=== PATIENT | female | born 1955 | race Caucasian/White ===

== ENCOUNTER 2019-06-27 06:42 | Outpatient (CLI) | payer MEDICARE, MEDICAID, SELFPAY ==
[2019-06-27 07:17] LABS: Basophils Percent Auto 0.6 % (0.2-1.2); Eosinophils Absolute Auto 0.1 K/mm3 (0-0.3); Eosinophils Percent Auto 1.1 % (0-4.4); Hematocrit 44.3 % (37.0-47.0); Immature Granulocyte Absolute 0.09 K/mm3 (0.00-0.031); Immature Granulocyte Percent A 1.4 % (0-0.5); Lymphocytes Absolute Auto 0.95 K/mm3 (0.9-3.2); Lymphocytes Percent Auto 14.9 % (18.3-44.2); Mean Corpuscular HGB Conc 31.6 g/dl (32-36); Mean Corpuscular Hemoglobin 30.3 pg (26-34); Mean Corpuscular Volume 95.9 fl (80-100); Mean Platelet Volume 8.7 fl (7.4-10.4); Monocytes Absolute Auto 0.4 K/mm3 (0.1-0.6); Monocytes Percent Auto 6.9 % (2.6-8.5); Neutrophils Absolute Auto 4.8 K/mm3 (1.3-6.7); Neutrophils Percent Auto 75.1 % (45.5-73.1); Platelet Count Result 182 k/mm3 (150-375); Red Blood Count 4.62 M/mm3 (4.2-5.4); Red Cell Distribution Width 16.3 % (11.5-14.5); White Blood Count 6.4 K/mm3 (4.5-10.0)
[2019-06-27 07:30] LABS: Blood Urea Nitrogen 16 mg/dL (7-17); Calcium 9.2 mg/dL (8.4-10.2); Carbon Dioxide 32 mmol/L (22-30); Chloride 101 mmol/L (98-107); Estimated Glomerular Filt Rate 56; Glucose 109 mg/dL (65-105); Potassium 4.6 mmol/L (3.4-5.0); Sodium 139 mmol/L (137-145)
== END 2019-06-27 06:43 | disposition home or self-care (01) ==
PROVIDERS: PCP Internal Medicine; Visit Provider Nurse Practitioner
DX: I10 Essential (primary) hypertension (principal)
CPT/HCPCS: 36415; 80048; 85025

== ENCOUNTER 2019-06-30 12:05 | Outpatient (CLI) | payer MEDICARE, MEDICAID, SELFPAY ==
--- NOTE | 2019-06-30 | ECG_ITS ---
Measurements Intervals [place] Rate: 104 P: 79 NC: 202 QRS: 10 QRSD: 91 T: 78 QT: 355 QTc: 468 Interpretive Statements SINUS TACHYCARDIA VENTRICULAR PREMATURE COMPLEXES DELAYED PRECORDIAL R/S TRANSITION CONSIDER INFERIOR INFARCT, AGE INDETERMINATE BORDERLINE T WAVE ABNORMALITY- LATERAL LEADS BASELINE ARTIFACT- V4-V5 ABNORMAL ECG Electronically Signed On 06-30-2019 13:02:56 GRADES [address] D.O.
== END 2019-06-30 12:06 | disposition home or self-care (01) ==
LOC: ANHCARD 12:11
PROVIDERS: PCP Internal Medicine; Visit Provider Nurse Practitioner
DX: R00.0 Tachycardia, unspecified (principal); R94.31 Abnormal electrocardiogram [ECG] [EKG]
CPT/HCPCS: 93005

== ENCOUNTER 2019-07-07 15:49 | Emergency (ER) | payer MEDICARE, MEDICAID, SELFPAY ==
--- NOTE | ~2019-07-07 | XR_ITS ---
EXAMINATION: XR chest 2V EXAM DATE: 07/07/2019 16:26 INDICATION: Shortness of breath and cough. COPD. TECHNIQUE: Frontal and lateral projections of the chest obtained and reviewed. Comparison is made to prior examination from 12/26/2015. FINDINGS: Severe chronic hyperinflation. Cardiomediastinal silhouette is normal. No confluent consol idation, pneumothorax or pleural effusion suspected. Mild thoracic spondylosis. IMPRESSION: 1. Hyperinflation Reviewed, dictated and finalized at location A. PEEL OPERATOR IMPRESSION: 1. Hyperinflation
[2019-07-07 15:57] VITALS: BP 128/72; PULSE 112; RESP 19; TEMP 36.6; O2SAT 96
--- NOTE | 2019-07-07 16:05 | ECG_ITS ---
Measurements Intervals [place] Rate: 111 P: 85 IA: 177 QRS: 36 QRSD: 91 T: 76 QT: 301 QTc: 411 Interpretive Statements SINUS TACHYCARDIA ATRIAL PREMATURE COMPLEX POSSIBLE RIGHT ATRIAL ENLARGEMENT INCOMPLETE RIGHT BUNDLE BRANCH BLOCK BASELINE ARTIFACT- I, AVR, AVL, V1, V4-V6 ABNORMAL ECG Electronically Signed On 07-07-2019 16:09:43 VEHICLE DELIVERY WORKER by Josh Lane D.O.
[2019-07-07 16:27] LABS: Basophils Absolute Auto 0.1 K/mm3 (0.0-0.1); Basophils Percent Auto 0.6 % (0.2-1.2); Hematocrit 43.6 % (37.0-47.0); Hemoglobin 14.1 g/dL (12.0-15.0); Immature Granulocyte Absolute 0.47 K/mm3 (0.00-0.031); Immature Granulocyte Percent A 5.4 % (0-0.5); Lymphocytes Absolute Auto 0.65 K/mm3 (0.9-3.2); Lymphocytes Percent Auto 7.5 % (18.3-44.2); Mean Corpuscular HGB Conc 32.3 g/dl (32-36); Mean Corpuscular Hemoglobin 30.4 pg (26-34); Monocytes Absolute Auto 0.4 K/mm3 (0.1-0.6); Monocytes Percent Auto 4.2 % (2.6-8.5); Neutrophils Absolute Auto 7.1 K/mm3 (1.3-6.7); Neutrophils Percent Auto 82.3 % (45.5-73.1); Platelet Count Result 293 k/mm3 (150-375); Red Blood Count 4.64 M/mm3 (4.2-5.4); Red Cell Distribution Width 15.7 % (11.5-14.5); White Blood Count 8.7 K/mm3 (4.5-10.0)
[2019-07-07 16:39] LABS: Blood Urea Nitrogen 17 mg/dL (7-17); Calcium 9.1 mg/dL (8.4-10.2); Carbon Dioxide 28 mmol/L (22-30); Chloride 104 mmol/L (98-107); Estimated Glomerular Filt Rate > 60; Glucose 155 mg/dL (65-105); Potassium 3.4 mmol/L (3.4-5.0); Sodium 140 mmol/L (137-145)
[2019-07-07 17:00] VITALS: BP 136/77; PULSE 103; RESP 16; O2SAT 98
--- NOTE | 2019-07-07 17:10 | ED.SOB ---
HPI - SOB/Dyspnea General Chief Complaint: Shortness of Breath/Dyspnea Stated Complaint: difficulty breathing Time Seen by Provider: 07/07/19 17:10 Source: patient and RN notes reviewed Mode of arrival: other Limitations: no limitations History of Present Illness HPI Narrative: Pt is a 63 y/o female who presents to the ED with c/o SOB that began 10 days ago (06/27/19). Pt has a hx of COPD. Pt states that she has been sick for two week. Pt went to her PCP last week and received abx and Prednisone. Pt notes that she went to her PCP twice and her long lines operator once. She states that she saw her long lines operator on (06/30/19). Pt also reports wheezing and cough, but denies CP. 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, no drink, smoke, hx of esophageal stretching, hld, htn, MD elicited complaint: shortness of breath Pertinent past history: COPD Onset (ago): day(s) Related Data Home Medications Medication Instructions Recorded Confirmed aspirin 81 mg tablet,delayed 81 mg PO DAILY 06/02/19 07/05/19 release budesonide-formoterol HFA 160 2 puff INHALATION Q12H 06/02/19 07/05/19 mcg-4.5 mcg/actuation aerosol inhaler cyclobenzaprine 5 mg tablet 5 mg PO BID PRN tablet 06/02/19 07/05/19 gabapentin 300 mg capsule 300 mg PO TID 06/02/19 07/05/19 loratadine 10 mg tablet 10 mg PO DAILY 06/02/19 07/05/19 tiotropium bromide 18 mcg capsule 1 cap INHALATION DAILY 06/02/19 07/05/19 with inhalation device guaifenesin 100 mg/5 mL oral liquid 200 mg PO Q4H PRN 06/30/19 07/05/19 Allergies Allergy/AdvReac Type Severity Reaction Status Date / Time meperidine Allergy Unknown Itching Verified 06/28/19 15:38 Penicillins Allergy Unknown Anaphylaxis Verified 06/28/19 15:38 MEPERIDINE HCL Allergy Unknown ITCHING Uncoded 11/02/18 12:21 [facility] Past Medical History Medical History (Updated 07/07/19 @ 18:09 by Jose Cortes MD) Anxiety Collagen vascular disease Complex sleep apnea syndrome COPD (chronic obstructive pulmonary disease) Demyelinating disease Encounter for screening for other metabolic disorders Gastroesophageal reflux disease without esophagitis History of tobacco abuse Hyperlipidemia due to dietary fat intake Hyperlipidemia, unspecified Infectious colitis Mass in neck Muscle cramps Oxygen dependent Thrush Tobacco abuse Social History Social History (Updated 07/05/19 @ 09:53 by Margarita Marin [facility]) Smoking status: Current every day smoker Tobacco type: cigarettes Alcohol intake: never Exam Narrative: Exam Narrative: General appearance: Well-developed, well-nourished Skin: Normal color Head: Normocephalic, nontraumatic Eyes: Clear conjunctiva ENT: Oropharynx normal, ears normal, nose normal Neck: Supple, nontender Chest and respiratory: Airway patent, no respiratory distress, no accessory muscle use few scattered rhonchi and wheezing bilaterally mainly during expiration Heart: Regular rate/rhythm Abdomen: Soft, nontender, no organomegaly, quiet bowel sounds Vascular: Normal peripheral pulses, normal capillary refill. Musculoskeletal: Normal range of motion, nontender back Neurologic: Alert and oriented ?3, MOBILE QA TESTER is normal as tested, no gross motor deficit Course Course Emergency Course: Improving Vital Signs Vital signs: Vital Signs Temperature 36.6 C 07/07/19 15:57 Pulse Rate 112 H 07/07/19 15:57 Respiratory Rate 19 07/07/19 15:57 Blood Pressure 128/72 07/07/19 15:57 Pulse Oximetry 96 07/07/19 15:57 Temperature 36.6 C 07/07/19 15:57 Pulse Rate 112 H 07/07/19 15:57 Respiratory Rate 19 07/07/19 15:57 Blood Pressure 128/72 07/07/19 15:57 Pulse Oximetry 96 07/07/19 15:57 MDM - SOB/Dysp
[2019-07-07 17:34] LABS: Alveolar/Arterial O2 Gradient 75.1 mmHg; Base Excess ABG 3.6 mEq/l (+/-2.0); Fractional Inspired Oxygen 36 %; HCO3 ABG 29.5 mEq/l (22.0-26.0); Oxygen Content ABG 19.6 %vol (16.0-22.0); Oxygen Saturation ABG 98.4 % (95.0-100.0); Oxyhemoglobin 96.6 % THb (90.0-100.0); PCO2 ABG 49.9 mmHg (35.0-45.0); PO2 ABG 123.7 mmHg (80.0-100.0); PO2 FiO2 Ratio Arterial Blood 3.44 %; Total Hemoglobin 14.3 g/dL (12.0-18.0)
[2019-07-07 17:35] LABS: Device NASAL CANNULA; Site Drawn RIGHT BRACHIAL
[2019-07-07 18:00] VITALS: BP 133/80; PULSE 103; RESP 20; O2SAT 97
[2019-07-07 19:00] VITALS: BP 129/72; PULSE 92; RESP 16; O2SAT 94
== END 2019-07-07 19:00 | disposition home or self-care (01) ==
PROVIDERS: Emergency Medicine; Emergency Provider Emergency Medicine; PCP Internal Medicine
DX: J10.1 Influenza due to other identified influenza virus with other respiratory manifestations (principal); J44.9 Chronic obstructive pulmonary disease, unspecified; M35.9 Systemic involvement of connective tissue, unspecified; G47.39 Other sleep apnea; G37.9 Demyelinating disease of central nervous system, unspecified; K21.9 Gastro-esophageal reflux disease without esophagitis; E78.5 Hyperlipidemia, unspecified; Z99.81 Dependence on supplemental oxygen; F17.210 Nicotine dependence, cigarettes, uncomplicated
CPT/HCPCS: 36415; 36600; 71046; 80048; 82805; 85025; 87804; 93005; 99284

== ENCOUNTER 2019-07-19 07:50 | Outpatient (CLI) | payer MEDICARE, MEDICAID, SELFPAY ==
--- NOTE | ~2019-07-19 | US_ITS ---
EXAMINATION: US art doppler w press DAVINA BEJARANO EXAM DATE: 07/19/2019 08:55 INDICATION: Hypertension, bilateral leg pain. Peripheral arterial disease. TECHNIQUE: Segmental pressures and plethysmographic and Doppler waveforms of the brachial and lower e xtremity arteries were obtained. There is no prior study for comparison. FINDINGS: Right and left brachial artery pressures of 162 mm Hg and 165 mm Hg, respectively, are concordant (no rmal difference <= 30 mmHg). The right and left thigh-brachial pressure indices are 1.12, 1.10, resp ectively (normal > 1.2). RIGHT LEG: The ankle-brachial index (ALVAREZ) is 1.13 (normal >= 0.9-1). The great toe-brachial index (TBI) is 0.98 (normal >= 0.65). The lower extremity ratios, segmental pressure gradients as follows; Proximal superficial femoral artery:- 1.12 (185 mmHg). Distal superficial femoral artery: ----- 1.12 (184 mmHg). Popliteal: 1.07 (176 mmHg). Dorsalis pedis: 1.05 (173 mmHg). Posterior tibial: 1.13 (186 mmHg). (Normal gradients <= 20-30 mmHg between adjacent levels on the same leg or the same levels on the two legs). Arterial waveforms are monophasic DP, otherwise biphasic. LEFT LEG: The ankle-brachial index (ALVAREZ) is 1.05 (normal >= 0.9-1). The great toe-brachial index (TBI) is 0.86 (normal >= 0.65). The lower extremity ratios, segmental pressure gradients as follows; Proximal superficial femoral artery:- 1.10 (181 mmHg). Distal superficial femoral artery: ----- 1.11 (183 mmHg). Popliteal: 1.12 (84 mmHg). Dorsalis pedis: 0.99 (164 mmHg). Posterior tibial: 1.05 (174 mmHg). (Normal gradients <= 20-30 mmHg between adjacent levels on the same leg or the same levels on the two legs). Arterial waveforms are biphasic. IMPRESSION: 1. Right ankle-brachial index 1.13, normal. 2. Left ankle-brachial index 1.05, normal. 3. Segmental pressures as above. Reviewed, dictated and finalized at location A.
== END 2019-07-19 07:51 | disposition home or self-care (01) ==
PROVIDERS: PCP Internal Medicine; Visit Provider Psychiatry & Neurology Neurology
DX: I73.9 Peripheral vascular disease, unspecified (principal)
CPT/HCPCS: 93923

== ENCOUNTER 2019-11-23 14:18 | Outpatient (CLI) | payer MEDICARE, MEDICAID, SELFPAY ==
[2019-11-23 16:20] LABS: Rheumatoid Factor 22.4 IU/ML (<12)
[2019-11-27 08:03] LABS: ANA Cascade Screen Negative (Negative)
[2019-11-27 21:08] LABS: Alpha-1-Antitrypsin, QN 160 mg/dL (83-199)
[2019-11-29 19:28] LABS: Immunoglobulin G, Serum 1196 mg/dL (600-1540); Immunoglobulin G1 810 mg/dL (382-929); Immunoglobulin G2 182 mg/dL (241-700); Immunoglobulin G3 38 mg/dL (22-178); Immunoglobulin G4 18.4 mg/dL (4.0-86.0)
== END 2019-11-23 14:19 | disposition home or self-care (01) ==
PROVIDERS: PCP Internal Medicine; Visit Provider Internal Medicine Critical Care Medicine
DX: M35.9 Systemic involvement of connective tissue, unspecified (principal); Z87.891 Personal history of nicotine dependence; J44.9 Chronic obstructive pulmonary disease, unspecified
CPT/HCPCS: 36415; 82103; 82104; 82784; 82787; 86038; 86430

== ENCOUNTER 2019-12-05 08:03 | Outpatient (CLI) | payer MEDICARE, MEDICAID, SELFPAY ==
--- NOTE | ~2019-12-05 | CT_ITS ---
EXAMINATION: CT lung screening DATE: 12/05/2019 08:50 INDICATION: Personal history of nicotine dependence, current smoker with 50 pack year history TECHNIQUE: Computed tomography (CT) of the chest was performed without intravenous contrast. The dose -length product (DLP) was 63.93 mGy-cm. 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 COMPARISON: None FINDINGS: There is moderate to severe emphysema. Scarring is present in the lung apices. There is a 3 mm right upper lobe nodule on image 76. There is a 5 mm nodule of the left upper lobe on image 44. T here is no pleural effusion or pneumothorax. Mucous plugging is noted in the right middle lobe. No fo taylor airspace opacities are identified. No pathologically enlarged thoracic lymph nodes are identified . The heart size is normal. Calcified pulmonary nodules and calcified mediastinal lymph nodes are con sistent with old granulomatous disease. IMPRESSION: 1. Lung-RADS category 2: Benign appearance or behavior. Continue annual screening with noncontrast lo w-dose chest CT in 12 months. Reviewed, dictated and finalized at location A. IMPRESSION: 1. Lung-RADS category 2: Benign appearance or behavior. Continue annual screeni ng with noncontrast low-dose chest CT in 12 months.
== END 2019-12-05 08:04 | disposition home or self-care (01) ==
PROVIDERS: PCP Internal Medicine; Visit Provider Internal Medicine Critical Care Medicine
DX: Z12.2 Encounter for screening for malignant neoplasm of respiratory organs (principal); Z87.891 Personal history of nicotine dependence
CPT/HCPCS: G0297

== ENCOUNTER 2019-12-14 12:43 | Outpatient (CLI) | payer MEDICARE, MEDICAID, SELFPAY ==
[2019-12-14 13:00] VITALS: PULSE 90; O2SAT 96
[2019-12-14 13:05] VITALS: PULSE 111; O2SAT 86
[2019-12-14 13:10] VITALS: PULSE 114; O2SAT 87
[2019-12-14 13:15] VITALS: PULSE 113; O2SAT 90
[2019-12-14 13:30] VITALS: PULSE 92; O2SAT 95
--- NOTE | 2019-12-14 15:14 | HOMEO2EVAL ---
Home Oxygen Evaluation RC: Home Oxygen (O2) Evaluation Start: 12/14/19 15:11 Freq: Status: Active Protocol: RPE Activity Type Activity Date Activity User E-Sign Co-Sign Detail Recorded Client Recorded Date Recorded By Document 12/14/19 13:00 [email or web address] [email or web address] 12/14/19 15:14 DJO Document 12/14/19 13:05 [email or web address] [email or web address] 12/14/19 15:14 DJO Document 12/14/19 13:10 DJO [email or web address] 12/14/19 15:14 DJO Document 12/14/19 13:15 [email or web address] [email or web address] 12/14/19 15:14 DJO Document 12/14/19 13:30 [email or web address] [email or web address] 12/14/19 15:14 DJO 12/14/19 12/14/19 12/14/19 13:00 13:05 13:10 Home O2 Evaluation Test Phase Resting Exercise Exercise Oxygen Delivery Room Air Room Air Nasal Cannula Oxygen Flow Rate (L/min) 1 Pulse Oximetry (90-100 %) 96 86 L 87 L Pulse Rate (60-100 beats/min) 90 111 H 114 H Ambulation Distance (feet) Treatment Charges O2 Evaluation 12/14/19 12/14/19 13:15 13:30 Home O2 Evaluation Test Phase Exercise Resting Oxygen Delivery Nasal Cannula Room Air Oxygen Flow Rate (L/min) 2 Pulse Oximetry (90-100 %) 90 95 Pulse Rate (60-100 beats/min) 113 H 92 Ambulation Distance (feet) 800 Treatment Charges
--- NOTE | 2019-12-19 15:25 | WPDPFTINT ---
PFT Interpretation PFT Interpretation: DOS: 12/14/2019 REQUESTING: Dr. Tracey REASON FOR TESTING: COPD PULMONARY FUNCTION TESTS Results are reliable and reproducible. Spirometry: FEV1 is 60%, moderately decreased, 1.49 L. FVC is 90% normal. Decreased FEV1% consistent with airflow obstruction. . There is a 14% increase in FEV1 with bronchodilator, 200 ml, which is significant. Lung volumes: Total lung capacity 107% normal. RV/TLC increased 48% and consistent with air trapping. Airway resistance increased 336%. Diffusion: DLCO moderately reduced 35%. Flow volume loop: Scooping of the expiratory limb. IMPRESSION: Moderate obstructive ventilatory impairment with good response to bronchodilator, air trapping, moderate diffusion impairment. This is consistent with COPD. Melissa Tracey MD
== END 2019-12-14 12:44 | disposition home or self-care (01) ==
PROVIDERS: PCP Internal Medicine; Visit Provider Internal Medicine Critical Care Medicine
DX: J44.9 Chronic obstructive pulmonary disease, unspecified (principal); R94.2 Abnormal results of pulmonary function studies
CPT/HCPCS: 94060; 94618; 94726; 94729

== ENCOUNTER 2019-12-30 07:05 | Outpatient (CLI) | payer MEDICARE, MEDICAID, SELFPAY ==
[2019-12-30 07:29] LABS: Basophils Percent Auto 0.8 % (0.2-1.2); Eosinophils Absolute Auto 0.1 K/mm3 (0-0.3); Eosinophils Percent Auto 1.8 % (0-4.4); Hematocrit 40.8 % (37.0-47.0); Hemoglobin 13.2 g/dL (12.0-15.0); Immature Granulocyte Absolute 0.02 K/mm3 (0.00-0.031); Immature Granulocyte Percent A 0.4 % (0-0.5); Lymphocytes Absolute Auto 1.31 K/mm3 (0.9-3.2); Lymphocytes Percent Auto 26.4 % (18.3-44.2); Mean Corpuscular HGB Conc 32.4 g/dl (32-36); Mean Corpuscular Hemoglobin 29.3 pg (26-34); Mean Corpuscular Volume 90.7 fl (80-100); Mean Platelet Volume 9.6 fl (7.4-10.4); Monocytes Absolute Auto 0.4 K/mm3 (0.1-0.6); Monocytes Percent Auto 7.5 % (2.6-8.5); Neutrophils Absolute Auto 3.1 K/mm3 (1.3-6.7); Neutrophils Percent Auto 63.1 % (45.5-73.1); Platelet Count Result 181 k/mm3 (150-375); Red Cell Distribution Width 14.6 % (11.5-14.5)
[2019-12-30 07:46] LABS: Alanine Aminotransferase 11 U/L (4-35); Albumin Level 3.8 g/dL (3.5-5.1); Alkaline Phosphatase 97 U/L (38-126); Anion Gap 3 mmol/L (8-16); Aspartate Amino Transferase 22 U/L (14-36); Bilirubin,Total 0.4 mg/dL (0.2-1.3); Blood Urea Nitrogen 17 mg/dL (7-17); Carbon Dioxide 30 mmol/L (22-30); Chloride 105 mmol/L (98-107); Cholesterol 182 mg/dL (0-200); Estimated Glomerular Filt Rate 55; Glucose 105 mg/dL (65-105); HDL Direct 53 mg/dL; Potassium 4.7 mmol/L (3.4-5.0); Sodium 138 mmol/L (137-145); Triglycerides 125 mg/dL (<150)
[2019-12-30 07:58] LABS: LDL Cholesterol Direct 97 mg/dL
== END 2019-12-30 07:06 | disposition home or self-care (01) ==
PROVIDERS: PCP Internal Medicine; Visit Provider Nurse Practitioner
DX: I10 Essential (primary) hypertension (principal); E78.5 Hyperlipidemia, unspecified
CPT/HCPCS: 36415; 80053; 80061; 85025

== ENCOUNTER 2020-01-09 01:35 | Outpatient (CLI) | payer MEDICARE, MEDICAID, SELFPAY ==
[2020-01-09 16:32] LABS: SARS-CoV-2 RNA PCR Negative
== END 2020-01-09 01:36 | disposition home or self-care (01) ==
LOC: ANHCOVIDDT 01:36
PROVIDERS: PCP Internal Medicine; Visit Provider Internal Medicine Critical Care Medicine
DX: R09.89 Other specified symptoms and signs involving the circulatory and respiratory systems (principal); Z20.828 Contact with and (suspected) exposure to other viral communicable diseases
CPT/HCPCS: 87635; C9803; U0003

== ENCOUNTER 2020-01-11 08:04 | Outpatient (CLI) | payer MEDICARE, MEDICAID, SELFPAY ==
--- NOTE | 2020-01-17 05:00 | SLEEP_ITS ---
Basic Nocturnal Polysomnogram DATE OF STUDY: 01/11/2020 ORDERING PHYSICIAN: Melissa Tracey MD. REASON FOR THIS STUDY: Central sleep apnea. HISTORY: This patient is a 64-year-old female, 68 inches tall, weighing 126 pounds with a body mass index of 19.2, with complex sleep apnea diagnosed in 2006, and was treated with ASV. She lost her machine in 2009, before moving to [place]. She has not had treatment in over 10 years. She complains of snoring, cannot sleep on her back due to gasping for breath. Therefore, only sleeps on her side. Bedtime is around 10 a.m. and she wakes every 2 or so hours to go to the bathroom. She wakes for the day at 6:30 a.m., rarely feeling refreshed. She has dreams. Her legs are active all night with cramping and kicking. She drinks 2 cups of coffee in the morning, denies taking naps, feels worse, not using her PAP therapy. She snores without it. 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 She has multiple sclerosis and has a neurologist. The patient does awaken from sleep feeling short of breath, awakens frequently with nightmares belching or coughing. She snores frequently if she is on her back. It is not loud enough that others complain. She frequently has trouble sleeping with a cold, occasionally wakes up gasping for breath during the night, frequently has breathing problems observed by others. She denies sweating excessively at night or noticing her heart pounding or beating irregularly at night. She occasionally falls asleep during the day, occasionally involuntarily, never while driving or during physical effort. She does not have loss of muscle tone with strong emotion. She does not have daytime difficulties due to excessive sleepiness nor does she feel paralyzed on waking or falling asleep. She occasionally has vivid dreamlike scenes on sleep onset or waking. She is never afraid to go to sleep. She frequently has nightmares. She frequently remembers her dreams. She does not have racing thoughts, feelings of sadness, depression or anxiety. She constantly has muscular tension and notices parts of her body jerking and constantly kicks at night. She constantly has crawly achy feelings in her legs and has leg pain at night. She rarely has morning jaw pain. She occasionally grinds her teeth during sleep. She constantly is bothered by pain during the day, constantly is awakened by pain during the night, constantly wakes up feeling stiff in the morning with sore achy muscles and pain in the neck and spine. She has fatigue, nightmares, and feels tension. She takes antacids regularly. Normal bedtime is 10 p.m., falling asleep quickly, typically waking 3-7 times at night for a trip to the bathroom. She will also walk if she has cramps in her legs, use the bathroom and sometimes eat a snack. She wakes in the morning at 6:30 a.m.. She sleeps with her dog in the bed. She is drowsy in the morning for 2 hours and feels better in the afternoon and evening than in the morning. MEDICAL COMORBIDITIES: Anxiety, COPD, multiple sclerosis, gastroesophageal reflux disease, hyperlipidemia. MEDICATIONS: 1. Gabapentin 300 mg 4 times a day. 2. Cyclobenzaprine 5 mg 3 times a day. 3. Lovastatin 40 mg a day. 4. Omeprazole 40 mg a day. 5. Vesicare 10 mg daily. 6. Sertraline 50 mg day. 7. Hydrochlorothiazide 12.5 mg a day for hypertension. 8. B12 500 mg a day. 9. Ecotrin 81 mg a day. HABITS: Tobacco 1 pack a day. Caffeine, 2 coffees and 2 cokes daily. No alcohol. ADDITIONAL MEDICATIONS: 1. Symbicort 160/4.5, two puffs twice a day. 2. Spiriva 1 puff a day. 3. Claritin 24 hour 1 tablet daily. 4. Ventolin HFA 2 puffs q.4 hours p.r.n. shortness of breath. DESCRIPTION OF THE STUDY: On the Ep[facility]
== END 2020-01-11 08:05 | disposition home or self-care (01) ==
LOC: ANHCSM 08:05
PROVIDERS: PCP Internal Medicine; Visit Provider Internal Medicine Critical Care Medicine
DX: G47.31 Primary central sleep apnea (principal)
CPT/HCPCS: 95810

== ENCOUNTER 2020-02-13 06:40 | Outpatient (CLI) | payer MEDICARE, MEDICAID, SELFPAY ==
--- NOTE | ~2020-02-13 | MR_ITS ---
. EXAMINATION: MR lumbar spine wo con DATE: 02/13/2020 07:36 INDICATION: Lumbago. Lumbar radiculopathy. TECHNIQUE: Magnetic resonance imaging (MRI) of the lumbar spine was performed without intravenous con trast. Sequences included sagittal T2-weighted FSE, sagittal T2-weighted FS FSE, sagittal T1-weighted FSE, and axial T2-weighted FSE. COMPARISON: Lumbar spine MRI 11/21/2017 FINDINGS: Bone alignment is normal. There are Schmorl's nodes at multiple levels. There is mildly dec reased disc height at L1-L2. The distal spinal cord signal intensity is normal. The conus medullaris is at L1. There is moderate atrophy of right kidney and mild atrophy of left kidney. There is a 1.0 c m hemorrhagic cyst in left kidney. There is a 9 mm cyst in right kidney. The following disc levels ar e specifically discussed: L1-L2: The disc is bulging. There is mild bilateral facet joint osteoarthritis. There is mild right n eural foraminal stenosis. There is mild central canal stenosis. L2-L3: The disc is bulging with superimposed right foraminal extrusion. There is mild bilateral facet joint osteoarthritis. There is mild bilateral neural foraminal stenosis. There is mild central canal stenosis. L3-L4: The disc is bulging. There is mild bilateral facet joint osteoarthritis. There is mild bilater al neural foraminal stenosis. There is mild central canal stenosis. L4-L5: The disc is mildly bulging. There is mild bilateral facet joint osteoarthritis. There is mild bilateral neural foraminal stenosis. There is no central canal stenosis. L5-S1: The disc does not extend beyond the endplate margin. There is mild bilateral facet joint osteo arthritis. There is no neural foraminal stenosis. There is no central canal stenosis. IMPRESSION: 1. Mild lumbar spondylosis, stable from 11/21/2017. Reviewed, dictated and finalized at location A.
== END 2020-02-13 06:41 | disposition home or self-care (01) ==
PROVIDERS: PCP Internal Medicine; Visit Provider Nurse Practitioner Family
DX: M54.5 Low back pain (principal); M47.26 Other spondylosis with radiculopathy, lumbar region
CPT/HCPCS: 72148

== ENCOUNTER → 2020-02-22 08:59 | Outpatient (CLI) | payer MEDICARE, MEDICAID, SELFPAY ==
--- NOTE | ~2020-02-22 | DEXA_ITS ---
Bone Density Report Name: Melyssa Mccall Age: 64 Sex: Female Ethnicity: White Date of : 1955 Indication: postmenopausal; screening for osteoporosis; height loss; hysterectomy; rheumatoid arthritis; Referring Provider: Rosalind Chavez Study: Bone densitometry was performed. Exam Date: February 22, 2020 Accession number: [id number] Bone Density: Region BMD T-score Z-score Classification AP Spine (L1-L4) 0.841 -1.9 0.0 Osteopenia Femoral Neck (Left) 0.655 -1.7 -0.1 Osteopenia Total Hip (Left) 0.706 -1.9 -0.6 Osteopenia Femoral Neck (Right) 0.594 -2.3 -0.7 Osteopenia Total Hip (Right) 0.681 -2.1 -0.8 Osteopenia Total Hip Mean 0.694 -2.0 -0.7 Osteopenia World Health Organization criteria for BMD impression classify patients as: Normal (T-score at or above -1.0), Osteopenia (T-score between -1.0 and -2.5), or Osteoporosis (T-score at or below -2.5). 10-year Fracture Risk(1): Major Osteoporotic Fracture 15% Hip Fracture 5.0% Reported Risk Factors: [place] (), Neck BMD=0.594, BMI=20.2, smoking, rheumatoid arthritis (1) FRAX(R) Version 3.08. Fracture probability calculated for an untreated patient. Fracture probability may be lower if the patient has received treatment. Clinical Information Provided by Patient: Smokes Has rheumatoid arthritis Has the following medical conditions: Hysterectomy, COPD Patient maximum height was 68 Menopause Age: 16 No regular weight bearing exercise Drinks caffeinated beverages Onset of menses at age 9 Number of children 1 Impression: The patient has low bone mass, based on the Right Femoral Neck T-score. The patient has an estimated ten-year risk of hip fracture of 5% and an estimated ten-year risk of major fracture of 15%, based on the WHO FRAX algorithm. The patient has risk factors, including: smoking. Discussion: BONE DENSITY IS LOW AT ONE OR MORE SKELETAL SITES. THE PATIENT'S BMD AND CLINICAL RISK FACTORS CONTRIBUTE TO THIS PATIENT'S INCREASED RISK OF FRACTURE. This patient's lowest T-score is low at one or more skeletal sites. It meets the World Health Organization's (WHO) criteria for ?low bone mass? (T-score between -1.0 and -2.5). The patient's 10-year risk of hip fracture as calculated by FRAX exceeds the threshold where pharmacological therapy is recommended by the National Osteoporosis Foundation (NOF). However, all treatment decisions require clinical judgment and consideration of individual patient factors, including patient preferences, comorbidities, previous drug use, risk factors not captured in the FRAX model (e.g., frailty, falls, vitamin D deficiency, increased bone turnover, interval significant decline in bone density) and possible under or overestimation of fracture risk by FRAX. The patient should follow a healthful lifestyle
== END ==
PROVIDERS: Visit Provider Nurse Practitioner
DX: Z78.0 Asymptomatic menopausal state (principal); M85.88 Other specified disorders of bone density and structure, other site; M85.852 Other specified disorders of bone density and structure, left thigh; M85.851 Other specified disorders of bone density and structure, right thigh
CPT/HCPCS: 77080

== ENCOUNTER 2020-02-28 08:08 | Outpatient (CLI) | payer MEDICARE, MEDICAID, SELFPAY ==
--- NOTE | ~2020-02-28 | MM_ITS ---
EXAMINATION: MM screening deuce BI w vicki HISTORY: Screening mammogram, family history of breast cancer in her sister. TECHNIQUE: Craniocaudal and mediolateral oblique 3-D tomosynthesis images were obtained and synthetic 2-D images were generated. CAD analysis was submitted and interpreted. COMPARISON: No prior mammogram is available for comparison at this institution. BREAST PARENCHYMAL COMPOSITION: There are scattered areas of fibroglandular density. FINDINGS: Scattered benign-appearing calcifications are present. There is no evidence of suspicious m ass, calcification, or architectural distortion to suggest malignancy in either breast. IMPRESSION: 1. No mammographic evidence of malignancy. 2. Recommend routine screening mammography in one year. BI-RADS Category 2: Benign finding(s). Reviewed, dictated and finalized at location A.
== END 2020-02-28 08:09 | disposition home or self-care (01) ==
PROVIDERS: PCP Internal Medicine; Visit Provider Nurse Practitioner
DX: Z12.31 Encounter for screening mammogram for malignant neoplasm of breast (principal)
CPT/HCPCS: 77063; 77067

== ENCOUNTER 2020-03-10 01:24 | Outpatient (CLI) | payer MEDICARE, MEDICAID, SELFPAY ==
[2020-03-10 22:26] LABS: SARS-CoV-2 RNA PCR Negative
== END 2020-03-10 01:25 | disposition home or self-care (01) ==
LOC: ANHCOVIDDT 01:24
PROVIDERS: Internal Medicine Critical Care Medicine; PCP Internal Medicine; Visit Provider Internal Medicine Gastroenterology
DX: Z01.818 Encounter for other preprocedural examination (principal); Z20.828 Contact with and (suspected) exposure to other viral communicable diseases
CPT/HCPCS: 87635; C9803; U0003

== ENCOUNTER 2020-03-13 02:27 | Day surgery (SDC) | payer MEDICARE, MEDICAID, SELFPAY ==
[2020-03-07 14:41] VITALS: BMI 20.4
--- NOTE | 2020-03-13 07:07 | WPDANESEPPF ---
Anes - Initial Pre Proc Eval Procedure: Operation Date: 03/13/20 11:30 Proposed Procedures p Esophagogastroduodenoscopy & Screening Colonoscopy - Channing Ryan MD Date/Time: 03/13/20 07:07 Surgeon: Channing Ryan MD Pre Op Diagnosis: Family History Of Colon Cancer, Dysphagia Patient Data Age: 64 Gender: F Height: 1.68 m Weight: 57.3 kg Allergies Allergy/AdvReac Type Severity Reaction Status Date / Time Penicillins Allergy Severe Anaphylaxis Verified 03/13/20 10:40 meperidine Allergy Unknown Itching Verified 03/13/20 10:40 MEPERIDINE HCL Allergy Unknown ITCHING Uncoded 03/13/20 10:40 Home Medications Medication Instructions Recorded Confirmed Type aspirin 81 mg tablet,delayed 81 mg PO DAILY 06/02/19 03/07/20 History release loratadine 10 mg tablet 10 mg PO DAILY 06/02/19 03/07/20 History albuterol sulfate 90 mcg/actuation 1 inhalation INHALATION Q4H PRN 06/28/19 03/07/20 Rx aerosol inhaler #8.5 gm omeprazole 40 mg capsule,delayed 40 mg PO DAILY #90 cap 10/10/19 03/07/20 Rx release lovastatin 40 mg tablet 40 mg PO DAILY #90 tablet 12/12/19 03/07/20 Rx ascorbate calcium (vitamin C) 500 500 mg PO DAILY 01/05/20 03/07/20 History mg tablet cyclobenzaprine 5 mg tablet 5 mg PO TID PRN tablet 01/05/20 03/07/20 History gabapentin 300 mg capsule 300 mg PO QID cap 01/05/20 03/07/20 History mecobalamin (vitamin B12) 1,000 1,000 mcg SUBLINGUAL DAILY 01/05/20 03/07/20 History mcg disintegrating tablet,sublingual varenicline 1 mg tablet 1 mg PO BID #56 tablet 01/05/20 03/07/20 Rx tiotropium bromide 18 mcg capsule 1 cap INHALATION DAILY #30 cap 01/06/20 03/07/20 Rx with inhalation device budesonide-formoterol HFA 160 2 puff INHALATION Q12H #10.2 g 02/10/20 03/07/20 Rx mcg-4.5 mcg/actuation aerosol inhaler sertraline 100 mg tablet 100 mg PO DAILY #90 tablet 02/10/20 03/07/20 Rx solifenacin 10 mg tablet 5 mg PO DAILY tablet 02/10/20 03/07/20 History varenicline 0.5 mg (11)-1 mg (42) See Rx Instructions PO PER PKG DIR 02/11/20 03/07/20 Rx tablets in a dose pack #53 each hydrochlorothiazide 12.5 mg tablet 12.5 mg PO DAILY #90 tablet 02/21/20 03/07/20 Rx nystatin 100,000 ml PO DAILY PRN 03/07/20 03/07/20 History peg 3350-electrolytes 236 240 ml PO Q10M #4000 ml 03/12/20 Rx gram-22.74 gram-6.74 gram-5.86 gram solution Patient hx anesthesia problems: none Family hx anesthesia problems: none PMFSH Past Medical History Medical History (Updated 03/13/20 @ 07:08 by Brandon Wallace MD) Adenomatous colon polyp Anxiety Collagen vascular disease Complex sleep apnea syndrome COPD (chronic obstructive pulmonary disease) Demyelinating disease Encounter for screening for other metabolic disorders Esophageal stricture Essential hypertension Family history of colon cancer Gastroesophageal reflux disease without esophagitis History of tobacco abuse Hyperlipidemia due to dietary fat intake Hyperlipidemia, unspecified ILD (interstitial lung disease) Infectious colitis Lumbar radiculopathy Mass in neck Muscle cramps Oxygen dependent Thrush Tobacco abuse Urge incontinence Family History Family History Mother Patient's mother is , Onset Age: 72 Sibling Carcinoma of colon Family history of malignant neoplasm of breast in first degree relative Father Brain aneurysm Social History Social History Smoking packs per day: 1 Smoking cigarettes per day: 20.0 Years smoked: 50 Smoking pack-years: 50.00 Smoking status: Current every day smoker Tobacco type: cigarettes Alcohol intake: never Substance use: never Substance use type: does not use Living arrangements: with family Spiritual care concerns: No Anes - Eval Final PreProcedure Day of Procedure 03/13/20 07:07 Patient weight: normal Heart: regular
[2020-03-13 10:41] VITALS: BP 132/71; PULSE 94; RESP 18; TEMP 36.6; O2SAT 96; BMI 19.7
[2020-03-13] MEDS: LACTATED RINGERS 1,000 ML 150 ML IV CONT (10:48)
--- NOTE | 2020-03-13 11:51 | PM.HPGS ---
History of Present Illness History of Present Illness Consent: Risks, benefits, and alternatives have been discussed and questions answered. Patient agrees to proceed with procedure. Chief complaint: Family History Of Colon Cancer, Dysphagia Narrative: Melyssa Mccall is a 64 year old female dysphagia with previous esophageal dilation, also colon polyps due to have another colonoscopy and sister with colon ca. Review of Systems Constitutional: Constitutional: Denies headache(s) and Denies weakness Eyes: Eyes: Denies blurry vision ENT: Reports Normal hearing present, Denies headache(s) and Denies neck pain Cardiovascular: Cardiovascular: Denies chest pain and Denies dyspnea Respiratory: Respiratory: Denies dyspnea Gastrointestinal: Gastrointestinal: Reports no additional gastrointestinal complaints Genitourinary: Genitourinary: Denies dysuria Musculoskeletal: Musculoskeletal: Denies neck pain Integumentary/Breasts: Skin/Breast: Denies dry skin Neurologic: Reports Normal hearing present, Denies headache(s) and Denies weakness Psychiatric: Psychiatric: Denies anxiety Endocrine: Endocrine: Denies change in body appearance Hematologic/Lymphatic: Hematologic/Lymphatic: Denies easy bleeding Allergic/Immunologic: Allergic/Immunologic: Denies urticaria PMFSH Past Medical History Medical History (Updated 03/13/20 @ 07:08 by Brandon Wallace MD) Adenomatous colon polyp Anxiety Collagen vascular disease Complex sleep apnea syndrome COPD (chronic obstructive pulmonary disease) Demyelinating disease Encounter for screening for other metabolic disorders Esophageal stricture Essential hypertension Family history of colon cancer Gastroesophageal reflux disease without esophagitis History of tobacco abuse Hyperlipidemia due to dietary fat intake Hyperlipidemia, unspecified ILD (interstitial lung disease) Infectious colitis Lumbar radiculopathy Mass in neck Muscle cramps Oxygen dependent Thrush Tobacco abuse Urge incontinence Family History Family History Mother Patient's mother is , Onset Age: 72 Sibling Carcinoma of colon Family history of malignant neoplasm of breast in first degree relative Father Brain aneurysm Social History Social History Smoking packs per day: 1 Smoking cigarettes per day: 20.0 Years smoked: 50 Smoking pack-years: 50.00 Smoking status: Current every day smoker Tobacco type: cigarettes Alcohol intake: never Substance use: never Substance use type: does not use Living arrangements: with family Spiritual care concerns: No Meds Home Medications and Allergies Home Medications Medication Instructions Recorded Confirmed Type aspirin 81 mg tablet,delayed 81 mg PO DAILY 06/02/19 03/07/20 History release loratadine 10 mg tablet 10 mg PO DAILY 06/02/19 03/07/20 History albuterol sulfate 90 mcg/actuation 1 inhalation INHALATION Q4H PRN 06/28/19 03/07/20 Rx aerosol inhaler #8.5 gm omeprazole 40 mg capsule,delayed 40 mg PO DAILY #90 cap 10/10/19 03/07/20 Rx release lovastatin 40 mg tablet 40 mg PO DAILY #90 tablet 12/12/19 03/07/20 Rx ascorbate calcium (vitamin C) 500 500 mg PO DAILY 01/05/20 03/07/20 History mg tablet cyclobenzaprine 5 mg tablet 5 mg PO TID PRN tablet 01/05/20 03/07/20 History gabapentin 300 mg capsule 300 mg PO QID cap 01/05/20 03/07/20 History mecobalamin (vitamin B12) 1,000 1,000 mcg SUBLINGUAL DAILY 01/05/20 03/07/20 History mcg disintegrating tablet,sublingual varenicline 1 mg tablet 1 mg PO BID #56 tablet 01/05/20 03/07/20 Rx tiotropium bromide 18 mcg capsule 1 cap INHALATION DAILY #30 cap 01/06/20 03/07/20 Rx with inhalation device budesonide-formoterol HFA 160 2 puff INHALATION Q12H #10.2 g 02/10/20 03/07/20 Rx mcg-4.5 mcg/actuation aerosol inhaler sertraline 100 mg table
[2020-03-13 12:25] VITALS: BP 109/75; PULSE 76; RESP 26; O2SAT 96
[2020-03-13 12:35] VITALS: BP 121/86; PULSE 79; RESP 22; O2SAT 96
[2020-03-13 12:50] VITALS: BP 119/72; PULSE 69; RESP 14; O2SAT 92
--- NOTE | 2020-03-13 12:52 | SUR.OPER ---
EGD START 1155, END 1202 COLONOSCOPY START 1208, END 1221
== END 2020-03-13 13:08 | disposition home or self-care (01) ==
PROVIDERS: PCP Internal Medicine; Visit Provider Internal Medicine Gastroenterology
PROC: 0DJ08ZZ Inspection of Upper Intestinal Tract, Via Natural or Artificial Opening Endoscopic (ICD-10-PCS; CPT 43235; principal; 2020-03-13 11:30)
DX: Z12.11 Encounter for screening for malignant neoplasm of colon (principal); D12.2 Benign neoplasm of ascending colon; K29.50 Unspecified chronic gastritis without bleeding; K22.2 Esophageal obstruction; K44.9 Diaphragmatic hernia without obstruction or gangrene; R13.10 Dysphagia, unspecified; K21.9 Gastro-esophageal reflux disease without esophagitis; I10 Essential (primary) hypertension; J44.9 Chronic obstructive pulmonary disease, unspecified; J84.9 Interstitial pulmonary disease, unspecified; M54.16 Radiculopathy, lumbar region; M35.9 Systemic involvement of connective tissue, unspecified; G47.39 Other sleep apnea; G37.9 Demyelinating disease of central nervous system, unspecified; F17.210 Nicotine dependence, cigarettes, uncomplicated; F41.9 Anxiety disorder, unspecified; Z99.81 Dependence on supplemental oxygen; Z80.0 Family history of malignant neoplasm of digestive organs
CPT/HCPCS: 45385; 43239; 43249; 88305; C1726; J2001; J2704; J7120

== ENCOUNTER 2020-03-22 13:23 | Outpatient (CLI) | payer MEDICARE, MEDICAID, SELFPAY ==
--- NOTE | 2020-03-22 13:32 | ECHO_ITS ---
Patient Info Name: Melyssa Mccall Age: 64 years : 1955 Gender: Female Ht: 66 in Wt: 127 lbs BSA: 1.63 m2 HR: 98 bpm BP: 155 / 69 mmHg Technical Quality: Good Exam Date: 03/22/2020 1:39 PM Exam Location: [facility] Patient Status: Outpatient Admit Date: 03/22/2020 Staff Ordering Physician: Josh Lane DO Retirement Administrator: Shemar Law RDCS, RT Attending Provider: Josh Lane DO Referring Physician: Domingo SANCHEZ; Exam Type: CA echo dop color flow w con Study Info Indications R00.0 - Tachycardia, unspecified Complete two-dimensional, color flow and Doppler transthoracic echocardiogram is performed with contrast to opacify the left ventricle and to improve the deliniation of the left ventricle endocardial borders. Strain analysis performed. Summary 1. Left ventricular chamber dimension is normal. 2. Ventricular septum is sigmoid shaped. 3. Definity contrast administered improved wall motion interpretation. 4. Left ventricular systolic function is normal, estimated at 60-65%. 5. The left ventricular diastolic function is grade I diastolic dysfunction. 6. E/e' 14 is mildly elevated. 7. Global longitudinal strain is normal at -24.3%. 8. There is mild aortic valve sclerosis. 9. There is mild mitral valve regurgitation. 10. Mild pulmonary hypertension, estimated pulmonary arterial systolic pressure is 42 mmHg. Left Ventricle Definity contrast administered improved wall motion interpretation. E/e' 14 is mildly elevated. Global longitudinal strain is normal at -24.3%. Ventricular septum is sigmoid shaped. Left ventricular chamber dimension is normal. Left ventricular systolic function is normal, estimated at 60-65%. The left ventricular diastolic function is grade I diastolic dysfunction. Right Ventricle Right ventricular chamber dimension is normal. Right ventricular systolic function is normal. Left Atria Left atrial chamber dimension is normal. Right Atria Right atrial chamber dimension is normal. Aortic Valve Cannot determine number of aortic valve leaflets. The aortic valve is not well visualized. There is mild aortic valve sclerosis. There is no aortic valve stenosis. There is no aortic valve regurgitation. Pulmonic Valve There is no pulmonic regurgitation. Mitral Valve There is no mitral valve stenosis. There is mild mitral valve regurgitation. Tricuspid Valve There is no tricuspid valve regurgitation. Mild pulmonary hypertension, estimated pulmonary arterial systolic pressure is 42 mmHg. Pericardium/Pleural There is no pericardial effusion. Inferior Vena Cava Normal inferior vena cava with >50% collapse upon inspiration consistent with normal right atrial pressure, 5 mmHg. Aorta The aortic root size at the sinus of Valsalva is normal. Left Ventricular Outflow Tract Name Value Normal LVOT 2D LVOT Diameter 2.03 cm LVOT Doppler LVOT Peak Gradient 5 mmHg LVOT Mean Gradient 2 mmHg LVOT VTI 18.90 cm LVOT VTI/AV VTI Ratio 0.65
== END 2020-03-22 13:24 | disposition home or self-care (01) ==
LOC: ANHCARD 13:26
PROVIDERS: PCP Internal Medicine; Visit Provider Internal Medicine Cardiovascular Disease
DX: R00.0 Tachycardia, unspecified (principal)
CPT/HCPCS: C8929

== ENCOUNTER → 2020-03-28 09:29 | Outpatient (CLI) | payer MEDICARE, MEDICAID, SELFPAY ==
--- NOTE | ~2020-03-28 | XR_ITS ---
XR ankle RT 2V 03/28/2020 09:55 INDICATION: Right ankle pain PROCEDURE: 2 views right ankle COMPARISON: No prior studies for comparison. FINDINGS: Fracture, dislocation or subluxation is not identified. The soft tissues appear within norm al limits. No foreign bodies are identified. IMPRESSION: 1: NO ACUTE BONE OR JOINT ABNORMALITY IDENTIFIED. Reviewed, dictated and finalized at location A. H RN
== END ==
PROVIDERS: PCP Internal Medicine; Visit Provider Nurse Practitioner Family
DX: M25.571 Pain in right ankle and joints of right foot (principal)
CPT/HCPCS: 73600

== ENCOUNTER 2020-04-11 12:54 | Outpatient (CLI) | payer MEDICARE, MEDICAID, SELFPAY ==
--- NOTE | ~2020-04-11 | CT_ITS ---
EXAMINATION: CT brain wo con DATE: 04/11/2020 13:34 INDICATION: Head injury. TECHNIQUE: Computed tomography (CT) of the head was performed without intravenous contrast. The mA wa s adjusted according to patient size. Iterative reconstruction technique was employed. The dose-lengt h product was 605.33 mGy-cm. COMPARISON: None FINDINGS: There are scattered areas of low attenuation in the cerebral white matter. There is an area of cystic encephalomalacia in the right parietal deep white matter. There is no intracranial hemorrh age, acute infarction, or abnormal intracranial mass lesion. The ventricles are normal in size. The o rbits are normal. The paranasal sinuses are clear. The mastoid air cells are normal. There is right f rontal scalp soft tissue swelling. IMPRESSION: 1. 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 2. Mild nonspecific cerebral white matter disease, which likely represents chronic small vessel ische kadi disease. Reviewed, dictated and finalized at location B. PROCESSING SYSTEMS PROJECT PLANNER IMPRESSION: 1. 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 2. Mild nonspecific cerebral white matter disease, which likely represents business excellence leader andrew small vessel ischemic disease.
== END 2020-04-11 12:55 | disposition home or self-care (01) ==
PROVIDERS: PCP Internal Medicine; Visit Provider Nurse Practitioner
DX: S09.90XA Unspecified injury of head, initial encounter (principal); X58.XXXA Exposure to other specified factors, initial encounter; R93.0 Abnormal findings on diagnostic imaging of skull and head, not elsewhere classified
CPT/HCPCS: 70450

== ENCOUNTER 2020-05-10 06:54 | Outpatient (NON) | payer MEDICARE, MEDICAID, SELFPAY ==
[2020-05-10 19:24] LABS: SARS-CoV-2 RNA PCR Negative
== END 2020-05-10 06:55 ==
PROVIDERS: PCP Internal Medicine; Visit Provider Nurse Practitioner
DX: R05 Cough (principal); Z20.822 Contact with and (suspected) exposure to COVID-19
CPT/HCPCS: C9803; U0003

== ENCOUNTER 2020-06-05 01:19 | Outpatient (CLI) | payer MEDICARE, MEDICAID, SELFPAY ==
[2020-06-05 19:17] LABS: SARS-CoV-2 RNA PCR Negative
== END 2020-06-05 01:20 | disposition home or self-care (01) ==
LOC: ANHCOVIDDT 01:20
PROVIDERS: PCP Internal Medicine; Visit Provider Internal Medicine Gastroenterology
DX: Z01.812 Encounter for preprocedural laboratory examination (principal); Z20.822 Contact with and (suspected) exposure to COVID-19
CPT/HCPCS: C9803; U0003; U0005

== ENCOUNTER 2020-06-08 00:58 | Day surgery (SDC) | payer MEDICARE, MEDICAID, SELFPAY ==
[2020-05-21 14:53] VITALS: BMI 20.2
[2020-06-08 09:48] VITALS: BP 108/80; PULSE 87; RESP 18; TEMP 35.9; O2SAT 97; BMI 19.5
[2020-06-08] MEDS: LACTATED RINGERS 1,000 ML 150 ML IV CONT (09:57)
--- NOTE | 2020-06-08 10:29 | WPDANESEPPF ---
Anes - Initial Pre Proc Eval Procedure: Operation Date: 06/08/20 11:00 Proposed Procedures p Esophagogastroduodenoscopy - Channing Ryan MD Date/Time: 06/08/20 10:29 Surgeon: Channing Ryan MD Pre Op Diagnosis: Dysphagia Patient Data Age: 64 Gender: F Height: 5 ft 6 in Weight: 55.1 kg Last Vital Signs Temp 96.6 F L 06/08/20 09:48 Pulse 87 06/08/20 09:48 Resp 18 06/08/20 09:48 BP 108/80 06/08/20 09:48 Pulse Ox 97 06/08/20 09:48 Allergies Allergy/AdvReac Type Severity Reaction Status Date / Time Penicillins Allergy Severe Anaphylaxis Verified 06/08/20 09:47 meperidine Allergy Unknown Itching Verified 06/08/20 09:47 Home Medications Medication Instructions Recorded Confirmed Type aspirin 81 mg tablet,delayed 81 mg PO DAILY 06/02/19 05/21/20 History release loratadine 10 mg tablet 10 mg PO DAILY 06/02/19 05/21/20 History lovastatin 40 mg tablet 40 mg PO DAILY #90 tablet 12/12/19 05/21/20 Rx ascorbate calcium (vitamin C) 500 500 mg PO DAILY 01/05/20 05/21/20 History mg tablet cyclobenzaprine 5 mg tablet 5 mg PO TID PRN tablet 01/05/20 05/21/20 History gabapentin 300 mg capsule 300 mg PO QID cap 01/05/20 05/21/20 History mecobalamin (vitamin B12) 1,000 1,000 mcg SUBLINGUAL DAILY 01/05/20 05/21/20 History mcg disintegrating tablet,sublingual tiotropium bromide 18 mcg capsule 1 cap INHALATION DAILY #30 cap 01/06/20 05/21/20 Rx with inhalation device budesonide-formoterol HFA 160 2 puff INHALATION Q12H #10.2 g 02/10/20 05/21/20 Rx mcg-4.5 mcg/actuation aerosol inhaler solifenacin 10 mg tablet 5 mg PO DAILY tablet 02/10/20 05/21/20 History hydrochlorothiazide 12.5 mg tablet 12.5 mg PO DAILY #90 tablet 02/21/20 05/21/20 Rx metoprolol succinate 25 mg 25 mg PO DAILY #30 tablet 04/11/20 05/21/20 Rx tablet,extended release 24 hr morphine 10 mg capsule,extended 15 mg PO Q12H cap 04/18/20 05/21/20 History release pellets omeprazole 40 mg capsule,delayed 40 mg PO DAILY #90 cap 05/03/20 05/21/20 Rx release sertraline 100 mg tablet 100 mg PO DAILY #90 tablet 05/11/20 05/21/20 Rx albuterol sulfate 90 mcg/actuation See Rx Instructions .ROUTE 06/01/20 Rx aerosol inhaler .COMPLEX #18 g Patient hx anesthesia problems: none Family hx anesthesia problems: none PMFSH Past Medical History Medical History Adenomatous colon polyp Anxiety Collagen vascular disease Complex sleep apnea syndrome COPD (chronic obstructive pulmonary disease) Demyelinating disease Encounter for screening for other metabolic disorders Esophageal stricture Essential hypertension Family history of colon cancer Gastroesophageal reflux disease without esophagitis History of tobacco abuse Hyperlipidemia due to dietary fat intake Hyperlipidemia, unspecified ILD (interstitial lung disease) Infectious colitis Lumbar radiculopathy Mass in neck Muscle cramps Oxygen dependent Thrush Tobacco abuse Urge incontinence Family History Family History Mother Patient's mother is , Onset Age: 72 Sibling Carcinoma of colon Family history of malignant neoplasm of breast in first degree relative Father Brain aneurysm Social History Social History (Updated 05/09/20 @ 10:35 by Janene Whitehead [facility]) Smoking packs per day: 0.5 Smoking cigarettes per day: 10.0 Years smoked: 50 Smoking pack-years: 25.00 Smoking status: Current every day smoker Tobacco type: cigarettes Alcohol intake: never Substance use: never Substance use type: does not use Living arrangements: alone Spiritual care concerns: No Anes - Eval Final PreProcedure Day of Procedure 06/08/20 10:29 Patient weight: normal Heart: regular rate and rhythm Lungs: clear to auscultation Airway: Mallampati scale class II Neurological: alert
--- NOTE | 2020-06-08 10:38 | PM.HPGS ---
History of Present Illness History of Present Illness Consent: Risks, benefits, and alternatives have been discussed and questions answered. Patient agrees to proceed with procedure. Chief complaint: Dysphagia Narrative: Melyssa Mccall is a 64 year old female with esophageal ring dilated by me 03/2020 but dysphagia again, also using omeprazole. Review of Systems Constitutional: Constitutional: Denies headache(s) and Denies weakness Eyes: Eyes: Denies blurry vision ENT: Reports Normal hearing present, Denies headache(s) and Denies neck pain Cardiovascular: Cardiovascular: Denies chest pain and Denies dyspnea Respiratory: Respiratory: Denies dyspnea Gastrointestinal: Gastrointestinal: Reports no additional gastrointestinal complaints Genitourinary: Genitourinary: Denies dysuria Musculoskeletal: Musculoskeletal: Denies neck pain Integumentary/Breasts: Skin/Breast: Denies dry skin Neurologic: Reports Normal hearing present, Denies headache(s) and Denies weakness Psychiatric: Psychiatric: Denies anxiety Endocrine: Endocrine: Denies change in body appearance Hematologic/Lymphatic: Hematologic/Lymphatic: Denies easy bleeding Allergic/Immunologic: Allergic/Immunologic: Denies urticaria PMF Past Medical History Medical History Adenomatous colon polyp Anxiety Collagen vascular disease Complex sleep apnea syndrome COPD (chronic obstructive pulmonary disease) Demyelinating disease Encounter for screening for other metabolic disorders Esophageal stricture Essential hypertension Family history of colon cancer Gastroesophageal reflux disease without esophagitis History of tobacco abuse Hyperlipidemia due to dietary fat intake Hyperlipidemia, unspecified ILD (interstitial lung disease) Infectious colitis Lumbar radiculopathy Mass in neck Muscle cramps Oxygen dependent Thrush Tobacco abuse Urge incontinence Family History Family History Mother Patient's mother is , Onset Age: 72 Sibling Carcinoma of colon Family history of malignant neoplasm of breast in first degree relative Father Brain aneurysm Social History Social History (Updated 05/09/20 @ 10:35 by Janene Whitehead [facility]) Smoking packs per day: 0.5 Smoking cigarettes per day: 10.0 Years smoked: 50 Smoking pack-years: 25.00 Smoking status: Current every day smoker Tobacco type: cigarettes Alcohol intake: never Substance use: never Substance use type: does not use Living arrangements: alone Spiritual care concerns: No Meds Home Medications and Allergies Home Medications Medication Instructions Recorded Confirmed Type aspirin 81 mg tablet,delayed 81 mg PO DAILY 06/02/19 05/21/20 History release loratadine 10 mg tablet 10 mg PO DAILY 06/02/19 05/21/20 History lovastatin 40 mg tablet 40 mg PO DAILY #90 tablet 12/12/19 05/21/20 Rx ascorbate calcium (vitamin C) 500 500 mg PO DAILY 01/05/20 05/21/20 History mg tablet cyclobenzaprine 5 mg tablet 5 mg PO TID PRN tablet 01/05/20 05/21/20 History gabapentin 300 mg capsule 300 mg PO QID cap 01/05/20 05/21/20 History mecobalamin (vitamin B12) 1,000 1,000 mcg SUBLINGUAL DAILY 01/05/20 05/21/20 History mcg disintegrating tablet,sublingual tiotropium bromide 18 mcg capsule 1 cap INHALATION DAILY #30 cap 01/06/20 05/21/20 Rx with inhalation device budesonide-formoterol HFA 160 2 puff INHALATION Q12H #10.2 g 02/10/20 05/21/20 Rx mcg-4.5 mcg/actuation aerosol inhaler solifenacin 10 mg tablet 5 mg PO DAILY tablet 02/10/20 05/21/20 History hydrochlorothiazide 12.5 mg tablet 12.5 mg PO DAILY #90 tablet 02/21/20 05/21/20 Rx metoprolol succinate 25 mg 25 mg PO DAILY #30 tablet 04/11/20 05/21/20 Rx tablet,extended release 24 hr morphine 10 mg capsule,extended 15 mg PO Q12H cap 04/18/20 05/21/20 History rel
[2020-06-08 10:55] VITALS: BP 108/54; PULSE 85; RESP 23; O2SAT 95
[2020-06-08 11:05] VITALS: BP 99/58; PULSE 80; RESP 24; O2SAT 94
[2020-06-08 11:15] VITALS: BP 106/61; PULSE 74; RESP 18; O2SAT 95
== END 2020-06-08 11:25 | disposition home or self-care (01) ==
PROVIDERS: PCP Internal Medicine; Visit Provider Internal Medicine Gastroenterology
PROC: 0DJ08ZZ Inspection of Upper Intestinal Tract, Via Natural or Artificial Opening Endoscopic (ICD-10-PCS; CPT 43235; principal; 2020-06-08 11:00)
DX: K44.9 Diaphragmatic hernia without obstruction or gangrene (principal); K22.2 Esophageal obstruction; K21.9 Gastro-esophageal reflux disease without esophagitis; Z79.82 Long term (current) use of aspirin; Z79.51 Long term (current) use of inhaled steroids; F41.9 Anxiety disorder, unspecified; J44.9 Chronic obstructive pulmonary disease, unspecified; I10 Essential (primary) hypertension; G47.30 Sleep apnea, unspecified; E78.5 Hyperlipidemia, unspecified; J84.9 Interstitial pulmonary disease, unspecified; F17.210 Nicotine dependence, cigarettes, uncomplicated; Z80.0 Family history of malignant neoplasm of digestive organs; G37.9 Demyelinating disease of central nervous system, unspecified
CPT/HCPCS: 43249; C1726; J2704; J7120

== ENCOUNTER 2020-07-02 15:30 | Outpatient (CLI) | payer MEDICARE, MEDICAID, SELFPAY ==
--- NOTE | ~2020-07-02 | MR_ITS ---
EXAMINATION: MR shoulder RT wo con DATE: 07/02/2020 16:26 INDICATION: Right shoulder pain TECHNIQUE: Magnetic resonance imaging (MRI) of the right shoulder was performed without intravenous c ontrast. Sequences included axial PD-weighted FS FSE, coronal oblique PD-weighted FS FSE, coronal obl ique T2-weighted FS FSE, sagittal PD-weighted FS FSE, and sagittal T1-weighted SE. COMPARISON: None. FINDINGS: Coracoacromial arch: The acromion undersurface is curved in morphology (type II). The coracoacromial ligament is normal. M ild acromioclavicular osteoarthritis. Rotator cuff: Mild supraspinatus, infraspinatus and subscapularis tendinopathy without discrete tear. The teres min or tendon is normal. There is increased signal within the distal teres minor muscle belly as well as in the overlying posterior deltoid muscle. The increased muscle signal follows atypical pattern exten ding in a relatively linear pattern from deep to superficial across the deltoid and into the immediat dar underlying teres minor suggesting this could be related to in extrinsic trauma or potentially an injection site. No discrete hematoma or abscess. Otherwise normal rotator cuff muscle bulk and signal . Biceps tendon, glenoid labrum and glenohumeral cartilage: Long head of the biceps tendon is normal. Evaluation of the glenoid labrum and cartilage is somewhat limited by some motion artifact on the oblique coronal sequences and minimally on the axial sequence. There appears be a small linear partial-thickness tear at the anteroinferior labrum. Normal anterosu perior sublingual foramen. More amorphous mild increased signal at the posterior superior labrum coul d represent either labral degeneration or artifact. There some partial thickness cartilage loss with smooth chondral surface along the cephalad half of the glenoid. No more focal cartilage defects or de generative subchondral changes. Fluid: Physiologic amount of fluid in the glenohumeral joint and biceps tendon sheath. No loose osteochondra l bodies. Small amount of fluid in the subacromial/subdeltoid bursa consistent with mild bursitis. Bones: Normal marrow signal with no edema, fracture or other etiology marrow replacing process. IMPRESSION: 1. Unusual pattern of muscular edema/nonspecific myositis extending in a relatively linear fashion fr om superficial to deep across the posterior deltoid and into the immediately underlying distal teres minor muscle. This suggests a posttraumatic etiology either contusion or secondary septic versus asep tic myositis along an injection tract. Correlate with clinical history. 2. Mild subacromial/subdeltoid bursitis. 3. Mild subscapularis, supraspinatus and infraspinatus tendinopathy without discrete tear. 4. Mild glenohumeral osteoarthritis with small mild tear at the anteroinferior glenoid and possible d egeneration at the posterosuperior glenoid. Assessment of the cartilage and labrum is somewhat limite d by some motion on the oblique coronal sequences. 5. Mild acromioclavicular osteoarthritis. Reviewed, dictated and finalized at location B. 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 Unusual pattern of muscular edema/nonspecific myositis extending in a relati vely linear fashion from superficial to deep across the posterior deltoid and i nto the immediately underlying distal teres minor muscle. This suggests a postt raumatic etiology either contusion or secondary septic versus aseptic myositis along an injection tract. Correlate with clinical history. 2. Mild subacromial/subdeltoid bursitis. 3. Mild subscapularis, supraspinatus and infraspinatus tendinopathy without dis crete tear. 4. Mild glenohumeral osteoarthritis with small mild tear at the anteroinferior glenoid and possible degeneration at the postero
== END 2020-07-02 15:31 | disposition home or self-care (01) ==
PROVIDERS: PCP Internal Medicine; Visit Provider Nurse Practitioner
DX: M19.011 Primary osteoarthritis, right shoulder (principal); M75.51 Bursitis of right shoulder
CPT/HCPCS: 73221

== ENCOUNTER 2020-10-08 14:10 | Outpatient (CLI) | payer MEDICARE, MEDICAID, SELFPAY ==
--- NOTE | ~2020-10-08 | XR_ITS ---
XR abdomen/kub 1V 10/08/2020 14:52 INDICATION: Change in bowel habits TECHNIQUE: KUB COMPARISON: None FINDINGS: Bowel gas pattern is normal. There is no evidence of free air, mass, organomegaly, ascites or obstruction. No abnormal calculi are seen. Calcifications in the pelvis are believed to be phleb oliths. The bones appear intact. IMPRESSION: 1: No acute abdominal abnormality identified. Reviewed, dictated and finalized at location B.
[2020-10-08 14:59] LABS: Hematocrit 40.5 % (37.0-47.0); Hemoglobin 13.3 g/dL (12.0-15.0); Mean Corpuscular HGB Conc 32.8 g/dl (32-36); Mean Corpuscular Hemoglobin 30.2 pg (26-34); Mean Platelet Volume 9.4 fl (7.4-10.4); Platelet Count Result 180 k/mm3 (150-375); Red Cell Distribution Width 14.2 % (11.5-14.5); White Blood Count 5.8 K/mm3 (4.5-10.0)
[2020-10-08 15:10] LABS: Lipase 154 U/L (23-300)
== END 2020-10-08 14:23 | disposition home or self-care (01) ==
PROVIDERS: PCP Internal Medicine; Visit Provider Nurse Practitioner Family
DX: R19.4 Change in bowel habit (principal); Z80.0 Family history of malignant neoplasm of digestive organs; K90.9 Intestinal malabsorption, unspecified; R10.9 Unspecified abdominal pain
CPT/HCPCS: 36415; 74018; 83690; 85027

== ENCOUNTER 2020-12-24 15:20 | Outpatient (CLI) | payer MEDICARE, MEDICAID, SELFPAY ==
--- NOTE | ~2020-12-24 | MR_ITS ---
EXAMINATION: MR thoracic spine wo con DATE: 12/24/2020 16:18 INDICATION: Pain in thoracic spine. TECHNIQUE: Magnetic resonance imaging (MRI) of the thoracic spine was performed without intravenous c ontrast. Sagittal localizer T1-weighted FSE of the cervical spine was obtained. Thoracic spine sequen janice included sagittal T2-weighted FSE, sagittal T1-weighted FSE, sagittal T2-weighted FS FSE, and axi al T2-weighted FSE. COMPARISON: Thoracic spine MRI 05/12/2018 FINDINGS: Bone alignment is normal. Vertebral body heights are normal. Intervertebral disc heights ar e normal. There is multilevel mild to moderate facet joint osteoarthritis. No neural foraminal stenos is. The discs do not extend beyond the endplate margins. No central canal stenosis. The spinal cord s ignal intensity is normal. IMPRESSION: 1. Multilevel mild to moderate facet joint osteoarthritis. Reviewed, dictated and finalized at location A.
== END 2020-12-24 15:21 | disposition home or self-care (01) ==
PROVIDERS: PCP Internal Medicine; Visit Provider Nurse Practitioner Family
DX: M51.34 Other intervertebral disc degeneration, thoracic region (principal)
CPT/HCPCS: 72146

== ENCOUNTER 2021-01-15 09:27 | Outpatient (CLI) | payer MEDICARE, MEDICAID, SELFPAY ==
--- NOTE | ~2021-01-15 | CT_ITS ---
EXAMINATION: CT lung screening DATE: 01/15/2021 09:43 INDICATION: History of nicotine dependence, current smoker with 50 pack year history TECHNIQUE: Computed tomography (CT) of the chest was performed without intravenous contrast. The dose -length product (DLP) was 68.14 mGy-cm. 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 COMPARISON: 12/05/2019 FINDINGS: There is moderate to severe emphysema. There is a stable 5 mm nodule of the left upper lobe on image 41. There is a stable 3 mm nodule of the right upper lobe on image 70. No new pulmonary nod ules are identified. There is scarring of the lung apices. There is no pleural effusion or pneumothor ax. Mucous plugging is again noted in the right middle lobe. No pathologically enlarged thoracic lymp h nodes are identified. The heart size is normal. Calcified coronary artery atherosclerosis is noted. Nonobstructing stones of the left kidney measure up to 6 mm. IMPRESSION: 1. Lung-RADS category 2: Benign appearance or behavior. Continue annual screening with noncontrast lo w-dose chest CT in 12 months. Reviewed, dictated and finalized at location A. IMPRESSION: 1. Lung-RADS category 2: Benign appearance or behavior. Continue annual screeni ng with noncontrast low-dose chest CT in 12 months.
== END 2021-01-15 09:28 | disposition home or self-care (01) ==
LOC: ANHIMG 09:28
PROVIDERS: PCP Internal Medicine; Visit Provider Nurse Practitioner Family
DX: Z12.2 Encounter for screening for malignant neoplasm of respiratory organs (principal); Z87.891 Personal history of nicotine dependence
CPT/HCPCS: 71271

== ENCOUNTER → 2021-01-18 01:38 | Outpatient (CLI) | payer MEDICARE, MEDICAID, SELFPAY ==
[2021-01-18 19:39] LABS: SARS-CoV-2 RNA PCR Negative
== END ==
PROVIDERS: PCP Internal Medicine; Visit Provider Pain Medicine Pain Medicine
DX: Z01.812 Encounter for preprocedural laboratory examination (principal); Z20.822 Contact with and (suspected) exposure to COVID-19
CPT/HCPCS: C9803; U0003; U0005

== ENCOUNTER 2021-05-13 10:05 | Outpatient (CLI) | payer MEDICARE, MEDICAID, SELFPAY ==
[2021-05-13 10:55] LABS: Alanine Aminotransferase 13 U/L (4-35); Alkaline Phosphatase 85 U/L (38-126); Anion Gap 8 mmol/L (8-16); Aspartate Amino Transferase 27 U/L (14-36); Bilirubin,Total 0.4 mg/dL (0.2-1.3); Blood Urea Nitrogen 14 mg/dL (7-17); Calcium 8.9 mg/dL (8.4-10.2); Carbon Dioxide 27 mmol/L (22-30); Chloride 99 mmol/L (98-107); Cholesterol 157 mg/dL (0-200); Estimated Glomerular Filt Rate > 60; Glucose 105 mg/dL (65-110); HDL Direct 54 mg/dL; Potassium 3.8 mmol/L (3.4-5.0); Sodium 134 mmol/L (137-145); Triglycerides 157 mg/dL (<150)
[2021-05-13 11:06] LABS: LDL Cholesterol Direct 77 mg/dL
[2021-05-13 11:42] LABS: Hemoglobin A1C 5.8 % (<5.7)
== END 2021-05-13 10:06 | disposition home or self-care (01) ==
PROVIDERS: PCP Internal Medicine; Referring Provider Family Medicine; Visit Provider Internal Medicine Cardiovascular Disease
DX: E78.5 Hyperlipidemia, unspecified (principal); E55.9 Vitamin D deficiency, unspecified; R73.9 Hyperglycemia, unspecified; E53.8 Deficiency of other specified B group vitamins
CPT/HCPCS: 36415; 80053; 80061; 82306; 82607; 83036

== ENCOUNTER → 2021-05-29 02:11 | Outpatient (CLI) | payer MEDICARE, MEDICAID, SELFPAY ==
[2021-05-29 13:52] LABS: Influenza A QL RT-PCR Negative (Negative); Influenza B QL RT-PCR Negative (Negative); SARS-CoV-2 RNA PCR Negative
== END ==
PROVIDERS: PCP Internal Medicine; Visit Provider Nurse Practitioner
DX: R09.89 Other specified symptoms and signs involving the circulatory and respiratory systems (principal); Z20.822 Contact with and (suspected) exposure to COVID-19
CPT/HCPCS: 87502; C9803; U0003; U0005

== ENCOUNTER 2021-07-11 09:53 | Emergency (ER) | payer MEDICARE, MEDICAID, SELFPAY ==
[2021-07-11] VITALS (13 sets, daily range): BP systolic 101–140; BP diastolic 53–96; PULSE 68–89; RESP 17–22; TEMP 36.4; O2SAT 92–100
--- NOTE | ~2021-07-11 | XR_ITS ---
EXAMINATION: XR chest 1V portable DATE: 07/11/2021 10:24 INDICATION: Right chest pain. TECHNIQUE: A single frontal view of the chest was obtained. COMPARISON: Chest 2 views 07/07/2019, chest CT 01/15/2021 FINDINGS: There is mild scarring at the lung apices. There are lucencies and interstitial opacities i n the lungs, consistent with emphysema. There are airspace opacities in the lower lung zones, right w orse than left. No pleural effusion or pneumothorax. The heart size is normal. IMPRESSION: 1. Airspace opacities in the lower lung zones, right worse than left, consistent with atelectasis nika emmy pneumonia. 2. Severe emphysema. Reviewed, dictated and finalized at location A. 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 Airspace opacities in the lower lung zones, right worse than left, consisten t with atelectasis versus pneumonia. 2. Severe emphysema.
--- NOTE | 2021-07-11 10:02 | ECG_ITS ---
Measurements Intervals [place] Rate: 87 P: 83 NH: 141 QRS: 24 QRSD: 89 T: 64 QT: 363 QTc: 437 Interpretive Statements SINUS RHYTHM NONSPECIFIC ST ABNORMALITY RSR' V1 V2 POSSIBLE RIGHT ATRIAL ENLARGEMENT COMPARED TO ECG 07/07/2019 16:06:[address] NOW PRESENT [address] (T WAVE) DEVIATION NOW PRESENT Electronically Signed On 07-11-2021 14:13:18 ELECTRONIC PLOTTING SYSTEM OPERATOR by Trent Cai M.D.
--- NOTE | 2021-07-11 10:09 | PC.NURSE ---
Pt to ED with complaints of pain in the right side of her chest and ribs. Pt reports onset of pain was 0500 this morning. Pt describes pain as sharp. Pain is constant and worse with inspiration and coughing. Pt has hx of COPD. Wears 2L/NC O2 at all times. Pt denies feeling more short of breath than normal. Pt does report productive cough with green sputum x2 days. Pt denies fevers or known covid exposure. SpO2 100% on 2L/NC O2 on arrival.
[2021-07-11] MEDS: ASPIRIN 81 MG CHEWABLE TABLET 324 MG PO (10:27)
[2021-07-11 10:29] LABS: Basophils Percent Auto 0.3 % (0.2-1.2); Eosinophils Percent Auto 0.3 % (0-4.4); Hematocrit 42.2 % (37.0-47.0); Hemoglobin 13.7 g/dL (12.0-15.0); Immature Granulocyte Absolute 0.03 K/mm3 (0.00-0.031); Immature Granulocyte Percent A 0.3 % (0-0.5); Lymphocytes Absolute Auto 0.97 K/mm3 (0.9-3.2); Lymphocytes Percent Auto 10.7 % (18.3-44.2); Mean Corpuscular HGB Conc 32.5 g/dl (32-36); Mean Corpuscular Hemoglobin 30.5 pg (26-34); Mean Platelet Volume 9.6 fl (7.4-10.4); Monocytes Absolute Auto 0.7 K/mm3 (0.1-0.6); Neutrophils Absolute Auto 7.3 K/mm3 (1.3-6.7); Neutrophils Percent Auto 80.4 % (45.5-73.1); Platelet Count Result 225 k/mm3 (150-375); Red Blood Count 4.49 M/mm3 (4.2-5.4); Red Cell Distribution Width 13.2 % (11.5-14.5); White Blood Count 9.1 K/mm3 (4.5-10.0)
[2021-07-11 10:32] LABS: Alanine Aminotransferase 15 U/L (4-35); Albumin Level 4.4 g/dL (3.5-5.1); Alkaline Phosphatase 114 U/L (38-126); Anion Gap 9 mmol/L (8-16); Aspartate Amino Transferase 33 U/L (14-36); Bilirubin,Total 1.1 mg/dL (0.2-1.3); Blood Urea Nitrogen 10 mg/dL (7-17); Calcium 9.2 mg/dL (8.4-10.2); Carbon Dioxide 28 mmol/L (22-30); Chloride 98 mmol/L (98-107); Estimated CRCL calculation 63 ml/min; Estimated Glomerular Filt Rate > 60; Glucose 113 mg/dL (65-110); Lipase 147 U/L (23-300); Potassium 3.3 mmol/L (3.4-5.0); Sodium 135 mmol/L (137-145)
[2021-07-11 10:33] LABS: INR 1.1; Prothrombin Time 14.1 Seconds (11.1-14.7)
[2021-07-11 10:34] LABS: Partial Thromboplastin Time 29.5 SECONDS (22.3-36.8)
[2021-07-11 10:41] LABS: Troponin I < 0.012 ng/mL (0.000-0.034)
[2021-07-11] MEDS: ACETAMINOPHEN 500 MG TABLET 1000 MG PO (11:01)
--- NOTE | 2021-07-11 12:04 | ED.SOB ---
HPI - SOB/Dyspnea General Chief Complaint: Shortness of Breath/Dyspnea Stated Complaint: shortness of breath Time Seen by Provider: 07/11/21 10:26 History of Present Illness HPI Narrative: Patient is a 65-year-old female who presents ER with right-sided chest pain. Lateral chest plain in mid axillary line. Worse with twisting occurred after waking up this morning. She reports her last couple days she has had a change in her sputum when she coughs. She has a chronic cough related to her COPD. Sputum is now green and white. No fevers or chills or sweats. No exertional dyspnea. She has oxygen at home that she uses as needed. Currently not requiring oxygen. Related Data Home Medications Medication Instructions Recorded Confirmed aspirin 81 mg tablet,delayed 81 mg PO DAILY 06/02/19 07/11/21 release loratadine 10 mg tablet 10 mg PO DAILY 06/02/19 07/11/21 ascorbate calcium (vitamin C) 500 500 mg PO DAILY 01/05/20 07/11/21 mg tablet cyclobenzaprine 5 mg tablet 5 mg PO TID PRN tablet 01/05/20 07/11/21 mecobalamin (vitamin B12) 1,000 1,000 mcg SUBLINGUAL DAILY 01/05/20 07/11/21 mcg disintegrating tablet,sublingual solifenacin 10 mg tablet 5 mg PO DAILY tablet 02/10/20 07/11/21 fluticasone propionate 50 1 spray INTRANASAL DAILY 07/06/20 07/11/21 mcg/actuation nasal spray,suspension oxycodone myristate 13.5 mg 13.5 mg PO Q12H 06/14/21 07/11/21 capsule sprinkle extend release 12hr(DON'T CRUSH) potassium citrate 10 mEq (1,080 2,160 mg PO BID 06/14/21 07/11/21 mg) tablet,extended release Allergies Allergy/AdvReac Type Severity Reaction Status Date / Time Penicillins Allergy Severe Anaphylaxis Verified 07/11/21 09:08 meperidine Allergy Unknown Itching Verified 07/11/21 09:08 sulfamethoxazole Allergy Mouth Verified 07/11/21 09:08 [From Bactrim] burning/redness trimethoprim [From Bactrim] Allergy Mouth Verified 07/11/21 09:08 burning/redness Review of Systems Review of Systems: All systems reviewed & are unremarkable except as noted in HPI and below Constitutional: Constitutional: Denies chills, Denies fever(s) and Denies weakness ENT: Denies nasal congestion and Denies sore throat Cardiovascular: Cardiovascular: Reports chest pain, Denies rapid heart rate and Denies radiating jaw, neck or arm pain Respiratory: Respiratory: Reports cough, Denies dyspnea and Denies wheezing Comments: Change in sputum color Gastrointestinal: Gastrointestinal: Denies abdominal pain, Denies nausea and Denies vomiting Genitourinary: Genitourinary: Denies nocturia, Denies dysuria and Denies flank pain [facility] Past Medical History Medical History Adenomatous colon polyp Anxiety Arthritis Change in bowel habits Chronic sinusitis Collagen vascular disease Congestion of nasal sinus Constipation COPD (chronic obstructive pulmonary disease) Demyelinating disease Dysphagia Encounter for screening for other metabolic disorders Esophageal stricture Essential hypertension Family history of colon cancer Fibromyalgia Gastroesophageal reflux disease without esophagitis GERD (gastroesophageal reflux disease) High cholesterol History of tobacco abuse Hyperlipidemia due to dietary fat intake Hyperlipidemia, unspecified IBS (irritable bowel syndrome) ILD (interstitial lung disease) Small amount of interstitial lung disease was seen on base of lungs on chest CT 03/25/2018 which was an abdomen and pelvis CT Infectious colitis Kidney infection Kidney stones Lumbar radiculopathy Mass in neck Muscle cramps Olecranon bursitis, left elbow Oxygen dependent Rheumatoid arthritis Shortness of Breath Stomach ulcer Thrush Tobacco abuse Urge incontinence Wears glasses Surgical History Surgical History History of lumbar surgery Spinal cord stimulator implanted 05/23/21 Family History Family History
== END 2021-07-11 12:40 | disposition home or self-care (01) ==
PROVIDERS: Emergency Provider Emergency Medicine; PCP Internal Medicine
DX: J18.9 Pneumonia, unspecified organism (principal); J43.9 Emphysema, unspecified; I99.9 Unspecified disorder of circulatory system; G37.9 Demyelinating disease of central nervous system, unspecified; I10 Essential (primary) hypertension; E78.5 Hyperlipidemia, unspecified; M79.7 Fibromyalgia; M06.9 Rheumatoid arthritis, unspecified; K21.9 Gastro-esophageal reflux disease without esophagitis; K58.9 Irritable bowel syndrome, unspecified; J32.9 Chronic sinusitis, unspecified; Z87.442 Personal history of urinary calculi; Z86.010 Personal history of colon polyps; Z79.82 Long term (current) use of aspirin; R94.31 Abnormal electrocardiogram [ECG] [EKG]; Z96.82 Presence of neurostimulator; F17.210 Nicotine dependence, cigarettes, uncomplicated
CPT/HCPCS: 36415; 71045; 80053; 83690; 84484; 85025; 85610; 85730; 93005; 99284; A9270

== ENCOUNTER 2021-07-26 02:03 | Day surgery (SDC) | payer MEDICARE, MEDICAID, SELFPAY ==
[2021-07-17 10:15] VITALS: BMI 18.1
[2021-07-26 10:55] VITALS: BP 136/82; PULSE 102; RESP 18; TEMP 36.8; O2SAT 96; BMI 16.9
[2021-07-26] MEDS: LACTATED RINGERS 1,000 ML 150 ML IV CONT (11:18)
--- NOTE | 2021-07-26 11:18 | WPDANESEPPF ---
Anes - Initial Pre Proc Eval Procedure: Operation Date: 07/26/21 13:15 Proposed Procedures p Esophagogastroduodenoscopy - Channing Ryan MD Date/Time: 07/26/21 11:18 Surgeon: Channing Ryan MD Pre Op Diagnosis: dysphagia Patient Data Age: 66 Gender: F Height: 1.68 m Weight: 47.7 kg Last Vital Signs Temp 36.8 C 07/26/21 10:55 Pulse 102 H 07/26/21 10:55 Resp 18 07/26/21 10:55 BP 136/82 07/26/21 10:55 Pulse Ox 96 07/26/21 10:55 Allergies Allergy/AdvReac Type Severity Reaction Status Date / Time Penicillins Allergy Severe Anaphylaxis Verified 07/26/21 10:56 meperidine Allergy Unknown Itching Verified 07/26/21 10:56 sulfamethoxazole Allergy Mouth Verified 07/26/21 10:56 [From Bactrim] burning/redness trimethoprim [From Bactrim] Allergy Mouth Verified 07/26/21 10:56 burning/redness Home Medications Medication Instructions Recorded Confirmed Type aspirin 81 mg tablet,delayed 81 mg PO DAILY 06/02/19 07/26/21 History release loratadine 10 mg tablet 10 mg PO DAILY 06/02/19 07/26/21 History cyclobenzaprine 5 mg tablet 5 mg PO TID PRN tablet 01/05/20 07/26/21 History mecobalamin (vitamin B12) 1,000 1,000 mcg SUBLINGUAL EVERY OTHER 01/05/20 07/26/21 History mcg disintegrating DAY tablet,sublingual solifenacin 10 mg tablet 10 mg PO DAILY tablet 02/10/20 07/26/21 History fluticasone propionate 50 1 spray INTRANASAL DAILY 07/06/20 07/26/21 History mcg/actuation nasal spray,suspension hydrochlorothiazide 12.5 mg tablet 12.5 mg PO DAILY #90 tablet 02/15/21 07/26/21 Rx glycopyrrolate 9 mcg-formoterol 2 puff INHALATION Q12H #10.7 g 02/19/21 07/26/21 Rx 4.8 mcg HFA aerosol inhaler lovastatin 40 mg tablet 40 mg PO DAILY #90 tablet 12/13/21 03/25/22 Rx omeprazole 40 mg capsule,delayed 40 mg PO DAILY #90 cap 04/15/21 07/26/21 Rx release sertraline 100 mg tablet 100 mg PO DAILY #90 tablet 05/16/21 07/26/21 Rx gabapentin 300 mg capsule 300 mg PO QID #120 cap 06/13/21 07/26/21 Rx oxycodone myristate 13.5 mg 13.5 mg PO Q12H 06/14/21 07/26/21 History capsule sprinkle extend release 12hr(DON'T CRUSH) albuterol sulfate 1 inh INHALATION Q4H PRN 07/17/21 07/26/21 History metoprolol succinate 25 mg PO DAILY 07/17/21 07/26/21 History Patient hx anesthesia problems: none Family hx anesthesia problems: none Results Review: All pre-operative results and documents have been reviewed as part of the pre-operative evaluation. [facility] Past Medical History Medical History (Updated 07/26/21 @ 11:20 by Kuldip Wood, ) Adenomatous colon polyp Anxiety Arthritis Change in bowel habits Chronic sinusitis Collagen vascular disease Congestion of nasal sinus Constipation COPD (chronic obstructive pulmonary disease) Demyelinating disease Dysphagia Encounter for screening for other metabolic disorders Esophageal stricture Essential hypertension Family history of colon cancer Fibromyalgia Gastroesophageal reflux disease without esophagitis GERD (gastroesophageal reflux disease) High cholesterol History of tobacco abuse Hyperlipidemia due to dietary fat intake Hyperlipidemia, unspecified IBS (irritable bowel syndrome) ILD (interstitial lung disease) Small amount of interstitial lung disease was seen on base of lungs on chest CT 03/25/2018 which was an abdomen and pelvis CT Infectious colitis Kidney infection Kidney stones Lumbar radiculopathy Mass in neck Muscle cramps Olecranon bursitis, left elbow On home O2 Oxygen dependent Rheumatoid arthritis Shortness of Breath Stomach ulcer Thrush Tobacco abuse Urge incontinence Wears glasses Surgical History Surgical History History of lumbar surgery Spinal cord stimulator implanted 05/23/21 Family History Family History Mother Patient's mother is , Onset
--- NOTE | 2021-07-26 11:35 | WPDHPUPDATE1 ---
History and Physical Update Update Date/Time: 07/26/21 11:35 History and Physical has been reviewed, including an updated exam of the patient. There are NO changes in the patient's condition. Risks, benefits, and alternatives have been discussed and questions answered. Patient agrees to proceed with procedure.
[2021-07-26 11:53] VITALS: BP 121/52; PULSE 77; RESP 20; O2SAT 100
[2021-07-26 12:03] VITALS: BP 117/47; PULSE 75; RESP 28; O2SAT 100
[2021-07-26 12:13] VITALS: BP 119/50; PULSE 75; RESP 28; O2SAT 100
== END 2021-07-26 12:21 | disposition home or self-care (01) ==
PROVIDERS: PCP Internal Medicine; Visit Provider Internal Medicine Gastroenterology
PROC: 0DJ08ZZ Inspection of Upper Intestinal Tract, Via Natural or Artificial Opening Endoscopic (ICD-10-PCS; CPT 43235; principal; 2021-07-26 13:15)
DX: R13.19 Other dysphagia (principal); K22.2 Esophageal obstruction; Z79.82 Long term (current) use of aspirin; Z86.010 Personal history of colon polyps; M19.90 Unspecified osteoarthritis, unspecified site; J44.9 Chronic obstructive pulmonary disease, unspecified; G37.9 Demyelinating disease of central nervous system, unspecified; M35.9 Systemic involvement of connective tissue, unspecified; I10 Essential (primary) hypertension; Z80.0 Family history of malignant neoplasm of digestive organs; M79.7 Fibromyalgia; K21.9 Gastro-esophageal reflux disease without esophagitis; E78.00 Pure hypercholesterolemia, unspecified; E78.5 Hyperlipidemia, unspecified; K58.9 Irritable bowel syndrome, unspecified; J84.9 Interstitial pulmonary disease, unspecified; M54.16 Radiculopathy, lumbar region; Z99.81 Dependence on supplemental oxygen; M06.9 Rheumatoid arthritis, unspecified; Z96.82 Presence of neurostimulator; F17.210 Nicotine dependence, cigarettes, uncomplicated
CPT/HCPCS: 43249; C1726; J2704; J7120

== ENCOUNTER 2021-09-13 13:29 | Outpatient (CLI) | payer MEDICARE, MEDICAID, SELFPAY | END 2021-09-13 13:30 | disposition home or self-care (01) | LOC: ANHLAB 13:34 | PROVIDERS: PCP Internal Medicine; Visit Provider Physician Assistant | DX: J44.9 Chronic obstructive pulmonary disease, unspecified (principal); R05.8 Other specified cough | CPT/HCPCS: 87070; 87205 ==

== ENCOUNTER 2021-09-16 08:26 | Outpatient (CLI) | payer MEDICARE, MEDICAID, SELFPAY | END 2021-09-16 08:27 | disposition home or self-care (01) | PROVIDERS: PCP Internal Medicine; Visit Provider Physician Assistant | DX: J44.9 Chronic obstructive pulmonary disease, unspecified (principal); R05.8 Other specified cough | CPT/HCPCS: 87070; 87077; 87186; 87205 ==

== ENCOUNTER 2021-10-07 09:54 | Outpatient (CLI) | payer MEDICARE, MEDICAID, SELFPAY | END 2021-10-07 09:55 | disposition home or self-care (01) | LOC: ANHLAB 09:59 | PROVIDERS: PCP Internal Medicine; Visit Provider Physician Assistant | DX: J44.9 Chronic obstructive pulmonary disease, unspecified (principal) | CPT/HCPCS: 87070; 87205 ==

== ENCOUNTER 2021-10-25 11:02 | Outpatient (CLI) | payer MEDICARE, MEDICAID, SELFPAY ==
--- NOTE | ~2021-10-25 | CT_ITS ---
EXAMINATION: CT chest high resolution [facility] DATE: 10/25/2021 11:25 INDICATION: Worsening productive cough TECHNIQUE: Computed tomography (CT) of the chest was performed without intravenous contrast. The dose -length product (DLP) was 144.39 mGy-cm. 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 COMPARISON: 01/15/2021 FINDINGS: There is moderate to severe emphysema. There is a stable 5 mm nodule of the left upper lobe . There is a stable 3 mm nodule in the right upper lobe. No new pulmonary nodules are identified. The lungs are free of acute opacities. No pleural effusion or pneumothorax. There is scarring in the magy g apices. No pathologically enlarged thoracic lymph nodes are identified. The heart size is normal. C alcified coronary artery atherosclerosis is noted. There is mild thoracic spondylosis. Punctate calci fications in an otherwise normal spleen likely represent healed granulomatous disease. Nonobstructing stones of the left kidney measure up to 7 mm. IMPRESSION: 1. No CT correlate for the patient's symptoms. 2. Severe emphysema. Reviewed, dictated and finalized at location F.
== END 2021-10-25 11:03 | disposition home or self-care (01) ==
PROVIDERS: PCP Internal Medicine; Visit Provider Physician Assistant
DX: J84.9 Interstitial pulmonary disease, unspecified (principal); J43.9 Emphysema, unspecified
CPT/HCPCS: 71250

== ENCOUNTER 2021-11-21 08:52 | Outpatient (CLI) | payer MEDICARE, MEDICAID, SELFPAY ==
--- NOTE | 2021-12-10 22:33 | WPDSLEEPSTUD ---
Sleep Study Date of Study: 11/21/21 Ordering Provider: SOPHIE Becerra Interpreting Physician: Grace Mondragon DO Sleep Study Type: Polysomnogram Height: 1.68 m Weight: 53.07 kg Body Mass Index: 18.8 Neck Circumference (inches): 11.5 Valentines: 10 Reason for Sleep Study Unrefreshing sleep Sleep History The patient is a 66-year-old female with hypertension, GERD, COPD, chronic back pain with spinal cord stimulator, esophageal stricture, oxygen use with exertion, tobacco use and previously diagnosed complex sleep apnea that had a sleep study ordered by the Pulmonary office to requalify for ASV/PAP Therapy the patient was diagnosed with complex sleep apnea in 2006 and was prescribed ASV. She lost her the machine when moving and his not had therapy since 2009. The patient rarely awakens from sleep short of breath. She occasionally awakens at night with heartburn, belching or cough. She denies snoring. She frequently has trouble sleeping when she has a cold. She rarely wakes up gasping for air throughout the night. She rarely has breathing problems at night observed by herself or others. She occasionally sweats excessively at night. He denies having heart palpitations or irregular heartbeats during the night. She occasionally falls asleep during the day but never while driving. She denies cataplexy, sleep paralysis and hypnagogic/ hypnopompic hallucinations. He denies having trouble at school or work due to sleepiness. She denies feeling afraid of going to sleep. She rarely has nightmares. She rarely remembers her dreams. She denies having thoughts racing through her mind. She denies feeling sad or depressed. She denies having anxiety. She occasionally has muscular tension. She occasionally notices parts of her body jerk. She occasionally kicks during the night. She occasionally has crawling and aching feelings in her legs and occasionally has leg pain during the night. She occasionally grinds her teeth during sleep but never awakens with morning jaw pain. She is frequently bothered by pain during the day and occasionally awakened by pain during the night. She frequently wakes up feeling stiff in the morning. She occasionally wakes up with sore or achy muscles. She occasionally wakes up with pain in the neck, spine and other joints. She goes to bed at 10:00 p.m. on both weekdays and weekends. He is able to fall asleep immediately. She wakes up 2-6 times throughout the night for unknown reasons. She is able to fall asleep within 30 minutes to an hour. She wakes up at 7:00 a.m. on weekdays and between 7-8 a.m. on the weekends. She typically gets 7-12 hours of sleep per night. She does not stay in bed after waking up in the morning. She does not consume any caffeinated beverages within 2 hours of bedtime. She does not engage in physical exercise before bedtime. She will watch television before falling asleep. She will occasionally take naps in the afternoon or the evening but they are not refreshing. She drinks 2 cups of coffee and 2 cokes every day. She currently smokes 1 pack of cigarettes per day. She denies alcohol and recreational drug use. [facility] Past Medical History Medical History Adenomatous colon polyp Anxiety Arthritis Change in bowel habits Chronic narcotic use Chronic sinusitis Collagen vascular disease Congestion of nasal sinus Constipation COPD (chronic obstructive pulmonary disease) Demyelinating disease Dysphagia Encounter for screening for other metabolic disorders Esophageal stricture Essential hypertension Family history of colon cancer Fibromyalgia Gastroesophageal reflux disease without esophagitis GERD (gastroesophageal reflux disease) High cholesterol History of tobacco abuse Hyperlipidemia due to dietary fat intake Hyperlipidemia, unspecified IBS (irritable bowel syndrome) ILD (interstitial lung disease) Small amount
[2021-12-11 05:23] VITALS: BMI 18.8
--- NOTE | 2022-01-01 11:23 | SLEEP ---
pt has already received results
== END 2021-11-22 06:49 | disposition home or self-care (01) ==
LOC: ANHCSM 08:53
PROVIDERS: PCP Internal Medicine; Visit Provider Physician Assistant
DX: G47.10 Hypersomnia, unspecified (principal); J43.9 Emphysema, unspecified; G47.36 Sleep related hypoventilation in conditions classified elsewhere; G47.9 Sleep disorder, unspecified
CPT/HCPCS: 95810

== ENCOUNTER 2021-12-04 01:21 | Day surgery (SDC) | payer MEDICARE, MEDICAID, SELFPAY ==
[2021-11-19 14:06] VITALS: BMI 19.0
--- NOTE | 2021-12-03 15:22 | WPDANESEPPF ---
Anes - Initial Pre Proc Eval Procedure: Operation Date: 12/04/21 11:15 Proposed Procedures p Esophagogastroduodenoscopy - Channing Ryan MD Date/Time: 12/03/21 15:22 Surgeon: Channing Ryan MD Pre Op Diagnosis: dysphagia Patient Data Age: 66 Gender: F Height: 1.68 m Weight: 53.5 kg Allergies Allergy/AdvReac Type Severity Reaction Status Date / Time Penicillins Allergy Severe Anaphylaxis Verified 11/19/21 13:58 meperidine Allergy Unknown Itching Verified 11/19/21 13:58 sulfamethoxazole Allergy Mouth Verified 11/19/21 13:58 [From Bactrim] burning/redness trimethoprim [From Bactrim] Allergy Mouth Verified 11/19/21 13:58 burning/redness Home Medications Medication Instructions Recorded Confirmed Type aspirin 81 mg tablet,delayed 81 mg PO DAILY 06/02/19 11/19/21 History release (Adult Aspirin Regimen) cyclobenzaprine 5 mg tablet 5 mg PO BID PRN Muscle Spasticity 01/05/20 11/19/21 History solifenacin 10 mg tablet (Vesicare) 10 mg PO DAILY 02/10/20 11/19/21 History albuterol sulfate 90 mcg/actuation 1 inh inhalation Q4H PRN Shortness 07/17/21 11/19/21 History aerosol inhaler Of Breath glycopyrrolate 9 mcg-formoterol See Rx Instructions .Route 08/26/21 11/19/21 Rx 4.8 mcg HFA aerosol inhaler .COMPLEX #10.7 grams (Bevespi Aerosphere) fluticasone propionate 50 1 spray intranasal BID #48 grams 09/06/21 11/19/21 Rx mcg/actuation nasal spray,suspension metoprolol succinate 25 mg See Rx Instructions .Route 09/27/21 11/19/21 Rx tablet,extended release 24 hr .COMPLEX #90 tabs gabapentin 300 mg capsule See Rx Instructions .Route 10/11/21 11/19/21 Rx .COMPLEX #120 caps lovastatin 40 mg tablet See Rx Instructions .Route 10/11/21 11/19/21 Rx .COMPLEX #90 tabs omeprazole 40 mg capsule,delayed See Rx Instructions .Route 10/11/21 11/19/21 Rx release .COMPLEX #90 caps oxycodone myristate 13.5 mg 13.5 mg PO BID 11/19/21 11/19/21 History capsule sprinkle extend release 12hr(DON'T CRUSH) (Xtampza ER) sertraline 100 mg tablet See Rx Instructions .Route 11/19/21 11/19/21 Rx .COMPLEX #90 tabs Patient hx anesthesia problems: none Family hx anesthesia problems: none Results Review: All pre-operative results and documents have been reviewed as part of the pre-operative evaluation. [facility] Past Medical History Medical History (Updated 12/03/21 @ 15:24 by Brandon Wallace MD) Adenomatous colon polyp Anxiety Arthritis Change in bowel habits Chronic narcotic use Chronic sinusitis Collagen vascular disease Congestion of nasal sinus Constipation COPD (chronic obstructive pulmonary disease) Demyelinating disease Dysphagia Encounter for screening for other metabolic disorders Esophageal stricture Essential hypertension Family history of colon cancer Fibromyalgia Gastroesophageal reflux disease without esophagitis GERD (gastroesophageal reflux disease) High cholesterol History of tobacco abuse Hyperlipidemia due to dietary fat intake Hyperlipidemia, unspecified IBS (irritable bowel syndrome) ILD (interstitial lung disease) Small amount of interstitial lung disease was seen on base of lungs on chest CT 03/25/2018 which was an abdomen and pelvis CT Infectious colitis Kidney infection Kidney stones Lumbar radiculopathy Mass in neck Muscle cramps Olecranon bursitis, left elbow Olecranon bursitis, left elbow On home O2 Osteopenia Oxygen dependent PSVT (paroxysmal supraventricular tachycardia) Rheumatoid arthritis Shortness of Breath Stomach ulcer Tachycardia Thrush Tobacco abuse Tobacco abuse Urge incontinence Ventricular ectopics Wears glasses Surgical History Surgical History History of lumbar surgery Spinal cord stimulator implanted 05/23/21 Family History Family History Mother Patient's mother is ,
[2021-12-04 09:38] VITALS: BP 105/50; PULSE 70; RESP 16; TEMP 36.6; O2SAT 95
[2021-12-04] MEDS: LACTATED RINGERS 1,000 ML 150 ML IV CONT (09:46)
--- NOTE | 2021-12-04 10:34 | PM.HPGS ---
History of Present Illness History of Present Illness Consent: Risks, benefits, and alternatives have been discussed and questions answered. Patient agrees to proceed with procedure. Chief complaint: dysphagia Narrative: Melyssa Mccall is a 66 year old female with dysphagia, dilated up to 18 mm when found to have esophageal ring few months ago and helped Review of Systems Constitutional: Constitutional: Denies headache(s) and Denies weakness Eyes: Eyes: Denies blurry vision ENT: Reports Normal hearing present, Denies headache(s) and Denies neck pain Cardiovascular: Cardiovascular: Denies chest pain and Denies dyspnea Respiratory: Respiratory: Denies dyspnea Gastrointestinal: Gastrointestinal: Reports no additional gastrointestinal complaints Genitourinary: Genitourinary: Denies dysuria Musculoskeletal: Musculoskeletal: Denies neck pain Integumentary/Breasts: Skin/Breast: Denies dry skin Neurologic: Reports Normal hearing present, Denies headache(s) and Denies weakness Psychiatric: Psychiatric: Denies anxiety Endocrine: Endocrine: Denies change in body appearance Hematologic/Lymphatic: Hematologic/Lymphatic: Denies easy bleeding Allergic/Immunologic: Allergic/Immunologic: Denies urticaria PMF Past Medical History Medical History (Updated 12/03/21 @ 15:24 by Brandon Wallace MD) Adenomatous colon polyp Anxiety Arthritis Change in bowel habits Chronic narcotic use Chronic sinusitis Collagen vascular disease Congestion of nasal sinus Constipation COPD (chronic obstructive pulmonary disease) Demyelinating disease Dysphagia Encounter for screening for other metabolic disorders Esophageal stricture Essential hypertension Family history of colon cancer Fibromyalgia Gastroesophageal reflux disease without esophagitis GERD (gastroesophageal reflux disease) High cholesterol History of tobacco abuse Hyperlipidemia due to dietary fat intake Hyperlipidemia, unspecified IBS (irritable bowel syndrome) ILD (interstitial lung disease) Small amount of interstitial lung disease was seen on base of lungs on chest CT 03/25/2018 which was an abdomen and pelvis CT Infectious colitis Kidney infection Kidney stones Lumbar radiculopathy Mass in neck Muscle cramps Olecranon bursitis, left elbow Olecranon bursitis, left elbow On home O2 Osteopenia Oxygen dependent PSVT (paroxysmal supraventricular tachycardia) Rheumatoid arthritis Shortness of Breath Stomach ulcer Tachycardia Thrush Tobacco abuse Tobacco abuse Urge incontinence Ventricular ectopics Wears glasses Surgical History Surgical History History of lumbar surgery Spinal cord stimulator implanted 05/23/21 Family History Family History Mother Patient's mother is , Onset Age: 72 Sibling Carcinoma of colon Ovarian cancer Lung cancer Rectal cancer Family history of malignant neoplasm of breast in first degree relative Father Brain aneurysm Other Arthritis COPD (chronic obstructive pulmonary disease) Cerebrovascular accident High cholesterol Hypertension Lung disease Neuropathy Social History Social History Social History: caffeine-coffee/soda Smoking packs per day: 1 Smoking cigarettes per day: 20.0 Years smoked: 52 Smoking pack-years: 52.00 Smoking status: Current every day smoker Tobacco type: cigarettes Second hand tobacco smoke exposure: Yes Alcohol intake: former Substance use: current Substance use type: marijuana Last use: 11-18-2021 Living arrangements: alone Gender identity (if verbalized by the patient): Female Spiritual care concerns: No Meds Home Medications and Allergies Home Medications Medication Instructions Recorded Confirmed Type aspirin 81 mg tablet,delayed 81
[2021-12-04 10:50] VITALS: BP 98/47; PULSE 67; RESP 22; O2SAT 100
[2021-12-04 11:00] VITALS: BP 106/42; PULSE 65; RESP 25; O2SAT 100
[2021-12-04 11:10] VITALS: BP 97/56; PULSE 65; RESP 18; O2SAT 99
== END 2021-12-04 11:20 | disposition home or self-care (01) ==
PROVIDERS: PCP Internal Medicine; Visit Provider Internal Medicine Gastroenterology
PROC: 0DJ08ZZ Inspection of Upper Intestinal Tract, Via Natural or Artificial Opening Endoscopic (ICD-10-PCS; CPT 43235; principal; 2021-12-04 11:15)
DX: K22.2 Esophageal obstruction (principal); K44.9 Diaphragmatic hernia without obstruction or gangrene; J44.9 Chronic obstructive pulmonary disease, unspecified; I10 Essential (primary) hypertension; K21.9 Gastro-esophageal reflux disease without esophagitis; E78.5 Hyperlipidemia, unspecified; J84.9 Interstitial pulmonary disease, unspecified; F41.9 Anxiety disorder, unspecified; G37.9 Demyelinating disease of central nervous system, unspecified; Z99.81 Dependence on supplemental oxygen; M06.9 Rheumatoid arthritis, unspecified; F17.210 Nicotine dependence, cigarettes, uncomplicated; F12.90 Cannabis use, unspecified, uncomplicated; R64 Cachexia; Z68.1 Body mass index [BMI] 19.9 or less, adult; Z79.82 Long term (current) use of aspirin; Z79.51 Long term (current) use of inhaled steroids
CPT/HCPCS: 43249; C1726; J2704; J7120

== ENCOUNTER 2021-12-09 10:27 | Outpatient (CLI) | payer MEDICARE, MEDICAID, SELFPAY ==
--- NOTE | ~2021-12-09 | MM_ITS ---
EXAMINATION: MM screening deuce BI w vicki HISTORY: Screening mammogram, family history of breast cancer in her sister. TECHNIQUE: Craniocaudal and mediolateral oblique 3-D tomosynthesis images were obtained and synthetic 2-D images were generated. CAD analysis was submitted and interpreted. COMPARISON: 02/28/2020 BREAST PARENCHYMAL COMPOSITION: There are scattered areas of fibroglandular density. FINDINGS: RIGHT BREAST: There is a possible developing asymmetry in the middle/posterior third of the upper sabrina ast. LEFT BREAST: There is no suspicious mass, calcification, or architectural distortion to suggest malig osmin. There has been no significant interval change. IMPRESSION: 1. Possible developing asymmetry of the right breast. 2. Additional mammographic views and possible breast ultrasound are recommended. BI-RADS Category 0: Incomplete: Needs additional imaging evaluation. Reviewed, dictated and finalized at location A. IMPRESSION: 1. Possible developing asymmetry of the right breast. 2. Additional mammographic views and possible breast ultrasound are recommended . BI-RADS Category 0: Incomplete: Needs additional imaging evaluation.
== END 2021-12-09 10:28 | disposition home or self-care (01) ==
PROVIDERS: PCP Family Medicine; Visit Provider Nurse Practitioner
DX: Z12.31 Encounter for screening mammogram for malignant neoplasm of breast (principal); R92.8 Other abnormal and inconclusive findings on diagnostic imaging of breast
CPT/HCPCS: 77063; 77067

== ENCOUNTER 2021-12-13 07:59 | Outpatient (CLI) | payer MEDICARE, MEDICAID, SELFPAY ==
[2021-12-13 08:42] LABS: Basophils Percent Auto 0.5 % (0.2-1.2); Eosinophils Absolute Auto 0.1 K/mm3 (0-0.3); Eosinophils Percent Auto 2.2 % (0-4.4); Hematocrit 43.6 % (37.0-47.0); Immature Granulocyte Absolute 0.02 K/mm3 (0.00-0.031); Immature Granulocyte Percent A 0.4 % (0-0.5); Lymphocytes Absolute Auto 1.74 K/mm3 (0.9-3.2); Lymphocytes Percent Auto 31.8 % (18.3-44.2); Mean Corpuscular HGB Conc 32.1 g/dl (32-36); Mean Corpuscular Hemoglobin 30.4 pg (26-34); Mean Corpuscular Volume 94.6 fl (80-100); Mean Platelet Volume 10.5 fl (7.4-10.4); Monocytes Absolute Auto 0.4 K/mm3 (0.1-0.6); Monocytes Percent Auto 7.5 % (2.6-8.5); Neutrophils Absolute Auto 3.2 K/mm3 (1.3-6.7); Neutrophils Percent Auto 57.6 % (45.5-73.1); Platelet Count Result 166 k/mm3 (150-375); Red Blood Count 4.61 M/mm3 (4.2-5.4); Red Cell Distribution Width 14.3 % (11.5-14.5); White Blood Count 5.5 K/mm3 (4.5-10.0)
[2021-12-13 08:53] LABS: Hemoglobin A1C 5.6 % (<5.7)
== END 2021-12-13 08:00 | disposition home or self-care (01) ==
PROVIDERS: Nurse Practitioner; PCP Internal Medicine; Referring Provider Physician Assistant; Visit Provider Family Medicine
DX: E53.8 Deficiency of other specified B group vitamins (principal); R73.9 Hyperglycemia, unspecified; R73.03 Prediabetes; J44.9 Chronic obstructive pulmonary disease, unspecified
CPT/HCPCS: 36415; 82607; 83036; 85025

== ENCOUNTER 2021-12-16 08:41 | Outpatient (CLI) | payer MEDICARE, MEDICAID, SELFPAY | END 2021-12-16 08:42 | disposition home or self-care (01) | PROVIDERS: PCP Internal Medicine; Visit Provider Physician Assistant | DX: D64.9 Anemia, unspecified (principal) | CPT/HCPCS: 36415; 82728 ==

== ENCOUNTER 2021-12-24 11:50 | Outpatient (CLI) | payer MEDICARE, MEDICAID, SELFPAY ==
--- NOTE | ~2021-12-24 | MMUS_ITS ---
EXAMINATION: MM diagnostic deuce RT w vicki, US breast RT limited HISTORY: Follow-up right breast asymmetry TECHNIQUE: Additional 3-D tomosynthesis images of the right breast were performed and synthetic 2-D i mages were generated. CAD analysis was submitted and interpreted. High resolution Limited right breas t ultrasound was performed. COMPARISON: Comparison to multiple prior studies sequentially, with oldest reviewed study dated 02/02. BREAST PARENCHYMAL COMPOSITION: BREAST PARENCHYMAL COMPOSITION: There are scattered areas of fibroglandular density. FINDINGS: MAMMOGRAPHIC FINDINGS: Focal asymmetry in the upper central aspect of the right breast on prior screening mammogram compress es with spot views. No suspicious masses, calcifications or architectural distortion in the right sabrina ast. ULTRASOUND: Limited right breast ultrasound: At 1:00 in the subareolar location there is an oval circumscribed hy poechoic mass measuring 10 x 4 x 7 mm with parallel orientation, no significant posterior features an d no internal vascularity, likely benign. IMPRESSION: 1. Probable benign right breast mass at 1:00 near in the subareolar location measuring 10 mm maximum dimension. Recommendation: Six-month interval Limited right breast ultrasound recommended. BI-RADS CATEGORY 3-PROBABLY BENIGN FINDING RECOMMENDATION: 6 month follow up recommended. Reviewed, dictated and finalized at location A. IMPRESSION: 1. Probable benign right breast mass at 1:00 near in the subareolar location me asuring 10 mm maximum dimension. Recommendation: Six-month interval Limited right breast ultrasound recommended. BI-RADS CATEGORY 3-PROBABLY BENIGN FINDING RECOMMENDATION: 6 month follow up recommended.
== END 2021-12-24 11:51 | disposition home or self-care (01) ==
PROVIDERS: PCP Internal Medicine; Visit Provider Nurse Practitioner
DX: N64.89 Other specified disorders of breast (principal); R92.8 Other abnormal and inconclusive findings on diagnostic imaging of breast
CPT/HCPCS: 76642; 77061; 77065; G0279

== ENCOUNTER 2022-01-08 07:21 | Outpatient (CLI) | payer MEDICARE, MEDICAID, SELFPAY ==
--- NOTE | ~2022-01-08 | DEXA_ITS ---
Bone Density Report Name: CHELI GUARDADO Age: 66 Sex: Female Ethnicity: White Date of : 1955 Indication: postmenopausal; screening for osteoporosis; asthma or emphysema; hysterectomy; Referring Provider: LIVAN HEARN Study: Bone densitometry was performed. Exam Date: January 08, 2022 Accession number: [id number] Bone Density: Region BMD T-score Z-score Classification AP Spine(L1-L4) 0.803 -2.2 -0.2 Osteopenia Femoral Neck (Left) 0.636 -1.9 -0.2 Osteopenia Total Hip (Left) 0.694 -2.0 -0.6 Osteopenia Femoral Neck (Right) 0.577 -2.5 -0.7 Osteoporosis Total Hip (Right) 0.642 -2.5 -1.0 Osteoporosis Total Hip Mean 0.668 -2.3 -0.8 Osteopenia World Health Organization criteria for BMD impression classify patients as: Normal (T-score at or above -1.0), Osteopenia (T-score between -1.0 and -2.5), or Osteoporosis (T-score at or below -2.5). Clinical Information Provided by Patient: Smokes Has the following medical conditions: Asthma or Emphysema, Hysterectomy Patient maximum height was 67 Menopause Age: 23 No regular weight bearing exercise Drinks caffeinated beverages Onset of menses at age 8 Number of children 1 Impression: The patient has osteoporosis, based on the Right Total Hip T-score. The patient has risk factors, including: smoking. Discussion: INCREASED RISK OF FRACTURE. BONE DENSITY IS UNDESIRABLY LOW AT ONE OR MORE SKELETAL SITES, CONSISTENT WITH POSTMENOPAUSAL OSTEOPOROSIS. This patient's lowest T-score meets the World Health Organization's (WHO) criteria for osteoporosis at one or more sites (T-score -2.5 or below). In untreated patients, the risk of osteoporotic fracture increases approximately two-fold for each 1.0 SD decrease in T-score. Low bone density is not the only risk factor for fracture; also consider factors such as patient's age, frailty or poor health, risk of falling, risk of injury, previous osteoporotic fracture, family history of osteoporosis, cigarette smoking, low body weight, etc. Not everyone with low bone mineral density has osteoporosis; osteomalacia and other metabolic bone disorders should also be considered. Patients who have osteoporosis should be evaluated for specific diseases and conditions (secondary causes) that may cause or contribute to bone loss. The [place] [employer] Endocrinologists (AACE) and National Osteoporosis Foundation (NOF) recommend pharmacologic intervention for all postmenopausal women whose T-score is in this range. The patient should follow a healthful lifestyle (good nutrition with adequate calcium and vitamin D, and appropriate weight-bearing exercise). Follow-Up: Consider a repeat BMD and Vertebral Fracture Assessment (VFA) exam in 2 years or sooner if medically necessary, to reassess this patient's status. Reported by: JANINE on 01/08/2022 2:20:00 PM. Reviewed, dictated and finalized at
== END 2022-01-08 07:22 | disposition home or self-care (01) ==
PROVIDERS: PCP Internal Medicine; Visit Provider Nurse Practitioner
DX: Z78.0 Asymptomatic menopausal state (principal); M85.88 Other specified disorders of bone density and structure, other site; M85.852 Other specified disorders of bone density and structure, left thigh; M85.851 Other specified disorders of bone density and structure, right thigh; M81.0 Age-related osteoporosis without current pathological fracture
CPT/HCPCS: 77080

== ENCOUNTER 2022-02-11 10:50 | Outpatient (CLI) | payer MEDICARE, MEDICAID, SELFPAY | END 2022-02-11 10:51 | disposition home or self-care (01) | LOC: ANHLAB 10:57 | PROVIDERS: PCP Family Medicine; Visit Provider Physician Assistant | DX: D64.9 Anemia, unspecified (principal) | CPT/HCPCS: 36415; 82728 ==

== ENCOUNTER 2022-04-15 15:05 | Outpatient (CLI) | payer MEDICARE, MEDICAID, SELFPAY | END 2022-04-15 15:06 | disposition home or self-care (01) | LOC: ANHLAB 15:07 | PROVIDERS: PCP Family Medicine; Visit Provider Physician Assistant | DX: D64.9 Anemia, unspecified (principal) | CPT/HCPCS: 36415; 82728 ==

== ENCOUNTER 2022-05-12 14:38 | Outpatient (CLI) | payer MEDICARE, MEDICAID, SELFPAY ==
[2022-05-12 16:21] LABS: Influenza A QL RT-PCR Negative (Negative); Influenza B QL RT-PCR Negative (Negative); RSV RNA, RT-PCR Negative (Negative); SARS-CoV-2 RNA PCR Negative
== END 2022-05-12 14:39 | disposition home or self-care (01) ==
LOC: ANHLAB 14:40
PROVIDERS: PCP Family Medicine; Visit Provider Physician Assistant
DX: J84.9 Interstitial pulmonary disease, unspecified (principal); Z20.822 Contact with and (suspected) exposure to COVID-19
CPT/HCPCS: 87637

== ENCOUNTER 2022-06-04 00:33 | Day surgery (SDC) | payer MEDICARE, MEDICAID, SELFPAY ==
[2022-05-09 12:38] VITALS: BMI 17.8
[2022-06-04 07:12] VITALS: BP 145/67; PULSE 78; RESP 20; TEMP 36.4; O2SAT 97; BMI 17.0
[2022-06-04] MEDS: LACTATED RINGERS 1,000 ML 150 ML IV CONT (07:19)
--- NOTE | 2022-06-04 08:16 | WPDANESEPPF ---
Anes - Initial Pre Proc Eval Procedure: Operation Date: 06/04/22 08:30 Proposed Procedures p Esophagogastroduodenoscopy - Channing Ryan MD Date/Time: 06/04/22 08:16 Surgeon: Channing Ryan MD Pre Op Diagnosis: Dysphagia Patient Data Age: 66 Gender: F Height: 1.68 m Weight: 48 kg Last Vital Signs Temp 97.5 F L 06/04/22 07:12 Pulse 78 06/04/22 07:12 Resp 20 06/04/22 07:12 BP 145/67 H 06/04/22 07:12 Pulse Ox 97 06/04/22 07:12 O2 Del Method Room Air 06/04/22 07:12 Allergies Allergy/AdvReac Type Severity Reaction Status Date / Time Penicillins Allergy Severe Anaphylaxis Verified 06/04/22 07:08 meperidine Allergy Intermediate Itching Verified 06/04/22 07:08 sulfamethoxazole Allergy Intermediate Mouth Verified 06/04/22 07:08 [From Bactrim] burning/redness trimethoprim [From Bactrim] Allergy Intermediate Mouth Verified 06/04/22 07:08 burning/redness Home Medications Medication Instructions Recorded Confirmed Type aspirin 81 mg tablet,delayed 81 mg PO DAILY 06/02/19 05/09/22 History release (Adult Aspirin Regimen) cyclobenzaprine 5 mg tablet 5 mg PO BID 01/05/20 05/09/22 History solifenacin 10 mg tablet (Vesicare) 10 mg PO DAILY 02/10/20 05/09/22 History oxycodone myristate 13.5 mg 13.5 mg PO BID 11/19/21 05/09/22 History capsule sprinkle extend release 12hr(DON'T CRUSH) (Xtampza ER) lovastatin 40 mg tablet 40 mg PO DAILY 12/04/21 05/09/22 History metoprolol succinate 25 mg 25 mg PO DAILY 12/04/21 05/09/22 History tablet,extended release 24 hr omeprazole 40 mg capsule,delayed 40 mg PO DAILY 12/04/21 05/09/22 History release albuterol sulfate 90 mcg/actuation See Rx Instructions .Route 01/20/22 05/09/22 Rx aerosol inhaler (Ventolin HFA) .COMPLEX #8.5 grams alendronate 70 mg tablet 70 mg PO WEEKLY #13 tabs 01/22/22 05/09/22 Rx ascorbate calcium (vitamin C) 500 500 mg PO DAILY 01/22/22 05/09/22 History mg tablet ergocalciferol (vitamin D2) 1,250 1,250 mcg PO WEEKLY #13 caps 01/22/22 05/09/22 Rx mcg (50,000 unit) capsule mecobalamin (vitamin B12) 1,000 1,000 mcg PO DAILY 01/22/22 05/09/22 History mcg chewable tablet nystatin 100,000 unit/mL oral 5 ml PO QID PRN thrush #473 mL 01/22/22 05/09/22 Rx suspension sertraline 100 mg tablet See Rx Instructions .Route 02/24/22 05/09/22 Rx .COMPLEX #90 tabs pramipexole 0.25 mg tablet 0.25 mg PO .COMPLEX #90 tabs 03/11/22 05/09/22 Rx tiotropium 2.5 mcg-olodaterol 2.5 2 puff inhalation DAILY #4 grams 04/02/22 05/09/22 Rx mcg/actuation mist for inhalation (Stiolto Respimat) ferrous sulfate 325 mg (65 mg 325 mg PO Q48H 05/09/22 05/09/22 History iron) tablet fluticasone propionate 50 1 spray intranasal BID PRN Allergy 05/09/22 05/09/22 History mcg/actuation nasal Symptoms spray,suspension (Flonase Allergy Relief) gabapentin 300 mg capsule 300 mg PO QID 05/09/22 05/09/22 History loratadine 10 mg tablet (Claritin) 10 mg PO HS 05/09/22 05/09/22 History Patient hx anesthesia problems: none Family hx anesthesia problems: none Results Review: All pre-operative results and documents have been reviewed as part of the pre-operative evaluation. [facility] Past Medical History Medical History (Updated 03/31/22 @ 15:21 by Soraida Persaud MA) Adenomatous colon polyp Anxiety Arthritis Change in bowel habits Chronic narcotic use Chronic sinusitis Collagen vascular disease Congestion of nasal sinus Constipation COPD (chronic obstructive pulmonary disease) Demyelinating disease Dysphagia Encounter for screening for other metabolic disorders Esophageal dilatation Esophageal stricture Essential hypertension Family history of colon cancer Fibromyalgia Gastroesophageal reflux disease without esophagitis GERD (gastroesophageal reflux disease) High cholesterol History of tobacco abuse Hyperlipidemia due to dietary fat intake Hyperlipidemia, unspecified IBS (irritable
--- NOTE | 2022-06-04 08:26 | PM.HPGS ---
History of Present Illness History of Present Illness Consent: Risks, benefits, and alternatives have been discussed and questions answered. Patient agrees to proceed with procedure. Chief complaint: Dysphagia Narrative: Melyssa Mccall is a 66 year old female with dysphagia, had esophageal ring dilated up to 20 mm in the past that helped Review of Systems Constitutional: Constitutional: Denies headache(s) and Denies weakness Eyes: Eyes: Denies blurry vision ENT: Reports Normal hearing present, Denies headache(s) and Denies neck pain Cardiovascular: Cardiovascular: Denies chest pain and Denies dyspnea Respiratory: Respiratory: Denies dyspnea Gastrointestinal: Gastrointestinal: Reports no additional gastrointestinal complaints Genitourinary: Genitourinary: Denies dysuria Musculoskeletal: Musculoskeletal: Denies neck pain Integumentary/Breasts: Skin/Breast: Denies dry skin Neurologic: Reports Normal hearing present, Denies headache(s) and Denies weakness Psychiatric: Psychiatric: Denies anxiety Endocrine: Endocrine: Denies change in body appearance Hematologic/Lymphatic: Hematologic/Lymphatic: Denies easy bleeding Allergic/Immunologic: Allergic/Immunologic: Denies urticaria PMFSH Past Medical History Medical History (Updated 03/31/22 @ 15:21 by Soraida Persaud MA) Adenomatous colon polyp Anxiety Arthritis Change in bowel habits Chronic narcotic use Chronic sinusitis Collagen vascular disease Congestion of nasal sinus Constipation COPD (chronic obstructive pulmonary disease) Demyelinating disease Dysphagia Encounter for screening for other metabolic disorders Esophageal dilatation Esophageal stricture Essential hypertension Family history of colon cancer Fibromyalgia Gastroesophageal reflux disease without esophagitis GERD (gastroesophageal reflux disease) High cholesterol History of tobacco abuse Hyperlipidemia due to dietary fat intake Hyperlipidemia, unspecified IBS (irritable bowel syndrome) ILD (interstitial lung disease) Small amount of interstitial lung disease was seen on base of lungs on chest CT 03/25/2018 which was an abdomen and pelvis CT Infectious colitis Kidney infection Kidney stones Lumbar radiculopathy Mass in neck Muscle cramps Olecranon bursitis, left elbow Olecranon bursitis, left elbow On home O2 Osteopenia Oxygen dependent PSVT (paroxysmal supraventricular tachycardia) Rheumatoid arthritis RLS (restless legs syndrome) Shortness of Breath Stomach ulcer Tachycardia Thrush Tobacco abuse Tobacco abuse Trigger finger, left middle finger Urge incontinence Ventricular ectopics Wears glasses Surgical History Surgical History History of lumbar surgery Spinal cord stimulator implanted 05/23/21 Family History Family History Mother Patient's mother is , Onset Age: 72 Sibling Carcinoma of colon Ovarian cancer Lung cancer Rectal cancer Family history of malignant neoplasm of breast in first degree relative Father Brain aneurysm Other Arthritis COPD (chronic obstructive pulmonary disease) Cerebrovascular accident High cholesterol Hypertension Lung disease Neuropathy Social History Social History Social History: caffeine-coffee/soda Smoking packs per day: 1 Smoking cigarettes per day: 20.0 Years smoked: 55 Smoking pack-years: 55.00 Smoking status: Current every day smoker Tobacco type: cigarettes Second hand tobacco smoke exposure: Yes Alcohol intake: former Substance use: never Substance use type: does not use Last use: 11-18-2021 Living arrangements: with family Gender identity (if verbalized by the patient): Female Spiritual care concerns: No Meds Home Medications and Allergies Home Medications Med
[2022-06-04 08:39] VITALS: BP 104/53; PULSE 72; RESP 20; O2SAT 100
[2022-06-04 08:49] VITALS: BP 106/48; PULSE 70; RESP 19; O2SAT 95
[2022-06-04 08:59] VITALS: BP 113/55; PULSE 72; RESP 27; O2SAT 96
== END 2022-06-04 09:02 | disposition home or self-care (01) ==
PROVIDERS: PCP Family Medicine; Visit Provider Internal Medicine Gastroenterology
PROC: 0DJ08ZZ Inspection of Upper Intestinal Tract, Via Natural or Artificial Opening Endoscopic (ICD-10-PCS; CPT 43235; principal; 2022-06-04 08:30)
DX: K22.2 Esophageal obstruction (principal); J44.9 Chronic obstructive pulmonary disease, unspecified; I10 Essential (primary) hypertension; M79.7 Fibromyalgia; F41.9 Anxiety disorder, unspecified; E78.5 Hyperlipidemia, unspecified; J84.9 Interstitial pulmonary disease, unspecified; Z99.81 Dependence on supplemental oxygen; G25.81 Restless legs syndrome; I47.1 Supraventricular tachycardia; F17.210 Nicotine dependence, cigarettes, uncomplicated; Z79.51 Long term (current) use of inhaled steroids; Z79.82 Long term (current) use of aspirin
CPT/HCPCS: 43249; C1726; J2704; J7120

== ENCOUNTER 2022-07-23 08:23 | Outpatient (CLI) | payer MEDICARE, MEDICAID, SELFPAY ==
[2022-07-23 09:42] LABS: Basophils Percent Auto 0.5 % (0.2-1.2); Eosinophils Absolute Auto 0.1 K/mm3 (0-0.3); Eosinophils Percent Auto 1.4 % (0-4.4); Hematocrit 46.1 % (37.0-47.0); Hemoglobin 15.1 g/dL (12.0-15.0); Immature Granulocyte Absolute 0.02 K/mm3 (0.00-0.031); Immature Granulocyte Percent A 0.3 % (0-0.5); Lymphocytes Absolute Auto 2.07 K/mm3 (0.9-3.2); Lymphocytes Percent Auto 26.5 % (18.3-44.2); Mean Corpuscular HGB Conc 32.8 g/dl (32-36); Mean Corpuscular Hemoglobin 31.3 pg (26-34); Mean Corpuscular Volume 95.6 fl (80-100); Mean Platelet Volume 9.5 fl (7.4-10.4); Monocytes Absolute Auto 0.4 K/mm3 (0.1-0.6); Monocytes Percent Auto 5.6 % (2.6-8.5); Neutrophils Absolute Auto 5.1 K/mm3 (1.3-6.7); Neutrophils Percent Auto 65.7 % (45.5-73.1); Platelet Count Result 204 k/mm3 (150-375); Red Blood Count 4.82 M/mm3 (4.2-5.4); Red Cell Distribution Width 12.5 % (11.5-14.5); White Blood Count 7.8 K/mm3 (4.5-10.0)
[2022-07-23 10:55] LABS: Free T4 Free Thyroxine 1.23 ng/mL (0.78-2.19); Vitamin D 25 Hydroxy 52.6 ng/mL
[2022-07-23 10:57] LABS: Alanine Aminotransferase 18 U/L (6-35); Albumin Level 4.4 g/dL (3.5-5.1); Alkaline Phosphatase 118 U/L (38-126); Anion Gap 8 mmol/L (8-16); Aspartate Amino Transferase 23 U/L (14-36); Bilirubin,Total 0.8 mg/dL (0.2-1.3); Blood Urea Nitrogen 13 mg/dL (7-17); Carbon Dioxide 30 mmol/L (22-30); Chloride 103 mmol/L (98-107); Cholesterol 237 mg/dL (0-200); Estimated Glomerular Filt Rate > 60; Glucose 116 mg/dL (65-110); HDL Direct 46 mg/dL; Potassium 4.8 mmol/L (3.4-5.0); Sodium 141 mmol/L (137-145); Triglycerides 153 mg/dL (<150)
[2022-07-23 11:09] LABS: LDL Cholesterol Direct 134 mg/dL
[2022-07-23 11:19] LABS: Hemoglobin A1C 5.4 % (<5.7)
[2022-07-23 12:35] LABS: Folic Acid > 20.0 ng/mL (2.76->20)
== END 2022-07-23 08:24 | disposition home or self-care (01) ==
PROVIDERS: PCP Family Medicine; Visit Provider Family Medicine
DX: R53.83 Other fatigue (principal); E53.8 Deficiency of other specified B group vitamins; R73.9 Hyperglycemia, unspecified; E78.5 Hyperlipidemia, unspecified; E55.9 Vitamin D deficiency, unspecified
CPT/HCPCS: 36415; 80053; 80061; 82306; 82607; 82746; 83036; 84439; 84443; 85025

== ENCOUNTER 2022-09-02 06:51 | Outpatient (CLI) | payer MEDICARE, MEDICAID, SELFPAY | END 2022-09-02 06:52 | disposition home or self-care (01) | PROVIDERS: PCP Family Medicine; Visit Provider Physician Assistant | DX: D64.9 Anemia, unspecified (principal) | CPT/HCPCS: 36415; 82728 ==

== ENCOUNTER 2022-09-05 12:33 | Outpatient (CLI) | payer MEDICARE, MEDICAID, SELFPAY ==
--- NOTE | ~2022-09-05 | US_ITS ---
EXAMINATION: US breast RT limited HISTORY: Six-month follow-up for probably benign right breast mass TECHNIQUE: Limited right breast ultrasound was performed. FINDINGS: A 7 mm x 3 mm oval, circumscribed, parallel, hypoechoic mass with no posterior features or internal vascularity in the subareolar aspect of the right breast previously measured 10 mm x 4 mm. I nterval decrease in size is consistent with a benign finding. IMPRESSION: Benign subareolar right breast mass. Routine screening mammography is recommended, due in December. BI-RADS Category 2: Benign finding(s). Reviewed, dictated and finalized at location A. IMPRESSION: Benign subareolar right breast mass. Routine screening mammography is recommend ed, due in December. BI-RADS Category 2: Benign finding(s).
== END 2022-09-05 12:34 | disposition home or self-care (01) ==
PROVIDERS: PCP Family Medicine; Visit Provider Clinical Nurse Specialist
DX: R92.8 Other abnormal and inconclusive findings on diagnostic imaging of breast (principal)
CPT/HCPCS: 76642

== ENCOUNTER 2022-09-24 07:39 | Outpatient (CLI) | payer MEDICARE, MEDICAID, SELFPAY ==
--- NOTE | ~2022-09-24 | XR_ITS ---
EXAM: XR abdomen/kub 1V DATE: 09/24/2022 08:03 HISTORY: CALCIUM KIDNEY STONE FU . COMPARISON: 10/08/2020; CT abdomen pelvis 03/25/2018. FINDINGS: Bibasilar scar. Left-sided stimulator pack, leads terminate out of the hrtup-mm-ault. Norm al bowel gas pattern. No organomegaly. Right renal scarring. Atherosclerotic arterial calcifications and pelvic phleboliths. Presumed vascular calcification adjacent to the left L2 transverse process al karon the medial margin of the kidney shadow. Amorphous/serpiginous calcification projecting over the l eft upper and medial renal shadow, also presumably vascular, or at least extrarenal. Mild lumbar dege nerative disc disease and bilateral hip osteoarthritis. IMPRESSION: No definite nephrolithiasis. Consider CT of the abdomen and pelvis if there is persistent clinical concern for nephrolithiasis. Reviewed, dictated and finalized at [facility], located within [facility].
== END 2022-09-24 07:40 | disposition home or self-care (01) ==
PROVIDERS: PCP Family Medicine; Visit Provider Urology
DX: N20.0 Calculus of kidney (principal)
CPT/HCPCS: 74018

== ENCOUNTER 2022-10-27 12:16 | Outpatient (CLI) | payer MEDICARE, MEDICAID, SELFPAY ==
--- NOTE | ~2022-10-27 | CT_ITS ---
EXAMINATION: CT lung screening DATE: 10/27/2022 13:01 INDICATION: Personal history of nicotine dependence, current smoker with 50 pack year history TECHNIQUE: Computed tomography (CT) of the chest was performed without intravenous contrast. The dose -length product (DLP) was 67.40 mGy-cm. Automated exposure control and iterative reconstruction techn Saa[employer]urance[employer] were employed. COMPARISON: 10/25/2021 FINDINGS: There is severe emphysema. There is a stable 5 mm nodule of the left upper lobe. There is s table 3 mm nodule of the right upper lobe. The lungs are free of acute opacities. No pleural effusion or pneumothorax. There is scarring and calcification of the lung apices. Calcified coronary artery a therosclerosis is noted. No pathologically enlarged thoracic lymph nodes are identified. The heart si ze is normal. There is mild thoracic spondylosis. IMPRESSION: 1. Lung-RADS category 2: Benign appearance or behavior. Continue annual screening with noncontrast lo w-dose chest CT in 12 months. Reviewed, dictated and finalized at location [] IMPRESSION: 1. Lung-RADS category 2: Benign appearance or behavior. Continue annual screeni ng with noncontrast low-dose chest CT in 12 months.
== END 2022-10-27 12:17 | disposition home or self-care (01) ==
PROVIDERS: PCP Family Medicine; Visit Provider Physician Assistant
DX: Z12.2 Encounter for screening for malignant neoplasm of respiratory organs (principal); Z87.891 Personal history of nicotine dependence
CPT/HCPCS: 71271

== ENCOUNTER 2022-12-11 09:34 | Outpatient (CLI) | payer MEDICARE, MEDICAID, SELFPAY | END 2022-12-11 09:35 | disposition home or self-care (01) | LOC: ANHLAB 09:37 | PROVIDERS: PCP Family Medicine; Visit Provider Physician Assistant | DX: D64.9 Anemia, unspecified (principal) | CPT/HCPCS: 36415; 82728 ==

== ENCOUNTER 2023-03-11 07:27 | Outpatient (CLI) | payer MEDICARE, MEDICAID, SELFPAY ==
[2023-03-11 08:07] LABS: Cholesterol 189 mg/dL (0-200); HDL Direct 58 mg/dL; Triglycerides 164 mg/dL (<150)
[2023-03-11 08:18] LABS: LDL Cholesterol Direct 92 mg/dL
[2023-03-11 08:26] LABS: Vitamin D 25 Hydroxy 20.9 ng/mL
== END 2023-03-11 07:28 | disposition home or self-care (01) ==
PROVIDERS: PCP Family Medicine; Visit Provider Family Medicine
DX: Z12.31 Encounter for screening mammogram for malignant neoplasm of breast (principal); E78.5 Hyperlipidemia, unspecified; E55.9 Vitamin D deficiency, unspecified; Z53.8 Procedure and treatment not carried out for other reasons
CPT/HCPCS: 36415; 80061; 82306

== ENCOUNTER 2023-05-07 13:59 | Outpatient (CLI) | payer MEDICARE, MEDICAID, SELFPAY ==
[2023-05-07 15:03] LABS: Influenza A QL RT-PCR Negative (Negative); Influenza B QL RT-PCR Negative (Negative); RSV RNA, RT-PCR Negative (Negative); SARS-CoV-2 RNA PCR Negative (Negative)
== END 2023-05-07 14:00 | disposition home or self-care (01) ==
LOC: ANHLAB 14:01
PROVIDERS: PCP Family Medicine; Visit Provider Physician Assistant
DX: J84.9 Interstitial pulmonary disease, unspecified (principal); Z20.822 Contact with and (suspected) exposure to COVID-19
CPT/HCPCS: 87637

== ENCOUNTER 2023-05-20 08:52 | Outpatient (CLI) | payer MEDICARE, MEDICAID, SELFPAY ==
--- NOTE | ~2023-05-20 | NM_ITS ---
EXAMINATION: NM denver stress w perfusion DATE: 05/20/2023 12:33 INDICATION: Other forms of dyspnea TECHNIQUE: Rest images were obtained following intravenous administration of 9.7 mCi Tc99m tetrofosmi n (Myoview). The patient was infused intravenously with Lexiscan (Regadenoson). Then, 31 mCi Tc99m te trofosmin (Myoview) was administered intravenously, and stress images were obtained. Data was reconst ructed into short axis and horizontal and vertical long axis SPECT images. Gated SPECT images were al so obtained. COMPARISON: None. FINDINGS: There is no definite reversible or fixed perfusion abnormality to suggest ischemia or infar ction. There is normal left ventricular chamber size, wall motion and ejection fraction. Left ventr icular ejection fraction measures >70%. IMPRESSION: 1. Normal myocardial perfusion at rest and during stress. 2. Left ventricular ejection fraction measuring >70%. Reviewed, dictated and finalized at location A. P TECHNICIAN
--- NOTE | 2023-05-20 09:45 | EST_ITS ---
Patient Info Name: Melyssa Mccall Age: 67 years : 1955 Gender: Female Ht: 65 in Wt: 103 lbs BSA: 1.45 m2 HR: 80 bpm BP: 145 / 81 mmHg Exam Date: 05/20/2023 10:25 AM Exam Location: [facility] Patient Status: Outpatient Admit Date: 05/20/2023 Staff Ordering Physician: Josh Lane DO Attending Provider: Josh Lane DO Exercise Technologist: Merary Narvaez RDCS Exercise Physician: Josh Lane DO Exam Type: CA stress [place] w NM Study Info Indications R06.09 - Other forms of dyspnea A regadenoson stress test was performed. Summary 1. 1. Negative lexiscan stress test for ischemic ST changes by ECG criteria. 2. 2. Baseline hypertension. 3. 3. Nuclear scan to follow and will be reported separately. Please correlate with it. 4. 4. Patient informed of the above results. Protocol: Lexiscan Stress ECG Details Stage: REST Duration (min): 1 min : 5 sec HR (bpm): 83 SBP (mmHg): 145 DBP (mmHg): 81 Stage: REST Duration (min): 10 min : 53 sec HR (bpm): 89 SBP (mmHg): 145 DBP (mmHg): 81 Stage: STAGE 1 Duration (min): 1 min : 0 sec HR (bpm): 91 SBP (mmHg): 128 DBP (mmHg): 61 Stage: RECOVERY Duration (min): 1 min : 0 sec HR (bpm): 96 SBP (mmHg): 128 DBP (mmHg): 61 Stage: RECOVERY Duration (min): 2 min : 0 sec HR (bpm): 98 SBP (mmHg): 128 DBP (mmHg): 61 Stage: RECOVERY Duration (min): 3 min : 0 sec HR (bpm): 96 SBP (mmHg): 169 DBP (mmHg): 67 Stage: RECOVERY Duration (min): 3 min : 32 sec HR (bpm): 92 SBP (mmHg): 169 DBP (mmHg): 67 Rest HR: 89 bpm Peak HR: 101 bpm Rest Sys BP: 145 mmHg Peak Sys BP: 169 mmHg Max Pred HR: 151 bpm % Max Pred HR: 67 % Target HR: 128 bpm Max RPP: 17,069 bpm*mmHg Termination Reason: Completed protocol Cardiac Symptoms: Shortness of breath Total Time: 1 min : 0 sec Rest Grider BP: 81 mmHg Peak Grider BP: 67 mmHg Total Dose: 0.4 mg Resting ECG Sinus rhythm, PVC's, IRBBB. Stress ECG No ST changes. Arrhythmias None. Report Signatures
== END 2023-05-20 08:53 | disposition home or self-care (01) ==
PROVIDERS: PCP Family Medicine; Visit Provider Internal Medicine Cardiovascular Disease
DX: R06.09 Other forms of dyspnea (principal); Z01.810 Encounter for preprocedural cardiovascular examination; I10 Essential (primary) hypertension
CPT/HCPCS: 78452; 93017; A9502; J2785

== ENCOUNTER 2023-05-21 04:03 | Day surgery (SDC) | payer MEDICARE, MEDICAID, SELFPAY ==
[2023-05-11 14:10] VITALS: BMI 17.3
--- NOTE | 2023-05-21 11:24 | WPDANESEPPF ---
Anes - Initial Pre Proc Eval Procedure: Operation Date: 05/21/23 13:00 Proposed Procedures p Esophagogastroduodenoscopy - Channing Ryan MD Date/Time: 05/21/23 11:24 Surgeon: Channing Ryan MD Pre Op Diagnosis: dyspahgia Patient Data Age: 67 Gender: F Height: 1.68 m Weight: 48.8 kg Allergies Allergy/AdvReac Type Severity Reaction Status Date / Time Penicillins Allergy Severe Anaphylaxis Verified 05/21/23 11:23 meperidine Allergy Intermediate Itching Verified 05/21/23 11:23 sulfamethoxazole Allergy Intermediate Mouth Verified 05/21/23 11:23 [From Bactrim] burning/redness trimethoprim [From Bactrim] Allergy Intermediate Mouth Verified 05/21/23 11:23 burning/redness Home Medications Medication Instructions Recorded Confirmed Type aspirin 81 mg tablet,delayed 81 mg PO DAILY 06/02/19 05/21/23 History release (Adult Aspirin Regimen) cyclobenzaprine 5 mg tablet 5 mg PO BID 01/05/20 05/21/23 History oxycodone myristate 13.5 mg 13.5 mg PO BID 11/19/21 05/21/23 History capsule sprinkle extend release 12hr(DON'T CRUSH) (Xtampza ER) fluticasone propionate 50 1 spray intranasal BID PRN Allergy 05/09/22 05/21/23 History mcg/actuation nasal Symptoms spray,suspension (Flonase Allergy Relief) tiotropium 2.5 mcg-olodaterol 2.5 2 puff inhalation DAILY #4 grams 09/26/22 05/21/23 Rx mcg/actuation mist for inhalation (Stiolto Respimat) albuterol sulfate 90 mcg/actuation See Rx Instructions .Route 11/10/22 05/21/23 Rx aerosol inhaler (Ventolin HFA) .COMPLEX #8.5 grams paroxetine HCl 20 mg tablet (Paxil) 20 mg PO DAILY #90 tabs 12/17/22 05/21/23 Rx guaifenesin 600 mg tablet, 600 mg PO BID PRN allergies 12/19/22 05/21/23 History extended release 12 hr (Mucinex) lovastatin 40 mg tablet 40 mg PO DAILY #90 tabs 01/12/23 05/21/23 Rx solifenacin 10 mg tablet (Vesicare) 5 mg PO DAILY 02/04/23 05/21/23 History ferrous sulfate 325 mg (65 mg 325 mg PO DAILY #30 tabs 02/26/23 05/21/23 Rx iron) tablet nystatin 100,000 unit/mL oral 5 ml PO QID PRN thrush #473 mL 03/09/23 05/21/23 Rx suspension omeprazole 40 mg capsule,delayed 40 mg PO DAILY #90 caps 03/24/23 05/21/23 Rx release metoprolol succinate 25 mg See Rx Instructions .Route 03/31/23 05/21/23 Rx tablet,extended release 24 hr .COMPLEX #90 tabs pramipexole 0.25 mg tablet 0.25 mg PO .COMPLEX #90 tabs 03/31/23 05/21/23 Rx gabapentin 300 mg capsule 300 mg PO BID 05/11/23 05/21/23 History Patient hx anesthesia problems: none Family hx anesthesia problems: none Results Review: All pre-operative results and documents have been reviewed as part of the pre-operative evaluation. [facility] Past Medical History Medical History Adenomatous colon polyp Anxiety Arthritis Change in bowel habits Chronic narcotic use Chronic sinusitis Collagen vascular disease Congestion of nasal sinus Constipation COPD (chronic obstructive pulmonary disease) Demyelinating disease Dysphagia Encounter for screening for other metabolic disorders Esophageal dilatation Esophageal stricture Essential hypertension Family history of colon cancer Fibromyalgia Gastroesophageal reflux disease without esophagitis GERD (gastroesophageal reflux disease) High cholesterol History of tobacco abuse Hyperlipidemia due to dietary fat intake Hyperlipidemia, unspecified IBS (irritable bowel syndrome) ILD (interstitial lung disease) Small amount of interstitial lung disease was seen on base of lungs on chest CT 03/25/2018 which was an abdomen and pelvis CT Infectious colitis Kidney infection Kidney stones Lumbar radiculopathy Mass in neck Muscle cramps Olecranon bursitis, left elbow Olecranon bursitis, left elbow On home O2 Osteopenia Oxygen dependent PSVT (paroxysmal supraventricular tachycardia) Rheumatoid arthritis RLS (restless legs syndrome) Shortness of Breath Stomach ulcer Ta
[2023-05-21 11:28] VITALS: BP 103/61; PULSE 77; RESP 16; TEMP 36.3; O2SAT 96
--- NOTE | 2023-05-21 11:33 | PM.HPGS ---
History of Present Illness History of Present Illness Consent: Risks, benefits, and alternatives have been discussed and questions answered. Patient agrees to proceed with procedure. Chief complaint: dysphagia Narrative: Melyssa Mccall is a 67 year old female with recurrent dysphagia, 1 year ago EGD with balloon dilation of Schatzki ring up to 18mm, that helped but recently again with dysphagia. Review of Systems Constitutional: Constitutional: Denies headache(s) and Denies weakness Eyes: Eyes: Denies blurry vision ENT: Reports Normal hearing present, Denies headache(s) and Denies neck pain Cardiovascular: Cardiovascular: Denies chest pain and Denies dyspnea Respiratory: Respiratory: Denies dyspnea Gastrointestinal: Gastrointestinal: Reports no additional gastrointestinal complaints Genitourinary: Genitourinary: Denies dysuria Musculoskeletal: Musculoskeletal: Denies neck pain Integumentary/Breasts: Skin/Breast: Denies dry skin Neurologic: Reports Normal hearing present, Denies headache(s) and Denies weakness Psychiatric: Psychiatric: Denies anxiety Endocrine: Endocrine: Denies change in body appearance Hematologic/Lymphatic: Hematologic/Lymphatic: Denies easy bleeding Allergic/Immunologic: Allergic/Immunologic: Denies urticaria PMFSH Past Medical History Medical History Adenomatous colon polyp Anxiety Arthritis Change in bowel habits Chronic narcotic use Chronic sinusitis Collagen vascular disease Congestion of nasal sinus Constipation COPD (chronic obstructive pulmonary disease) Demyelinating disease Dysphagia Encounter for screening for other metabolic disorders Esophageal dilatation Esophageal stricture Essential hypertension Family history of colon cancer Fibromyalgia Gastroesophageal reflux disease without esophagitis GERD (gastroesophageal reflux disease) High cholesterol History of tobacco abuse Hyperlipidemia due to dietary fat intake Hyperlipidemia, unspecified IBS (irritable bowel syndrome) ILD (interstitial lung disease) Small amount of interstitial lung disease was seen on base of lungs on chest CT 03/25/2018 which was an abdomen and pelvis CT Infectious colitis Kidney infection Kidney stones Lumbar radiculopathy Mass in neck Muscle cramps Olecranon bursitis, left elbow Olecranon bursitis, left elbow On home O2 Osteopenia Oxygen dependent PSVT (paroxysmal supraventricular tachycardia) Rheumatoid arthritis RLS (restless legs syndrome) Shortness of Breath Stomach ulcer Tachycardia Thrush Tobacco abuse Tobacco abuse Trigger finger, left middle finger Urge incontinence Ventricular ectopics Wears glasses Surgical History Surgical History History of lumbar surgery Spinal cord stimulator implanted 05/23/21 Family History Family History Mother Patient's mother is , Onset Age: 72 Sibling Carcinoma of colon Ovarian cancer Lung cancer Rectal cancer Family history of malignant neoplasm of breast in first degree relative Father Brain aneurysm Other Arthritis COPD (chronic obstructive pulmonary disease) Cerebrovascular accident High cholesterol Hypertension Lung disease Neuropathy Social History Social History (Updated 04/23/23 @ 14:12 by Soraida Persaud MA) Social History: caffeine-coffee/soda Smoking packs per day: 1 Smoking cigarettes per day: 20.0 Years smoked: 55 Smoking pack-years: 55.00 Smoking status: Current every day smoker Tobacco type: cigarettes Second hand tobacco smoke exposure: Yes Alcohol intake: former Substance use type: does not use Other substance usage details: Edibles Last use: 11-18-2021 Lack of Transportation: No Lack of Food: Never True Current Housing: I Have Housing Concerned About Future
[2023-05-21] MEDS: LACTATED RINGERS 1,000 ML 150 ML IV CONT (11:39)
[2023-05-21] MEDS: BENZOCAINE (*SP) 60 ML SPRAY CAN (HURRICAINE) 1 SPRAY MUCOUS MEM (11:44)
[2023-05-21 11:50] VITALS: BP 97/50; PULSE 66; RESP 20; O2SAT 100
[2023-05-21 12:00] VITALS: BP 105/56; PULSE 66; RESP 19; O2SAT 100
[2023-05-21 12:10] VITALS: BP 105/56; PULSE 70; RESP 21; O2SAT 98
== END 2023-05-21 12:27 | disposition home or self-care (01) ==
PROVIDERS: PCP Family Medicine; Visit Provider Internal Medicine Gastroenterology
PROC: 0DJ08ZZ Inspection of Upper Intestinal Tract, Via Natural or Artificial Opening Endoscopic (ICD-10-PCS; CPT 43235; principal; 2023-05-21 13:00)
DX: K22.2 Esophageal obstruction (principal); K21.9 Gastro-esophageal reflux disease without esophagitis; F41.9 Anxiety disorder, unspecified; J32.9 Chronic sinusitis, unspecified; J44.9 Chronic obstructive pulmonary disease, unspecified; G37.9 Demyelinating disease of central nervous system, unspecified; I10 Essential (primary) hypertension; E78.00 Pure hypercholesterolemia, unspecified; K58.9 Irritable bowel syndrome, unspecified; J84.9 Interstitial pulmonary disease, unspecified; M85.80 Other specified disorders of bone density and structure, unspecified site; G25.81 Restless legs syndrome; N39.41 Urge incontinence; F17.210 Nicotine dependence, cigarettes, uncomplicated; Z79.82 Long term (current) use of aspirin; Z79.51 Long term (current) use of inhaled steroids; Z79.891 Long term (current) use of opiate analgesic; Z99.81 Dependence on supplemental oxygen; Z98.1 Arthrodesis status; Z96.82 Presence of neurostimulator; Z87.39 Personal history of other diseases of the musculoskeletal system and connective tissue; Z86.79 Personal history of other diseases of the circulatory system; Z80.0 Family history of malignant neoplasm of digestive organs; Z80.41 Family history of malignant neoplasm of ovary; Z80.1 Family history of malignant neoplasm of trachea, bronchus and lung; Z80.3 Family history of malignant neoplasm of breast; Z82.49 Family history of ischemic heart disease and other diseases of the circulatory system
CPT/HCPCS: 43249; C1726; J2704; J7120

== ENCOUNTER 2023-05-22 11:39 | Outpatient (CLI) | payer MEDICARE, MEDICAID, SELFPAY ==
[2023-05-22 19:13] LABS: Basophils Absolute Auto 0.1 K/mm3 (0.0-0.1); Basophils Percent Auto 0.9 % (0.2-1.2); Eosinophils Absolute Auto 0.2 K/mm3 (0-0.3); Eosinophils Percent Auto 2.5 % (0-4.4); Hematocrit 44.2 % (37.0-47.0); Hemoglobin 13.8 g/dL (12.0-15.0); Immature Granulocyte Absolute 0.02 K/mm3 (0.00-0.031); Immature Granulocyte Percent A 0.3 % (0-0.5); Lymphocytes Absolute Auto 2.06 K/mm3 (0.9-3.2); Lymphocytes Percent Auto 27.5 % (18.3-44.2); Mean Corpuscular HGB Conc 31.2 g/dl (32-36); Mean Corpuscular Hemoglobin 31.2 pg (26-34); Mean Platelet Volume 10.1 fl (7.4-10.4); Monocytes Absolute Auto 0.6 K/mm3 (0.1-0.6); Monocytes Percent Auto 7.3 % (2.6-8.5); Neutrophils Absolute Auto 4.6 K/mm3 (1.3-6.7); Neutrophils Percent Auto 61.5 % (45.5-73.1); Platelet Count Result 208 k/mm3 (150-375); Red Blood Count 4.42 M/mm3 (4.2-5.4); Red Cell Distribution Width 12.3 % (11.5-14.5); White Blood Count 7.5 K/mm3 (4.5-10.0)
[2023-05-22 19:24] LABS: Alanine Aminotransferase 18 U/L (6-35); Albumin Level 3.7 g/dL (3.5-5.1); Alkaline Phosphatase 92 U/L (38-126); Anion Gap 4 mmol/L (8-16); Aspartate Amino Transferase 36 U/L (14-36); Bilirubin,Total 0.9 mg/dL (0.2-1.3); Blood Urea Nitrogen 15 mg/dL (7-17); Calcium 8.8 mg/dL (8.4-10.2); Carbon Dioxide 33 mmol/L (22-30); Chloride 101 mmol/L (98-107); Estimated Glomerular Filt Rate > 60; Glucose 94 mg/dL (65-110); Potassium 4.6 mmol/L (3.4-5.0); Sodium 138 mmol/L (137-145)
== END 2023-05-22 11:40 | disposition home or self-care (01) ==
LOC: ANHGOSHLAB 11:41
PROVIDERS: PCP Family Medicine; Visit Provider Nurse Practitioner
DX: A09 Infectious gastroenteritis and colitis, unspecified (principal); I47.10 Supraventricular tachycardia, unspecified
CPT/HCPCS: 36415; 80053; 85025

== ENCOUNTER 2023-06-01 11:45 | Outpatient (CLI) | payer MEDICARE, MEDICAID, SELFPAY ==
--- NOTE | 2023-06-01 12:05 | ECG_ITS ---
Measurements Intervals [place] Rate: 76 P: 83 WV: 153 QRS: 34 QRSD: 86 T: 72 QT: 366 QTc: 412 Interpretive Statements SINUS RHYTHM VENTRICULAR PREMATURE COMPLEXES POSSIBLE LEFT ATRIAL ENLARGEMENT RSR' IN V1 OR V2, PROBABLY NORMAL VARIANT DELAYED PRECORDIAL R/S TRANSITION BASELINE ARTIFACT- I, II, III, AVR, AVL, AVF, V1, V4-V6 BORDERLINE ECG COMPARED TO ECG 07/11/2021 10:07:45 NO SIGNIFICANT CHANGES Electronically Signed On 06-01-2023 13:06:43 CERTIFIED SURGICAL TECHNOLOGIST by Josh Lane D.O.
== END 2023-06-01 11:46 | disposition home or self-care (01) ==
LOC: ANHSURGERY 11:50
PROVIDERS: PCP Family Medicine; Visit Provider Orthopaedic Surgery
DX: I10 Essential (primary) hypertension (principal); R94.31 Abnormal electrocardiogram [ECG] [EKG]
CPT/HCPCS: 93005

== ENCOUNTER 2023-06-05 01:01 | Day surgery (SDC) | payer MEDICARE, MEDICAID, SELFPAY ==
--- NOTE | 2023-05-25 11:19 | PC.NURSE ---
Report to the Outpatient Waiting Room, entrance under the green pavilion located off [facility], at time __0600 on date _06/05/23 . Planned Procedure Time: __729 . Time changes happen often and if your time is changed the preop area will call you the afternoon before. - You and your visitor will be asked to self-screen and do not enter if you have any COVID symptoms. - A mask is optional within the hospital at this time. Patients may have clear liquids (water, carbonated beverages, clear teas, apple juice) until 3 hours prior to surgery ( 4:30 AM)with a maximum of 20 ounces. - No food from midnight until time of surgery - Infants may have breast milk until 4 hours before surgery, infant formula 6 hours prior to surgery. - Children will be allowed to drink immediately following surgery. If applicable, please bring a bottle or sippy cup to assist with drinking. Juice, water, soda, and popsicles are readily available. For infants on formula, please bring formula the day of surgery. Pacifiers are allowed. Take the following medications with a SIP of water the morning of surgery: _GABAPENTIN,METOPROLOL,XTAMPZA.PAROXETINE STIOLTO INHALER DO NOT STOP ANY OF YOUR OTHER PRESCRIPTION MEDICATIONS PRIOR TO SURGERY ?EXCEPT THE FOLLOWING Medications to discontinue per physician __PT STATES LAST DOSE ASPIRIN APR 2023 Please no make-up, nail occitan, hairspray, perfume, deodorant, or body powder the day of surgery. No jewelry (including any body piercings) or valuables the day of surgery, leave them at home. Please take a shower or bath the night before, or the morning of, surgery with an antibacterial soap. Wear comfortable, loose fitting clothing. Children are encouraged to wear pajamas. - Jewelry must be removed prior to entering the operating room. Rings and piercings that are not removed may be cut off. - The hospital will not accept responsibility for valuables. - Please leave all valuables, including medications, at home the day of surgery. If you are going home after surgery, a licensed jinriksha driver must drive you home. - NO public transportation without another adult if you receive anesthesia. - We recommend that an adult stay with you for 24 hours following discharge. - We also recommend that you do not drive, make important decision, drink alcoholic beverages, or take any drugs that were not prescribed by your health care provider for at least 24 hours after your discharge time. For Pediatric surgeries, we recommend two adults accompany the child home. Follow any additional instructions given to you from your surgeon. If you or anyone in your household have experienced Covid symptoms in the past week, please notify your surgeon or the nurse liaison at the phone number below for possible testing. Telephone instructions given to __PATIENT and asked if any additional questions and then verbalized understanding. Patient advised to call surgeon office or pre surgery nurse liaison [phone] if any additional questions.
[2023-05-25 11:31] VITALS: BMI 16.7
[2023-06-05] VITALS (9 sets, daily range): BP systolic 104–146; BP diastolic 43–72; PULSE 69–75; RESP 12–17; TEMP 36.3–37; O2SAT 87–100
[2023-06-05] MEDS: ACETAMINOPHEN 500 MG TABLET 1000 MG PO (06:30)
[2023-06-05] MEDS: LACTATED RINGERS 1,000 ML 30 ML IV CONT (06:30)
[2023-06-05] MEDS: CELECOXIB 200 MG CAPSULE PO (06:30)
--- NOTE | 2023-06-05 07:13 | WPDHPUPDATE1 ---
History and Physical Update Update Date/Time: 06/05/23 07:13 History and Physical has been reviewed, including an updated exam of the patient. There are NO changes in the patient's condition. Risks, benefits, and alternatives have been discussed and questions answered. Patient agrees to proceed with procedure.
--- NOTE | 2023-06-05 07:16 | WPDANESEPPF ---
Anes - Initial Pre Proc Eval Procedure: Operation Date: 06/05/23 07:30 Proposed Procedures p Left Hand Middle Digit A-1 Shana Release - Keyon Mckay MD Date/Time: 06/05/23 07:16 Surgeon: Keyon Mckay MD Pre Op Diagnosis: Lt Hand Middle Digit Trigger Finger Patient Data Age: 67 Gender: F Height: 1.68 m Weight: 47.2 kg Allergies Allergy/AdvReac Type Severity Reaction Status Date / Time Penicillins Allergy Severe Anaphylaxis Verified 05/29/23 10:19 meperidine Allergy Intermediate Itching Verified 05/29/23 10:19 sulfamethoxazole Allergy Intermediate Mouth Verified 05/29/23 10:19 [From Bactrim] burning/redness trimethoprim [From Bactrim] Allergy Intermediate Mouth Verified 05/29/23 10:19 burning/redness Home Medications Medication Instructions Recorded Confirmed Type aspirin 81 mg tablet,delayed 81 mg PO DAILY 06/02/19 05/25/23 History release (Adult Aspirin Regimen) cyclobenzaprine 5 mg tablet 5 mg PO BID 01/05/20 05/25/23 History oxycodone myristate 13.5 mg 13.5 mg PO BID 11/19/21 05/25/23 History capsule sprinkle extend release 12hr(DON'T CRUSH) (Xtampza ER) fluticasone propionate 50 1 spray intranasal PRN PRN Allergy 05/09/22 05/25/23 History mcg/actuation nasal Symptoms spray,suspension (Flonase Allergy Relief) tiotropium 2.5 mcg-olodaterol 2.5 2 puff inhalation DAILY #4 grams 09/26/22 05/25/23 Rx mcg/actuation mist for inhalation (Stiolto Respimat) albuterol sulfate 90 mcg/actuation See Rx Instructions .Route 11/10/22 05/25/23 Rx aerosol inhaler (Ventolin HFA) .COMPLEX #8.5 grams paroxetine HCl 20 mg tablet (Paxil) 20 mg PO DAILY #90 tabs 12/17/22 05/25/23 Rx lovastatin 40 mg tablet 40 mg PO DAILY #90 tabs 01/12/23 05/25/23 Rx solifenacin 10 mg tablet (Vesicare) 5 mg PO DAILY 02/04/23 05/25/23 History ferrous sulfate 325 mg (65 mg 325 mg PO DAILY #30 tabs 02/26/23 05/25/23 Rx iron) tablet omeprazole 40 mg capsule,delayed 40 mg PO DAILY #90 caps 03/24/23 05/25/23 Rx release metoprolol succinate 25 mg See Rx Instructions .Route 03/31/23 05/25/23 Rx tablet,extended release 24 hr .COMPLEX #90 tabs gabapentin 300 mg capsule 300 mg PO BID 05/11/23 05/25/23 History nystatin 100,000 unit/mL oral 5 ml PO PRN PRN thrush 05/25/23 05/25/23 History suspension pramipexole 0.25 mg tablet 0.25 mg PO HS 05/25/23 05/25/23 History chlorhexidine gluconate 4 % 1 applic topical DAILY #237 mL 05/29/23 Rx topical liquid (Hibiclens) Patient hx anesthesia problems: none Family hx anesthesia problems: none Results Review: All pre-operative results and documents have been reviewed as part of the pre-operative evaluation. [facility] Past Medical History Medical History Adenomatous colon polyp Anxiety Arthritis Change in bowel habits Chronic narcotic use Chronic sinusitis Collagen vascular disease Congestion of nasal sinus Constipation COPD (chronic obstructive pulmonary disease) Demyelinating disease Dysphagia Encounter for screening for other metabolic disorders Esophageal dilatation Esophageal stricture Essential hypertension Family history of colon cancer Fibromyalgia Gastroesophageal reflux disease without esophagitis GERD (gastroesophageal reflux disease) High cholesterol History of tobacco abuse Hyperlipidemia due to dietary fat intake Hyperlipidemia, unspecified IBS (irritable bowel syndrome) ILD (interstitial lung disease) Small amount of interstitial lung disease was seen on base of lungs on chest CT 03/25/2018 which was an abdomen and pelvis CT Infectious colitis Kidney infection Kidney stones Lumbar radiculopathy Mass in neck Muscle cramps Olecranon bursitis, left elbow Olecranon bursitis, left elbow On home O2 Osteopenia Oxygen dependent PSVT (paroxysmal supraventricular tachycardia) Rheumatoid arthritis RLS (restless legs syndrome) Shortness of Breath Stomach ulcer Tachycardia Thr
[2023-06-05] MEDS: ceFAZolin 2 GM/D5W 50 ML 2 GM/50 ML BAG IVPB (07:26)
[2023-06-05] MEDS: BUPivacaine HCL 0.5% 10 ML AMP 20 ML INFILTRATE (07:48)
--- NOTE | 2023-06-05 08:18 | W.PM.PROC2 ---
Procedure Note - Detailed Date of Procedure 06/05/23 Pre-op Diagnosis Lt Hand Middle Digit Trigger Finger Post-op Diagnosis Same Procedure Performed RELEASE OF A1 CONTRERAS LEFT MIDDLE FINGER Surgeon Keyon Mckay MD Anesthesia General Description of Procedure THE PATIENT WAS TAKEN TO THE OR IN STABLE CONDITION. THE LEFT UPPER EXTREMITY WAS PREPPED AND DRAPED IN THE USUAL STERILE FASHION. THE TOURNIQUET WAS INFLATED. AN INCISION WAS MADE OVER THE MIDDLE FINGER A1 CONTRERAS DOWN THROUGH THE SUBCUTANEOUS TISSUES UNTIL THE A1 CONTRERAS SHEATH WAS VISUALIZED. AN INCISION WAS MADE OVER THE CONTRERAS UNTIL THE FLEXOR TENDON WAS IDENTIFIED. THE INCISION CONTINUED PROXIMALLY AND DISTALLY UNTIL THE CONTRERAS WAS RELEASED AND THE TENDON EXCURSION WAS WITHOUT TRIGGERING. THE TOURNIQUET WAS DEFLATED AND THE WOUNDS WERE WASHED AND THE BLEEDERS WERE CAUTERIZED. THE SKIN WAS REPAIRED WITH 4-0 NYLON. A STERILE DRESSING WAS APPLIED. THE PATIENT WAS EXTUBATED AND SENT TO RECOVERY ROOM. Estimated Blood Loss 1 Complications No immediate complications Condition Stable Disposition PACU
== END 2023-06-05 09:57 | disposition home or self-care (01) ==
PROVIDERS: PCP Family Medicine; Visit Provider Orthopaedic Surgery
PROC: (CPT 26055; principal; 2023-06-05 07:30)
DX: M65.332 Trigger finger, left middle finger (principal); I10 Essential (primary) hypertension; F41.9 Anxiety disorder, unspecified; E78.5 Hyperlipidemia, unspecified; K58.9 Irritable bowel syndrome, unspecified; J44.9 Chronic obstructive pulmonary disease, unspecified; J32.9 Chronic sinusitis, unspecified; K21.9 Gastro-esophageal reflux disease without esophagitis; G25.81 Restless legs syndrome; M35.9 Systemic involvement of connective tissue, unspecified; G37.9 Demyelinating disease of central nervous system, unspecified; F17.210 Nicotine dependence, cigarettes, uncomplicated; Z79.82 Long term (current) use of aspirin; Z79.891 Long term (current) use of opiate analgesic; Z79.51 Long term (current) use of inhaled steroids; Z99.81 Dependence on supplemental oxygen; Z96.82 Presence of neurostimulator; Z86.010 Personal history of colon polyps; Z86.79 Personal history of other diseases of the circulatory system; Z80.0 Family history of malignant neoplasm of digestive organs; Z80.41 Family history of malignant neoplasm of ovary; Z80.1 Family history of malignant neoplasm of trachea, bronchus and lung; Z80.3 Family history of malignant neoplasm of breast; Z82.49 Family history of ischemic heart disease and other diseases of the circulatory system
CPT/HCPCS: 26055; A9270; J0690; J3010; J7120

== ENCOUNTER 2023-10-15 07:38 | Outpatient (CLI) | payer MEDICARE, MEDICAID, SELFPAY ==
--- NOTE | ~2023-10-15 | CT_ITS ---
CT of the Abdomen and Pelvis: Indication: Hematuria Technique: 2.5 mm axial scans were obtained through the abdomen and pelvis prior to and following in travenous administration of 130 cc of Omnipaque 350. Dose reduction technique was used on this scan b y utilizing automated exposure control and iterative reconstruction technique. The dose-length produc t (DLP) was 479.42 mGy-cm. Findings: Scans through the lung bases demonstrate moderate emphysema. The liver, spleen, pancreas, gallbladder, adrenal glands are within normal limits. 6 mm nonobstructin g left renal stone present. Punctate nonobstructing right renal stones are present. There are atheros clerotic calcifications of the aorta. No lymphadenopathy. No bowel obstruction or bowel wall thickening. There is no evidence to suggest acute appendicitis. Images through the pelvis were performed. Urinary bladder unremarkable. No pelvic mass seen. No ascit es. Impression: Bilateral nonobstructing renal stones, as detailed above. Reviewed, dictated and finalized at location . Impression: Bilateral nonobstructing renal stones, as detailed above.
[2023-10-15 08:06] LABS: Estimated Glomerular Filt Rate > 60
== END 2023-10-15 07:39 | disposition home or self-care (01) ==
PROVIDERS: PCP Family Medicine; Visit Provider Physician Assistant
DX: N20.0 Calculus of kidney (principal)
CPT/HCPCS: 74178; Q9967

== ENCOUNTER 2023-10-28 16:15 | Outpatient (CLI) | payer MEDICARE, MEDICAID, SELFPAY ==
[2023-10-28 17:05] LABS: Influenza A QL RT-PCR Negative (Negative); Influenza B QL RT-PCR Negative (Negative); RSV RNA, RT-PCR Negative (Negative); SARS-CoV-2 RNA PCR Negative (Negative)
== END 2023-10-28 16:16 | disposition home or self-care (01) ==
LOC: ANHLAB 16:17
PROVIDERS: PCP Family Medicine; Visit Provider Physician Assistant
DX: J84.9 Interstitial pulmonary disease, unspecified (principal); Z20.822 Contact with and (suspected) exposure to COVID-19
CPT/HCPCS: 87637

== ENCOUNTER 2023-10-29 13:20 | Outpatient (CLI) | payer MEDICARE, MEDICAID, SELFPAY ==
--- NOTE | ~2023-10-29 | CT_ITS ---
CT Scan of the Chest without Contrast: Clinical Indication: Lung cancer screening, nicotine dependence Technique: Contiguous sections were acquired throughout the chest without intravenous contrast. Dose reduction technique was used on this scan by utilizing automated exposure control and iterative recon struction technique. The dose-length product (DLP) was 66.55 mGy-cm. COMPARISON: 10/27/2022 Findings: There is no evidence of any significant mediastinal, hilar or axillary lymphadenopathy. There are ext ensive atherosclerotic calcifications of the aorta and coronary arteries. There is no evidence of pleural or pericardial effusion. There is severe emphysema. There is mild patchy consolidation the posterior to inferior right upper l obe, suggestive of pneumonia. There is additional consolidation at the inferior, peripheral right mid dle lobe. Stable small lingular nodule. Images through the upper abdomen reveal no abnormalities. Impression: Lung RADS 2-S: Benign appearance. [address] advised. Probable patchy focal pneumonia in the right upper upper and middle lobes. Short-term follow-up CT in 1-3 months recommended after interval therapy. Reviewed, dictated and finalized at location . Impression: Lung RADS 2-S: Benign appearance. [address] advised. Probable patchy focal pneumonia in the right upper upper and middle lobes. Shor t-term follow-up CT in 1-3 months recommended after interval therapy.
== END 2023-10-29 13:21 | disposition home or self-care (01) ==
PROVIDERS: PCP Family Medicine; Visit Provider Physician Assistant
DX: Z12.2 Encounter for screening for malignant neoplasm of respiratory organs (principal); Z87.891 Personal history of nicotine dependence; R91.8 Other nonspecific abnormal finding of lung field
CPT/HCPCS: 71271

== ENCOUNTER 2023-11-06 14:56 | Outpatient (CLI) | payer MEDICARE, MEDICAID, SELFPAY ==
--- NOTE | ~2023-11-06 | XR_ITS ---
XR abdomen/kub 1V Ordering provider: Clarisse Collins PA-C History: . LEFT FLANK PAIN AND BLOOD IN URINE X 1 MONTH . Comparison: September 24, 2022 FINDINGS: BOWEL: Nonobstructive bowel gas pattern. ORGANOMEGALY: None. SIGNIFICANT PATHOLOGIC CALCIFICATIONS: Calcifications in the left paraspinal area. Possibility of a s tone is removed with no change from previous examination. OTHER: No free air is seen under the diaphragm. Left spinal stimulator. IMPRESSION: NO ACUTE ABDOMINAL FINDINGS. Reviewed, dictated and finalized at location A.
== END 2023-11-06 14:57 | disposition home or self-care (01) ==
PROVIDERS: PCP Family Medicine; Visit Provider Physician Assistant
DX: N20.0 Calculus of kidney (principal)
CPT/HCPCS: 74018

== ENCOUNTER 2023-11-20 12:09 | Outpatient (CLI) | payer MEDICARE, MEDICAID, SELFPAY ==
[2023-11-20 12:31] LABS: Hematocrit 46.2 % (37.0-47.0); Hemoglobin 14.9 g/dL (12.0-15.0)
== END 2023-11-20 12:10 | disposition home or self-care (01) ==
LOC: ANHSURGERY 12:13
PROVIDERS: Anesthesiology; PCP Family Medicine; Visit Provider Urology
DX: Z78.9 Other specified health status (principal); Z01.818 Encounter for other preprocedural examination
CPT/HCPCS: 36415; 85014; 85018

== ENCOUNTER 2023-12-01 00:34 | Day surgery (SDC) | payer MEDICARE, MEDICAID, SELFPAY ==
--- NOTE | 2023-11-19 14:27 | PC.NURSE ---
Report to the Outpatient Waiting Room, entrance under the green pavilion located off [facility], at time _6:00 AM on date __11/24/23 . Planned Procedure Time: _7:30 AM . Time changes happen often and if your time is changed the preop area will call you the afternoon before. - You and your visitor will be asked to self-screen and do not enter if you have any COVID symptoms. - A mask is optional within the hospital at this time. Patients may have clear liquids (water, carbonated beverages, clear teas, apple juice) until 3 hours prior to surgery( 4:30 AM) with a maximum of 20 ounces. - No food from midnight until time of surgery - Infants may have breast milk until 4 hours before surgery, infant formula 6 hours prior to surgery. - Children will be allowed to drink immediately following surgery. If applicable, please bring a bottle or sippy cup to assist with drinking. Juice, water, soda, and popsicles are readily available. For infants on formula, please bring formula the day of surgery. Pacifiers are allowed. Take the following medications with a SIP of water the morning of surgery: __TIOTROPIUM INHALER,GABAPENTIN,METOPROLOL,PAROXETINE,XTAMPZA IF NEEDED FOR PAIN DO NOT STOP ANY OF YOUR OTHER PRESCRIPTION MEDICATIONS PRIOR TO SURGERY ?EXCEPT THE FOLLOWING Medications to discontinue per physician ____PT STATES LAST DOSE ASPIRIN 3-7-57__UNPL ALL VITAMINS AND SUPPLEMENTS 3 DAYS PRE OP.LAST DOSE 11/20/23 Please no make-up, nail macedonian, hairspray, perfume, deodorant, or body powder the day of surgery. No jewelry (including any body piercings) or valuables the day of surgery, leave them at home. Please take a shower or bath the night before, or the morning of, surgery with an antibacterial soap. Wear comfortable, loose fitting clothing. Children are encouraged to wear pajamas. - Jewelry must be removed prior to entering the operating room. Rings and piercings that are not removed may be cut off. - The hospital will not accept responsibility for valuables. - Please leave all valuables, including medications, at home the day of surgery. If you are going home after surgery, a licensed tank truck driver must drive you home. - NO public transportation without another adult if you receive anesthesia. - We recommend that an adult stay with you for 24 hours following discharge. - We also recommend that you do not drive, make important decision, drink alcoholic beverages, or take any drugs that were not prescribed by your health care provider for at least 24 hours after your discharge time. For Pediatric surgeries, we recommend two adults accompany the child home. Follow any additional instructions given to you from your surgeon. If you or anyone in your household have experienced Covid symptoms in the past week, please notify your surgeon or the nurse liaison at the phone number below for possible testing. Telephone instructions given to __PATIENT and asked if any additional questions and then verbalized understanding. Patient advised to call surgeon office or pre surgery nurse liaison [phone] if any additional questions.
[2023-11-19 14:49] VITALS: BMI 15.8
--- NOTE | 2023-11-26 12:56 | PC.NURSE ---
PATIENT RESCHEDULED DUE TO ILLNESS LAST WEEK. STATES FEELING WELL NOW, NO FEVER. PT ALSO STATES THAT SHE DOES NOT WANT A DNR ORDER ANY LONGER. SHE ONLY HAS AN ASSIGNED HEALTHCARE POWER OF TRAFFIC EXPERT- SON, JIMBO YU/NO DNR. Report to the Outpatient Waiting Room, entrance under the green pavilion located off [facility], at time __7:00AM on date ___12/01/23____. Planned Procedure Time: ___9:00AM . Time changes happen often and if your time is changed the preop area will call you the afternoon before. - You and your visitor will be asked to self-screen and do not enter if you have any COVID symptoms. - A mask is optional within the hospital at this time. Patients may have clear liquids (water, carbonated beverages, clear teas, apple juice) until 3 hours prior to surgery with a maximum of 20 ounces. - No food from midnight until time of surgery. Take the following medications with a SIP of water the morning of surgery: ___GABAPENTIN, METOPROLOL, PAROXETINE & STIOLTO INHALER. MAY ALSO TAKE/USE ALBUTEROL INHALER AADN XTAMPZA NEEDED. DO NOT STOP ANY OF YOUR OTHER PRESCRIPTION MEDICATIONS PRIOR TO SURGERY ?EXCEPT THE FOLLOWING Medications to discontinue per physician ___HOLD ASPIRIN 7 DAYS PRE-OP PER DR. BAIRD- LAST DOSE 11/22/23. HOLD ALL VITAMINS/SUPPLEMENTS 3 DAYS PRE-OP PER ANESTHESIA- LAST DOSE 11/27/23. Please no make-up, nail micronesian, hairspray, perfume, deodorant, or body powder the day of surgery. No jewelry (including any body piercings) or valuables the day of surgery, leave them at home. Please take a shower or bath the night before, or the morning of, surgery with an antibacterial soap. Wear comfortable, loose fitting clothing. - Jewelry must be removed prior to entering the operating room. Rings and piercings that are not removed may be cut off. - The hospital will not accept responsibility for valuables. - Please leave all valuables, including medications, at home the day of surgery. If you are going home after surgery, a licensed driver retraining instructor must drive you home. - NO public transportation without another adult if you receive anesthesia. - We recommend that an adult stay with you for 24 hours following discharge. - We also recommend that you do not drive, make important decision, drink alcoholic beverages, or take any drugs that were not prescribed by your health care provider for at least 24 hours after your discharge time. Follow any additional instructions given to you from your surgeon. If you or anyone in your household have experienced Covid symptoms in the past week, please notify your surgeon or the nurse liaison at the phone number below for possible testing. Telephone instructions given to PATIENT and asked if any additional questions and then verbalized understanding. Patient advised to call surgeon office or pre surgery nurse liaison [phone] if any additional questions.
[2023-12-01] VITALS (9 sets, daily range): BP systolic 97–145; BP diastolic 51–81; PULSE 61–80; RESP 14–20; TEMP 36.4–36.6; O2SAT 94–100
--- NOTE | ~2023-12-01 | XR_ITS ---
EXAMINATION: XR retrograde pyelo w/stent LT DATE: 12/01/2023 08:44 INDICATION: Left ureteral stone. TECHNIQUE: 10 intraoperative fluoroscopic views of the abdomen and pelvis were obtained. I was not pr esent. Fluoroscopy exposure time was 35 seconds. COMPARISON: CT abdomen and pelvis 10/15/2023 FINDINGS: The left-sided retrograde pyelogram demonstrates a small volume of extraluminal perinephric contrast. There is a left internal ureteral stent in expected position. An electronic device overlie s left abdomen. IMPRESSION: 1. Left internal ureteral stent in expected position. 2. Small volume of extraluminal left perinephric contrast. Reviewed, dictated and finalized at location A.
--- NOTE | 2023-12-01 06:51 | WPDANESEPPF ---
Anes - Initial Pre Proc Eval Procedure: Operation Date: 12/01/23 09:00 Proposed Procedures p Cystoscopy, Left Ureteroscopy, Left Retrograde Pyelogram with Holmium Laser Lithotripsy, Left Stone Extraction, Left Stent Placement - Clifton Naik MD Date/Time: 12/01/23 06:51 Surgeon: Clifton Naik MD Pre Op Diagnosis: Left Renal Stone, Gross Hematuria Patient Data Age: 68 Gender: F Height: 1.68 m Weight: 44.55 kg Allergies Allergy/AdvReac Type Severity Reaction Status Date / Time Penicillins Allergy Severe Anaphylaxis Verified 11/26/23 12:37 meperidine Allergy Intermediate Itching Verified 11/26/23 12:37 sulfamethoxazole Allergy Intermediate Mouth Verified 11/26/23 12:37 [From Bactrim] burning/redness trimethoprim [From Bactrim] Allergy Intermediate Mouth Verified 11/26/23 12:37 burning/redness Home Medications Medication Instructions Recorded Confirmed Type aspirin 81 mg tablet,delayed 81 mg PO DAILY 06/02/19 11/26/23 History release (Adult Aspirin Regimen) cyclobenzaprine 5 mg tablet 5 mg PO BID 01/05/20 11/26/23 History oxycodone myristate 13.5 mg 13.5 mg PO BID 11/19/21 11/26/23 History capsule sprinkle extend release 12hr(DON'T CRUSH) (Xtampza ER) fluticasone propionate 50 1 spray intranasal PRN PRN Allergy 05/09/22 11/26/23 History mcg/actuation nasal Symptoms spray,suspension (Flonase Allergy Relief) solifenacin 10 mg tablet (Vesicare) 5 mg PO DAILY 02/04/23 11/26/23 History omeprazole 40 mg capsule,delayed 40 mg PO DAILY #90 caps 03/24/23 11/26/23 Rx release nystatin 100,000 unit/mL oral 5 ml PO QID PRN thrush #473 mL 06/17/23 11/26/23 Rx suspension paroxetine HCl 20 mg tablet (Paxil) 20 mg PO DAILY #90 tabs 06/24/23 11/26/23 Rx lovastatin 40 mg tablet 40 mg PO DAILY #90 tabs 07/10/23 11/26/23 Rx pramipexole 0.25 mg tablet 0.25 mg PO HS #90 tabs 07/10/23 11/26/23 Rx tiotropium 2.5 mcg-olodaterol 2.5 2 puff inhalation DAILY #4 grams 07/16/23 11/26/23 Rx mcg/actuation mist for inhalation (Stiolto Respimat) cholecalciferol (vitamin D3) 125 125 mcg PO DAILY 07/24/23 11/26/23 History mcg (5,000 unit) tablet (Vitamin D3) guaifenesin 600 mg tablet, 600 mg PO Q12H 07/24/23 11/26/23 History extended release 12 hr (Mucinex) loratadine 10 mg tablet 10 mg PO DAILY 07/24/23 11/26/23 History alendronate 70 mg tablet 70 mg PO WEEKLY 08/12/23 11/26/23 History gabapentin 300 mg capsule 300 mg PO BID #180 caps 09/08/23 11/26/23 Rx albuterol sulfate 90 mcg/actuation See Rx Instructions .Route 09/16/23 11/26/23 Rx aerosol inhaler (Ventolin HFA) .COMPLEX #8.5 grams ferrous sulfate 325 mg (65 mg See Rx Instructions .Route 09/18/23 11/26/23 Rx iron) tablet (FeroSul) .COMPLEX #30 tabs metoprolol succinate 25 mg See Rx Instructions .Route 10/28/23 11/26/23 Rx tablet,extended release 24 hr .COMPLEX #90 tabs [id number] 8 mg-folic 400 1 tablet PO DAILY 11/19/23 11/26/23 History mcg-K 50 mcg-lutein 300 mcg tablet (Centrum Silver Women) Patient hx anesthesia problems: none Family hx anesthesia problems: none Results Review: All pre-operative results and documents have been reviewed as part of the pre-operative evaluation. [facility] Past Medical History Medical History Adenomatous colon polyp Anxiety Arthritis Change in bowel habits Chronic narcotic use Chronic sinusitis Collagen vascular disease Congestion of nasal sinus Constipation COPD (chronic obstructive pulmonary disease) Demyelinating disease Dysphagia Encounter for screening for other metabolic disorders Esophageal dilatation Esophageal stricture Essential hypertension Family history of colon cancer Fibromyalgia Gastroesophageal reflux disease without esophagitis GERD (gastroesophageal reflux disease) High cholesterol History of tobacco abuse Hyperlipidemia due to dietary fat intake Hyperlipidemia, unspecifie
[2023-12-01] MEDS: LACTATED RINGERS 1,000 ML 30 ML IV CONT (07:20)
--- NOTE | 2023-12-01 07:28 | WPDHPUPDATE1 ---
History and Physical Update Update Date/Time: 12/01/23 07:28 History and Physical has been reviewed, including an updated exam of the patient. There are NO changes in the patient's condition. Risks, benefits, and alternatives have been discussed and questions answered. Patient agrees to proceed with procedure.
[2023-12-01] MEDS: ceFAZolin SODIUM 1 GM VIAL 2 GM IV PUSH (07:48)
[2023-12-01] MEDS: LIDOCAINE HCL 2% GEL UROJET 10 ML PKG MUCOUS MEM (07:48)
--- NOTE | 2023-12-01 08:37 | W.PM.PROC2 ---
Procedure Note - Detailed Date of Procedure 12/01/23 Pre-op Diagnosis Left Renal Stone, Gross Hematuria Post-op Diagnosis Same Procedure Performed Cystoscopy, left retrograde pyelogram, left ureteroscopy with stone fragmentation/laser, left ureteral stent placement 4.8 Jamaican contour Surgeon Clifton Naik MD Anesthesia General Findings Extremely tortuous calyx medially located with difficulty manipulating the scope into that calyx. Description of Procedure Patient was taken to the operative suite correctly identified. Once anesthesia was obtained she was placed in dorsal lithotomy position and prepped draped usual sterile fashion. Twenty-two Jamaican scope was inserted the bladder. There is no tumors noted. Pyelogram was then performed. We were able to advance wire up to the kidney. Ureteral access sheath was placed. Any flexible ureteral scope was inserted. The patient has almost a 90 degree turn laterally to get into the renal pelvis. The stone is then located medially in an upper pole calyx. It was it very difficult to manipulate the scope into this calyx. I was initially able to do that but given the position of the stone I was only able to fragment the very tip of it. I could not manipulate the scope any further to alleviate the stone completely. At this point the procedure was terminated. 4.8 Jamaican contour stent was placed with the proximal end in the renal pelvis distal in the bladder. She is taken recovery stable condition. A full obtain a follow-up KUB in approximately 1 weeks time. Will see how she is doing clinically. For pain is resolved will simply remove the stent. If if persistent will discuss attempting a lithotripsy on this stone if it is visible. This completes dictation. Please send a copy of op note to my office. Drains Yes Packing No Pathology None sent Complications No immediate complications Condition Stable Disposition PACU
[2023-12-01] MEDS: oxyCODONE HCL (*CRX) 2.5 MG TAB IR PO (10:00)
== END 2023-12-01 10:41 | disposition home or self-care (01) ==
PROVIDERS: PCP Family Medicine; Visit Provider Urology
PROC: (CPT 52352; principal; 2023-12-01 09:00)
DX: N20.0 Calculus of kidney (principal); J44.9 Chronic obstructive pulmonary disease, unspecified; G37.9 Demyelinating disease of central nervous system, unspecified; M79.7 Fibromyalgia; I10 Essential (primary) hypertension; K21.9 Gastro-esophageal reflux disease without esophagitis; E78.00 Pure hypercholesterolemia, unspecified; J84.9 Interstitial pulmonary disease, unspecified; F41.9 Anxiety disorder, unspecified; M06.9 Rheumatoid arthritis, unspecified; G25.81 Restless legs syndrome; I47.10 Supraventricular tachycardia, unspecified; F17.210 Nicotine dependence, cigarettes, uncomplicated; F12.90 Cannabis use, unspecified, uncomplicated; R64 Cachexia; Z68.1 Body mass index [BMI] 19.9 or less, adult; Z79.82 Long term (current) use of aspirin; Z79.51 Long term (current) use of inhaled steroids; Z79.891 Long term (current) use of opiate analgesic; Z99.81 Dependence on supplemental oxygen
CPT/HCPCS: 52356; 36415; 74420; 85014; 85018; A9270; C1769; C1894; C2617; J0690; J2371; J2704; J3010; J7120; Q9966

== ENCOUNTER 2023-12-08 14:13 | Outpatient (CLI) | payer MEDICARE, MEDICAID, SELFPAY ==
--- NOTE | ~2023-12-08 | XR_ITS ---
XR abdomen/kub 1V Ordering provider: Clifton Naik MD History: . LEFT RENAL STONE, FOLLOW UP . Comparison: November 06, 2023 FINDINGS: BOWEL: Nonobstructive bowel gas pattern. ORGANOMEGALY: None. SIGNIFICANT PATHOLOGIC CALCIFICATIONS: None. OTHER: No free air is seen under the diaphragm. Spinal stimulator is noted. Left double-J stent. Vascular calcifications. IMPRESSION: NO ACUTE ABDOMINAL FINDINGS. Reviewed, dictated and finalized at location A.
--- NOTE | ~2023-12-08 | CT_ITS ---
CT Scan of the Chest without Contrast: Clinical Indication: Pneumonia Technique: Contiguous sections were acquired throughout the chest without intravenous contrast. Dose reduction technique was used on this scan by utilizing automated exposure control and iterative recon struction technique. The dose-length product (DLP) was 143.28 mGy-cm. COMPARISON: 10/29/2023 Findings: There is no evidence of any significant mediastinal, hilar or axillary lymphadenopathy. Stable small calcified mediastinal lymph nodes. Extensive atherosclerotic calcification of the aorta and coronary arteries is present. There is no evidence of pleural or pericardial effusion. Stable calcified biapical pleural plaques. There is severe emphysema. 4 mm peripheral right upper lobe pulmonary nodules probably similar to kasey or exam (axial image 57). Probable chronic scarring in the right middle lobe. Images through the upper abdomen reveal partially imaged left ureteral stent. Impression: Severe emphysema. No acute or overtly suspicious pulmonary finding evident. Patchy airspace disease s een in the right lung on prior exam is resolved. 4 mm right upper lobe pulmonary nodule, probably similar to prior exam. Reviewed, dictated and finalized at location . Impression: Severe emphysema. No acute or overtly suspicious pulmonary finding evident. Pat maritza airspace disease seen in the right lung on prior exam is resolved. 4 mm right upper lobe pulmonary nodule, probably similar to prior exam.
== END 2023-12-08 14:14 | disposition home or self-care (01) ==
PROVIDERS: PCP Family Medicine; Visit Provider Physician Assistant
DX: J18.9 Pneumonia, unspecified organism (principal); J43.9 Emphysema, unspecified; R91.1 Solitary pulmonary nodule
CPT/HCPCS: 71250; 74018

== ENCOUNTER 2023-12-09 07:47 | Outpatient (CLI) | payer MEDICARE, MEDICAID, SELFPAY ==
[2023-12-09 07:50] VITALS: PULSE 74; O2SAT 95
[2023-12-09 07:55] VITALS: PULSE 87; O2SAT 86
[2023-12-09 08:00] VITALS: PULSE 86; O2SAT 87
[2023-12-09 08:05] VITALS: PULSE 92; O2SAT 92
[2023-12-09 08:18] VITALS: PULSE 76; O2SAT 94
--- NOTE | 2023-12-09 08:20 | HOMEO2EVAL ---
Evaluation was performed at [facility] Home Oxygen Evaluation RC: Home Oxygen (O2) Evaluation Start: 12/09/23 08:16 Freq: Status: Active Protocol: RPE Activity Type Activity Date Activity User E-sign Co-sign Detail Recorded Client Recorded Date Recorded By Document 12/09/23 07:50 [email or web address] [email or web address] 12/09/23 08:19 PKH Document 12/09/23 07:55 [email or web address] [email or web address] 12/09/23 08:19 PKH Document 12/09/23 08:00 [email or web address] [email or web address] 12/09/23 08:19 PKH Document 12/09/23 08:05 [email or web address] [email or web address] 12/09/23 08:19 PKH Document 12/09/23 08:18 [email or web address] [email or web address] 12/09/23 08:19 PKH 12/09/23 12/09/23 12/09/23 07:50 07:55 08:00 Home O2 Evaluation [Oxygen] -Test Phase Resting Exercise Exercise -Oxygen Delivery Room Air Room Air Nasal Cannula -Oxygen Flow Rate (L/min) 1 [Pulse Oximetry] -Pulse Oximetry (90-100 %) 95 86 L 87 L [Pulse Rate] -Pulse Rate (60-100 beats/min) 74 87 86 [Charges] -Evaluation Charges O2 Evaluation by Pulmonary 12/09/23 12/09/23 08:05 08:18 Home O2 Evaluation [Oxygen] -Test Phase Exercise Resting -Oxygen Delivery Nasal Cannula Room Air -Oxygen Flow Rate (L/min) 2 [Pulse Oximetry] -Pulse Oximetry (90-100 %) 92 94 [Pulse Rate] -Pulse Rate (60-100 beats/min) 92 76 [Charges] -Evaluation Charges
== END 2023-12-09 07:48 | disposition home or self-care (01) ==
LOC: ANHPFT 07:48
PROVIDERS: PCP Family Medicine; Visit Provider Physician Assistant
DX: J44.9 Chronic obstructive pulmonary disease, unspecified (principal)
CPT/HCPCS: 94618

== ENCOUNTER 2023-12-18 01:47 | Day surgery (SDC) | payer MEDICARE, MEDICAID, SELFPAY ==
[2023-12-04 08:52] VITALS: BMI 32.3
[2023-12-18 12:06] VITALS: BP 126/60; PULSE 69; RESP 18; O2SAT 93
--- NOTE | 2023-12-18 12:10 | WPDANESEPPF ---
Anes - Initial Pre Proc Eval Procedure: Operation Date: 12/18/23 14:00 Proposed Procedures p Esophagogastroduodenoscopy EGD - Channing Ryan MD Date/Time: 12/18/23 12:10 Surgeon: Channing Ryan MD Pre Op Diagnosis: Dysphagia, Esophageal Obstruction Patient Data Age: 68 Gender: F Height: 1.68 m Weight: 43.3 kg Allergies Allergy/AdvReac Type Severity Reaction Status Date / Time Penicillins Allergy Severe Anaphylaxis Verified 12/18/23 12:06 meperidine Allergy Intermediate Itching Verified 12/18/23 12:06 sulfamethoxazole Allergy Intermediate Mouth Verified 12/18/23 12:06 [From Bactrim] burning/redness trimethoprim [From Bactrim] Allergy Intermediate Mouth Verified 12/18/23 12:06 burning/redness Home Medications Medication Instructions Recorded Confirmed Type aspirin 81 mg tablet,delayed 81 mg PO DAILY 06/02/19 12/04/23 History release (Adult Aspirin Regimen) cyclobenzaprine 5 mg tablet 5 mg PO BID 01/05/20 12/04/23 History oxycodone myristate 13.5 mg 13.5 mg PO BID 11/19/21 12/04/23 History capsule sprinkle extend release 12hr(DON'T CRUSH) (Xtampza ER) fluticasone propionate 50 1 spray intranasal PRN PRN Allergy 05/09/22 12/04/23 History mcg/actuation nasal Symptoms spray,suspension (Flonase Allergy Relief) solifenacin 10 mg tablet (Vesicare) 5 mg PO DAILY 02/04/23 12/04/23 History omeprazole 40 mg capsule,delayed 40 mg PO DAILY #90 caps 03/24/23 12/04/23 Rx release nystatin 100,000 unit/mL oral 5 ml PO QID PRN thrush #473 mL 06/17/23 12/04/23 Rx suspension paroxetine HCl 20 mg tablet (Paxil) 20 mg PO DAILY #90 tabs 06/24/23 12/18/23 Rx lovastatin 40 mg tablet 40 mg PO DAILY #90 tabs 07/10/23 12/04/23 Rx pramipexole 0.25 mg tablet 0.25 mg PO HS #90 tabs 07/10/23 12/04/23 Rx tiotropium 2.5 mcg-olodaterol 2.5 2 puff inhalation DAILY #4 grams 07/16/23 12/04/23 Rx mcg/actuation mist for inhalation (Stiolto Respimat) cholecalciferol (vitamin D3) 125 125 mcg PO DAILY 07/24/23 12/04/23 History mcg (5,000 unit) tablet (Vitamin D3) guaifenesin 600 mg tablet, 600 mg PO Q12H 07/24/23 12/04/23 History extended release 12 hr (Mucinex) loratadine 10 mg tablet 10 mg PO DAILY 07/24/23 12/04/23 History alendronate 70 mg tablet 70 mg PO WEEKLY 08/12/23 12/04/23 History gabapentin 300 mg capsule 300 mg PO BID #180 caps 09/08/23 12/04/23 Rx albuterol sulfate 90 mcg/actuation See Rx Instructions .Route 09/16/23 12/04/23 Rx aerosol inhaler (Ventolin HFA) .COMPLEX #8.5 grams ferrous sulfate 325 mg (65 mg See Rx Instructions .Route 09/18/23 12/04/23 Rx iron) tablet (FeroSul) .COMPLEX #30 tabs metoprolol succinate 25 mg See Rx Instructions .Route 10/28/23 12/18/23 Rx tablet,extended release 24 hr .COMPLEX #90 tabs [id number] 8 mg-folic 400 1 tablet PO DAILY 11/19/23 12/04/23 History mcg-K 50 mcg-lutein 300 mcg tablet (Centrum Silver Women) tramadol 50 mg tablet 50 mg PO Q6H PRN pain #20 tabs 12/01/23 12/04/23 Rx Patient hx anesthesia problems: none Family hx anesthesia problems: none Results Review: All pre-operative results and documents have been reviewed as part of the pre-operative evaluation. [facility] Past Medical History Medical History Adenomatous colon polyp Anxiety Arthritis Change in bowel habits Chronic narcotic use Chronic sinusitis Collagen vascular disease Congestion of nasal sinus Constipation COPD (chronic obstructive pulmonary disease) Demyelinating disease Dysphagia Encounter for screening for other metabolic disorders Esophageal dilatation Esophageal stricture Essential hypertension Family history of colon cancer Fibromyalgia Gastroesophageal reflux disease without esophagitis GERD (gastroesophageal reflux disease) High cholesterol History of tobacco abuse Hyperlipidemia due to dietary fat intake Hyperlipidemia, unspecified IBS (irritable b
--- NOTE | 2023-12-18 12:14 | WPDANESEPPF ---
Anes - Initial Pre Proc Eval Procedure: Operation Date: 12/18/23 14:00 Proposed Procedures p Esophagogastroduodenoscopy EGD - Channing Ryan MD Date/Time: 12/18/23 12:14 Surgeon: Channing Ryan MD Pre Op Diagnosis: Dysphagia, Esophageal Obstruction Patient Data Age: 68 Gender: F Height: 1.68 m Weight: 43.3 kg Allergies Allergy/AdvReac Type Severity Reaction Status Date / Time Penicillins Allergy Severe Anaphylaxis Verified 12/18/23 12:06 meperidine Allergy Intermediate Itching Verified 12/18/23 12:06 sulfamethoxazole Allergy Intermediate Mouth Verified 12/18/23 12:06 [From Bactrim] burning/redness trimethoprim [From Bactrim] Allergy Intermediate Mouth Verified 12/18/23 12:06 burning/redness Home Medications Medication Instructions Recorded Confirmed Type aspirin 81 mg tablet,delayed 81 mg PO DAILY 06/02/19 12/04/23 History release (Adult Aspirin Regimen) cyclobenzaprine 5 mg tablet 5 mg PO BID 01/05/20 12/04/23 History oxycodone myristate 13.5 mg 13.5 mg PO BID 11/19/21 12/04/23 History capsule sprinkle extend release 12hr(DON'T CRUSH) (Xtampza ER) fluticasone propionate 50 1 spray intranasal PRN PRN Allergy 05/09/22 12/04/23 History mcg/actuation nasal Symptoms spray,suspension (Flonase Allergy Relief) solifenacin 10 mg tablet (Vesicare) 5 mg PO DAILY 02/04/23 12/04/23 History omeprazole 40 mg capsule,delayed 40 mg PO DAILY #90 caps 03/24/23 12/04/23 Rx release nystatin 100,000 unit/mL oral 5 ml PO QID PRN thrush #473 mL 06/17/23 12/04/23 Rx suspension paroxetine HCl 20 mg tablet (Paxil) 20 mg PO DAILY #90 tabs 06/24/23 12/18/23 Rx lovastatin 40 mg tablet 40 mg PO DAILY #90 tabs 07/10/23 12/04/23 Rx pramipexole 0.25 mg tablet 0.25 mg PO HS #90 tabs 07/10/23 12/04/23 Rx tiotropium 2.5 mcg-olodaterol 2.5 2 puff inhalation DAILY #4 grams 07/16/23 12/04/23 Rx mcg/actuation mist for inhalation (Stiolto Respimat) cholecalciferol (vitamin D3) 125 125 mcg PO DAILY 07/24/23 12/04/23 History mcg (5,000 unit) tablet (Vitamin D3) guaifenesin 600 mg tablet, 600 mg PO Q12H 07/24/23 12/04/23 History extended release 12 hr (Mucinex) loratadine 10 mg tablet 10 mg PO DAILY 07/24/23 12/04/23 History alendronate 70 mg tablet 70 mg PO WEEKLY 08/12/23 12/04/23 History gabapentin 300 mg capsule 300 mg PO BID #180 caps 09/08/23 12/04/23 Rx albuterol sulfate 90 mcg/actuation See Rx Instructions .Route 09/16/23 12/04/23 Rx aerosol inhaler (Ventolin HFA) .COMPLEX #8.5 grams ferrous sulfate 325 mg (65 mg See Rx Instructions .Route 09/18/23 12/04/23 Rx iron) tablet (FeroSul) .COMPLEX #30 tabs metoprolol succinate 25 mg See Rx Instructions .Route 10/28/23 12/18/23 Rx tablet,extended release 24 hr .COMPLEX #90 tabs [id number] 8 mg-folic 400 1 tablet PO DAILY 11/19/23 12/04/23 History mcg-K 50 mcg-lutein 300 mcg tablet (Centrum Silver Women) tramadol 50 mg tablet 50 mg PO Q6H PRN pain #20 tabs 12/01/23 12/04/23 Rx Patient hx anesthesia problems: none Family hx anesthesia problems: none Results Review: All pre-operative results and documents have been reviewed as part of the pre-operative evaluation. [facility] Past Medical History Medical History Adenomatous colon polyp Anxiety Arthritis Change in bowel habits Chronic narcotic use Chronic sinusitis Collagen vascular disease Congestion of nasal sinus Constipation COPD (chronic obstructive pulmonary disease) Demyelinating disease Dysphagia Encounter for screening for other metabolic disorders Esophageal dilatation Esophageal stricture Essential hypertension Family history of colon cancer Fibromyalgia Gastroesophageal reflux disease without esophagitis GERD (gastroesophageal reflux disease) High cholesterol History of tobacco abuse Hyperlipidemia due to dietary fat intake Hyperlipidemia, unspecified IBS (irritable b
[2023-12-18] MEDS: LACTATED RINGERS 1,000 ML 150 ML IV CONT (12:16)
--- NOTE | 2023-12-18 12:37 | PM.HPGS ---
History of Present Illness History of Present Illness Consent: Risks, benefits, and alternatives have been discussed and questions answered. Patient agrees to proceed with procedure. Chief complaint: Dysphagia, Esophageal Obstruction Narrative: Melyssa Mccall is a 68 year old female with dysphagia, last egd few months ago with esophageal ring dilated up to 16.5mm Review of Systems Review of Systems: All systems reviewed & are unremarkable except as noted in HPI and below PMFSH Past Medical History Medical History Adenomatous colon polyp Anxiety Arthritis Change in bowel habits Chronic narcotic use Chronic sinusitis Collagen vascular disease Congestion of nasal sinus Constipation COPD (chronic obstructive pulmonary disease) Demyelinating disease Dysphagia Encounter for screening for other metabolic disorders Esophageal dilatation Esophageal stricture Essential hypertension Family history of colon cancer Fibromyalgia Gastroesophageal reflux disease without esophagitis GERD (gastroesophageal reflux disease) High cholesterol History of tobacco abuse Hyperlipidemia due to dietary fat intake Hyperlipidemia, unspecified IBS (irritable bowel syndrome) ILD (interstitial lung disease) Small amount of interstitial lung disease was seen on base of lungs on chest CT 03/25/2018 which was an abdomen and pelvis CT Infectious colitis Kidney infection Kidney stones Lumbar radiculopathy Mass in neck Muscle cramps Olecranon bursitis, left elbow Olecranon bursitis, left elbow On home O2 Osteopenia Oxygen dependent PSVT (paroxysmal supraventricular tachycardia) Rheumatoid arthritis RLS (restless legs syndrome) Shortness of Breath Stomach ulcer Tachycardia Thrush Tobacco abuse Tobacco abuse Trigger finger, left middle finger Urge incontinence Ventricular ectopics Wears glasses Surgical History Surgical History History of lumbar surgery Spinal cord stimulator implanted 05/23/21 Family History Family History Mother Patient's mother is , Onset Age: 72 Sibling Carcinoma of colon Ovarian cancer Lung cancer Rectal cancer Family history of malignant neoplasm of breast in first degree relative Father Brain aneurysm Other Arthritis COPD (chronic obstructive pulmonary disease) Cerebrovascular accident High cholesterol Hypertension Lung disease Neuropathy Social History Social History (Updated 11/17/23 @ 14:07 by Mare Aguirre MA) Social History: caffeine-coffee/soda Smoking packs per day: 0.75 Smoking cigarettes per day: 15.0 Years smoked: 50 Smoking pack-years: 37.50 Smoking status: Current every day smoker Tobacco type: cigarettes Second hand tobacco smoke exposure: Yes Smoking end date: 05/19/23 Additional smoking assessment comments: TRYING TO STOP, BEEN CUTTING BACK, HOPES TO QUIT BY AUGUST 2023 Alcohol intake: never Substance use: current Substance use type: does not use Other substance usage details: EDIBLES Last use: 11-18-2021 Lack of Transportation: No Lack of Food: Never True Current Housing: I Have Housing Concerned About Future Housing: No Difficulty Paying Gas/Electric Bills: No Difficulty Paying for Meds: No Currently Unemployed: No Education: High School Diploma/GED Difficulty w/ Childcare or Family Care: No Living arrangements: alone Occupation/Education: retired Gender identity (if verbalized by the patient): Female Spiritual care concerns: No Meds Home Medications and Allergies Home Medications Medication Instructions Recorded Confirmed Type aspirin 81 mg tablet,delayed 81 mg PO DAILY 06/02/19 12/04/23 History release (Adult Aspirin Regimen) cyclobenzaprine 5 mg tablet 5 mg PO BID 01/05/20 12/04/23
[2023-12-18 12:46] VITALS: BP 118/60; PULSE 67; RESP 20; O2SAT 100
[2023-12-18 12:56] VITALS: BP 108/55; PULSE 68; RESP 20; O2SAT 99
[2023-12-18 13:06] VITALS: BP 108/61; PULSE 68; RESP 16; O2SAT 96
== END 2023-12-18 13:14 | disposition home or self-care (01) ==
PROVIDERS: PCP Family Medicine; Visit Provider Internal Medicine Gastroenterology
PROC: 0DJ08ZZ Inspection of Upper Intestinal Tract, Via Natural or Artificial Opening Endoscopic (ICD-10-PCS; CPT 43235; principal; 2023-12-18 14:00)
DX: K22.2 Esophageal obstruction (principal); R13.10 Dysphagia, unspecified; K21.9 Gastro-esophageal reflux disease without esophagitis; E78.5 Hyperlipidemia, unspecified; F41.9 Anxiety disorder, unspecified; I10 Essential (primary) hypertension; Z99.81 Dependence on supplemental oxygen; J44.9 Chronic obstructive pulmonary disease, unspecified; M06.9 Rheumatoid arthritis, unspecified; F17.210 Nicotine dependence, cigarettes, uncomplicated
CPT/HCPCS: 43249; C1726; J2704; J7120

== ENCOUNTER 2024-01-08 14:21 | Outpatient (CLI) | payer MEDICARE, MEDICAID, SELFPAY ==
--- NOTE | ~2024-01-08 | XR_ITS ---
EXAMINATION: XR abdomen/kub 1V DATE: 01/08/2024 14:38 INDICATION: Left kidney stone. TECHNIQUE: A supine view of the abdomen on 2 radiographs was obtained. COMPARISON: Abdomen radiograph 12/08/2023, CT abdomen and pelvis 10/15/2023 FINDINGS: There are no dilated loops of bowel. There is a large volume of stool in the colon. There i s a 13 x 6 mm stone in left kidney. There are phleboliths in the pelvis. An electronic device overlie s left abdomen. IMPRESSION: 1. 13 x 6 mm stone in left kidney. Reviewed, dictated and finalized at location A.
== END 2024-01-08 14:22 | disposition home or self-care (01) ==
LOC: ANHIMG 14:25
PROVIDERS: PCP Family Medicine; Visit Provider Urology
DX: N20.0 Calculus of kidney (principal)
CPT/HCPCS: 74018

== ENCOUNTER 2024-01-09 07:05 | Outpatient (CLI) | payer MEDICARE, MEDICAID, SELFPAY ==
[2024-01-09 07:46] LABS: Basophils Percent Auto 0.4 % (0.2-1.2); Eosinophils Absolute Auto 0.1 K/mm3 (0-0.3); Eosinophils Percent Auto 2.2 % (0-4.4); Hematocrit 45.3 % (37.0-47.0); Hemoglobin 14.9 g/dL (12.0-15.0); Immature Granulocyte Absolute 0.01 K/mm3 (0.00-0.031); Immature Granulocyte Percent A 0.2 % (0-0.5); Immature Platelet Fraction Pct 3.8 % (0.9-11.2); Lymphocytes Absolute Auto 1.51 K/mm3 (0.9-3.2); Lymphocytes Percent Auto 33.9 % (18.3-44.2); Mean Corpuscular HGB Conc 32.9 g/dl (32-36); Mean Corpuscular Hemoglobin 31.2 pg (26-34); Mean Platelet Volume 10.4 fl (7.4-10.4); Monocytes Absolute Auto 0.7 K/mm3 (0.1-0.6); Neutrophils Absolute Auto 2.2 K/mm3 (1.3-6.7); Neutrophils Percent Auto 48.3 % (45.5-73.1); Platelet Count Result 132 k/mm3 (150-375); Red Blood Count 4.77 M/mm3 (4.2-5.4); Red Cell Distribution Width 12.6 % (11.5-14.5); White Blood Count 4.5 K/mm3 (4.5-10.0)
[2024-01-09 07:56] LABS: Alanine Aminotransferase 25 U/L (6-35); Albumin Level 4.2 g/dL (3.5-5.1); Alkaline Phosphatase 91 U/L (38-126); Anion Gap 10 mmol/L (4-12); Aspartate Amino Transferase 38 U/L (14-36); Bilirubin,Total 0.4 mg/dL (0.2-1.3); Blood Urea Nitrogen 21 mg/dL (7-17); Calcium 9.1 mg/dL (8.4-10.2); Carbon Dioxide 31 mmol/L (22-30); Chloride 97 mmol/L (98-107); Cholesterol 142 mg/dL (0-200); Estimated Glomerular Filt Rate > 60; Glucose 106 mg/dL (65-110); HDL Direct 45 mg/dL; Potassium 4.7 mmol/L (3.4-5.0); Sodium 138 mmol/L (137-145); Triglycerides 118 mg/dL (<150)
[2024-01-09 08:00] LABS: Hemoglobin A1C 5.9 % (<5.7)
[2024-01-09 08:10] LABS: LDL Cholesterol Direct 60 mg/dL
[2024-01-09 09:27] LABS: Free T4 Free Thyroxine 1.27 ng/mL (0.78-2.19); Vitamin D 25 Hydroxy 51.6 ng/mL
== END 2024-01-09 07:06 | disposition home or self-care (01) ==
LOC: ANHLAB 07:11
PROVIDERS: PCP Family Medicine; Visit Provider Family Medicine
DX: E55.9 Vitamin D deficiency, unspecified (principal); E78.5 Hyperlipidemia, unspecified; G47.34 Idiopathic sleep related nonobstructive alveolar hypoventilation; I10 Essential (primary) hypertension; M85.80 Other specified disorders of bone density and structure, unspecified site; R00.0 Tachycardia, unspecified; R06.09 Other forms of dyspnea; R53.83 Other fatigue; R73.9 Hyperglycemia, unspecified; A09 Infectious gastroenteritis and colitis, unspecified
CPT/HCPCS: 36415; 80053; 80061; 82306; 83036; 84439; 84443; 85025; 85055

== ENCOUNTER 2024-02-15 01:22 | Day surgery (SDC) | payer MEDICARE, MEDICAID, SELFPAY ==
[2024-02-12 14:21] VITALS: BMI 15.4
[2024-02-15 11:11] VITALS: BP 114/83; PULSE 84; RESP 19; TEMP 36.8; O2SAT 100
[2024-02-15] MEDS: LACTATED RINGERS 1,000 ML 150 ML IV CONT (11:22)
--- NOTE | 2024-02-15 11:24 | WPDANESEPPF ---
Anes - Initial Pre Proc Eval Procedure: Operation Date: 02/15/24 12:30 Proposed Procedures p Esophagogastroduodenoscopy - Channing Ryan MD Date/Time: 02/15/24 11:24 Surgeon: Channing Ryan MD Pre Op Diagnosis: Dysphagia Patient Data Age: 68 Gender: F Height: 1.68 m Weight: 42.4 kg Last Vital Signs Temp 36.8 C 02/15/24 11:11 Pulse 84 02/15/24 11:11 Resp 19 02/15/24 11:11 BP 114/83 02/15/24 11:11 Pulse Ox 100 02/15/24 11:11 O2 Del Method Nasal Cannula 02/15/24 11:11 O2 Flow Rate 1 02/15/24 11:11 Allergies Allergy/AdvReac Type Severity Reaction Status Date / Time Penicillins Allergy Severe Anaphylaxis Verified 02/15/24 11:08 meperidine Allergy Intermediate Itching Verified 02/15/24 11:08 sulfamethoxazole Allergy Intermediate Mouth Verified 02/15/24 11:08 [From Bactrim] burning/redness trimethoprim [From Bactrim] Allergy Intermediate Mouth Verified 02/15/24 11:08 burning/redness Home Medications Medication Instructions Recorded Confirmed Type aspirin 81 mg tablet,delayed 81 mg PO DAILY 06/02/19 02/15/24 History release (Adult Aspirin Regimen) cyclobenzaprine 5 mg tablet 5 mg PO BID 01/05/20 02/15/24 History oxycodone myristate 13.5 mg 13.5 mg PO BID 11/19/21 02/15/24 History capsule sprinkle extend release 12hr(DON'T CRUSH) (Xtampza ER) fluticasone propionate 50 1 spray intranasal PRN PRN Allergy 05/09/22 02/15/24 History mcg/actuation nasal Symptoms spray,suspension (Flonase Allergy Relief) solifenacin 10 mg tablet (Vesicare) 5 mg PO DAILY 02/04/23 02/15/24 History omeprazole 40 mg capsule,delayed 40 mg PO DAILY #90 caps 03/24/23 02/15/24 Rx release cholecalciferol (vitamin D3) 125 125 mcg PO DAILY 07/24/23 02/15/24 History mcg (5,000 unit) tablet (Vitamin D3) guaifenesin 600 mg tablet, 600 mg PO Q12H 07/24/23 02/15/24 History extended release 12 hr (Mucinex) loratadine 10 mg tablet 10 mg PO DAILY 07/24/23 02/15/24 History alendronate 70 mg tablet 70 mg PO WEEKLY 08/12/23 02/15/24 History gabapentin 300 mg capsule 300 mg PO BID #180 caps 09/08/23 02/15/24 Rx albuterol sulfate 90 mcg/actuation See Rx Instructions .Route 09/16/23 02/15/24 Rx aerosol inhaler (Ventolin HFA) .COMPLEX #8.5 grams ferrous sulfate 325 mg (65 mg See Rx Instructions .Route 09/18/23 02/15/24 Rx iron) tablet (FeroSul) .COMPLEX #30 tabs metoprolol succinate 25 mg See Rx Instructions .Route 10/28/23 02/15/24 Rx tablet,extended release 24 hr .COMPLEX #90 tabs [id number] 8 mg-folic 400 1 tablet PO DAILY 11/19/23 02/15/24 History mcg-K 50 mcg-lutein 300 mcg tablet (Centrum Silver Women) tramadol 50 mg tablet 50 mg PO Q6H PRN pain #20 tabs 12/01/23 02/15/24 Rx paroxetine HCl 20 mg tablet (Paxil) 20 mg PO DAILY #90 tabs 12/21/23 02/15/24 Rx tiotropium 2.5 mcg-olodaterol 2.5 See Rx Instructions .Route 12/28/23 02/15/24 Rx mcg/actuation mist for inhalation .COMPLEX #4 grams (Stiolto Respimat) ketoconazole 2 % topical cream 1 applic topical BID #60 grams 01/06/24 02/15/24 Rx lovastatin 40 mg tablet 40 mg PO DAILY #90 tabs 01/06/24 02/15/24 Rx nystatin 100,000 unit/mL oral 5 ml PO QID PRN thrush #473 mL 01/06/24 02/15/24 Rx suspension megestrol 625 mg/5 mL (125 mg/mL) 5 ml PO DAILY #150 mL 01/20/24 02/15/24 Rx oral suspension pramipexole 0.25 mg tablet 0.25 mg PO HS #90 tabs 01/26/24 02/15/24 Rx Patient hx anesthesia problems: none Family hx anesthesia problems: none Results Review: All pre-operative results and documents have been reviewed as part of the pre-operative evaluation. [facility] Past Medical History Medical History Adenomatous colon polyp Anxiety Arthritis Change in bowel habits Chronic narcotic use Chronic sinusitis Collagen vascular disease Congestion of nasal sinus Constipation COPD (chronic obstructive pulmonary disease) Demyelinating d
--- NOTE | 2024-02-15 11:35 | PM.HPGS ---
History of Present Illness History of Present Illness Consent: Risks, benefits, and alternatives have been discussed and questions answered. Patient agrees to proceed with procedure. Chief complaint: Dysphagia Narrative: Melyssa Mccall is a 68 year old female here for another egd, last one 12/2023- recurrent dysphagia, esophageal ring dilated up to 16.5mm Review of Systems Review of Systems: All systems reviewed & are unremarkable except as noted in HPI and below PMFSH Past Medical History Medical History Adenomatous colon polyp Anxiety Arthritis Change in bowel habits Chronic narcotic use Chronic sinusitis Collagen vascular disease Congestion of nasal sinus Constipation COPD (chronic obstructive pulmonary disease) Demyelinating disease Dysphagia Encounter for screening for other metabolic disorders Esophageal dilatation Esophageal stricture Essential hypertension Family history of colon cancer Fibromyalgia Gastroesophageal reflux disease without esophagitis GERD (gastroesophageal reflux disease) High cholesterol History of tobacco abuse Hyperlipidemia due to dietary fat intake Hyperlipidemia, unspecified IBS (irritable bowel syndrome) ILD (interstitial lung disease) Small amount of interstitial lung disease was seen on base of lungs on chest CT 03/25/2018 which was an abdomen and pelvis CT Infectious colitis Kidney infection Kidney stones Lumbar radiculopathy Mass in neck Muscle cramps Olecranon bursitis, left elbow Olecranon bursitis, left elbow On home O2 Osteopenia Oxygen dependent PSVT (paroxysmal supraventricular tachycardia) Rheumatoid arthritis RLS (restless legs syndrome) Shortness of Breath Stomach ulcer Tachycardia Thrush Tobacco abuse Tobacco abuse Trigger finger, left middle finger Urge incontinence Ventricular ectopics Wears glasses Surgical History Surgical History History of lumbar surgery Spinal cord stimulator implanted 05/23/21 Family History Family History Mother Patient's mother is , Onset Age: 72 Sibling Carcinoma of colon Ovarian cancer Lung cancer Rectal cancer Family history of malignant neoplasm of breast in first degree relative Father Brain aneurysm Other Arthritis COPD (chronic obstructive pulmonary disease) Cerebrovascular accident High cholesterol Hypertension Lung disease Neuropathy Social History Social History Social History: caffeine-coffee/soda Smoking packs per day: 0.75 Smoking cigarettes per day: 15.0 Years smoked: 50 Smoking pack-years: 37.50 Smoking status: Current every day smoker Tobacco type: cigarettes Second hand tobacco smoke exposure: Yes Smoking end date: 05/19/23 Additional smoking assessment comments: TRYING TO STOP, BEEN CUTTING BACK, HOPES TO QUIT BY AUGUST 2023 Alcohol intake: never Substance use: never Substance use type: does not use Other substance usage details: EDIBLES Last use: 11-18-2021 Do You Feel Safe in your Home?: Yes Lack of Transportation: No Lack of Food: Never True Current Housing: I Have Housing Concerned About Future Housing: No Difficulty Paying Gas/Electric Bills: No Difficulty Paying for Meds: No Currently Unemployed: No Education: High School Diploma/GED Difficulty w/ Childcare or Family Care: No Living arrangements: alone Occupation/Education: retired Gender identity (if verbalized by the patient): Female Spiritual care concerns: No Meds Home Medications and Allergies Home Medications Medication Instructions Recorded Confirmed Type aspirin 81 mg tablet,delayed 81 mg PO DAILY 06/02/19 02/15/24 History release (Adult Aspirin Regimen) cyclobenzaprine 5 mg tablet 5 mg PO BID 01/04/
[2024-02-15] MEDS: BENZOCAINE (*SP) 60 ML SPRAY CAN (HURRICAINE) 1 SPRAY MUCOUS MEM (11:39)
[2024-02-15 11:50] VITALS: BP 114/51; PULSE 78; RESP 17; O2SAT 100
[2024-02-15 12:00] VITALS: BP 126/61; PULSE 80; RESP 28; O2SAT 99
[2024-02-15 12:10] VITALS: BP 121/58; PULSE 77; RESP 24; O2SAT 99
== END 2024-02-15 12:16 | disposition home or self-care (01) ==
PROVIDERS: PCP Family Medicine; Visit Provider Internal Medicine Gastroenterology
PROC: 0DJ08ZZ Inspection of Upper Intestinal Tract, Via Natural or Artificial Opening Endoscopic (ICD-10-PCS; CPT 43235; principal; 2024-02-15 12:30)
DX: K22.2 Esophageal obstruction (principal); I10 Essential (primary) hypertension; K21.9 Gastro-esophageal reflux disease without esophagitis; E78.00 Pure hypercholesterolemia, unspecified; K58.9 Irritable bowel syndrome, unspecified; G25.81 Restless legs syndrome; F41.9 Anxiety disorder, unspecified; J32.9 Chronic sinusitis, unspecified; J44.9 Chronic obstructive pulmonary disease, unspecified; I47.10 Supraventricular tachycardia, unspecified; N39.41 Urge incontinence; M06.9 Rheumatoid arthritis, unspecified; I49.3 Ventricular premature depolarization; F12.90 Cannabis use, unspecified, uncomplicated; F17.210 Nicotine dependence, cigarettes, uncomplicated; Z79.82 Long term (current) use of aspirin; Z79.891 Long term (current) use of opiate analgesic; Z79.83 Long term (current) use of bisphosphonates; Z79.51 Long term (current) use of inhaled steroids; Z99.81 Dependence on supplemental oxygen; Z98.890 Other specified postprocedural states; Z98.1 Arthrodesis status; Z96.82 Presence of neurostimulator; Z86.0100 Personal history of colon polyps, unspecified; Z87.442 Personal history of urinary calculi; Z80.0 Family history of malignant neoplasm of digestive organs; Z80.41 Family history of malignant neoplasm of ovary; Z80.1 Family history of malignant neoplasm of trachea, bronchus and lung; Z80.3 Family history of malignant neoplasm of breast; Z82.49 Family history of ischemic heart disease and other diseases of the circulatory system
CPT/HCPCS: 43249; C1726; J2003; J2704; J7120

== ENCOUNTER 2024-03-17 10:20 | Outpatient (CLI) | payer MEDICARE, MEDICAID, SELFPAY ==
[2024-03-17 11:15] LABS: Hematocrit 49.6 % (37.0-47.0)
[2024-03-17 11:27] LABS: Prothrombin Time 13.4 Seconds (11.1-14.7)
[2024-03-17 11:28] LABS: Partial Thromboplastin Time 25.5 Seconds (22.3-36.8)
== END 2024-03-17 10:21 | disposition home or self-care (01) ==
LOC: ANHSURGERY 10:27
PROVIDERS: Anesthesiology; PCP Family Medicine; Visit Provider Urology
DX: Z01.818 Encounter for other preprocedural examination (principal); N20.0 Calculus of kidney; D64.9 Anemia, unspecified
CPT/HCPCS: 36415; 85014; 85018; 85610; 85730; 87086

== ENCOUNTER 2024-03-25 01:16 | Day surgery (SDC) | payer MEDICARE, MEDICAID, SELFPAY ==
[2024-03-15 09:33] VITALS: BMI 16.3
--- NOTE | 2024-03-15 10:15 | PC.NURSE ---
Report to the Outpatient Waiting Room, entrance under the green pavilion located off [facility], at time on date . Planned Procedure Time: .? Time changes happen often and if your time is changed the preop area will call you the afternoon before. - You and your visitor will be asked to self-screen and do not enter if you have any COVID symptoms. Please call surgeon if you need to reschedule. - A mask is optional within the hospital at this time. Patients may have clear liquids (water, carbonated beverages, clear teas, apple juice) until 3 hours prior to surgery with a maximum of 20 ounces. - No food from midnight until time of surgery and no smoking - Infants may have breast milk until 4 hours before surgery, infant formula 6 hours prior to surgery. - Children will be allowed to drink immediately following surgery.? If applicable, please bring a bottle or sippy cup to assist with drinking. Juice, water, soda, and popsicles are readily available.? For infants on formula, please bring formula the day of surgery.? Pacifiers are allowed. Take only the following medications with a SIP of water on the morning of surgery: DO NOT STOP ANY OF YOUR OTHER PRESCRIPTION MEDICATIONS PRIOR TO SURGERY EXCEPT THE FOLLOWING Medications to discontinue per physician Date to take last dose Please no make-up, nail malay, hairspray, perfume, deodorant, or body powder the day of surgery.? No jewelry (including any body piercings) or valuables the day of surgery, leave them at home.? Please take a shower or bath the night before, or the morning of, surgery with an antibacterial soap.? Wear comfortable, loose fitting clothing.? Children are encouraged to wear pajamas. - Jewelry must be removed prior to entering the operating room.? Rings and piercings that are not removed may be cut off. - The hospital will not accept responsibility for valuables.? - Please leave all valuables, including medications, at home the day of surgery. If you are going home after surgery, a licensed transfer driver must drive you home.? - NO public transportation without another adult if you receive anesthesia. - We recommend that an adult stay with you for 24 hours following discharge. - We also recommend that you do not drive, make important decision, drink alcoholic beverages, or take any drugs that were not prescribed by your health care provider for at least 24 hours after your discharge time. For Pediatric surgeries, we recommend two adults accompany the child home. Follow any additional instructions given to you from your surgeon. Telephone instructions given to and asked if any additional questions and then verbalized understanding. Patient advised to call surgeon office or pre surgery nurse liaison [phone] if any additional questions.
--- NOTE | 2024-03-15 10:27 | PC.NURSE ---
Report to the Outpatient Waiting Room, entrance under the green pavilion located off [facility], at time __6:00AM on date ___03/25/24____. Planned Procedure Time: __7:30AM .? Time changes happen often and if your time is changed the preop area will call you the afternoon before. - You and your visitor will be asked to self-screen and do not enter if you have any COVID symptoms. Please call surgeon if you need to reschedule. - A mask is optional within the hospital at this time. Patients may have clear liquids (water, carbonated beverages, clear teas, apple juice) until 3 hours prior to surgery with a maximum of 20 ounces. - No food from midnight until time of surgery and no smoking. Take only the following medications with a SIP of water on the morning of surgery: ___STIOLTO INHALER, GABAPENTIN, METOPROLOL, PAROXETINE, XTAMPZA. MAY USE ALBUTEROL INHALER OR NEBULIZER NEEDED. DO NOT STOP ANY OF YOUR OTHER PRESCRIPTION MEDICATIONS PRIOR TO SURGERY EXCEPT THE FOLLOWING Medications to discontinue per physician ____HOLD ASPIRIN & VITAMINS/SUPPLEMENTS 7 DAYS PRE-OP PER DR BAIRD Date to take last dose 03/17/24 Please no make-up, nail qatari, hairspray, perfume, deodorant, or body powder the day of surgery.? No jewelry (including any body piercings) or valuables the day of surgery, leave them at home.? Please take a shower or bath the night before, or the morning of, surgery with an antibacterial soap.? Wear comfortable, loose fitting clothing.? - Jewelry must be removed prior to entering the operating room.? Rings and piercings that are not removed may be cut off. - The hospital will not accept responsibility for valuables.? - Please leave all valuables, including medications, at home the day of surgery. If you are going home after surgery, a licensed medical driver must drive you home.? - NO public transportation without another adult if you receive anesthesia. - We recommend that an adult stay with you for 24 hours following discharge. - We also recommend that you do not drive, make important decision, drink alcoholic beverages, or take any drugs that were not prescribed by your health care provider for at least 24 hours after your discharge time. Follow any additional instructions given to you from your surgeon. Telephone instructions given to ____PATIENT and asked if any additional questions and then verbalized understanding. Patient advised to call surgeon office or pre surgery nurse liaison [phone] if any additional questions.
--- NOTE | ~2024-03-25 | XR_ITS ---
Supine and upright views of the abdomen Clinical history: Lithotripsy COMPARISON: 01/08/2024 Findings: Bowel gas pattern is nonspecific. No evidence for obstruction or free air. No abnormal mass lesion or calcification is seen. Osseous structures are intact. Neurostimulator device present. Impression: No definite renal stone seen radiographically. Reviewed, dictated and finalized at [facility]. [employer] Impression: No definite renal stone seen radiographically.
--- NOTE | ~2024-03-25 | CT_ITS ---
Non-contrast CT scan of the Abdomen and Pelvis Clinical indication: Left-sided renal stone Technique: 2.5 mm axial scans were obtained through the abdomen and pelvis without intravenous or or al contrast. Dose reduction technique was used on this scan by utilizing automated exposure control a nd iterative reconstruction technique. The dose-length product (DLP) was 155.25 mGy-cm. COMPARISON: 10/15/2023 Findings: Images through the lung bases reveal moderate to advanced emphysematous change. 6 mm nonobstructing left renal stone present. 2 mm nonobstructing right renal stone. No ureteral ston e or hydronephrosis on either side. The liver, spleen, pancreas, gallbladder, and adrenals appear normal. There is extensive atheroscler otic calcification of the aorta and iliac vessels. There is no evidence of bowel obstruction. Prominent stool suggests constipation. Images through the pelvis were performed. There is no evidence of ascites or lymphadenopathy. Urinary bladder unremarkable. No pelvic mass. Impression: Bilateral nonobstructing renal stones, as detailed above. Constipation. Advanced emphysema at the lung bases. Reviewed, dictated and finalized at [facility]. [employer] ASSOCIATE Impression: Bilateral nonobstructing renal stones, as detailed above. Constipation. Advanced emphysema at the lung bases.
[2024-03-25 06:10] VITALS: BP 109/63; PULSE 67; RESP 20; TEMP 36.3; O2SAT 96
[2024-03-25] MEDS: LACTATED RINGERS 1,000 ML 30 ML IV CONT (06:55)
--- NOTE | 2024-03-25 07:19 | P.PNAN_ITS ---
Anes - Initial Pre Proc Eval Procedure: Operation Date: 03/25/24 07:30 Proposed Procedures p Left Extracorporeal Shock Wave Lithotripsy - Clifton Naik MD Date/Time: 03/25/24 07:19 Surgeon: Clifton Naik MD Pre Op Diagnosis: left renal stone Patient Data Age: 68 Gender: F Height: 1.68 m Weight: 46 kg Allergies Allergy/AdvReac Type Severity Reaction Status Date / Time Penicillins Allergy Severe Anaphylaxis Verified 03/15/24 09:22 meperidine Allergy Intermediate Itching Verified 03/15/24 09:22 sulfamethoxazole Allergy Intermediate Mouth Verified 03/15/24 09:22 [From Bactrim] burning/redness trimethoprim [From Bactrim] Allergy Intermediate Mouth Verified 03/15/24 09:22 burning/redness Home Medications Medication Instructions Recorded Confirmed Type aspirin 81 mg tablet,delayed 81 mg PO DAILY 06/02/19 03/15/24 History release (Adult Aspirin Regimen) cyclobenzaprine 5 mg tablet 5 mg PO BID 01/05/20 03/15/24 History oxycodone myristate 13.5 mg 13.5 mg PO BID 11/19/21 03/15/24 History capsule sprinkle extend release 12hr(DON'T CRUSH) (Xtampza ER) fluticasone propionate 50 1 spray intranasal PRN PRN Allergy 05/09/22 03/15/24 History mcg/actuation nasal Symptoms spray,suspension (Flonase Allergy Relief) solifenacin 10 mg tablet (Vesicare) 5 mg PO DAILY 02/04/23 03/15/24 History omeprazole 40 mg capsule,delayed 40 mg PO DAILY #90 caps 03/24/23 03/15/24 Rx release cholecalciferol (vitamin D3) 125 125 mcg PO DAILY 07/24/23 03/15/24 History mcg (5,000 unit) tablet (Vitamin D3) guaifenesin 600 mg tablet, 600 mg PO Q12H 07/24/23 03/15/24 History extended release 12 hr (Mucinex) loratadine 10 mg tablet 10 mg PO DAILY 07/24/23 03/15/24 History alendronate 70 mg tablet 70 mg PO WEEKLY 08/12/23 03/15/24 History ferrous sulfate 325 mg (65 mg See Rx Instructions .Route 09/18/23 03/15/24 Rx iron) tablet (FeroSul) .COMPLEX #30 tabs metoprolol succinate 25 mg See Rx Instructions .Route 10/28/23 03/15/24 Rx tablet,extended release 24 hr .COMPLEX #90 tabs [id number] 8 mg-folic 400 1 tablet PO DAILY 11/19/23 03/15/24 History mcg-K 50 mcg-lutein 300 mcg tablet (Centrum Silver Women) tiotropium 2.5 mcg-olodaterol 2.5 See Rx Instructions .Route 12/28/23 03/15/24 Rx mcg/actuation mist for inhalation .COMPLEX #4 grams (Stiolto Respimat) lovastatin 40 mg tablet 40 mg PO DAILY #90 tabs 01/06/24 03/15/24 Rx nystatin 100,000 unit/mL oral 5 ml PO QID PRN thrush #473 mL 01/06/24 03/15/24 Rx suspension megestrol 625 mg/5 mL (125 mg/mL) 5 ml PO DAILY #150 mL 01/20/24 03/15/24 Rx oral suspension pramipexole 0.25 mg tablet 0.25 mg PO HS #90 tabs 01/26/24 03/15/24 Rx mirtazapine 15 mg tablet 15 mg PO QHS #60 tabs 03/02/24 03/15/24 Rx gabapentin 300 mg capsule 300 mg PO BID #180 caps 03/07/24 03/15/24 Rx albuterol sulfate 2.5 mg/0.5 mL 2.5 mg inhalation BID PRN 03/15/24 03/15/24 History solution for nebulization Shortness Of Breath Or Wheezing albuterol sulfate 90 mcg/actuation See Rx Instructions .Route 03/15/24 03/15/24 History aerosol inhaler .COMPLEX PRN Shortness Of Breath Or Wheezing ketoconazole 2 % topical cream 1 applic topical BID PRN Skin 03/15/24 03/15/24 History Irritation nicotine 21 mg/24 hr daily 1 patch transdermal DAILY 03/15/24 03/15/24 History transdermal patch paroxetine HCl 20 mg tablet (Paxil) 20 mg PO QAM 03/15/24 03/15/24 History Patient hx anesthesia problems: none Family hx anesthesia problems: none Results Review: All pre-operative results and documents have been reviewed as part of the pre- operative evaluation. [facility] Past Medical History Medical History Adenomatous colon polyp Anxiety Arthritis Change in bowel habits Chronic narcotic use Chronic sinusitis Collagen vascular disease Congestion of nasal sinus Constipation COPD (chronic obstructive pulmonary disease) Demyelinating disease Dysphagia Encounter for screening for other metabolic disorders Esophageal dilatation Esophageal stricture Essential hypertension Family history of colon cancer Fibromyalgia Gastroesophageal reflux disease without esophagitis GERD (gastroesophageal reflux disease) High cholesterol History of tobacco abuse Hyperlipidemia due to dietary fat intake Hyperlipidemia, unspecified IBS (irritable bowel syndrome) ILD (interstitial lung disease) Small amount of interstitial lung disease was seen on base of lungs on chest CT 03/25/2018 which was an abdomen and pelvis CT Infectious colitis Kidney infection Kidney stones Lumbar radiculopathy Mass in neck Muscle cramps Olecranon bursitis, left elbow Olecranon bursitis, left elbow On home O2 Osteopenia Oxygen dependent PSVT (paroxysmal supraventricular tachycardia) Rheumatoid arthritis RLS (restless legs syndrome) Shortness of Breath Stomach ulcer Tachycardia Thrush Tobacco abuse Tobacco abuse Trigger finger, left middle finger Urge incontinence Ventricular ectopics Wears glasses Surgical History Surgical History History of lumbar surgery Spinal cord stimulator implanted 05/23/21 Family History Family History Mother Patient's mother is , Onset Age: 72 Sibling Carcinoma of colon Ovarian cancer Lung cancer Rectal cancer Family history of malignant neoplasm of breast in first degree relative Father Brain aneurysm Other Arthritis COPD (chronic obstructive pulmonary disease) Cerebrovascular accident High cholesterol Hypertension Lung disease Neuropathy Social History Social History Social History: caffeine-coffee/soda Smoking packs per day: 1 Smoking cigarettes per day: 20.0 Years smoked: 60 Smoking pack-years: 60.00 Smoking status: Current every day smoker Tobacco type: cigarettes Second hand tobacco smoke exposure: Yes Smoking end date: 05/19/23 Additional smoking assessment comments: TRYING TO STOP SMOKING, smoking ~3/4 pack/day currently Alcohol intake: never Substance use: never Substance use type: does not use Other substance usage details: EDIBLES Last use: 11-18-2021 Do You Feel Safe in your Home?: Yes Lack of Transportation: No Lack of Food: Never True Current Housing: I Have Housing Concerned About Future Housing: No Difficulty Paying Gas/Electric Bills: No Difficulty Paying for Meds: No Currently Unemployed: No Education: High School Diploma/GED Difficulty w/ Childcare or Family Care: No Living arrangements: alone Occupation/Education: retired Gender identity (if verbalized by the patient): Female Spiritual care concerns: No Anes - Eval Final PreProcedure Day of Procedure 03/25/24 07:19 Patient weight: normal Heart: regular rate and rhythm Lungs: clear to auscultation Airway: Mallampati scale class II Neurological: alert and oriented Last oral intake: >/= 8 hours ASA classification: IV Emergent: no Anesthetic plan: proceed Anesthesia type and monitoring: general LMA and standard monitoring Results Review: All pre-operative results and documents have been reviewed as part of the pre- operative evaluation. Informed Consent: The patient's anesthetic plan and its attendant risks and benefits were discussed with the patient/family/POA. Questions were solicited and answers provided to the satisfaction of the patient/family/POA.
== END 2024-03-25 08:30 | disposition home or self-care (01) ==
PROVIDERS: PCP Family Medicine; Visit Provider Urology
PROC: (CPT 50590; principal; 2024-03-25 07:30)
DX: N20.0 Calculus of kidney (principal); Z53.8 Procedure and treatment not carried out for other reasons
CPT/HCPCS: 74018; 74176; 99213; G0463; J3010; J7120

== ENCOUNTER 2024-05-31 14:00 | Outpatient (CLI) | payer MEDICARE, MEDICAID, SELFPAY ==
--- NOTE | ~2024-05-31 | XR_ITS ---
XR chest 2V 05/31/2024 14:17 Indication: COPD Procedure: 2 view chest Comparison: Comparison to multiple prior studies sequentially, with oldest reviewed study dated 01/30. Findings: Heart size normal. No focal air space disease, pulmonary edema, pleural effusion or suspect ed pneumothorax. The lungs are hyperinflated which is consistent with, but not diagnostic of chronic obstructive pulmonary disease. Chronic bilateral apical scarring/pleural thickening. Impression: 1: No acute cardiopulmonary disease. Reviewed, dictated and finalized at location A. TY PHYSICIAN Impression: 1: No acute cardiopulmonary disease.
--- OUTSIDE RECORDS SUMMARY | 2024-05-31 14:38 | XMS_ITS | Data Portability ---
Author Organization [facility], Main Office Address [address] [place] [address] Assessment Encounter Date Assessment Date Assessment LastModified by Organization Details LastModified Time 11/20/2022 11/20/2022 This note is dictated and transcribed by [employer]. [employer] Seat [employer]pholste[employer] variances may occur. Despite proofreading, typographical errors may occur. nas Not available 11/20/2022 16:36:51 Plan of Treatment Reminders Order Date Submit Date Provider Last Modified By Organization Details Last Modified Time Details Appointments None record ed. Lab None record ed. Referral None record ed. Procedures None record ed. Surgeries None record ed. Imaging None record ed. Medication Orders None record ed. Patient TargetsNo targets recorded. Patient InstructionsNo instructions recorded. Reason for Referral None Reported. Problems Name Problem SNOMED Code Status Onset Date Resolution Date Notes Provider Name and Address Organization Details Recorded Time Metatarsalg ia of right foot 7576214882917 00 Active 2022 Shemar Fairchild DPM [address], [address], [place], [address], [facility] 3 16:36:55 Foot callus 110748394 Active 2022 Shemar Fairchild DPM [address], [address], [place], [address], [facility] 3 16:36:59 Hammer toe 177020063 Active 2022 Shemar Fairchild DPM [address], [address], [place], [address], [facility] 3 16:37:19 Problem Notes None recorded. Procedures Surgical History Date Name Laterality Status Provider Name and Address Organization Details Recorded Time Hysterectomy, Partial completed Joycelyn Bean [facility] 11/20/2022 16:57:02 Appendectomy completed Joycelyn Bean [facility] 11/20/2022 16:57:06 Total hysterectomy completed Joycelyn Bean [facility] 11/20/2022 16:57:18 release of trigger finger completed Joycelyn Bean [facility] 11/20/2022 16:57:28 Tonsillectomy completed Joycelyn Bean [facility] 11/20/2022 16:57:34 Imaging Results None recorded. Procedure Notes None recorded. Medical Equipment None Reported. Allergies Allergen ID Allergen Name Allergen Category Reaction Reaction Severity Criticality Documentation Date Start Date Code Code System Note Provider Name and Address Organization Details Recorded Time 83000 Product containin g penicilli n and antibioti c (product) medicatio n Not available Not available Not available 11/20/2022 36768 05 [facility]ED [facility] 16:[facility]43 99613 meperidin e medicatio n Not available Not available Not available 11/20/2022 6754 RxNorm [facility] 16:51:54 76167 sulfadime thoxine Not available Not available Not available Not available 11/20/2022 29672 Rx[facility] 16:52:05 53401 trimethop rim medicatio n Not available Not available Not available 11/20/2022 74903 RxNorm [facility] 16:52:18 Medications Name Sig Start Date Stop Date Status Note LastModified by Organization Details LastModified Time nystatin 100,000 unit/mL oral suspension SWISH AND SWALLOW 5 ML BY MOUTH FOUR TIMES DAILY NEEDED FOR THRUSH active Not Available Not Available No t Available paroxetine 10 mg tablet Take 1 tablet every day by oral route. active Not Available Not Available No t Available azithromycin 250 mg tablet active Not Available Not Availabl e Not Available prednisone 20 mg tablet TAKE 1 TABLET BY MOUTH TWICE DAILY FOR 5 DAYS active Not Available Not Available No t Available alendronate 70 mg tablet TAKE 1 TABLET BY MOUTH WEEKLY active Not Available Not Available No t Available lovastatin 40 mg tablet TAKE 1 TABLET BY MOUTH DAILY active Not Available Not Available No t Available sertraline 100 mg tablet TAKE 1 TABLET BY MOUTH DAILY active Not Available Not Available No t Available prednisone 5 mg tablet TAKE 1 TABLET BY MOUTH TWICE DAILY active Not Available Not Available No t Available omeprazole 40 mg capsule,delay ed release TAKE 1 CAPSULE BY MOUTH DAILY active Not Available Not Available No t Available potassium citrate-citri c acid 1,100 mg-334 mg/5 mL oral solution TAKE 10 ML BY MOUTH TWICE DAILY WITH MEALS active Not Available Not Available No t Available paroxetine 20 mg tablet TAKE 1 TABLET BY MOUTH DAILY active Not Available Not Available No t Available pramipexole 0.125 mg tablet active Not Available Not Available Not Available pramipexole 0.25 mg tablet TAKE 1 TABLET BY MOUTH EVERY NIGHT 2 HOURS BEFORE BEDTIME active Not Available Not Available No t Available gabapentin 300 mg capsule TAKE 1 CAPSULE BY MOUTH FOUR TIMES DAILY active Not Available Not Available No t Available metoprolol succinate ER 25 mg tablet,extend ed release 24 hr TAKE 1 TABLET BY MOUTH DAILY active Not Available Not Available No t Available ergocalcifero l (vitamin D2) 1,250 mcg (50,000 unit) capsule TAKE ONE CAPSULE BY MOUTH WEEKLY active Not Available Not Available No t Available albuterol sulfate HFA 90 mcg/actuation aerosol inhaler INHALE 1 PUFF BY MOUTH EVERY 4 HOURS NEEDED FOR SHORTNESS OF BREATH active Not Available Not Available No t Available fluticasone propionate 50 mcg/actuation nasal spray,suspens ion SHAKE LIQUID AND USE 1 SPRAY IN EACH NOSTRIL TWICE DAILY active Not Available Not Available No t Available cyclobenzapri ne 5 mg tablet TAKE 1 TABLET BY MOUTH EVERY DAY TO TWICE DAILY NEEDED active Not Available Not Available No t Available solifenacin 5 mg tablet TAKE 1 TABLET BY MOUTH DAILY active Not Available Not Available No t Available Vitamin C active Not Available Not Cindy ilable Not Available oxycodone active Not Available Not Cindy ilable Not Available aspirin active Not Available Not Avail able Not Available alendronate active Not Available Not A vailable Not Available nystatin active Not Available Not Avai lable Not Available pramipexole active Not Available Not A vailable Not Available omeprazole active Not Available Not Av ailable Not Available iron active Not Available Not Availa ble Not Available albuterol sulfate active Not Available Not Available Not Available cyclobenzapri ne active Not Available Not Available Not Available metoprolol succinate active Not Available Not Available No t Available lovastatin active Not Available Not Av ailable Not Available gabapentin active Not Available Not Av ailable Not Available Vitamin B12 active Not Available Not A vailable Not Available D2.5 %-0.45 % sodium chloride active Not Available Not Available Not Available Vesicare active Not Available Not Avai lable Not Available FeroSul 325 mg (65 mg iron) tablet TAKE 1 TABLET BY MOUTH DAILY IN THE MORNING ON AN EMPTY STOMACH active Not Available Not Available No t Available Stiolto Respimat 2.5 mcg-2.5 mcg/actuation solution for inhalation INHALE 2 PUFFS BY MOUTH DAILY active Not Available Not Available No t Available Xtampza ER 13.5 mg capsule sprinkle TAKE 1 CAPSULE BY MOUTH EVERY 12 HOURS active Not Available Not Available No t Available Bevespi Aerosphere 9 mcg-4.8 mcg HFA aerosol inhaler INHALE 2 PUFFS BY MOUTH EVERY 12 HOURS active Not Available Not Available No t Available Bevespi Aerosphere active Not Available Not Available N ot Available fluticasone 0.05 % lotion-emolli ent combo no.65 cream, topical kit active Not Available Not Available Not Available Vitals Date Recorded Heart rate Respiratory rate Oxygen saturation Oxygen saturation in Arterial blood by Pulse oximetry Body height Body mass index (BMI) Body weight Systolic blood pressure Diastolic blood pressure Provider Name and Address Organization Details Last Updated DateTime 3 81 /min 16 /min 97 % 97 % 167.64 cm 16.9 kg/m2 82943.2 g 142 mm[Hg] 78 mm[Hg] Joycelyn HAYNES [employer] [facility] 3 16:19:04 Date Recorded Body height Body mass index (BMI) Body weight Heart rate Respiratory rate Oxygen saturation Oxygen saturation in Arterial blood by Pulse oximetry Systolic blood pressure Diastolic blood pressure Provider Name and Address Organization Details Last Updated DateTime 3 167.64 cm 16.9 kg/m2 48213.2 g 72 /min 14 /min 97 % 97 % 134 mm[Hg] 69 mm[Hg] Joycelyn HAYNES [place] [employer] [facility] 3 14:02:12 Social History Question Answer Notes LastModified by Organizat ion Details LastModified Time Tobacco Smoking Status Current Every Day Smoker MAGEN [place] [facility] 11/20/2022 16:56:20 What Is Your Level Of Alcohol Consumption? None Information not available 11/20/2022 What Is Your Level Of Caffeine Consumption? Heavy Information not available 11/20/2022 What Was The Date Of Your Most Recent Tobacco Screening? 11/20/2022 Information not available 11/20/2022 Do You Use Any Illicit Or Recreational Drugs? No Information not available 11/20/2022 Has Tobacco Cessation Counseling Been Provided? No Information not available 11/20/2022 Do You Or Have You Ever Used Any Other Forms Of Tobacco Or Nicotine? No Information not available 11/20/2022 Sex: Unknown Functional Status None recorded. Mental Status None recorded. Family History Relationship Description Onset Age of this Age Resolved Age Notes LastModified by Organization Details LastModified Time Father Family history of stroke Not available 2022 16:55:31 Father Pulmonary embolism Not available 2022 16:55:59 Sister Family history of malignant neoplasm breast and rectal Not available 11/20/2022 16:55:49 Medical History Condition Response ALLERGIES/HAYFEVER Y LUNG DISEASE/DISORDER Y HIGH CHOLESTEROL / HYPERLIPIDEMIA Y BACK / NECK PROBLEMS Y FIBROMYALGIA Y URINARY/BLADDER/KIDNEY PROBLEMS Y ARTHRITIS Y HEARTBURN / REFLUX Y PULMONARY DISEASE Y Gynecological HistoryNo gynecological history recorded. Obstetrics History GPAL:G 0 P 0 0 0 0 Past Encounters Encounter ID Performer Location Encounter Start Date Encounter Closed Date Diagnosis/Indication Diagnosis SNOMED-CT Code Diagnosis ICD10 Code Diagnosis Note [id number] Shemar Fairchild DPM [facility] [place] [address] [place] [address] 11/20/2022 16:13:05 11/25/2022 16:43:24 Metatarsalgia of right foot 3964860129 55440 M77.41 sub 3rd metatarsal head, right footas above Foot callus 414927709 L8 4 sub 3rd metatarsal headMildOf floading with metatarsal pad had to functional orthoticse ducated on supportive shoe gearFollow -up in 1 month Hammer toe 541978285 M20 .41 right 2nd 3rd toes mildEducat ed on treatment optionCont inue with conservati ve therapy [id number] Shemar Fairchild DPM [facility] [place] [address], [address] [place] [address] 12/18/2022 13:48:12 12/18/2022 14:26:06 Hammer toe 438461400 M20.41 right 2nd 3rd toes mildpatien t would like to continue with conservati ve therapyrec ommend silicone sleeves and soft high toe box shoe to prevent wounds infectionF ollow-up as needed Foot callus 354337568 L8 4 sub 3rd metatarsal headresolv ed with offloading Metatarsal ella of right foot 4297298262 64013 M77.41 sub 3rd metatarsal head, right footResolv ed with felt dancer's padPatient educated on accommodat amadeo inserts which may also help to reduce pressure Health Concerns Section Related Observation LastModified by Organization Detai ls LastModified Time None Recorded Concern Status LastModified by Organization Details LastModified Time None Recorded Advance Directives Directive None Recorded Payers Encounter Date Sequence Insurance Name Policy Number Policy Granados Covered Member ID Granados Member ID Guarantor Name 11/20/2022 1 [place] Melyssa A [place] [id number] Melyssa A [place] 11/20/2022 2 [place] [facility] M[place]ssa A [place] [id number] Melyssa A [place] 12/18/2022 1 [place] M[place]a A [place] [id number] Melyssa A [place] 12/18/2022 2 [place] [facility] Melyssa A [place] [id number] Melyssa A [place] Notes Date Note Type Note Provider Name and Address Organization Details Recorded Time 11/20/2022 text/html . Patient is a 67-year-old female who presents the office with complaints right foot pain. Patient states that when she is walking she has pain under her 3rd metatarsal head. Patient states that she developed a mild callus to this area. 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 Patient was educated on different shoe gear and I recommend a new balance style shoe. Patient was given a new offloading pad to reduce pressure to the metatarsal heads of the right foot. Patient may benefit from accommodative orthotics instead of functional orthotics and I also discussed different offloading options including a silicone metatarsal dancer's pad. Patient denies any other pedal complaints. Shemar Fairchild DPM [address], [address], [place], [address], [facility] 11/25/2022 12:13:28 12/18/2022 text/html . Patient is a 67-year-old female who returns the office for follow-up on hammertoe and callus. Patient has obtain the offloading silicone sleeves and with use of the felt dancer's pad in her custom orthotics has not developed any recurrence in callusing. Patient states that this significantly helps in her pain controlling aspect. Patient denies any redness or wounds to the foot. Patient states she would like to continue with conservative therapy and if this continues to be problematic would require potential surgery but at this time she is doing much better. Shemar Fairchild DPM [address], [address], [place], [address], [facility] 12/18/2022 14:07:57 OBGyn Episode No OBEpisode recorded.
--- OUTSIDE RECORDS SUMMARY | 2024-05-31 14:39 | XMS_ITS | Patient Health Summary ---
Author Organization [facility] Address [address] [place] [address] Care Team Providers Care Mold Laminator Name Role Phone Tommy King DO Primary Care Provider [phone] Note from [facility],non-owned Affiliates and Associated Physician Practices is amultiple site organization consisting of ambulatory clinics and hospital sitesin [place], [place], [place] and [place]. This disclosure is being madepursuant to the Care Everywhere program and may not contain all information available regarding this patient. Last updated 18.[facility] Allergies * Meperidine(Rash) -Medium Criticality * Penicillins(Anaphylaxis) -High Criticality * Sulfamethoxazole W-Trimethoprim(Other) Medications * Be aware that medications may not be up to date on this document. Alwaysverify current medications with the patient. * metoprolol succinate XL 24hr (TOPROL XL) 25 MG tablet(Started 10/02/2020) Take 25 mg by mouth once daily * hydroCHLOROthiazide (HYDRODIURIL) 12.5 MG(Started 02/15/2021) Take 12.5 mg by mouth once daily * gabapentin (NEURONTIN) 300 MG capsule(Started 03/15/2021) Take 300 mg by mouth 4 times daily * cyclobenzaprine (FLEXERIL) 5 MG tablet(Started 09/17/2020) Take 5 mg by mouth 2 times daily * omeprazole (PRILOSEC) 40 MG capsule(Started 01/19/2021) Take 40 mg by mouth once daily * solifenacin (VESICARE) 5 MG tablet(Started 01/16/2021) TAKE 1 TABLET(5 MG) BY MOUTH DAILY * lovastatin (MEVACOR) 40 MG tablet(Started 01/19/2021) Take 40 mg by mouth once daily * sertraline (ZOLOFT) 100 MG tablet(Started 02/14/2021) Take 100 mg by mouth once daily * glycopyrrolate-formoterol (BEVESPI AEROSPHERE) 9-4.8 MCG/ACT inhaler(Started 02/21/2021) INHALE 2 PUFFS BY MOUTH EVERY 12 HOURS * vitamin B-12 (CYANOCOBALAMIN) 500 MCG tablet Take 500 mcg by mouth once daily * loratadine (CLARITIN) 10 MG tablet Take 10 mg by mouth once daily * fluticasone propionate (FLONASE) 50 MCG/ACT nasal spray [place] 2 sprays into the nose once daily * albuterol HFA (PROVENTIL; VENTOLIN; PROAIR) 108 (90 Base) MCG/ACT inhaler Inhale 2 puffs by mouth * XTAMPZA ER 13.5 MG capsule(Started 04/10/2021) Take 13.5 mg by mouth every 12 hours * RESTASIS 0.05 % ophthalmic suspension(Started 04/04/2021) 1 drop 2 times daily BOTH EYES * NARCAN 4 MG/0.1ML nasal spray(Started 03/15/2020) * potassium chloride ER (KLOR-CON) 10 MEQ tablet(Started 12/05/2020) 10 mEq once daily * aspirin EC (ECOTRIN) 81 MG tablet Take 81 mg by mouth once daily * Rhnirwbjlsfuwuz-AQ-ZC-APAP (ROBITUSSIN COLD/COUGH/FLU PO) Take 13.5 mg by mouth * clotrimazole-betamethasone (LOTRISONE) 1-0.05 % cream(Started 04/24/2021) APPLY TOPICALLY TO THE AFFECTED AREA TWICE DAILY * potassium citrate (UROCIT K 10) 10 MEQ (1080 MG) tablet(Started 06/10/2021) * doxycycline monohydrate 100 MG tablet(Started 05/06/2021) TAKE 1 TABLET BY MOUTH DAILY FOR 10 DAYS * zrtshxfc-gjcbzsttl-bhzhgewl (MAXITROL) ophthalmic suspension(Started 07/30/2021) Active Problems Problem Noted Date Diagnosed Date Chronic bilateral low back pain Immunizations * iNFLUENZA VACCINE, RECOM-SHEPARD, QUADR. (FLUBLOCK QUADRIVALENT; 18Y+) (RIV4)(Given 01/13/2018) Social History Tobacco Use Types Packs/Day Years Used Date Smoking Tobacco: Every Day Cigarettes Smokeless Tobacco: Never Tobacco Cessation:Ready to Q uit: Yes; Counseling Given: Yes Alcohol Use Standard Drinks/Week Comments Never 0 (1 standard drink = 0.6 oz pur e alcohol) Sex and Gender Information Value Date Recorded Sex Assigned at Not on file Gender Identity Not on file Sexual Orientation Not on file Last Filed Vital Signs Vital Sign Reading Time Taken Comments Blood Pressure 126/40 08/05/2021 9:59 AM CDT Pulse 82 08/05/2021 9:59 AM CDT Temperature 36.8 ??C (98.3 ??F) 06/12/2021 10:[address] Respiratory Rate 18 05/23/2021 12:51 PM LATHER APPRENTICE Oxygen Saturation 91% 08/05/2021 9:59 AM CDT Inhaled Oxygen Concentration - - Weight 56.7 kg (125 lb) 08/05/2021 9:59 AM CDT Height 167.6 cm (5' 6 ) 08/05/2021 9:59 AM CDT Body Mass Index 20.18 08/05/2021 9:59 AM CDT Medical Devices Implanted Type Area Ship Worker Device Identifier Shelf Expiration Date Model / Serial / Lot Lead Nrstm 60cm Penta 3mm Pdl 16 [facility] - [id number] Implanted:Qty: 1 on 05/23/2021 by Esau Rose MD at [facility] Back [employer] 10/19/2022 [id number] / [id number] / Slnt Dura Duraseal Pg Trilysine Amine 5 Implanted:Qty: 1 on 05/23/2021 by Esau Rose MD at [facility] Back [employer] Erendira [id number] / / [id number] Gntr Nrstm 1.95inx2.19in Proclaim Elt - [id number] Implanted:Qty: 1 on 05/23/2021 by Esau Rose MD at [facility] Left: Back [employer] 03/26/2023 [id number] / [id number] / Procedures * CARDIAC RHYTHM STRIP ORDER(Performed 05/27/2021) * FL BRITTANY SURGERY(Performed 05/23/2021) Performed for Pain * ENDOTRACHEAL TUBE NOTE(Performed 05/23/2021) * LAMINECTOMY THORACIC(Performed 05/23/2021) Performed for Diagnosis unknown * EKG 12-LEAD(Performed 04/23/2021) Performed for Pre-op testing * XR CHEST 2VW(Performed 04/23/2021) Performed for Pre-op testing * PTT(Performed 04/23/2021) Performed for Pre-op testing * PT-INR(Performed 04/23/2021) Performed for Pre-op testing * CBC W AUTO DIFFERENTIAL(Performed 04/23/2021) Performed for Pre-op testing * BASIC METABOLIC PANEL (CALCIUM TOTAL)(Performed 04/23/2021) Performed for Pre-op testing Results * CARDIAC RHYTHM STRIP ORDER (05/27/2021 8:42 PM LATHER APPRENTICE) Narrative 05/27/2021 8:42 PM LATHER APPRENTICE Ordered by an unspecified provider. Scanned Document CARDIAC SERVICES ORD ERABLES * FL BRITTANY SURGERY (05/23/2021 9:00 AM LATHER APPRENTICE) Narrative [facility] - 05/23/2021 3:44 PM LATHER APPRENTICE For details of this study, please see the providers note. Esau Rose MD FLUOROSCOPY MICHELLE ORO [facility] [address] [place] [address] * ETT LINE PERFORMABLE (05/23/2021 8:04 AM LATHER APPRENTICE) Narrative Chanel De LaF uente APRN-CRNA - 05/23/2021 8:04 AM LATHER APPRENTICE Chanel De La Fuente APRN-CRNA ? 05/23/2021 ??8:04 AM Endotracheal Tube Placement: ? Patient Location: OR. Intubation Event Date/Time: ??05/23/2021 7:42 AM Procedure: intubation ([id number]). Procedure Section: ?? Sedation: under general anesthesia. Indications for Airway Management: ??anesthesia Induction: standard IV Patient Position: ??sniffing Mask Ventilation: easy. Blade Type: Bruno Blade Size: 4 Laryngoscopy View: grade 1 (full cords) Intubation Adjuncts: stylet Tube: endotracheal tube Placement: oral Tube type: cuff - inflated Tube Size (MM): 7 Depth of Insertion (CM): 21 Measured From: gums Cuff volume (mL): ??7 Cuff Inflated With: air Number of Attempts: 1. Placement Verified By: direct visualization, bilateral breath sounds, chest auscultation and CO2 monitor Tube secured with: ??adhesive tape. Difficult Airway? ??No. Procedure Start Time: 05/23/2021 7:42 AM. Staff Section ? Anesthesia Provider: Chanel De La Fuente APRN-WENDY, Performed the procedure Additional Comments: oral mucosa unchanged from pre-op exam following DVOI.. Noble Monaco MD GENERAL ANESTHESIA ORDERABLES * EKG 12-LEAD (04/23/2021 1:53 PM LATHER APPRENTICE) Ventricular Rate 73 BPM [facility] Atrial Rate 73 BPM [facility] P-R Interval 152 ms [facility] QRS Duration ms 82 ms [facility] Q-T Interval ms 404 ms [facility] QTC Calculation (Bezet) 445 ms [facility] Calculated P [place] 79 degrees [facility] Calculated R [place] 49 degrees [facility] Calculated T [place] 72 degrees [facility] Interpretation EKG NORMAL SINUS RHYTHM NORMAL ECG NO PREVIOUS ECGS AVAILABLE Confirmed by MD Sindhu, Myron ([id number]) on 04/24/2021 8:11:04 AM [facility] MUSE 04/23/2021 1:53 PM LATHER APPRENTICE 04/24/2021 8:11 AM LATHER APPRENTICE Esau Rose MD ECG ORDERABLES [facility] * XR CHEST 2VW (04/23/2021 1:21 PM LATHER APPRENTICE) Anatomical Region Laterality Modality Chest Radiographic Ines ging 04/23/2021 3:02 PM LATHER APPRENTICE Impressions 04/23/2021 3:02 PM LATHER APPRENTICE No acute process. Suspected emphysema. *Reading Radiologist: Maximo Mondragon on 04/23/2021 at 3:02 PM Narrative 04/23/2021 3:02 PM LATHER APPRENTICE CHEST PA AND LATERAL. HISTORY: Encounter for other preprocedural examination COMPARISON: 9. FINDINGS: The lungs are hyperinflated and diaphragm is flattened suggestive of underlying emphysema. The heart size is normal. The mediastinal silhouette is normal. The pulmonary vasculature is within normal limits. The lungs are clear. There is no evidence of pneumothorax or pleural effusion. Procedure Note Maximo Mondragon MD - 04/23/2021 CHEST PA AND LATERAL. HISTORY: Encounter for other preprocedural examination COMPARISON: 9. FINDINGS: The lungs are hyperinflated and diaphragm is flattened suggestive of underlying emphysema. The heart size is normal. The mediastinal silhouette is normal. The pulmonary vasculature is within normal limits. The lungs are clear. There is no evidence of pneumothorax or pleural effusion. IMPRESSION No acute process. Suspected emphysema. *Reading Radiologist: Maximo Mondragon on 04/23/2021 at 3:02 PM Esau Rose MD DIAGNOSTIC IMAGI NG ORDERABLES * PTT (04/23/2021 12:50 PM LATHER APPRENTICE) PTT 27.4 23.0 - 38.4 sec 04/23/2021 1:33 PM LATHER APPRENTICE [facility] Blood BLOOD SPECIMEN / Unknown Venipuncture / Unknown 04/23/2021 12:50 PM LATHER APPRENTICE 04/23/2021 1:09 PM LATHER APPRENTICE Narrative [facility] - 04/23/2021 1:33 PM LATHER APPRENTICE Heparin Therapeutic Range for PTT: ??69.0 - 110.0 seconds. Esau Rose MD LAB - COAGULATIO N ORDERABLES [facility] [address] [place] [address] * PT-INR (04/23/2021 12:50 PM LATHER APPRENTICE) PT 12.9 12.1 - 14.8 sec 04/23/2021 1:33 PM [facility] INR 1.0 0.9 - 1.1 04/23/2021 1:33 PM [facility] Blood BLOOD SPECIMEN / Unknown Venipuncture / Unknown 04/23/2021 12:50 PM LATHER APPRENTICE 04/23/2021 1:09 PM LATHER APPRENTICE [facility] - 04/23/2021 1:33 PM LATHER APPRENTICE Conventional Warfarin Anticoagulant Therapy: INR Reference Range: ??2.0-3.0 Intensive Warfarin Anticoagulant Therapy: INR Reference Range: ? 2.5-3.5 Esau Rose MD LAB - COAGULATIO N ORDERABLES Performing Organization Address City/State/[facility] Co de Phone Number [facility] [address] [place] [address] * CBC WITH DIFFERENTIAL (04/23/2021 12:50 PM LATHER APPRENTICE) [facility] WBC 5.5 4.4 - 10.7 x10E9/L 04/23/2021 1:25 PM [facility] WBC Corrected 04/23/2021 1:25 PM [facility] RBC 4.51 3.80 - 5.20 x10E12/L 04/23/2021 1:25 PM [facility] Hemoglobin 13.3 12.0 - 15.6 gm/dL 04/23/2021 1:25 PM [facility] Hematocrit 41.0 35.9 - 45.5 % 04/23/2021 1:25 PM [facility] MCV 90.9 80.7 - 98.3 fl 04/23/2021 1:25 PM [facility] MCH 29.5 26.7 - 34.0 pg 04/23/2021 1:25 PM [facility] MCHC 32.4 30.8 - 35.9 gm/dL 04/23/2021 1:25 PM [facility] Platelet Count 178 153 - 416 x10E9/L 04/23/2021 1:25 PM [facility] RDW-CV 14.1 12.1 - 14.9 % 04/23/2021 1:25 PM LATHER APPRENTICE [facility] MPV 10.0 9.4 - 12.9 fl 04/23/2021 1:25 PM LATHER APPRENTICE [facility] Neutrophils % 67.7 44.0 - 73.0 % 04/23/2021 1:25 PM LATHER APPRENTICE [facility] Lymphocytes % 22.6 20.0 - 43.0 % 04/23/2021 1:25 PM LATHER APPRENTICE [facility] Monocytes % 7.6 5.0 - 13.0 % 04/23/2021 1:25 PM LATHER APPRENTICE [facility] Eosinophils % 1.1 0.0 - 6.0 % 04/23/2021 1:25 PM LATHER APPRENTICE [facility] Basophils % 0.5 0.0 - 2.0 % 04/23/2021 1:25 PM LATHER APPRENTICE [facility] Immature Granulocytes 0.5 0 - 1 % 04/23/2021 1:25 PM LATHER APPRENTICE [facility] Neutrophil Absolute 3.73 2.01 - 7.14 x10E9/L 04/23/2021 1:25 PM [facility] Lymphocytes Absolute 1.25 1.07 - 3.94 x10E9/L 04/23/2021 1:25 PM [facility] Monocytes Absolute 0.42 0.26 - 1.07 x10E9/L 04/23/2021 1:25 PM LATHER APPRENTICE [facility] Eosinophils Absolute 0.06 0 - 0.47 x10E9/L 04/23/2021 1:25 PM [facility] Basophils Absolute 0.03 0 - 0.08 x10E9/L 04/23/2021 1:25 PM [facility] Immature Granulocytes Absolute 0.03 0.00 - 0.06 x10E9/L 04/23/2021 1:25 PM [facility] nRBC Auto 0 /100 WBC 04/23/2021 1:25 PM [facility] Blood BLOOD SPECIMEN / Unknown Venipuncture / Unknown 04/23/2021 12:50 PM LATHER APPRENTICE 04/23/2021 1:09 PM LATHER APPRENTICE Esau Rose MD LAB - HEMATOLOGY ORDERABLES [facility] [address] [place] [address] * (ABNORMAL) BASIC METABOLIC PANEL (CALCIUM TOTAL) (04/23/2021 12:50 PM LATHER APPRENTICE) Glucose 98 70 - 105 mg/dL 04/23/2021 1:48 PM LATHER APPRENTICE [facility] Sodium 138 136 - 145 mmol/L 04/23/2021 1:48 PM LATHER APPRENTICE [facility] Potassium 3.6 3.5 - 5.1 mmol/L 04/23/2021 1:48 PM LATHER APPRENTICE [facility] Chloride 99 98 - 107 mmol/L 04/23/2021 1:48 PM LATHER APPRENTICE [facility] CO2 27 23 - 31 mmol/L 04/23/2021 1:48 PM [facility] Calcium 9.3 8.4 - 10.4 mg/dL 04/23/2021 1:48 PM [facility] Anion Gap 12 8 - 18 mmol/L 04/23/2021 1:48 PM [facility] BUN 9(L) 9.8 - 20.1 mg/dL 04/23/2021 1:48 PM [facility] Creatinine 0.82 0.57 - 1.11 mg/dL 04/23/2021 1:48 PM LATHER APPRENTICE [facility] eGFR by MDRD >60 >60 mL/min/1.7 3m2 04/23/2021 1:48 PM [facility] eGFR by MDRD >60 >60 mL/min/1.7 3m2 04/23/2021 1:48 PM [facility] Blood BLOOD SPECIMEN / Unknown Venipuncture / Unknown 04/23/2021 12:50 PM LATHER APPRENTICE 04/23/2021 1:09 PM LATHER APPRENTICE Esau Rose MD LAB - CHEMISTRY ORDERABLES [facility] [address] [place] [address] Care Teams Mold Laminator Relationship Specialty Start Date End Date Tommy King DO PCP - General Internal Medicine 04/23/21
--- OUTSIDE RECORDS SUMMARY | 2024-05-31 14:39 | XMS_ITS | Referral Summary ---
Author Organization [facility] Address [address] [place] [address] Care Team Providers Care Boilermaker Apprentice Name Role Phone Tommy King DO Primary Care Provider [phone] Source Comments [facility],non-owned Affiliates and Associated Physician Practices is amultiple site organization consisting of ambulatory clinics and hospital sitesin [place], [place], [place] and [place]. This disclosure is being madepursuant to the Care Everywhere program and may not contain all information available regarding this patient. Last updated 18.[facility] Allergies Active Allergy Reactions Criticality Noted Date Comments Meperidine Rash Medium 01/13/2018 Penicillins Anaphylaxis High 01/13/2018 Sulfamethoxazole W-Trimethoprim Other 05/05 Burned her mouth Medications * Be aware that medications may not be up to date on this document. Alwaysverify current medications with the patient. Medication Sig Dispensed Refills Start Date End Date Status metoprolol succinate XL 24hr (TOPROL XL) 25 MG tablet Take 25 mg by mouth once daily 10/02/2020 Active hydroCHLOROthiazide (HYDRODIURIL) 12.5 MG Take 12.5 mg by mouth once daily 02/15/2021 Active gabapentin (NEURONTIN) 300 MG capsule Take 300 mg by mouth 4 times daily 03/15/2021 Active cyclobenzaprine (FLEXERIL) 5 MG tablet Take 5 mg by mouth 2 times daily 09/17/2020 Active omeprazole (PRILOSEC) 40 MG capsule Take 40 mg by mouth once daily 01/19/2021 Active solifenacin (VESICARE) 5 MG tablet TAKE 1 TABLET(5 MG) BY MOUTH DAILY 01/16/2021 Active lovastatin (MEVACOR) 40 MG tablet Take 40 mg by mouth once daily 01/19/2021 Active sertraline (ZOLOFT) 100 MG tablet Take 100 mg by mouth once daily 02/14/2021 Active glycopyrrolate-formot martín (BEVESPI AEROSPHERE) 9-4.8 MCG/ACT inhaler INHALE 2 PUFFS BY MOUTH EVERY 12 HOURS 02/21/2021 Active vitamin B-12 (CYANOCOBALAMIN) 500 MCG tablet Take 500 mcg by mouth once daily Active loratadine (CLARITIN) 10 MG tablet Take 10 mg by mouth once daily Active fluticasone propionate (FLONASE) 50 MCG/ACT nasal spray [place] 2 sprays into the nose once daily Active albuterol HFA (PROVENTIL; VENTOLIN; PROAIR) 108 (90 Base) MCG/ACT inhaler Inhale 2 puffs by mouth Active XTAMPZA ER 13.5 MG capsule Take 13.5 mg by mouth every 12 hours 04/10/2021 Active RESTASIS 0.05 % ophthalmic suspension 1 drop 2 times daily BOTH EYES 04/04/2021 Active NARCAN 4 MG/0.1ML nasal spray 03/15/2020 Active potassium chloride ER (KLOR-CON) 10 MEQ tablet 10 mEq once daily 12/05/2020 Active aspirin EC (ECOTRIN) 81 MG tablet Take 81 mg by mouth once daily Active Zvvuwgpknekeegf-NS-FQ -APAP (ROBITUSSIN COLD/COUGH/FLU PO) Take 13.5 mg by mouth Active clotrimazole-betameth asone (LOTRISONE) 1-0.05 % cream APPLY TOPICALLY TO THE AFFECTED AREA TWICE DAILY 04/24/2021 Active potassium citrate (UROCIT K 10) 10 MEQ (1080 MG) tablet 06/10/2021 Active doxycycline monohydrate 100 MG tablet TAKE 1 TABLET BY MOUTH DAILY FOR 10 DAYS 05/06/2021 Active ksbfpbyf-rdefqmwxw-ow xameth (MAXITROL) ophthalmic suspension 07/30/2021 Act amadeo Active Problems Problem Noted Date Diagnosed Date Chronic bilateral low back pain Immunizations Name Administration Dates Next Due iNFLUENZA VACCINE, RECOM-SHEPARD, QUADR. 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 Oxygen Saturation 91% 08/05/2021 9:59 AM CDT Inhaled Oxygen Concentration - - Weight 56.7 kg (125 lb) 08/05/2021 9:59 AM CDT Height 167.6 cm (5' 6 ) 08/05/2021 9:59 AM CDT Body Mass Index 20.18 08/05/2021 9:59 AM CDT Plan of Treatment Not on file Medical Devices Implanted Type Area Scroll Saw Operator Device Identifier Shelf Expiration Date Model / Serial / Lot Lead Nrstm 60cm Penta 3mm Pdl 16 [facility] - [id number] Implanted:Qty: 1 on 05/23/2021 by Esau Rose MD at [facility] Back [employer] 10/19/2022 [id number] / [id number] / Slnt Dura Duraseal Pg Trilysine Amine 5 Implanted:Qty: 1 on 05/23/2021 by Esau Rose MD at [facility] Back [employer] Erendira [id number] / / [id number] Gntr Nrstm 1.95inx2.19in [employer] Elt - [id number] Implanted:Qty: 1 on 05/23/2021 by Esau Rose MD at [facility] Left: Back [employer] 03/26/2023 [id number] / [id number] / Care Teams Boilermaker Apprentice Relationship Specialty Start Date End Date Tommy King DO PCP - General Internal Medicine 04/23/21
--- OUTSIDE RECORDS SUMMARY | 2024-05-31 14:39 | XMS_ITS | Clinical Summary ---
Author Organization [facility] Address [address] [place] [id number] Care Team Providers Care Systems Software Engineer Name Role Phone Tommy King DO Primary Care Provider [phone] Allergies Active Allergy Reactions Criticality Noted Date Comments Meperidine Penicillins Anaphylaxis High Medications budesonide-form oterol (SYMBICORT) 160-4.5 mcg/actuation inhaler inhale 2 puff by inhalation route 2 times every day in the morning and evening 0 Inhaler 0 6 Active aspirin (ASPIR-81) 81 mg tablet take 1 Tablet by oral route every day 0 0 6 Active lovastatin (MEVACOR) 40 mg tablet take 1 Tablet by oral route every day with the evening meal 0 0 6 Active sertraline (ZOLOFT) 100 mg tablet take 1 tablet by oral route every day 0 0 6 Active morphine (MSIR) 15 mg tablet take 1 tablet by oral route every 2 hours as needed 0 0 6 Active omeprazole (PriLOSEC) 40 mg capsule take 1 capsule by oral route every day before a meal 0 0 6 Active solifenacin (VESICARE) 5 mg tablet take 1 tablet by oral route every day 0 0 6 Active cyclobenzaprine (FLEXERIL) 5 mg tablet Take 5 mg by mouth 2 (two) times a day as needed 1 Active gabapentin (NEURONTIN) 300 mg capsule TAKE 1 CAPSULE BY MOUTH FOUR TIMES DAILY 1 Active metoprolol XL (TOPROL-XL) 25 mg extended release tablet Take 25 mg by mouth daily 1 Active Spiriva with HandiHaler 18 mcg per inhalation capsule USE 2 INHALATIONS FROM 1 CAPSULE VIA INHALER ONCE DAILY. 1 Active albuterol HFA (PROVENTIL HFA,VENTOLIN HFA,PROAIR HFA) 90 mcg/actuation inhaler Inhale 2 puffs every 6 (six) hours as needed for wheezing Active hydroCHLOROthia zide (HYDRODIURIL) 12.5 mg tablet Take 12.5 mg by mouth daily Active loratadine (CLARITIN) 10 mg tablet Take 10 mg by mouth daily Active fluticasone propionate (FLONASE) 50 mcg/actuation nasal spray Administer 2 sprays into each nostril daily Active ketorolac (ACULAR) 0.5 % ophthalmic solution INSTILL 1 DROP IN THE RIGHT EYE THREE TIMES DAILY FOR 5 DAYS 1 Active nystatin 100,000 unit/mL suspension 1 Active Active Problems No known active problems Surgical History Surgery Date Site/Laterality Comments APPENDECTOMY HYSTERECTOMY Medical History Medical History Date Comments COPD (chronic obstructive pulmonary disease) (HC C) Esophageal abnormality Hyperlipidemia Urinary incontinence Allergic rhinitis Hypertension GERD (gastroesophageal reflux disease) HL (hearing loss) Tinnitus Family History Medical History Relation Name Comments Aneurysm Father Stroke Father Stroke; Cause o f : Stroke Other Mother natural causes; Cause of : natural causes Cancer Sister 2 Cancer, unknown ; Cause of : Cancer, unknown Breast cancer Sister 3 Cancer, breast ; Relation Name Status Comments Father (Age 58) Mother (Age 72) Sister 1 (Age 62) Sister 2 Sister 3 Social History Tobacco Use Types Packs/Day Years Used Date Smoking Tobacco: Heavy Smoker Smokeless Tobacco: Never Comments:Smoking History Pac ks/day: 1 Packs Alcohol Use Standard Drinks/Week Comments Yes 0 (1 standard drink = 0.6 oz pur e alcohol) AUDIT-C Answer Date Recorded Q1: How often do you have a drink containing alc ohol? 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 Gender Identity Not on file Sexual Orientation Not on file Occupation Industry Job Start Date Job End Date on SSD Not on file Not on file Not on file Obstetrics History Last Filed Vital Signs Vital Sign Reading Time Taken Comments Blood Pressure 126/66 09/11/2020 2:59 PM CDT Pulse 75 09/11/2020 2:59 PM CDT Temperature 35.9 ??C (96.6 ??F) 09/11/2020 2:59 PM CD T Respiratory Rate 17 10/05/2020 8:12 AM CDT Oxygen Saturation - - Inhaled Oxygen Concentration - - Weight 57.2 kg (126 lb) 10/05/2020 8:12 AM CDT Height 167.6 cm (5' 6 ) 10/05/2020 8:12 AM CDT Body Mass Index 20.34 10/05/2020 8:12 AM CDT Plan of Treatment Not on file Insurance MEDICARE IDLA MEDICARE IDLA MEDICARE Care Teams Systems Software Engineer Relationship Specialty Start Date End Date Tommy King DO PCP - General Internal Medicine 09/11/20
--- OUTSIDE RECORDS SUMMARY | 2024-05-31 14:39 | XMS_ITS | Clinical Summary ---
Author Organization [facility] Address [address] [place] [address] Care Team Providers Care Pci Security Consultant Name Role Phone Tommy King DO Primary Care Provider [phone] Source Comments [facility],non-owned Affiliates and Associated Physician Practices is amultiple site organization consisting of ambulatory clinics and hospital sitesin [place], [place], [place] and [place]. This disclosure is being madepursuant to the Care Everywhere program and may not contain all information available regarding this patient. Last updated 18.[facility] Allergies Active Allergy Reactions Criticality Noted [...] fluticasone propionate (FLONASE) 50 MCG/ACT nasal spray Avenel 2 sprays into the nose once daily [...] 81 mg by mouth once daily Active Oulcdhywislyabg-LO-LS -APAP (ROBITUSSIN COLD/COUGH/FLU PO) Take 13.5 mg by mouth Active clotrimazole-betameth asone (LOTRISONE) 1-0.05 % cream APPLY TOPICALLY TO THE AFFECTED AREA TWICE DAILY 04/24/2021 Active potassium citrate (UROCIT K 10) 10 MEQ (1080 MG) tablet 06/10/2021 Active doxycycline monohydrate 100 MG tablet TAKE 1 TABLET BY MOUTH DAILY FOR 10 DAYS 05/06/2021 Active uqkekjgu-sqqqfzmjz-qb xameth (MAXITROL) ophthalmic suspension 07/30/2021 Act amadeo [...] ST Respiratory Rate 18 05/23/2021 12:51 PM DIRECTOR OF SECURITY Oxygen Saturation 91% 08/05/2021 9:59 AM CDT Inhaled Oxygen Concentration - - Weight 56.7 kg (125 lb) 08/05/2021 9:59 AM CDT Height 167.6 cm (5' 6 ) 08/05/2021 9:59 AM CDT Body Mass Index 20.18 08/05/2021 9:59 AM CDT Plan of Treatment Health Maintenance Due Date Last Done Comments BONE DENSITY TESTING 1955 COLOGUARD (AGES 45-75) - COLON CA SCREENING 1953 COLON MONITORING 1953 COLONOSCOPY - COLON CA SCREENING 1953 CT COLONOGRAPHY - COLON CA SCREENING 1953 Colorectal Cancer Screening 1953 FIT - COLON CA SCREENING 1953 FLEX SIG - COLON CA SCREENING 1953 MAMMOGRAM 1955 MEDICARE AWV ? 12 MONTHS 1953 HEPATITIS C SCREENING 07/20/1971 DTAP/TDAP/TD VACCINES (1 - Tdap) 1972 PNEUMOCOCCAL VACCINE 50+ (1 of 2 - PCV) 1972 ZOSTER VACCINE (1 of 2) 07/25/2003 COVID-19 VACCINE (3 - season) 2024 02/28/2021, 07/09/2020 INFLUENZA VACCINE (#1) 2024 , 01/06/2020, 01/13/2018, Additional history exists DEPRESSION SCREENING 05/04/2024 Respiratory Syncytial Virus (RSV) Vaccine Pt: or over 60 yrs (1 - 1-dose 75+ series) 2028 HEPATITIS B VACCINE Aged Out No longe r eligible based on patient's age to complete this topic HIB VACCINE Aged Out No longer eligi ble based on patient's age to complete this topic HPV VACCINE Aged Out No longer eligi ble based on patient's age to complete this topic MENINGOCOCCAL (Group B) VACCINE Aged Out No longer eligible based on patient's age to complete this topic MENINGOCOCCAL VACCINE Aged Out No [place] vin eligible based on patient's age to complete this topic Medical Devices Implanted Type Area Breadman Device Identifier Shelf Expiration Date Model / Serial / Lot Lead Nrstm 60cm Penta 3mm Pdl 16 [employer] - [id number] Implanted:Qty: 1 on 05/23/2021 by Esau Rose MD at [facility] Back [employer] 10/19/2022 [id number] / [id number] / Slnt Dura Duraseal Pg Trilysine Amine 5 Implanted:Qty: 1 on 05/23/2021 by Esau Rose MD at [facility] Back [employer] [place] Erendira [id number] / / [id number] Gntr Nrstm 1.95inx2.19in [employer] Elt - [id number] Implanted:Qty: 1 on 05/23/2021 by Esau Rose MD at [facility] Left: Back [employer] 03/26/2023 [id number] / [id number] / Care Teams Pci Security Consultant Relationship Specialty Start Date End Date Tommy King DO PCP - General Internal Medicine 04/23/21
--- OUTSIDE RECORDS SUMMARY | 2024-05-31 14:39 | XMS_ITS | Referral Summary ---
Author Organization [facility] Address [address] [place] [address] Care Team Providers Care Leathersmith Name Role Phone Tommy King DO Primary Care Provider [phone]- [phone] Allergies Active Allergy Reactions Criticality Noted Date [...] Active Active Problems No known active problems Social History Tobacco Use Types Packs/Day Years [...] on file Legal Sex Female 4:04 AM RN TELE Gender Identity Not on file Sexual Orientation Not on file Occupation Industry Job Start Date Job End Date on [employer] Not on file Not on file Not on file Last Filed Vital Signs [...] of Treatment Not on file Insurance MEDICARE [place] MEDICARE [place] MEDICARE [facility] Address: [address] [address] [place] [address] Care Teams Leathersmith Relationship Specialty Start Date End Date Tommy King DO PCP - General Internal Medicine 09/11/20
--- OUTSIDE RECORDS SUMMARY | 2024-05-31 14:39 | XMS_ITS | Data Portability ---
Author Organization [facility] Val[facility] Address [address] [place] [address] Assessment No assessment recorded. Plan of Treatment Reminders Order Date Submit Date Provider Last Modified By Organization Details Last Modified Time Details Appointments None recorded. Lab unlisted lab - vitamin D, 25-hydroxy , total - esoterix 2015 016 JENNIFER [facility], Liz Lozano, [facility] [address], [place], [address], 6 13:11:27 CBC w/ manual diff 2015 016 [email or web address] [facility], Liz Lozano, [address], [place], [address], 6 12:15:19 CMP, serum or plasma 2015 016 [email or web address] [facility], Liz Lozano, [facility] [address], [place], [address], 6 12:15:19 lipid panel, serum 2015 016 [email or web address] [facility], Liz Lozano, [address], [place], [address], 6 12:15:19 unlisted lab - compliance drug analysis, ur 2015 016 JENNIFER [facility], Liz Lozano, [address], [place], [address], 6 15:09:40 HbA1c (hemoglobi n A1c), blood 2015 016 DBA_PATCH_ [id number] [facility], [address], [address], [place], [address], 6 04:31:39 glucose tolerance test, post-75G, 3 specimens 2015 016 DBA_PATCH_ [id number] [facility], [address] [facility] [address], [address], [place], [address], 6 04:31:39 rapid strep group A, throat 2016 017 [facility] In-Office Order, Internal Use Only DO Not Attach Compendium DO Not Attach Compendium, Do Not Delete/merge, [id number] 7 17:07:24 Referral laryngolog y referral - Please call patient to schedule 2015 016 [email or web address] Not available 7 07:56:45 audiologis t referral - Please call patient to schedule 2015 [email or web address] [place] [address], [address], 7 13:04:47 plastic surgeon referral - Rt thigh lump/ PATIENT TO SCHEDULE 2015 016 [email or web address] Not available 7 13:17:06 gastroente rologist referral - P:leae call patient to schedujle 2015 016 [email or web address] Jack Griffin MD, [address] [place], [address], 7 10:10:31 Procedures colonoscop y screening (PROC) 2015 016 DBA_PATCH_ [id number] Not available 6 04:32:07 Surgeries None recorded. Imaging bone density, dual photon absorptiom etry 2015 016 [facility] ([facility]), [address] [place], [address], 6 15:34:00 MAMMO, screening, digital, bilateral 2015 016 DBA_PATCH_ [id number] [facility] ([facility]), [address] [place], [address], 6 04:31:59 MAMMO, screening, bilateral 2015 016 [facility] ([facility]), [address] [place], [address], 7 10:29:25 Medication Orders calcium 600 mg (as carbonate) -vitamin D3 10 mcg (400 unit) capsule 2015 016 DBA_PATCH_ [id number] [facility] #77010, [address], [place], [id number], 6 04:31:45 calcium 600 mg (as carbonate) -vitamin D3 10 mcg (400 unit) capsule 2016 017 [facility] #33236, [address] [facility], [place], [place], [id number], 7 16:54:36 Ventolin HFA 90 mcg/actuat ion aerosol inhaler 2016 017 INTERFACE [facility] #51569, [address] [facility], [place], [place], [id number], 7 16:22:52 Symbicort 160 mcg-4.5 mcg/actuat ion HFA aerosol inhaler 2016 017 [facility], [address], [place], [place], [id number], 7 16:22:51 albuterol sulfate 2.5 mg/3 mL (0.083 %) solution for nebulizati on 2016 017 [facility], [address] , [place], [place], [id number], 7 16:22:52 sertraline 100 mg tablet 2016 017 [facility], [address] [facility], [place], [place], [id number], 7 17:07:30 nystatin 100,000 unit/mL oral suspension 2016 017 INTERFACE [facility] #69068, [address] , [place], [place], [id number], 7 17:07:31 Patient TargetsNo targets recorded. Patient Instructions Encounter Date Encounter Id Patient Instructions Last Modified By Organization Details Last Modified Time 01/21/2016 [id number] deciding about using medicines to quit smoking [facility] Not available 01/22/2016 15:28:08 Quitting Tobacco : Care Instructions [facility] Not available 01/22/2016 15:28:09 chronic obstructive pulmonary disease (COPD): care instructions [facility] Not available 01/22/2016 15:28:08 learning about copd and how to prevent lung infections [facility] Not available 01/22/2016 15:28:08 03/21/2016 [id number] mammogram: about this test [facility] Not available 03/21/2016 17:27:52 deciding about using medicines to quit smoking [facility] Not available 03/21/2016 17:27:52 Quitting Tobacco : Care Instructions [facility] Not available 03/21/2016 17:27:52 chronic obstructive pulmonary disease (COPD): care instructions [facility] Not available 03/21/2016 17:27:52 learning about copd and how to prevent lung infections [facility] Not available 03/21/2016 17:27:52 learning about high blood sugar [facility] Not available 03/21/2016 17:31:23 05/28/2016 [id number] osteoporosis: care instructions [facility] Not available 05/28/2016 16:22:51 deciding about using medicines to quit smoking [email or web address] Not available 05/28/2016 16:22:51 Quitting Tobacco : Care Instructions jhsieh Not available 05/28/2016 16:22:51 chronic obstructive pulmonary disease (COPD): care instructions jhsieh Not available 05/28/2016 16:22:51 learning about copd and how to prevent lung infections jhsieh Not available 05/28/2016 16:22:51 07/01/2016 [id number] deciding about using medicines to quit smoking [facility] Not available 07/02/2016 09:50:36 Quitting Tobacco : Care Instructions [facility] Not available 07/02/2016 09:50:36 chronic obstructive pulmonary disease (COPD): care instructions [facility] Not available 07/02/2016 09:50:36 learning about copd and how to prevent lung infections [facility] Not available 07/02/2016 09:50:36 11/24/2016 [id number] deciding about using medicines to quit smoking [email or web address] Not available 11/25/2016 11:07:05 Quitting Tobacco : Care Instructions [email or web address] Not available 11/25/2016 11:07:05 chronic obstructive pulmonary disease (COPD): care instructions [email or web address] Not available 11/25/2016 11:07:05 learning about copd and how to prevent lung infections [email or web address] Not available 11/25/2016 11:07:05 Reason for Referral Plastic Surgeon Referral for Mass of skin Right thigh lump. 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 Referral for Hea ring disorder Please call patient to schedule Referring Physician: Milena Dos Santos [facility], Encounter Date: 03/21/2016 Results Created Date Observation Date Name Description Value Unit Range Abnormal Flag Note LastModifiedBy Organization Detail LastModifiedTime 11/25/19 17 11/24/2016 rapid strep group A, throa t Strep negati ve Not Available In-Office Order Internal Use Only DO Not Attach Compendium DO Not Attach Compendium, Do Not Delete/merge, [id number] 11/24/2016 16:23:51 01/21/20 16 01/26/2016 drug scree n, urine summary FINAL ===== ===== ===== ===== ===== ===== ===== ===== ===== ===== ===== ===== ===== === TOXAS SURE COMP DRUG YADIRA SIS,U R ===== ===== ===== ===== ===== ===== ===== ===== ===== ===== ===== ===== ===== === TEST RESUL T FLAG UNITS DRUG PRESE NT CARBO XY-TH C 26 NG/MG CREAT CARBO XY-TH C IS A METAB OLITE OF TETRA HYDRO CANNA BINOL (THC) . SOURC E OF THC IS MOST COMMO NLY ILLIC IT, BUT THC IS ALSO PRESE NT IN A SCHED ULED PRESC RIPTI ON MEDIC ATION . MORPH INE [address]13 NG/MG CREAT POTEN TIAL SOURC ES OF LARGE AMOUN TS OF MORPH INE IN THE ABSEN CE OF CODEI NE INCLU DE ADMIN ISTRA TION OF MORPH INE OR USE OF HEROI N. HYDRO MORPH ONE 294 NG/MG CREAT HYDRO MORPH ONE MAY BE PRESE NT A METAB OLITE OF MORPH INE; MAURILIO NTRAT IONS OF HYDRO MORPH ONE RAREL Y EXCEE D 5% OF THE MORPH INE MAURILIO NTRAT ION WHEN THIS IS THE SOURC E OF HYDRO MORPH ONE. CARIS [place] OL PRESE NT MEPRO BAMAT E PRESE NT SOURC E OF CARIS [place] OL IS A SCHED ULED PRESC RIPTI ON MEDIC ATION . MEPRO BAMAT E IS AN EXPEC MINGO METAB OLITE OF CARIS [place] OL. SERTR LAYA PRESE NT DESME THYLS ERTRA LINE PRESE NT DESME THYLS ERTRA LINE IS AN EXPEC MINGO METAB OLITE OF SERTR LAYA . PROME THAZI NE PRESE NT DEXTR OMETH ORPHA N PRESE NT DEXTR ORPHA N/LEV ORPHA NOL PRESE NT DEXTR ORPHA N IS AN EXPEC MINGO METAB OLITE OF DEXTR OMETH ORPHA N, AN OVER- THE-C OUNTE R OR PRESC RIPTI ON COUGH SUPPR ESSAN T. DEXTR ORPHA N CANNO T BE DISTI NGUIS HED FROM THE SCHED ULED PRESC RIPTI ON MEDIC ATION LEVOR PHANO L BY THE METHO D USED FOR YADIRA SIS. GUAIF ENESI N PRESE NT GUAIF ENESI N MAY BE ADMIN ISTER ED AN OVER- THE-C OUNTE R OR PRESC RIPTI ON DRUG; IT MAY ALSO BE PRESE NT A BREAK DOWN PRODU CT OF METHO CARBA MOL. ===== ===== ===== ===== ===== ===== ===== ===== ===== ===== ===== ===== ===== === TEST RESUL T FLAG UNITS REF RANGE CREAT ININE 31 MG/DL >=20 ===== ===== ===== ===== ===== ===== ===== ===== ===== ===== ===== ===== ===== === DECLA RED MEDIC ATION S: MEDIC ATION LIST WAS NOT PROVI DED. ===== ===== ===== ===== ===== ===== ===== ===== ===== ===== ===== ===== ===== === FOR CLINI TAYLOR CONSU LTATI ON, PLEAS E CALL [phone]. ===== ===== ===== ===== ===== ===== ===== ===== ===== ===== ===== ===== ===== === Not Available [facility] [address], [place], [address], 01/26/2016 15:09:40 01/21/20 16 01/26/2016 drug scree n, urine pdf . Not Available [facility] [address], [place], [address], 01/26/2016 15:09:40 02/04/20 16 02/05/2016 CBC w/ manua l diff WBC 5.7 x10e3 /uL 3.4-10 .8 Not Available [facility] ([facility]) [address] [facility], [place], [address], 02/07/2016 13:11:25 02/04/20 16 02/05/2016 CBC w/ manua l diff RBC 4.19 x10e6 /uL 3.77-5 .28 Not Available [facility] ([facility]) [address] [facility], [place], [address], 02/07/2016 13:11:25 02/04/20 16 02/05/2016 CBC w/ manua l diff hemoglobin 12.7 g/dL 11.1-1 5.9 Not Available [facility] ([facility]) [address] [facility], [place], [address], 02/07/2016 13:11:25 02/04/20 16 02/05/2016 CBC w/ manua l diff hematocrit 38.8 % 34.0-4 6.6 Not Available [facility] ([facility]) [address] [place], [address], 02/07/2016 13:11:25 02/04/20 16 02/05/2016 CBC w/ manua l diff MCV 93 fL 79-97 Not Available [facility] ([facility]) [address] [place], [address], 02/07/2016 13:11:25 02/04/20 16 02/05/2016 CBC w/ manua l diff MCH 30.3 pg 26.6-3 3.0 Not Available [facility] ([facility]) [address] [place], [address], 02/07/2016 13:11:25 02/04/20 16 02/05/2016 CBC w/ manua l diff MCHC 32.7 g/dL 31.5-3 5.7 Not Available [facility] ([facility]) [address] [facility], [place], [address], 02/07/2016 13:11:25 02/04/20 16 02/05/2016 CBC w/ manua l diff RDW 14.2 % 12.3-1 5.4 Not Available [facility] ([facility]) [address] [place], [address], 02/07/2016 13:11:25 02/04/20 16 02/05/2016 CBC w/ manua l diff platelets 148 x10e3 /uL 150-37 9 below low normal Not Available [facility] ([facility]) [address] [place], [address], 02/07/2016 13:11:25 02/04/20 16 02/05/2016 CBC w/ manua l diff neutrophils 75 % Not Available [facility] ([facility]) [address] [place], [address], 02/07/2016 13:11:25 02/04/20 16 02/05/2016 CBC w/ manua l diff lymphs 16 % Not Available [facility] ([facility]) [address] [place], [address], 02/07/2016 13:11:25 02/04/20 16 02/05/2016 CBC w/ manua l diff monocytes 8 % Not Available [facility] ([facility]) [address] [place], [address], 02/07/2016 13:11:25 02/04/20 16 02/05/2016 CBC w/ manua l diff eos 1 % Not Available [facility] ([facility]) [address] [place], [address], 02/07/2016 13:11:25 02/04/20 16 02/05/2016 CBC w/ manua l diff basos 0 % Not Available [facility] ([facility]) [address] [place], [address], 02/07/2016 13:11:25 02/04/20 16 02/05/2016 CBC w/ manua l diff immature cells PRACTICE ADMINISTRATOR Not Available [facility] ([facility]) [address] [place], [address], 02/07/2016 13:11:25 02/04/20 16 02/05/2016 CBC w/ manua l diff neutrophils absolute 4.3 x10e3 /uL 1.4-7. 0 Not Available [facility] ([facility]) [address] [place], [address], 02/07/2016 13:11:25 02/04/20 16 02/05/2016 CBC w/ manua l diff lymphs (absolute) 0.9 x10e3 /uL 0.7-3. 1 Not Available [facility] ([facility]) [address] [place], [address], 02/07/2016 13:11:25 02/04/20 16 02/05/2016 CBC w/ manua l diff monocytes(ab solute) 0.5 x10e3 /uL 0.1-0. 9 Not Available [facility] ([facility]) [facility] [place], [address], 02/07/2016 13:11:25 02/04/20 16 02/05/2016 CBC w/ manua l diff eos (absolute value) 0.1 x10e3 /uL 0.0-0. 4 Not Available [facility] ([facility]) [address] [facility], [place], [address], 02/07/2016 13:11:25 02/04/20 16 02/05/2016 CBC w/ manua l diff baso(absolut e) 0.0 x10e3 /uL 0.0-0. 2 Not Available [facility] ([facility]) [address] [facility], [place], [address], 02/07/2016 13:11:25 02/04/20 16 02/05/2016 CBC w/ manua l diff NRBC PRACTICE ADMINISTRATOR Not Available [facility] ([facility]) [address] [facility], [place], [address], 02/07/2016 13:11:25 02/04/20 16 02/05/2016 CBC w/ manua l diff differential comment PRACTICE ADMINISTRATOR Not Available [facility] ([facility]) [address] [facility], [place], [address], 02/07/2016 13:11:25 02/04/20 16 02/05/2016 CBC w/ manua l diff RBC comment RBC'S APPEAR NORMAL . normal Not Available [facility] ([facility]) [address] [facility], [place], [address], 02/07/2016 13:11:25 02/04/20 16 02/05/2016 CBC w/ manua l diff platelet comment ADEQUA TE adequa te Not Available [facility] ([facility]) [address] [facility], [place], [address], 02/07/2016 13:11:25 02/04/20 16 02/05/2016 CMP, serum or plasm a glucose, serum 115 mg/dL 65-99 above high normal Not Available [facility] ([facility]) [address] [facility], [place], [address], 02/07/2016 13:11:26 02/04/20 16 02/05/2016 CMP, serum or plasm a hemoglobin A1C 5.9 % 4.8-5. 6 above high normal PRE-D IABET ES: 5.7 - 6.4 DIABE ROSE: >6.4 GLYCE ARON CONTR OL FOR ADULT S WITH DIABE ROSE: <7.0 Not Available [facility] ([facility]) [address] [facility], [place], [address], 02/07/2016 13:11:26 02/04/20 16 02/05/2016 CMP, serum or plasm a BUN 8 mg/dL 8-27 Not Available [facility] ([facility]) [address] [place], [address], 02/07/2016 13:11:26 02/04/20 16 02/05/2016 CMP, serum or plasm a creatinine, serum 0.85 mg/dL 0.57-1 .00 Not Available [facility] ([facility]) [address] [place], [address], 02/07/2016 13:11:26 02/04/20 16 02/05/2016 CMP, serum or plasm a eGFR if nonafricn AM 74 mL/mi n/1.7 3 >59 Not Available [facility] ([facility]) [address] [place], [address], 02/07/2016 13:11:26 02/04/20 16 02/05/2016 CMP, serum or plasm a eGFR if africn AM 85 mL/mi n/1.7 3 >59 Not Available [facility] ([facility]) [address] [place], [address], 02/07/2016 13:11:26 02/04/20 16 02/05/2016 CMP, serum or plasm a BUN/creatini ne ratio 9 11-26 below low normal Not Available [facility] ([facility]) [address] [place] [address], [address], 02/07/2016 13:11:26 02/04/20 16 02/05/2016 CMP, serum or plasm a sodium, serum 142 mmol/ L 134-14 4 EFF ECTIV E OCTOB ER 2015 THE REFER ENCE INTER NIRMALA FOR SARAH Rodriguez, SERUM WILL BE LYON ING TO: 136 - 144 Not Available [facility] ([facility]) [address] [place], [address], 02/07/2016 13:11:26 02/04/20 16 02/05/2016 CMP, serum or plasm a potassium, serum 4.2 mmol/ L 3.5-5. 2 EFF ECTIV E OCTOB ER 2015 THE REFER ENCE INTER NIRMALA FOR SIENNA SIUM, SERUM WILL BE LYON ING TO: 0 - 7 DAYS 3.7 - 5.2 8 - 30 DAYS 3.7 - 6.4 1 - 6 MONTH S 3.8 - 6.0 7 MONTH S - 1 YEAR 3.8 - 5.3 >1 YEAR 3.5 - 5.2 Not Available [facility] ([facility]) [address] [place], [address], 02/07/2016 13:11:26 02/04/20 16 02/05/2016 CMP, serum or plasm a chloride, serum 103 mmol/ L 97-108 EFF ECTIV E OCTOB ER 2015 THE REFER ENCE INTER NIRMALA FOR CHLOR SAHIL, SERUM WILL BE LYON ING TO: 97 - 106 Not Available [facility] ([facility]) [address] [place], [address], 02/07/2016 13:11:26 02/04/20 16 02/05/2016 CMP, serum or plasm a carbon dioxide, total 24 mmol/ L 18-29 Not Available [facility] ([facility]) [address] [place], [address], 02/07/2016 13:11:26 02/04/20 16 02/05/2016 CMP, serum or plasm a calcium, serum 8.3 mg/dL 8.7-10 .3 below low normal Not Available [facility] ([facility]) [address] [place], [address], 02/07/2016 13:11:26 02/04/20 16 02/05/2016 CMP, serum or plasm a protein, total, serum 6.2 g/dL 6.0-8. 5 Not Available [facility] ([facility]) [address] [facility], [place], [address], 02/07/2016 13:11:26 02/04/20 16 02/05/2016 CMP, serum or plasm a albumin, serum 3.8 g/dL 3.6-4. 8 Not Available [facility] ([facility]) [address] [place], [address], 02/07/2016 13:11:26 02/04/20 16 02/05/2016 CMP, serum or plasm a globulin, total 2.4 g/dL 1.5-4. 5 Not Available [facility] ([facility]) [address] [place], [address], 02/07/2016 13:11:26 02/04/20 16 02/05/2016 CMP, serum or plasm a A/G ratio 1.6 1.1-2. 5 Not Available [facility] ([facility]) [address] [place] [address], [place], [address], 02/07/2016 13:11:26 02/04/20 16 02/05/2016 CMP, serum or plasm a bilirubin, total <0.2 mg/dL 0.0-1. 2 Not Available [facility] ([facility]) [address] [place], [address], 02/07/2016 13:11:26 02/04/20 16 02/05/2016 CMP, serum or plasm a alkaline phosphatase, S 97 IU/L 39-117 Not Available [facility] ([facility]) [address] [place] [address], [address], 02/07/2016 13:11:26 02/04/20 16 02/05/2016 CMP, serum or plasm a AST (SGOT) 15 IU/L 0-40 Not Available [facility] ([facility]) [address] [place] [place], [address], 02/07/2016 13:11:26 02/04/20 16 02/05/2016 CMP, serum or plasm a ALT (SGPT) 15 IU/L 0-32 Not Available [facility] ([facility]) [address] [place], [address], 02/07/2016 13:11:26 02/04/20 16 02/05/2016 lipid panel , serum cholesterol, total 201 mg/dL 100-19 9 above high normal Not Available [facility] ([facility]) [address] [place], [address], 02/07/2016 13:11:26 02/04/20 16 02/05/2016 lipid panel , serum triglyceride s 91 mg/dL 0-149 Not Available [facility] ([facility]) [address] [place], [address], 02/07/2016 13:11:26 02/04/20 16 02/05/2016 lipid panel , serum HDL cholesterol 72 mg/dL >39 ACCOR DING TO ATP-I II GUIDE LINES , HDL-C >59 MG/DL IS CONSI DERED A NEGAT CAMPOS RISK FACTO R FOR CHD. Not Available [facility] ([facility]) [address] [place], [address], 02/07/2016 13:11:26 02/04/20 16 02/05/2016 lipid panel , serum VLDL cholesterol taylor 18 mg/dL 5-40 Not Available [facility] ([facility]) [address] [place], [address], 02/07/2016 13:11:26 02/04/20 16 02/05/2016 lipid panel , serum LDL cholesterol calc 111 mg/dL 0-99 above high normal Not Available [facility] ([facility]) [address] [place], [address], 02/07/2016 13:11:26 02/04/20 16 02/05/2016 lipid panel , serum comment: PRACTICE ADMINISTRATOR Not Available [facility] ([facility]) [address] [place], [address], 02/07/2016 13:11:26 02/04/20 16 02/05/2016 lipid panel , serum LDL/HDL ratio 1.5 ratio _unit s 0.0-3. 2 LDL/H DL RATIO MEN WOMEN 1/2 AVG.R ISK 1.0 1.5 AVG.R ISK 3.6 3.2 2X AVG.R ISK 6.2 5.0 3X AVG.R ISK 8.0 6.1 Not Available [facility] ([facility]) [address] [place], [address], 02/07/2016 13:11:26 02/04/20 16 02/07/2016 vitam in D, 25-hy droxy , total , serum vitamin D, 25-hydroxy, serum 37 NG/mL REFER ENCE RANGE : ALL AGES: TARGE T LEVEL S 30 - 100 Not Available [facility] [address] [place] [address], [address], 02/07/2016 13:11:27 04/02/20 16 04/03/2016 gluco se slava ance test, post- 75G, 3 speci mens glucose, fasting 92 mg/dL 65-99 Not Available [facility] ([facility]) [address] [place], [address], 04/03/2016 06:12:40 04/02/20 16 04/03/2016 gluco se slava ance test, post- 75G, 3 speci mens glucose, 1/2 hour TNP TEST NOT PERFO RMED Not Available [facility] ([facility]) [address] [place], [address], 04/03/2016 06:12:40 04/02/20 16 04/03/2016 gluco se slava ance test, post- 75G, 3 speci mens glucose, 1 hour 189 mg/dL 65-199 Not Available [facility] ([facility]) [address] [place], [address], 04/03/2016 06:12:40 04/02/20 16 04/03/2016 gluco se slava ance test, post- 75G, 3 speci mens glucose, 1 1/2 hour TNP TEST NOT PERFO RMED Not Available [facility] ([facility]) [address] [place], [address], 04/03/2016 06:12:40 04/02/20 16 04/03/2016 gluco se slava ance test, post- 75G, 3 speci mens glucose, 2 hour 97 mg/dL 65-139 Not Available [facility] ([facility]) [address] [place], [address], 04/03/2016 06:12:40 04/02/20 16 04/03/2016 gluco se slava ance test, post- 75G, 3 speci mens glucose, 3 hour TNP TEST NOT PERFO RMED Not Available [facility] ([facility]) [address] [place] [address], [address], 04/03/2016 06:12:40 04/02/20 16 04/03/2016 gluco se slava ance test, post- 75G, 3 speci mens glucose, 4 hour TNP TEST NOT PERFO RMED Not Available [facility] ([facility]) [address] [place], [address], 04/03/2016 06:12:40 04/02/20 16 04/03/2016 gluco se slava ance test, post- 75G, 3 speci mens glucose, 5 hour TNP TEST NOT PERFO RMED Not Available [facility] ([facility]) [address] [place], [address], 04/03/2016 06:12:40 04/02/20 16 04/03/2016 gluco se slava ance test, post- 75G, 3 speci mens glucose, 6 hour TNP TEST NOT PERFO RMED Not Available [facility] ([facility]) [address] [facility], [place], [address], 04/03/2016 06:12:40 04/02/20 16 04/03/2016 HbA1c (hemo globi n A1c), blood hemoglobin A1C 6.0 % 4.8-5. 6 above high normal PRE-D IABET ES: 5.7 - 6.4 DIABE ROSE: >6.4 GLYCE ARON CONTR OL FOR ADULT S WITH DIABE ROSE: <7.0 Not Available [facility] ([facility]) [address] [facility], [place], [address], 04/03/2016 06:12:41 01/29/20 16 01/28/2016 bone densi ty, dual photo n absor ptiom etry No observ ation record ed. [email or web address] [facility] [address] [place], [address], 08/20/2016 09:43:33 02/21/20 16 02/21/2016 US, kidne y No observ ation record ed. [email or web address] Not Available 2015 15:40:26 05/21/19 17 05/21/2016 MRI, brain + brain stem, w/wo contr ast No observ ation record ed. [email or web address] [facility] [address] [place], [address], 07/03/2016 11:40:04 05/21/19 17 05/21/2016 MRI, cervi taylor spine , w/o contr ast No observ ation record ed. [email or web address] [facility] (Imaging) [address] [place], [address], 05/29/2016 07:28:18 06/03/19 17 06/03/2016 MAMMO , scree uziel, bilat eral No observ ation record ed. [email or web address] Not Available 07/02 15:29:02 06/27/19 17 06/27/2016 XR, chest , 2 view No observ ation record ed. [facility] (Imaging) [address] [place], [address], 07/16/2016 13:29:36 07/04/19 17 6 minut e walk test* No observ ation record ed. [facility] ([facility]) [address] [place], [address], 07/04/2016 12:37:03 Result Notes None recorded. Problems Name Problem SNOMED Code Status Onset Date Resolution Date Notes Provider Name and Address Organization Details Recorded Time Chronic obstructive pulmonary disease 26109334 Active Milena Dos Santos MD Attn: Wilmer bullock,[address] [facility], [place], [place], [address] [place] [address] 2, [facility] 6 15:15:05 Tobacco dependence syndrome 31507815 Active Milena Dos Santos MD Attn: Wilmer bullock,[address] [facility], [place], [place], [address] [place] [address] 2, [facility] 6 15:15:05 Chronic low back pain 173964564 Active Milena Dos Santos MD Attn: Wilmer bullock,[address] [facility], [place], [place], [address] [place] [address] 2, [facility] 6 15:15:05 Esophageal dysphagia 02349558 Active Milena Dos Santos MD Attn: Wilmer bullock,[address] [facility], [place], [place], [address] [place] [address] 2, [facility] 6 15:15:05 Dystonia 47273812 Active Milena Dos Santos MD Attn: Wilmer bullock,[address] [place], [place], [address] [place] [address] 2, [facility] 6 15:15:05 Osteoporosis 27482725 Diandra Gonzalez RN null, [facility] 6 15:14:16 Problem Notes None recorded. Procedures Surgical History Date Name Laterality Status Provider Name and Address Organization Details Recorded Time 05/04/19 15 Mammogram screening completed Judd Valentine MA [facility] 01/21/2016 14:25:00 05/04/19 14 Diagnostic colonoscopy completed Judd Valentine MA [facility] 01/21/2016 14:25:00 05/04/19 09 Screening pap smear by phys completed Judd Valentine MA [facility] 01/21/2016 14:25:00 Dilation and Curettage completed Judd Valentine MA [facility] 01/21/2016 14:25:00 Tonsillectomy completed Judd Valentine MA [facility] 01/21/2016 14:25:00 Hysterectomy completed Judd Valentine MA [facility] 01/21/2016 14:25:00 Appendectomy completed Judd Valentine MA [facility] 01/21/2016 14:25:00 Imaging Results Imaging Date Name Status LastModified by Organization Details LastModified Time 01/28/2016 bone density, dual photon absorptiometry completed [email or web address] [facility] [address] [place], [address], 08/20/2016 09:43:33 02/21/2016 US, kidney completed [email or web address] Information no t available 03/12/2016 15:40:26 05/21/2016 MRI, brain + brain stem, w/wo contrast completed [facility] [address] [place], [address], 07/03/2016 11:40:04 05/21/2016 MRI, cervical spine, w/o contrast completed [email or web address] [facility] (Imaging) [address] [place], [address], 05/29/2016 07:28:18 06/03/2016 MAMMO, screening, bilateral completed [email or web address] Information not available 07/14/2016 15:29:02 06/27/2016 XR, chest, 2 view completed [facility] (Imaging) [address] [place], [address], 07/16/2016 13:29:36 07/03/2016 6 minute walk test* completed [facility] ([facility] Sched[facility]) [address], [place], [address], 07/04/2016 12:37:03 Procedure Notes None recorded. Medical Equipment None Reported. Allergies Allergen ID Allergen Name Allergen Category Reaction Reaction Severity Criticality Documentation Date Start Date Code Code System Note Provider Name and Address Organization Details Recorded Time [id number] 2824e Product containin g penicilli n and antibioti c (product) medicatio n Not available Not available Not available 01/21/2016 73566 05 SNOMED Not Available Not Available Not Available [id number] Demerol medicatio n itching Not available Not available 01/21/2016 90406 1 RxNorm Not Available Not Available Not Available Medications Name Sig Start Date Stop Date Status Note LastModified by Organization Details LastModified Time nystatin 100,000 unit/mL oral suspension SWISH AND SWALLOW 5ML BY MOUTH FOUR TIMES DAILY NEEDED active Not Available Not Available No t Available albuterol sulfate 2.5 mg/3 mL (0.083 %) solution for nebulization Inhale 3 mL twice a day by nebulizatio n route as directed for 30 days. 2016 active Not Available Not Available Not Avai lable Morphine Sulfate IR 15 mg tablet Take 1 tablet twice a day by oral route. active Not Available Not Available No t Available promethazine 12.5 mg tablet Take 2 tablets twice a day by oral route. active Not Available Not Available No t Available lovastatin 40 mg tablet Take 1 tablet every day by oral route. active Not Available Not Available No t Available sertraline 100 mg tablet TAKE 1 TABLET BY MOUTH EVERY DAY NEEDED active Not Available Not Available No t Available omeprazole 40 mg capsule,stephan yed release Take 1 capsule every day by oral route. active Not Available Not Available No t Available Morphine Sulfate CR 15 mg tablet,exten ded release Take 1 tablet twice a day by oral route. active Not Available Not Available No t Available aspirin 81 mg tablet Take by oral route. active Not Available Not Available Not Available gabapentin 100 mg capsule Take 2 capsules 3 times a day by oral route. active Not Available Not Available No t Available fluticasone propionate 50 mcg/actuatio n nasal spray,suspen [place] 1 spray every day by intranasal route. active Not Available Not Available No t Available Ventolin HFA 90 mcg/actuatio n aerosol inhaler Inhale 2 puffs every 4 hours by inhalation route as needed for 30 days. 2016 active Not Available Not Available Not Avai lable cyclobenzapr ine 5 mg tablet Take 1 tablet 3 times a day by oral route. active Not Available Not Available No t Available Restasis 0.05 % eye drops in a dropperette INSTILL 1 DROP INTO AFFECTED EYE(S) BY OPHTHALMIC ROUTE EVERY 12 HOURS active Not Available Not Available No t Available Spiriva with HandiHaler 18 mcg and inhalation capsules Inhale 1 capsule every day by inhalation route. active Not Available Not Available No t Available Vesicare 5 mg tablet Take 1 tablet every day by oral route. active Not Available Not Available No t Available Senokot-S active Not Available Not Cindy ilable Not Available ProAir HFA active Not Available Not Av ailable Not Available Symbicort 160 mcg-4.5 mcg/actuatio n HFA aerosol inhaler INHALE 2 PUFFS BY MOUTH TWICE DAILY DIRECTED active Not Available Not Available No t Available calcium 600 mg (as carbonate)-v itamin D3 10 mcg (400 unit) capsule Take 1 capsule twice a day by oral route for 90 days. 2016 active Not Available Not Available Not Avai lable Vitals Date Recorded Body height Heart rate Body weight Oxygen saturation Oxygen saturation in Arterial blood by Pulse oximetry Body mass index (BMI) Body temperature Systolic blood pressure Diastolic blood pressure Provider Name and Address Organization Details Last Updated DateTime 6 169.545 cm 71 /min 23863.3 18082 g 96 % 96 % 18.9 kg/m2 98.3 [degF] 144 mm[Hg] 70 mm[Hg] Judd Valentine [facility] 6 14:25:00 Date Recorded Body height Provider Name an d Address Organization Details Last Updated DateTime 03/21/2016 169.545 cm Judd Valentine [facility] 2015 16:28:09 Date Recorded Body weight Body mass index (BMI) Provider Name and Address Organization Details Last Updated DateTime 03/21/2016 08903.71 g 19.3 kg/m2 Judd Valentine [facility] 03/21/2016 16:28:18 Date Recorded Body temperature Provider Name a nd Address Organization Details Last Updated DateTime 03/21/2016 98.3 [degF] Judd Valentine MA [facility] 03/21/2016 16:29:17 Date Recorded Oxygen saturation Oxygen saturation in Arterial blood by Pulse oximetry Provider Name and Address Organization Details Last Updated DateTime 03/21/2016 95 % 95 % Judd Valentine MA [facility] 03/21/2016 16:29:55 Date Recorded Heart rate Provider Name an d Address Organization Details Last Updated DateTime 03/21/2016 88 /min Judd Valentine MA [facility] 2015 16:29:58 Date Recorded Body height Provider Name an d Address Organization Details Last Updated DateTime 05/28/2016 169.545 cm Judd Valentine MA [facility] 2016 15:48:04 Date Recorded Body weight Body mass index (BMI) Provider Name and Address Organization Details Last Updated DateTime 05/28/2016 47880.48 g 19.8 kg/m2 Judd Valentine MA [facility] 05/28/2016 16:01:09 Date Recorded Body temperature Provider Name a nd Address Organization Details Last Updated DateTime 05/28/2016 97.9 [degF] Judd Valentine MA [facility] 05/28/2016 16:02:07 Date Recorded Oxygen saturation Oxygen saturation in Arterial blood by Pulse oximetry Provider Name and Address Organization Details Last Updated DateTime 05/28/2016 96 % 96 % Judd Valentine MA [facility] 05/28/2016 16:02:33 Date Recorded Heart rate Provider Name an d Address Organization Details Last Updated DateTime 05/28/2016 85 /min Judd Valentine MA [facility] 2016 16:02:36 Date Recorded Body height Provider Name an d Address Organization Details Last Updated DateTime 07/01/2016 169.545 cm Judd Valentine MA [facility] 2016 15:54:26 Date Recorded Body weight Body mass index (BMI) Provider Name and Address Organization Details Last Updated DateTime 07/01/2016 68419.7 g 19.3 kg/m2 Judd Valentine MA [facility] 07/01/2016 17:09:28 Date Recorded Body temperature Provider Name a nd Address Organization Details Last Updated DateTime 07/01/2016 98.1 [degF] Judd Valentine MA [facility] 07/01/2016 17:10:30 Date Recorded Oxygen saturation Oxygen saturation in Arterial blood by Pulse oximetry Provider Name and Address Organization Details Last Updated DateTime 07/01/2016 92 % 92 % Judd Valentine MA [facility] 07/01/2016 17:12:51 Date Recorded Heart rate Provider Name an d Address Organization Details Last Updated DateTime 07/01/2016 80 /min Judd Valentine MA [facility] 2016 17:12:53 Date Recorded Body height Provider Name an d Address Organization Details Last Updated DateTime 11/24/2016 169.545 cm Judd Valentine MA [facility] 2016 14:49:01 Date Recorded Body mass index (BMI) Body weight Provider Name and Address Organization Details Last Updated DateTime 11/24/2016 20.5 kg/m2 29771.29 g Judd Valentine MA [facility] 11/24/2016 15:26:57 Date Recorded Body temperature Provider Name a nd Address Organization Details Last Updated DateTime 11/24/2016 97.7 [degF] Judd Valentine MA [facility] 11/24/2016 15:28:13 Date Recorded Oxygen saturation Oxygen saturation in Arterial blood by Pulse oximetry Provider Name and Address Organization Details Last Updated DateTime 11/24/2016 95 % 95 % Judd Valentine MA [facility] 11/24/2016 15:28:33 Date Recorded Heart rate Provider Name an d Address Organization Details Last Updated DateTime 11/24/2016 90 /min Judd Valentine MA [facility] 2016 15:28:37 Date Recorded Systolic blood pressure Diastolic blood pressure Provider Name and Address Organization Details Last Updated DateTime 03/21/2016 104 mm[Hg] 60 mm[Hg] Judd Valentine MA [facility] 03/21/2016 16:32:19 Date Recorded Systolic blood pressure Diastolic blood pressure Provider Name and Address Organization Details Last Updated DateTime 05/28/2016 126 mm[Hg] 66 mm[Hg] Judd Valentine [facility] 05/28/2016 16:04:46 Date Recorded Systolic blood pressure Diastolic blood pressure Provider Name and Address Organization Details Last Updated DateTime 07/01/2016 124 mm[Hg] 68 mm[Hg] Judd Valentine [facility] 07/01/2016 17:15:45 Date Recorded Systolic blood pressure Diastolic blood pressure Provider Name and Address Organization Details Last Updated DateTime 11/24/2016 130 mm[Hg] 70 mm[Hg] Judd Valentine [facility] 11/24/2016 15:30:39 Social History Question Answer Notes LastModified by Organizat ion Details LastModified Time What Is Your Level Of Alcohol Consumption? Moderate Rum & Coke -- Weekends [email or web address] Information not available 01/21/2016 Sex: Unknown Functional Status None recorded. Mental Status None recorded. Family History Relationship Description Onset Age of this Age Resolved Age Notes LastModified by Organization Details LastModified Time Father Alcohol abuse [email or web address] Not available 01/20 14:25:00 Father Cerebrovascu lar accident [email or web address] Not available 14:25:00 Sister Alcohol abuse [email or web address] Not available 01/20 14:25:00 Sister Suspected breast cancer [email or web address] Not available 01/20 14:25:00 Notes:Colon Cancer and Ovari an Cancer (sister) Medical History Condition Response Muscle, Joint, or Bone Problems Y High Cholesterol Y Acid Reflux (GERD) Y Kidney or Bladder Problems Y Osteoporosis Y COPD Y Allergies Y Gynecological HistoryNo gynecological history recorded. Obstetrics History GPAL:G 0 P 0 0 0 0 Immunizations Vaccine Type Date Status Note Provider Nam e and Address Organization Details Recorded Time COVID-19 vaccine, vector-nr, rS-Ad26, PF, 0.5 mL 07/09/2020 completed [facility] 11/07/2020 16:13:26 pneumococcal, unspecified formulation 05/04/2005 completed [facility] 01/21/2016 14:25:00 Past Encounters Encounter ID Performer Location Encounter Start Date Encounter Closed Date Diagnosis/Indication Diagnosis SNOMED-CT Code Diagnosis ICD10 Code Diagnosis Note [id number] [facility] (Adult Med) [address] [place] [id number] 01/21/2016 13:44:23 01/21/2016 18:02:47 Chronic obstructive pulmonary disease 62308292 J44.9 Tobacco de pendence syndrome 43107357 F17.290 Chronic low back pain 27 4652286 M54.5 Esophageal dysphagia 408 86199 R13.19 Adult heal th examination 483605971 Z00.00 Screening for osteoporosis 896184377 Z13.820 Dystonia 18251817 G24.9 [id number] MD [facility] Col[facility] (Adult Med) [address] [place] [address] [id number] 03/21/2016 15:52:50 03/21/2016 17:46:52 Chronic obstructive pulmonary disease 67352554 J44.9 Tobacco de pendence syndrome 07499528 F17.290 Osteopenia 218889551 M85 .9 Mass of skin 892062242 R 22.9 Screening for malignant neoplasm of colon 297999264 Z12.11 Hearing disorder 7155542 05 H91.93 Screening mammography 24 252326 Z12.31 Hyperglycemia 21332813 R 73.9 [id number] MD [facility] Col[facility] (Adult Med) [address] [place] [address] [id number] 0 05/28/2016 15:44:26 05/28/2016 16:35:56 Chronic obstructive pulmonary disease 91200640 J44.9 Tobacco de pendence syndrome 93465186 F17.290 Dystonia 28807003 G24.9 She has been seen by a neurologis t on the rgular basis. Chronic low back pain 27 2886892 M54.5 Esophageal dysphagia 408 13635 R13.19 She had upper EGD scopic ex. by a GI specialist and was dilated and recently had unremarkab le colonoscop y ex by GI specialist as well. Osteoporosis 30105161 M8 1.0 Osteopenia 564408434 M85 .9 [id number] MD [facility] Col[facility]res (Adult Med) [address] [place] [address] [id number] 07/01/2016 15:40:48 07/01/2016 18:04:54 Chronic obstructive pulmonary disease 74163590 J44.9 Will have nurse arrange the 6 minutes walking test to see if she is qualified for the home oxygen, Jennifer won't give such choice on the computer. Tobacco de pendence syndrome 16038727 F17.290 She is on the nicotine patch for quitting cigarettes . [id number] Milena Dos Santos MD [facility] (Adult Med) [address] [place] [address] 11/24/2016 14:30:40 11/24/2016 17:09:34 Pharyngitis 935089698 J02.9 Thrash. Chronic ob structive pulmonary disease 90358776 J44.9 Will have nurse arrange the 6 minutes walking test to see if she is qualified for the home oxygen, Jennifer won't give such choice on the computer. Tobacco de pendence syndrome 29099784 F17.290 She is on the nicotine patch for quitting cigarettes . Multiple joint pain 3567 8005 M25.50 Had been on sertraline . Chronic low back pain 27 8669647 M54.5 Same as sertraline . Lumbar radiculopathy 128 675914 M54.16 Health Concerns Section Related Observation LastModified by Organization Detai ls LastModified Time None Recorded Concern Status LastModified by Organization Details LastModified Time None Recorded Advance Directives Directive None Recorded Payers Encounter Date Sequence Insurance Name Policy Number Policy [place] Covered Member ID [place] Member ID Guarantor Name 01/21/2016 1 [place] M[place]ssa A [place] [id number] Melyssa [place] 01/21/2016 2 [place] Melyssa [place] [id number] Melyssa [place] 03/21/2016 1 [place] A [place] [id number] Melyssa [place] 03/21/2016 2 [place] Melyssa [place] [id number] Melyssa [place] 05/28/2016 1 [place] A [place] [id number] Melyssa [place] 05/28/2016 2 [place] Melyssa [place] [id number] Melyssa [place] 07/01/2016 1 [place] A [place] [id number] Melyssa [place] 07/01/2016 2 [place] Melyssa Mccall [id number] Melyssa Mccall 11/24/2016 1 [place] Melyssa Mccall [id number] Melyssa Mccall Notes Date Note Type Note Provider Name and Address Organization Details Recorded Time 01/21/2016 text/html 1. First encounter. 2. COPD, a cigarettes smoker.3. Chronic lower back pain. goes to pain management with Electric ablation for sciatica. 4. Recently has been treated for pneumonia as out patient, on Prednisone. 5. Had oral thrush for which was treated by ENT specialist with clotrimazole 10 mg 5 times per day and got better. Allergic to Demerol and Penicillin.6. History of dysphagia with repeating upper GI dilation procedures. Milena Dos Santos MD Attn: [address] [place], [address], [facility] 01/21/2016 15:15:32 03/21/2016 text/html She has gone to GI specialist for dilatation of esophageal stricture, her food regurgitaion has resolved and no more aspiration /or pneumonia and has gained weight after the improving appetite and oral intake but still smokes cigarettes. Milena Dos Santos MD Attn: [address] [place], [address], [facility] 03/21/2016 17:39:07 11/24/2016 text/html She is happy abo ut that her ears can hear well again. and she had benign lump removed on her right thigh, had seen GI doctor for her esophageal dysphagia, still smokes cigarettes , using inhalers, chronic throat sore . Allergic to penicillins and demerol. Milena Dos Santos MD Attn: [address] [place], [address], [facility] 11/24/2016 17:07:30 OBGyn Episode No OBEpisode recorded.
--- OUTSIDE RECORDS SUMMARY | 2024-05-31 14:39 | XMS_ITS | Continuity of Care Document ---
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 Name Role Phone Sherif Doyle MD Unavailable Unavailable Allergies, Adverse Reactions, Alerts Substance Reaction Status Criticality PENICILLIN G POTASSIUM Active No In formation MEPERIDINE HCL Active No Informatio n Medications Medication Instructions Dosage Effective Dates (start - stop) Status Comments METHADOSE 5 MGTABLET tk 2 ts qd - Acti ve Lidoderm 5 % (700 mg/patch) Adhesive Patch - Active Miacalcin 200 unit/Actuation Nasal Hendrix Aerosol 1 spray each nostril qd - [...] on Encounter [facility], [address], [id number], [place] tel:[phone] [facility] No Information 6 Vivek Gorman. [address] [place] [address], [id number] , [place]. tel:[phone] Offic/outpt E&m Estab Minor 10 [facility], [address] [address], [place], [place], [address], [place] tel:[phone] [facility] No Information 6 José Luis Sullivan. [address] [facility], [address], [id number] , [place]. tel:[phone] Referring Provider: Nate Ordonez V, [address], [address] . tel:[phone] [facility], [address], [place], [place], [address], [place] tel:[phone] [facility] No Information 6 José Luis Sullivan. [address], [place], [place], [id number] , [place]. tel: [phone] Referring Provider: Nate Ordonez V, [address], [place], [address] . tel:[phone] [facility], [address], [place], [place], [address], [place] tel:[phone] [facility] No Information 6 José Luis Sullivan. [address], [place], [place], [address] , [place]. tel: [phone] Referring Provider: Nate Ordonez V, [address], [place], [address] . tel:[phone] Offic/outpt E&m Estab Low-mod [facility], [address], [place], [address], [place] tel:[phone] [facility] No Information 6 José Luis Sullivan. [address], [address], [place], [place], [address] , [place]. tel:[phone] Referring Provider: Nate Ordonez V, [address], [place], [address] . tel:[phone] Offic/outpt E&m Estab Low-mod [facility], [address], [place], [place], [address], [place] tel:[phone] [facility] No Information 6 José Luis Sullivan. [address], [address], [place], [place], [address] , [place]. tel: [phone] Referring Provider: Nate Ordonez V, [address], [place], [address] . tel:[phone] Offic/outpt E&m Estab Minor 10 [facility], [address], [place], [address], [place] tel:[phone] [facility] No Information May-0 9-200 6 José Luis Sullivan. [address], [address], [place], [address] , [place]. tel:[phone] Referring Provider: Nate Ordonez V, [address], [place], [address] . tel:[phone] [facility], [address], [place], [place], [address], [place] tel:[phone] [facility] No Information May-0 5-200 6 José Luis Sullivan. [address], [place], [address] , [place]. tel:[phone] Referring Provider: Nate Ordonez V, [address], [place], [address] . tel:[phone] [facility], [address], [place], [place], [address], [place] tel:[phone] [facility] No Information May-0 2-200 6 José Luis Sullivan. [address], [address], [place], [place], [address] , [place]. tel:[phone] Referring Provider: Nate Ordonez V, [address], [place], [address] . tel:[phone] [facility], [address], [place], [address], [place] tel:[phone] [facility] No Information Apr-2 8-200 6 Ordonez Nate. [address], [address], [place], [address] , [place]. tel:[phone] Referring Provider: Nate Ordonez V, [address], [place], [address] . tel:[phone] [facility], [address], [place], [place], [address], [place] tel:[phone] [facility] No Information Aug- 5-200 6 José Luis Sullivan. [address], [address], [place], [address] , [place]. tel:[phone] Referring Provider: Nate Ordonez V, [address], [place], [address] . tel:[phone] [facility], [address], [place], [address], [place] tel:[phone] [facility] No Information 6 José Luis Sullivan. [address], [place], [address] , [place]. tel:[phone] Referring Provider: Nate Ordonez V, [address], [place], [address] . tel:[phone] [facility], [address], [place], [address], [place] tel:[phone] [facility] No Information 200 6 José Luis Sullivan. [address], [address], [place], [address] , [place]. tel:[phone] Referring Provider: Nate Ordonez V, [address], [place], [address] . tel:[phone] Offic Cons New/estab Mod-hi 60 [facility], [address], [place], [place], [address], [place] tel:[phone] [facility] No Information 8-200 6 José Luis Sullivan. [address], [facility] [address], [place], [address] , [place]. tel:[phone] Referring Provider: Nicho Goldstein MD B, [address] [place] [place], [address]. tel:[phone] Family History Family Member Type Diagnosis Age At Onset Gen Fam Hx Problem (finding) Cancer Gen Fam Hx Problem (finding) Stroke Payers Payer name Insurance type Covered republican ID Authorstepha jevon(s) BCBS Of [facility] [id number] Social History Type Description Quantity Date Captured [...]
== END 2024-05-31 14:01 | disposition home or self-care (01) ==
PROVIDERS: PCP Family Medicine; Visit Provider Physician Assistant
DX: J44.1 Chronic obstructive pulmonary disease with (acute) exacerbation (principal)
CPT/HCPCS: 71046

== ENCOUNTER 2024-06-13 01:24 | Day surgery (SDC) | payer MEDICARE, MEDICAID, SELFPAY ==
[2024-05-17 13:47] VITALS: BMI 15.5
--- NOTE | 2024-05-26 07:31 | SUR.PREOP ---
Pt called and said she is sick and will not be coming in for her procedure today. She said she will call when she is feeling better to reschedule.
--- OUTSIDE RECORDS SUMMARY | 2024-06-13 01:34 | XMS_ITS | Continuity of Care Document ---
Author Organization [facility] Address [address] [facility] [address] [place] [address] Phone Care Team Providers Care Internal Audit Consultant Name Role Phone Sherif Doyle MD Unavailable Unavailable Allergies, Adverse Reactions, Alerts Substance Reaction Status Criticality PENICILLIN G POTASSIUM Active No In formation MEPERIDINE HCL Active No Informatio n Medications Medication Instructions Dosage Effective Dates (start - stop) Status Comments METHADOSE 5 MGTABLET tk 2 ts qd - Acti ve Lidoderm 5 % (700 mg/patch) Adhesive Patch - Active Keppra 500 mg Tab 1 t po bid - Active Zanaflex 4 mg Tab tk 1 t po tid - Active Aciphex 20 mg Tab tk 1 t po qd - Active NASACORT (unknown strength) 4-8 sprays qd Not Available - Active AMITRIPTYLINE HCL 10MGTABLET tk 1 t qd - Active ONE A DAY VITAMIN TABLET 1 t po qd - Active Miacalcin 200 unit/Actuation Nasal [place] Aerosol 1 spray each nostril qd - Active Procedures Procedure Date Offic/outpt E&m [...] on Encounter [facility], [address], [id number], [place] tel:[phone] [facility] No Information 6 Vivek Gorman. [address] [place] [address], [id number] , [place]. tel:[phone] Offic/outpt E&m Estab Minor 10 [facility], [address] [address], [place], [place], [address], [place] tel:[phone] [facility] No Information 6 José Luis Sullivan. [address] [facility], [address], [id number] , [place]. tel:[phone] Referring Provider: Nate Ordonez V, [address], [address] . tel:[phone] [facility], [address], [place], [place], [address], [place] tel:[phone] [facility] No Information 6 José Luis Sullivan. [address], [place], [place], [address] , [place]. tel: [phone] Referring Provider: Nate Ordonez V, [address], [place], [address] . tel:[phone] [facility], [address], [place], [place], [address], [place] tel:[phone] [facility] No Information 6 José Luis Sullivan. [address], [place], [place], [address] , [place]. tel: [phone] Referring Provider: Nate Ordonez V, [address], [place], [address] . tel:[phone] Offic/outpt E&m Estab Low-mod [facility], [address], [place], [place], [address], [place] tel:[phone] [facility] No Information 6 José Luis Sullivan. [address], [place], [place], [address] , [place]. tel:[phone] Referring Provider: Nate Ordonez V, [address], [place], [address] . tel:[phone] Offic/outpt E&m Estab Low-mod [facility], [address], [place], [place], [address], [place] tel:[phone] [facility] No Information 6 José Luis Sullivan. [address], [place], [place], [address] , [place]. tel: [phone] Referring Provider: Nate Ordonez V, [address], [place], [address] . tel:[phone] Offic/outpt E&m Estab Minor 10 [facility], [address], [place], [place], [address], [place] tel:[phone] [facility] No Information May-0 9-200 6 José Luis Sullivan. [address], [place], [place], [address] , [place]. tel:[phone] Referring Provider: Nate Ordonez V, [address], [place], [address] . tel:[phone] [facility], [address], [place], [place], [address], [place] tel:[phone] [facility] No Information May-0 5-200 6 José Luis Sullivan. [address], [place], [place], [address] , [place]. tel:[phone] Referring Provider: Nate Ordonez V, [address], [place], [address] . tel:[phone] [facility], [address], [place], [place], [address], [place] tel:[phone] [facility] No Information May-0 2-200 6 José Luis Sullivan. [address], [place], [place], [address] , [place]. tel:[phone] Referring Provider: Nate Ordonez V, [address], [place], [address] . tel:[phone] [facility], [address], [place], [place], [address], [place] tel:[phone] [facility] No Information Apr-2 8-200 6 Ordonez Nate. [address], [place], [place], [address] , [place]. tel:[phone] Referring Provider: Nate Ordonez V, [address], [place], [address] . tel:[phone] [facility], [address], [place], [place], [address], [place] tel:[phone] [facility] No Information Aug- 5-200 6 José Luis Sullivan. [address], [place], [place], [address] , [place]. tel:[phone] Referring Provider: Nate Ordonez V, [address], [place], [address] . tel:[phone] [facility], [address], [place], [address], [place] tel:[phone] [facility] No Information 6 José Luis Sullivan. [address], [place], [place], [address] , [place]. tel:[phone] Referring Provider: Nate Ordonez V, [address], [place], [address] . tel:[phone] [facility], [address], [place], [place], [address], [place] tel:[phone] [facility] No Information 200 6 José Luis Sullivan. [address], [place], [place], [address] , [place]. tel:[phone] Referring Provider: Nate Ordonez V, [address], [place], [address] . tel:[phone] Offic Cons New/estab Mod-hi 60 [facility], [address], [place], [place], [address], [place] tel:[phone] [facility] No Information 8-200 6 José Luis Sullivan. [address], [facility] [address], [place], [place], [address] , [place]. tel:[phone] Referring Provider: Nicho Goldstein MD B, [address] [place], [address]. tel:[phone] Family History Family Member Type Diagnosis Age At Onset Gen Fam Hx Problem (finding) Cancer Gen Fam Hx Problem (finding) Stroke Payers Payer name Insurance type Covered alliance party ID Authorstepha jevon(s) BCBS Of [facility] [id number] Social History Type Description Quantity Date Captured [...]
--- OUTSIDE RECORDS SUMMARY | 2024-06-13 01:35 | XMS_ITS | Clinical Summary ---
Author Organization [facility] Address [address] [facility] [place] [address] Care Team Providers Care School Traffic Supervisor Name Role Phone Tommy King DO Primary Care Provider [phone] Source Comments [facility],non-owned Affiliates and Associated Physician Practices is amultiple site organization consisting of ambulatory clinics and hospital sitesin [place], [place], [place] and [place]. This disclosure is being madepursuant to the Care Everywhere program and may not contain all information available regarding this patient. Last updated 18.[facility] Allergies Active Allergy Reactions Criticality Noted Date [...] fluticasone propionate (FLONASE) 50 MCG/ACT nasal spray Bailey 2 sprays into the nose once daily [...] 81 mg by mouth once daily Active Cohtiyfkkitiotg-IS-YM -APAP (ROBITUSSIN COLD/COUGH/FLU PO) Take 13.5 mg by mouth Active clotrimazole-betameth asone (LOTRISONE) 1-0.05 % cream APPLY TOPICALLY TO THE AFFECTED AREA TWICE DAILY 04/24/2021 Active potassium citrate (UROCIT K 10) 10 MEQ (1080 MG) tablet 06/10/2021 Active doxycycline monohydrate 100 MG tablet TAKE 1 TABLET BY MOUTH DAILY FOR 10 DAYS 05/06/2021 Active vpwehdpw-ialaqlkwi-km xameth (MAXITROL) ophthalmic suspension 07/30/2021 Act amadeo [...] 82 08/05/2021 9:59 AM CDT Temperature 36.8 C (98.3 F) 06/12/2021 10:53 AM BLOCK BREAKER Respiratory Rate 18 05/23/2021 12:51 PM BLOCK BREAKER Oxygen Saturation 91% 08/05/2021 9:59 AM CDT [...] [place] SCREENING 1955 MAMMOGRAM 1955 MEDICARE AWV 12 MONTHS 1953 HEPATITIS C SCREENING 07/20/1971 [...] this topic Medical Devices Implanted Type Area Creasing Machine Operator Device Identifier Shelf Expiration Date Model / Serial / Lot Lead Nrstm 60cm Penta 3mm Pdl 16 [facility] - [id number] Implanted:Qty: 1 on 05/23/2021 by Esau Rose MD at [facility] Back [employer] 10/19/2022 [id number] / [id number] / Slnt Dura Duraseal Pg Trilysine Amine 5 Implanted:Qty: 1 on 05/23/2021 by Esau Rose MD at [facility] Back [employer] Erendira [id number] / / [id number] Gntr Nrstm 1.95inx2.19in [employer] Elt - [id number] Implanted:Qty: 1 on 05/23/2021 by Esau Rose MD at [facility] Left: Back [employer] 03/26/2023 [id number] / [id number] / Care Teams School Traffic Supervisor Relationship Specialty Start Date End Date Tommy King DO PCP - General Internal Medicine 04/23/21
--- OUTSIDE RECORDS SUMMARY | 2024-06-13 01:35 | XMS_ITS | Referral Summary ---
Author Organization [facility] Address [address] [place] [address] Care Team Providers Care Non Profit Job Titles Name Role Phone Tommy King DO Primary Care Provider [phone] Allergies Active Allergy Reactions Criticality Noted Date [...] on file Legal Sex Female 4:04 AM MANAGER DEMAND Gender Identity Not on file Sexual Orientation Not on file Occupation Industry Job Start Date Job End Date on [employer] Not on file Not on file Not on file Last Filed Vital Signs Vital Sign Reading Time Taken Comments Blood Pressure 126/66 09/11/2020 2:59 PM CDT Pulse 75 09/11/2020 2:59 PM CDT Temperature 35.9 C (96.6 F) 09/11/2020 2:59 PM CDT Respiratory Rate 17 10/05/2020 8:12 AM CDT Oxygen Saturation - - Inhaled Oxygen Concentration - - Weight 57.2 kg (126 lb) 10/05/2020 8:12 AM CDT Height 167.6 cm (5' 6 ) 10/05/2020 8:12 AM CDT Body Mass Index 20.34 10/05/2020 8:12 AM CDT Plan of Treatment Not on file Insurance MEDICARE IDPA MEDICARE IDPA MEDICARE [facility] Address: [address] [address] [place] [address] Care Teams Non Profit Job Titles Relationship Specialty Start Date End Date Tommy King DO PCP - General Internal Medicine 09/11/20
--- OUTSIDE RECORDS SUMMARY | 2024-06-13 01:35 | XMS_ITS | Patient Health Summary ---
Author Organization [facility] Address [address] [place] [address] Care Team Providers Care Fur Blowing Machine Operator Name Role Phone Tommy King DO Primary Care Provider [phone] Note from [facility],non-owned Affiliates and Associated Physician Practices is amultiple site organization consisting of ambulatory clinics and hospital sitesin [place], [place], [place] and [place]. This disclosure is being madepursuant to the Care Everywhere program and may not contain all information available regarding this patient. Last updated 18.[facility] Allergies * Meperidine(Rash) -Medium Criticality * Penicillins(Anaphylaxis) [...] fluticasone propionate (FLONASE) 50 MCG/ACT nasal spray [place] 2 sprays into the nose once daily [...] 81 mg by mouth once daily * Eiizsgpheidyjea-XO-AZ-APAP (ROBITUSSIN COLD/COUGH/FLU PO) Take 13.5 mg by mouth * clotrimazole-betamethasone (LOTRISONE) 1-0.05 % cream(Started 04/24/2021) APPLY TOPICALLY TO THE AFFECTED AREA TWICE DAILY * potassium citrate (UROCIT K 10) 10 MEQ (1080 MG) tablet(Started 06/10/2021) * doxycycline monohydrate 100 MG tablet(Started 05/06/2021) TAKE 1 TABLET BY MOUTH DAILY FOR 10 DAYS * kelywpyk-agoeughvl-xzazeqgp (MAXITROL) ophthalmic suspension(Started 07/30/2021) Active Problems Problem [...] 36.8 C (98.3 F) 06/12/2021 10:53 AM CERAMICS MACHINE OPERATOR Respiratory Rate 18 05/23/2021 12:51 PM CERAMICS MACHINE OPERATOR Oxygen Saturation 91% 08/05/2021 9:59 AM CDT Inhaled Oxygen Concentration - - Weight 56.7 kg (125 lb) 08/05/2021 9:59 AM CDT Height 167.6 cm (5' 6 ) 08/05/2021 9:59 AM CDT Body Mass Index 20.18 08/05/2021 9:59 AM CDT Medical Devices Implanted Type Area Polysomnographer Device Identifier Shelf Expiration Date Model / Serial / Lot Lead Nrstm 60cm Penta 3mm Pdl 16 [facility] - [id number] Implanted:Qty: 1 on 05/23/2021 by Esau Rose MD at [facility] Back [employer] 10/19/2022 [id number] / [id number] / Slnt Dura Duraseal Pg Trilysine Amine 5 Implanted:Qty: 1 on 05/23/2021 by Esau Rose MD at [facility] Back [employer] Erendira [id number] / / [id number] Gntr Nrstm 1.95inx2.19in [employer] Elt - [id number] Implanted:Qty: 1 on 05/23/2021 by Esau Rose MD at [facility] Left: Back [employer] 03/26/2023 [id number] / [id number] / Procedures * CARDIAC RHYTHM STRIP ORDER(Performed [...] CARDIAC RHYTHM STRIP ORDER (05/27/2021 8:42 PM CERAMICS MACHINE OPERATOR) Narrative 05/27/2021 8:42 PM CERAMICS MACHINE OPERATOR Ordered by an unspecified provider. Scanned Document CARDIAC SERVICES ORD ERABLES * FL BRITTANY SURGERY (05/23/2021 9:00 AM CERAMICS MACHINE OPERATOR) Narrative [facility] - 05/23/2021 3:44 PM CERAMICS MACHINE OPERATOR For details of this study, please see the providers note. Esau Rose MD FLUOROSCOPY MICHELLE ORO [facility] [address] [place] [address] * ETT LINE PERFORMABLE (05/23/2021 8:04 AM CERAMICS MACHINE OPERATOR) Narrative Chanel De La Fuente APRN-CRNA - 05/23/2021 8:04 AM CERAMICS MACHINE OPERATOR Chanel De La Fuente APRN-CRNA 05/23/2021 8:04 AM Endotracheal Tube Placement: Patient Location: OR. Intubation Event Date/Time: 05/23/2021 7:42 AM Procedure: intubation ([id number]). Procedure Section: Sedation: under general anesthesia. Indications for Airway Management: anesthesia Induction: standard IV Patient Position: sniffing Mask Ventilation: easy. Blade Type: Bruno Blade Size: 4 Laryngoscopy View: grade 1 (full cords) Intubation Adjuncts: stylet Tube: endotracheal tube Placement: oral Tube type: cuff - inflated Tube Size (MM): 7 Depth of Insertion (CM): 21 Measured From: gums Cuff volume (mL): 7 Cuff Inflated With: air Number of Attempts: 1. Placement Verified By: direct visualization, bilateral breath sounds, chest auscultation and CO2 monitor Tube secured with: adhesive tape. Difficult Airway? No. Procedure Start Time: 05/23/2021 7:42 AM. Staff Section Anesthesia Provider: Chanel De La Fuente APRN-WENDY, Performed the procedure Additional Comments: oral mucosa unchanged from pre-op exam following DVOI.. Noble Monaco MD GENERAL ANESTHESIA ORDERABLES * EKG 12-LEAD (04/23/2021 1:53 PM CERAMICS MACHINE OPERATOR) Ventricular Rate 73 BPM [facility] Atrial Rate 73 BPM [facility] P-R Interval 152 ms [facility] QRS Duration ms 82 ms [facility] Q-T Interval ms 404 ms [facility] QTC Calculation (Bezet) 445 ms [facility] Calculated P [place] 79 degrees [facility] Calculated R [place] 49 degrees [facility] Calculated T [place] 72 degrees [facility] Interpretation EKG NORMAL SINUS RHYTHM NORMAL ECG NO PREVIOUS ECGS AVAILABLE Confirmed by MD Sindhu, Myron ([id number]) on 04/24/2021 8:11:04 AM [facility] 04/23/2021 1:53 PM CERAMICS MACHINE OPERATOR 04/24/2021 8:11 AM CERAMICS MACHINE OPERATOR Esau Rose MD ECG ORDERABLES [facility] * XR CHEST 2VW (04/23/2021 1:21 PM CERAMICS MACHINE OPERATOR) Anatomical Region Laterality Modality Chest Radiographic Ines ging 04/23/2021 3:02 PM CERAMICS MACHINE OPERATOR Impressions 04/23/2021 3:02 PM CERAMICS MACHINE OPERATOR No acute process. Suspected emphysema. *Reading Radiologist: Maximo Mondragon on 04/23/2021 at 3:02 PM Narrative 04/23/2021 3:02 PM CERAMICS MACHINE OPERATOR CHEST PA AND LATERAL. HISTORY: Encounter for [...] NG ORDERABLES * PTT (04/23/2021 12:50 PM CERAMICS MACHINE OPERATOR) PTT 27.4 23.0 - 38.4 sec 04/23/2021 1:33 PM CERAMICS MACHINE OPERATOR [facility] Blood BLOOD SPECIMEN / Unknown Venipuncture / Unknown 04/23/2021 12:50 PM CERAMICS MACHINE OPERATOR 04/23/2021 1:09 PM CERAMICS MACHINE OPERATOR Narrative [facility] - 04/23/2021 1:33 PM CERAMICS MACHINE OPERATOR Heparin Therapeutic Range for PTT: 69.0 - 110.0 seconds. Esau Rose MD LAB - COAGULATIO N ORDERABLES [facility] [address] [place] [address] * PT-INR (04/23/2021 12:50 PM CERAMICS MACHINE OPERATOR) PT 12.9 12.1 - 14.8 sec 04/23/2021 1:33 PM CERAMICS MACHINE OPERATOR [facility] INR 1.0 0.9 - 1.1 04/23/2021 1:[address] [facility] Blood BLOOD SPECIMEN / Unknown Venipuncture / Unknown 04/23/2021 12:50 PM CERAMICS MACHINE OPERATOR 04/23/2021 1:09 PM CERAMICS MACHINE OPERATOR [facility] - 04/23/2021 1:33 PM CERAMICS MACHINE OPERATOR Conventional Warfarin Anticoagulant Therapy: INR Reference Range: 2.0-3.0 Intensive Warfarin Anticoagulant Therapy: INR Reference Range: 2.5-3.5 Esau Rose MD LAB - COAGULATIO N ORDERABLES [facility] [address] [place], [place] [id number] * CBC WITH DIFFERENTIAL (04/23/2021 12:50 PM CERAMICS MACHINE OPERATOR) WBC 5.5 4.4 - 10.7 x10E9/L 04/23/2021 1:[address] [facility] WBC Corrected 04/23/2021 1:[address] [facility] RBC 4.51 3.80 - 5.20 x10E12/L 04/23/2021 1:[address] [facility] Hemoglobin 13.3 12.0 - 15.6 gm/dL 04/23/2021 1:[address] [facility] Hematocrit 41.0 35.9 - 45.5 % 04/23/2021 1:[address] [facility] MCV 90.9 80.7 - 98.3 fl 04/23/2021 1:[address] [facility] MCH 29.5 26.7 - 34.0 pg 04/23/2021 1:[address] [facility] MCHC 32.4 30.8 - 35.9 gm/dL 04/23/2021 1:[address] [facility] Platelet Count 178 153 - 416 x10E9/L 04/23/2021 1:[address] [facility] RDW-CV 14.1 12.1 - 14.9 % 04/23/2021 1:[address] [facility] MPV 10.0 9.4 - 12.9 fl 04/23/2021 1:[address] [facility] Neutrophils % 67.7 44.0 - 73.0 % 04/23/2021 1:25 PM CERAMICS MACHINE OPERATOR [facility] Lymphocytes % 22.6 20.0 - 43.0 % 04/23/2021 1:25 PM CERAMICS MACHINE OPERATOR [facility] Monocytes % 7.6 5.0 - 13.0 % 04/23/2021 1:25 PM CERAMICS MACHINE OPERATOR [facility] Eosinophils % 1.1 0.0 - 6.0 % 04/23/2021 1:25 PM CERAMICS MACHINE OPERATOR [facility] Basophils % 0.5 0.0 - 2.0 % 04/23/2021 1:25 PM CERAMICS MACHINE OPERATOR [facility] Immature Granulocytes 0.5 0 - 1 % 04/23/2021 1:[address] [facility] Neutrophil Absolute 3.73 2.01 - 7.14 x10E9/L 04/23/2021 1:25 PM CERAMICS MACHINE OPERATOR [facility] Lymphocytes Absolute 1.25 1.07 - 3.94 x10E9/L 04/23/2021 1:25 PM CERAMICS MACHINE OPERATOR [facility] Monocytes Absolute 0.42 0.26 - 1.07 x10E9/L 04/23/2021 1:25 PM CERAMICS MACHINE OPERATOR [facility] Eosinophils Absolute 0.06 0 - 0.47 x10E9/L 04/23/2021 1:[address] [facility] Basophils Absolute 0.03 0 - 0.08 x10E9/L 04/23/2021 1:[address] [facility] Immature Granulocytes Absolute 0.03 0.00 - 0.06 x10E9/L 04/23/2021 1:[address] [facility] nRBC Auto 0 /100 WBC 04/23/2021 1:[address] [facility] Blood BLOOD SPECIMEN / Unknown Venipuncture / Unknown 04/23/2021 12:50 PM CERAMICS MACHINE OPERATOR 04/23/2021 1:09 PM CERAMICS MACHINE OPERATOR Esau Rose MD LAB - HEMATOLOGY ORDERABLES [facility] [address] [place] [address] * (ABNORMAL) BASIC METABOLIC PANEL (CALCIUM TOTAL) (04/23/2021 12:50 PM CERAMICS MACHINE OPERATOR) [facility] Glucose 98 70 - 105 mg/dL 04/23/2021 1:48 PM CERAMICS MACHINE OPERATOR [facility] Sodium 138 136 - 145 mmol/L 04/23/2021 1:48 PM CERAMICS MACHINE OPERATOR [facility] Potassium 3.6 3.5 - 5.1 mmol/L 04/23/2021 1:48 PM CERAMICS MACHINE OPERATOR [facility] Chloride 99 98 - 107 mmol/L 04/23/2021 1:48 PM CERAMICS MACHINE OPERATOR [facility] CO2 27 23 - 31 mmol/L 04/23/2021 1:48 PM CERAMICS MACHINE OPERATOR [facility] Calcium 9.3 8.4 - 10.4 mg/dL 04/23/2021 1:[address] [facility] Anion Gap 12 8 - 18 mmol/L 04/23/2021 1:[address] [facility] BUN 9(L) 9.8 - 20.1 mg/dL 04/23/2021 1:48 PM CERAMICS MACHINE OPERATOR [facility] Creatinine 0.82 0.57 - 1.11 mg/dL 04/23/2021 1:48 PM CERAMICS MACHINE OPERATOR [facility] eGFR by MDRD >60 >60 mL/min/1.7 3m2 04/23/2021 1:[address] [facility] eGFR by MDRD >60 >60 mL/min/1.7 3m2 04/23/2021 1:[address] [facility] Blood BLOOD SPECIMEN / Unknown Venipuncture / Unknown 04/23/2021 12:50 PM CERAMICS MACHINE OPERATOR 04/23/2021 1:09 PM CERAMICS MACHINE OPERATOR Esau Rose MD LAB - CHEMISTRY ORDERABLES [facility] [address] [place] [id number] Care Teams Fur Blowing Machine Operator Relationship Specialty Start Date End Date Tommy King DO PCP - General Internal Medicine 04/23/21
--- OUTSIDE RECORDS SUMMARY | 2024-06-13 01:35 | XMS_ITS | Data Portability ---
Author Organization [facility] SINTIAClaudia Valdes Address [address] [place] [address] Assessment No assessment recorded. Plan of Treatment Reminders Order Date Submit Date Provider Last Modified By Organization Details Last Modified Time Details Appointments None recorded. Lab unlisted lab - vitamin D, 25-hydroxy , total - [facility] 2015 016 JENNIFER [facility], Liz Lozano, [address], [place], [address], 6 13:11:27 CBC w/ manual diff 2015 016 [email or web address] [facility], Liz Lozano, [address], [place], [address], 6 12:15:19 CMP, serum or plasma 2015 016 [email or web address] [facility], Liz Loznao, [facility] [address], [place], [address], 6 12:15:19 lipid panel, serum 2015 016 [email or web address] [facility], Liz Lozano, [address], [place], [address], 6 12:15:19 unlisted lab - compliance drug analysis, ur 2015 016 JENNIFER [facility], Liz Lozano, [address], [place], [address], 6 15:09:40 HbA1c (hemoglobi n A1c), blood 2015 016 DBA_PATCH_ [id number] [facility], [address], [address], [place], [address], 6 04:31:39 glucose tolerance test, post-75G, 3 specimens 2015 016 DBA_PATCH_ [id number] [facility], [address] [facility] [address], [address], [place], [address], 6 04:31:39 rapid strep group A, throat 2016 017 [facility] In-Office Order, Internal Use Only DO Not Attach Compendium DO Not Attach Compendium, Do Not Delete/merge, [id number] 7 17:07:24 Referral laryngolog y referral - Please call patient to schedule 2015 016 [email or web address] Not available 7 07:56:45 audiologis t referral - Please call patient to schedule 2015 [email or web address] [place] [address], [address], 7 13:04:47 plastic surgeon referral - Rt thigh lump/ PATIENT TO SCHEDULE 2015 016 [email or web address] Not available 7 13:17:06 gastroente rologist referral - P:leae call patient to schedujle 2015 016 [email or web address] Jack Griffin MD, [address] [place], [address], 7 10:10:31 Procedures colonoscop y screening (PROC) 2015 016 DBA_PATCH_ [id number] Not available 6 04:32:07 Surgeries None recorded. Imaging bone density, dual photon absorptiom etry 2015 016 [facility] ([facility] Sched[facility]), [address] [place], [address], 6 15:34:00 MAMMO, screening, digital, bilateral 2015 016 DBA_PATCH_ [id number] [facility] (One Call Scheduling), [address] [place], [address], 6 04:31:59 MAMMO, screening, bilateral 2015 016 [facility] (One Call Scheduling), [address] [place], [address], 7 10:29:25 Medication Orders calcium 600 mg (as carbonate) -vitamin D3 10 mcg (400 unit) capsule 2015 016 DBA_PATCH_ [id number] [facility] #[id number], [address], [place], [id number], 6 04:31:45 calcium 600 mg (as carbonate) -vitamin D3 10 mcg (400 unit) capsule 2016 017 [facility] #67494, [address] [facility], [place], [place], [id number], 7 16:54:36 Ventolin HFA 90 mcg/actuat ion aerosol inhaler 2016 017 INTERFACE [facility] #92915, [address] [facility], [place], [place], [id number], 7 16:22:52 Symbicort 160 mcg-4.5 mcg/actuat ion HFA aerosol inhaler 2016 017 [facility]FACE [facility], [address] [facility], [place], [place], [id number], 7 16:22:51 albuterol sulfate 2.5 mg/3 mL (0.083 %) solution for nebulizati on 2016 017 INTERFACE [facility]969[facility], [address] , [place], [place], [id number], 7 16:22:52 sertraline 100 mg tablet 2016 017 [facility], [address] [facility], [place], [place], [id number], 7 17:07:30 nystatin 100,000 unit/mL oral suspension 2016 017 INTERFACE [facility] #02752, [address] , [place], [place], [id number], 7 17:07:31 Patient TargetsNo targets recorded. Patient Instructions Encounter Date Encounter Id Patient Instructions Last Modified By Organization Details Last Modified Time 01/21/2016 [id number] deciding about using medicines to quit [facility] Not available 01/22/2016 15:28:08 Quitting Tobacco : Care Instructions [facility] Not available 01/22/2016 15:28:09 chronic obstructive pulmonary disease (COPD): care instructions [facility] Not available 01/22/2016 15:28:08 learning about copd and how to prevent lung infections [facility] Not available 01/22/2016 15:28:08 03/21/2016 [id number] mammogram: about this test [facility] Not available 03/21/2016 17:27:52 deciding about using medicines to quit smoking [facility] Not available 03/21/2016 17:27:52 Quitting Tobacco : Care Instructions [facility] Not available 03/21/2016 17:27:52 chronic obstructive pulmonary disease (COPD): care instructions [facility] Not available 03/21/2016 17:27:52 learning about copd and how to prevent lung infections [facility] Not available 03/21/2016 17:27:52 learning about high blood sugar [facility] Not available 03/21/2016 17:31:23 05/28/2016 [id number] osteoporosis: care instructions [facility] Not available 05/28/2016 16:22:51 deciding about using medicines to quit smoking [email or web address] Not available 05/28/2016 16:22:51 Quitting Tobacco : Care Instructions [email or web address] Not available 05/28/2016 16:22:51 chronic obstructive pulmonary disease (COPD): care instructions jhsieh Not available 05/28/2016 16:22:51 learning about copd and how to prevent lung infections [email or web address] Not available 05/28/2016 16:22:51 07/01/2016 [id number] deciding about using medicines to quit smoking strice Not available 07/02/2016 09:50:36 Quitting Tobacco : Care Instructions strice Not available 07/02/2016 09:50:36 chronic obstructive pulmonary disease (COPD): care instructions [facility] Not available 07/02/2016 09:50:36 learning about copd and how to prevent lung infections [facility] Not available 07/02/2016 09:50:36 11/24/2016 [id number] deciding about using medicines to quit smoking [email or web address] Not available 11/25/2016 11:07:05 Quitting Tobacco : Care Instructions [email or web address] Not available 11/25/2016 11:07:05 chronic obstructive pulmonary disease (COPD): care instructions [email or web address] Not available 11/25/2016 11:07:05 learning about copd and how to prevent lung infections [email or web address] Not available 11/25/2016 11:07:05 Reason for Referral [...] [facility], Encounter Date: 03/21/2016 Junior 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 [place] [address] NG/MG CREAT POTEN TIAL SOURC ES OF [...] TAYLOR CONSU LTATI ON, PLEAS E CALL [phone]. ===== ===== ===== ===== ===== ===== ===== ===== ===== ===== ===== ===== ===== === Not Available [facility] [address], [place], [address], 01/26/2016 15:09:40 01/21/20 16 01/26/2016 drug scree n, urine pdf . Not Available [facility] [address], [place], [address], 01/26/2016 15:09:40 02/04/20 16 02/05/2016 CBC w/ manua l diff WBC 5.7 x10e3 /uL 3.4-10 .8 Not Available [facility] ([facility]) [address] [facility], [place], [address], 02/07/2016 13:11:25 02/04/20 16 02/05/2016 CBC w/ manua l diff RBC 4.19 x10e6 /uL 3.77-5 .28 Not Available [facility] ([facility]) [address] [facility], [place], [address], 02/07/2016 13:11:25 02/04/20 16 02/05/2016 CBC w/ manua l diff hemoglobin 12.7 g/dL 11.1-1 5.9 Not Available [facility] ([facility]) [address] [facility], [place], [address], 02/07/2016 13:11:25 02/04/20 16 02/05/2016 CBC w/ manua l diff hematocrit 38.8 % 34.0-4 6.6 Not Available [facility] ([facility]) [address] [place], [address], 02/07/2016 13:11:25 02/04/20 16 02/05/2016 CBC w/ manua l diff MCV 93 fL 79-97 Not Available [facility] ([facility]) [address] [place], [address], 02/07/2016 13:11:25 02/04/20 16 02/05/2016 CBC w/ manua l diff MCH 30.3 pg 26.6-3 3.0 Not Available [facility] ([facility]) [address] [place], [address], 02/07/2016 13:11:25 02/04/20 16 02/05/2016 CBC w/ manua l diff MCHC 32.7 g/dL 31.5-3 5.7 Not Available [facility] ([facility]) [address] [facility], [place], [address], 02/07/2016 13:11:25 02/04/20 16 02/05/2016 CBC w/ manua l diff RDW 14.2 % 12.3-1 5.4 Not Available [facility] ([facility]) [address] [place], [address], 02/07/2016 13:11:25 02/04/20 16 02/05/2016 CBC w/ manua l diff platelets 148 x10e3 /uL 150-37 9 below low normal Not Available [facility] ([facility]) [address] [place], [address], 02/07/2016 13:11:25 02/04/20 16 02/05/2016 CBC w/ manua l diff neutrophils 75 % Not Available [facility] ([facility]) [address] [place], [address], 02/07/2016 13:11:25 02/04/20 16 02/05/2016 CBC w/ manua l diff lymphs 16 % Not Available [facility] ([facility]) [address] [place], [address], 02/07/2016 13:11:25 02/04/20 16 02/05/2016 CBC w/ manua l diff monocytes 8 % Not Available [facility] ([facility]) [address] [place], [address], 02/07/2016 13:11:25 02/04/20 16 02/05/2016 CBC w/ manua l diff eos 1 % Not Available [facility] ([facility]) [address] [place], [address], 02/07/2016 13:11:25 02/04/20 16 02/05/2016 CBC w/ manua l diff basos 0 % Not Available [facility] ([facility]) [address] [place], [address], 02/07/2016 13:11:25 02/04/20 16 02/05/2016 CBC w/ manua l diff 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 0 Not Available [facility] ([facility]) [address] [place], [address], 02/07/2016 13:11:25 02/04/20 16 02/05/2016 CBC w/ manua l diff lymphs (absolute) 0.9 x10e3 /uL 0.7-3. 1 Not Available [facility] ([facility]) [address] [place], [address], 02/07/2016 13:11:25 02/04/20 16 02/05/2016 CBC w/ manua l diff monocytes(ab solute) 0.5 x10e3 /uL 0.1-0. 9 Not Available [facility] ([facility]) [facility] [place], [address], 02/07/2016 13:11:25 02/04/20 16 02/05/2016 CBC w/ manua l diff eos (absolute value) 0.1 x10e3 /uL 0.0-0. 4 Not Available [facility] ([facility]) [address] [facility], [place], [address], 02/07/2016 13:11:25 02/04/20 16 02/05/2016 CBC w/ manua l diff baso(absolut e) 0.0 x10e3 /uL 0.0-0. 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 normal Not Available [facility] ([facility]) [address] [facility], [place], [address], 02/07/2016 13:11:25 02/04/20 16 02/05/2016 CBC w/ manua l diff platelet comment ADEQUA TE adequa te Not Available [facility] ([facility]) [address] [facility], [place], [address], 02/07/2016 13:11:25 02/04/20 16 02/05/2016 CMP, serum or plasm a glucose, serum 115 mg/dL 65-99 above high normal Not Available [facility] ([facility]) [address] [facility], [place], [address], 02/07/2016 13:11:26 02/04/20 16 02/05/2016 CMP, serum or plasm a hemoglobin A1C 5.9 % 4.8-5. 6 above high normal PRE-D IABET ES: 5.7 - 6.4 DIABE ROSE: >6.4 GLYCE ARON CONTR OL FOR ADULT S WITH DIABE ROSE: <7.0 Not Available [facility] ([facility]) [address] [facility], [place], [address], 02/07/2016 13:11:26 02/04/20 16 02/05/2016 CMP, serum or plasm a BUN 8 mg/dL 8-27 Not Available [facility] ([facility]) [address] [place], [address], 02/07/2016 13:11:26 02/04/20 16 02/05/2016 CMP, serum or plasm a creatinine, serum 0.85 mg/dL 0.57-1 .00 Not Available [facility] ([facility]) [address] [place], [address], 02/07/2016 13:11:26 02/04/20 16 02/05/2016 CMP, serum or plasm a eGFR if nonafricn AM 74 mL/mi n/1.7 3 >59 Not Available [facility] ([facility]) [address] [place], [address], 02/07/2016 13:11:26 02/04/20 16 02/05/2016 CMP, serum or plasm a eGFR if africn AM 85 mL/mi n/1.7 3 >59 Not Available [facility] ([facility]) [address] [place], [address], 02/07/2016 13:11:26 02/04/20 16 02/05/2016 CMP, serum or plasm a BUN/creatini ne ratio 9 11-26 below low normal Not Available [facility] ([facility]) [address] [place] [address], [address], 02/07/2016 13:11:26 02/04/20 16 02/05/2016 CMP, serum or plasm a sodium, serum 142 mmol/ L 134-14 4 EFF ECTIV E OCTOB ER 2015 THE REFER ENCE INTER NIRMALA FOR SARAH Rodriguez, SERUM WILL BE LYON ING TO: 136 - 144 Not Available [facility] ([facility]) [address] [place], [address], 02/07/2016 13:11:26 02/04/20 16 02/05/2016 CMP, serum [...] YEAR 3.5 - 5.2 Not Available [facility] ([facility]) [address] [place], [address], 02/07/2016 13:11:26 02/04/20 16 02/05/2016 CMP, serum or plasm a chloride, serum 103 mmol/ L 97-108 EFF ECTIV E OCTOB ER 2015 THE REFER ENCE INTER NIRMALA FOR CHLOR SAHIL, SERUM WILL BE LYON ING TO: 97 - 106 Not Available [facility] ([facility]) [address] [place], [address], 02/07/2016 13:11:26 02/04/20 16 02/05/2016 CMP, serum or plasm a carbon dioxide, total 24 mmol/ L 18-29 Not Available [facility] ([facility]) [address] [place], [address], 02/07/2016 13:11:26 02/04/20 16 02/05/2016 CMP, serum or plasm a calcium, serum 8.3 mg/dL 8.7-10 .3 below low normal Not Available [facility] ([facility]) [address] [place], [address], 02/07/2016 13:11:26 02/04/20 16 02/05/2016 CMP, serum or plasm a protein, total, serum 6.2 g/dL 6.0-8. 5 Not Available [facility] ([facility]) [address] [facility], [place], [address], 02/07/2016 13:11:26 02/04/20 16 02/05/2016 CMP, serum or plasm a albumin, serum 3.8 g/dL 3.6-4. 8 Not Available [facility] ([facility]) [address] [place], [address], 02/07/2016 13:11:26 02/04/20 16 02/05/2016 CMP, serum or plasm a globulin, total 2.4 g/dL 1.5-4. 5 Not Available [facility] ([facility]) [address] [place], [address], 02/07/2016 13:11:26 02/04/20 16 02/05/2016 CMP, serum or plasm a A/G ratio 1.6 1.1-2. 5 Not Available [facility] ([facility]) [address] [place] [address], [place], [address], 02/07/2016 13:11:26 02/04/20 16 02/05/2016 CMP, serum or plasm a bilirubin, total <0.2 mg/dL 0.0-1. 2 Not Available [facility] ([facility]) [address] [place], [address], 02/07/2016 13:11:26 02/04/20 16 02/05/2016 CMP, serum or plasm a alkaline phosphatase, S 97 IU/L 39-117 Not Available [facility] ([facility]) [address] [place] [address], [address], 02/07/2016 13:11:26 02/04/20 16 02/05/2016 CMP, serum or plasm a AST (SGOT) 15 IU/L 0-40 Not Available [facility] ([facility]) [address] [facility] [place], [address], 02/07/2016 13:11:26 02/04/20 16 02/05/2016 CMP, serum or plasm a ALT (SGPT) 15 IU/L 0-32 Not Available [facility] ([facility]) [address] [facility] [place], [address], 02/07/2016 13:11:26 02/04/20 16 02/05/2016 lipid panel , serum cholesterol, total 201 mg/dL 100-19 9 above high normal Not Available [facility] ([facility]) [address] [facility] [place], [address], 02/07/2016 13:11:26 02/04/20 16 02/05/2016 lipid panel , serum triglyceride s 91 mg/dL 0-149 Not Available [facility] ([facility]) [address] [place], [address], 02/07/2016 13:11:26 02/04/20 16 02/05/2016 lipid panel , serum HDL cholesterol 72 mg/dL >39 ACCOR DING TO ATP-I II GUIDE LINES , HDL-C >59 MG/DL IS CONSI DERED A NEGAT CAMPOS RISK FACTO R FOR CHD. 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 2 LDL/H DL RATIO MEN WOMEN 1/2 AVG.R ISK 1.0 1.5 AVG.R ISK 3.6 3.2 2X AVG.R ISK 6.2 5.0 3X AVG.R ISK 8.0 6.1 Not Available [facility] ([facility]) [address] [place], [address], 02/07/2016 13:11:26 02/04/20 16 02/07/2016 vitam in D, 25-hy droxy , total , serum vitamin D, 25-hydroxy, serum 37 NG/mL REFER ENCE RANGE : ALL AGES: TARGE T LEVEL S 30 - 100 Not Available [facility] [address] [place] [address], [address], 02/07/2016 13:11:27 04/02/20 16 04/03/2016 gluco se slava ance test, post- 75G, 3 speci mens glucose, fasting 92 mg/dL 65-99 Not Available [facility] ([facility]) [address] [place], [address], 04/03/2016 06:12:40 04/02/20 16 04/03/2016 gluco se slava ance test, post- 75G, 3 speci mens glucose, 1/2 hour TNP TEST NOT PERFO RMED Not Available [facility] ([facility]) [address] [place], [address], 04/03/2016 06:12:40 04/02/20 16 04/03/2016 gluco se slava ance test, post- 75G, 3 speci mens glucose, 1 hour 189 mg/dL 65-199 Not Available [facility] ([facility]) [address] [place], [address], 04/03/2016 06:12:40 04/02/20 16 04/03/2016 gluco se slava ance test, post- 75G, 3 speci mens glucose, 1 1/2 hour TNP TEST NOT PERFO RMED Not Available [facility] ([facility]) [address] [place], [address], 04/03/2016 06:12:40 04/02/20 16 04/03/2016 gluco se slava ance test, post- 75G, 3 speci mens glucose, 2 hour 97 mg/dL 65-139 Not Available [facility] ([facility]) [address] [place], [address], 04/03/2016 06:12:40 04/02/20 16 04/03/2016 gluco se slava ance test, post- 75G, 3 speci mens glucose, 3 hour TNP TEST NOT PERFO RMED Not Available [facility] ([facility]) [address] [place] [address], [address], 04/03/2016 06:12:40 04/02/20 16 04/03/2016 gluco se slava ance test, post- 75G, 3 speci mens glucose, 4 hour TNP TEST NOT PERFO RMED Not Available [facility] ([facility]) [address] [place], [address], 04/03/2016 06:12:40 04/02/20 16 04/03/2016 gluco se slava ance test, post- 75G, 3 speci mens glucose, 5 hour TNP TEST NOT PERFO RMED Not Available [facility] ([facility]) [address] [place], [address], 04/03/2016 06:12:40 04/02/20 16 04/03/2016 gluco se slava ance test, post- 75G, 3 speci mens glucose, 6 hour TNP TEST NOT PERFO RMED Not Available [facility] ([facility]) [address] [facility], [place], [address], 04/03/2016 06:12:40 04/02/20 16 04/03/2016 HbA1c (hemo globi n A1c), blood hemoglobin A1C 6.0 % 4.8-5. 6 above high normal PRE-D IABET ES: 5.7 - 6.4 DIABE ROSE: >6.4 GLYCE ARON CONTR OL FOR ADULT S WITH DIABE ROSE: <7.0 Not Available [facility] ([facility]) [address] [facility], [place], [address], 04/03/2016 06:12:41 01/29/20 16 01/28/2016 bone densi ty, dual photo n absor ptiom etry No observ ation record ed. [email or web address] [facility] [address] [place], [address], 08/20/2016 09:43:33 02/21/20 16 02/21/2016 US, kidne y No observ ation record ed. [email or web address] Not Available 2015 15:40:26 05/21/19 17 05/21/2016 MRI, brain + brain stem, w/wo contr ast No observ ation record ed. [email or web address] [facility] [address] [place], [address], 07/03/2016 11:40:04 05/21/19 17 05/21/2016 MRI, cervi taylor spine , w/o contr ast No observ ation record ed. [email or web address] [facility] (Imaging) [address] [place], [address], 05/29/2016 07:28:18 06/03/19 17 06/03/2016 MAMMO , scree uziel, bilat eral No observ ation record ed. [email or web address] Not Available 07/02 15:29:02 06/27/19 17 06/27/2016 XR, chest , 2 view No observ ation record ed. [facility] (Imaging) [address] [place], [address], 07/16/2016 13:29:36 07/04/19 17 6 minut e walk test* No observ ation record ed. [facility] ([facility] Sched[facility]) [address] [place], [address], 07/04/2016 12:37:03 Result Notes None recorded. Problems Name Problem SNOMED Code Status Onset Date Resolution Date Notes Provider Name and Address Organization Details Recorded Time Chronic obstructive pulmonary disease 05841152 Active Milena Dos Santos MD Attn: Wilmer bullock,[address] [facility], [place], [place], [address] [place] [address] 2, [facility] 6 15:15:05 Tobacco dependence syndrome 49291178 Active Milena Dos Santos MD Attn: Wilmer bullock,[address] [facility], [place], [place], [address] [place] [address] 2, [facility] 6 15:15:05 Chronic low back pain 950581756 Active Milena Dos Santos MD Attn: Wilmer bullock,[address] [facility], [place], [place], [address] [place] [address] 2, [facility] 6 15:15:05 Esophageal dysphagia 58255333 Active Milena Dos Santos MD Attn: Wilmer bullock,[address] [facility], [place], [place], [address] [place] [address] 2, [facility] 6 15:15:05 Dystonia 65789255 Active Milena Dos Santos MD Attn: Wilmer bullock,[address] [place], [place], [address] [place] [address] 2, [facility] 6 15:15:05 Osteoporosis [id number] Diandra Gonzalez RN null, [facility] 6 15:14:16 Problem Notes None recorded. Procedures Surgical History Date Name Laterality Status Provider Name and Address Organization Details Recorded Time 05/04/19 15 Mammogram screening completed Judd Valentine MA [facility] 01/21/2016 14:25:00 05/04/19 14 Diagnostic colonoscopy completed Judd Valentine MA [facility] 01/21/2016 14:25:00 05/04/19 09 Screening pap smear by phys completed Judd Valentine MA [facility] 01/21/2016 14:25:00 Dilation and Curettage completed Judd Valentine MA [facility] 01/21/2016 14:25:00 Tonsillectomy completed Judd Valentine MA [facility] 01/21/2016 14:25:00 Hysterectomy completed Judd Valentine MA [facility] 01/21/2016 14:25:00 Appendectomy completed Judd Valentine MA [facility] 01/21/2016 14:25:00 Imaging Results Imaging Date Name Status LastModified by Organization Details LastModified Time 01/28/2016 bone density, dual photon absorptiometry completed [email or web address] [facility] [address] [place], [address], 08/20/2016 09:43:33 02/21/2016 US, kidney completed [email or web address] Information no t available 03/12/2016 15:40:26 05/21/2016 MRI, brain + brain stem, w/wo contrast completed [facility] [address] [place], [address], 07/03/2016 11:40:04 05/21/2016 MRI, cervical spine, w/o contrast completed [email or web address] [facility] (Imaging) [address] [place], [address], 05/29/2016 07:28:18 06/03/2016 MAMMO, screening, bilateral completed [email or web address] Information not available 07/14/2016 15:29:02 06/27/2016 XR, chest, 2 view completed [facility] (Imaging) [address] [place], [address], 07/16/2016 13:29:36 07/03/2016 6 minute walk test* completed [facility] (One Call Scheduling) [address], [place], [address], 07/04/2016 12:37:03 Procedure Notes None recorded. Medical Equipment None Reported. Allergies Allergen ID Allergen Name Allergen Category Reaction Reaction Severity Criticality Documentation Date Start Date Code Code System Note Provider Name and Address Organization Details Recorded Time 56048 Product containin g penicilli n and antibioti c (product) medicatio n Not available Not available Not available 01/21/2016 42826 05 SNOMED Not Available Not Available Not Available 57359 Demerol medicatio n itching Not available Not available 01/21/2016 54263 1 RxNorm Not Available Not Available Not [...] propionate 50 mcg/actuatio n nasal spray,suspen haleigh Roe 1 spray every day by intranasal route. [...] Updated DateTime 6 169.545 cm 71 /min 92073.3 37111 g 96 % 96 % 18.9 kg/m2 98.3 [degF] 144 mm[Hg] 70 mm[Hg] Judd Valentine MA [facility] 6 14:25:00 Date Recorded Body height Body weight Body mass index (BMI) Body temperature Oxygen saturation Oxygen saturation in Arterial blood by Pulse oximetry Heart rate Systolic blood pressure Diastolic blood pressure Provider Name and Address Organization Details Last Updated DateTime 6 169.545 cm 01547.7 1 g 19.3 kg/m2 98.3 [degF] 95 % 95 % 88 /min 104 mm[Hg] 60 mm[Hg] Judd Valentine MA [facility] 6 16:32:19 Date Recorded Body height Body weight Body mass index (BMI) Body temperature Oxygen saturation Oxygen saturation in Arterial blood by Pulse oximetry Heart rate Systolic blood pressure Diastolic blood pressure Provider Name and Address Organization Details Last Updated DateTime 7 169.545 cm 34755.4 8 g 19.8 kg/m2 97.9 [degF] 96 % 96 % 85 /min 126 mm[Hg] 66 mm[Hg] Judd Valentine [place] [facility] 7 16:04:46 Date Recorded Body height Body weight Body mass index (BMI) Body temperature Oxygen saturation Oxygen saturation in Arterial blood by Pulse oximetry Heart rate Systolic blood pressure Diastolic blood pressure Provider Name and Address Organization Details Last Updated DateTime 7 169.545 cm 30716.7 g 19.3 kg/m2 98.1 [degF] 92 % 92 % 80 /min 124 mm[Hg] 68 mm[Hg] Judd Valentine [place] [facility] 7 17:15:45 Date Recorded Body height Body mass index (BMI) Body weight Body temperature Oxygen saturation Oxygen saturation in Arterial blood by Pulse oximetry Heart rate Systolic blood pressure Diastolic blood pressure Provider Name and Address Organization Details Last Updated DateTime 7 169.545 cm 20.5 kg/m2 59565.2 9 g 97.7 [degF] 95 % 95 % 90 /min 130 mm[Hg] 70 mm[Hg] Judd Valentine [place] [facility] 7 15:30:39 Social History Question Answer Notes LastModified [...] an Cancer (sister) Medical History Condition Response Kidney or Bladder Problems Y COPD Y Muscle, Joint, or Bone Problems Y Acid Reflux (GERD) Y Allergies Y High Cholesterol Y Osteoporosis Y Gynecological HistoryNo gynecological history recorded. Obstetrics History GPAL:G 0 P 0 0 0 0 Immunizations Vaccine Type Date Status Note Provider Nam e and Address Organization Details Recorded Time COVID-19 vaccine, vector-nr, rS-Ad26, PF, 0.5 mL 07/09/2020 completed Nato [place], [place] [facility] 11/07/2020 16:13:26 pneumococcal, unspecified formulation 05/04/2005 completed ROSS [place], [place] [facility] 01/21/2016 14:25:00 Past Encounters Encounter ID Performer Location Encounter Start Date Encounter Closed Date Diagnosis/Indication Diagnosis SNOMED-CT Code Diagnosis ICD10 Code Diagnosis Note [id number] [facility] (Adult Med) [address] [place] [address] 01/21/2016 13:44:23 01/21/2016 18:02:47 Chronic obstructive pulmonary disease 93604777 J44.9 Tobacco de pendence syndrome 96337366 F17.290 Chronic low back pain 27 4938424 M54.5 Esophageal dysphagia 408 33284 R13.19 Adult [facility] th examination 199784984 Z00.00 Screening for osteoporosis 319604289 Z13.820 Dystonia 88624476 G24.9 [id number] MD [facility] (Adult Med) [address] [place] [address] 03/21/2016 15:52:50 03/21/2016 17:46:52 Chronic obstructive pulmonary disease 99185912 J44.9 Tobacco de pendence syndrome 09401343 F17.290 Osteopenia 337651424 M85 .9 Mass of skin 156565156 R 22.9 Screening for malignant neoplasm of colon 215644295 Z12.11 Hearing disorder 4564005 05 H91.93 Screening mammography 24 592989 Z12.31 Hyperglycemia 63096619 R 73.9 [id number] [facility] [address] [place] [address] 05/28/2016 15:44:26 05/28/2016 16:35:56 Chronic obstructive pulmonary disease 68008766 J44.9 Tobacco de pendence syndrome 55188624 F17.290 Dystonia 30684932 G24.9 She has been seen by a neurologis t on the rgular basis. Chronic low back pain 27 4508062 M54.5 Esophageal dysphagia 408 13746 R13.19 She had upper EGD scopic ex. by a GI specialist and was dilated and recently had unremarkab le colonoscop y ex by GI specialist as well. Osteoporosis 61150707 M8 1.0 Osteopenia 874583231 M85 .9 [id number] Milena Dos Santos MD [facility] (Adult Med) [address] [place] [address] 07/01/2016 15:40:48 07/01/2016 18:04:54 Chronic obstructive pulmonary disease 07963496 J44.9 Will have nurse arrange the 6 minutes walking test to see if she is qualified for the home oxygen, Jennifer won't give such choice on the computer. Tobacco de pendence syndrome 75772655 F17.290 She is on the nicotine patch for quitting cigarettes . [id number] Milena Dos Santos MD [facility] (Adult Med) [address] [place] [address] 11/24/2016 14:30:40 11/24/2016 17:09:34 Pharyngitis 860812034 J02.9 Thrash. Chronic ob structive pulmonary disease 31416265 J44.9 Will have nurse arrange the 6 minutes walking test to see if she is qualified for the home oxygen, Jennifer won't give such choice on the computer. Tobacco de pendence syndrome 71745752 F17.290 She is on the nicotine patch for quitting cigarettes . Multiple joint pain 3567 8005 M25.50 Had been on sertraline . Chronic low back pain 27 0621594 M54.5 Same as sertraline . Lumbar radiculopathy 128 834750 M54.16 Health Concerns Section Related Observation LastModified by Organization Detai ls LastModified Time None Recorded Concern Status LastModified by Organization Details LastModified Time None Recorded Advance Directives Directive None Recorded Payers Encounter Date Sequence Insurance Name Policy Number Policy Granados Covered Member ID Granados Member ID Guarantor Name 01/21/2016 1 [place] Melyssa A [place] [id number] Melyssa [place] 01/21/2016 2 [place] [facility] [place]a [place] [id number] M[place]ssa [place] 03/21/2016 1 [place] A [place] [id number] Melyssa Cal 03/21/2016 2 [place] [facility] [place] M[place]ssa [place] [id number] Melyssa [place] 05/28/2016 1 [place] A [place] [id number] Melyssa [place] 05/28/2016 2 [place] [facility] [place] M[place]a [place] [id number] Melyssa Cal 07/01/2016 1 [place] A [place] [id number] Melyssa Cal 07/01/2016 2 [place] [facility] [place] Melyssa [place] [id number] Melyssa Cal 11/24/2016 1 [place] A [place] [id number] Melyssa Cal Notes Date Note Type Note Provider [...] Milena Dos Santos MD Attn: Accounting[address] [place], [address], [facility] 01/21/2016 15:15:32 03/21/2016 text/html She has gone to GI specialist for dilatation of esophageal stricture, her food regurgitaion has resolved and no more aspiration /or pneumonia and has gained weight after the improving appetite and oral intake but still smokes cigarettes. Milena Dos Santos MD Attn: [address] [place], [address], [facility] 03/21/2016 17:39:07 11/24/2016 text/html She is happy abo ut that her ears can hear well again. and she had benign lump removed on her right thigh, had seen GI doctor for her esophageal dysphagia, still smokes cigarettes , using inhalers, chronic throat sore . Allergic to penicillins and demerol. Milena Dos Santos MD Attn: Accounting[address], [place], [address], [facility] 11/24/2016 17:07:30 OBGyn Episode No OBEpisode recorded.
--- OUTSIDE RECORDS SUMMARY | 2024-06-13 01:35 | XMS_ITS | Data Portability ---
Author Organization [facility], Main Office Address [address] [place] [address] Assessment Encounter Date Assessment Date Assessment LastModified by Organization Details LastModified Time 11/20/2022 11/20/2022 This note is dictated and transcribed by [employer]. Machine Sizer variances may occur. Despite proofreading, typographical errors [...] Recorded Time Metatarsalg ia of right foot 5820384691224 00 Active 2022 Shemar Fairchild DPM [address], [place], [address], [facility] 3 16:36:55 Foot callus 535854380 Active 2022 Shemar Fairchild DPM [address], [address], [place], [address], [facility] 3 16:36:59 Hammer toe 835134107 Active 2022 Shemar Fairchild DPM [address], [address], [place], [address], [facility] 3 16:37:19 Problem Notes None recorded. Procedures Surgical History Date Name Laterality Status Provider Name and Address Organization Details Recorded Time Hysterectomy, Partial completed Joycelyn Bean [facility] 11/20/2022 16:57:02 Appendectomy completed Joycelyn Bean [facility] 11/20/2022 16:57:06 Total hysterectomy completed Joycelyn Bean [facility] 11/20/2022 16:57:18 release of trigger finger completed Joycelyn Bean [facility] 11/20/2022 16:57:28 Tonsillectomy completed Joycelyn Bean [facility] 11/20/2022 16:57:34 Imaging Results None recorded. Procedure Notes None recorded. Medical Equipment None Reported. Allergies Allergen ID Allergen Name Allergen Category Reaction Reaction Severity Criticality Documentation Date Start Date Code Code System Note Provider Name and Address Organization Details Recorded Time 82770 Product containin g penicilli n and antibioti c (product) medicatio n Not available Not available Not available 11/20/2022 82348 05 [facility]ED [facility] 16:51:43 50702 meperidin e medicatio n Not available Not available Not available 11/20/2022 6754 RxNorm [facility] 16:51:54 21815 sulfadime thoxine Not available Not available Not available Not available 11/20/2022 79835 Rx[facility] 16:52:05 73717 trimethop rim medicatio n Not available Not available Not available 11/20/2022 16315 Rx[facility] 16:52:18 Medications Name Sig Start Date [...] % 97 % 167.64 cm 16.9 kg/m2 05969.2 g 142 mm[Hg] 78 mm[Hg] Joycelyn HAYNES e[employer]metry [facility] 3 16:19:04 Date Recorded Body height Body mass index (BMI) Body weight Heart rate Respiratory rate Oxygen saturation Oxygen saturation in Arterial blood by Pulse oximetry Systolic blood pressure Diastolic blood pressure Provider Name and Address Organization Details Last Updated DateTime 3 167.64 cm 16.9 kg/m2 92819.2 g 72 /min 14 /min 97 % 97 % 134 mm[Hg] 69 mm[Hg] Joycelyn HAYNES DE [employer] [facility] 3 14:02:12 Social History Question Answer Notes LastModified by Organizat ion Details LastModified Time Tobacco Smoking Status Current Every Day Smoker MAGEN [facility] 11/20/2022 16:56:20 What Is [...] available 11/20/2022 16:55:49 Medical History Condition Response ARTHRITIS Y FIBROMYALGIA Y ALLERGIES/HAYFEVER Y PULMONARY DISEASE Y URINARY/BLADDER/KIDNEY PROBLEMS Y BACK / NECK PROBLEMS Y LUNG DISEASE/DISORDER Y HEARTBURN / REFLUX Y HIGH CHOLESTEROL / HYPERLIPIDEMIA Y Gynecological HistoryNo gynecological history recorded. Obstetrics History GPAL:G 0 P 0 0 0 0 Past Encounters Encounter ID Performer Location Encounter Start Date Encounter Closed Date Diagnosis/Indication Diagnosis SNOMED-CT Code Diagnosis ICD10 Code Diagnosis Note [id number] Shemar Fairchild DPM [facility] [place] [address] [facility] [place] [address] 11/20/2022 16:13:05 11/25/2022 16:43:24 Metatarsalgia of right foot 7601930164 51889 M77.41 sub 3rd metatarsal head, right footas above Foot callus 403419654 L8 4 sub 3rd metatarsal headMildOf floading with metatarsal pad had to functional orthoticse ducated on supportive shoe gearFollow -up in 1 month Hammer toe 692766431 M20 .41 right 2nd 3rd toes mildEducat ed on treatment optionCont inue with conservati ve therapy [id number] Shemar Fairchild DPM [facility] [place] [address], [address] [place] [address] 12/18/2022 13:48:12 12/18/2022 14:26:06 Hammer toe 675544491 M20.41 right 2nd 3rd toes mildpatien t would like to continue with conservati ve therapyrec ommend silicone sleeves and soft high toe box shoe to prevent wounds infectionF ollow-up as needed Foot callus 021913322 L8 4 sub 3rd metatarsal headresolv ed with offloading Metatarsal ella of right foot 4779135289 99251 M77.41 sub 3rd metatarsal head, right footResolv [...] Granados Member ID Guarantor Name 11/20/2022 1 [place] A [place] [id number] Melyssa A [place] 11/20/2022 2 [place] [facility] Melyssa A [place] [id number] Melyssa A [place] 12/18/2022 1 [place] A [place] [id number] Melyssa A [place] 12/18/2022 2 [place] [facility] Melyssa A [place] [id number] Melyssa A [place] Notes Date Note Type [...] area. Patient has been seen by another operator automated process to which she has custom orthotics and [...] Fairchild DPM [address], [address], [place], [address], [facility] 11/25/2022 12:13:28 12/18/2022 text/html . Patient is [...] Fairchild DPM [address], [address], [place], [address], [facility] 12/18/2022 14:07:57 OBGyn Episode No OBEpisode recorded.
--- OUTSIDE RECORDS SUMMARY | 2024-06-13 01:35 | XMS_ITS | Clinical Summary ---
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
--- OUTSIDE RECORDS SUMMARY | 2024-06-13 01:35 | XMS_ITS | Encounter Summary ---
Author Organization [facility] Address [address] [place] [address] Care Team Providers Care Sheet Metal Assembler Name Role Phone Milena Dos Santos MD Primary Care Provider [phone] Tommy King DO Primary Care Provider [phone] [place] MD Unavailable [phone] Yvan Jaime MD Unavailable [phone] None, Provider Primary Care Provider Unavaila ble Encounter Details Date Type Department Care Team (Latest Contact Info) Description 03/09/2018 Abstract [facility] Michael Mclean MD Social History Tobacco Use Types Packs/Day Years Used Date Smoking Tobacco: Smoker, Current Status Unknown Comments Unknown Sex and Gender Information Value Date Recorded Sex Assigned at Not on file Legal Sex Female 11:35 PM CDT Gender Identity Female 05/09/2021 3:57 PM 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 Sexual Orientation Straight 05/09/2021 3: 57 PM MEDICAL 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 documented as of this encounter Plan of Treatment Not on file documented as of this encounter Visit Diagnoses Not on filedocumented in this encounter Care Teams Sheet Metal Assembler Relationship Specialty Start Date End Date Milena Dos Santos MD [address] [place] [address] PCP - General 06/03/16 04/03/19 Tommy King DO [address] [place] [address] PCP - General INTERNAL MEDICINE 04/04/19 03/27/22 None, Shena, PCP - General UNKNOWN PHYSICIAN SPECIALTY 03/28/22 West Pino MD [address] [facility] [address] [place] [address] UROLOGY 05/03/19 Yvan Jaime MD [address] [place] [address] Surgeon NEUROLOGICAL SURGERY 05/03/19 documented as of this encounter
--- OUTSIDE RECORDS SUMMARY | 2024-06-13 01:35 | XMS_ITS | Referral Summary ---
Author Organization [facility] Address [address] [facility] [place] [address] Care Team Providers Care Scheduling Coordinator Name Role Phone Tommy King DO Primary Care Provider [phone] Source Comments [facility],non-owned Affiliates and Associated Physician Practices is amultiple site organization consisting of ambulatory clinics and hospital sitesin [place], [place], [place] and [place]. This disclosure is being madepursuant to the Care Everywhere program and may not contain all information available regarding this patient. Last updated 18.[facility] Allergies Active Allergy Reactions Criticality Noted [...] fluticasone propionate (FLONASE) 50 MCG/ACT nasal spray [place] 2 sprays into the nose once daily [...] 81 mg by mouth once daily Active Kioskggdizgavqb-JR-XC -APAP (ROBITUSSIN COLD/COUGH/FLU PO) Take 13.5 mg by mouth Active clotrimazole-betameth asone (LOTRISONE) 1-0.05 % cream APPLY TOPICALLY TO THE AFFECTED AREA TWICE DAILY 04/24/2021 Active potassium citrate (UROCIT K 10) 10 MEQ (1080 MG) tablet 06/10/2021 Active doxycycline monohydrate 100 MG tablet TAKE 1 TABLET BY MOUTH DAILY FOR 10 DAYS 05/06/2021 Active ampdakdi-mexsuqwyv-dk xameth (MAXITROL) ophthalmic suspension 07/30/2021 Act amadeo [...] 36.8 C (98.3 F) 06/12/2021 10:53 AM SPORTS ATTORNEY Respiratory Rate 18 05/23/2021 12:51 PM SPORTS ATTORNEY Oxygen Saturation 91% 08/05/2021 9:59 AM CDT Inhaled Oxygen Concentration - - Weight 56.7 kg (125 lb) 08/05/2021 9:59 AM CDT Height 167.6 cm (5' 6 ) 08/05/2021 9:59 AM CDT Body Mass Index 20.18 08/05/2021 9:59 AM CDT Plan of Treatment Not on file Medical Devices Implanted Type Area Director Product Development Device Identifier Shelf Expiration Date Model / Serial / Lot Lead Nrstm 60cm Penta 3mm Pdl 16 [facility] - [id number] Implanted:Qty: 1 on 05/23/2021 by Esau Rose MD at [facility] Back [employer] 10/19/2022 [id number] / [id number] / Slnt Dura Duraseal Pg Trilysine Amine 5 Implanted:Qty: 1 on 05/23/2021 by Esau Rose MD at [facility] Back [employer] Erendira [id number] / / [id number] Gntr Nrstm 1.95inx2.19in [employer]t - [id number] Implanted:Qty: 1 on 05/23/2021 by Esau Rose MD at [facility] Left: Back [employer] 03/26/2023 [id number] / [id number] / Care Teams Scheduling Coordinator Relationship Specialty Start Date End Date Tommy King DO PCP - General Internal Medicine 04/23/21
--- OUTSIDE RECORDS SUMMARY | 2024-06-13 01:35 | XMS_ITS | Clinical Summary ---
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 09/28/2013 Active albuterol sulfate HFA 108 (90 Base) MCG/ACT inhaler Inhale 1-2 puffs into the lungs every 6 (six) hours as needed. 12/28/2015 Active gabapentin 300 MG capsule Take 300 mg by mouth 4 (four) times daily. 09/28/2013 Active loratadine (CLARITIN) 10 MG tablet Take 1 tablet by mouth daily. 09/28/2013 Active lovastatin 40 MG tablet Take 1 tablet by mouth daily. 09/28/2013 Active omeprazole 40 MG capsule Take 1 capsule by mouth daily. 12/25/2014 Active vitamin B-12 500 MCG tablet Take 500 mcg by mouth daily. Active cyclobenzaprine 5 MG tablet Take 5 mg by mouth 2 (two) times daily as needed for Muscle Spasms. 05/16/2019 Active sertraline 50 MG tablet Take 100 mg by mouth daily. 05/02/2019 Active fluticasone propionate 50 MCG/ACT nasal spray 1 spray by Nasal route daily as needed for Rhinitis or Allergies. flonase Active metoprolol succinate ER 25 MG 24 hr tablet Take 25 mg by mouth daily. 12/31/2020 Active BEVESPI AEROSPHERE 9-4.8 MCG/ACT Aerosol INHALE 2 PUFFS BY MOUTH EVERY 12 HOURS 02/21/2021 Active HYDROcodone-irma taminophen 5-325 MG tabletIndicatio ns:Acute Pain < 7 Day Supply Take 1 tablet by mouth every 4 (four) hours as needed. 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 Hyperuricemia 03/28/2022 Tobacco abuse 03/28/2022 Chronic bilateral low back pain 03/28/2022 Gross hematuria 04/13/2019 Urge incontinence 05/14/2018 OAB (overactive bladder) 05/14/2018 Chronic obstructive pulmonary disease (CMS/HCC H HS/HCC) 05/05/2013 Resolved Problems Problem Noted Date Diagnosed Date Resolved Date Other hydronephrosis 04/13/2019 022 Family History Medical History Relation Comments Stroke Father No Known Problems Mother Cancer Sister 1 breast Cancer Sister 2 rectal No Known Problems Son Relation Status Comments Father Mother Sister 1 Sister 2 Alive Son Alive Social History Tobacco Use Types Packs/Day Years Used Date Smoking Tobacco: Every Day Cigarettes 0.5 50 Smokeless Tobacco: Never Tobacco Cessation:Ready to Q uit: No; Counseling Given: No Alcohol Use Standard Drinks/Week Comments No 0 (1 standard drink = 0.6 oz pur e alcohol) AUDIT-C Answer Date Recorded Frequency of Alcohol Consumption Never 05/03/2019 Average Number of Drinks Not on file 019 Frequency of Binge Drinking Not on file 04/05 PHQ-2 Answer Date Recorded PHQ-2 Score - If the patient scores above 3, please move on to questions 3-9 0 12/11/2021 Comments No Sex and Gender Information Value Date Recorded Sex Assigned at Not on file Legal Sex Female 11:35 PM CDT Gender Identity Female 05/09/2021 3:57 PM ELECTRICIAN Sexual Orientation Straight 05/09/2021 3: 57 PM ELECTRICIAN Last Filed Vital Signs Vital Sign Reading Time Taken Comments Blood Pressure 106/60 03/28/2022 9:13 AM ELECTRICIAN Pulse 80 03/28/2022 9:13 AM ELECTRICIAN Temperature 36.1 C (97 F) 03/28/2022 9:13 AM ELECTRICIAN Respiratory Rate 20 03/28/2022 9:13 AM ELECTRICIAN Oxygen Saturation 94% 03/28/2022 9:13 AM ELECTRICIAN Inhaled Oxygen Concentration - - Weight 52.6 kg (116 lb) 03/28/2022 9:13 AM ELECTRICIAN Height 167.6 cm (5' 6 ) 03/28/2022 9:13 AM ELECTRICIAN Body Mass Index 18.72 03/28/2022 9:13 AM ELECTRICIAN Plan of Treatment Health Maintenance Due Date Last Done Comments Colorectal Cancer Screening Colonoscopy (10 Years) 1953 PHQ-2 (Physician FTBpro) 1965 Hepatitis C 07/25/1971 DTaP, Tdap and Td Vaccines (1 - Tdap) 1972 RSV Immunization or 60+ Years (1 - Risk 60-74 years 1-dose series) 2013 Mammogram Screening 04/16/2017 04/16/2015, 4 Annual Medicare Wellness Visit 2018 Dexa Scan (General) 2018 Pneumococcal Vaccine: 65+ Years (2 of 2 - PPSV23 or PCV20) 03/02/2020 01/06/2020 COVID-19 Vaccine (2 - season) 2024 07/09/2020 Influenza Adult (#1) 2024 02/12/2019, 01/13/2018, 02/13/2015, Additional history exists PHQ-2 (Physician FTBpro) 05/04/2024 Zoster Vaccines Completed 04/24/2018, 01/27/2018 Meningococcal B Vaccine Aged Out No l onger eligible based on patient's age to complete this topic Meningococcal Vaccine Aged Out No antonietta vin eligible based on patient's age to complete this topic RSV Immunizations Under 20 Months Aged Out No longer eligible based on patient's age to complete this topic Medical Devices Implanted Type Area Mulling Machine Operator Device Identifier Shelf Expiration Date Model / Serial / Lot Stent Bard [place] 6fr X 24cm - [id number] Implanted:Qty : 1 on 05/17/2019 by West Pino MD at [facility] Stent Left: Ureter [employer] 05/12/2023 [id number] / / [id number] Stent Bard [place] 6fr X 24cm - [id number] Implanted:Qty : 1 on 05/17/2019 by West Pino MD at [facility] Stent Right: Ureter [employer] 05/12/2023 [id number] / / [id number] Stent Ureteral Pigtail 6fr 24cm Crv Taper Tip - [id number] Implanted:Qty : 1 on 02/26/2021 by West Pino MD at [facility] Stent Left: Ureter [employer] [id number] 11/28/2023 [id number] Procedures Procedure Name Priority Date/Time Associated Diagnosis Comments MG SCREENING PAIGE DIGI Routine 04/16/2015 3:06 PM ELECTRICIAN from Last 3 Months or Most Recently Relevant to Health Maintenance Results * MG SCREENING PAIGE DIGI (04/16/2015 3:06 PM ELECTRICIAN) Anatomical Region Laterality Modality Breast Bilateral Mammography 04/16/2015 3:06 PM ELECTRICIAN 04/16/2015 3:06 PM ELECTRICIAN Narrative 04/16/2015 3:24 PM ELECTRICIAN MELYSSA MCCALL ADMIT/SERVICE DATE: 04/16/15 ACCT: [id number] DISCHARGE DATE: : 1955 SEX: F ORD SITE: [facility] PT TYPE: REG CLI ORDERING MD: MANE RAMIREZ MD STUDY DATE REPORT # ORDER # EXT ORDER ID 04/16/15 [id number] PROC CODE: [id number] PROCEDURE DESCRIPTION: MG SCREEN MAMMO DIGITAL BI IMPRESSION: STABLE MAMMOGRAPHIC APPEARANCE WITH NO NEW FINDINGS TO SUGGEST MALIGNANCY IN EITHER BREAST. ASSESSMENT: ACR BI-RADS CATEGORY 2 - BENIGN. RECOMMENDATION: ROUTINE SCREENING MAMMOGRAM BILATERAL IN 1 YEAR COMMENTS: EXAMINATION: DIGITAL BILATERAL SCREENING MAMMOGRAM CLINICAL HISTORY: NO PERSONAL HISTORY OF BREAST CANCER. BREAST CANCER IN A SISTER AT AGE 50. NO PRIOR BREAST PROCEDURES. NO CURRENT COMPLAINTS. COMPARISON: PRIOR MAMMOGRAMS FROM 01/30/2014 11/13/2011 10/29/2011 03/01/2010 TECHNIQUE: BILATERAL CC AND MLO MAMMOGRAMS ARE OBTAINED. THIS STUDY WAS READ WITH THE ASSISTANCE OF A COMPUTER-AIDED DETECTION SYSTEM. TISSUE DENSITY: THE BREAST TISSUE IS HETEROGENEOUSLY DENSE. FINDINGS: BENIGN COARSE CALCIFICATIONS BILATERALLY. OVERALL PARENCHYMAL PATTERN STABLE FROM PRIOR STUDIES. THERE IS NO NEW FOCAL ASYMMETRY, DOMINANT MASS LESION, AREA OF SKIN THICKENING, OR CLUSTER OF SUSPICIOUS APPEARING CALCIFICATIONS IN EITHER BREAST TO SUGGEST MALIGNANCY. ELECTRONICALLY SIGNED BY: BENY CRAFT04/16/2015 3:20 PM Procedure Note Michael Mclean MD - 02/26/2018 MELYSSA MCCALL ADMIT/SERVICE DATE:04/16/15 ACCT: [id number] DISCHARGE DATE: : 1955 SEX: F ORD SITE: [facility] PT TYPE: REG CLI ORDERING MD:MANE RAMIREZ MD STUDY DATE REPORT # ORDER # EXT ORDER ID 04/16/15 [id number] PROC CODE: SCMAMDGB PROCEDURE DESCRIPTION: MG SCREEN MAMMO DIGITAL BI IMPRESSION: STABLE MAMMOGRAPHIC APPEARANCE WITH NO NEW FINDINGS TO SUGGEST MALIGNANCY IN EITHER BREAST. ASSESSMENT: ACR BI-RADS CATEGORY 2 - BENIGN. RECOMMENDATION: ROUTINE SCREENING MAMMOGRAM BILATERAL IN 1 YEAR COMMENTS: EXAMINATION: DIGITAL BILATERAL SCREENING MAMMOGRAM CLINICAL HISTORY: NO PERSONAL HISTORY OF BREAST CANCER. BREAST CANCER IN A SISTER AT AGE 50. NO PRIOR BREAST PROCEDURES. NO CURRENT COMPLAINTS. COMPARISON: PRIOR MAMMOGRAMS FROM 01/30/2014 11/13/2011 10/29/2011 03/01/2010 TECHNIQUE: BILATERAL CC AND MLO MAMMOGRAMS ARE OBTAINED. THIS STUDY WAS READ WITH THE ASSISTANCE OF A COMPUTER-AIDED DETECTION SYSTEM. TISSUE DENSITY: THE BREAST TISSUE IS HETEROGENEOUSLY DENSE. FINDINGS: BENIGN COARSE CALCIFICATIONS BILATERALLY. OVERALL PARENCHYMAL PATTERN STABLE FROM PRIOR STUDIES. THERE IS NO NEW FOCAL ASYMMETRY, DOMINANT MASS LESION, AREA OF SKIN THICKENING, OR CLUSTER OF SUSPICIOUS APPEARING CALCIFICATIONS IN EITHER BREAST TO SUGGEST MALIGNANCY. ELECTRONICALLY SIGNED BY: BENY CRAFT04/16/2015 3:20 PM Mane Ramirez MD MAMMO Final Result from Last 3 Months or Most Recently Relevant to Health Maintenance Insurance MEDICARE MEDICAID Advance Directives * Full Code (Latest Code Status on File) Date Activated Date Inactivated Comments 02/26/2021 1:01 PM 02/26/2021 3:43 PM Care Teams Channel Process Plant Operator Relationship Specialty Start Date End Date None, Provider, PCP - General UNKNOWN PHYSICIAN SPECIALTY 03/28/22 West Pino MD UROLOGY 05/03/19 Yvan Jaime MD [address] [place] [address] Surgeon NEUROLOGICAL SURGERY 05/03/19
[2024-06-13 08:27] VITALS: BP 132/70; PULSE 78; RESP 20; TEMP 36.6; O2SAT 94
[2024-06-13] MEDS: LACTATED RINGERS 1,000 ML 150 ML IV CONT (08:29)
--- NOTE | 2024-06-13 08:53 | P.PNAN_ITS ---
Anes - Initial Pre Proc Eval Procedure: Operation Date: 06/13/24 10:00 Proposed Procedures p Esophagogastroduodenoscopy - Channing Ryan MD Date/Time: 06/13/24 08:53 Surgeon: Channing Ryan MD Pre Op Diagnosis: Esophageal,Dysphagia Patient Data Age: 68 Gender: F Height: 1.7 m Weight: 41.2 kg Last Vital Signs Temp 97.9 F 06/13/24 08:27 Pulse 78 06/13/24 08:27 Resp 20 06/13/24 08:27 BP 132/70 06/13/24 08:27 Pulse Ox 94 06/13/24 08:27 O2 Del Method Room Air 06/13/24 08:27 Allergies Allergy/AdvReac Type Severity Reaction Status Date / Time Penicillins Allergy Severe Anaphylaxis Verified 06/10/24 13:32 meperidine Allergy Intermediate Itching Verified 06/10/24 13:32 sulfamethoxazole (From Allergy Intermediate Mouth Verified 06/10/24 13:32 Bactrim) burning/redness trimethoprim (From Bactrim) Allergy Intermediate Mouth Verified 06/10/24 13:32 burning/redness mirtazapine AdvReac Mild Headache Verified 06/10/24 13:32 Home Medications ?Medication ?Instructions ?Recorded ?Confirmed ?Type aspirin 81 mg tablet,delayed 81 mg PO DAILY 06/02/19 06/13/24 History release (Adult Aspirin Regimen) cyclobenzaprine 5 mg tablet 5 mg PO BID 01/05/20 06/13/24 History oxycodone myristate 13.5 mg 13.5 mg PO BID 11/19/21 06/13/24 History capsule sprinkle extend release 12hr(DON'T CRUSH) (Xtampza ER) fluticasone propionate 50 1 spray intranasal PRN PRN Allergy 05/09/22 06/13/24 History mcg/actuation nasal Symptoms spray,suspension (Flonase Allergy Relief) solifenacin 10 mg tablet (Vesicare) 5 mg PO DAILY 02/04/23 06/13/24 History cholecalciferol (vitamin D3) 125 125 mcg PO DAILY 07/24/23 06/13/24 History mcg (5,000 unit) tablet (Vitamin D3) guaifenesin 600 mg tablet, 600 mg PO Q12H 07/24/23 06/13/24 History extended release 12 hr (Mucinex) loratadine 10 mg tablet 10 mg PO DAILY 07/24/23 06/13/24 History ferrous sulfate 325 mg (65 mg See Rx Instructions .Route 09/18/23 06/13/24 Rx iron) tablet (FeroSul) .COMPLEX #30 tabs metoprolol succinate 25 mg See Rx Instructions .Route 10/28/23 06/13/24 Rx tablet,extended release 24 hr .COMPLEX #90 tabs tucxavvj-wgct-nimo 8 mg-folic 400 1 tablet PO DAILY 11/19/23 06/13/24 History mcg-K 50 mcg-lutein 300 mcg tablet (Centrum Silver Women) tiotropium 2.5 mcg-olodaterol 2.5 See Rx Instructions .Route 12/28/23 06/13/24 Rx mcg/actuation mist for inhalation .COMPLEX #4 grams (Stiolto Respimat) lovastatin 40 mg tablet 40 mg PO DAILY #90 tabs 01/06/24 06/13/24 Rx albuterol sulfate 90 mcg/actuation See Rx Instructions .Route 03/15/24 06/09/24 History aerosol inhaler .COMPLEX PRN Shortness Of Breath Or Wheezing ketoconazole 2 % topical cream 1 applic topical BID PRN Skin 03/15/24 06/13/24 History Irritation nicotine 21 mg/24 hr daily 1 patch transdermal DAILY 03/15/24 06/13/24 History transdermal patch paroxetine HCl 20 mg tablet (Paxil) 20 mg PO QAM 03/15/24 06/13/24 History mupirocin 2 % topical ointment 1 applic topical BID PRN skin 04/13/24 06/09/24 Rx irritation #50 grams prednisone 10 mg tablet See Rx Instructions PO DAILY #34 05/30/24 06/13/24 Rx tabs omeprazole 40 mg capsule,delayed 40 mg PO DAILY #90 caps 06/02/24 06/13/24 Rx release albuterol sulfate 2.5 mg/3 mL 2.5 mg (3 mL) inhalation Q4-6H PRN 06/07/24 06/10/24 Rx (0.083 %) solution for nebulization shortness of breath or wheezing #180 mL gabapentin 300 mg capsule See Rx Instructions .Route 06/09/24 06/13/24 Rx .COMPLEX #270 caps nystatin 100,000 unit/mL oral 5 ml PO QID PRN thrush #473 mL 06/09/24 06/10/24 Rx suspension Patient hx anesthesia problems: none Family hx anesthesia problems: none Results Review: All pre-operative results and documents have been reviewed as part of the pre- operative evaluation. [facility] Past Medical History Medical History Trigger finger, left middle finger RLS (restless legs syndrome) Esophageal dilatation Chronic narcotic use Olecranon bursitis, left elbow On home O2 Chronic sinusitis Dysphagia Tobacco abuse Osteopenia Olecranon bursitis, left elbow PSVT (paroxysmal supraventricular tachycardia) Change in bowel habits Kidney infection Kidney stones Fibromyalgia Rheumatoid arthritis Arthritis Constipation IBS (irritable bowel syndrome) GERD (gastroesophageal reflux disease) Stomach ulcer High cholesterol Shortness of Breath Congestion of nasal sinus Wears glasses Ventricular ectopics Lumbar radiculopathy Family history of colon cancer Adenomatous colon polyp Esophageal stricture Urge incontinence ILD (interstitial lung disease) Small amount of interstitial lung disease was seen on base of lungs on chest CT 03/25/2018 which was an abdomen and pelvis CT Essential hypertension Oxygen dependent Collagen vascular disease History of tobacco abuse Encounter for screening for other metabolic disorders Gastroesophageal reflux disease without esophagitis Hyperlipidemia, unspecified Infectious colitis Mass in neck Muscle cramps Thrush Tachycardia Anxiety Demyelinating disease COPD (chronic obstructive pulmonary disease) Tobacco abuse Hyperlipidemia due to dietary fat intake Surgical History Surgical History History of lumbar surgery Spinal cord stimulator implanted 05/23/21 Family History Family History Mother Patient's mother is , Onset Age: 72 Sibling Carcinoma of colon Ovarian cancer Lung cancer Rectal cancer Family history of malignant neoplasm of breast in first degree relative Father Brain aneurysm Other Arthritis COPD (chronic obstructive pulmonary disease) Cerebrovascular accident High cholesterol Hypertension Lung disease Neuropathy Social History Social History Social History: caffeine-coffee/soda Smoking packs per day: 1 Smoking cigarettes per day: 20.0 Years smoked: 55 Smoking pack-years: 55.00 Smoking status: Current every day smoker Tobacco type: cigarettes Second hand tobacco smoke exposure: Yes Smoking end date: 05/19/23 Additional smoking assessment comments: TRYING TO STOP SMOKING, smoking ~3/4 pack/day currently Alcohol intake: never Substance use: never Substance use type: does not use Other substance usage details: EDIBLES Last use: 11-18-2021 Do You Feel Safe in your Home?: Yes Lack of Transportation: No Lack of Food: Never True Current Housing: I Have Housing Concerned About Future Housing: No Difficulty Paying Gas/Electric Bills: No Difficulty Paying for Meds: No Currently Unemployed: No Education: High School Diploma/GED Difficulty w/ Childcare or Family Care: No Living arrangements: alone Occupation/Education: retired Gender identity (if verbalized by the patient): Female Spiritual care concerns: No Anes - Eval Final PreProcedure Day of Procedure 06/13/24 08:53 Patient weight: cachectic Lungs: normal air movement Airway: Mallampati scale class II Neurological: alert and oriented Last oral intake: >/= 8 hours ASA classification: IV Emergent: no Anesthetic plan: proceed Anesthesia type and monitoring: general GIVS and standard monitoring Results Review: All pre-operative results and documents have been reviewed as part of the pre- operative evaluation. Active smoker at 7 am, 55 pack years. Stress test 05/27 neg for ischemia. Informed Consent: The patient's anesthetic plan and its attendant risks and benefits were discussed with the patient/family/POA. Questions were solicited and answers provided to the satisfaction of the patient/family/POA.
--- NOTE | 2024-06-13 09:08 | PM.HPGS ---
History of Present Illness History of Present Illness Consent: Risks, benefits, and alternatives have been discussed and questions answered. Patient agrees to proceed with procedure. Chief complaint: Esophageal,Dysphagia Narrative: Melyssa Mccall is a 68 year old female here for another egd, last one 02/2024- recurrent dysphagia, esophageal ring dilated up to 16.5mm Review of Systems Review of Systems: All systems reviewed & are unremarkable except as noted in HPI and below PMFSH Past Medical History Medical History Trigger finger, left middle finger RLS (restless legs syndrome) Esophageal dilatation Chronic narcotic use Olecranon bursitis, left elbow On home O2 Chronic sinusitis Dysphagia Tobacco abuse Osteopenia Olecranon bursitis, left elbow PSVT (paroxysmal supraventricular tachycardia) Change in bowel habits Kidney infection Kidney stones Fibromyalgia Rheumatoid arthritis Arthritis Constipation IBS (irritable bowel syndrome) GERD (gastroesophageal reflux disease) Stomach ulcer High cholesterol Shortness of Breath Congestion of nasal sinus Wears glasses Ventricular ectopics Lumbar radiculopathy Family history of colon cancer Adenomatous colon polyp Esophageal stricture Urge incontinence ILD (interstitial lung disease) Small amount of interstitial lung disease was seen on base of lungs on chest CT 03/25/2018 which was an abdomen and pelvis CT Essential hypertension Oxygen dependent Collagen vascular disease History of tobacco abuse Encounter for screening for other metabolic disorders Gastroesophageal reflux disease without esophagitis Hyperlipidemia, unspecified Infectious colitis Mass in neck Muscle cramps Thrush Tachycardia Anxiety Demyelinating disease COPD (chronic obstructive pulmonary disease) Tobacco abuse Hyperlipidemia due to dietary fat intake Surgical History Surgical History History of lumbar surgery Spinal cord stimulator implanted 05/23/21 Family History Family History Mother Patient's mother is , Onset Age: 72 Sibling Carcinoma of colon Ovarian cancer Lung cancer Rectal cancer Family history of malignant neoplasm of breast in first degree relative Father Brain aneurysm Other Arthritis COPD (chronic obstructive pulmonary disease) Cerebrovascular accident High cholesterol Hypertension Lung disease Neuropathy Social History Social History Social History: caffeine-coffee/soda Smoking packs per day: 1 Smoking cigarettes per day: 20.0 Years smoked: 55 Smoking pack-years: 55.00 Smoking status: Current every day smoker Tobacco type: cigarettes Second hand tobacco smoke exposure: Yes Smoking end date: 05/19/23 Additional smoking assessment comments: TRYING TO STOP SMOKING, smoking ~3/4 pack/day currently Alcohol intake: never Substance use: never Substance use type: does not use Other substance usage details: EDIBLES Last use: 11-18-2021 Do You Feel Safe in your Home?: Yes Lack of Transportation: No Lack of Food: Never True Current Housing: I Have Housing Concerned About Future Housing: No Difficulty Paying Gas/Electric Bills: No Difficulty Paying for Meds: No Currently Unemployed: No Education: High School Diploma/GED Difficulty w/ Childcare or Family Care: No Living arrangements: alone Occupation/Education: retired Gender identity (if verbalized by the patient): Female Spiritual care concerns: No Meds Home Medications and Allergies Home Medications ?Medication ?Instructions ?Recorded ?Confirmed ?Type aspirin 81 mg tablet,delayed 81 mg PO DAILY 06/02/19 06/13/24 History release (Adult Aspirin Regimen) cyclobenzaprine 5 mg tablet 5 mg PO BID 01/05/20 06/13/24 History oxycodone myristate 13.5 mg 13.5 mg PO BID 11/19/21 06/13/24 History capsule sprinkle extend release 12hr(DON'T CRUSH) (Xtampza ER) fluticasone propionate 50 1 spray intranasal PRN PRN Allergy 05/09/22 06/13/24 History mcg/actuation nasal Symptoms spray,suspension (Flonase Allergy Relief) solifenacin 10 mg tablet (Vesicare) 5 mg PO DAILY 02/04/23 06/13/24 History cholecalciferol (vitamin D3) 125 125 mcg PO DAILY 07/24/23 06/13/24 History mcg (5,000 unit) tablet (Vitamin D3) guaifenesin 600 mg tablet, 600 mg PO Q12H 07/24/23 06/13/24 History extended release 12 hr (Mucinex) loratadine 10 mg tablet 10 mg PO DAILY 07/24/23 06/13/24 History ferrous sulfate 325 mg (65 mg See Rx Instructions .Route 09/18/23 06/13/24 Rx iron) tablet (FeroSul) .COMPLEX #30 tabs metoprolol succinate 25 mg See Rx Instructions .Route 10/28/23 06/13/24 Rx tablet,extended release 24 hr .COMPLEX #90 tabs tzzulnid-selh-frgw 8 mg-folic 400 1 tablet PO DAILY 11/19/23 06/13/24 History mcg-K 50 mcg-lutein 300 mcg tablet (Centrum Silver Women) tiotropium 2.5 mcg-olodaterol 2.5 See Rx Instructions .Route 12/28/23 06/13/24 Rx mcg/actuation mist for inhalation .COMPLEX #4 grams (Stiolto Respimat) lovastatin 40 mg tablet 40 mg PO DAILY #90 tabs 01/06/24 06/13/24 Rx albuterol sulfate 90 mcg/actuation See Rx Instructions .Route 03/15/24 06/09/24 History aerosol inhaler .COMPLEX PRN Shortness Of Breath Or Wheezing ketoconazole 2 % topical cream 1 applic topical BID PRN Skin 03/15/24 06/13/24 History Irritation nicotine 21 mg/24 hr daily 1 patch transdermal DAILY 03/15/24 06/13/24 History transdermal patch paroxetine HCl 20 mg tablet (Paxil) 20 mg PO QAM 03/15/24 06/13/24 History mupirocin 2 % topical ointment 1 applic topical BID PRN skin 04/13/24 06/09/24 Rx irritation #50 grams prednisone 10 mg tablet See Rx Instructions PO DAILY #34 05/30/24 06/13/24 Rx tabs omeprazole 40 mg capsule,delayed 40 mg PO DAILY #90 caps 06/02/24 06/13/24 Rx release albuterol sulfate 2.5 mg/3 mL 2.5 mg (3 mL) inhalation Q4-6H PRN 06/07/24 06/10/24 Rx (0.083 %) solution for nebulization shortness of breath or wheezing #180 mL gabapentin 300 mg capsule See Rx Instructions .Route 06/09/24 06/13/24 Rx .COMPLEX #270 caps nystatin 100,000 unit/mL oral 5 ml PO QID PRN thrush #473 mL 06/09/24 06/10/24 Rx suspension Allergies Allergy/AdvReac Type Severity Reaction Status Date / Time Penicillins Allergy Severe Anaphylaxis Verified 06/10/24 13:32 meperidine Allergy Intermediate Itching Verified 06/10/24 13:32 sulfamethoxazole (From Allergy Intermediate Mouth Verified 06/10/24 13:32 Bactrim) burning/redness trimethoprim (From Bactrim) Allergy Intermediate Mouth Verified 06/10/24 13:32 burning/redness mirtazapine AdvReac Mild Headache Verified 06/10/24 13:32 Vital Signs Vital Signs - 24 hr 06/13/24 08:27 Temperature 97.9 F Pulse Rate 78 Respiratory Rate 20 Blood Pressure 132/70 Pulse Oximetry 94 Oxygen Delivery Room Air Exam Const: General: comfortable and no acute distress Other: uses a walker HENMT: Face/Nose/Sinus: Normal nares present Eyes: General: appearance normal, both eyes and all related structures Neck: Neck: no JVD Resp: Auscultation: clear to auscultation bilaterally Cardio: Rate: regular rate Rhythm: regular rhythm GI: Inspection: non-distended GI Palp: Yes Soft to palpation Skin: General skin exam: normal color Neuro: Speech: normal speech Extrem: General: normal to inspection Psych: Mental Status: mental status grossly normal Assessment and Plan Assessment and plan (1) Dysphagia: Code(s): R13.10 - Dysphagia, unspecified Status: Acute Assessment and Plan: egd (2) Gastroesophageal reflux disease without esophagitis: Code(s): K21.9 - Gastro-esophageal reflux disease without esophagitis Status: Acute
[2024-06-13 09:28] VITALS: BP 109/53; PULSE 69; RESP 11; O2SAT 100
[2024-06-13 09:38] VITALS: BP 106/54; PULSE 71; RESP 16; O2SAT 100
[2024-06-13 09:48] VITALS: BP 132/67; PULSE 71; RESP 15; O2SAT 100
== END 2024-06-13 09:55 | disposition home or self-care (01) ==
PROVIDERS: PCP Family Medicine; Referring Provider Nurse Practitioner; Visit Provider Internal Medicine Gastroenterology
PROC: 0DJ08ZZ Inspection of Upper Intestinal Tract, Via Natural or Artificial Opening Endoscopic (ICD-10-PCS; CPT 43249; principal; 2024-06-13 10:00)
DX: K22.2 Esophageal obstruction (principal); B37.81 Candidal esophagitis; K58.9 Irritable bowel syndrome, unspecified; E78.00 Pure hypercholesterolemia, unspecified; I10 Essential (primary) hypertension; F41.9 Anxiety disorder, unspecified; J44.9 Chronic obstructive pulmonary disease, unspecified; G25.81 Restless legs syndrome; J32.9 Chronic sinusitis, unspecified; M85.88 Other specified disorders of bone density and structure, other site; I47.10 Supraventricular tachycardia, unspecified; M06.9 Rheumatoid arthritis, unspecified; N39.41 Urge incontinence; J84.9 Interstitial pulmonary disease, unspecified; M35.9 Systemic involvement of connective tissue, unspecified; F17.210 Nicotine dependence, cigarettes, uncomplicated; Z79.82 Long term (current) use of aspirin; Z79.891 Long term (current) use of opiate analgesic; Z79.51 Long term (current) use of inhaled steroids; Z79.52 Long term (current) use of systemic steroids; Z79.899 Other long term (current) drug therapy; Z99.81 Dependence on supplemental oxygen; Z98.890 Other specified postprocedural states; Z98.1 Arthrodesis status; Z96.82 Presence of neurostimulator; Z86.0100 Personal history of colon polyps, unspecified; Z87.19 Personal history of other diseases of the digestive system; Z87.442 Personal history of urinary calculi; Z80.0 Family history of malignant neoplasm of digestive organs; Z80.1 Family history of malignant neoplasm of trachea, bronchus and lung; Z80.41 Family history of malignant neoplasm of ovary; Z80.3 Family history of malignant neoplasm of breast; Z82.49 Family history of ischemic heart disease and other diseases of the circulatory system
CPT/HCPCS: 43249; 88305; C1726; J2003; J2704; J7120

== ENCOUNTER 2024-07-18 14:35 | Outpatient (CLI) | payer MEDICARE, MEDICAID, SELFPAY ==
--- NOTE | ~2024-07-18 | XR_ITS ---
XR chest 2V 07/18/2024 15:01 Indication: Chronic obstructive pulmonary disease. Procedure: 2 view chest Comparison: Comparison to multiple prior studies sequentially, with oldest reviewed study dated 09/2019. Findings: New right apical asymmetry. There are emphysematous changes. There are coarse interstitial infiltrate s of the right upper and lower lung, suspicious for pneumonia. There are is no significant effusion. No pneumothorax. Heart size normal. Impression: 1: New right apical asymmetry. Correlation with CT chest recommended to exclude mass. 2: Coarse interstitial changes of the right upper and lower lung, suspicious for pneumonia superimpo sed on emphysema. Reviewed, dictated and finalized at location B. Impression: 1: New right apical asymmetry. Correlation with CT chest recommended to exclude mass. 2: Coarse interstitial changes of the right upper and lower lung, suspicious f or pneumonia superimposed on emphysema.
[2024-07-18 16:28] LABS: Influenza A QL RT-PCR Negative (Negative); Influenza B QL RT-PCR Negative (Negative); RSV RNA, RT-PCR Negative (Negative); SARS-CoV-2 RNA PCR Negative (Negative)
--- OUTSIDE RECORDS SUMMARY | 2024-07-18 17:15 | XMS_ITS | Clinical Summary ---
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 Sexual Orientation Straight 05/09/2021 3: 57 PM FOOTBALL PAD REPAIRER Last Filed Vital Signs Vital Sign Reading Time Taken Comments Blood Pressure 106/60 03/28/2022 9:13 AM FOOTBALL PAD REPAIRER Pulse 80 03/28/2022 9:13 AM FOOTBALL PAD REPAIRER Temperature 36.1 C (97 F) 03/28/2022 9:13 AM FOOTBALL PAD REPAIRER Respiratory Rate 20 03/28/2022 9:13 AM FOOTBALL PAD REPAIRER Oxygen Saturation 94% 03/28/2022 9:13 AM FOOTBALL PAD REPAIRER Inhaled Oxygen Concentration - - Weight 52.6 kg (116 lb) 03/28/2022 9:13 AM FOOTBALL PAD REPAIRER Height 167.6 cm (5' 6 ) 03/28/2022 9:13 AM FOOTBALL PAD REPAIRER Body Mass Index 18.72 03/28/2022 9:13 AM FOOTBALL PAD REPAIRER Plan of Treatment Health Maintenance Due Date Last Done Comments Colorectal Cancer Screening Colonoscopy (10 Years) 1955 Hepatitis C 07/25/1971 DTaP, Tdap and Td [...] 2024 02/12/2019, 01/13/2018, 02/13/2015, Additional history exists Zoster Vaccines Completed 04/24/2018, 01/27/2018 Meningococcal B Vaccine Aged Out No l onger eligible based on patient's age to complete this topic Meningococcal Vaccine Aged Out No antonietta vin eligible based on patient's age to complete this topic RSV Immunizations Under 20 Months Aged Out No longer eligible based on patient's age to complete this topic Medical Devices Implanted Type Area Low Pressure Kettle Operator Device Identifier Shelf Expiration Date Model / Serial / Lot Stent Bard Jeannette 6fr X 24cm - [id number] Implanted:Qty : 1 on 05/17/2019 by West Pino MD at [facility] Stent Left: Ureter [employer] 05/12/2023 [id number] / / [id number] Stent Bard Jeannette 6fr X 24cm - [id number] Implanted:Qty : 1 on 05/17/2019 by West Pino MD at [facility] Stent Right: Ureter [employer] 05/12/2023 [id number] / / [id number] Stent Ureteral Pigtail 6fr 24cm Crv Taper Tip - [id number] Implanted:Qty : 1 on 02/26/2021 by West Pino MD at [facility] Stent Left: Ureter [employer] [id number] 11/28/2023 [id number] / [id number] Procedures Procedure Name Priority Date/Time Associated Diagnosis Comments MG SCREENING PAIGE DIGI Routine 04/16/2015 3:06 PM FOOTBALL PAD REPAIRER from Last 3 Months or Most Recently Relevant to Health Maintenance Results * MG SCREENING PAIGE DIGI (04/16/2015 3:06 PM FOOTBALL PAD REPAIRER) Anatomical Region Laterality Modality Breast Bilateral Mammography 04/16/2015 3:06 PM FOOTBALL PAD REPAIRER 04/16/2015 3:06 PM FOOTBALL PAD REPAIRER Narrative 04/16/2015 3:24 PM FOOTBALL PAD REPAIRER MELYSSA MCCALL ADMIT/SERVICE DATE: 04/16/15 ACCT: [id number] DISCHARGE DATE: : 1955 SEX: F ORD SITE: [facility] PT TYPE: REG CLI ORDERING MD: MANE RAMIREZ MD STUDY DATE REPORT # ORDER # EXT ORDER ID 04/16/15 [id number] PROC CODE: SCMAMDGB PROCEDURE DESCRIPTION: MG SCREEN [...] - 02/26/2018 MELYSSA MCCALL ADMIT/SERVICE DATE:04/16/15 ACCT: [id number] DISCHARGE DATE: : 1955 SEX: F ORD SITE: [facility] PT TYPE: REG CLI ORDERING MD:MANE RAMIREZ MD STUDY DATE REPORT # ORDER # EXT ORDER ID 04/16/15 [id number] PROC CODE: SCMAMDGB PROCEDURE DESCRIPTION: MG SCREEN [...] 1:01 PM 02/26/2021 3:43 PM Care Teams Concaver Relationship Specialty Start Date End Date None, Shena, PCP - General UNKNOWN PHYSICIAN SPECIALTY 03/28/22 West Pino MD UROLOGY 05/03/19 Yvan Jaime MD [address] [place] [address] Surgeon NEUROLOGICAL SURGERY 05/03/19
--- OUTSIDE RECORDS SUMMARY | 2024-07-18 17:15 | XMS_ITS | Clinical Summary ---
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
--- OUTSIDE RECORDS SUMMARY | 2024-07-18 17:15 | XMS_ITS | Data Portability ---
Author Organization [facility], Main Office Address [address] [place] [address] Assessment Encounter Date Assessment Date Assessment LastModified by Organization Details LastModified Time 11/20/2022 11/20/2022 This note is dictated and transcribed by [employer]. Cell Biologist variances may occur. Despite proofreading, typographical errors [...] Recorded Time Metatarsalg ia of right foot 4486303466844 00 Active 2022 Shemar Fairchild DPM [address], [address], [place], [address], [facility] 3 16:36:55 Foot callus 903720161 Active 2022 Shemar Fairchild DPM [address], [address], [place], [address], [facility] 3 16:36:59 Hammer toe 279139986 Active 2022 Shemar Fairchild DPM [address], [address], [place], [address], [facility] 3 16:37:19 Problem Notes None recorded. Procedures Surgical History Date Name Laterality Status Provider Name and Address Organization Details Recorded Time Hysterectomy, Partial completed Joycelyn Bean [facility] 11/20/2022 16:57:02 Appendectomy completed Joycelyn Bean [facility] 11/20/2022 16:57:06 Total hysterectomy completed Joycelyn Bean [facility] 11/20/2022 16:57:18 release of trigger finger completed Joycelyn Bean [facility] 11/20/2022 16:57:28 Tonsillectomy completed Joycelyn Bean [facility] 11/20/2022 16:57:34 Imaging Results None recorded. Procedure Notes None recorded. Medical Equipment None Reported. Allergies Allergen ID Allergen Name Allergen Category Reaction Reaction Severity Criticality Documentation Date Start Date Code Code System Note Provider Name and Address Organization Details Recorded Time 44028 Product containin g penicilli n (product) medicatio n Not available Not available Not available 11/20/2022 85596 8001 SNOMED [facility] 3 16:51:43 93573 meperidin e medicatio n Not available Not available Not available 11/20/2022 6754 RxNorm [facility] 3 16:51:54 63828 sulfadime thoxine Not available Not available Not available Not available 11/20/2022 19565 RxNorm [facility] 3 16:52:05 82066 trimethop rim medicatio n Not available Not available Not available 11/20/2022 06413 RxNorm [facility] 3 16:52:18 Medications Name Sig Start Date [...] % 97 % 167.64 cm 16.9 kg/m2 86474.2 g 142 mm[Hg] 78 mm[Hg] Joycelyn US [facility] [employer] [facility] 3 16:19:04 Date Recorded Body height Body mass index (BMI) Body weight Heart rate Respiratory rate Oxygen saturation Oxygen saturation in Arterial blood by Pulse oximetry Systolic blood pressure Diastolic blood pressure Provider Name and Address Organization Details Last Updated DateTime 3 167.64 cm 16.9 kg/m2 23503.2 g 72 /min 14 /min 97 % 97 % 134 mm[Hg] 69 mm[Hg] Joycelyn Bean [facility] [employer] [facility] 3 14:02:12 Social History Question Answer Notes LastModified by Organizat ion Details LastModified Time Tobacco Smoking Status Current Every Day Smoker Joycelyn amin [facility] 11/20/2022 16:56:20 What Is Your Level Of [...] SNOMED-CT Code Diagnosis ICD10 Code Diagnosis Note [id number] Shemar Fairchild DPM [facility] [place] [address] [facility], [address] [place] [address] 11/20/2022 16:13:05 11/25/2022 16:43:24 Metatarsalgia of right foot 8305729488 90920 M77.41 sub 3rd metatarsal head, right footas above Foot callus 299053086 L8 4 sub 3rd metatarsal headMildOf floading with metatarsal pad had to functional orthoticse ducated on supportive shoe gearFollow -up in 1 month Hammer toe 774235483 M20 .41 right 2nd 3rd toes mildEducat ed on treatment optionCont inue with conservati ve therapy [id number] Shemar Fairchild DPM [facility] [place] [address] [facility], [address] [place] [address] 12/18/2022 13:48:12 12/18/2022 14:26:06 Hammer toe 602524568 M20.41 right 2nd 3rd toes mildpatien t would like to continue with conservati ve therapyrec ommend silicone sleeves and soft high toe box shoe to prevent wounds infectionF ollow-up as needed Foot callus 531617570 L8 4 sub 3rd metatarsal headresolv ed with offloading Metatarsal ella of right foot 3635211596 44452 M77.41 sub 3rd metatarsal head, right footResolv [...] Granados Member ID Guarantor Name 11/20/2022 1 [place] Melyssa A Cal [id number] Melyssa A Cal 11/20/2022 2 [place] [facility] PUBLIC AID Melyssa A Cal [id number] Melyssa A Cal 12/18/2022 1 [place] Melyssa A [place] [id number] Melyssa A Cal 12/18/2022 2 [place] [facility] Melyssa A Cal [id number] Melyssa A Cal Notes Date Note Type [...] area. Patient has been seen by another financial institution president to which she has custom orthotics and [...] Fairchild DPM [address], [address], [place], [address], [facility] 11/25/2022 12:13:28 12/18/2022 text/html . Patient is [...] Fairchild DPM [address], [place], [address], [facility] 12/18/2022 14:07:57 OBGyn Episode No OBEpisode recorded.
--- OUTSIDE RECORDS SUMMARY | 2024-07-18 17:15 | XMS_ITS | Continuity of Care Document ---
Author Organization [facility] Address [address] [facility] [address] [place] [address] Phone Care Team Providers Care Sharepoint Admin Name Role Phone Sherif Doyle MD Unavailable Unavailable Allergies, Adverse Reactions, Alerts Substance Reaction Status Criticality PENICILLIN G POTASSIUM Active No In formation MEPERIDINE HCL Active No Informatio n Medications Medication Instructions Dosage Effective Dates (start - stop) Status Comments METHADOSE 5 MGTABLET tk 2 ts qd - Acti ve Lidoderm 5 % (700 mg/patch) Adhesive Patch - Active Miacalcin 200 unit/Actuation Nasal [place] Aerosol 1 spray each nostril qd - [...] on Encounter [facility], [address], [id number], [place] tel:[phone] [facility] No Information 6 Vivek Gorman. [address] [place] [address], [id number] , [place]. tel:[phone] Offic/outpt E&m Estab Minor 10 [facility], [address] [address], [place], [id number], [place] tel:[phone] [facility] No Information 6 José Luis Sullivan. [address] [facility], [address], [id number] , [place]. tel:[phone] Referring Provider: Nate Ordonez V, [address], [address] . tel:[phone] [facility], [address], [place], [place], [id number], [place] tel:[phone] [facility] No Information 6 José Luis Sullivan. [address], [place], [place], [id number] , [place]. tel: [phone] Referring Provider: Nate Ordonez V, [address], [place], [address] . tel:[phone] [facility], [address], [place], [place], [id number], [place] tel:[phone] [facility] No Information 6 José Luis Sullivan. [address], [place], [place], [id number] , [place]. tel: [phone] Referring Provider: Nate Ordonez V, [address], [place], [address] . tel:[phone] Offic/outpt E&m Estab Low-mod [facility], [address], [place], [place], [id number], [place] tel:[phone] [facility] No Information 6 José Luis Sullivan. [address], [address], [place], [place], [id number] , [place]. tel:[phone] Referring Provider: Nate Ordonez V, [address], [place], [address] . tel:[phone] Offic/outpt E&m Estab Low-mod [facility], [address], [place], [place], [id number], [place] tel:[phone] [facility] No Information 6 José Luis Sullivan. [address], [address], [place], [place], [id number] , [place]. tel: [phone] Referring Provider: Nate Ordonez V, [address], [place], [address] . tel:[phone] Offic/outpt E&m Estab Minor 10 [facility], [address], [place], [place], [id number], [place] tel:[phone] [facility] No Information May-0 9-200 6 José Luis Sullivan. [address], [place], [place], [id number] , [place]. tel:[phone] Referring Provider: Nate Ordonez V, [address], [place], [address] . tel:[phone] [facility], [address], [place], [place], [id number], [place] tel:[phone] [facility] No Information May-0 5-200 6 José Luis Sullivan. [address], [place], [place], [id number] , [place]. tel:[phone] Referring Provider: Nate Ordonez V, [address], [place], [address] . tel:[phone] [facility], [address], [place], [place], [address], [place] tel:[phone] [facility] No Information May-0 2-200 6 José Luis Sullivan. [address], [place], [place], [id number] , [place]. tel:[phone] Referring Provider: Nate Ordonez V, [address], [place], [address] . tel:[phone] [facility], [address], [place], [place], [address], [place] tel:[phone] [facility] No Information Apr-2 8-200 6 Ordonez Nate. [address], [address], [place], [place], [id number] , [place]. tel:[phone] Referring Provider: Nate Ordonez V, [address], [place], [address] . tel:[phone] [facility], [address], [place], [place], [id number], [place] tel:[phone] [facility] No Information Aug- 5-200 6 José Luis Sullivan. [address], [place], [place], [id number] , [place]. tel:[phone] Referring Provider: Nate Ordonez V, [address], [place], [address] . tel:[phone] [facility], [address], [place], [place], [id number], [place] tel:[phone] [facility] NANCY No Information 6 José Luis Sullivan. [address], [place], [place], [id number] , [place]. tel:[phone] Referring Provider: Nate Ordonez V, [address], [place], [address] . tel:[phone] [facility], [address], [place], [place], [id number], [place] tel:[phone] [facility] NANCY No Information 200 6 José Luis Sullivan. [address], [place], [place], [id number] , [place]. tel:[phone] Referring Provider: Nate Ordonez V, [address], [place], [address] . tel:[phone] Offic Cons New/estab Mod-hi 60 [facility], [address], [place], [place], [id number], [place] tel:[phone] [facility] NANCY No Information 8-200 6 José Luis Sullivan. [address], [facility] [address], [place], [place], [id number] , [place]. tel:[phone] Referring Provider: Nicho Goldstein MD B, [address] [place] [place], [address]. tel:[phone] Family History Family Member Type Diagnosis Age At Onset Gen Fam Hx Problem (finding) Cancer Gen Fam Hx Problem (finding) Stroke Payers Payer name Insurance type Covered republican ID Authorstepha jevon(s) BCBS Of [facility] [id number] Social History Type Description Quantity Date Captured [...]
--- OUTSIDE RECORDS SUMMARY | 2024-07-18 17:15 | XMS_ITS | Encounter Summary ---
Author Organization [facility] Address [address] [place] [address] Care Team Providers Care Battery Container Tester Aluminum Name Role Phone Milena Dos Santos MD Primary Care Provider [phone] Tommy King DO Primary Care Provider [phone] West Pino MD Unavailable [phone] Yvan Jaime MD Unavailable [phone] None, Provider Primary Care Provider Unavaila ble Encounter Details Date Type Department Care Team (Latest Contact Info) Description 03/09/2018 Abstract [facility] Michael Mclean MD Social History Tobacco Use Types Packs/Day Years Used Date Smoking Tobacco: Smoker, Current Status Unknown Comments Unknown Sex and Gender Information Value Date Recorded Sex Assigned at Not on file Legal Sex Female 11:35 PM CDT Gender Identity Female 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 Sexual Orientation Straight 05/09/2021 3: 57 PM INSTRUCTOR MILITARY SCIENCE documented as of this encounter Plan of Treatment Not on file documented as of this encounter Visit Diagnoses Not on filedocumented in this encounter Care Teams Battery Container Tester Aluminum Relationship Specialty Start Date End Date Milena Dos Santos MD [address] [place] [address] PCP - General 06/03/16 04/03/19 Tommy King DO [address] [place] [address] PCP - General INTERNAL MEDICINE 04/04/19 03/27/22 None, Shena, PCP - General UNKNOWN PHYSICIAN SPECIALTY 03/28/22 West Pino MD [address] [place] [address] UROLOGY 05/03/19 Yvan Jaime MD [address] [place] [address] Surgeon NEUROLOGICAL SURGERY 05/03/19 documented as of this encounter
--- OUTSIDE RECORDS SUMMARY | 2024-07-18 17:15 | XMS_ITS | Referral Summary ---
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
--- OUTSIDE RECORDS SUMMARY | 2024-07-18 17:15 | XMS_ITS | Data Portability ---
Author Organization [facility]BAL[facility] Claudia POLLOCK Address [address] [place] [address] Assessment No assessment recorded. Plan of Treatment Reminders Order Date Submit Date Provider Last Modified By Organization Details Last Modified Time Details Appointments None recorded. Lab rapid strep group A, throat 2016 017 [facility] In-Office Order, Internal Use Only DO Not Attach Compendium DO Not Attach Compendium, Do Not Delete/merge, [id number] 7 17:07:24 HbA1c (hemoglobi n A1c), blood 2015 016 DBA_PATCH_ [id number] [facility], [address], [address], [place], [address], 6 04:31:39 glucose tolerance test, post-75G, 3 specimens 2015 016 DBA_PATCH_ [id number] [facility], [address], [address], [place], [address], 6 04:31:39 unlisted lab - vitamin D, 25-hydroxy , total - [facility] 2015 016 JENNIFER [facility], [address], [address], [place], [address], 6 13:11:27 CBC w/ manual diff 2015 016 [email or web address] [facility], [address], [address], [place], [address], 6 12:15:19 CMP, serum or plasma 2015 016 [email or web address] [facility], [address], [address], [place], [address], 6 12:15:19 lipid panel, serum 2015 016 [email or web address] [facility], [address] [facility] [address], [address], [place], [address], 6 12:15:19 unlisted lab - compliance drug analysis, ur 2015 016 JENNIFER [facility], [address] [facility], [address], [place], [address], 6 15:09:40 Referral laryngolog y referral - Please call patient to schedule 2015 016 [email or web address] Not available 7 07:56:45 audiologis t referral - Please call patient to schedule 2015 [email or web address], [place], [address], 7 13:04:47 plastic surgeon referral - Rt thigh lump/ PATIENT TO SCHEDULE 2015 016 [email or web address] Not available 7 13:17:06 gastroente rologist referral - P:leae call patient to schedujle 2015 016 [email or web address] Jack Griffin MD, [address] [place], [address], 7 10:10:31 Procedures colonoscop y screening (PROC) 2015 016 DBA_PATCH_ [id number] Not available 6 04:32:07 Surgeries None recorded. Imaging MAMMO, screening, digital, bilateral 2015 016 DBA_PATCH_ [id number] [facility] ([facility]), [address] [place], [address], 6 04:31:59 MAMMO, screening, bilateral 2015 016 [facility] ([facility]), [address] [place], [address], 7 10:29:25 bone density, dual photon absorptiom etry 2015 016 [facility] ([facility] Sched[facility]), [address] [place], [address], 6 15:34:00 Medication Orders sertraline 100 mg tablet 2016 017 [facility] #62597, [address], [place], [id number], 7 17:07:30 nystatin 100,000 unit/mL oral suspension 2016 017 [facility] #03060, [address] [facility], [place], [place], [id number], 7 17:07:31 calcium 600 mg (as carbonate) -vitamin D3 10 mcg (400 unit) capsule 2016 017 [facility], [address] [facility], [place], [place], [id number], 7 16:54:36 Ventolin HFA 90 mcg/actuat ion aerosol inhaler 2016 017 INTERFACE [facility] #47198, [address] [facility], [place], [place], [id number], 7 16:22:52 Symbicort 160 mcg-4.5 mcg/actuat ion HFA aerosol inhaler 2016 017 [facility], [address], [place], [place], [id number], 7 16:22:51 albuterol sulfate 2.5 mg/3 mL (0.083 %) solution for nebulizati on 2016 017 [facility]90[facility], [address], [place], [place], [id number], 7 16:22:52 calcium 600 mg (as carbonate) -vitamin D3 10 mcg (400 unit) capsule 2015 016 [facility]BA[facility]PATCH_ [id number] [facility], [address], [place], [place], [id number], 6 04:31:45 Patient TargetsNo targets recorded. Patient Instructions Encounter Date Encounter Id Patient Instructions Last Modified By Organization Details Last Modified Time 01/21/2016 [id number] deciding about using medicines to quit smoking [facility] Not available 01/22/2016 15:28:08 Quitting Tobacco : Care Instructions [facility] Not available 01/22/2016 15:28:09 chronic obstructive pulmonary disease (COPD): care instructions [facility] Not available 01/22/2016 15:28:08 learning about copd and how to prevent lung infections [facility] Not available 01/22/2016 15:28:08 03/21/2016 [id number] mammogram: about this test [facility] Not available 03/21/2016 17:27:52 deciding about using medicines to quit smoking [facility] Not available 03/21/2016 17:27:52 Quitting Tobacco : Care Instructions [facility] Not available 03/21/2016 17:27:52 chronic obstructive pulmonary disease (COPD): care instructions [facility] Not available 03/21/2016 17:27:52 learning about copd and how to prevent lung infections [facility] Not available 03/21/2016 17:27:52 learning about high blood sugar [facility] Not available 03/21/2016 17:31:23 05/28/2016 [id number] osteoporosis: care instructions [facility] Not available 05/28/2016 16:22:51 deciding about using medicines to quit smoking [email or web address] Not available 05/28/2016 16:22:51 Quitting Tobacco : Care Instructions [email or web address] Not available 05/28/2016 16:22:51 chronic obstructive pulmonary disease (COPD): care instructions jhsieh Not available 05/28/2016 16:22:51 learning about copd and how to prevent lung infections [email or web address] Not available 05/28/2016 16:22:51 07/01/2016 [id number] deciding about using medicines to quit smoking strice Not available 07/02/2016 09:50:36 Quitting Tobacco : Care Instructions strice Not available 07/02/2016 09:50:36 chronic obstructive pulmonary disease (COPD): care instructions strice Not available 07/02/2016 09:50:36 learning about copd and how to prevent lung infections strice Not available 07/02/2016 09:50:36 11/24/2016 [id number] deciding about using medicines to quit smoking [email or web address] Not available 11/25/2016 11:07:05 Quitting Tobacco : Care Instructions [email or web address] Not available 11/25/2016 11:07:05 chronic obstructive pulmonary disease (COPD): care instructions [email or web address] Not available 11/25/2016 11:07:05 learning about copd and how to prevent lung infections [email or web address] Not available 11/25/2016 11:07:05 Reason for Referral [...] [facility], Encounter Date: 03/21/2016 [employer] Referral for Hea ring disorder Please call [...] DO Not Attach Compendium, Do Not Delete/merge, [id number] 11/24/2016 16:23:51 01/21/20 16 01/26/2016 drug scree [...] [place] [address] NG/MG CREAT POTEN TIAL SOURC ES OF [...] TAYLOR CONSU LTATI ON, PLEAS E CALL [phone]. ===== ===== ===== ===== ===== ===== ===== ===== ===== ===== ===== ===== ===== === Not Available [facility] [address], [place], [address], 01/26/2016 15:09:40 01/21/20 16 01/26/2016 drug scree n, urine pdf . Not Available [facility] [address], [place], [address], 01/26/2016 15:09:40 02/04/20 16 02/05/2016 CBC w/ manua l diff WBC 5.7 x10e3 /uL 3.4-10 .8 Not Available [facility] ([facility]) [address] [facility], [place], [address], 02/07/2016 13:11:25 02/04/20 16 02/05/2016 CBC w/ manua l diff RBC 4.19 x10e6 /uL 3.77-5 .28 Not Available [facility] ([facility]) [address] [facility], [place], [address], 02/07/2016 13:11:25 02/04/20 16 02/05/2016 CBC w/ manua l diff hemoglobin 12.7 g/dL 11.1-1 5.9 Not Available [facility] ([facility]) [address] [facility], [place], [address], 02/07/2016 13:11:25 02/04/20 16 02/05/2016 CBC w/ manua l diff hematocrit 38.8 % 34.0-4 6.6 Not Available [facility] ([facility]) [address] [place], [address], 02/07/2016 13:11:25 02/04/20 16 02/05/2016 CBC w/ manua l diff MCV 93 fL 79-97 Not Available [facility] ([facility]) [address] [place], [address], 02/07/2016 13:11:25 02/04/20 16 02/05/2016 CBC w/ manua l diff MCH 30.3 pg 26.6-3 3.0 Not Available [facility] ([facility]) [address] [place], [address], 02/07/2016 13:11:25 02/04/20 16 02/05/2016 CBC w/ manua l diff MCHC 32.7 g/dL 31.5-3 5.7 Not Available [facility] ([facility]) [address] [facility], [place], [address], 02/07/2016 13:11:25 02/04/20 16 02/05/2016 CBC w/ manua l diff RDW 14.2 % 12.3-1 5.4 Not Available [facility] ([facility]) [address] [place], [address], 02/07/2016 13:11:25 02/04/20 16 02/05/2016 CBC w/ manua l diff platelets 148 x10e3 /uL 150-37 9 below low normal Not Available [facility] ([facility]) [address] [place], [address], 02/07/2016 13:11:25 02/04/20 16 02/05/2016 CBC w/ manua l diff neutrophils 75 % Not Available [facility] ([facility]) [address] [place], [address], 02/07/2016 13:11:25 02/04/20 16 02/05/2016 CBC w/ manua l diff lymphs 16 % Not Available [facility] ([facility]) [address] [place], [address], 02/07/2016 13:11:25 02/04/20 16 02/05/2016 CBC w/ manua l diff monocytes 8 % Not Available [facility] ([facility]) [address] [place], [address], 02/07/2016 13:11:25 02/04/20 16 02/05/2016 CBC w/ manua l diff eos 1 % Not Available [facility] ([facility]) [address] [place], [address], 02/07/2016 13:11:25 02/04/20 16 02/05/2016 CBC w/ manua l diff basos 0 % Not Available [facility] ([facility]) [address] [place], [address], 02/07/2016 13:11:25 02/04/20 16 02/05/2016 CBC w/ manua l diff immature cells HAND UMBRELLA TIPPER Not Available [facility] ([facility]) [address] [place], [address], 02/07/2016 13:11:25 02/04/20 16 02/05/2016 CBC w/ manua l diff neutrophils absolute 4.3 x10e3 /uL 1.4-7. 0 Not Available [facility] ([facility]) [address] [place], [address], 02/07/2016 13:11:25 02/04/20 16 02/05/2016 CBC w/ manua l diff lymphs (absolute) 0.9 x10e3 /uL 0.7-3. 1 Not Available [facility] ([facility]) [address] [place], [address], 02/07/2016 13:11:25 02/04/20 16 02/05/2016 CBC w/ manua l diff monocytes(ab solute) 0.5 x10e3 /uL 0.1-0. 9 Not Available [facility] ([facility]) [facility] [place], [address], 02/07/2016 13:11:25 02/04/20 16 02/05/2016 CBC w/ manua l diff eos (absolute value) 0.1 x10e3 /uL 0.0-0. 4 Not Available [facility] ([facility]) [address] [facility], [place], [address], 02/07/2016 13:11:25 02/04/20 16 02/05/2016 CBC w/ manua l diff baso(absolut e) 0.0 x10e3 /uL 0.0-0. 2 Not Available [facility] ([facility]) [address] [facility], [place], [address], 02/07/2016 13:11:25 02/04/20 16 02/05/2016 CBC w/ manua l diff NRBC HAND UMBRELLA TIPPER Not Available [facility] ([facility]) [address] [facility], [place], [address], 02/07/2016 13:11:25 02/04/20 16 02/05/2016 CBC w/ manua l diff differential comment HAND UMBRELLA TIPPER Not Available [facility] ([facility]) [address] [facility], [place], [address], 02/07/2016 13:11:25 02/04/20 16 02/05/2016 CBC w/ manua l diff RBC comment RBC'S APPEAR NORMAL . normal Not Available [facility] ([facility]) [address] [facility], [place], [address], 02/07/2016 13:11:25 02/04/20 16 02/05/2016 CBC w/ manua l diff platelet comment ADEQUA TE adequa te Not Available [facility] ([facility]) [address] [facility], [place], [address], 02/07/2016 13:11:25 02/04/20 16 02/05/2016 CMP, serum or plasm a glucose, serum 115 mg/dL 65-99 above high normal Not Available [facility] ([facility]) [address] [facility], [place], [address], 02/07/2016 13:11:26 02/04/20 16 02/05/2016 CMP, serum or plasm a hemoglobin A1C 5.9 % 4.8-5. 6 above high normal PRE-D IABET ES: 5.7 - 6.4 DIABE ROSE: >6.4 GLYCE ARON CONTR OL FOR ADULT S WITH DIABE ROSE: <7.0 Not Available [facility] ([facility]) [address] [facility], [place], [address], 02/07/2016 13:11:26 02/04/20 16 02/05/2016 CMP, serum or plasm a BUN 8 mg/dL 8-27 Not Available [facility] ([facility]) [address] [place], [address], 02/07/2016 13:11:26 02/04/20 16 02/05/2016 CMP, serum or plasm a creatinine, serum 0.85 mg/dL 0.57-1 .00 Not Available [facility] ([facility]) [address] [place], [address], 02/07/2016 13:11:26 02/04/20 16 02/05/2016 CMP, serum or plasm a eGFR if nonafricn AM 74 mL/mi n/1.7 3 >59 Not Available [facility] ([facility]) [address] [place], [address], 02/07/2016 13:11:26 02/04/20 16 02/05/2016 CMP, serum or plasm a eGFR if africn AM 85 mL/mi n/1.7 3 >59 Not Available [facility] ([facility]) [address] [place], [address], 02/07/2016 13:11:26 02/04/20 16 02/05/2016 CMP, serum or plasm a BUN/creatini ne ratio 9 11-26 below low normal Not Available [facility] ([facility]) [address] [place] [address], [address], 02/07/2016 13:11:26 02/04/20 16 02/05/2016 CMP, serum or plasm a sodium, serum 142 mmol/ L 134-14 4 EFF ECTIV E OCTOB ER 2015 THE REFER ENCE INTER NIRMALA FOR SARAH Rodriguez, SERUM WILL BE LYON ING TO: 136 - 144 Not Available [facility] ([facility]) [address] [place], [address], 02/07/2016 13:11:26 02/04/20 16 02/05/2016 CMP, serum [...] YEAR 3.5 - 5.2 Not Available [facility] ([facility]) [address] [place], [address], 02/07/2016 13:11:26 02/04/20 16 02/05/2016 CMP, serum or plasm a chloride, serum 103 mmol/ L 97-108 EFF ECTIV E OCTOB ER 2015 THE REFER ENCE INTER NIRMALA FOR CHLOR SAHIL, SERUM WILL BE LYON ING TO: 97 - 106 Not Available [facility] ([facility]) [address] [place], [address], 02/07/2016 13:11:26 02/04/20 16 02/05/2016 CMP, serum or plasm a carbon dioxide, total 24 mmol/ L 18-29 Not Available [facility] ([facility]) [address] [place], [address], 02/07/2016 13:11:26 02/04/20 16 02/05/2016 CMP, serum or plasm a calcium, serum 8.3 mg/dL 8.7-10 .3 below low normal Not Available [facility] ([facility]) [address] [place], [address], 02/07/2016 13:11:26 02/04/20 16 02/05/2016 CMP, serum or plasm a protein, total, serum 6.2 g/dL 6.0-8. 5 Not Available [facility] ([facility]) [address] [facility], [place], [address], 02/07/2016 13:11:26 02/04/20 16 02/05/2016 CMP, serum or plasm a albumin, serum 3.8 g/dL 3.6-4. 8 Not Available [facility] ([facility]) [address] [place], [address], 02/07/2016 13:11:26 02/04/20 16 02/05/2016 CMP, serum or plasm a globulin, total 2.4 g/dL 1.5-4. 5 Not Available [facility] ([facility]) [address] [place], [address], 02/07/2016 13:11:26 02/04/20 16 02/05/2016 CMP, serum or plasm a A/G ratio 1.6 1.1-2. 5 Not Available [facility] ([facility]) [address] [place] [address], [place], [address], 02/07/2016 13:11:26 02/04/20 16 02/05/2016 CMP, serum or plasm a bilirubin, total <0.2 mg/dL 0.0-1. 2 Not Available [facility] ([facility]) [address] [place], [address], 02/07/2016 13:11:26 02/04/20 16 02/05/2016 CMP, serum or plasm a alkaline phosphatase, S 97 IU/L 39-117 Not Available [facility] ([facility]) [address] [place] [address], [address], 02/07/2016 13:11:26 02/04/20 16 02/05/2016 CMP, serum or plasm a AST (SGOT) 15 IU/L 0-40 Not Available [facility] ([facility]) [address] [place], [address], 02/07/2016 13:11:26 02/04/20 16 02/05/2016 CMP, serum or plasm a ALT (SGPT) 15 IU/L 0-32 Not Available [facility] ([facility]) [address] [place], [address], 02/07/2016 13:11:26 02/04/20 16 02/05/2016 lipid panel , serum cholesterol, total 201 mg/dL 100-19 9 above high normal Not Available [facility] ([facility]) [address] [place], [address], 02/07/2016 13:11:26 02/04/20 16 02/05/2016 lipid panel , serum triglyceride s 91 mg/dL 0-149 Not Available [facility] ([facility]) [address] [place], [address], 02/07/2016 13:11:26 02/04/20 16 02/05/2016 lipid panel , serum HDL cholesterol 72 mg/dL >39 ACCOR DING TO ATP-I II GUIDE LINES , HDL-C >59 MG/DL IS CONSI DERED A NEGAT CAMPOS RISK FACTO R FOR CHD. Not Available [facility] ([facility]) [address] [place], [address], 02/07/2016 13:11:26 02/04/20 16 02/05/2016 lipid panel , serum VLDL cholesterol taylor 18 mg/dL 5-40 Not Available [facility] ([facility]) [address] [place], [address], 02/07/2016 13:11:26 02/04/20 16 02/05/2016 lipid panel , serum LDL cholesterol calc 111 mg/dL 0-99 above high normal Not Available [facility] ([facility]) [address] [place], [address], 02/07/2016 13:11:26 02/04/20 16 02/05/2016 lipid panel , serum comment: HAND UMBRELLA TIPPER Not Available [facility] ([facility]) [address] [place], [address], 02/07/2016 13:11:26 02/04/20 16 02/05/2016 lipid panel , serum LDL/HDL ratio 1.5 ratio _unit s 0.0-3. 2 LDL/H DL RATIO MEN WOMEN 1/2 AVG.R ISK 1.0 1.5 AVG.R ISK 3.6 3.2 2X AVG.R ISK 6.2 5.0 3X AVG.R ISK 8.0 6.1 Not Available [facility] ([facility]) [address] [place], [address], 02/07/2016 13:11:26 02/04/20 16 02/07/2016 vitam in D, 25-hy droxy , total , serum vitamin D, 25-hydroxy, serum 37 NG/mL REFER ENCE RANGE : ALL AGES: TARGE T LEVEL S 30 - 100 Not Available [facility] [address] [place] [address], [address], 02/07/2016 13:11:27 04/02/20 16 04/03/2016 gluco se slava ance test, post- 75G, 3 speci mens glucose, fasting 92 mg/dL 65-99 Not Available [facility] ([facility]) [address] [place], [address], 04/03/2016 06:12:40 04/02/20 16 04/03/2016 gluco se slava ance test, post- 75G, 3 speci mens glucose, 1/2 hour TNP TEST NOT PERFO RMED Not Available [facility] ([facility]) [address] [place], [address], 04/03/2016 06:12:40 04/02/20 16 04/03/2016 gluco se slava ance test, post- 75G, 3 speci mens glucose, 1 hour 189 mg/dL 65-199 Not Available [facility] ([facility]) [address] [place], [address], 04/03/2016 06:12:40 04/02/20 16 04/03/2016 gluco se slava ance test, post- 75G, 3 speci mens glucose, 1 1/2 hour TNP TEST NOT PERFO RMED Not Available [facility] ([facility]) [address] [place], [address], 04/03/2016 06:12:40 04/02/20 16 04/03/2016 gluco se slava ance test, post- 75G, 3 speci mens glucose, 2 hour 97 mg/dL 65-139 Not Available [facility] ([facility]) [address] [place], [address], 04/03/2016 06:12:40 04/02/20 16 04/03/2016 gluco se slava ance test, post- 75G, 3 speci mens glucose, 3 hour TNP TEST NOT PERFO RMED Not Available [facility] ([facility]) [address] [place] [address], [address], 04/03/2016 06:12:40 04/02/20 16 04/03/2016 gluco se slava ance test, post- 75G, 3 speci mens glucose, 4 hour TNP TEST NOT PERFO RMED Not Available [facility] ([facility]) [address] [place], [address], 04/03/2016 06:12:40 04/02/20 16 04/03/2016 gluco se slava ance test, post- 75G, 3 speci mens glucose, 5 hour TNP TEST NOT PERFO RMED Not Available [facility] ([facility]) [address] [place], [address], 04/03/2016 06:12:40 04/02/20 16 04/03/2016 gluco se slava ance test, post- 75G, 3 speci mens glucose, 6 hour TNP TEST NOT PERFO RMED Not Available [facility] ([facility]) [address] [facility], [place], [address], 04/03/2016 06:12:40 04/02/20 16 04/03/2016 HbA1c (hemo globi n A1c), blood hemoglobin A1C 6.0 % 4.8-5. 6 above high normal PRE-D IABET ES: 5.7 - 6.4 DIABE ROSE: >6.4 GLYCE ARON CONTR OL FOR ADULT S WITH DIABE ROSE: <7.0 Not Available [facility] ([facility]) [address] [facility], [place], [address], 04/03/2016 06:12:41 01/29/20 16 01/28/2016 bone densi ty, dual photo n absor ptiom etry No observ ation record ed. [email or web address] [facility] [address] [place], [address], 08/20/2016 09:43:33 02/21/20 16 02/21/2016 US, kidne y No observ ation record ed. [email or web address] Not Available 2015 15:40:26 05/21/19 17 05/21/2016 MRI, brain + brain stem, w/wo contr ast No observ ation record ed. strice [facility] [address] [place], [address], 07/03/2016 11:40:04 05/21/19 17 05/21/2016 MRI, cervi taylor spine , w/o contr ast No observ ation record ed. [email or web address] [facility] (Imaging) [address] [place], [address], 05/29/2016 07:28:18 06/03/19 17 06/03/2016 MAMMO , scree uziel, bilat eral No observ ation record ed. [email or web address] Not Available 07/02 15:29:02 06/27/19 17 06/27/2016 XR, chest , 2 view No observ ation record ed. [facility] (Imaging) [address] [place], [address], 07/16/2016 13:29:36 07/04/19 17 6 minut e walk test* No observ ation record ed. [facility] ([facility]) [address] [place], [address], 07/04/2016 12:37:03 Result Notes None recorded. Problems Name Problem SNOMED Code Status Onset Date Resolution Date Notes Provider Name and Address Organization Details Recorded Time Chronic obstructive pulmonary disease 48791101 Active Milena Dos Santos MD Attn: Wilmer ubllock,[address] [facility], [place], [place], [address] [place] [address] 2, [facility] 6 15:15:05 Tobacco dependence syndrome 76154343 Active Milena Dos Santos MD Attn: Wilmer bullock,[address] [facility], [place], [place], [address] [place] [address] 2, [facility] 6 15:15:05 Chronic low back pain 071158449 Active Milena Dos Santos MD Attn: Wilmer bullock,[address] [facility], [place], [address] [place] [address] 2, [facility] 6 15:15:05 Esophageal dysphagia 41229808 Active Milena Dos Santos MD Attn: Wilmer bullock,[address] [facility], [place], [place], [address] [place] [address] 2, [facility] 6 15:15:05 Dystonia 26806019 Active Milena Dos Santos MD Attn: Wilmer bullock,[address] [place], [place], [address] [place] [address] 2, [facility] 6 15:15:05 Osteoporosis [id number] Diandra Gonzalez RN null, [facility] 6 15:14:16 Problem Notes None recorded. Procedures Surgical History Date Name Laterality Status Provider Name and Address Organization Details Recorded Time 05/04/19 15 Mammogram screening completed Judd Valentine MA [facility] 01/21/2016 14:25:00 05/04/19 14 Diagnostic colonoscopy completed Judd Valentine MA [facility] 01/21/2016 14:25:00 05/04/19 09 Screening pap smear by phys completed Judd Valentine MA [facility] 01/21/2016 14:25:00 Dilation and Curettage completed Judd Valentine MA [facility] 01/21/2016 14:25:00 Tonsillectomy completed Judd Valentine MA [facility] 01/21/2016 14:25:00 Hysterectomy completed Judd Valentine MA [facility] 01/21/2016 14:25:00 Appendectomy completed Judd Valentine MA [facility] 01/21/2016 14:25:00 Imaging Results Imaging Date Name Status LastModified by Organization Details LastModified Time 01/28/2016 bone density, dual photon absorptiometry completed [email or web address] [facility] [address] [place], [address], 08/20/2016 09:43:33 02/21/2016 US, kidney completed [email or web address] Information no t available 03/12/2016 15:40:26 05/21/2016 MRI, brain + brain stem, w/wo contrast completed [facility] [address] [place], [address], 07/03/2016 11:40:04 05/21/2016 MRI, cervical spine, w/o contrast completed [email or web address] [facility] (Imaging) [address] [place], [address], 05/29/2016 07:28:18 06/03/2016 MAMMO, screening, bilateral completed [email or web address] Information not available 07/14/2016 15:29:02 06/27/2016 XR, chest, 2 view completed [facility] (Imaging) [address] [place], [address], 07/16/2016 13:29:36 07/03/2016 6 minute walk test* completed [facility] ([facility] Scheduling) [address], [place], [address], 07/04/2016 12:37:03 Procedure Notes None recorded. Medical Equipment None Reported. Allergies Allergen ID Allergen Name Allergen Category Reaction Reaction Severity Criticality Documentation Date Start Date Code Code System Note Provider Name and Address Organization Details Recorded Time 28401 Product containin g penicilli n (product) medicatio n Not available Not available Not available 01/21/2016 11170 8001 SNOMED Not Available Not Available Not Available 92976 Demerol medicatio n itching Not available Not available 01/21/2016 15070 1 RxNorm Not Available Not Available Not [...] propionate 50 mcg/actuatio n nasal spray,suspen haleigh Fletcher 1 spray every day by intranasal route. [...] Updated DateTime 6 169.545 cm 71 /min 11744.3 14910 g 96 % 96 % 18.9 kg/m2 98.3 [degF] 144 mm[Hg] 70 mm[Hg] Judd Valentine MA [place] [facility] 6 14:25:00 Date Recorded Body height Body weight Body mass index (BMI) Body temperature Oxygen saturation Oxygen saturation in Arterial blood by Pulse oximetry Heart rate Systolic blood pressure Diastolic blood pressure Provider Name and Address Organization Details Last Updated DateTime 6 169.545 cm 68212.7 1 g 19.3 kg/m2 98.3 [degF] 95 % 95 % 88 /min 104 mm[Hg] 60 mm[Hg] Judd Valentine [place] [facility] 6 16:32:19 Date Recorded Body height Body weight Body mass index (BMI) Body temperature Oxygen saturation Oxygen saturation in Arterial blood by Pulse oximetry Heart rate Systolic blood pressure Diastolic blood pressure Provider Name and Address Organization Details Last Updated DateTime 7 169.545 cm 71128.4 8 g 19.8 kg/m2 97.9 [degF] 96 [...] Details Last Updated DateTime 7 169.545 cm 09705.7 g 19.3 kg/m2 98.1 [degF] 92 % [...] Updated DateTime 7 169.545 cm 20.5 kg/m2 75505.2 9 g 97.7 [degF] 95 % 95 [...] (GERD) Y Kidney or Bladder Problems Y COPD Y Allergies Y Osteoporosis Y Gynecological HistoryNo gynecological history recorded. Obstetrics History GPAL:G 0 P 0 0 0 0 Immunizations Vaccine Type Date Status Note Provider Nam e and Address Organization Details Recorded Time COVID-19 vaccine, vector-nr, rS-Ad26, PF, 0.5 mL 07/09/2020 completed Nato Maria null, [place] [facility] 11/07/2020 16:13:26 pneumococcal, unspecified formulation 05/04/2005 completed Judd Valentine MA null, [place] [facility] 01/21/2016 14:25:00 Past Encounters Encounter ID Performer Location Encounter Start Date Encounter Closed Date Diagnosis/Indication Diagnosis SNOMED-CT Code Diagnosis ICD10 Code Diagnosis Note [id number] [facility] (Adult Med) [address] [place] [address] [id number] 0 01/21/2016 13:44:23 01/21/2016 18:02:47 Chronic obstructive pulmonary disease 02458104 J44.9 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 Chronic low back pain 27 5379540 M54.5 Esophageal dysphagia 408 69888 R13.19 Adult heal th examination 830897200 Z00.00 Screening for osteoporosis 883586949 Z13.820 Dystonia 71618152 G24.9 [id number] MD Asif Colindres (Adult Med) [address] [place] [address] [id number] 0 03/21/2016 15:52:50 03/21/2016 17:46:52 Chronic obstructive pulmonary disease 83176285 J44.9 Tobacco de pendence syndrome 06160773 F17.290 Osteopenia 620025270 M85 .9 Mass of skin 063450548 R 22.9 Screening for malignant neoplasm of colon 932306240 Z12.11 Hearing disorder 9268548 05 H91.93 Screening mammography 24 526915 Z12.31 Hyperglycemia 78706429 R 73.9 [id number] MD Asif Colindres (Adult Med) [address] [place] [address] [phone] 05/28/2016 15:44:26 05/28/2016 16:35:56 Chronic obstructive pulmonary disease 21660601 J44.9 Tobacco de pendence syndrome 79221059 F17.290 Dystonia 40800483 G24.9 She has been seen by a neurologis t on the rgular basis. Chronic low back pain 27 4381781 M54.5 Esophageal dysphagia 408 56122 R13.19 She had upper EGD scopic ex. by a GI specialist and was dilated and recently had unremarkab le colonoscop y ex by GI specialist as well. Osteoporosis 28434926 M8 1.0 Osteopenia 853835664 M85 .9 [id number] MD Asif Colindres (Adult Med) [address] [place] [phone] 07/01/2016 15:40:48 07/01/2016 18:04:54 Chronic obstructive pulmonary disease 33376758 J44.9 Will have nurse arrange the 6 minutes walking test to see if she is qualified for the home oxygen, Jennifer won't give such choice on the computer. Tobacco de pendence syndrome 87073013 F17.290 She is on the nicotine patch for quitting cigarettes . [id number] [facility] [address] [place] [phone] 11/24/2016 14:30:40 11/24/2016 17:09:34 Pharyngitis 341376836 J02.9 Thrash. Chronic ob structive pulmonary disease 92299162 J44.9 Will have nurse arrange the 6 minutes walking test to see if she is qualified for the home oxygen, Jennifer won't give such choice on the computer. Tobacco de pendence syndrome 72301494 F17.290 She is on the nicotine patch for quitting cigarettes . Multiple joint pain 3567 8005 M25.50 Had been on sertraline . Chronic low back pain 27 1958134 M54.5 Same as sertraline . Lumbar radiculopathy 128 385718 M54.16 Health Concerns Section Related Observation LastModified by Organization Detai ls LastModified Time None Recorded Concern Status LastModified by Organization Details LastModified Time None Recorded Advance Directives Directive None Recorded Payers Encounter Date Sequence Insurance Name Policy Number Policy Granados Covered Member ID Granados Member ID Guarantor Name 01/21/2016 1 [place] Melyssa A [place] [id number] A M[place]ssa [place] 01/21/2016 2 [place] [facility] M[place]ssa [place] [id number] Melyssa [place] 03/21/2016 1 [place] [id number] A M[place]ssa [place] 03/21/2016 2 [place] [facility] Melyssa [place] [id number] Melyssa [place] 05/28/2016 1 [place] A [place] [id number] A M[place]ssa [place] 05/28/2016 2 [place] [facility] M[place]ssa [place] [id number] Melyssa [place] 07/01/2016 1 [place] [id number] A M[place]ssa [place] 07/01/2016 2 [place] [facility] Melyssa [place] [id number] Melyssa [place] 11/24/2016 1 [place] A [place] [id number] A Melyssa [place] Notes Date Note Type Note [...] Milena Dos Santos MD Attn: Accounting,[address] [place], [address], [facility] 01/21/2016 15:15:32 03/21/2016 text/html She has gone to GI specialist for dilatation of esophageal stricture, her food regurgitaion has resolved and no more aspiration /or pneumonia and has gained weight after the improving appetite and oral intake but still smokes cigarettes. Milena Dos Santos MD Attn: Accounting[address] [facility], [place], [address], [facility] 03/21/2016 17:39:07 11/24/2016 text/html She is happy abo ut that her ears can hear well again. and she had benign lump removed on her right thigh, had seen GI doctor for her esophageal dysphagia, still smokes cigarettes , using inhalers, chronic throat sore . Allergic to penicillins and demerol. Milena Dos Santos MD Attn: Accounting[address] , [place], [address], [facility] 11/24/2016 17:07:30 OBGyn Episode No OBEpisode recorded.
--- OUTSIDE RECORDS SUMMARY | 2024-07-18 17:16 | XMS_ITS | Clinical Summary ---
Author Organization [facility] Address [address] [place] [address] Care Team Providers Care Fashion Editor Name Role Phone Tommy King DO Primary Care Provider [phone] Source Comments [facility],non-owned Affiliates and Associated Physician Practices is amultiple site organization consisting of ambulatory clinics and hospital sitesin [place], [place], [place] and [place]. This disclosure is being madepursuant to the Care Everywhere program and may not contain all information available regarding this patient. Last updated 18.[facility] Allergies Active Allergy Reactions Criticality [...] fluticasone propionate (FLONASE) 50 MCG/ACT nasal spray [place] 2 sprays into the nose once daily [...] 81 mg by mouth once daily Active Nfvnwlygydqboqm-ZD-LY -APAP (ROBITUSSIN COLD/COUGH/FLU PO) Take 13.5 mg by mouth Active clotrimazole-betameth asone (LOTRISONE) 1-0.05 % cream APPLY TOPICALLY TO THE AFFECTED AREA TWICE DAILY 04/24/2021 Active potassium citrate (UROCIT K 10) 10 MEQ (1080 MG) tablet 06/10/2021 Active doxycycline monohydrate 100 MG tablet TAKE 1 TABLET BY MOUTH DAILY FOR 10 DAYS 05/06/2021 Active xbasojzw-ekrggrotb-bh xameth (MAXITROL) ophthalmic suspension 07/30/2021 Act amadeo [...] 36.8 C (98.3 F) 06/12/2021 10:53 AM CLINICAL MENTAL HEALTH COUNSELOR Respiratory Rate 18 05/23/2021 12:51 PM CLINICAL MENTAL HEALTH COUNSELOR Oxygen Saturation 91% 08/05/2021 9:59 AM CDT [...] complete this topic MENINGOCOCCAL (Group B) VACCINE SHARED DECISION-MAKING Aged Out No longer eligible based on patient's age to complete this topic MENINGOCOCCAL GROUPS A/C/Y/W VACCINE Aged Out No longer eligible based on patient's age to complete this topic Medical Devices Implanted Type Area Hospice Educator Device Identifier Shelf Expiration Date Model / Serial / Lot Lead Nrstm 60cm Penta 3mm Pdl 16 [facility] - [id number] Implanted:Qty: 1 on 05/23/2021 by Esau Rose MD at [facility] Back [employer] 10/19/2022 [id number] / [id number] / Slnt Dura Duraseal Pg Trilysine Amine 5 Implanted:Qty: 1 on 05/23/2021 by Esau Rose MD at [facility] Back Integra 1stdibsciGenePeeks Erendira [id number] / / [id number] Gntr Nrstm 1.95inx2.19in Proclaim Elt - [id number] Implanted:Qty: 1 on 05/23/2021 by Esau Rose MD at [facility] Left: Back [employer] 03/26/2023 3660 / [id number] / Care Teams Fashion Editor Relationship Specialty Start Date End Date Tommy King DO PCP - General Internal Medicine 04/23/21
--- OUTSIDE RECORDS SUMMARY | 2024-07-18 17:16 | XMS_ITS | Patient Health Summary ---
Author Organization [facility] Address [address] [facility] [place] [address] Care Team Providers Care Grinder Chipper Name Role Phone Tommy King DO Primary Care Provider [phone] Note from [facility],non-owned Affiliates and Associated Physician Practices is amultiple site organization consisting of ambulatory clinics and hospital sitesin [place], [place], [place] and [place]. This disclosure is being madepursuant to the Care Everywhere program and may not contain all information available regarding this patient. Last updated 18.[facility] Allergies * Meperidine(Rash) -Medium Criticality * Penicillins(Anaphylaxis) -High Criticality * Sulfamethoxazole W-Trimethoprim(Other) Medications * Be aware that medications may not be up to date on this document. Always verify current medications with the patient. * metoprolol [...] fluticasone propionate (FLONASE) 50 MCG/ACT nasal spray [place] 2 sprays into the nose once daily [...] 81 mg by mouth once daily * Wmtgiijmlcvvsny-IS-MP-APAP (ROBITUSSIN COLD/COUGH/FLU PO) Take 13.5 mg by mouth * clotrimazole-betamethasone (LOTRISONE) 1-0.05 % cream(Started 04/24/2021) APPLY TOPICALLY TO THE AFFECTED AREA TWICE DAILY * potassium citrate (UROCIT K 10) 10 MEQ (1080 MG) tablet(Started 06/10/2021) * doxycycline monohydrate 100 MG tablet(Started 05/06/2021) TAKE 1 TABLET BY MOUTH DAILY FOR 10 DAYS * efwyfynw-hkgvcoook-yjndfikp (MAXITROL) ophthalmic suspension(Started 07/30/2021) Active Problems Problem [...] 36.8 C (98.3 F) 06/12/2021 10:53 AM PHOTOGRAPHIC PRINTER Respiratory Rate 18 05/23/2021 12:51 PM PHOTOGRAPHIC PRINTER Oxygen Saturation 91% 08/05/2021 9:59 AM CDT Inhaled Oxygen Concentration - - Weight 56.7 kg (125 lb) 08/05/2021 9:59 AM CDT Height 167.6 cm (5' 6 ) 08/05/2021 9:59 AM CDT Body Mass Index 20.18 08/05/2021 9:59 AM CDT Medical Devices Implanted Type Area Orchestra Leader Device Identifier Shelf Expiration Date Model / Serial / Lot Lead Nrstm 60cm Penta 3mm Pdl 16 [facility] - [id number] Implanted:Qty: 1 on 05/23/2021 by Esau Rose MD at [facility] Back [employer] 10/19/2022 [id number] / [id number] / Slnt Dura Duraseal Pg Trilysine Amine 5 Implanted:Qty: 1 on 05/23/2021 by Esau Rose MD at [facility] Back [employer] Erendira [id number] / / [id number] Gntr Nrstm 1.95inx2.19in Proclaim Elt - [id number] Implanted:Qty: 1 on 05/23/2021 by Esau Rose MD at [facility] Left: Back [employer] 03/26/2023 3660 / [id number] / Procedures * CARDIAC RHYTHM STRIP ORDER(Performed [...] CARDIAC RHYTHM STRIP ORDER (05/27/2021 8:42 PM PHOTOGRAPHIC PRINTER) Narrative 05/27/2021 8:42 PM PHOTOGRAPHIC PRINTER Ordered by an unspecified provider. Scanned Document CARDIAC SERVICES ORD ERABLES * FL BRITTANY SURGERY (05/23/2021 9:00 AM PHOTOGRAPHIC PRINTER) Narrative [facility] - 05/23/2021 3:44 PM PHOTOGRAPHIC PRINTER For details of this study, please see the providers note. Esau Rose MD FLUOROSCOPY MICHELLE ORO [facility] [address] [place] [address] * ETT LINE PERFORMABLE (05/23/2021 8:04 AM PHOTOGRAPHIC PRINTER) Narrative Chanel De La Fuente APRN-CRNA - 05/23/2021 8:04 AM PHOTOGRAPHIC PRINTER Chanel De La Fuente APRN-CRNA 05/23/2021 8:04 AM Endotracheal Tube Placement: Patient Location: OR. Intubation Event Date/Time: 05/23/2021 7:42 AM Procedure: intubation ([id number]). Procedure Section: Sedation: under general anesthesia. Indications [...] ORDERABLES * EKG 12-LEAD (04/23/2021 1:53 PM PHOTOGRAPHIC PRINTER) Ventricular Rate 73 BPM [facility] Atrial Rate 73 BPM [facility] P-R Interval 152 ms [facility] QRS Duration ms 82 ms [facility] Q-T Interval ms 404 ms [facility] QTC Calculation (Bezet) 445 ms [facility] Calculated P [place] 79 degrees [facility] Calculated R [place] 49 degrees [facility] Calculated T [place] 72 degrees [facility] Interpretation EKG NORMAL SINUS RHYTHM NORMAL ECG NO PREVIOUS ECGS AVAILABLE Confirmed by MD Sindhu, Myron ([id number]) on 04/24/2021 8:11:04 AM [facility] MUSE 04/23/2021 1:53 PM PHOTOGRAPHIC PRINTER 04/24/2021 8:11 AM PHOTOGRAPHIC PRINTER Esau Rose MD ECG ORDERABLES [facility] MUSE * XR CHEST 2VW (04/23/2021 1:21 PM PHOTOGRAPHIC PRINTER) Anatomical Region Laterality Modality Chest Radiographic Ines ging 04/23/2021 3:02 PM PHOTOGRAPHIC PRINTER Impressions 04/23/2021 3:02 PM PHOTOGRAPHIC PRINTER No acute process. Suspected emphysema. *Reading Radiologist: Maximo Mondragon on 04/23/2021 at 3:02 PM Narrative 04/23/2021 3:02 PM PHOTOGRAPHIC PRINTER CHEST PA AND LATERAL. HISTORY: Encounter for [...] NG ORDERABLES * PTT (04/23/2021 12:50 PM PHOTOGRAPHIC PRINTER) PTT 27.4 23.0 - 38.4 sec 04/23/2021 1:33 PM PHOTOGRAPHIC PRINTER [facility] Blood BLOOD SPECIMEN / Unknown Venipuncture / Unknown 04/23/2021 12:50 PM PHOTOGRAPHIC PRINTER 04/23/2021 1:09 PM PHOTOGRAPHIC PRINTER Narrative [facility] - 04/23/2021 1:33 PM PHOTOGRAPHIC PRINTER Heparin Therapeutic Range for PTT: 69.0 - 110.0 seconds. Esau Rose MD LAB - COAGULATIO N ORDERABLES [facility] [address] [place] [address] * PT-INR (04/23/2021 12:50 PM PHOTOGRAPHIC PRINTER) PT 12.9 12.1 - 14.8 sec 04/23/2021 1:33 PM PHOTOGRAPHIC PRINTER [facility] INR 1.0 0.9 - 1.1 04/23/2021 1:33 PM [facility] Blood BLOOD SPECIMEN / Unknown Venipuncture / Unknown 04/23/2021 12:50 PM PHOTOGRAPHIC PRINTER 04/23/2021 1:09 PM PHOTOGRAPHIC PRINTER [facility] LABORATORY - 04/23/2021 1:33 PM PHOTOGRAPHIC PRINTER Conventional Warfarin Anticoagulant Therapy: INR Reference Range: 2.0-3.0 Intensive Warfarin Anticoagulant Therapy: INR Reference Range: 2.5-3.5 Esau Rose MD LAB - COAGULATIO N ORDERABLES [facility] [address] [place] [address] * CBC WITH DIFFERENTIAL (04/23/2021 12:50 PM PHOTOGRAPHIC PRINTER) WBC 5.5 4.4 - 10.7 x10E9/L 04/23/2021 1:25 PM [facility] WBC Corrected 04/23/2021 1:25 PM [facility] RBC 4.51 3.80 - 5.20 x10E12/L 04/23/2021 1:25 PM [facility] Hemoglobin 13.3 12.0 - 15.6 gm/dL 04/23/2021 1:25 PM [facility] Hematocrit 41.0 35.9 - 45.5 % 04/23/2021 1:25 PM [facility] MCV 90.9 80.7 - 98.3 fl 04/23/2021 1:25 PM [facility] MCH 29.5 26.7 - 34.0 pg 04/23/2021 1:25 PM [facility] MCHC 32.4 30.8 - 35.9 gm/dL 04/23/2021 1:25 PM [facility] Platelet Count 178 153 - 416 x10E9/L 04/23/2021 1:25 PM [facility] RDW-CV 14.1 12.1 - 14.9 % 04/23/2021 1:25 PM [facility] MPV 10.0 9.4 - 12.9 fl 04/23/2021 1:25 PM [facility] Neutrophils % 67.7 44.0 - 73.0 % 04/23/2021 1:25 PM PHOTOGRAPHIC PRINTER [facility] Lymphocytes % 22.6 20.0 - 43.0 % 04/23/2021 1:25 PM PHOTOGRAPHIC PRINTER [facility] Monocytes % 7.6 5.0 - 13.0 % 04/23/2021 1:25 PM [facility] Eosinophils % 1.1 0.0 - 6.0 % 04/23/2021 1:25 PM PHOTOGRAPHIC PRINTER [facility] Basophils % 0.5 0.0 - 2.0 % 04/23/2021 1:25 PM PHOTOGRAPHIC PRINTER [facility] Immature Granulocytes 0.5 0 - 1 % 04/23/2021 1:25 PM PHOTOGRAPHIC PRINTER [facility] Neutrophil Absolute 3.73 2.01 - 7.14 x10E9/L 04/23/2021 1:25 PM PHOTOGRAPHIC PRINTER [facility] Lymphocytes Absolute 1.25 1.07 - 3.94 x10E9/L 04/23/2021 1:25 PM [facility] Monocytes Absolute 0.42 0.26 - 1.07 x10E9/L 04/23/2021 1:25 PM [facility] Eosinophils Absolute 0.06 0 - 0.47 x10E9/L 04/23/2021 1:25 PM [facility] Basophils Absolute 0.03 0 - 0.08 x10E9/L 04/23/2021 1:25 PM [facility] Immature Granulocytes Absolute 0.03 0.00 - 0.06 x10E9/L 04/23/2021 1:25 PM [facility] nRBC Auto 0 /100 WBC 04/23/2021 1:25 PM [facility] Blood BLOOD SPECIMEN / Unknown Venipuncture / Unknown 04/23/2021 12:50 PM PHOTOGRAPHIC PRINTER 04/23/2021 1:09 PM PHOTOGRAPHIC PRINTER Esau Rose MD LAB - HEMATOLOGY ORDERABLES [facility] [address] [place], [place] [id number] * (ABNORMAL) BASIC METABOLIC PANEL (CALCIUM TOTAL) (04/23/2021 12:50 PM PHOTOGRAPHIC PRINTER) Glucose 98 70 - 105 mg/dL 04/23/2021 1:48 PM PHOTOGRAPHIC PRINTER [facility] Sodium 138 136 - 145 mmol/L 04/23/2021 1:48 PM PHOTOGRAPHIC PRINTER [facility] Potassium 3.6 3.5 - 5.1 mmol/L 04/23/2021 1:48 PM [facility] Chloride 99 98 - 107 mmol/L 04/23/2021 1:48 PM PHOTOGRAPHIC PRINTER [facility] CO2 27 23 - 31 mmol/L 04/23/2021 1:48 PM [facility] Calcium 9.3 8.4 - 10.4 mg/dL 04/23/2021 1:48 PM [facility] Anion Gap 12 8 - 18 mmol/L 04/23/2021 1:48 PM [facility] BUN 9(L) 9.8 - 20.1 mg/dL 04/23/2021 1:48 PM [facility] Creatinine 0.82 0.57 - 1.11 mg/dL 04/23/2021 1:48 PM [facility] eGFR by MDRD >60 >60 mL/min/1.7 3m2 04/23/2021 1:48 PM [facility] eGFR by MDRD >60 >60 mL/min/1.7 3m2 04/23/2021 1:48 PM [facility] Blood BLOOD SPECIMEN / Unknown Venipuncture / Unknown 04/23/2021 12:50 PM PHOTOGRAPHIC PRINTER 04/23/2021 1:09 PM PHOTOGRAPHIC PRINTER Esau Rose MD LAB - CHEMISTRY ORDERABLES [facility] [address] [place] [address] Care Teams Grinder Chipper Relationship Specialty Start Date End Date Tommy King DO PCP - General Internal Medicine 04/23/21
--- OUTSIDE RECORDS SUMMARY | 2024-07-18 17:16 | XMS_ITS | Referral Summary ---
Author Organization [facility] Address [address] [place] [address] Care Team Providers Care Day Porter Name Role Phone Tommy King DO Primary Care Provider [phone] [phone] Source Comments [facility],non-owned Affiliates and Associated Physician Practices is amultiple site organization consisting of ambulatory clinics and hospital sitesin [place], [place], [place] and [place]. This disclosure is being madepursuant to the Care Everywhere program and may not contain all information available regarding this patient. Last updated 18.[facility] Allergies Active Allergy Reactions Criticality Noted Date [...] fluticasone propionate (FLONASE) 50 MCG/ACT nasal spray [place] 2 sprays into the nose once daily [...] 81 mg by mouth once daily Active Daslqbipyqhcbfb-EY-MH -APAP (ROBITUSSIN COLD/COUGH/FLU PO) Take 13.5 mg by mouth Active clotrimazole-betameth asone (LOTRISONE) 1-0.05 % cream APPLY TOPICALLY TO THE AFFECTED AREA TWICE DAILY 04/24/2021 Active potassium citrate (UROCIT K 10) 10 MEQ (1080 MG) tablet 06/10/2021 Active doxycycline monohydrate 100 MG tablet TAKE 1 TABLET BY MOUTH DAILY FOR 10 DAYS 05/06/2021 Active taayazdk-fmmqxssci-hq xameth (MAXITROL) ophthalmic suspension 07/30/2021 Act amadeo [...] 36.8 C (98.3 F) 06/12/2021 10:53 AM GRADUATE ADVISOR Respiratory Rate 18 05/23/2021 12:51 PM GRADUATE ADVISOR Oxygen Saturation 91% 08/05/2021 9:59 AM CDT Inhaled Oxygen Concentration - - Weight 56.7 kg (125 lb) 08/05/2021 9:59 AM CDT Height 167.6 cm (5' 6 ) 08/05/2021 9:59 AM CDT Body Mass Index 20.18 08/05/2021 9:59 AM CDT Plan of Treatment Not on file Medical Devices Implanted Type Area Auto Bench Mechanic Device Identifier Shelf Expiration Date Model / Serial / Lot Lead Nrstm 60cm Penta 3mm Pdl 16 [facility] - [id number] Implanted:Qty: 1 on 05/23/2021 by Esau Rose MD at [facility] Back [employer] 10/19/2022 [id number] / [id number] / Slnt Dura Duraseal Pg Trilysine Amine 5 Implanted:Qty: 1 on 05/23/2021 by Esau Rose MD at [facility] Back [employer] Erendira [id number] / / [id number] Gntr Nrstm 1.95inx2.19in [employer]claim Elt - [id number] Implanted:Qty: 1 on 05/23/2021 by Esau Rose MD at [facility] Left: Back [employer] 03/26/2023 3660 / [id number] / Care Teams Day Porter Relationship Specialty Start Date End Date Tommy King DO PCP - General Internal Medicine 04/23/21
== END 2024-07-18 14:36 | disposition home or self-care (01) ==
PROVIDERS: PCP Family Medicine; Visit Provider Physician Assistant
DX: J84.9 Interstitial pulmonary disease, unspecified (principal); J44.1 Chronic obstructive pulmonary disease with (acute) exacerbation
CPT/HCPCS: 71046; 87637

== ENCOUNTER 2024-08-02 17:41 | Inpatient (IN) | payer MEDICARE, MEDICAID, SELFPAY ==
[2024-08-02] VITALS (8 sets, daily range): BP systolic 105–138; BP diastolic 43–75; PULSE 71–85; RESP 17–26; TEMP 36.5–36.7; O2SAT 89–100; BMI 15.1
--- NOTE | ~2024-08-02 | XR_ITS ---
CHEST RADIOGRAPH CLINICAL HISTORY: sob . COMPARISON: 07/18/2024. Reference is made to prior CT examination of the chest dated 12/08/2023 TECHNIQUE: Single portable view of the chest. FINDINGS The cardiomediastinal silhouette is unremarkable. Redemonstration of coarse interstitial lung markings, chronic in appearance. Significant traction bronchiectasis is also noted. Redemonstration of calcified pleural plaques within the bilateral lung apices. IMPRESSION: Stable chronic interstitial change, without focal infiltrate or effusion. Reviewed, dictated and finalized at location A.
--- NOTE | ~2024-08-02 | CT_ITS ---
CLINICAL INDICATION: Abdominal and back pain COMPARISON: 03/25/2024. TECHNIQUE: Multiple contiguous axial images of the abdomen and pelvis were performed without the admi nistration of intravenous contrast The dose-length product (DLP) was 160.79 mGy-cm. Automated exposure control and iterative reconstruction technique were employed. FINDINGS/OBSERVATIONS: Visualized lower thorax: Panlobular emphysematous disease. The heart is of normal size, without pericardial effusion. Liver: The liver demonstrates homogeneous attenuation and is not enlarged. Gallbladder and biliary system: The gallbladder is only minimally distended, and otherwise unremarkable. Pancreas: Limited evaluation of the pancreas secondary to the lack of intravenous contrast. Spleen: Punctate calcifications identified within the hepatic parenchyma, suggesting prior granulomat ous disease. The remainder of the spleen otherwise demonstrates homogeneous attenuation and is not enlarged measur ing cm in longitudinal dimension. Kidneys: The bilateral kidneys are unremarkable, without hydronephrosis or renal calculi. Adrenal glands: Unremarkable. Gastrointestinal tract: Fecal stasis within the colon. Appendix: The appendix is not definitively visualized. However, no pericecal inflammatory change is identified suggest the presence of acute appendicitis. Vasculature: Densely calcified atherosclerotic disease. Lymph nodes: Limited evaluation without intravenous contrast Pelvic structures: The bladder is only minimally distended, and otherwise unremarkable. The uterus is either surgically absent or markedly atrophic Body wall and musculoskeletal: Small fat-containing umbilical hernia. No significant degenerative disease within the lower thoracic or lumbosacral spine. IMPRESSION: Panlobular emphysematous disease. No acute pathology detected within the abdomen or pelvis, as detailed above. Reviewed, dictated and finalized at location A.
--- NOTE | ~2024-08-02 | CT_ITS ---
EXAMINATION: CTA chest PE protocol DATE: 08/02/2024 19:47 CDT INDICATION: Shortness of breath, back pain, cough, increasing oxygen requirement, history of pneumoni a. TECHNIQUE: Computed tomographic angiography (CTA) of the chest was performed with 100 mL Omnipaque-35 0 intravenous contrast. The dose-length product was 148.09 mGy-cm. Maximum intensity projection 3D-re constructions of the aorta and other arteries were constructed by the technologist on a separate work station. COMPARISON: 12/08/2023 FINDINGS/OBSERVATIONS: PULMONARY ARTERIES: No filling defect is identified within the main or proximal pulmonary artery. The main pulmonary artery is not enlarged. THORACIC AORTA: No aneurysmal dilatation or dissection is present. The great vessels are intact LUNGS: Panlobular emphysematous. No pleural effusion or consolidation. Calcified pleural plaques structures are demonstrated MEDIASTINUM: No morphologically suspicious or pathologically enlarged lymph nodes are identified with in the mediastinum or bilateral axilla. BONES OF THE CHEST: No acute fracture. No significant degenerative disease. No lytic or blastic lesions. HEART: The heart is of normal size, without pericardial effusion. IMPRESSION: No pulmonary embolus. No thoracic aortic dissection. Panlobular emphysema without acute pulmonary disease. Reviewed, dictated and finalized at location A.
--- OUTSIDE RECORDS SUMMARY | 2024-08-02 17:46 | XMS_ITS | Clinical Summary ---
Author Organization [facility] Address [address] [place] [address] Care Team Providers Care Welding Equipment Repairer Name Role Phone West Pino MD Unavailable [phone] Yvan Jaime MD Unavailable [phone] None, Provider MD Primary Care Provider Unavaila [...] CDT Gender Identity Female 05/09/2021 3:57 PM WRITING CENTER DIRECTOR Sexual Orientation Straight 05/09/2021 3: 57 PM WRITING CENTER DIRECTOR Last Filed Vital Signs Vital Sign Reading Time Taken Comments Blood Pressure 106/60 03/28/2022 9:13 AM WRITING CENTER DIRECTOR Pulse 80 03/28/2022 9:13 AM WRITING CENTER DIRECTOR Temperature 36.1 C (97 F) 03/28/2022 9:13 AM WRITING CENTER DIRECTOR Respiratory Rate 20 03/28/2022 9:13 AM WRITING CENTER DIRECTOR Oxygen Saturation 94% 03/28/2022 9:13 AM WRITING CENTER DIRECTOR Inhaled Oxygen Concentration - - Weight 52.6 kg (116 lb) 03/28/2022 9:13 AM WRITING CENTER DIRECTOR Height 167.6 cm (5' 6 ) 03/28/2022 9:13 AM WRITING CENTER DIRECTOR Body Mass Index 18.72 03/28/2022 9:13 AM WRITING CENTER DIRECTOR Plan of Treatment Health Maintenance Due Date [...] this topic Medical Devices Implanted Type Area [employer] Professor Device Identifier Shelf Expiration Date Model / Serial / Lot Stent [place] 6fr X 24cm - [id number] Implanted:Qty : 1 on 05/17/2019 by West Pino MD at [facility] Stent Left: Ureter [employer] 05/12/2023 [id number] / / [id number] Stent [place] 6fr X 24cm - [id number] Implanted:Qty : 1 on 05/17/2019 by West Pino MD at [facility] Stent Right: Ureter [employer] 05/12/2023 [id number] / / [id number] Stent Ureteral Pigtail 6fr 24cm Crv Taper Tip - [id number] Implanted:Qty : 1 on 02/26/2021 by West Pino MD at [facility] Stent Left: Ureter [employer] [id number] 11/28/2023 [id number] 20 / [id number] Procedures Procedure Name Priority Date/Time Associated Diagnosis Comments MG SCREENING PAIGE DIGI Routine 04/16/2015 3:06 PM WRITING CENTER DIRECTOR from Last 3 Months or Most Recently Relevant to Health Maintenance Results * MG SCREENING PAIGE DIGI (04/16/2015 3:06 PM WRITING CENTER DIRECTOR) Anatomical Region Laterality Modality Breast Bilateral Mammography 04/16/2015 3:06 PM WRITING CENTER DIRECTOR 04/16/2015 3:06 PM WRITING CENTER DIRECTOR Narrative 04/16/2015 3:24 PM WRITING CENTER DIRECTOR MELYSSA MCCALL ADMIT/SERVICE DATE: 04/16/15 ACCT: [id number] DISCHARGE DATE: : 1955 SEX: F ORD SITE: [facility] PT TYPE: REG CLI ORDERING MD: MANE RAMIREZ MD STUDY DATE REPORT # ORDER # EXT ORDER ID 04/16/15 [id number] PROC CODE: SCMAMDGB PROCEDURE DESCRIPTION: MG SCREEN [...] - 02/26/2018 MELYSSA MCCALL ADMIT/SERVICE DATE:04/16/15 ACCT: [id number] DISCHARGE DATE: : 1955 SEX: F ORD SITE: [facility] PT TYPE: REG CLI ORDERING MD:MANE RAMIREZ MD STUDY DATE REPORT # ORDER # EXT ORDER ID 04/16/15 [id number] PROC CODE: SCMAMDGB PROCEDURE DESCRIPTION: MG SCREEN [...] 1:01 PM 02/26/2021 3:43 PM Care Teams Welding Equipment Repairer Relationship Specialty Start Date End Date None, [place], PCP - General UNKNOWN PHYSICIAN SPECIALTY 03/28/22 West Pino MD UROLOGY 05/03/19 Yvan Jaime MD [address] [place] [address] Surgeon NEUROLOGICAL SURGERY 05/03/19
--- OUTSIDE RECORDS SUMMARY | 2024-08-02 17:46 | XMS_ITS | Data Portability ---
Author Organization [facility]BAL[facility] Claudia POLLOCK Address [address] [place] [address] Assessment No assessment recorded. Plan of Treatment Reminders Order Date Submit Date Provider Last Modified By Organization Details Last Modified Time Details Appointments None recorded. Lab rapid strep group A, throat 2016 017 [facility] In-Office Order, Internal Use Only DO Not Attach Compendium DO Not Attach Compendium, Do Not Delete/merge, [id number] 7 17:07:24 HbA1c (hemoglobi n A1c), blood 2015 016 DBA_PATCH_ [id number] [facility], [address], [address], [place], [address], 6 04:31:39 glucose tolerance test, post-75G, 3 specimens 2015 016 DBA_PATCH_ [id number] [facility], [address], [address], [place], [address], 6 04:31:39 unlisted lab - vitamin D, 25-hydroxy , total - [facility] 2015 016 JENNIFER [facility], [address], [address], [place], [address], 6 13:11:27 CBC w/ manual diff 2015 016 [email or web address] [facility], [address], [address], [place], [address], 6 12:15:19 CMP, serum or plasma 2015 016 [email or web address] [facility], [address], [address], [place], [address], 6 12:15:19 lipid panel, serum 2015 016 [email or web address] [facility], [address], [place], [address], 6 12:15:19 unlisted lab - compliance drug analysis, ur 2015 016 JENNIFER [facility], [address] [facility], [address], [place], [address], 6 15:09:40 Referral laryngolog y referral - Please call patient to schedule 2015 016 [email or web address] Not available 7 07:56:45 audiologis t referral - Please call patient to schedule 2015 [email or web address], [address], 7 13:04:47 plastic surgeon referral - Rt thigh lump/ PATIENT TO SCHEDULE 2015 016 [email or web address] Not available 7 13:17:06 gastroente rologist referral - P:leae call patient to schedujle 2015 016 [email or web address] Jack Griffin MD, [address] [place], [address], 7 10:10:31 Procedures colonoscop y screening (PROC) 2015 016 DBA_PATCH_ [id number] Not available 6 04:32:07 Surgeries None recorded. Imaging MAMMO, screening, digital, bilateral 2015 016 DBA_PATCH_ [id number] [facility] ([facility]), [address] [place], [address], 6 04:31:59 MAMMO, screening, bilateral 2015 016 [facility] ([facility]), [address] [place], [address], 7 10:29:25 bone density, dual photon absorptiom etry [address] [facility] ([facility]), [address] [place], [address], 6 15:34:00 Medication Orders sertraline 100 mg tablet 2016 017 [id number], [address], [place], [id number], 7 17:07:30 nystatin 100,000 unit/mL oral suspension 2016 017 [facility]30745, [address] [facility], [place], [place], [id number], 7 17:07:31 calcium 600 mg (as carbonate) -vitamin D3 10 mcg (400 unit) capsule 2016 017 [facility], [address] [facility], [place], [place], [id number], 7 16:54:36 Ventolin HFA 90 mcg/actuat ion aerosol inhaler 2016 017 [facility]15304, [address] [facility], [place], [place], [id number], 7 16:22:52 Symbicort 160 mcg-4.5 mcg/actuat ion HFA aerosol inhaler 2016 017 [facility], [address], [place], [place], [id number], 7 16:22:51 albuterol sulfate 2.5 mg/3 mL (0.083 %) solution for nebulizati on 2016 017 [facility], [address], [place], [place], [id number], 7 16:22:52 calcium 600 mg (as carbonate) -vitamin D3 10 mcg (400 unit) capsule 2015 016 DBA[facility]PATCH_ [id number] [facility], [address], [place], [place], [id number], 6 04:31:45 Patient TargetsNo targets recorded. Patient Instructions Encounter Date Encounter Id Patient Instructions Last Modified By Organization Details Last Modified Time 01/21/2016 [id number] deciding about using medicines to quit [facility] Not available 01/22/2016 15:28:08 Quitting Tobacco : Care Instructions [facility] Not available 01/22/2016 15:28:09 chronic obstructive pulmonary disease (COPD): care instructions [facility] Not available 01/22/2016 15:28:08 learning about copd and how to prevent lung infections [facility] Not available 01/22/2016 15:28:08 03/21/2016 [id number] mammogram: about this test [facility] Not available 03/21/2016 17:27:52 deciding about using medicines to quit smoking [facility] Not available 03/21/2016 17:27:52 Quitting Tobacco : Care Instructions [facility] Not available 03/21/2016 17:27:52 chronic obstructive pulmonary disease (COPD): care instructions [facility] Not available 03/21/2016 17:27:52 learning about copd and how to prevent lung infections [facility] Not available 03/21/2016 17:27:52 learning about high blood sugar [facility] Not available 03/21/2016 17:31:23 05/28/2016 [id number] osteoporosis: care instructions [facility] Not available 05/28/2016 16:22:51 deciding about using medicines to quit smoking [email or web address] Not available 05/28/2016 16:22:51 Quitting Tobacco : Care Instructions [email or web address] Not available 05/28/2016 16:22:51 chronic obstructive pulmonary disease (COPD): care instructions jhsieh Not available 05/28/2016 16:22:51 learning about copd and how to prevent lung infections [email or web address] Not available 05/28/2016 16:22:51 07/01/2016 [id number] deciding about using medicines to quit smoking strice Not available 07/02/2016 09:50:36 Quitting Tobacco : Care Instructions strice Not available 07/02/2016 09:50:36 chronic obstructive pulmonary disease (COPD): care instructions [facility] Not available 07/02/2016 09:50:36 learning about copd and how to prevent lung infections [facility] Not available 07/02/2016 09:50:36 11/24/2016 [id number] deciding about using medicines to quit smoking [email or web address] Not available 11/25/2016 11:07:05 Quitting Tobacco : Care Instructions [email or web address] Not available 11/25/2016 11:07:05 chronic obstructive pulmonary disease (COPD): care instructions [email or web address] Not available 11/25/2016 11:07:05 learning about copd and how to prevent lung infections [email or web address] Not available 11/25/2016 11:07:05 Reason for Referral Plastic Surgeon Referral for Mass of skin Right thigh lump. 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 MORPH INE 19706 NG/MG CREAT POTEN TIAL SOURC ES OF [...] TAYLOR CONSU LTATI ON, PLEAS E CALL [phone]. ===== ===== ===== ===== ===== ===== ===== ===== ===== ===== ===== ===== ===== === Not Available [facility] [address], [place], [address], 01/26/2016 15:09:40 01/21/20 16 01/26/2016 drug scree n, urine pdf . Not Available [facility] [address], [place], [address], 01/26/2016 15:09:40 02/04/20 16 02/05/2016 CBC w/ manua l diff WBC 5.7 x10e3 /uL 3.4-10 .8 Not Available [facility] ([facility]) [address] [facility], [place], [address], 02/07/2016 13:11:25 02/04/20 16 02/05/2016 CBC w/ manua l diff RBC 4.19 x10e6 /uL 3.77-5 .28 Not Available [facility] ([facility]) [address] [facility], [place], [address], 02/07/2016 13:11:25 02/04/20 16 02/05/2016 CBC w/ manua l diff hemoglobin 12.7 g/dL 11.1-1 5.9 Not Available [facility] ([facility]) [address] [facility], [place], [address], 02/07/2016 13:11:25 02/04/20 16 02/05/2016 CBC w/ manua l diff hematocrit 38.8 % 34.0-4 6.6 Not Available [facility] ([facility]) [address] [place], [address], 02/07/2016 13:11:25 02/04/20 16 02/05/2016 CBC w/ manua l diff MCV 93 fL 79-97 Not Available [facility] ([facility]) [address] [place], [address], 02/07/2016 13:11:25 02/04/20 16 02/05/2016 CBC w/ manua l diff MCH 30.3 pg 26.6-3 3.0 Not Available [facility] ([facility]) [address] [place], [address], 02/07/2016 13:11:25 02/04/20 16 02/05/2016 CBC w/ manua l diff MCHC 32.7 g/dL 31.5-3 5.7 Not Available [facility] ([facility]) [address] [facility], [place], [address], 02/07/2016 13:11:25 02/04/20 16 02/05/2016 CBC w/ manua l diff RDW 14.2 % 12.3-1 5.4 Not Available [facility] ([facility]) [address] [place], [address], 02/07/2016 13:11:25 02/04/20 16 02/05/2016 CBC w/ manua l diff platelets 148 x10e3 /uL 150-37 9 below low normal Not Available [facility] ([facility]) [address] [place], [address], 02/07/2016 13:11:25 02/04/20 16 02/05/2016 CBC w/ manua l diff neutrophils 75 % Not Available [facility] ([facility]) [address] [place], [address], 02/07/2016 13:11:25 02/04/20 16 02/05/2016 CBC w/ manua l diff lymphs 16 % Not Available [facility] ([facility]) [address] [place], [address], 02/07/2016 13:11:25 02/04/20 16 02/05/2016 CBC w/ manua l diff monocytes 8 % Not Available [facility] ([facility]) [address] [place], [address], 02/07/2016 13:11:25 02/04/20 16 02/05/2016 CBC w/ manua l diff eos 1 % Not Available [facility] ([facility]) [address] [place], [address], 02/07/2016 13:11:25 02/04/20 16 02/05/2016 CBC w/ manua l diff basos 0 % Not Available [facility] ([facility]) [address] [place], [address], 02/07/2016 13:11:25 02/04/20 16 02/05/2016 CBC w/ manua l diff immature cells [employer] Not Available [facility] ([facility]) [address] [place], [address], 02/07/2016 13:11:25 02/04/20 16 02/05/2016 CBC w/ manua l diff neutrophils absolute 4.3 x10e3 /uL 1.4-7. 0 Not Available [facility] ([facility]) [address] [place], [address], 02/07/2016 13:11:25 02/04/20 16 02/05/2016 CBC w/ manua l diff lymphs (absolute) 0.9 x10e3 /uL 0.7-3. 1 Not Available [facility] ([facility]) [address] [place], [address], 02/07/2016 13:11:25 02/04/20 16 02/05/2016 CBC w/ manua l diff monocytes(ab solute) 0.5 x10e3 /uL 0.1-0. 9 Not Available [facility] ([facility]) [place], [address], 02/07/2016 13:11:25 02/04/20 16 02/05/2016 CBC w/ manua l diff eos (absolute value) 0.1 x10e3 /uL 0.0-0. 4 Not Available [facility] ([facility]) [address] [facility], [place], [address], 02/07/2016 13:11:25 02/04/20 16 02/05/2016 CBC w/ manua l diff baso(absolut e) 0.0 x10e3 /uL 0.0-0. 2 Not Available [facility] ([facility]) [address] [facility], [place], [address], 02/07/2016 13:11:25 02/04/20 16 02/05/2016 CBC w/ manua l diff NRBC [employer] Not Available [facility] ([facility]) [address] [facility], [place], [address], 02/07/2016 13:11:25 02/04/20 16 02/05/2016 CBC w/ manua l diff differential comment [employer]IST Not Available [facility] ([facility]) [address] [facility], [place], [address], 02/07/2016 13:11:25 02/04/20 16 02/05/2016 CBC w/ manua l diff RBC comment RBC'S APPEAR NORMAL . normal Not Available [facility] ([facility]) [address] [facility], [place], [address], 02/07/2016 13:11:25 02/04/20 16 02/05/2016 CBC w/ manua l diff platelet comment ADEQUA TE adequa te Not Available [facility] ([facility]) [address] [facility], [place], [address], 02/07/2016 13:11:25 02/04/20 16 02/05/2016 CMP, serum or plasm a glucose, serum 115 mg/dL 65-99 above high normal Not Available [facility] ([facility]) [address] [facility], [place], [address], 02/07/2016 13:11:26 02/04/20 16 02/05/2016 CMP, serum or plasm a hemoglobin A1C 5.9 % 4.8-5. 6 above high normal PRE-D IABET ES: 5.7 - 6.4 DIABE ROSE: >6.4 GLYCE ARON CONTR OL FOR ADULT S WITH DIABE ROSE: <7.0 Not Available [facility] ([facility]) [address] [facility], [place], [address], 02/07/2016 13:11:26 02/04/20 16 02/05/2016 CMP, serum or plasm a BUN 8 mg/dL 8-27 Not Available [facility] ([facility]) [address] [place], [address], 02/07/2016 13:11:26 02/04/20 16 02/05/2016 CMP, serum or plasm a creatinine, serum 0.85 mg/dL 0.57-1 .00 Not Available [facility] ([facility]) [address] [place], [address], 02/07/2016 13:11:26 02/04/20 16 02/05/2016 CMP, serum or plasm a eGFR if nonafricn AM 74 mL/mi n/1.7 3 >59 Not Available [facility] ([facility]) [address] [place], [address], 02/07/2016 13:11:26 02/04/20 16 02/05/2016 CMP, serum or plasm a eGFR if africn AM 85 mL/mi n/1.7 3 >59 Not Available [facility] ([facility]) [address] [place], [address], 02/07/2016 13:11:26 02/04/20 16 02/05/2016 CMP, serum or plasm a BUN/creatini ne ratio 9 11-26 below low normal Not Available [facility] ([facility]) [address] [place] [address], [address], 02/07/2016 13:11:26 02/04/20 16 02/05/2016 CMP, serum or plasm a sodium, serum 142 mmol/ L 134-14 4 EFF ECTIV E OCTOB ER 2015 THE REFER ENCE INTER NIRMALA FOR SARAH Rodriguez, SERUM WILL BE LYON ING TO: 136 - 144 Not Available [facility] ([facility]) [address] [place], [address], 02/07/2016 13:11:26 02/04/20 16 02/05/2016 CMP, serum [...] YEAR 3.5 - 5.2 Not Available [facility] ([facility]) [address] [place], [address], 02/07/2016 13:11:26 02/04/20 16 02/05/2016 CMP, serum or plasm a chloride, serum 103 mmol/ L 97-108 EFF ECTIV E OCTOB ER 2015 THE REFER ENCE INTER NIRMALA FOR CHLOR SAHIL, SERUM WILL BE LYON ING TO: 97 - 106 Not Available [facility] ([facility]) [address] [place], [address], 02/07/2016 13:11:26 02/04/20 16 02/05/2016 CMP, serum or plasm a carbon dioxide, total 24 mmol/ L 18-29 Not Available [facility] ([facility]) [address] [place], [address], 02/07/2016 13:11:26 02/04/20 16 02/05/2016 CMP, serum or plasm a calcium, serum 8.3 mg/dL 8.7-10 .3 below low normal Not Available [facility] ([facility]) [address] [place], [address], 02/07/2016 13:11:26 02/04/20 16 02/05/2016 CMP, serum or plasm a protein, total, serum 6.2 g/dL 6.0-8. 5 Not Available [facility] ([facility]) [address] [facility], [place], [address], 02/07/2016 13:11:26 02/04/20 16 02/05/2016 CMP, serum or plasm a albumin, serum 3.8 g/dL 3.6-4. 8 Not Available [facility] ([facility]) [address] [place], [address], 02/07/2016 13:11:26 02/04/20 16 02/05/2016 CMP, serum or plasm a globulin, total 2.4 g/dL 1.5-4. 5 Not Available [facility] ([facility]) [address] [place], [address], 02/07/2016 13:11:26 02/04/20 16 02/05/2016 CMP, serum or plasm a A/G ratio 1.6 1.1-2. 5 Not Available [facility] ([facility]) [address] [place] [address], [place], [address], 02/07/2016 13:11:26 02/04/20 16 02/05/2016 CMP, serum or plasm a bilirubin, total <0.2 mg/dL 0.0-1. 2 Not Available [facility] ([facility]) [address] [place], [address], 02/07/2016 13:11:26 02/04/20 16 02/05/2016 CMP, serum or plasm a alkaline phosphatase, S 97 IU/L 39-117 Not Available [facility] ([facility]) [address] [place] [address], [address], 02/07/2016 13:11:26 02/04/20 16 02/05/2016 CMP, serum or plasm a AST (SGOT) 15 IU/L 0-40 Not Available [facility] ([facility]) [address] [place], [address], 02/07/2016 13:11:26 02/04/20 16 02/05/2016 CMP, serum or plasm a ALT (SGPT) 15 IU/L 0-32 Not Available [facility] ([facility]) [address] [place], [address], 02/07/2016 13:11:26 02/04/20 16 02/05/2016 lipid panel , serum cholesterol, total 201 mg/dL 100-19 9 above high normal Not Available [facility] ([facility]) [address] [place], [address], 02/07/2016 13:11:26 02/04/20 16 02/05/2016 lipid panel , serum triglyceride s 91 mg/dL 0-149 Not Available [facility] ([facility]) [address] [place], [address], 02/07/2016 13:11:26 02/04/20 16 02/05/2016 lipid panel , serum HDL cholesterol 72 mg/dL >39 ACCOR DING TO ATP-I II GUIDE LINES , HDL-C >59 MG/DL IS CONSI DERED A NEGAT CAMPOS RISK FACTO R FOR CHD. Not Available [facility] ([facility]) [address] [place], [address], 02/07/2016 13:11:26 02/04/20 16 02/05/2016 lipid panel , serum VLDL cholesterol taylor 18 mg/dL 5-40 Not Available [facility] ([facility]) [address] [place], [address], 02/07/2016 13:11:26 02/04/20 16 02/05/2016 lipid panel , serum LDL cholesterol calc 111 mg/dL 0-99 above high normal Not Available [facility] ([facility]) [address] [place], [address], 02/07/2016 13:11:26 02/04/20 16 02/05/2016 lipid panel , serum comment: [employer] Not Available [facility] ([facility]) [address] [place], [address], 02/07/2016 13:11:26 02/04/20 16 02/05/2016 lipid panel , serum LDL/HDL ratio 1.5 ratio _unit s 0.0-3. 2 LDL/H DL RATIO MEN WOMEN 1/2 AVG.R ISK 1.0 1.5 AVG.R ISK 3.6 3.2 2X AVG.R ISK 6.2 5.0 3X AVG.R ISK 8.0 6.1 Not Available [facility] ([facility]) [address] [place], [address], 02/07/2016 13:11:26 02/04/20 16 02/07/2016 vitam in D, 25-hy droxy , total , serum vitamin D, 25-hydroxy, serum 37 NG/mL REFER ENCE RANGE : ALL AGES: TARGE T LEVEL S 30 - 100 Not Available [facility] [address] [place] [address], [address], 02/07/2016 13:11:27 04/02/20 16 04/03/2016 gluco se slava ance test, post- 75G, 3 speci mens glucose, fasting 92 mg/dL 65-99 Not Available [facility] ([facility]) [address] [place], [address], 04/03/2016 06:12:40 04/02/20 16 04/03/2016 gluco se slava ance test, post- 75G, 3 speci mens glucose, 1/2 hour TNP TEST NOT PERFO RMED Not Available [facility] ([facility]) [address] [place], [address], 04/03/2016 06:12:40 04/02/20 16 04/03/2016 gluco se slava ance test, post- 75G, 3 speci mens glucose, 1 hour 189 mg/dL 65-199 Not Available [facility] ([facility]) [address] [place], [address], 04/03/2016 06:12:40 04/02/20 16 04/03/2016 gluco se slava ance test, post- 75G, 3 speci mens glucose, 1 1/2 hour TNP TEST NOT PERFO RMED Not Available [facility] ([facility]) [address] [place], [address], 04/03/2016 06:12:40 04/02/20 16 04/03/2016 gluco se slava ance test, post- 75G, 3 speci mens glucose, 2 hour 97 mg/dL 65-139 Not Available [facility] ([facility]) [address] [place], [address], 04/03/2016 06:12:40 04/02/20 16 04/03/2016 gluco se slava ance test, post- 75G, 3 speci mens glucose, 3 hour TNP TEST NOT PERFO RMED Not Available [facility] ([facility]) [address] [place] [address], [address], 04/03/2016 06:12:40 04/02/20 16 04/03/2016 gluco se slava ance test, post- 75G, 3 speci mens glucose, 4 hour TNP TEST NOT PERFO RMED Not Available [facility] ([facility]) [address] [place], [address], 04/03/2016 06:12:40 04/02/20 16 04/03/2016 gluco se slava ance test, post- 75G, 3 speci mens glucose, 5 hour TNP TEST NOT PERFO RMED Not Available [facility] ([facility]) [address] [place], [address], 04/03/2016 06:12:40 04/02/20 16 04/03/2016 gluco se slava ance test, post- 75G, 3 speci mens glucose, 6 hour TNP TEST NOT PERFO RMED Not Available [facility] ([facility]) [address] [facility], [place], [address], 04/03/2016 06:12:40 04/02/20 16 04/03/2016 HbA1c (hemo globi n A1c), blood hemoglobin A1C 6.0 % 4.8-5. 6 above high normal PRE-D IABET ES: 5.7 - 6.4 DIABE ROSE: >6.4 GLYCE ARON CONTR OL FOR ADULT S WITH DIABE ROSE: <7.0 Not Available [facility] ([facility]) [address] [facility], [place], [address], 04/03/2016 06:12:41 01/29/20 16 01/28/2016 bone densi ty, dual photo n absor ptiom etry No observ ation record ed. [email or web address] [facility] [address] [place], [address], 08/20/2016 09:43:33 02/21/20 16 02/21/2016 US, kidne y No observ ation record ed. [email or web address] Not Available 2015 15:40:26 05/21/19 17 05/21/2016 MRI, brain + brain stem, w/wo contr ast No observ ation record ed. strice [facility] [address] [place], [address], 07/03/2016 11:40:04 05/21/19 17 05/21/2016 MRI, cervi taylor spine , w/o contr ast No observ ation record ed. [email or web address] [facility] ([facility]) [address] [place], [address], 05/29/2016 07:28:18 06/03/19 17 06/03/2016 MAMMO , scree uziel, bilat eral No observ ation record ed. [email or web address] Not Available 07/02 15:29:02 06/27/19 17 06/27/2016 XR, chest , 2 view No observ ation record ed. [facility] (Imaging) [address] [place], [address], 07/16/2016 13:29:36 07/04/19 17 6 minut e walk test* No observ ation record ed. [facility] ([facility]) [address] [place], [address], 07/04/2016 12:37:03 Result Notes None recorded. Problems Name Problem SNOMED Code Status Onset Date Resolution Date Notes Provider Name and Address Organization Details Recorded Time Chronic obstructive pulmonary disease 66849612 Active Milena Dos Santos MD Attn: Wilmer bullock,[address] [facility], [place], [place], [address] [place] [address] 2, [facility] 6 15:15:05 Tobacco dependence syndrome 52445683 Active Milena Dos Santos MD Attn: Wilmer bullock,[address] [facility], [place], [address] [place] [address] 2, [facility] 6 15:15:05 Chronic low back pain 145606783 Active Milena Dos Santos MD Attn: Wilmer bullock,[address] [facility], [place], [address] [place] [address] 2, [facility] 6 15:15:05 Esophageal dysphagia 60976741 Active Milena Dos Santos MD Attn: Wilmer bullock,[address] [facility], [place], [address] [place] [address] 2, [facility] 6 15:15:05 Dystonia 06993021 Active Milena Dos Santos MD Attn: Wilmer bullock,[address] [place], [place], [address] [place] [address] 2, [facility] 6 15:15:05 Osteoporosis [id number] Diandra Gonzalez RN null, [facility] 6 15:14:16 Problem Notes None recorded. Procedures Surgical History Date Name Laterality Status Provider Name and Address Organization Details Recorded Time 05/04/19 15 Mammogram screening completed Judd Valentine MA [facility] 01/21/2016 14:25:00 05/04/19 14 Diagnostic colonoscopy completed Judd Valentine MA [facility] 01/21/2016 14:25:00 05/04/19 09 Screening pap smear by phys completed Judd Valentine MA [facility] 01/21/2016 14:25:00 Dilation and Curettage completed Judd Valentine MA [facility] 01/21/2016 14:25:00 Tonsillectomy completed Judd Valentine MA [facility] 01/21/2016 14:25:00 Hysterectomy completed Judd Valentine MA [facility] 01/21/2016 14:25:00 Appendectomy completed Judd Valentine MA [facility] 01/21/2016 14:25:00 Imaging Results Imaging Date Name Status LastModified by Organization Details LastModified Time 01/28/2016 bone density, dual photon absorptiometry completed [email or web address] [facility] [address] [place], [address], 08/20/2016 09:43:33 02/21/2016 US, kidney completed [email or web address] Information no t available 03/12/2016 15:40:26 05/21/2016 MRI, brain + brain stem, w/wo contrast completed [facility] [address] [place], [address], 07/03/2016 11:40:04 05/21/2016 MRI, cervical spine, w/o contrast completed [email or web address] [facility] (Imaging) [address] [place], [address], 05/29/2016 07:28:18 06/03/2016 MAMMO, screening, bilateral completed [email or web address] Information not available 07/14/2016 15:29:02 06/27/2016 XR, chest, 2 view completed [facility] (Imaging) [address] [place], [address], 07/16/2016 13:29:36 07/03/2016 6 minute walk test* completed [facility] (One Call Scheduling) [address], [place], [address], 07/04/2016 12:37:03 Procedure Notes None recorded. Medical Equipment None Reported. Allergies Allergen ID Allergen Name Allergen Category Reaction Reaction Severity Criticality Documentation Date Start Date Code Code System Note Provider Name and Address Organization Details Recorded Time 37681 Product containin g penicilli n (product) medicatio n Not available Not available Not available 01/21/2016 14300 8001 SNOMED Not Available Not Available Not Available 84591 Demerol medicatio n itching Not available Not available 01/21/2016 39857 1 RxNorm Not Available Not Available Not [...] propionate 50 mcg/actuatio n nasal spray,suspen [place] 1 spray every day by intranasal route. [...] Updated DateTime 6 169.545 cm 71 /min 03079.3 00956 g 96 % 96 % 18.9 kg/m2 98.3 [degF] 144 mm[Hg] 70 mm[Hg] Judd Valentine MA [facility] 6 14:25:00 Date Recorded Body height Body weight Body mass index (BMI) Body temperature Oxygen saturation Oxygen saturation in Arterial blood by Pulse oximetry Heart rate Systolic blood pressure Diastolic blood pressure Provider Name and Address Organization Details Last Updated DateTime 6 169.545 cm 87289.7 1 g 19.3 kg/m2 98.3 [degF] 95 % 95 % 88 /min 104 mm[Hg] 60 mm[Hg] Judd Valentine MA [facility] - [facility] 6 16:32:19 Date Recorded Body height Body weight Body mass index (BMI) Body temperature Oxygen saturation Oxygen saturation in Arterial blood by Pulse oximetry Heart rate Systolic blood pressure Diastolic blood pressure Provider Name and Address Organization Details Last Updated DateTime 7 169.545 cm 45656.4 8 g 19.8 kg/m2 97.9 [degF] 96 [...] Details Last Updated DateTime 7 169.545 cm 94357.7 g 19.3 kg/m2 98.1 [degF] 92 % [...] Updated DateTime 7 169.545 cm 20.5 kg/m2 78891.2 9 g 97.7 [degF] 95 % 95 [...] 0.5 mL 07/09/2020 completed Nato Maria null, [place] [facility] 11/07/2020 16:13:26 pneumococcal, unspecified formulation 05/04/2005 completed Judd Valentine MA null, [place] - [facility] 01/21/2016 14:25:00 Past Encounters Encounter ID Performer Location Encounter Start Date Encounter Closed Date Diagnosis/Indication Diagnosis SNOMED-CT Code Diagnosis ICD10 Code Diagnosis Note [id number] [facility] (Adult Med) [address] [place] [address] 01/21/2016 13:44:23 01/21/2016 18:02:47 Chronic obstructive pulmonary disease 66162273 J44.9 Tobacco de pendence syndrome 22835668 F17.290 Chronic low back pain 27 6499751 M54.5 Esophageal dysphagia 408 55000 R13.19 Adult heal th examination 182132100 Z00.00 Screening for osteoporosis 146531329 Z13.820 Dystonia 08246690 G24.9 [id number] MD Asif Colindres (Adult Med) [address] [place] [address] 03/21/2016 15:52:50 03/21/2016 17:46:52 Chronic obstructive pulmonary disease 04212109 J44.9 Tobacco de pendence syndrome 90332791 F17.290 Osteopenia 790376141 M85 .9 Mass of skin 079387653 R 22.9 Screening for malignant neoplasm of colon 338885437 Z12.11 Hearing disorder 7833315 05 H91.93 Screening mammography 24 125339 Z12.31 Hyperglycemia 83285315 R 73.9 [id number] MD Asif Colindres (Adult Med) [address] [place] [address] 0 05/28/2016 15:44:26 05/28/2016 16:35:56 Chronic obstructive pulmonary disease 05902272 J44.9 Tobacco de pendence syndrome 40120058 F17.290 Dystonia 50573053 G24.9 She has been seen by a neurologis t on the rgular basis. Chronic low back pain 27 4352749 M54.5 Esophageal dysphagia 408 70280 R13.19 She had upper EGD scopic ex. by a GI specialist and was dilated and recently had unremarkab le colonoscop y ex by GI specialist as well. Osteoporosis 31843907 M8 1.0 Osteopenia 023839394 M85 .9 [id number] MD Asif Colindres (Adult Med) [address] [place] [address] 07/01/2016 15:40:48 07/01/2016 18:04:54 Chronic obstructive pulmonary disease 26717472 J44.9 Will have nurse arrange the 6 minutes walking test to see if she is qualified for the home oxygen, Jennifer won't give such choice on the computer. Tobacco de pendence syndrome 31533174 F17.290 She is on the nicotine patch for quitting cigarettes . [id number] [facility] [address] [place] [address] 11/24/2016 14:30:40 11/24/2016 17:09:34 Pharyngitis 403499343 J02.9 Thrash. Chronic ob structive pulmonary disease 09947063 J44.9 Will have nurse arrange the 6 minutes walking test to see if she is qualified for the home oxygen, Jennifer won't give such choice on the computer. Tobacco de pendence syndrome 97977189 F17.290 She is on the nicotine patch for quitting cigarettes . Multiple joint pain 3567 8005 M25.50 Had been on sertraline . Chronic low back pain 27 2017337 M54.5 Same as sertraline . Lumbar radiculopathy 128 815221 M54.16 Health Concerns Section Related Observation LastModified by Organization Detai ls LastModified Time None Recorded Concern Status LastModified by Organization Details LastModified Time None Recorded Advance Directives Directive None Recorded Payers Encounter Date Sequence Insurance Name Policy Number Policy Granados Covered Member ID Granados Member ID Guarantor Name 01/21/2016 1 [place] Melyssa A [place] [id number] A Melyssa [place] 01/21/2016 2 [place] [facility] Melyssa [place] [id number] Melyssa Cal 03/21/2016 1 [place]a A [place] [id number] A Melyssa Cal 03/21/2016 2 [place] [facility] [place] [facility] Melyssa Cal [id number] Melyssa Cal 05/28/2016 1 [place]a A [place] [id number] A Melyssa Cal 05/28/2016 2 [place] [facility] [place] [facility] Melyssa Cal [id number] Melyssa Cal 07/01/2016 1 [place]a A [place] [id number] A Melyssa Cal 07/01/2016 2 [place] [facility] [place] [facility] Melyssa Cal [id number] Melyssa Cal 11/24/2016 1 [place] Melyssa A [place] [id number] A Melyssa Cal Notes Date Note Type [...] Milena Dos Santos MD Attn: Accounting,[address] [place], [address], [facility] 01/21/2016 15:15:32 03/21/2016 text/html She has gone to GI specialist for dilatation of esophageal stricture, her food regurgitaion has resolved and no more aspiration /or pneumonia and has gained weight after the improving appetite and oral intake but still smokes cigarettes. Milena Dos Santos MD Attn: Accounting,[address] [facility], [place], [address], [facility] 03/21/2016 17:39:07 11/24/2016 text/html She is happy abo ut that her ears can hear well again. and she had benign lump removed on her right thigh, had seen GI doctor for her esophageal dysphagia, still smokes cigarettes , using inhalers, chronic throat sore . Allergic to penicillins and demerol. Milena Dos Santos MD Attn: Accounting,[address] , [place], [address], [facility] 11/24/2016 17:07:30 OBGyn Episode No OBEpisode recorded.
--- OUTSIDE RECORDS SUMMARY | 2024-08-02 17:46 | XMS_ITS | Continuity of Care Document ---
Author Organization [facility] Address [address] [facility] [address] [place] [address] Phone Care Team Providers Care Assistant Quality Manager Name Role Phone Sherif Doyle MD Unavailable Unavailable Allergies, Adverse Reactions, Alerts Substance Reaction Status Criticality PENICILLIN G POTASSIUM Active No In formation MEPERIDINE HCL Active No Informatio n Medications Medication Instructions Dosage Effective Dates (start - stop) Status Comments METHADOSE 5 MGTABLET tk 2 ts qd - Acti ve Lidoderm 5 % (700 mg/patch) Adhesive Patch - Active Miacalcin 200 unit/Actuation Nasal [place] Aerosol 1 spray each nostril qd - [...] on Encounter [facility], [address], [id number], [place] tel:[phone] [facility] No Information 6 Vivek Gorman. [address] [place] [address], [id number] , [place]. tel:[phone] Offic/outpt E&m Estab Minor [address] [facility], [address] [address], [place], [place], [id number], [place] tel:[phone] [facility] No Information 6 José Luis Sullivan. [address] [facility], [address], [id number] , [place]. tel:[phone] Referring Provider: Nate Ordonez V, [address], [address] . tel:[phone] [facility], [address], [place], [place], [address], [place] tel:[phone] [facility] No Information 6 José Luis Sullivan. [address], [address], [place], [place], [address] , [place]. tel: [phone] Referring Provider: Nate Ordonez V, [address], [place], [address] . tel:[phone] [facility], [address], [place], [place], [address], [place] tel:[phone] [facility] No Information 6 José Luis Sullivan. [address], [address], [place], [place], [address] , [place]. tel: [phone] Referring Provider: Nate Ordonez V, [address], [place], [address] . tel:[phone] Offic/outpt E&m Estab Low-mod [facility], [address], [place], [place], [address], [place] tel:[phone] [facility] No Information 6 José Luis Sullivan. [address], [address], [place], [place], [address] , [place]. tel:[phone] Referring Provider: Nate Ordonez V, [address], [place], [address] . tel:[phone] Offic/outpt E&m Estab Low-mod [facility], [address], [place], [place], [address], [place] tel:[phone] [facility] No Information 6 José Luis Sullivan. [address], [address], [place], [place], [address] , [place]. tel: [phone] Referring Provider: Nate Ordonez V, [address], [place], [address] . tel:[phone] Offic/outpt E&m Estab Minor 10 [facility], [address], [place], [place], [address], [place] tel:[phone] [facility] No Information May-0 9-200 6 José Luis Sullivan. [address], [address], [place], [place], [address] , [place]. tel:[phone] Referring Provider: Nate Ordonez V, [address], [place], [address] . tel:[phone] [facility], [address], [place], [place], [address], [place] tel:[phone] [facility] No Information May-0 5-200 6 José Luis Sullivan. [address], [address], [place], [place], [address] , [place]. tel:[phone] Referring Provider: Nate Ordonez V, [address], [place], [address] . tel:[phone] [facility], [address], [place], [place], [address], [place] tel:[phone] [facility] No Information May-0 2-200 6 José Luis Sullivan. [address], [address], [place], [place], [address] , [place]. tel:[phone] Referring Provider: Nate Ordonez V, [address], [place], [address] . tel:[phone] [facility], [address], [place], [place], [address], [place] tel:[phone] [facility] No Information Apr-2 8-200 6 Ordonez Nate. [address], [address], [place], [place], [address] , [place]. tel:[phone] Referring Provider: Nate Ordonez V, [address], [place], [address] . tel:[phone] [facility], [address], [place], [place], [address], [place] tel:[phone] [facility] No Information Aug- 5-200 6 José Luis Sullivan. [address], [address], [place], [place], [id number] , [place]. tel:[phone] Referring Provider: Nate Ordonez V, [address], [place], [address] . tel:[phone] [facility], [address], [place], [place], [address], [place] tel:[phone] [facility] NANCY No Information 6 José Luis Sullivan. [address], [address], [place], [place], [address] , [place]. tel:[phone] Referring Provider: Nate Ordonez V, [address], [place], [address] . tel:[phone] [facility], [address], [place], [place], [address], [place] tel:[phone] [facility] NANCY No Information 200 6 José Luis Sullivan. [address], [address], [place], [place], [address] , [place]. tel:[phone] Referring Provider: Nate Ordonez V, [address], [place], [address] . tel:[phone] Offic Cons New/estab Mod-hi 60 [facility], [address], [place], [place], [address], [place] tel:[phone] [facility] NANCY No Information 8-200 6 José Luis Sullivan. [address], [facility] [address], [place], [place], [address] , [place]. tel:[phone] Referring Provider: Nicho Goldstein MD B, [address] [place] [place], [address]. tel:[phone] Family History Family Member Type Diagnosis Age At Onset Gen Fam Hx Problem (finding) Cancer Gen Fam Hx Problem (finding) Stroke Payers Payer name Insurance type Covered libertarian ID Authorstepha jevon(s) BCBS Of [facility] [id number] Social History Type Description Quantity Date Captured [...]
--- OUTSIDE RECORDS SUMMARY | 2024-08-02 17:46 | XMS_ITS | Data Portability ---
Author Organization [employer], Main Office Address [address] [place] [address] Assessment Encounter Date Assessment Date Assessment LastModified by Organization Details LastModified Time 11/20/2022 11/20/2022 This note is dictated and transcribed by [employer]. Circle Saw Operator variances may occur. Despite proofreading, typographical errors [...] Recorded Time Metatarsalg ia of right foot 9598912627727 00 Active 2022 Shemar Fairchild DPM [address], [address], [place], [address], [employer] 3 16:36:55 Foot callus 377193479 Active 2022 Shemar Fairchild DPM [address], [address], [place], [address], [employer] 3 16:36:59 Hammer toe 679232642 Active 2022 Shemar Fairchild DPM [address], [address], [place], [address], [employer] 3 16:37:19 Problem Notes None recorded. Procedures Surgical History Date Name Laterality Status Provider Name and Address Organization Details Recorded Time Hysterectomy, Partial completed Joycelyn Bean [employer] 11/20/2022 16:57:02 Appendectomy completed Joycelyn Bean [facility] 11/20/2022 16:57:06 Total hysterectomy completed Joycelyn Bean [facility] 11/20/2022 16:57:18 release of trigger finger completed Joycelyn Bean [facility] 11/20/2022 16:57:28 Tonsillectomy completed Joycelyn Bean [facility] 11/20/2022 16:57:34 Imaging Results None recorded. Procedure Notes None recorded. Medical Equipment None Reported. Allergies Allergen ID Allergen Name Allergen Category Reaction Reaction Severity Criticality Documentation Date Start Date Code Code System Note Provider Name and Address Organization Details Recorded Time 49429 Product containin g penicilli n (product) medicatio n Not available Not available Not available 11/20/2022 97831 8001 [facility]ED [facility] 16:51:43 30466 meperidin e medicatio n Not available Not available Not available 11/20/2022 6754 RxNorm [facility] 3 16:51:54 51785 sulfadime thoxine Not available Not available Not available Not available 11/20/2022 89634 RxNorm [facility] 3 16:52:05 93274 trimethop rim medicatio n Not available Not available Not available 11/20/2022 44699 RxNorm [facility] 3 16:52:18 Medications Name Sig Start Date [...] % 97 % 167.64 cm 16.9 kg/m2 30954.2 g 142 mm[Hg] 78 mm[Hg] Joycelyn US [facility] [employer] [facility] 3 16:19:04 Date Recorded Body height Body mass index (BMI) Body weight Heart rate Respiratory rate Oxygen saturation Oxygen saturation in Arterial blood by Pulse oximetry Systolic blood pressure Diastolic blood pressure Provider Name and Address Organization Details Last Updated DateTime 3 167.64 cm 16.9 kg/m2 41374.2 g 72 /min 14 /min 97 % 97 % 134 mm[Hg] 69 mm[Hg] Joycelyn Bean [facility] [employer] [facility] 3 14:02:12 Social History Question Answer Notes LastModified by Organizat ion Details LastModified Time Tobacco Smoking Status Current Every Day Smoker Joycelyn amin [facility] 11/20/2022 16:56:20 What Is Your Level Of [...] 16:55:49 Medical History Condition Response ARTHRITIS Y ALLERGIES/HAYFEVER Y LUNG DISEASE/DISORDER Y HEARTBURN / REFLUX Y HIGH CHOLESTEROL / HYPERLIPIDEMIA Y PULMONARY DISEASE Y BACK / NECK PROBLEMS Y FIBROMYALGIA Y URINARY/BLADDER/KIDNEY PROBLEMS Y Gynecological HistoryNo gynecological history recorded. Obstetrics History GPAL:G 0 P 0 0 0 0 Past Encounters Encounter ID Performer Location Encounter Start Date Encounter Closed Date Diagnosis/Indication Diagnosis SNOMED-CT Code Diagnosis ICD10 Code Diagnosis Note [id number] Shemar Fairchild DPM [facility] [place] [address] [facility], [address] [place] [address] 11/20/2022 16:13:05 11/25/2022 16:43:24 Metatarsalgia of right foot 2140961439 07533 M77.41 sub 3rd metatarsal head, right footas above Foot callus 295904779 L8 4 sub 3rd metatarsal headMildOf floading with metatarsal pad had to functional orthoticse ducated on supportive shoe gearFollow -up in 1 month Hammer toe 429119912 M20 .41 right 2nd 3rd toes mildEducat ed on treatment optionCont inue with conservati ve therapy [id number] Shemar Fairchild DPM [facility] [place] [address] [facility], [address] [place] [address] 12/18/2022 13:48:12 12/18/2022 14:26:06 Hammer toe 312454181 M20.41 right 2nd 3rd toes mildpatien t would like to continue with conservati ve therapyrec ommend silicone sleeves and soft high toe box shoe to prevent wounds infectionF ollow-up as needed Foot callus 595733834 L8 4 sub 3rd metatarsal headresolv ed with offloading Metatarsal ella of right foot 6936856902 47124 M77.41 sub 3rd metatarsal head, right footResolv [...] 11/20/2022 1 [place] Melyssa A [place] [id number] Melyssa A [place] 11/20/2022 2 [place] [facility]ID Melyssa A [place] [id number] Melyssa A [place] 12/18/2022 1 [place]a A [place] [id number] Melyssa A [place] 12/18/2022 2 [place] [facility] Melyssa A Cal [id number] Melyssa A Cal Notes Date Note Type [...] area. 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 Patient is [...] Fairchild DPM [address], [address], [place], [address], [employer] 12/18/2022 14:07:57 OBGyn Episode No OBEpisode recorded.
--- OUTSIDE RECORDS SUMMARY | 2024-08-02 17:46 | XMS_ITS | Referral Summary ---
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
--- OUTSIDE RECORDS SUMMARY | 2024-08-02 17:46 | XMS_ITS | Encounter Summary ---
Author Organization [facility] Address [address] [place] [address] Care Team Providers Care Rag Room Supervisor Name Role Phone Milena Dos Santos MD Primary Care Provider [phone] Tommy King DO Primary Care Provider [phone] [place] P[place] MD Unavailable [phone] Yvan Jaime MD Unavailable [phone] None, Provider Primary Care Provider Unavaila ble Encounter Details Date Type Department Care Team (Latest Contact Info) Description 03/09/2018 Abstract [facility] Michael Mclean MD Social History Tobacco Use Types Packs/Day Years Used Date Smoking Tobacco: Smoker, Current Status Unknown Comments Unknown Sex and Gender Information Value Date Recorded Sex Assigned at Not on file Legal Sex Female 11:35 PM CDT Gender Identity Female 05/09/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 Sexual Orientation Straight 05/09/2021 3: 57 PM FIBERGLASS LAMINATOR documented as of this encounter Plan of Treatment Not on file documented as of this encounter Visit Diagnoses Not on filedocumented in this encounter Care Teams Rag Room Supervisor Relationship Specialty Start Date End Date Milena Dos Santos MD [address] [place] [address] PCP - General 06/03/16 04/03/19 Tommy King DO [address] [place] [address] PCP - General INTERNAL MEDICINE 04/04/19 03/27/22 None, Shena, PCP - General UNKNOWN PHYSICIAN SPECIALTY 03/28/22 West Pino MD [address] [facility] [address] [place] [address] UROLOGY 05/03/19 Yvan Jaime MD [address] [place] [address] Surgeon NEUROLOGICAL SURGERY 05/03/19 documented as of this encounter
--- OUTSIDE RECORDS SUMMARY | 2024-08-02 17:46 | XMS_ITS | Clinical Summary ---
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
--- OUTSIDE RECORDS SUMMARY | 2024-08-02 17:47 | XMS_ITS | Clinical Summary ---
Author Organization [facility] [address] Address [address] [place] [address] Care Team Providers Care Biomass Production Manager Name Role Phone Tommy King DO Primary Care Provider [phone] Source Comments [facility],non-owned Affiliates and Associated Physician Practices is amultiple site organization consisting of ambulatory clinics and hospital sitesin [place], [place], [place] and [place]. This disclosure is being madepursuant to the Care Everywhere program and may not contain all information available regarding this patient. Last updated 18.[facility] Allergies Active Allergy Reactions [...] fluticasone propionate (FLONASE) 50 MCG/ACT nasal spray Pillager 2 sprays into the nose once daily [...] 81 mg by mouth once daily Active Mkontowqduqrtwx-UO-NM -APAP (ROBITUSSIN COLD/COUGH/FLU PO) Take 13.5 mg by mouth Active clotrimazole-betameth asone (LOTRISONE) 1-0.05 % cream APPLY TOPICALLY TO THE AFFECTED AREA TWICE DAILY 04/24/2021 Active potassium citrate (UROCIT K 10) 10 MEQ (1080 MG) tablet 06/10/2021 Active doxycycline monohydrate 100 MG tablet TAKE 1 TABLET BY MOUTH DAILY FOR 10 DAYS 05/06/2021 Active cihavsqp-nhasciame-zy xameth (MAXITROL) ophthalmic suspension 07/30/2021 Act amadeo [...] 36.8 C (98.3 F) 06/12/2021 10:53 AM [employer]RAFTER [employer]IVIL Respiratory Rate 18 05/23/2021 12:51 PM DRAFTER CIVIL Oxygen Saturation 91% 08/05/2021 9:59 AM CDT [...] - COLON CA SCREENING 1953 MAMMOGRAM 1953 HEPATITIS C SCREENING 07/20/1971 DTAP/TDAP/TD VACCINES (1 - Tdap) 1972 PNEUMOCOCCAL VACCINE 50+ (1 of 2 - PCV) 1972 ZOSTER VACCINE (1 of 2) 07/25/2003 COVID-19 VACCINE (3 - 2023- season) 2024 02/28/2021, 07/09/2020 INFLUENZA VACCINE (#1) 2024 , 01/06/2020, 01/13/2018, Additional history exists DEPRESSION SCREENING 05/04/2024 MEDICARE AWV CALENDAR YEAR 2024 Respiratory Syncytial Virus (RSV) Vaccine Pt: or [...] this topic Medical Devices Implanted Type Area Frame Maker Device Identifier Shelf Expiration Date Model / Serial / Lot Lead Nrstm 60cm Penta 3mm Pdl 16 [facility] - [id number] Implanted:Qty: 1 on 05/23/2021 by Esau Rose MD at [facility] Back [employer] 10/19/2022 [id number] / [id number] / Slnt Dura Duraseal Pg Trilysine Amine 5 Implanted:Qty: 1 on 05/23/2021 by Esau Rose MD at [facility] Back [employer] Erendira [id number] / / [id number] Gntr Nrstm 1.95inx2.19in [employer] Elt - [id number] Implanted:Qty: 1 on 05/23/2021 by Esau Rose MD at [facility] Left: Back [employer] 03/26/2023 [id number] / [id number] / Care Teams Biomass Production Manager Relationship Specialty Start Date End Date Tommy King DO PCP - General Internal Medicine 04/23/21
--- NOTE | 2024-08-02 17:51 | ECG_ITS ---
Test Date: 2024-08-02 18:14:20 Measurements Intervals [place] Rate: 75 P: 84 MO: 143 QRS: 38 QRSD: 85 T: 66 QT: 361 QTc: 405 Interpretive Statements SINUS RHYTHM BASELINE ARTIFACT- I, II, III, AVR, AVL, AVF, V1-V6 NORMAL ECG No previous ECG available for comparison Electronically Signed On 08-02-2024 20:40:[address] D.O.
--- NOTE | 2024-08-02 17:59 | ED.SOB ---
HPI - SOB/Dyspnea General Chief Complaint: Shortness of Breath/Dyspnea <Janine Mayfield PA-C - Last Filed: 08/02/24 22:31> Stated Complaint: SOB, poss pna <Janine Mayfield PA-C - Last Filed: 08/02/24 22:31> Time Seen by Provider: 08/02/24 17:48 <Janine Mayfield PA-C - Last Filed: 08/02/24 22:31> Source: patient <Janine Mayfield PA-C - Last Filed: 08/02/24 22:31> Mode of arrival: ambulatory <Janine Mayfield PA-C - Last Filed: 08/02/24 22:31> Limitations: no limitations <Janine Mayfield PA-C - Last Filed: 08/02/24 22:31> History of Present Illness HPI Narrative: This is a 69-year-old female that presents to the emergency department for shortness of breath. Reports she recently finished levofloxacin for pneumonia. She continues to feel short of breath. She also has right posterior shoulder brain that is worse with deep breathing and coughing. Reports history of COPD, chronically wears 1-2 L NC. Had to increase her oxygen due to shortness of breath. <Janine Mayfield PA-C - Last Filed: 08/02/24 22:31> Related Data Home Medications: Home Medications ?Medication ?Instructions ?Recorded ?Confirmed ?Last Taken ?Type aspirin 81 mg tablet,delayed 81 mg PO DAILY 06/02/19 08/02/24 08/02/24 History release (Adult Aspirin Regimen) cyclobenzaprine 5 mg tablet 5 mg PO BID 01/05/20 08/02/24 08/02/24 History oxycodone myristate 13.5 mg 13.5 mg PO Q12H 11/19/21 08/02/24 08/02/24 History capsule sprinkle extend release 12hr(DON'T CRUSH) (Xtampza ER) solifenacin 10 mg tablet (Vesicare) 5 mg PO HS 02/04/23 08/02/24 08/01/24 History cholecalciferol (vitamin D3) 125 125 mcg PO DAILY 07/24/23 08/02/24 06/12/24 History mcg (5,000 unit) tablet (Vitamin D3) guaifenesin 600 mg tablet, 600 mg PO Q12H 07/24/23 08/02/24 08/02/24 History extended release 12 hr (Mucinex) loratadine 10 mg tablet 10 mg PO DAILY 07/24/23 08/02/24 08/02/24 History albuterol sulfate 90 mcg/actuation See Rx Instructions .Route 03/15/24 08/02/24 Unknown History aerosol inhaler .COMPLEX PRN Shortness Of Breath Or Wheezing nicotine 21 mg/24 hr daily 1 patch transdermal DAILY 03/15/24 08/02/24 06/12/24 History transdermal patch gabapentin 300 mg capsule 300 mg PO Q8H 08/02/24 08/02/24 08/02/24 History lovastatin 40 mg tablet 40 mg PO HS 08/02/24 08/02/24 08/01/24 History <Janine Mayfield PA-C - Last Filed: 08/02/24 22:31> Allergies/Adverse Reactions: Allergies Allergy/AdvReac Type Severity Reaction Status Date / Time Penicillins Allergy Severe Anaphylaxis Verified 08/02/24 18:10 meperidine Allergy Intermediate Itching Verified 08/02/24 18:10 sulfamethoxazole (From Allergy Intermediate Mouth Verified 08/02/24 18:10 Bactrim) burning/redness trimethoprim (From Bactrim) Allergy Intermediate Mouth Verified 08/02/24 18:10 burning/redness mirtazapine AdvReac Mild Headache Verified 08/02/24 18:10 <Janine Mayfield PA-C - Last Filed: 08/02/24 22:31> Review of Systems Review of Systems: CONSTITUTIONAL: Denies fever CARDIOVASCULAR: Denies chest pain, or edema. RESPIRATORY: Reports cough and dyspnea. <Janine Mayfield PA-C - Last Filed: 08/02/24 22:31> All systems reviewed & are unremarkable except as noted in HPI and below <Janine Mayfield PA-C - Last Filed: 08/02/24 22:31> [facility] Past Medical History Medical History: Medical History OSWALD (iron deficiency anemia) Osteopenia Liana esophagitis RLS (restless legs syndrome) Esophageal dilatation Chronic narcotic use On home O2 Chronic sinusitis Dysphagia Olecranon bursitis, left elbow PSVT (paroxysmal supraventricular tachycardia) Change in bowel habits Kidney stones Fibromyalgia Rheumatoid arthritis Arthritis Constipation IBS (irritable bowel syndrome) GERD (gastroesophageal reflux disease) Stomach ulcer Wears glasses Ventricular ectopics Lumbar radiculopathy Family history of colon cancer Adenomatous colon polyp Esophageal stricture Urge incontinence ILD (interstitial lung disease) Small amount of interstitial lung disease was seen on base of lungs on chest CT 03/25/2018 which was an abdomen and pelvis CT Essential hypertension Oxygen dependent 2L w/activity, 1 w/rest Collagen vascular disease Hyperlipidemia, unspecified Infectious colitis Mass in neck Thrush Anxiety 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, patient unsure of this diagnosis COPD (chronic obstructive pulmonary disease) Tobacco abuse <Janine Mayfield PA-C - Last Filed: 08/02/24 22:31> Surgical History Surgical History: Surgical History History of partial hysterectomy Status post insertion of spinal cord stimulator History of bladder suspension procedure History of appendectomy History of lumbar surgery Spinal cord stimulator implanted 05/23/21 <Janine Mayfield PA-C - Last Filed: 08/02/24 22:31> Family History Family History: Family History Mother Patient's mother is , Onset Age: 72 Sibling Carcinoma of colon Ovarian cancer Lung cancer Rectal cancer Family history of malignant neoplasm of breast in first degree relative Father Brain aneurysm Other Arthritis COPD (chronic obstructive pulmonary disease) Cerebrovascular accident High cholesterol Hypertension Lung disease Neuropathy <Janine Mayfield PA-C - Last Filed: 08/02/24 22:31> Social History Social History: Social History Social History: caffeine-coffee/soda Smoking packs per day: 1 Smoking cigarettes per day: 20.0 Years smoked: 60 Smoking pack-years: 60.00 Smoking status: Current every day smoker Tobacco type: cigarettes Second hand tobacco smoke exposure: Yes Smoking end date: 05/19/23 Additional smoking assessment comments: TRYING TO STOP SMOKING, smoking ~3/4 pack/day currently Alcohol intake: never Substance use: never Substance use type: does not use Other substance usage details: EDIBLES Last use: 11-18-2021 Do You Feel Safe in your Home?: Yes Lack of Transportation: No Lack of Food: Never True Current Housing: I Have Housing Concerned About Future Housing: No Difficulty Paying Gas/Electric Bills: No Difficulty Paying for Meds: No Currently Unemployed: No Education: High School Diploma/GED Difficulty w/ Childcare or Family Care: No Living arrangements: alone Occupation/Education: retired Gender identity (if verbalized by the patient): Female Spiritual care concerns: No <Janine Mayfield PA-C - Last Filed: 08/02/24 22:31> Exam Narrative: GENERAL: Elderly, thin, and in no acute distress. HEAD: Normocephalic, atraumatic. EYES: EOMI. ENT: Nares clear, no rhinorrhea or epistaxis. Mucous membranes dry. Oropharynx without tonsillar hypertrophy exudate or other lesions. NECK: Supple. No adenopathy or masses. CHEST: No respiratory distress. Lung sounds diminished and coarse. No wheezes HEART: Regular rate and rhythm. No murmur heard. Normal peripheral pulses. EXTREMITIES: Normal range of motion. No edema. SKIN: Warm, dry, no rash. NEURO: No focal deficits. Alert and oriented x3. PSYCH: Normal mood and affect <Janine Mayfield PA-C - Last Filed: 08/02/24 22:31> Course Course Emergency Course: patient updated on her workup and recommendation for admission <Janine Mayfield PA-C - Last Filed: 08/02/24 22:31> GROUP SALES REPRESENTATIVE/PA Physician Supervision This visit was performed by both a physician and an APC. I performed all aspects of the MDM as documented. <Colt Amato MD - Last Filed: 08/04/24 12:47> Consultations Consultation #1: spoke with hospitalist about patient and workup who accepts admission <Janine Mayfield PA-C - Last Filed: 08/02/24 22:31> Date: 08/02/24 <Janine Mayfield PA-C - Last Filed: 08/02/24 22:31> Vital Signs Vital signs: Vital Signs Temperature 98.0 F 08/02/24 17:43 Pulse Rate 81 08/02/24 17:43 Respiratory Rate 26 H 08/02/24 17:43 Blood Pressure 138/75 08/02/24 17:43 Pulse Oximetry 89 L 08/02/24 17:43 Oxygen Delivery Nasal Cannula 08/02/24 17:43 Oxygen Flow Rate 3 08/02/24 17:43 Temperature 97.4 F L 08/04/24 09:47 Pulse Rate 80 08/04/24 09:47 Respiratory Rate 18 08/04/24 09:47 Blood Pressure 93/72 L 08/04/24 09:47 Pulse Oximetry 98 08/04/24 09:47 Oxygen Delivery Nasal Cannula 08/04/24 09:44 Oxygen Flow Rate 2 08/04/24 09:44 <Janine Mayfield PA-C - Last Filed: 08/02/24 22:31> Vital Signs Temperature 98.0 F 08/02/24 17:43 Pulse Rate 81 08/02/24 17:43 Respiratory Rate 26 H 08/02/24 17:43 Blood Pressure 138/75 08/02/24 17:43 Pulse Oximetry 89 L 08/02/24 17:43 Oxygen Delivery Nasal Cannula 08/02/24 17:43 Oxygen Flow Rate 3 08/02/24 17:43 Temperature 97.4 F L 08/04/24 09:47 Pulse Rate 80 08/04/24 09:47 Respiratory Rate 18 08/04/24 09:47 Blood Pressure 93/72 L 08/04/24 09:47 Pulse Oximetry 98 08/04/24 09:47 Oxygen Delivery Nasal Cannula 08/04/24 09:44 Oxygen Flow Rate 2 08/04/24 09:44 <Colt Amato MD - Last Filed: 08/04/24 12:47> MDM - SOB/Dyspnea MDM Narrative Medical decision making narrative: Patient presents the emergency department for acute on chronic. Noted to be in the high 80s on her usual oxygen via nasal cannula. This was increased to 3 L. She is afebrile and nontoxic appearing. Lung sounds quite diminished upon arrival. Given nebulizer treatment and steroid. Reports recently finished antibiotics for pneumonia. Cbc without leukocytosis. Shows hemoconcentration. Metabolic panel without concerning findings. Influenza, RSV and COVID screens are negative. CTA obtained further evaluation. No PE. Shows panlobular emphysema without acute pulmonary disease. Abdomen and pelvis obtained due to findings of possible bowel distension on senior research scientist films of CTA. No acute findings in the abdomen and pelvis. patient updated on her workup and recommendation for admission. spoke with hospitalist about patient and workup who accepts admission <Janine Mayfield PA-C - Last Filed: 08/02/24 22:31> Differential Diagnosis Differential diagnosis: Likely acute exacerbation of chronic obstructive airways disease, congestive heart failure, community acquired pneumonia and pulmonary embolism <Janine Mayfield PA-C - Last Filed: 08/02/24 22:31> Lab Data Attestation: I reviewed the patient's lab results. <Janine Mayfield PA-C - Last Filed: 08/02/24 22:31> Result diagrams: 08/04/24 05:03 08/04/24 05:03 <LETA Barney Last Filed: 08/02/24 22:31> Labs: Lab Results 08/02/24 Range/Units 18:02 WBC 8.2 (4.5-10.0) K/mm3 RBC 5.11 (4.2-5.4) M/mm3 Hgb 15.8 H (12.0-15.0) g/dL Hct 49.1 H (37.0-47.0) % MCV 96.1 (80-100) fl MCH 30.9 (26-34) pg MCHC 32.2 (32-36) g/dl RDW 12.2 (11.5-14.5) % Plt Count 223 D (150-375) k/mm3 MPV 9.7 (7.4-10.4) fl Immature Gran % (Auto) 0.2 (0-0.5) % Neut % (Auto) 62.5 (45.5-73.1) % Lymph % (Auto) 25.4 (18.3-44.2) % [facility] % (Auto) 9.5 H (2.6-8.5) % Eos % (Auto) 1.9 (0-4.4) % Baso % (Auto) 0.5 (0.2-1.2) % Lymph # (Auto) 2.09 (0.9-3.2) K/mm3 [facility] # (Auto) 0.8 H (0.1-0.6) K/mm3 Eos # (Auto) 0.2 (0-0.3) K/mm3 Baso # (Auto) 0.0 (0.0-0.1) K/mm3 Abs Immat Gran (auto) 0.02 (0.00-0.031) K/mm3 Absolute Neuts (auto) 5.2 (1.3-6.7) K/mm3 Absolute Nucleated RBC 0.000 (0.0-0.012) K/mm3 Nucleated RBC % 0.0 (0.0-0.2) % PT 13.3 (11.1-14.7) Seconds INR 1.0 APTT 29.0 (22.3-36.8) Seconds Sodium 139 (137-145) mmol/L Potassium 4.3 (3.4-5.0) mmol/L Chloride 98 (98-107) mmol/L Carbon Dioxide 34 H (22-30) mmol/L Anion Gap 7 (4-12) mmol/L BUN 19 H (7-17) mg/dL Creatinine 0.71 (0.7-1.0) mg/dL Estim Creat Clear Calc 44 ml/min Estimated GFR > 60 (59 - ) Glucose 93 (65-110) mg/dL Lactic Acid 1.1 (0.7-2.0) mmol/L Calcium 9.4 (8.4-10.2) mg/dL Magnesium 2.3 (1.6-2.3) mg/dL Total Bilirubin 0.4 (0.2-1.3) mg/dL AST 31 (14-36) U/L ALT 18 (6-35) U/L Alkaline Phosphatase 97 (38-126) U/L NT-Pro-B Natriuret Pep 1750 H (19.9-100) pg/mL Total Protein 8.0 (6.3-8.2) g/dL Albumin 4.4 (3.5-5.1) g/dL Influenza A (RT-PCR) Negative (Negative) Influenza B (RT-PCR) Negative (Negative) RSV (RT-PCR) Negative (Negative) SARS-CoV-2 RNA (RT-PCR) Negative (Negative) <Janine Mayfield PA-C - Last Filed: 08/02/24 22:31> Lab Results 08/02/24 Range/Units 18:02 WBC 8.2 (4.5-10.0) K/mm3 RBC 5.11 (4.2-5.4) M/mm3 Hgb 15.8 H (12.0-15.0) g/dL Hct 49.1 H (37.0-47.0) % MCV 96.1 (80-100) fl MCH 30.9 (26-34) pg MCHC 32.2 (32-36) g/dl RDW 12.2 (11.5-14.5) % Plt Count 223 D (150-375) k/mm3 MPV 9.7 (7.4-10.4) fl Immature Gran % (Auto) 0.2 (0-0.5) % Neut % (Auto) 62.5 (45.5-73.1) % Lymph % (Auto) 25.4 (18.3-44.2) % [facility] % (Auto) 9.5 H (2.6-8.5) % Eos % (Auto) 1.9 (0-4.4) % Baso % (Auto) 0.5 (0.2-1.2) % Lymph # (Auto) 2.09 (0.9-3.2) K/mm3 [facility] # (Auto) 0.8 H (0.1-0.6) K/mm3 Eos # (Auto) 0.2 (0-0.3) K/mm3 Baso # (Auto) 0.0 (0.0-0.1) K/mm3 Abs Immat Gran (auto) 0.02 (0.00-0.031) K/mm3 Absolute Neuts (auto) 5.2 (1.3-6.7) K/mm3 Absolute Nucleated RBC 0.000 (0.0-0.012) K/mm3 Nucleated RBC % 0.0 (0.0-0.2) % PT 13.3 (11.1-14.7) Seconds INR 1.0 APTT 29.0 (22.3-36.8) Seconds Sodium 139 (137-145) mmol/L Potassium 4.3 (3.4-5.0) mmol/L Chloride 98 (98-107) mmol/L Carbon Dioxide 34 H (22-30) mmol/L Anion Gap 7 (4-12) mmol/L BUN 19 H (7-17) mg/dL Creatinine 0.71 (0.7-1.0) mg/dL Estim Creat Clear Calc 44 ml/min Estimated GFR > 60 (59 - ) Glucose 93 (65-110) mg/dL Lactic Acid 1.1 (0.7-2.0) mmol/L Calcium 9.4 (8.4-10.2) mg/dL Magnesium 2.3 (1.6-2.3) mg/dL Total Bilirubin 0.4 (0.2-1.3) mg/dL AST 31 (14-36) U/L ALT 18 (6-35) U/L Alkaline Phosphatase 97 (38-126) U/L NT-Pro-B Natriuret Pep 1750 H (19.9-100) pg/mL Total Protein 8.0 (6.3-8.2) g/dL Albumin 4.4 (3.5-5.1) g/dL Influenza A (RT-PCR) Negative (Negative) Influenza B (RT-PCR) Negative (Negative) RSV (RT-PCR) Negative (Negative) SARS-CoV-2 RNA (RT-PCR) Negative (Negative) <Colt Amato MD - Last Filed: 08/04/24 12:47> ABG Data ABG results: 08/02/24 17:56 Puncture Site Right brachial ABG pH 7.346 L ABG pCO2 59.6 H ABG pO2 128.3 H ABG PO2/FiO2 Ratio 4.58 ABG HCO3 31.9 H ABG O2 Saturation 98.3 ABG O2 Content 19.5 ABG Base Excess 4.2 A-a Gradient 1.0 Oxyhemoglobin 87.5 L* Total Hemoglobin 15.7 O2 Delivery Device Nasal cannula O2 Liters/Min 2.0 FiO2 28 <Janine Mayfield PA-C - Last Filed: 08/02/24 22:31> 08/02/24 17:56 Puncture Site Right brachial ABG pH 7.346 L ABG pCO2 59.6 H ABG pO2 128.3 H ABG PO2/FiO2 Ratio 4.58 ABG HCO3 31.9 H ABG O2 Saturation 98.3 ABG O2 Content 19.5 ABG Base Excess 4.2 A-a Gradient 1.0 Oxyhemoglobin 87.5 L* Total Hemoglobin 15.7 O2 Delivery Device Nasal cannula O2 Liters/Min 2.0 FiO2 28 <Colt Amato MD - Last Filed: 08/04/24 12:47> Imaging Data Radiologist's impression: ITS Impressions Chest X-Ray 08/02/24 18:50 IMPRESSION: Stable chronic interstitial change, without focal infiltrate or effusion. Chest CTA 08/02/24 19:47 IMPRESSION: No pulmonary embolus. No thoracic aortic dissection. Panlobular emphysema without acute pulmonary disease. Abdomen/Pelvis CT 08/02/24 19:52 IMPRESSION: Panlobular emphysematous disease. No acute pathology detected within the abdomen or pelvis, as detailed above. <Janine Mayfield PA-C - Last Filed: 08/02/24 22:31> ECG Data EKG #1: ECG completion date: 08/02/24 <Janine Mayfield PA-C - Last Filed: 08/02/24 22:31> EKG Interpretation: normal rate, sinus rhythm, no ST changes and normal QT <Janine Mayfield PA-C - Last Filed: 08/02/24 22:31> Critical Care Time Critical Care Time Critical Care Time: Yes <LETA Barney Last Filed: 08/02/24 22:31> Total Critical Care Time: 35 <Janine Mayfield PA-C - Last Filed: 08/02/24 22:31> Discharge Plan Discharge Clinical Impression: COPD exacerbation Acute on chronic respiratory failure Qualifiers: Respiratory failure complication: hypoxia and hypercapnia Qualified Code(s): J96.21 - Acute and chronic respiratory failure with hypoxia <Janine Mayfield PA-C - Last Filed: 08/02/24 22:31> Patient Disposition: Still a Patient <LETA Barney Last Filed: 08/02/24 22:31> Condition: Improved <Janine Mayfield PA-C - Last Filed: 08/02/24 22:31>
[2024-08-02] MEDS: IPRATROPIUM 0.5 MG/ALBUTEROL SULFATE 2.5 MG AMPUL.NEB 3 ML INHALATION (18:09)
[2024-08-02 18:12] LABS: Basophils Percent Auto 0.5 % (0.2-1.2); Eosinophils Absolute Auto 0.2 K/mm3 (0-0.3); Eosinophils Percent Auto 1.9 % (0-4.4); Hematocrit 49.1 % (37.0-47.0); Hemoglobin 15.8 g/dL (12.0-15.0); Immature Granulocyte Absolute 0.02 K/mm3 (0.00-0.031); Immature Granulocyte Percent A 0.2 % (0-0.5); Lymphocytes Absolute Auto 2.09 K/mm3 (0.9-3.2); Lymphocytes Percent Auto 25.4 % (18.3-44.2); Mean Corpuscular HGB Conc 32.2 g/dl (32-36); Mean Corpuscular Hemoglobin 30.9 pg (26-34); Mean Corpuscular Volume 96.1 fl (80-100); Mean Platelet Volume 9.7 fl (7.4-10.4); Monocytes Absolute Auto 0.8 K/mm3 (0.1-0.6); Monocytes Percent Auto 9.5 % (2.6-8.5); Neutrophils Absolute Auto 5.2 K/mm3 (1.3-6.7); Neutrophils Percent Auto 62.5 % (45.5-73.1); Platelet Count Result 223 k/mm3 (150-375); Red Blood Count 5.11 M/mm3 (4.2-5.4); Red Cell Distribution Width 12.2 % (11.5-14.5); White Blood Count 8.2 K/mm3 (4.5-10.0)
[2024-08-02] MEDS: MAGNESIUM SULF 2 GM/WATER 50ML 2 GM/50 ML BAG IVPB (18:13)
[2024-08-02] MEDS: methylPREDNISolone SOD SUCC 125 MG VIAL IV PUSH (18:14)
[2024-08-02 18:16] LABS: Base Excess ABG 4.2 mEq/l (+/-2.0); Fractional Inspired Oxygen 28 %; HCO3 ABG 31.9 mEq/l (22.0-26.0); Oxygen Content ABG 19.5 %vol (16.0-22.0); Oxygen Saturation ABG 98.3 % (95.0-100.0); PCO2 ABG 59.6 mmHg (35.0-45.0); PO2 ABG 128.3 mmHg (80.0-100.0); PO2 FiO2 Ratio Arterial Blood 4.58 %; Total Hemoglobin 15.7 g/dL (12.0-18.0); pH ABG 7.346 (7.350-7.450)
--- OUTSIDE RECORDS SUMMARY | 2024-08-02 18:19 | XMS_ITS | Encounter Summary ---
Author Organization [facility] Address [address] [place] [address] Care Team Providers Care Private Duty Lpn Name Role Phone Milena Dos Santos MD Primary Care Provider [phone] Tommy King DO Primary Care Provider [phone] [place] MD Unavailable [phone] Yvan Jaime MD Unavailable [phone] None, Provider Primary Care Provider Unavaila ble Encounter Details Date Type Department Care Team (Latest Contact Info) Description 03/09/2018 Abstract [facility] Michael Mclean MD Social History Tobacco Use Types Packs/Day Years Used Date Smoking Tobacco: Smoker, Current Status Unknown Comments Unknown Sex and Gender Information Value Date Recorded Sex Assigned at Not on file Legal Sex Female 11:35 PM CDT Gender Identity Female 05/09/2021 3:57 PM [employer] HELICOPTER Sexual Orientation Straight 05/09/2021 3: 57 PM [employer] HELICOPTER documented as of this encounter Plan of Treatment Not on file documented as of this encounter Visit Diagnoses Not on filedocumented in this encounter Care Teams Private Duty Lpn Relationship Specialty Start Date End Date Milena Dos Santos MD [address] [place] [address] PCP - General 06/03/16 04/03/19 Tommy King DO [address] [place] [address] PCP - General INTERNAL MEDICINE 04/04/19 03/27/22 None, [place], PCP - General UNKNOWN PHYSICIAN SPECIALTY 03/28/22 [place] Pino MD [address] [place] [address] UROLOGY 05/03/19 Yvan Jaime MD [address] [place] [address] Surgeon NEUROLOGICAL SURGERY 05/03/19 documented as of this encounter
--- OUTSIDE RECORDS SUMMARY | 2024-08-02 18:19 | XMS_ITS | Referral Summary ---
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
--- OUTSIDE RECORDS SUMMARY | 2024-08-02 18:19 | XMS_ITS | Clinical Summary ---
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 Sexual Orientation Straight 05/09/2021 3: 57 PM NEEDLE VALVE OPERATOR Last Filed Vital Signs Vital Sign Reading Time Taken Comments Blood Pressure 106/60 03/28/2022 9:13 AM NEEDLE VALVE OPERATOR Pulse 80 03/28/2022 9:13 AM NEEDLE VALVE OPERATOR Temperature 36.1 C (97 F) 03/28/2022 9:13 AM NEEDLE VALVE OPERATOR Respiratory Rate 20 03/28/2022 9:13 AM NEEDLE VALVE OPERATOR Oxygen Saturation 94% 03/28/2022 9:13 AM NEEDLE VALVE OPERATOR Inhaled Oxygen Concentration - - Weight 52.6 kg (116 lb) 03/28/2022 9:13 AM NEEDLE VALVE OPERATOR Height 167.6 cm (5' 6 ) 03/28/2022 9:13 AM NEEDLE VALVE OPERATOR Body Mass Index 18.72 03/28/2022 9:13 AM NEEDLE VALVE OPERATOR Plan of Treatment Health Maintenance Due Date [...] this topic Medical Devices Implanted Type Area Leather Heel Breaster Device Identifier Shelf Expiration Date Model / Serial / Lot Stent Bard [place] 6fr X 24cm - [id number] Implanted:Qty : 1 on 05/17/2019 by West Pino MD at [facility] Stent Left: Ureter [employer] 05/12/2023 [id number] / / [id number] Stent Bard [place] 6fr X 24cm - [id number] Implanted:Qty : 1 on 05/17/2019 by West Pino MD at [facility] Stent Right: Ureter [employer] 05/12/2023 [id number] / / [id number] Stent Ureteral Pigtail 6fr 24cm Crv Taper Tip - [id number] Implanted:Qty : 1 on 02/26/2021 by West Pino MD at [facility] Stent Left: Ureter D[employer] LANI [id number] 11/28/2023 [id number] / [id number] Procedures Procedure Name Priority Date/Time Associated Diagnosis Comments MG SCREENING PAIGE DIGI Routine 04/16/2015 3:06 PM NEEDLE VALVE OPERATOR from Last 3 Months or Most Recently Relevant to Health Maintenance Results * MG SCREENING PAIGE DIGI (04/16/2015 3:06 PM NEEDLE VALVE OPERATOR) Anatomical Region Laterality Modality Breast Bilateral Mammography 04/16/2015 3:06 PM NEEDLE VALVE OPERATOR 04/16/2015 3:06 PM NEEDLE VALVE OPERATOR Narrative 04/16/2015 3:24 PM NEEDLE VALVE OPERATOR MELYSSA MCCALL ADMIT/SERVICE DATE: 04/16/15 ACCT: [id number] DISCHARGE DATE: : 1955 SEX: F ORD SITE: [facility] PT TYPE: REG CLI ORDERING MD: MANE RAMIREZ MD STUDY DATE REPORT # ORDER # EXT ORDER ID 04/16/15 [id number] PROC CODE: SCMAMDGB PROCEDURE DESCRIPTION: MG SCREEN [...] - 02/26/2018 MELYSSA MCCALL ADMIT/SERVICE DATE:04/16/15 ACCT: [id number] DISCHARGE DATE: : 1955 SEX: F ORD SITE: [facility] PT TYPE: REG CLI ORDERING MD:MANE RAMIREZ MD STUDY DATE REPORT # ORDER # EXT ORDER ID 04/16/15 [id number] PROC CODE: SCMAMDGB PROCEDURE DESCRIPTION: MG SCREEN [...] 1:01 PM 02/26/2021 3:43 PM Care Teams Manager Financial Systems Relationship Specialty Start Date End Date None, Shena, PCP - General UNKNOWN PHYSICIAN SPECIALTY 03/28/22 West Pino MD UROLOGY 05/03/19 Yvan Jaime MD [address] [place] [address] Surgeon NEUROLOGICAL SURGERY 05/03/19
--- OUTSIDE RECORDS SUMMARY | 2024-08-02 18:19 | XMS_ITS | Clinical Summary ---
Author Organization [facility] Address [address] [address] Care Team Providers Care Academic Computing Director Name Role Phone Tommy King DO Primary Care Provider [phone] Source Comments [facility],non-owned Affiliates and Associated Physician Practices is amultiple site organization consisting of ambulatory clinics and [place] sitesin [place] and [place]. This disclosure is being madepursuant to the Care Everywhere program and may not contain all information available regarding this patient. Last updated 18.[facility] Allergies Active Allergy Reactions Criticality [...] fluticasone propionate (FLONASE) 50 MCG/ACT nasal spray Henry 2 sprays into the nose once daily [...] 81 mg by mouth once daily Active Ijrocccqucpuhtm-EU-VC -APAP (ROBITUSSIN COLD/COUGH/FLU PO) Take 13.5 mg by mouth Active clotrimazole-betameth asone (LOTRISONE) 1-0.05 % cream APPLY TOPICALLY TO THE AFFECTED AREA TWICE DAILY 04/24/2021 Active potassium citrate (UROCIT K 10) 10 MEQ (1080 MG) tablet 06/10/2021 Active doxycycline monohydrate 100 MG tablet TAKE 1 TABLET BY MOUTH DAILY FOR 10 DAYS 05/06/2021 Active bdavsqdd-pfbdqhfij-tz xameth (MAXITROL) ophthalmic suspension 07/30/2021 Act amadeo [...] 36.8 C (98.3 F) 06/12/2021 10:53 AM 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 Back Advanced Neuromodulation Systems 10/19/2022 [id number] / [id number] / Slnt Dura Duraseal Pg Trilysine Amine 5 Implanted:Qty: 1 on 05/23/2021 by Esau Rose MD at [facility] Back Integra [employer] Erendira [id number] / / [id number] Gntr Nrstm 1.95inx2.19in Proclaim Elt - [id number] Implanted:Qty: 1 on 05/23/2021 by Esau Rose MD at [facility] Left: Back [employer] 03/26/2023 [id number] / [id number] / Care Teams Academic Computing Director Relationship Specialty Start Date End Date Tommy King DO PCP - General Internal Medicine 04/23/21
--- OUTSIDE RECORDS SUMMARY | 2024-08-02 18:19 | XMS_ITS | Clinical Summary ---
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
--- OUTSIDE RECORDS SUMMARY | 2024-08-02 18:19 | XMS_ITS | Continuity of Care Document ---
Author Organization [facility] Address [address] [place] [address] Phone Care Team Providers Care House Wirer Helper Name Role Phone Sherif Doyle MD Unavailable Unavailable Allergies, Adverse Reactions, Alerts Substance Reaction Status Criticality PENICILLIN G POTASSIUM Active No In formation MEPERIDINE HCL Active No Informatio n Medications Medication Instructions Dosage Effective Dates (start - stop) Status Comments METHADOSE 5 MGTABLET tk 2 ts qd - Acti ve Lidoderm 5 % (700 mg/patch) Adhesive Patch - Active Miacalcin 200 unit/Actuation Nasal [place] [employer] Aerosol 1 spray each nostril qd - [...] on Encounter [facility], [address], [id number], [place] tel:[phone] [facility] No Information 6 Vivek Gorman. [address] [place] [address], [id number] , [place]. tel:[phone] Offic/outpt E&m Estab Minor 10 [facility], [address] [address], [place], [place], [id number], [place] tel:[phone] [facility] No Information 6 José Luis Sullivan. [address] [facility], [address], [id number] , [place]. tel:[phone] Referring Provider: Nate Ordonez V, [address], [address] . tel:[phone] [facility], [address], [place], [place], [id number], [place] tel:[phone] [facility] No Information 6 José Luis Sullivan. [address], [place], [place], [id number] , [place]. tel: [phone] Referring Provider: Nate Ordonez V, [address], [place], [address] . tel:[phone] [facility], [address], [place], [place], [id number], [place] tel:[phone] [facility] No Information 6 José Luis Sullivan. [address], [place], [place], [id number] , [place]. tel: [phone] Referring Provider: Nate Ordonez V, [address], [place], [address] . tel:[phone] Offic/outpt E&m Estab Low-mod [facility], [address], [place], [place], [address], [place] tel:[phone] [facility] No Information 6 José Luis Sullivan. [address], [place], [place], [id number] , [place]. tel:[phone] Referring Provider: Nate Ordonez V, [address], [place], [address] . tel:[phone] Offic/outpt E&m Estab Low-mod [facility], [address], [place], [place], [id number], [place] tel:[phone] [facility] No Information 6 José Luis Sullivan. [address], [place], [place], [address] , [place]. tel: [phone] Referring Provider: Nate Ordonez V, [address], [place], [address] . tel:[phone] Offic/outpt E&m Estab Minor 10 [facility], [address], [place], [place], [id number], [place] tel:[phone] [facility] No Information May-0 9-200 6 José Luis Sullivan. [address], [place], [place], [id number] , [place]. tel:[phone] Referring Provider: Nate Ordonez V, [address], [place], [address] . tel:[phone] [facility], [address], [place], [place], [address], [place] tel:[phone] [facility] No Information May-0 5-200 6 José Luis Sullivan. [address], [place], [place], [id number] , [place]. tel:[phone] Referring Provider: Nate Ordonez V, [address], [place], [address] . tel:[phone] [facility], [address], [place], [place], [address], [place] tel:[phone] [facility] No Information May-0 2-200 6 José Luis Sullivan. [address], [place], [place], [id number] , [place]. tel:[phone] Referring Provider: Nate Ordonez V, [address], [place], [address] . tel:[phone] [facility], [address], [place], [place], [address], [place] tel:[phone] [facility] No Information Apr-2 8-200 6 Ordonez Nate. [address], [place], [place], [id number] , [place]. tel:[phone] Referring Provider: Nate Ordonez V, [address], [place], [address] . tel:[phone] [facility], [address], [place], [place], [address], [place] tel:[phone] [facility] No Information Aug- 5-200 6 José Luis Sullivan. [address], [place], [place], [id number] , [place]. tel:[phone] Referring Provider: Nate Ordonez V, [address], [place], [address] . tel:[phone] [facility], [address], [place], [place], [id number], [place] tel:[phone] [facility] No Information 6 José Luis Sullivan. [address], [place], [place], [id number] , [place]. tel:[phone] Referring Provider: Nate Ordonez V, [address], [place], [address] . tel:[phone] [facility], [address], [place], [place], [address], [place] tel:[phone] [facility]Y No Information 200 6 José Luis Sullivan. [address], [place], [place], [address] , [place]. tel:[phone] Referring Provider: Nate Ordonez V, [address], [place], [address] . tel:[phone] Offic Cons New/estab Mod-hi 60 [facility], [address], [place], [place], [id number], [place] tel:[phone] [facility] No Information 8-200 6 José Luis Sullivan. [address], [facility] [address], [place], [place], [id number] , [place]. tel:[phone] Referring Provider: Nicho Goldstein MD B, [address] [place] [place], [address]. tel:[phone] Family History Family Member Type Diagnosis Age At Onset Gen Fam Hx Problem (finding) Cancer Gen Fam Hx Problem (finding) Stroke Payers Payer name Insurance type Covered republican ID Authorstepha jevon(s) BCBS Of [facility] [id number] Social History Type Description Quantity Date Captured [...]
[2024-08-02] MEDS: SODIUM CHLORIDE 0.9% IV 500 ML 999 ML IV CONT (18:22)
[2024-08-02 18:24] LABS: Device NASAL CANNULA; Modified Allen's Test Pass; Oxyhemoglobin 87.5 % THb (90.0-100.0); Site Drawn RIGHT BRACHIAL
[2024-08-02 18:26] LABS: Lactic Acid Reflex 1.1 mmol/L (0.7-2.0)
[2024-08-02 18:27] LABS: Prothrombin Time 13.3 Seconds (11.1-14.7)
[2024-08-02 18:28] LABS: Alanine Aminotransferase 18 U/L (6-35); Albumin Level 4.4 g/dL (3.5-5.1); Alkaline Phosphatase 97 U/L (38-126); Anion Gap 7 mmol/L (4-12); Aspartate Amino Transferase 31 U/L (14-36); Bilirubin,Total 0.4 mg/dL (0.2-1.3); Blood Urea Nitrogen 19 mg/dL (7-17); Calcium 9.4 mg/dL (8.4-10.2); Carbon Dioxide 34 mmol/L (22-30); Chloride 98 mmol/L (98-107); Estimated CRCL calculation 44 ml/min; Estimated Glomerular Filt Rate > 60; Glucose 93 mg/dL (65-110); Potassium 4.3 mmol/L (3.4-5.0); Sodium 139 mmol/L (137-145)
[2024-08-02 18:36] LABS: NT Pro B Type Natriuretic Pept 1750 pg/mL (19.9-100)
[2024-08-02 18:48] LABS: Influenza A QL RT-PCR Negative (Negative); Influenza B QL RT-PCR Negative (Negative); RSV RNA, RT-PCR Negative (Negative); SARS-CoV-2 RNA PCR Negative (Negative)
[2024-08-02 19:05] LABS: Magnesium 2.3 mg/dL (1.6-2.3)
--- NOTE | 2024-08-02 20:54 | PM.IMHP ---
H&P: HPI History of Present Illness Date/Time: 08/02/24 20:54 Chief Complaint: Shortness of Breath Narrative: 69 y/o F with PMH of COPD w/chronic respiratory failure on 1-2L, paroxysmal SVT, HLD, HTN, iron deficiency anemia, anxiety and depression. The patient presents here from home for further evaluation of shortness of breath. She reports onset yesterday or the day before, briefly had some relief this afternoon before it worsened. Patient utilized her home nebulizer and inhaler without relief. The shortness of breath is accompanied by a dry cough (chronic), fever, night sweats, and nausea (secondary to abx use). She denies chills, body aches, vomiting or diarrhea. Of note, she was recently placed on antibiotics for pneumonia and completed this course yesterday, 08/02. She also has a history of chronic respiratory failure on 1-2 L of home O2 at all times (1 with rest and 2 with activity). She did increase her home oxygen to 3L NC with no relief. She arrived to the emergency department 89% on 3L. Initial VS at presentation: 98? F, HR 81, R 26, 138/75, and 89% on 3 L NC. Now 100% on 2 L NC. ED workup showed: No leukocytosis, hemoglobin 15.8 (16.0 on 03/17/2024), normal coags, ABG showed pH 7.346/CO2 59.6/O2 128.3/HC03 31.9, no significant electrolyte derangements, creatinine 0.71 and GFR >60, lactic 1.1, BNP 1750. Viral PCR negative. CXR showed stable chronic interstitial change without focal infiltrate or effusion. Chest CTA showed no PE, no thoracic aortic dissection, panlobular emphysema without acute pulmonary disease. CT abdomen/pelvis showed panlobular emphysematous disease and no acute pathology detected within the abdomen and pelvis. Review of Systems Review of Systems: All systems reviewed & are unremarkable except as noted in HPI and below PMFSH Past Medical History Medical History OSWALD (iron deficiency anemia) Osteopenia Liana esophagitis RLS (restless legs syndrome) Esophageal dilatation Chronic narcotic use On home O2 Chronic sinusitis Dysphagia Olecranon bursitis, left elbow PSVT (paroxysmal supraventricular tachycardia) Change in bowel habits Kidney stones Fibromyalgia Rheumatoid arthritis Arthritis Constipation IBS (irritable bowel syndrome) GERD (gastroesophageal reflux disease) Stomach ulcer Wears glasses Ventricular ectopics Lumbar radiculopathy Family history of colon cancer Adenomatous colon polyp Esophageal stricture Urge incontinence ILD (interstitial lung disease) Small amount of interstitial lung disease was seen on base of lungs on chest CT 03/25/2018 which was an abdomen and pelvis CT Essential hypertension Oxygen dependent 2L w/activity, 1 w/rest Collagen vascular disease Hyperlipidemia, unspecified Infectious colitis Mass in neck Thrush Anxiety 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, patient unsure of this diagnosis COPD (chronic obstructive pulmonary disease) Tobacco abuse Surgical History Surgical History History of partial hysterectomy Status post insertion of spinal cord stimulator History of bladder suspension procedure History of appendectomy History of lumbar surgery Spinal cord stimulator implanted 05/23/21 Family History Family History Mother Patient's mother is , Onset Age: 72 Sibling Carcinoma of colon Ovarian cancer Lung cancer Rectal cancer Family history of malignant neoplasm of breast in first degree relative Father Brain aneurysm Other Arthritis COPD (chronic obstructive pulmonary disease) Cerebrovascular accident High cholesterol Hypertension Lung disease Neuropathy Social History Social History Social History: caffeine-coffee/soda Smoking packs per day: 1 Smoking cigarettes per day: 20.0 Years smoked: 55 Smoking pack-years: 55.00 Smoking status: Current every day smoker Tobacco type: cigarettes Second hand tobacco smoke exposure: Yes Smoking end date: 05/19/23 Additional smoking assessment comments: TRYING TO STOP SMOKING, smoking ~3/4 pack/day currently Alcohol intake: never Substance use: never Substance use type: does not use Other substance usage details: EDIBLES Last use: 11-18-2021 Do You Feel Safe in your Home?: Yes Lack of Transportation: No Lack of Food: Never True Current Housing: I Have Housing Concerned About Future Housing: No Difficulty Paying Gas/Electric Bills: No Difficulty Paying for Meds: No Currently Unemployed: No Education: High School Diploma/GED Difficulty w/ Childcare or Family Care: No Living arrangements: alone Occupation/Education: retired Gender identity (if verbalized by the patient): Female Spiritual care concerns: No Meds Home Medications and Allergies Home Medications ?Medication ?Instructions ?Recorded ?Confirmed ?Type aspirin 81 mg tablet,delayed 81 mg PO DAILY 06/02/19 06/13/24 History release (Adult Aspirin Regimen) cyclobenzaprine 5 mg tablet 5 mg PO BID 01/05/20 06/13/24 History oxycodone myristate 13.5 mg 13.5 mg PO BID 11/19/21 06/13/24 History capsule sprinkle extend release 12hr(DON'T CRUSH) (Xtampza ER) solifenacin 10 mg tablet (Vesicare) 5 mg PO DAILY 02/04/23 06/13/24 History cholecalciferol (vitamin D3) 125 125 mcg PO DAILY 07/24/23 06/13/24 History mcg (5,000 unit) tablet (Vitamin D3) guaifenesin 600 mg tablet, 600 mg PO Q12H 07/24/23 06/13/24 History extended release 12 hr (Mucinex) loratadine 10 mg tablet 10 mg PO DAILY 07/24/23 06/13/24 History ferrous sulfate 325 mg (65 mg See Rx Instructions .Route 09/18/23 06/13/24 Rx iron) tablet (FeroSul) .COMPLEX #30 tabs metoprolol succinate 25 mg See Rx Instructions .Route 10/28/23 06/13/24 Rx tablet,extended release 24 hr .COMPLEX #90 tabs iicemtwb-nbff-vnsc 8 mg-folic 400 1 tablet PO DAILY 11/19/23 06/13/24 History mcg-K 50 mcg-lutein 300 mcg tablet (Centrum Silver Women) albuterol sulfate 90 mcg/actuation See Rx Instructions .Route 03/15/24 06/09/24 History aerosol inhaler .COMPLEX PRN Shortness Of Breath Or Wheezing ketoconazole 2 % topical cream 1 applic topical BID PRN Skin 03/15/24 06/13/24 History Irritation nicotine 21 mg/24 hr daily 1 patch transdermal DAILY 03/15/24 06/13/24 History transdermal patch mupirocin 2 % topical ointment 1 applic topical BID PRN skin 04/13/24 06/09/24 Rx irritation #50 grams omeprazole 40 mg capsule,delayed 40 mg PO DAILY #90 caps 06/02/24 06/13/24 Rx release albuterol sulfate 2.5 mg/3 mL 2.5 mg (3 mL) inhalation Q4-6H PRN 06/07/24 06/10/24 Rx (0.083 %) solution for nebulization shortness of breath or wheezing #180 mL gabapentin 300 mg capsule See Rx Instructions .Route 06/09/24 06/13/24 Rx .COMPLEX #270 caps nystatin 100,000 unit/mL oral 5 ml PO QID PRN thrush #473 mL 06/09/24 06/10/24 Rx suspension paroxetine HCl 20 mg tablet See Rx Instructions .Route 06/17/24 Rx .COMPLEX #90 tabs tiotropium 2.5 mcg-olodaterol 2.5 See Rx Instructions .Route 06/20/24 Rx mcg/actuation mist for inhalation .COMPLEX #4 grams (Stiolto Respimat) prednisone 10 mg tablet See Rx Instructions PO DAILY #34 07/01/24 Rx tabs lovastatin 40 mg tablet See Rx Instructions .Route 07/06/24 Rx .COMPLEX #90 tabs fluticasone propionate 50 1 spray intranasal BID PRN nasal 07/11/24 Rx mcg/actuation nasal congestion #16 grams spray,suspension (Flonase Allergy Relief) doxycycline hyclate 100 mg tablet 100 mg PO DAILY #7 tabs 07/18/24 Rx levofloxacin 750 mg tablet 750 mg PO DAILY #7 tabs 07/25/24 Rx Allergies Allergy/AdvReac Type Severity Reaction Status Date / Time Penicillins Allergy Severe Anaphylaxis Verified 08/02/24 18:10 meperidine Allergy Intermediate Itching Verified 08/02/24 18:10 sulfamethoxazole (From Allergy Intermediate Mouth Verified 08/02/24 18:10 Bactrim) burning/redness trimethoprim (From Bactrim) Allergy Intermediate Mouth Verified 08/02/24 18:10 burning/redness mirtazapine AdvReac Mild Headache Verified 08/02/24 18:10 Vital Signs Vital Signs - 24 hr 08/02/24 17:43 08/02/24 18:07 08/02/24 18:11 Temperature 98.0 F Pulse Rate 81 85 Respiratory Rate 26 H 20 Blood Pressure 138/75 Pulse Oximetry 89 L 100 Oxygen Delivery Nasal Cannula Nasal Cannula Oxygen Flow Rate 3 2 08/02/24 18:23 Temperature Pulse Rate 82 Respiratory Rate 20 Blood Pressure Pulse Oximetry Oxygen Delivery Oxygen Flow Rate Exam Narrative: dry cough, minimaL AIRMOVEMREMNY, TACHYPN. frail. Const: General: comfortable and no acute distress Other: , female, nontoxic appearance, frail HENMT: Face/Nose/Sinus: Normal nares present Mouth: Yes moist mucous membranes Eyes: General: appearance normal, both eyes and all related structures Sclera: sclerae normal Pupils: Equal, round and reactive pupils present EOM: EOMs intact bilaterally Resp: Other: Modest tachypnea. No apparent distress. Minimal air movement in all lung hill. No wheezing, crackles, or coarse lung sounds. Cardio: Rate: regular rate Rhythm: regular rhythm Other: S1-S2 present without murmur, rub, ectopy Skin: General skin exam: normal color and no rashes or lesions noted Wounds: no wounds Neuro: Speech: normal speech Motor exam (neuro): 5/5 motor strength present throughout Sensory Exam: normal sensation Other: A&O x4 Extrem: General: normal to inspection Psych: Mental Status: mental status grossly normal Affect: normal affect Other: Good insight and judgment, pleasant H&P: Results Labs Labs: Short CBC 08/02/24 Range/Units 18:02 WBC 8.2 (4.5-10.0) K/mm3 Hgb 15.8 H (12.0-15.0) g/dL Hct 49.1 H (37.0-47.0) % Plt Count 223 D (150-375) k/mm3 BMP 08/02/24 18:02 Sodium 139 Potassium 4.3 Chloride 98 Carbon Dioxide 34 H BUN 19 H Creatinine 0.71 Glucose 93 Calcium 9.4 Liver Function 08/02/24 Range/Units 18:02 Total Bilirubin 0.4 (0.2-1.3) mg/dL AST 31 (14-36) U/L ALT 18 (6-35) U/L Alkaline Phosphatase 97 (38-126) U/L Albumin 4.4 (3.5-5.1) g/dL Assessment and Plan Assessment and plan (1) COPD exacerbation: Code(s): J44.1 - Chronic obstructive pulmonary disease with (acute) exacerbation Status: Acute Assessment and Plan: - CXR: Stable chronic interstitial change, without focal infiltrate or effusion. - ABG, initial: pH 7.346, pCO2 59.6, pO2 128.3, HCO3 31.9, O2 sat 98.3% on 2L NC - viral PCR negative - DuoNebs kiel - start steroids: Solu-Medrol 125 -> prednisone 60 daily - hx of chronic respiratory failure on 1L at rest and 2L with activity, back to baseline (2) Essential hypertension: Code(s): I10 - Essential (primary) hypertension Status: Chronic Assessment and Plan: - chronic, currently 116/56 - continue home medications - monitor Plan Diet: Heart healthy GI Prophylaxis: Not currently indicated DVT Prophylaxis: SCDs Lines: Peripheral Code Status: DNR Quality VTE Prophylaxis VTE prophylaxis: mechanical ordered Hospitalist MIPS Advance Care Plan I have confirmed that the patient's Advanced Care Plan is present, code status is documented, or surrogate decision maker is listed in patient medical record.: Yes Medication Reconciliation I have utilized all available resources to obtain, update and review the patients current medications (includes all prescriptions, OTC, herbals, cannabis, and nutritional supplements).: Yes
--- NOTE | 2024-08-02 22:42 | ADMGEN ---
This patient, Melyssa Mccall, was admitted to Medical Room 341-01. Patient/family oriented to hospital policies and general routines including ID bracelet, bed and alarms, visiting hours, pain management, procedures, bathroom and other care routines, personal items, smoking policy, room service/diet, and visiting hours. Information on how to activate the Rapid Response Team has been discussed. Patient/Family are encouraged to report perceived risks to care and to ask questions if they do not understand what they are told or what they should do.
[2024-08-03] VITALS (17 sets, daily range): BP systolic 94–125; BP diastolic 46–84; PULSE 72–99; RESP 12–18; TEMP 36.3–36.8; O2SAT 93–98; BMI 15.1
[2024-08-03] MEDS: GABAPENTIN 300 MG CAPSULE PO ×3 (06:00→21:01)
[2024-08-03] MEDS: PANTOPRAZOLE 40 MG TABLET PO ×2 (08:58→17:46)
[2024-08-03] MEDS: guaiFENesin 12 HR 600 MG TABCR PO ×2 (08:58→20:21)
[2024-08-03] MEDS: PARoxetine 20 MG TABLET PO (08:58)
[2024-08-03] MEDS: CYCLOBENZAPRINE HCL 5 MG TABLET PO ×2 (08:58→17:46)
[2024-08-03] MEDS: oxyCODONE HCL (*CRX) 10 MG TAB SR 12HR PO ×2 (08:58→20:20)
[2024-08-03] MEDS: predniSONE 20 MG TABLET 60 MG PO (08:58)
[2024-08-03] MEDS: ASPIRIN 81 MG ENTERIC TABLET PO (08:58)
[2024-08-03] MEDS: CHOLECALCIFEROL 1,000 UNITS TABLET 5000 UNITS PO (08:59)
[2024-08-03] MEDS: NICOTINE (*PBKC) 21 MG PATCH 1 PATCH TRANSDERM (08:59)
[2024-08-03] MEDS: LORATADINE 10 MG TABLET PO (08:59)
[2024-08-03] MEDS: METOPROLOL SUCCINATE EXT REL 25 MG TABCR PO (09:01)
[2024-08-03] MEDS: IPRATROPIUM 0.5 MG/ALBUTEROL SULFATE 2.5 MG AMPUL.NEB 3 ML INHALATION ×3 (09:40→19:37)
[2024-08-03] MEDS: UMECLIDINIUM/VILANTEROL 62.5-25 MCG ELLIPTA 1 PUFF INHALATION (09:40)
--- NOTE | 2024-08-03 13:13 | PM.IMPN ---
Progress Note: A&P Assessment and Plan (1) COPD exacerbation: Code(s): J44.1 - Chronic obstructive pulmonary disease with (acute) exacerbation Status: Acute Assessment and Plan: - CXR: Stable chronic interstitial change, without focal infiltrate or effusion. - ABG, initial: pH 7.346, pCO2 59.6, pO2 128.3, HCO3 31.9, O2 sat 98.3% on 2L NC - viral PCR negative - DuoNebs kiel - continue prednisone 60 daily - continue titrating oxygen (2) Essential hypertension: Code(s): I10 - Essential (primary) hypertension Status: Chronic Assessment and Plan: - chronic, currently 116/56 - continue home medications - monitor Plan Chronic respiratory failure from COPD Continue titrating oxygen [place] oxygen 1 liters DVT prophylaxis on Sq Lovenox Code Status: DNR Awaiting PT/OT eval Subjective Date/time seen: 08/03/24 13:13 Interval history: Comfortable at bedside now at baseline oxygen however awaiting PT/OT Review of Systems Review of Systems: All systems reviewed & are unremarkable except as noted in HPI and below Exam Narrative: dry cough, minimaL AIRMOVEMREMNY, TACHYPN. frail. Const: General: comfortable and no acute distress Other: , female, nontoxic appearance, frail HENMT: Face/Nose/Sinus: Normal nares present Mouth: Yes moist mucous membranes Eyes: General: appearance normal, both eyes and all related structures Sclera: sclerae normal Pupils: Equal, round and reactive pupils present EOM: EOMs intact bilaterally Resp: Other: Modest tachypnea. No apparent distress. Minimal air movement in all lung hill. No wheezing, crackles, or coarse lung sounds. Cardio: Rate: regular rate Rhythm: regular rhythm Other: S1-S2 present without murmur, rub, ectopy Skin: General skin exam: normal color and no rashes or lesions noted Wounds: no wounds Neuro: Cranial nerves: Yes Equal, round and reactive pupils present Speech: normal speech Motor exam (neuro): 5/5 motor strength present throughout Sensory Exam: normal sensation Other: A&O x4 Extrem: General: normal to inspection Psych: Mental Status: mental status grossly normal Affect: normal affect Other: Good insight and judgment, pleasant Objective Data Vital Signs Vital Signs: Vital Signs - 24 hr 08/02/24 17:43 08/02/24 18:07 08/02/24 18:11 Temperature 98.0 F Pulse Rate 81 85 Respiratory Rate 26 H 20 Blood Pressure 138/75 Pulse Oximetry 89 L 100 Oxygen Delivery Nasal Cannula Nasal Cannula Oxygen Flow Rate 3 2 08/02/24 18:23 08/02/24 20:57 08/02/24 22:27 Temperature Pulse Rate 82 71 73 Respiratory Rate 20 20 17 Blood Pressure 116/56 L 115/53 L Pulse Oximetry 97 95 Oxygen Delivery Oxygen Flow Rate 08/02/24 22:51 08/02/24 23:19 08/03/24 03:00 Temperature 97.7 F 97.3 F L Pulse Rate 73 75 Respiratory Rate 18 16 Blood Pressure 105/43 L 112/53 L Pulse Oximetry 94 99 95 Oxygen Delivery Nasal Cannula Oxygen Flow Rate 2 08/03/24 05:59 08/03/24 07:05 08/03/24 08:00 Temperature 97.8 F 97.5 F L 98.1 F Pulse Rate 73 99 72 Respiratory Rate 16 16 12 Blood Pressure 108/65 125/64 101/55 L Pulse Oximetry 98 95 96 Oxygen Delivery Oxygen Flow Rate 08/03/24 08:00 08/03/24 09:01 08/03/24 09:40 Temperature Pulse Rate 76 76 78 Respiratory Rate 14 Blood Pressure Pulse Oximetry 93 Oxygen Delivery Nasal Cannula Oxygen Flow Rate 2 08/03/24 09:47 08/03/24 10:00 08/03/24 12:00 Temperature 97.7 F Pulse Rate 78 83 77 Respiratory Rate 14 14 Blood Pressure 94/57 L Pulse Oximetry 98 94 Oxygen Delivery Nasal Cannula Oxygen Flow Rate 2 Intake/Output Intake/Output: Intake & Output 07/31/24 08/01/24 08/02/24 08/03/24 23:59 23:59 23:59 23:59 Intake Total 550 540 Output Total 1000 Balance 550 -460 Meds/Results Medications: Active Medications Generic Name Dose Route Start Last Admin Trade Name Freq PRN Reason Stop Dose Admin Albuterol/Ipratropium 3 ml 08/03/24 02:00 08/03/24 09:40 Ipratropium 0.5 Mg/Albuterol Sulfate 2.5 Mg Ampul.Neb 3 Ml INHALATION 3 ml Q6HRT KIEL Administration Aspirin 81 mg 08/03/24 09:00 08/03/24 08:58 Aspirin 81 Mg Enteric Tablet PO 81 mg DAILY KIEL Administration Cyclobenzaprine HCl 5 mg 08/03/24 09:00 08/03/24 08:58 Cyclobenzaprine Hcl 5 Mg Tablet PO 5 mg BID KIEL Administration Fluticasone Propionate 1 spray 08/03/24 03:15 Fluticasone Propionate 0.05% Na Spr 16 Gm Btl (*Bkc) NASAL BID PRN nasal congestion Gabapentin 300 mg 08/03/24 06:00 08/03/24 06:00 Gabapentin 300 Mg Capsule PO 300 mg Q8HR KIEL Administration Guaifenesin 600 mg 08/03/24 09:00 08/03/24 08:58 Guaifenesin 12 Hr 600 Mg Tabcr PO 600 mg Q12HR KIEL Administration Loratadine 10 mg 08/03/24 09:00 08/03/24 08:59 Loratadine 10 Mg Tablet PO 10 mg DAILY KIEL Administration Lovastatin 40 mg 08/03/24 21:00 Lovastatin 20 Mg Tablet PO HS [facility] Metoprolol Succinate 25 mg 08/03/24 09:00 08/03/24 09:01 Metoprolol Succinate Ext Rel 25 Mg Tabcr PO 25 mg DAILY KIEL Administration Nicotine 1 patch 08/03/24 09:00 08/03/24 08:59 Nicotine (*Pbkc) 21 Mg Patch TRANSDERM 1 patch DAILY KIEL Administration Oxycodone HCl 10 mg 08/03/24 09:00 08/03/24 08:58 Oxycodone Hcl (*Crx) 10 Mg Tab Sr 12hr PO 10 mg Q12HR KIEL Administration Pantoprazole Sodium 40 mg 08/03/24 09:00 08/03/24 08:58 Pantoprazole 40 Mg Tablet PO 40 mg BID KIEL Administration Paroxetine HCl 20 mg 08/03/24 09:00 08/03/24 08:58 Paroxetine 20 Mg Tablet PO 20 mg DAILY KIEL Administration Prednisone 60 mg 08/03/24 08:00 08/03/24 08:58 Prednisone 20 Mg Tablet PO 60 mg DAILY@08 KIEL Administration Solifenacin 5 mg 08/03/24 21:00 Solifenacin 5 Mg Tablet PO HS [facility] Umeclidinium/Vilanterol 1 puff 08/03/24 08:00 08/03/24 09:40 Umeclidinium/Vilanterol 62.5-25 Mcg Ellipta INHALATION 1 puff DAILYRT KIEL Administration Vitamin D 5,000 units 08/03/24 09:00 08/03/24 08:59 Cholecalciferol 1,000 Units Tablet PO 5,000 units DAILY KIEL Administration Radiology Results: ITS Impressions Chest X-Ray 08/02/24 18:50 IMPRESSION: Stable chronic interstitial change, without focal infiltrate or effusion. Chest CTA 08/02/24 19:47 IMPRESSION: No pulmonary embolus. No thoracic aortic dissection. Panlobular emphysema without acute pulmonary disease. Abdomen/Pelvis CT 08/02/24 19:52 IMPRESSION: Panlobular emphysematous disease. No acute pathology detected within the abdomen or pelvis, as detailed above. Labs Labs: Laboratory Results - last 24 hr 08/02/24 08/02/24 17:56 18:02 WBC 8.2 RBC 5.11 Hgb 15.8 H Hct 49.1 H MCV 96.1 MCH 30.9 MCHC 32.2 RDW 12.2 Plt Count 223 D MPV 9.7 Immature Gran % (Auto) 0.2 Neut % (Auto) 62.5 Lymph % (Auto) 25.4 [place] % (Auto) 9.5 H Eos % (Auto) 1.9 Baso % (Auto) 0.5 Lymph # (Auto) 2.09 [place] # (Auto) 0.8 H Eos # (Auto) 0.2 Baso # (Auto) 0.0 Abs Immat Gran (auto) 0.02 Absolute Neuts (auto) 5.2 Absolute Nucleated RBC 0.000 Nucleated RBC % 0.0 PT 13.3 INR 1.0 APTT 29.0 Puncture Site Right brachial ABG pH 7.346 L ABG pCO2 59.6 H ABG pO2 128.3 H ABG PO2/FiO2 Ratio 4.58 ABG HCO3 31.9 H ABG O2 Saturation 98.3 ABG O2 Content 19.5 ABG Base Excess 4.2 A-a Gradient 1.0 Oxyhemoglobin 87.5 L* Total Hemoglobin 15.7 O2 Delivery Device Nasal cannula O2 Liters/Min 2.0 FiO2 28 Sodium 139 Potassium 4.3 Chloride 98 Carbon Dioxide 34 H Anion Gap 7 BUN 19 H Creatinine 0.71 Estim Creat Clear Calc 44 Estimated GFR > 60 Glucose 93 Lactic Acid 1.1 Calcium 9.4 Magnesium 2.3 Total Bilirubin 0.4 AST 31 ALT 18 Alkaline Phosphatase 97 NT-Pro-B Natriuret Pep 1750 H Total Protein 8.0 Albumin 4.4 Influenza A (RT-PCR) Negative Influenza B (RT-PCR) Negative RSV (RT-PCR) Negative SARS-CoV-2 RNA (RT-PCR) Negative Quality VTE Prophylaxis VTE prophylaxis: mechanical ordered
--- NOTE | 2024-08-03 13:20 | P.CDI_ITS ---
CDI Query Clarification Request BMI: 15.1 Nutritional Diagnostic Statement: Please refer to the comprehensive nutrition assessment for further information. If you agree with diagnosis of Severe protein calorie malnutrition related to inadequate energy intake as evidenced by pt report of poor appetite for greater than 1 year, low BMI of 15.1, and NFPE findings of severe subcutaneous fat loss and muscle wasting. Please specify severity if known: * Mild * Moderate * Severe * Other/Unknown <Betsy Wisdom RN - Last Filed: 08/03/24 13:20> Clarified Diagnosis Clarified Diagnosis: * Severe <Raya Haddad MD - Last Filed: 08/03/24 13:37>
[2024-08-03] MEDS: LOVASTATIN 20 MG TABLET 40 MG PO (20:20)
[2024-08-03] MEDS: SOLIFENACIN 5 MG TABLET PO (20:21)
[2024-08-04] VITALS (9 sets, daily range): BP systolic 93–107; BP diastolic 46–72; PULSE 78–86; RESP 16–18; TEMP 36.3–36.6; O2SAT 92–98
[2024-08-04] MEDS: IPRATROPIUM 0.5 MG/ALBUTEROL SULFATE 2.5 MG AMPUL.NEB 3 ML INHALATION ×2 (02:03→07:58)
[2024-08-04 05:31] LABS: Basophils Percent Auto 0.3 % (0.2-1.2); Eosinophils Percent Auto 0.4 % (0-4.4); Hematocrit 36.9 % (37.0-47.0); Hemoglobin 11.9 g/dL (12.0-15.0); Immature Granulocyte Absolute 0.02 K/mm3 (0.00-0.031); Immature Granulocyte Percent A 0.3 % (0-0.5); Lymphocytes Absolute Auto 0.85 K/mm3 (0.9-3.2); Lymphocytes Percent Auto 11.1 % (18.3-44.2); Mean Corpuscular HGB Conc 32.2 g/dl (32-36); Mean Corpuscular Hemoglobin 30.9 pg (26-34); Mean Corpuscular Volume 95.8 fl (80-100); Mean Platelet Volume 9.9 fl (7.4-10.4); Monocytes Absolute Auto 0.6 K/mm3 (0.1-0.6); Monocytes Percent Auto 7.7 % (2.6-8.5); Neutrophils Absolute Auto 6.2 K/mm3 (1.3-6.7); Neutrophils Percent Auto 80.2 % (45.5-73.1); Platelet Count Result 167 k/mm3 (150-375); Red Blood Count 3.85 M/mm3 (4.2-5.4); Red Cell Distribution Width 12.4 % (11.5-14.5); White Blood Count 7.7 K/mm3 (4.5-10.0)
[2024-08-04 05:43] LABS: Alanine Aminotransferase 15 U/L (6-35); Albumin Level 3.2 g/dL (3.5-5.1); Alkaline Phosphatase 86 U/L (38-126); Anion Gap 3 mmol/L (4-12); Aspartate Amino Transferase 22 U/L (14-36); Bilirubin,Total 0.2 mg/dL (0.2-1.3); Blood Urea Nitrogen 29 mg/dL (7-17); Calcium 8.7 mg/dL (8.4-10.2); Carbon Dioxide 32 mmol/L (22-30); Chloride 99 mmol/L (98-107); Estimated CRCL calculation 51 ml/min; Estimated Glomerular Filt Rate > 60; Glucose 118 mg/dL (65-110); Magnesium 2.3 mg/dL (1.6-2.3); Potassium 4.1 mmol/L (3.4-5.0); Sodium 134 mmol/L (137-145)
[2024-08-04] MEDS: GABAPENTIN 300 MG CAPSULE PO ×2 (06:05→13:49)
[2024-08-04] MEDS: UMECLIDINIUM/VILANTEROL 62.5-25 MCG ELLIPTA 1 PUFF INHALATION (07:58)
[2024-08-04] MEDS: CHOLECALCIFEROL 1,000 UNITS TABLET 5000 UNITS PO (09:12)
[2024-08-04] MEDS: CYCLOBENZAPRINE HCL 5 MG TABLET PO (09:12)
[2024-08-04] MEDS: METOPROLOL SUCCINATE EXT REL 25 MG TABCR PO (09:13)
[2024-08-04] MEDS: LORATADINE 10 MG TABLET PO (09:13)
[2024-08-04] MEDS: PANTOPRAZOLE 40 MG TABLET PO (09:13)
[2024-08-04] MEDS: predniSONE 20 MG TABLET 60 MG PO (09:13)
[2024-08-04] MEDS: guaiFENesin 12 HR 600 MG TABCR PO (09:13)
[2024-08-04] MEDS: oxyCODONE HCL (*CRX) 10 MG TAB SR 12HR PO (09:13)
[2024-08-04] MEDS: PARoxetine 20 MG TABLET PO (09:13)
[2024-08-04] MEDS: ASPIRIN 81 MG ENTERIC TABLET PO (09:13)
[2024-08-04] MEDS: NICOTINE (*PBKC) 21 MG PATCH 1 PATCH TRANSDERM (09:14)
[2024-08-04] MEDS: ENOXAPARIN 40 MG/0.4 ML SYRINGE SUB-Q (09:15)
--- NOTE | 2024-08-04 14:13 | PM.DS ---
DS: Admitting Diagnosis Discharge Date 08/04/24 Admitting Diagnosis Shortness of Breath DS: Discharge Diagnosis Discharge Diagnosis (1) COPD exacerbation: Code(s): J44.1 - Chronic obstructive pulmonary disease with (acute) exacerbation Status: Acute DS: Summary Hospital Course Hospital Course: 69 y/o F with PMH of COPD w/chronic respiratory failure on 1-2L, paroxysmal SVT, HLD, HTN, iron deficiency anemia, anxiety and depression. The patient presents here from home for further evaluation of shortness of breath. She reports onset yesterday or the day before, briefly had some relief this afternoon before it worsened. Patient utilized her home nebulizer and inhaler without relief. The shortness of breath is accompanied by a dry cough (chronic), fever, night sweats, and nausea (secondary to abx use). She denies chills, body aches, vomiting or diarrhea. Of note, she was recently placed on antibiotics for pneumonia and completed this course yesterday, 08/02. She also has a history of chronic respiratory failure on 1-2 L of home O2 at all times (1 with rest and 2 with activity). She did increase her home oxygen to 3L NC with no relief. She arrived to the emergency department 89% on 3L. Initial VS at presentation: 98? F, HR 81, R 26, 138/75, and 89% on 3 L NC. Now 100% on 2 L NC. ED workup showed: No leukocytosis, hemoglobin 15.8 (16.0 on 03/17/2024), normal coags, ABG showed pH 7.346/CO2 59.6/O2 128.3/HC03 31.9, no significant electrolyte derangements, creatinine 0.71 and GFR >60, lactic 1.1, BNP 1750. Viral PCR negative. CXR showed stable chronic interstitial change without focal infiltrate or effusion. Chest CTA showed no PE, no thoracic aortic dissection, panlobular emphysema without acute pulmonary disease. CT abdomen/pelvis showed panlobular emphysematous disease and no acute pathology detected within the abdomen and pelvis. Patient was placed on IV steroid and bronchodilator, she was at her baseline oxygen requirement. Patient was evaluated by PT/OT and patient was deemed to be able to go home. Patient was discharged home today on tapering dose of Po prednisone. F/u with PCP in 3-5 days. Time Spent with Patient Time attestation: Total time spent providing and/or coordinating discharge services: DS: Data Data Completed and Pending Labs on day of discharge: Labs from last 24 hours 08/04/24 05:03 WBC 7.7 RBC 3.85 L Hgb 11.9 L D Hct 36.9 L MCV 95.8 MCH 30.9 MCHC 32.2 RDW 12.4 Plt Count 167 MPV 9.9 Immature Gran % (Auto) 0.3 Neut % (Auto) 80.2 H Lymph % (Auto) 11.1 L [place] % (Auto) 7.7 Eos % (Auto) 0.4 Baso % (Auto) 0.3 Lymph # (Auto) 0.85 L [place] # (Auto) 0.6 Eos # (Auto) 0.0 Baso # (Auto) 0.0 Abs Immat Gran (auto) 0.02 Absolute Neuts (auto) 6.2 Absolute Nucleated RBC 0.000 Nucleated RBC % 0.0 Sodium 134 L Potassium 4.1 Chloride 99 Carbon Dioxide 32 H Anion Gap 3 L BUN 29 H D Creatinine 0.60 L Estim Creat Clear Calc 51 Estimated GFR > 60 Glucose 118 H Calcium 8.7 Magnesium 2.3 Total Bilirubin 0.2 AST 22 ALT 15 Alkaline Phosphatase 86 Total Protein 6.0 L Albumin 3.2 L Preliminary micro results at discharge 08/02/24 18:48 Blood Culture - Preliminary Blood 08/02/24 18:48 Blood Culture - Preliminary Blood Discharge Plan Discharge Attending physician on discharge: Raya Haddad Discharging Clinician: Raya Haddad Anticipated Discharge Date/Time: 08/04/24 14:06 Patient Disposition: Home, Self-Care Activity: as tolerated Diet: as tolerated and regular Patient Instructions: Antibiotic Form Patient Language: Welsh Stand Alone Forms: General Discharge Information Follow-up/Referrals: Grace Mondragon DO [Primary Care Provider] - (F/u with PCP in 3-5 days ) Discharge Medications: New azithromycin 250 mg tablet 250 mg PO DAILY 3 Days Qty: 3 0RF Rx Instructions: start on day 2 of therapy prednisone 10 mg tablet 10 mg PO DIRECTED Qty: 32 0RF Rx Instructions: see taper instructions: 4 tabs daily x 3 days, then 3 tabs daily then 3 days, then 2 tabs daily x 3 days, then 1 tabs daily x 3 days, then 5mg daily x 3 days then stop. Continued aspirin [Adult Aspirin Regimen] 81 mg tablet,delayed release (DR/EC) 81 mg PO DAILY cyclobenzaprine 5 mg tablet 5 mg PO BID solifenacin [Vesicare] 10 mg tablet 5 mg PO HS albuterol sulfate 2.5 mg /3 mL (0.083 %) solution for nebulization 2.5 mg inhalation Q4-6H PRN (Reason: shortness of breath or wheezing) Qty: 180 3RF Xtampza ER 13.5 mg cap,sprinkl,ER12hr(DONT CRUSH) 13.5 mg PO Q12H albuterol sulfate 90 mcg/actuation HFA aerosol inhaler See Rx Instructions .ROUTE .COMPLEX PRN (Reason: Shortness Of Breath Or Wheezing) Rx Instructions: INHALE 1 PUFF BY MOUTH EVERY 4 HOURS NEEDED FOR SHORTNESS OF BREATH nicotine 21 mg/24 hr Patch 24 Hour 1 patch TRANSDERMAL DAILY lovastatin 40 mg tablet 40 mg PO HS gabapentin 300 mg capsule 300 mg PO Q8H loratadine 10 mg Tablet 10 mg PO DAILY cholecalciferol (vitamin D3) [Vitamin D3] 125 mcg (5,000 unit) Tablet 125 mcg PO DAILY guaifenesin [Mucinex] 600 mg Tablet Extended Release 12hr 600 mg PO Q12H ferrous sulfate [FeroSul] 325 mg (65 mg iron) tablet See Rx Instructions .ROUTE .COMPLEX Qty: 30 2RF Dose Instruction: TAKE 1 TABLET BY MOUTH EVERY MORNING Rx Instructions: TAKE 1 TABLET BY MOUTH EVERY MORNING metoprolol succinate 25 mg tablet extended release 24 hr See Rx Instructions .ROUTE .COMPLEX Qty: 90 2RF Dose Instruction: TAKE 1 TABLET BY MOUTH DAILY Rx Instructions: TAKE 1 TABLET BY MOUTH DAILY- AM omeprazole 40 mg capsule,delayed release(DR/EC) 40 mg PO DAILY Qty: 90 1RF Rx Instructions: TAKE 1 CAPSULE BY MOUTH DAILY paroxetine HCl 20 mg tablet See Rx Instructions .ROUTE .COMPLEX Qty: 90 1RF Dose Instruction: TAKE 1 TABLET BY MOUTH DAILY Rx Instructions: TAKE 1 TABLET BY MOUTH DAILY Stiolto Respimat 2.5-2.5 mcg/actuation mist See Rx Instructions .ROUTE .COMPLEX Qty: 4 11RF Dose Instruction: INHALE 2 PUFFS BY MOUTH DAILY Rx Instructions: INHALE 2 PUFFS BY MOUTH DAILY fluticasone propionate [Flonase Allergy Relief] 50 mcg/actuation spray,suspension 1 spray intranasal BID PRN (Reason: nasal congestion) Qty: 16 3RF Rx Instructions: administer into each nostril Date of admission: 08/03/24 07:59 Primary Care Provider: Grace Mondragon Admitting Provider: Ivelisse Man Attending physician on admission: Ivelisse Man Condition: Improved
== END 2024-08-04 15:15 | disposition home or self-care (01) | DRG 190 ==
LOC: ANHED 18:16 → ANH3MED 22:05
PROVIDERS: Admitting Provider Internal Medicine; Emergency Provider Physician Assistant; PCP Family Medicine; Visit Provider Internal Medicine
DX: J44.1 Chronic obstructive pulmonary disease with (acute) exacerbation (principal); E43 Unspecified severe protein-calorie malnutrition; J84.9 Interstitial pulmonary disease, unspecified; J96.10 Chronic respiratory failure, unspecified whether with hypoxia or hypercapnia; I47.10 Supraventricular tachycardia, unspecified; Z68.1 Body mass index [BMI] 19.9 or less, adult; I10 Essential (primary) hypertension; E78.5 Hyperlipidemia, unspecified; K58.9 Irritable bowel syndrome, unspecified; K21.9 Gastro-esophageal reflux disease without esophagitis; M79.7 Fibromyalgia; M06.9 Rheumatoid arthritis, unspecified; M35.9 Systemic involvement of connective tissue, unspecified; M85.80 Other specified disorders of bone density and structure, unspecified site; M54.16 Radiculopathy, lumbar region; R13.10 Dysphagia, unspecified; G25.81 Restless legs syndrome; F41.9 Anxiety disorder, unspecified; F17.210 Nicotine dependence, cigarettes, uncomplicated; Z20.822 Contact with and (suspected) exposure to COVID-19; Z79.82 Long term (current) use of aspirin; Z99.81 Dependence on supplemental oxygen; Z87.442 Personal history of urinary calculi; Z79.899 Other long term (current) drug therapy; Z96.82 Presence of neurostimulator; Z87.11 Personal history of peptic ulcer disease; Z80.0 Family history of malignant neoplasm of digestive organs; Z86.0101 Personal history of adenomatous and serrated colon polyps
CPT/HCPCS: 36415; 36600; 71045; 71275; 74176; 80053; 82805; 83605; 83735; 83880; 85018; 85025; 85610; 85730; 87040; 87637; 93005; 94640; 96365; 96366; 96367; 97161; 99285; A9270; G0378; J1650; J2919; J3475; J7040; J7512; Q9967

== ENCOUNTER 2024-08-11 01:31 | Day surgery (SDC) | payer MEDICARE, MEDICAID, SELFPAY ==
[2024-08-05 14:15] VITALS: BMI 14.5
--- OUTSIDE RECORDS SUMMARY | 2024-08-11 01:35 | XMS_ITS | Encounter Summary ---
Author Organization [facility] Address [address] [place] [address] Care Team Providers Care Riding Silks Custodian Name Role Phone Milena Dos Santos MD Primary Care Provider [phone] Tommy King DO Primary Care Provider [phone] [place] MD Unavailable [phone] Yvan Jaime MD Unavailable [phone] None, Provider Primary Care Provider Unavaila ble Encounter Details Date Type Department Care Team (Latest Contact Info) Description 03/09/2018 Abstract [facility] Medical [facility] Michael Mclean MD Social History Tobacco Use Types Packs/Day Years Used Date Smoking Tobacco: Smoker, Current Status Unknown Comments Unknown Sex and Gender Information Value Date Recorded Sex Assigned at Not on file Legal Sex Female 11:35 PM CDT Gender Identity Female 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 Sexual Orientation Straight 05/09/2021 3: 57 PM FIRE SUPPRESSION CAPTAIN documented as of this encounter Plan of Treatment Not on file documented as of this encounter Visit Diagnoses Not on filedocumented in this encounter Care Teams Riding Silks Custodian Relationship Specialty Start Date End Date Milena Dos Santos MD [address] [place] [address] PCP - General 06/03/16 04/03/19 Tommy King DO [address] [place] [address] PCP - General INTERNAL MEDICINE 04/04/19 03/27/22 None, [place], PCP - General UNKNOWN PHYSICIAN SPECIALTY 03/28/22 [place] P[place] MD [address] [facility] [address] [place] [address] UROLOGY 05/03/19 Yvan Jaime MD [address] [place] [address] Surgeon NEUROLOGICAL SURGERY 05/03/19 documented as of this encounter
--- OUTSIDE RECORDS SUMMARY | 2024-08-11 01:35 | XMS_ITS | Referral Summary ---
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
--- OUTSIDE RECORDS SUMMARY | 2024-08-11 01:35 | XMS_ITS | Data Portability ---
Author Organization UBALDO Claudia POLLOCK Address [address] [place] [address] Assessment No assessment recorded. Plan of Treatment Reminders Order Date Submit Date Provider Last Modified By Organization Details Last Modified Time Details Appointments None recorded. Lab rapid strep group A, throat 2016 017 [facility] In-Office Order, Internal Use Only DO Not Attach Compendium DO Not Attach Compendium, Do Not Delete/merge, [id number] 7 17:07:24 HbA1c (hemoglobi n A1c), blood 2015 016 DBA_PATCH_ [id number] [facility], [address], [address], [place], [address], 6 04:31:39 glucose tolerance test, post-75G, 3 specimens 2015 016 DBA_PATCH_ [id number] [facility], [address], [address], [place], [address], 6 04:31:39 unlisted lab - vitamin D, 25-hydroxy , total - [facility] 2015 016 JENNIFER [facility], [address], [address], [place], [address], 6 13:11:27 CBC w/ manual diff 2015 016 [email or web address] [facility], [address], [address], [place], [address], 6 12:15:19 CMP, serum or plasma 2015 016 [email or web address] [facility], [address], [address], [place], [address], 6 12:15:19 lipid panel, serum 2015 016 [email or web address] [facility], [address], [address], [place], [address], 6 12:15:19 unlisted lab - compliance drug analysis, ur 2015 016 JENNIFER [facility], [address] [facility], [address], [place], [address], 6 15:09:40 Referral laryngolog y referral - Please call patient to schedule 2015 016 [email or web address] Not available 7 07:56:45 audiologis t referral - Please call patient to schedule [email or web address], [place], [address], 7 13:04:47 plastic surgeon referral - Rt thigh lump/ PATIENT TO SCHEDULE 2015 016 [email or web address] Not available 7 13:17:06 gastroente rologist referral - P:leae call patient to schedujle 2015 016 [email or web address] Jack Griffin MD, [address] [place], [address], 7 10:10:31 Procedures colonoscop y screening (PROC) 2015 016 DBA_PATCH_ [id number] Not available 6 04:32:07 Surgeries None recorded. Imaging MAMMO, screening, digital, bilateral 2015 016 DBA_PATCH_ [id number] [facility] ([facility]), [address] [place], [address], 6 04:31:59 MAMMO, screening, bilateral 2015 016 [facility] ([facility]), [address] [place], [address], 7 10:29:25 bone density, dual photon absorptiom etry 2015 016 [facility] ([facility]), [address] [place], [address], 6 15:34:00 Medication Orders sertraline 100 mg tablet 2016 017 [facility]59739, [address] [place], [place], [id number], 7 17:07:30 nystatin 100,000 unit/mL oral suspension 2016 017 [facility] #94208, [address] [facility], [place], [place], [id number], 7 17:07:31 calcium 600 mg (as carbonate) -vitamin D3 10 mcg (400 unit) capsule 2016 017 [facility], [address] [facility], [place], [place], [id number], 7 16:54:36 Ventolin HFA 90 mcg/actuat ion aerosol inhaler 2016 017 [facility] #67154, [address] [facility], [place], [place], [id number], 7 16:22:52 Symbicort 160 mcg-4.5 mcg/actuat ion HFA aerosol inhaler 2016 017 [facility], [address], [place], [place], [id number], 7 16:22:51 albuterol sulfate 2.5 mg/3 mL (0.083 %) solution for nebulizati on 2016 017 [facility], [address], [place], [place], [id number], 7 16:22:52 calcium 600 mg (as carbonate) -vitamin D3 10 mcg (400 unit) capsule 2015 016 [facility]BA[facility]PATCH_ [id number] [facility], [address], [place], [place], [id number], 6 04:31:45 Patient TargetsNo targets recorded. Patient Instructions Encounter Date Encounter Id Patient Instructions Last Modified By Organization Details Last Modified Time 01/21/2016 [id number] deciding about using medicines to quit [facility] Not available 01/22/2016 15:28:08 Quitting Tobacco : Care Instructions [facility] Not available 01/22/2016 15:28:09 chronic obstructive pulmonary disease (COPD): care instructions [facility] Not available 01/22/2016 15:28:08 learning about copd and how to prevent lung infections [facility] Not available 01/22/2016 15:28:08 03/21/2016 [id number] mammogram: about this test [facility] Not available 03/21/2016 17:27:52 deciding about using medicines to quit smoking [facility] Not available 03/21/2016 17:27:52 Quitting Tobacco : Care Instructions [facility] Not available 03/21/2016 17:27:52 chronic obstructive pulmonary disease (COPD): care instructions [facility] Not available 03/21/2016 17:27:52 learning about copd and how to prevent lung infections [facility] Not available 03/21/2016 17:27:52 learning about high blood sugar [facility] Not available 03/21/2016 17:31:23 05/28/2016 [id number] osteoporosis: care instructions [facility] Not available 05/28/2016 16:22:51 deciding about using medicines to quit smoking [email or web address] Not available 05/28/2016 16:22:51 Quitting Tobacco : Care Instructions [email or web address] Not available 05/28/2016 16:22:51 chronic obstructive pulmonary disease (COPD): care instructions jhsieh Not available 05/28/2016 16:22:51 learning about copd and how to prevent lung infections [email or web address] Not available 05/28/2016 16:22:51 07/01/2016 [id number] deciding about using medicines to quit smoking strice Not available 07/02/2016 09:50:36 Quitting Tobacco : Care Instructions strice Not available 07/02/2016 09:50:36 chronic obstructive pulmonary disease (COPD): care instructions strice Not available 07/02/2016 09:50:36 learning about copd and how to prevent lung infections strice Not available 07/02/2016 09:50:36 11/24/2016 [id number] deciding about using medicines to quit smoking [email or web address] Not available 11/25/2016 11:07:05 Quitting Tobacco : Care Instructions [email or web address] Not available 11/25/2016 11:07:05 chronic obstructive pulmonary disease (COPD): care instructions [email or web address] Not available 11/25/2016 11:07:05 learning about copd and how to prevent lung infections [email or web address] Not available 11/25/2016 11:07:05 Reason for Referral [...] [facility], Encounter Date: 03/21/2016 Engineer/Conductor Referral for Hea ring disorder Please call [...] DO Not Attach Compendium, Do Not Delete/merge, [id number] 11/24/2016 16:23:51 01/21/20 16 01/26/2016 drug scree [...] RIPTI ON MEDIC [place] . [place] [address] NG/MG CREAT POTEN TIAL SOURC ES OF [...] TAYLOR CONSU LTATI ON, PLEAS E CALL . ===== ===== ===== ===== ===== ===== ===== ===== ===== ===== ===== ===== ===== === Not Available [facility] [address], [place], [address], 01/26/2016 15:09:40 01/21/20 16 01/26/2016 drug scree n, urine pdf . Not Available [facility] [address], [place], [address], 01/26/2016 15:09:40 02/04/20 16 02/05/2016 CBC w/ manua l diff WBC 5.7 x10e3 /uL 3.4-10 .8 Not Available [facility] ([facility]) [address] [facility], [place], [address], 02/07/2016 13:11:25 02/04/20 16 02/05/2016 CBC w/ manua l diff RBC 4.19 x10e6 /uL 3.77-5 .28 Not Available [facility] ([facility]) [address] [facility], [place], [address], 02/07/2016 13:11:25 02/04/20 16 02/05/2016 CBC w/ manua l diff hemoglobin 12.7 g/dL 11.1-1 5.9 Not Available [facility] ([facility]) [address] [facility], [place], [address], 02/07/2016 13:11:25 02/04/20 16 02/05/2016 CBC w/ manua l diff hematocrit 38.8 % 34.0-4 6.6 Not Available [facility] ([facility]) [address] [place], [address], 02/07/2016 13:11:25 02/04/20 16 02/05/2016 CBC w/ manua l diff MCV 93 fL 79-97 Not Available [facility] ([facility]) [address] [place], [address], 02/07/2016 13:11:25 02/04/20 16 02/05/2016 CBC w/ manua l diff MCH 30.3 pg 26.6-3 3.0 Not Available [facility] ([facility]) [address] [place], [address], 02/07/2016 13:11:25 02/04/20 16 02/05/2016 CBC w/ manua l diff MCHC 32.7 g/dL 31.5-3 5.7 Not Available [facility] ([facility]) [address] [facility], [place], [address], 02/07/2016 13:11:25 02/04/20 16 02/05/2016 CBC w/ manua l diff RDW 14.2 % 12.3-1 5.4 Not Available [facility] ([facility]) [address] [place], [address], 02/07/2016 13:11:25 02/04/20 16 02/05/2016 CBC w/ manua l diff platelets 148 x10e3 /uL 150-37 9 below low normal Not Available [facility] ([facility]) [address] [place], [address], 02/07/2016 13:11:25 02/04/20 16 02/05/2016 CBC w/ manua l diff neutrophils 75 % Not Available [facility] ([facility]) [address] [place], [address], 02/07/2016 13:11:25 02/04/20 16 02/05/2016 CBC w/ manua l diff lymphs 16 % Not Available [facility] ([facility]) [address] [place], [address], 02/07/2016 13:11:25 02/04/20 16 02/05/2016 CBC w/ manua l diff monocytes 8 % Not Available [facility] ([facility]) [address] [place], [address], 02/07/2016 13:11:25 02/04/20 16 02/05/2016 CBC w/ manua l diff eos 1 % Not Available [facility] ([facility]) [address] [place], [address], 02/07/2016 13:11:25 02/04/20 16 02/05/2016 CBC w/ manua l diff basos 0 % Not Available [facility] ([facility]) [address] [place], [address], 02/07/2016 13:11:25 02/04/20 16 02/05/2016 CBC w/ manua l diff immature cells 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 0 Not Available [facility] ([facility]) [address] [place], [address], 02/07/2016 13:11:25 02/04/20 16 02/05/2016 CBC w/ manua l diff lymphs (absolute) 0.9 x10e3 /uL 0.7-3. 1 Not Available [facility] ([facility]) [address] [place], [address], 02/07/2016 13:11:25 02/04/20 16 02/05/2016 CBC w/ manua l diff monocytes(ab solute) 0.5 x10e3 /uL 0.1-0. 9 Not Available [facility] ([facility]) [place], [address], 02/07/2016 13:11:25 02/04/20 16 02/05/2016 CBC w/ manua l diff eos (absolute value) 0.1 x10e3 /uL 0.0-0. 4 Not Available [facility] ([facility]) [address] [facility], [place], [address], 02/07/2016 13:11:25 02/04/20 16 02/05/2016 CBC w/ manua l diff baso(absolut e) 0.0 x10e3 /uL 0.0-0. 2 Not Available [facility] ([facility]) [address] [facility], [place], [address], 02/07/2016 13:11:25 02/04/20 16 02/05/2016 CBC w/ manua l diff NRBC FIELD OPERATIONS TECHNICIAN Not Available [facility] ([facility]) [address] [facility], [place], [address], 02/07/2016 13:11:25 02/04/20 16 02/05/2016 CBC w/ manua l diff differential comment FIELD OPERATIONS TECHNICIAN Not Available [facility] ([facility]) [address] [facility], [place], [address], 02/07/2016 13:11:25 02/04/20 16 02/05/2016 CBC w/ manua l diff RBC comment RBC'S APPEAR NORMAL . normal Not Available [facility] ([facility]) [address] [facility], [place], [address], 02/07/2016 13:11:25 02/04/20 16 02/05/2016 CBC w/ manua l diff platelet comment ADEQUA TE adequa te Not Available [facility] ([facility]) [address] [facility], [place], [address], 02/07/2016 13:11:25 02/04/20 16 02/05/2016 CMP, serum or plasm a glucose, serum 115 mg/dL 65-99 above high normal Not Available [facility] ([facility]) [address] [facility], [place], [address], 02/07/2016 13:11:26 02/04/20 16 02/05/2016 CMP, serum or plasm a hemoglobin A1C 5.9 % 4.8-5. 6 above high normal PRE-D IABET ES: 5.7 - 6.4 DIABE ROSE: >6.4 GLYCE ARON CONTR OL FOR ADULT S WITH DIABE ROSE: <7.0 Not Available [facility] ([facility]) [address] [facility], [place], [address], 02/07/2016 13:11:26 02/04/20 16 02/05/2016 CMP, serum or plasm a BUN 8 mg/dL 8-27 Not Available [facility] ([facility]) [address] [place], [address], 02/07/2016 13:11:26 02/04/20 16 02/05/2016 CMP, serum or plasm a creatinine, serum 0.85 mg/dL 0.57-1 .00 Not Available [facility] ([facility]) [address] [place], [address], 02/07/2016 13:11:26 02/04/20 16 02/05/2016 CMP, serum or plasm a eGFR if nonafricn AM 74 mL/mi n/1.7 3 >59 Not Available [facility] ([facility]) [address] [place], [address], 02/07/2016 13:11:26 02/04/20 16 02/05/2016 CMP, serum or plasm a eGFR if africn AM 85 mL/mi n/1.7 3 >59 Not Available [facility] ([facility]) [address] [place], [address], 02/07/2016 13:11:26 02/04/20 16 02/05/2016 CMP, serum or plasm a BUN/creatini ne ratio 9 11-26 below low normal Not Available [facility] ([facility]) [address] [place] [address], [address], 02/07/2016 13:11:26 02/04/20 16 02/05/2016 CMP, serum or plasm a sodium, serum 142 mmol/ L 134-14 4 EFF ECTIV E OCTOB ER 2015 THE REFER ENCE INTER NIRMALA FOR SARAH Rodriguez, SERUM WILL BE LYON ING TO: 136 - 144 Not Available [facility] ([facility]) [address] [place], [address], 02/07/2016 13:11:26 02/04/20 16 02/05/2016 CMP, serum [...] YEAR 3.5 - 5.2 Not Available [facility] ([facility]) [address] [place], [address], 02/07/2016 13:11:26 02/04/20 16 02/05/2016 CMP, serum or plasm a chloride, serum 103 mmol/ L 97-108 EFF ECTIV E OCTOB ER 2015 THE REFER ENCE INTER NIRMALA FOR CHLOR SAHIL, SERUM WILL BE LYON ING TO: 97 - 106 Not Available [facility] ([facility]) [address] [place], [address], 02/07/2016 13:11:26 02/04/20 16 02/05/2016 CMP, serum or plasm a carbon dioxide, total 24 mmol/ L 18-29 Not Available [facility] ([facility]) [address] [place], [address], 02/07/2016 13:11:26 02/04/20 16 02/05/2016 CMP, serum or plasm a calcium, serum 8.3 mg/dL 8.7-10 .3 below low normal Not Available [facility] ([facility]) [address] [place], [address], 02/07/2016 13:11:26 02/04/20 16 02/05/2016 CMP, serum or plasm a protein, total, serum 6.2 g/dL 6.0-8. 5 Not Available [facility] ([facility]) [address] [facility], [place], [address], 02/07/2016 13:11:26 02/04/20 16 02/05/2016 CMP, serum or plasm a albumin, serum 3.8 g/dL 3.6-4. 8 Not Available [facility] ([facility]) [address] [place], [address], 02/07/2016 13:11:26 02/04/20 16 02/05/2016 CMP, serum or plasm a globulin, total 2.4 g/dL 1.5-4. 5 Not Available [facility] ([facility]) [address] [place], [address], 02/07/2016 13:11:26 02/04/20 16 02/05/2016 CMP, serum or plasm a A/G ratio 1.6 1.1-2. 5 Not Available [facility] ([facility]) [address] [place] [address], [place], [address], 02/07/2016 13:11:26 02/04/20 16 02/05/2016 CMP, serum or plasm a bilirubin, total <0.2 mg/dL 0.0-1. 2 Not Available [facility] ([facility]) [address] [place], [address], 02/07/2016 13:11:26 02/04/20 16 02/05/2016 CMP, serum or plasm a alkaline phosphatase, S 97 IU/L 39-117 Not Available [facility] ([facility]) [address] [place] [address], [address], 02/07/2016 13:11:26 02/04/20 16 02/05/2016 CMP, serum or plasm a AST (SGOT) 15 IU/L 0-40 Not Available [facility] ([facility]) [address] [facility] [place], [address], 02/07/2016 13:11:26 02/04/20 16 02/05/2016 CMP, serum or plasm a ALT (SGPT) 15 IU/L 0-32 Not Available [facility] ([facility]) [address] [facility] [place], [address], 02/07/2016 13:11:26 02/04/20 16 02/05/2016 lipid panel , serum cholesterol, total 201 mg/dL 100-19 9 above high normal Not Available [facility] ([facility]) [address] [facility] [place], [address], 02/07/2016 13:11:26 02/04/20 16 02/05/2016 lipid panel , serum triglyceride s 91 mg/dL 0-149 Not Available [facility] ([facility]) [address] [place], [address], 02/07/2016 13:11:26 02/04/20 16 02/05/2016 lipid panel , serum HDL cholesterol 72 mg/dL >39 ACCOR DING TO ATP-I II GUIDE LINES , HDL-C >59 MG/DL IS CONSI DERED A NEGAT CAMPOS RISK FACTO R FOR CHD. 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 2 LDL/H DL RATIO MEN WOMEN 1/2 AVG.R ISK 1.0 1.5 AVG.R ISK 3.6 3.2 2X AVG.R ISK 6.2 5.0 3X AVG.R ISK 8.0 6.1 Not Available [facility] ([facility]) [address] [place], [address], 02/07/2016 13:11:26 02/04/20 16 02/07/2016 vitam in D, 25-hy droxy , total , serum vitamin D, 25-hydroxy, serum 37 NG/mL REFER ENCE RANGE : ALL AGES: TARGE T LEVEL S 30 - 100 Not Available [facility] [address] [place] [address], [address], 02/07/2016 13:11:27 04/02/20 16 04/03/2016 gluco se slava ance test, post- 75G, 3 speci mens glucose, fasting 92 mg/dL 65-99 Not Available [facility] ([facility]) [address] [place], [address], 04/03/2016 06:12:40 04/02/20 16 04/03/2016 gluco se slava ance test, post- 75G, 3 speci mens glucose, 1/2 hour TNP TEST NOT PERFO RMED Not Available [facility] ([facility]) [address] [place], [address], 04/03/2016 06:12:40 04/02/20 16 04/03/2016 gluco se slava ance test, post- 75G, 3 speci mens glucose, 1 hour 189 mg/dL 65-199 Not Available [facility] ([facility]) [address] [place], [address], 04/03/2016 06:12:40 04/02/20 16 04/03/2016 gluco se slava ance test, post- 75G, 3 speci mens glucose, 1 1/2 hour TNP TEST NOT PERFO RMED Not Available [facility] ([facility]) [address] [place], [address], 04/03/2016 06:12:40 04/02/20 16 04/03/2016 gluco se slava ance test, post- 75G, 3 speci mens glucose, 2 hour 97 mg/dL 65-139 Not Available [facility] ([facility]) [address] [place], [address], 04/03/2016 06:12:40 04/02/20 16 04/03/2016 gluco se slava ance test, post- 75G, 3 speci mens glucose, 3 hour TNP TEST NOT PERFO RMED Not Available [facility] ([facility]) [address] [place] [address], [address], 04/03/2016 06:12:40 04/02/20 16 04/03/2016 gluco se slava ance test, post- 75G, 3 speci mens glucose, 4 hour TNP TEST NOT PERFO RMED Not Available [facility] ([facility]) [address] [place], [address], 04/03/2016 06:12:40 04/02/20 16 04/03/2016 gluco se slava ance test, post- 75G, 3 speci mens glucose, 5 hour TNP TEST NOT PERFO RMED Not Available [facility] ([facility]) [address] [place], [address], 04/03/2016 06:12:40 04/02/20 16 04/03/2016 gluco se slava ance test, post- 75G, 3 speci mens glucose, 6 hour TNP TEST NOT PERFO RMED Not Available [facility] ([facility]) [address] [facility], [place], [address], 04/03/2016 06:12:40 04/02/20 16 04/03/2016 HbA1c (hemo globi n A1c), blood hemoglobin A1C 6.0 % 4.8-5. 6 above high normal PRE-D IABET ES: 5.7 - 6.4 DIABE ROSE: >6.4 GLYCE ARON CONTR OL FOR ADULT S WITH DIABE ROSE: <7.0 Not Available [facility] ([facility]) [address] [facility], [place], [address], 04/03/2016 06:12:41 01/29/20 16 01/28/2016 bone densi ty, dual photo n absor ptiom etry No observ ation record ed. [email or web address] [facility] [address] [place], [address], 08/20/2016 09:43:33 02/21/20 16 02/21/2016 US, kidne y No observ ation record ed. [email or web address] Not Available 2015 15:40:26 05/21/19 17 05/21/2016 MRI, brain + brain stem, w/wo contr ast No observ ation record ed. [email or web address] [facility] [address] [place], [address], 07/03/2016 11:40:04 05/21/19 17 05/21/2016 MRI, cervi taylor spine , w/o contr ast No observ ation record ed. [email or web address] [facility] (Imaging) [address] [place], [address], 05/29/2016 07:28:18 06/03/19 17 06/03/2016 MAMMO , scree uziel, bilat eral No observ ation record ed. [email or web address] Not Available 07/02 15:29:02 06/27/19 17 06/27/2016 XR, chest , 2 view No observ ation record ed. [facility] (Imaging) [address] [place], [address], 07/16/2016 13:29:36 07/04/19 17 6 minut e walk test* No observ ation record ed. [facility] ([facility]) [address] [place], [address], 07/04/2016 12:37:03 Result Notes None recorded. Problems Name Problem SNOMED Code Status Onset Date Resolution Date Notes Provider Name and Address Organization Details Recorded Time Chronic obstructive pulmonary disease 43218387 Active Milena Dos Santos MD Attn: Wilmer bullock,[address] [facility], [place], [place], [address] [place] [address] 2, [facility] 6 15:15:05 Tobacco dependence syndrome 58543164 Active Milena Dos Santos MD Attn: Wilmer bullock,[address] [facility], [place], [place], [address] [place] [address] 2, [facility] 6 15:15:05 Chronic low back pain 987681151 Active Milena Dos Santos MD Attn: Wilmer bullock,[address] [facility], [place], [place], [address] [place] [address] 2, [facility] 6 15:15:05 Esophageal dysphagia 10793601 Active Milena Dos Santos MD Attn: Wilmer bullock,[address] [facility], [place], [place], [address] [place] [address] 2, [facility] 6 15:15:05 Dystonia 69626758 Active Milena Dos Santos MD Attn: Wilmer bullock,[address] [place], [place], [address] [place] [address] 2, [facility] 6 15:15:05 Osteoporosis [id number] Diandra Gonzalez RN null, [facility] 6 15:14:16 Problem Notes None recorded. Procedures Surgical History Date Name Laterality Status Provider Name and Address Organization Details Recorded Time 05/04/19 15 Mammogram screening completed Judd Valentine MA [facility] 01/21/2016 14:25:00 05/04/19 14 Diagnostic colonoscopy completed Judd Valentine MA [facility] 01/21/2016 14:25:00 05/04/19 09 Screening pap smear by phys completed Judd Valentine MA [facility] 01/21/2016 14:25:00 Dilation and Curettage completed Judd Valentine MA [facility] 01/21/2016 14:25:00 Tonsillectomy completed Judd Valentine MA [facility] 01/21/2016 14:25:00 Hysterectomy completed Judd Valentine MA [facility] 01/21/2016 14:25:00 Appendectomy completed Judd Valentine MA [facility] 01/21/2016 14:25:00 Imaging Results Imaging Date Name Status LastModified by Organization Details LastModified Time 01/28/2016 bone density, dual photon absorptiometry completed [email or web address] [facility] [address] [place], [address], 08/20/2016 09:43:33 02/21/2016 US, kidney completed [email or web address] Information no t available 03/12/2016 15:40:26 05/21/2016 MRI, brain + brain stem, w/wo contrast completed [facility] [address] [place], [address], 07/03/2016 11:40:04 05/21/2016 MRI, cervical spine, w/o contrast completed [email or web address] [facility] (Imaging) [address] [place], [address], 05/29/2016 07:28:18 06/03/2016 MAMMO, screening, bilateral completed [email or web address] Information not available 07/14/2016 15:29:02 06/27/2016 XR, chest, 2 view completed [facility] (Imaging) [address] [place], [address], 07/16/2016 13:29:36 07/03/2016 6 minute walk test* completed [facility] ([facility] Scheduling) [address], [place], [address], 07/04/2016 12:37:03 Procedure Notes None recorded. Medical Equipment None Reported. Allergies Allergen ID Allergen Name Allergen Category Reaction Reaction Severity Criticality Documentation Date Start Date Code Code System Note Provider Name and Address Organization Details Recorded Time 57129 Product containin g penicilli n (product) medicatio n Not available Not available Not available 01/21/2016 00343 8001 SNOMED Not Available Not Available Not Available 74266 Demerol medicatio n itching Not available Not available 01/21/2016 23750 1 RxNorm Not Available Not Available Not [...] propionate 50 mcg/actuatio n nasal spray,suspen haleigh [place] 1 spray every day by intranasal route. [...] Updated DateTime 6 169.545 cm 71 /min 01947.3 62252 g 96 % 96 % 18.9 kg/m2 98.3 [degF] 144 mm[Hg] 70 mm[Hg] Judd Valentine [place] [facility] 6 14:25:00 Date Recorded Body height Body weight Body mass index (BMI) Body temperature Oxygen saturation Oxygen saturation in Arterial blood by Pulse oximetry Heart rate Systolic blood pressure Diastolic blood pressure Provider Name and Address Organization Details Last Updated DateTime 6 169.545 cm 41565.7 1 g 19.3 kg/m2 98.3 [degF] 95 % 95 % 88 /min 104 mm[Hg] 60 mm[Hg] Judd Valentine [place] [facility] 6 16:32:19 Date Recorded Body height Body weight Body mass index (BMI) Body temperature Oxygen saturation Oxygen saturation in Arterial blood by Pulse oximetry Heart rate Systolic blood pressure Diastolic blood pressure Provider Name and Address Organization Details Last Updated DateTime 7 169.545 cm 03961.4 8 g 19.8 kg/m2 97.9 [degF] 96 [...] Details Last Updated DateTime 7 169.545 cm 65306.7 g 19.3 kg/m2 98.1 [degF] 92 % [...] Updated DateTime 7 169.545 cm 20.5 kg/m2 78262.2 9 g 97.7 [degF] 95 % 95 [...] 0.5 mL 07/09/2020 completed Nato Maria null, [place] [facility] 11/07/2020 16:13:26 pneumococcal, unspecified formulation 05/04/2005 completed Judd Valentine [place], [place] [facility] 01/21/2016 14:25:00 Past Encounters Encounter ID Performer Location Encounter Start Date Encounter Closed Date Diagnosis/Indication Diagnosis SNOMED-CT Code Diagnosis ICD10 Code Diagnosis Note [id number] Asif (Adult Med) [address] [place] [address] 15492-151 0 01/21/2016 13:44:23 01/21/2016 18:02:47 Chronic obstructive pulmonary disease 60975030 J44.9 Tobacco de pendence syndrome 41548566 F17.290 Chronic low back pain 27 3937288 M54.5 Esophageal dysphagia 408 33237 R13.19 Adult heal th examination 910020038 Z00.00 Screening for osteoporosis 720193114 Z13.820 Dystonia 06224840 G24.9 [id number] MD Asif Colindres (Adult Med) [address] [place] [address] [phone] 0 03/21/2016 15:52:50 03/21/2016 17:46:52 Chronic obstructive pulmonary disease 91650875 J44.9 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 Chronic low back pain 27 9151293 M54.5 Esophageal dysphagia 408 82531 R13.19 She had upper EGD scopic ex. by a GI specialist and was dilated and recently had unremarkab le colonoscop y ex by GI specialist as well. Osteoporosis 28901994 M8 1.0 Osteopenia 432049528 M85 .9 [id number] MD Asif Colindres (Adult Med) [address] [place] [address]28-912 0 07/01/2016 15:40:48 07/01/2016 18:04:54 Chronic obstructive pulmonary disease 30992588 J44.9 Will have nurse arrange the 6 minutes walking test to see if she is qualified for the home oxygen, Jennifer won't give such choice on the computer. Tobacco de pendence syndrome 39485077 F17.290 She is on the nicotine patch for quitting cigarettes . [id number] [facility] [address] [place] [address] 11/24/2016 14:30:40 11/24/2016 17:09:34 Pharyngitis 129061105 J02.9 Thrash. Chronic ob structive pulmonary disease 34823355 J44.9 Will have nurse arrange the 6 minutes walking test to see if she is qualified for the home oxygen, Jennifer won't give such choice on the computer. Tobacco de pendence syndrome 22402980 F17.290 She is on the nicotine patch for quitting cigarettes . Multiple joint pain 3567 8005 M25.50 Had been on sertraline . Chronic low back pain 27 0668191 M54.5 Same as sertraline . Lumbar radiculopathy 128 228062 M54.16 Health Concerns Section Related Observation LastModified by Organization Detai ls LastModified Time None Recorded Concern Status LastModified by Organization Details LastModified Time None Recorded Advance Directives Directive None Recorded Payers Encounter Date Sequence Insurance Name Policy Number Policy Granados Covered Member ID Granados Member ID Guarantor Name 01/21/2016 1 [place] Melyssa A [place] [id number] A M[place]ssa [place] 01/21/2016 2 [place] [facility] Melyssa [place] [id number] Melyssa [place] 03/21/2016 1 [place] A [place] [id number] A M[place]ssa [place] 03/21/2016 2 [place] [facility] Melyssa [place] [id number] Melyssa [place] 05/28/2016 1 [place]a A [place] [id number] A Melyssa [place] 05/28/2016 2 [place] [facility] Melyssa [place] [id number] Melyssa [place] 07/01/2016 1 [place]a A [place] [id number] A Melyssa [place] 07/01/2016 2 [place] [facility] Melyssa [place] [id number] Melyssa Cal 11/24/2016 1 [place]a A [place] [id number] A Melyssa Cal Notes Date Note Type [...] Milena Dos Santos MD Attn: Accounting,[address] [place], [address], [facility] 01/21/2016 15:15:32 03/21/2016 text/html She has gone to GI specialist for dilatation of esophageal stricture, her food regurgitaion has resolved and no more aspiration /or pneumonia and has gained weight after the improving appetite and oral intake but still smokes cigarettes. Milena Dos Santos MD Attn: Accounting[address] [facility], [place], [address], [facility] 03/21/2016 17:39:07 11/24/2016 text/html She is happy abo ut that her ears can hear well again. and she had benign lump removed on her right thigh, had seen GI doctor for her esophageal dysphagia, still smokes cigarettes , using inhalers, chronic throat sore . Allergic to penicillins and demerol. Milena Dos Santos MD Attn: Accounting[address] , [place], [address], [facility] 11/24/2016 17:07:30 OBGyn Episode No OBEpisode recorded.
--- OUTSIDE RECORDS SUMMARY | 2024-08-11 01:35 | XMS_ITS | Clinical Summary ---
Author Organization [facility] Address [address] [place] [address] Care Team Providers Care Rn Family Name Role Phone West Pino MD Unavailable [phone] Yvan Jaime MD Unavailable [phone] None, Provider MD Primary Care Provider Unavaila [...] CDT Gender Identity Female 05/09/2021 3:57 PM BIOINFORMATICS SOFTWARE ENGINEER Sexual Orientation Straight 05/09/2021 3: 57 PM BIOINFORMATICS SOFTWARE ENGINEER Last Filed Vital Signs Vital Sign Reading Time Taken Comments Blood Pressure 106/60 03/28/2022 9:13 AM BIOINFORMATICS SOFTWARE ENGINEER Pulse 80 03/28/2022 9:13 AM BIOINFORMATICS SOFTWARE ENGINEER Temperature 36.1 C (97 F) 03/28/2022 9:13 AM BIOINFORMATICS SOFTWARE ENGINEER Respiratory Rate 20 03/28/2022 9:13 AM BIOINFORMATICS SOFTWARE ENGINEER Oxygen Saturation 94% 03/28/2022 9:13 AM BIOINFORMATICS SOFTWARE ENGINEER Inhaled Oxygen Concentration - - Weight 52.6 kg (116 lb) 03/28/2022 9:13 AM BIOINFORMATICS SOFTWARE ENGINEER Height 167.6 cm (5' 6 ) 03/28/2022 9:13 AM BIOINFORMATICS SOFTWARE ENGINEER Body Mass Index 18.72 03/28/2022 9:13 AM BIOINFORMATICS SOFTWARE ENGINEER Plan of Treatment Health Maintenance Due Date Last Done Comments Colorectal Cancer Screening Colonoscopy (10 Years) 1955 Hepatitis C 07/25/1971 DTaP, Tdap and Td Vaccines ( 1 - Tdap) 1972 RSV Immunization or 60+ Years (1 - Risk 60-74 years 1-dose series) 2013 Mammogram Screening 04/16/2017 04/16/2015, 01/30/2014 Annual Medicare Wellness Visit 2018 Dexa Scan (General) 2018 Pneumococcal Vaccine: 65+ Years (2 of 2 - PPSV23 or PCV20) 03/02/2020 01/06/2020 COVID-19 Vaccine (2 - 2023-2 5 season) 2024 07/09/2020 Zoster Vaccines Completed 04/24/2018, 01/27/2018 Meningococcal B Vaccine Aged Out No l onger eligible based on patient's age to complete this topic Meningococcal Vaccine Aged Out No antonietta vin eligible based on patient's age to complete this topic RSV Immunizations Under 20 Months Aged Out No longer eligible b ased on patient's age to complete this topic Medical Devices Implanted Type Area Customer Experience Manager Device Identifier Shelf Expiration Date Model / Serial / Lot Stent Bard Robert Lee 6fr X 24cm - [id number] Implanted:Qty : 1 on 05/17/2019 by West Pino MD at [facility] Stent Left: Ureter [employer] 05/12/2023 [id number] / / [id number] Stent Bard Robert Lee 6fr X 24cm - [id number] Implanted:Qty : 1 on 05/17/2019 by West Pino MD at [facility] Stent Right: Ureter [employer] 05/12/2023 [id number] / / [id number] Stent Ureteral Pigtail 6fr 24cm Crv Taper Tip - [id number] Implanted:Qty : 1 on 02/26/2021 by West Pino MD at [facility] Stent Left: Ureter [employer]I [id number] 11/28/2023 [id number] Procedures Procedure Name Priority Date/Time Associated Diagnosis Comments MG SCREENING PAIGE DIGI Routine 04/16/2015 3:06 PM BIOINFORMATICS SOFTWARE ENGINEER from Last 3 Months or Most Recently Relevant to Health Maintenance Results * MG SCREENING PAIGE DIGI (04/16/2015 3:06 PM BIOINFORMATICS SOFTWARE ENGINEER) Anatomical Region Laterality Modality Breast Bilateral Mammography 04/16/2015 3:06 PM BIOINFORMATICS SOFTWARE ENGINEER 04/16/2015 3:06 PM BIOINFORMATICS SOFTWARE ENGINEER Narrative 04/16/2015 3:24 PM BIOINFORMATICS SOFTWARE ENGINEER DEBBYMELYSSA ADMIT/SERVICE DATE: 04/16/15 ACCT: [id number] DISCHARGE DATE: : 1955 SEX: F ORD SITE: [facility] PT TYPE: REG CLI ORDERING MD: MANE RAMIREZ MD STUDY DATE REPORT # ORDER # EXT ORDER ID 04/16/15 [id number] PROC CODE: SCMAMDGB PROCEDURE DESCRIPTION: MG SCREEN [...] BENY CRAFT04/16/2015 3:20 PM Procedure Note Michael Mclean, - 02/26/2018 MELYSSA MCCALL ADMIT/SERVICE DATE:04/16/15 ACCT: [id number] DISCHARGE DATE: : 1955 SEX: F ORD SITE: [facility] PT TYPE: REG CLI ORDERING MD:MANE RAMIREZ MD STUDY DATE REPORT # ORDER # EXT ORDER ID 04/16/15 [id number] PROC CODE: SCMAMDGB PROCEDURE DESCRIPTION: MG SCREEN [...] 1:01 PM 02/26/2021 3:43 PM Care Teams Rn Family Relationship Specialty Start Date End Date None, Shena, PCP - General UNKNOWN PHYSICIAN SPECIALTY 03/28/22 West Pino MD UROLOGY 05/03/19 Yvan Jaime MD [address] [place] [address] Surgeon NEUROLOGICAL SURGERY 05/03/19
--- OUTSIDE RECORDS SUMMARY | 2024-08-11 01:35 | XMS_ITS | Continuity of Care Document ---
Author Organization [facility] Address [address] [place] [address] Phone Care Team Providers Care Tobacco Warehouse Agent Name Role Phone Sherif Doyle MD Unavailable Unavailable Allergies, Adverse Reactions, Alerts Substance Reaction Status Criticality PENICILLIN G POTASSIUM Active No In formation MEPERIDINE HCL Active No Informatio n Medications Medication Instructions Dosage Effective Dates (start - stop) Status Comments METHADOSE 5 MGTABLET tk 2 ts qd - Acti ve Lidoderm 5 % (700 mg/patch) Adhesive Patch - Active Miacalcin 200 unit/Actuation Nasal [place] Aerosol 1 spray each nostril qd - [...] on Encounter [facility], [address], [id number], [place] tel:[phone] [facility] No Information 6 Vivek Gorman. [address] [place] [address], [id number] , [place]. tel:[phone] Offic/outpt E&m Estab Minor 10 [facility], [address] [address], [place], [place], [id number], [place] tel:[phone] [facility] No Information 6 José Luis Sullivan. [address] [facility], [address], [id number] , [place]. tel:[phone] Referring Provider: Nate Ordonez V, [address], [address] . tel:[phone] [facility], [address], [place], [place], [id number], [place] tel:[phone] [facility] No Information 6 José Luis Sullivan. [address], [address], [place], [place], [id number] , [place]. tel: [phone] Referring Provider: Nate Ordonez V, [address], [place], [address] . tel:[phone] [facility], [address], [place], [place], [id number], [place] tel:[phone] [facility] No Information 6 José Luis Sullivan. [address], [address], [place], [place], [id number] , [place]. tel: [phone] Referring Provider: Nate Ordonez V, [address], [place], [address] . tel:[phone] Offic/outpt E&m Estab Low-mod [facility], [address], [place], [place], [id number], [place] tel:[phone] [facility] No Information 6 José Luis Sullivan. [address], [address], [place], [place], [id number] , [place]. tel:[phone] Referring Provider: Nate Ordonez V, [address], [place], [address] . tel:[phone] Offic/outpt E&m Estab Low-mod [facility], [address], [place], [place], [address], [place] tel:[phone] [facility] No Information 6 José Luis Sullivan. [address], [address], [place], [place], [id number] , [place]. tel: [phone] Referring Provider: Nate Ordonez V, [address], [place], [address] . tel:[phone] Offic/outpt E&m Estab Minor 10 [facility], [address], [place], [place], [address], [place] tel:[phone] [facility] No Information May-0 9-200 6 José Luis Sullivan. [address], [address], [place], [place], [id number] , [place]. tel:[phone] Referring Provider: Nate Ordonez V, [address], [place], [address] . tel:[phone] [facility], [address], [place], [place], [address], [place] tel:[phone] [facility] No Information May-0 5-200 6 José Luis Sullivan. [address], [address], [place], [place], [id number] , [place]. tel:[phone] Referring Provider: Nate Ordonez V, [address], [place], [address] . tel:[phone] [facility], [address], [place], [place], [id number], [place] tel:[phone] [facility] No Information May-0 2-200 6 José Luis Sullivan. [address], [address], [place], [place], [id number] , [place]. tel:[phone] Referring Provider: Nate Ordonez V, [address], [place], [address] . tel:[phone] [facility], [address], [place], [place], [id number], [place] tel:[phone] [facility] No Information Apr-2 8-200 6 Ordonez Nate. [address], [address], [place], [place], [id number] , [place]. tel:[phone] Referring Provider: Nate Ordonez V, [address], [place], [address] . tel:[phone] [facility], [address], [place], [place], [address], [place] tel:[phone] [facility] No Information Aug- 5-200 6 José Luis Sullivan. [address], [address], [place], [place], [id number] , [place]. tel:[phone] Referring Provider: Nate Ordonez V, [address], [place], [address] . tel:[phone] [facility], [address], [place], [place], [id number], [place] tel:[phone] [facility] NANCY No Information 6 José Luis Sullivan. [address], [address], [place], [place], [id number] , [place]. tel:[phone] Referring Provider: Nate Ordonez V, [address], [place], [address] . tel:[phone] [facility], [address], [place], [place], [id number], [place] tel:[phone] [facility] NANCY No Information 200 6 José Luis Sullivan. [address], [address], [place], [place], [address] , [place]. tel:[phone] Referring Provider: Nate Ordonez V, [address], [place], [address] . tel:[phone] Offic Cons New/estab Mod-hi 60 [facility], [address], [place], [place], [address], [place] tel:[phone] [facility]Y No Information 8-200 6 José Luis Sullivan. [address], [facility] [address], [place], [place], [id number] , [place]. tel:[phone] Referring Provider: Nicho Goldstein MD B, [address] [place] [place], [address]. tel:[phone] Family History Family Member Type Diagnosis Age At Onset Gen Fam Hx Problem (finding) Cancer Gen Fam Hx Problem (finding) Stroke Payers Payer name Insurance type Covered green party ID Authorstepha jevon(s) [employer] Of [facility] [id number] Social History Type Description Quantity Date Captured [...]
--- OUTSIDE RECORDS SUMMARY | 2024-08-11 01:35 | XMS_ITS | Clinical Summary ---
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
--- OUTSIDE RECORDS SUMMARY | 2024-08-11 01:35 | XMS_ITS | Data Portability ---
Author Organization [facility], Main Office Address [address] [place] [address] Assessment Encounter Date Assessment Date Assessment LastModified by Organization Details LastModified Time 11/20/2022 11/20/2022 This note is dictated and transcribed by [employer]. [employer] Consultant variances may occur. Despite proofreading, typographical errors [...] Recorded Time Metatarsalg ia of right foot [id number] 00 Active 2022 Shemar Fairchild DPM [address], [address], [place], [address], [facility] 3 16:36:55 Foot callus 221223761 Active 2022 Shemar Fairchild DPM [address], [address], [place], [address], [facility] 3 16:36:59 Hammer toe 474189615 Active 2022 Shemar Fairchild DPM [address], [address], [place], [address], [facility] 3 16:37:19 Problem Notes None recorded. Procedures Surgical History Date Name Laterality Status Provider Name and Address Organization Details Recorded Time Hysterectomy, Partial completed Joycelyn Bean [facility] 11/20/2022 16:57:02 Appendectomy completed Joycelyn Bean [facility] 11/20/2022 16:57:06 Total hysterectomy completed Joycelyn Bean [facility] 11/20/2022 16:57:18 release of trigger finger completed Joycelyn Bean [facility] 11/20/2022 16:57:28 Tonsillectomy completed Joycelyn Bean [facility] 11/20/2022 16:57:34 Imaging Results None recorded. Procedure Notes None recorded. Medical Equipment None Reported. Allergies Allergen ID Allergen Name Allergen Category Reaction Reaction Severity Criticality Documentation Date Start Date Code Code System Note Provider Name and Address Organization Details Recorded Time 17918 Product containin g penicilli n (product) medicatio n Not available Not available Not available 11/20/2022 15205 8001 [facility]ED [facility] 16:51:43 22816 meperidin e medicatio n Not available Not available Not available 11/20/2022 6754 RxNorm [facility] 16:51:54 43461 sulfadime thoxine Not available Not available Not available Not available 11/20/2022 72624 RxNorm [facility] 16:52:05 03472 trimethop rim medicatio n Not available Not available Not available 11/20/2022 85294 Rx[facility] 16:52:18 Medications Name Sig [...] % 97 % 167.64 cm 16.9 kg/m2 06969.2 g 142 mm[Hg] 78 mm[Hg] Joycelyn US [facility] [employer] [facility] 3 16:19:04 Date Recorded Body height Body mass index (BMI) Body weight Heart rate Respiratory rate Oxygen saturation Oxygen saturation in Arterial blood by Pulse oximetry Systolic blood pressure Diastolic blood pressure Provider Name and Address Organization Details Last Updated DateTime 3 167.64 cm 16.9 kg/m2 21278.2 g 72 /min 14 /min 97 % 97 % 134 mm[Hg] 69 mm[Hg] Joycelyn Bean [facility] 3 14:02:12 Social History Question Answer Notes LastModified by Organizat ion Details LastModified Time Tobacco Smoking Status Current Every Day Smoker Joycelyn amin [facility] 11/20/2022 16:56:20 What Is Your Level Of [...] Y PULMONARY DISEASE Y URINARY/BLADDER/KIDNEY PROBLEMS Y LUNG DISEASE/DISORDER Y BACK / NECK PROBLEMS Y HEARTBURN / REFLUX Y HIGH CHOLESTEROL / HYPERLIPIDEMIA Y Gynecological HistoryNo gynecological history recorded. Obstetrics History GPAL:G 0 P 0 0 0 0 Past Encounters Encounter ID Performer Location Encounter Start Date Encounter Closed Date Diagnosis/Indication Diagnosis SNOMED-CT Code Diagnosis ICD10 Code Diagnosis Note [id number] Shemar Fairchild DPM [facility] [place] [address] [facility], [address] [place] [address] 11/20/2022 16:13:05 11/25/2022 16:43:24 Metatarsalgia of right foot 3871900828 85990 M77.41 sub 3rd metatarsal head, right footas above Foot callus 261153952 L8 4 sub 3rd metatarsal headMildOf floading with metatarsal pad had to functional orthoticse ducated on supportive shoe gearFollow -up in 1 month Hammer toe 264412537 M20 .41 right 2nd 3rd toes mildEducat ed on treatment optionCont inue with conservati ve therapy [id number] Shemar Fairchild DPM [facility] [place] [address] [facility], [address] [place] [address] 12/18/2022 13:48:12 12/18/2022 14:26:06 Hammer toe 890508723 M20.41 right 2nd 3rd toes mildpatien t would like to continue with conservati ve therapyrec ommend silicone sleeves and soft high toe box shoe to prevent wounds infectionF ollow-up as needed Foot callus 178771678 L8 4 sub 3rd metatarsal headresolv ed with offloading Metatarsal ella of right foot 7326935975 12271 M77.41 sub 3rd metatarsal head, right footResolv [...] 11/20/2022 1 [place] Melyssa A [place] [id number] Melyssa A [place] 11/20/2022 2 [place] [facility] OF PUBLIC AID Melyssa A [place] [id number] Melyssa A [place] 12/18/2022 1 [place] M[place]ssa A [place] [id number] Melyssa A [place] 12/18/2022 2 [place] [facility] OF PUBLIC AID Melyssa A [place] [id number] Melyssa A Cal Notes Date Note Type [...] area. Patient has been seen by another middle stitcher to which she has custom orthotics and [...] Fairchild DPM [address], [address], [place], [address], [facility] 11/25/2022 12:13:28 12/18/2022 text/html . Patient is [...] Fairchild DPM [address], [place], [address], [facility] 12/18/2022 14:07:57 OBGyn Episode No OBEpisode recorded.
--- OUTSIDE RECORDS SUMMARY | 2024-08-11 01:36 | XMS_ITS | Clinical Summary ---
Author Organization [facility] [address] [facility] Address [address] [place] [address] Care Team Providers Care Ekg Manager Name Role Phone Tommy King DO Primary Care Provider [phone] Source Comments [facility],non-owned Affiliates and Associated Physician Practices is amultiple site organization consisting of ambulatory clinics and hospital sitesin [place], [place], [place] and [place]. This disclosure is being madepursuant to the Care Everywhere program and may not contain all information available regarding this patient. Last updated 18.[facility] Allergies Active Allergy Reactions Criticality Noted Date [...] fluticasone propionate (FLONASE) 50 MCG/ACT nasal spray [place] 2 sprays into the nose once daily [...] 81 mg by mouth once daily Active Wmaffqifpyevzoo-AP-II -APAP (ROBITUSSIN COLD/COUGH/FLU PO) Take 13.5 mg by mouth Active clotrimazole-betameth asone (LOTRISONE) 1-0.05 % cream APPLY TOPICALLY TO THE AFFECTED AREA TWICE DAILY 04/24/2021 Active potassium citrate (UROCIT K 10) 10 MEQ (1080 MG) tablet 06/10/2021 Active doxycycline monohydrate 100 MG tablet TAKE 1 TABLET BY MOUTH DAILY FOR 10 DAYS 05/06/2021 Active ucweitqc-ryknknszb-ob xameth (MAXITROL) ophthalmic suspension 07/30/2021 Act amadeo [...] 36.8 C (98.3 F) 06/12/2021 10:53 AM ONION TIER Respiratory Rate 18 05/23/2021 12:51 PM ONION TIER Oxygen Saturation 91% 08/05/2021 9:59 AM CDT [...] VACCINE (3 - season) 2024 02/28/2021, 07/09/2020 DEPRESSION SCREENING 05/04/2024 MEDICARE AWV CALENDAR YEAR 2024 INFLUENZA VACCINE (Season Ended) 2025 01/15/2021, 01/06/2020, 01/13/2018, Additional history exists Respiratory Syncytial Virus (RSV) Vaccine Pt: or [...] this topic Medical Devices Implanted Type Area Core Loader Device Identifier Shelf Expiration Date Model / Serial / Lot Lead Nrstm 60cm Penta 3mm Pdl 16 [facility] - [id number] Implanted:Qty: 1 on 05/23/2021 by Esau Rose MD at [facility] Back [employer] 10/19/2022 [id number] / [id number] / Slnt Dura Duraseal Pg Trilysine Amine 5 Implanted:Qty: 1 on 05/23/2021 by Esau Rose MD at [facility] Back [employer] Erendira [id number] / / [id number] Gntr Nrstm 1.95inx2.19in [employer] - [id number] Implanted:Qty: 1 on 05/23/2021 by Esau Rose MD at [facility] Left: Back [employer] 03/26/2023 [id number] / [id number] / Care Teams Ekg Manager Relationship Specialty Start Date End Date Tommy King DO PCP - General Internal Medicine 04/23/21
[2024-08-11 09:25] VITALS: BP 121/57; PULSE 78; RESP 20; TEMP 36.5; O2SAT 94
[2024-08-11] MEDS: LACTATED RINGERS 1,000 ML 150 ML IV CONT (09:34)
--- NOTE | 2024-08-11 09:51 | P.PNAN_ITS ---
Anes - Initial Pre Proc Eval Procedure: Operation Date: 08/11/24 10:30 Proposed Procedures p Esophagogastroduodenoscopy - Channing Ryan MD Date/Time: 08/11/24 09:51 Surgeon: Channing Ryan MD Pre Op Diagnosis: Dysphagia, unspecified,GERD,Esophageal obstruction Patient Data Age: 69 Gender: F Height: 1.7 m Weight: 42 kg Last Vital Signs Temp 97.7 F 08/11/24 09:25 Pulse 78 08/11/24 09:25 Resp 20 08/11/24 09:25 BP 121/57 L 08/11/24 09:25 Pulse Ox 94 08/11/24 09:25 O2 Del Method Room Air 08/11/24 09:25 Allergies Allergy/AdvReac Type Severity Reaction Status Date / Time Penicillins Allergy Severe Anaphylaxis Verified 08/11/24 09:20 meperidine Allergy Intermediate Itching Verified 08/11/24 09:20 sulfamethoxazole (From Allergy Intermediate Mouth Verified 08/11/24 09:20 Bactrim) burning/redness trimethoprim (From Bactrim) Allergy Intermediate Mouth Verified 08/11/24 09:20 burning/redness mirtazapine AdvReac Mild Headache Verified 08/11/24 09:20 Home Medications ?Medication ?Instructions ?Recorded ?Confirmed ?Type aspirin 81 mg tablet,delayed 81 mg PO DAILY 06/02/19 08/11/24 History release (Adult Aspirin Regimen) cyclobenzaprine 5 mg tablet 5 mg PO BID 01/05/20 08/11/24 History oxycodone myristate 13.5 mg 13.5 mg PO Q12H 11/19/21 08/11/24 History capsule sprinkle extend release 12hr(DON'T CRUSH) (Xtampza ER) solifenacin 10 mg tablet (Vesicare) 5 mg PO HS 02/04/23 08/11/24 History cholecalciferol (vitamin D3) 125 125 mcg PO DAILY 07/24/23 08/11/24 History mcg (5,000 unit) tablet (Vitamin D3) guaifenesin 600 mg tablet, 600 mg PO Q12H 07/24/23 08/11/24 History extended release 12 hr (Mucinex) loratadine 10 mg tablet 10 mg PO DAILY 07/24/23 08/11/24 History metoprolol succinate 25 mg See Rx Instructions .Route 10/28/23 08/11/24 Rx tablet,extended release 24 hr .COMPLEX #90 tabs albuterol sulfate 90 mcg/actuation See Rx Instructions .Route 03/15/24 08/05/24 History aerosol inhaler .COMPLEX PRN Shortness Of Breath Or Wheezing nicotine 21 mg/24 hr daily 1 patch transdermal DAILY 03/15/24 08/11/24 History transdermal patch omeprazole 40 mg capsule,delayed 40 mg PO DAILY #90 caps 06/02/24 08/11/24 Rx release albuterol sulfate 2.5 mg/3 mL 2.5 mg (3 mL) inhalation Q4-6H PRN 06/07/24 08/05/24 Rx (0.083 %) solution for nebulization shortness of breath or wheezing #180 mL paroxetine HCl 20 mg tablet See Rx Instructions .Route 06/17/24 08/11/24 Rx .COMPLEX #90 tabs tiotropium 2.5 mcg-olodaterol 2.5 See Rx Instructions .Route 06/20/24 08/11/24 Rx mcg/actuation mist for inhalation .COMPLEX #4 grams (Stiolto Respimat) fluticasone propionate 50 1 spray intranasal BID PRN nasal 07/11/24 08/05/24 Rx mcg/actuation nasal congestion #16 grams spray,suspension (Flonase Allergy Relief) gabapentin 300 mg capsule 300 mg PO Q8H 08/02/24 08/11/24 History lovastatin 40 mg tablet 40 mg PO HS 08/02/24 08/11/24 History prednisone 10 mg tablet 10 mg PO DIRECTED #32 tabs 08/04/24 08/11/24 Rx ferrous sulfate 325 mg (65 mg See Rx Instructions .Route 08/05/24 08/11/24 Rx iron) tablet (FeroSul) .COMPLEX #30 tabs Patient hx anesthesia problems: none Family hx anesthesia problems: none Results Review: All pre-operative results and documents have been reviewed as part of the pre- operative evaluation. [facility] Past Medical History Medical History OSWALD (iron deficiency anemia) Osteopenia Liana esophagitis RLS (restless legs syndrome) Esophageal dilatation Chronic narcotic use On home O2 Chronic sinusitis Dysphagia Olecranon bursitis, left elbow PSVT (paroxysmal supraventricular tachycardia) Change in bowel habits Kidney stones Fibromyalgia Rheumatoid arthritis Arthritis Constipation IBS (irritable bowel syndrome) GERD (gastroesophageal reflux disease) Stomach ulcer Wears glasses Ventricular ectopics Lumbar radiculopathy Family history of colon cancer Adenomatous colon polyp Esophageal stricture Urge incontinence ILD (interstitial lung disease) Small amount of interstitial lung disease was seen on base of lungs on chest CT 03/25/2018 which was an abdomen and pelvis CT Essential hypertension Oxygen dependent 2L w/activity, 1 w/rest Collagen vascular disease Hyperlipidemia, unspecified Infectious colitis Mass in neck Thrush Anxiety 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, patient unsure of this diagnosis COPD (chronic obstructive pulmonary disease) Tobacco abuse Surgical History Surgical History History of partial hysterectomy Status post insertion of spinal cord stimulator History of bladder suspension procedure History of appendectomy History of lumbar surgery Spinal cord stimulator implanted 05/23/21 Family History Family History Mother Patient's mother is , Onset Age: 72 Sibling Carcinoma of colon Ovarian cancer Lung cancer Rectal cancer Family history of malignant neoplasm of breast in first degree relative Father Brain aneurysm Other Arthritis COPD (chronic obstructive pulmonary disease) Cerebrovascular accident High cholesterol Hypertension Lung disease Neuropathy Social History Social History Social History: caffeine-coffee/soda Smoking packs per day: 1 Smoking cigarettes per day: 20.0 Years smoked: 60 Smoking pack-years: 60.00 Smoking status: Light tobacco smoker Tobacco type: cigarettes Second hand tobacco smoke exposure: Yes Smoking end date: 05/19/23 Additional smoking assessment comments: nicotine patch and weaning down to 5/day Alcohol intake: never Substance use: unknown Substance use type: marijuana Other substance usage details: EDIBLES Last use: 2 weeks Do You Feel Safe in your Home?: Yes Lack of Transportation: No Lack of Food: Never True Current Housing: I Have Housing Concerned About Future Housing: No Difficulty Paying Gas/Electric Bills: No Difficulty Paying for Meds: No Currently Unemployed: No Education: High School Diploma/GED Difficulty w/ Childcare or Family Care: No Living arrangements: alone Occupation/Education: retired Gender identity (if verbalized by the patient): Female Spiritual care concerns: No Anes - Eval Final PreProcedure Day of Procedure 08/11/24 09:51 Patient weight: normal Heart: regular rate and rhythm Lungs: clear to auscultation Airway: Mallampati scale class II Neurological: alert and oriented Last oral intake: >/= 8 hours ASA classification: IV Emergent: no Anesthetic plan: proceed Anesthesia type and monitoring: general GIVS and standard monitoring Results Review: All pre-operative results and documents have been reviewed as part of the pre- operative evaluation. Informed Consent: The patient's anesthetic plan and its attendant risks and benefits were discussed with the patient/family/POA. Questions were solicited and answers provided to the satisfaction of the patient/family/POA.
--- NOTE | 2024-08-11 10:08 | PM.HPGS ---
History of Present Illness History of Present Illness Consent: Risks, benefits, and alternatives have been discussed and questions answered. Patient agrees to proceed with procedure. Chief complaint: Dysphagia, unspecified,GERD,Esophageal obstruction Narrative: Melyssa Mccall is a 69 year old female with dysphagia, had EGD with dilation 06/2024, also treated for tai esophagitis (she was on prednisone) Review of Systems Review of Systems: All systems reviewed & are unremarkable except as noted in HPI and below PMFSH Past Medical History Medical History OSWALD (iron deficiency anemia) Osteopenia Tai esophagitis RLS (restless legs syndrome) Esophageal dilatation Chronic narcotic use On home O2 Chronic sinusitis Dysphagia Olecranon bursitis, left elbow PSVT (paroxysmal supraventricular tachycardia) Change in bowel habits Kidney stones Fibromyalgia Rheumatoid arthritis Arthritis Constipation IBS (irritable bowel syndrome) GERD (gastroesophageal reflux disease) Stomach ulcer Wears glasses Ventricular ectopics Lumbar radiculopathy Family history of colon cancer Adenomatous colon polyp Esophageal stricture Urge incontinence ILD (interstitial lung disease) Small amount of interstitial lung disease was seen on base of lungs on chest CT 03/25/2018 which was an abdomen and pelvis CT Essential hypertension Oxygen dependent 2L w/activity, 1 w/rest Collagen vascular disease Hyperlipidemia, unspecified Infectious colitis Mass in neck Thrush Anxiety 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, patient unsure of this diagnosis COPD (chronic obstructive pulmonary disease) Tobacco abuse Surgical History Surgical History History of partial hysterectomy Status post insertion of spinal cord stimulator History of bladder suspension procedure History of appendectomy History of lumbar surgery Spinal cord stimulator implanted 05/23/21 Family History Family History Mother Patient's mother is , Onset Age: 72 Sibling Carcinoma of colon Ovarian cancer Lung cancer Rectal cancer Family history of malignant neoplasm of breast in first degree relative Father Brain aneurysm Other Arthritis COPD (chronic obstructive pulmonary disease) Cerebrovascular accident High cholesterol Hypertension Lung disease Neuropathy Social History Social History Social History: caffeine-coffee/soda Smoking packs per day: 1 Smoking cigarettes per day: 20.0 Years smoked: 60 Smoking pack-years: 60.00 Smoking status: Light tobacco smoker Tobacco type: cigarettes Second hand tobacco smoke exposure: Yes Smoking end date: 05/19/23 Additional smoking assessment comments: nicotine patch and weaning down to 5/day Alcohol intake: never Substance use: unknown Substance use type: marijuana Other substance usage details: EDIBLES Last use: 2 weeks Do You Feel Safe in your Home?: Yes Lack of Transportation: No Lack of Food: Never True Current Housing: I Have Housing Concerned About Future Housing: No Difficulty Paying Gas/Electric Bills: No Difficulty Paying for Meds: No Currently Unemployed: No Education: High School Diploma/GED Difficulty w/ Childcare or Family Care: No Living arrangements: alone Occupation/Education: retired Gender identity (if verbalized by the patient): Female Spiritual care concerns: No Meds Home Medications and Allergies Home Medications ?Medication ?Instructions ?Recorded ?Confirmed ?Type aspirin 81 mg tablet,delayed 81 mg PO DAILY 06/02/19 08/11/24 History release (Adult Aspirin Regimen) cyclobenzaprine 5 mg tablet 5 mg PO BID 01/05/20 08/11/24 History oxycodone myristate 13.5 mg 13.5 mg PO Q12H 11/19/21 08/11/24 History capsule sprinkle extend release 12hr(DON'T CRUSH) (Xtampza ER) solifenacin 10 mg tablet (Vesicare) 5 mg PO HS 02/04/23 08/11/24 History cholecalciferol (vitamin D3) 125 125 mcg PO DAILY 07/24/23 08/11/24 History mcg (5,000 unit) tablet (Vitamin D3) guaifenesin 600 mg tablet, 600 mg PO Q12H 07/24/23 08/11/24 History extended release 12 hr (Mucinex) loratadine 10 mg tablet 10 mg PO DAILY 07/24/23 08/11/24 History metoprolol succinate 25 mg See Rx Instructions .Route 10/28/23 08/11/24 Rx tablet,extended release 24 hr .COMPLEX #90 tabs albuterol sulfate 90 mcg/actuation See Rx Instructions .Route 03/15/24 08/05/24 History aerosol inhaler .COMPLEX PRN Shortness Of Breath Or Wheezing nicotine 21 mg/24 hr daily 1 patch transdermal DAILY 03/15/24 08/11/24 History transdermal patch omeprazole 40 mg capsule,delayed 40 mg PO DAILY #90 caps 06/02/24 08/11/24 Rx release albuterol sulfate 2.5 mg/3 mL 2.5 mg (3 mL) inhalation Q4-6H PRN 06/07/24 08/05/24 Rx (0.083 %) solution for nebulization shortness of breath or wheezing #180 mL paroxetine HCl 20 mg tablet See Rx Instructions .Route 06/17/24 08/11/24 Rx .COMPLEX #90 tabs tiotropium 2.5 mcg-olodaterol 2.5 See Rx Instructions .Route 06/20/24 08/11/24 Rx mcg/actuation mist for inhalation .COMPLEX #4 grams (Stiolto Respimat) fluticasone propionate 50 1 spray intranasal BID PRN nasal 07/11/24 08/05/24 Rx mcg/actuation nasal congestion #16 grams spray,suspension (Flonase Allergy Relief) gabapentin 300 mg capsule 300 mg PO Q8H 08/02/24 08/11/24 History lovastatin 40 mg tablet 40 mg PO HS 08/02/24 08/11/24 History prednisone 10 mg tablet 10 mg PO DIRECTED #32 tabs 08/04/24 08/11/24 Rx ferrous sulfate 325 mg (65 mg See Rx Instructions .Route 08/05/24 08/11/24 Rx iron) tablet (FeroSul) .COMPLEX #30 tabs Allergies Allergy/AdvReac Type Severity Reaction Status Date / Time Penicillins Allergy Severe Anaphylaxis Verified 08/11/24 09:20 meperidine Allergy Intermediate Itching Verified 08/11/24 09:20 sulfamethoxazole (From Allergy Intermediate Mouth Verified 08/11/24 09:20 Bactrim) burning/redness trimethoprim (From Bactrim) Allergy Intermediate Mouth Verified 08/11/24 09:20 burning/redness mirtazapine AdvReac Mild Headache Verified 08/11/24 09:20 Vital Signs Vital Signs - 24 hr 08/11/24 09:25 Temperature 97.7 F Pulse Rate 78 Respiratory Rate 20 Blood Pressure 121/57 L Pulse Oximetry 94 Oxygen Delivery Room Air Exam Const: General: comfortable and no acute distress HENMT: Face/Nose/Sinus: Normal nares present Eyes: General: appearance normal, both eyes and all related structures Neck: Neck: no JVD Resp: Auscultation: clear to auscultation bilaterally Cardio: Rate: regular rate Rhythm: regular rhythm GI: Inspection: non-distended GI Palp: Yes Soft to palpation Skin: General skin exam: normal color Neuro: Speech: normal speech Extrem: General: normal to inspection Psych: Mental Status: mental status grossly normal Assessment and Plan Assessment and plan (1) Dysphagia: Code(s): R13.10 - Dysphagia, unspecified Status: Acute Assessment and Plan: egd
[2024-08-11 10:20] VITALS: BP 114/39; PULSE 71; RESP 19; O2SAT 100
[2024-08-11 10:30] VITALS: BP 97/44; PULSE 73; RESP 19; O2SAT 100
[2024-08-11 10:40] VITALS: BP 101/48; PULSE 75; RESP 20; O2SAT 96
== END 2024-08-11 10:47 | disposition home or self-care (01) ==
PROVIDERS: PCP Family Medicine; Referring Provider Internal Medicine Gastroenterology; Visit Provider Internal Medicine Gastroenterology
PROC: 0DJ08ZZ Inspection of Upper Intestinal Tract, Via Natural or Artificial Opening Endoscopic (ICD-10-PCS; CPT 43249; principal; 2024-08-11 10:30)
DX: K22.2 Esophageal obstruction (principal); K21.9 Gastro-esophageal reflux disease without esophagitis; D50.9 Iron deficiency anemia, unspecified; I10 Essential (primary) hypertension; E78.5 Hyperlipidemia, unspecified; F41.9 Anxiety disorder, unspecified; J44.9 Chronic obstructive pulmonary disease, unspecified; N39.41 Urge incontinence; J84.9 Interstitial pulmonary disease, unspecified; K58.9 Irritable bowel syndrome, unspecified; G25.81 Restless legs syndrome; J32.9 Chronic sinusitis, unspecified; I47.10 Supraventricular tachycardia, unspecified; M85.88 Other specified disorders of bone density and structure, other site; M79.7 Fibromyalgia; M06.9 Rheumatoid arthritis, unspecified; M19.90 Unspecified osteoarthritis, unspecified site; I49.3 Ventricular premature depolarization; M54.16 Radiculopathy, lumbar region; M35.9 Systemic involvement of connective tissue, unspecified; G37.9 Demyelinating disease of central nervous system, unspecified; F17.210 Nicotine dependence, cigarettes, uncomplicated; Z99.81 Dependence on supplemental oxygen; F12.90 Cannabis use, unspecified, uncomplicated; Z79.82 Long term (current) use of aspirin; Z79.891 Long term (current) use of opiate analgesic; Z79.51 Long term (current) use of inhaled steroids; Z79.52 Long term (current) use of systemic steroids; Z98.890 Other specified postprocedural states; Z98.1 Arthrodesis status; Z96.82 Presence of neurostimulator; Z86.0100 Personal history of colon polyps, unspecified; Z87.442 Personal history of urinary calculi; Z87.11 Personal history of peptic ulcer disease; Z87.19 Personal history of other diseases of the digestive system; Z80.0 Family history of malignant neoplasm of digestive organs; Z80.41 Family history of malignant neoplasm of ovary; Z80.1 Family history of malignant neoplasm of trachea, bronchus and lung; Z80.3 Family history of malignant neoplasm of breast; Z82.49 Family history of ischemic heart disease and other diseases of the circulatory system
CPT/HCPCS: 43249; J2003; J2704; J7120

== ENCOUNTER 2024-08-31 08:54 | Inpatient (IN) | payer MEDICARE, MEDICAID, SELFPAY ==
[2024-08-31] VITALS (21 sets, daily range): BP systolic 102–146; BP diastolic 50–72; PULSE 67–77; RESP 13–21; TEMP 36.1–36.7; O2SAT 77–100; BMI 13.9
--- NOTE | ~2024-08-31 | XR_ITS ---
XR chest 1V portable Ordering provider: Noble Newman MD History: 69 years Female with . pneumonia . Comparison: August 31, 2024 FINDINGS: MEDIASTINUM: The cardiac silhouette is not enlarged. LUNGS: Emphysematous changes of the lungs. Opacity in the right upper lobe is noted which may indicat e residual pneumonia versus nodule versus fibrotic changes.further evaluation advised. No effusions o r pneumothorax. OTHER: No free air under the diaphragm. Spinal stimulator is seen. IMPRESSION: No significant change from previous examination. Opacity in the right upper lobe. Further evaluation advised. Reviewed, dictated and finalized at location A. IMPRESSION: No significant change from previous examination. Opacity in the right upper lob e. Further evaluation advised.
--- NOTE | ~2024-08-31 | CT_ITS ---
EXAMINATION: CTA chest PE protocol DATE: 08/31/2024 11:02 INDICATION: Shortness of breath TECHNIQUE: Computed tomography (CT) pulmonary angiogram of the chest was performed with 100 mL Omnipa que-350 intravenous contrast. Additional 3D reconstructions utilizing coronal maximum intensity proje ction (MIP) were performed. Automated exposure control and iterative reconstruction technique were em ployed. The dose-length product was 151.66 mGy-cm. COMPARISON: 08/02/2024 and 12/08/2023 FINDINGS: No pulmonary embolism. Severe emphysema with chronic partially calcified by apical pleural-parenchyma l scarring. There is been some progression of low-attenuation fluid/mucus within several of the cysti c airspace in the right upper lobe which are new since 12/08/2023 consistent with pneumonia. Unchanged chronic reticulonodular opacities with a few small calcified nodules in the basilar right middle lobe and lingula consistent with sequela of chronic pneumonia. No pleural effusion. Heart size is normal. Atherosclerotic coronary artery calcific lesion. No pericardial effusion. Thoracic aorta is normal i n caliber. No pathologically enlarged thoracic lymphadenopathy. 1 cm cyst and 13 x 5 x 3 mm nonobstru cting stone at the upper pole the left kidney. There is scattered cortical scarring in the right kidn ey consistent with sequela of prior infection or infarction. Additional 2 mm nonobstructing stone at the lower pole of the right kidney. Mild thoracic spondylosis with chronic minimal anterior wedging o f a few mid and lower thoracic vertebral bodies. Spinal stimulator leads which terminate at the poste rior central canal at the level of T6-T7. IMPRESSION: 1. No pulmonary embolism. 2. Severe emphysema with right upper lobe pneumonia. 3. Bilateral nonobstructing nephrolithiasis. Reviewed, dictated and finalized at location B.
--- NOTE | ~2024-08-31 | XR_ITS ---
MODIFIED ESOPHAGRAM HISTORY: Dysphagia. TECHNIQUE: Modified barium esophagram was performed by speech pathologist under radiologist fluorosco pic guidance. This was recorded on tape. The exam was reviewed on 09/01/2024 16:34 CDT. The DAP for this procedure was 0.9 Gycm2. Fluoroscopy time is 1.9 minutes. FINDINGS: Lateral projection of the cervical spine demonstrates age-appropriate degenerative diseas e. Trace penetration with puree and solids, with spontaneous clearance. No aspiration.. IMPRESSION: 1: Trace penetration without aspiration. 2: Please refer to speech pathologist report for additional detail. Reviewed, dictated and finalized at location A.
--- NOTE | ~2024-08-31 | XR_ITS ---
EXAMINATION: XR chest 2V DATE: 08/31/2024 10:11 INDICATION: Shortness of breath. Hypoxia. TECHNIQUE: PA and lateral views of the chest were obtained. COMPARISON: Chest radiograph and CT dated 08/02/2024 and prior chest radiograph dated 05/31/[address] dated 12/08/2023. FINDINGS: Emphysema with calcified biapical pleural-parenchymal scarring. Persistent patchy airspace opacities in the right upper lung zone which are new since 3 months prior consistent with pneumonia. No signifi cant change in a chronic coarse reticulonodular pattern with small calcified pulmonary nodule Bilateral lower lung zones consistent with chronic pneumonia. No pleural effusion or pneumothorax. He art size is normal. Enlargement of the central pulmonary arteries consistent with pulmonary arterial hypertension. Thoracic spondylosis with spinal stimulator lead projecting over the posterior central canal at the level of T5-T6. IMPRESSION: 1. Persistent right upper lobe pneumonia. 2. Emphysema with biapical pleural-parenchymal scarring. 3. Unchanged reticulonodular pattern in the lower lungs with multiple small calcified pulmonary nodul es consistent with sequela of chronic infection. 4. Enlargement of the central pulmonary arteries consistent with pulmonary arterial hypertension. Reviewed, dictated and finalized at location B. IMPRESSION: 1. Persistent right upper lobe pneumonia. 2. Emphysema with biapical pleural-parenchymal scarring. 3. Unchanged reticulonodular pattern in the lower lungs with multiple small taylor cified pulmonary nodules consistent with sequela of chronic infection. 4. Enlargement of the central pulmonary arteries consistent with pulmonary stanislav rial hypertension.
--- NOTE | 2024-08-31 09:01 | ECG_ITS ---
Test Date: 2024-08-31 09:04:27 Measurements Intervals [place] Rate: 75 P: -17 UT: 121 QRS: 71 QRSD: 84 T: 76 QT: 359 QTc: 401 Interpretive Statements SINUS RHYTHM WITH OCCASIONAL SUPRAVENTRICULAR PREMATURE COMPLEXES CONSIDER RIGHT VENTRICULAR CONDUCTION DELAY BORDERLINE ECG Compared to ECG 08/02/2024 18:14:20 No significant changes Electronically Signed On 08-31-2024 09:16:[address] D.O.
--- NOTE | 2024-08-31 09:15 | ED_ITS ---
HPI - SOB/Dyspnea General Chief Complaint: Shortness of Breath/Dyspnea Stated Complaint: lack of oxygen Time Seen by Provider: 08/31/24 09:00 History of Present Illness HPI Narrative: Patient a 69 year old female who presents to the ER with increased shortness of breath and chest pain. She reports she was hospitalized in the beginning of August for a COPD exacerbation. Patient endorses improvement following discharge, but has had increased shortness of breath, lightheadedness, and intermittent chest pain over the past couple of days. She also reports her oxygen saturation goes down to the 70s when she exerts herself. Patient reports she has been using neb treatments at home with little relief. She wears 1-3 L nasal cannula at baseline. Patient reports she has a history of COPD, FMS, high blood pressure cholesterol, GERD, and CHF. She denies any recent fevers, abdominal pain, back pain, or loss of consciousness. Related Data Home Medications ?Medication ?Instructions ?Recorded ?Confirmed ?Last Taken ?Type aspirin 81 mg tablet,delayed 81 mg PO DAILY 06/02/19 08/31/24 08/10/24 History release (Adult Aspirin Regimen) cyclobenzaprine 5 mg tablet 5 mg PO BID 01/05/20 08/31/24 08/10/24 History oxycodone myristate 13.5 mg 13.5 mg PO Q12H 11/19/21 08/31/24 08/10/24 History capsule sprinkle extend release 12hr(DON'T CRUSH) (Xtampza ER) solifenacin 10 mg tablet (Vesicare) 5 mg PO HS 02/04/23 08/31/24 08/10/24 History cholecalciferol (vitamin D3) 125 125 mcg PO DAILY 07/24/23 08/31/24 08/10/24 History mcg (5,000 unit) tablet (Vitamin D3) guaifenesin 600 mg tablet, 600 mg PO Q12H 07/24/23 08/31/24 08/10/24 History extended release 12 hr (Mucinex) loratadine 10 mg tablet 10 mg PO DAILY 07/24/23 08/31/24 08/10/24 History albuterol sulfate 90 mcg/actuation See Rx Instructions .Route 03/15/24 08/31/24 Unknown History aerosol inhaler .COMPLEX PRN Shortness Of Breath Or Wheezing nicotine 21 mg/24 hr daily 1 patch transdermal DAILY 03/15/24 08/31/24 08/10/24 History transdermal patch lovastatin 40 mg tablet 40 mg PO HS 08/02/24 08/31/24 08/10/24 History Allergies Allergy/AdvReac Type Severity Reaction Status Date / Time Penicillins Allergy Severe Anaphylaxis Verified 08/31/24 07:58 meperidine Allergy Intermediate Itching Verified 08/31/24 07:58 sulfamethoxazole (From Allergy Intermediate Mouth Verified 08/31/24 07:58 Bactrim) burning/redness trimethoprim (From Bactrim) Allergy Intermediate Mouth Verified 08/31/24 07:58 burning/redness mirtazapine AdvReac Mild Headache Verified 08/31/24 07:58 Review of Systems 2 Review of Systems: All systems reviewed & are unremarkable except as noted in HPI and below PMFSH Past Medical History Medical History OSWALD (iron deficiency anemia) Osteopenia Liana esophagitis RLS (restless legs syndrome) Esophageal dilatation Chronic narcotic use On home O2 Chronic sinusitis Dysphagia Olecranon bursitis, left elbow PSVT (paroxysmal supraventricular tachycardia) Change in bowel habits Kidney stones Fibromyalgia Rheumatoid arthritis Arthritis Constipation IBS (irritable bowel syndrome) GERD (gastroesophageal reflux disease) Stomach ulcer Wears glasses Ventricular ectopics Lumbar radiculopathy Family history of colon cancer Adenomatous colon polyp Esophageal stricture Urge incontinence ILD (interstitial lung disease) Small amount of interstitial lung disease was seen on base of lungs on chest CT 03/25/2018 which was an abdomen and pelvis CT Essential hypertension Oxygen dependent 2L w/activity, 1 w/rest Collagen vascular disease Hyperlipidemia, unspecified Infectious colitis Mass in neck Thrush Anxiety 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, patient unsure of this diagnosis COPD (chronic obstructive pulmonary disease) Tobacco abuse Surgical History Surgical History History of partial hysterectomy Status post insertion of spinal cord stimulator History of bladder suspension procedure History of appendectomy History of lumbar surgery Spinal cord stimulator implanted 05/23/21 Family History Family History Mother Patient's mother is , Onset Age: 72 Sibling Carcinoma of colon Ovarian cancer Lung cancer Rectal cancer Family history of malignant neoplasm of breast in first degree relative Father Brain aneurysm Other Arthritis COPD (chronic obstructive pulmonary disease) Cerebrovascular accident High cholesterol Hypertension Lung disease Neuropathy Social History Social History Social History: caffeine-coffee/soda Smoking packs per day: 1 Smoking cigarettes per day: 20.0 Years smoked: 60 Smoking pack-years: 60.00 Smoking status: Current every day smoker Tobacco type: cigarettes Second hand tobacco smoke exposure: Yes Additional smoking assessment comments: Using Nicotine patches Alcohol intake: never Substance use: unknown Other substance usage details: EDIBLES Last use: 2 weeks Do You Feel Safe in your Home?: Yes Lack of Transportation: No Lack of Food: Never True Current Housing: I Have Housing Concerned About Future Housing: No Difficulty Paying Gas/Electric Bills: No Difficulty Paying for Meds: No Currently Unemployed: No Education: High School Diploma/GED Difficulty w/ Childcare or Family Care: No Living arrangements: alone Occupation/Education: retired Gender identity (if verbalized by the patient): Female Spiritual care concerns: No Exam 2 Narrative: GENERAL: Well appearing, well-nourished, non-toxic, in no acute distress. HEAD: Normocephalic, atraumatic. NECK: Supple. No adenopathy, no masses. RESPIRATORY: Airway patent, respirations nonlabored. + rales and wheezing CARDIOVASCULAR: Regular rate and rhythm without murmurs, rubs, or gallops. Peripheral pulses 2+ and equal bilaterally. ABDOMINAL: Soft, nontender, nondistended, no hepatosplenomegaly. Normoactive BS. MUSCULOSKELETAL: Moves all extremities. Strength/ROM intact without gross deformities. SKIN: Warm, dry, normal color. No rashes. NEURO: A&O X3. Speech clear. Cranial nerves II-XII intact. No ataxic movements. PSYCHIATRIC: Appropriate mood and affect. Normal interaction. Course Vital Signs Vital signs: Vital Signs Temperature 36.7 C 08/31/24 09:02 Pulse Rate 74 08/31/24 09:02 Respiratory Rate 16 08/31/24 09:02 Blood Pressure 146/70 H 08/31/24 09:02 Pulse Oximetry 77 L 08/31/24 09:02 Oxygen Delivery Room Air 08/31/24 09:02 Temperature 36.7 C 08/31/24 09:02 Pulse Rate 77 08/31/24 13:45 Respiratory Rate 16 08/31/24 13:45 Blood Pressure 138/72 08/31/24 13:45 Pulse Oximetry 95 08/31/24 13:45 Oxygen Delivery Nasal Cannula 08/31/24 10:22 Oxygen Flow Rate 2 08/31/24 10:22 MDM - SOB/Dyspnea MDM Narrative Medical decision making narrative: Patient a 69 year old female who presents to the ER with increased shortness of breath and chest pain. She reports she was hospitalized in the beginning of August for a COPD exacerbation. Patient endorses improvement following discharge, but has had increased shortness of breath, lightheadedness, and intermittent chest pain over the past couple of days. She also reports her oxygen saturation goes down to the 70s when she exerts herself. Patient reports she has been using neb treatments at home with little relief. She wears 1-3 L nasal cannula at baseline. Patient reports she has a history of COPD, FMS, high blood pressure cholesterol, GERD, and CHF. She denies any recent fevers, abdominal pain, back pain, or loss of consciousness. Labs Ordered: CBC, CMP, lactic acid, ESR, INR, PTT, CRP, ABG, COVID/flu/RSV, Magnesium, d.dimer, BNP Imaging Ordered: CTA chest, chest x-ray Medications Ordered: DuoNeb, levofloxacin IV, 1 L normal saline IV bolus Results: Patient's CT scan indicates No pulmonary embolism. Severe emphysema with chronic partially calcified by apical pleural-parenchymal scarring. There is been some progression of low-attenuation fluid/mucus within several of the cystic airspace in the right upper lobe which are new since 12/08/2023 consistent with pneumonia. Unchanged chronic reticulonodular opacities with a few small calcified nodules in the basilar right middle lobe and lingula consistent with sequela of chronic pneumonia. No pleural effusion. Heart size is normal. Atherosclerotic coronary artery calcific lesion. No pericardial effusion. Thoracic aorta is normal in caliber. No pathologically enlarged thoracic lymphadenopathy. 1 cm cyst and 13 x 5 x 3 mm nonobstructing stone at the upper pole the left kidney. There is scattered cortical scarring in the right kidney consistent with sequela of prior infection or infarction. Additional 2 mm nonobstructing stone at the lower pole of the right kidney. Mild thoracic spondylosis with chronic minimal anterior wedging of a few mid and lower thoracic vertebral bodies. Spinal stimulator leads which terminate at the posterior central canal at the level of T6-T7. Diagnosis: Right upper lobe pneumonia Patient Education/Shared MDM: Results shared with patient. She endorses mild improvement following duo neb administration. AGENCY LEGAL COUNSEL advised patient be admitted to the hospital, as she has pneumonia again and is requiring more oxygen to maintain her oxygen saturation. She will be given her 1st dose of IV antibiotics in the ER. 1400-spoke with hospitalist, Nargis, who was in agreement with admission. Patient verbalizes understanding and is in agreement with plan. Differential Diagnosis Differential diagnosis: Likely acute exacerbation of chronic obstructive airways disease, congestive heart failure, community acquired pneumonia and pulmonary embolism Lab Data Attestation: I reviewed the patient's lab results. 08/31/24 09:07 08/31/24 09:06 Labs: Lab Results 08/31/24 08/31/24 08/31/24 Range/Units 09:06 09:07 09:33 WBC 8.1 (4.5-10.0) K/mm3 RBC 4.30 (4.2-5.4) M/mm3 Hgb 13.2 (12.0-15.0) g/dL Hct 42.7 (37.0-47.0) % MCV 99.3 (80-100) fl MCH 30.7 (26-34) pg MCHC 30.9 L (32-36) g/dl RDW 12.3 (11.5-14.5) % Plt Count 221 (150-375) k/mm3 MPV 9.7 (7.4-10.4) fl Immature Gran % (Auto) 0.4 (0-0.5) % Neut % (Auto) 64.1 (45.5-73.1) % Lymph % (Auto) 22.2 (18.3-44.2) % [place] % (Auto) 9.8 H (2.6-8.5) % Eos % (Auto) 3.0 (0-4.4) % Baso % (Auto) 0.5 (0.2-1.2) % Lymph # (Auto) 1.79 (0.9-3.2) K/mm3 [place] # (Auto) 0.8 H (0.1-0.6) K/mm3 Eos # (Auto) 0.2 (0-0.3) K/mm3 Baso # (Auto) 0.0 (0.0-0.1) K/mm3 Abs Immat Gran (auto) 0.03 (0.00-0.031) K/mm3 Absolute Neuts (auto) 5.2 (1.3-6.7) K/mm3 Absolute Nucleated RBC 0.000 (0.0-0.012) K/mm3 Nucleated RBC % 0.0 (0.0-0.2) % ESR (0-20) mm/hr PT 12.8 (11.1-14.7) Seconds INR 0.9 APTT 25.4 (22.3-36.8) Seconds D-Dimer 0.86 H (<0.48) ug/mL Sodium 137 (137-145) mmol/L Potassium 5.3 H (3.4-5.0) mmol/L Chloride 95 L (98-107) mmol/L Carbon Dioxide 36 H (22-30) mmol/L Anion Gap 6 (4-12) mmol/L BUN 16 D (7-17) mg/dL Creatinine 0.62 L (0.7-1.0) mg/dL Estim Creat Clear Calc 44 ml/min Estimated GFR > 60 (59 - ) Glucose 99 (65-110) mg/dL Lactic Acid (0.7-2.0) mmol/L Calcium 9.2 (8.4-10.2) mg/dL Magnesium 2.0 (1.6-2.3) mg/dL Total Bilirubin 0.7 (0.2-1.3) mg/dL AST 30 (14-36) U/L ALT 19 (6-35) U/L Alkaline Phosphatase 104 (38-126) U/L Troponin I < 0.012 (0.000-0.034) ng/mL NT-Pro-B Natriuret Pep 236 H (19.9-100) pg/mL Total Protein 8.0 (6.3-8.2) g/dL Albumin 4.1 (3.5-5.1) g/dL Influenza A (RT-PCR) Negative (Negative) Influenza B (RT-PCR) Negative (Negative) RSV (RT-PCR) Negative (Negative) SARS-CoV-2 RNA (RT-PCR) Negative (Negative) 08/31/24 Range/Units 12:37 WBC (4.5-10.0) K/mm3 RBC (4.2-5.4) M/mm3 Hgb (12.0-15.0) g/dL Hct (37.0-47.0) % MCV (80-100) fl MCH (26-34) pg MCHC (32-36) g/dl RDW (11.5-14.5) % Plt Count (150-375) k/mm3 MPV (7.4-10.4) fl Immature Gran % (Auto) (0-0.5) % Neut % (Auto) (45.5-73.1) % Lymph % (Auto) (18.3-44.2) % [place] % (Auto) (2.6-8.5) % Eos % (Auto) (0-4.4) % Baso % (Auto) (0.2-1.2) % Lymph # (Auto) (0.9-3.2) K/mm3 [place] # (Auto) (0.1-0.6) K/mm3 Eos # (Auto) (0-0.3) K/mm3 Baso # (Auto) (0.0-0.1) K/mm3 Abs Immat Gran (auto) (0.00-0.031) K/mm3 Absolute Neuts (auto) (1.3-6.7) K/mm3 Absolute Nucleated RBC (0.0-0.012) K/mm3 Nucleated RBC % (0.0-0.2) % ESR 28 H (0-20) mm/hr PT (11.1-14.7) Seconds INR APTT (22.3-36.8) Seconds D-Dimer (<0.48) ug/mL Sodium (137-145) mmol/L Potassium (3.4-5.0) mmol/L Chloride (98-107) mmol/L Carbon Dioxide (22-30) mmol/L Anion Gap (4-12) mmol/L BUN (7-17) mg/dL Creatinine (0.7-1.0) mg/dL Estim Creat Clear Calc ml/min Estimated GFR (59 - ) Glucose (65-110) mg/dL Lactic Acid 0.9 (0.7-2.0) mmol/L Calcium (8.4-10.2) mg/dL Magnesium (1.6-2.3) mg/dL Total Bilirubin (0.2-1.3) mg/dL AST (14-36) U/L ALT (6-35) U/L Alkaline Phosphatase (38-126) U/L Troponin I (0.000-0.034) ng/mL NT-Pro-B Natriuret Pep (19.9-100) pg/mL Total Protein (6.3-8.2) g/dL Albumin (3.5-5.1) g/dL Influenza A (RT-PCR) (Negative) Influenza B (RT-PCR) (Negative) RSV (RT-PCR) (Negative) SARS-CoV-2 RNA (RT-PCR) (Negative) ABG Data ABG results: 08/31/24 09:28 Puncture Site Left brachial ABG pH 7.393 ABG pCO2 57.5 H ABG pO2 69.1 L ABG PO2/FiO2 Ratio 2.88 ABG HCO3 34.3 H ABG O2 Saturation 93.4 L ABG O2 Content 16.4 ABG Base Excess 7.6 A-a Gradient 33.6 Oxyhemoglobin 89.6 L Total Hemoglobin 13.0 O2 Delivery Device Nasal cannula O2 Liters/Min 1.0 FiO2 24 Imaging Data Attestation: I personally reviewed and interpreted this imaging study as follows: Radiologist's impression: Impressions Chest X-Ray 08/31/24 10:11 IMPRESSION: 1. Persistent right upper lobe pneumonia. 2. Emphysema with biapical pleural-parenchymal scarring. 3. Unchanged reticulonodular pattern in the lower lungs with multiple small calcified pulmonary nodules consistent with sequela of chronic infection. 4. Enlargement of the central pulmonary arteries consistent with pulmonary arterial hypertension. Chest CTA 08/31/24 11:15 IMPRESSION: 1. No pulmonary embolism. 2. Severe emphysema with right upper lobe pneumonia. 3. Bilateral nonobstructing nephrolithiasis. Discharge Plan Discharge Clinical Impression: Community acquired pneumonia, Acute exacerbation of chronic bronchitis COPD (chronic obstructive pulmonary disease) Qualifiers: COPD type: unspecified COPD Qualified Code(s): J44.9 - Chronic obstructive pulmonary disease, unspecified Patient Disposition: Still a Patient Condition: Stable Patient Language: Italian Prescriptions: No Action aspirin [Adult Aspirin Regimen] 81 mg tablet,delayed release (DR/EC) 81 mg PO DAILY cyclobenzaprine 5 mg tablet 5 mg PO BID solifenacin [Vesicare] 10 mg tablet 5 mg PO HS albuterol sulfate 2.5 mg /3 mL (0.083 %) solution for nebulization 2.5 mg inhalation Q4-6H PRN (Reason: shortness of breath or wheezing) Qty: 180 3RF Xtampza ER 13.5 mg cap,sprinkl,ER12hr(DONT CRUSH) 13.5 mg PO Q12H albuterol sulfate 90 mcg/actuation HFA aerosol inhaler See Rx Instructions .ROUTE .COMPLEX PRN (Reason: Shortness Of Breath Or Wheezing) Rx Instructions: INHALE 1 PUFF BY MOUTH EVERY 4 HOURS NEEDED FOR SHORTNESS OF BREATH nicotine 21 mg/24 hr Patch 24 Hour 1 patch TRANSDERMAL DAILY lovastatin 40 mg tablet 40 mg PO HS loratadine 10 mg Tablet 10 mg PO DAILY cholecalciferol (vitamin D3) [Vitamin D3] 125 mcg (5,000 unit) Tablet 125 mcg PO DAILY guaifenesin [Mucinex] 600 mg Tablet Extended Release 12hr 600 mg PO Q12H metoprolol succinate 25 mg tablet extended release 24 hr See Rx Instructions .ROUTE .COMPLEX Qty: 90 2RF Dose Instruction: TAKE 1 TABLET BY MOUTH DAILY Rx Instructions: TAKE 1 TABLET BY MOUTH DAILY- AM omeprazole 40 mg capsule,delayed release(DR/EC) 40 mg PO DAILY Qty: 90 1RF Rx Instructions: TAKE 1 CAPSULE BY MOUTH DAILY paroxetine HCl 20 mg tablet See Rx Instructions .ROUTE .COMPLEX Qty: 90 1RF Dose Instruction: TAKE 1 TABLET BY MOUTH DAILY Rx Instructions: TAKE 1 TABLET BY MOUTH DAILY Stiolto Respimat 2.5-2.5 mcg/actuation mist See Rx Instructions .ROUTE .COMPLEX Qty: 4 11RF Dose Instruction: INHALE 2 PUFFS BY MOUTH DAILY Rx Instructions: INHALE 2 PUFFS BY MOUTH DAILY fluticasone propionate [Flonase Allergy Relief] 50 mcg/actuation spray,suspension 1 spray intranasal BID PRN (Reason: nasal congestion) Qty: 16 3RF Rx Instructions: administer into each nostril ferrous sulfate [FeroSul] 325 mg (65 mg iron) tablet See Rx Instructions .ROUTE .COMPLEX Qty: 30 3RF Dose Instruction: TAKE 1 TABLET BY MOUTH EVERY MORNING Rx Instructions: TAKE 1 TABLET BY MOUTH EVERY MORNING gabapentin 300 mg capsule 300 mg PO Q12H Qty: 180 0RF Follow-up/Referrals: Grace Mondragon DO [Primary Care Provider] -
[2024-08-31 09:20] LABS: Basophils Percent Auto 0.5 % (0.2-1.2); Eosinophils Absolute Auto 0.2 K/mm3 (0-0.3); Hematocrit 42.7 % (37.0-47.0); Hemoglobin 13.2 g/dL (12.0-15.0); Immature Granulocyte Absolute 0.03 K/mm3 (0.00-0.031); Immature Granulocyte Percent A 0.4 % (0-0.5); Lymphocytes Absolute Auto 1.79 K/mm3 (0.9-3.2); Lymphocytes Percent Auto 22.2 % (18.3-44.2); Mean Corpuscular HGB Conc 30.9 g/dl (32-36); Mean Corpuscular Hemoglobin 30.7 pg (26-34); Mean Corpuscular Volume 99.3 fl (80-100); Mean Platelet Volume 9.7 fl (7.4-10.4); Monocytes Absolute Auto 0.8 K/mm3 (0.1-0.6); Monocytes Percent Auto 9.8 % (2.6-8.5); Neutrophils Absolute Auto 5.2 K/mm3 (1.3-6.7); Neutrophils Percent Auto 64.1 % (45.5-73.1); Platelet Count Result 221 k/mm3 (150-375); Red Cell Distribution Width 12.3 % (11.5-14.5); White Blood Count 8.1 K/mm3 (4.5-10.0)
[2024-08-31] MEDS: IPRATROPIUM 0.5 MG/ALBUTEROL SULFATE 2.5 MG AMPUL.NEB 3 ML INHALATION ×3 (09:20→21:52)
--- OUTSIDE RECORDS SUMMARY | 2024-08-31 09:20 | XMS_ITS | Clinical Summary ---
Author Organization [facility] Address [address] [place] [address] Care Team Providers Care Principal Process Engineer Name Role Phone West Pino MD Unavailable [phone] Yvan Jaime MD Unavailable [phone] None, Provider MD Primary Care Provider Unavaila [...] CDT Gender Identity Female 05/09/2021 3:57 PM [employer] Sexual Orientation Straight 05/09/2021 3: 57 PM [employer] Last Filed Vital Signs Vital Sign Reading Time Taken Comments Blood Pressure 106/60 03/28/2022 9:13 AM [employer] Pulse 80 03/28/2022 9:13 AM [employer] Temperature 36.1 C (97 F) 03/28/2022 9:13 AM [employer] Respiratory Rate 20 03/28/2022 9:13 AM [employer] Oxygen Saturation 94% 03/28/2022 9:13 AM [employer] Inhaled Oxygen Concentration - - Weight 52.6 kg (116 lb) 03/28/2022 9:13 AM [employer] Height 167.6 cm (5' 6 ) 03/28/2022 9:13 AM [employer] Body Mass Index 18.72 03/28/2022 9:13 AM [employer] Plan of Treatment Health Maintenance Due Date Last Done Comments Colorectal Cancer Screening Colonoscopy (10 Years) 1955 Hepatitis C 07/25/1971 DTaP, Tdap and Td Vaccines ( 1 - Tdap) 1972 RSV Immunization or 60+ Years (1 - Risk 60-74 years 1-dose series) 2013 Mammogram Screening 04/16/2017 04/16/2015, 01/30/2014 Annual Medicare Wellness Visit 2018 Dexa Scan (General) 2018 Pneumococcal Vaccine: 50+ Years (2 of 2 - PPSV23) 03/02/2020 01/06/2020 COVID-19 Vaccine (2 - 2023-2 [...] this topic Medical Devices Implanted Type Area Life Sciences Instructor Device Identifier Shelf Expiration Date Model / Serial / Lot Stent Bard Dierks 6fr X 24cm - [id number] Implanted:Qty : 1 on 05/17/2019 by West Pino MD at [facility] Stent Left: Ureter [employer] 05/12/2023 [id number] / / [id number] Stent Bard Dierks 6fr X 24cm - [id number] Implanted:Qty : 1 on 05/17/2019 by West Pino MD at [facility] Stent Right: Ureter [employer] 05/12/2023 [id number] / / [id number] Stent Ureteral Pigtail 6fr 24cm Crv Taper Tip - [id number] Implanted:Qty : 1 on 02/26/2021 by West Pino MD at [facility] Stent Left: Ureter Covarity LANI [id number] 11/28/2023 [id number] Procedures Procedure Name Priority Date/Time Associated Diagnosis Comments MG SCREENING PAIGE DIGI Routine 04/16/2015 3:06 PM [employer] from Last 3 Months or Most Recently Relevant to Health Maintenance Results * MG SCREENING PAIEG DIGI (04/16/2015 3:06 PM [employer]) Anatomical Region Laterality Modality Breast Bilateral Mammography 04/16/2015 3:06 PM [employer] 04/16/2015 3:06 PM [employer] Narrative 04/16/2015 3:24 PM [employer] MELYSSA MCCALL ADMIT/SERVICE DATE: 04/16/15 ACCT: [id number] DISCHARGE DATE: : 1955 SEX: F ORD SITE: [facility] PT TYPE: REG CLI ORDERING MD: MANE RAMIREZ MD STUDY DATE REPORT # ORDER # EXT ORDER ID 04/16/15 [id number] PROC CODE: SCMAMDGB PROCEDURE DESCRIPTION: MG SCREEN [...] - 02/26/2018 MELYSSA MCCALL ADMIT/SERVICE DATE:04/16/15 ACCT: [id number] DISCHARGE DATE: : 1955 SEX: F ORD SITE: [facility] PT TYPE: REG CLI ORDERING MD:MANE RAMIREZ MD STUDY DATE REPORT # ORDER # EXT ORDER ID 04/16/15 [id number] PROC CODE: SCMAMDGB PROCEDURE DESCRIPTION: MG SCREEN [...] 1:01 PM 02/26/2021 3:43 PM Care Teams Principal Process Engineer Relationship Specialty Start Date End Date None, ProviderMD PCP - General UNKNOWN PHYSICIAN SPECIALTY 03/28/22 West Pino MD UROLOGY 05/03/19 Yvan Jaime MD [address] [place] [id number] Surgeon NEUROLOGICAL SURGERY 05/03/19
--- OUTSIDE RECORDS SUMMARY | 2024-08-31 09:20 | XMS_ITS | Continuity of Care Document ---
Author Organization [facility] Address [address] [facility] [address] [place] [address] Phone Care Team Providers Care Pulling Unit Operator Name Role Phone Sherif Doyle MD Unavailable Unavailable Allergies, Adverse Reactions, Alerts Substance Reaction Status Criticality PENICILLIN G POTASSIUM Active No In formation MEPERIDINE HCL Active No Informatio n Medications Medication Instructions Dosage Effective Dates (start - stop) Status Comments METHADOSE 5 MGTABLET tk 2 ts qd - Acti ve Lidoderm 5 % (700 mg/patch) Adhesive Patch - Active Miacalcin 200 unit/Actuation Nasal [place] Aerosol 1 spray each nostril qd - [...] on Encounter [facility], [address], [id number], [place] tel:[phone] [facility] No Information 6 Vivek Gorman. [address] [place] [address], [id number] , [place]. tel:[phone] Offic/outpt E&m Estab Minor 10 [facility], [address] [address], [place], [place], [id number], [place] tel:[phone] [facility] No Information 6 José Luis Sullivan. [address] [facility], [address], [id number] , [place]. tel:[phone] Referring Provider: Nate Ordonez V, [address], [address] . tel:[phone] [facility], [address], [place], [place], [address], [place] tel:[phone] [facility] No Information 6 José Luis Sullivan. [address], [address], [place], [place], [address] , [place]. tel: [phone] Referring Provider: Nate Ordonez V, [address], [place], [address] . tel:[phone] [facility], [address], [place], [place], [address], [place] tel:[phone] [facility] No Information 6 José Luis Sullivan. [address], [address], [place], [place], [address] , [place]. tel: [phone] Referring Provider: Nate Ordonez V, [address], [place], [address] . tel:[phone] Offic/outpt E&m Estab Low-mod [facility], [address], [place], [place], [address], [place] tel:[phone] [facility] No Information 6 José Luis Sullivan. [address], [address], [place], [place], [address] , [place]. tel:[phone] Referring Provider: Nate Ordonez V, [address], [place], [address] . tel:[phone] Offic/outpt E&m Estab Low-mod [facility], [address], [place], [place], [address], [place] tel:[phone] [facility] No Information 6 José Luis Sullivan. [address], [address], [place], [place], [address] , [place]. tel: [phone] Referring Provider: Nate Ordonez V, [address], [place], [address] . tel:[phone] Offic/outpt E&m Estab Minor 10 [facility], [address], [place], [place], [address], [place] tel:[phone] [facility] No Information May-0 9-200 6 José Luis Sullivan. [address], [address], [place], [place], [address] , [place]. tel:[phone] Referring Provider: Nate Ordonez V, [address], [place], [address] . tel:[phone] [facility], [address], [place], [place], [address], [place] tel:[phone] [facility] No Information May-0 5-200 6 José Luis Sullivan. [address], [address], [place], [place], [address] , [place]. tel:[phone] Referring Provider: Nate Ordonez V, [address], [place], [address] . tel:[phone] [facility], [address], [place], [place], [address], [place] tel:[phone] [facility] No Information May-0 2-200 6 José Luis Sullivan. [address], [address], [place], [place], [address] , [place]. tel:[phone] Referring Provider: Nate Ordonez V, [address], [place], [address] . tel:[phone] [facility], [address], [place], [address], [place] tel:[phone] [facility] No Information Apr-2 8-200 6 Ordonez Nate. [address], [address], [place], [place], [id number] , [place]. tel:[phone] Referring Provider: Nate Ordonez V, [address], [place], [address] . tel:[phone] [facility], [address], [place], [address], [place] tel:[phone] [facility] No Information Aug- 5-200 6 José Luis Sullivan. [address], [address], [place], [place], [address] , [place]. tel:[phone] Referring Provider: Nate Ordonez V, [address], [place], [address] . tel:[phone] [facility], [address], [place], [place], [address], [place] tel:[phone] [facility] No Information 6 José Luis Sullivan. [address], [address], [place], [place], [address] , [place]. tel:[phone] Referring Provider: Nate Ordonez V, [address], [place], [address] . tel:[phone] [facility], [address], [place], [address], [place] tel:[phone] [facility] No Information 200 6 José Luis Sullivan. [address], [address], [place], [address] , [place]. tel:[phone] Referring Provider: Nate Ordonez V, [address], [place], [address] . tel:[phone] Offic Cons New/estab Mod-hi 60 [facility], [address], [place], [place], [address], [place] tel:[phone] [facility] No Information 8-200 6 José Luis Sullivan. [address], [facility] [address], [place], [place], [address] , [place]. tel:[phone] Referring Provider: Nicho Goldstein MD B, [address], [address]. tel:[phone] Family History Family Member Type Diagnosis Age At Onset Gen Fam Hx Problem (finding) Cancer Gen Fam Hx Problem (finding) Stroke Payers Payer name Insurance type Covered alliance party ID Authorstepha jevon(s) BCBS Of [facility] [id number] Social History Type Description Quantity Date Captured [...]
--- OUTSIDE RECORDS SUMMARY | 2024-08-31 09:20 | XMS_ITS | Referral Summary ---
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
--- OUTSIDE RECORDS SUMMARY | 2024-08-31 09:20 | XMS_ITS | Clinical Summary ---
Author Organization [facility] Address [address] [facility] [place] [address] Care Team Providers Care Prototype Sewer Name Role Phone Tommy King DO Primary Care Provider [phone] Source Comments [facility],non-owned Affiliates and Associated Physician Practices is amultiple site organization consisting of ambulatory clinics and hospital sitesin [place], [place], [place] and [place]. This disclosure is being madepursuant to the Care Everywhere program and may not contain all information available regarding this patient. Last updated 18.[facility] Allergies Active Allergy Reactions Criticality Noted Date Comments Meperidine Rash Medium 01/13/2018 Penicillins Anaphylaxis High 01/13/2018 Sulfamethoxazole W-Trimethoprim Other 05/05 Burned her mouth Medications * Be aware that medications may not be up to date on this document. Alwaysverify current medications with the patient. metoprolol succinate XL 24hr (TOPROL XL) 25 MG tablet Take 25 mg by mouth once daily 1 Active hydroCHLOROthiaz lyndsey (HYDRODIURIL) 12.5 MG Take 12.5 mg by mouth once daily 1 Active gabapentin (NEURONTIN) 300 MG capsule Take 300 mg by mouth 4 times daily 1 Active cyclobenzaprine (FLEXERIL) 5 MG tablet Take 5 mg by mouth 2 times daily 1 Active omeprazole (PRILOSEC) 40 MG capsule Take 40 mg by mouth once daily 1 Active solifenacin (VESICARE) 5 MG tablet TAKE 1 TABLET(5 MG) BY MOUTH DAILY 1 Active lovastatin (MEVACOR) 40 MG tablet Take 40 mg by mouth once daily 1 Active sertraline (ZOLOFT) 100 MG tablet Take 100 mg by mouth once daily 1 Active glycopyrrolate-f ormoterol (BEVESPI AEROSPHERE) 9-4.8 MCG/ACT inhaler INHALE 2 PUFFS BY MOUTH EVERY 12 HOURS 1 Active vitamin B-12 (CYANOCOBALAMIN) 500 MCG tablet Take 500 mcg by mouth once daily Active loratadine (CLARITIN) 10 MG tablet Take 10 mg by mouth once daily Active fluticasone propionate (FLONASE) 50 MCG/ACT nasal spray Craig 2 sprays into the nose once daily Active albuterol HFA (PROVENTIL; VENTOLIN; PROAIR) 108 (90 Base) MCG/ACT inhaler Inhale 2 puffs by mouth Active XTAMPZA ER 13.5 MG capsule Take 13.5 mg by mouth every 12 hours 1 Active RESTASIS 0.05 % ophthalmic suspension 1 drop 2 times daily BOTH EYES 1 Active NARCAN 4 MG/0.1ML nasal spray 0 Active potassium chloride ER (KLOR-CON) 10 MEQ tablet 10 mEq once daily 1 Active aspirin EC (ECOTRIN) 81 MG tablet Take 81 mg by mouth once daily Active Pseudoephedrine- DM-GG-APAP (ROBITUSSIN COLD/COUGH/FLU PO) Take 13.5 mg by mouth Active clotrimazole-bet amethasone (LOTRISONE) 1-0.05 % cream APPLY TOPICALLY TO THE AFFECTED AREA TWICE DAILY 1 Active potassium citrate (UROCIT K 10) 10 MEQ (1080 MG) tablet 2 Active doxycycline monohydrate 100 MG tablet TAKE 1 TABLET BY MOUTH DAILY FOR 10 DAYS 2 Active neomycin-polymyx in-dexameth (MAXITROL) ophthalmic suspension 2 Active Active Problems Problem Noted Date Diagnosed Date Chronic bilateral low back pain Immunizations Immunization Administration Dates Next Due iNFLUENZA VACCINE, RECOM-SHEPARD, QUADR. (FLUBLOCK QUADRIVALENT; 18Y+) (RIV4) 01/13/2018 Social History Tobacco Use Types Packs/Day Years Used Date Smoking Tobacco: Every Day Cigarettes Smokeless Tobacco: Never Tobacco Cessation:Ready to Q uit: Yes; Counseling Given: Yes Alcohol Use Standard Drinks/Week Comments Never 0 (1 standard drink = 0.6 oz pur e alcohol) Comments Unknown Sex and Gender Information Value Date Recorded Sex Assigned at Not on file Legal Sex Female 12:36 PM CDT Gender Identity Not on file Sexual Orientation Not on file Last Filed Vital Signs Vital Sign Reading Time Taken Comments Blood Pressure 126/40 08/05/2021 9:59 AM CDT Pulse 82 08/05/2021 9:59 AM CDT Temperature 36.8 C (98.3 F) 06/12/2021 10:53 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 Respiratory Rate 18 05/23/2021 12:51 PM ROLL WRAPPER Oxygen Saturation 91% 08/05/2021 9:59 AM CDT [...] this topic Medical Devices Implanted Type Area Rn Mental Health Device Identifier Shelf Expiration Date Model / Serial / Lot Lead Nrstm 60cm Penta 3mm Pdl 16 [facility] - [id number] Implanted:Qty: 1 on 05/23/2021 by Esau Rose MD at [facility] Back [employer] 10/19/2022 [id number] / [id number] / Slnt Dura Duraseal Pg Trilysine Amine 5 Implanted:Qty: 1 on 05/23/2021 by Esau Rose MD at [facility] Back [employer] Erendira [id number] / / [id number] Gntr Nrstm 1.95inx2.19in [employer] Elt - [id number] Implanted:Qty: 1 on 05/23/2021 by Esau Rose MD at [facility] Left: Back [employer] 03/26/2023 [id number] / [id number] / Insurance MEDICARE MEDICAID - [place] [employer] MANAGED MEDICARE ADV MEDICAID SPEND[place] - [place] SELF PAY NO INSURANCE Member Subscriber Plan / Payer (Ef fective for All Dates) Name:Melyssa Mccall Member ID:Not on file Relation to Subscriber:Not on file Name:MELYSSA MCCALL Subscriber ID:Not on file (Home) Address: [address] [place] [address] [place] [address] Payer ID:Not on file Group ID:Not on file Type:Self Pay Address: [facility] MANAGED MEDICARE [facility] MEDICARE MEDICAID - OUT OF STATE Care Teams Prototype Sewer Relationship Specialty Start Date End Date Tommy King DO PCP - General Internal Medicine 04/23/21
--- OUTSIDE RECORDS SUMMARY | 2024-08-31 09:20 | XMS_ITS | Encounter Summary ---
Author Organization [facility] Address [address] [place] [address] Care Team Providers Care Culinary Worker Name Role Phone Milena Dos Santos MD Primary Care Provider [phone] Tommy King DO Primary Care Provider [phone] [place] Pino MD Unavailable [phone] Yvan Jaime MD Unavailable [phone] None, Provider Primary Care Provider Unavaila ble Encounter Details Date Type Department Care Team (Latest Contact Info) Description 03/09/2018 Abstract [facility] Michael Mclean MD Social History Tobacco Use Types Packs/Day Years Used Date Smoking Tobacco: Smoker, Current Status Unknown Comments Unknown Sex and Gender Information Value Date Recorded Sex Assigned at Not on file Legal Sex Female 11:35 PM CDT Gender Identity Female 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 Sexual Orientation Straight 05/09/2021 3: 57 PM VEHICLE OPERATOR documented as of this encounter Plan of Treatment Not on file documented as of this encounter Visit Diagnoses Not on filedocumented in this encounter Care Teams Culinary Worker Relationship Specialty Start Date End Date Milena Dos Santos MD [address] [place] [address] PCP - General 06/03/16 04/03/19 Tommy King DO [address] [place] [address] PCP - General INTERNAL MEDICINE 04/04/19 03/27/22 None, [place], PCP - General UNKNOWN PHYSICIAN SPECIALTY 03/28/22 West Pino MD [address] [facility] [address] [place] [address] UROLOGY 05/03/19 Yvan Jaime MD [address] [place] [address] Surgeon NEUROLOGICAL SURGERY 05/03/19 documented as of this encounter
--- OUTSIDE RECORDS SUMMARY | 2024-08-31 09:20 | XMS_ITS | Clinical Summary ---
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
--- OUTSIDE RECORDS SUMMARY | 2024-08-31 09:31 | XMS_ITS | Continuity of Care Document ---
Author Organization [facility] Address [address] [facility] [address] [place] [address] Phone Care Team Providers Care Remote Mortgage Underwriter Name Role Phone Sherif Doyle MD Unavailable Unavailable Allergies, Adverse Reactions, Alerts Substance Reaction Status Criticality PENICILLIN G POTASSIUM Active No In formation MEPERIDINE HCL Active No Informatio n Medications Medication Instructions Dosage Effective Dates (start - stop) Status Comments METHADOSE 5 MGTABLET tk 2 ts qd - Acti ve Lidoderm 5 % (700 mg/patch) Adhesive Patch - Active Miacalcin 200 unit/Actuation Nasal [place] Aerosol 1 spray each nostril qd - [...] on Encounter [facility], [address], [id number], [place] tel:[phone] [facility] No Information 6 Vivek Gorman. [address] [place] [address], [id number] , [place]. tel:[phone] Offic/outpt E&m Estab Minor 10 [facility], [address] [address], [place], [place], [address], [place] tel:[phone] [facility] No Information 6 José Luis Sullivan. [address] [facility], [address], [id number] , [place]. tel:[phone] Referring Provider: Nate Ordonez V, [address], [address] . tel:[phone] [facility], [address], [place], [place], [address], [place] tel:[phone] [facility] No Information 6 José Luis Sullivan. [address], [address], [place], [place], [address] , [place]. tel: [phone] Referring Provider: Nate Ordonez V, [address], [place], [address] . tel:[phone] [facility], [address], [place], [place], [address], [place] tel:[phone] [facility] No Information 6 José Luis Sullivan. [address], [address], [place], [place], [address] , [place]. tel: [phone] Referring Provider: Naet Ordonez V, [address], [place], [address] . tel:[phone] Offic/outpt E&m Estab Low-mod [facility], [address], [place], [place], [address], [place] tel:[phone] [facility] No Information 6 José Luis Sullivan. [address], [address], [place], [place], [address] , [place]. tel:[phone] Referring Provider: Nate Ordonez V, [address], [place], [address] . tel:[phone] Offic/outpt E&m Estab Low-mod [facility], [address], [place], [place], [address], [place] tel:[phone] [facility] No Information 6 José Luis Sullivan. [address], [address], [place], [place], [address] , [place]. tel: [phone] Referring Provider: Nate Ordonez V, [address], [place], [address] . tel:[phone] Offic/outpt E&m Estab Minor 10 [facility], [address], [place], [place], [address], [place] tel:[phone] [facility] No Information May-0 9-200 6 José Luis Sullivan. [address], [address], [place], [place], [address] , [place]. tel:[phone] Referring Provider: Nate Ordonez V, [address], [place], [address] . tel:[phone] [facility], [address], [place], [place], [address], [place] tel:[phone] [facility] No Information May-0 5-200 6 José Luis Sullivan. [address], [address], [place], [place], [address] , [place]. tel:[phone] Referring Provider: Nate Ordonez V, [address], [place], [address] . tel:[phone] [facility], [address], [place], [place], [address], [place] tel:[phone] [facility] No Information May-0 2-200 6 José Luis Sullivan. [address], [address], [place], [place], [address] , [place]. tel:[phone] Referring Provider: Nate Ordonez V, [address], [place], [address] . tel:[phone] [facility], [address], [place], [place], [address], [place] tel:[phone] [facility] No Information Apr-2 8-200 6 Ordonez Ntae. [address], [address], [place], [place], [address] , [place]. tel:[phone] Referring Provider: Nate Ordonez V, [address], [place], [address] . tel:[phone] [facility], [address], [place], [place], [address], [place] tel:[phone] [facility] No Information Aug- 5-200 6 José Luis Sullivan. [address], [address], [place], [place], [address] , [place]. tel:[phone] Referring Provider: Nate Ordonez V, [address], [place], [address] . tel:[phone] [facility], [address], [place], [place], [address], [place] tel:[phone] [facility] No Information 6 José Luis Sullivan. [address], [address], [place], [place], [address] , [place]. tel:[phone] Referring Provider: Nate Ordonez V, [address], [place], [address] . tel:[phone] [facility], [address], [place], [address], [place] tel:[phone] [facility] No Information 200 6 José Luis Sullivan. [address], [address], [place], [place], [address] , [place]. tel:[phone] Referring Provider: Nate Ordonez V, [address], [place], [address] . tel:[phone] Offic Cons New/estab Mod-hi 60 [facility], [address], [place], [address], [place] tel:[phone] [facility] No Information 8-200 6 José Luis Sullivan. [address], [facility] [address], [place], [place], [address] , [place]. tel:[phone] Referring Provider: Nicho Goldstein MD B, [address] [place] [place], [address]. tel:[phone] Family History Family Member Type Diagnosis Age At Onset Gen Fam Hx Problem (finding) Cancer Gen Fam Hx Problem (finding) Stroke Payers Payer name Insurance type Covered constitution party ID Authorstepha jevon(s) BCBS Of [facility] [id number] Social History Type Description Quantity Date Captured [...]
[2024-08-31 09:34] LABS: Alveolar/Arterial O2 Gradient 33.6 mmHg; Base Excess ABG 7.6 mEq/l (+/-2.0); Fractional Inspired Oxygen 24 %; HCO3 ABG 34.3 mEq/l (22.0-26.0); Oxygen Content ABG 16.4 %vol (16.0-22.0); Oxygen Saturation ABG 93.4 % (95.0-100.0); Oxyhemoglobin 89.6 % THb (90.0-100.0); PCO2 ABG 57.5 mmHg (35.0-45.0); PO2 ABG 69.1 mmHg (80.0-100.0); PO2 FiO2 Ratio Arterial Blood 2.88 %; pH ABG 7.393 (7.350-7.450)
[2024-08-31 09:36] LABS: Device NASAL CANNULA; Site Drawn LEFT BRACHIAL
[2024-08-31 09:38] LABS: INR 0.9; Prothrombin Time 12.8 Seconds (11.1-14.7)
[2024-08-31 09:39] LABS: Partial Thromboplastin Time 25.4 Seconds (22.3-36.8)
[2024-08-31 10:14] LABS: D Dimer 0.86 ug/mL (<0.48)
[2024-08-31 10:14] LABS: Influenza A QL RT-PCR Negative (Negative); Influenza B QL RT-PCR Negative (Negative); RSV RNA, RT-PCR Negative (Negative); SARS-CoV-2 RNA PCR Negative (Negative)
[2024-08-31 10:27] LABS: Alanine Aminotransferase 19 U/L (6-35); Albumin Level 4.1 g/dL (3.5-5.1); Alkaline Phosphatase 104 U/L (38-126); Anion Gap 6 mmol/L (4-12); Aspartate Amino Transferase 30 U/L (14-36); Bilirubin,Total 0.7 mg/dL (0.2-1.3); Blood Urea Nitrogen 16 mg/dL (7-17); Calcium 9.2 mg/dL (8.4-10.2); Carbon Dioxide 36 mmol/L (22-30); Chloride 95 mmol/L (98-107); Estimated CRCL calculation 44 ml/min; Estimated Glomerular Filt Rate > 60; Glucose 99 mg/dL (65-110); Potassium 5.3 mmol/L (3.4-5.0); Sodium 137 mmol/L (137-145)
[2024-08-31 10:39] LABS: NT Pro B Type Natriuretic Pept 236 pg/mL (19.9-100); Troponin I < 0.012 ng/mL (0.000-0.034)
[2024-08-31] MEDS: SODIUM CHLORIDE 0.9% IV 1,000 ML 999 ML IV CONT (12:21)
[2024-08-31] MEDS: levoFLOXacin 500 MG/D5W 100 ML 500 MG/100 ML BAG 100 MG IVPB (12:21)
[2024-08-31 12:52] LABS: Lactic Acid Reflex 0.9 mmol/L (0.7-2.0)
--- NOTE | 2024-08-31 13:57 | PM.IMHP ---
H&P: HPI History of Present Illness Date/Time: 08/31/24 13:57 Chief Complaint: Hypoxia Narrative: 69 y/o F with PMH of COPD, iron deficiency anemia, RLS, chronic respiratory failure on supplemental O2 (1-2L NC), paroxysmal SVT, kidney stones, fibromyalgia, rheumatoid arthritis, IBS, GERD, interstitial lung disease, hypertension, hyperlipidemia and anxiety presents here with hypoxia. The patient presents here from her PCP's office (Giancarlo BANEGAS) For further evaluation hypoxia on 08/31/2024. She presented there for a well visit. At that time she was noted to be hypoxic - 83-91%. She arrived to the emergency department 77% on room air. Now 95% on 2L NC. She reports the hypoxia was precipitated by an ongoing cough and shortness of breath for the past month. She reports the cough has been nonproductive, occasionally with have some sputum. She endorses/denies fever, chills, body aches, chest pain, palpitations, dizziness, nausea, vomiting, or diarrhea. Of note, she was recently hospitalized from 08/02/2024 to 08/04/2024 for a COPD exacerbation. She was also treated for pneumonia at the end of July. Chest CTA on 08/02/2024 did not demonstrate pneumonia. Does have history of coughing/choking - had esophageal dilation in June and in early August. Reports initially things had improved and then the symptoms returned. Initial VS at presentation: 98? F, HR 74, R 16, 146/70, and 77% on RA. ED workup showed: No leukocytosis, no anemia, elevated D-dimer, potassium 5.3, creatinine 0.62 and GFR >60, BNP 236, initial troponin negative, viral PCR negative. CXR showed a persistent right upper lobe pneumonia, emphysema with biapical pleural parenchymal scarring, unchanged reticulonodular pattern in the lower lungs with multiple small calcified pulmonary nodules consistent with sequela of chronic infection, enlargement of the central pulmonary arteries consistent with pulmonary arterial hypertension. Chest CTA showed no PE, severe emphysema right upper lobe pneumonia, and bilateral nonobstructing nephrolithiasis. Review of Systems Review of Systems: All systems reviewed & are unremarkable except as noted in HPI and below PMFSH Past Medical History Medical History OSWALD (iron deficiency anemia) Osteopenia Liana esophagitis RLS (restless legs syndrome) Esophageal dilatation Chronic narcotic use On home O2 Chronic sinusitis Dysphagia Olecranon bursitis, left elbow PSVT (paroxysmal supraventricular tachycardia) Change in bowel habits Kidney stones Fibromyalgia Rheumatoid arthritis Arthritis Constipation IBS (irritable bowel syndrome) GERD (gastroesophageal reflux disease) Stomach ulcer Wears glasses Ventricular ectopics Lumbar radiculopathy Family history of colon cancer Adenomatous colon polyp Esophageal stricture Urge incontinence ILD (interstitial lung disease) Small amount of interstitial lung disease was seen on base of lungs on chest CT 03/25/2018 which was an abdomen and pelvis CT Essential hypertension Oxygen dependent 2L w/activity, 1 w/rest Collagen vascular disease Hyperlipidemia, unspecified Infectious colitis Mass in neck Thrush Anxiety 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, patient unsure of this diagnosis COPD (chronic obstructive pulmonary disease) Tobacco abuse Surgical History Surgical History History of partial hysterectomy Status post insertion of spinal cord stimulator History of bladder suspension procedure History of appendectomy History of lumbar surgery Spinal cord stimulator implanted 05/23/21 Family History Family History Mother Patient's mother is , Onset Age: 72 Sibling Carcinoma of colon Ovarian cancer Lung cancer Rectal cancer Family history of malignant neoplasm of breast in first degree relative Father Brain aneurysm Other Arthritis COPD (chronic obstructive pulmonary disease) Cerebrovascular accident High cholesterol Hypertension Lung disease Neuropathy Social History Social History Social History: caffeine-coffee/soda Smoking packs per day: 1 Smoking cigarettes per day: 20.0 Years smoked: 60 Smoking pack-years: 60.00 Smoking status: Current every day smoker Second hand tobacco smoke exposure: Yes Additional smoking assessment comments: Using Nicotine patches Alcohol intake: never Substance use: unknown Do You Feel Safe in your Home?: Yes Lack of Transportation: No Lack of Food: Never True Current Housing: I Have Housing Concerned About Future Housing: No Difficulty Paying Gas/Electric Bills: No Difficulty Paying for Meds: No Currently Unemployed: No Education: High School Diploma/GED Difficulty w/ Childcare or Family Care: No Living arrangements: alone Occupation/Education: retired Gender identity (if verbalized by the patient): Female Spiritual care concerns: No Meds Home Medications and Allergies Home Medications ?Medication ?Instructions ?Recorded ?Confirmed ?Type aspirin 81 mg tablet,delayed 81 mg PO DAILY 06/02/19 08/31/24 History release (Adult Aspirin Regimen) cyclobenzaprine 5 mg tablet 5 mg PO Q12H 01/05/20 08/31/24 History oxycodone myristate 13.5 mg 13.5 mg PO Q12H 11/19/21 08/31/24 History capsule sprinkle extend release 12hr(DON'T CRUSH) (Xtampza ER) solifenacin 10 mg tablet (Vesicare) 5 mg PO HS 02/04/23 08/31/24 History cholecalciferol (vitamin D3) 125 125 mcg PO DAILY 07/24/23 08/31/24 History mcg (5,000 unit) tablet (Vitamin D3) guaifenesin 600 mg tablet, 600 mg PO Q12H 07/24/23 08/31/24 History extended release 12 hr (Mucinex) loratadine 10 mg tablet 10 mg PO DAILY 07/24/23 08/31/24 History metoprolol succinate 25 mg See Rx Instructions .Route 10/28/23 08/31/24 Rx tablet,extended release 24 hr .COMPLEX #90 tabs albuterol sulfate 90 mcg/actuation See Rx Instructions .Route 03/15/24 08/31/24 History aerosol inhaler .COMPLEX PRN Shortness Of Breath Or Wheezing nicotine 21 mg/24 hr daily 1 patch transdermal DAILY 03/15/24 08/31/24 History transdermal patch omeprazole 40 mg capsule,delayed 40 mg PO DAILY #90 caps 06/02/24 08/31/24 Rx release albuterol sulfate 2.5 mg/3 mL 2.5 mg (3 mL) inhalation Q4-6H PRN 06/07/24 08/31/24 Rx (0.083 %) solution for nebulization shortness of breath or wheezing #180 mL paroxetine HCl 20 mg tablet See Rx Instructions .Route 06/17/24 08/31/24 Rx .COMPLEX #90 tabs tiotropium 2.5 mcg-olodaterol 2.5 See Rx Instructions .Route 06/20/24 08/31/24 Rx mcg/actuation mist for inhalation .COMPLEX #4 grams (Stiolto Respimat) fluticasone propionate 50 1 spray intranasal BID PRN nasal 07/11/24 08/31/24 Rx mcg/actuation nasal congestion #16 grams spray,suspension (Flonase Allergy Relief) lovastatin 40 mg tablet 40 mg PO HS 08/02/24 08/31/24 History ferrous sulfate 325 mg (65 mg See Rx Instructions .Route 08/05/24 08/31/24 Rx iron) tablet (FeroSul) .COMPLEX #30 tabs gabapentin 300 mg capsule 300 mg PO Q12H #180 caps 08/29/24 08/31/24 Rx Allergies Allergy/AdvReac Type Severity Reaction Status Date / Time Penicillins Allergy Severe Anaphylaxis Verified 08/31/24 16:19 meperidine Allergy Intermediate Itching Verified 08/31/24 16:19 sulfamethoxazole (From Allergy Intermediate Mouth Verified 08/31/24 16:19 Bactrim) burning/redness trimethoprim (From Bactrim) Allergy Intermediate Mouth Verified 08/31/24 16:19 burning/redness mirtazapine AdvReac Mild Headache Verified 08/31/24 16:19 Vital Signs Vital Signs - 24 hr 08/31/24 09:02 08/31/24 09:05 08/31/24 09:10 Temperature 98.0 F Pulse Rate 74 75 Respiratory Rate 16 Blood Pressure 146/70 H Pulse Oximetry 77 L 98 Oxygen Delivery Room Air Nasal Cannula Oxygen Flow Rate 2 08/31/24 09:10 08/31/24 09:12 08/31/24 09:29 Temperature Pulse Rate 73 Respiratory Rate 15 Blood Pressure Pulse Oximetry 97 97 Oxygen Delivery Nasal Cannula Nasal Cannula Oxygen Flow Rate 1 1 08/31/24 09:38 08/31/24 10:20 08/31/24 10:22 Temperature Pulse Rate 74 72 Respiratory Rate 21 H 13 Blood Pressure 105/50 L Pulse Oximetry 95 94 Oxygen Delivery Nasal Cannula Oxygen Flow Rate 2 08/31/24 11:52 08/31/24 12:39 08/31/24 13:45 Temperature Pulse Rate 71 71 77 Respiratory Rate 16 17 16 Blood Pressure 102/56 L 138/72 Pulse Oximetry 91 97 95 Oxygen Delivery Oxygen Flow Rate Exam Const: General: comfortable and no acute distress Other: , female, thin, elderly, nontoxic appearance HENMT: Face/Nose/Sinus: Normal nares present Mouth: Yes moist mucous membranes Eyes: General: appearance normal, both eyes and all related structures Sclera: sclerae normal Pupils: Equal, round and reactive pupils present EOM: EOMs intact bilaterally Resp: Other: decreased breath sounds throughout. no wheezing. faint crackles in the upper and lower lobe on the left. no increased WOB. Cardio: Rate: regular rate Rhythm: regular rhythm Other: S1-S2 present without murmur, rub, ectopy GI: Other: Abdomen soft, nondistended, nontender. Normoactive bowel sounds in all quadrants. Skin: General skin exam: normal color and no rashes or lesions noted Wounds: no wounds Neuro: Speech: normal speech Motor exam (neuro): 5/5 motor strength present throughout Sensory Exam: normal sensation Other: A&O x4 Extrem: General: normal to inspection Psych: Mental Status: mental status grossly normal Affect: normal affect Other: Good insight and judgment, pleasant H&P: Results Labs Labs: Short CBC 08/31/24 Range/Units 09:07 WBC 8.1 (4.5-10.0) K/mm3 Hgb 13.2 (12.0-15.0) g/dL Hct 42.7 (37.0-47.0) % Plt Count 221 (150-375) k/mm3 BMP 08/31/24 09:06 Sodium 137 Potassium 5.3 H Chloride 95 L Carbon Dioxide 36 H BUN 16 D Creatinine 0.62 L Glucose 99 Calcium 9.2 Cardiac Enzymes 08/31/24 Range/Units 09:06 Troponin I < 0.012 (0.000-0.034) ng/mL Liver Function 08/31/24 Range/Units 09:06 Total Bilirubin 0.7 (0.2-1.3) mg/dL AST 30 (14-36) U/L ALT 19 (6-35) U/L Alkaline Phosphatase 104 (38-126) U/L Albumin 4.1 (3.5-5.1) g/dL Assessment and Plan Assessment and plan (1) Right upper lobe pneumonia: Qualifiers: Pneumonia type: due to unspecified organism Qualified Code(s): J18.9 - Pneumonia, unspecified organism Code(s): J18.9 - Pneumonia, unspecified organism Status: Acute Assessment and Plan: - CXR: 1. Persistent right upper lobe pneumonia. 2. Emphysema with biapical pleural-parenchymal scarring. 3. Unchanged reticulonodular pattern in the lower lungs with multiple small calcified pulmonary nodules consistent with sequela of chronic infection. 4. Enlargement of the central pulmonary arteries consistent with pulmonary arterial hypertension. - chest CTA: 1. Persistent right upper lobe pneumonia. 2. Emphysema with biapical pleural-parenchymal scarring. 3. Unchanged reticulonodular pattern in the lower lungs with multiple small calcified pulmonary nodules consistent with sequela of chronic infection. 4. Enlargement of the central pulmonary arteries consistent with pulmonary arterial hypertension. - risk factors and complicating factors: COPD/ILD, recent antibiotic course at the end of July - started on CAP tx: Levaquin. Will add metronidazole due to high concern for aspiration, allergy to PCN. - check MRSA PCR and sputum culture - Viral PCR negative - history of coughing/choking requiring esophageal dilation x2 within the last 3 months. Speech evaluation ordered. - baseline O2 need: 1-2L, currently on 2L (2) Chronic respiratory failure with hypoxia: Code(s): J96.11 - Chronic respiratory failure with hypoxia Status: Acute Assessment and Plan: - continue supplemental O2 to maintain O2 saturation greater than 92%, wean to baseline 1-2 L - mild hypoxia with exertion, suspect this is secondary to pneumonia. Started on antibiotics. (3) COPD (chronic obstructive pulmonary disease): Qualifiers: COPD type: unspecified COPD Qualified Code(s): J44.9 - Chronic obstructive pulmonary disease, unspecified Code(s): J44.9 - Chronic obstructive pulmonary disease, unspecified Status: Acute Assessment and Plan: - DuoNebs kiel - no wheezing on exam, frequently gets thrush with steroid course. patient would like to avoid steroid course if possible, if necessary requesting IV as it as historically been more effective for her. will hold on steroid course at this time, if no clinical improvement with kiel nebs and abx patient is amendable to a course. - continue home meds (4) Essential hypertension: Code(s): I10 - Essential (primary) hypertension Status: Chronic Assessment and Plan: - chronic, currently 138/72 - continue home medications: Metoprolol - monitor Plan Diet: Heart healthy GI Prophylaxis: Not currently indicated DVT Prophylaxis: SCDs IV fluids: None Lines/Tubes: Peripheral IV Code Status: Full code Hospitalist MIPS Advance Care Plan I have confirmed that the patient's Advanced Care Plan is present, code status is documented, or surrogate decision maker is listed in patient medical record.: Yes Medication Reconciliation I have utilized all available resources to obtain, update and review the patients current medications (includes all prescriptions, OTC, herbals, cannabis, and nutritional supplements).: Yes
[2024-08-31 14:09] LABS: Erythrocyte Sedimentation Rate 28 mm/hr (0-20)
[2024-08-31] MEDS: levoFLOXacin 250 MG/D5W 50 ML 250 MG/50 ML BAG 50 MG IVPB (15:01)
[2024-08-31] MEDS: guaiFENesin 12 HR 600 MG TABCR PO ×2 (15:01→21:11)
[2024-08-31 15:42] LABS: MRSA (PCR) NOT DETECTED (NOT DETECTE)
--- NOTE | 2024-08-31 16:22 | ADMGEN ---
This patient, Melyssa Mccall, was admitted to [facility] Surg Room 302-01. Patient/family oriented to hospital policies and general routines including ID bracelet, bed and alarms, visiting hours, pain management, procedures, bathroom and other care routines, personal items, smoking policy, room service/diet, and visiting hours. Information on how to activate the Rapid Response Team has been discussed. Patient/Family are encouraged to report perceived risks to care and to ask questions if they do not understand what they are told or what they should do.
[2024-08-31] MEDS: SODIUM CHLORIDE 0.9% IV 1,000 ML 125 ML IV CONT (16:26)
[2024-08-31] MEDS: LOVASTATIN 20 MG TABLET 40 MG PO (21:09)
[2024-08-31] MEDS: CYCLOBENZAPRINE HCL 5 MG TABLET PO (21:10)
[2024-08-31] MEDS: PANTOPRAZOLE 40 MG TABLET PO (21:10)
[2024-08-31] MEDS: BENZONATATE 100 MG CAPSULE PO (21:10)
[2024-08-31] MEDS: GABAPENTIN 300 MG CAPSULE PO (21:11)
[2024-08-31] MEDS: SOLIFENACIN 5 MG TABLET PO (21:11)
[2024-08-31] MEDS: metroNIDAZOLE 500 MG/ISO 100ML 500 MG/100 ML BAG 100 MG IVPB (21:11)
[2024-08-31] MEDS: ACETAMINOPHEN 325 MG TABLET 650 MG PO (21:12)
[2024-08-31] MEDS: FLUTICASONE PROPIONATE 0.05% NA SPR 16 GM BTL (*BKC) 1 SPRAY NASAL (21:12)
[2024-08-31] MEDS: oxyCODONE HCL (*CRX) 10 MG TAB SR 12HR PO (21:35)
[2024-09-01] VITALS (17 sets, daily range): BP systolic 96–139; BP diastolic 45–72; PULSE 65–79; RESP 12–20; TEMP 36–36.9; O2SAT 97–99; BMI 13.9
[2024-09-01] MEDS: SODIUM CHLORIDE 0.9% IV 1,000 ML 125 ML IV CONT (01:39)
[2024-09-01] MEDS: IPRATROPIUM 0.5 MG/ALBUTEROL SULFATE 2.5 MG AMPUL.NEB 3 ML INHALATION ×4 (02:43→19:54)
[2024-09-01] MEDS: metroNIDAZOLE 500 MG/ISO 100ML 500 MG/100 ML BAG 100 MG IVPB ×3 (03:02→20:38)
[2024-09-01 06:25] LABS: Basophils Percent Auto 0.6 % (0.2-1.2); Eosinophils Absolute Auto 0.2 K/mm3 (0-0.3); Eosinophils Percent Auto 4.2 % (0-4.4); Hematocrit 35.6 % (37.0-47.0); Hemoglobin 10.5 g/dL (12.0-15.0); Immature Granulocyte Absolute 0.01 K/mm3 (0.00-0.031); Immature Granulocyte Percent A 0.3 % (0-0.5); Immature Platelet Fraction Pct 2.5 % (0.9-11.2); Lymphocytes Absolute Auto 0.95 K/mm3 (0.9-3.2); Lymphocytes Percent Auto 26.9 % (18.3-44.2); Mean Corpuscular HGB Conc 29.5 g/dl (32-36); Mean Corpuscular Hemoglobin 30.4 pg (26-34); Mean Corpuscular Volume 103.2 fl (80-100); Mean Platelet Volume 9.7 fl (7.4-10.4); Monocytes Absolute Auto 0.3 K/mm3 (0.1-0.6); Monocytes Percent Auto 9.3 % (2.6-8.5); Neutrophils Absolute Auto 2.1 K/mm3 (1.3-6.7); Neutrophils Percent Auto 58.7 % (45.5-73.1); Platelet Count Result 111 k/mm3 (150-375); Red Blood Count 3.45 M/mm3 (4.2-5.4); Red Cell Distribution Width 12.1 % (11.5-14.5); White Blood Count 3.5 K/mm3 (4.5-10.0)
[2024-09-01 06:35] LABS: Anion Gap 2 mmol/L (4-12); Blood Urea Nitrogen 10 mg/dL (7-17); Calcium 8.1 mg/dL (8.4-10.2); Carbon Dioxide 35 mmol/L (22-30); Chloride 103 mmol/L (98-107); Estimated CRCL calculation 45 ml/min; Estimated Glomerular Filt Rate > 60; Glucose 93 mg/dL (65-110); Potassium 4.8 mmol/L (3.4-5.0); Sodium 140 mmol/L (137-145)
--- NOTE | 2024-09-01 07:41 | P.PNIM_ITS ---
Progress Note: A&P Assessment and Plan (1) Chronic respiratory failure with hypoxia: Code(s): J96.11 - Chronic respiratory failure with hypoxia Status: Acute Assessment and Plan: - continue supplemental O2 to maintain O2 saturation greater than 90%, wean to baseline 1-2 L - mild hypoxia with exertion, suspect this is secondary to pneumonia. See plan below. (2) Right upper lobe pneumonia: Qualifiers: Pneumonia type: due to unspecified organism Qualified Code(s): J18.9 - Pneumonia, unspecified organism Code(s): J18.9 - Pneumonia, unspecified organism Status: Acute Assessment and Plan: - CXR: 1. Persistent right upper lobe pneumonia. 2. Emphysema with biapical pleural-parenchymal scarring. 3. Unchanged reticulonodular pattern in the lower lungs with multiple small calcified pulmonary nodules consistent with sequela of chronic infection. 4. Enlargement of the central pulmonary arteries consistent with pulmonary arterial hypertension. - chest CTA: No PE, severe emphysema with RUL pneumonia - risk factors and complicating factors: COPD/ILD, recent antibiotic course at the end of July - Baseline O2 1-2L, currently on 3L. Wean as tolerated. - started on CAP tx: Levaquin. Continue metronidazole due to high concern for aspiration, allergy to PCN. - MRSA PCR negative - sputum culture ordered - Viral PCR negative - History of coughing/choking requiring esophageal dilation since 2004 requiring q6mo, now q3mo. Most recent in August. Speech evaluation: level 6 soft/bite size adn level 1 liquids. Exercises given. MBS obtained, read pending (3) COPD (chronic obstructive pulmonary disease): Qualifiers: COPD type: unspecified COPD Qualified Code(s): J44.9 - Chronic obstructive pulmonary disease, unspecified Code(s): J44.9 - Chronic obstructive pulmonary disease, unspecified Status: Acute Assessment and Plan: - DuoNebs kiel - no wheezing on exam, frequently gets thrush with steroid course. patient would like to avoid steroid course if possible, if necessary requesting IV as it as historically been more effective for her. will hold on steroid course at this time, if no clinical improvement with kiel nebs and abx patient is amendable to a course. - continue home meds (4) Essential hypertension: Code(s): I10 - Essential (primary) hypertension Status: Chronic Assessment and Plan: Chronic, continue home medications - Metoprolol 25 mg daily - blood pressures remain stable, continue to monitor Time Spent With Patient Time with patient: 25 - 35 minutes Subjective Date/time seen: 09/01/24 07:41 Interval history: 69 year old female with past medical history of COPD, iron deficiency anemia, RLS, chronic respiratory failure on supplemental O2 (1-2L NC), paroxysmal SVT, kidney stones, fibromyalgia, rheumatoid arthritis, IBS, GERD, interstitial lung disease, hypertension, hyperlipidemia and anxiety presents to the hospital with hypoxia from her PCP office (Giancarlo BANEGAS). Patient is pleasant sitting up in her chair. She notes continued dyspnea with exertion her states that this is since admission. Continues to endorse a slight cough. She has no other complaints denying chest pain palpitations, nausea/vomiting, abdominal pain. Review of Systems Review of Systems: All systems reviewed & are unremarkable except as noted in HPI and below Exam Narrative: AF HR 68 RR 16 SpO2 99 3L (baseline 1-2L) BP 118/72 General: frail female in no acute respiratory distress who is nontoxic appearing, sitting up in chair HEENT: Normocephalic. Atraumatic. Extraocular movement intact. Sclera clear and anicteric. No facial asymmetry. Chest: Lungs are diminished to auscultation bilaterally with coarseness to right side. No wheezes or crackles. CV: Heart was regular rate and rhythm. Abd: Abdomen was soft. Nontender. Nondistended. Positive bowel sounds. No organomegaly or masses. Ext: No clubbing, cyanosis, or edema. DP pulses bilaterally. Neuro: Patient is alert. Speech is clear. Objective Data Vital Signs Vital Signs: Vital Signs - 24 hr 08/31/24 09:02 08/31/24 09:05 08/31/24 09:10 Temperature 98.0 F Pulse Rate 74 75 Respiratory Rate 16 Blood Pressure 146/70 H Pulse Oximetry 77 L 98 Oxygen Delivery Room Air Nasal Cannula Oxygen Flow Rate 2 08/31/24 09:10 08/31/24 09:12 08/31/24 09:29 Temperature Pulse Rate 73 Respiratory Rate 15 Blood Pressure Pulse Oximetry 97 97 Oxygen Delivery Nasal Cannula Nasal Cannula Oxygen Flow Rate 1 1 08/31/24 09:38 08/31/24 10:20 08/31/24 10:22 Temperature Pulse Rate 74 72 Respiratory Rate 21 H 13 Blood Pressure 105/50 L Pulse Oximetry 95 94 Oxygen Delivery Nasal Cannula Oxygen Flow Rate 2 08/31/24 11:52 08/31/24 12:39 08/31/24 13:45 Temperature Pulse Rate 71 71 77 Respiratory Rate 16 17 16 Blood Pressure 102/56 L 138/72 Pulse Oximetry 91 97 95 Oxygen Delivery Oxygen Flow Rate 08/31/24 14:59 08/31/24 15:04 08/31/24 15:08 Temperature Pulse Rate 72 72 70 Respiratory Rate 16 15 16 Blood Pressure 132/57 L Pulse Oximetry 100 Oxygen Delivery Oxygen Flow Rate 08/31/24 15:52 08/31/24 16:15 08/31/24 17:50 Temperature 97.0 F L Pulse Rate 68 70 Respiratory Rate 13 18 Blood Pressure 113/62 113/55 L Pulse Oximetry 97 98 98 Oxygen Delivery Nasal Cannula Oxygen Flow Rate 2 08/31/24 20:00 08/31/24 20:45 08/31/24 21:52 Temperature 97.8 F Pulse Rate 67 70 Respiratory Rate 20 16 Blood Pressure 120/54 L Pulse Oximetry 97 98 Oxygen Delivery Nasal Cannula Oxygen Flow Rate 2 08/31/24 21:55 09/01/24 02:46 09/01/24 02:55 Temperature Pulse Rate 70 67 73 Respiratory Rate 18 18 18 Blood Pressure Pulse Oximetry 98 Oxygen Delivery Nasal Cannula Oxygen Flow Rate 1 09/01/24 05:10 09/01/24 07:33 09/01/24 07:33 Temperature 96.8 F L Pulse Rate 65 73 Respiratory Rate 16 12 Blood Pressure 96/55 L Pulse Oximetry 99 99 Oxygen Delivery Nasal Cannula Oxygen Flow Rate 2 Intake/Output Intake/Output: Intake & Output 08/29/24 08/30/24 08/31/24 09/01/24 23:59 23:59 23:59 23:59 Intake Total 1840 1475 Balance 1840 1475 Meds/Results Medications: Active Medications Generic Name Dose Route Start Last Admin Trade Name Freq PRN Reason Stop Dose Admin Acetaminophen 650 mg 08/31/24 14:11 08/31/24 21:12 Acetaminophen 325 Mg Tablet PO 650 mg Q6H PRN Administration Mild Pain (1-3) or Fever Albuterol/Ipratropium 3 ml 08/31/24 14:00 09/01/24 07:32 Ipratropium 0.5 Mg/Albuterol Sulfate 2.5 Mg Ampul.Neb 3 Ml INHALATION 3 ml Q6HRT KIEL Administration Aspirin 81 mg 09/01/24 09:00 Aspirin 81 Mg Enteric Tablet PO DAILY [facility] Benzonatate 100 mg 08/31/24 14:11 08/31/24 21:10 Benzonatate 100 Mg Capsule PO 100 mg TID PRN Administration Cough Cyclobenzaprine HCl 5 mg 08/31/24 21:00 08/31/24 21:10 Cyclobenzaprine Hcl 5 Mg Tablet PO 5 mg Q12H KIEL Administration Ferrous Sulfate 325 mg 09/01/24 09:00 Ferrous Sulfate [address] PO DAILY [facility] Fluticasone Propionate 1 spray 08/31/24 19:07 08/31/24 21:12 Fluticasone Propionate 0.05% Na Spr 16 Gm Btl (*Bkc) NASAL 1 spray BID PRN Administration nasal congestion Gabapentin 300 mg 08/31/24 21:00 08/31/24 21:11 Gabapentin 300 Mg Capsule PO 300 mg Q12H KIEL Administration Guaifenesin 600 mg 08/31/24 21:00 08/31/24 21:11 Guaifenesin 12 Hr 600 Mg Tabcr PO 600 mg Q12HR KIEL Administration Levofloxacin/Dextrose 750 mg in 150 mls @ 100 mls/hr 09/02/24 12:00 Levaquin 750 Mg/D5w 150 Ml IVPB Q48H [facility] Sodium Chloride 1,000 mls @ 125 mls/hr 08/31/24 14:25 09/01/24 01:39 Normal Saline Iv IV CONT 125 mls/hr .Q8H KIEL Administration Metronidazole 500 mg in 100 mls @ 100 mls/hr 08/31/24 20:00 09/01/24 03:02 Flagyl 500 Mg/Iso Soln 100 Ml IVPB 100 mls/hr Q8H KIEL Administration Loratadine 10 mg 09/01/24 09:00 Loratadine 10 Mg Tablet PO DAILY [facility] Lovastatin 40 mg 08/31/24 21:00 08/31/24 21:09 Lovastatin 20 Mg Tablet PO 40 mg HS KIEL Administration Metoprolol Succinate 25 mg 09/01/24 09:00 Metoprolol Succinate Ext Rel 25 Mg Tabcr PO DAILY [facility] Nicotine 1 patch 08/31/24 19:20 08/31/24 21:24 Nicotine (*Pbkc) 21 Mg Patch TRANSDERM Not Given DAILY [facility] Oxycodone HCl 10 mg 08/31/24 21:00 08/31/24 21:35 Oxycodone Hcl (*Crx) 10 Mg Tab Sr 12hr PO 10 mg Q12HR KIEL Administration Pantoprazole Sodium 40 mg 08/31/24 19:20 08/31/24 21:10 Pantoprazole 40 Mg Tablet PO 40 mg BID KIEL Administration Paroxetine HCl 20 mg 09/01/24 09:00 Paroxetine 20 Mg Tablet PO DAILY [facility] Solifenacin 5 mg 08/31/24 21:00 08/31/24 21:11 Solifenacin 5 Mg Tablet PO 5 mg HS KIEL Administration Vitamin D 5,000 units 09/01/24 09:00 Cholecalciferol 5,000 Units Tablet PO DAILY [facility] Radiology Results: ITS Impressions Chest X-Ray 08/31/24 10:11 IMPRESSION: 1. Persistent right upper lobe pneumonia. 2. Emphysema with biapical pleural-parenchymal scarring. 3. Unchanged reticulonodular pattern in the lower lungs with multiple small calcified pulmonary nodules consistent with sequela of chronic infection. 4. Enlargement of the central pulmonary arteries consistent with pulmonary arterial hypertension. Chest CTA 08/31/24 11:15 IMPRESSION: 1. No pulmonary embolism. 2. Severe emphysema with right upper lobe pneumonia. 3. Bilateral nonobstructing nephrolithiasis. Labs Labs: Laboratory Results - last 24 hr 08/31/24 08/31/24 08/31/24 09:06 09:07 09:28 WBC 8.1 RBC 4.30 Hgb 13.2 Hct 42.7 MCV 99.3 MCH 30.7 MCHC 30.9 L RDW 12.3 Plt Count 221 MPV 9.7 Immature Gran % (Auto) 0.4 Neut % (Auto) 64.1 Lymph % (Auto) 22.2 [place] % (Auto) 9.8 H Eos % (Auto) 3.0 Baso % (Auto) 0.5 Lymph # (Auto) 1.79 [place] # (Auto) 0.8 H Eos # (Auto) 0.2 Baso # (Auto) 0.0 Abs Immat Gran (auto) 0.03 Absolute Neuts (auto) 5.2 Absolute Nucleated RBC 0.000 Nucleated RBC % 0.0 % Immature Plt Fraction ESR PT 12.8 INR 0.9 APTT 25.4 D-Dimer 0.86 H Puncture Site Left brachial ABG pH 7.393 ABG pCO2 57.5 H ABG pO2 69.1 L ABG PO2/FiO2 Ratio 2.88 ABG HCO3 34.3 H ABG O2 Saturation 93.4 L ABG O2 Content 16.4 ABG Base Excess 7.6 A-a Gradient 33.6 Oxyhemoglobin 89.6 L Total Hemoglobin 13.0 O2 Delivery Device Nasal cannula O2 Liters/Min 1.0 FiO2 24 Sodium 137 Potassium 5.3 H Chloride 95 L Carbon Dioxide 36 H Anion Gap 6 BUN 16 D Creatinine 0.62 L Estim Creat Clear Calc 44 Estimated GFR > 60 Glucose 99 Lactic Acid Calcium 9.2 Magnesium 2.0 Total Bilirubin 0.7 AST 30 ALT 19 Alkaline Phosphatase 104 Troponin I < 0.012 NT-Pro-B Natriuret Pep 236 H Total Protein 8.0 Albumin 4.1 Nasal MRSA (PCR) Influenza A (RT-PCR) Influenza B (RT-PCR) RSV (RT-PCR) SARS-CoV-2 RNA (RT-PCR) 08/31/24 08/31/24 08/31/24 09:33 12:37 14:28 WBC RBC Hgb Hct MCV MCH MCHC RDW Plt Count MPV Immature Gran % (Auto) Neut % (Auto) Lymph % (Auto) [place] % (Auto) Eos % (Auto) Baso % (Auto) Lymph # (Auto) [place] # (Auto) Eos # (Auto) Baso # (Auto) Abs Immat Gran (auto) Absolute Neuts (auto) Absolute Nucleated RBC Nucleated RBC % % Immature Plt Fraction ESR 28 H PT INR APTT D-Dimer Puncture Site ABG pH ABG pCO2 ABG pO2 ABG PO2/FiO2 Ratio ABG HCO3 ABG O2 Saturation ABG O2 Content ABG Base Excess A-a Gradient Oxyhemoglobin Total Hemoglobin O2 Delivery Device O2 Liters/Min FiO2 Sodium Potassium Chloride Carbon Dioxide Anion Gap BUN Creatinine Estim Creat Clear Calc Estimated GFR Glucose Lactic Acid 0.9 Calcium Magnesium Total Bilirubin AST ALT Alkaline Phosphatase Troponin I NT-Pro-B Natriuret Pep Total Protein Albumin Nasal MRSA (PCR) Not detected Influenza A (RT-PCR) Negative Influenza B (RT-PCR) Negative RSV (RT-PCR) Negative SARS-CoV-2 RNA (RT-PCR) Negative 09/01/24 05:46 WBC 3.5 L RBC 3.45 L Hgb 10.5 L Hct 35.6 L MCV 103.2 H MCH 30.4 MCHC 29.5 L RDW 12.1 Plt Count 111 L MPV 9.7 Immature Gran % (Auto) 0.3 Neut % (Auto) 58.7 Lymph % (Auto) 26.9 [place] % (Auto) 9.3 H Eos % (Auto) 4.2 Baso % (Auto) 0.6 Lymph # (Auto) 0.95 [place] # (Auto) 0.3 Eos # (Auto) 0.2 Baso # (Auto) 0.0 Abs Immat Gran (auto) 0.01 Absolute Neuts (auto) 2.1 Absolute Nucleated RBC 0.000 Nucleated RBC % 0.0 % Immature Plt Fraction 2.5 ESR PT INR APTT D-Dimer Puncture Site ABG pH ABG pCO2 ABG pO2 ABG PO2/FiO2 Ratio ABG HCO3 ABG O2 Saturation ABG O2 Content ABG Base Excess A-a Gradient Oxyhemoglobin Total Hemoglobin O2 Delivery Device O2 Liters/Min FiO2 Sodium 140 Potassium 4.8 Chloride 103 Carbon Dioxide 35 H Anion Gap 2 L BUN 10 D Creatinine 0.61 L Estim Creat Clear Calc 45 Estimated GFR > 60 Glucose 93 Lactic Acid Calcium 8.1 L Magnesium Total Bilirubin AST ALT Alkaline Phosphatase Troponin I NT-Pro-B Natriuret Pep Total Protein Albumin Nasal MRSA (PCR) Influenza A (RT-PCR) Influenza B (RT-PCR) RSV (RT-PCR) SARS-CoV-2 RNA (RT-PCR) Quality VTE Prophylaxis VTE prophylaxis: mechanical ordered
[2024-09-01] MEDS: ASPIRIN 81 MG ENTERIC TABLET PO (07:58)
[2024-09-01] MEDS: PARoxetine 20 MG TABLET PO (07:58)
[2024-09-01] MEDS: oxyCODONE HCL (*CRX) 10 MG TAB SR 12HR PO ×2 (07:58→20:37)
[2024-09-01] MEDS: LORATADINE 10 MG TABLET PO (07:58)
[2024-09-01] MEDS: CHOLECALCIFEROL 5,000 UNITS TABLET 5000 UNITS PO (07:58)
[2024-09-01] MEDS: FERROUS SULFATE 325 MG TABLET DR PO (07:58)
[2024-09-01] MEDS: METOPROLOL SUCCINATE EXT REL 25 MG TABCR PO (07:59)
[2024-09-01] MEDS: guaiFENesin 12 HR 600 MG TABCR PO ×2 (07:59→20:37)
[2024-09-01] MEDS: PANTOPRAZOLE 40 MG TABLET PO ×2 (07:59→16:54)
[2024-09-01] MEDS: GABAPENTIN 300 MG CAPSULE PO ×2 (07:59→20:38)
[2024-09-01] MEDS: BENZONATATE 100 MG CAPSULE PO ×3 (07:59→20:37)
[2024-09-01] MEDS: CYCLOBENZAPRINE HCL 5 MG TABLET PO ×2 (07:59→20:37)
--- NOTE | 2024-09-01 08:17 | PCSTNOTE ---
Please refer to the Bedside Swallow Evaluation in the EMR. Please note, silent aspiration cannot be ruled out at bedside. The above patient with a h/o dysphagia requiring multiple esophageal dilations as well as a current diagnosis of pneumonia, was seen for a bedside swallow evaluation. She I sat herself upright in the bed, was oriented x4, and able to describe her dysphagia in detail. She reports that the esophageal dilations sometimes only provide relief for a few days before she starts to have trouble again. She limits her food choices and has reportedly lost weight. Pt was seated upright in the bed. Cursory oral motor exam revealed labial and lingual structures to be WFL re strength and ROM. Vocal quality was clear. The patient did have a cough before any oral presentations were given. She was tested with pudding in controlled amounts via a spoon, a controlled-size bite of a cracker, then thin liquids in uncontrolled amounts via a cup and a straw. The oral stages appeared intact with no leakage, pocketing, or residue exhibited. During the pharyngeal stage, the timing of swallow appeared intact with adequate laryngeal elevation. However, the pt did complain of pudding and the cracker getting stuck in her throat. She stated that using a liquid wash doesn't always help, but she reached for the water to clear the sensation. A delayed cough was also noted, but was questionably related to any instances of aspiration. No further trials were given due to her complaints, history, and current coughing after trials. Impression: questionable degree of pharyngeal dysphagia; coughing questionably related to instances of aspiration. Recommendation: Given the pts history and current dx of dysphagia, an MBS is recommended to further assess her swallow ability, determine a safe diet, as well as an appropriate POC. Spoke RN re the results and recommendation for MBS then spoke with ANA Barreto re orders for MBS;
--- NOTE | 2024-09-01 13:45 | PCSTNOTE ---
Please refer to the Modified Barium Swallow Evaluation in the EMR. The patient was seated for a lateral view and presented with 5 ml of thin liquid barium via a spoon, a pudding consistency barium via a spoon, a cracker coated with barium pudding via a spoon, and an uncontrolled thin liquid barium bolus. This was presented via a straw & cup. Oral preparatory and oral phase symptoms: none. Pharyngeal phase symptoms: laryngeal penetration with pudding and the cracker, which required extra dry swallows as well as throat clearing to clear from the laryngeal vestibule. Esophageal stage symptoms: none. No aspiration occurred but pt could be at risk. Impressions: mild dysphagia due to the reduced laryngeal elevation, causing laryngeal penetration, which cleared without aspiration. Recommendation: pt chooses level 6, soft and bite size, due to having full upper and lower dentures; & level [address] will follow up with dysphagia therapy to teach laryngeal elevation and shaker exercise. Thank you for this referral
[2024-09-01] MEDS: FLUTICASONE PROPIONATE 0.05% NA SPR 16 GM BTL (*BKC) 1 SPRAY NASAL (16:54)
[2024-09-01] MEDS: SOLIFENACIN 5 MG TABLET PO (20:37)
[2024-09-01] MEDS: LOVASTATIN 20 MG TABLET 40 MG PO (20:38)
[2024-09-02] VITALS (14 sets, daily range): BP systolic 128–157; BP diastolic 55–74; PULSE 68–78; RESP 16–18; TEMP 36.1–36.6; O2SAT 92–99
[2024-09-02] MEDS: IPRATROPIUM 0.5 MG/ALBUTEROL SULFATE 2.5 MG AMPUL.NEB 3 ML INHALATION ×4 (01:51→19:58)
[2024-09-02] MEDS: metroNIDAZOLE 500 MG/ISO 100ML 500 MG/100 ML BAG 100 MG IVPB ×3 (04:24→21:27)
[2024-09-02] MEDS: ACETAMINOPHEN 325 MG TABLET 650 MG PO (05:03)
[2024-09-02] MEDS: BENZONATATE 100 MG CAPSULE PO ×2 (05:03→21:28)
--- NOTE | 2024-09-02 06:47 | P.CDI_ITS ---
CDI Query Clarification Request BMI: 13.9 Nutritional Diagnostic Statement: Please refer to the comprehensive nutrition assessment for further information. If you agree with diagnosis of Severe protein calorie malnutrition related to loss of appetite, swallowing difficulty as evidenced by intakes <75% needs >1 month; weight loss 11%/1 month; severe muscle wasting and fat loss. Please specify severity if known: * Mild * Moderate * Severe * Other/Unknown <Betsy Wisdom RN - Last Filed: 09/02/24 06:50> Clarified Diagnosis Clarified Diagnosis: severe protein calorie malnutrition <Lucy Watson PA-C - Last Filed: 09/02/24 15:24>
--- NOTE | 2024-09-02 08:12 | PM.IMPN ---
Progress Note: A&P Assessment and Plan (1) Chronic respiratory failure with hypoxia: Code(s): J96.11 - Chronic respiratory failure with hypoxia Status: Acute Assessment and Plan: - continue supplemental O2 to maintain O2 saturation greater than 90%, wean to baseline 1-2 L - mild hypoxia with exertion, suspect this is secondary to pneumonia. See plan below. Has returned to her baseline 1-2L NC. (2) Right upper lobe pneumonia: Qualifiers: Pneumonia type: due to unspecified organism Qualified Code(s): J18.9 - Pneumonia, unspecified organism Code(s): J18.9 - Pneumonia, unspecified organism Status: Acute Assessment and Plan: - CXR: 1. Persistent right upper lobe pneumonia. 2. Emphysema with biapical pleural-parenchymal scarring. 3. Unchanged reticulonodular pattern in the lower lungs with multiple small calcified pulmonary nodules consistent with sequela of chronic infection. 4. Enlargement of the central pulmonary arteries consistent with pulmonary arterial hypertension. - chest CTA: No PE, severe emphysema with RUL pneumonia - risk factors and complicating factors: COPD/ILD, recent antibiotic course at the end of July - Baseline O2 1-2L, currently on 2L. Wean as tolerated. - started on CAP tx: Levaquin. Continue metronidazole due to high concern for aspiration, allergy to PCN. - MRSA PCR negative - sputum culture ordered - Viral PCR negative - History of coughing/choking requiring esophageal dilation since 2004 requiring q6mo, now q3mo. Most recent in August. Speech evaluation: level 6 soft/bite size adn level 1 liquids. Exercises given. Speech to follow. MBS obtained and showed trace penetration without aspiration Shortness of breath improving. Weaned back to baseline 1-2L. (3) COPD (chronic obstructive pulmonary disease): Qualifiers: COPD type: unspecified COPD Qualified Code(s): J44.9 - Chronic obstructive pulmonary disease, unspecified Code(s): J44.9 - Chronic obstructive pulmonary disease, unspecified Status: Acute Assessment and Plan: - DuoNebs kiel - no wheezing on exam, frequently gets thrush with steroid course. patient would like to avoid steroid course if possible, if necessary requesting IV as it as historically been more effective for her. will hold on steroid course at this time, if no clinical improvement with kiel nebs and abx patient is amendable to a course. - continue home meds (4) Essential hypertension: Code(s): I10 - Essential (primary) hypertension Status: Chronic Assessment and Plan: Chronic, continue home medications - Metoprolol 25 mg daily - blood pressures remain stable, continue to monitor (5) Severe protein-calorie malnutrition: Code(s): E43 - Unspecified severe protein-calorie malnutrition Status: Acute Assessment and Plan: Supplement per nutrition recommendations Time Spent With Patient Time with patient: 25 - 35 minutes Subjective Date/time seen: 09/02/24 08:12 Interval history: 69 year old female with past medical history of COPD, iron deficiency anemia, RLS, chronic respiratory failure on supplemental O2 (1-2L NC), paroxysmal SVT, kidney stones, fibromyalgia, rheumatoid arthritis, IBS, GERD, interstitial lung disease, hypertension, hyperlipidemia and anxiety presents to the hospital with hypoxia from her PCP office (Giancarlo BANEGAS). Patient is pleasant sitting up comfortably in her bed. She states that the shortness of breath is improving and she was able to walk a longer duration (to the bathroom and back) before getting dyspneic. She states that she feels about 50% back to her baseline. She states that while eating she had a large coughing episode, feeling as though something got stuck. She states that she feels she needs another expansion to her esophagus. Will call NEVA Josue tomorrow to discuss as he is the specialist that has been performing this. She has no other complaints denies chest pain, palpitations, nausea/vomiting, abdominal pain, and dizziness/lightheadedness. Review of Systems Review of Systems: All systems reviewed & are unremarkable except as noted in HPI and below Exam Narrative: AF HR 78 RR 16 SpO2 95 BP 132/68 General: frail female in no acute respiratory distress who is nontoxic appearing, sitting up in bed. HEENT: Normocephalic. Atraumatic. Extraocular movement intact. Sclera clear and anicteric. No facial asymmetry. Chest: Lungs are diminished to auscultation bilaterally with coarseness to right side. No wheezes or crackles. CV: Heart was regular rate and rhythm. Abd: Abdomen was soft. Nontender. Nondistended. Positive bowel sounds. Ext: No clubbing, cyanosis, or edema. DP pulses bilaterally. Neuro: Patient is alert. Speech is clear. Objective Data Vital Signs Vital Signs: Vital Signs - 24 hr 09/01/24 12:33 09/01/24 13:37 09/01/24 13:43 Temperature 98.2 F Pulse Rate 73 69 65 Respiratory Rate 18 12 12 Blood Pressure 115/64 Pulse Oximetry 99 Oxygen Delivery Oxygen Flow Rate 09/01/24 14:00 09/01/24 19:54 09/01/24 19:58 Temperature 98.4 F Pulse Rate 68 79 79 Respiratory Rate 16 18 Blood Pressure 118/72 Pulse Oximetry 99 97 Oxygen Delivery Nasal Cannula Oxygen Flow Rate 2 09/01/24 20:00 09/01/24 20:04 09/01/24 20:35 Temperature 98.4 F Pulse Rate 73 78 Respiratory Rate 16 20 Blood Pressure 115/45 L Pulse Oximetry 97 97 Oxygen Delivery Nasal Cannula Oxygen Flow Rate 2 09/02/24 01:52 09/02/24 02:03 09/02/24 05:05 Temperature 97.2 F L Pulse Rate 75 71 75 Respiratory Rate 16 16 18 Blood Pressure 157/74 H Pulse Oximetry 92 Oxygen Delivery Oxygen Flow Rate Intake/Output Intake/Output: Intake & Output 08/30/24 08/31/24 09/01/24 09/02/24 23:59 23:59 23:59 23:59 Intake Total 1840 4075 450 Balance 1840 4075 450 Meds/Results Medications: Active Medications Generic Name Dose Route Start Last Admin Trade Name Freq PRN Reason Stop Dose Admin Acetaminophen 650 mg 08/31/24 14:11 09/02/24 05:03 Acetaminophen 325 Mg Tablet PO 650 mg Q6H PRN Administration Mild Pain (1-3) or Fever Albuterol/Ipratropium 3 ml 08/31/24 14:00 09/02/24 01:51 Ipratropium 0.5 Mg/Albuterol Sulfate 2.5 Mg Ampul.Neb 3 Ml INHALATION 3 ml Q6HRT KIEL Administration Aspirin 81 mg 09/01/24 09:00 09/01/24 07:58 Aspirin 81 Mg Enteric Tablet PO 81 mg DAILY KIEL Administration Benzonatate 100 mg 08/31/24 14:11 09/02/24 05:03 Benzonatate 100 Mg Capsule PO 100 mg TID PRN Administration Cough Cyclobenzaprine HCl 5 mg 08/31/24 21:00 09/01/24 20:37 Cyclobenzaprine Hcl 5 Mg Tablet PO 5 mg Q12H KIEL Administration Ferrous Sulfate 325 mg 09/01/24 09:00 09/01/24 07:58 Ferrous Sulfate [address] PO 325 mg DAILY KIEL Administration Fluticasone Propionate 1 spray 08/31/24 19:07 09/01/24 16:54 Fluticasone Propionate 0.05% Na Spr 16 Gm Btl (*Bkc) NASAL 1 spray BID PRN Administration nasal congestion Gabapentin 300 mg 08/31/24 21:00 09/01/24 20:38 Gabapentin 300 Mg Capsule PO 300 mg Q12H KIEL Administration Guaifenesin 600 mg 08/31/24 21:00 09/01/24 20:37 Guaifenesin 12 Hr 600 Mg Tabcr PO 600 mg Q12HR KIEL Administration Levofloxacin/Dextrose 750 mg in 150 mls @ 100 mls/hr 09/02/24 12:00 Levaquin 750 Mg/D5w 150 Ml IVPB Q48H KIEL Metronidazole 500 mg in 100 mls @ 100 mls/hr 08/31/24 20:00 09/02/24 05:24 Flagyl 500 Mg/Iso Soln 100 Ml IVPB Infused Q8H KIEL Infusion Loratadine 10 mg 09/01/24 09:00 09/01/24 07:58 Loratadine 10 Mg Tablet PO 10 mg DAILY KIEL Administration Lovastatin 40 mg 08/31/24 21:00 09/01/24 20:38 Lovastatin 20 Mg Tablet PO 40 mg HS KIEL Administration Metoprolol Succinate 25 mg 09/01/24 09:00 09/01/24 07:59 Metoprolol Succinate Ext Rel 25 Mg Tabcr PO 25 mg DAILY KIEL Administration Nicotine 1 patch 08/31/24 19:20 09/01/24 07:59 Nicotine (*Pbkc) 21 Mg Patch TRANSDERM Not Given DAILY KIEL Oxycodone HCl 10 mg 08/31/24 21:00 09/01/24 20:37 Oxycodone Hcl (*Crx) 10 Mg Tab Sr 12hr PO 10 mg Q12HR KIEL Administration Pantoprazole Sodium 40 mg 08/31/24 19:20 09/01/24 16:54 Pantoprazole 40 Mg Tablet PO 40 mg BID KIEL Administration Paroxetine HCl 20 mg 09/01/24 09:00 09/01/24 07:58 Paroxetine 20 Mg Tablet PO 20 mg DAILY KIEL Administration Solifenacin 5 mg 08/31/24 21:00 09/01/24 20:37 Solifenacin 5 Mg Tablet PO 5 mg HS KIEL Administration Vitamin D 5,000 units 09/01/24 09:00 09/01/24 07:58 Cholecalciferol 5,000 Units Tablet PO 5,000 units DAILY KIEL Administration Radiology Results: ITS Impressions Chest X-Ray 08/31/24 10:11 IMPRESSION: 1. Persistent right upper lobe pneumonia. 2. Emphysema with biapical pleural-parenchymal scarring. 3. Unchanged reticulonodular pattern in the lower lungs with multiple small calcified pulmonary nodules consistent with sequela of chronic infection. 4. Enlargement of the central pulmonary arteries consistent with pulmonary arterial hypertension. Chest CTA 08/31/24 11:15 IMPRESSION: 1. No pulmonary embolism. 2. Severe emphysema with right upper lobe pneumonia. 3. Bilateral nonobstructing nephrolithiasis. Modified Barium Swallow 09/01/24 16:33 IMPRESSION: 1: Trace penetration without aspiration. 2: Please refer to speech pathologist report for additional detail. Quality VTE Prophylaxis VTE prophylaxis: mechanical ordered
[2024-09-02 08:46] LABS: Alanine Aminotransferase 17 U/L (6-35); Albumin Level 3.2 g/dL (3.5-5.1); Alkaline Phosphatase 85 U/L (38-126); Anion Gap 4 mmol/L (4-12); Aspartate Amino Transferase 27 U/L (14-36); Bilirubin,Total 0.3 mg/dL (0.2-1.3); Blood Urea Nitrogen 13 mg/dL (7-17); Calcium 8.9 mg/dL (8.4-10.2); Carbon Dioxide 38 mmol/L (22-30); Chloride 98 mmol/L (98-107); Estimated CRCL calculation 48 ml/min; Estimated Glomerular Filt Rate > 60; Glucose 101 mg/dL (65-110); Potassium 3.8 mmol/L (3.4-5.0); Sodium 140 mmol/L (137-145)
[2024-09-02 08:47] LABS: Hematocrit 34.9 % (37.0-47.0); Hemoglobin 10.8 g/dL (12.0-15.0); Mean Corpuscular HGB Conc 30.9 g/dl (32-36); Mean Corpuscular Hemoglobin 30.5 pg (26-34); Mean Corpuscular Volume 98.6 fl (80-100); Mean Platelet Volume 9.7 fl (7.4-10.4); Platelet Count Result 123 k/mm3 (150-375); Red Blood Count 3.54 M/mm3 (4.2-5.4); White Blood Count 4.9 K/mm3 (4.5-10.0)
[2024-09-02] MEDS: PARoxetine 20 MG TABLET PO (09:18)
[2024-09-02] MEDS: CHOLECALCIFEROL 5,000 UNITS TABLET 5000 UNITS PO (09:18)
[2024-09-02] MEDS: guaiFENesin 12 HR 600 MG TABCR PO ×2 (09:18→21:28)
[2024-09-02] MEDS: GABAPENTIN 300 MG CAPSULE PO ×2 (09:18→21:27)
[2024-09-02] MEDS: METOPROLOL SUCCINATE EXT REL 25 MG TABCR PO (09:18)
[2024-09-02] MEDS: oxyCODONE HCL (*CRX) 10 MG TAB SR 12HR PO ×2 (09:18→21:28)
[2024-09-02] MEDS: ASPIRIN 81 MG ENTERIC TABLET PO (09:18)
[2024-09-02] MEDS: PANTOPRAZOLE 40 MG TABLET PO ×2 (09:18→17:05)
[2024-09-02] MEDS: LORATADINE 10 MG TABLET PO (09:18)
[2024-09-02] MEDS: CYCLOBENZAPRINE HCL 5 MG TABLET PO ×2 (09:18→21:27)
[2024-09-02] MEDS: FERROUS SULFATE 325 MG TABLET DR PO (09:18)
[2024-09-02] MEDS: levoFLOXacin 750 MG/D5W 150 ML 750 MG/150 ML BAG 100 MG IVPB (13:12)
[2024-09-02] MEDS: LOVASTATIN 20 MG TABLET 40 MG PO (21:28)
[2024-09-02] MEDS: SOLIFENACIN 5 MG TABLET PO (21:28)
[2024-09-03] VITALS (14 sets, daily range): BP systolic 107–111; BP diastolic 54–60; PULSE 67–75; RESP 16–20; TEMP 36.5–36.8; O2SAT 92–100
[2024-09-03] MEDS: IPRATROPIUM 0.5 MG/ALBUTEROL SULFATE 2.5 MG AMPUL.NEB 3 ML INHALATION ×4 (02:10→20:10)
[2024-09-03] MEDS: metroNIDAZOLE 500 MG/ISO 100ML 500 MG/100 ML BAG 100 MG IVPB ×3 (04:41→20:35)
[2024-09-03 05:58] LABS: Hematocrit 35.7 % (37.0-47.0); Mean Corpuscular HGB Conc 30.8 g/dl (32-36); Mean Corpuscular Volume 100.6 fl (80-100); Platelet Count Result 133 k/mm3 (150-375); Red Blood Count 3.55 M/mm3 (4.2-5.4); Red Cell Distribution Width 12.1 % (11.5-14.5); White Blood Count 4.6 K/mm3 (4.5-10.0)
[2024-09-03 06:18] LABS: Alanine Aminotransferase 15 U/L (6-35); Albumin Level 3.3 g/dL (3.5-5.1); Alkaline Phosphatase 72 U/L (38-126); Anion Gap 5 mmol/L (4-12); Aspartate Amino Transferase 33 U/L (14-36); Bilirubin,Total 0.4 mg/dL (0.2-1.3); Blood Urea Nitrogen 15 mg/dL (7-17); Calcium 8.7 mg/dL (8.4-10.2); Carbon Dioxide 38 mmol/L (22-30); Chloride 96 mmol/L (98-107); Estimated CRCL calculation 45 ml/min; Estimated Glomerular Filt Rate > 60; Glucose 88 mg/dL (65-110); Potassium 4.1 mmol/L (3.4-5.0); Sodium 139 mmol/L (137-145)
--- NOTE | 2024-09-03 08:14 | PM.IMPN ---
Progress Note: A&P Assessment and Plan (1) Chronic respiratory failure with hypoxia: Code(s): J96.11 - Chronic respiratory failure with hypoxia Status: Acute Assessment and Plan: - continue supplemental O2 to maintain O2 saturation greater than 90%, wean to baseline 1-2 L - mild hypoxia with exertion, suspect this is secondary to pneumonia. See plan below. Has returned to her baseline 1-2L NC. (2) Right upper lobe pneumonia: Qualifiers: Pneumonia type: due to unspecified organism Qualified Code(s): J18.9 - Pneumonia, unspecified organism Code(s): J18.9 - Pneumonia, unspecified organism Status: Acute Assessment and Plan: - CXR: 1. Persistent right upper lobe pneumonia. 2. Emphysema with biapical pleural-parenchymal scarring. 3. Unchanged reticulonodular pattern in the lower lungs with multiple small calcified pulmonary nodules consistent with sequela of chronic infection. 4. Enlargement of the central pulmonary arteries consistent with pulmonary arterial hypertension. - chest CTA: No PE, severe emphysema with RUL pneumonia - risk factors and complicating factors: COPD/ILD, recent antibiotic course at the end of July - Baseline O2 1-2L, currently on 2L. Wean as tolerated. - started on CAP tx: Levaquin. Continue metronidazole due to high concern for aspiration, allergy to PCN. - MRSA PCR negative - sputum culture ordered - Viral PCR negative - History of coughing/choking requiring esophageal dilation since 2004 requiring q6mo, now q3mo. Most recent in August. Speech evaluation: level 6 soft/bite size adn level 1 liquids. Exercises given. Speech to follow. MBS obtained and showed trace penetration without aspiration Discussed with Dr. Josue and plan for outpatient esophageal dilation Shortness of breath improving. Continues to endorse dyspnea on exertion. Weaned back to baseline 1-2L. (3) COPD (chronic obstructive pulmonary disease): Qualifiers: COPD type: unspecified COPD Qualified Code(s): J44.9 - Chronic obstructive pulmonary disease, unspecified Code(s): J44.9 - Chronic obstructive pulmonary disease, unspecified Status: Acute Assessment and Plan: - DuoNebs kiel - no wheezing on exam, frequently gets thrush with steroid course. patient would like to avoid steroid course if possible, if necessary requesting IV as it as historically been more effective for her. will hold on steroid course at this time, if no clinical improvement with kiel nebs and abx patient is amendable to a course. - continue home meds (4) Essential hypertension: Code(s): I10 - Essential (primary) hypertension Status: Chronic Assessment and Plan: Chronic, continue home medications - Metoprolol 25 mg daily - blood pressures reviewed and remain stable, continue to monitor (5) Severe protein-calorie malnutrition: Code(s): E43 - Unspecified severe protein-calorie malnutrition Status: Acute Assessment and Plan: Supplement per nutrition recommendations Time Spent With Patient Time with patient: 25 - 35 minutes Subjective Date/time seen: 09/03/24 08:14 Interval history: 69 year old female with past medical history of COPD, iron deficiency anemia, RLS, chronic respiratory failure on supplemental O2 (1-2L NC), paroxysmal SVT, kidney stones, fibromyalgia, rheumatoid arthritis, IBS, GERD, interstitial lung disease, hypertension, hyperlipidemia and anxiety presents to the hospital with hypoxia from her PCP office (Giancarlo BANEGAS). Patient is pleasant sitting up in her bed. She has been ambulating throughout the room without dizziness/lightheadedness. She continues to endorse shortness of breath with ambulation. She has no other complaints denying chest pain, palpitations, nausea/vomiting and abdominal pain. Discussed patient with GI Dr. Josue who plans to perform another esophageal dilation in the outpatient setting as per patient request. She continues to have a cough but notes that this has improved. Review of Systems Review of Systems: All systems reviewed & are unremarkable except as noted in HPI and below Exam Narrative: AF HR 74 RR 20 SpO2 93 2L NC (baseline) BP 107/60 General: frail female in no acute respiratory distress who is nontoxic appearing, sitting up in bed. HEENT: Normocephalic. Atraumatic. Extraocular movement intact. Sclera clear and anicteric. No facial asymmetry. Chest: Lungs are diminished to auscultation bilaterally. No wheezes or crackles. CV: Heart was regular rate and rhythm. Abd: Abdomen was soft. Nontender. Nondistended. Positive bowel sounds. Ext: No clubbing, cyanosis, or edema. DP pulses bilaterally. Neuro: Patient is alert. Speech is clear. Objective Data Vital Signs Vital Signs: Vital Signs - 24 hr 09/02/24 08:45 09/02/24 08:45 09/02/24 08:55 Temperature Pulse Rate 68 70 Respiratory Rate 16 16 Blood Pressure Pulse Oximetry 94 Oxygen Delivery Nasal Cannula Oxygen Flow Rate 2 Fraction of Inspired Oxygen 09/02/24 09:18 09/02/24 09:37 09/02/24 14:00 Temperature 96.9 F L Pulse Rate 75 78 Respiratory Rate 16 Blood Pressure 132/68 Pulse Oximetry 92 95 Oxygen Delivery Nasal Cannula Oxygen Flow Rate 2 Fraction of Inspired Oxygen 09/02/24 15:10 09/02/24 15:18 09/02/24 19:40 Temperature 97.8 F Pulse Rate 73 70 72 Respiratory Rate 16 16 16 Blood Pressure 128/55 L Pulse Oximetry 99 Oxygen Delivery Oxygen Flow Rate Fraction of Inspired Oxygen 09/02/24 19:58 09/02/24 20:00 09/02/24 20:00 Temperature Pulse Rate 78 78 74 Respiratory Rate 16 16 Blood Pressure Pulse Oximetry 94 94 Oxygen Delivery Nasal Cannula Nasal Cannula Oxygen Flow Rate 2 2 Fraction of Inspired Oxygen 09/02/24 20:07 09/03/24 02:10 09/03/24 02:20 Temperature Pulse Rate 74 67 69 Respiratory Rate 16 16 16 Blood Pressure Pulse Oximetry Oxygen Delivery Oxygen Flow Rate Fraction of Inspired Oxygen 09/03/24 05:00 09/03/24 07:54 09/03/24 07:54 Temperature 97.7 F Pulse Rate 67 70 Respiratory Rate 18 16 Blood Pressure 111/54 L Pulse Oximetry 94 92 Oxygen Delivery Nasal Cannula Oxygen Flow Rate 1 Fraction of Inspired Oxygen 09/03/24 08:04 Temperature Pulse Rate 72 Respiratory Rate 16 Blood Pressure Pulse Oximetry Oxygen Delivery Oxygen Flow Rate Fraction of Inspired Oxygen Intake/Output Intake/Output: Intake & Output 08/31/24 09/01/24 09/02/24 09/03/24 23:59 23:59 23:59 23:59 Intake Total 1840 4075 2013 400 Balance 1840 4075 2013 400 Meds/Results Medications: Active Medications Generic Name Dose Route Start Last Admin Trade Name Freq PRN Reason Stop Dose Admin Acetaminophen 650 mg 08/31/24 14:11 09/02/24 05:03 Acetaminophen 325 Mg Tablet PO 650 mg Q6H PRN Administration Mild Pain (1-3) or Fever Albuterol/Ipratropium 3 ml 08/31/24 14:00 09/03/24 07:54 Ipratropium 0.5 Mg/Albuterol Sulfate 2.5 Mg Ampul.Neb 3 Ml INHALATION 3 ml Q6HRT KIEL Administration Aspirin 81 mg 09/01/24 09:00 09/02/24 09:18 Aspirin 81 Mg Enteric Tablet PO 81 mg DAILY KIEL Administration Benzonatate 100 mg 08/31/24 14:11 09/02/24 21:28 Benzonatate 100 Mg Capsule PO 100 mg TID PRN Administration Cough Cyclobenzaprine HCl 5 mg 08/31/24 21:00 09/02/24 21:27 Cyclobenzaprine Hcl 5 Mg Tablet PO 5 mg Q12H KIEL Administration Ferrous Sulfate 325 mg 09/01/24 09:00 09/02/24 09:18 Ferrous Sulfate [address] PO 325 mg DAILY KIEL Administration Fluticasone Propionate 1 spray 08/31/24 19:07 09/01/24 16:54 Fluticasone Propionate 0.05% Na Spr 16 Gm Btl (*Bkc) NASAL 1 spray BID PRN Administration nasal congestion Gabapentin 300 mg 08/31/24 21:00 09/02/24 21:27 Gabapentin 300 Mg Capsule PO 300 mg Q12H KIEL Administration Guaifenesin 600 mg 08/31/24 21:00 09/02/24 21:28 Guaifenesin 12 Hr 600 Mg Tabcr PO 600 mg Q12HR KIEL Administration Levofloxacin/Dextrose 750 mg in 150 mls @ 100 mls/hr 09/02/24 12:00 09/02/24 14:47 Levaquin 750 Mg/D5w 150 Ml IVPB Infused Q48H KIEL Infusion Metronidazole 500 mg in 100 mls @ 100 mls/hr 08/31/24 20:00 09/03/24 05:41 Flagyl 500 Mg/Iso Soln 100 Ml IVPB Infused Q8H KIEL Infusion Loratadine 10 mg 09/01/24 09:00 09/02/24 09:18 Loratadine 10 Mg Tablet PO 10 mg DAILY KIEL Administration Lovastatin 40 mg 08/31/24 21:00 09/02/24 21:28 Lovastatin 20 Mg Tablet PO 40 mg HS KIEL Administration Metoprolol Succinate 25 mg 09/01/24 09:00 09/02/24 09:18 Metoprolol Succinate Ext Rel 25 Mg Tabcr PO 25 mg DAILY KIEL Administration Nicotine 1 patch 08/31/24 19:20 09/02/24 09:18 Nicotine (*Pbkc) 21 Mg Patch TRANSDERM Not Given DAILY KIEL Oxycodone HCl 10 mg 08/31/24 21:00 09/02/24 21:28 Oxycodone Hcl (*Crx) 10 Mg Tab Sr 12hr PO 10 mg Q12HR KIEL Administration Pantoprazole Sodium 40 mg 08/31/24 19:20 09/02/24 17:05 Pantoprazole 40 Mg Tablet PO 40 mg BID KIEL Administration Paroxetine HCl 20 mg 09/01/24 09:00 09/02/24 09:18 Paroxetine 20 Mg Tablet PO 20 mg DAILY KIEL Administration Solifenacin 5 mg 08/31/24 21:00 09/02/24 21:28 Solifenacin 5 Mg Tablet PO 5 mg HS KIEL Administration Vitamin D 5,000 units 09/01/24 09:00 09/02/24 09:18 Cholecalciferol 5,000 Units Tablet PO 5,000 units DAILY KIEL Administration Radiology Results: ITS Impressions Chest X-Ray 08/31/24 10:11 IMPRESSION: 1. Persistent right upper lobe pneumonia. 2. Emphysema with biapical pleural-parenchymal scarring. 3. Unchanged reticulonodular pattern in the lower lungs with multiple small calcified pulmonary nodules consistent with sequela of chronic infection. 4. Enlargement of the central pulmonary arteries consistent with pulmonary arterial hypertension. Chest CTA 08/31/24 11:15 IMPRESSION: 1. No pulmonary embolism. 2. Severe emphysema with right upper lobe pneumonia. 3. Bilateral nonobstructing nephrolithiasis. Modified Barium Swallow 09/01/24 16:33 IMPRESSION: 1: Trace penetration without aspiration. 2: Please refer to speech pathologist report for additional detail. Labs Labs: Laboratory Results - last 24 hr 09/02/24 09/03/24 08:25 05:22 WBC 4.9 4.6 RBC 3.54 L 3.55 L Hgb 10.8 L 11.0 L Hct 34.9 L 35.7 L MCV 98.6 100.6 H MCH 30.5 31.0 MCHC 30.9 L 30.8 L RDW 12.0 12.1 Plt Count 123 L 133 L MPV 9.7 10.0 % Immature Plt Fraction 3.0 Sodium 140 139 Potassium 3.8 4.1 Chloride 98 96 L Carbon Dioxide 38 H 38 H Anion Gap 4 5 BUN 13 15 Creatinine 0.56 L 0.60 L Estim Creat Clear Calc 48 45 Estimated GFR > 60 > 60 Glucose 101 88 Calcium 8.9 8.7 Total Bilirubin 0.3 0.4 AST 27 33 ALT 17 15 Alkaline Phosphatase 85 72 Total Protein 6.0 L 6.0 L Albumin 3.2 L 3.3 L Quality VTE Prophylaxis VTE prophylaxis: mechanical ordered
[2024-09-03] MEDS: LORATADINE 10 MG TABLET PO (09:01)
[2024-09-03] MEDS: CHOLECALCIFEROL 5,000 UNITS TABLET 5000 UNITS PO (09:01)
[2024-09-03] MEDS: PANTOPRAZOLE 40 MG TABLET PO ×2 (09:01→17:56)
[2024-09-03] MEDS: METOPROLOL SUCCINATE EXT REL 25 MG TABCR PO (09:01)
[2024-09-03] MEDS: GABAPENTIN 300 MG CAPSULE PO ×2 (09:01→20:36)
[2024-09-03] MEDS: guaiFENesin 12 HR 600 MG TABCR PO ×2 (09:02→20:36)
[2024-09-03] MEDS: PARoxetine 20 MG TABLET PO (09:02)
[2024-09-03] MEDS: FERROUS SULFATE 325 MG TABLET DR PO (09:02)
[2024-09-03] MEDS: ASPIRIN 81 MG ENTERIC TABLET PO (09:02)
[2024-09-03] MEDS: CYCLOBENZAPRINE HCL 5 MG TABLET PO ×2 (09:02→20:36)
[2024-09-03] MEDS: oxyCODONE HCL (*CRX) 10 MG TAB SR 12HR PO ×2 (09:02→20:36)
--- NOTE | 2024-09-03 10:59 | PCPTNOTE ---
Pt demonstrates independent ambulation in room 30 ft x 2 with supplemental O2. Demonstrates sit<>stand, in and out of bed, sudden start/stop and direction change without issue. Total time spent with patient less than 8 minutes. Appears to be functioning at prior level.
[2024-09-03] MEDS: BENZONATATE 100 MG CAPSULE PO (20:36)
[2024-09-03] MEDS: LOVASTATIN 20 MG TABLET 40 MG PO (20:36)
[2024-09-03] MEDS: SOLIFENACIN 5 MG TABLET PO (20:36)
[2024-09-04] VITALS (14 sets, daily range): BP systolic 102–119; BP diastolic 51–53; PULSE 62–77; RESP 18–20; TEMP 36.4–36.8; O2SAT 94–98
[2024-09-04] MEDS: IPRATROPIUM 0.5 MG/ALBUTEROL SULFATE 2.5 MG AMPUL.NEB 3 ML INHALATION ×4 (02:05→20:57)
[2024-09-04] MEDS: metroNIDAZOLE 500 MG/ISO 100ML 500 MG/100 ML BAG 100 MG IVPB ×2 (04:36→11:59)
[2024-09-04 06:20] LABS: Hematocrit 38.1 % (37.0-47.0); Hemoglobin 11.4 g/dL (12.0-15.0); Immature Platelet Fraction Pct 3.1 % (0.9-11.2); Mean Corpuscular HGB Conc 29.9 g/dl (32-36); Mean Corpuscular Hemoglobin 30.2 pg (26-34); Mean Corpuscular Volume 101.1 fl (80-100); Mean Platelet Volume 9.8 fl (7.4-10.4); Platelet Count Result 143 k/mm3 (150-375); Red Blood Count 3.77 M/mm3 (4.2-5.4); Red Cell Distribution Width 12.2 % (11.5-14.5); White Blood Count 5.6 K/mm3 (4.5-10.0)
[2024-09-04 06:29] LABS: Potassium 4.6 mmol/L (3.4-5.0)
[2024-09-04 06:30] LABS: Alanine Aminotransferase 18 U/L (6-35); Albumin Level 3.2 g/dL (3.5-5.1); Alkaline Phosphatase 92 U/L (38-126); Aspartate Amino Transferase 33 U/L (14-36); Bilirubin,Total 0.3 mg/dL (0.2-1.3); Blood Urea Nitrogen 19 mg/dL (7-17); Calcium 8.9 mg/dL (8.4-10.2); Carbon Dioxide > 40 mmol/L (22-30); Chloride 98 mmol/L (98-107); Estimated CRCL calculation 38 ml/min; Estimated Glomerular Filt Rate > 60; Glucose 81 mg/dL (65-110); Sodium 139 mmol/L (137-145)
[2024-09-04] MEDS: CHOLECALCIFEROL 5,000 UNITS TABLET 5000 UNITS PO (09:40)
[2024-09-04] MEDS: CYCLOBENZAPRINE HCL 5 MG TABLET PO ×2 (09:40→20:46)
[2024-09-04] MEDS: BENZONATATE 100 MG CAPSULE PO ×3 (09:40→20:46)
[2024-09-04] MEDS: LORATADINE 10 MG TABLET PO (09:40)
[2024-09-04] MEDS: ASPIRIN 81 MG ENTERIC TABLET PO (09:40)
[2024-09-04] MEDS: guaiFENesin 12 HR 600 MG TABCR PO ×2 (09:40→20:46)
[2024-09-04] MEDS: METOPROLOL SUCCINATE EXT REL 25 MG TABCR PO (09:40)
[2024-09-04] MEDS: PARoxetine 20 MG TABLET PO (09:41)
[2024-09-04] MEDS: GABAPENTIN 300 MG CAPSULE PO ×2 (09:41→20:47)
[2024-09-04] MEDS: PANTOPRAZOLE 40 MG TABLET PO ×2 (09:41→17:13)
[2024-09-04] MEDS: FERROUS SULFATE 325 MG TABLET DR PO (09:41)
[2024-09-04] MEDS: oxyCODONE HCL (*CRX) 10 MG TAB SR 12HR PO ×2 (09:41→20:46)
[2024-09-04] MEDS: SODIUM CHLORIDE 0.9% IV 250 ML 50 ML (11:58)
[2024-09-04] MEDS: levoFLOXacin 750 MG/D5W 150 ML 750 MG/150 ML BAG 100 MG IVPB (13:20)
--- NOTE | 2024-09-04 14:15 | PM.IMPN ---
Progress Note: A&P Assessment and Plan (1) Chronic respiratory failure with hypoxia: Code(s): J96.11 - Chronic respiratory failure with hypoxia Status: Acute Assessment and Plan: - continue supplemental O2 to maintain O2 saturation greater than 90%, wean to baseline 1-2 L - mild hypoxia with exertion, suspect this is secondary to pneumonia. See plan below. Has returned to her baseline 1-2L NC. CO2 >40 on labs, check apnealink and ABG in AM (2) Right upper lobe pneumonia: Qualifiers: Pneumonia type: due to unspecified organism Qualified Code(s): J18.9 - Pneumonia, unspecified organism Code(s): J18.9 - Pneumonia, unspecified organism Status: Acute Assessment and Plan: - CXR: 1. Persistent right upper lobe pneumonia. 2. Emphysema with biapical pleural-parenchymal scarring. 3. Unchanged reticulonodular pattern in the lower lungs with multiple small calcified pulmonary nodules consistent with sequela of chronic infection. 4. Enlargement of the central pulmonary arteries consistent with pulmonary arterial hypertension. - chest CTA: No PE, severe emphysema with RUL pneumonia - risk factors and complicating factors: COPD/ILD, recent antibiotic course at the end of July - Baseline O2 1-2L, currently on 2L. Wean as tolerated. - started on CAP tx: Levaquin 750mg q48. -Change IV metronidazole to PO TID, started for concern for aspiration, allergy to PCN. - MRSA PCR negative - sputum culture ordered - Viral PCR negative - History of coughing/choking requiring esophageal dilation since 2004 requiring q6mo, now q3mo. Most recent in August. Speech evaluation: level 6 soft/bite size adn level 1 liquids. Exercises given. Speech to follow. MBS obtained and showed trace penetration without aspiration Discussed with Dr. Josue and plan for outpatient esophageal dilation Shortness of breath improving. Continues to endorse dyspnea on exertion. Weaned back to baseline 1-2L. (3) COPD (chronic obstructive pulmonary disease): Qualifiers: COPD type: unspecified COPD Qualified Code(s): J44.9 - Chronic obstructive pulmonary disease, unspecified Code(s): J44.9 - Chronic obstructive pulmonary disease, unspecified Status: Acute Assessment and Plan: - DuoNebs kiel - no wheezing on exam, frequently gets thrush with steroid course. patient would like to avoid steroid course if possible, if necessary requesting IV as it as historically been more effective for her. will hold on steroid course at this time, if no clinical improvement with kiel nebs and abx patient is amendable to a course. - continue home meds -Overall seems improved, check apnealink overnight with AM ABG since CO2>40 (4) Essential hypertension: Code(s): I10 - Essential (primary) hypertension Status: Chronic Assessment and Plan: Chronic, continue home medications - Metoprolol 25 mg daily - blood pressures reviewed and remain stable, continue to monitor (5) Severe protein-calorie malnutrition: Code(s): E43 - Unspecified severe protein-calorie malnutrition Status: Acute Assessment and Plan: Supplement per nutrition recommendations Time Spent With Patient Time: 57 minutes Subjective Date/time seen: 09/04/24 14:15 Interval history: Feels breathing overall improved, able to walk across the room and back but not yet at baseline. CO2 >40 overnight but not reporting apnea symptoms. No recent diuretics 69 year old female with past medical history of COPD, iron deficiency anemia, RLS, chronic respiratory failure on supplemental O2 (1-2L NC), paroxysmal SVT, kidney stones, fibromyalgia, rheumatoid arthritis, IBS, GERD, interstitial lung disease, hypertension, hyperlipidemia and anxiety presents to the hospital with hypoxia from her PCP office (Giancarlo BANEGAS). Patient is pleasant sitting up in her bed. She has been ambulating throughout the room without dizziness/lightheadedness. She continues to endorse shortness of breath with ambulation. She has no other complaints denying chest pain, palpitations, nausea/vomiting and abdominal pain. Discussed patient with GI Dr. Josue who plans to perform another esophageal dilation in the outpatient setting as per patient request. She continues to have a cough but notes that this has improved. Review of Systems Review of Systems: All systems reviewed & are unremarkable except as noted in HPI and below Exam Narrative: General: frail female in no acute respiratory distress who is nontoxic appearing, sitting up in bed. HEENT: Normocephalic. Atraumatic. Extraocular movement intact. Sclera clear and anicteric. No facial asymmetry. Chest: Lungs are diminished to auscultation bilaterally. No wheezes or crackles. CV: Heart was regular rate and rhythm. Abd: Abdomen was soft. Nontender. Nondistended. Positive bowel sounds. Ext: No clubbing, cyanosis, or edema. DP pulses bilaterally. Neuro: Patient is alert. Speech is clear. Objective Data Vital Signs Vital Signs: Vital Signs - 24 hr 09/03/24 20:00 09/03/24 20:10 09/03/24 20:12 Temperature Pulse Rate 73 75 75 Respiratory Rate 18 20 20 Blood Pressure Pulse Oximetry 100 94 Oxygen Delivery Nasal Cannula Nasal Cannula Oxygen Flow Rate 2 2 Fraction of Inspired Oxygen 28 28 09/03/24 21:57 09/04/24 02:05 09/04/24 02:15 Temperature 98.2 F Pulse Rate 73 75 74 Respiratory Rate 18 20 Blood Pressure 111/59 L Pulse Oximetry 100 Oxygen Delivery Oxygen Flow Rate Fraction of Inspired Oxygen 09/04/24 06:00 09/04/24 07:47 09/04/24 07:47 Temperature 98 F Pulse Rate 68 77 Respiratory Rate 18 20 Blood Pressure 119/52 L Pulse Oximetry 96 94 Oxygen Delivery Nasal Cannula Oxygen Flow Rate 2 Fraction of Inspired Oxygen 09/04/24 07:57 09/04/24 09:40 09/04/24 13:12 Temperature Pulse Rate 75 75 Respiratory Rate 20 Blood Pressure Pulse Oximetry 94 Oxygen Delivery Nasal Cannula Oxygen Flow Rate 2 Fraction of Inspired Oxygen 09/04/24 13:12 Temperature Pulse Rate 74 Respiratory Rate 20 Blood Pressure Pulse Oximetry Oxygen Delivery Oxygen Flow Rate Fraction of Inspired Oxygen Intake/Output Intake/Output: Intake & Output 09/01/24 09/02/24 09/03/24 09/04/24 23:59 23:59 23:59 23:59 Intake Total 4075 2013 1790 338 Balance 4075 2013 1790 338 Meds/Results Medications: Active Medications Generic Name Dose Route Start Last Admin Trade Name Freq PRN Reason Stop Dose Admin Acetaminophen 650 mg 08/31/24 14:11 09/02/24 05:03 Acetaminophen 325 Mg Tablet PO 650 mg Q6H PRN Administration Mild Pain (1-3) or Fever Albuterol/Ipratropium 3 ml 08/31/24 14:00 09/04/24 13:12 Ipratropium 0.5 Mg/Albuterol Sulfate 2.5 Mg Ampul.Neb 3 Ml INHALATION 3 ml Q6HRT KIEL Administration Aspirin 81 mg 09/01/24 09:00 09/04/24 09:40 Aspirin 81 Mg Enteric Tablet PO 81 mg DAILY KIEL Administration Benzonatate 100 mg 08/31/24 14:11 09/04/24 09:40 Benzonatate 100 Mg Capsule PO 100 mg TID PRN Administration Cough Cyclobenzaprine HCl 5 mg 08/31/24 21:00 09/04/24 09:40 Cyclobenzaprine Hcl 5 Mg Tablet PO 5 mg Q12H KIEL Administration Ferrous Sulfate 325 mg 09/01/24 09:00 09/04/24 09:41 Ferrous Sulfate [address] PO 325 mg DAILY KIEL Administration Fluticasone Propionate 1 spray 08/31/24 19:07 09/01/24 16:54 Fluticasone Propionate 0.05% Na Spr 16 Gm Btl (*Bkc) NASAL 1 spray BID PRN Administration nasal congestion Gabapentin 300 mg 08/31/24 21:00 09/04/24 09:41 Gabapentin 300 Mg Capsule PO 300 mg Q12H KIEL Administration Guaifenesin 600 mg 08/31/24 21:00 09/04/24 09:40 Guaifenesin 12 Hr 600 Mg Tabcr PO 600 mg Q12HR KIEL Administration Levofloxacin/Dextrose 750 mg in 150 mls @ 100 mls/hr 09/02/24 12:00 09/04/24 13:20 Levaquin 750 Mg/D5w 150 Ml IVPB 100 mls/hr Q48H KIEL Administration Metronidazole 500 mg in 100 mls @ 100 mls/hr 08/31/24 20:00 09/04/24 11:59 Flagyl 500 Mg/Iso Soln 100 Ml IVPB 100 mls/hr Q8H KIEL Administration Loratadine 10 mg 09/01/24 09:00 09/04/24 09:40 Loratadine 10 Mg Tablet PO 10 mg DAILY KIEL Administration Lovastatin 40 mg 08/31/24 21:00 09/03/24 20:36 Lovastatin 20 Mg Tablet PO 40 mg HS KIEL Administration Metoprolol Succinate 25 mg 09/01/24 09:00 09/04/24 09:40 Metoprolol Succinate Ext Rel 25 Mg Tabcr PO 25 mg DAILY KIEL Administration Nicotine 1 patch 08/31/24 19:20 09/04/24 09:41 Nicotine (*Pbkc) 21 Mg Patch TRANSDERM Not Given DAILY KIEL Oxycodone HCl 10 mg 08/31/24 21:00 09/04/24 09:41 Oxycodone Hcl (*Crx) 10 Mg Tab Sr 12hr PO 10 mg Q12HR KIEL Administration Pantoprazole Sodium 40 mg 08/31/24 19:20 09/04/24 09:41 Pantoprazole 40 Mg Tablet PO 40 mg BID KIEL Administration Paroxetine HCl 20 mg 09/01/24 09:00 09/04/24 09:41 Paroxetine 20 Mg Tablet PO 20 mg DAILY KIEL Administration Solifenacin 5 mg 08/31/24 21:00 09/03/24 20:36 Solifenacin 5 Mg Tablet PO 5 mg HS KIEL Administration Vitamin D 5,000 units 09/01/24 09:00 09/04/24 09:40 Cholecalciferol 5,000 Units Tablet PO 5,000 units DAILY KIEL Administration Radiology Results: ITS Impressions Chest X-Ray 08/31/24 10:11 IMPRESSION: 1. Persistent right upper lobe pneumonia. 2. Emphysema with biapical pleural-parenchymal scarring. 3. Unchanged reticulonodular pattern in the lower lungs with multiple small calcified pulmonary nodules consistent with sequela of chronic infection. 4. Enlargement of the central pulmonary arteries consistent with pulmonary arterial hypertension. Chest CTA 08/31/24 11:15 IMPRESSION: 1. No pulmonary embolism. 2. Severe emphysema with right upper lobe pneumonia. 3. Bilateral nonobstructing nephrolithiasis. Modified Barium Swallow 09/01/24 16:33 IMPRESSION: 1: Trace penetration without aspiration. 2: Please refer to speech pathologist report for additional detail. Labs Labs: Laboratory Results - last 24 hr 09/04/24 05:32 WBC 5.6 RBC 3.77 L Hgb 11.4 L Hct 38.1 MCV 101.1 H MCH 30.2 MCHC 29.9 L RDW 12.2 Plt Count 143 L MPV 9.8 % Immature Plt Fraction 3.1 Sodium 139 Potassium 4.6 Chloride 98 Carbon Dioxide > 40 H Anion Gap BUN 19 H Creatinine 0.73 Estim Creat Clear Calc 38 Estimated GFR > 60 Glucose 81 Calcium 8.9 Total Bilirubin 0.3 AST 33 ALT 18 Alkaline Phosphatase 92 Total Protein 6.0 L Albumin 3.2 L Quality VTE Prophylaxis VTE prophylaxis: mechanical ordered Hospitalist MIPS Advance Care Plan I have confirmed that the patient's Advanced Care Plan is present, code status is documented, or surrogate decision maker is listed in patient medical record.: Yes Medication Reconciliation I have utilized all available resources to obtain, update and review the patients current medications (includes all prescriptions, OTC, herbals, cannabis, and nutritional supplements).: Yes
[2024-09-04] MEDS: metroNIDAZOLE 500 MG TABLET PO (17:13)
[2024-09-04] MEDS: LOVASTATIN 20 MG TABLET 40 MG PO (20:46)
[2024-09-04] MEDS: SOLIFENACIN 5 MG TABLET PO (20:46)
[2024-09-05] VITALS (15 sets, daily range): BP systolic 99–155; BP diastolic 46–65; PULSE 61–82; RESP 14–18; TEMP 36.3–36.6; O2SAT 92–96
[2024-09-05 05:20] LABS: Alveolar/Arterial O2 Gradient 53.7 mmHg; Base Excess ABG 9.1 mEq/l (+/-2.0); Fractional Inspired Oxygen 28 %; HCO3 ABG 37.4 mEq/l (22.0-26.0); Oxygen Content ABG 16.1 %vol (16.0-22.0); Oxygen Saturation ABG 89.7 % (95.0-100.0); Oxyhemoglobin 90.9 % THb (90.0-100.0); PO2 ABG 62.5 mmHg (80.0-100.0); PO2 FiO2 Ratio Arterial Blood 2.23 %; Total Hemoglobin 12.6 g/dL (12.0-18.0); pH ABG 7.341 (7.350-7.450)
[2024-09-05 05:27] LABS: Device NASAL CANNULA; Modified Allen's Test Pass; PCO2 ABG 70.7 mmHg (35.0-45.0); Site Drawn RIGHT RADIAL
--- NOTE | 2024-09-05 05:48 | PM.EVENT ---
Event Note Event Note Event Note: ABG this morning showed a pH of 7.341, pCO2 70.7, HC03 37.4. Nurse states that she is asleep but will wake up and is appropriate. Patient started on BiPAP 04/08 with a backup rate of 18. Repeat ABG ordered for 07:00; she may need to be transferred to IMU.
[2024-09-05 06:07] LABS: Basophils Percent Auto 0.4 % (0.2-1.2); Eosinophils Absolute Auto 0.3 K/mm3 (0-0.3); Hematocrit 42.6 % (37.0-47.0); Hemoglobin 12.6 g/dL (12.0-15.0); Immature Granulocyte Absolute 0.05 K/mm3 (0.00-0.031); Immature Granulocyte Percent A 0.7 % (0-0.5); Lymphocytes Percent Auto 19.3 % (18.3-44.2); Mean Corpuscular HGB Conc 29.6 g/dl (32-36); Mean Corpuscular Volume 101.4 fl (80-100); Mean Platelet Volume 9.9 fl (7.4-10.4); Monocytes Absolute Auto 0.6 K/mm3 (0.1-0.6); Monocytes Percent Auto 8.8 % (2.6-8.5); Neutrophils Absolute Auto 4.8 K/mm3 (1.3-6.7); Neutrophils Percent Auto 66.8 % (45.5-73.1); Platelet Count Result 176 k/mm3 (150-375); Red Cell Distribution Width 12.4 % (11.5-14.5); White Blood Count 7.3 K/mm3 (4.5-10.0)
[2024-09-05 06:29] LABS: Alanine Aminotransferase 24 U/L (6-35); Albumin Level 3.8 g/dL (3.5-5.1); Alkaline Phosphatase 92 U/L (38-126); Aspartate Amino Transferase 40 U/L (14-36); Bilirubin,Total 0.3 mg/dL (0.2-1.3); Blood Urea Nitrogen 18 mg/dL (7-17); Calcium 9.2 mg/dL (8.4-10.2); Carbon Dioxide > 40 mmol/L (22-30); Chloride 95 mmol/L (98-107); Estimated CRCL calculation 40 ml/min; Estimated Glomerular Filt Rate > 60; Glucose 96 mg/dL (65-110); Potassium 4.9 mmol/L (3.4-5.0); Sodium 139 mmol/L (137-145)
[2024-09-05 07:23] LABS: Alveolar/Arterial O2 Gradient 81.3 mmHg; Base Excess ABG 6.6 mEq/l (+/-2.0); Carboxyhemoglobin 0.6 % THb (0-2.0); Fractional Inspired Oxygen 28 %; HCO3 ABG 32.6 mEq/l (22.0-26.0); Methemoglobin ABG 0.1 %THb (0-1.5); Oxygen Content ABG 15.9 %vol (16.0-22.0); Oxygen Saturation ABG 89.1 % (95.0-100.0); Oxyhemoglobin 89.9 % THb (90.0-100.0); PCO2 ABG 52.6 mmHg (35.0-45.0); PO2 ABG 56.3 mmHg (80.0-100.0); PO2 FiO2 Ratio Arterial Blood 2.01 %; Reduced Hemoglobin 9.4 %THb (0-5.0); Total Hemoglobin 12.6 g/dL (12.0-18.0)
[2024-09-05 07:24] LABS: Device OTHER DEVICE; Modified Allen's Test Pass; Site Drawn RIGHT RADIAL
--- NOTE | 2024-09-05 08:31 | PM.IMPN ---
Progress Note: A&P Assessment and Plan (1) Chronic respiratory failure with hypoxia: Code(s): J96.11 - Chronic respiratory failure with hypoxia Status: Acute Assessment and Plan: - continue supplemental O2 to maintain O2 saturation greater than 90%, wean to baseline 1-2 L - mild hypoxia with exertion, suspect this is secondary to pneumonia. See plan below. Has returned to her baseline 1-2L NC. CO2 >40 on labs, apnea link showed 88% on baseline 2L ABG on morning of 09/05 showed a pH of 7.341, pCO2 70.7, HC03 37.4. Nurse stated that she is asleep but will wake up and is appropriate. Patient started on BiPAP 04/08 with a backup rate of 18. Repeat ABG showed pH 7.41, CO2 52.6, HCO3 32.6 Pulmonology consulted BiPAP with V60 with RR 14 and pressures 10/5 with FiO2 28% Overnight oximetry on these settings Obtain ABG in the morning prior to removal (2) Right upper lobe pneumonia: Qualifiers: Pneumonia type: due to unspecified organism Qualified Code(s): J18.9 - Pneumonia, unspecified organism Code(s): J18.9 - Pneumonia, unspecified organism Status: Acute Assessment and Plan: - CXR: 1. Persistent right upper lobe pneumonia. 2. Emphysema with biapical pleural-parenchymal scarring. 3. Unchanged reticulonodular pattern in the lower lungs with multiple small calcified pulmonary nodules consistent with sequela of chronic infection. 4. Enlargement of the central pulmonary arteries consistent with pulmonary arterial hypertension. - chest CTA: No PE, severe emphysema with RUL pneumonia - risk factors and complicating factors: COPD/ILD, recent antibiotic course at the end of July - Baseline O2 1-2L, currently on 2L. Wean as tolerated. - Antibiotic: Levaquin 750mg q48. Change IV metronidazole to PO TID, started for concern for aspiration, allergy to PCN. - MRSA PCR negative - sputum culture growing normal shell - Viral PCR negative - History of coughing/choking requiring esophageal dilation since 2004 requiring q6mo, now q3mo. Most recent in August. Speech evaluation: level 6 soft/bite size and level 1 liquids. Exercises given. Speech to follow. MBS obtained and showed trace penetration without aspiration Discussed with Dr. Josue and plan for outpatient esophageal dilation Shortness of breath has returned to baseline. (3) COPD (chronic obstructive pulmonary disease): Qualifiers: COPD type: unspecified COPD Qualified Code(s): J44.9 - Chronic obstructive pulmonary disease, unspecified Code(s): J44.9 - Chronic obstructive pulmonary disease, unspecified Status: Acute Assessment and Plan: - DuoNebs [place]ber[place] - no wheezing on exam, frequently gets thrush with steroid course. patient would like to avoid steroid course if possible, if necessary requesting IV as it as historically been more effective for her. will hold on steroid course at this time, if no clinical improvement with [place]ber[place] nebs and abx patient is amendable to a course. - continue home meds -Overall seems improved, check apnealink overnight with AM ABG since CO2>40 Apnea link showed 88% on baseline 2L ABG on morning of 09/05 showed a pH of 7.341, pCO2 70.7, HC03 37.4. Nurse stated that she is asleep but will wake up and is appropriate. Patient started on BiPAP / with a backup rate of 18. Repeat ABG showed pH 7.41, CO2 52.6, HCO3 32.6 Pulmonology consulted BiPAP with V60 with RR 14 and pressures 10/5 with FiO2 28% Overnight oximetry on these settings Obtain ABG in the morning prior to removal (4) Essential hypertension: Code(s): I10 - Essential (primary) hypertension Status: Chronic Assessment and Plan: Chronic, continue home medications - Metoprolol 25 mg daily - blood pressures reviewed and remain stable, continue to monitor (5) Severe protein-calorie malnutrition: Code(s): E43 - Unspecified severe protein-calorie malnutrition Status: Acute Assessment and Plan: Supplement per nutrition recommendations Time Spent With Patient Time with patient: 25 - 35 minutes Subjective Date/time seen: 09/05/24 08:31 Interval history: 69 year old female with past medical history of COPD, iron deficiency anemia, RLS, chronic respiratory failure on supplemental O2 (1-2L NC), paroxysmal SVT, kidney stones, fibromyalgia, rheumatoid arthritis, IBS, GERD, interstitial lung disease, hypertension, hyperlipidemia and anxiety presents to the hospital with hypoxia from her PCP office (Giancarlo BANEGAS). Patient is pleasant sitting on the side of her bed. She states that she feels as though her shortness of breath has returned to baseline. She is having less dyspnea on exertion and improvement in her cough. She was noted to have a low pH and hypercapnia this morning and was placed on bipap with improvement. Pulmonology consulted. Review of Systems Review of Systems: All systems reviewed & are unremarkable except as noted in HPI and below Exam Narrative: AF HR 75 RR 18 SpO2 93 BP 116/55 General: frail female in no acute respiratory distress who is nontoxic appearing, sitting up in bed. HEENT: Normocephalic. Atraumatic. Extraocular movement intact. Sclera clear and anicteric. No facial asymmetry. Chest: Lungs are diminished to auscultation bilaterally. No wheezes or crackles. CV: Heart was regular rate and rhythm. Abd: Abdomen was soft. Nontender. Nondistended. Positive bowel sounds. Ext: No clubbing, cyanosis, or edema. DP pulses bilaterally. Neuro: Patient is alert. Speech is clear. Objective Data Vital Signs Vital Signs: Vital Signs - 24 hr 09/04/24 09:40 09/04/24 13:12 09/04/24 13:12 Temperature Pulse Rate 75 74 Respiratory Rate 20 Blood Pressure Pulse Oximetry 94 Oxygen Delivery Nasal Cannula Oxygen Flow Rate 2 Fraction of Inspired Oxygen 09/04/24 13:30 09/04/24 14:00 09/04/24 20:00 Temperature 97.6 F Pulse Rate 70 74 62 Respiratory Rate 20 18 18 Blood Pressure 102/53 L Pulse Oximetry 98 96 Oxygen Delivery Nasal Cannula Oxygen Flow Rate 2 Fraction of Inspired Oxygen 09/04/24 20:57 09/04/24 21:07 09/04/24 21:07 Temperature Pulse Rate 74 77 Respiratory Rate 20 20 Blood Pressure Pulse Oximetry 94 Oxygen Delivery Nasal Cannula Oxygen Flow Rate 2 Fraction of Inspired Oxygen 09/04/24 22:00 09/05/24 06:00 09/05/24 06:20 Temperature 98.2 F 98 F Pulse Rate 62 61 79 Respiratory Rate 18 18 16 Blood Pressure 112/51 L 116/55 L Pulse Oximetry 96 92 94 Oxygen Delivery BiPAP Oxygen Flow Rate Fraction of Inspired Oxygen Intake/Output Intake/Output: Intake & Output 09/02/24 09/03/24 09/04/24 09/05/24 23:59 23:59 23:59 23:59 Intake Total 2013 1790 858 120 Balance 2013 1790 858 120 Meds/Results Medications: Active Medications Generic Name Dose Route Start Last Admin Trade Name Freq PRN Reason Stop Dose Admin Acetaminophen 650 mg 08/31/24 14:11 09/02/24 05:03 Acetaminophen 325 Mg Tablet PO 650 mg Q6H PRN Administration Mild Pain (1-3) or Fever Albuterol/Ipratropium 3 ml 08/31/24 14:00 09/05/24 02:00 Ipratropium 0.5 Mg/Albuterol Sulfate 2.5 Mg Ampul.Neb 3 Ml INHALATION Not Given Q6HRT ALBERTA Aspirin 81 mg 09/01/24 09:00 09/04/24 09:40 Aspirin 81 Mg Enteric Tablet PO 81 mg DAILY ALBERTA Administration Benzonatate 100 mg 08/31/24 14:11 09/04/24 20:46 Benzonatate 100 Mg Capsule PO 100 mg TID PRN Administration Cough Cyclobenzaprine HCl 5 mg 08/31/24 21:00 09/04/24 20:46 Cyclobenzaprine Hcl 5 Mg Tablet PO 5 mg Q12H ALBERTA Administration Ferrous Sulfate 325 mg 09/01/24 09:00 09/04/24 09:41 Ferrous Sulfate [address] PO 325 mg DAILY ALBERTA Administration Fluticasone Propionate 1 spray 08/31/24 19:07 09/01/24 16:54 Fluticasone Propionate 0.05% Na Spr 16 Gm Btl (*Bkc) NASAL 1 spray BID PRN Administration nasal congestion Gabapentin 300 mg 08/31/24 21:00 09/04/24 20:47 Gabapentin 300 Mg Capsule PO 300 mg Q12H ALBERTA Administration Guaifenesin 600 mg 08/31/24 21:00 09/04/24 20:46 Guaifenesin 12 Hr 600 Mg Tabcr PO 600 mg Q12HR ALBERTA Administration Levofloxacin/Dextrose 750 mg in 150 mls @ 100 mls/hr 09/02/24 12:00 09/04/24 14:50 Levaquin 750 Mg/D5w 150 Ml IVPB Infused Q48H ALBERTA Infusion Loratadine 10 mg 09/01/24 09:00 09/04/24 09:40 Loratadine 10 Mg Tablet PO 10 mg DAILY ALBERTA Administration Lovastatin 40 mg 08/31/24 21:00 09/04/24 20:46 Lovastatin 20 Mg Tablet PO 40 mg HS ALBERTA Administration Metoprolol Succinate 25 mg 09/01/24 09:00 09/04/24 09:40 Metoprolol Succinate Ext Rel 25 Mg Tabcr PO 25 mg DAILY ALBERTA Administration Metronidazole 500 mg 09/04/24 17:00 09/04/24 17:13 Metronidazole 500 Mg Tablet PO 500 mg TID ALBERTA Administration Nicotine 1 patch 08/31/24 19:20 09/04/24 09:41 Nicotine (*Pbkc) 21 Mg Patch TRANSDERM Not Given DAILY ALBERTA Oxycodone HCl 10 mg 08/31/24 21:00 09/04/24 20:46 Oxycodone Hcl (*Crx) 10 Mg Tab Sr 12hr PO 10 mg Q12HR ALBERTA Administration Pantoprazole Sodium 40 mg 08/31/24 19:20 09/04/24 17:13 Pantoprazole 40 Mg Tablet PO 40 mg BID ALBERTA Administration Paroxetine HCl 20 mg 09/01/24 09:00 09/04/24 09:41 Paroxetine 20 Mg Tablet PO 20 mg DAILY ALBERTA Administration Solifenacin 5 mg 08/31/24 21:00 09/04/24 20:46 Solifenacin 5 Mg Tablet PO 5 mg HS ALBERTA Administration Vitamin D 5,000 units 09/01/24 09:00 09/04/24 09:40 Cholecalciferol 5,000 Units Tablet PO 5,000 units DAILY ALBERTA Administration Radiology Results: ITS Impressions Chest X-Ray 08/31/24 10:11 IMPRESSION: 1. Persistent right upper lobe pneumonia. 2. Emphysema with biapical pleural-parenchymal scarring. 3. Unchanged reticulonodular pattern in the lower lungs with multiple small calcified pulmonary nodules consistent with sequela of chronic infection. 4. Enlargement of the central pulmonary arteries consistent with pulmonary arterial hypertension. Chest CTA 08/31/24 11:15 IMPRESSION: 1. No pulmonary embolism. 2. Severe emphysema with right upper lobe pneumonia. 3. Bilateral nonobstructing nephrolithiasis. Modified Barium Swallow 09/01/24 16:33 IMPRESSION: 1: Trace penetration without aspiration. 2: Please refer to speech pathologist report for additional detail. Labs Labs: Laboratory Results - last 24 hr 09/05/24 09/05/24 09/05/24 04:54 05:11 07:13 WBC 7.3 RBC 4.20 Hgb 12.6 Hct 42.6 MCV 101.4 H MCH 30.0 MCHC 29.6 L RDW 12.4 Plt Count 176 MPV 9.9 Immature Gran % (Auto) 0.7 H Neut % (Auto) 66.8 Lymph % (Auto) 19.3 [place] % (Auto) 8.8 H Eos % (Auto) 4.0 Baso % (Auto) 0.4 Lymph # (Auto) 1.40 [place] # (Auto) 0.6 Eos # (Auto) 0.3 Baso # (Auto) 0.0 Abs Immat Gran (auto) 0.05 H Absolute Neuts (auto) 4.8 Absolute Nucleated RBC 0.000 Nucleated RBC % 0.0 Puncture Site Right radial Right radial ABG pH 7.341 L 7.410 ABG pCO2 70.7 H* 52.6 H ABG pO2 62.5 L 56.3 L ABG PO2/FiO2 Ratio 2.23 2.01 ABG HCO3 37.4 H 32.6 H ABG O2 Saturation 89.7 L 89.1 L ABG O2 Content 16.1 15.9 L ABG Base Excess 9.1 6.6 A-a Gradient 53.7 81.3 Oxyhemoglobin 90.9 89.9 L Carboxyhemoglobin 0.6 Methemoglobin 0.1 Reduced Hemoglobin 9.4 H Total Hemoglobin 12.6 12.6 O2 Delivery Device Nasal cannula Other device O2 Liters/Min 2.0 2.0 FiO2 28 28 Sodium 139 Potassium 4.9 Chloride 95 L Carbon Dioxide > 40 H Anion Gap BUN 18 H Creatinine 0.69 L Estim Creat Clear Calc 40 Estimated GFR > 60 Glucose 96 Calcium 9.2 Total Bilirubin 0.3 AST 40 H ALT 24 Alkaline Phosphatase 92 Total Protein 7.0 Albumin 3.8 Quality VTE Prophylaxis VTE prophylaxis: mechanical ordered
[2024-09-05] MEDS: guaiFENesin 12 HR 600 MG TABCR PO (08:39)
[2024-09-05] MEDS: CHOLECALCIFEROL 5,000 UNITS TABLET 5000 UNITS PO (08:39)
[2024-09-05] MEDS: metroNIDAZOLE 500 MG TABLET PO ×3 (08:39→16:13)
[2024-09-05] MEDS: FERROUS SULFATE 325 MG TABLET DR PO (08:39)
[2024-09-05] MEDS: oxyCODONE HCL (*CRX) 10 MG TAB SR 12HR PO ×2 (08:39→20:36)
[2024-09-05] MEDS: LORATADINE 10 MG TABLET PO (08:39)
[2024-09-05] MEDS: PANTOPRAZOLE 40 MG TABLET PO ×2 (08:39→16:12)
[2024-09-05] MEDS: GABAPENTIN 300 MG CAPSULE PO ×2 (08:39→20:37)
[2024-09-05] MEDS: CYCLOBENZAPRINE HCL 5 MG TABLET PO ×2 (08:39→20:37)
[2024-09-05] MEDS: ASPIRIN 81 MG ENTERIC TABLET PO (08:39)
[2024-09-05] MEDS: PARoxetine 20 MG TABLET PO (08:39)
[2024-09-05] MEDS: METOPROLOL SUCCINATE EXT REL 25 MG TABCR PO (08:40)
[2024-09-05] MEDS: IPRATROPIUM 0.5 MG/ALBUTEROL SULFATE 2.5 MG AMPUL.NEB 3 ML INHALATION ×3 (08:56→20:23)
--- NOTE | 2024-09-05 13:46 | PM.CNPUL ---
Assessment and Plan Assessment and plan (1) COPD (chronic obstructive pulmonary disease): Qualifiers: COPD type: unspecified COPD Qualified Code(s): J44.9 - Chronic obstructive pulmonary disease, unspecified Code(s): J44.9 - Chronic obstructive pulmonary disease, unspecified Status: Acute Assessment and Plan: GOLD grade 2 group E COPD patient with 55 pack year tobacco use, PFTs 12/14/2019 with an FEV1 of 1.49 L, 60% predicted, ratio 49% predicted, positive bronchodilator response, air trapping and severely decreased DLCO that remain moderately decreased when adjusted for alveolar volume. Chronic hypoxemic respiratory failure requiring 1 L at rest, 2 L with activity and 1 L with sleep. Chronic hypercarbic respiratory failure. maintained on Stiolto Respimat. She did not have any help with a trial of breztri as an outpatient. 08/31/2024, white blood cell count 8.1, eosinophils 3% equals 243 per micro L. 09/05/2024: Patient today tells me she is breathing back to her baseline. White blood cell count 7.3, she is afebrile. Creatinine 0.73. Patient was on 2 L nasal cannula overnight and had an ApneaLink with recording duration of 7 hours and 17 minutes, average saturation 92%. Low saturation 82%, time with saturation less than or equal to 88% was 6 minutes, oxygen desaturation index 0.7. Patient had a blood gas at the end of the night with a pH of 7.34/71/63 and was placed on BiPAP 18 pressures 12/6 with a repeat blood gas of 7.41/53/56. Plan: patient has no wheezing today and says she is breathing back to her baseline. Continue DuoNebs q.6 hours, I will increase her guaifenesin from 600-1200 mg p.o. b.i.d. Continue Levaquin, started on 08/31/2024, day 6 and Flagyl, started on 09/04/2024, day 2 for possible right upper lobe pneumonia. Goal saturation 90-94%. Currently she is on 1 L with saturations 92%. (2) Chronic respiratory failure with hypercapnia: Code(s): J96.12 - Chronic respiratory failure with hypercapnia Status: Acute Assessment and Plan: Patient with gold grade 2 group B COPD and chronic hypercarbic respiratory failure with a blood gas on 08/02/2024 of 7.45/60/128 on 2 L nasal cannula and a blood gas on 09/06/2023 of 7.34/71/ 63 on 2 L nasal cannula. patient was empirically placed on BiPAP. Patient tells me she could not tolerate the BiPAP rate of 18, pressures 12/6 as pressures as who was blowing too hard and hurt her years and could not sleep with this on. The patient has COPD with chronic hypercarbic respiratory failure and would benefit from noninvasive ventilation to prevent subsequent deterioration and further hospitalizations. I will initiate noninvasive ventilation with the BiPAP mode. Plan: I will initiate BiPAP with V60 and adjust the respiratory rate to 14 and pressures 10/5 with an FiO2 of 28% and perform overnight oximetry and ABG in the morning prior to removal. History of Present Illness History of Present Illness Consult date: 09/05/24 Chief complaint: pneumonia Narrative: 09/05/2024: This is a new pulmonary consult for COPD with hypercarbic respiratory failure. 69-year-old with a history of hypertension, hyperlipidemia, SVT, the esophageal ring status post dilation, chronic sinusitis, COPD on home oxygen. patient presented to the hospital on 08/31/24 with shortness of breath, cough after finishing antibiotics as an outpatient. Room air saturations were 77%. Patient placed on 2 L nasal cannula saturations 95%. White blood cell count 8.1 with eosinophils 0.2%. Creatinine 0.62. D-dimer was 0.86, BNP 236, COVID influenza, RSV RT PCR assay negative. CT angiogram of the chest showed no change in her apical predominant centrilobular emphysema and no change in her right upper lobe consolidative infiltrate since 08/02/2024 but new since 12/08/2023. Patient was admitted to the hospital and treated for pneumonia with Levaquin and Flagyl. 09/05/2024: Patient today tells me she is breathing back to her baseline. White blood cell count 7.3, she is afebrile. Creatinine 0.73. Patient was on 2 L nasal cannula overnight and had an ApneaLink with recording duration of 7 hours and 17 minutes, average saturation 92%. Low saturation 82%, time with saturation less than or equal to 88% was 6 minutes, oxygen desaturation index 0.7. Patient had a blood gas at the end of the night with a pH of 7.34/71/63 and was placed on BiPAP 18 pressures 04/08 with a repeat blood gas of 7.41/53/56. Patient tells me she could not tolerate the by prep pressures as who was blowing too hard and hurt her years and could not sleep with this on. 08/31/24: EXAMINATION: CTA chest PE protocol DATE: 08/31/2024 11:02 INDICATION: Shortness of breath TECHNIQUE: Computed tomography (CT) pulmonary angiogram of the chest was performed with 100 mL Omnipaque-350 intravenous contrast. Additional 3D reconstructions utilizing coronal maximum intensity projection (MIP) were performed. Automated exposure control and iterative reconstruction technique were employed. The dose-length product was 151.66 mGy-cm. COMPARISON: 08/02/2024 and 12/08/2023 FINDINGS: No pulmonary embolism. Severe emphysema with chronic partially calcified by apical pleural-parenchymal scarring. There is been some progression of low-attenuation fluid/mucus within several of the cystic airspace in the right upper lobe which are new since 12/08/2023 consistent with pneumonia. Unchanged chronic reticulonodular opacities with a few small calcified nodules in the basilar right middle lobe and lingula consistent with sequela of chronic pneumonia. No pleural effusion. Heart size is normal. Atherosclerotic coronary artery calcific lesion. No pericardial effusion. Thoracic aorta is normal in caliber. No pathologically enlarged thoracic lymphadenopathy. 1 cm cyst and 13 x 5 x 3 mm nonobstructing stone at the upper pole the left kidney. There is scattered cortical scarring in the right kidney consistent with sequela of prior infection or infarction. Additional 2 mm nonobstructing stone at the lower pole of the right kidney. Mild thoracic spondylosis with chronic minimal anterior wedging of a few mid and lower thoracic vertebral bodies. Spinal stimulator leads which terminate at the posterior central canal at the level of T6-T7. IMPRESSION: 1. No pulmonary embolism. 2. Severe emphysema with right upper lobe pneumonia. 3. Bilateral nonobstructing nephrolithiasis. 12/19/2019 PULMONARY FUNCTION TESTS Results are reliable and reproducible. Spirometry: FEV1 is 60%, moderately decreased, 1.49 L. FVC is 90% normal. Decreased FEV1% consistent with airflow obstruction. . There is a 14% increase in FEV1 with bronchodilator, 200 ml, which is significant. Lung volumes: Total lung capacity 107% normal. RV/TLC increased 48% and consistent with air trapping. Airway resistance increased 336%. Diffusion: DLCO moderately reduced 35%. Flow volume loop: Scooping of the expiratory limb. IMPRESSION: Moderate obstructive ventilatory impairment with good response to bronchodilator, air trapping, moderate diffusion impairment. This is consistent with COPD. Review of Systems Constitutional: Constitutional: Reports no additional constitutional complaints Eyes: Eyes: Reports no additional eye complaints ENT: Reports system reviewed and no additional complaints, except as documented Cardiovascular: Cardiovascular: Reports no additional cardiovascular complaints Respiratory: Respiratory: Reports no additional respiratory complaints Gastrointestinal: Gastrointestinal: Reports no additional gastrointestinal complaints Musculoskeletal: Musculoskeletal: Reports no additional musculoskeletal complaints Neurologic: Reports system reviewed and no additional complaints, except as documented Psychiatric: Psychiatric: Reports no additional psychiatric complaints Endocrine: Endocrine: Reports no additional endocrine complaints Hematologic/Lymphatic: Hematologic/Lymphatic: Reports no additional hematologic/lymphatic complaints Allergic/Immunologic: Allergic/Immunologic: Reports no additional allergic/immunologic complaints [facility] Past Medical History Medical History OSWALD (iron deficiency anemia) Osteopenia Liana esophagitis RLS (restless legs syndrome) Esophageal dilatation Chronic narcotic use On home O2 Chronic sinusitis Dysphagia Olecranon bursitis, left elbow PSVT (paroxysmal supraventricular tachycardia) Change in bowel habits Kidney stones Fibromyalgia Rheumatoid arthritis Arthritis Constipation IBS (irritable bowel syndrome) GERD (gastroesophageal reflux disease) Stomach ulcer Wears glasses Ventricular ectopics Lumbar radiculopathy Family history of colon cancer Adenomatous colon polyp Esophageal stricture Urge incontinence ILD (interstitial lung disease) Small amount of interstitial lung disease was seen on base of lungs on chest CT 03/25/2018 which was an abdomen and pelvis CT Essential hypertension Oxygen dependent 2L w/activity, 1 w/rest Collagen vascular disease Hyperlipidemia, unspecified Infectious colitis Mass in neck Thrush Anxiety 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, patient unsure of this diagnosis COPD (chronic obstructive pulmonary disease) Tobacco abuse Surgical History Surgical History History of partial hysterectomy Status post insertion of spinal cord stimulator History of bladder suspension procedure History of appendectomy History of lumbar surgery Spinal cord stimulator implanted 05/23/21 Family History Family History Mother Patient's mother is , Onset Age: 72 Sibling Carcinoma of colon Ovarian cancer Lung cancer Rectal cancer Family history of malignant neoplasm of breast in first degree relative Father Brain aneurysm Other Arthritis COPD (chronic obstructive pulmonary disease) Cerebrovascular accident High cholesterol Hypertension Lung disease Neuropathy Social History Social History Social History: caffeine-coffee/soda Smoking packs per day: 1 Smoking cigarettes per day: 20.0 Years smoked: 60 Smoking pack-years: 60.00 Smoking status: Current every day smoker Second hand tobacco smoke exposure: Yes Additional smoking assessment comments: Using Nicotine patches Alcohol intake: never Substance use: unknown Do You Feel Safe in your Home?: Yes Lack of Transportation: No Lack of Food: Never True Current Housing: I Have Housing Concerned About Future Housing: No Difficulty Paying Gas/Electric Bills: No Difficulty Paying for Meds: No Currently Unemployed: No Education: High School Diploma/GED Difficulty w/ Childcare or Family Care: No Living arrangements: alone Occupation/Education: retired Gender identity (if verbalized by the patient): Female Spiritual care concerns: No Meds Home Medications and Allergies Home Medications ?Medication ?Instructions ?Recorded ?Confirmed ?Type aspirin 81 mg tablet,delayed 81 mg PO DAILY 06/02/19 08/31/24 History release (Adult Aspirin Regimen) cyclobenzaprine 5 mg tablet 5 mg PO Q12H 01/05/20 08/31/24 History oxycodone myristate 13.5 mg 13.5 mg PO Q12H 11/19/21 08/31/24 History capsule sprinkle extend release 12hr(DON'T CRUSH) (Xtampza ER) solifenacin 10 mg tablet (Vesicare) 5 mg PO HS 02/04/23 08/31/24 History cholecalciferol (vitamin D3) 125 125 mcg PO DAILY 07/24/23 08/31/24 History mcg (5,000 unit) tablet (Vitamin D3) guaifenesin 600 mg tablet, 600 mg PO Q12H 07/24/23 08/31/24 History extended release 12 hr (Mucinex) loratadine 10 mg tablet 10 mg PO DAILY 07/24/23 08/31/24 History metoprolol succinate 25 mg See Rx Instructions .Route 10/28/23 08/31/24 Rx tablet,extended release 24 hr .COMPLEX #90 tabs albuterol sulfate 90 mcg/actuation See Rx Instructions .Route 03/15/24 08/31/24 History aerosol inhaler .COMPLEX PRN Shortness Of Breath Or Wheezing nicotine 21 mg/24 hr daily 1 patch transdermal DAILY 03/15/24 08/31/24 History transdermal patch omeprazole 40 mg capsule,delayed 40 mg PO DAILY #90 caps 06/02/24 08/31/24 Rx release albuterol sulfate 2.5 mg/3 mL 2.5 mg (3 mL) inhalation Q4-6H PRN 06/07/24 08/31/24 Rx (0.083 %) solution for nebulization shortness of breath or wheezing #180 mL paroxetine HCl 20 mg tablet See Rx Instructions .Route 06/17/24 08/31/24 Rx .COMPLEX #90 tabs tiotropium 2.5 mcg-olodaterol 2.5 See Rx Instructions .Route 06/20/24 08/31/24 Rx mcg/actuation mist for inhalation .COMPLEX #4 grams (Stiolto Respimat) fluticasone propionate 50 1 spray intranasal BID PRN nasal 07/11/24 08/31/24 Rx mcg/actuation nasal congestion #16 grams spray,suspension (Flonase Allergy Relief) lovastatin 40 mg tablet 40 mg PO HS 08/02/24 08/31/24 History ferrous sulfate 325 mg (65 mg See Rx Instructions .Route 08/05/24 08/31/24 Rx iron) tablet (FeroSul) .COMPLEX #30 tabs gabapentin 300 mg capsule 300 mg PO Q12H #180 caps 08/29/24 08/31/24 Rx Allergies Allergy/AdvReac Type Severity Reaction Status Date / Time Penicillins Allergy Severe Anaphylaxis Verified 08/31/24 16:19 meperidine Allergy Intermediate Itching Verified 08/31/24 16:19 sulfamethoxazole (From Allergy Intermediate Mouth Verified 08/31/24 16:19 Bactrim) burning/redness trimethoprim (From Bactrim) Allergy Intermediate Mouth Verified 08/31/24 16:19 burning/redness mirtazapine AdvReac Mild Headache Verified 08/31/24 16:19 Vital Signs Vital Signs - 24 hr 09/04/24 14:00 09/04/24 20:00 09/04/24 20:57 Temperature 36.4 C Pulse Rate 74 62 74 Respiratory Rate 18 18 20 Blood Pressure 102/53 L Pulse Oximetry 98 96 Oxygen Delivery Nasal Cannula Oxygen Flow Rate 2 Fraction of Inspired Oxygen 28 09/04/24 21:07 09/04/24 21:07 09/04/24 22:00 Temperature 36.8 C Pulse Rate 77 62 Respiratory Rate 20 18 Blood Pressure 112/51 L Pulse Oximetry 94 96 Oxygen Delivery Nasal Cannula Oxygen Flow Rate 2 Fraction of Inspired Oxygen 09/05/24 06:00 09/05/24 06:20 09/05/24 08:00 Temperature 36.6 C Pulse Rate 61 79 Respiratory Rate 18 16 Blood Pressure 116/55 L Pulse Oximetry 92 94 96 Oxygen Delivery BiPAP Nasal Cannula Oxygen Flow Rate 1 Fraction of Inspired Oxygen 09/05/24 08:40 09/05/24 08:56 09/05/24 08:56 Temperature Pulse Rate 70 80 Respiratory Rate 18 Blood Pressure Pulse Oximetry 93 Oxygen Delivery Nasal Cannula Oxygen Flow Rate 1 Fraction of Inspired Oxygen 09/05/24 09:02 09/05/24 13:20 09/05/24 13:26 Temperature Pulse Rate 78 82 75 Respiratory Rate 18 18 18 Blood Pressure Pulse Oximetry Oxygen Delivery Oxygen Flow Rate Fraction of Inspired Oxygen Exam Const: General: cooperative and comfortable Orientation/consciousness: oriented to person, oriented to place and oriented to time Other: cachectic HENMT: Head: normal to inspection Ears: hearing grossly normal bilaterally Eyes: General: appearance normal, both eyes and all related structures Neck: Neck: normal visual inspection Chest: Chest palpation & inspection: normal inspection of the chest Resp: Effort & Inspection: normal respiratory effort and able to speak in complete sentences Auscultation: no crackles, no rales, no rhonchi, no wheezes and diminished lung sounds Other: no wheezes Cardio: Jugular venous distension: no JVD GI: Inspection: normal to inspection GI Palp: No abdominal tenderness Skin: General skin exam: normal color Neuro: General: oriented to person, oriented to place and oriented to time Extrem: General: normal to inspection Other: no edema Psych: Appearance: grossly normal Results Laboratory Findings 09/05/24 05:11 09/05/24 05:11 ABG, PT/INR, D-dimer: ABG ABG pH 7.410 (7.350-7.450) 09/05/24 07:13 ABG pCO2 52.6 mmHg (35.0-45.0) H 09/05/24 07:13 ABG pO2 56.3 mmHg (80.0-100.0) L 09/05/24 07:13 ABG O2 Saturation 89.1 % (95.0-100.0) L 09/05/24 07:13 PT/INR, D-dimer PT 12.8 Seconds (11.1-14.7) 08/31/24 09:06 INR 0.9 08/31/24 09:06 D-Dimer 0.86 ug/mL (<0.48) H 08/31/24 09:06 Abnormal lab findings: Abnormal Labs 08/31/24 08/31/24 08/31/24 09:06 09:07 09:28 WBC RBC Hgb Hct MCV MCHC 30.9 L Plt Count Immature Gran % (Auto) [place] % (Auto) 9.8 H [place] # (Auto) 0.8 H Abs Immat Gran (auto) ESR D-Dimer 0.86 H ABG pH ABG pCO2 57.5 H ABG pO2 69.1 L ABG HCO3 34.3 H ABG O2 Saturation 93.4 L ABG O2 Content Oxyhemoglobin 89.6 L Reduced Hemoglobin Potassium 5.3 H Chloride 95 L Carbon Dioxide 36 H Anion Gap BUN Creatinine 0.62 L Calcium AST NT-Pro-B Natriuret Pep 236 H Total Protein Albumin 08/31/24 09/01/24 09/02/24 12:37 05:46 08:25 WBC 3.5 L RBC 3.45 L 3.54 L Hgb 10.5 L 10.8 L Hct 35.6 L 34.9 L MCV 103.2 H MCHC 29.5 L 30.9 L Plt Count 111 L 123 L Immature Gran % (Auto) [place] % (Auto) 9.3 H [place] # (Auto) Abs Immat Gran (auto) ESR 28 H D-Dimer ABG pH ABG pCO2 ABG pO2 ABG HCO3 ABG O2 Saturation ABG O2 Content Oxyhemoglobin Reduced Hemoglobin Potassium Chloride Carbon Dioxide 35 H 38 H Anion Gap 2 L BUN Creatinine 0.61 L 0.56 L Calcium 8.1 L AST NT-Pro-B Natriuret Pep Total Protein 6.0 L Albumin 3.2 L 09/03/24 09/04/24 09/05/24 05:22 05:32 04:54 WBC RBC 3.55 L 3.77 L Hgb 11.0 L 11.4 L Hct 35.7 L MCV 100.6 H 101.1 H MCHC 30.8 L 29.9 L Plt Count 133 L 143 L Immature Gran % (Auto) [place] % (Auto) [place] # (Auto) Abs Immat Gran (auto) ESR D-Dimer ABG pH 7.341 L ABG pCO2 70.7 H* ABG pO2 62.5 L ABG HCO3 37.4 H ABG O2 Saturation 89.7 L ABG O2 Content Oxyhemoglobin Reduced Hemoglobin Potassium Chloride 96 L Carbon Dioxide 38 H > 40 H Anion Gap BUN 19 H Creatinine 0.60 L Calcium AST NT-Pro-B Natriuret Pep Total Protein 6.0 L 6.0 L Albumin 3.3 L 3.2 L 09/05/24 09/05/24 05:11 07:13 WBC RBC Hgb Hct MCV 101.4 H MCHC 29.6 L Plt Count Immature Gran % (Auto) 0.7 H [place] % (Auto) 8.8 H [place] # (Auto) Abs Immat Gran (auto) 0.05 H ESR D-Dimer ABG pH ABG pCO2 52.6 H ABG pO2 56.3 L ABG HCO3 32.6 H ABG O2 Saturation 89.1 L ABG O2 Content 15.9 L Oxyhemoglobin 89.9 L Reduced Hemoglobin 9.4 H Potassium Chloride 95 L Carbon Dioxide > 40 H Anion Gap BUN 18 H Creatinine 0.69 L Calcium AST 40 H NT-Pro-B Natriuret Pep Total Protein Albumin Diagnostic Findings Additional studies: ITS Impressions Chest X-Ray 08/31/24 10:11 IMPRESSION: 1. Persistent right upper lobe pneumonia. 2. Emphysema with biapical pleural-parenchymal scarring. 3. Unchanged reticulonodular pattern in the lower lungs with multiple small calcified pulmonary nodules consistent with sequela of chronic infection. 4. Enlargement of the central pulmonary arteries consistent with pulmonary arterial hypertension. Chest CTA 08/31/24 11:15 IMPRESSION: 1. No pulmonary embolism. 2. Severe emphysema with right upper lobe pneumonia. 3. Bilateral nonobstructing nephrolithiasis. Modified Barium Swallow 09/01/24 16:33 IMPRESSION: 1: Trace penetration without aspiration. 2: Please refer to speech pathologist report for additional detail.
[2024-09-05] MEDS: LOVASTATIN 20 MG TABLET 40 MG PO (20:36)
[2024-09-05] MEDS: SOLIFENACIN 5 MG TABLET PO (20:36)
[2024-09-05] MEDS: guaiFENesin 12 HR 600 MG TABCR 1200 MG PO (20:36)
[2024-09-05] MEDS: SENNA/DOCUSATE SODIUM TABLET 1 TAB PO (20:58)
[2024-09-06] VITALS (16 sets, daily range): BP systolic 94–124; BP diastolic 50–56; PULSE 70–85; RESP 16–20; TEMP 36.5–36.6; O2SAT 93–98
--- NOTE | 2024-09-06 01:25 | PCRCNOTE ---
Patient is on an overnight sleep study, therefore she was not woken for her 0200 breathing treatment. See next scheduled breathing treatment at 0800.
[2024-09-06 05:11] LABS: Base Excess ABG 8.1 mEq/l (+/-2.0); Fractional Inspired Oxygen 28 %; HCO3 ABG 33.9 mEq/l (22.0-26.0); Oxygen Content ABG 16.3 %vol (16.0-22.0); Oxygen Saturation ABG 93.2 % (95.0-100.0); PCO2 ABG 52.4 mmHg (35.0-45.0); PO2 ABG 65.8 mmHg (80.0-100.0); PO2 FiO2 Ratio Arterial Blood 2.35 %; Total Hemoglobin 12.6 g/dL (12.0-18.0); pH ABG 7.429 (7.350-7.450)
[2024-09-06 05:13] LABS: Expiratory Pressure 5 cmH2O; Modified Allen's Test Pass; Site Drawn RIGHT RADIAL
[2024-09-06 05:15] LABS: Device NON-INVASIVE VENT
[2024-09-06 06:22] LABS: Hematocrit 39.5 % (37.0-47.0); Mean Corpuscular HGB Conc 30.4 g/dl (32-36); Mean Corpuscular Hemoglobin 30.5 pg (26-34); Mean Corpuscular Volume 100.3 fl (80-100); Mean Platelet Volume 10.1 fl (7.4-10.4); Platelet Count Result 154 k/mm3 (150-375); Red Blood Count 3.94 M/mm3 (4.2-5.4); Red Cell Distribution Width 12.3 % (11.5-14.5); White Blood Count 6.4 K/mm3 (4.5-10.0)
[2024-09-06 06:33] LABS: Alanine Aminotransferase 22 U/L (6-35); Albumin Level 3.6 g/dL (3.5-5.1); Alkaline Phosphatase 90 U/L (38-126); Aspartate Amino Transferase 37 U/L (14-36); Bilirubin,Total 0.4 mg/dL (0.2-1.3); Blood Urea Nitrogen 22 mg/dL (7-17); Calcium 9.1 mg/dL (8.4-10.2); Carbon Dioxide > 40 mmol/L (22-30); Chloride 96 mmol/L (98-107); Estimated CRCL calculation 39 ml/min; Estimated Glomerular Filt Rate > 60; Glucose 153 mg/dL (65-110); Potassium 4.6 mmol/L (3.4-5.0); Sodium 138 mmol/L (137-145)
[2024-09-06] MEDS: IPRATROPIUM 0.5 MG/ALBUTEROL SULFATE 2.5 MG AMPUL.NEB 3 ML INHALATION ×3 (07:51→20:18)
[2024-09-06] MEDS: ASPIRIN 81 MG ENTERIC TABLET PO (08:47)
[2024-09-06] MEDS: CYCLOBENZAPRINE HCL 5 MG TABLET PO ×2 (08:47→21:59)
[2024-09-06] MEDS: CHOLECALCIFEROL 5,000 UNITS TABLET 5000 UNITS PO (08:47)
[2024-09-06] MEDS: guaiFENesin 12 HR 600 MG TABCR 1200 MG PO ×2 (08:48→22:01)
[2024-09-06] MEDS: LORATADINE 10 MG TABLET PO (08:48)
[2024-09-06] MEDS: oxyCODONE HCL (*CRX) 10 MG TAB SR 12HR PO ×2 (08:48→22:00)
[2024-09-06] MEDS: GABAPENTIN 300 MG CAPSULE PO ×2 (08:48→22:00)
[2024-09-06] MEDS: METOPROLOL SUCCINATE EXT REL 25 MG TABCR PO (08:48)
[2024-09-06] MEDS: metroNIDAZOLE 500 MG TABLET PO ×3 (08:48→17:35)
[2024-09-06] MEDS: PARoxetine 20 MG TABLET PO (08:49)
[2024-09-06] MEDS: PANTOPRAZOLE 40 MG TABLET PO ×2 (08:49→17:35)
[2024-09-06] MEDS: FERROUS SULFATE 325 MG TABLET DR PO (08:51)
--- NOTE | 2024-09-06 08:58 | P.PNPL_ITS ---
Progress Note: A&P Assessment and Plan (1) COPD (chronic obstructive pulmonary disease): Qualifiers: COPD type: unspecified COPD Qualified Code(s): J44.9 - Chronic obstructive pulmonary disease, unspecified Code(s): J44.9 - Chronic obstructive pulmonary disease, unspecified Status: Acute Assessment and Plan: GOLD grade 2 group E COPD patient with 55 pack year tobacco use, PFTs 12/14/2019 with an FEV1 of 1.49 L, 60% predicted, ratio 49% predicted, positive bronchodilator response, air trapping and severely decreased DLCO that remain moderately decreased when adjusted for alveolar volume. Chronic hypoxemic respiratory failure requiring 1 L at rest, 2 L with activity and 1 L with sleep. Chronic hypercarbic respiratory failure. maintained on Stiolto Respimat. She did not have any help with a trial of breztri as an outpatient. 08/31/2024, white blood cell count 8.1, eosinophils 3% equals 243 per micro L. 09/05/2024: Patient today tells me she is breathing back to her baseline. White blood cell count 7.3, she is afebrile. Creatinine 0.73. Patient was on 2 L nasal cannula overnight and had an ApneaLink with recording duration of 7 hours and 17 minutes, average saturation 92%. Low saturation 82%, time with saturation less than or equal to 88% was 6 minutes, oxygen desaturation index 0.7. Patient had a blood gas at the end of the night with a pH of 7.34/71/63 and was placed on BiPAP 18 pressures 12/6 with a repeat blood gas of 7.41/53/56. Plan: patient has no wheezing today and says she is breathing back to her baseline. Continue DuoNebs q.6 hours, I will increase her guaifenesin from 600 to 1200 mg p.o. b.i.d. Continue Levaquin, started on 08/31/2024, day 6 and Flagyl, started on 09/04/2024, day 2 for possible right upper lobe pneumonia. Goal saturation 90-94%. Currently she is on 1 L with saturations 92%. 09/06/2024: Patient tells me she is breathing at her baseline, cough is less than her baseline, normal phlegm with no hemoptysis. She is afebrile. White blood cell count 6.4, creatinine 0.7. Currently she is on 1 L with saturations 90%. Plan: continue DuoNebs q.6 hours, continue guaifenesin 1200 mg p.o. b.i.d.. Patient is on Levaquin day 7 and Flagyl day 3 for possible right upper lobe pneumonia. Discussed with Lucy Watson, will follow with you. (2) Chronic respiratory failure with hypercapnia: Code(s): J96.12 - Chronic respiratory failure with hypercapnia Status: Acute Assessment and Plan: Patient with gold grade 2 group B COPD and chronic hypercarbic respiratory failure with a blood gas on 08/02/2024 of 7.45/60/128 on 2 L nasal cannula and a blood gas on 09/06/2023 of 7.34/71/ 63 on 2 L nasal cannula. patient was empirically placed on BiPAP. Patient tells me she could not tolerate the BiPAP rate of 18, pressures 12/6 as pressures as who was blowing too hard and hurt her years and could not sleep with this on. The patient has COPD with chronic hypercarbic respiratory failure with ABG on her home ozygen setting of 2 L at 7.34/71/ 63 and Overnight oximetry on 2 L with time of saturation less than or equal to 88% at 6 minutes. CPAP has been considered and ruled out as patient has a BMI of 13.9 and no daytime hypersomnia. Patient would benefit from noninvasive ventilation to prevent subsequent deterioration and further hospitalizations. I will initiate noninvasive ventilation with the BiPAP mode. Plan: I will initiate BiPAP with V60 and adjust the respiratory rate to 14 and pressures 10/5 with an FiO2 of 28% and perform overnight oximetry and ABG in the morning prior to removal. 09/06/24: Last night the patient wore fullface mask with the hospital BiPAP rate of 14, pressures 10/5 and 28% FiO2. Patient said the mask was too tight but she did get some sleep. Patient had an overnight oximetry on these studies settings with recording duration of 3 hours and 33 minutes, average saturation 90%, low saturation 87%, time with saturation less than or equal to 88% was 2 minutes, oxygen desaturation index 1.3. ABG on these settings 7.43/52/66. Plan: Current settings provide adequate oxygenation and ventilation. I have decreased her pressures to 9/4 and decreased her rise from 3 to a value of 4 and she said that felt more comfortable. I have initiated the process for home BiPAP with no rate through [facility] with her insurance [facility] with cdl program coordinator. once we have an update from [facility] will make discharge plans. Subjective Date/time seen: 09/06/24 08:58 Interval history: 09/05/2024: This is a new pulmonary consult for COPD with hypercarbic res piratory failure. 69-year-old with a history of hypertension, hyperlipidemia, SVT, the esophageal ring status post dilation, chronic sinusitis, COPD on home oxygen. patient presented to the hospital on 08/31/24 with shortness of breath, cough after finishing antibiotics as an outpatient. Room air saturations were 77%. Patient placed on 2 L nasal cannula saturations 95%. White blood cell count 8.1 with eosinophils 0.2%. Creatinine 0.62. D-dimer was 0.86, BNP 236, COVID influenza, RSV RT PCR assay negative. CT angiogram of the chest showed no change in her apical predominant centrilobular emphysema and no change in her right upper lobe consolidative infiltrate since 08/02/2024 but new since 12/08/2023. Patient was admitted to the hospital and treated for pneumonia with Levaquin and Flagyl. 09/05/2024: Patient today tells me she is breathing back to her baseline. White blood cell count 7.3, she is afebrile. Creatinine 0.73. Patient was on 2 L nasal cannula overnight and had an ApneaLink with recording duration of 7 hours and 17 minutes, average saturation 92%. Low saturation 82%, time with saturation less than or equal to 88% was 6 minutes, oxygen desaturation index 0.7. Patient had a blood gas at the end of the night with a pH of 7.34/71/63 and was placed on BiPAP 18 pressures 12/6 with a repeat blood gas of 7.41/53/56. Patient tells me she could not tolerate the by prep pressures as who was blowing too hard and hurt her years and could not sleep with this on. 09/06/2024: Patient tells me she is breathing at her baseline, cough is less than her baseline, normal phlegm with no hemoptysis. She is afebrile. White blood cell count 6.4, creatinine 0.7. Currently she is on 1 L with saturations 90%. Last night the patient wore fullface mask with the hospital BiPAP rate of 14, pressures 10/5 and 28% FiO2. Patient had an overnight oximetry on these studies settings with recording duration of 3 hours and 33 minutes, average saturation 90%, low saturation 87%, time with saturation less than or equal to 88% was 2 minutes, oxygen desaturation index 1.3. ABG on these settings 7.43//66. 08/31/24: EXAMINATION: CTA chest PE protocol DATE: 08/31/2024 11:02 INDICATION: Shortness of breath TECHNIQUE: Computed tomography (CT) pulmonary angiogram of the chest was performed with 100 mL Omnipaque-350 intravenous contrast. Additional 3D reconstructions utilizing coronal maximum intensity projection (MIP) were performed. Automated exposure control and iterative reconstruction technique were employed. The dose-length product was 151.66 mGy-cm. COMPARISON: 08/02/2024 and 12/08/2023 FINDINGS: No pulmonary embolism. Severe emphysema with chronic partially calcified by apical pleural-parenchymal scarring. There is been some progression of low- attenuation fluid/mucus within several of the cystic airspace in the right upper lobe which are new since 12/08/2023 consistent with pneumonia. Unchanged chronic reticulonodular opacities with a few small calcified nodules in the basilar right middle lobe and lingula consistent with sequela of chronic pneumonia. No pleural effusion. Heart size is normal. Atherosclerotic coronary artery calcific lesion. No pericardial effusion. Thoracic aorta is normal in caliber. No pathologically enlarged thoracic lymphadenopathy. 1 cm cyst and 13 x 5 x 3 mm nonobstructing stone at the upper pole the left kidney. There is scattered cortical scarring in the right kidney consistent with sequela of prior infection or infarction. Additional 2 mm nonobstructing stone at the lower pole of the right kidney. Mild thoracic spondylosis with chronic minimal anterior wedging of a few mid and lower thoracic vertebral bodies. Spinal stimulator leads which terminate at the posterior central canal at the level of T6-T7. IMPRESSION: 1. No pulmonary embolism. 2. Severe emphysema with right upper lobe pneumonia. 3. Bilateral nonobstructing nephrolithiasis. 12/19/2019 PULMONARY FUNCTION TESTS Results are reliable and reproducible. Spirometry: FEV1 is 60%, moderately decreased, 1.49 L. FVC is 90% normal. Decreased FEV1% consistent with airflow obstruction. . There is a 14% increase in FEV1 with bronchodilator, 200 ml, which is significant. Lung volumes: Total lung capacity 107% normal. RV/TLC increased 48% and consistent with air trapping. Airway resistance increased 336%. Diffusion: DLCO moderately reduced 35%. Flow volume loop: Scooping of the expiratory limb. IMPRESSION: Moderate obstructive ventilatory impairment with good response to bronchodilator, air trapping, moderate diffusion impairment. This is consistent with COPD. Review of Systems Constitutional: Constitutional: Reports no additional constitutional complaints Eyes: Eyes: Reports no additional eye complaints ENT: Reports system reviewed and no additional complaints, except as documented Cardiovascular: Cardiovascular: Reports no additional cardiovascular complaints Respiratory: Respiratory: Reports no additional respiratory complaints Gastrointestinal: Gastrointestinal: Reports no additional gastrointestinal complaints Musculoskeletal: Musculoskeletal: Reports no additional musculoskeletal complaints Neurologic: Reports system reviewed and no additional complaints, except as documented Psychiatric: Psychiatric: Reports no additional psychiatric complaints Endocrine: Endocrine: Reports no additional endocrine complaints Hematologic/Lymphatic: Hematologic/Lymphatic: Reports no additional hematologic/lymphatic complaints Allergic/Immunologic: Allergic/Immunologic: Reports no additional allergic/immunologic complaints Exam Const: General: cooperative and comfortable Orientation/consciousness: oriented to person, oriented to place and oriented to time Other: cachectic HENMT: Head: normal to inspection Ears: hearing grossly normal bilaterally Eyes: General: appearance normal, both eyes and all related structures Neck: Neck: normal visual inspection Chest: Chest palpation & inspection: normal inspection of the chest Resp: Effort & Inspection: normal respiratory effort and able to speak in complete sentences Auscultation: no crackles, no rales, no rhonchi, no wheezes and diminished lung sounds Other: no wheezes Cardio: Jugular venous distension: no JVD GI: Inspection: normal to inspection Skin: General skin exam: normal color Neuro: General: oriented to person, oriented to place and oriented to time Extrem: General: normal to inspection Other: no edema Psych: Appearance: grossly normal Objective Data Vital Signs Vital Signs: Vital Signs - 24 hr 09/05/24 09:02 09/05/24 13:20 09/05/24 13:26 Temperature Pulse Rate 78 82 75 Respiratory Rate 18 18 18 Blood Pressure Pulse Oximetry Oxygen Delivery Oxygen Flow Rate 09/05/24 14:00 09/05/24 20:15 09/05/24 20:24 Temperature 36.3 C L 36.6 C Pulse Rate 78 75 73 Respiratory Rate 16 18 18 Blood Pressure 99/46 L 155/65 H Pulse Oximetry 96 94 Oxygen Delivery Oxygen Flow Rate 09/05/24 20:30 09/05/24 20:35 09/05/24 22:00 Temperature Pulse Rate 71 Respiratory Rate 18 14 Blood Pressure Pulse Oximetry 94 95 Oxygen Delivery Nasal Cannula BiPAP Oxygen Flow Rate 1 09/06/24 02:26 09/06/24 05:36 09/06/24 07:52 Temperature 36.5 C Pulse Rate 74 84 Respiratory Rate 18 18 18 Blood Pressure 111/51 L Pulse Oximetry 98 Oxygen Delivery BiPAP Oxygen Flow Rate 09/06/24 07:54 09/06/24 08:00 09/06/24 08:00 Temperature Pulse Rate 85 Respiratory Rate 18 Blood Pressure Pulse Oximetry 94 94 Oxygen Delivery Nasal Cannula Nasal Cannula Oxygen Flow Rate 1 1 09/06/24 08:48 Temperature Pulse Rate 78 Respiratory Rate Blood Pressure Pulse Oximetry Oxygen Delivery Oxygen Flow Rate Intake/Output Intake/Output: Intake & Output 09/03/24 09/04/24 09/05/24 09/06/24 23:59 23:59 23:59 23:59 Intake Total 6820 785 5110 600 Balance 8703 491 0637 600 Meds/Results Medications: Active Medications Generic Name Dose Route Start Last Admin Trade Name Freq PRN Reason Stop Dose Admin Acetaminophen 650 mg 08/31/24 14:11 09/02/24 05:03 Acetaminophen 325 Mg Tablet PO 650 mg Q6H PRN Administration Mild Pain (1-3) or Fever Albuterol/Ipratropium 3 ml 08/31/24 14:00 09/06/24 07:51 Ipratropium 0.5 Mg/Albuterol Sulfate 2.5 Mg Ampul.Neb 3 Ml INHALATION 3 ml Q6HRT ALBERTA Administration Aspirin 81 mg 09/01/24 09:00 09/06/24 08:47 Aspirin 81 Mg Enteric Tablet PO 81 mg DAILY ALBERTA Administration Benzonatate 100 mg 08/31/24 14:11 09/04/24 20:46 Benzonatate 100 Mg Capsule PO 100 mg TID PRN Administration Cough Cyclobenzaprine HCl 5 mg 08/31/24 21:00 09/06/24 08:47 Cyclobenzaprine Hcl 5 Mg Tablet PO 5 mg Q12H ALBERTA Administration Ferrous Sulfate 325 mg 09/01/24 09:00 09/06/24 08:51 Ferrous Sulfate [address] PO 325 mg DAILY ALBERTA Administration Fluticasone Propionate 1 spray 08/31/24 19:07 09/01/24 16:54 Fluticasone Propionate 0.05% Na Spr 16 Gm Btl (*Bkc) NASAL 1 spray BID PRN Administration nasal congestion Gabapentin 300 mg 08/31/24 21:00 09/06/24 08:48 Gabapentin 300 Mg Capsule PO 300 mg Q12H ALBERTA Administration Guaifenesin 1,200 mg 09/05/24 21:00 09/06/24 08:48 Guaifenesin 12 Hr 600 Mg Tabcr PO 1,200 mg Q12HR ALBERTA Administration Levofloxacin 750 mg 09/06/24 13:00 Levofloxacin 750 Mg Tablet PO 09/06/24 13:01 ONCE ONE Loratadine 10 mg 09/01/24 09:00 09/06/24 08:48 Loratadine 10 Mg Tablet PO 10 mg DAILY ALBERTA Administration Lovastatin 40 mg 08/31/24 21:00 09/05/24 20:36 Lovastatin 20 Mg Tablet PO 40 mg HS ALBERTA Administration Metoprolol Succinate 25 mg 09/01/24 09:00 09/06/24 08:48 Metoprolol Succinate Ext Rel 25 Mg Tabcr PO 25 mg DAILY ALBERTA Administration Metronidazole 500 mg 09/04/24 17:00 09/06/24 08:48 Metronidazole 500 Mg Tablet PO 09/06/24 23:59 500 mg TID ALBERTA Administration Nicotine 1 patch 08/31/24 19:20 09/06/24 08:47 Nicotine (*Pbkc) 21 Mg Patch TRANSDERM Not Given DAILY [facility] Oxycodone HCl 10 mg 08/31/24 21:00 09/06/24 08:48 Oxycodone Hcl (*Crx) 10 Mg Tab Sr 12hr PO 10 mg Q12HR ALBERTA Administration Pantoprazole Sodium 40 mg 08/31/24 19:20 09/06/24 08:49 Pantoprazole 40 Mg Tablet PO 40 mg BID ALBERTA Administration Paroxetine HCl 20 mg 09/01/24 09:00 09/06/24 08:49 Paroxetine 20 Mg Tablet PO 20 mg DAILY ALBERTA Administration Senna/Docusate Sodium 1 tab 09/05/24 21:00 09/05/24 20:58 Senna/Docusate Sodium Tablet PO 1 tab HS ALBERTA Administration Solifenacin 5 mg 08/31/24 21:00 09/05/24 20:36 Solifenacin 5 Mg Tablet PO 5 mg HS ALBERTA Administration Vitamin D 5,000 units 09/01/24 09:00 09/06/24 08:47 Cholecalciferol 5,000 Units Tablet PO 5,000 units DAILY ALBERTA Administration Radiology Results: ITS Impressions Chest X-Ray 08/31/24 10:11 IMPRESSION: 1. Persistent right upper lobe pneumonia. 2. Emphysema with biapical pleural-parenchymal scarring. 3. Unchanged reticulonodular pattern in the lower lungs with multiple small calcified pulmonary nodules consistent with sequela of chronic infection. 4. Enlargement of the central pulmonary arteries consistent with pulmonary arterial hypertension. Chest CTA 08/31/24 11:15 IMPRESSION: 1. No pulmonary embolism. 2. Severe emphysema with right upper lobe pneumonia. 3. Bilateral nonobstructing nephrolithiasis. Modified Barium Swallow 09/01/24 16:33 IMPRESSION: 1: Trace penetration without aspiration. 2: Please refer to speech pathologist report for additional detail. Labs Labs: Laboratory Results - last 24 hr 09/06/24 09/06/24 04:49 05:34 WBC 6.4 RBC 3.94 L Hgb 12.0 Hct 39.5 MCV 100.3 H MCH 30.5 MCHC 30.4 L RDW 12.3 Plt Count 154 MPV 10.1 Puncture Site Right radial ABG pH 7.429 ABG pCO2 52.4 H ABG pO2 65.8 L ABG PO2/FiO2 Ratio 2.35 ABG HCO3 33.9 H ABG O2 Saturation 93.2 L ABG O2 Content 16.3 ABG Base Excess 8.1 A-a Gradient 72.0 Oxyhemoglobin 92.0 Total Hemoglobin 12.6 O2 Delivery Device Non-invasive vent O2 Liters/Min Not Reportable FiO2 28 Expiratory Pressure 5 Inspiratory Pressure 10 Sodium 138 Potassium 4.6 Chloride 96 L Carbon Dioxide > 40 H Anion Gap BUN 22 H Creatinine 0.70 Estim Creat Clear Calc 39 Estimated GFR > 60 Glucose 153 H Calcium 9.1 Total Bilirubin 0.4 AST 37 H ALT 22 Alkaline Phosphatase 90 Total Protein 7.0 Albumin 3.6
--- NOTE | 2024-09-06 10:52 | PCNFU ---
Nutrition Follow-Up Complete: Severe protein calorie malnutrition related to loss of appetite, swallowing difficulty as evidenced by intakes <75% needs >1 month; weight loss 11%/1 month; severe muscle wasting and fat loss Goal:Textures appropriate for patient needs Adequate PO intake at least 75% meals and supplements Pt current nutrition is Heart healthy, Ensure Enlive TID, nutrition ice cream BID. Nutrition recommendation: continue with current plan of care Last recorded weight is 39.2 kg. Bowel Motility: +BM 5/6 Labs Reviewed: BUN:22. Glu:153 Meds Noted: protonix Skin: wNL Additional Notes: Pt continues on a heart healthy diet, intake 50% most meals, Ensure Enlive TID and nutrition ice cream cups added BID for additional supplementation. Encourage po intake, continue with current plan of care. Monitoring swallowing ability, intakes, weights, labs, supplement tolerance, plan of care Follow up in 5 days
[2024-09-06] MEDS: levoFLOXacin 750 MG TABLET PO (12:13)
[2024-09-06] MEDS: BENZONATATE 100 MG CAPSULE PO ×2 (12:15→22:01)
[2024-09-06 13:08] LABS: Inspiratory Pressure 10 cmH2O; Non-Invasive Vent Rate 14 /MIN
--- NOTE | 2024-09-06 15:39 | PM.IMPN ---
Progress Note: A&P Assessment and Plan (1) Chronic respiratory failure with hypoxia: Code(s): J96.11 - Chronic respiratory failure with hypoxia Status: Acute Assessment and Plan: - continue supplemental O2 to maintain O2 saturation greater than 90%, wean to baseline 1-2 L - mild hypoxia with exertion, suspect this is secondary to pneumonia. See plan below. Has returned to her baseline 1-2L NC. CO2 >40 on labs, apnea link showed 88% on baseline 2L ABG on morning of 09/05 showed a pH of 7.341, pCO2 70.7, HC03 37.4. Nurse stated that she is asleep but will wake up and is appropriate. Patient started on BiPAP 04/08 with a backup rate of 18. Repeat ABG showed pH 7.41, CO2 52.6, HCO3 32.6 Pulmonology consulted [facility] with 2L bleed Overnight oximetry on these settings Obtain ABG in the morning prior to removal (2) Right upper lobe pneumonia: Qualifiers: Pneumonia type: due to unspecified organism Qualified Code(s): J18.9 - Pneumonia, unspecified organism Code(s): J18.9 - Pneumonia, unspecified organism Status: Acute Assessment and Plan: - CXR: 1. Persistent right upper lobe pneumonia. 2. Emphysema with biapical pleural-parenchymal scarring. 3. Unchanged reticulonodular pattern in the lower lungs with multiple small calcified pulmonary nodules consistent with sequela of chronic infection. 4. Enlargement of the central pulmonary arteries consistent with pulmonary arterial hypertension. - chest CTA: No PE, severe emphysema with RUL pneumonia - risk factors and complicating factors: COPD/ILD, recent antibiotic course at the end of July - Baseline O2 1-2L, currently on 2L. Wean as tolerated. - Antibiotic: Levaquin 750mg q48. Change IV metronidazole to PO TID, started for concern for aspiration, allergy to PCN. - MRSA PCR negative - sputum culture growing normal shell - Viral PCR negative - History of coughing/choking requiring esophageal dilation since 2004 requiring q6mo, now q3mo. Most recent in August. Speech evaluation: level 6 soft/bite size and level 1 liquids. Exercises given. Speech to follow. MBS obtained and showed trace penetration without aspiration Discussed with Dr. Josue and plan for outpatient esophageal dilation Shortness of breath has returned to baseline. Repeat CXR seemingly unchanged from prior imaging with right upper lobe opacity Spoke with pulm and will continue extended course of antibiotics, likely to DC with Levaquin and Augmentin (3) COPD (chronic obstructive pulmonary disease): Qualifiers: COPD type: unspecified COPD Qualified Code(s): J44.9 - Chronic obstructive pulmonary disease, unspecified Code(s): J44.9 - Chronic obstructive pulmonary disease, unspecified Status: Acute Assessment and Plan: - DuoNebs alberta - no wheezing on exam, frequently gets thrush with steroid course. patient would like to avoid steroid course if possible, if necessary requesting IV as it as historically been more effective for her. will hold on steroid course at this time, if no clinical improvement with alberta nebs and abx patient is amendable to a course. - continue home meds -Overall seems improved, check apnealink overnight with AM ABG since CO2>40 Apnea link showed 88% on baseline 2L ABG on morning of 09/05 showed a pH of 7.341, pCO2 70.7, HC03 37.4. Nurse stated that she is asleep but will wake up and is appropriate. Patient started on BiPAP 04/08 with a backup rate of 18. Repeat ABG showed pH 7.41, CO2 52.6, HCO3 32.6 Pulmonology consulted Home BiPAP received from [facility] continue pressures 01/05 with 2L bleed Overnight oximetry on these settings Obtain ABG in the morning prior to removal (4) Essential hypertension: Code(s): I10 - Essential (primary) hypertension Status: Chronic Assessment and Plan: Chronic, continue home medications - Metoprolol 25 mg daily - blood pressures reviewed and remain stable, continue to monitor (5) Severe protein-calorie malnutrition: Code(s): E43 - Unspecified severe protein-calorie malnutrition Status: Acute Assessment and Plan: Supplement per nutrition recommendations Time Spent With Patient Time with patient: 25 - 35 minutes Subjective Date/time seen: 09/06/24 15:39 Interval history: 69 year old female with past medical history of COPD, iron deficiency anemia, RLS, chronic respiratory failure on supplemental O2 (1-2L NC), paroxysmal SVT, kidney stones, fibromyalgia, rheumatoid arthritis, IBS, GERD, interstitial lung disease, hypertension, hyperlipidemia and anxiety presents to the hospital with hypoxia from her PCP office (Giancarlo BANEGAS). Patient is pleasant sitting on the side of her bed. She continues to note that her shortness of breath has returned to her baseline. She has no complaints denying chest pain, palpitations, shortness of breath, nausea/vomiting, dizziness/lightheadedness with ambulation, and abdominal pain. Review of Systems Review of Systems: All systems reviewed & are unremarkable except as noted in HPI and below Exam Narrative: AF HR 79 RR 18 SpO2 96 1L NC BP 94/54 General: frail female in no acute respiratory distress who is nontoxic appearing, sitting up in bed. HEENT: Normocephalic. Atraumatic. Extraocular movement intact. Sclera clear and anicteric. No facial asymmetry. Chest: Lungs are diminished to auscultation bilaterally. No wheezes or crackles. CV: Heart was regular rate and rhythm. Abd: Abdomen was soft. Nontender. Nondistended. Positive bowel sounds. Ext: No clubbing, cyanosis, or edema. DP pulses bilaterally. Neuro: Patient is alert. Speech is clear. Objective Data Vital Signs Vital Signs: Vital Signs - 24 hr 09/05/24 20:15 09/05/24 20:24 09/05/24 20:30 Temperature 97.9 F Pulse Rate 75 73 Respiratory Rate 18 18 Blood Pressure 155/65 H Pulse Oximetry 94 94 Oxygen Delivery Nasal Cannula Oxygen Flow Rate 1 09/05/24 20:35 09/05/24 22:00 09/06/24 02:26 Temperature Pulse Rate 71 Respiratory Rate 18 14 18 Blood Pressure Pulse Oximetry 95 Oxygen Delivery BiPAP BiPAP Oxygen Flow Rate 09/06/24 05:36 09/06/24 07:52 09/06/24 07:54 Temperature 97.7 F Pulse Rate 74 84 Respiratory Rate 18 18 Blood Pressure 111/51 L Pulse Oximetry 98 94 Oxygen Delivery Nasal Cannula Oxygen Flow Rate 1 09/06/24 08:00 09/06/24 08:00 09/06/24 08:48 Temperature Pulse Rate 85 78 Respiratory Rate 18 Blood Pressure Pulse Oximetry 94 Oxygen Delivery Nasal Cannula Oxygen Flow Rate 1 09/06/24 14:00 09/06/24 14:43 09/06/24 14:52 Temperature 97.9 F Pulse Rate 79 70 72 Respiratory Rate 20 18 18 Blood Pressure 94/54 L Pulse Oximetry 96 Oxygen Delivery Oxygen Flow Rate Intake/Output Intake/Output: Intake & Output 09/03/24 09/04/24 09/05/24 09/06/24 23:59 23:59 23:59 23:59 Intake Total 3919 457 3439 1080 Balance 5954 570 1590 5177 Meds/Results Medications: Active Medications Generic Name Dose Route Start Last Admin Trade Name Freq PRN Reason Stop Dose Admin Acetaminophen 650 mg 08/31/24 14:11 09/02/24 05:03 Acetaminophen 325 Mg Tablet PO 650 mg Q6H PRN Administration Mild Pain (1-3) or Fever Albuterol/Ipratropium 3 ml 08/31/24 14:00 09/06/24 14:42 Ipratropium 0.5 Mg/Albuterol Sulfate 2.5 Mg Ampul.Neb 3 Ml INHALATION 3 ml Q6HRT ALBERTA Administration Aspirin 81 mg 09/01/24 09:00 09/06/24 08:47 Aspirin 81 Mg Enteric Tablet PO 81 mg DAILY ALBERTA Administration Benzonatate 100 mg 08/31/24 14:11 09/06/24 12:15 Benzonatate 100 Mg Capsule PO 100 mg TID PRN Administration Cough Cyclobenzaprine HCl 5 mg 08/31/24 21:00 09/06/24 08:47 Cyclobenzaprine Hcl 5 Mg Tablet PO 5 mg Q12H ALBERTA Administration Ferrous Sulfate 325 mg 09/01/24 09:00 09/06/24 08:51 Ferrous Sulfate [address] PO 325 mg DAILY ALBERTA Administration Fluticasone Propionate 1 spray 08/31/24 19:07 09/01/24 16:54 Fluticasone Propionate 0.05% Na Spr 16 Gm Btl (*Bkc) NASAL 1 spray BID PRN Administration nasal congestion Gabapentin 300 mg 08/31/24 21:00 09/06/24 08:48 Gabapentin 300 Mg Capsule PO 300 mg Q12H ALBERTA Administration Guaifenesin 1,200 mg 09/05/24 21:00 09/06/24 08:48 Guaifenesin 12 Hr 600 Mg Tabcr PO 1,200 mg Q12HR ALBERTA Administration Loratadine 10 mg 09/01/24 09:00 09/06/24 08:48 Loratadine 10 Mg Tablet PO 10 mg DAILY ALBERTA Administration Lovastatin 40 mg 08/31/24 21:00 09/05/24 20:36 Lovastatin 20 Mg Tablet PO 40 mg HS ALBERTA Administration Metoprolol Succinate 25 mg 09/01/24 09:00 09/06/24 08:48 Metoprolol Succinate Ext Rel 25 Mg Tabcr PO 25 mg DAILY ALBERTA Administration Metronidazole 500 mg 09/04/24 17:00 09/06/24 12:13 Metronidazole 500 Mg Tablet PO 09/06/24 23:59 500 mg TID ALBERTA Administration Nicotine 1 patch 08/31/24 19:20 09/06/24 08:47 Nicotine (*Pbkc) 21 Mg Patch TRANSDERM Not Given DAILY ALBERTA Oxycodone HCl 10 mg 08/31/24 21:00 09/06/24 08:48 Oxycodone Hcl (*Crx) 10 Mg Tab Sr 12hr PO 10 mg Q12HR ALBERTA Administration Pantoprazole Sodium 40 mg 08/31/24 19:20 09/06/24 08:49 Pantoprazole 40 Mg Tablet PO 40 mg BID ALBERTA Administration Paroxetine HCl 20 mg 09/01/24 09:00 09/06/24 08:49 Paroxetine 20 Mg Tablet PO 20 mg DAILY ALBERTA Administration Senna/Docusate Sodium 1 tab 09/05/24 21:00 09/05/24 20:58 Senna/Docusate Sodium Tablet PO 1 tab HS ALBERTA Administration Solifenacin 5 mg 08/31/24 21:00 09/05/24 20:36 Solifenacin 5 Mg Tablet PO 5 mg HS ALBERTA Administration Vitamin D 5,000 units 09/01/24 09:00 09/06/24 08:47 Cholecalciferol 5,000 Units Tablet PO 5,000 units DAILY ALBERTA Administration Radiology Results: ITS Impressions Chest CTA 08/31/24 11:15 IMPRESSION: 1. No pulmonary embolism. 2. Severe emphysema with right upper lobe pneumonia. 3. Bilateral nonobstructing nephrolithiasis. Modified Barium Swallow 09/01/24 16:33 IMPRESSION: 1: Trace penetration without aspiration. 2: Please refer to speech pathologist report for additional detail. Chest X-Ray 09/06/24 11:13 IMPRESSION: No significant change from previous examination. Opacity in the right upper lobe. Further evaluation advised. Labs Labs: Laboratory Results - last 24 hr 09/06/24 09/06/24 04:49 05:34 WBC 6.4 RBC 3.94 L Hgb 12.0 Hct 39.5 MCV 100.3 H MCH 30.5 MCHC 30.4 L RDW 12.3 Plt Count 154 MPV 10.1 Puncture Site Right radial ABG pH 7.429 ABG pCO2 52.4 H ABG pO2 65.8 L ABG PO2/FiO2 Ratio 2.35 ABG HCO3 33.9 H ABG O2 Saturation 93.2 L ABG O2 Content 16.3 ABG Base Excess 8.1 A-a Gradient 72.0 Oxyhemoglobin 92.0 Total Hemoglobin 12.6 O2 Delivery Device Non-invasive vent O2 Liters/Min Not Reportable Vent Rate 14 FiO2 28 Expiratory Pressure 5 Inspiratory Pressure 10 Sodium 138 Potassium 4.6 Chloride 96 L Carbon Dioxide > 40 H Anion Gap BUN 22 H Creatinine 0.70 Estim Creat Clear Calc 39 Estimated GFR > 60 Glucose 153 H Calcium 9.1 Total Bilirubin 0.4 AST 37 H ALT 22 Alkaline Phosphatase 90 Total Protein 7.0 Albumin 3.6 Quality VTE Prophylaxis VTE prophylaxis: mechanical ordered
[2024-09-06] MEDS: SOLIFENACIN 5 MG TABLET PO (21:59)
[2024-09-06] MEDS: LOVASTATIN 20 MG TABLET 40 MG PO (22:00)
[2024-09-06] MEDS: SENNA/DOCUSATE SODIUM TABLET 1 TAB PO (22:00)
[2024-09-06] MEDS: FLUTICASONE PROPIONATE 0.05% NA SPR 16 GM BTL (*BKC) 1 SPRAY NASAL (22:03)
[2024-09-07] VITALS (9 sets, daily range): BP systolic 117–138; BP diastolic 46–71; PULSE 74–92; RESP 16–20; TEMP 37; O2SAT 86–96
[2024-09-07 05:29] LABS: Alveolar/Arterial O2 Gradient 74.1 mmHg; Base Excess ABG 5.7 mEq/l (+/-2.0); Fractional Inspired Oxygen 28 %; HCO3 ABG 31.7 mEq/l (22.0-26.0); Oxygen Content ABG 17.1 %vol (16.0-22.0); Oxygen Saturation ABG 92.4 % (95.0-100.0); Oxyhemoglobin 91.5 % THb (90.0-100.0); PCO2 ABG 51.8 mmHg (35.0-45.0); PO2 ABG 64.4 mmHg (80.0-100.0); Total Hemoglobin 13.3 g/dL (12.0-18.0); pH ABG 7.404 (7.350-7.450)
[2024-09-07 05:33] LABS: Device BIPAP; Modified Allen's Test Pass; Site Drawn LEFT RADIAL
[2024-09-07 05:38] LABS: Expiratory Pressure 5 cmH2O; Inspiratory Pressure 10 cmH2O
[2024-09-07 06:28] LABS: Hematocrit 38.9 % (37.0-47.0); Hemoglobin 11.7 g/dL (12.0-15.0); Mean Corpuscular HGB Conc 30.1 g/dl (32-36); Mean Corpuscular Hemoglobin 30.2 pg (26-34); Mean Corpuscular Volume 100.5 fl (80-100); Mean Platelet Volume 9.6 fl (7.4-10.4); Platelet Count Result 139 k/mm3 (150-375); Red Blood Count 3.87 M/mm3 (4.2-5.4); Red Cell Distribution Width 12.7 % (11.5-14.5); White Blood Count 5.7 K/mm3 (4.5-10.0)
[2024-09-07 06:49] LABS: Alanine Aminotransferase 20 U/L (6-35); Albumin Level 3.5 g/dL (3.5-5.1); Alkaline Phosphatase 86 U/L (38-126); Aspartate Amino Transferase 31 U/L (14-36); Bilirubin,Total 0.4 mg/dL (0.2-1.3); Blood Urea Nitrogen 19 mg/dL (7-17); Calcium 8.8 mg/dL (8.4-10.2); Carbon Dioxide > 40 mmol/L (22-30); Chloride 97 mmol/L (98-107); Estimated CRCL calculation 43 ml/min; Estimated Glomerular Filt Rate > 60; Glucose 100 mg/dL (65-110); Potassium 4.5 mmol/L (3.4-5.0); Sodium 137 mmol/L (137-145)
[2024-09-07] MEDS: IPRATROPIUM 0.5 MG/ALBUTEROL SULFATE 2.5 MG AMPUL.NEB 3 ML INHALATION (08:26)
[2024-09-07] MEDS: GABAPENTIN 300 MG CAPSULE PO (08:26)
[2024-09-07] MEDS: LORATADINE 10 MG TABLET PO (08:27)
[2024-09-07] MEDS: PARoxetine 20 MG TABLET PO (08:27)
[2024-09-07] MEDS: guaiFENesin 12 HR 600 MG TABCR 1200 MG PO (08:27)
[2024-09-07] MEDS: PANTOPRAZOLE 40 MG TABLET PO (08:27)
[2024-09-07] MEDS: metroNIDAZOLE 500 MG TABLET PO ×2 (08:27→13:23)
[2024-09-07] MEDS: oxyCODONE HCL (*CRX) 10 MG TAB SR 12HR PO (08:27)
[2024-09-07] MEDS: CHOLECALCIFEROL 5,000 UNITS TABLET 5000 UNITS PO (08:27)
[2024-09-07] MEDS: CYCLOBENZAPRINE HCL 5 MG TABLET PO (08:28)
[2024-09-07] MEDS: FERROUS SULFATE 325 MG TABLET DR PO (08:28)
[2024-09-07] MEDS: METOPROLOL SUCCINATE EXT REL 25 MG TABCR PO (08:28)
--- NOTE | 2024-09-07 08:46 | P.PNPL_ITS ---
Progress Note: A&P Assessment and Plan (1) COPD (chronic obstructive pulmonary disease): Qualifiers: COPD type: unspecified COPD Qualified Code(s): J44.9 - Chronic obstructive pulmonary disease, unspecified Code(s): J44.9 - Chronic obstructive pulmonary disease, unspecified Status: Acute Assessment and Plan: GOLD grade 2 group E COPD patient with 55 pack year tobacco use, PFTs 12/14/2019 with an FEV1 of 1.49 L, 60% predicted, ratio 49% predicted, positive bronchodilator response, air trapping and severely decreased DLCO that remain moderately decreased when adjusted for alveolar volume. Chronic hypoxemic respiratory failure requiring 1 L at rest, 2 L with activity and 1 L with sleep. Chronic hypercarbic respiratory failure. maintained on Stiolto Respimat. She did not have any help with a trial of breztri as an outpatient. 08/31/2024, white blood cell count 8.1, eosinophils 3% equals 243 per micro L. 09/05/2024: Patient today tells me she is breathing back to her baseline. White blood cell count 7.3, she is afebrile. Creatinine 0.73. Patient was on 2 L nasal cannula overnight and had an ApneaLink with recording duration of 7 hours and 17 minutes, average saturation 92%. Low saturation 82%, time with saturation less than or equal to 88% was 6 minutes, oxygen desaturation index 0.7. Patient had a blood gas at the end of the night with a pH of 7.34/71/63 and was placed on BiPAP 18 pressures 12/6 with a repeat blood gas of 7.41/53/56. Plan: patient has no wheezing today and says she is breathing back to her baseline. Continue DuoNebs q.6 hours, I will increase her guaifenesin from 600 to 1200 mg p.o. b.i.d. Continue Levaquin, started on 08/31/2024, day 6 and Flagyl, started on 09/04/2024, day 2 for possible right upper lobe pneumonia. Goal saturation 90-94%. Currently she is on 1 L with saturations 92%. 09/06/2024: Patient tells me she is breathing at her baseline, cough is less than her baseline, normal phlegm with no hemoptysis. She is afebrile. White blood cell count 6.4, creatinine 0.7. Currently she is on 1 L with saturations 90%. Plan: continue DuoNebs q.6 hours, continue guaifenesin 1200 mg p.o. b.i.d.. Patient is on Levaquin day 7 and Flagyl day 3 for possible right upper lobe pneumonia. 09/07/2024: Patient tells me she is breathing normal, her cough persists but is better, her phlegm is at her baseline with some yellow to green phlegm with no hemoptysis. She is on 2 L nasal cannula saturations 95%. She is afebrile. White blood cell count 5.7, creatinine 0.71. Plan: patient is ready to be discharged from a pulmonary perspective on these pulmonary medications: Levaquin 750 mg p.o. q.day x7 days. Flagyl 500 mg p.o. t.i.d. x6 days Stiolto Respimat 2.5-2.5 at 2 puffs q.a.m.. Albuterol 2 puffs q.4 hours p.r.n. shortness of breath or wheezing Albuterol nebulizer 2.5 mg nebs Q 4 hours p.r.n. shortness of breath or wheezing Guaifenesin 600 mg p.o. b.i.d. Cornet flutter valve Q 2-4 hours while awake. Oxygen at rest and with activity per formal home O2 assessment which I have ordered. When she naps or sleeps BiPAP no rate, pressures 9/4 with 2 L bleed in through [facility], [place]. Follow-up in the Pulmonary Clinic in 4 weeks. I gave the patient our business card and informed the detail manager. Patient will need outpatient compliance check and follow-up CT scan to assess right upper lobe infiltrate in the future. Discussed with Shaina Brown, will follow with you. (2) Chronic respiratory failure with hypercapnia: Code(s): J96.12 - Chronic respiratory failure with hypercapnia Status: Acute Assessment and Plan: Patient with gold grade 2 group B COPD and chronic hypercarbic respiratory failure with a blood gas on 08/02/2024 of 7.45/60/128 on 2 L nasal cannula and a blood gas on 09/06/2023 of 7.34/71/ 63 on 2 L nasal cannula. patient was empirically placed on BiPAP. Patient tells me she could not tolerate the BiPAP rate of 18, pressures 12/6 as pressures as who was blowing too hard and hurt her years and could not sleep with this on. The patient has COPD with chronic hypercarbic respiratory failure with ABG on her home ozygen setting of 2 L at 7.34/71/ 63 and Overnight oximetry on 2 L with time of saturation less than or equal to 88% at 6 minutes. CPAP has been considered and ruled out as patient has a BMI of 13.9 and no daytime hypersomnia. Patient would benefit from noninvasive ventilation to prevent subsequent deterioration and further hospitalizations. I will initiate noninvasive ventilation with the BiPAP mode. Plan: I will initiate BiPAP with V60 and adjust the respiratory rate to 14 and pressures 10/5 with an FiO2 of 28% and perform overnight oximetry and ABG in the morning prior to removal. 09/06/24: Last night the patient wore fullface mask with the hospital BiPAP rate of 14, pressures 10/5 and 28% FiO2. Patient said the mask was too tight but she did get some sleep. Patient had an overnight oximetry on these studies settings with recording duration of 3 hours and 33 minutes, average saturation 90%, low saturation 87%, time with saturation less than or equal to 88% was 2 minutes, oxygen desaturation index 1.3. ABG on these settings 7.43/52/66. Plan: Current settings provide adequate oxygenation and ventilation. I have decreased her pressures to 9/4 and decreased her rise from 3 to a value of 4 and she said that felt more comfortable. I have initiated the process for home BiPAP with no rate through [facility], [place] with her insurance [facility] with cable television access coordinator. once we have an update from [facility] [place] will make discharge plans. Later in the day the patient was set up with her home noninvasive ventilator through [facility] [place] with BiPAP no rate, IPAP 9, EPAP 4 and 2 L bleed in. She was set up with an over the mouth under the nose mask. 09/07/24: Patient wore her home BiPAP with an over the mouth under the nose mask with no rate, pressures 9/4 and 2 L bleed in. She said she wore the mask for 6-1/2 hours and slept well and feels refreshed this morning. Overnight oximetry on these settings with recording duration of 6 hours and 52 minutes, average saturation 92%. Low saturation 87%. Time with saturation less than or equal to 88% was 3 minutes. Oxygen desaturation index 0.6. Patient had ABG at the end of the night on these settings with a pH of 7.40/52/64. Plan: current home ventilator through [facility] [place] with BiPAP no rate, IPAP 9, EPAP 4 and 2 L bleed in provides adequate ventilation and oxygenation and will continue this when she naps and sleeps at home. Subjective Date/time seen: 09/07/24 08:46 Interval history: 09/05/2024: This is a new pulmonary consult for COPD with hypercarbic respiratory failure. 69-year-old with a history of hypertension, hyperlipidemia, SVT, the esophageal ring status post dilation, chronic sinusitis, COPD on home oxygen. patient presented to the hospital on 08/31/24 with shortness of breath, cough after finishing antibiotics as an outpatient. Room air saturations were 77%. Patient placed on 2 L nasal cannula saturations 95%. White blood cell count 8.1 with eosinophils 0.2%. Creatinine 0.62. D-dimer was 0.86, BNP 236, COVID influ mor, RSV RT PCR assay negative. CT angiogram of the chest showed no change in her apical predominant centrilobular emphysema and no change in her right upper lobe consolidative infiltrate since 08/02/2024 but new since 12/08/2023. Patient was admitted to the hospital and treated for pneumonia with Levaquin and Flagyl. 09/05/2024: Patient today tells me she is breathing back to her baseline. White blood cell count 7.3, she is afebrile. Creatinine 0.73. Patient was on 2 L nasal cannula overnight and had an ApneaLink with recording duration of 7 hours and 17 minutes, average saturation 92%. Low saturation 82%, time with saturation less than or equal to 88% was 6 minutes, oxygen desaturation index 0.7. Patient had a blood gas at the end of the night with a pH of 7.34/71/63 and was placed on BiPAP 18 pressures 12/6 with a repeat blood gas of 7.41/53/56. Patient tells me she could not tolerate the by prep pressures as who was blowing too hard and hurt her years and could not sleep with this on. 09/06/2024: Patient tells me she is breathing at her baseline, cough is less than her baseline, normal phlegm with no hemoptysis. She is afebrile. White blood cell count 6.4, creatinine 0.7. Currently she is on 1 L with saturations 90%. Last night the patient wore fullface mask with the hospital BiPAP rate of 14, pressures 10/5 and 28% FiO2. Patient had an overnight oximetry on these studies settings with recording duration of 3 hours and 33 minutes, average saturation 90%, low saturation 87%, time with saturation less than or equal to 88% was 2 minutes, oxygen desaturation index 1.3. ABG on these settings 7.43/52/66. Later in the day the patient was set up with her home noninvasive ventilator through [facility] [place] with BiPAP no rate, IPAP 9, EPAP 4 and 2 L bleed in. She was set up with an over the mouth under the nose mask. 09/07/2024: Patient tells me she is breathing normal, her cough persists but is better, her phlegm is at her baseline with some yellow to green phlegm with no hemoptysis. She is on 2 L nasal cannula saturations 95%. She is afebrile. White blood cell count 5.7, creatinine 0.71. Patient wore her home BiPAP with an over the mouth under the nose mask with no rate, pressures 9/4 and 2 L bleed in. She said she wore the mask for 6-1/2 hours and slept well and feels refreshed this morning. Overnight oximetry on these settings with recording duration of 6 hours and 52 minutes, average saturation 92%. Low saturation 87%. Time with saturation less than or equal to 88% was 3 minutes. Oxygen desaturation index 0.6. Patient had ABG at the end of the night on these settings with a pH of 7.40/52/64. 08/31/24: EXAMINATION: CTA chest PE protocol DATE: 08/31/2024 11:02 INDICATION: Shortness of breath TECHNIQUE: Computed tomography (CT) pulmonary angiogram of the chest was performed with 100 mL Omnipaque-350 intravenous contrast. Additional 3D reconstructions utilizing coronal maximum intensity projection (MIP) were performed. Automated exposure control and iterative reconstruction technique were employed. The dose-length product was 151.66 mGy-cm. COMPARISON: 08/02/2024 and 12/08/2023 FINDINGS: No pulmonary embolism. Severe emphysema with chronic partially calcified by apical pleural-parenchymal scarring. There is been some progression of low- attenuation fluid/mucus within several of the cystic airspace in the right upper lobe which are new since 12/08/2023 consistent with pneumonia. Unchanged chronic reticulonodular opacities with a few small calcified nodules in the basilar right middle lobe and lingula consistent with sequela of chronic pneumonia. No pleural effusion. Heart size is normal. Atherosclerotic coronary artery calcific lesion. No pericardial effusion. Thoracic aorta is normal in caliber. No pathologically enlarged thoracic lymphadenopathy. 1 cm cyst and 13 x 5 x 3 mm nonobstructing stone at the upper pole the left kidney. There is scattered cortical scarring in the right kidney consistent with sequela of prior infection or infarction. Additional 2 mm nonobstructing stone at the lower pole of the right kidney. Mild thoracic spondylosis with chronic minimal anterior wedging of a few mid and lower thoracic vertebral bodies. Spinal stimulator leads which terminate at the posterior central canal at the level of T6-T7. IMPRESSION: 1. No pulmonary embolism. 2. Severe emphysema with right upper lobe pneumonia. 3. Bilateral nonobstructing nephrolithiasis. 12/19/2019 PULMONARY FUNCTION TESTS Results are reliable and reproducible. Spirometry: FEV1 is 60%, moderately decreased, 1.49 L. FVC is 90% normal. Decreased FEV1% consistent with airflow obstruction. . There is a 14% increase in FEV1 with bronchodilator, 200 ml, which is significant. Lung volumes: Total lung capacity 107% normal. RV/TLC increased 48% and consistent with air trapping. Airway resistance increased 336%. Diffusion: DLCO moderately reduced 35%. Flow volume loop: Scooping of the expiratory limb. IMPRESSION: Moderate obstructive ventilatory impairment with good response to bronchodilator, air trapping, moderate diffusion impairment. This is consistent with COPD. Review of Systems Constitutional: Constitutional: Reports no additional constitutional complaints Eyes: Eyes: Reports no additional eye complaints ENT: Reports system reviewed and no additional complaints, except as documented Cardiovascular: Cardiovascular: Reports no additional cardiovascular complaints Respiratory: Respiratory: Reports no additional respiratory complaints Gastrointestinal: Gastrointestinal: Reports no additional gastrointestinal complaints Musculoskeletal: Musculoskeletal: Reports no additional musculoskeletal complaints Neurologic: Reports system reviewed and no additional complaints, except as documented Psychiatric: Psychiatric: Reports no additional psychiatric complaints Endocrine: Endocrine: Reports no additional endocrine complaints Hematologic/Lymphatic: Hematologic/Lymphatic: Reports no additional hematologic/lymphatic complaints Allergic/Immunologic: Allergic/Immunologic: Reports no additional allergic/immunologic complaints Exam Const: General: cooperative and comfortable Orientation/consciousness: oriented to person, oriented to place and oriented to time Other: cachectic HENMT: Head: normal to inspection Ears: hearing grossly normal bilaterally Eyes: General: appearance normal, both eyes and all related structures Neck: Neck: normal visual inspection Chest: Chest palpation & inspection: normal inspection of the chest Resp: Effort & Inspection: normal respiratory effort and able to speak in co mplete sentences Auscultation: no crackles, no rales, no rhonchi, no wheezes and diminished lung sounds Other: no wheezes Cardio: Jugular venous distension: no JVD GI: Inspection: normal to inspection Skin: General skin exam: normal color Neuro: General: oriented to person, oriented to place and oriented to time Extrem: General: normal to inspection Other: no edema Psych: Appearance: grossly normal Objective Data Vital Signs Vital Signs: Vital Signs - 24 hr 09/06/24 08:48 09/06/24 14:00 09/06/24 14:43 Temperature 36.6 C Pulse Rate 78 79 70 Respiratory Rate 20 18 Blood Pressure 94/54 L Pulse Oximetry 96 Oxygen Delivery Oxygen Flow Rate Fraction of Inspired Oxygen 09/06/24 14:52 09/06/24 15:42 09/06/24 20:00 Temperature Pulse Rate 72 Respiratory Rate 18 Blood Pressure 112/56 L Pulse Oximetry 95 Oxygen Delivery Nasal Cannula Oxygen Flow Rate 2 Fraction of Inspired Oxygen 28 09/06/24 20:21 09/06/24 20:27 09/06/24 20:30 Temperature Pulse Rate 74 76 Respiratory Rate 18 18 Blood Pressure Pulse Oximetry 94 Oxygen Delivery Nasal Cannula Oxygen Flow Rate 1 Fraction of Inspired Oxygen 09/06/24 20:46 09/06/24 22:41 09/06/24 22:41 Temperature 36.5 C Pulse Rate 79 Respiratory Rate 16 Blood Pressure 124/50 L Pulse Oximetry 93 95 Oxygen Delivery BiPAP BiPAP Oxygen Flow Rate 2 Fraction of Inspired Oxygen 09/07/24 02:01 09/07/24 05:31 09/07/24 08:26 Temperature 37.0 C Pulse Rate 78 Respiratory Rate 20 Blood Pressure 138/71 Pulse Oximetry 96 93 Oxygen Delivery BiPAP Nasal Cannula Oxygen Flow Rate 2 Fraction of Inspired Oxygen 09/07/24 08:26 09/07/24 08:28 09/07/24 08:30 Temperature Pulse Rate 83 81 79 Respiratory Rate 16 16 Blood Pressure Pulse Oximetry Oxygen Delivery Oxygen Flow Rate Fraction of Inspired Oxygen Intake/Output Intake/Output: Intake & Output 09/04/24 09/05/24 09/06/24 09/07/24 23:59 23:59 23:59 23:59 Intake Total 858 1217 2820 600 Balance 858 1217 2820 600 Meds/Results Medications: Active Medications Generic Name Dose Route Start Last Admin Trade Name Freq PRN Reason Stop Dose Admin Acetaminophen 650 mg 08/31/24 14:11 09/02/24 05:03 Acetaminophen 325 Mg Tablet PO 650 mg Q6H PRN Administration Mild Pain (1-3) or Fever Albuterol/Ipratropium 3 ml 08/31/24 14:00 09/07/24 08:26 Ipratropium 0.5 Mg/Albuterol Sulfate 2.5 Mg Ampul.Neb 3 Ml INHALATION 3 ml Q6HRT ALBERTA Administration Aspirin 81 mg 09/01/24 09:00 09/06/24 08:47 Aspirin 81 Mg Enteric Tablet PO 81 mg DAILY ALBERTA Administration Benzonatate 100 mg 08/31/24 14:11 09/06/24 22:01 Benzonatate 100 Mg Capsule PO 100 mg TID PRN Administration Cough Cyclobenzaprine HCl 5 mg 08/31/24 21:00 09/07/24 08:28 Cyclobenzaprine Hcl 5 Mg Tablet PO 5 mg Q12H ALBERTA Administration Ferrous Sulfate 325 mg 09/01/24 09:00 09/07/24 08:28 Ferrous Sulfate [address] PO 325 mg DAILY ALBERTA Administration Fluticasone Propionate 1 spray 08/31/24 19:07 09/06/24 22:03 Fluticasone Propionate 0.05% Na Spr 16 Gm Btl (*Bkc) NASAL 1 spray BID PRN Administration nasal congestion Gabapentin 300 mg 08/31/24 21:00 09/07/24 08:26 Gabapentin 300 Mg Capsule PO 300 mg Q12H ALBERTA Administration Guaifenesin 1,200 mg 09/05/24 21:00 09/07/24 08:27 Guaifenesin 12 Hr 600 Mg Tabcr PO 1,200 mg Q12HR ALBERTA Administration Levofloxacin 750 mg 09/08/24 09:00 Levofloxacin 750 Mg Tablet PO Q48H ALBERTA Loratadine 10 mg 09/01/24 09:00 09/07/24 08:27 Loratadine 10 Mg Tablet PO 10 mg DAILY ALBERTA Administration Lovastatin 40 mg 08/31/24 21:00 09/06/24 22:00 Lovastatin 20 Mg Tablet PO 40 mg HS ALBERTA Administration Metoprolol Succinate 25 mg 09/01/24 09:00 09/07/24 08:28 Metoprolol Succinate Ext Rel 25 Mg Tabcr PO 25 mg DAILY ALBERTA Administration Metronidazole 500 mg 09/07/24 07:15 09/07/24 08:27 Metronidazole 500 Mg Tablet PO 500 mg Q8HR ALBERTA Administration Nicotine 1 patch 08/31/24 19:20 09/06/24 08:47 Nicotine (*Pbkc) 21 Mg Patch TRANSDERM Not Given DAILY ALBERTA Oxycodone HCl 10 mg 08/31/24 21:00 09/07/24 08:27 Oxycodone Hcl (*Crx) 10 Mg Tab Sr 12hr PO 10 mg Q12HR ALBERTA Administration Pantoprazole Sodium 40 mg 08/31/24 19:20 09/07/24 08:27 Pantoprazole 40 Mg Tablet PO 40 mg BID ALBERTA Administration Paroxetine HCl 20 mg 09/01/24 09:00 09/07/24 08:27 Paroxetine 20 Mg Tablet PO 20 mg DAILY ALBERTA Administration Senna/Docusate Sodium 1 tab 09/05/24 21:00 09/06/24 22:00 Senna/Docusate Sodium Tablet PO 1 tab HS ALBERTA Administration Solifenacin 5 mg 08/31/24 21:00 09/06/24 21:59 Solifenacin 5 Mg Tablet PO 5 mg HS ALBERTA Administration Vitamin D 5,000 units 09/01/24 09:00 09/07/24 08:27 Cholecalciferol 5,000 Units Tablet PO 5,000 units DAILY ALBERTA Administration Radiology Results: ITS Impressions Chest CTA 08/31/24 11:15 IMPRESSION: 1. No pulmonary embolism. 2. Severe emphysema with right upper lobe pneumonia. 3. Bilateral nonobstructing nephrolithiasis. Modified Barium Swallow 09/01/24 16:33 IMPRESSION: 1: Trace penetration without aspiration. 2: Please refer to speech pathologist report for additional detail. Chest X-Ray 09/06/24 11:13 IMPRESSION: No significant change from previous examination. Opacity in the right upper lobe. Further evaluation advised. Labs Labs: Laboratory Results - last 24 hr 09/06/24 09/07/24 09/07/24 04:49 05:15 06:12 WBC 5.7 RBC 3.87 L Hgb 11.7 L Hct 38.9 MCV 100.5 H MCH 30.2 MCHC 30.1 L RDW 12.7 Plt Count 139 L MPV 9.6 Puncture Site Left radial ABG pH 7.404 ABG pCO2 51.8 H ABG pO2 64.4 L ABG PO2/FiO2 Ratio 2.30 ABG HCO3 31.7 H ABG O2 Saturation 92.4 L ABG O2 Content 17.1 ABG Base Excess 5.7 A-a Gradient 74.1 Oxyhemoglobin 91.5 Total Hemoglobin 13.3 O2 Delivery Device Bipap O2 Liters/Min 2.0 Vent Rate 14 FiO2 28 Expiratory Pressure 5 Inspiratory Pressure 10 10 Sodium 137 Potassium 4.5 Chloride 97 L Carbon Dioxide > 40 H Anion Gap BUN 19 H Creatinine 0.71 Estim Creat Clear Calc 43 Estimated GFR > 60 Glucose 100 Calcium 8.8 Total Bilirubin 0.4 AST 31 ALT 20 Alkaline Phosphatase 86 Total Protein 6.0 L Albumin 3.5
[2024-09-07] MEDS: ASPIRIN 81 MG ENTERIC TABLET PO (09:06)
--- NOTE | 2024-09-07 12:09 | HOMEO2EVAL ---
Evaluation was performed at [facility] Home Oxygen Evaluation RC: Home Oxygen (O2) Evaluation Start: 09/07/24 08:25 Freq: ONCE Status: Active Protocol: RPE Activity Type Activity Date Activity User E-sign Co-sign Detail Recorded Client Recorded Date Recorded By Document 09/07/24 11:00 [email or web address] [email or web address] 09/07/24 12:09 DJO Document 09/07/24 11:05 [email or web address] [email or web address] 09/07/24 12:09 DJO Document 09/07/24 11:05 [email or web address] [email or web address] 09/07/24 12:09 DJO Document 09/07/24 11:10 [email or web address] [email or web address] 09/07/24 12:09 DJO Document 09/07/24 11:20 [email or web address] [email or web address] 09/07/24 12:09 DJO 09/07/24 09/07/24 09/07/24 11:00 11:05 11:05 Home O2 Evaluation [Oxygen] -Test Phase Resting Resting Exercise -Oxygen Delivery Room Air Nasal Cannula Nasal Cannula -Oxygen Flow Rate (L/min) 1 2 [Pulse Oximetry] -Pulse Oximetry (90-100 %) 86 L 88 L 90 [Pulse Rate] -Pulse Rate (60-100 beats/min) 77 74 92 [Evaluation] -Activity Tolerance Good [Charges] -Evaluation Charges O2 Evaluation by Pulmonary 09/07/24 09/07/24 11:10 11:20 Home O2 Evaluation [Oxygen] -Test Phase Resting Resting -Oxygen Delivery Nasal Cannula Nasal Cannula -Oxygen Flow Rate (L/min) 2 2 [Pulse Oximetry] -Pulse Oximetry (90-100 %) 91 91 [Pulse Rate] -Pulse Rate (60-100 beats/min) 79 80 [Evaluation] -Activity Tolerance [Charges] -Evaluation Charges
--- NOTE | 2024-09-07 12:09 | PCRCNOTE ---
HOME O2 EVAL COMPLETE, 2L REST AND ACTIVITY. NO CHANGE FROM PT'S HOME SETTING. SHE HAS HOME O2 WITH [facility]. HER FAMILY WILL BRING IN TANK FOR DISCHARGE.
--- NOTE | 2024-09-07 12:12 | P.DS_ITS ---
DS: Admitting Diagnosis Discharge Date 09/07/2024 <Nato Torres Student - Last Filed: 09/07/24 13:18> Admitting Diagnosis Pneumonia, chronic respiratory failure with hypoxia <Nato ReshmaLuis Felipe Torres - Last Filed: 09/07/24 13:18> DS: Discharge Diagnosis Discharge Diagnosis (1) COPD (chronic obstructive pulmonary disease): Qualifiers: COPD type: unspecified COPD Qualified Code(s): J44.9 - Chronic obstructive pulmonary disease, unspecified <Nato Torres Student - Last Filed: 09/07/24 13:18> Code(s): J44.9 - Chronic obstructive pulmonary disease, unspecified <Nato Torres Student - Last Filed: 09/07/24 13:18> Status: Acute <Nato Torres - Last Filed: 09/07/24 13:18> (2) Chronic respiratory failure with hypercapnia: Code(s): J96.12 - Chronic respiratory failure with hypercapnia <Nato Torres Student - Last Filed: 09/07/24 13:18> Status: Acute <Nato Torres Student - Last Filed: 09/07/24 13:18> Assessment and Plan: Patient with gold grade 2 group B COPD and chronic hypercarbic respiratory failure with a blood gas on 08/02/2024 of 7.45/60/128 on 2 L nasal cannula and a blood gas on 09/06/2023 of 7.34/71/ 63 on 2 L nasal cannula. patient was empirically placed on BiPAP. Patient tells me she could not tolerate the BiPAP rate of 18, pressures 12/6 as pressures as who was blowing too hard and hurt her years and could not sleep with this on. <Nato Torres Student - Last Filed: 09/07/24 13:18> <Huma Brown SHREDDED FILLER CIGAR MAKER MACHINE - Last Filed: 09/07/24 13:32> (3) Severe protein-calorie malnutrition: Code(s): E43 - Unspecified severe protein-calorie malnutrition <Nato Torres Student - Last Filed: 09/07/24 13:18> Status: Acute <Nato Torres Student - Last Filed: 09/07/24 13:18> (4) Oxygen dependent: Code(s): Z99.81 - Dependence on supplemental oxygen <Nato Torres Yoselin - Last Filed: 09/07/24 13:18> Status: Acute <Yoselin Sierra - Last Filed: 09/07/24 13:18> (5) Essential hypertension: Code(s): I10 - Essential (primary) hypertension <Nato Torres Yoselin - Last Filed: 09/07/24 13:18> Status: Chronic <Nato Torres Yoselin - Last Filed: 09/07/24 13:18> DS: Summary Hospital Course Reason for hospitalization: Pneumonia, chronic respiratory failure with hypoxia <Nato Torres Yoselin - Last Filed: 09/07/24 13:18> Hospital Course: - Patient presented to the ED with shortness of breath, chest pain, and lightheadedness. History of ILD, COPD, 55 pack years, chronic respiratory failure on 1-2L (08/31/24) - Patient was 77% saturation on room air at the ED - Previous hospitalization for COPD exacerbation 08/02-08/04 in addition being treated for pneumonia at the end of July. - On exam in ED +rales and wheezing, no acute distress - Cough and shortness of breath began 1 month prior, very little cough production - Chest x-ray and CT showed right upper lobe pneumonia, along with emphysema, multiple calcified pulmonary nodules consistent with sequela of chronic infection, and signs of pulmonary arterial hypertension - Hypoxemia thought to be due to pneumonia - Due to risk factors like COPD and recent antibiotic course, Levaquin every other day was started with the addition of metronidazole (due to risk of aspiration) - Oxygen therapy via nasal canula was utilized, maintaining an o2 saturation over 90% over the stay, progressively weaning her to her baseline of 1-2 L by nasal canula - MRSA negative, sputum culture grew normal shell - DuoNeb therapy for existing COPD was utilized and home medications (including Stiolto Respimat) were continued - History of choking and esophageal dilation was obtained, speech evaluation determined diet ability and exercises. Modified barium swallow study determined trace penetration without aspiration. Outpatient esophageal dilation planned - Metoprolol adequately controlled diagnosed hypertension over the stay - Mechanical DVT prophylaxis utilized over stay - A severe protein-calorie malnutrition was discovered, and patient was supplemented with Ensure Enlive three times daily - CO2 was over 40 on 09/04/24 labs, and arterial blood gasses started being done in the mornings 09/05/24 - IV metronidazole changed to PO three times daily for eventual discharge - Patient started on BiPAP on 09/05 - BiPAP titrated based on ABG and oximetry - Pulmonology was consulted who assisted with BiPAP and other therapies - Recommended continued home BiPAP, initiated process for home BiPAP - By 09/05/24 symptoms had improved greatly, ABG showed CO2 70.7 - By 09/06/24 patient was 90% saturation on 1 L oxygen - 09/07/24 O2 saturation 94% on 2 L oxygen, ABG CO2 progressively improved to 51.8 over course of testing - Pulmonology recommends the following: patient is ready to be discharged from a pulmonary perspective on these pulmonary medications: -Levaquin 750 mg p.o. q.day x7 days. -Flagyl 500 mg p.o. t.i.d. x6 days -Stiolto Respimat 2.5-2.5 at 2 puffs q.a.m.. -Albuterol 2 puffs q.4 hours p.r.n. shortness of breath or wheezing -Albuterol nebulizer 2.5 mg nebs Q 4 hours p.r.n. shortness of breath or wheezing -Guaifenesin 600 mg p.o. b.i.d. -Cornet flutter valve Q 2-4 hours while awake. -Oxygen at rest and with activity per formal home O2 assessment which I have ordered. -When she naps or sleeps BiPAP no rate, pressures 9/4 with 2 L bleed in through [facility]. -Follow up in pulmonology clinic in 4 weeks. Scheduling aware. <Nato Torres, Student - Last Filed: 09/07/24 13:18> - Patient presented to the ED with shortness of breath, chest pain, and lightheadedness. History of ILD, COPD, 55 pack years, chronic respiratory failure on 1-2L (08/31/24) - Patient was 77% saturation on room air at the ED - Previous hospitalization for COPD exacerbation 08/02-08/04 in addition being treated for pneumonia at the end of July. - On exam in ED +rales and wheezing, no acute distress - Cough and shortness of breath began 1 month prior, very little cough production - Chest x-ray and CT showed right upper lobe pneumonia, along with emphysema, multiple calcified pulmonary nodules consistent with sequela of chronic infection, and signs of pulmonary arterial hypertension - Hypoxemia thought to be due to pneumonia - Due to risk factors like COPD and recent antibiotic course, Levaquin every other day was started with the addition of metronidazole (due to risk of aspiration) - Oxygen therapy via nasal canula was utilized, maintaining an o2 saturation over 90% over the stay, progressively weaning her to her baseline of 1-2 L by nasal canula - MRSA negative, sputum culture grew normal shell - DuoNeb therapy for existing COPD was utilized and home medications (including Stiolto Respimat) were continued - History of choking and esophageal dilation was obtained, speech evaluation determined diet ability and exercises. Modified barium swallow study determined trace penetration without aspiration. Outpatient esophageal dilation planned - Metoprolol adequately controlled diagnosed hypertension over the stay - Mechanical DVT prophylaxis utilized over stay - A severe protein-calorie malnutrition was discovered, and patient was supplemented with Ensure Enlive three times daily - CO2 was over 40 on 09/04/24 labs, and arterial blood gasses started being done in the mornings 09/05/24 - IV metronidazole changed to PO three times daily for eventual discharge - Patient started on BiPAP on 09/05 - BiPAP titrated based on ABG and oximetry - Pulmonology was consulted who assisted with BiPAP and other therapies - Recommended continued home BiPAP, initiated process for home BiPAP - By 09/05/24 symptoms had improved greatly, ABG showed CO2 70.7 - By 09/06/24 patient was 90% saturation on 1 L oxygen - 09/07/24 O2 saturation 94% on 2 L oxygen, ABG CO2 progressively improved to 51.8 over course of testing - Pulmonology recommends the following: patient is ready to be discharged from a pulmonary perspective on these pulmonary medications: -Levaquin 750 mg p.o. q.day x7 days- has 1 more dose on 09/07 -Flagyl 500 mg p.o. t.i.d. x6 days- 1 dose tonight 09/07 at 8 pm and 3 more tomorrow 09/08 -Stiolto Respimat 2.5-2.5 at 2 puffs q.a.m.. -Albuterol 2 puffs q.4 hours p.r.n. shortness of breath or wheezing -Albuterol nebulizer 2.5 mg nebs Q 4 hours p.r.n. shortness of breath or wheezing -Guaifenesin 600 mg p.o. b.i.d. -Cornet flutter valve Q 2-4 hours while awake. -Oxygen at rest and with activity per formal home O2 assessment which I have ordered. -When she naps or sleeps BiPAP no rate, pressures 9/4 with 2 L bleed in through [facility]. -Follow up in pulmonology clinic in 4 weeks. Scheduling aware. <Huma Brown APRN - Last Filed: 09/07/24 13:32> Time Spent with Patient Time attestation: Total time spent providing and/or coordinating discharge services: <Yoselin Sierra - Last Filed: 09/07/24 13:18> Exam Narrative: General: frail female in no acute respiratory distress who is nontoxic appearing, sitting up in bed. HEENT: Normocephalic. Atraumatic. Extraocular movement intact. Sclera clear and anicteric. No facial asymmetry. Chest: Lungs are diminished to auscultation bilaterally. No wheezes or crackles. CV: Heart was regular rate and rhythm. Abd: Abdomen was soft. Nontender. Nondistended. Positive bowel sounds. Ext: No clubbing, cyanosis, or edema. DP pulses bilaterally. Neuro: Patient is alert. Speech is clear. <Yoselin Sierra - Last Filed: 09/07/24 13:18> DS: Data Data Completed and Pending Labs on day of discharge: Labs from last 24 hours 09/07/24 09/07/24 09/06/24 06:12 05:15 04:49 WBC 5.7 RBC 3.87 L Hgb 11.7 L Hct 38.9 MCV 100.5 H MCH 30.2 MCHC 30.1 L RDW 12.7 Plt Count 139 L MPV 9.6 Puncture Site Left radial ABG pH 7.404 ABG pCO2 51.8 H ABG pO2 64.4 L ABG PO2/FiO2 Ratio 2.30 ABG HCO3 31.7 H ABG O2 Saturation 92.4 L ABG O2 Content 17.1 ABG Base Excess 5.7 A-a Gradient 74.1 Oxyhemoglobin 91.5 Total Hemoglobin 13.3 O2 Delivery Device Bipap O2 Liters/Min 2.0 Vent Rate 14 FiO2 28 Expiratory Pressure 5 Inspiratory Pressure 10 10 Sodium 137 Potassium 4.5 Chloride 97 L Carbon Dioxide > 40 H Anion Gap BUN 19 H Creatinine 0.71 Estim Creat Clear Calc 43 Estimated GFR > 60 Glucose 100 Calcium 8.8 Total Bilirubin 0.4 AST 31 ALT 20 Alkaline Phosphatase 86 Total Protein 6.0 L Albumin 3.5 <Yoselin Sierra - Last Filed: 09/07/24 13:18> Discharge Plan Discharge Attending physician on discharge: Raya Haddad <Yoselin Sierra - Last Filed: 09/07/24 13:18> Raya Haddad <Huma Brown APRN - Last Filed: 09/07/24 13:32> Consulting providers: Noble Newman <Nato Torres Student - Last Filed: 09/07/24 13:18> Discharging Clinician: Lucy Watson <Nato Torres Student - Last Filed: 09/07/24 13:18> Lucy Watson <Huma Brown SHREDDED FILLER CIGAR MAKER MACHINE - Last Filed: 09/07/24 13:32> Anticipated Discharge Date/Time: 09/07/24 15:36 <Nato Torres Student - Last Filed: 09/07/24 13:18> Patient Disposition: Home <Yoselin Sierra - Last Filed: 09/07/24 13:18> Activity: as tolerated <Yoselin Sierra - Last Filed: 09/07/24 13:18> as tolerated <Huma Brown SHREDDED FILLER [employer]IG[employer] MAKER MACHINE - Last Filed: 09/07/24 13:32> Diet: as tolerated and heart healthy <Yoselin Sierra - Last Filed: 09/07/24 13:18> as tolerated and heart healthy <Huma Brown SHREDDED FILLER [employer]IG[employer] MAKER MACHINE - Last Filed: 09/07/24 13:32> Discharge Instructions: -Levaquin 750 mg has 1 more dose on 09/07 -Flagyl 500 mg- 1 dose tonight 09/07 at 8 pm and 3 more tomorrow 09/08 -Stiolto Respimat 2.5-2.5 at 2 puffs q.a.m.. -Albuterol 2 puffs q.4 hours p.r.n. shortness of breath or wheezing -Albuterol nebulizer 2.5 mg nebs Q 4 hours p.r.n. shortness of breath or wheezing -Guaifenesin 600 mg p.o. twice a day -Cornet flutter valve Q 2-4 hours while awake. -Oxygen at rest and with activity per formal home O2 assessment -Follow up in pulmonology clinic in 4 weeks. Scheduling aware. Discharge disposition: Patient admitted to the hospital for hypoxia and diagnosed with pneumonia During admission patient was weaned back to baseline 1-2L NC Continue oxygen supplementation as prescribed Continue medications even if feeling better to complete the course Claudia and cristobal Attached is information on these medications Discussed esophageal dilation with Dr. Josue Call for appointment in outpatient setting Monitor blood pressures Take caution while standing, rising, or moving Change positions slowly taking a break between each position change If you standing feel dizzy sit back down and take a break Encouraged to continue with yearly vaccinations Return to the emergency department if he developed sudden shortness of breath, chest pain, nausea, vomiting, upset stomach or intractable diarrhea Return to the emergency department if you develop fever greater than 101.5 Follow-up with the primary care physician within 1-2 weeks Follow-up with pulmonology within 4 weeks Thank you for choosing [facility] for your healthcare needs <Nato Torres, Student - Last Filed: 09/07/24 13:18> Patient Instructions: Antibiotic Form, Metronidazole (By mouth), Levofloxacin (By mouth), Using Oxygen at Home (DC), Pneumonia (DC) <Nato Torres Student - Last Filed: 09/07/24 13:18> Patient Language: Armenian <Nato Torres Student - Last Filed: 09/07/24 13:18> Stand Alone Forms: General Discharge Information <Yoselin Sierra - Last Filed: 09/07/24 13:18> Follow-up/Referrals: Grace Mondragon DO [Primary Care Provider] - 1 Week Channing Ryan MD [Physician] - Call for Appointment <Yoselin Sierra - Last Filed: 09/07/24 13:18> Discharge Medications: New metronidazole 500 mg Tablet 500 mg PO Q8HR Qty: 4 0RF Rx Instructions: take a dose tonight, and total three doses tomorrow-1 tab every 8 h levofloxacin 750 mg tablet 750 mg PO DAILY Qty: 1 0RF Rx Instructions: take one /8 to complete the course Continued aspirin [Adult Aspirin Regimen] 81 mg tablet,delayed release (DR/EC) 81 mg PO DAILY cyclobenzaprine 5 mg tablet 5 mg PO Q12H solifenacin [Vesicare] 10 mg tablet 5 mg PO HS albuterol sulfate 2.5 mg /3 mL (0.083 %) solution for nebulization 2.5 mg inhalation Q4-6H PRN (Reason: shortness of breath or wheezing) Qty: 180 3RF Xtampza ER 13.5 mg cap,sprinkl,ER12hr(DONT CRUSH) 13.5 mg PO Q12H albuterol sulfate 90 mcg/actuation HFA aerosol inhaler See Rx Instructions .ROUTE .COMPLEX PRN (Reason: Shortness Of Breath Or Wheezing) Rx Instructions: INHALE 1 PUFF BY MOUTH EVERY 4 HOURS NEEDED FOR SHORTNESS OF BREATH nicotine 21 mg/24 hr Patch 24 Hour 1 patch TRANSDERMAL DAILY lovastatin 40 mg tablet 40 mg PO HS loratadine 10 mg Tablet 10 mg PO DAILY cholecalciferol (vitamin D3) [Vitamin D3] 125 mcg (5,000 unit) Tablet 125 mcg PO DAILY guaifenesin [Mucinex] 600 mg Tablet Extended Release 12hr 600 mg PO Q12H metoprolol succinate 25 mg tablet extended release 24 hr See Rx Instructions .ROUTE .COMPLEX Qty: 90 2RF Dose Instruction: TAKE 1 TABLET BY MOUTH DAILY Rx Instructions: TAKE 1 TABLET BY MOUTH DAILY- AM omeprazole 40 mg capsule,delayed release(DR/EC) 40 mg PO DAILY Qty: 90 1RF Rx Instructions: TAKE 1 CAPSULE BY MOUTH DAILY paroxetine HCl 20 mg tablet See Rx Instructions .ROUTE .COMPLEX Qty: 90 1RF Dose Instruction: TAKE 1 TABLET BY MOUTH DAILY Rx Instructions: TAKE 1 TABLET BY MOUTH DAILY Stiolto Respimat 2.5-2.5 mcg/actuation mist See Rx Instructions .ROUTE .COMPLEX Qty: 4 11RF Dose Instruction: INHALE 2 PUFFS BY MOUTH DAILY Rx Instructions: INHALE 2 PUFFS BY MOUTH DAILY fluticasone propionate [Flonase Allergy Relief] 50 mcg/actuation spray,suspension 1 spray intranasal BID PRN (Reason: nasal congestion) Qty: 16 3RF Rx Instructions: administer into each nostril ferrous sulfate [FeroSul] 325 mg (65 mg iron) tablet See Rx Instructions .ROUTE .COMPLEX Qty: 30 3RF Dose Instruction: TAKE 1 TABLET BY MOUTH EVERY MORNING Rx Instructions: TAKE 1 TABLET BY MOUTH EVERY MORNING gabapentin 300 mg capsule 300 mg PO Q12H Qty: 180 0RF <Nato Torres, Student - Last Filed: 09/07/24 13:18> Date of admission: 09/01/24 13:57 <Nato Torres, Student - Last Filed: 09/07/24 13:18> Primary Care Provider: Grace Mondragon <Nato Torres, Student - Last Filed: 09/07/24 13:18> Admitting Provider: Brenda Rod <Nato Torres, Student - Last Filed: 09/07/24 13:18> Attending physician on admission: Lucy Watson <Nato Torres, Student - Last Filed: 09/07/24 13:18> Condition: Stable <Nato Torres, Student - Last Filed: 09/07/24 13:18> Quality VTE Prophylaxis VTE prophylaxis: mechanical ordered <Nato Torres Student - Last Filed: 09/07/24 13:18> Hospitalist MIPS Heart Failure (Exclusion) Patient has history of Heart Transplant or Left Ventricular Assistive Device?: No <Huma Brown APRN - Last Filed: 09/07/24 13:32> IF YES, STOP HERE: Heart Failure (Qualifier) Patient has current or prior documentation of LVEF less than or equal to 40%, or mod/servere depressed LVSF?: No <Huma Brown, SHREDDED FILLER CIG[employer] MAKER MACHINE - Last Filed: 09/07/24 13:32> IF NO, STOP HERE:
== END 2024-09-07 14:05 | disposition home or self-care (01) | DRG 193 ==
LOC: ANHED 14:18 → ANH3MEDSUR 15:06
PROVIDERS: Internal Medicine Pulmonary Disease; Nurse Practitioner Acute Care; Physician Assistant; Student in an Organized Health Care Education/Training Program; Admitting Provider Hospitalist; Emergency Provider Registered Nurse; PCP Family Medicine; Visit Provider Nurse Practitioner
DX: J18.9 Pneumonia, unspecified organism (principal); E43 Unspecified severe protein-calorie malnutrition; J44.0 Chronic obstructive pulmonary disease with (acute) lower respiratory infection; J96.12 Chronic respiratory failure with hypercapnia; J96.11 Chronic respiratory failure with hypoxia; Z68.1 Body mass index [BMI] 19.9 or less, adult; I11.0 Hypertensive heart disease with heart failure; I50.9 Heart failure, unspecified; D50.9 Iron deficiency anemia, unspecified; E78.5 Hyperlipidemia, unspecified; E78.00 Pure hypercholesterolemia, unspecified; K21.9 Gastro-esophageal reflux disease without esophagitis; K58.9 Irritable bowel syndrome, unspecified; R13.10 Dysphagia, unspecified; M79.7 Fibromyalgia; M85.80 Other specified disorders of bone density and structure, unspecified site; M19.90 Unspecified osteoarthritis, unspecified site; M54.16 Radiculopathy, lumbar region; M35.9 Systemic involvement of connective tissue, unspecified; G25.81 Restless legs syndrome; G35 Multiple sclerosis; F41.9 Anxiety disorder, unspecified; F17.210 Nicotine dependence, cigarettes, uncomplicated; Z20.822 Contact with and (suspected) exposure to COVID-19; Z79.82 Long term (current) use of aspirin; Z99.81 Dependence on supplemental oxygen; Z96.82 Presence of neurostimulator; Z87.442 Personal history of urinary calculi; Z80.0 Family history of malignant neoplasm of digestive organs; Z86.0101 Personal history of adenomatous and serrated colon polyps; Z79.899 Other long term (current) drug therapy
CPT/HCPCS: 36415; 36600; 71045; 71046; 71275; 80048; 80053; 82375; 82805; 83050; 83605; 83735; 83880; 84484; 85018; 85025; 85027; 85055; 85380; 85610; 85652; 85730; 87070; 87205; 87637; 87641; 92526; 92610; 92611; 93005; 94003; 94618; 94640; 94660; 94667; 94762; 96361; 96365; 96366; 99285; A9270; G0378; J1836; J1956; J7030; J7050; Q9967

== ENCOUNTER 2024-09-20 01:16 | Day surgery (SDC) | payer MEDICARE, MEDICAID, SELFPAY ==
[2024-09-14 14:24] VITALS: BMI 14.6
--- OUTSIDE RECORDS SUMMARY | 2024-09-20 01:20 | XMS_ITS | Referral Summary ---
Author Organization [facility] Address [address] [place] [address] Care Team Providers Care Bailiff Name Role Phone Tommy King DO Primary Care Provider [phone] Allergies Active Allergy Reactions Criticality Noted Date [...] on file Legal Sex Female 4:04 AM CASTINGS TRIMMER Gender Identity Not on file Sexual Orientation Not on file Occupation Industry Job Start Date Job End Date on [employer] Not on file Not on file Not [...] Treatment Not on file [place] [address] MEDICARE IDPA MEDICARE Care Teams Bailiff Relationship Specialty Start Date End Date Tommy King DO PCP - General Internal Medicine 09/11/20
--- OUTSIDE RECORDS SUMMARY | 2024-09-20 01:20 | XMS_ITS | Clinical Summary ---
Author Organization [facility] Address [address] [place] [address] Care Team Providers Care Frame Polisher Name Role Phone West Pino MD Unavailable [phone] Yvan Jaime MD Unavailable [phone] None, Provider MD Primary Care Provider Unavaila [...] Gender Identity Female 05/09/2021 3:57 PM FIRE PREVENTION RESEARCH ENGINEER Sexual Orientation Straight 05/09/2021 3: 57 PM FIRE PREVENTION RESEARCH ENGINEER Last Filed Vital Signs Vital Sign Reading Time Taken Comments Blood Pressure 106/60 03/28/2022 9:13 AM FIRE PREVENTION RESEARCH ENGINEER Pulse 80 03/28/2022 9:13 AM FIRE PREVENTION RESEARCH ENGINEER Temperature 36.1 C (97 F) 03/28/2022 9:13 AM FIRE PREVENTION RESEARCH ENGINEER Respiratory Rate 20 03/28/2022 9:13 AM FIRE PREVENTION RESEARCH ENGINEER Oxygen Saturation 94% 03/28/2022 9:13 AM FIRE PREVENTION RESEARCH ENGINEER Inhaled Oxygen Concentration - - Weight 52.6 kg (116 lb) 03/28/2022 9:13 AM FIRE PREVENTION RESEARCH ENGINEER Height 167.6 cm (5' 6 ) 03/28/2022 9:13 AM FIRE PREVENTION RESEARCH ENGINEER Body Mass Index 18.72 03/28/2022 9:13 AM FIRE PREVENTION RESEARCH ENGINEER Plan of Treatment Health Maintenance Due [...] this topic Medical Devices Implanted Type Area Lens Generator Device Identifier Shelf Expiration Date Model / Serial / Lot Stent [place] 6fr X 24cm - [id number] Implanted:Qty : 1 on 05/17/2019 by West Pino MD at [facility] Stent Left: Ureter [employer] 05/12/2023 [id number] / / [id number] Stent [place] 6fr X 24cm - [id number] Implanted:Qty : 1 on 05/17/2019 by West Pino MD at [facility] Stent Right: Ureter [employer] 05/12/2023 [id number] / / [id number] Stent Ureteral Pigtail 6fr 24cm Crv Taper Tip - [id number] Implanted:Qty : 1 on 02/26/2021 by West Pino MD at [facility] Stent Left: Ureter [employer] [id number] 11/28/2023 [id number] Procedures Procedure Name Priority Date/Time Associated Diagnosis Comments MG SCREENING PAIGE DIGI Routine 04/16/2015 3:06 PM FIRE PREVENTION RESEARCH ENGINEER from Last 3 Months or Most Recently Relevant to Health Maintenance Results * MG SCREENING PAIGE DIGI (04/16/2015 3:06 PM FIRE PREVENTION RESEARCH ENGINEER) Anatomical Region Laterality Modality Breast Bilateral Mammography 04/16/2015 3:06 PM FIRE PREVENTION RESEARCH ENGINEER 04/16/2015 3:06 PM FIRE PREVENTION RESEARCH ENGINEER Narrative 04/16/2015 3:24 PM FIRE PREVENTION RESEARCH ENGINEER MELYSSA MCCALL ADMIT/SERVICE DATE: 04/16/15 ACCT: [id number] DISCHARGE DATE: : 1955 SEX: F ORD SITE: [facility] PT TYPE: REG CLI ORDERING MD: MANE RAMIREZ MD STUDY DATE REPORT # ORDER # EXT ORDER ID 04/16/15 [id number] PROC CODE: SCMAMDGB PROCEDURE DESCRIPTION: MG SCREEN [...] - 02/26/2018 MELYSSA MCCALL ADMIT/SERVICE DATE:04/16/15 ACCT: [id number] DISCHARGE DATE: : 1955 SEX: F ORD SITE: [facility] PT TYPE: REG CLI ORDERING MD:MANE RAMIREZ MD STUDY DATE REPORT # ORDER # EXT ORDER ID 04/16/15 [id number] PROC CODE: SCMAMDGB PROCEDURE DESCRIPTION: MG SCREEN [...] 1:01 PM 02/26/2021 3:43 PM Care Teams Frame Polisher Relationship Specialty Start Date End Date None, ProviderMD PCP - General UNKNOWN PHYSICIAN SPECIALTY 03/28/22 West Pino MD UROLOGY 05/03/19 Yvan Jaime MD [address] [place] [id number] Surgeon NEUROLOGICAL SURGERY 05/03/19
--- OUTSIDE RECORDS SUMMARY | 2024-09-20 01:20 | XMS_ITS | Continuity of Care Document ---
Author Organization [facility] Address [address] [place] [address] Phone Care Team Providers Care Clinical Operations Consultant Name Role Phone Sherif Doyle MD [...] qd - Active Miacalcin 200 unit/Actuation Nasal [place] Aerosol 1 spray each nostril qd - [...] on Encounter [facility], [address], [id number], [place] tel:[phone] [facility] No Information 6 Vivek Gorman. [address] [place] [address], [id number] , [place]. tel:[phone] Offic/outpt E&m Estab Minor 10 [facility], [address] [address], [place], [place], [id number], [place] tel:[phone] [facility] No Information 6 José Luis Sullivan. [address] [facility], [address], [id number] , [place]. tel:[phone] Referring Provider: Nate Ordonez V, [address], [address] . tel:[phone] [facility], [address], [place], [place], [address], [place] tel:[phone] [facility] No Information 6 José Luis Sullivan. [address], [place], [place], [id number] , [place]. tel: [phone] Referring Provider: Nate Ordonez V, [address], [place], [address] . tel:[phone] [facility], [address], [place], [place], [address], [place] tel:[phone] [facility] No Information 6 José Luis Sullivan. [address], [address], [place], [id number] , [place]. tel: [phone] Referring Provider: Nate Ordonez V, [address], [place], [address] . tel:[phone] Offic/outpt E&m Estab Low-mod [facility], [address], [place], [place], [id number], [place] tel:[phone] [facility] No Information 6 José Luis Sullivan. [address], [address], [place], [place], [address] , [place]. tel:[phone] Referring Provider: Nate Ordonez V, [address], [place], [address] . tel:[phone] Offic/outpt E&m Estab Low-mod [facility], [address], [place], [place], [address], [place] tel:[phone] [facility] No Information 6 José Luis Sullivan. [address], [address], [place], [place], [address] , [place]. tel: [phone] Referring Provider: Nate Ordonez V, [address], [place], [address] . tel:[phone] Offic/outpt E&m Estab Minor 10 [facility], [address], [place], [place], [address], [place] tel:[phone] [facility] No Information May-0 9-200 6 José Luis Sullivan. [address], [address], [place], [place], [address] , [place]. tel:[phone] Referring Provider: Nate Ordonez V, [address], [place], [address] . tel:[phone] [facility], [address], [place], [id number], [place] tel:[phone] [facility] No Information May-0 5-200 6 José Luis Sullivan. [address], [address], [place], [place], [address] , [place]. tel:[phone] Referring Provider: Nate Ordonez V, [address], [place], [address] . tel:[phone] [facility], [address], [place], [place], [address], [place] tel:[phone] [facility] No Information May-0 2-200 6 José Luis Sullivan. [address], [address], [place], [place], [address] , [place]. tel:[phone] Referring Provider: Nate Ordonez V, [address], [place], [address] . tel:[phone] [facility], [address], [place], [place], [address], [place] tel:[phone] [facility] No Information Apr-2 8-200 6 Ordonez Nate. [address], [address], [place], [place], [id number] , [place]. tel:[phone] Referring Provider: Nate Ordonez V, [address], [place], [address] . tel:[phone] [facility], [address], [place], [place], [address], [place] tel:[phone] [facility] No Information Aug- 5-200 6 José Luis Sullivan. [address], [place], [id number] , [place]. tel:[phone] Referring Provider: Nate Ordonez V, [address], [place], [address] . tel:[phone] [facility], [address], [place], [address], [place] tel:[phone] [facility] No Information 6 José Luis Sullivan. [address], [address], [place], [place], [address] , [place]. tel:[phone] Referring Provider: Nate Ordonez V, [address], [place], [address] . tel:[phone] [facility], [address], [place], [place], [address], [place] tel:[phone] [facility] No Information 200 6 José Luis Sullivan. [address], [address], [place], [place], [address] , [place]. tel:[phone] Referring Provider: Nate Ordonez V, [address], [place], [address] . tel:[phone] Offic Cons New/estab Mod-hi 60 [facility], [address], [place], [address], [place] tel:[phone] [facility] No Information 8-200 6 José Luis Sullivan. [address], [facility] [address], [place], [id number] , [place]. tel:[phone] Referring Provider: Nicho Goldstein MD B, [address] [place] [place], [address]. tel:[phone] Family History Family Member Type Diagnosis Age At Onset Gen Fam Hx Problem (finding) Cancer Gen Fam Hx Problem (finding) Stroke Payers Payer name Insurance type Covered green party ID Authorstepha jevon(s) [employer] Of [facility] [id number] Social History Type Description Quantity Date Captured [...]
--- OUTSIDE RECORDS SUMMARY | 2024-09-20 01:20 | XMS_ITS | Data Portability ---
Author Organization [facility]BAL[facility] Claudia POLLOCK Address [address] [place] [address] Assessment No assessment recorded. Plan of Treatment Reminders Order Date Submit Date Provider Last Modified By Organization Details Last Modified Time Details Appointments None recorded. Lab rapid strep group A, throat 2016 017 [facility] In-Office Order, Internal Use Only DO Not Attach Compendium DO Not Attach Compendium, Do Not Delete/merge, [id number] 7 17:07:24 HbA1c (hemoglobi n A1c), blood 2015 016 DBA_PATCH_ [id number] [facility], [address] [facility] [address], [address], [place], [address], 6 04:31:39 glucose tolerance test, post-75G, 3 specimens 2015 016 DBA_PATCH_ [id number] [facility], [address] [facility] [address] [address], [address], [place], [address], 6 04:31:39 unlisted lab - vitamin D, 25-hydroxy , total - es[facility]ix 2015 016 PRATIMA [facility], [address], [address], [place], [address], 6 13:11:27 CBC w/ manual diff 2015 016 [email or web address] [facility], [address], [address], [place], [address], 6 12:15:19 CMP, serum or plasma 2015 016 [email or web address] [facility], [address] [facility] [address], [address], [place], [address], 6 12:15:19 lipid panel, serum 2015 016 [email or web address] [facility], [address] [facility] [address], [address], [place], [address], 6 12:15:19 unlisted lab - compliance drug analysis, ur 2015 016 PRATIMA [facility], [address] [facility], [address], [place], [address], 6 15:09:40 Referral laryngolog y referral - Please call patient to schedule 2015 016 [email or web address] Not available 7 07:56:45 audiologis t referral - Please call patient to schedule 2015 [email or web address], [place], [address], 7 13:04:47 plastic surgeon referral - Rt thigh lump/ PATIENT TO SCHEDULE 2015 016 [email or web address] Not available 7 13:17:06 gastroente rologist referral - P:leae call patient to schedujle 2015 016 [email or web address] Jack Griffin MD, [facility] [place], [address], 7 10:10:31 Procedures colonoscop y screening (PROC) 2015 016 DBA_PATCH_ [id number] Not available 6 04:32:07 Surgeries None recorded. Imaging MAMMO, screening, digital, bilateral 2015 016 DBA_PATCH_ [id number] [facility] ([facility]), [address] [place], [address], 6 04:31:59 MAMMO, screening, bilateral 2015 016 [facility] ([facility] Sched[facility]), [address] [place], [address], 7 10:29:25 bone density, dual photon absorptiom etry 2015 016 [facility] ([facility] Call Scheduling), [address] [place], [address], 6 15:34:00 Medication Orders sertraline 100 mg tablet 2016 017 [facility] [employer] [facility] #[id number], [address], [place], [id number], 7 17:07:30 nystatin 100,000 unit/mL oral suspension 2016 017 [facility] [employer] [facility] #97735, [address] [facility], [place], [place], [id number], 7 17:07:31 calcium 600 mg (as carbonate) -vitamin D3 10 mcg (400 unit) capsule 2016 017 [facility], [address] [facility], [place], [place], [id number], 7 16:54:36 Ventolin HFA 90 mcg/actuat ion aerosol inhaler 2016 017 INTERFACE [employer] [facility] #23561, [address] [facility], [place], [place], [id number], 7 16:22:52 Symbicort 160 mcg-4.5 mcg/actuat ion HFA aerosol inhaler 2016 017 [facility], [address] , [place], [place], [id number], 7 16:22:51 albuterol sulfate 2.5 mg/3 mL (0.083 %) solution for nebulizati on 2016 017 INTERFACE [facility] #42728, [address], [place], [place], [id number], 7 16:22:52 calcium 600 mg (as carbonate) -vitamin D3 10 mcg (400 unit) capsule 2015 016 DBA_PATCH_ [id number] [facility] #91960, [address], [place], [place], [id number], 6 04:31:45 Patient TargetsNo targets recorded. Patient Instructions Encounter Date Encounter Id Patient Instructions Last Modified By Organization Details Last Modified Time 01/21/2016 [id number] deciding about using medicines to quit smoking [facility] Not available 01/22/2016 15:28:08 Quitting Tobacco : Care Instructions [facility] Not available 01/22/2016 15:28:09 chronic obstructive pulmonary disease (COPD): care instructions [facility] Not available 01/22/2016 15:28:08 learning about copd and how to prevent lung infections [facility] Not available 01/22/2016 15:28:08 03/21/2016 [id number] mammogram: about this test [facility] Not available 03/21/2016 17:27:52 deciding about using medicines to quit smoking [facility] Not available 03/21/2016 17:27:52 Quitting Tobacco : Care Instructions [facility] Not available 03/21/2016 17:27:52 chronic obstructive pulmonary disease (COPD): care instructions [facility] Not available 03/21/2016 17:27:52 learning about copd and how to prevent lung infections [facility] Not available 03/21/2016 17:27:52 learning about high blood sugar [facility] Not available 03/21/2016 17:31:23 05/28/2016 [id number] osteoporosis: care instructions [facility] Not available 05/28/2016 16:22:51 deciding about using medicines to quit smoking [email or web address] Not available 05/28/2016 16:22:51 Quitting Tobacco : Care Instructions [facility] Not available 05/28/2016 16:22:51 chronic obstructive pulmonary disease (COPD): care instructions [facility] Not available 05/28/2016 16:22:51 learning about copd and how to prevent lung infections [facility] Not available 05/28/2016 16:22:51 07/01/2016 [id number] deciding about using medicines to quit smoking [facility] Not available 07/02/2016 09:50:36 Quitting Tobacco : Care Instructions [facility] Not available 07/02/2016 09:50:36 chronic obstructive pulmonary disease (COPD): care instructions [facility] Not available 07/02/2016 09:50:36 learning about copd and how to prevent lung infections [facility] Not available 07/02/2016 09:50:36 11/24/2016 [id number] deciding about using medicines to quit smoking [email or web address] Not available 11/25/2016 11:07:05 Quitting Tobacco : Care Instructions Not available 11/25/2016 11:07:05 chronic obstructive pulmonary disease (COPD): care instructions [email or web address] Not available 11/25/2016 11:07:05 learning about copd and how to prevent lung infections Not available 11/25/2016 11:07:05 Reason for Referral Plastic Surgeon Referral for Mass of skin Right thigh lump. Rt thigh lump/ PATIENT TO SCHEDULE Referring Physician: Milena Dos Santos Internal Medicine, Encounter Date: 03/21/2016 [facility] Referring Physician: Milena Dos Santos Internal Medicine, Encounter Date: 03/21/2016 Laryngology Referral for Hea ring disorder Please call patient to schedule Referring Physician: Milena Dos Santos Internal Medicine, Encounter Date: 03/21/2016 Dental Hygiene Teacher Referral for Hea ring disorder Please call [...] DO Not Attach Compendium, Do Not Delete/merge, [id number] 11/24/2016 16:23:51 01/21/20 16 01/26/2016 drug scree [...] RIPTI ON MEDIC [place]ION . [place] [address] NG/MG CREAT POTEN TIAL SOURC ES OF [...] TAYLOR CONSU LTATI ON, PLEAS E CALL [phone]. ===== ===== ===== ===== ===== ===== ===== ===== ===== ===== ===== ===== ===== === Not Available [facility] [address], , [address], 01/26/2016 15:09:40 01/21/20 16 01/26/2016 drug scree n, urine pdf . Not Available [facility] [address] [place], , [address], 01/26/2016 15:09:40 02/04/20 16 02/05/2016 CBC w/ manua l diff WBC 5.7 x10e3 /uL 3.4-10 .8 Not Available [facility] ([facility]) [address] [place] [address], [address], 02/07/2016 13:11:25 02/04/20 16 02/05/2016 CBC w/ manua l diff RBC 4.19 x10e6 /uL 3.77-5 .28 Not Available [facility] ([facility]) [address] [place], [address], 02/07/2016 13:11:25 02/04/20 16 02/05/2016 CBC w/ manua l diff hemoglobin 12.7 g/dL 11.1-1 5.9 Not Available [facility] ([facility]) [address] [place] [address], [address], 02/07/2016 13:11:25 02/04/20 16 02/05/2016 CBC w/ manua l diff hematocrit 38.8 % 34.0-4 6.6 Not Available [facility] ([facility]) [facility] [place], [address], 02/07/2016 13:11:25 02/04/20 16 02/05/2016 CBC w/ manua l diff MCV 93 fL 79-97 Not Available [facility] ([facility]) [facility] [place], [address], 02/07/2016 13:11:25 10/03/20 16 02/05/2016 CBC w/ manua l diff MCH 30.3 pg 26.6-3 3.0 Not Available [facility] ([facility]) [address] [place], [address], 02/07/2016 13:11:25 02/04/20 16 02/05/2016 CBC w/ manua l diff MCHC 32.7 g/dL 31.5-3 5.7 Not Available [facility] ([facility]) [address] [place], [address], 02/07/2016 13:11:25 02/04/20 16 02/05/2016 CBC w/ manua l diff RDW 14.2 % 12.3-1 5.4 Not Available [facility] ([facility]) [address] [place], [address], 02/07/2016 13:11:25 02/04/20 16 02/05/2016 CBC w/ manua l diff platelets 148 x10e3 /uL 150-37 9 below low normal Not Available [facility] ([facility]) [address] [place], [address], 02/07/2016 13:11:25 02/04/20 16 02/05/2016 CBC w/ manua l diff neutrophils 75 % Not Available [facility] ([facility]) [address] [place], [address], 02/07/2016 13:11:25 02/04/20 16 02/05/2016 CBC w/ manua l diff lymphs 16 % Not Available [facility] ([facility]) [address] [place], [address], 02/07/2016 13:11:25 02/04/20 16 02/05/2016 CBC w/ manua l diff monocytes 8 % Not Available [facility] ([facility]) [address] [place], [address], 02/07/2016 13:11:25 02/04/20 16 02/05/2016 CBC w/ manua l diff eos 1 % Not Available [facility] ([facility]) [address] [place], [address], 02/07/2016 13:11:25 02/04/20 16 02/05/2016 CBC w/ manua l diff basos 0 % Not Available [facility] ([facility]) [address] [place], [address], 02/07/2016 13:11:25 02/04/20 16 02/05/2016 CBC w/ manua l diff immature cells CUSTOM GRINDER Not Available [facility] ([facility]) [address] [place], [address], 02/07/2016 13:11:25 02/04/20 16 02/05/2016 CBC w/ manua l diff neutrophils absolute 4.3 x10e3 /uL 1.4-7. 0 Not Available [facility] ([facility]) [address] [place], [address], 02/07/2016 13:11:25 02/04/20 16 02/05/2016 CBC w/ manua l diff lymphs (absolute) 0.9 x10e3 /uL 0.7-3. 1 Not Available [facility] ([facility]) [address] [place], [address], 02/07/2016 13:11:25 02/04/20 16 02/05/2016 CBC w/ manua l diff monocytes(ab solute) 0.5 x10e3 /uL 0.1-0. 9 Not Available [facility] ([facility]) [facility] [place], [address], 02/07/2016 13:11:25 02/04/20 16 02/05/2016 CBC w/ manua l diff eos (absolute value) 0.1 x10e3 /uL 0.0-0. 4 Not Available [facility] ([facility]) [address] [facility], [place], [address], 02/07/2016 13:11:25 02/04/20 16 02/05/2016 CBC w/ manua l diff baso(absolut e) 0.0 x10e3 /uL 0.0-0. 2 Not Available [facility] ([facility]) [address] [facility], [place], [address], 02/07/2016 13:11:25 02/04/20 16 02/05/2016 CBC w/ manua l diff NRBC CUSTOM GRINDER Not Available [facility] ([facility]) [address] [facility], [place], [address], 02/07/2016 13:11:25 02/04/20 16 02/05/2016 CBC w/ manua l diff differential comment CUSTOM GRINDER Not Available [facility] ([facility]) [address] [facility] [place], [address], 02/07/2016 13:11:25 02/04/20 16 02/05/2016 CBC w/ manua l diff RBC comment RBC'S APPEAR NORMAL . normal Not Available [facility] ([facility]) [address] [facility], [place], [address], 02/07/2016 13:11:25 02/04/20 16 02/05/2016 CBC w/ manua l diff platelet comment ADEQUA TE adequa te Not Available [facility] ([facility]) [address] [facility], [place], [address], 02/07/2016 13:11:25 02/04/20 16 02/05/2016 CMP, serum or plasm a glucose, serum 115 mg/dL 65-99 above high normal Not Available [facility] ([facility]) [address] [facility], [place], [address], 02/07/2016 13:11:26 02/04/20 16 02/05/2016 CMP, serum or plasm a hemoglobin A1C 5.9 % 4.8-5. 6 above high normal PRE-D IABET ES: 5.7 - 6.4 DIABE ROSE: >6.4 GLYCE ARON CONTR OL FOR ADULT S WITH DIABE ROSE: <7.0 Not Available [facility] ([facility]) [address] [facility], [place], [address], 02/07/2016 13:11:26 02/04/20 16 02/05/2016 CMP, serum or plasm a BUN 8 mg/dL 8-27 Not Available [facility] ([facility]) [address] [place], [address], 02/07/2016 13:11:26 02/04/20 16 02/05/2016 CMP, serum or plasm a creatinine, serum 0.85 mg/dL 0.57-1 .00 Not Available [facility] ([facility]) [address] [place], [address], 02/07/2016 13:11:26 02/04/20 16 02/05/2016 CMP, serum or plasm a eGFR if nonafricn AM 74 mL/mi n/1.7 3 >59 Not Available [facility] ([facility]) [address] [place], [address], 02/07/2016 13:11:26 02/04/20 16 02/05/2016 CMP, serum or plasm a eGFR if africn AM 85 mL/mi n/1.7 3 >59 Not Available [facility] ([facility]) [address] [place], [address], 02/07/2016 13:11:26 02/04/20 16 02/05/2016 CMP, serum or plasm a BUN/creatini ne ratio 9 11-26 below low normal Not Available [facility] ([facility]) [address] [place] [address], [address], 02/07/2016 13:11:26 02/04/20 16 02/05/2016 CMP, serum or plasm a sodium, serum 142 mmol/ L 134-14 4 EFF ECTIV E OCTOB ER 2015 THE REFER ENCE INTER NIRMALA FOR SARAH Rodriguez, SERUM WILL BE LYON ING TO: 136 - 144 Not Available [facility] ([facility]) [address] [place], [address], 02/07/2016 13:11:26 02/04/20 16 02/05/2016 CMP, serum or plasm a potassium, serum 4.2 mmol/ L 3.5-5. 2 EFF ECTIV E OCTOB ER 2015 THE REFER ENCE INTER NIRMALA FOR SIENNA PATRICIOUM, SERUM WILL BE LYON ING TO: 0 - 7 DAYS 3.7 - 5.2 8 - 30 DAYS 3.7 - 6.4 1 - 6 MONTH S 3.8 - 6.0 7 MONTH S - 1 YEAR 3.8 - 5.3 >1 YEAR 3.5 - 5.2 Not Available [facility] ([facility]) [address] [place], [address], 02/07/2016 13:11:26 02/04/20 16 02/05/2016 CMP, serum or plasm a chloride, serum 103 mmol/ L 97-108 EFF ECTIV E OCTOB ER 2015 THE REFER ENCE INTER NIRMALA FOR CHLOR SAHIL, SERUM WILL BE LYON ING TO: 97 - 106 Not Available [facility] ([facility]) [address] [place], [address], 02/07/2016 13:11:26 02/04/20 16 02/05/2016 CMP, serum or plasm a carbon dioxide, total 24 mmol/ L 18-29 Not Available [facility] ([facility]) [address] [place], [address], 02/07/2016 13:11:26 02/04/20 16 02/05/2016 CMP, serum or plasm a calcium, serum 8.3 mg/dL 8.7-10 .3 below low normal Not Available [facility] ([facility]) [address] [place], [address], 02/07/2016 13:11:26 02/04/20 16 02/05/2016 CMP, serum or plasm a protein, total, serum 6.2 g/dL 6.0-8. 5 Not Available [facility] ([facility]) [address] [facility], [place], [address], 02/07/2016 13:11:26 02/04/20 16 02/05/2016 CMP, serum or plasm a albumin, serum 3.8 g/dL 3.6-4. 8 Not Available [facility] ([facility]) [address] [place], [address], 02/07/2016 13:11:26 02/04/20 16 02/05/2016 CMP, serum or plasm a globulin, total 2.4 g/dL 1.5-4. 5 Not Available [facility] ([facility]) [address] [place], [address], 02/07/2016 13:11:26 02/04/20 16 02/05/2016 CMP, serum or plasm a A/G ratio 1.6 1.1-2. 5 Not Available [facility] ([facility]) [address] [place] [address], [address], 02/07/2016 13:11:26 02/04/20 16 02/05/2016 CMP, serum or plasm a bilirubin, total <0.2 mg/dL 0.0-1. 2 Not Available [facility] ([facility]) [address] [place], [address], 02/07/2016 13:11:26 02/04/20 16 02/05/2016 CMP, serum or plasm a alkaline phosphatase, S 97 IU/L 39-117 Not Available [facility] ([facility]) [address] [place] [address], [address], 02/07/2016 13:11:26 02/04/20 16 02/05/2016 CMP, serum or plasm a AST (SGOT) 15 IU/L 0-40 Not Available [facility] ([facility]) [address] [facility] [place], [address], 02/07/2016 13:11:26 02/04/20 16 02/05/2016 CMP, serum or plasm a ALT (SGPT) 15 IU/L 0-32 Not Available [facility] ([facility]) [address] [facility] [place], [address], 02/07/2016 13:11:26 02/04/20 16 02/05/2016 lipid panel , serum cholesterol, total 201 mg/dL 100-19 9 above high normal Not Available [facility] ([facility]) [address] [facility] [place], [address], 02/07/2016 13:11:26 02/04/20 16 02/05/2016 lipid panel , serum triglyceride s 91 mg/dL 0-149 Not Available [facility] ([facility]) [address] [place], [address], 02/07/2016 13:11:26 02/04/20 16 02/05/2016 lipid panel , serum HDL cholesterol 72 mg/dL >39 ACCOR DING TO ATP-I II GUIDE LINES , HDL-C >59 MG/DL IS CONSI DERED A NEGAT CAMPOS RISK FACTO R FOR CHD. Not Available [facility] ([facility]) [address] [place], [address], 02/07/2016 13:11:26 02/04/20 16 02/05/2016 lipid panel , serum VLDL cholesterol taylor 18 mg/dL 5-40 Not Available [facility] ([facility]) [address] [place], [address], 02/07/2016 13:11:26 02/04/20 16 02/05/2016 lipid panel , serum LDL cholesterol calc 111 mg/dL 0-99 above high normal Not Available [facility] ([facility]) [address] [place], [address], 02/07/2016 13:11:26 02/04/20 16 02/05/2016 lipid panel , serum comment: CUSTOM GRINDER Not Available [facility] ([facility]) [address] [facility], [place], [address], 02/07/2016 13:11:26 02/04/20 16 02/05/2016 lipid panel , serum LDL/HDL ratio 1.5 ratio _unit s 0.0-3. 2 LDL/H DL RATIO MEN WOMEN 1/2 AVG.R ISK 1.0 1.5 AVG.R ISK 3.6 3.2 2X AVG.R ISK 6.2 5.0 3X AVG.R ISK 8.0 6.1 Not Available [facility] ([facility]) [address] [facility], [place], [address], 02/07/2016 13:11:26 02/04/20 16 02/07/2016 vitam in D, 25-hy droxy , total , serum vitamin D, 25-hydroxy, serum 37 NG/mL REFER ENCE RANGE : ALL AGES: TARGE T LEVEL S 30 - 100 Not Available [facility] [address] [place] [address], [address], 02/07/2016 13:11:27 04/02/20 16 04/03/2016 gluco se slava ance test, post- 75G, 3 speci mens glucose, fasting 92 mg/dL 65-99 Not Available [facility] ([facility]) [address] [place], [address], 04/03/2016 06:12:40 04/02/20 16 04/03/2016 gluco se slava ance test, post- 75G, 3 speci mens glucose, 1/2 hour TNP TEST NOT PERFO RMED Not Available [facility] ([facility]) [address] [place], [address], 04/03/2016 06:12:40 04/02/20 16 04/03/2016 gluco se slava ance test, post- 75G, 3 speci mens glucose, 1 hour 189 mg/dL 65-199 Not Available [facility] ([facility]) [address] [place], [address], 04/03/2016 06:12:40 04/02/20 16 04/03/2016 gluco se slava ance test, post- 75G, 3 speci mens glucose, 1 1/2 hour TNP TEST NOT PERFO RMED Not Available [facility] ([facility]) [address] [place], [address], 04/03/2016 06:12:40 04/02/20 16 04/03/2016 gluco se slava ance test, post- 75G, 3 speci mens glucose, 2 hour 97 mg/dL 65-139 Not Available [facility] ([facility]) [address] [place], [address], 04/03/2016 06:12:40 04/02/20 16 04/03/2016 gluco se slava ance test, post- 75G, 3 speci mens glucose, 3 hour TNP TEST NOT PERFO RMED Not Available [facility] ([facility]) [address] [place] [address], [address], 04/03/2016 06:12:40 04/02/20 16 04/03/2016 gluco se slava ance test, post- 75G, 3 speci mens glucose, 4 hour TNP TEST NOT PERFO RMED Not Available [facility] ([facility]) [address] [place], [address], 04/03/2016 06:12:40 04/02/20 16 04/03/2016 gluco se slava ance test, post- 75G, 3 speci mens glucose, 5 hour TNP TEST NOT PERFO RMED Not Available [facility] ([facility]) [address] [place], [address], 04/03/2016 06:12:40 04/02/20 16 04/03/2016 gluco se slava ance test, post- 75G, 3 speci mens glucose, 6 hour TNP TEST NOT PERFO RMED Not Available [facility] ([facility]) [address] [facility], [place], [address], 04/03/2016 06:12:40 04/02/20 16 04/03/2016 HbA1c (hemo globi n A1c), blood hemoglobin A1C 6.0 % 4.8-5. 6 above high normal PRE-D IABET ES: 5.7 - 6.4 DIABE ROSE: >6.4 GLYCE ARON CONTR OL FOR ADULT S WITH DIABE ROSE: <7.0 Not Available [facility] ([facility]) [address] [facility], [place], [address], 04/03/2016 06:12:41 01/29/20 16 01/28/2016 bone densi ty, dual photo n absor ptiom etry No observ ation record ed. [email or web address] [facility] [address] [place], [address], 08/20/2016 09:43:33 02/21/20 16 02/21/2016 US, kidne y No observ ation record ed. [email or web address] Not Available 2015 15:40:26 05/21/19 17 05/21/2016 MRI, brain + brain stem, w/wo contr ast No observ ation record ed. strice [facility] [address] [place], [address], 07/03/2016 11:40:04 05/21/19 17 05/21/2016 MRI, cervi taylor spine , w/o contr ast No observ ation record ed. [email or web address] [facility] (Imaging) [address] [place], [address], 05/29/2016 07:28:18 06/03/19 17 06/03/2016 MAMMO , scree uziel, bilat eral No observ ation record ed. [email or web address] Not Available 07/02 15:29:02 06/27/19 17 06/27/2016 XR, chest , 2 view No observ ation record ed. [facility] (Imaging) [address] [place], [address], 07/16/2016 13:29:36 07/04/19 17 6 minut e walk test* No observ ation record ed. [facility] ([facility]) [address] [place], [address], 07/04/2016 12:37:03 Result Notes None recorded. Problems Name Problem SNOMED Code Status Onset Date Resolution Date Notes Provider Name and Address Organization Details Recorded Time Chronic obstructive pulmonary disease 65106198 Active Milena Dos Santos MD Attn: Wilmer bullock,[address] [facility], [place], [place], [address] [place] [address] 2, [facility] 6 15:15:05 Tobacco dependence syndrome 87351525 Active Milena Dos Santos MD Attn: Wilmer bullock,[address] [facility], [place], [place], [address] [place] [address] 2, [facility] 6 15:15:05 Chronic low back pain 147475207 Active Milena Dos Santos MD Attn: Wilmer bullock,[address] [facility], [place], [place], [address] [place] [address] 2, [facility] 6 15:15:05 Esophageal dysphagia 47132371 Active Milena Dos Santos MD Attn: Wilmer bullock,[address] [facility], [place], [place], [address] [place] [address] 2, [facility] 6 15:15:05 Dystonia 72457994 Active Milena Dos Santos MD Attn: Wilmer bullock,[address] [place], [place], [address] [place] [address] 2, [facility] 6 15:15:05 Osteoporosis [id number] Diandra Gonzalez RN null, [facility] 6 15:14:16 Problem Notes None recorded. Procedures Surgical History Date Name Laterality Status Provider Name and Address Organization Details Recorded Time 05/04/19 15 Mammogram screening completed Judd Valentine MA [facility] 01/21/2016 14:25:00 05/04/19 14 Diagnostic colonoscopy completed Judd Valentine MA [facility] 01/21/2016 14:25:00 05/04/19 09 Screening pap smear by phys completed Judd Valentine MA [facility] 01/21/2016 14:25:00 Dilation and Curettage completed Judd Valentine MA [facility] 01/21/2016 14:25:00 Tonsillectomy completed Judd Valentine MA [facility] 01/21/2016 14:25:00 Hysterectomy completed Judd Valentine MA [facility] 01/21/2016 14:25:00 Appendectomy completed Judd Valentine MA [facility] 01/21/2016 14:25:00 Imaging Results Imaging Date Name Status LastModified by Organization Details LastModified Time 01/28/2016 bone density, dual photon absorptiometry completed [email or web address] [place] [address] [address] [place], [place], [id number]|2024-09-20 01:21:00|2024-09-20 01:20:00|XMS_ITS|BKG DAEMON|External Medical Summaries|[id number]|" Data Portability Created on: September 20, 2024 Melyssa Mccall .[id number] : 1955 Sex: Female Author Organization [place] [facility] [employer] [facility], Main Office Address [address] [place] [address] Assessment Encounter Date Assessment Date Assessment LastModified by Organization Details LastModified Time 11/20/2022 11/20/2022 This note is dictated and transcribed by [employer]. [employer] Fe[employer] variances may occur. Despite proofreading, typographical errors may occur. [email or web address] Not available 11/20/2022 16:36:51 Plan of Treatment [...] Recorded Time Metatarsalg ia of right foot 5461017955448 00 Active 2022 Shemar Fairchild DPM [address], [address], [place], [address], [address] [facility] 3 16:36:55 Foot callus 086502739 Active 2022 Shemar Fairchild DPM [address], [address], [place], [address], [address] [facility] 3 16:36:59 Hammer toe 561174592 Active 2022 Shemar Fairchild DPM [address], [address], [place], [address], [address] [facility] 3 16:37:19 Problem Notes None recorded. Procedures Surgical History Date Name Laterality Status Provider Name and Address Organization Details Recorded Time Hysterectomy, Partial completed Joycelyn Bean [employer] 11/20/2022 16:57:02 Appendectomy completed Joycelyn Bean [employer] 11/20/2022 16:57:06 Total hysterectomy completed Joycelyn Bean [employer] 11/20/2022 16:57:18 release of trigger finger completed Joycelyn Bean [employer] 11/20/2022 16:57:28 Tonsillectomy completed Joycelyn Bean [employer] 11/20/2022 16:57:34 Imaging Results None recorded. Procedure Notes None recorded. Medical Equipment None Reported. Allergies Allergen ID Allergen Name Allergen Category Reaction Reaction Severity Criticality Documentation Date Start Date Code Code System Note Provider Name and Address Organization Details Recorded Time 23337 Product containin g penicilli n (product) medicatio n Not available Not available Not available 11/20/2022 63428 8001 SNOMED Joycelyn amin [facility] 3 16:51:43 96201 meperidin e medicatio n Not available Not available Not available 11/20/2022 6754 RxNorm Joycelyn amin, [facility] 3 16:51:54 95901 sulfadime thoxine Not available Not available Not available Not available 11/20/2022 44757 RxNorm Joycelyn amin [facility] 3 16:52:05 54004 trimethop rim medicatio n Not available Not available Not available 11/20/2022 69820 RxNorm Joycelyn amin, [facility] 3 16:52:18 Medications Name Sig Start [...] % 97 % 167.64 cm 16.9 kg/m2 09607.2 g 142 mm[Hg] 78 mm[Hg] Joycelyn Bean [employer] 3 16:19:04 Date Recorded Body height Body mass index (BMI) Body weight Heart rate Respiratory rate Oxygen saturation Oxygen saturation in Arterial blood by Pulse oximetry Systolic blood pressure Diastolic blood pressure Provider Name and Address Organization Details Last Updated DateTime 3 167.64 cm 16.9 kg/m2 96388.2 g 72 /min 14 /min 97 % 97 % 134 mm[Hg] 69 mm[Hg] Joycelyn Bean [employer] 3 14:02:12 Social History Question Answer Notes LastModified by [employer] Details LastModified Time Tobacco Smoking Status Current Every Day Smoker Joycelyn amin [employer] 11/20/2022 16:56:20 What Is Your Level Of Caffeine Consumption? Heavy Information not available 11/20/2022 What Was The Date Of Your Most Recent Tobacco Screening? 11/20/2022 Information not available 11/20/2022 Has Tobacco Cessation Counseling Been Provided? No Information not available 11/20/2022 Sex: Unknown Functional Status Question Answer Note LastModified by [employer] Details LastModified Time Do you use any illicit or recreational drugs? No Information not available 11/20/2022 Do you or have you ever used any other forms of tobacco or nicotine? No Information not available 11/20/2022 What is your level of alcohol consumption? None Information not available 11/20/2022 Mental Status None recorded. Family History Relationship [...] SNOMED-CT Code Diagnosis ICD10 Code Diagnosis Note [id number] Shemar Fairchild DPM [facility] [address] [place] [address] 11/20/2022 16:13:05 11/25/2022 16:43:24 Metatarsalgia of right foot 7555939649 20719 M77.41 sub 3rd metatarsal head, right footas above Foot callus 655893051 L8 4 sub 3rd metatarsal headMildOf floading with metatarsal pad had to functional orthoticse ducated on supportive shoe gearFollow -up in 1 month Hammer toe 266383294 M20 .41 right 2nd 3rd toes mildEducat ed on treatment optionCont inue with conservati ve therapy [id number] Shemar Fairchild DPM [facility] [address] [place] [phone] 12/18/2022 13:48:12 12/18/2022 14:26:06 Hammer toe 959813570 M20.41 right 2nd 3rd toes mildpatien t would like to continue with conservati ve therapyrec ommend silicone sleeves and soft high toe box shoe to prevent wounds infectionF ollow-up as needed Foot callus 700919695 L8 4 sub 3rd metatarsal headresolv ed with offloading Metatarsal ella of right foot 0017283631 94671 M77.41 sub 3rd metatarsal head, right footResolv ed with felt dancer's padPatient educated on accommodat campos inserts which may also help to reduce pressure Health Concerns Section Related Observation LastModified by Organization Detai ls LastModified Time None Recorded Concern Status LastModified by Organization Details LastModified Time None Recorded Advance Directives Directive None Recorded Payers Encounter Date Sequence Insurance Name Policy Number Policy Granados Covered Member ID Granados Member ID Guarantor Name 11/20/2022 1 [place] Melyssa A [place] [id number] Melyssa A [place] 11/20/2022 2 [place] Melyssa A [place] [id number] Melyssa A [place] 12/18/2022 1 [place]ssa A [place] [id number] Melyssa A [place] 12/18/2022 2 [place] Melyssa A [place] [id number] Melyssa A [place] Notes Date Note Type [...] area. Patient has been seen by another procurement buyer to which she has custom orthotics and [...] any other pedal complaints. Shemar Fairchild DPM [address] [place] [address], [facility] [address], [place], [address], [facility] [employer] 11/25/2022 12:13:28 12/18/2022 text/html . Patient is [...] doing much better. Shemar Fairchild DPM [address] [facility] [address], [place], [address], [facility] [employer] [facility] 12/18/2022 14:07:57 OBGyn Episode No OBEpisode recorded. "
--- OUTSIDE RECORDS SUMMARY | 2024-09-20 01:20 | XMS_ITS | Clinical Summary ---
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
--- OUTSIDE RECORDS SUMMARY | 2024-09-20 01:21 | XMS_ITS | Clinical Summary ---
Author Organization [facility] [employer] Address [address] [facility] [place] [address] Care Team Providers Care Wafer Fabrication Technician Name Role Phone Tommy King DO Primary Care Provider [phone] Source Comments [facility],non-owned Affiliates and Associated Physician Practices is amultiple site organization consisting of ambulatory clinics and hospital sitesin [place], [place], [place] and [place]. This disclosure is being madepursuant to the Care Everywhere program and may not contain all information available regarding this patient. Last updated 18.[facility] Allergies Active Allergy Reactions Criticality Noted [...] fluticasone propionate (FLONASE) 50 MCG/ACT nasal spray Monument 2 sprays into the nose once daily [...] 36.8 C (98.3 F) 06/12/2021 10:53 AM CUSTOMER SERVICE CASHIER Respiratory Rate 18 05/23/2021 12:51 PM CUSTOMER SERVICE CASHIER Oxygen Saturation 91% 08/05/2021 9:59 AM CDT [...] this topic Medical Devices Implanted Type Area Machinist Job Setter Device Identifier Shelf Expiration Date Model / Serial / Lot Lead Nrstm 60cm Penta 3mm Pdl 16 [facility] - [id number] Implanted:Qty: 1 on 05/23/2021 by Esau Rose MD at [facility] [place] Back [employer] 10/19/2022 [id number] / [id number] / Slnt Dura Duraseal Pg Trilysine Amine 5 Implanted:Qty: 1 on 05/23/2021 by Esau Rose MD at [facility] [place] Back [employer] [id number] / / [id number] Gntr Nrstm 1.95inx2.19in Pro[employer] Elt - [id number] Implanted:Qty: 1 on 05/23/2021 by Esau Rose MD at [facility] [place] Left: Back [employer] 03/26/2023 3660 / [id number] / Insurance MEDICARE MEDICAID - [place] [employer] MANAGED MEDICARE ADV MEDICAID [place]END[place] SELF PAY NO INSURANCE Member Subscriber Plan / Payer (Ef fective for All Dates) Name:Melyssa Mccall Member ID:Not on file Relation to Subscriber:Not on file Name:MELYSSA MCCALL Subscriber ID:Not on file (Home) Address: [address] [place] [address] [place] [address] Payer ID:Not on file Group ID:Not on file Type:Self Pay Address: [facility] MANAGED MEDICARE [facility] MEDICARE MEDICAID - OUT OF STATE Care Teams Wafer Fabrication Technician Relationship Specialty Start Date End Date Tommy King DO PCP - General Internal Medicine 04/23/21
--- OUTSIDE RECORDS SUMMARY | 2024-09-20 01:21 | XMS_ITS | Encounter Summary ---
Author Organization [facility] Address [address] [place] [address] Care Team Providers Care Tea Leaf Reader Name Role Phone Milena Dos Santos MD Primary Care Provider [phone] Tommy King DO Primary Care Provider [phone] [place] Pino MD Unavailable [phone] Yvan Jaime MD Unavailable [phone] None, Provider Primary Care Provider Unavaila ble Encounter Details Date Type Department Care Team (Latest Contact Info) Description 03/09/2018 Abstract [facility] Michael Mclean MD Social History Tobacco Use Types Packs/Day Years Used Date Smoking Tobacco: Smoker, Current Status Unknown Comments Unknown Sex and Gender Information Value Date Recorded Sex Assigned at Not on file Legal Sex Female 11:35 PM CDT Gender Identity Female 05/09/2021 3:57 PM PASSENGER AGENT Sexual Orientation Straight 05/09/2021 3: 57 PM PASSENGER AGENT documented as of this encounter Plan of Treatment Not on file documented as of this encounter Visit Diagnoses Not on filedocumented in this encounter Care Teams Tea Leaf Reader Relationship Specialty Start Date End Date Milena Dos Santos MD [address] [place] [address] PCP - General 06/03/16 04/03/19 Tommy King DO [address] [place] [address] PCP - General INTERNAL MEDICINE 04/04/19 03/27/22 None, Shena, PCP - General UNKNOWN PHYSICIAN SPECIALTY 03/28/22 West Pino MD [address] [facility] [address] [place] [address] UROLOGY 05/03/19 Yvan Jaime MD [address] [place] [address] Surgeon NEUROLOGICAL SURGERY 05/03/19 documented as of this encounter
--- NOTE | 2024-09-20 07:32 | WPDANESEPPF ---
Anes - Initial Pre Proc Eval Procedure: Operation Date: 09/20/24 09:30 Proposed Procedures p Esophagogastroduodenoscopy - Channing Ryan MD Date/Time: 09/20/24 07:32 Surgeon: Channing Ryan MD Pre Op Diagnosis: Dysphagia, unspecified Patient Data Age: 69 Gender: F Height: 1.7 m Weight: 42.2 kg Allergies Allergy/AdvReac Type Severity Reaction Status Date / Time Penicillins Allergy Severe Anaphylaxis Verified 09/14/24 14:19 meperidine Allergy Intermediate Itching Verified 09/14/24 14:19 sulfamethoxazole (From Allergy Intermediate Mouth Verified 09/14/24 14:19 Bactrim) burning/redness trimethoprim (From Bactrim) Allergy Intermediate Mouth Verified 09/14/24 14:19 burning/redness mirtazapine AdvReac Mild Headache Verified 09/14/24 14:19 Home Medications Medication Instructions Recorded Confirmed Type aspirin 81 mg tablet,delayed 81 mg PO DAILY 06/02/19 09/14/24 History release (Adult Aspirin Regimen) cyclobenzaprine 5 mg tablet 5 mg PO Q12H 01/05/20 09/14/24 History oxycodone myristate 13.5 mg 13.5 mg PO Q12H 11/19/21 09/14/24 History capsule sprinkle extend release 12hr(DON'T CRUSH) (Xtampza ER) solifenacin 10 mg tablet (Vesicare) 5 mg PO HS 02/04/23 09/14/24 History cholecalciferol (vitamin D3) 125 125 mcg PO DAILY 07/24/23 09/14/24 History mcg (5,000 unit) tablet (Vitamin D3) guaifenesin 600 mg tablet, 600 mg PO Q12H 07/24/23 09/14/24 History extended release 12 hr (Mucinex) loratadine 10 mg tablet 10 mg PO DAILY 07/24/23 09/14/24 History metoprolol succinate 25 mg See Rx Instructions .Route 10/28/23 09/20/24 Rx tablet,extended release 24 hr .COMPLEX #90 tabs albuterol sulfate 90 mcg/actuation See Rx Instructions .Route 03/15/24 09/20/24 History aerosol inhaler .COMPLEX PRN Shortness Of Breath Or Wheezing nicotine 21 mg/24 hr daily 1 patch transdermal DAILY 03/15/24 09/14/24 History transdermal patch omeprazole 40 mg capsule,delayed 40 mg PO DAILY #90 caps 06/02/24 09/14/24 Rx release albuterol sulfate 2.5 mg/3 mL 2.5 mg (3 mL) inhalation Q4-6H PRN 06/07/24 09/20/24 Rx (0.083 %) solution for nebulization shortness of breath or wheezing #180 mL paroxetine HCl 20 mg tablet See Rx Instructions .Route 06/17/24 09/20/24 Rx .COMPLEX #90 tabs tiotropium 2.5 mcg-olodaterol 2.5 See Rx Instructions .Route 06/20/24 09/14/24 Rx mcg/actuation mist for inhalation .COMPLEX #4 grams (Stiolto Respimat) fluticasone propionate 50 1 spray intranasal BID PRN nasal 07/11/24 09/14/24 Rx mcg/actuation nasal congestion #16 grams spray,suspension (Flonase Allergy Relief) lovastatin 40 mg tablet 40 mg PO HS 08/02/24 09/14/24 History ferrous sulfate 325 mg (65 mg See Rx Instructions .Route 08/05/24 09/14/24 Rx iron) tablet (FeroSul) .COMPLEX #30 tabs gabapentin 300 mg capsule 300 mg PO Q12H #180 caps 08/29/24 09/14/24 Rx levofloxacin 750 mg tablet 750 mg PO .q48 #7 tabs 09/07/24 09/14/24 Rx Patient hx anesthesia problems: none Family hx anesthesia problems: none Results Review: All pre-operative results and documents have been reviewed as part of the pre-operative evaluation. [facility] Past Medical History Medical History (Updated 09/07/24 @ 13:16 by Nato Torres, Student) OSWALD (iron deficiency anemia) Osteopenia Liana esophagitis RLS (restless legs syndrome) Esophageal dilatation Chronic narcotic use On home O2 Chronic sinusitis Dysphagia Olecranon bursitis, left elbow PSVT (paroxysmal supraventricular tachycardia) Change in bowel habits Kidney stones Fibromyalgia Rheumatoid arthritis Arthritis Constipation IBS (irritable bowel syndrome) GERD (gastroesophageal reflux disease) Stomach ulcer Wears glasses Ventricular ectopics Lumbar radiculopathy Family history of colon cancer Adenomatous colon polyp Esophageal stricture Urge incontinence ILD (interstitial lung disease) Small amount of interstitial lung disease was seen on base of lungs on chest CT 03/25/2018 which was an abdomen and pelvis CT Essential hypertension Oxygen dependent 2L w/activity, 1 w/rest Collagen vascular disease Hyperlipidemia, unspecified Infectious colitis Mass in neck Thrush Anxiety 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, patient unsure of this diagnosis COPD (chronic obstructive pulmonary disease) Tobacco abuse Surgical History Surgical History History of partial hysterectomy Status post insertion of spinal cord stimulator History of bladder suspension procedure History of appendectomy History of lumbar surgery Spinal cord stimulator implanted 05/23/21 Family History Family History Mother Patient's mother is , Onset Age: 72 Sibling Carcinoma of colon Ovarian cancer Lung cancer Rectal cancer Family history of malignant neoplasm of breast in first degree relative Father Brain aneurysm Other Arthritis COPD (chronic obstructive pulmonary disease) Cerebrovascular accident High cholesterol Hypertension Lung disease Neuropathy Social History Social History Social History: caffeine-coffee/soda Smoking packs per day: 1 Smoking cigarettes per day: 20.0 Years smoked: 60 Smoking pack-years: 60.00 Smoking status: Current every day smoker Second hand tobacco smoke exposure: Yes Additional smoking assessment comments: Using Nicotine patches Alcohol intake: never Substance use: unknown Do You Feel Safe in your Home?: Yes Lack of Transportation: No Lack of Food: Never True Current Housing: I Have Housing Concerned About Future Housing: No Difficulty Paying Gas/Electric Bills: No Difficulty Paying for Meds: No Currently Unemployed: No Education: High School Diploma/GED Difficulty w/ Childcare or Family Care: No Living arrangements: alone Occupation/Education: retired Gender identity (if verbalized by the patient): Female Spiritual care concerns: No Anes - Eval Final PreProcedure Day of Procedure 09/20/24 07:32 Patient weight: normal Heart: regular rate and rhythm Lungs: clear to auscultation and normal air movement Airway: Mallampati scale class II Neurological: alert and oriented Last oral intake: >/= 8 hours ASA classification: IV Emergent: no Anesthetic plan: proceed Anesthesia type and monitoring: general GIVS and standard monitoring Results Review: All pre-operative results and documents have been reviewed as part of the pre-operative evaluation. Informed Consent: The patient's anesthetic plan and its attendant risks and benefits were discussed with the patient/family/POA. Questions were solicited and answers provided to the satisfaction of the patient/family/POA.
[2024-09-20 08:33] VITALS: BP 104/55; PULSE 82; RESP 18; TEMP 36.4; O2SAT 86
[2024-09-20 08:36] VITALS: O2SAT 90
[2024-09-20] MEDS: LACTATED RINGERS 1,000 ML 150 ML IV CONT (08:46)
--- NOTE | 2024-09-20 08:53 | PM.HPGS ---
History of Present Illness History of Present Illness Consent: Risks, benefits, and alternatives have been discussed and questions answered. Patient agrees to proceed with procedure. Chief complaint: Dysphagia, unspecified Narrative: Melyssa Mccall is a 69 year old female with dysphagia, had EGD with dilation 08/2024. Review of Systems Review of Systems: All systems reviewed & are unremarkable except as noted in HPI and below PMFSH Past Medical History Medical History (Updated 09/07/24 @ 13:16 by Nato Torres, Student) OSWALD (iron deficiency anemia) Osteopenia Liana esophagitis RLS (restless legs syndrome) Esophageal dilatation Chronic narcotic use On home O2 Chronic sinusitis Dysphagia Olecranon bursitis, left elbow PSVT (paroxysmal supraventricular tachycardia) Change in bowel habits Kidney stones Fibromyalgia Rheumatoid arthritis Arthritis Constipation IBS (irritable bowel syndrome) GERD (gastroesophageal reflux disease) Stomach ulcer Wears glasses Ventricular ectopics Lumbar radiculopathy Family history of colon cancer Adenomatous colon polyp Esophageal stricture Urge incontinence ILD (interstitial lung disease) Small amount of interstitial lung disease was seen on base of lungs on chest CT 03/25/2018 which was an abdomen and pelvis CT Essential hypertension Oxygen dependent 2L w/activity, 1 w/rest Collagen vascular disease Hyperlipidemia, unspecified Infectious colitis Mass in neck Thrush Anxiety 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, patient unsure of this diagnosis COPD (chronic obstructive pulmonary disease) Tobacco abuse Surgical History Surgical History History of partial hysterectomy Status post insertion of spinal cord stimulator History of bladder suspension procedure History of appendectomy History of lumbar surgery Spinal cord stimulator implanted 05/23/21 Family History Family History Mother Patient's mother is , Onset Age: 72 Sibling Carcinoma of colon Ovarian cancer Lung cancer Rectal cancer Family history of malignant neoplasm of breast in first degree relative Father Brain aneurysm Other Arthritis COPD (chronic obstructive pulmonary disease) Cerebrovascular accident High cholesterol Hypertension Lung disease Neuropathy Social History Social History Social History: caffeine-coffee/soda Smoking packs per day: 1 Smoking cigarettes per day: 20.0 Years smoked: 60 Smoking pack-years: 60.00 Smoking status: Current every day smoker Second hand tobacco smoke exposure: Yes Additional smoking assessment comments: Using Nicotine patches Alcohol intake: never Substance use: unknown Do You Feel Safe in your Home?: Yes Lack of Transportation: No Lack of Food: Never True Current Housing: I Have Housing Concerned About Future Housing: No Difficulty Paying Gas/Electric Bills: No Difficulty Paying for Meds: No Currently Unemployed: No Education: High School Diploma/GED Difficulty w/ Childcare or Family Care: No Living arrangements: alone Occupation/Education: retired Gender identity (if verbalized by the patient): Female Spiritual care concerns: No Meds Home Medications and Allergies Home Medications Medication Instructions Recorded Confirmed Type aspirin 81 mg tablet,delayed 81 mg PO DAILY 06/02/19 09/14/24 History release (Adult Aspirin Regimen) cyclobenzaprine 5 mg tablet 5 mg PO Q12H 01/05/20 09/14/24 History oxycodone myristate 13.5 mg 13.5 mg PO Q12H 11/19/21 09/14/24 History capsule sprinkle extend release 12hr(DON'T CRUSH) (Xtampza ER) solifenacin 10 mg tablet (Vesicare) 5 mg PO HS 02/04/23 09/14/24 History cholecalciferol (vitamin D3) 125 125 mcg PO DAILY 07/24/23 09/14/24 History mcg (5,000 unit) tablet (Vitamin D3) guaifenesin 600 mg tablet, 600 mg PO Q12H 07/24/23 09/14/24 History extended release 12 hr (Mucinex) loratadine 10 mg tablet 10 mg PO DAILY 07/24/23 09/14/24 History metoprolol succinate 25 mg See Rx Instructions .Route 10/28/23 09/20/24 Rx tablet,extended release 24 hr .COMPLEX #90 tabs albuterol sulfate 90 mcg/actuation See Rx Instructions .Route 03/15/24 09/20/24 History aerosol inhaler .COMPLEX PRN Shortness Of Breath Or Wheezing nicotine 21 mg/24 hr daily 1 patch transdermal DAILY 03/15/24 09/14/24 History transdermal patch omeprazole 40 mg capsule,delayed 40 mg PO DAILY #90 caps 06/02/24 09/14/24 Rx release albuterol sulfate 2.5 mg/3 mL 2.5 mg (3 mL) inhalation Q4-6H PRN 06/07/24 09/20/24 Rx (0.083 %) solution for nebulization shortness of breath or wheezing #180 mL paroxetine HCl 20 mg tablet See Rx Instructions .Route 06/17/24 09/20/24 Rx .COMPLEX #90 tabs tiotropium 2.5 mcg-olodaterol 2.5 See Rx Instructions .Route 06/20/24 09/14/24 Rx mcg/actuation mist for inhalation .COMPLEX #4 grams (Stiolto Respimat) fluticasone propionate 50 1 spray intranasal BID PRN nasal 07/11/24 09/14/24 Rx mcg/actuation nasal congestion #16 grams spray,suspension (Flonase Allergy Relief) lovastatin 40 mg tablet 40 mg PO HS 08/02/24 09/14/24 History ferrous sulfate 325 mg (65 mg See Rx Instructions .Route 08/05/24 09/14/24 Rx iron) tablet (FeroSul) .COMPLEX #30 tabs gabapentin 300 mg capsule 300 mg PO Q12H #180 caps 08/29/24 09/14/24 Rx levofloxacin 750 mg tablet 750 mg PO .q48 #7 tabs 09/07/24 09/14/24 Rx Allergies Allergy/AdvReac Type Severity Reaction Status Date / Time Penicillins Allergy Severe Anaphylaxis Verified 09/14/24 14:19 meperidine Allergy Intermediate Itching Verified 09/14/24 14:19 sulfamethoxazole (From Allergy Intermediate Mouth Verified 09/14/24 14:19 Bactrim) burning/redness trimethoprim (From Bactrim) Allergy Intermediate Mouth Verified 09/14/24 14:19 burning/redness mirtazapine AdvReac Mild Headache Verified 09/14/24 14:19 Vital Signs Vital Signs - 24 hr 09/20/24 08:33 09/20/24 08:36 Temperature 97.6 F Pulse Rate 82 Respiratory Rate 18 Blood Pressure 104/55 L Pulse Oximetry 86 L 90 Oxygen Delivery Room Air Nasal Cannula Oxygen Flow Rate 2 Exam Const: General: comfortable and no acute distress HENMT: Face/Nose/Sinus: Normal nares present Eyes: General: appearance normal, both eyes and all related structures Resp: Auscultation: clear to auscultation bilaterally Cardio: Rate: regular rate Rhythm: regular rhythm GI: Inspection: non-distended GI Palp: Yes Soft to palpation Skin: General skin exam: normal color Neuro: Speech: normal speech Extrem: General: normal to inspection Psych: Mental Status: mental status grossly normal Assessment and Plan Assessment and plan (1) Dysphagia: Code(s): R13.10 - Dysphagia, unspecified Status: Acute Assessment and Plan: egd with possible dilation (2) Esophageal stricture: Code(s): K22.2 - Esophageal obstruction Status: Acute
[2024-09-20 09:04] VITALS: BP 83/44; PULSE 70; RESP 17; O2SAT 90
[2024-09-20 09:14] VITALS: BP 84/46; PULSE 71; RESP 22; O2SAT 100
[2024-09-20 09:24] VITALS: BP 99/47; PULSE 72; RESP 20; O2SAT 100
== END 2024-09-20 09:35 | disposition home or self-care (01) ==
PROVIDERS: PCP Family Medicine; Visit Provider Internal Medicine Gastroenterology
PROC: 0DJ08ZZ Inspection of Upper Intestinal Tract, Via Natural or Artificial Opening Endoscopic (ICD-10-PCS; CPT 43249; principal; 2024-09-20 09:30)
DX: K22.2 Esophageal obstruction (principal); F17.210 Nicotine dependence, cigarettes, uncomplicated
CPT/HCPCS: 43249; C1726; J2704; J7120

== ENCOUNTER 2024-10-03 18:06 | Emergency (ER) | payer MEDICARE, MEDICAID, SELFPAY ==
--- NOTE | ~2024-10-03 | XR_ITS ---
EXAM: XR foot RT min 3V DATE: 10/03/2024 18:29 HISTORY: dropped object of foot . COMPARISON: None available. FINDINGS: Osteopenia. No fracture or dislocation. No lytic or blastic lesion. Mild scattered degener ative change. Mild Achilles and plantar enthesopathy. Mild pes planus. No erosion or periosteal roberts e. Soft tissues within normal limits. IMPRESSION: No acute osseous finding in the right foot. Reviewed, dictated and finalized at location K.
--- OUTSIDE RECORDS SUMMARY | 2024-10-03 18:09 | XMS_ITS | Referral Summary ---
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
--- OUTSIDE RECORDS SUMMARY | 2024-10-03 18:09 | XMS_ITS | Clinical Summary ---
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
--- OUTSIDE RECORDS SUMMARY | 2024-10-03 18:09 | XMS_ITS | Clinical Summary ---
Author Organization [facility] [employer] Address [address] [facility] [place] [address] Care Team Providers Care Outsole Caser Name Role Phone Tommy King DO Primary Care Provider [phone] Source Comments [facility],non-owned Affiliates and Associated Physician Practices is amultiple site organization consisting of ambulatory clinics and hospital sitesin [place], [place]. This disclosure is being madepursuant to the Care Everywhere program and may not contain all information available regarding this patient. Last updated 18.[facility] Allergies Active Allergy Reactions Criticality Noted [...] fluticasone propionate (FLONASE) 50 MCG/ACT nasal spray [place] 2 sprays into the nose once daily [...] 36.8 C (98.3 F) 06/12/2021 10:53 AM COMMUNITY AFFAIRS DIRECTOR Respiratory Rate 18 05/23/2021 12:51 PM COMMUNITY AFFAIRS DIRECTOR Oxygen Saturation 91% 08/05/2021 9:59 AM CDT Inhaled Oxygen Concentration - - Weight 56.7 kg (125 lb) 08/05/2021 9:59 AM CDT Height 167.6 cm (5' 6) 08/05/2021 9:59 AM CDT Body Mass Index [...] this topic Medical Devices Implanted Type Area Tab Card Press Operator Device Identifier Shelf Expiration Date Model / Serial / Lot Lead Nrstm 60cm Penta 3mm Pdl 16 [facility] - [id number] Implanted:Qty: 1 on 05/23/2021 by Esau Rose MD at [facility] Back [employer] 10/19/2022 [id number] / [id number] / Slnt Dura Duraseal Pg Trilysine Amine 5 Implanted:Qty: 1 on 05/23/2021 by Esau Rose MD at [facility] Back [employer] Erendira [id number] / / [id number] Gntr Nrstm 1.95inx2.19in [employer] - [id number] Implanted:Qty: 1 on 05/23/2021 by Esau Rose MD at [facility] Left: Back [employer] 03/26/2023 3660 / [id number] / Insurance MEDICARE MEDICAID - [place] [employer] MANAGED MEDICARE ADV MEDICAID SPEND[place] SELF PAY NO INSURANCE Member Subscriber Plan / Payer (Ef fective for All Dates) Name:Melyssa Mccall Member ID:Not on file Relation to Subscriber:Not on file Name:MELYSSA MCCALL Subscriber ID:Not on file (Home) Address: [address] [place] [address] [place] [address] Payer ID:Not on file Group ID:Not on file Type:Self Pay Address: [facility] MANAGED MEDICARE [facility] MEDICARE MEDICAID - OUT OF STATE Care Teams Outsole Caser Relationship Specialty Start Date End Date Tommy King DO PCP - General Internal Medicine 04/23/21
--- OUTSIDE RECORDS SUMMARY | 2024-10-03 18:09 | XMS_ITS | Data Portability ---
Author Organization [facility], Main Office Address [address] [place] [address] Assessment Encounter Date Assessment Date Assessment LastModified by Organization Details LastModified Time 11/20/2022 11/20/2022 This note is dictated and transcribed by [employer]. Rn Cvor variances may occur. Despite proofreading, typographical errors [...] Recorded Time Metatarsalg ia of right foot 9887289495529 00 Active 2022 Shemar Fairchild DPM [address], [address], [place], [address], [facility] 3 16:36:55 Foot callus 193421347 Active 2022 Shemar Fairchild DPM [address], [address], [place], [address], [facility] 3 16:36:59 Hammer toe 961371003 Active 2022 Shemar Fairchild DPM [address], [address], [place], [address], [facility] 3 16:37:19 Problem Notes None recorded. Procedures Surgical History Date Name Laterality Status Provider Name and Address Organization Details Recorded Time Hysterectomy, Partial completed Joycelyn Bean [facility] 11/20/2022 16:57:02 Appendectomy completed Joycelyn Bean [facility] 11/20/2022 16:57:06 Total hysterectomy completed Joycelyn Bean [facility] 11/20/2022 16:57:18 release of trigger finger completed Joycelyn Bean [facility] 11/20/2022 16:57:28 Tonsillectomy completed Joycelyn Bean [facility] 11/20/2022 16:57:34 Imaging Results None recorded. Procedure Notes None recorded. Medical Equipment None Reported. Allergies Allergen ID Allergen Name Allergen Category Reaction Reaction Severity Criticality Documentation Date Start Date Code Code System Note Provider Name and Address Organization Details Recorded Time 80140 Product containin g penicilli n (product) medicatio n Not available Not available Not available 11/20/2022 35824 8001 SNOMED [facility] 3 16:51:43 85733 meperidin e medicatio n Not available Not available Not available 11/20/2022 6754 RxNorm [facility] 16:51:54 15715 sulfadime thoxine Not available Not available Not available Not available 11/20/2022 31213 RxNorm [facility] 3 16:52:05 11889 trimethop rim medicatio n Not available Not available Not available 11/20/2022 80165 RxNorm [facility] 16:52:18 Medications Name Sig Start [...] % 97 % 167.64 cm 16.9 kg/m2 17839.2 g 142 mm[Hg] 78 mm[Hg] Joycelyn US [facility] [employer] [facility] 3 16:19:04 Date Recorded Body height Body mass index (BMI) Body weight Heart rate Respiratory rate Oxygen saturation Oxygen saturation in Arterial blood by Pulse oximetry Systolic blood pressure Diastolic blood pressure Provider Name and Address Organization Details Last Updated DateTime 3 167.64 cm 16.9 kg/m2 37972.2 g 72 /min 14 /min 97 % 97 % 134 mm[Hg] 69 mm[Hg] Joycelyn Bean [facility] [employer] [facility] 3 14:02:12 Social History Question Answer Notes LastModified by Organizat ion Details LastModified Time Tobacco Smoking Status Current Every Day Smoker Joycelyn amin [facility] 11/20/2022 16:56:20 What Is Your Level Of Caffeine Consumption? Heavy Information not available 11/20/2022 What Was The Date Of Your Most Recent Tobacco Screening? 11/20/2022 Information not available 11/20/2022 Has Tobacco Cessation Counseling Been Provided? No Information not available 11/20/2022 Sex: Unknown Functional Status Question Answer Note LastModified by Organizat ion Details LastModified Time Do you use any [...] SNOMED-CT Code Diagnosis ICD10 Code Diagnosis Note [id number] Shemar Fairchild DPM [facility] [place] [address] [facility] [address] [place] [address] 11/20/2022 16:13:05 11/25/2022 16:43:24 Metatarsalgia of right foot 3420723136 35968 M77.41 sub 3rd metatarsal head, right footas above Foot callus 963245663 L8 4 sub 3rd metatarsal headMildOf floading with metatarsal pad had to functional orthoticse ducated on supportive shoe gearFollow -up in 1 month Hammer toe 256680352 M20 .41 right 2nd 3rd toes mildEducat ed on treatment optionCont inue with conservati ve therapy [id number] Shemar Fairchild DPM [facility] [place] [address] [facility] [address] [place] [address] 12/18/2022 13:48:12 12/18/2022 14:26:06 Hammer toe 394191187 M20.41 right 2nd 3rd toes mildpatien t would like to continue with conservati ve therapyrec ommend silicone sleeves and soft high toe box shoe to prevent wounds infectionF ollow-up as needed Foot callus 085279093 L8 4 sub 3rd metatarsal headresolv ed with offloading Metatarsal ella of right foot 2889969512 93205 M77.41 sub 3rd metatarsal head, right footResolv [...] 11/20/2022 1 [place] Melyssa A [place] [id number] Melyssa A [place] 11/20/2022 2 [place] Melyssa A [place] [id number] Melyssa A [place] 12/18/2022 1 [place] Melyssa A [place] [id number] Melyssa A [place] 12/18/2022 2 [place] Melyssa A [place] [id number] Melyssa A Cal Notes Date Note Type [...] area. 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 Patient is [...] Fairchild DPM [address], [place], [address], [facility] 12/18/2022 14:07:57 OBGyn Episode No OBEpisode recorded.
--- OUTSIDE RECORDS SUMMARY | 2024-10-03 18:09 | XMS_ITS | Data Portability ---
Author Organization [facility] Claudia POLLOCK Address [address] [place] [address] Assessment No assessment recorded. Plan of Treatment Reminders Order Date Submit Date Provider Last Modified By Organization Details Last Modified Time Details Appointments None recorded. Lab rapid strep group A, throat 2016 017 [facility] In-Office Order, Internal Use Only DO Not Attach Compendium DO Not Attach Compendium, Do Not Delete/merge, [id number] 7 17:07:24 HbA1c (hemoglobi n A1c), blood 2015 016 DBA_PATCH_ [id number] [facility], [address], [address], [place], [address], 6 04:31:39 glucose tolerance test, post-75G, 3 specimens 2015 016 DBA_PATCH_ [id number] [facility], [address], [address], [place], [address], 6 04:31:39 unlisted lab - vitamin D, 25-hydroxy , total - [facility] 2015 016 JENNIFER [facility], [address], [address], [place], [address], 6 13:11:27 CBC w/ manual diff 2015 016 [email or web address] [facility], [address], [address], [place], [address], 6 12:15:19 CMP, serum or plasma 2015 016 [email or web address] [facility], [address], [address], [place], [address], 6 12:15:19 lipid panel, serum 2015 016 [email or web address] [facility], [address], [address], [place], [address], 6 12:15:19 unlisted lab - compliance drug analysis, ur 2015 016 JENNIFER [facility], [address] [facility], [address], [place], [address], 6 15:09:40 Referral laryngolog y referral - Please call patient to schedule 2015 016 [email or web address] Not available 7 07:56:45 audiologis t referral - Please call patient to schedule 2015 [email or web address], [address], 7 13:04:47 plastic surgeon referral - Rt thigh lump/ PATIENT TO SCHEDULE 2015 016 [email or web address] Not available 7 13:17:06 gastroente rologist referral - P:leae call patient to schedujle 2015 016 [email or web address] Jack Griffin MD, [address] [place], [address], 7 10:10:31 Procedures colonoscop y screening (PROC) 2015 016 DBA_PATCH_ [id number] Not available 6 04:32:07 Surgeries None recorded. Imaging MAMMO, screening, digital, bilateral 2015 016 DBA_PATCH_ [id number] [facility] ([facility]), [address] [place], [address], 6 04:31:59 MAMMO, screening, bilateral 2015 016 [facility] ([facility]), [address] [place], [address], 7 10:29:25 bone density, dual photon absorptiom etry 2015 016 [facility] ([facility]), [address] [place], [address], 6 15:34:00 Medication Orders sertraline 100 mg tablet 2016 017 [facility] #[id number], [address], [place], [id number], 7 17:07:30 nystatin 100,000 unit/mL oral suspension 2016 017 [facility] #30232, [address], [place], [place], [id number], 7 17:07:31 calcium 600 mg (as carbonate) -vitamin D3 10 mcg (400 unit) capsule 2016 017 [facility], [address], [place], [place], [id number], 7 16:54:36 Ventolin HFA 90 mcg/actuat ion aerosol inhaler 2016 017 [facility] #25705, [address], [place], [place], [id number], 7 16:22:52 Symbicort 160 mcg-4.5 mcg/actuat ion HFA aerosol inhaler 2016 017 [facility], [address], [place], [place], [id number], 7 16:22:51 albuterol sulfate 2.5 mg/3 mL (0.083 %) solution for nebulizati on 2016 017 [facility], [address], [place], [place], [id number], 7 16:22:52 calcium 600 mg (as carbonate) -vitamin D3 10 mcg (400 unit) capsule 2015 016 [facility]_ [id number] [facility], [address], [place], [place], [id number], 6 04:31:45 Patient TargetsNo targets recorded. Patient Instructions Encounter Date Encounter Id Patient Instructions Last Modified By Organization Details Last Modified Time 01/21/2016 [id number] deciding about using medicines to quit smoking [facility] Not available 01/22/2016 15:28:08 Quitting Tobacco : Care Instructions [facility] Not available 01/22/2016 15:28:09 chronic obstructive pulmonary disease (COPD): care instructions [facility] Not available 01/22/2016 15:28:08 learning about copd and how to prevent lung infections [facility] Not available 01/22/2016 15:28:08 03/21/2016 [id number] mammogram: about this test [facility] Not available 03/21/2016 17:27:52 deciding about using medicines to quit smoking [facility] Not available 03/21/2016 17:27:52 Quitting Tobacco : Care Instructions [facility] Not available 03/21/2016 17:27:52 chronic obstructive pulmonary disease (COPD): care instructions [facility] Not available 03/21/2016 17:27:52 learning about copd and how to prevent lung infections [facility] Not available 03/21/2016 17:27:52 learning about high blood sugar [facility] Not available 03/21/2016 17:31:23 05/28/2016 [id number] osteoporosis: care instructions [facility] Not available 05/28/2016 16:22:51 deciding about using medicines to quit smoking [email or web address] Not available 05/28/2016 16:22:51 Quitting Tobacco : Care Instructions [facility] Not available 05/28/2016 16:22:51 chronic obstructive pulmonary disease (COPD): care instructions [facility] Not available 05/28/2016 16:22:51 learning about copd and how to prevent lung infections [facility] Not available 05/28/2016 16:22:51 07/01/2016 [id number] deciding about using medicines to quit smoking [facility] Not available 07/02/2016 09:50:36 Quitting Tobacco : Care Instructions [facility] Not available 07/02/2016 09:50:36 chronic obstructive pulmonary disease (COPD): care instructions [facility] Not available 07/02/2016 09:50:36 learning about copd and how to prevent lung infections [facility] Not available 07/02/2016 09:50:36 11/24/2016 [id number] deciding about using medicines to quit smoking [email or web address] Not available 11/25/2016 11:07:05 Quitting Tobacco : Care Instructions Not available 11/25/2016 11:07:05 chronic obstructive pulmonary disease (COPD): care instructions [email or web address] Not available 11/25/2016 11:07:05 learning about copd and how to prevent lung infections [email or web address] Not available 11/25/2016 11:07:05 Reason for Referral [...] [facility], Encounter Date: 03/21/2016 Cost And Risk Analysis Manager Referral for Hea ring disorder Please [...] DO Not Attach Compendium, Do Not Delete/merge, [id number] 11/24/2016 16:23:51 01/21/20 16 01/26/2016 drug scree [...] [place] [address] NG/MG CREAT POTEN TIAL SOURC ES OF [...] TAYLOR CONSU LTATI ON, PLEAS E CALL [phone]. ===== ===== ===== ===== ===== ===== ===== ===== ===== ===== ===== ===== ===== === Not Available [facility] [address], [place], [address], 01/26/2016 15:09:40 01/21/20 16 01/26/2016 drug scree n, urine pdf . Not Available [facility] [address], [place], [address], 01/26/2016 15:09:40 02/04/20 16 02/05/2016 CBC w/ manua l diff WBC 5.7 x10e3 /uL 3.4-10 .8 Not Available [facility] ([facility]) [address] [facility] [address], [place], [address], 02/07/2016 13:11:25 02/04/20 16 02/05/2016 CBC w/ manua l diff RBC 4.19 x10e6 /uL 3.77-5 .28 Not Available [facility] ([facility]) [address] [facility], [place], [address], 02/07/2016 13:11:25 02/04/20 16 02/05/2016 CBC w/ manua l diff hemoglobin 12.7 g/dL 11.1-1 5.9 Not Available [facility] ([facility]) [address] [facility], [place], [address], 02/07/2016 13:11:25 02/04/20 16 02/05/2016 CBC w/ manua l diff hematocrit 38.8 % 34.0-4 6.6 Not Available [facility] ([facility]) [address] [place], [address], 02/07/2016 13:11:25 02/04/20 16 02/05/2016 CBC w/ manua l diff MCV 93 fL 79-97 Not Available [facility] ([facility]) [address] [place], [address], 02/07/2016 13:11:25 02/04/20 16 02/05/2016 CBC w/ manua l diff MCH 30.3 pg 26.6-3 3.0 Not Available [facility] ([facility]) [address] [place], [address], 02/07/2016 13:11:25 02/04/20 16 02/05/2016 CBC w/ manua l diff MCHC 32.7 g/dL 31.5-3 5.7 Not Available [facility] ([facility]) [address] [facility], [place], [address], 02/07/2016 13:11:25 02/04/20 16 02/05/2016 CBC w/ manua l diff RDW 14.2 % 12.3-1 5.4 Not Available [facility] ([facility]) [address] [place], [address], 02/07/2016 13:11:25 02/04/20 16 02/05/2016 CBC w/ manua l diff platelets 148 x10e3 /uL 150-37 9 below low normal Not Available [facility] ([facility]) [address] [place], [address], 02/07/2016 13:11:25 02/04/20 16 02/05/2016 CBC w/ manua l diff neutrophils 75 % Not Available [facility] ([facility]) [address] [place], [address], 02/07/2016 13:11:25 02/04/20 16 02/05/2016 CBC w/ manua l diff lymphs 16 % Not Available [facility] ([facility]) [address] [place], [address], 02/07/2016 13:11:25 02/04/20 16 02/05/2016 CBC w/ manua l diff monocytes 8 % Not Available [facility] ([facility]) [address] [place], [address], 02/07/2016 13:11:25 02/04/20 16 02/05/2016 CBC w/ manua l diff eos 1 % Not Available [facility] ([facility]) [address] [place], [address], 02/07/2016 13:11:25 02/04/20 16 02/05/2016 CBC w/ manua l diff basos 0 % Not Available [facility] ([facility]) [address] [place], [address], 02/07/2016 13:11:25 02/04/20 16 02/05/2016 CBC w/ manua l diff immature cells FISH BUTCHER Not Available [facility] ([facility]) [address] [place], [address], 02/07/2016 13:11:25 02/04/20 16 02/05/2016 CBC w/ manua l diff neutrophils absolute 4.3 x10e3 /uL 1.4-7. 0 Not Available [facility] ([facility]) [address] [place], [address], 02/07/2016 13:11:25 02/04/20 16 02/05/2016 CBC w/ manua l diff lymphs (absolute) 0.9 x10e3 /uL 0.7-3. 1 Not Available [facility] ([facility]) [address] [place], [address], 02/07/2016 13:11:25 02/04/20 16 02/05/2016 CBC w/ manua l diff monocytes(ab solute) 0.5 x10e3 /uL 0.1-0. 9 Not Available [facility] ([facility]) [place], [address], 02/07/2016 13:11:25 02/04/20 16 02/05/2016 CBC w/ manua l diff eos (absolute value) 0.1 x10e3 /uL 0.0-0. 4 Not Available [facility] ([facility]) [address] [facility], [place], [address], 02/07/2016 13:11:25 02/04/20 16 02/05/2016 CBC w/ manua l diff baso(absolut e) 0.0 x10e3 /uL 0.0-0. 2 Not Available [facility] ([facility]) [address] [facility], [place], [address], 02/07/2016 13:11:25 02/04/20 16 02/05/2016 CBC w/ manua l diff NRBC FISH BUTCHER Not Available [facility] ([facility]) [address] [facility], [place], [address], 02/07/2016 13:11:25 02/04/20 16 02/05/2016 CBC w/ manua l diff differential comment FISH BUTCHER Not Available [facility] ([facility]) [address] [facility], [place], [address], 02/07/2016 13:11:25 02/04/20 16 02/05/2016 CBC w/ manua l diff RBC comment RBC'S APPEAR NORMAL . normal Not Available [facility] ([facility]) [address] [facility], [place], [address], 02/07/2016 13:11:25 02/04/20 16 02/05/2016 CBC w/ manua l diff platelet comment ADEQUA TE adequa te Not Available [facility] ([facility]) [address] [facility], [place], [address], 02/07/2016 13:11:25 02/04/20 16 02/05/2016 CMP, serum or plasm a glucose, serum 115 mg/dL 65-99 above high normal Not Available [facility] ([facility]) [address] [facility], [place], [address], 02/07/2016 13:11:26 02/04/20 16 02/05/2016 CMP, serum or plasm a hemoglobin A1C 5.9 % 4.8-5. 6 above high normal PRE-D IABET ES: 5.7 - 6.4 DIABE ROSE: >6.4 GLYCE ARON CONTR OL FOR ADULT S WITH DIABE ROSE: <7.0 Not Available [facility] ([facility]) [address] [facility], [place], [address], 02/07/2016 13:11:26 02/04/20 16 02/05/2016 CMP, serum or plasm a BUN 8 mg/dL 8-27 Not Available [facility] ([facility]) [address] [place], [address], 02/07/2016 13:11:26 02/04/20 16 02/05/2016 CMP, serum or plasm a creatinine, serum 0.85 mg/dL 0.57-1 .00 Not Available [facility] ([facility]) [address] [place], [address], 02/07/2016 13:11:26 02/04/20 16 02/05/2016 CMP, serum or plasm a eGFR if nonafricn AM 74 mL/mi n/1.7 3 >59 Not Available [facility] ([facility]) [address] [place], [address], 02/07/2016 13:11:26 02/04/20 16 02/05/2016 CMP, serum or plasm a eGFR if africn AM 85 mL/mi n/1.7 3 >59 Not Available [facility] ([facility]) [address] [place], [address], 02/07/2016 13:11:26 02/04/20 16 02/05/2016 CMP, serum or plasm a BUN/creatini ne ratio 9 11-26 below low normal Not Available [facility] ([facility]) [address] [place] [address], [address], 02/07/2016 13:11:26 02/04/20 16 02/05/2016 CMP, serum or plasm a sodium, serum 142 mmol/ L 134-14 4 EFF ECTIV E OCTOB ER 2015 THE REFER ENCE INTER NIRMALA FOR SARAH Rodriguez, SERUM WILL BE LYON ING TO: 136 - 144 Not Available [facility] ([facility]) [address] [place], [address], 02/07/2016 13:11:26 02/04/20 16 02/05/2016 CMP, serum [...] YEAR 3.5 - 5.2 Not Available [facility] ([facility]) [address] [place], [address], 02/07/2016 13:11:26 02/04/20 16 02/05/2016 CMP, serum or plasm a chloride, serum 103 mmol/ L 97-108 EFF ECTIV E OCTOB ER 2015 THE REFER ENCE INTER NIRMALA FOR CHLOR SAHIL, SERUM WILL BE LYON ING TO: 97 - 106 Not Available [facility] ([facility]) [address] [place], [address], 02/07/2016 13:11:26 02/04/20 16 02/05/2016 CMP, serum or plasm a carbon dioxide, total 24 mmol/ L 18-29 Not Available [facility] ([facility]) [address] [place], [address], 02/07/2016 13:11:26 02/04/20 16 02/05/2016 CMP, serum or plasm a calcium, serum 8.3 mg/dL 8.7-10 .3 below low normal Not Available [facility] ([facility]) [address] [place], [address], 02/07/2016 13:11:26 02/04/20 16 02/05/2016 CMP, serum or plasm a protein, total, serum 6.2 g/dL 6.0-8. 5 Not Available [facility] ([facility]) [address] [facility], [place], [address], 02/07/2016 13:11:26 02/04/20 16 02/05/2016 CMP, serum or plasm a albumin, serum 3.8 g/dL 3.6-4. 8 Not Available [facility] ([facility]) [address] [place], [address], 02/07/2016 13:11:26 02/04/20 16 02/05/2016 CMP, serum or plasm a globulin, total 2.4 g/dL 1.5-4. 5 Not Available [facility] ([facility]) [address] [place], [address], 02/07/2016 13:11:26 02/04/20 16 02/05/2016 CMP, serum or plasm a A/G ratio 1.6 1.1-2. 5 Not Available [facility] ([facility]) [address] [place] [address], [place], [address], 02/07/2016 13:11:26 02/04/20 16 02/05/2016 CMP, serum or plasm a bilirubin, total <0.2 mg/dL 0.0-1. 2 Not Available [facility] ([facility]) [address] [place], [address], 02/07/2016 13:11:26 02/04/20 16 02/05/2016 CMP, serum or plasm a alkaline phosphatase, S 97 IU/L 39-117 Not Available [facility] ([facility]) [address] [place] [address], [address], 02/07/2016 13:11:26 02/04/20 16 02/05/2016 CMP, serum or plasm a AST (SGOT) 15 IU/L 0-40 Not Available [facility] ([facility]) [address] [facility] [place], [address], 02/07/2016 13:11:26 02/04/20 16 02/05/2016 CMP, serum or plasm a ALT (SGPT) 15 IU/L 0-32 Not Available [facility] ([facility]) [address] [facility] [place], [address], 02/07/2016 13:11:26 02/04/20 16 02/05/2016 lipid panel , serum cholesterol, total 201 mg/dL 100-19 9 above high normal Not Available [facility] ([facility]) [address] [facility] [place], [address], 02/07/2016 13:11:26 02/04/20 16 02/05/2016 lipid panel , serum triglyceride s 91 mg/dL 0-149 Not Available [facility] ([facility]) [address] [place], [address], 02/07/2016 13:11:26 02/04/20 16 02/05/2016 lipid panel , serum HDL cholesterol 72 mg/dL >39 ACCOR DING TO ATP-I II GUIDE LINES , HDL-C >59 MG/DL IS CONSI DERED A NEGAT CAMPOS RISK FACTO R FOR CHD. Not Available [facility] ([facility]) [address] [facility] [place], [address], 02/07/2016 13:11:26 02/04/20 16 02/05/2016 lipid panel , serum VLDL cholesterol taylor 18 mg/dL 5-40 Not Available [facility] ([facility]) [address] [place], [address], 02/07/2016 13:11:26 02/04/20 16 02/05/2016 lipid panel , serum LDL cholesterol calc 111 mg/dL 0-99 above high normal Not Available [facility] ([facility]) [address] [place], [address], 02/07/2016 13:11:26 02/04/20 16 02/05/2016 lipid panel , serum comment: FISH BUTCHER Not Available [facility] ([facility]) [address] [place], [address], 02/07/2016 13:11:26 02/04/20 16 02/05/2016 lipid panel , serum LDL/HDL ratio 1.5 ratio _unit s 0.0-3. 2 LDL/H DL RATIO MEN WOMEN 1/2 AVG.R ISK 1.0 1.5 AVG.R ISK 3.6 3.2 2X AVG.R ISK 6.2 5.0 3X AVG.R ISK 8.0 6.1 Not Available [facility] ([facility]) [address] [place], [address], 02/07/2016 13:11:26 02/04/20 16 02/07/2016 vitam in D, 25-hy droxy , total , serum vitamin D, 25-hydroxy, serum 37 NG/mL REFER ENCE RANGE : ALL AGES: TARGE T LEVEL S 30 - 100 Not Available [facility] [address] [place] [address], [address], 02/07/2016 13:11:27 04/02/20 16 04/03/2016 gluco se slava ance test, post- 75G, 3 speci mens glucose, fasting 92 mg/dL 65-99 Not Available [facility] ([facility]) [address] [place], [address], 04/03/2016 06:12:40 04/02/20 16 04/03/2016 gluco se slava ance test, post- 75G, 3 speci mens glucose, 1/2 hour TNP TEST NOT PERFO RMED Not Available [facility] ([facility]) [address] [place], [address], 04/03/2016 06:12:40 04/02/20 16 04/03/2016 gluco se slava ance test, post- 75G, 3 speci mens glucose, 1 hour 189 mg/dL 65-199 Not Available [facility] ([facility]) [address] [place], [address], 04/03/2016 06:12:40 04/02/20 16 04/03/2016 gluco se slava ance test, post- 75G, 3 speci mens glucose, 1 1/2 hour TNP TEST NOT PERFO RMED Not Available [facility] ([facility]) [address] [place], [address], 04/03/2016 06:12:40 04/02/20 16 04/03/2016 gluco se slava ance test, post- 75G, 3 speci mens glucose, 2 hour 97 mg/dL 65-139 Not Available [facility] ([facility]) [address] [place], [address], 04/03/2016 06:12:40 04/02/20 16 04/03/2016 gluco se slava ance test, post- 75G, 3 speci mens glucose, 3 hour TNP TEST NOT PERFO RMED Not Available [facility] ([facility]) [address] [place] [address], [address], 04/03/2016 06:12:40 04/02/20 16 04/03/2016 gluco se slava ance test, post- 75G, 3 speci mens glucose, 4 hour TNP TEST NOT PERFO RMED Not Available [facility] ([facility]) [address] [place], [address], 04/03/2016 06:12:40 04/02/20 16 04/03/2016 gluco se slava ance test, post- 75G, 3 speci mens glucose, 5 hour TNP TEST NOT PERFO RMED Not Available [facility] ([facility]) [address] [place], [address], 04/03/2016 06:12:40 04/02/20 16 04/03/2016 gluco se slava ance test, post- 75G, 3 speci mens glucose, 6 hour TNP TEST NOT PERFO RMED Not Available [facility] ([facility]) [address] [facility], [place], [address], 04/03/2016 06:12:40 04/02/20 16 04/03/2016 HbA1c (hemo globi n A1c), blood hemoglobin A1C 6.0 % 4.8-5. 6 above high normal PRE-D IABET ES: 5.7 - 6.4 DIABE ROSE: >6.4 GLYCE ARON CONTR OL FOR ADULT S WITH DIABE ROSE: <7.0 Not Available [facility] ([facility]) [address] [facility], [place], [address], 04/03/2016 06:12:41 01/29/20 16 01/28/2016 bone densi ty, dual photo n absor ptiom etry No observ ation record ed. [email or web address] [facility] [address] [place], [address], 08/20/2016 09:43:33 02/21/20 16 02/21/2016 US, kidne y No observ ation record ed. [email or web address] Not Available 2015 15:40:26 05/21/19 17 05/21/2016 MRI, brain + brain stem, w/wo contr ast No observ ation record ed. strice [facility] [address] [place], [address], 07/03/2016 11:40:04 05/21/19 17 05/21/2016 MRI, cervi taylor spine , w/o contr ast No observ ation record ed. [email or web address] [facility] (Imaging) [address] [place], [address], 05/29/2016 07:28:18 06/03/19 17 06/03/2016 MAMMO , scree uziel, bilat eral No observ ation record ed. [email or web address] Not Available 07/02 15:29:02 06/27/19 17 06/27/2016 XR, chest , 2 view No observ ation record ed. [facility] (Imaging) [address] [place], [address], 07/16/2016 13:29:36 07/04/19 17 6 minut e walk test* No observ ation record ed. [facility] ([facility]) [address] [place], [address], 07/04/2016 12:37:03 Result Notes None recorded. Problems Name Problem SNOMED Code Status Onset Date Resolution Date Notes Provider Name and Address Organization Details Recorded Time Chronic obstructive pulmonary disease 27085062 Active Milena Dos Santos MD Attn: Wilmer bullock,[address] [facility], [place], [place], [address] [place] [address] 2, [facility] 6 15:15:05 Tobacco dependence syndrome 61713835 Active Milena Dos Santos MD Attn: Wilmer bullock,[address] [facility], [place], [place], [address] [place] [address] 2, [facility] 6 15:15:05 Chronic low back pain 947900652 Active Milena Dos Santos MD Attn: Wilmer bullock,[address] [facility], [place], [place], [address] [place] [address] 2, [facility] 6 15:15:05 Esophageal dysphagia 24593580 Active Milena Dos Santos MD Attn: Wilmer bullock,[address] [facility], [place], [place], [address] [place] [address] 2, [facility] 6 15:15:05 Dystonia 18509424 Active Milena Dos Santos MD Attn: Wilmer bullock,[address] [place], [place], [address] [place] [address] 2, [facility] 6 15:15:05 Osteoporosis [id number] Diandra Gonzalez RN null, [facility] 6 15:14:16 Problem Notes None recorded. Procedures Surgical History Date Name Laterality Status Provider Name and Address Organization Details Recorded Time 05/04/19 15 Mammogram screening completed Judd Valentine MA [facility] 01/21/2016 14:25:00 05/04/19 14 Diagnostic colonoscopy completed Judd Valentine MA [facility] 01/21/2016 14:25:00 05/04/19 09 Screening pap smear by phys completed Judd Valentine MA [facility] 01/21/2016 14:25:00 Dilation and Curettage completed Judd Valentine ROSS [facility] 01/21/2016 14:25:00 Tonsillectomy completed Judd Valentine MA [facility] 01/21/2016 14:25:00 Hysterectomy completed Judd Valentine MA [facility] 01/21/2016 14:25:00 Appendectomy completed Judd Valentine [facility] 01/21/2016 14:25:00 Imaging Results None recorded. Procedure Notes None recorded. Medical Equipment None Reported. Allergies Allergen ID Allergen Name Allergen Category Reaction Reaction Severity Criticality Documentation Date Start Date Code Code System Note Provider Name and Address Organization Details Recorded Time 21505 Product containin g penicilli n (product) medicatio n Not available Not available Not available 01/21/2016 34129 8001 [facility]ED [facility] 6 14:24:59 92567 Demerol medicatio n itching Not available Not available 01/21/2016 91961 1 RxNorm [facility] 6 14:24:59 Medications Name Sig Start Date Stop Date [...] propionate 50 mcg/actuatio n nasal spray,suspen haleigh [place] 1 spray every day by intranasal route. [...] Avai lable Vitals Date Recorded Body height Body weight Body mass index (BMI) Body temperature Oxygen saturation Oxygen saturation in Arterial blood by Pulse oximetry Heart rate Systolic blood pressure Diastolic blood pressure Provider Name and Address Organization Details Last Updated DateTime 7 169.545 cm 72481.4 8 g 19.8 kg/m2 97.9 [degF] 96 % 96 % 85 /min 126 mm[Hg] 66 mm[Hg] Judd Valentine [place] [facility] 7 16:04:46 Date Recorded Body height Body weight Body mass index (BMI) Body temperature Oxygen saturation Oxygen saturation in Arterial blood by Pulse oximetry Heart rate Systolic blood pressure Diastolic blood pressure Provider Name and Address Organization Details Last Updated DateTime 7 169.545 cm 75300.7 g 19.3 kg/m2 98.1 [degF] 92 % 92 % 80 /min 124 mm[Hg] 68 mm[Hg] Judd Valentine [place] [facility] 7 17:15:45 Date Recorded Body height Body mass index (BMI) Body weight Body temperature Oxygen saturation Oxygen saturation in Arterial blood by Pulse oximetry Heart rate Systolic blood pressure Diastolic blood pressure Provider Name and Address Organization Details Last Updated DateTime 7 169.545 cm 20.5 kg/m2 79609.2 9 g 97.7 [degF] 95 % 95 % 90 /min 130 mm[Hg] 70 mm[Hg] Judd Valentine [place] [facility] 7 15:30:39 Date Recorded Body height Heart rate Body weight Oxygen saturation Oxygen saturation in Arterial blood by Pulse oximetry Body mass index (BMI) Body temperature Systolic blood pressure Diastolic blood pressure Provider Name and Address Organization Details Last Updated DateTime 6 169.545 cm 71 /min 36956.3 28993 g 96 % 96 % 18.9 kg/m2 98.3 [degF] 144 mm[Hg] 70 mm[Hg] Judd Valentine [place] [facility] 6 14:25:00 Date Recorded Body height Body weight Body mass index (BMI) Body temperature Oxygen saturation Oxygen saturation in Arterial blood by Pulse oximetry Heart rate Systolic blood pressure Diastolic blood pressure Provider Name and Address Organization Details Last Updated DateTime 6 169.545 cm 78450.7 1 g 19.3 kg/m2 98.3 [degF] 95 % 95 % 88 /min 104 mm[Hg] 60 mm[Hg] Judd Valentine [place] [facility] 6 16:32:19 Social History None recorded. Functional Status Question Answer Note LastModified by Organizat ion Details LastModified Time What is your level of alcohol consumption? Moderate Rum & Coke -- weekends [email or web address] Information not available 01/21/2016 Mental Status None recorded. Family History Relationship Description Onset Age of this Age Resolved Age Notes LastModified by Organization Details LastModified Time Father Harmful pattern of use of alcohol [email or web address] Not available 01/20 14:25:00 Father Cerebrovascu lar accident [email or web address] Not available 14:25:00 Sister Harmful pattern of use of alcohol [email or web address] Not available 01/20 14:25:00 Sister Suspected [...] vaccine, vector-nr, rS-Ad26, PF, 0.5 mL 07/09/2020 omari Maria null, [place] [facility] 11/07/2020 16:13:26 pneumococcal, unspecified formulation 05/04/2005 completed Judd Valentine MA null, [place] - [facility] 01/21/2016 14:25:00 Past Encounters Encounter ID Performer Location Encounter Start Date Encounter Closed Date Diagnosis/Indication Diagnosis SNOMED-CT Code Diagnosis ICD10 Code Diagnosis Note [id number] Milena Dos Santos MD [facility] (Adult Med) [address] [place] [address] 01/21/2016 13:44:23 01/21/2016 18:02:47 Chronic obstructive pulmonary disease 70335864 J44.9 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 Chronic low back pain 27 7054656 M54.5 Esophageal dysphagia 408 27471 R13.19 Adult heal th examination 162407656 Z00.00 Screening for osteoporosis 930714543 Z13.820 Dystonia 58550723 G24.9 [id number] Milena Dos Santos MD [facility] (Adult Med) [address] [place] [address] 03/21/2016 15:52:50 03/21/2016 17:46:52 Chronic obstructive pulmonary disease 40614193 J44.9 Tobacco de pendence syndrome 28732544 F17.290 Osteopenia 621433312 M85 .9 Mass of skin 192104940 R 22.9 Screening for malignant neoplasm of colon 890193300 Z12.11 Hearing disorder 4227152 05 H91.93 Screening mammography 24 361566 Z12.31 Hyperglycemia 14572302 R 73.9 [id number] MD [facility] Col[facility] (Adult Med) [address] [place] [address] 05/28/2016 15:44:26 05/28/2016 16:35:56 Chronic obstructive pulmonary disease 73212838 J44.9 Tobacco de pendence syndrome 61214760 F17.290 Dystonia 66799348 G24.9 She has been seen by a neurologis t on the rgular basis. Chronic low back pain 27 9820208 M54.5 Esophageal dysphagia 408 07021 R13.19 She had upper EGD scopic ex. by a GI specialist and was dilated and recently had unremarkab le colonoscop y ex by GI specialist as well. Osteoporosis 99220436 M8 1.0 Osteopenia 041849758 M85 .9 [id number] MD [facility] Colind[facility] (Adult Med) [address] [place] [address] 07/01/2016 15:40:48 07/01/2016 18:04:54 Chronic obstructive pulmonary disease 03141356 J44.9 Will have nurse arrange the 6 minutes walking test to see if she is qualified for the home oxygen, Jennifer won't give such choice on the computer. Tobacco de pendence syndrome 33318085 F17.290 She is on the nicotine patch for quitting cigarettes . [id number] MD [facility] Col[facility] (Adult Med) [address] [place] [address] 11/24/2016 14:30:40 11/24/2016 17:09:34 Pharyngitis 952079849 J02.9 Thrash. Chronic ob structive pulmonary disease 64378442 J44.9 Will have nurse arrange the 6 minutes walking test to see if she is qualified for the home oxygen, Jennifer won't give such choice on the computer. Tobacco de pendence syndrome 53625848 F17.290 She is on the nicotine patch for quitting cigarettes . Pain of mu ltiple joints 88380689 M25.50 Had been on sertraline . Chronic low back pain 27 7400887 M54.5 Same as sertraline . Lumbar radiculopathy 128 300170 M54.16 Health Concerns Section Related Observation LastModified by Organization Detai ls LastModified Time None Recorded Concern Status LastModified by Organization Details LastModified Time None Recorded Advance Directives Directive None Recorded Payers Encounter Date Sequence Insurance Name Policy Number Policy Granados Covered Member ID Granados Member ID Guarantor Name 01/21/2016 1 [place] Melyssa A [place] [id number] A Melyssa Cal 01/21/2016 2 [place] Melyssa [place] [id number] Melyssa Cal 03/21/2016 1 [place] A [place] [id number] A Melyssa Cal 03/21/2016 2 [place] Melyssa [place] [id number] Melyssa Cal 05/28/2016 1 [place] A [place] [id number] A Melyssa Cal 05/28/2016 2 [place] Melyssa Cal [id number] Melyssa Cal 07/01/2016 1 [place] A [place] [id number] A Melyssa Cal 07/01/2016 2 [place] Melyssa [place] [id number] Melyssa Cal 11/24/2016 1 [place]a A [place] [id number] A Melyssa Cal Notes Date Note Type [...] Milena Dos Santos MD Attn: Accounting,[address] [facility], [place], [address], [facility] 01/21/2016 15:15:32 03/21/2016 text/html She has gone to GI specialist for dilatation of esophageal stricture, her food regurgitaion has resolved and no more aspiration /or pneumonia and has gained weight after the improving appetite and oral intake but still smokes cigarettes. Milena Dos Santos MD Attn: Accounting,[address] [facility], [place], [address], [facility] 03/21/2016 17:39:07 11/24/2016 text/html She is happy abo ut that her ears can hear well again. and she had benign lump removed on her right thigh, had seen GI doctor for her esophageal dysphagia, still smokes cigarettes , using inhalers, chronic throat sore . Allergic to penicillins and demerol. Milena Dos Santos MD Attn: Accounting,[address] [facility], [place], [address], [facility] 11/24/2016 17:07:30 OBGyn Episode No OBEpisode recorded.
--- OUTSIDE RECORDS SUMMARY | 2024-10-03 18:09 | XMS_ITS | Continuity of Care Document ---
Author Organization [facility] Address [address] [facility] [address] [place] [address] Phone Care Team Providers Care Natural Resources Extension Educator Name Role Phone Sherif Doyle MD Unavailable Unavailable Allergies, Adverse Reactions, Alerts Substance Reaction Status Criticality PENICILLIN G POTASSIUM Active No In formation MEPERIDINE HCL Active No Informatio n Medications Medication Instructions Dosage Effective Dates (start - stop) Status Comments METHADOSE 5 MGTABLET tk 2 ts qd - Acti ve Lidoderm 5 % (700 mg/patch) Adhesive Patch - Active Miacalcin 200 unit/Actuation Nasal [place] Aerosol 1 spray each nostril qd - [...] on Encounter [facility], [address], [id number], [place] tel:[phone] [facility] No Information 6 Vivek Gorman. [address] [place] [address], [id number] , [place]. tel:[phone] Offic/outpt E&m Estab Minor 10 [facility], [address] [address], [place], [place], [address], [place] tel:[phone] [facility] No Information 6 José Luis Sullivan. [address] [facility], [address], [id number] , [place]. tel:[phone] Referring Provider: Nate Ordonez V, [address], [address] . tel:[phone] [facility], [address], [place], [place], [address], [place] tel:[phone] [facility] No Information 6 José Luis Sullivan. [address], [place], [place], [id number] , [place]. tel: [phone] Referring Provider: Nate Ordonez V, [address], [place], [address] . tel:[phone] [facility], [address], [place], [place], [address], [place] tel:[phone] [facility] No Information 6 José Luis Sullivan. [address], [place], [place], [address] , [place]. tel: [phone] Referring Provider: Nate Ordonez V, [address], [place], [address] . tel:[phone] Offic/outpt E&m Estab Low-mod [facility], [address], [place], [place], [address], [place] tel:[phone] [facility] No Information 6 José Luis Sullivan. [address], [place], [place], [address] , [place]. tel:[phone] Referring Provider: Nate Ordonez V, [address], [place], [address] . tel:[phone] Offic/outpt E&m Estab Low-mod [facility], [address], [place], [place], [address], [place] tel:[phone] [facility] No Information 6 José Luis Sullivan. [address], [address], [place], [place], [address] , [place]. tel: [phone] Referring Provider: Nate Ordonez V, [address], [place], [address] . tel:[phone] Offic/outpt E&m Estab Minor 10 [facility], [address], [place], [place], [address], [place] tel:[phone] [facility] No Information May-0 9-200 6 José Luis Sullivan. [address], [address], [place], [place], [address] , [place]. tel:[phone] Referring Provider: Nate Ordonez V, [address], [place], [address] . tel:[phone] [facility], [address], [place], [place], [address], [place] tel:[phone] [facility] No Information May-0 5-200 6 José Luis Sullivan. [address], [place], [place], [address] , [place]. tel:[phone] Referring Provider: Nate Ordonez V, [address], [place], [address] . tel:[phone] [facility], [address], [place], [place], [address], [place] tel:[phone] [facility] No Information May-0 2-200 6 José Luis Sullivan. [address], [place], [place], [id number] , [place]. tel:[phone] Referring Provider: Nate Ordonez V, [address], [place], [address] . tel:[phone] [facility], [address], [place], [place], [address], [place] tel:[phone] [facility] No Information Apr-2 8-200 6 Ordonez Nate. [address], [address], [place], [place], [address] , [place]. tel:[phone] Referring Provider: Nate Ordonez V, [address], [place], [address] . tel:[phone] [facility], [address], [place], [place], [address], [place] tel:[phone] [facility] No Information Aug- 5-200 6 José Luis Sullivan. [address], [place], [place], [address] , [place]. tel:[phone] Referring Provider: Nate Ordonez V, [address], [place], [address] . tel:[phone] [facility], [address], [place], [place], [address], [place] tel:[phone] [facility] No Information 6 José Luis Sullivan. [address], [place], [place], [address] , [place]. tel:[phone] Referring Provider: Nate Ordonez V, [address], [place], [address] . tel:[phone] [facility], [address], [place], [place], [address], [place] tel:[phone] [facility] No Information 200 6 José Luis Sullivan. [address], [place], [place], [address] , [place]. tel:[phone] Referring Provider: Nate Ordonez V, [address], [place], [address] . tel:[phone] Offic Cons New/estab Mod-hi 60 [facility], [address], [place], [place], [address], [place] tel:[phone] [facility] No Information 8-200 6 José Luis Sullivan. [address], [facility] [address], [place], [place], [id number] , [place]. tel:[phone] Referring Provider: Nicho Goldstein MD B, [address] [place], [address]. tel:[phone] Family History Family Member Type Diagnosis Age At Onset Gen Fam Hx Problem (finding) Stroke Gen Fam Hx Problem (finding) Cancer Payers Payer name Insurance type Covered constitution party ID Authorstepha jevon(s) BCBS Of [facility] [id number] Social History Type Description Quantity Date Captured [...]
[2024-10-03 18:19] VITALS: BP 134/67; PULSE 97; RESP 18; TEMP 36.6; O2SAT 96
--- NOTE | 2024-10-03 21:54 | PC.NURSE ---
Patient deciding to go home-advised to follow up in Lane portal, ice and elevation and follow up with PMD-return for worsening symptoms
--- OUTSIDE RECORDS SUMMARY | 2024-10-03 22:36 | XMS_ITS | Clinical Summary ---
Author Organization [facility] Address [address] [place] [address] Care Team Providers Care Stopping Builder Name Role Phone Tommy King DO Primary Care Provider [phone] Allergies Active Allergy Reactions Criticality Noted Date [...] on file Legal Sex Female 4:04 AM SKIDWAY MAN Gender Identity Not on file Sexual Orientation [...] of Treatment Not on file Insurance MEDICARE I[place] MEDICARE IDAZ MEDICARE Care Teams Stopping Builder Relationship Specialty Start Date End Date Tommy King DO PCP - General Internal Medicine 09/11/20
--- OUTSIDE RECORDS SUMMARY | 2024-10-03 22:36 | XMS_ITS | Continuity of Care Document ---
Author Organization [facility] Address [address] [facility] [address] [place] [address] Phone Care Team Providers Care City Planning Engineer Name Role Phone Sherif Doyle MD Unavailable Unavailable Allergies, Adverse Reactions, Alerts Substance Reaction Status Criticality PENICILLIN G POTASSIUM Active No In formation MEPERIDINE HCL Active No Informatio n Medications Medication Instructions Dosage Effective Dates (start - stop) Status Comments METHADOSE 5 MGTABLET tk 2 ts qd - Acti ve Lidoderm 5 % (700 mg/patch) Adhesive Patch - Active Miacalcin 200 unit/Actuation Nasal [place] Aerosol 1 spray each nostril qd - [...] on Encounter [facility], [address], [id number], [place] tel:[phone] [facility] No Information 6 Vivek Gorman. [address] [place] [address], [id number] , [place]. tel:[phone] Offic/outpt E&m Estab Minor 10 [facility], [address] [address], [place], [place], [address], [place] tel:[phone] [facility] No Information 6 José Luis Sullivan. [address] [facility], [address], [id number] , [place]. tel:[phone] Referring Provider: Nate Ordonez V, [address], [address] . tel:[phone] [facility], [address], [place], [place], [address], [place] tel:[phone] [facility] No Information 6 José Luis Sullivan. [address], [place], [place], [address] , [place]. tel: [phone] Referring Provider: Nate Ordonez V, [address], [place], [address] . tel:[phone] [facility], [address], [place], [place], [address], [place] tel:[phone] [facility] No Information 6 José Luis Sullivan. [address], [place], [place], [address] , [place]. tel: [phone] Referring Provider: Nate Ordonez V, [address], [place], [address] . tel:[phone] Offic/outpt E&m Estab Low-mod [facility], [address], [place], [place], [address], [place] tel:[phone] [facility] No Information 6 José Luis Sullivan. [address], [place], [place], [address] , [place]. [phone] Referring Provider: Nate Ordonez V, [address], [place], [address] . tel:[phone] Offic/outpt E&m Estab Low-mod [facility], [address], [place], [place], [address], [place] tel:[phone] [facility] No Information 6 José Luis Sullivan. [address], [place], [place], [address] , [place]. tel: [phone] Referring Provider: Nate Ordonez V, [address], [place], [address] . tel:[phone] Offic/outpt E&m Estab Minor 10 [facility], [address], [place], [place], [address], [place] tel:[phone] [facility] No Information May-0 9-200 6 José Luis Sullivan. [address], [place], [place], [address] , [place]. tel:[phone] Referring Provider: Nate Ordonez V, [address], [place], [address] . tel:[phone] [facility], [address], [place], [place], [address], [place] tel:[phone] [facility] No Information May-0 5-200 6 José Luis Sullivan. [address], [place], [place], [address] , [place]. tel:[phone] Referring Provider: Nate Ordonez V, [address], [place], [address] . tel:[phone] [facility], [address], [place], [place], [address], [place] tel:[phone] [facility] No Information May-0 2-200 6 José Luis Sullivan. [address], [place], [place], [address] , [place]. tel:[phone] Referring Provider: Nate Ordonez V, [address], [place], [address] . tel:[phone] [facility], [address], [place], [place], [address], [place] tel:[phone] [facility] No Information Apr-2 8-200 6 Ordonez Nate. [address], [place], [place], [address] , [place]. tel:[phone] Referring Provider: Nate Ordonez V, [address], [place], [address] . tel:[phone] [facility], [address], [place], [place], [address], [place] tel:[phone] [facility] No Information Aug- 5-200 6 José Luis Sullivan. [address], [place], [place], [address] , [place]. tel:[phone] Referring Provider: Nate Ordonez V, [address], [place], [address] . tel:[phone] [facility], [address], [place], [place], [address], [place] tel:[phone] [facility] No Information 6 José Luis Sullivan. [address], [place], [place], [address] , [place]. tel:[phone] Referring Provider: Nate Ordonez V, [address], [place], [address] . tel:[phone] [facility], [address], [place], [place], [address], [place] tel:[phone] [facility] No Information 200 6 José Luis Sullivan. [address], [place], [place], [address] , [place]. tel:[phone] Referring Provider: Nate Ordonez V, [address], [place], [address] . tel:[phone] Offic Cons New/estab Mod-hi 60 [facility], [address], [place], [place], [address], [place] tel:[phone] [facility] No Information 8-200 6 José Luis Sullivan. [address], [facility] [address], [place], [place], [address] , [place]. tel:[phone] Referring Provider: Nicho Goldstein MD B, [address] [place], [address]. tel:[phone] Family History Family Member Type Diagnosis Age At Onset Gen Fam Hx Problem (finding) Cancer Gen Fam Hx Problem (finding) Stroke Payers Payer name Insurance type Covered constitution party ID Authorstepha jevon(s) BCBS Of [facility] [id number] Social History Type Description Quantity Date Captured [...]
--- OUTSIDE RECORDS SUMMARY | 2024-10-03 22:36 | XMS_ITS | Referral Summary ---
Author Organization [facility] Address [address] [place] [address] Care Team Providers Care Supervisor Ditching Name Role Phone Tommy King DO Primary Care Provider [phone] Allergies Active Allergy Reactions Criticality Noted Date [...] on file Legal Sex Female 4:04 AM HEAD CHARGER Gender Identity Not on file Sexual Orientation [...] Treatment Not on file [place] [address] MEDICARE IDPA MEDICARE [facility] Address: [address] [address] [place] [address] Care Teams Supervisor Ditching Relationship Specialty Start Date End Date Tommy King DO PCP - General Internal Medicine 09/11/20
--- OUTSIDE RECORDS SUMMARY | 2024-10-03 22:36 | XMS_ITS | Clinical Summary ---
Author Organization [facility] [employer] Address [address] [place] [address] Care Team Providers Care Firefighter Marine Name Role Phone Tommy King DO Primary Care Provider [phone] Source Comments [facility],non-owned Affiliates and Associated Physician Practices is amultiple site organization consisting of ambulatory clinics and hospital sitesin [place], [place] and [place]. This disclosure is being madepursuant to the Care Everywhere program and may not contain all information available regarding this patient. Last updated 18.[facility] Allergies Active Allergy Reactions Criticality Noted [...] fluticasone propionate (FLONASE) 50 MCG/ACT nasal spray [place] 2 sprays into the nose once daily [...] 36.8 C (98.3 F) 06/12/2021 10:53 AM GASTROENTEROLOGIST Respiratory Rate 18 05/23/2021 12:51 PM GASTROENTEROLOGIST Oxygen Saturation 91% 08/05/2021 9:59 AM CDT [...] this topic Medical Devices Implanted Type Area Real Estate Intern Device Identifier Shelf Expiration Date Model / Serial / Lot Lead Nrstm 60cm Penta 3mm Pdl 16 [facility] - [id number] Implanted:Qty: 1 on 05/23/2021 by Esau Rose MD at [facility] Back [employer] 10/19/2022 [id number] / [id number] / Slnt Dura Duraseal Pg Trilysine Amine 5 Implanted:Qty: 1 on 05/23/2021 by Esau Rose MD at [facility] Back [employer] Erendira [id number] / / [id number] Gntr Nrstm 1.95inx2.19in [employer]claim Elt - [id number] Implanted:Qty: 1 on 05/23/2021 by Esau Rose MD at [facility] Left: Back [employer] 03/26/2023 [id number] / [id number] / Insurance MEDICARE MEDICAID - [place] [employer] MANAGED MEDICARE ADV MEDICAID SPENDDOWN - [place] SELF PAY NO INSURANCE Member Subscriber Plan / Payer (Ef fective for All Dates) Name:Melyssa Mccall Member ID:Not on file Relation to Subscriber:Not on file Name:MELYSSA MCCALL Subscriber ID:Not on file (Home) Address: [address] [place] [address] [place] [address] Payer ID:Not on file Group ID:Not on file Type:Self Pay Address: [facility] MANAGED MEDICARE [facility] MEDICARE MEDICAID - OUT OF STATE Care Teams Firefighter Marine Relationship Specialty Start Date End Date Tommy King DO PCP - General Internal Medicine 04/23/21
== END 2024-10-03 21:54 | disposition left against medical advice (07) ==
LOC: ANHED 22:34
PROVIDERS: Emergency Provider Emergency Medicine; PCP Family Medicine
DX: S99.921A Unspecified injury of right foot, initial encounter (principal)
CPT/HCPCS: 73630; 99199

== ENCOUNTER 2024-10-21 08:46 | Outpatient (CLI) | payer MEDICARE, MEDICAID, SELFPAY ==
--- NOTE | 2024-10-21 14:26 | WPDSIXMINUTE ---
Six Minute Walk Procedure Procedure Performed Pulmonary Stress Test (6 min walk) Six Minute Walk Six Minute Walk: This is a 6 minute walk test. The test was performed and interpreted in accordance with the 2014 ERS/ATS task force guidelines. Of note, patient use 2 liters/minute with activity and used a walker for stability Findings: The patient's resting room air oxygen saturation measured by pulse oximetry was 96%, the heart rate was 94 bpm, and the modified Naomi dyspnea score was 0. Patient ambulated using 2 L nasal cannula for 244 meters and oxygen saturation remained 92 to 93%. At the end of the study the heart rate was 100 bpm and the modified Naomi dyspnea score was 2. The patient did not have desaturations at rest on room air and did not have desaturations with ambulation on 2 L nasal cannula.. There are no prior studies for comparison.
--- NOTE | 2024-10-21 14:29 | WPDPFTINT ---
PFT Procedure Performed PFT Procedure Performed Spirometry with Pre/Post Bronchodilator Plethysmography (Lung Vol) Diffusing Cap (DLCO) Flow Vol Loop PFT Interpretation This is a pulmonary function test with pre and post-bronchodilator spirometry, plethysmography and diffusing capacity. The test was performed and results interpreted in accordance with the 2019 and 2005 ATS/ERS Task Force guidelines respectively using the Global Lung Function Initiative-2012 reference equations. Patient demonstrated good effort and cooperation. Reproducibility criteria were met. The quality of the pre bronchodilator spirometry maneuver was Grade A and post bronchodilator spirometry maneuver was Grade A. Of note, patient was very lethargic during the testing and had to wake herself up numerous times. Findings: Spirometry: There is decreased maximal expiratory airflow at all lung volumes with concave expiratory flow tracing. The contour the inspiratory flow tracing is normal. The pre bronchodilator FVC is 2.53 L, 81% predicted. The pre bronchodilator FEV1 is 0.85 L, 36% predicted. The pre bronchodilator FEV1: FVC ratio is 34%. The post bronchodilator FVC is 2.46 L, representing a 3% decrease. The post bronchodilator FEV1 is 0.88 L, representing a 4% increase. The post bronchodilator FEV1: FVC ratio is 36%. Plethysmography: The total lung capacity is 6.36 L, 116% predicted. The functional residual capacity is 5.05 L, 160% predicted. The residual volume is 3.75 L, 159% predicted. The residual volume: Total lung capacity ratio is 59%. Diffusing capacity: The diffusing capacity unadjusted for hemoglobin and carboxyhemoglobin is 4.2, 19% predicted. The diffusing capacity adjusted for alveolar volume is 1.23, 30% predicted. In comparison to previous pulmonary function testing on 12/14/2019 the post bronchodilator FVC has decreased from 3.45 L to 2.46 L. The post bronchodilator FEV1 is decreased from 1.69 L to 0.88 L. The total lung capacity is unchanged from 6.05 L to 6.36 L. The functional residual capacity is increased from 3.94 L to 5.05 L. The residual volume has increased from 2.92 L to 3.75 L. The diffusing capacity unadjusted for hemoglobin and carboxyhemoglobin is decreased from 6.7 to 4.2. The diffusing capacity adjusted for alveolar volume has decreased from 1.50 to 1.23. Impression: There is a severe obstructive abnormality. There is no significant improvement after inhaling a single dose of albuterol. The increase in residual volume to total lung volume ratio is consistent with hyperinflation from an obstructive abnormality. The diffusing capacity unadjusted for hemoglobin and carboxyhemoglobin is severely decreased and remains severely decreased when adjusted for alveolar volume. In comparison to previous pulmonary function testing on 12/14/2019 there has been a greater than anticipated time dependent decrease in the FVC, FEV1 and diffusing capacity. There has been a greater than anticipated time dependent increase in the functional residual capacity and residual volume with no significant change in the total lung capacity. Clinical correlation is recommended.
== END 2024-10-21 08:47 | disposition home or self-care (01) ==
LOC: ANHPFT 08:47
PROVIDERS: PCP Family Medicine; Visit Provider Internal Medicine Pulmonary Disease
DX: R94.2 Abnormal results of pulmonary function studies (principal); J44.9 Chronic obstructive pulmonary disease, unspecified; Z87.891 Personal history of nicotine dependence
CPT/HCPCS: 94060; 94618; 94726; 94729

== ENCOUNTER 2024-10-21 08:50 | Outpatient (CLI) | payer MEDICARE, MEDICAID, SELFPAY ==
--- NOTE | ~2024-10-21 | CT_ITS ---
CT Scan of the Chest without Contrast: Clinical Indication: COPD Technique: Contiguous sections were acquired throughout the chest without intravenous contrast. Dose reduction technique was used on this scan by utilizing automated exposure control and iterative recon struction technique. The dose-length product (DLP) was 140.62 mGy-cm. COMPARISON: 08/31/2024 Findings: There is no evidence of any significant mediastinal, hilar or axillary lymphadenopathy. There are ext ensive atherosclerotic calcifications of the aorta and coronary arteries. There is no evidence of pleural or pericardial effusion. Chronic biapical scarring and calcification noted. There is severe emphysema. Irregular consolidation with cystic or cavitary change in the right upper lobe is probably minimally increased in extent fro m prior exam. Images through the upper abdomen reveal no abnormalities. Impression: Irregular right upper lobe consolidation with cystic or cavitary changes, mildly increased in extent from prior exam. This is compatible with persistent and mildly worsening pneumonia. Underlying neopla stic disease not completely excluded. Severe emphysema stable biapical scarring and pleural calcification the lung apices. Reviewed, dictated and finalized at location M. Impression: Irregular right upper lobe consolidation with cystic or cavitary changes, mildl y increased in extent from prior exam. This is compatible with persistent and m ildly worsening pneumonia. Underlying neoplastic disease not completely exclude d. Severe emphysema stable biapical scarring and pleural calcification the lung ap ices.
== END 2024-10-21 08:51 | disposition home or self-care (01) ==
PROVIDERS: PCP Family Medicine; Visit Provider Physician Assistant
DX: J98.4 Other disorders of lung (principal); J43.9 Emphysema, unspecified; J94.8 Other specified pleural conditions; J96.11 Chronic respiratory failure with hypoxia; J18.9 Pneumonia, unspecified organism
CPT/HCPCS: 71250

== ENCOUNTER 2024-11-01 05:08 | Inpatient (IN) | payer MEDICARE, MEDICAID, SELFPAY ==
[2024-11-01] VITALS (27 sets, daily range): BP systolic 122–140; BP diastolic 53–67; PULSE 89–114; RESP 16–25; TEMP 36.3–36.7; O2SAT 97–100; BMI 13.6
--- NOTE | ~2024-11-01 | XR_ITS ---
Clinical Indication: Shortness of breath PA and lateral views of the chest: Comparison: 09/06/2024 Findings: COPD pattern of the lungs is present. There is patchy right upper lobe airspace disease nika emmy mildly worsened from prior exam, suspicious for pneumonia with superimposed underlying chronic sc arring. Cardiomediastinal silhouette is within normal limits. Bones and soft tissues are unremarkabl e. Impression: Suspected right upper lobe pneumonia with associated underlying chronic scarring. COPD. Reviewed, dictated and finalized at location M. Impression: Suspected right upper lobe pneumonia with associated underlying chronic scarrin g. COPD.
--- NOTE | ~2024-11-01 | CT_ITS ---
Clinical Indication: Chest pain, shortness of breath CT Scan of the Chest with Contrast: Technique: Contiguous sections were acquired throughout the chest after intravenous administration of 100 cc of Omnipaque 350. Dose reduction technique was used on this scan by utilizing automated expos ure control and iterative reconstruction technique. The dose-length product (DLP) was 164.89 mGy-cm. COMPARISON: 10/21/2024 Findings: There is no evidence of any significant mediastinal, hilar or axillary lymphadenopathy. There is no f illing defect in the pulmonary arterial tree to suggest pulmonary embolus. There is no evidence of ao rtic dissection or aneurysm. There is no evidence of pleural or pericardial effusion. There is worsening patchy consolidation and interstitial thickening extensively involving the right u pper lobe. Severe emphysema present. Images through the upper abdomen reveal partially imaged 2.7 cm enhancing mass in the inferior right hepatic lobe (axial image 212).. Impression: No evidence of pulmonary embolus, aortic dissection, or aortic aneurysm. Significant worsening of patchy airspace consolidation and interstitial thickening overload, compatib le significant worsening of pneumonia. Central right upper lobe airspace opacity with cavitary or cys tic change is again present, which could reflect underlying neoplastic disease or treated disease nika emmy pneumonia. Severe emphysema. Reviewed, dictated and finalized at location M. Impression: No evidence of pulmonary embolus, aortic dissection, or aortic aneurysm. Significant worsening of patchy airspace consolidation and interstitial thicken ing overload, compatible significant worsening of pneumonia. Central right uppe r lobe airspace opacity with cavitary or cystic change is again present, which could reflect underlying neoplastic disease or treated disease versus pneumonia . Severe emphysema.
--- NOTE | ~2024-11-01 | US_ITS ---
EXAM: ABDOMEN ULTRASOUND HISTORY: Liver lesion COMPARISON: Reference was made to multiple prior cross-sectional imaging studies performed [facility] on 11/01/2024 at 6:00 AM and dating back to 10/15/2023 FINDINGS: LIVER: Within segment 4/5 of the liver is a well-circumscribed focus of mixed echogenicity measuring 26 x 18 x 23 mm, corresponding to the abnormality seen on recent CT examination of the chest. This fo cus demonstrates internal vascularity for which a malignancy is suspected. This focus is amenable to percutaneous biopsy, should that he come necessary. The remainder of the liver is otherwise unremarkable in echogenicity and size. The portal vein is patent, demonstrating hepatopedal flow. GALLBLADDER: Contracted and otherwise unremarkable. BILE DUCTS: Common bile duct measures 3.4mm. PANCREAS: Limited evaluation of the pancreas secondary to overlying bowel gas IMPRESSION: Findings within segment 4/5 of the liver for which malignancy is suspected. This focus is amenable to percutaneous biopsy. Reviewed, dictated and finalized at location A.
--- NOTE | ~2024-11-01 | US_ITS ---
EXAMINATION: Limited ultrasound of the liver. US biopsy liver DATE: 11/02/2024 18:44 Fur Blower: Susannah Anderson M.D. TECHNIQUE: The procedure including the risks, benefits, and alternatives was discussed with the patie nt. Risks discussed included bleeding and infection. The patient understood the risks and benefits and agreed to proceed. Limited ultrasound examination was performed of liver to determine optimal site for biopsy. The skin overlying the right upper quadrant was prepped and draped in usual sterile fashion. Anesthe tic was administered with 1% lidocaine subcutaneously as well as within the capsule of the liver. A 17G introducer was placed utilizing continuous ultrasound guidance into the lesion, and the inner n eedle removed. An 18-gauge biopsy device was then used to obtain 4 biopsy specimens under continuous sonographic juanita dance. The biopsy device was then removed, and specimen was placed immediately into formalin without cold ischemia time. A Gelfoam slurry was then utilized for hemostasis. Postbiopsy imaging was without active extravasation from the liver. No perihepatic collection was appreciated. A sterile dressing was then applied (Steri-Strips, which should be allowed to fall off on their own). There were no immediate complications. The patient tolerated the procedure without difficulty, and was returned via stretcher to her room in good condition. IMPRESSION: 1. Technically successful ultrasound-guided core biopsy of a hyperechoic lesion within the liver. Reviewed, dictated and finalized at location A.
--- OUTSIDE RECORDS SUMMARY | 2024-11-01 05:11 | XMS_ITS | Data Portability ---
Author Organization [facility], Main Office Address [address] [place] [address] Assessment Encounter Date Assessment Date Assessment LastModified by Organization Details LastModified Time 11/20/2022 11/20/2022 This note is dictated and transcribed by [employer]. Color Buffer variances may occur. Despite proofreading, typographical errors may occur. [email or web address] Not available 11/20/2022 16:36:51 Plan of Treatment [...] Recorded Time Metatarsalg ia of right foot 9707961969016 00 Active 2022 Shemar Fairchild DPM [address], [address], [place], [address], [facility] 3 16:36:55 Foot callus 045868705 Active 2022 Shemar Fairchild DPM [address], [address], [place], [address], [facility] 3 16:36:59 Hammer toe 630586342 Active 2022 Shemar Fairchild DPM [address], [address], [place], [address], [facility] 3 16:37:19 Problem Notes None recorded. Procedures Surgical History Date Name Laterality Status Provider Name and Address Organization Details Recorded Time Hysterectomy, Partial completed Joycelyn Bean [facility] 11/20/2022 16:57:02 Appendectomy completed Joycelyn Bean [facility] 11/20/2022 16:57:06 Total hysterectomy completed Joycelyn Bean [facility] 11/20/2022 16:57:18 release of trigger finger completed Joycelyn Bean [facility] 11/20/2022 16:57:28 Tonsillectomy completed Joycelyn Bean [facility] 11/20/2022 16:57:34 Imaging Results None recorded. Procedure Notes None recorded. Medical Equipment None Reported. Allergies Allergen ID Allergen Name Allergen Category Reaction Reaction Severity Criticality Documentation Date Start Date Code Code System Note Provider Name and Address Organization Details Recorded Time 46632 Product containin g penicilli n (product) medicatio n Not available Not available Not available 11/20/2022 10804 8001 [facility]ED [facility] 16:51:43 91615 meperidin e medicatio n Not available Not available Not available 11/20/2022 6754 RxNorm [facility] 3 16:51:54 82195 sulfadime thoxine Not available Not available Not available Not available 11/20/2022 25951 RxNorm [facility] 3 16:52:05 79630 trimethop rim medicatio n Not available Not available Not available 11/20/2022 27905 RxNorm [facility] 3 16:52:18 Medications Name Sig [...] % 97 % 167.64 cm 16.9 kg/m2 54510.2 g 142 mm[Hg] 78 mm[Hg] Joycelyn Cabrales Omar [employer] 3 16:19:04 Date Recorded Body height Body mass index (BMI) Body weight Heart rate Respiratory rate Oxygen saturation Oxygen saturation in Arterial blood by Pulse oximetry Systolic blood pressure Diastolic blood pressure Provider Name and Address Organization Details Last Updated DateTime 3 167.64 cm 16.9 kg/m2 84162.2 g 72 /min 14 /min 97 % 97 % 134 mm[Hg] 69 mm[Hg] Joycelyn HAYNES [place] [email or web address] [facility] 3 14:02:12 Social History Question Answer Notes LastModified by Organizat ion Details LastModified Time Tobacco Smoking Status Current Every Day Smoker MAGEN Ventura Omar [facility] 11/20/2022 16:56:20 What Is [...] available 11/20/2022 16:55:49 Medical History Condition Response LUNG DISEASE/DISORDER Y URINARY/BLADDER/KIDNEY PROBLEMS Y ALLERGIES/HAYFEVER Y HIGH CHOLESTEROL / HYPERLIPIDEMIA Y BACK / NECK PROBLEMS Y FIBROMYALGIA Y ARTHRITIS Y HEARTBURN / REFLUX Y PULMONARY DISEASE Y Gynecological HistoryNo gynecological history recorded. Obstetrics History GPAL:G 0 P 0 0 0 0 Past Encounters Encounter ID Performer Location Encounter Start Date Encounter Closed Date Diagnosis/Indication Diagnosis SNOMED-CT Code Diagnosis ICD10 Code Diagnosis Note [id number] Shemar Fairchild DPM [facility] [place] [address] [facility] [address] [place] [address] 11/20/2022 16:13:05 11/25/2022 16:43:24 Metatarsalgia of right foot 7318637550 68674 M77.41 sub 3rd metatarsal head, right footas above Foot callus 392914398 L8 4 sub 3rd metatarsal headMildOf floading with metatarsal pad had to functional orthoticse ducated on supportive shoe gearFollow -up in 1 month Hammer toe 159411467 M20 .41 right 2nd 3rd toes mildEducat ed on treatment optionCont inue with conservati ve therapy [id number] Shemar Fairchild DPM [facility] [place] [address] [facility] [address] [place] [address] 12/18/2022 13:48:12 12/18/2022 14:26:06 Hammer toe 983372377 M20.41 right 2nd 3rd toes mildpatien t would like to continue with conservati ve therapyrec ommend silicone sleeves and soft high toe box shoe to prevent wounds infectionF ollow-up as needed Foot callus 201375443 L8 4 sub 3rd metatarsal headresolv ed with offloading Metatarsal ella of right foot 5320405164 44874 M77.41 sub 3rd metatarsal head, right footResolv ed with felt dancer's padPatient educated on accommodat amadeo inserts which may also help to reduce pressure Health Concerns Section Related Observation LastModified by Organization Detai ls LastModified Time None Recorded Concern Status LastModified by Organization Details LastModified Time None Recorded Advance Directives Directive None Recorded Payers Insurance Date Sequence Insurance Name Policy Number Policy Granados Covered Member ID Granados Member ID Guarantor Name 12/15/2022 1 [place] Melyssa A [place] [id number] Melyssa A [place] 12/15/2022 2 [place] [facility] OF PUBLIC AID Melyssa A [place] [id number] Melyssa A [place] 09/04/2022 1 [employer] - [employer] [employer] (MEDICARE REPLACEMENT/A DVANTAGE - HMO) [id number] Melyssa A [place] [id number] Melyssa A Cal Notes Date Note Type [...] area. Patient has been seen by another teaching specialists to which she has custom orthotics and [...] Fairchild DPM [address], [place], [address], [facility] 11/25/2022 12:13:28 12/18/2022 text/html . Patient is [...] Fairchild DPM [address], [place], [address], Evrent 12/18/2022 14:07:57 OBGyn Episode No OBEpisode recorded.
--- OUTSIDE RECORDS SUMMARY | 2024-11-01 05:11 | XMS_ITS | Encounter Summary ---
Author Organization [facility] Address [address] [place] [address] Care Team Providers Care High Lift Driver Name Role Phone Milena Dos Santos MD Primary Care Provider [phone] Tommy King DO Primary Care Provider [phone] [place] Pino MD Unavailable [phone] Yvan Jaime MD Unavailable [phone] None, Provider Primary Care Provider Unavaila ble Encounter Details Date Type Department Care Team (Latest Contact Info) Description 03/09/2018 Abstract [facility] Michael Mclean MD Social History Tobacco Use Types Packs/Day Years Used Date Smoking Tobacco: Smoker, Current Status Unknown Comments Unknown Sex and Gender Information Value Date Recorded Sex Assigned at Not on file Legal Sex Female 11:35 PM CDT Gender Identity Female 05/09/2021 3:57 PM AUDIT INTERN Sexual Orientation Straight 05/09/2021 3: 57 PM AUDIT INTERN documented as of this encounter Plan of Treatment Not on file documented as of this encounter Visit Diagnoses Not on filedocumented in this encounter Care Teams High Lift Driver Relationship Specialty Start Date End Date Milena Dos Santos MD [address] [place] [address] PCP - General 06/03/16 04/03/19 Tommy King DO [address] [place] [address] PCP - General INTERNAL MEDICINE 04/04/19 03/27/22 None, [place], PCP - General UNKNOWN PHYSICIAN SPECIALTY 03/28/22 West Pino MD [address] [facility] [address] [place] [address] UROLOGY 05/03/19 Yvan Jaime MD [address] [place] [address] Surgeon NEUROLOGICAL SURGERY 05/03/19 documented as of this encounter
--- OUTSIDE RECORDS SUMMARY | 2024-11-01 05:11 | XMS_ITS | Continuity of Care Document ---
Author Organization [facility] Address [address] [place] [address] Phone Care Team Providers Care Pile Trimmer Name Role Phone Sherif Doyle MD Unavailable Unavailable Allergies, Adverse Reactions, Alerts Substance Reaction Status Criticality PENICILLIN G POTASSIUM Active No In formation MEPERIDINE HCL Active No Informatio n Medications Medication Instructions Dosage Effective Dates (start - stop) Status Comments METHADOSE 5 MGTABLET tk 2 ts qd - Acti ve Lidoderm 5 % (700 mg/patch) Adhesive Patch - Active Miacalcin 200 unit/Actuation Nasal [place] Aerosol 1 spray each nostril qd - [...] on Encounter [facility], [address], [id number], [place] tel:[phone] [facility] No Information 6 Vivek Gorman. [address] [place] [address], [id number] , [place]. tel:[phone] Offic/outpt E&m Estab Minor 10 [facility], [address] [address], [place], [place], [id number], [place] tel:[phone] [facility] No Information 6 José Luis Sullivan. [address] [facility], [address], [id number] , [place]. tel:[phone] Referring Provider: Nate Ordonez V, [address], [address] . tel:[phone] [facility], [address], [place], [place], [address], [place] tel:[phone] [facility] No Information 6 José Luis Sullivan. [address], [place], [place], [id number] , [place]. tel: [phone] Referring Provider: Nate Ordonez V, [address], [place], [address] . tel:[phone] [facility], [address], [place], [place], [address], [place] tel:[phone] [facility] No Information 6 José Luis Sullivan. [address], [place], [place], [id number] , [place]. tel: [phone] Referring Provider: Nate Ordonez V, [address], [place], [address] . tel:[phone] Offic/outpt E&m Estab Low-mod [facility], [address], [place], [place], [address], [place] tel:[phone] [facility] No Information 6 José Luis Sullivan. [address], [place], [place], [id number] , [place]. tel:[phone] Referring Provider: Nate Ordonez V, [address], [place], [address] . tel:[phone] Offic/outpt E&m Estab Low-mod [facility], [address], [place], [place], [address], [place] tel:[phone] [facility] No Information 6 José Luis Sullivan. [address], [place], [place], [id number] , [place]. tel: [phone] Referring Provider: Nate Ordonez V, [address], [place], [address] . tel:[phone] Offic/outpt E&m Estab Minor 10 [facility], [address], [place], [place], [address], [place] tel:[phone] [facility] No Information May-0 9-200 6 José Luis Sullivan. [address], [place], [place], [id number] , [place]. tel:[phone] Referring Provider: Nate Ordonez V, [address], [place], [address] . tel:[phone] [facility], [address], [place], [place], [address], [place] tel:[phone] [facility] No Information May-0 5-200 6 José Luis Sullivan. [address], [place], [place], [id number] , [place]. tel:[phone] Referring Provider: Nate Ordonez V, [address], [place], [address] . tel:[phone] [facility], [address], [place], [place], [id number], [place] tel:[phone] [facility] No Information May-0 2-200 6 José Luis Sullivan. [address], [place], [place], [address] , [place]. tel:[phone] Referring Provider: Nate Ordonez V, [address], [place], [address] . tel:[phone] [facility], [address], [place], [place], [address], [place] tel:[phone] [facility] No Information Apr-2 8-200 6 Ordonez Nate. [address], [place], [place], [id number] , [place]. tel:[phone] Referring Provider: Nate Ordonez V, [address], [place], [address] . tel:[phone] [facility], [address], [place], [place], [address], [place] tel:[phone] [facility] No Information Aug- 5-200 6 José Luis Sullivan. [address], [place], [place], [id number] , [place]. tel:[phone] Referring Provider: Nate Ordonez V, [address], [place], [address] . tel:[phone] [facility], [address], [place], [place], [address], [place] tel:[phone] [facility] NANCY No Information 6 José Luis Sullivan. [address], [place], [place], [address] , [place]. tel:[phone] Referring Provider: Nate Ordonez V, [address], [place], [address] . tel:[phone] [facility], [address], [place], [place], [address], [place] tel:[phone] [facility] NANCY No Information 200 6 José Luis Sullivan. [address], [place], [place], [address] , [place]. tel:[phone] Referring Provider: Nate Ordonez V, [address], [place], [address] . tel:[phone] Offic Cons New/estab Mod-hi 60 [facility], [address], [place], [place], [address], [place] tel:[phone] [facility] NANCY No Information 8-200 6 José Luis Sullivan. [address], [facility] [address], [place], [place], [id number] , [place]. tel:[phone] Referring Provider: Nicho Goldstein MD B, [address] [place], [address]. tel:[phone] Family History Family Member Type Diagnosis Age At Onset Gen Fam Hx Problem (finding) Stroke Gen Fam Hx Problem (finding) Cancer Payers Payer name Insurance type Covered green party ID Authorstepha jevon(s) BCBS Of [facility] [id number] Social History Type Description Quantity Date Captured [...]
--- OUTSIDE RECORDS SUMMARY | 2024-11-01 05:11 | XMS_ITS | Clinical Summary ---
Author Organization [facility] Address [address] [place] [address] Care Team Providers Care Industrial Aerial Installer Name Role Phone West Pino MD Unavailable [phone] Yvan Jaime MD Unavailable [phone] None, Provider MD Primary Care Provider Unavaila [...] CDT Gender Identity Female 05/09/2021 3:57 PM SANDBLAST OR SHOTBLAST EQUIPMENT TENDER Sexual Orientation Straight 05/09/2021 3: 57 PM SANDBLAST OR SHOTBLAST EQUIPMENT TENDER Last Filed Vital Signs Vital Sign Reading Time Taken Comments Blood Pressure 106/60 03/28/2022 9:13 AM SANDBLAST OR SHOTBLAST EQUIPMENT TENDER Pulse 80 03/28/2022 9:13 AM SANDBLAST OR SHOTBLAST EQUIPMENT TENDER Temperature 36.1 C (97 F) 03/28/2022 9:13 AM SANDBLAST OR SHOTBLAST EQUIPMENT TENDER Respiratory Rate 20 03/28/2022 9:13 AM SANDBLAST OR SHOTBLAST EQUIPMENT TENDER Oxygen Saturation 94% 03/28/2022 9:13 AM SANDBLAST OR SHOTBLAST EQUIPMENT TENDER Inhaled Oxygen Concentration - - Weight 52.6 kg (116 lb) 03/28/2022 9:13 AM SANDBLAST OR SHOTBLAST EQUIPMENT TENDER Height 167.6 cm (5' 6) 03/28/2022 9:13 AM SANDBLAST OR SHOTBLAST EQUIPMENT TENDER Body Mass Index 18.72 03/28/2022 9:13 AM SANDBLAST OR SHOTBLAST EQUIPMENT TENDER Plan of Treatment Health Maintenance Due Date [...] this topic Medical Devices Implanted Type Area Adoption Coordinator Device Identifier Shelf Expiration Date Model / Serial / Lot Stent Bard Fish Hawk 6fr X 24cm - [id number] Implanted:Qty : 1 on 05/17/2019 by West Pino MD at [facility] Stent Left: Ureter [employer] 05/12/2023 [id number] / / [id number] Stent Bard Fish Hawk 6fr X 24cm - [id number] Implanted:Qty : 1 on 05/17/2019 by West Pino MD at [facility] Stent Right: Ureter [employer] 05/12/2023 [id number] / / [id number] Stent Ureteral Pigtail 6fr 24cm Crv Taper Tip - [id number] Implanted:Qty : 1 on 02/26/2021 by West Pino MD at [facility] Stent Left: Ureter [email or web address] [id number] 11/28/2023 [id number] Procedures Procedure Name Priority Date/Time Associated Diagnosis Comments MG SCREENING PAIGE DIGI Routine 04/16/2015 3:06 PM SANDBLAST OR SHOTBLAST EQUIPMENT TENDER from Last 3 Months or Most Recently Relevant to Health Maintenance Results * MG SCREENING PAIGE DIGI (04/16/2015 3:06 PM SANDBLAST OR SHOTBLAST EQUIPMENT TENDER) Anatomical Region Laterality Modality Breast Bilateral Mammography 04/16/2015 3:06 PM SANDBLAST OR SHOTBLAST EQUIPMENT TENDER 04/16/2015 3:06 PM SANDBLAST OR SHOTBLAST EQUIPMENT TENDER Narrative 04/16/2015 3:24 PM SANDBLAST OR SHOTBLAST EQUIPMENT TENDER MELYSSA MCCALL ADMIT/SERVICE DATE: 04/16/15 ACCT: [id number] DISCHARGE DATE: : 1955 SEX: F ORD SITE: [facility] PT TYPE: REG CLI ORDERING MD: MANE RAMIREZ MD STUDY DATE REPORT # ORDER # EXT ORDER ID 04/16/15 [id number] PROC CODE: SCMAMDGB PROCEDURE DESCRIPTION: MG SCREEN [...] - 02/26/2018 MELYSSA MCCALL ADMIT/SERVICE DATE:04/16/15 ACCT: [id number] DISCHARGE DATE: : 1955 SEX: F ORD SITE: [facility] PT TYPE: REG CLI ORDERING MD:MANE RAMIREZ MD STUDY DATE REPORT # ORDER # EXT ORDER ID 04/16/15 [id number] PROC CODE: SCMAMDGB PROCEDURE DESCRIPTION: MG SCREEN [...] 1:01 PM 02/26/2021 3:43 PM Care Teams Industrial Aerial Installer Relationship Specialty Start Date End Date None, ProviderMD PCP - General UNKNOWN PHYSICIAN SPECIALTY 03/28/22 West Pino MD UROLOGY 05/03/19 Yvan Jaime MD [address] [place] [id number] Surgeon NEUROLOGICAL SURGERY 05/03/19
--- OUTSIDE RECORDS SUMMARY | 2024-11-01 05:11 | XMS_ITS | Data Portability ---
Author Organization Claudia GODDARD Address [address] [place] [address] Assessment No assessment recorded. Plan of Treatment Reminders Order Date Submit Date Provider Last Modified By Organization Details Last Modified Time Details Appointments None recorded. Lab rapid strep group A, throat 2016 017 [facility] In-Office Order, Internal Use Only DO Not Attach Compendium DO Not Attach Compendium, Do Not Delete/merge, [id number] 7 17:07:24 HbA1c (hemoglobi n A1c), blood 2015 016 DBA_PATCH_ [id number] [facility], [address] [facility] [address], [address], [place], [address], 6 04:31:39 glucose tolerance test, post-75G, 3 specimens 2015 016 DBA_PATCH_ [id number] [facility], [address] [facility] [address], [address], [place], [address], 6 04:31:39 unlisted lab - vitamin D, 25-hydroxy , total - [facility] 2015 016 JENNIFER [facility], [address] [facility] [address], [address], [place], [address], 6 13:11:27 CBC w/ manual diff 2015 016 [email or web address] [facility], [address], [address], [place], [address], 6 12:15:19 CMP, serum or plasma 2015 016 [email or web address] [facility], [address] [facility] [address], [address], [place], [address], 6 12:15:19 lipid panel, serum 2015 016 [email or web address] [facility], [address] [facility], [address], [place], [address], 6 12:15:19 unlisted lab - compliance drug analysis, ur 2015 016 JENNIFER [facility], [address] [facility], [address], [place], [address], 6 15:09:40 Referral laryngolog y referral - Please call patient to schedule 2015 016 [email or web address] Not available 7 07:56:45 audiologis t referral - Please call patient to schedule 2015 [email or web address], [place], [address], 7 13:04:47 plastic surgeon referral - Rt thigh lump/ PATIENT TO SCHEDULE 2015 016 [email or web address] Not available 7 13:17:06 gastroente rologist referral - P:leae call patient to schedujle 2015 016 [email or web address] Jack Griffin MD, [address] [place], [address], 7 10:10:31 Procedures colonoscop y screening (PROC) 2015 016 DBA_PATCH_ [id number] Not available 6 04:32:07 Surgeries None recorded. Imaging MAMMO, screening, digital, bilateral 2015 016 DBA_PATCH_ [id number] [facility] ([facility]), [address] [place], [address], 6 04:31:59 MAMMO, screening, bilateral 2015 016 [facility] ([facility]), [address] [place], [address], 7 10:29:25 bone density, dual photon absorptiom etry 2015 016 [facility] ([facility]), [address] [place], [address], 6 15:34:00 Medication Orders sertraline 100 mg tablet 2016 017 [facility]05811, [address] [place], [place], [id number], 7 17:07:30 nystatin 100,000 unit/mL oral suspension 2016 017 [facility] #50085, [address] [facility], [place], [place], [id number], 7 17:07:31 calcium 600 mg (as carbonate) -vitamin D3 10 mcg (400 unit) capsule 2016 017 [facility] #10908, [address] [facility], [place], [place], [id number], 7 16:54:36 Ventolin HFA 90 mcg/actuat ion aerosol inhaler 2016 017 [facility] #48571, [address] [facility], [place], [place], [id number], 7 16:22:52 Symbicort 160 mcg-4.5 mcg/actuat ion HFA aerosol inhaler 2016 017 [facility] #33356, [address], [place], [place], [id number], 7 16:22:51 albuterol sulfate 2.5 mg/3 mL (0.083 %) solution for nebulizati on 2016 017 [facility] #51683, [address] , [place], [place], [id number], 7 16:22:52 calcium 600 mg (as carbonate) -vitamin D3 10 mcg (400 unit) capsule 2015 016 DBA_PATCH_ [id number] [facility] #02101, [address] , [place], [place], [id number], 6 04:31:45 Patient TargetsNo targets recorded. Patient Instructions Encounter Date Encounter Id Patient Instructions Last Modified By Organization Details Last Modified Time 01/21/2016 [id number] deciding about using medicines to quit smoking [facility] Not available 01/22/2016 15:28:08 Quitting Tobacco : Care Instructions [facility] Not available 01/22/2016 15:28:09 chronic obstructive pulmonary disease (COPD): care instructions [facility] Not available 01/22/2016 15:28:08 learning about copd and how to prevent lung infections [facility] Not available 01/22/2016 15:28:08 03/21/2016 [id number] mammogram: about this test [facility] Not available 03/21/2016 17:27:52 deciding about using medicines to quit smoking [facility] Not available 03/21/2016 17:27:52 Quitting Tobacco : Care Instructions [facility] Not available 03/21/2016 17:27:52 chronic obstructive pulmonary disease (COPD): care instructions [facility] Not available 03/21/2016 17:27:52 learning about copd and how to prevent lung infections [facility] Not available 03/21/2016 17:27:52 learning about high blood sugar [facility] Not available 03/21/2016 17:31:23 05/28/2016 [id number] osteoporosis: care instructions [facility] Not available 05/28/2016 16:22:51 deciding about using medicines to quit smoking [email or web address] Not available 05/28/2016 16:22:51 Quitting Tobacco : Care Instructions [email or web address] Not available 05/28/2016 16:22:51 chronic obstructive pulmonary disease (COPD): care instructions jhsieh Not available 05/28/2016 16:22:51 learning about copd and how to prevent lung infections [email or web address] Not available 05/28/2016 16:22:51 07/01/2016 [id number] deciding about using medicines to quit smoking strice Not available 07/02/2016 09:50:36 Quitting Tobacco : Care Instructions strice Not available 07/02/2016 09:50:36 chronic obstructive pulmonary disease (COPD): care instructions [facility] Not available 07/02/2016 09:50:36 learning about copd and how to prevent lung infections [facility] Not available 07/02/2016 09:50:36 11/24/2016 [id number] deciding about using medicines to quit smoking [email or web address] Not available 11/25/2016 11:07:05 Quitting Tobacco : Care Instructions [email or web address] Not available 11/25/2016 11:07:05 chronic obstructive pulmonary disease (COPD): care instructions Not available 11/25/2016 11:07:05 learning about copd and how to prevent lung infections [email or web address] Not available 11/25/2016 11:07:05 Reason for Referral Plastic Surgeon Referral for Mass of skin Right thigh lump. Rt thigh lump/ PATIENT TO SCHEDULE Referring Physician: Milena Dos Santos Internal Medicine, Encounter Date: 03/21/2016 P:leae call patient to sched ujle Referring Physician: Milena Dos Santos Internal Medicine, Encounter Date: 03/21/2016 Laryngology Referral for Hea ring disorder Please call patient to schedule Referring Physician: Kay Colindres Medicine, Encounter Date: 03/21/2016 Theatre Professor Referral for Hea ring disorder Please call [...] DO Not Attach Compendium, Do Not Delete/merge, [id number] 11/24/2016 16:23:51 01/21/20 16 01/26/2016 drug scree [...] RIPTI ON MEDIC ATION . [place]PH INE [address]772 NG/MG CREAT POTEN TIAL SOURC ES OF [...] ===== === Not Available [facility] [address], [place], [address], 01/26/2016 15:09:40 01/21/20 16 01/26/2016 drug scree n, urine pdf . Not Available [facility] [address], [place], [address], 01/26/2016 15:09:40 02/04/20 16 02/05/2016 CBC w/ manua l diff WBC 5.7 x10e3 /uL 3.4-10 .8 Not Available [facility] ([facility]) [address] [facility], [place], [address], 02/07/2016 13:11:25 02/04/20 16 02/05/2016 CBC w/ manua l diff RBC 4.19 x10e6 /uL 3.77-5 .28 Not Available [facility] ([facility]) [address] [place], [address], 02/07/2016 13:11:25 02/04/20 16 02/05/2016 CBC w/ manua l diff hemoglobin 12.7 g/dL 11.1-1 5.9 Not Available [facility] ([facility]) [address] [place], [address], 02/07/2016 13:11:25 02/04/20 16 02/05/2016 CBC w/ manua l diff hematocrit 38.8 % 34.0-4 6.6 Not Available [facility] ([facility]) [address] [place], [address], 02/07/2016 13:11:25 02/04/20 16 02/05/2016 CBC w/ manua l diff MCV 93 fL 79-97 Not Available [facility] ([facility]) [address] [place], [address], 02/07/2016 13:11:25 02/04/20 16 02/05/2016 CBC w/ manua l diff MCH 30.3 pg 26.6-3 3.0 Not Available [facility] ([facility]) [address] [facility], [place], [address], 02/07/2016 13:11:25 02/04/20 16 02/05/2016 CBC w/ manua l diff MCHC 32.7 g/dL 31.5-3 5.7 Not Available [facility] ([facility]) [address] [facility], [place], [address], 02/07/2016 13:11:25 02/04/20 16 02/05/2016 CBC w/ manua l diff RDW 14.2 % 12.3-1 5.4 Not Available [facility] ([facility]) [address] [facility], [place], [address], 02/07/2016 13:11:25 02/04/20 16 02/05/2016 CBC w/ manua l diff platelets 148 x10e3 /uL 150-37 9 below low normal Not Available [facility] ([facility]) [address] [place], [address], 02/07/2016 13:11:25 02/04/20 16 02/05/2016 CBC w/ manua l diff neutrophils 75 % Not Available [facility] ([facility]) [address] [facility], [place], [address], 02/07/2016 13:11:25 02/04/20 16 02/05/2016 CBC w/ manua l diff lymphs 16 % Not Available [facility] ([facility]) [address] [place], [address], 02/07/2016 13:11:25 02/04/20 16 02/05/2016 CBC w/ manua l diff monocytes 8 % Not Available [facility] ([facility]) [address] [place], [address], 02/07/2016 13:11:25 02/04/20 16 02/05/2016 CBC w/ manua l diff eos 1 % Not Available [facility] ([facility]) [address] [place], [address], 02/07/2016 13:11:25 02/04/20 16 02/05/2016 CBC w/ manua l diff basos 0 % Not Available [facility] ([facility]) [address] [place], [address], 02/07/2016 13:11:25 02/04/20 16 02/05/2016 CBC w/ manua l diff immature cells CASHIER HOST/HOSTESS Not Available [facility] ([facility]) [address] [place], [address], 02/07/2016 13:11:25 02/04/20 16 02/05/2016 CBC w/ manua l diff neutrophils absolute 4.3 x10e3 /uL 1.4-7. 0 Not Available [facility] ([facility]) [address] [place], [address], 02/07/2016 13:11:25 02/04/20 16 02/05/2016 CBC w/ manua l diff lymphs (absolute) 0.9 x10e3 /uL 0.7-3. 1 Not Available [facility] ([facility]) [address] [place], [address], 02/07/2016 13:11:25 02/04/20 16 02/05/2016 CBC w/ manua l diff monocytes(ab solute) 0.5 x10e3 /uL 0.1-0. 9 Not Available [facility] ([facility]) [address] [place] [address], [address], 02/07/2016 13:11:25 02/04/20 16 02/05/2016 CBC w/ manua l diff eos (absolute value) 0.1 x10e3 /uL 0.0-0. 4 Not Available [facility] ([facility]) [address] [facility], [place], [address], 02/07/2016 13:11:25 02/04/20 16 02/05/2016 CBC w/ manua l diff baso(absolut e) 0.0 x10e3 /uL 0.0-0. 2 Not Available [facility] ([facility]) [address] [facility], [place], [address], 02/07/2016 13:11:25 02/04/20 16 02/05/2016 CBC w/ manua l diff NRBC CASHIER HOST/HOSTESS Not Available [facility] ([facility]) [address] [facility], [place], [address], 02/07/2016 13:11:25 02/04/20 16 02/05/2016 CBC w/ manua l diff differential comment CASHIER HOST/HOSTESS Not Available [facility] ([facility]) [address] [facility], [place], [address], 02/07/2016 13:11:25 02/04/20 16 02/05/2016 CBC w/ manua l diff RBC comment RBC'S APPEAR NORMAL . normal Not Available [facility] ([facility]) [address] [facility], [place], [address], 02/07/2016 13:11:25 02/04/20 16 02/05/2016 CBC w/ manua l diff platelet comment ADEQUA TE adequa te Not Available [facility] ([facility]) [address] [facility], [place], [address], 02/07/2016 13:11:25 02/04/20 16 02/05/2016 CMP, serum or plasm a glucose, serum 115 mg/dL 65-99 above high normal Not Available [facility] ([facility]) [address] [facility] [place], [address], 02/07/2016 13:11:26 02/04/20 16 02/05/2016 CMP, serum or plasm a hemoglobin A1C 5.9 % 4.8-5. 6 above high normal PRE-D IABET ES: 5.7 - 6.4 DIABE ROSE: >6.4 GLYCE ARON CONTR OL FOR ADULT S WITH DIABE ROSE: <7.0 Not Available [facility] ([facility]) [address] [place], [address], 02/07/2016 13:11:26 02/04/20 16 02/05/2016 CMP, serum or plasm a BUN 8 mg/dL 8-27 Not Available [facility] ([facility]) [address] [place], [address], 02/07/2016 13:11:26 02/04/20 16 02/05/2016 CMP, serum or plasm a creatinine, serum 0.85 mg/dL 0.57-1 .00 Not Available [facility] ([facility]) [address] [place], [address], 02/07/2016 13:11:26 02/04/20 16 02/05/2016 CMP, serum or plasm a eGFR if nonafricn AM 74 mL/mi n/1.7 3 >59 Not Available [facility] ([facility]) [address] [place], [address], 02/07/2016 13:11:26 02/04/20 16 02/05/2016 CMP, serum or plasm a eGFR if africn AM 85 mL/mi n/1.7 3 >59 Not Available [facility] ([facility]) [address] [place], [address], 02/07/2016 13:11:26 02/04/20 16 02/05/2016 CMP, serum or plasm a BUN/creatini ne ratio 9 11-26 below low normal Not Available [facility] ([facility]) [address] [place] [address], [address], 02/07/2016 13:11:26 02/04/20 16 02/05/2016 CMP, serum or plasm a sodium, serum 142 mmol/ L 134-14 4 EFF ECTIV E OCTOB ER 2015 THE REFER ENCE INTER NIRMALA FOR SARAH Rodriguez, SERUM WILL BE LYON ING TO: 136 - 144 Not Available [facility] ([facility]) [address] [place], [address], 02/07/2016 13:11:26 02/04/20 16 02/05/2016 CMP, serum [...] YEAR 3.5 - 5.2 Not Available [facility] ([facility]) [address] [place], [address], 02/07/2016 13:11:26 02/04/20 16 02/05/2016 CMP, serum or plasm a chloride, serum 103 mmol/ L 97-108 EFF ECTIV E OCTOB ER 2015 THE REFER ENCE INTER NIRMALA FOR CHLOR SAHIL, SERUM WILL BE LYON ING TO: 97 - 106 Not Available [facility] ([facility]) [address] [place], [address], 02/07/2016 13:11:26 02/04/20 16 02/05/2016 CMP, serum or plasm a carbon dioxide, total 24 mmol/ L 18-29 Not Available [facility] ([facility]) [address] [place], [address], 02/07/2016 13:11:26 02/04/20 16 02/05/2016 CMP, serum or plasm a calcium, serum 8.3 mg/dL 8.7-10 .3 below low normal Not Available [facility] ([facility]) [address] [place], [address], 02/07/2016 13:11:26 02/04/20 16 02/05/2016 CMP, serum or plasm a protein, total, serum 6.2 g/dL 6.0-8. 5 Not Available [facility] ([facility]) [address] [facility] [place], [address], 02/07/2016 13:11:26 02/04/20 16 02/05/2016 CMP, serum or plasm a albumin, serum 3.8 g/dL 3.6-4. 8 Not Available [facility] ([facility]) [address] [facility], [place], [address], 02/07/2016 13:11:26 02/04/20 16 02/05/2016 CMP, serum or plasm a globulin, total 2.4 g/dL 1.5-4. 5 Not Available [facility] ([facility]) [address] [place], [address], 02/07/2016 13:11:26 02/04/20 16 02/05/2016 CMP, serum or plasm a A/G ratio 1.6 1.1-2. 5 Not Available [facility] ([facility]) [address] [facility], [place], [address], 02/07/2016 13:11:26 02/04/20 16 02/05/2016 CMP, serum or plasm a bilirubin, total <0.2 mg/dL 0.0-1. 2 Not Available [facility] ([facility]) [address] [place], [address], 02/07/2016 13:11:26 02/04/20 16 02/05/2016 CMP, serum or plasm a alkaline phosphatase, S 97 IU/L 39-117 Not Available [facility] ([facility]) [address] [place] [address], [place], [address], 02/07/2016 13:11:26 02/04/20 16 02/05/2016 CMP, serum or plasm a AST (SGOT) 15 IU/L 0-40 Not Available [facility] ([facility]) [address] [facility] [place], [address], 02/07/2016 13:11:26 02/04/20 16 02/05/2016 CMP, serum or plasm a ALT (SGPT) 15 IU/L 0-32 Not Available [facility] ([facility]) [address] [facility] [place], [address], 02/07/2016 13:11:26 02/04/20 16 02/05/2016 lipid panel , serum cholesterol, total 201 mg/dL 100-19 9 above high normal Not Available [facility] ([facility]) [address] [facility] [place], [address], 02/07/2016 13:11:26 02/04/20 16 02/05/2016 lipid panel , serum triglyceride s 91 mg/dL 0-149 Not Available [facility] ([facility]) [address] [place], [address], 02/07/2016 13:11:26 02/04/20 16 02/05/2016 lipid panel , serum HDL cholesterol 72 mg/dL >39 ACCOR DING TO ATP-I II GUIDE LINES , HDL-C >59 MG/DL IS CONSI DERED A NEGAT CAMPOS RISK FACTO R FOR CHD. Not Available [facility] ([facility]) [address] [place], [address], 02/07/2016 13:11:26 02/04/20 16 02/05/2016 lipid panel , serum VLDL cholesterol taylor 18 mg/dL 5-40 Not Available [facility] ([facility]) [address] [place], [address], 02/07/2016 13:11:26 02/04/20 16 02/05/2016 lipid panel , serum LDL cholesterol calc 111 mg/dL 0-99 above high normal Not Available [facility] ([facility]) [address] [place], [address], 02/07/2016 13:11:26 02/04/20 16 02/05/2016 lipid panel , serum comment: CASHIER HOST/HOSTESS Not Available [facility] ([facility]) [address] [facility], [place], [address], 02/07/2016 13:11:26 02/04/20 16 02/05/2016 lipid panel , serum LDL/HDL ratio 1.5 ratio _unit s 0.0-3. 2 LDL/H DL RATIO MEN WOMEN 1/2 AVG.R ISK 1.0 1.5 AVG.R ISK 3.6 3.2 2X AVG.R ISK 6.2 5.0 3X AVG.R ISK 8.0 6.1 Not Available [facility] ([facility]) [address] [facility], [place], [address], 02/07/2016 13:11:26 02/04/20 16 02/07/2016 vitam in D, 25-hy droxy , total , serum vitamin D, 25-hydroxy, serum 37 NG/mL REFER ENCE RANGE : ALL AGES: TARGE T LEVEL S 30 - 100 Not Available [facility] [address] [place] [address], [address], 02/07/2016 13:11:27 04/02/20 16 04/03/2016 gluco se slava ance test, post- 75G, 3 speci mens glucose, fasting 92 mg/dL 65-99 Not Available [facility] ([facility]) [address] [place], [address], 04/03/2016 06:12:40 04/02/20 16 04/03/2016 gluco se slava ance test, post- 75G, 3 speci mens glucose, 1/2 hour TNP TEST NOT PERFO RMED Not Available [facility] ([facility]) [address] [place], [address], 04/03/2016 06:12:40 04/02/20 16 04/03/2016 gluco se slava ance test, post- 75G, 3 speci mens glucose, 1 hour 189 mg/dL 65-199 Not Available [facility] ([facility]) [address] [place], [address], 04/03/2016 06:12:40 04/02/20 16 04/03/2016 gluco se slava ance test, post- 75G, 3 speci mens glucose, 1 1/2 hour TNP TEST NOT PERFO RMED Not Available [facility] ([facility]) [address] [place], [address], 04/03/2016 06:12:40 04/02/20 16 04/03/2016 gluco se slava ance test, post- 75G, 3 speci mens glucose, 2 hour 97 mg/dL 65-139 Not Available [facility] ([facility]) [address] [place], [address], 04/03/2016 06:12:40 04/02/20 16 04/03/2016 gluco se slava ance test, post- 75G, 3 speci mens glucose, 3 hour TNP TEST NOT PERFO RMED Not Available [facility] ([facility]) [address] [place] [address], [address], 04/03/2016 06:12:40 04/02/20 16 04/03/2016 gluco se slava ance test, post- 75G, 3 speci mens glucose, 4 hour TNP TEST NOT PERFO RMED Not Available [facility] ([facility]) [address] [place], [address], 04/03/2016 06:12:40 04/02/20 16 04/03/2016 gluco se lsava ance test, post- 75G, 3 speci mens glucose, 5 hour TNP TEST NOT PERFO RMED Not Available [facility] ([facility]) [address] [place], [address], 04/03/2016 06:12:40 04/02/20 16 04/03/2016 gluco se slava ance test, post- 75G, 3 speci mens glucose, 6 hour TNP TEST NOT PERFO RMED Not Available [facility] ([facility]) [address] [facility], [place], [address], 04/03/2016 06:12:40 04/02/20 16 04/03/2016 HbA1c (hemo globi n A1c), blood hemoglobin A1C 6.0 % 4.8-5. 6 above high normal PRE-D IABET ES: 5.7 - 6.4 DIABE ROSE: >6.4 GLYCE ARON CONTR OL FOR ADULT S WITH DIABE ROSE: <7.0 Not Available [facility] ([facility]) [address] [facility], [place], [address], 04/03/2016 06:12:41 01/29/20 16 01/28/2016 bone densi ty, dual photo n absor ptiom etry No observ ation record ed. [email or web address] [facility] [address] [place], [address], 08/20/2016 09:43:33 02/21/20 16 02/21/2016 US, kidne y No observ ation record ed. [email or web address] Not Available 2015 15:40:26 05/21/19 17 05/21/2016 MRI, brain + brain stem, w/wo contr ast No observ ation record ed. strice [facility] [address] [place], [address], 07/03/2016 11:40:04 05/21/19 17 05/21/2016 MRI, cervi taylor spine , w/o contr ast No observ ation record ed. [email or web address] [facility] (Imaging) [address] [place], [address], 05/29/2016 07:28:18 06/03/19 17 06/03/2016 MAMMO , scree uziel, bilat eral No observ ation record ed. [email or web address] Not Available 07/02 15:29:02 06/27/19 17 06/27/2016 XR, chest , 2 view No observ ation record ed. [facility] (Imaging) [address] [place], [address], 07/16/2016 13:29:36 07/04/19 17 6 minut e walk test* No observ ation record ed. [facility] ([facility]) [address] [place], [address], 07/04/2016 12:37:03 Result Notes None recorded. Problems Name Problem SNOMED Code Status Onset Date Resolution Date Notes Provider Name and Address Organization Details Recorded Time Chronic obstructive pulmonary disease 44188604 Active Milena Dos Santos MD Attn: Wilmer bullock,[address] [facility], [place], [address], [facility] 6 15:15:05 Tobacco dependence syndrome [id number] Active Milena Dos Santos MD Attn: Wilmer bullock,[address] [facility], [place], [address], [facility] 6 15:15:05 Chronic low back pain [id number] Diandra Dos Santos MD Attn: Wilmer bullock,[address] [facility], [place], [address], [facility] 6 15:15:05 Esophageal dysphagia [id number] Diandra Dos Santos MD Attn: Wilmer bullock,[address] [facility], [place], [address], [facility] 6 15:15:05 Dystonia [id number] Diandra Dos Santos MD Attn: Wilmer bullock,[address] [facility], [place], [address], [facility] 6 15:15:05 Osteoporosis [id number] Diandra Gonzalez RN null, [facility] 6 15:14:16 Problem Notes None recorded. Procedures Surgical History Date Name Laterality Status Provider Name and Address Organization Details Recorded Time 05/04/19 15 Mammogram screening completed Judd Valentine MA [facility] 01/21/2016 14:25:00 05/04/19 14 Diagnostic colonoscopy completed Judd Valentine ROSS [facility] 01/21/2016 14:25:00 05/04/19 09 Screening pap smear by phys completed Judd Valentine MA [facility] 01/21/2016 14:25:00 Dilation and Curettage completed Judd Valentine MA [facility] 01/21/2016 14:25:00 Tonsillectomy completed Judd Valentine MA [facility] 01/21/2016 14:25:00 Hysterectomy completed Judd Valentine MA [facility] 01/21/2016 14:25:00 Appendectomy completed Judd Valentine ROSS [facility] 01/21/2016 14:25:00 Imaging Results None recorded. Procedure Notes None recorded. Medical Equipment None Reported. Allergies Allergen ID Allergen Name Allergen Category Reaction Reaction Severity Criticality Documentation Date Start Date Code Code System Note Provider Name and Address Organization Details Recorded Time 19734 Product containin g penicilli n (product) medicatio n Not available Not available Not available 01/21/2016 47618 8001 [facility]ED [facility] 14:24:59 62954 Demerol medicatio n itching Not available Not available 01/21/2016 89838 1 RxNorm ROSS [facility] 6 14:24:59 Medications Name Sig Start Date [...] propionate 50 mcg/actuatio n nasal spray,suspen haleigh Monson 1 spray every day by intranasal route. [...] Details Last Updated DateTime 7 169.545 cm 72159.4 8 g 19.8 kg/m2 97.9 [degF] 96 % 96 % 85 /min 126 mm[Hg] 66 mm[Hg] Judd Valentine [place] [facility] 7 16:04:46 Date Recorded Body height Body weight Body mass index (BMI) Body temperature Oxygen saturation Oxygen saturation in Arterial blood by Pulse oximetry Heart rate Systolic blood pressure Diastolic blood pressure Provider Name and Address Organization Details Last Updated DateTime 7 169.545 cm 88774.7 g 19.3 kg/m2 98.1 [degF] 92 % 92 % 80 /min 124 mm[Hg] 68 mm[Hg] Judd Valentine MA [facility] 7 17:15:45 Date Recorded Body height Body mass index (BMI) Body weight Body temperature Oxygen saturation Oxygen saturation in Arterial blood by Pulse oximetry Heart rate Systolic blood pressure Diastolic blood pressure Provider Name and Address Organization Details Last Updated DateTime 7 169.545 cm 20.5 kg/m2 05142.2 9 g 97.7 [degF] 95 % 95 % 90 /min 130 mm[Hg] 70 mm[Hg] Judd Valentine MA [place] [facility] 7 15:30:39 Date Recorded Body height Heart rate Body weight Oxygen saturation Oxygen saturation in Arterial blood by Pulse oximetry Body mass index (BMI) Body temperature Systolic blood pressure Diastolic blood pressure Provider Name and Address Organization Details Last Updated DateTime 6 169.545 cm 71 /min 25546.3 55101 g 96 % 96 % 18.9 kg/m2 98.3 [degF] 144 mm[Hg] 70 mm[Hg] Judd Valentine MA [place] [facility] 6 14:25:00 Date Recorded Body height Body weight Body mass index (BMI) Body temperature Oxygen saturation Oxygen saturation in Arterial blood by Pulse oximetry Heart rate Systolic blood pressure Diastolic blood pressure Provider Name and Address Organization Details Last Updated DateTime 6 169.545 cm 12496.7 1 g 19.3 kg/m2 98.3 [degF] 95 % 95 % 88 /min 104 mm[Hg] 60 mm[Hg] Judd Valentine MA [place] [facility] 6 16:32:19 Social History None [...] vector-nr, rS-Ad26, PF, 0.5 mL 07/09/2020 omari amin, [place] [facility] 11/07/2020 16:13:26 pneumococcal, unspecified formulation 05/04/2005 completed Judd Valentine MA [facility], [place] [facility] 01/21/2016 14:25:00 Past Encounters Encounter ID Performer Location Encounter Start Date Encounter Closed Date Diagnosis/Indication Diagnosis SNOMED-CT Code Diagnosis ICD10 Code Diagnosis Note [id number] Milena Dos Santos MD [facility] (Adult Med) [facility] [place] [place] [address] 01/21/2016 13:44:23 01/21/2016 18:02:47 Chronic obstructive pulmonary disease 50865537 J44.9 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 Chronic low back pain 27 5209685 M54.5 Esophageal dysphagia 408 03113 R13.19 Adult [facility] th examination 181537110 Z00.00 Screening for osteoporosis 601691168 Z13.820 Dystonia 41860426 G24.9 [id number] MD Asif Colindres (Adult Med) [address] [place] [address] 03/21/2016 15:52:50 03/21/2016 17:46:52 Chronic obstructive pulmonary disease 88724124 J44.9 Tobacco de pendence syndrome 56158015 F17.290 Osteopenia 940469148 M85 .9 Mass of skin 611558799 R 22.9 Screening for malignant neoplasm of colon 798714777 Z12.11 Hearing disorder 5807325 05 H91.93 Screening mammography 24 910631 Z12.31 Hyperglycemia 55315102 R 73.9 [id number] MD Asif Colindres (Adult Med) [address] [place] [address] 05/28/2016 15:44:26 05/28/2016 16:35:56 Chronic obstructive pulmonary disease 07669771 J44.9 Tobacco de pendence syndrome 59040348 F17.290 Dystonia 70605185 G24.9 She has been seen by a neurologis t on the rgular basis. Chronic low back pain 27 4130292 M54.5 Esophageal dysphagia 408 15345 R13.19 She had upper EGD scopic ex. by a GI specialist and was dilated and recently had unremarkab le colonoscop y ex by GI specialist as well. Osteoporosis 85231261 M8 1.0 Osteopenia 474044774 M85 .9 [id number] MD Asif Colindres (Adult Med) [address] [place] [address] 07/01/2016 15:40:48 07/01/2016 18:04:54 Chronic obstructive pulmonary disease 35226307 J44.9 Will have nurse arrange the 6 minutes walking test to see if she is qualified for the home oxygen, Jennifer won't give such choice on the computer. Tobacco de pendence syndrome 24493612 F17.290 She is on the nicotine patch for quitting cigarettes . [id number] MD Asif Colindres (Adult Med) [address] [place] [address] 11/24/2016 14:30:40 11/24/2016 17:09:34 Pharyngitis 731780187 J02.9 Thrash. Chronic ob structive pulmonary disease 49163897 J44.9 Will have nurse arrange the 6 minutes walking test to see if she is qualified for the home oxygen, Jennifer won't give such choice on the computer. Tobacco de pendence syndrome 46736273 F17.290 She is on the nicotine patch for quitting cigarettes . Pain of mu ltiple joints 72654131 M25.50 Had been on sertraline . Chronic low back pain 27 4653133 M54.5 Same as sertraline . Lumbar radiculopathy 128 201287 M54.16 Health Concerns Section Related Observation LastModified by Organization Detai ls LastModified Time None Recorded Concern Status LastModified by Organization Details LastModified Time None Recorded Advance Directives Directive None Recorded Payers Insurance Date Sequence Insurance Name Policy Number Policy Gran[place] Covered Member ID Granados Member ID Guarantor Name 07/02/2016 2 [place] WHEN MEDICARE OR MEDICARE REPLACEMENT PRIMARY) Melyssa Cal [id number] Melyssa [place] 07/02/2016 2 [place] [facility] Melyssa [place] [id number] Melyssa [place] 11/21/2016 [place] [facility] Melyssa [place] [id number] Melyssa [place] 11/25/2016 1 [place] Melyssa A [place] [id number] Melyssa [place] Notes Date Note Type Note [...] Milena Dos Santos MD Attn: Accounting[address] [place], [address], [facility] 01/21/2016 15:15:32 03/21/2016 text/html She has gone to GI specialist for dilatation of esophageal stricture, her food regurgitaion has resolved and no more aspiration /or pneumonia and has gained weight after the improving appetite and oral intake but still smokes cigarettes. Milena Dos Santos MD Attn: Accounting,[address] [facility], [place], [address], [facility] 03/21/2016 17:39:07 11/24/2016 text/html She is happy abo ut that her ears can hear well again. and she had benign lump removed on her right thigh, had seen GI doctor for her esophageal dysphagia, still smokes cigarettes , using inhalers, chronic throat sore . Allergic to penicillins and demerol. Milena Dos Santos MD Attn: Accounting,[address] [facility], [place], [address], [facility] 11/24/2016 17:07:30 OBGyn Episode No OBEpisode recorded.
--- OUTSIDE RECORDS SUMMARY | 2024-11-01 05:12 | XMS_ITS | Clinical Summary ---
Author Organization [facility] [employer] Address [address] [address] Care Team Providers Care National Accounts Sales Name Role Phone Tommy King DO Primary Care Provider [phone] Source Comments [facility],non-owned Affiliates and Associated Physician Practices is amultiple site organization consisting of ambulatory clinics and hospital sitesin [place], [place], [place] and [place]. This disclosure is being madepursuant to the Care Everywhere program and may not contain all information available regarding this patient. 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 Oxygen Saturation 91% 08/05/2021 9:59 AM CDT [...] this topic Medical Devices Implanted Type Area Linseed Oil Press Tender Device Identifier Shelf Expiration Date Model / Serial / Lot Lead Nrstm 60cm Penta 3mm Pdl 16 [facility] - [id number] Implanted:Qty: 1 on 05/23/2021 by Esau Rose MD at [facility] Back [employer] 10/19/2022 [id number] / [id number] / Slnt Dura Duraseal Pg Trilysine Amine 5 Implanted:Qty: 1 on 05/23/2021 by Esau Rose MD at [facility] Back [employer] Erendira [id number] / / [id number] Gntr Nrstm 1.95inx2.19in [employer] - [id number] Implanted:Qty: 1 on 05/23/2021 by Esau Rose MD at [facility] Left: Back [employer] 03/26/2023 3660 / [id number] / Insurance MEDICARE MEDICAID - [place] [employer] MANAGED MEDICARE ADV MEDICAID SPEND[place] SELF PAY NO INSURANCE Member Subscriber Plan / Payer (Ef fective for All Dates) Name:Melyssa Mccall Member ID:Not on file Relation to Subscriber:Not on file Name:MELYSSA MCCALL Subscriber ID:Not on file (Home) Address: [address] [place] [address] [place] [address] Payer ID:Not on file Group ID:Not on file Type:Self Pay Address: [facility] MANAGED MEDICARE [facility] MEDICARE MEDICAID - OUT OF STATE Care Teams National Accounts Sales Relationship Specialty Start Date End Date Tommy King DO PCP - General Internal Medicine 04/23/21
--- NOTE | 2024-11-01 05:15 | ECG_ITS ---
Test Date: 2024-11-01 05:30:20 Measurements Intervals [place] Rate: 99 P: 77 MN: 136 QRS: 57 QRSD: 81 T: 70 QT: 332 QTc: 427 Interpretive Statements SINUS RHYTHM WITH OCCASIONAL SUPRAVENTRICULAR PREMATURE COMPLEXES POSSIBLE RIGHT ATRIAL ENLARGEMENT Compared to ECG 08/31/2024 09:04:27 No significant changes Electronically Signed On 11-01-2024 17:59:36 CDT by Debbie Franklin
[2024-11-01 05:32] LABS: Hematocrit 41.1 % (37.0-47.0); Hemoglobin 13.1 g/dL (12.0-15.0); Immature Granulocyte Percent A 0.1 % (0-0.5); Lymphocytes Absolute Auto 0.89 K/mm3 (0.9-3.2); Mean Corpuscular HGB Conc 31.9 g/dl (32-36); Mean Corpuscular Hemoglobin 30.8 pg (26-34); Mean Corpuscular Volume 96.7 fl (80-100); Nucleated Red Blood Cells Absolute Auto 0.000 K/mm3 (0.0-0.012); Nucleated Red Blood Cells Perc 0.0 % (0.0-0.2); Platelet Count Result 202 k/mm3 (150-375); Red Blood Count 4.25 M/mm3 (4.2-5.4); White Blood Count 7.2 K/mm3 (4.5-10.0)
[2024-11-01 05:44] LABS: Alanine Aminotransferase 20 U/L (6-35); Albumin Level 4.1 g/dL (3.5-5.1); Alkaline Phosphatase 81 U/L (38-126); Anion Gap 5 mmol/L (4-12); Aspartate Amino Transferase 37 U/L (14-36); Bilirubin,Total 0.9 mg/dL (0.2-1.3); Blood Urea Nitrogen 14 mg/dL (7-17); Calcium 9.2 mg/dL (8.4-10.2); Carbon Dioxide 33 mmol/L (22-30); Chloride 98 mmol/L (98-107); Estimated CRCL calculation 52 ml/min; Estimated Glomerular Filt Rate > 60; Glucose 111 mg/dL (65-110); Potassium 4.0 mmol/L (3.4-5.0); Sodium 136 mmol/L (137-145); Total Protein 8.2 g/dL (6.3-8.2)
--- NOTE | 2024-11-01 05:52 | ED.SOB ---
HPI - SOB/Dyspnea General Chief Complaint: Shortness of Breath/Dyspnea Stated Complaint: think i have pneumonia, SOB, chest pain Time Seen by Provider: 11/01/24 05:31 Source: patient Limitations: no limitations History of Present Illness HPI Narrative: Patient presents with concern for pneumonia. She states she is having shortness of breath as well as 7/10 in severity chest pain particularly located at the right superior anterior chest. Patient lives by herself. No sick contacts. At baseline she wears 2 L nasal cannula for COPD. She states she has developed a new cough since , does not chronically have a cough as part of her COPD. She states it is otherwise dry despite her feeling like she has sputum in her throat. No hemoptysis but she did have epistaxis. Not on anticoagulation, only 81 mg aspirin. Does not know if she has particularly been febrile although she did wake up diaphoretic and for this reason thought perhaps she had been while sleeping. She denies any edema. It is also causing back pain. No nausea or vomiting. Cardiac risk factors HTN: Yes HLD: Yes DM: No Obese: Not at all Smoker: Yes, 1/2 PPD stated today (previously listed as 1 PPD) Personal history AK/TIA/CVA: No Fam Hx AK in first degree relative <65yo: No Related Data Home Medications ?Medication ?Instructions ?Recorded ?Confirmed ?Last Taken ?Type aspirin 81 mg tablet,delayed 81 mg PO DAILY 06/02/19 10/06/24 08/10/24 History release (Adult Aspirin Regimen) cyclobenzaprine 5 mg tablet 5 mg PO Q12H 01/05/20 10/06/24 08/31/24 History oxycodone myristate 13.5 mg 13.5 mg PO Q12H 11/19/21 10/06/24 08/31/24 History capsule sprinkle extend release 12hr(DON'T CRUSH) (Xtampza ER) solifenacin 10 mg tablet (Vesicare) 5 mg PO HS 02/04/23 10/06/24 08/30/24 History cholecalciferol (vitamin D3) 125 125 mcg PO DAILY 07/24/23 10/06/24 08/31/24 History mcg (5,000 unit) tablet (Vitamin D3) guaifenesin 600 mg tablet, 600 mg PO Q12H 07/24/23 10/06/2425 History extended release 12 hr (Mucinex) loratadine 10 mg tablet 10 mg PO DAILY 07/24/23 10/06/24 08/31/24 History albuterol sulfate 90 mcg/actuation See Rx Instructions .Route 03/15/24 10/06/24 09/20/24 History aerosol inhaler .COMPLEX PRN Shortness Of Breath Or Wheezing lovastatin 40 mg tablet 40 mg PO HS 08/02/24 10/06/24 08/30/24 History Allergies Allergy/AdvReac Type Severity Reaction Status Date / Time Penicillins Allergy Severe Anaphylaxis Verified 09/29/24 10:00 meperidine Allergy Intermediate Itching Verified 09/29/24 10:00 sulfamethoxazole (From Allergy Intermediate Mouth Verified 09/29/24 10:00 Bactrim) burning/redness trimethoprim (From Bactrim) Allergy Intermediate Mouth Verified 09/29/24 10:00 burning/redness mirtazapine AdvReac Mild Headache Verified 09/29/24 10:00 PMF Past Medical History Medical History OSWALD (iron deficiency anemia) Osteopenia Liana esophagitis RLS (restless legs syndrome) Esophageal dilatation Chronic narcotic use On home O2 Chronic sinusitis Dysphagia Olecranon bursitis, left elbow PSVT (paroxysmal supraventricular tachycardia) Change in bowel habits Kidney stones Fibromyalgia Rheumatoid arthritis Arthritis Constipation IBS (irritable bowel syndrome) GERD (gastroesophageal reflux disease) Stomach ulcer Wears glasses Ventricular ectopics Lumbar radiculopathy Family history of colon cancer Adenomatous colon polyp Esophageal stricture Urge incontinence ILD (interstitial lung disease) Small amount of interstitial lung disease was seen on base of lungs on chest CT 03/25/2018 which was an abdomen and pelvis CT Essential hypertension Oxygen dependent 2L w/activity, 1 w/rest Collagen vascular disease Hyperlipidemia, unspecified Infectious colitis Mass in neck Thrush Anxiety 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, patient unsure of this diagnosis COPD (chronic obstructive pulmonary disease) Tobacco abuse Surgical History Surgical History History of partial hysterectomy Status post insertion of spinal cord stimulator History of bladder suspension procedure History of appendectomy History of lumbar surgery Spinal cord stimulator implanted 05/23/21 Family History Family History Mother Patient's mother is , Onset Age: 72 Sibling Carcinoma of colon Ovarian cancer Lung cancer Rectal cancer Family history of malignant neoplasm of breast in first degree relative Father Brain aneurysm Cerebrovascular accident, Onset Age: 54 Other Arthritis COPD (chronic obstructive pulmonary disease) High cholesterol Hypertension Lung disease Neuropathy Social History Social History Social History: caffeine-coffee/soda Smoking packs per day: 1 Smoking cigarettes per day: 20.0 Years smoked: 60 Smoking pack-years: 60.00 Smoking status: Current every day smoker Second hand tobacco smoke exposure: Yes Additional smoking assessment comments: Using Nicotine patches Alcohol intake: never Substance use: unknown Do You Feel Safe in your Home?: Yes Lack of Transportation: No Lack of Food: Never True Current Housing: I Have Housing Concerned About Future Housing: No Difficulty Paying Gas/Electric Bills: No Difficulty Paying for Meds: No Currently Unemployed: No Education: High School Diploma/GED Difficulty w/ Childcare or Family Care: No Living arrangements: alone Occupation/Education: retired Gender identity (if verbalized by the patient): Female Spiritual care concerns: No Exam Narrative: GENERAL: Chronically ill-appearing, cachectic but in no acute distress. HEAD: Normocephalic, atraumatic. EYES: Non injected, non icteric ENT: Nares clear, no rhinorrhea or epistaxis. Gross auditory acuity intact. NECK: Supple. No meningismus. CHEST: Speaking in full sentences. No respiratory distress. 2L NC in place. No appreciable wheezes HEART: Borderline tachycardic rate and rhythm. . ABDOMEN: Soft, nondistended. EXTREMITIES: Normal range of motion. No lower extremity edema. Lower extremities are very thin SKIN: Warm, dry, no rash. NEURO: No focal deficits. Alert and oriented. Answering questions. Following commands. Normal speech without aphasia or dysarthria. PSYCH: Normal mood and affect. Course Vital Signs Vital signs: Vital Signs Temperature 98.1 F 11/01/24 05:26 Pulse Rate 101 H 11/01/24 05:26 Respiratory Rate 22 H 11/01/24 05:26 Blood Pressure 140/59 L 11/01/24 05:26 Pulse Oximetry 99 11/01/24 05:26 Oxygen Delivery Nasal Cannula 11/01/24 05:26 Oxygen Flow Rate 2 11/01/24 05:26 Temperature 98.1 F 11/01/24 05:26 Pulse Rate 102 H 11/01/24 07:31 Respiratory Rate 25 H 11/01/24 07:31 Blood Pressure 123/62 11/01/24 07:31 Pulse Oximetry 99 11/01/24 06:46 Oxygen Delivery Nasal Cannula 11/01/24 05:26 Oxygen Flow Rate 2 11/01/24 05:26 MDM - SOB/Dyspnea MDM Narrative Medical decision making narrative: Patient presents with concern for pneumonia. She has developed a cough since and experiences shortness of breath with 7/10 chest pain particularly located along the right anterior superior aspect of chest. At baseline she wears 2 L nasal cannula for history of COPD. In the emergency department she is afebrile with vital signs notable for mild tachycardia and mild tachypnea. Blood pressure acceptable given mean arterial pressure is 86mmHg. HEART SCORE History 2 highly suspicious 1 moderately suspicious 0 slightly suspicious History score 0 (not located in typical place) ECG [address] depression/elevation not due to LBBB, LVH, or digoxin [address] depression but LBBB, LVH, nonspecific repolarization changes 0 normal ECG score 0 Age 2 >/= 65 1 45-64 0 <45 Age score 2 Risk factors (HTN, hypercholesterolemia, DM, obesity with BMI >30, current smoker or cessation </=3mo), positive fam hx with parent or sibling with CVD before age 65, atherosclerotic disease (prior AK, PCI/CABG, CVA/TIA, or peripheral arterial disease) 2 >/= 3 risk factors or history of atherosclerotic dz 1 - 1-2 risk factors 0 no known risk factors Risk factor score 2 Initial Troponin 2 >3 times normal limit 1 1-3 times normal limit 0 less than or equal to normal limit Troponin score 0 Total HEART Score 4 CXR with concern for PNA in RUL. CURB-65 score Confusion (No 0, Yes +1): 0 BUN >19mg/dl (No 0, Yes +1): 0 RR >/= 30 (No 0, Yes +1): 0 SBP <90mmHg or DBP </=60mmHg (No 0, Yes +1): 1 Age >/=65 (No 0, Yes +1): 1 Result = 2 points. 6.8% mortality rate in next 30 days Recommend inpatient versus outpatient with close follow up. Per review of EMR, this has been a chronic issue, with last admission for RUL pneumonia, approximately 2 months ago. At that time she was on Levaquin with the addition of Flagyl added upon admission given concern for aspiration. DRIP Score - predicts risk for CAP d/t drug-resistant pathogens Antibiotic use within 60 days (No 0, Yes +2): 2 half-way care resident (No 0, Yes +2): 0 Tube feeding (No 0, Yes +2): 0 Prior drug-resistant pneumonia Dx within 1 year (No 0, Yes +2): 2 Hospitalization within 60 days (No 0, Yes +1): 1 Chronic pulmonary disease (No 0, Yes +1): 1 Poor functional status (No 0, Yes +1): equivocal, suspect yes H2 valeriano or PPI within 14 days (No 0, Yes +1): 1 per med list Active wound care at time of admission (No 0, Yes +1): 0 MRSA colonization within 1 year (No 0, Yes +1): 1 Total: 8 Given this will be an inpatient/floor patient, will start ceftriaxone for potential drug resistant strep + azithromycin. I did get a phone call from pharmacy at 6:35 a.m. given that she lists an allergy to penicillins of anaphylaxis. We discussed however that there is low cross-reactivity with the cephalosporins especially this 3rd generation cephalosporin of ceftriaxone and, furthermore, patient is in the emergency department and will therefore be watched carefully. == Hospice Pulmonary Disease Of note, Given patient's COPD, recommend continuing conversation of goals of care to establish values and wishes as discuss further treatments and interventions. Of note, Medicare guidelines for hospice eligibility for patients with severe chronic lung disease are as follows: Patient will be considered to be in the terminal stage (life expectancy of 6 months or less) if they meet ALL of the following criteria: 1. Patient has all of the following: Difficulty breathing at rest, little or no response to bronchodilators, decreased functional capacity (example bed to chair existence, fatigue and cough) AND 2. Progression of disease evidenced by a recent history of increasing office, home, or ED visits and/or hospitalizations for pulmonary infection and/or respiratory failure. 3. Documentation within the past 3 months of hypoxemia at rest on room air (pO2 <55mmHg by ABG) or oxygen saturation <88%, hypercapnia evidenced by pCO2 >50mmHg. Supporting documentation includes: Cor pulmonale and right heart failure, unintentional progressive weight loss. Given this, a palliative care consult might be appropriate. == Dimer >1. Will proceed with CTA imaging. Discussed the recommendation that patient stay. She is in agreement. We discussed antibiotic therapy we will be trialing. She does not know if she experiences anaphylaxis to penicillins. Blood cultures have been ordered. Discussed with neonatal intensive care unit nurse hospitalist Dr Correa. Differential Diagnosis Differential diagnosis: Likely acute exacerbation of chronic obstructive airways disease, community acquired pneumonia, pulmonary embolism and other (acute viral syndrome; ACS; lung abscess) Lab Data Attestation: I reviewed the patient's lab results. Lab results narrative: CBC without leukocytosis anemia, thrombocytopenia, only mild abnormalities on differential 11/01/24 05:23 11/01/24 05:24 Labs: Lab Results 11/01/24 11/01/24 11/01/24 Range/Units 05:23 05:24 06:17 WBC 7.2 (4.5-10.0) K/mm3 RBC 4.25 (4.2-5.4) M/mm3 Hgb 13.1 (12.0-15.0) g/dL Hct 41.1 (37.0-47.0) % MCV 96.7 (80-100) fl MCH 30.8 (26-34) pg MCHC 31.9 L (32-36) g/dl RDW 12.0 (11.5-14.5) % Plt Count 202 (150-375) k/mm3 MPV 9.3 (7.4-10.4) fl Immature Gran % (Auto) 0.1 (0-0.5) % Neut % (Auto) 76.6 H (45.5-73.1) % Lymph % (Auto) 12.4 L (18.3-44.2) % [place] % (Auto) 7.9 (2.6-8.5) % Eos % (Auto) 2.6 (0-4.4) % Baso % (Auto) 0.4 (0.2-1.2) % Lymph # (Auto) 0.89 L (0.9-3.2) K/mm3 [place] # (Auto) 0.6 (0.1-0.6) K/mm3 Eos # (Auto) 0.2 (0-0.3) K/mm3 Baso # (Auto) 0.0 (0.0-0.1) K/mm3 Abs Immat Gran (auto) 0.01 (0.00-0.031) K/mm3 Absolute Neuts (auto) 5.5 (1.3-6.7) K/mm3 Absolute Nucleated RBC 0.000 (0.0-0.012) K/mm3 Nucleated RBC % 0.0 (0.0-0.2) % D-Dimer 1.62 H (<0.48) ug/mL Sodium Cancelled 136 L Potassium Cancelled 4.0 Chloride Cancelled 98 Carbon Dioxide Cancelled 33 H Anion Gap Cancelled 5 BUN Cancelled 14 D Creatinine Cancelled 0.52 L Estim Creat Clear Calc Cancelled 52 Estimated GFR Cancelled > 60 Glucose Cancelled 111 H Calcium Cancelled 9.2 Total Bilirubin Cancelled 0.9 AST Cancelled 37 H ALT Cancelled 20 Alkaline Phosphatase Cancelled 81 Troponin I < 0.012 (0.000-0.034) ng/mL Total Protein Cancelled 8.2 Albumin Cancelled 4.1 Influenza A (RT-PCR) Negative (Negative) Influenza B (RT-PCR) Negative (Negative) RSV (RT-PCR) Negative (Negative) SARS-CoV-2 RNA (RT-PCR) Negative (Negative) 11/01/24 Range/Units 08:18 WBC (4.5-10.0) K/mm3 RBC (4.2-5.4) M/mm3 Hgb (12.0-15.0) g/dL Hct (37.0-47.0) % MCV (80-100) fl MCH (26-34) pg MCHC (32-36) g/dl RDW (11.5-14.5) % Plt Count (150-375) k/mm3 MPV (7.4-10.4) fl Immature Gran % (Auto) (0-0.5) % Neut % (Auto) (45.5-73.1) % Lymph % (Auto) (18.3-44.2) % [place] % (Auto) (2.6-8.5) % Eos % (Auto) (0-4.4) % Baso % (Auto) (0.2-1.2) % Lymph # (Auto) (0.9-3.2) K/mm3 [place] # (Auto) (0.1-0.6) K/mm3 Eos # (Auto) (0-0.3) K/mm3 Baso # (Auto) (0.0-0.1) K/mm3 Abs Immat Gran (auto) (0.00-0.031) K/mm3 Absolute Neuts (auto) (1.3-6.7) K/mm3 Absolute Nucleated RBC (0.0-0.012) K/mm3 Nucleated RBC % (0.0-0.2) % D-Dimer (<0.48) ug/mL Sodium Potassium Chloride Carbon Dioxide Anion Gap BUN Creatinine Estim Creat Clear Calc Estimated GFR Glucose Calcium Total Bilirubin AST ALT Alkaline Phosphatase Troponin I Pending (0.000-0.034) ng/mL Total Protein Albumin Influenza A (RT-PCR) (Negative) Influenza B (RT-PCR) (Negative) RSV (RT-PCR) (Negative) SARS-CoV-2 RNA (RT-PCR) (Negative) Imaging Data Radiologist's impression: Impressions Chest X-Ray 11/01/24 05:48 Impression: Suspected right upper lobe pneumonia with associated underlying chronic scarring. COPD. Chest CTA 11/01/24 08:00 Impression: No evidence of pulmonary embolus, aortic dissection, or aortic aneurysm. Significant worsening of patchy airspace consolidation and interstitial thickening overload, compatible significant worsening of pneumonia. Central right upper lobe airspace opacity with cavitary or cystic change is again present, which could reflect underlying neoplastic disease or treated disease versus pneumonia. Severe emphysema. ECG Data EKG #1: Attestation: I personally reviewed and interpreted this ECG as follows: ECG completion date: 11/01/24 ECG completion time: 05:30 Interpretation: Normal sinus rhythm at a rate of 99 beats per minute. There is occasional premature complex. OR interval 136. QRS 81. QT/QTC 332/388. Good R-wave progression across the precordial leads. No T-wave inversions. No significant ST segment elevations or depressions. Normal axis. Discharge Plan Discharge Clinical Impression: COPD (chronic obstructive pulmonary disease), Right upper lobe pneumonia, Persistent pneumonia, Recurrent pneumonia Patient Disposition: Still a Patient Condition: Stable Patient Language: [place]guill[place] Prescriptions: No Action aspirin [Adult Aspirin Regimen] 81 mg tablet,delayed release (DR/EC) 81 mg PO DAILY cyclobenzaprine 5 mg tablet 5 mg PO Q12H solifenacin [Vesicare] 10 mg tablet 5 mg PO HS albuterol sulfate 2.5 mg /3 mL (0.083 %) solution for nebulization 2.5 mg inhalation Q4-6H PRN (Reason: shortness of breath or wheezing) Qty: 180 3RF Xtampza ER 13.5 mg cap,sprinkl,ER12hr(DONT CRUSH) 13.5 mg PO Q12H albuterol sulfate 90 mcg/actuation HFA aerosol inhaler See Rx Instructions .ROUTE .COMPLEX PRN (Reason: Shortness Of Breath Or Wheezing) Rx Instructions: INHALE 1 PUFF BY MOUTH EVERY 4 HOURS NEEDED FOR SHORTNESS OF BREATH lovastatin 40 mg tablet 40 mg PO HS loratadine 10 mg Tablet 10 mg PO DAILY cholecalciferol (vitamin D3) [Vitamin D3] 125 mcg (5,000 unit) Tablet 125 mcg PO DAILY guaifenesin [Mucinex] 600 mg Tablet Extended Release 12hr 600 mg PO Q12H metoprolol succinate 25 mg tablet extended release 24 hr See Rx Instructions .ROUTE .COMPLEX Qty: 90 2RF Dose Instruction: TAKE 1 TABLET BY MOUTH DAILY Rx Instructions: TAKE 1 TABLET BY MOUTH DAILY- AM omeprazole 40 mg capsule,delayed release(DR/EC) 40 mg PO DAILY Qty: 90 1RF Rx Instructions: TAKE 1 CAPSULE BY MOUTH DAILY Stiolto Respimat 2.5-2.5 mcg/actuation mist See Rx Instructions .ROUTE .COMPLEX Qty: 4 11RF Dose Instruction: INHALE 2 PUFFS BY MOUTH DAILY Rx Instructions: INHALE 2 PUFFS BY MOUTH DAILY fluticasone propionate [Flonase Allergy Relief] 50 mcg/actuation spray,suspension 1 spray intranasal BID PRN (Reason: nasal congestion) Qty: 16 3RF Rx Instructions: administer into each nostril gabapentin 300 mg capsule 300 mg PO Q12H Qty: 180 0RF paroxetine HCl 10 mg tablet 10 mg PO .COMPLEX Qty: 21 0RF Rx Instructions: Take 1 tab by mouth once daily for 2 weeks. Decreased to 1/2 tab once daily for 2 weeks and then discontinue medicine. ferrous sulfate [FeroSul] 325 mg (65 mg iron) tablet See Rx Instructions .ROUTE .COMPLEX Qty: 30 3RF Dose Instruction: TAKE 1 TABLET BY MOUTH EVERY MORNING Rx Instructions: TAKE 1 TABLET BY MOUTH EVERY MORNING azithromycin 250 mg tablet See Rx Instructions PO .COMPLEX Qty: 6 0RF Rx Instructions: take 500 mg today (day 1), then 250 mg for 4 days (days 2-5) PO Follow-up/Referrals: Grace Mondragon DO [Primary Care Provider] -
[2024-11-01 05:56] LABS: Troponin I < 0.012 ng/mL (0.000-0.034)
--- OUTSIDE RECORDS SUMMARY | 2024-11-01 06:09 | XMS_ITS | Clinical Summary ---
Author Organization [facility] [employer] Address [address] [place] [address] Care Team Providers Care Teaseler Name Role Phone Tommy King DO Primary Care Provider [phone] Source Comments [facility],non-owned Affiliates and Associated Physician Practices is amultiple site organization consisting of ambulatory clinics and hospital sitesin [place], [place], [place] and [place]. This disclosure is being madepursuant to the Care Everywhere program and may not contain all information available regarding this patient. Last updated 18.[facility] Allergies Active Allergy Reactions Criticality Noted [...] fluticasone propionate (FLONASE) 50 MCG/ACT nasal spray [place] 2 sprays into the nose once daily [...] 36.8 C (98.3 F) 06/12/2021 10:53 AM CHARACTER IMPERSONATOR Respiratory Rate 18 05/23/2021 12:51 PM CHARACTER IMPERSONATOR Oxygen Saturation 91% 08/05/2021 9:59 AM CDT [...] this topic Medical Devices Implanted Type Area Authorization Representative Device Identifier Shelf Expiration Date Model / Serial / Lot Lead Nrstm 60cm Penta 3mm Pdl [address] [facility] - [id number] Implanted:Qty: 1 on 05/23/2021 by Esau Rose MD at [facility] Back [employer] 10/19/2022 [id number] / [id number] / Slnt Dura Duraseal Pg Trilysine Amine 5 Implanted:Qty: 1 on 05/23/2021 by Esau Rose MD at [facility] Back [employer] Erendira [id number] / / [id number] Gntr Nrstm 1.95inx2.19in [employer]claim Elt - [id number] Implanted:Qty: 1 on 05/23/2021 by Esau Rose MD at [facility] Left: Back [employer] 03/26/2023 [id number] / [id number] / Insurance MEDICARE MEDICAID - [place] [employer] MANAGED MEDICARE ADV MEDICAID SPENDDOWN - [place] SELF PAY NO INSURANCE Member Subscriber Plan / Payer (Ef fective for All Dates) Name:Melyssa Mccall Member ID:Not on file Relation to Subscriber:Not on file Name:MELYSSA MCCALL Subscriber ID:Not on file (Home) Address: [address] [place] [address] [place] [address] Payer ID:Not on file Group ID:Not on file Type:Self Pay Address: [facility] MANAGED MEDICARE [facility] MEDICARE MEDICAID - OUT OF STATE Care Teams Teaseler Relationship Specialty Start Date End Date Tommy King DO PCP - General Internal Medicine 04/23/21
--- OUTSIDE RECORDS SUMMARY | 2024-11-01 06:09 | XMS_ITS | Encounter Summary ---
Author Organization [facility] Address [address] [place] [address] Care Team Providers Care Commercial Agent Name Role Phone Milena Dos Santos MD Primary Care Provider [phone] Tommy King DO Primary Care Provider [phone] [place] P[place] MD Unavailable [phone] Yvan Jaime MD Unavailable [phone] None, Provider Primary Care Provider Unavaila ble Encounter Details Date Type Department Care Team (Latest Contact Info) Description 03/09/2018 Abstract [facility] Michael Mclean MD Social History Tobacco Use Types Packs/Day Years Used Date Smoking Tobacco: Smoker, Current Status Unknown Comments Unknown Sex and Gender Information Value Date Recorded Sex Assigned at Not on file Legal Sex Female 11:35 PM CDT Gender Identity Female 05/09/2021 3:57 PM 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 Sexual Orientation Straight 05/09/2021 3: 57 PM 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 documented as of this encounter Plan of Treatment Not on file documented as of this encounter Visit Diagnoses Not on filedocumented in this encounter Care Teams Commercial Agent Relationship Specialty Start Date End Date Milena Dos Santos MD [address] [place] [address] PCP - General 06/03/16 04/03/19 Tommy King DO [address] [place] [address] PCP - General INTERNAL MEDICINE 04/04/19 03/27/22 None, [place], PCP - General UNKNOWN PHYSICIAN SPECIALTY 03/28/22 West Pino MD [address] [place] [address] UROLOGY 05/03/19 Yvan Jaime MD [address] [place] [address] Surgeon NEUROLOGICAL SURGERY 05/03/19 documented as of this encounter
--- OUTSIDE RECORDS SUMMARY | 2024-11-01 06:09 | XMS_ITS | Continuity of Care Document ---
Author Organization [facility] Address [address] [place] [address] Phone Care Team Providers Care Fermenter Helper Name Role Phone Sherif Doyle MD [...] Patch - Active Miacalcin 200 unit/Actuation Nasal [place] Aerosol 1 spray each nostril qd - [...] on Encounter [facility], [address], [id number], [place] tel:[phone] [facility] No Information 6 Vivek Gorman. [address] [place] [address], [id number] , [place]. tel:[phone] Offic/outpt E&m Estab Minor 10 [facility], [address] [address], [place], [place], [id number], [place] tel:[phone] [facility] No Information 6 José Luis Sullivan. [address] [facility], [address], [id number] , [place]. tel:[phone] Referring Provider: Nate Ordonez V, [address], [address] . tel:[phone] [facility], [address], [place], [place], [id number], [place] tel:[phone] [facility] No Information 6 José Luis Sullivan. [address], [place], [id number] , [place]. tel: [phone] Referring Provider: Nate Ordonez V, [address], [place], [address] . tel:[phone] [facility], [address], [place], [place], [id number], [place] tel:[phone] [facility] No Information 6 José Luis Sullivan. [address], [place], [place], [id number] , [place]. tel: [phone] Referring Provider: Nate Ordonez V, [address], [place], [address] . tel:[phone] Offic/outpt E&m Estab Low-mod [facility], [address], [place], [id number], [place] tel:[phone] [facility] No Information 6 José Lusi Sullivan. [address], [place], [place], [id number] , [place]. tel:[phone] Referring Provider: Nate Ordonez V, [address], [place], [address] . tel:[phone] Offic/outpt E&m Estab Low-mod [facility], [address], [place], [id number], [place] tel:[phone] [facility] No Information 6 José Luis Sullivan. [address], [place], [id number] , [place]. tel: [phone] Referring Provider: Nate Ordonez V, [address], [place], [address] . tel:[phone] Offic/outpt E&m Estab Minor 10 [facility], [address], [place], [id number], [place] tel:[phone] [facility] No Information May-0 9-200 6 José Luis Sullivan. [address], [place], [place], [id number] , [place]. tel:[phone] Referring Provider: Nate Ordonez V, [address], [place], [address] . tel:[phone] [facility], [address], [place], [place], [address], [place] tel:[phone] [facility] No Information May-0 5-200 6 José Luis Sullivan. [address], [place], [place], [address] , [place]. tel:[phone] Referring Provider: Nate Ordonez V, [address], [place], [address] . tel:[phone] [facility], [address], [place], [address], [place] tel:[phone] [facility] No Information May-0 2-200 6 José Luis Sullivan. [address], [place], [place], [id number] , [place]. tel:[phone] Referring Provider: Nate Ordonez V, [address], [place], [address] . tel:[phone] [facility], [address], [place], [address], [place] tel:[phone] [facility] No Information Apr-2 8-200 6 Ordonez Nate. [address], [address], [place], [id number] , [place]. tel:[phone] Referring Provider: Nate Ordonez V, [address], [place], [address] . tel:[phone] [facility], [address], [place], [place], [id number], [place] tel:[phone] [facility] No Information Aug- 5-200 6 José Luis Sullivan. [address], [place], [address] , [place]. tel:[phone] Referring Provider: Nate Ordonez V, [address], [place], [address] . tel:[phone] [facility], [address], [place], [id number], [place] tel:[phone] [facility] No Information 6 José Luis Sullivan. [address], [place], [id number] , [place]. tel:[phone] Referring Provider: Nate Ordonez V, [address], [place], [address] . tel:[phone] [facility], [address], [place], [address], [place] tel:[phone] [facility] No Information 200 6 José Luis Sullivan. [address], [place], [id number] , [place]. tel:[phone] Referring Provider: Nate Ordonez V, [address], [place], [address] . tel:[phone] Offic Cons New/estab Mod-hi 60 [facility], [address], [place], [address], [place] tel:[phone] [facility] No Information 8-200 6 José Luis Sullivan. [address], [facility] [address], [place], [id number] , [place]. tel:[phone] Referring Provider: Nicho Goldstein MD B, [address] [place], [address]. tel:[phone] Family History Family Member Type Diagnosis Age At Onset Gen Fam Hx Problem (finding) Cancer Gen Fam Hx Problem (finding) Stroke Payers Payer name Insurance type Covered constitution party ID Authorstepha jevon(s) BC[employer] Of [facility] [id number] Social History Type Description Quantity Date Captured [...]
--- OUTSIDE RECORDS SUMMARY | 2024-11-01 06:09 | XMS_ITS | Clinical Summary ---
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
--- OUTSIDE RECORDS SUMMARY | 2024-11-01 06:09 | XMS_ITS | Clinical Summary ---
Author Organization [facility] Address [address] [place] [address] Care Team Providers Care Electromechanical Equipment Assembler Name Role Phone West Pino MD Unavailable [phone] Yvan Jaime MD Unavailable [phone] None, Provider MD Primary Care Provider Unavaila [...] CDT Gender Identity Female 05/09/2021 3:57 PM FABRIC SOURCER Sexual Orientation Straight 05/09/2021 3: 57 PM FABRIC SOURCER Last Filed Vital Signs Vital Sign Reading Time Taken Comments Blood Pressure 106/60 03/28/2022 9:13 AM FABRIC SOURCER Pulse 80 03/28/2022 9:13 AM FABRIC SOURCER Temperature 36.1 C (97 F) 03/28/2022 9:13 AM FABRIC SOURCER Respiratory Rate 20 03/28/2022 9:13 AM FABRIC SOURCER Oxygen Saturation 94% 03/28/2022 9:13 AM FABRIC SOURCER Inhaled Oxygen Concentration - - Weight 52.6 kg (116 lb) 03/28/2022 9:13 AM FABRIC SOURCER Height 167.6 cm (5' 6) 03/28/2022 9:13 AM FABRIC SOURCER Body Mass Index 18.72 03/28/2022 9:13 AM FABRIC SOURCER Plan of Treatment Health Maintenance Due Date [...] this topic Medical Devices Implanted Type Area Cheerleading Coach Device Identifier Shelf Expiration Date Model / Serial / Lot Stent Bard Plover 6fr X 24cm - [id number] Implanted:Qty : 1 on 05/17/2019 by West Pino MD at [facility] Stent Left: Ureter [employer] 05/12/2023 [id number] / / [id number] Stent Bard Plover 6fr X 24cm - [id number] Implanted:Qty : 1 on 05/17/2019 by West Pino MD at [facility] Stent Right: Ureter [employer] 05/12/2023 [id number] / / [id number] Stent Ureteral Pigtail 6fr 24cm Crv Taper Tip - [id number] Implanted:Qty : 1 on 02/26/2021 by West Pino MD at [facility] Stent Left: Ureter Trib[employer]I [id number] 11/28/2023 [id number] Procedures Procedure Name Priority Date/Time Associated Diagnosis Comments MG SCREENING PAIGE DIGI Routine 04/16/2015 3:06 PM FABRIC SOURCER from Last 3 Months or Most Recently Relevant to Health Maintenance Results * MG SCREENING PAIGE DIGI (04/16/2015 3:06 PM FABRIC SOURCER) Anatomical Region Laterality Modality Breast Bilateral Mammography 04/16/2015 3:06 PM FABRIC SOURCER 04/16/2015 3:06 PM FABRIC SOURCER Narrative 04/16/2015 3:24 PM FABRIC SOURCER MELYSSA MCCALL ADMIT/SERVICE DATE: 04/16/15 ACCT: [id number] DISCHARGE DATE: : 1955 SEX: F ORD SITE: [facility] PT TYPE: REG CLI ORDERING MD: MANE RAMIREZ MD STUDY DATE REPORT # ORDER # EXT ORDER ID 04/16/15 [id number] PROC CODE: SCMAMDGB PROCEDURE DESCRIPTION: MG SCREEN [...] - 02/26/2018 MELYSSA MCCALL ADMIT/SERVICE DATE:04/16/15 ACCT: [id number] DISCHARGE DATE: : 1955 SEX: F ORD SITE: [facility] PT TYPE: REG CLI ORDERING MD:MANE RAMIREZ MD STUDY DATE REPORT # ORDER # EXT ORDER ID 04/16/15 [id number] PROC CODE: SCMAMDGB PROCEDURE DESCRIPTION: MG SCREEN [...] 1:01 PM 02/26/2021 3:43 PM Care Teams Electromechanical Equipment Assembler Relationship Specialty Start Date End Date None, ProviderMD PCP - General UNKNOWN PHYSICIAN SPECIALTY 03/28/22 West Pino MD UROLOGY 05/03/19 Yvan Jaime MD [address] [place] [address] Surgeon NEUROLOGICAL SURGERY 05/03/19
--- OUTSIDE RECORDS SUMMARY | 2024-11-01 06:09 | XMS_ITS | Referral Summary ---
Author Organization 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
[2024-11-01] MEDS: IPRATROPIUM 0.5 MG/ALBUTEROL SULFATE 2.5 MG AMPUL.NEB 3 ML INHALATION (06:25)
[2024-11-01] MEDS: AZITHROMYCIN 250 MG TABLET 500 MG PO (06:46)
[2024-11-01 06:59] LABS: Influenza A QL RT-PCR Negative (Negative); Influenza B QL RT-PCR Negative (Negative); RSV RNA, RT-PCR Negative (Negative); SARS-CoV-2 RNA PCR Negative (Negative)
--- NOTE | 2024-11-01 07:59 | ECG_ITS ---
Test Date: 2024-11-01 08:05:59 Measurements Intervals Crowder Rate: 100 P: 83 SC: 129 QRS: 54 QRSD: 81 T: 75 QT: 334 QTc: 431 Interpretive Statements SINUS TACHYCARDIA ABNORMAL RHYTHM ECG Compared to ECG 11/01/2024 05:30:20 Sinus rhythm no longer present Electronically Signed On 11-01-2024 18:01:18 CDT by Debbie Franklin
[2024-11-01 08:49] LABS: Troponin I < 0.012 ng/mL (0.000-0.034)
--- NOTE | 2024-11-01 09:17 | PC.NURSE ---
Addendum entered by Ileana Zepeda RN 11/01/24 09:20: fixing times, 0846 report called to 3rd med surg, was placed on hold for 5 minutes. ARSH Lugo called back at 0902 for report on the patient. Original Note: report called at 0746, was on hold for 5 minutes. RN called back at 0802 for report.
--- NOTE | 2024-11-01 09:23 | ADMGEN ---
This patient, Melyssa Mccall, was admitted to [facility] Room 305-01. Patient/family oriented to hospital policies and general routines including ID bracelet, bed and alarms, visiting hours, pain management, procedures, bathroom and other care routines, personal items, smoking policy, room service/diet, and visiting hours. Information on how to activate the Rapid Response Team has been discussed. Patient/Family are encouraged to report perceived risks to care and to ask questions if they do not understand what they are told or what they should do.
--- NOTE | 2024-11-01 11:43 | PCRCNOTE ---
Spoke with patient to see if she needed us to supply Bipap or family is going to bring her home unit in. She is going to ask family to bring in. Made RN aware. If not brought in RN will let me know.
[2024-11-01 11:49] LABS: Troponin I < 0.012 ng/mL (0.000-0.034)
--- NOTE | 2024-11-01 15:03 | PM.IMHP ---
H&P: HPI History of Present Illness Date/Time: 11/01/24 15:03 Chief Complaint: Shortness of breath Narrative: This is a 69-year-old female who presents to the ED with shortness of breath and right upper chest pain. She also reports cough which has been ongoing since past few days. It she has underlying COPD continues to smoke. She has been on oxygen 2 L via nasal cannula lactic chronically. No hemoptysis. Does not report any fever or chills. 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 The ED her vitals were stable mild tachycardia oxygen saturation adequate on 2 L oxygen via nasal cannula. Laboratory studies showed WBC 7.2 hemoglobin 13.1 platelet count 202. Sodium 136 potassium 4 chloride 98 BUN 14 creatinine 0.53 bicarbonate 33 blood glucose 111. D-dimer elevated at 1.62. Troponin is negative less than 0.012. Influenza RSV COVID swab was negative. Chest x-ray showed suspected right upper lobe pneumonia with associated underlying chronic scarring with COPD changes. She underwent chest CTA which showed no evidence of PE aortic dissection or aortic aneurysm. Significant worsening of patchy airspace consolidation and interstitial thickening overload compatible with significant worsening of pneumonia. Central right upper lobe airspace opacity with cavitary are cystic changes again present which could reflect underlying neoplastic disease or treated disease versus pneumonia. Severe emphysema was noted. EKG with normal sinus rhythm with nonspecific ST-T changes. She was given ceftriaxone and azithromycin in the ER and is admitted for further treatment. Review of Systems Review of Systems: - CONSTITUTIONAL: Denies weight loss, fever and chills. - HEENT: Denies changes in vision and hearing - RESPIRATORY: Reports SOB and cough. - CV: Denies palpitations and reports CP. - GI: Denies abdominal pain, nausea, vomiting and diarrhea. - : Denies dysuria and urinary frequency. - MSK: Denies myalgia and joint pain. - SKIN: Denies rash and pruritus. - NEUROLOGICAL: Denies headache and syncope. - PSYCHIATRIC: Denies recent changes in mood. Denies anxiety and depression. [facility] Past Medical History Medical History OSWALD (iron deficiency anemia) Osteopenia Liana esophagitis RLS (restless legs syndrome) Esophageal dilatation Chronic narcotic use On home O2 Chronic sinusitis Dysphagia Olecranon bursitis, left elbow PSVT (paroxysmal supraventricular tachycardia) Change in bowel habits Kidney stones Fibromyalgia Rheumatoid arthritis Arthritis Constipation IBS (irritable bowel syndrome) GERD (gastroesophageal reflux disease) Stomach ulcer Wears glasses Ventricular ectopics Lumbar radiculopathy Family history of colon cancer Adenomatous colon polyp Esophageal stricture Urge incontinence ILD (interstitial lung disease) Small amount of interstitial lung disease was seen on base of lungs on chest CT 03/25/2018 which was an abdomen and pelvis CT Essential hypertension Oxygen dependent 2L w/activity, 1 w/rest Collagen vascular disease Hyperlipidemia, unspecified Infectious colitis Mass in neck Thrush Anxiety 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, patient unsure of this diagnosis COPD (chronic obstructive pulmonary disease) Tobacco abuse Surgical History Surgical History History of partial hysterectomy Status post insertion of spinal cord stimulator History of bladder suspension procedure History of appendectomy History of lumbar surgery Spinal cord stimulator implanted 05/23/21 Family History Family History Mother Patient's mother is , Onset Age: 72 Sibling Carcinoma of colon Ovarian cancer Lung cancer Rectal cancer Family history of malignant neoplasm of breast in first degree relative Father Brain aneurysm Cerebrovascular accident, Onset Age: 54 Other Arthritis COPD (chronic obstructive pulmonary disease) High cholesterol Hypertension Lung disease Neuropathy Social History Social History Social History: caffeine-coffee/soda Smoking packs per day: 1 Smoking cigarettes per day: 20.0 Years smoked: 60 Smoking pack-years: 60.00 Smoking status: Current every day smoker Second hand tobacco smoke exposure: Yes Additional smoking assessment comments: Using Nicotine patches AT TIMES Alcohol intake: never Substance use: unknown Substance use type: does not use Do You Feel Safe in your Home?: Yes Lack of Transportation: No Lack of Food: Never True Current Housing: I Have Housing Concerned About Future Housing: No Difficulty Paying Gas/Electric Bills: No Difficulty Paying for Meds: No Currently Unemployed: No Education: High School Diploma/GED Difficulty w/ Childcare or Family Care: No Living arrangements: alone Occupation/Education: retired Gender identity (if verbalized by the patient): Female Spiritual care concerns: No Meds Home Medications and Allergies Home Medications ?Medication ?Instructions ?Recorded ?Confirmed ?Type aspirin 81 mg tablet,delayed 81 mg PO DAILY 06/02/19 11/01/24 History release (Adult Aspirin Regimen) cyclobenzaprine 5 mg tablet 5 mg PO Q12H 01/05/20 11/01/24 History oxycodone myristate 13.5 mg 13.5 mg PO Q12H 11/19/21 11/01/24 History capsule sprinkle extend release 12hr(DON'T CRUSH) (Xtampza ER) solifenacin 10 mg tablet (Vesicare) 5 mg PO HS 02/04/23 11/01/24 History cholecalciferol (vitamin D3) 125 125 mcg PO DAILY 07/24/23 11/01/24 History mcg (5,000 unit) tablet (Vitamin D3) guaifenesin 600 mg tablet, 1,200 mg PO Q12H 07/24/23 11/01/24 History extended release 12 hr (Mucinex) loratadine 10 mg tablet 10 mg PO DAILY 07/24/23 11/01/24 History metoprolol succinate 25 mg See Rx Instructions .Route 10/28/23 11/01/24 Rx tablet,extended release 24 hr .COMPLEX #90 tabs albuterol sulfate 90 mcg/actuation See Rx Instructions .Route 03/15/24 11/01/24 History aerosol inhaler .COMPLEX PRN Shortness Of Breath Or Wheezing omeprazole 40 mg capsule,delayed 40 mg PO DAILY #90 caps 06/02/24 11/01/24 Rx release albuterol sulfate 2.5 mg/3 mL 2.5 mg (3 mL) inhalation Q4-6H PRN 06/07/24 11/01/24 Rx (0.083 %) solution for nebulization shortness of breath or wheezing #180 mL tiotropium 2.5 mcg-olodaterol 2.5 See Rx Instructions .Route 06/20/24 11/01/24 Rx mcg/actuation mist for inhalation .COMPLEX #4 grams (Stiolto Respimat) fluticasone propionate 50 1 spray intranasal BID PRN nasal 07/11/24 11/01/24 Rx mcg/actuation nasal congestion #16 grams spray,suspension (Flonase Allergy Relief) lovastatin 40 mg tablet 40 mg PO HS 08/02/24 11/01/24 History gabapentin 300 mg capsule 300 mg PO Q12H #180 caps 08/29/24 11/01/24 Rx ferrous sulfate 325 mg (65 mg See Rx Instructions .Route 10/17/24 11/01/24 Rx iron) tablet (FeroSul) .COMPLEX #30 tabs Allergies Allergy/AdvReac Type Severity Reaction Status Date / Time Penicillins Allergy Severe Anaphylaxis Verified 09/29/24 10:00 meperidine Allergy Intermediate Itching Verified 09/29/24 10:00 sulfamethoxazole (From Allergy Intermediate Mouth Verified 09/29/24 10:00 Bactrim) burning/redness trimethoprim (From Bactrim) Allergy Intermediate Mouth Verified 09/29/24 10:00 burning/redness mirtazapine AdvReac Mild Headache Verified 09/29/24 10:00 Vital Signs Vital Signs - 24 hr 11/01/24 05:26 11/01/24 05:26 11/01/24 05:30 Temperature 98.1 F Pulse Rate 101 H 101 H Respiratory Rate 22 H 19 Blood Pressure 140/59 L 140/59 L Pulse Oximetry 99 100 100 Oxygen Delivery Nasal Cannula Nasal Cannula Oxygen Flow Rate 2 2 11/01/24 06:12 11/01/24 06:15 11/01/24 06:16 Temperature Pulse Rate 96 93 96 Respiratory Rate 23 H 23 H 20 Blood Pressure 126/67 Pulse Oximetry 100 100 100 Oxygen Delivery Oxygen Flow Rate 11/01/24 06:25 11/01/24 06:30 11/01/24 06:31 Temperature Pulse Rate 99 93 100 Respiratory Rate 25 H 24 H 21 H Blood Pressure 127/61 Pulse Oximetry Oxygen Delivery Oxygen Flow Rate 11/01/24 06:45 11/01/24 06:46 11/01/24 07:09 Temperature Pulse Rate 104 H 98 104 H Respiratory Rate 22 H 23 H 23 H Blood Pressure 132/65 Pulse Oximetry 100 99 Oxygen Delivery Oxygen Flow Rate 11/01/24 07:31 11/01/24 07:32 11/01/24 07:45 Temperature Pulse Rate 102 H 102 H 103 H Respiratory Rate 25 H 18 21 H Blood Pressure 123/62 Pulse Oximetry Oxygen Delivery Oxygen Flow Rate 11/01/24 07:46 11/01/24 08:00 11/01/24 08:01 Temperature Pulse Rate 106 H 109 H 107 H Respiratory Rate 24 H 21 H 18 Blood Pressure 136/53 L 124/62 Pulse Oximetry Oxygen Delivery Oxygen Flow Rate 11/01/24 08:15 11/01/24 08:16 11/01/24 08:30 Temperature Pulse Rate 106 H 105 H 95 Respiratory Rate 18 20 23 H Blood Pressure 126/54 L Pulse Oximetry Oxygen Delivery Oxygen Flow Rate 11/01/24 08:31 11/01/24 09:40 11/01/24 10:30 Temperature 97.3 F L Pulse Rate 95 102 H Respiratory Rate 25 H 18 20 Blood Pressure 122/57 L 125/67 Pulse Oximetry 99 99 Oxygen Delivery Nasal Cannula Oxygen Flow Rate 3 11/01/24 13:31 Temperature 97.5 F L Pulse Rate 114 H Respiratory Rate 18 Blood Pressure 123/56 L Pulse Oximetry 99 Oxygen Delivery Oxygen Flow Rate H&P: Results Labs Labs: Short CBC 11/01/24 Range/Units 05:23 WBC 7.2 (4.5-10.0) K/mm3 Hgb 13.1 (12.0-15.0) g/dL Hct 41.1 (37.0-47.0) % Plt Count 202 (150-375) k/mm3 BMP 11/01/24 11/01/24 05:23 05:24 Sodium Cancelled 136 L Potassium Cancelled 4.0 Chloride Cancelled 98 Carbon Dioxide Cancelled 33 H BUN Cancelled 14 D Creatinine Cancelled 0.52 L Glucose Cancelled 111 H Calcium Cancelled 9.2 Cardiac Enzymes 11/01/24 11/01/24 11/01/24 Range/Units 05:24 08:18 11:06 Troponin I < 0.012 < 0.012 < 0.012 (0.000-0.034) ng/mL Liver Function 11/01/24 11/01/24 Range/Units 05:23 05:24 Total Bilirubin Cancelled 0.9 AST Cancelled 37 H ALT Cancelled 20 Alkaline Phosphatase Cancelled 81 Albumin Cancelled 4.1 Assessment and Plan Assessment and plan (1) Depression with anxiety: Code(s): F41.8 - Other specified anxiety disorders Status: Acute (2) Essential hypertension: Code(s): I10 - Essential (primary) hypertension Status: Chronic (3) Hyperlipidemia, unspecified: Qualifiers: Hyperlipidemia type: unspecified Qualified Code(s): E78.5 - Hyperlipidemia, unspecified Code(s): E78.5 - Hyperlipidemia, unspecified Status: Acute (4) Prediabetes: Code(s): R73.03 - Prediabetes Status: Acute (5) Vitamin D deficiency: Code(s): E55.9 - Vitamin D deficiency, unspecified Status: Acute (6) B12 deficiency: Code(s): E53.8 - Deficiency of other specified B group vitamins Status: Acute (7) Severe protein-calorie malnutrition: Code(s): E43 - Unspecified severe protein-calorie malnutrition Status: Acute (8) Gastroesophageal reflux disease without esophagitis: Code(s): K21.9 - Gastro-esophageal reflux disease without esophagitis Status: Acute (9) Esophageal stricture: Code(s): K22.2 - Esophageal obstruction Status: Acute (10) Adenomatous colon polyp: Code(s): D12.6 - Benign neoplasm of colon, unspecified Status: Acute (11) Peripheral neuropathy: Qualifiers: Peripheral neuropathy type: idiopathic neuropathy, unspecified Qualified Code(s): G60.9 - Hereditary and idiopathic neuropathy, unspecified Code(s): G62.9 - Polyneuropathy, unspecified Status: Acute (12) RLS (restless legs syndrome): Code(s): G25.81 - Restless legs syndrome Status: Acute (13) Right upper lobe pneumonia: Code(s): J18.9 - Pneumonia, unspecified organism Status: Acute (14) Chronic respiratory failure with hypoxia: Code(s): J96.11 - Chronic respiratory failure with hypoxia Status: Acute (15) ILD (interstitial lung disease): Code(s): J84.9 - Interstitial pulmonary disease, unspecified Status: Acute (16) Oxygen dependent: Code(s): Z99.81 - Dependence on supplemental oxygen Status: Acute (17) Recurrent pneumonia: Code(s): J18.9 - Pneumonia, unspecified organism Status: Acute (18) Tobacco abuse: Code(s): Z72.0 - Tobacco use Status: Acute Plan This is a 69-year-old female who presents to the ED with shortness of breath and right upper chest pain. She also reports cough which has been ongoing since past few days. It she has underlying COPD continues to smoke. She has been on oxygen 2 L via nasal cannula lactic chronically. No hemoptysis. Does not report any fever or chills. 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 The ED her vitals were stable mild tachycardia oxygen saturation adequate on 2 L oxygen via nasal cannula. Laboratory studies showed WBC 7.2 hemoglobin 13.1 platelet count 202. Sodium 136 potassium 4 chloride 98 BUN 14 creatinine 0.53 bicarbonate 33 blood glucose 111. D-dimer elevated at 1.62. Troponin is negative less than 0.012. Influenza RSV COVID swab was negative. Chest x-ray showed suspected right upper lobe pneumonia with associated underlying chronic scarring with COPD changes. She underwent chest CTA which showed no evidence of PE aortic dissection or aortic aneurysm. Significant worsening of patchy airspace consolidation and interstitial thickening overload compatible with significant worsening of pneumonia. Central right upper lobe airspace opacity with cavitary are cystic changes again present which could reflect underlying neoplastic disease or treated disease versus pneumonia. Severe emphysema was noted. EKG with normal sinus rhythm with nonspecific ST-T changes. She was given ceftriaxone and azithromycin in the ER and is admitted for further treatment. Right upper lobe pneumonia recurrent pneumonia on right upper lobe with persistent consultation since August 02, 2024 which is new since 12/08/2023. Treated with multiple rounds of antibiotics. Recent was treated with Levaquin and Flagyl. Started on ceftriaxone and azithromycin. These opacities seem worsened over time with significant cavitation and scarring. Will consult pulmonary. Need to rule out underlying malignancy. 2.7 cm enhancing hepatic lesion will get ultrasound right upper quadrant. May need MRI liver eventually will await ultrasound findings COPD exacerbation Chronic respiratory failure with hypoxia and hypercapnia BiPAP at night Tobacco abuse History of esophageal stricture status post EGD and dilatation Severe calorie malnutrition Hypertension Hyperlipidemia Paroxysmal SVT on beta-valeriano Iron deficiency anemia Restless leg syndrome Fibromyalgia Rheumatoid arthritis RA factor was elevated at 22.4 MICKI screen was negative will check anti CCP Irritable bowel syndrome GERD Interstitial lung disease Anxiety depression DVT prophylaxis Code status full code Hospitalist MIPS Advance Care Plan I have confirmed that the patient's Advanced Care Plan is present, code status is documented, or surrogate decision maker is listed in patient medical record.: Yes Medication Reconciliation I have utilized all available resources to obtain, update and review the patients current medications (includes all prescriptions, OTC, herbals, cannabis, and nutritional supplements).: Yes
--- NOTE | 2024-11-01 15:35 | CY_PTH ---
PATIENT: Melyssa Mccall LOC: [id number] U#:[id number] AGE/SX: 69/F ROOM: 310 RE11/02/[address]: Arnel Watts MD : [id number] BED: 01 DIS: 11/07/2024 SPEC #: [id number] RECD: 11/03/24 07:58 STATUS: IKER RETorrey #: [id number] SRI: 11/01/24 15:[address]: Vipul Correa DEPT: [facility] Cytology RECD BY: Sapna Casiano ENTERED: 11/03/24 08:00 SP TYPE: Cytology OTHR DR: MD Grace Lewis DO Barbara J. Foner, MD Anoushiravan Hakim, MD Tissues: A - Sputum Procedures: Hematoxylin and Eosin Stain Cell Block Cytopathology Smear Cytopathology Cytospin
--- NOTE | 2024-11-01 17:04 | PM.CNPUL ---
Assessment and Plan Assessment and plan (1) Acute on chronic respiratory failure: Qualifiers: Respiratory failure complication: hypoxia and hypercapnia Qualified Code(s): J96.21 - Acute and chronic respiratory failure with hypoxia; J96.22 - Acute and chronic respiratory failure with hypercapnia Code(s): J96.20 - Acute and chronic respiratory failure, unspecified whether with hypoxia or hypercapnia Status: Acute Assessment and Plan: She is only only requires oxygen 2 L with exertion and with sleep, this admission required oxygen at rest 2-3 liters/minute. This is due to her acute illness. She has had hypercapnia dating back to 07/07/2019, her highest pCO2 on a blood gas was this past September,September 05, 2024 with a pCO2 of 70.7. She uses oxygen at home 2 L a minute at night. Will wean her oxygen as tolerated and perform a home oxygen evaluation prior to her discharge. (2) Cavitary lesion of lung: Code(s): J98.4 - Other disorders of lung Status: Acute Assessment and Plan: She has had an evolving right upper lobe scar/density over the last several CT scans now with a cavity. I looked at her CT scans from August 31 2024, CTA, October 21 and November 01. The overall lesion is larger and more cavitary. The differential includes malignancy, fungal, non tuberculous and tuberculous mycobacteria, autoimmune, she has Raynaud's an a diagnosis of RA which can cause cavitary lung nodules. In general these resolved on their own without treatment. The patient has been treated for pneumonia multiple times in the last few months. (3) ILD (interstitial lung disease): Code(s): J84.9 - Interstitial pulmonary disease, unspecified Status: Acute Assessment and Plan: She has had evidence of interstitial lung disease dating back to at least 2018 and she has rheumatoid arthritis so her ILD is related to her autoimmune condition. (4) Tobacco abuse: Code(s): Z72.0 - Tobacco use Status: Acute Assessment and Plan: She continues to smoke, smoked 2 days prior to admission. Tobacco cessation was strongly stressed, and of course she can not smoke while she is in the hospital. We discussed tobacco cessation today. Is necessary for her survival. She has recurrent admissions and decompensations that are difficult to manage, jeffery with on-going smoking tobacco. (5) Right upper lobe pneumonia: Qualifiers: Pneumonia type: due to unspecified organism Qualified Code(s): J18.9 - Pneumonia, unspecified organism Code(s): J18.9 - Pneumonia, unspecified organism Status: Acute Assessment and Plan: Recurrent pneumonias, several recent admission. * 09/01/24 modified barium swallow; Trace penetration without aspiration. (6) Pulmonary cachexia due to chronic obstructive pulmonary disease: Code(s): R64 - Cachexia; J44.9 - Chronic obstructive pulmonary disease, unspecified Status: Acute Assessment and Plan: She has pulmonary cachexia due to chronic obstructive pulmonary disease as well as interstitial lung disease. Her smoking also though is increasing her metabolic rate, contributing to her unintentional weight loss. I talked with her about tobacco cessation as a means to help her maintain her body weight. She may benefit from supplemental protein drinks. Plan plan: 1. Continue treatment for COPD, empiric antibiotics. I will check a QuantiFERON gold, I do not see 1 in the system and because she has a cavitary lesion I want make sure that she does not have non tuberculous mycobacteria; she does not really have enough sputum to submit. She has never grown any mycobacteria. Without sputum to submit we are not going to be able to recover fungus, AFB or any other pathogen. We may consider an extended spectrum respiratory panel at some point. 2) Hepatic lesion definitely should have additional evaluation as recommended by the radiologist, MRI and or biopsy. If the right upper lobe lesion is malignant, biopsying the hepatic nodule would be much safer. She has advanced emphysema and right now needs oxygen even at rest. She normally uses oxygen with exertion. She is at high risk for a CT-guided needle biopsy of the right upper lobe cavitary pneumonia. 3) Tobacco cessation 4) protein supplementation I will follow closely with you. She has a normal white blood cell count, no fever, he has pleuritic pain in the area where her cavitary lesion is radiographically. History of Present Illness History of Present Illness Consult date: 11/01/24 Requesting physician: Vipul Correa MD Chief complaint: Recurrent PNA/COPD Narrative: patient was seen November 01, 2024 at 17:10 Room 310-1 NEW: Melyssa Mccall is a 69-year old woman followed in our practice most recent visit was 10/06/2024, she has recurrent pneumonias, hypertension, hyperlipidemia, SVT, the esophageal ring status post dilation, chronic sinusitis, COPD on home oxygen, chronic hypercapnic hypoxemic respiratory failure. She was in the hospital August 31 through September 07, has been on Levaquin and other antibiotics as an outpatient recently; she saw Dr. Newman in follow-up on October 06 and afterwards had a PFT showing a severe obstructive abnormality, hyperinflation severely decreased diffusion. Her 6 minute walk showed that she did not require supplemental oxygen at rest she does require 2 L a minute with exertion. She says that at home she felt like she just could not catch her breath. She was sweating, coughing and with each intense cough, she had pain initially in the right posterior chest and then it wraps around to the right anterior chest. She cannot expectorate her secretions very easily. Her last cigarette was 2 days prior to admission. She complains of crusting in her nose and scant bleeding from the nose. This may be due to nasal cannula O2. She does not have hemoptysis. She has lost from 137 lb to 90 lb over the last 3 years. She has diffuse aches and pains. She has had no GI symptoms, nose specific sinus complaints, no sore throat or earache. Her saturation on admission is 99% on 2 liters/minute. DATA * sodium 136, potassium 4.0, chloride 98, carbon dioxide 33, BUN 14, , creatinine 0.52, glucose 111k, white blood cell count 7.2 k with 76% awga, hemoglobin 13.1 grams/deciliter, hematocrit 41.1%, platelets 202k, 3 flat troponins, serology negative for influenza A, B, RSV and SARS-CoV-2 * 11/01/[address] = She has a 2.7 cm hepatic lesion. No evidence of pulmonary embolus, aortic dissection, or aortic aneurysm. Significant worsening of patchy airspace consolidation and interstitial thickening overload, compatible significant worsening of pneumonia. Central right upper lobe airspace opacity with cavitary or cystic change is again present, which could reflect underlying neoplastic disease or treated disease versus pneumonia. Severe emphysema. Since she was last admitted, she had a PFT & 6MW; * 10/21/24 PFT; severe obstructive abnormality, no change after albuterol; increased RV consistent with hyperinflation from an obstructive abnormality. The diffusing capacity unadjusted for hemoglobin and carboxyhemoglobin is severely decreased and remains severely decreased when adjusted for alveolar volume. In comparison to previous pulmonary function testing on 12/14/2019 there has been a greater than anticipated time dependent decrease in the FVC, FEV1 and diffusing capacity. There has been a greater than anticipated time dependent increase in the functional residual capacity and residual volume with no significant change in the total lung capacity. Clinical correlation is recommended. * 10/21/24 6MW; patient did not require supplemental oxygen at rest, require 2 L with exertion. = = = = = = = = = = = HISTORY = = = = = = = = = = = HISTORY = = = = = = = = = = = 10/27/24 phone call, Dr Newman spoke with the patient. We reviewed her CT scan results, PFT results and 6 minute walk test results. I informed her that she needs no oxygen at rest and 2 L with activity, her PFTs show a severe obstructive abnormality which is worse since 12/14/[address] scan shows worsening right upper lobe mass consistent with atelectasis, mucus or pneumonia. She continues to smoke 10-15 cigarettes a day. I have told her her disease is continuing to progress and that is absolutely necessary for her to quit. She will try to use nicotine patches and behavior modification. She does not wish for Chantix. Patient has 2-3 days of feeling hot and cold, increased mucus production worsening shortness of breath. She is not wheezing. She has no in known exposures to COVID or other sick people. the patient just finished Flagyl and Levaquin about 09/14/2024. The patient has responded to azithromycin in the past And I prescribed a Z-Pasquale. I told the patient to call us if she did not clinically improve. She voiced understanding. 10/21/24; Chest CT without Contrast: Clinical Indication: COPD Technique: Contiguous sections were acquired throughout the chest without intravenous contrast. Dose reduction technique was used on this scan by utilizing automated exposure control and iterative reconstruction technique. The dose-length product (DLP) was 140.62 mGy-cm. COMPARISON: 08/31/2024 Findings: There is no evidence of any significant mediastinal, hilar or axillary lymphadenopathy. There are extensive atherosclerotic calcifications of the aorta and coronary arteries. There is no evidence of pleural or pericardial effusion. Chronic biapical scarring and calcification noted. There is severe emphysema. Irregular consolidation with cystic or cavitary change in the right upper lobe is probably minimally increased in extent from prior exam. Images through the upper abdomen reveal no abnormalities. Impression: Irregular right upper lobe consolidation with cystic or cavitary changes, mildly increased in extent from prior exam. This is compatible with persistent and mildly worsening pneumonia. Underlying neoplastic disease not completely excluded. Severe emphysema stable biapical scarring and pleural calcification the lung apices. 10/21/24: This is a pulmonary function test with pre and post-bronchodilator spirometry, plethysmography and diffusing capacity. The test was performed and results interpreted in accordance with the 2019 and 2005 ATS/ERS Task Force guidelines respectively using the Global Lung Function Initiative-2012 reference equations. Patient demonstrated good effort and cooperation. Reproducibility criteria were met. The quality of the pre bronchodilator spirometry maneuver was Grade A and post bronchodilator spirometry maneuver was Grade A. Of note, patient was very lethargic during the testing and had to wake herself up numerous times. Findings: Spirometry: There is decreased maximal expiratory airflow at all lung volumes with concave expiratory flow tracing. The contour the inspiratory flow tracing is normal. The pre bronchodilator FVC is 2.53 L, 81% predicted. The pre bronchodilator FEV1 is 0.85 L, 36% predicted. The pre bronchodilator FEV1: FVC ratio is 34%. The post bronchodilator FVC is 2.46 L, representing a 3% decrease. The post bronchodilator FEV1 is 0.88 L, representing a 4% increase. The post bronchodilator FEV1: FVC ratio is 36%. Plethysmography: The total lung capacity is 6.36 L, 116% predicted. The functional residual capacity is 5.05 L, 160% predicted. The residual volume is 3.75 L, 159% predicted. The residual volume: Total lung capacity ratio is 59%. Diffusing capacity: The diffusing capacity unadjusted for hemoglobin and carboxyhemoglobin is 4.2, 19% predicted. The diffusing capacity adjusted for alveolar volume is 1.23, 30% predicted. In comparison to previous pulmonary function testing on 12/14/2019 the post bronchodilator FVC has decreased from 3.45 L to 2.46 L. The post bronchodilator FEV1 is decreased from 1.69 L to 0.88 L. The total lung capacity is unchanged from 6.05 L to 6.36 L. The functional residual capacity is increased from 3.94 L to 5.05 L. The residual volume has increased from 2.92 L to 3.75 L. The diffusing capacity unadjusted for hemoglobin and carboxyhemoglobin is decreased from 6.7 to 4.2. The diffusing capacity adjusted for alveolar volume has decreased from 1.50 to 1.23. Impression: There is a severe obstructive abnormality. There is no significant improvement after inhaling a single dose of albuterol. The increase in residual volume to total lung volume ratio is consistent with hyperinflation from an obstructive abnormality. The diffusing capacity unadjusted for hemoglobin and carboxyhemoglobin is severely decreased and remains severely decreased when adjusted for alveolar volume. In comparison to previous pulmonary function testing on 12/14/2019 there has been a greater than anticipated time dependent decrease in the FVC, FEV1 and diffusing capacity. There has been a greater than anticipated time dependent increase in the functional residual capacity and residual volume with no significant change in the total lung capacity. Clinical correlation is recommended. 10/21/24: This is a 6 minute walk test. The test was performed and interpreted in accordance with the 2014 ERS/ATS task force guidelines. Of note, patient use 2 liters/minute with activity and used a walker for stability Findings: The patient's resting room air oxygen saturation measured by pulse oximetry was 96%, the heart rate was 94 bpm, and the modified Naomi dyspnea score was 0. Patient ambulated using 2 L nasal cannula for 244 meters and oxygen saturation remained 92 to 93%. At the end of the study the heart rate was 100 bpm and the modified Naomi dyspnea score was 2. The patient did not have desaturations at rest on room air and did not have desaturations with ambulation on 2 L nasal cannula.. There are no prior studies for comparison. Collectively this demonstrates she has a severe obstructive abnormality consistent with GOLD grade 3 COPD, with hyperinflation and a severely decreased DLCO and compared to 12/14/2019 there has been significant decrease in the FVC, FEV1 and diffusing capacity with a significant increase in the functional residual capacity and residual volume all consistent with worsening COPD. The patient continues to smoke. The patient needs no oxygen at rest, 2 L with activity. 10/21/[address] scan of the chest from 12/08/2023, 08/02/2024, 08/31/2024 and 10/21/2024 with the radiologist. she has worsening right upper lobe low-attenuation lung nodule consistent with atelectasis, mucous retention or pneumonia in area was previous severe panlobular emphysema. Given the appearance and I rapidity of these changes it is very unlikely that this is cancer. I called the patient to discuss these results with her and left a voice message for her to call the clinic. 10/06/2024: This is the 1st pulmonary clinic encounter following inpatient hospital consultation for COPD with hypercarbic respiratory failure discharged on BiPAP. 69-year-old with a history of hypertension, hyperlipidemia, SVT, the esophageal ring status post dilation, chronic sinusitis, GOLD grade 2 group E COPD on home oxygen and NIV. Patient admitted to [facility] from 08/31/2024 through 09/07/2024 for COPD and pneumonia with hypercarbic respiratory failure. ABG on 08/02/2024 of 7.45/60/128 on 2 L nasal cannula and a blood gas on 09/06/2023 of 7.34/71/ 63 on 2 L nasal cannula. Patient was treated for COPD and pneumonia with Levaquin, Flagyl, DuoNebs and guaifenesin. For her hypercarbic respiratory failure she had [facility] insurance and was approved for BiPAP no rate, IPAP 9, EPAP 4 in 2 L bleed in. This provided adequate oxygenation by overnight oximetry and ABG at the end of the night of 7.40/52/64. She was discharged on Levaquin for 7 days, Flagyl for 5 days, Stiolto Respimat and rescue albuterol. She was to continue guaifenesin 600 p.o. b.i.d., Cornet flutter valve and home O2 assessment demonstrated she required 2 L at rest and 2 L with activity. Plan was for follow-up in the Pulmonary Clinic in 4 weeks for compliance check and to reassess her for CT scan to follow her right upper lobe infiltrate. 09/20/2024: EGD esophagitis was normal. Nonobstructing ring with dilatation. 09/29/2024: PCP office visit note. 2 L nasal cannula saturation 93%. Weight 90 lb. Respiratory medicines include guaifenesin 600 mg p.o. q.12 hours. Albuterol inhaler p.r.n., albuterol nebulizer p.r.n., Stiolto Respimat, Flonase nasal spray 1 b.i.d. p.r.n. Today she tells me that She has had no hospitalizations or exacerbations since discharge on 09/07/2024. Overall the patient has done good. For the last week she has felt well and back close to her normal. She says she is breathing at 95% back to her normal and she is walking more. She says 1 year ago she could walk 4 blocks. Before she got sick she could walk 2 blocks and since leaving the hospital she has gotten stronger and can now walk 1 block. Her appetite has improved and she has gained 1 lb at home. Her weight today is 88.5. The patient is using Stiolto Respimat at 2 puffs q.a.m., rescue albuterol inhaler 1 time a day. Rescue albuterol nebulizer 1 time a day. Guaifenesin 1200 mg p.o. b.i.d.. Flonase 1 spray each nostril once a day. Claritin p.r.n.. She says her sinuses are controlled. as prescribed, the patient is wearing 2 L at oxygen at rest with saturations 92%. The patient is using 2 L with activity with saturations ranging 66-90%. She is using 2 L bleed in at night. The patient continues to smoke and she smoked 5 cigarettes yesterday. she has quit previously and tells me she will quit again. She has nicotine patches at home and will use ease. The patient is taking THC gummies. Patient's CAT score today is 19. The patient is wearing her BiPAP with an over the mouth under the nose mask with 2 L bleed in. the patient tells me she wore the mask more faithfully and said that this did help her during the day and she felt as if she could take deeper breaths. She has had some family stressors and has not worn the machine over the last week or so. Download from [employer], and [facility], 09/04/2024 through 10/03/2024: BiPAP no rate. Inspiratory pressure 9, expiratory pressure 4. Total usage days 53%. Usage days greater than or equal to 4 hours was 40%. Average usage on days used 5 hours and 25 minutes. AHI 0.5. Apnea index 0.4, hypopnea index 0.1. Central apnea index 0.1. Median leak 0.6. Ninety-fifth percentile leak 10.9. Maximal leak 35.8. Median tidal volume 446. Median respiratory rate 17. Median minute ventilation 7.7. I interpret this download as poor compliance, adequate pressures and low leak. Of note, no usage after 09/26/2024. DATA: 09/07/2024: Home O2 assessment: Rest room air saturation 86%. Rest nasal cannula 1 L saturation 88%. Rest nasal cannula 2 L saturation 91%. Exercise nasal cannula 2 L saturation 90%. Patient requires 2 L with rest and 2 L with activity. 09/07/24: Patient wore her home BiPAP no rate, IPAP 9, EPAP 4 and 2 L bleed in with an over the mouth under the nose mask. She said she wore the mask for 6-1/2 hours and slept well and feels refreshed this morning. Overnight oximetry on these settings with recording duration of 6 hours and 52 minutes, average saturation 92%. Low saturation 87%. Time with saturation less than or equal to 88% was 3 minutes. Oxygen desaturation index 0.6. Patient had ABG at the end of the night on these settings with a pH of 7.40/52/64. 08/31/24: EXAMINATION: CTA chest PE protocol DATE: 08/31/2024 11:02 INDICATION: Shortness of breath TECHNIQUE: Computed tomography (CT) pulmonary angiogram of the chest was performed with 100 mL Omnipaque-350 intravenous contrast. Additional 3D reconstructions utilizing coronal maximum intensity projection (MIP) were performed. Automated exposure control and iterative reconstruction technique were employed. The dose-length product was 151.66 mGy-cm. COMPARISON: 08/02/2024 and 12/08/2023 FINDINGS: No pulmonary embolism. Severe emphysema with chronic partially calcified by apical pleural-parenchymal scarring. There is been some progression of low-attenuation fluid/mucus within several of the cystic airspace in the right upper lobe which are new since 12/08/2023 consistent with pneumonia. Unchanged chronic reticulonodular opacities with a few small calcified nodules in the basilar right middle lobe and lingula consistent with sequela of chronic pneumonia. No pleural effusion. Heart size is normal. Atherosclerotic coronary artery calcific lesion. No pericardial effusion. Thoracic aorta is normal in caliber. No pathologically enlarged thoracic lymphadenopathy. 1 cm cyst and 13 x 5 x 3 mm nonobstructing stone at the upper pole the left kidney. There is scattered cortical scarring in the right kidney consistent with sequela of prior infection or infarction. Additional 2 mm nonobstructing stone at the lower pole of the right kidney. Mild thoracic spondylosis with chronic minimal anterior wedging of a few mid and lower thoracic vertebral bodies. Spinal stimulator leads which terminate at the posterior central canal at the level of T6-T7. IMPRESSION: 1. No pulmonary embolism. 2. Severe emphysema with right upper lobe pneumonia. 3. Bilateral nonobstructing nephrolithiasis. --------- 10/27/2022 EXAMINATION: CT lung screening INDICATION: Personal history of nicotine dependence, current smoker with 50 pack year history COMPARISON: 10/25/2021 FINDINGS: There is severe emphysema. There is a stable 5 mm nodule of the left upper lobe. There is stable 3 mm nodule of the right upper lobe. The lungs are free of acute opacities. No pleural effusion or pneumothorax. There is scarring and calcification of the lung apices. Calcified coronary artery atherosclerosis is noted. No pathologically enlarged thoracic lymph nodes are identified. The heart size is normal. There is mild thoracic spondylosis. IMPRESSION: 1. Lung-RADS category 2: Benign appearance or behavior. Continue annual screening with noncontrast low-dose chest CT in 12 months. 12/19/2019 PULMONARY FUNCTION TESTS Results are reliable and reproducible. Spirometry: FEV1 is 60%, moderately decreased, 1.49 L. FVC is 90% normal. Decreased FEV1% consistent with airflow obstruction. . There is a 14% increase in FEV1 with bronchodilator, 200 ml, which is significant. Lung volumes: Total lung capacity 107% normal. RV/TLC increased 48% and consistent with air trapping. Airway resistance increased 336%. Diffusion: DLCO moderately reduced 35%. Flow volume loop: Scooping of the expiratory limb. IMPRESSION: Moderate obstructive ventilatory impairment with good response to bronchodilator, air trapping, moderate diffusion impairment. This is consistent with COPD. 11/23/2019: Alpha 1 anti trypsin genotype MM. Alpha 1 anti trypsin level 160, normal. Review of Systems Review of Systems: No leg swelling, no GI complaints, no travel, no sick contacts. All systems reviewed & are unremarkable except as noted in HPI and below PMFSH Past Medical History Medical History (Updated 11/02/24 @ 13:14 by Melissa Tracey MD) Raynaud disease OSWALD (iron deficiency anemia) Osteopenia Liana esophagitis RLS (restless legs syndrome) Esophageal dilatation Chronic narcotic use On home O2 Chronic sinusitis Dysphagia Olecranon bursitis, left elbow PSVT (paroxysmal supraventricular tachycardia) Change in bowel habits Kidney stones Fibromyalgia Rheumatoid arthritis Arthritis Constipation IBS (irritable bowel syndrome) GERD (gastroesophageal reflux disease) Stomach ulcer Wears glasses Ventricular ectopics Lumbar radiculopathy Family history of colon cancer Adenomatous colon polyp Esophageal stricture Urge incontinence ILD (interstitial lung disease) Small amount of interstitial lung disease was seen on base of lungs on chest CT 03/25/2018 which was an abdomen and pelvis CT Essential hypertension Oxygen dependent 2L w/activity, 1 w/rest Collagen vascular disease Hyperlipidemia, unspecified Infectious colitis Mass in neck Thrush Anxiety 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, patient unsure of this diagnosis COPD (chronic obstructive pulmonary disease) Tobacco abuse Surgical History Surgical History History of partial hysterectomy Status post insertion of spinal cord stimulator History of bladder suspension procedure History of appendectomy History of lumbar surgery Spinal cord stimulator implanted 05/23/21 Family History Family History Mother Patient's mother is , Onset Age: 72 Sibling Carcinoma of colon Ovarian cancer Lung cancer Rectal cancer Family history of malignant neoplasm of breast in first degree relative Father Brain aneurysm Cerebrovascular accident, Onset Age: 54 Other Arthritis COPD (chronic obstructive pulmonary disease) High cholesterol Hypertension Lung disease Neuropathy Social History Social History Social History: caffeine-coffee/soda Smoking packs per day: 1 Smoking cigarettes per day: 20.0 Years smoked: 60 Smoking pack-years: 60.00 Smoking status: Current every day smoker Second hand tobacco smoke exposure: Yes Additional smoking assessment comments: Using Nicotine patches AT TIMES Alcohol intake: never Substance use: unknown Substance use type: does not use Do You Feel Safe in your Home?: Yes Lack of Transportation: No Lack of Food: Never True Current Housing: I Have Housing Concerned About Future Housing: No Difficulty Paying Gas/Electric Bills: No Difficulty Paying for Meds: No Currently Unemployed: No Education: High School Diploma/GED Difficulty w/ Childcare or Family Care: No Living arrangements: alone Occupation/Education: retired Gender identity (if verbalized by the patient): Female Spiritual care concerns: No Meds Home Medications and Allergies Home Medications ?Medication ?Instructions ?Recorded ?Confirmed ?Type aspirin 81 mg tablet,delayed 81 mg PO DAILY 06/02/19 11/01/24 History release (Adult Aspirin Regimen) cyclobenzaprine 5 mg tablet 5 mg PO Q12H 01/05/20 11/01/24 History oxycodone myristate 13.5 mg 13.5 mg PO Q12H 11/19/21 11/01/24 History capsule sprinkle extend release 12hr(DON'T CRUSH) (Xtampza ER) solifenacin 10 mg tablet (Vesicare) 5 mg PO HS 02/04/23 11/01/24 History cholecalciferol (vitamin D3) 125 125 mcg PO DAILY 07/24/23 11/01/24 History mcg (5,000 unit) tablet (Vitamin D3) guaifenesin 600 mg tablet, 1,200 mg PO Q12H 07/24/23 11/01/24 History extended release 12 hr (Mucinex) loratadine 10 mg tablet 10 mg PO DAILY 07/24/23 11/01/24 History metoprolol succinate 25 mg See Rx Instructions .Route 10/28/23 11/01/24 Rx tablet,extended release 24 hr .COMPLEX #90 tabs albuterol sulfate 90 mcg/actuation See Rx Instructions .Route 03/15/24 11/01/24 History aerosol inhaler .COMPLEX PRN Shortness Of Breath Or Wheezing omeprazole 40 mg capsule,delayed 40 mg PO DAILY #90 caps 06/02/24 11/01/24 Rx release albuterol sulfate 2.5 mg/3 mL 2.5 mg (3 mL) inhalation Q4-6H PRN 06/07/24 11/01/24 Rx (0.083 %) solution for nebulization shortness of breath or wheezing #180 mL tiotropium 2.5 mcg-olodaterol 2.5 See Rx Instructions .Route 06/20/24 11/01/24 Rx mcg/actuation mist for inhalation .COMPLEX #4 grams (Stiolto Respimat) fluticasone propionate 50 1 spray intranasal BID PRN nasal 07/11/24 11/01/24 Rx mcg/actuation nasal congestion #16 grams spray,suspension (Flonase Allergy Relief) lovastatin 40 mg tablet 40 mg PO HS 08/02/24 11/01/24 History gabapentin 300 mg capsule 300 mg PO Q12H #180 caps 08/29/24 11/01/24 Rx ferrous sulfate 325 mg (65 mg See Rx Instructions .Route 10/17/24 11/01/24 Rx iron) tablet (FeroSul) .COMPLEX #30 tabs Allergies Allergy/AdvReac Type Severity Reaction Status Date / Time Penicillins Allergy Severe Anaphylaxis Verified 09/29/24 10:00 meperidine Allergy Intermediate Itching Verified 09/29/24 10:00 sulfamethoxazole (From Allergy Intermediate Mouth Verified 09/29/24 10:00 Bactrim) burning/redness trimethoprim (From Bactrim) Allergy Intermediate Mouth Verified 09/29/24 10:00 burning/redness mirtazapine AdvReac Mild Headache Verified 09/29/24 10:00 Vital Signs Vital Signs - 24 hr 11/01/24 05:26 11/01/24 05:26 11/01/24 05:30 Temperature 36.7 C Pulse Rate 101 H 101 H Respiratory Rate 22 H 19 Blood Pressure 140/59 L 140/59 L Pulse Oximetry 99 100 100 Oxygen Delivery Nasal Cannula Nasal Cannula Oxygen Flow Rate 2 2 11/01/24 06:12 11/01/24 06:15 11/01/24 06:16 Temperature Pulse Rate 96 93 96 Respiratory Rate 23 H 23 H 20 Blood Pressure 126/67 Pulse Oximetry 100 100 100 Oxygen Delivery Oxygen Flow Rate 11/01/24 06:25 11/01/24 06:30 11/01/24 06:31 Temperature Pulse Rate 99 93 100 Respiratory Rate 25 H 24 H 21 H Blood Pressure 127/61 Pulse Oximetry Oxygen Delivery Oxygen Flow Rate 11/01/24 06:45 11/01/24 06:46 11/01/24 07:09 Temperature Pulse Rate 104 H 98 104 H Respiratory Rate 22 H 23 H 23 H Blood Pressure 132/65 Pulse Oximetry 100 99 Oxygen Delivery Oxygen Flow Rate 11/01/24 07:31 11/01/24 07:32 11/01/24 07:45 Temperature Pulse Rate 102 H 102 H 103 H Respiratory Rate 25 H 18 21 H Blood Pressure 123/62 Pulse Oximetry Oxygen Delivery Oxygen Flow Rate 11/01/24 07:46 11/01/24 08:00 11/01/24 08:01 Temperature Pulse Rate 106 H 109 H 107 H Respiratory Rate 24 H 21 H 18 Blood Pressure 136/53 L 124/62 Pulse Oximetry Oxygen Delivery Oxygen Flow Rate 11/01/24 08:15 11/01/24 08:16 11/01/24 08:30 Temperature Pulse Rate 106 H 105 H 95 Respiratory Rate 18 20 23 H Blood Pressure 126/54 L Pulse Oximetry Oxygen Delivery Oxygen Flow Rate 11/01/24 08:31 11/01/24 09:40 11/01/24 10:30 Temperature 36.3 C L Pulse Rate 95 102 H Respiratory Rate 25 H 18 20 Blood Pressure 122/57 L 125/67 Pulse Oximetry 99 99 Oxygen Delivery Nasal Cannula Oxygen Flow Rate 3 11/01/24 13:31 Temperature 36.4 C L Pulse Rate 114 H Respiratory Rate 18 Blood Pressure 123/56 L Pulse Oximetry 99 Oxygen Delivery Oxygen Flow Rate Exam Narrative: GEN: Alert, oriented, not in distress. Pleasant, she has a harsh nonproductive cough. HEENT: pupils are equal, EOMI, symmetrical face; oral membranes moist, upper and lower dentures, Mallampati II airway, tacky mucois membnranes NECK: Trachea is midline CHEST: Equal air entry, symmetric excursion, decreased breath sounds CV: Regular S1S2 no m/g/r ABD : (+) bowel sounds, soft Extremities : She has thickened skin on her palms, her nails are curved at tips without overt clubbing. No pitting. Hands are slightly cool. She tells me that when she touches cold food, fingers get icy cold, she has pain. She has a typical appearance of Raynaud's. No edema. PSYCH: normal thought and speech, gait is not tested. Results Laboratory Findings 11/02/24 06:01 11/02/24 06:01 ABG, PT/INR, D-dimer: PT/INR, D-dimer D-Dimer 1.62 ug/mL (<0.48) H 11/01/24 05:23 Abnormal lab findings: Abnormal Labs 11/01/24 11/01/24 05:23 05:24 MCHC 31.9 L Neut % (Auto) 76.6 H Lymph % (Auto) 12.4 L Lymph # (Auto) 0.89 L D-Dimer 1.62 H Sodium 136 L Carbon Dioxide 33 H Creatinine 0.52 L Glucose 111 H AST 37 H
--- NOTE | 2024-11-01 17:28 | PCRCNOTE ---
Family brought in home CPAP unit. Patient signed waiver/consent. Water brought to patients room.
[2024-11-01 18:11] LABS: CRP 17.8 mg/dL (<1.0)
[2024-11-01 18:28] LABS: Carcinoembryonic Antigen 8.7 ng/mL (0.0-3.0)
[2024-11-01] MEDS: oxyCODONE HCL (*CRX) 5 MG TAB IR PO (18:31)
[2024-11-01] MEDS: SENNA/DOCUSATE SODIUM TABLET 2 TAB PO (18:35)
[2024-11-01] MEDS: CYCLOBENZAPRINE HCL 5 MG TABLET PO (20:53)
[2024-11-01] MEDS: LOVASTATIN 20 MG TABLET 40 MG PO (20:53)
[2024-11-01] MEDS: GABAPENTIN 300 MG CAPSULE PO (20:53)
[2024-11-01] MEDS: SOLIFENACIN 5 MG TABLET PO (20:53)
[2024-11-01] MEDS: guaiFENesin 12 HR 600 MG TABCR 1200 MG PO (20:53)
[2024-11-02] VITALS (9 sets, daily range): BP systolic 127–150; BP diastolic 59–65; PULSE 94–101; RESP 18–20; TEMP 36.3–37.3; O2SAT 92–99; BMI 13.6
[2024-11-02] MEDS: SODIUM CHLOR 3% 15 ML NEB (RESPIRATORY THERAPY) 6 ML INHALATION (04:29)
[2024-11-02] MEDS: oxyCODONE HCL (*CRX) 5 MG TAB IR PO ×3 (05:01→21:47)
[2024-11-02 06:40] LABS: Hematocrit 37.5 % (37.0-47.0); Hemoglobin 12.0 g/dL (12.0-15.0); Immature Granulocyte Percent A 0.4 % (0-0.5); Lymphocytes Absolute Auto 0.32 K/mm3 (0.9-3.2); Mean Corpuscular HGB Conc 32.0 g/dl (32-36); Mean Corpuscular Hemoglobin 30.7 pg (26-34); Mean Corpuscular Volume 95.9 fl (80-100); Nucleated Red Blood Cells Absolute Auto 0.000 K/mm3 (0.0-0.012); Nucleated Red Blood Cells Perc 0.0 % (0.0-0.2); Platelet Count Result 213 k/mm3 (150-375); Red Blood Count 3.91 M/mm3 (4.2-5.4); White Blood Count 6.7 K/mm3 (4.5-10.0)
[2024-11-02 06:57] LABS: Alanine Aminotransferase 21 U/L (6-35); Albumin Level 3.8 g/dL (3.5-5.1); Alkaline Phosphatase 74 U/L (38-126); Anion Gap 8 mmol/L (4-12); Aspartate Amino Transferase 26 U/L (14-36); Bilirubin,Total 0.4 mg/dL (0.2-1.3); Blood Urea Nitrogen 15 mg/dL (7-17); Calcium 9.4 mg/dL (8.4-10.2); Carbon Dioxide 32 mmol/L (22-30); Chloride 99 mmol/L (98-107); Estimated CRCL calculation 49 ml/min; Estimated Glomerular Filt Rate > 60; Glucose 156 mg/dL (65-110); Magnesium 2.3 mg/dL (1.6-2.3); Potassium 4.7 mmol/L (3.4-5.0); Sodium 139 mmol/L (137-145); Total Protein 7.6 g/dL (6.3-8.2)
[2024-11-02] MEDS: AZITHROMYCIN 500 MG/NS 250 ML 500 MG/250 ML BAG 250 MG IVPB (08:32)
[2024-11-02] MEDS: METOPROLOL SUCCINATE EXT REL 25 MG TABCR BY MOUTH (08:35)
[2024-11-02] MEDS: LORATADINE 10 MG TABLET PO (08:36)
[2024-11-02] MEDS: CHOLECALCIFEROL (VITAMIN D3) 125 MCG (5,000 UNITS) TABLET PO (08:36)
[2024-11-02] MEDS: FERROUS SULFATE 325 MG TABLET DR BY MOUTH (08:36)
[2024-11-02] MEDS: GABAPENTIN 300 MG CAPSULE PO ×2 (08:36→21:33)
[2024-11-02] MEDS: guaiFENesin 12 HR 600 MG TABCR 1200 MG PO ×2 (08:36→21:33)
[2024-11-02] MEDS: CYCLOBENZAPRINE HCL 5 MG TABLET PO ×2 (08:36→21:34)
[2024-11-02] MEDS: PANTOPRAZOLE 40 MG TABLET PO ×2 (08:36→21:41)
[2024-11-02] MEDS: UMECLIDINIUM/VILANTEROL 62.5-25 MCG ELLIPTA 1 PUFF INHALATION (08:45)
--- NOTE | 2024-11-02 09:00 | P.PNIM_ITS ---
Progress Note: A&P Assessment and Plan (1) Depression with anxiety: Code(s): F41.8 - Other specified anxiety disorders Status: Acute (2) Essential hypertension: Code(s): I10 - Essential (primary) hypertension Status: Chronic (3) Hyperlipidemia, unspecified: Qualifiers: Hyperlipidemia type: unspecified Qualified Code(s): E78.5 - Hyperlipidemia, unspecified Code(s): E78.5 - Hyperlipidemia, unspecified Status: Acute (4) Prediabetes: Code(s): R73.03 - Prediabetes Status: Acute (5) Vitamin D deficiency: Code(s): E55.9 - Vitamin D deficiency, unspecified Status: Acute (6) B12 deficiency: Code(s): E53.8 - Deficiency of other specified B group vitamins Status: Acute (7) Severe protein-calorie malnutrition: Code(s): E43 - Unspecified severe protein-calorie malnutrition Status: Acute (8) Gastroesophageal reflux disease without esophagitis: Code(s): K21.9 - Gastro-esophageal reflux disease without esophagitis Status: Acute (9) Esophageal stricture: Code(s): K22.2 - Esophageal obstruction Status: Acute (10) Adenomatous colon polyp: Code(s): D12.6 - Benign neoplasm of colon, unspecified Status: Acute (11) Peripheral neuropathy: Qualifiers: Peripheral neuropathy type: idiopathic neuropathy, unspecified Q ualified Code(s): G60.9 - Hereditary and idiopathic neuropathy, unspecified Code(s): G62.9 - Polyneuropathy, unspecified Status: Acute (12) RLS (restless legs syndrome): Code(s): G25.81 - Restless legs syndrome Status: Acute (13) Right upper lobe pneumonia: Code(s): J18.9 - Pneumonia, unspecified organism Status: Acute (14) Chronic respiratory failure with hypoxia: Code(s): J96.11 - Chronic respiratory failure with hypoxia Status: Acute (15) ILD (interstitial lung disease): Code(s): J84.9 - Interstitial pulmonary disease, unspecified Status: Acute (16) Oxygen dependent: Code(s): Z99.81 - Dependence on supplemental oxygen Status: Acute (17) Recurrent pneumonia: Code(s): J18.9 - Pneumonia, unspecified organism Status: Acute (18) Tobacco abuse: Code(s): Z72.0 - Tobacco use Status: Acute Plan Right upper lobe pneumonia recurrent pneumonia on right upper lobe with persistent consultation since August 02, 2024 which is new since 12/08/2023. Treated with multiple rounds of antibiotics. Recent was treated with Levaquin and Flagyl. Started on ceftriaxone and azithromycin. These opacities seem worsened over time with significant cavitation and scarring. pulmonary team on board. 2.7 cm enhancing hepatic lesion will get ultrasound right upper quadrant. US: segment 4/5 of the liver for which malignancy is suspected Elevated CEA consult oncology waiting for biopsy COPD exacerbation Chronic respiratory failure with hypoxia and hypercapnia BiPAP at night solumedrol Rocephin and azithromycin home inhalers follow culture results pulm team on board Tobacco abuse History of esophageal stricture status post EGD and dilatation Severe calorie malnutrition Hypertension Hyperlipidemia Paroxysmal SVT on beta-valeriano Iron deficiency anemia Restless leg syndrome Fibromyalgia Rheumatoid arthritis RA factor was elevated at 22.4 MICKI screen was negative will check anti CCP Irritable bowel syndrome GERD Interstitial lung disease Anxiety depression DVT prophylaxis Code status full code Subjective Date/time seen: 11/02/24 09:00 Interval history: per HPI: This is a 69-year-old female who presents to the ED with shortness of breath and right upper chest pain. She also reports cough which has been ongoing since past few days. It she has underlying COPD continues to smoke. She has been on oxygen 2 L via nasal cannula lactic chronically. No hemoptysis. Does not report any fever or chills. 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 The ED her vitals were stable mild tachycardia oxygen saturation adequate on 2 L oxygen via nasal cannula. Laboratory studies showed WBC 7.2 hemoglobin 13.1 platelet count 202. Sodium 136 potassium 4 chloride 98 BUN 14 creatinine 0.53 bicarbonate 33 blood glucose 111. D-dimer elevated at 1.62. Troponin is negative less than 0.012. Influenza RSV COVID swab was negative. Chest x-ray showed suspected right upper lobe pneumonia with associated underlying chronic scarring with COPD changes. She underwent chest CTA which showed no evidence of PE aortic dissection or aortic aneurysm. Significant worsening of patchy airspace consolidation and interstitial thickening overload compatible with significant worsening of pneumonia. Central right upper lobe airspace opacity with cavitary are cystic changes again present which could reflect underlying neoplastic disease or treated disease versus pneumonia. Severe emphysema was noted. EKG with normal sinus rhythm with nonspecific ST-T changes. She was given ceftriaxone and azithromycin in the ER and is admitted for further treatment. 11/02/24 patient was seen and examined at bedside. denies chest pain, abd pain, N/V. breathing is better. discussed about liver mass found on the CT. plan for biopsy. continue Solumedrol, IV Abx for pneumonia vs COPD exacerbation. Review of Systems 2 Review of Systems: - CONSTITUTIONAL: Denies weight loss, fe nika and chills. - HEENT: Denies changes in vision and he aring - RESPIRATORY: Reports SOB and cough. - CV: Denies palpitations and reports CP . - GI: Denies abdominal pain, nausea, vom iting and diarrhea. - : Denies dysuria and urinary frequen cy. - MSK: Denies myalgia and joint pain. - SKIN: Denies rash and pruritus. - NEUROLOGICAL: Denies headache and sync ope. - PSYCHIATRIC: Denies recent changes in mood. Denies anxiety and depression. Exam 2 Narrative: GEN: Alert, oriented, not in distress. Pleasant, she has a harsh nonproductive cough. HEENT: pupils are equal, EOMI, symmetrical face; oral membranes moist, upper and lower dentures, Mallampati II airway, tacky mucois membnranes NECK: Trachea is midline CHEST: Equal air entry, symmetric excursion, decreased breath sounds CV: Regular S1S2 no m/g/r ABD : (+) bowel sounds, soft Extremities : She has thickened skin on her palms, her nails are curved at tips without overt clubbing. No pitting. Hands are slightly cool. She tells me that when she touches cold food, fingers get icy cold, she has pain. She has a typical appearance of Raynaud's. No edema. PSYCH: normal thought and speech, gait is not tested. Objective Data Vital Signs Vital Signs: Vital Signs - 24 hr 11/01/24 09:40 11/01/24 10:30 11/01/24 13:31 Temperature 97.3 F L 97.5 F L Pulse Rate 102 H 114 H Respiratory Rate 18 20 18 Blood Pressure 125/67 123/56 L Pulse Oximetry 99 99 99 Oxygen Delivery Nasal Cannula Oxygen Flow Rate 3 11/01/24 20:00 11/01/24 20:08 11/01/24 21:00 Temperature 97.6 F Pulse Rate 89 89 Respiratory Rate 16 16 Blood Pressure 136/57 L Pulse Oximetry 97 97 97 Oxygen Delivery Nasal Cannula Nasal Cannula Oxygen Flow Rate 3 2 11/02/24 04:30 11/02/24 04:45 11/02/24 05:06 Temperature 97.4 F L Pulse Rate 101 H 97 101 H Respiratory Rate 20 20 20 Blood Pressure 150/64 H Pulse Oximetry 99 Oxygen Delivery Oxygen Flow Rate 11/02/24 08:35 11/02/24 08:47 11/02/24 08:47 Temperature Pulse Rate 94 101 H Respiratory Rate 20 Blood Pressure Pulse Oximetry 94 Oxygen Delivery Nasal Cannula Oxygen Flow Rate 2 Intake/Output Intake/Output: Intake & Output 10/30/24 10/31/24 11/01/24 11/02/24 23:59 23:59 23:59 23:59 Intake Total 380 Output Total 0 Balance 380 0 Meds/Results Medications: Active Medications Generic Name Dose Route Start Last Admin Trade Name Freq PRN Reason Stop Dose Admin Acetaminophen 650 mg 11/01/24 08:23 Acetaminophen 325 Mg Tablet PO Q4H PRN Mild Pain (1-3) or Fever Albuterol 2.5 mg 11/01/24 15:29 Albuterol Sulfate Neb 2.5 Mg/3 Ml Inh INHALATION Q4HRT PRN shortness of breath Albuterol 1 puff 11/01/24 15:29 Albuterol Sulfate (*Sp) Aerosol 1 Puff INHALATION Q4HRT PRN Wheezing Aspirin 81 mg 11/02/24 09:00 11/02/24 08:36 Aspirin 81 Mg Enteric Tablet PO Not Given DAILY ALBERTA Cyclobenzaprine HCl 5 mg 11/01/24 21:00 11/02/24 08:36 Cyclobenzaprine Hcl 5 Mg Tablet PO 5 mg Q12H ALBERTA Administration Enoxaparin Sodium 40 mg 11/03/24 09:00 Enoxaparin 40 Mg/0.4 Ml Syringe SUB-Q DAILY ALBERTA Ferrous Sulfate 325 mg 11/02/24 09:00 11/02/24 08:36 Ferrous Sulfate [address] BY MOUTH 325 mg DAILY ALBERTA Administration Fluticasone Propionate 1 spray 11/01/24 15:29 Fluticasone Propionate 0.05% Na Spr 16 Gm Btl (*Bkc) NASAL BID PRN nasal congestion Gabapentin 300 mg 11/01/24 21:00 11/02/24 08:36 Gabapentin 300 Mg Capsule PO 300 mg Q12H ALBERTA Administration Guaifenesin 1,200 mg 11/01/24 21:00 11/02/24 08:36 Guaifenesin 12 Hr 600 Mg Tabcr PO 1,200 mg Q12H ALBERTA Administration Ceftriaxone Sodium 1 gm in 50 mls @ 100 mls/hr 11/02/24 06:00 11/02/24 05:03 Rocephin 1 Gm/Ns 50 Ml IVPB 100 mls/hr Q24H ALBERTA Administration Azithromycin 500 mg in 250 mls @ 250 mls/hr 11/02/24 07:00 11/02/24 08:32 Zithromax IVPB 250 mls/hr Q24H ALBERTA Administration Loratadine 10 mg 11/02/24 09:00 11/02/24 08:36 Loratadine 10 Mg Tablet PO 10 mg DAILY ALBERTA Administration Lovastatin 40 mg 11/01/24 21:00 11/01/24 20:53 Lovastatin 20 Mg Tablet PO 40 mg HS ALBERTA Administration Methylprednisolone Sodium Succinate 40 mg 11/01/24 15:30 11/02/24 08:32 Methylprednisolone Sod Succ 40 Mg Vial IV PUSH 40 mg DAILY ALBERTA Administration Metoprolol Succinate 25 mg 11/02/24 09:00 11/02/24 08:35 Metoprolol Succinate Ext Rel 25 Mg Tabcr BY MOUTH 25 mg DAILY ALBERTA Administration Miscellaneous Information 1 each 11/01/24 00:01 11/01/24 18:36 Albuterol Nebs And Mdi Home Meds Have Duplicate Prn Indications. Please Clarify XX 12/01/24 00:00 1 each CLARIFY ALBERTA Administration Ondansetron HCl 4 mg 11/01/24 08:23 Ondansetron Inj 4 Mg/2 Ml Vial IV PUSH Q4H PRN Nausea Oxycodone HCl 5 mg 11/01/24 18:01 11/02/24 05:01 Oxycodone Hcl (*Crx) 5 Mg Tab Ir PO 5 mg Q6H PRN Administration Pain 7-10 Pantoprazole Sodium 40 mg 11/02/24 09:00 11/02/24 08:36 Pantoprazole 40 Mg Tablet PO 40 mg Q12HR ALBERTA Administration Senna/Docusate Sodium 2 tab 11/01/24 18:01 11/01/24 18:35 Senna/Docusate Sodium Tablet PO 2 tab BID PRN Administration Constipation Sodium Chloride 6 ml 11/02/24 05:00 11/02/24 04:29 Sodium Chlor 3% 15 Ml Neb (Respiratory Therapy) INHALATION 11/04/24 05:01 6 ml DAILY@0500 ALBERTA Administration Solifenacin 5 mg 11/01/24 21:00 11/01/24 20:53 Solifenacin 5 Mg Tablet PO 5 mg HS ALBERTA Administration Umeclidinium/Vilanterol 1 puff 11/02/24 08:00 11/02/24 08:45 Umeclidinium/Vilanterol 62.5-25 Mcg Ellipta INHALATION 1 puff DAILYRT ALBERTA Administration Vitamin D 125 mcg 11/02/24 09:00 11/02/24 08:36 Cholecalciferol (Vitamin D3) 125 Mcg (5,000 Units) Tablet PO 125 mcg DAILY ALBERTA Administration Radiology Results: ITS Impressions Chest X-Ray 11/01/24 05:48 Impression: Suspected right upper lobe pneumonia with associated underlying chronic scarring. COPD. Chest CTA 11/01/24 08:00 Impression: No evidence of pulmonary embolus, aortic dissection, or aortic aneurysm. Significant worsening of patchy airspace consolidation and interstitial thickening overload, compatible significant worsening of pneumonia. Central right upper lobe airspace opacity with cavitary or cystic change is again present, which could reflect underlying neoplastic disease or treated disease versus pneumonia. Severe emphysema. ADDENDUM: 11/01/24 0840 2.7 cm enhancing hepatic lesion is partially imaged. Follow-up pre and postcontrast hepatic MR should be considered to better assess this lesion. Upper Quadrant Ultrasound 11/01/24 16:47 IMPRESSION: Findings within segment 4/5 of the liver for which malignancy is suspected. This focus is amenable to percutaneous biopsy. Labs Labs: Laboratory Results - last 24 hr 11/01/24 11/01/24 11/02/24 11:06 17:32 06:01 WBC 6.7 RBC 3.91 L Hgb 12.0 Hct 37.5 MCV 95.9 MCH 30.7 MCHC 32.0 RDW 11.9 Plt Count 213 MPV 9.8 Immature Gran % (Auto) 0.4 Neut % (Auto) 92.3 H Lymph % (Auto) 4.8 L [place] % (Auto) 2.4 L Eos % (Auto) 0.0 Baso % (Auto) 0.1 L Lymph # (Auto) 0.32 L [place] # (Auto) 0.2 Eos # (Auto) 0.0 Baso # (Auto) 0.0 Abs Immat Gran (auto) 0.03 Absolute Neuts (auto) 6.2 Absolute Nucleated RBC 0.000 Nucleated RBC % 0.0 ESR 140 H Sodium 139 Potassium 4.7 Chloride 99 Carbon Dioxide 32 H Anion Gap 8 BUN 15 Creatinine 0.56 L Estim Creat Clear Calc 49 Estimated GFR > 60 Glucose 156 H Calcium 9.4 Magnesium 2.3 Total Bilirubin 0.4 AST 26 ALT 21 Alkaline Phosphatase 74 Troponin I < 0.012 C-Reactive Protein 17.8 H Total Protein 7.6 Albumin 3.8 Carcinoembryonic Ag 8.7 H
[2024-11-02 10:15] LABS: INR 1.1; Prothrombin Time 14.1 Seconds (11.1-14.7)
[2024-11-02 10:16] LABS: Partial Thromboplastin Time 25.5 Seconds (22.3-36.8)
--- NOTE | 2024-11-02 17:20 | S_PTH ---
PATIENT: Melyssa Mccall LOC: [id number] U#:[id number] AGE/SX: 69/F ROOM: 310 RE11/02/[address]: Arnel Watts MD : [id number] BED: 01 DIS: 11/07/2024 SPEC #: [id number] RECD: 11/03/24 07:39 STATUS: IKER REQ #: [id number] SRI: 11/02/24 17:[address]: Vipul Correa DEPT: [facility] Surgical RECD BY: Sapna Casiano ENTERED: 11/03/24 07:39 SP TYPE: Surgical OTHR DR: MD Grace Lewis DO Barbara J. Foner, MD Anoushiravan Hakim, MD Tissues: A - Liver Biopsy Procedures: Unstained Slides Hematoxylin and Eosin Stain Reticulum Stain Trichrome Stain Gross and Microscopic Level 5 CD 10 CK 20 CK 7 Hepatocyte
--- NOTE | 2024-11-02 17:27 | P.PNPL_ITS ---
Progress Note: A&P Assessment and Plan (1) Acute on chronic respiratory failure: Qualifiers: Respiratory failure complication: hypoxia and hypercapnia Qualified Code(s): J96.21 - Acute and chronic respiratory failure with hypoxia; J96.22 - Acute and chronic respiratory failure with hypercapnia Code(s): J96.20 - Acute and chronic respiratory failure, unspecified whether with hypoxia or hypercapnia Status: Acute Assessment and Plan: She is only only requires oxygen 2 L with exertion and with sleep, this admission required oxygen at rest 2-3 liters/minute. This is due to her acute illness. She has had hypercapnia dating back to 07/07/2019, her highest pCO2 on a blood gas was this past September,September 05, 2024 with a pCO2 of 70.7. She uses oxygen at home 2 L a minute at night. Will wean her oxygen as tolerated and perform a home oxygen evaluation prior to her discharge.She is on 2 L today, saturation 94-97%. (2) Cavitary lesion of lung: Code(s): J98.4 - Other disorders of lung Status: Acute Assessment and Plan: She has had an evolving right upper lobe scar/density over the last several CT scans now with a cavity. I looked at her CT scans from August 31 2024, CTA, October 21 and November 01. The overall lesion is larger and more cavitary. The differential includes malignancy, fungal, non tuberculous and tuberculous mycobacteria, autoimmune, she has Raynaud's an a diagnosis of RA which can cause cavitary lung nodules. In general these resolved on their own without treatment. The patient has been treated for pneumonia multiple times in the last few months. She had liver biopsy today, and if this result is hepatocellular carcinoma, we could do out patient PET scan, or consider further evaluation fo the RUL cavitatory lesion. Would be unlikely to have 2 new primaries, liver & lung; may be a primary of either organ with mets to the other. (3) ILD (interstitial lung disease): Code(s): J84.9 - Interstitial pulmonary disease, unspecified Status: Acute Assessment and Plan: She has had evidence of interstitial lung disease dating back to at least 2018 and she has rheumatoid arthritis so her ILD is related to her autoimmune condition. She has Raynaud phenomenon fingertips associated with RA. (4) History of tobacco abuse: Code(s): Z87.891 - Personal history of nicotine dependence Status: Acute Assessment and Plan: She continues to smoke, smoked 2 days prior to admission. Tobacco cessation was strongly stressed, and of course she can not smoke while she is in the hospital. We discussed tobacco cessation today. Is necessary for her survival. She has recurrent admissions and decompensations that are difficult to manage, jeffery with on-going smoking tobacco. Start Nicotine patches 14 mg tomorrow am November 03. (5) Right upper lobe pneumonia: Qualifiers: Pneumonia type: due to unspecified organism Qualified Code(s): J18.9 - Pneumonia, unspecified organism Code(s): J18.9 - Pneumonia, unspecified organism Status: Acute Assessment and Plan: Recurrent pneumonias, several recent admission. * 09/01/24 modified barium swallow; Trace penetration without aspiration. (6) Pulmonary cachexia due to chronic obstructive pulmonary disease: Code(s): R64 - Cachexia; J44.9 - Chronic obstructive pulmonary disease, unspecified Status: Acute Assessment and Plan: She has pulmonary cachexia due to chronic obstructive pulmonary disease as well as interstitial lung disease. Her smoking also though is increasing her metabolic rate, contributing to her unintentional weight loss. I talked with her about tobacco cessation as a means to help her maintain her body weight. She may benefit from supplemental protein drinks. Plan plan: Start Nicotine patch 14 mg daily tomorrow am. She was in hospital 10 days last time, did not need patch and did not smoke; We talked about how smoking is complex, and getting used to wearing patch while she is here may help her transition to using it at home and she may be able to use Nicotine replacement Therapy to aid in not smoking after discharge, Continue treatment for COPD, empiric antibiotics. I sent a QuantiFERON gold with her cavitary lesion to r/o TB/non tuberculous mycobacteria; she does not really have enough sputum to submit. She has never grown any mycobacteria. Without sputum to submit we are not going to be able to recover fungus, AFB or any other pathogen. We may consider an extended spectrum respiratory panel at some point. Protein supplementation added today. Subjective Date/time seen: 11/02/24 17:27 Interval history: November 01, 2024; new consult; Melyssa Mccall is a 69-year old woman followed in our practice most recent visit was 10/06/2024, she has recurrent pneumonias, hypertension, hyperlipidemia, SVT, the esophageal ring status post dilation, chronic sinusitis, COPD on home oxygen, chronic hypercapnic hypoxemic respiratory failure. She was in the hospital August 31 through September 07, has been on Levaquin and other antibiotics as an outpatient recently; she saw Dr. Newman in follow-up on October 06 and afterwards had a PFT showing a severe obstructive abnormality, hyperinflation severely decreased diffusion. Her 6 minute walk showed that she did not require supplemental oxygen at rest she does require 2 L a minute with exertion. She says that at home she felt like she just could not catch her breath. She was sweating, coughing and with each intense cough, she had pain initially in the right posterior chest and then it wraps around to the right anterior chest. She cannot expectorate her secretions very easily. Her last cigarette was 2 days prior to admission. She complains of crusting in her nose and scant bleeding from the nose. This may be due to nasal cannula O2. She does not have hemoptysis. She has lost from 137 lb to 90 lb over the last 3 years. She has diffuse aches and pains. She has had no GI symptoms, nose specific sinus complaints, no sore throat or earache. Her saturation on admission is 99% on 2 liters/minute. November 02, 2024; She had the liver biopsy, ready to eat, she feels better, less coughing. She is interested in quitting smoking, and agreed to a nicotine patch. Now on 2 L, sat is 94-97%. DATA * sodium 136, potassium 4.0, chloride 98, carbon dioxide 33, BUN 14, , creatinine 0.52, glucose 111k, white blood cell count 7.2 k with 76% awga, hemoglobin 13.1 grams/deciliter, hematocrit 41.1%, platelets 202k, 3 flat troponins, serology negative for influenza A, B, RSV and SARS-CoV-2 * 11/01/[address] = She has a 2.7 cm hepatic lesion. No evidence of pulmonary embolus, aortic dissection, or aortic aneurysm. Significant worsening of patchy airspace consolidation and interstitial thickening overload, compatible significant worsening of pneumonia. Central right upper lobe airspace opacity with cavitary or cystic change is again present, which could reflect underlying neoplastic disease or treated disease versus pneumonia. Severe emphysema. document embedded image Since she was last admitted, she had a PFT & 6MW; * 10/21/24 PFT; severe obstructive abnormality, no change after albuterol; increased RV consistent with hyperinflation from an obstructive abnormality. The diffusing capacity unadjusted for hemoglobin and carboxyhemoglobin is severely decreased and remains severely decreased when adjusted for alveolar volume. In comparison to previous pulmonary function testing on 12/14/2019 there has been a greater than anticipated time dependent decrease in the FVC, FEV1 and diffusing capacity. There has been a greater than anticipated time dependent increase in the functional residual capacity and residual volume with no significant change in the total lung capacity. Clinical correlation is recommended. * 10/21/24 6MW; patient did not require supplemental oxygen at rest, require 2 L with exertion. = = = = = = = = = = = HISTORY = = = = = = = = = = = HISTORY = = = = = = = = = = = 10/27/24 phone call, Dr Newman spoke with the patient. We reviewed her CT scan results, PFT results and 6 minute walk test results. I informed her that she needs no oxygen at rest and 2 L with activity, her PFTs show a severe obstructive abnormality which is worse since 12/14/[address] scan shows worsening right upper lobe mass consistent with atelectasis, mucus or pneumonia. She continues to smoke 10-15 cigarettes a day. I have told her her disease is continuing to progress and that is absolutely necessary for her to quit. She will try to use nicotine patches and behavior modification. She does not wish for Chantix. Patient has 2-3 days of feeling hot and cold, increased mucus production worsening shortness of breath. She is not wheezing. She has no in known exposures to COVID or other sick people. the patient just finished Flagyl and Levaquin about 09/14/2024. The patient has responded to azithromycin in the past And I prescribed a Z-Pasquale. I told the patient to call us if she did not clinically improve. She voiced understan rukhsana. 10/21/24; Chest CT without Contrast: Clinical Indication: COPD Technique: Contiguous sections were acquired throughout the chest without intravenous contrast. Dose reduction technique was used on this scan by utilizing automated exposure control and iterative reconstruction technique. The dose-length product (DLP) was 140.62 mGy-cm. COMPARISON: 08/31/2024 Findings: There is no evidence of any significant mediastinal, hilar or axillary lymphadenopathy. There are extensive atherosclerotic calcifications of the aorta and coronary arteries. There is no evidence of pleural or pericardial effusion. Chronic biapical scarring and calcification noted. There is severe emphysema. Irregular consolidation with cystic or cavitary change in the right upper lobe is probably minimally increased in extent from prior exam. Images through the upper abdomen reveal no abnormalities. Impression: Irregular right upper lobe consolidation with cystic or cavitary changes, mildly increased in extent from prior exam. This is compatible with persistent and mildly worsening pneumonia. Underlying neoplastic disease not completely excluded. Severe emphysema stable biapical scarring and pleural calcification the lung apices. 10/21/24: This is a pulmonary function test with pre and post-bronchodilator spirometry, plethysmography and diffusing capacity. The test was performed and results interpreted in accordance with the 2019 and 2005 ATS/ERS Task Force guidelines respectively using the Global Lung Function Initiative-2012 reference equations. Patient demonstrated good effort and cooperation. Reproducibility criteria were met. The quality of the pre bronchodilator spirometry maneuver was Grade A and post bronchodilator spirometry maneuver was Grade A. Of note, patient was very lethargic during the testing and had to wake herself up numerous times. Findings: Spirometry: There is decreased maximal expiratory airflow at all lung volumes with concave expiratory flow tracing. The contour the inspiratory flow tracing is normal. The pre bronchodilator FVC is 2.53 L, 81% predicted. The pre bronchodilator FEV1 is 0.85 L, 36% predicted. The pre bronchodilator FEV1: FVC ratio is 34%. The post bronchodilator FVC is 2.46 L, representing a 3% decrease. The post bronchodilator FEV1 is 0.88 L, representing a 4% increase. The post bronchodilator FEV1: FVC ratio is 36%. Plethysmography: The total lung capacity is 6.36 L, 116% predicted. The functional residual capacity is 5.05 L, 160% predicted. The residual volume is 3.75 L, 159% predicted. The residual volume: Total lung capacity ratio is 59%. Diffusing capacity: The diffusing capacity unadjusted for hemoglobin and carboxyhemoglobin is 4.2, 19% predicted. The diffusing capacity adjusted for alveolar volume is 1.23, 30% predicted. In comparison to previous pulmonary function testing on 12/14/2019 the post bronchodilator FVC has decreased from 3.45 L to 2.46 L. The post bronchodilator FEV1 is decreased from 1.69 L to 0.88 L. The total lung capacity is unchanged from 6.05 L to 6.36 L. The functional residual capacity is increased from 3.94 L to 5.05 L. The residual volume has increased from 2.92 L to 3.75 L. The diffusing capacity unadjusted for hemoglobin and carboxyhemoglobin is decreased from 6.7 to 4.2. The diffusing capacity adjusted for alveolar volume has decreased from 1.50 to 1.23. Impression: There is a severe obstructive abnormality. There is no significant improvement after inhaling a single dose of albuterol. The increase in residual volume to total lung volume ratio is consistent with hyperinflation from an obstructive abnormality. The diffusing capacity unadjusted for hemoglobin and carboxyhemoglobin is severely decreased and remains severely decreased when adjusted for alveolar volume. In comparison to previous pulmonary function testing on 12/14/2019 there has been a greater than anticipated time dependent decrease in the FVC, FEV1 and diffusing capacity. There has been a greater than anticipated time dependent increase in the functional residual capacity and residual volume with no significant change in the total lung capacity. Clinical correlation is recommended. 10/21/24: This is a 6 minute walk test. The test was performed and interpreted in accordance with the 2014 ERS/ATS task force guidelines. Of note, patient use 2 liters/minute with activity and used a walker for stability Findings: The patient's resting room air oxygen saturation measured by pulse oximetry was 96%, the heart rate was 94 bpm, and the modified Naomi dyspnea score was 0. Patient ambulated using 2 L nasal cannula for 244 meters and oxygen saturation remained 92 to 93%. At the end of the study the heart rate was 100 bpm and the modified Naomi dyspnea score was 2. The patient did not have desaturations at rest on room air and did not have desaturations with ambulation on 2 L nasal cannula.. There are no prior studies for comparison. Collectively this demonstrates she has a severe obstructive abnormality consistent with GOLD grade 3 COPD, with hyperinflation and a severely decreased DLCO and compared to 12/14/2019 there has been significant decrease in the FVC, FEV1 and diffusing capacity with a significant increase in the functional residual capacity and residual volume all consistent with worsening COPD. The patient continues to smoke. The patient needs no oxygen at rest, 2 L with activity. 10/21/[address] scan of the chest from 12/08/2023, 08/02/2024, 08/31/2024 and 10/21/2024 with the radiologist. she has worsening right upper lobe low-attenuation lung nodule consistent with atelectasis, mucous retention or pneumonia in area was previous severe panlobular emphysema. Given the appearance and I rapidity of these changes it is very unlikely that this is cancer. I called the patient to discuss these results with her and left a voice message for her to call the clinic. 10/06/2024: This is the 1st pulmonary clinic encounter following inpatient hospital consultation for COPD with hypercarbic respiratory failure discharged on BiPAP. 69-year-old with a history of hypertension, hyperlipidemia, SVT, the esophageal ring status post dilation, chronic sinusitis, GOLD grade 2 group E COPD on home oxygen and NIV. Patient admitted to [facility] from 08/31/2024 through 09/07/2024 for COPD and pneumonia with hypercarbic respiratory failure. ABG on 08/02/2024 of 7.45/60/128 on 2 L nasal cannula and a blood gas on 09/06/2023 of 7.34/71/ 63 on 2 L nasal cannula. Patient was treated for COPD and pneumonia with Levaquin, Flagyl, DuoNebs and guaifenesin. For her hypercarbic respiratory failure she had [facility] insurance and was approved for BiPAP no rate, IPAP 9, EPAP 4 in 2 L bleed in. This provided adequate oxygenation by overnight oximetry and ABG at the end of the night of 7.40/52/64. She was discharged on Levaquin for 7 days, Flagyl for 5 days, Stiolto Respimat and rescue albuterol. She was to continue guaifenesin 600 p.o. b.i.d., Cornet flutter valve and home O2 assessment demonstrated she required 2 L at rest and 2 L with activity. Plan was for follow-up in the Pulmonary Clinic in 4 weeks for compliance check and to reassess her for CT scan to follow her right upper lobe infiltrate. 09/20/2024: EGD esophagitis was normal. Nonobstructing ring with dilatation. 09/29/2024: PCP office visit note. 2 L nasal cannula saturation 93%. Weight 90 lb. Respiratory medicines include guaifenesin 600 mg p.o. q.12 hours. Albuterol inhaler p.r.n., albuterol nebulizer p.r.n., Stiolto Respimat, Flonase nasal spray 1 b.i.d. p.r.n. Today she tells me that She has had no hospitalizations or exacerbations since discharge on 09/07/2024. Overall the patient has done good. For the last week she has felt well and back close to her normal. She says she is breathing at 95% back to her normal and she is walking more. She says 1 year ago she could walk 4 blocks. Before she got sick she could walk 2 blocks and since leaving the hospital she has gotten stronger and can now walk 1 block. Her appetite has improved and she has gained 1 lb at home. Her weight today is 88.5. The patient is using Stiolto Respimat at 2 puffs q.a.m., rescue albuterol inhaler 1 time a day. Rescue albuterol nebulizer 1 time a day. Guaifenesin 1200 mg p.o. b.i.d.. Flonase 1 spray each nostril once a day. Claritin p.r.n.. She says her sinuses are controlled. as prescribed, the patient is wearing 2 L at oxygen at rest with saturations 92%. The patient is using 2 L with activity with saturations ranging 66-90%. She is using 2 L bleed in at night. The patient continues to smoke and she smoked 5 cigarettes yesterday. she has quit previously and tells me she will quit again. She has nicotine patches at home and will use ease. The patient is taking THC gummies. Patient's CAT score today is 19. The patient is wearing her BiPAP with an over the mouth under the nose mask with 2 L bleed in. the patient tells me she wore the mask more faithfully and said that this did help her during the day and she felt as if she could take deeper breaths. She has had some family stressors and has not worn the machine over the last week or so. Download from [employer], and [employer], 09/04/2024 through 10/03/2024: BiPAP no rate. Inspiratory pressure 9, expiratory pressure 4. Total usage days 53%. Usage days greater than or equal to 4 hours was 40%. Average usage on days used 5 hours and 25 minutes. AHI 0.5. Apnea index 0.4, hypopnea index 0.1. Central apnea index 0.1. Median leak 0.6. Ninety-fifth percentile leak 10.9. Maximal leak 35.8. Median tidal volume 446. Median respiratory rate 17. Median minute ventilation 7.7. I interpret this download as poor compliance, adequate pressures and low leak. Of note, no usage after 09/26/2024. DATA: 09/07/2024: Home O2 assessment: Rest room air saturation 86%. Rest nasal cannula 1 L saturation 88%. Rest nasal cannula 2 L saturation 91%. Exercise nasal cannula 2 L saturation 90%. Patient requires 2 L with rest and 2 L with activity. 09/07/24: Patient wore her home BiPAP no rate, IPAP 9, EPAP 4 and 2 L bleed in with an over the mouth under the nose mask. She said she wore the mask for 6-1/2 hours and slept well and feels refreshed this morning. Overnight oximetry on these settings with recording duration of 6 hours and 52 minutes, average saturation 92%. Low saturation 87%. Time with saturation less than or equal to 88% was 3 minutes. Oxygen desaturation index 0.6. Patient had ABG at the end of the night on these settings with a pH of 7.40/52/64. 08/31/24: EXAMINATION: CTA chest PE protocol DATE: 08/31/2024 11:02 INDICATION: Shortness of breath TECHNIQUE: Computed tomography (CT) pulmonary angiogram of the chest was performed with 100 mL Omnipaque-350 intravenous contrast. Additional 3D reconstructions utilizing coronal maximum intensity projection (MIP) were performed. Automated exposure control and iterative reconstruction technique were employed. The dose-length product was 151.66 mGy-cm. COMPARISON: 08/02/2024 and 12/08/2023 FINDINGS: No pulmonary embolism. Severe emphysema with chronic partially calcified by apical pleural-parenchymal scarring. There is been some progression of low- attenuation fluid/mucus within several of the cystic airspace in the right upper lobe which are new since 12/08/2023 consistent with pneumonia. Unchanged chronic reticulonodular opacities with a few small calcified nodules in the basilar right middle lobe and lingula consistent with sequela of chronic pneumonia. No pleural effusion. Heart size is normal. Atherosclerotic coronary artery calcific lesion. No pericardial effusion. Thoracic aorta is normal in caliber. No pathologically enlarged thoracic lymphadenopathy. 1 cm cyst and 13 x 5 x 3 mm nonobstructing stone at the upper pole the left kidney. There is scattered cortical scarring in the right kidney consistent with sequela of prior infection or infarction. Additional 2 mm nonobstructing stone at the lower pole of the right kidney. Mild thoracic spondylosis with chronic minimal anterior wedging of a few mid and lower thoracic vertebral bodies. Spinal stimulator leads which terminate at the posterior central canal at the level of T6-T7. IMPRESSION: 1. No pulmonary embolism. 2. Severe emphysema with right upper lobe pneumonia. 3. Bilateral nonobstructing nephrolithiasis. --------- 10/27/2022 EXAMINATION: CT lung screening INDICATION: Personal history of nicotine dependence, current smoker with 50 pack year history COMPARISON: 10/25/2021 FINDINGS: There is severe emphysema. There is a stable 5 mm nodule of the left upper lobe. There is stable 3 mm nodule of the right upper lobe. The lungs are free of acute opacities. No pleural effusion or pneumothorax. There is scarring and calcification of the lung apices. Calcified coronary artery atherosclerosis is noted. No pathologically enlarged thoracic lymph nodes are identified. The heart size is normal. There is mild thoracic spondylosis. IMPRESSION: 1. Lung-RADS category 2: Benign appearance or behavior. Continue annual screening with noncontrast low-dose chest CT in 12 months. 12/19/2019 PULMONARY FUNCTION TESTS Results are reliable and reproducible. Spirometry: FEV1 is 60%, moderately decreased, 1.49 L. FVC is 90% normal. Decreased FEV1% consistent with airflow obstruction. . There is a 14% increase in FEV1 with bronchodilator, 200 ml, which is significant. Lung volumes: Total lung capacity 107% normal. RV/TLC increased 48% and consistent with air trapping. Airway resistance increased 336%. Diffusion: DLCO moderately reduced 35%. Flow volume loop: Scooping of the expiratory limb. IMPRESSION: Moderate obstructive ventilatory impairment with good response to bronchodilator, air trapping, moderate diffusion impairment. This is consistent with COPD. 11/23/2019: Alpha 1 anti trypsin genotype MM. Alpha 1 anti trypsin level 160, n ormal. Review of Systems Review of Systems: No leg swelling, no GI complaints, no travel, no sick contacts. All systems reviewed & are unremarkable except as noted in HPI and below Review of Systems Review of Systems: All systems reviewed & are unremarkable except as noted in HPI and below Exam Narrative: GEN: Alert, oriented, not in distress. Pleasant, cough is better. HEENT: pupils are equal, EOMI, symmetrical face; oral membranes moist, upper and lower dentures, Mallampati II airway, tacky mucous membranes NECK: Trachea is midline CHEST: Equal air entry, symmetric excursion, decreased breath sounds CV: Regular S1S2 no m/g/r ABD : (+) bowel sounds, soft Extremities : She has thickened skin on her palms, her nails are curved at tips without overt clubbing. No pitting. Hands are slightly cool. She tells me that when she touches cold food, fingers get icy cold, she has pain. She has a typical appearance of Raynaud's. No edema. PSYCH: normal thought and speech, gait is not tested. Objective Data Vital Signs Vital Signs: Vital Signs - 24 hr 11/01/24 20:00 11/01/24 20:08 11/01/24 21:00 Temperature 36.4 C Pulse Rate 89 89 Respiratory Rate 16 16 Blood Pressure 136/57 L Pulse Oximetry 97 97 97 Oxygen Delivery Nasal Cannula Nasal Cannula Oxygen Flow Rate 3 2 11/02/24 04:30 11/02/24 04:45 11/02/24 05:06 Temperature 36.3 C L Pulse Rate 101 H 97 101 H Respiratory Rate 20 20 20 Blood Pressure 150/64 H Pulse Oximetry 99 Oxygen Delivery Oxygen Flow Rate 11/02/24 08:00 11/02/24 08:35 11/02/24 08:47 Temperature Pulse Rate 94 Respiratory Rate Blood Pressure Pulse Oximetry 94 94 Oxygen Delivery Nasal Cannula Nasal Cannula Oxygen Flow Rate 2 2 11/02/24 08:47 11/02/24 08:55 11/02/24 14:00 Temperature 37.2 C Pulse Rate 101 H 97 Respiratory Rate 20 18 Blood Pressure 128/65 Pulse Oximetry 92 Oxygen Delivery Nasal Cannula Oxygen Flow Rate 2 Intake/Output Intake/Output: Intake & Output 10/30/24 10/31/24 11/01/24 11/02/24 23:59 23:59 23:59 23:59 Intake Total 380 Output Total 0 Balance 380 0 Meds/Results Medications: Active Medications Generic Name Dose Route Start Last Admin Trade Name Freq PRN Reason Stop Dose Admin Acetaminophen 650 mg 11/01/24 08:23 Acetaminophen 325 Mg Tablet PO Q4H PRN Mild Pain (1-3) or Fever Albuterol 2.5 mg 11/01/24 15:29 Albuterol Sulfate Neb 2.5 Mg/3 Ml Inh INHALATION Q4HRT PRN shortness of breath Albuterol 1 puff 11/01/24 15:29 Albuterol Sulfate (*Sp) Aerosol 1 Puff INHALATION Q4HRT PRN Wheezing Aspirin 81 mg 11/02/24 09:00 11/02/24 08:36 Aspirin 81 Mg Enteric Tablet PO Not Given DAILY [facility] Cyclobenzaprine HCl 5 mg 11/01/24 21:00 11/02/24 08:36 Cyclobenzaprine Hcl 5 Mg Tablet PO 5 mg Q12H [facility] Administration Enoxaparin Sodium 40 mg 11/03/24 09:00 Enoxaparin 40 Mg/0.4 Ml Syringe SUB-Q DAILY [facility] Ferrous Sulfate 325 mg 11/02/24 09:00 11/02/24 08:36 Ferrous Sulfate [address] BY MOUTH 325 mg DAILY [facility]BERTA Administration Fluticasone Propionate 1 spray 11/01/24 15:29 Fluticasone Propionate 0.05% Na Spr 16 Gm Btl (*Bkc) NASAL BID PRN nasal congestion Gabapentin 300 mg 11/01/24 21:00 11/02/24 08:36 Gabapentin 300 Mg Capsule PO 300 mg Q12H [facility]A Administration Guaifenesin 1,200 mg 11/01/24 21:00 11/02/24 08:36 Guaifenesin 12 Hr 600 Mg Tabcr PO 1,200 mg Q12H [facility]A Administration Ceftriaxone Sodium 1 gm in 50 mls @ 100 mls/hr 11/02/24 06:00 11/02/24 05:03 Rocephin 1 Gm/Ns 50 Ml IVPB 100 mls/hr Q24H [facility] Administration Azithromycin 500 mg in 250 mls @ 250 mls/hr 11/02/24 07:00 11/02/24 08:32 Zithromax IVPB 250 mls/hr Q24H [facility] Administration Loratadine 10 mg 11/02/24 09:00 11/02/24 08:36 Loratadine 10 Mg Tablet PO 10 mg DAILY [facility] Administration Lovastatin 40 mg 11/01/24 21:00 11/01/24 20:53 Lovastatin 20 Mg Tablet PO 40 mg HS [facility] Administration Methylprednisolone Sodium Succinate 40 mg 11/01/24 15:30 11/02/24 08:32 Methylprednisolone Sod Succ 40 Mg Vial IV PUSH 40 mg DAILY [facility] Administration Metoprolol Succinate 25 mg 11/02/24 09:00 11/02/24 08:35 Metoprolol Succinate Ext Rel 25 Mg Tabcr BY MOUTH 25 mg DAILY [facility] Administration Miscellaneous Information 1 each 11/01/24 00:01 11/01/24 18:36 Albuterol Nebs And Mdi Home Meds Have Duplicate Prn Indications. Please Clarify XX 12/01/24 00:00 1 each CLARIFY ALBERTA Administration Ondansetron HCl 4 mg 11/01/24 08:23 Ondansetron Inj 4 Mg/2 Ml Vial IV PUSH Q4H PRN Nausea Oxycodone HCl 5 mg 11/01/24 18:01 11/02/24 14:35 Oxycodone Hcl (*Crx) 5 Mg Tab Ir PO 5 mg Q6H PRN Administration Pain 7-10 Pantoprazole Sodium 40 mg 11/02/24 09:00 11/02/24 08:36 Pantoprazole 40 Mg Tablet PO 40 mg Q12HR [facility] Administration Senna/Docusate Sodium 2 tab 11/01/24 18:01 11/01/24 18:35 Senna/Docusate Sodium Tablet PO 2 tab BID PRN Administration Constipation Sodium Chloride 6 ml 11/02/24 05:00 11/02/24 04:29 Sodium Chlor 3% 15 Ml Neb (Respiratory Therapy) INHALATION 11/04/24 05:01 6 ml DAILY@0500 [facility] Administration Solifenacin 5 mg 11/01/24 21:00 11/01/24 20:53 Solifenacin 5 Mg Tablet PO 5 mg HS [facility]A Administration Umeclidinium/Vilanterol 1 puff 11/02/24 08:00 11/02/24 08:45 Umeclidinium/Vilanterol 62.5-25 Mcg Ellipta INHALATION 1 puff DAILYRT [facility] Administration Vitamin D 125 mcg 11/02/24 09:00 11/02/24 08:36 Cholecalciferol (Vitamin D3) 125 Mcg (5,000 Units) Tablet PO 125 mcg DAILY [facility] Administration Radiology Results: ITS Impressions Chest X-Ray 11/01/24 05:48 Impression: Suspected right upper lobe pneumonia with associated underlying chronic scarring. COPD. Chest CTA 11/01/24 08:00 Impression: No evidence of pulmonary embolus, aortic dissection, or aortic aneurysm. Significant worsening of patchy airspace consolidation and interstitial thickening overload, compatible significant worsening of pneumonia. Central right upper lobe airspace opacity with cavitary or cystic change is again present, which could reflect underlying neoplastic disease or treated disease versus pneumonia. Severe emphysema. ADDENDUM: 11/01/24 0840 2.7 cm enhancing hepatic lesion is partially imaged. Follow-up pre and postcontrast hepatic MR should be considered to better assess this lesion. Upper Quadrant Ultrasound 11/01/24 16:47 IMPRESSION: Findings within segment 4/5 of the liver for which malignancy is suspected. This focus is amenable to percutaneous biopsy. Labs Labs: Laboratory Results - last 24 hr 11/01/24 11/02/24 11/02/24 17:32 06:01 09:48 WBC 6.7 RBC 3.91 L Hgb 12.0 Hct 37.5 MCV 95.9 MCH 30.7 MCHC 32.0 RDW 11.9 Plt Count 213 MPV 9.8 Immature Gran % (Auto) 0.4 Neut % (Auto) 92.3 H Lymph % (Auto) 4.8 L Kent % (Auto) 2.4 L Eos % (Auto) 0.0 Baso % (Auto) 0.1 L Lymph # (Auto) 0.32 L Kent # (Auto) 0.2 Eos # (Auto) 0.0 Baso # (Auto) 0.0 Abs Immat Gran (auto) 0.03 Absolute Neuts (auto) 6.2 Absolute Nucleated RBC 0.000 Nucleated RBC % 0.0 ESR 140 H PT 14.1 INR 1.1 APTT 25.5 Sodium 139 Potassium 4.7 Chloride 99 Carbon Dioxide 32 H Anion Gap 8 BUN 15 Creatinine 0.56 L Estim Creat Clear Calc 49 Estimated GFR > 60 Glucose 156 H Calcium 9.4 Magnesium 2.3 Total Bilirubin 0.4 AST 26 ALT 21 Alkaline Phosphatase 74 C-Reactive Protein 17.8 H Total Protein 7.6 Albumin 3.8 Carcinoembryonic Ag 8.7 H
[2024-11-02] MEDS: NICOTINE (*PBKC) 14 MG PATCH 1 PATCH TRANSDERM (18:41)
[2024-11-02] MEDS: SENNA/DOCUSATE SODIUM TABLET 2 TAB PO (18:42)
[2024-11-02] MEDS: SOLIFENACIN 5 MG TABLET PO (21:33)
[2024-11-02] MEDS: LOVASTATIN 20 MG TABLET 40 MG PO (21:34)
[2024-11-03] VITALS (10 sets, daily range): BP systolic 99–130; BP diastolic 50–86; PULSE 72–108; RESP 14–20; TEMP 36.4–36.8; O2SAT 97–100
[2024-11-03] MEDS: SODIUM CHLOR 3% 15 ML NEB (RESPIRATORY THERAPY) 6 ML INHALATION (05:25)
[2024-11-03] MEDS: AZITHROMYCIN 500 MG/NS 250 ML 500 MG/250 ML BAG 250 MG IVPB (06:16)
[2024-11-03 07:00] LABS: Hematocrit 34.7 % (37.0-47.0); Hemoglobin 11.0 g/dL (12.0-15.0); Mean Corpuscular HGB Conc 31.7 g/dl (32-36); Mean Corpuscular Hemoglobin 30.6 pg (26-34); Mean Corpuscular Volume 96.4 fl (80-100); Platelet Count Result 222 k/mm3 (150-375); Red Blood Count 3.60 M/mm3 (4.2-5.4); White Blood Count 8.2 K/mm3 (4.5-10.0)
[2024-11-03 07:09] LABS: Alanine Aminotransferase 19 U/L (6-35); Albumin Level 3.6 g/dL (3.5-5.1); Alkaline Phosphatase 79 U/L (38-126); Anion Gap 7 mmol/L (4-12); Aspartate Amino Transferase 25 U/L (14-36); Bilirubin,Total 0.2 mg/dL (0.2-1.3); Blood Urea Nitrogen 22 mg/dL (7-17); Calcium 9.2 mg/dL (8.4-10.2); Carbon Dioxide 33 mmol/L (22-30); Chloride 98 mmol/L (98-107); Estimated CRCL calculation 40 ml/min; Estimated Glomerular Filt Rate > 60; Glucose 122 mg/dL (65-110); Potassium 4.2 mmol/L (3.4-5.0); Sodium 138 mmol/L (137-145); Total Protein 6.9 g/dL (6.3-8.2)
[2024-11-03] MEDS: UMECLIDINIUM/VILANTEROL 62.5-25 MCG ELLIPTA 1 PUFF INHALATION (07:55)
[2024-11-03] MEDS: oxyCODONE HCL (*CRX) 5 MG TAB IR PO ×3 (08:55→22:35)
[2024-11-03] MEDS: ENOXAPARIN 40 MG/0.4 ML SYRINGE SUB-Q (09:10)
[2024-11-03] MEDS: GABAPENTIN 300 MG CAPSULE PO ×2 (09:10→22:36)
[2024-11-03] MEDS: FERROUS SULFATE 325 MG TABLET DR BY MOUTH (09:10)
[2024-11-03] MEDS: ASPIRIN 81 MG ENTERIC TABLET PO (09:10)
[2024-11-03] MEDS: CYCLOBENZAPRINE HCL 5 MG TABLET PO ×2 (09:10→22:36)
[2024-11-03] MEDS: NICOTINE (*PBKC) 14 MG PATCH 1 PATCH TRANSDERM (09:10)
[2024-11-03] MEDS: METOPROLOL SUCCINATE EXT REL 25 MG TABCR BY MOUTH (09:10)
[2024-11-03] MEDS: CHOLECALCIFEROL (VITAMIN D3) 125 MCG (5,000 UNITS) TABLET PO (09:10)
[2024-11-03] MEDS: LORATADINE 10 MG TABLET PO (09:10)
[2024-11-03] MEDS: guaiFENesin 12 HR 600 MG TABCR 1200 MG PO ×2 (09:10→22:36)
[2024-11-03] MEDS: PANTOPRAZOLE 40 MG TABLET PO ×2 (09:10→22:36)
[2024-11-03 11:03] LABS: Alpha Fetoprotein TumorMarker. 2.1 ng/mL
--- NOTE | 2024-11-03 12:55 | P.PNIM_ITS ---
Progress Note: A&P Assessment and Plan (1) Depression with anxiety: Code(s): F41.8 - Other specified anxiety disorders Status: Acute (2) Essential hypertension: Code(s): I10 - Essential (primary) hypertension Status: Chronic (3) Hyperlipidemia, unspecified: Qualifiers: Hyperlipidemia type: unspecified Qualified Code(s): E78.5 - Hyperlipidemia, unspecified Code(s): E78.5 - Hyperlipidemia, unspecified Status: Acute (4) Prediabetes: Code(s): R73.03 - Prediabetes Status: Acute (5) Vitamin D deficiency: Code(s): E55.9 - Vitamin D deficiency, unspecified Status: Acute (6) B12 deficiency: Code(s): E53.8 - Deficiency of other specified B group vitamins Status: Acute (7) Severe protein-calorie malnutrition: Code(s): E43 - Unspecified severe protein-calorie malnutrition Status: Acute (8) Gastroesophageal reflux disease without esophagitis: Code(s): K21.9 - Gastro-esophageal reflux disease without esophagitis Status: Acute (9) Esophageal stricture: Code(s): K22.2 - Esophageal obstruction Status: Acute (10) Adenomatous colon polyp: Code(s): D12.6 - Benign neoplasm of colon, unspecified Status: Acute (11) Peripheral neuropathy: Qualifiers: Peripheral neuropathy type: idiopathic neuropathy, unspecified Q ualified Code(s): G60.9 - Hereditary and idiopathic neuropathy, unspecified Code(s): G62.9 - Polyneuropathy, unspecified Status: Acute (12) RLS (restless legs syndrome): Code(s): G25.81 - Restless legs syndrome Status: Acute (13) Right upper lobe pneumonia: Code(s): J18.9 - Pneumonia, unspecified organism Status: Acute (14) Chronic respiratory failure with hypoxia: Code(s): J96.11 - Chronic respiratory failure with hypoxia Status: Acute (15) ILD (interstitial lung disease): Code(s): J84.9 - Interstitial pulmonary disease, unspecified Status: Acute (16) Oxygen dependent: Code(s): Z99.81 - Dependence on supplemental oxygen Status: Acute (17) Recurrent pneumonia: Code(s): J18.9 - Pneumonia, unspecified organism Status: Acute (18) Tobacco abuse: Code(s): Z72.0 - Tobacco use Status: Acute Plan Right upper lobe pneumonia recurrent pneumonia on right upper lobe with persistent consultation since August 02, 2024 which is new since 12/08/2023. Treated with multiple rounds of antibiotics. Recently has been treated with Levaquin and Flagyl. on ceftriaxone and azithromycin. These opacities seem worsened over time with significant cavitation and scarring. pulmonary team on board. sputum culture and Tb tests pending 2.7 cm enhancing hepatic lesion, S/p biopsy 11/02/24. Follow pathologyreport US: segment 4/5 of the liver for which malignancy is suspected Elevated CEA consulted oncology COPD exacerbation Chronic respiratory failure with hypoxia and hypercapnia BiPAP at night solumedrol switched to prednisone Rocephin and azithromycin home inhalers follow culture results pulm team on board Tobacco abuse History of esophageal stricture status post EGD and dilatation Severe calorie malnutrition Hypertension Hyperlipidemia Paroxysmal SVT on beta-valeriano Iron deficiency anemia Restless leg syndrome Fibromyalgia Rheumatoid arthritis RA factor was elevated at 22.4 MICKI screen was negative will check anti CCP Irritable bowel syndrome GERD Interstitial lung disease Anxiety depression DVT prophylaxis Code status full code Subjective Date/time seen: 11/03/24 12:55 Interval history: per HPI: This is a 69-year-old female who presents to the ED with shortness of breath and right upper chest pain. She also reports cough which has been ongoing since past few days. It she has underlying COPD continues to smoke. She has been on oxygen 2 L via nasal cannula lactic chronically. No hemoptysis. Does not report any fever or chills. 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 The ED her vitals were stable mild tachycardia oxygen saturation adequate on 2 L oxygen via nasal cannula. Laboratory studies showed WBC 7.2 hemoglobin 13.1 platelet count 202. Sodium 136 potassium 4 chloride 98 BUN 14 creatinine 0.53 bicarbonate 33 blood glucose 111. D-dimer elevated at 1.62. Troponin is negative less than 0.012. Influenza RSV COVID swab was negative. Chest x-ray showed suspected right upper lobe pneumonia with associated underlying chronic scarring with COPD changes. She underwent chest CTA which showed no evidence of PE aortic dissection or aortic aneurysm. Significant worsening of patchy airspace consolidation and interstitial thickening overload compatible with significant worsening of pneumonia. Central right upper lobe airspace opacity with cavitary are cystic changes again present which could reflect underlying neoplastic disease or treated disease versus pneumonia. Severe emphysema was noted. EKG with normal sinus rhythm with nonspecific ST-T changes. She was given ceftriaxone and azithromycin in the ER and is admitted for further treatment. 11/02/24 patient was seen and examined at bedside. denies chest pain, abd pain, N/V. breathing is better. discussed about liver mass found on the CT. plan for biopsy. continue Solumedrol, IV Abx for pneumonia vs COPD exacerbation. 11/03/24 Patient was seen and examined at bedside. she is feeling fine,denies any chest pain SOB, abd pain,N/V. Underwent biopsy of liver mass yesterday/ CEA elevated Alpha protein pending. oncology team has been consulted. Continue Iv Abx for pneumonia. Tb test ordered by pulm team and pending. Review of Systems 2 Review of Systems: - CONSTITUTIONAL: Denies weight loss, fe nika and chills. - HEENT: Denies changes in vision and he aring - RESPIRATORY: Reports SOB and cough. - CV: Denies palpitations and reports CP . - GI: Denies abdominal pain, nausea, vom iting and diarrhea. - : Denies dysuria and urinary frequen cy. - MSK: Denies myalgia and joint pain. - SKIN: Denies rash and pruritus. - NEUROLOGICAL: Denies headache and sync ope. - PSYCHIATRIC: Denies recent changes in mood. Denies anxiety and depression. Exam 2 Narrative: GEN: Alert, oriented, not in distress. Pleasant, she has a harsh nonproductive cough. HEENT: pupils are equal, EOMI, symmetrical face; oral membranes moist, upper and lower dentures, Mallampati II airway, tacky mucois membnranes NECK: Trachea is midline CHEST: Equal air entry, symmetric excursion, decreased breath sounds CV: Regular S1S2 no m/g/r ABD : (+) bowel sounds, soft Extremities : She has thickened skin on her palms, her nails are curved at tips without overt clubbing. No pitting. Hands are slightly cool. She tells me that when she touches cold food, fingers get icy cold, she has pain. She has a typical appearance of Raynaud's. No edema. PSYCH: normal thought and speech, gait is not tested. Objective Data Vital Signs Vital Signs: Vital Signs - 24 hr 11/02/24 14:00 11/02/24 20:28 11/02/24 21:12 Temperature 99.0 F 99.2 F Pulse Rate 97 100 Respiratory Rate 18 18 Blood Pressure 128/65 127/59 L Pulse Oximetry 92 98 97 Oxygen Delivery Nasal Cannula Oxygen Flow Rate 2 11/03/24 05:24 11/03/24 05:28 11/03/24 05:40 Temperature 98.2 F Pulse Rate 95 105 H 108 H Respiratory Rate 16 20 20 Blood Pressure 99/86 L Pulse Oximetry 100 Oxygen Delivery Oxygen Flow Rate 11/03/24 07:55 11/03/24 09:30 Temperature Pulse Rate 98 Respiratory Rate Blood Pressure 130/52 L Pulse Oximetry 97 99 Oxygen Delivery Nasal Cannula Oxygen Flow Rate 2 Intake/Output Intake/Output: Intake & Output 10/31/24 11/01/24 11/02/24 11/03/24 23:59 23:59 23:59 23:59 Intake Total 380 540 720 Output Total 0 Balance 380 540 720 Meds/Results Medications: Active Medications Generic Name Dose Route Start Last Admin Trade Name Freq PRN Reason Stop Dose Admin Acetaminophen 650 mg 11/01/24 08:23 Acetaminophen 325 Mg Tablet PO Q4H PRN Mild Pain (1-3) or Fever Albuterol 2.5 mg 11/01/24 15:29 Albuterol Sulfate Neb 2.5 Mg/3 Ml Inh INHALATION Q4HRT PRN shortness of breath Albuterol 1 puff 11/01/24 15:29 Albuterol Sulfate (*Sp) Aerosol 1 Puff INHALATION Q4HRT PRN Wheezing Aspirin 81 mg 11/02/24 09:00 11/02/24 08:36 Aspirin 81 Mg Enteric Tablet PO Not Given DAILY [facility] Cyclobenzaprine HCl 5 mg 11/01/24 21:00 11/02/24 21:34 Cyclobenzaprine Hcl 5 Mg Tablet PO 5 mg Q12H [facility] Administration Enoxaparin Sodium 40 mg 11/03/24 09:00 Enoxaparin 40 Mg/0.4 Ml Syringe SUB-Q DAILY [facility] Ferrous Sulfate 325 mg 11/02/24 09:00 11/02/24 08:36 Ferrous Sulfate [address] BY MOUTH 325 mg DAILY [facility] Administration Fluticasone Propionate 1 spray 11/01/24 15:29 Fluticasone Propionate 0.05% Na Spr 16 Gm Btl (*Bkc) NASAL BID PRN nasal congestion Gabapentin 300 mg 11/01/24 21:00 11/02/24 21:33 Gabapentin 300 Mg Capsule PO 300 mg Q12H [facility]A Administration Guaifenesin 1,200 mg 11/01/24 21:00 11/02/24 21:33 Guaifenesin 12 Hr 600 Mg Tabcr PO 1,200 mg Q12H [facility]A Administration Ceftriaxone Sodium 1 gm in 50 mls @ 100 mls/hr 11/02/24 06:00 11/03/24 06:16 Rocephin 1 Gm/Ns 50 Ml IVPB Infused Q24H [facility]A Infusion Azithromycin 500 mg in 250 mls @ 250 mls/hr 11/02/24 07:00 11/03/24 06:16 Zithromax IVPB 250 mls/hr Q24H [facility] Administration Loratadine 10 mg 11/02/24 09:00 11/02/24 08:36 Loratadine 10 Mg Tablet PO 10 mg DAILY [facility] Administration Lovastatin 40 mg 11/01/24 21:00 11/02/24 21:34 Lovastatin 20 Mg Tablet PO 40 mg HS [facility]A Administration Methylprednisolone Sodium Succinate 40 mg 11/01/24 15:30 11/02/24 08:32 Methylprednisolone Sod Succ 40 Mg Vial IV PUSH 40 mg DAILY [facility] Administration Metoprolol Succinate 25 mg 11/02/24 09:00 11/02/24 08:35 Metoprolol Succinate Ext Rel 25 Mg Tabcr BY MOUTH 25 mg DAILY [facility] Administration Miscellaneous Information 1 each 11/01/24 00:01 11/01/24 18:36 Albuterol Nebs And Mdi Home Meds Have Duplicate Prn Indications. Please Clarify XX 12/01/24 00:00 1 each CLARIFY ALBERTA Administration Nicotine 1 patch 11/02/24 18:15 11/02/24 18:41 Nicotine (*Pbkc) 14 Mg Patch TRANSDERM 1 patch DAILY [facility] Administration Ondansetron HCl 4 mg 11/01/24 08:23 Ondansetron Inj 4 Mg/2 Ml Vial IV PUSH Q4H PRN Nausea Oxycodone HCl 5 mg 11/01/24 18:01 11/02/24 21:47 Oxycodone Hcl (*Crx) 5 Mg Tab Ir PO 5 mg Q6H PRN Administration Pain 7-10 Pantoprazole Sodium 40 mg 11/02/24 09:00 11/02/24 21:41 Pantoprazole 40 Mg Tablet PO 40 mg Q12HR [facility]A Administration Senna/Docusate Sodium 2 tab 11/01/24 18:01 11/02/24 18:42 Senna/Docusate Sodium Tablet PO 2 tab BID PRN Administration Constipation Sodium Chloride 6 ml 11/02/24 05:00 11/03/24 05:25 Sodium Chlor 3% 15 Ml Neb (Respiratory Therapy) INHALATION 11/04/24 05:01 6 ml DAILY@0500 [facility] Administration Solifenacin 5 mg 11/01/24 21:00 11/02/24 21:33 Solifenacin 5 Mg Tablet PO 5 mg HS [facility]A Administration Umeclidinium/Vilanterol 1 puff 11/02/24 08:00 11/03/24 07:55 Umeclidinium/Vilanterol 62.5-25 Mcg Ellipta INHALATION 1 puff DAILYRT [facility]A Administration Vitamin D 125 mcg 11/02/24 09:00 11/02/24 08:36 Cholecalciferol (Vitamin D3) 125 Mcg (5,000 Units) Tablet PO 125 mcg DAILY ALBERTA Administration Radiology Results: ITS Impressions Chest X-Ray 11/01/24 05:48 Impression: Suspected right upper lobe pneumonia with associated underlying chronic scarring. COPD. Chest CTA 11/01/24 08:00 Impression: No evidence of pulmonary embolus, aortic dissection, or aortic aneurysm. Significant worsening of patchy airspace consolidation and interstitial thickening overload, compatible significant worsening of pneumonia. Central right upper lobe airspace opacity with cavitary or cystic change is again present, which could reflect underlying neoplastic disease or treated disease versus pneumonia. Severe emphysema. ADDENDUM: 11/01/24 0840 2.7 cm enhancing hepatic lesion is partially imaged. Follow-up pre and postcontrast hepatic MR should be considered to better assess this lesion. Upper Quadrant Ultrasound 11/01/24 16:47 IMPRESSION: Findings within segment 4/5 of the liver for which malignancy is suspected. This focus is amenable to percutaneous biopsy. Liver Biopsy Ultrasound 11/02/24 18:52 IMPRESSION: 1. Technically successful ultrasound-guided core biopsy of a hyperechoic lesion within the liver. Labs Labs: Laboratory Results - last 24 hr 11/01/24 11/03/24 17:32 05:46 WBC 8.2 RBC 3.60 L Hgb 11.0 L Hct 34.7 L MCV 96.4 MCH 30.6 MCHC 31.7 L RDW 11.7 Plt Count 222 MPV 9.7 Sodium 138 Potassium 4.2 Chloride 98 Carbon Dioxide 33 H Anion Gap 7 BUN 22 H Creatinine 0.69 L Estim Creat Clear Calc 40 Estimated GFR > 60 Glucose 122 H Calcium 9.2 Total Bilirubin 0.2 AST 25 ALT 19 Alkaline Phosphatase 79 Total Protein 6.9 Albumin 3.6 Alpha Fetoprotein 2.1
[2024-11-03 13:08] LABS: Anti Cyclic Citrullinated Pept <16 UNITS
--- NOTE | 2024-11-03 14:43 | WPDONCCN ---
Assessment and Plan Assessment and plan (1) Cavitary lesion of lung: Code(s): J98.4 - Other disorders of lung Status: Acute Assessment and Plan: Patient is the 69-year-old female with history of smoking 1-2 pack per day for 50 years duration along with COPD came into the hospital with shortness of breath. She has lost almost 30 lb weight in last 3 years due to frequent in pneumonia. Patient CT chest showed worsening of airspace consolidation consistent with pneumonia along with central right upper lobe opacity could be underlying malignancy. There was also 2.7 cm hepatic lesions. Patient had liver biopsy done today and pathology is pending. This finding is quite concerning for metastatic lung cancer. I have provided her my office information for follow-up. She will follow-up with me after discharge to discuss final pathology. I have answered all the questions to patient's satisfaction. HPI Data of Consult Date/Time: 11/03/24 14:43 Requesting Physician: Keeley Simental MD Primary Care Provider: Grace Mondragon, Consult Narrative Narrative: Melyssa Mccall is a 69 year old female with history of smoking 1-2 pack per day for more than 50 years duration on the smoke 1-2 cigarettes a day along with history of COPD. Patient has been on 2 L of oxygen. She came into the hospital with shortness of breath. She has lost almost 30 lb weight in last 2-3 years duration since she has been getting frequent pneumonias. Patient had CTA chest done that showed no evidence of pulmonary embolism. There was airspace consolidation and interstitial thickening concerning for worsening of pneumonia. There was also central right upper lobe opacity could reflect underlying malignancy. Abdominal ultrasound was performed that showed 26 x 18 x 23 mm mass in the liver. Patient underwent liver biopsy today and pathology is pending. She denies any chest pain. Denies any hemoptysis. Denies any bone pain. Denies any headaches. No other new complaints. Patient lives by herself. Review of Systems Review of Systems: 12 point review of system was reviewed [facility] Past Medical History Medical History (Updated 11/02/24 @ 13:14 by Melissa Tracey MD) Raynaud disease OSWALD (iron deficiency anemia) Osteopenia Liana esophagitis RLS (restless legs syndrome) Esophageal dilatation Chronic narcotic use On home O2 Chronic sinusitis Dysphagia Olecranon bursitis, left elbow PSVT (paroxysmal supraventricular tachycardia) Change in bowel habits Kidney stones Fibromyalgia Rheumatoid arthritis Arthritis Constipation IBS (irritable bowel syndrome) GERD (gastroesophageal reflux disease) Stomach ulcer Wears glasses Ventricular ectopics Lumbar radiculopathy Family history of colon cancer Adenomatous colon polyp Esophageal stricture Urge incontinence ILD (interstitial lung disease) Small amount of interstitial lung disease was seen on base of lungs on chest CT 03/25/2018 which was an abdomen and pelvis CT Essential hypertension Oxygen dependent 2L w/activity, 1 w/rest Collagen vascular disease Hyperlipidemia, unspecified Infectious colitis Mass in neck Thrush Anxiety 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, patient unsure of this diagnosis COPD (chronic obstructive pulmonary disease) Tobacco abuse Surgical History Surgical History History of partial hysterectomy Status post insertion of spinal cord stimulator History of bladder suspension procedure History of appendectomy History of lumbar surgery Spinal cord stimulator implanted 05/23/21 Family History Family History Mother Patient's mother is , Onset Age: 72 Sibling Carcinoma of colon Ovarian cancer Lung cancer Rectal cancer Family history of malignant neoplasm of breast in first degree relative Father Brain aneurysm Cerebrovascular accident, Onset Age: 54 Other Arthritis COPD (chronic obstructive pulmonary disease) High cholesterol Hypertension Lung disease Neuropathy Social History Social History Social History: caffeine-coffee/soda Smoking packs per day: 1 Smoking cigarettes per day: 20.0 Years smoked: 60 Smoking pack-years: 60.00 Smoking status: Current every day smoker Second hand tobacco smoke exposure: Yes Additional smoking assessment comments: Using Nicotine patches AT TIMES Alcohol intake: never Substance use: unknown Substance use type: does not use Do You Feel Safe in your Home?: Yes Lack of Transportation: No Lack of Food: Never True Current Housing: I Have Housing Concerned About Future Housing: No Difficulty Paying Gas/Electric Bills: No Difficulty Paying for Meds: No Currently Unemployed: No Education: High School Diploma/GED Difficulty w/ Childcare or Family Care: No Living arrangements: alone Occupation/Education: retired Gender identity (if verbalized by the patient): Female Spiritual care concerns: No Meds Home Medications and Allergies Home Medications ?Medication ?Instructions ?Recorded ?Confirmed ?Type aspirin 81 mg tablet,delayed 81 mg PO DAILY 06/02/19 11/01/24 History release (Adult Aspirin Regimen) cyclobenzaprine 5 mg tablet 5 mg PO Q12H 01/05/20 11/01/24 History oxycodone myristate 13.5 mg 13.5 mg PO Q12H 11/19/21 11/01/24 History capsule sprinkle extend release 12hr(DON'T CRUSH) (Xtampza ER) solifenacin 10 mg tablet (Vesicare) 5 mg PO HS 02/04/23 11/01/24 History cholecalciferol (vitamin D3) 125 125 mcg PO DAILY 07/24/23 11/01/24 History mcg (5,000 unit) tablet (Vitamin D3) guaifenesin 600 mg tablet, 1,200 mg PO Q12H 07/24/23 11/01/24 History extended release 12 hr (Mucinex) loratadine 10 mg tablet 10 mg PO DAILY 07/24/23 11/01/24 History metoprolol succinate 25 mg See Rx Instructions .Route 10/28/23 11/01/24 Rx tablet,extended release 24 hr .COMPLEX #90 tabs albuterol sulfate 90 mcg/actuation See Rx Instructions .Route 03/15/24 11/01/24 History aerosol inhaler .COMPLEX PRN Shortness Of Breath Or Wheezing omeprazole 40 mg capsule,delayed 40 mg PO DAILY #90 caps 06/02/24 11/01/24 Rx release albuterol sulfate 2.5 mg/3 mL 2.5 mg (3 mL) inhalation Q4-6H PRN 06/07/24 11/01/24 Rx (0.083 %) solution for nebulization shortness of breath or wheezing #180 mL tiotropium 2.5 mcg-olodaterol 2.5 See Rx Instructions .Route 06/20/24 11/01/24 Rx mcg/actuation mist for inhalation .COMPLEX #4 grams (Stiolto Respimat) fluticasone propionate 50 1 spray intranasal BID PRN nasal 07/11/24 11/01/24 Rx mcg/actuation nasal congestion #16 grams spray,suspension (Flonase Allergy Relief) lovastatin 40 mg tablet 40 mg PO HS 08/02/24 11/01/24 History gabapentin 300 mg capsule 300 mg PO Q12H #180 caps 08/29/24 11/01/24 Rx ferrous sulfate 325 mg (65 mg See Rx Instructions .Route 10/17/24 11/01/24 Rx iron) tablet (FeroSul) .COMPLEX #30 tabs Allergies Allergy/AdvReac Type Severity Reaction Status Date / Time Penicillins Allergy Severe Anaphylaxis Verified 11/02/24 17:40 meperidine Allergy Intermediate Itching Verified 11/02/24 17:40 sulfamethoxazole (From Allergy Intermediate Mouth Verified 11/02/24 17:40 Bactrim) burning/redness trimethoprim (From Bactrim) Allergy Intermediate Mouth Verified 11/02/24 17:40 burning/redness mirtazapine AdvReac Mild Headache Verified 11/02/24 17:40 Vital Signs Vital Signs - 24 hr 11/02/24 20:28 11/02/24 21:12 11/03/24 05:24 Temperature 37.3 C 36.8 C Pulse Rate 100 95 Respiratory Rate 18 16 Blood Pressure 127/59 L 99/86 L Pulse Oximetry 98 97 100 Oxygen Delivery Nasal Cannula Oxygen Flow Rate 2 11/03/24 05:28 11/03/24 05:40 11/03/24 07:55 Temperature Pulse Rate 105 H 108 H Respiratory Rate 20 20 Blood Pressure Pulse Oximetry 97 Oxygen Delivery Nasal Cannula Oxygen Flow Rate 2 11/03/24 09:30 Temperature Pulse Rate 98 Respiratory Rate Blood Pressure 130/52 L Pulse Oximetry 99 Oxygen Delivery Oxygen Flow Rate Exam Narrative: Lungs are clear to auscultation bilaterally. Decreased breath sounds. Cardiovascular regular rate rhythm no murmurs Abdomen soft nontender nondistended Extremities no edema Results Labs 11/03/24 05:46 11/03/24 05:46 Labs: Short CBC 11/03/24 Range/Units 05:46 WBC 8.2 (4.5-10.0) K/mm3 Hgb 11.0 L (12.0-15.0) g/dL Hct 34.7 L (37.0-47.0) % Plt Count 222 (150-375) k/mm3 BMP 11/03/24 05:46 Sodium 138 Potassium 4.2 Chloride 98 Carbon Dioxide 33 H BUN 22 H Creatinine 0.69 L Glucose 122 H Calcium 9.2 Liver Function 11/03/24 Range/Units 05:46 Total Bilirubin 0.2 (0.2-1.3) mg/dL AST 25 (14-36) U/L ALT 19 (6-35) U/L Alkaline Phosphatase 79 (38-126) U/L Albumin 3.6 (3.5-5.1) g/dL
[2024-11-03] MEDS: LOVASTATIN 20 MG TABLET 40 MG PO (22:36)
[2024-11-03] MEDS: SOLIFENACIN 5 MG TABLET PO (22:36)
[2024-11-04] VITALS (9 sets, daily range): BP systolic 116–130; BP diastolic 59; PULSE 78–90; RESP 12–18; TEMP 36.1–36.4; O2SAT 94–100
[2024-11-04] MEDS: ACETAMINOPHEN 325 MG TABLET 650 MG PO (02:12)
[2024-11-04] MEDS: SODIUM CHLOR 3% 15 ML NEB (RESPIRATORY THERAPY) 6 ML INHALATION (04:52)
[2024-11-04 06:14] LABS: Hematocrit 34.2 % (37.0-47.0); Hemoglobin 10.7 g/dL (12.0-15.0); Mean Corpuscular HGB Conc 31.3 g/dl (32-36); Mean Corpuscular Hemoglobin 30.5 pg (26-34); Mean Corpuscular Volume 97.4 fl (80-100); Platelet Count Result 195 k/mm3 (150-375); Red Blood Count 3.51 M/mm3 (4.2-5.4); White Blood Count 6.1 K/mm3 (4.5-10.0)
[2024-11-04 06:32] LABS: Alanine Aminotransferase 17 U/L (6-35); Albumin Level 3.1 g/dL (3.5-5.1); Alkaline Phosphatase 66 U/L (38-126); Anion Gap 3 mmol/L (4-12); Aspartate Amino Transferase 21 U/L (14-36); Bilirubin,Total 0.3 mg/dL (0.2-1.3); Blood Urea Nitrogen 18 mg/dL (7-17); Calcium 9.0 mg/dL (8.4-10.2); Carbon Dioxide 35 mmol/L (22-30); Chloride 101 mmol/L (98-107); Estimated CRCL calculation 41 ml/min; Estimated Glomerular Filt Rate > 60; Glucose 110 mg/dL (65-110); Potassium 4.6 mmol/L (3.4-5.0); Sodium 139 mmol/L (137-145); Total Protein 6.1 g/dL (6.3-8.2)
[2024-11-04] MEDS: oxyCODONE HCL (*CRX) 5 MG TAB IR PO ×3 (06:39→20:58)
[2024-11-04] MEDS: AZITHROMYCIN 500 MG/NS 250 ML 500 MG/250 ML BAG 250 MG IVPB (06:47)
[2024-11-04] MEDS: UMECLIDINIUM/VILANTEROL 62.5-25 MCG ELLIPTA 1 PUFF INHALATION (08:03)
[2024-11-04] MEDS: NICOTINE (*PBKC) 14 MG PATCH 1 PATCH TRANSDERM (10:32)
[2024-11-04] MEDS: ENOXAPARIN 40 MG/0.4 ML SYRINGE SUB-Q (10:35)
[2024-11-04] MEDS: FERROUS SULFATE 325 MG TABLET DR BY MOUTH (10:37)
[2024-11-04] MEDS: PANTOPRAZOLE 40 MG TABLET PO ×2 (10:38→20:50)
[2024-11-04] MEDS: ASPIRIN 81 MG ENTERIC TABLET PO (10:38)
[2024-11-04] MEDS: guaiFENesin 12 HR 600 MG TABCR 1200 MG PO ×2 (10:38→20:50)
[2024-11-04] MEDS: CYCLOBENZAPRINE HCL 5 MG TABLET PO ×2 (10:38→20:50)
[2024-11-04] MEDS: LORATADINE 10 MG TABLET PO (10:39)
[2024-11-04] MEDS: CHOLECALCIFEROL (VITAMIN D3) 125 MCG (5,000 UNITS) TABLET PO (10:39)
[2024-11-04] MEDS: GABAPENTIN 300 MG CAPSULE PO ×2 (10:39→20:50)
[2024-11-04] MEDS: METOPROLOL SUCCINATE EXT REL 25 MG TABCR BY MOUTH (10:39)
--- NOTE | 2024-11-04 14:47 | P.PNIM_ITS ---
Progress Note: A&P Assessment and Plan (1) Depression with anxiety: Code(s): F41.8 - Other specified anxiety disorders Status: Acute (2) Essential hypertension: Code(s): I10 - Essential (primary) hypertension Status: Chronic (3) Hyperlipidemia, unspecified: Qualifiers: Hyperlipidemia type: unspecified Qualified Code(s): E78.5 - Hyperlipidemia, unspecified Code(s): E78.5 - Hyperlipidemia, unspecified Status: Acute (4) Prediabetes: Code(s): R73.03 - Prediabetes Status: Acute (5) Vitamin D deficiency: Code(s): E55.9 - Vitamin D deficiency, unspecified Status: Acute (6) B12 deficiency: Code(s): E53.8 - Deficiency of other specified B group vitamins Status: Acute (7) Severe protein-calorie malnutrition: Code(s): E43 - Unspecified severe protein-calorie malnutrition Status: Acute (8) Gastroesophageal reflux disease without esophagitis: Code(s): K21.9 - Gastro-esophageal reflux disease without esophagitis Status: Acute (9) Esophageal stricture: Code(s): K22.2 - Esophageal obstruction Status: Acute (10) Adenomatous colon polyp: Code(s): D12.6 - Benign neoplasm of colon, unspecified Status: Acute (11) Peripheral neuropathy: Qualifiers: Peripheral neuropathy type: idiopathic neuropathy, unspecified Q ualified Code(s): G60.9 - Hereditary and idiopathic neuropathy, unspecified Code(s): G62.9 - Polyneuropathy, unspecified Status: Acute (12) RLS (restless legs syndrome): Code(s): G25.81 - Restless legs syndrome Status: Acute (13) Right upper lobe pneumonia: Code(s): J18.9 - Pneumonia, unspecified organism Status: Acute (14) Chronic respiratory failure with hypoxia: Code(s): J96.11 - Chronic respiratory failure with hypoxia Status: Acute (15) ILD (interstitial lung disease): Code(s): J84.9 - Interstitial pulmonary disease, unspecified Status: Acute (16) Oxygen dependent: Code(s): Z99.81 - Dependence on supplemental oxygen Status: Acute (17) Recurrent pneumonia: Code(s): J18.9 - Pneumonia, unspecified organism Status: Acute (18) Tobacco abuse: Code(s): Z72.0 - Tobacco use Status: Acute Plan Right upper lobe pneumonia recurrent pneumonia on right upper lobe with persistent consultation since August 02, 2024 which is new since 12/08/2023. Treated with multiple rounds of antibiotics. Recently has been treated with Levaquin and Flagyl. on ceftriaxone and azithromycin. These opacities seem worsened over time with significant cavitation and scarring. pulmonary team on board. sputum culture and Tb tests pending 2.7 cm enhancing hepatic lesion, S/p biopsy 11/02/24. Follow pathologyreport US: segment 4/5 of the liver for which malignancy is suspected Elevated CEA consulted oncology COPD exacerbation Chronic respiratory failure with hypoxia and hypercapnia BiPAP at night solumedrol switched to prednisone Rocephin and azithromycin home inhalers follow culture results pulm team on board Tobacco abuse History of esophageal stricture status post EGD and dilatation Severe calorie malnutrition Hypertension Hyperlipidemia Paroxysmal SVT on beta-valeriano Iron deficiency anemia Restless leg syndrome Fibromyalgia Rheumatoid arthritis RA factor was elevated at 22.4 MICKI screen was negative will check anti CCP Irritable bowel syndrome GERD Interstitial lung disease Anxiety depression DVT prophylaxis Code status full code Patient was seen and examined at bedside. she is feeling fine,denies any chest pain SOB, abd pain,N/V. Underwent biopsy of liver mass on 701/ CEA is elevated, Alpha protein is normal, seen by Dr. Gipson, oncologist suspect malignancy, will follow up on biopsy, Continue Iv Abx for pneumonia. seen by Dr. Tracey concerned patient may have autoimmune disease, Tb test ordered by pulm team and pending. Subjective Date/time seen: 11/04/24 14:47 Interval history: per HPI: This is a 69-year-old female who presents to the ED with shortness of breath and right upper chest pain. She also reports cough which has been ongoing since past few days. It she has underlying COPD continues to smoke. She has been on oxygen 2 L via nasal cannula lactic chronically. No hemoptysis. Does not report any fever or chills. 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 The ED her vitals were stable mild tachycardia oxygen saturation adequate on 2 L oxygen via nasal cannula. Laboratory studies showed WBC 7.2 hemoglobin 13.1 platelet count 202. Sodium 136 potassium 4 chloride 98 BUN 14 creatinine 0.53 bicarbonate 33 blood glucose 111. D-dimer elevated at 1.62. Troponin is negative less than 0.012. Influenza RSV COVID swab was negative. Chest x-ray showed suspected right upper lobe pneumonia with associated underlying chronic scarring with COPD changes. She underwent chest CTA which showed no evidence of PE aortic dissection or aortic aneurysm. Significant worsening of patchy airspace consolidation and interstitial thickening overload compatible with significant worsening of pneumonia. Central right upper lobe airspace opacity with cavitary are cystic changes again present which could reflect underlying neoplastic disease or treated disease versus pneumonia. Severe emphysema was noted. EKG with normal sinus rhythm with nonspecific ST-T changes. She was given ceftriaxone and azithromycin in the ER and is admitted for further treatment. patient was seen and examined at bedside. denies chest pain, abd pain, N/V. breathing is better. discussed about liver mass found on the CT. plan for biopsy. continue Solumedrol, IV Abx for pneumonia vs COPD exacerbation. Patient was seen and examined at bedside. she is feeling fine,denies any chest pain SOB, abd pain,N/V. Underwent biopsy of liver mass yesterday/ CEA elevated Alpha protein pending. oncology team has been consulted. Continue Iv Abx for pneumonia. Tb test ordered by pulm team and pending. Patient was seen and examined at bedside. she is feeling fine,denies any chest pain SOB, abd pain,N/V. Underwent biopsy of liver mass on 701/ CEA is elevated, Alpha protein is normal, seen by Dr. Gipson, oncologist suspect malignancy, will follow up on biopsy, Continue Iv Abx for pneumonia. seen by Dr. Tracey concerned patient may have autoimmune disease, Tb test ordered by pulm team and pending. Review of Systems 2 Review of Systems: - CONSTITUTIONAL: Denies weight loss, fe nika and chills. - HEENT: Denies changes in vision and he aring - RESPIRATORY: Reports SOB and cough. - CV: Denies palpitations and reports CP . - GI: Denies abdominal pain, nausea, vom iting and diarrhea. - : Denies dysuria and urinary frequen cy. - MSK: Denies myalgia and joint pain. - SKIN: Denies rash and pruritus. - NEUROLOGICAL: Denies headache and sync ope. - PSYCHIATRIC: Denies recent changes in mood. Denies anxiety and depression. Exam 2 Narrative: Appears chronically ill and malnourished Patient is comfortable, NAD HEENT: eyes are clear and none icteric LUNGS:CTA HEART: RR S1S2 ABD: BS+, Soft and nontender Lower extremities: no edema SKIN: nonjaundiced Neuro: grossly intact. Objective Data Vital Signs Vital Signs: Vital Signs - 24 hr 11/03/24 20:00 11/03/24 20:59 11/03/24 21:13 Temperature 36.4 C Pulse Rate 84 Respiratory Rate 16 Blood Pressure 122/50 L Pulse Oximetry 98 98 98 Oxygen Delivery Nasal Cannula Nasal Cannula Oxygen Flow Rate 2 2 11/04/24 04:53 11/04/24 05:20 11/04/24 08:00 Temperature 36.1 C L Pulse Rate 78 79 85 Respiratory Rate 18 12 Blood Pressure 116/59 L Pulse Oximetry 100 96 Oxygen Delivery Nasal Cannula Oxygen Flow Rate 2 11/04/24 08:03 11/04/24 10:20 11/04/24 10:39 Temperature Pulse Rate 85 Respiratory Rate Blood Pressure Pulse Oximetry 96 Oxygen Delivery Nasal Cannula Nasal Cannula Oxygen Flow Rate 2 2 Intake/Output Intake/Output: Intake & Output 11/01/24 11/02/24 11/03/24 11/04/24 23:59 23:59 23:59 23:59 Intake Total 380 540 970 956 Output Total 0 Balance 380 540 970 956 Meds/Results Medications: Active Medications Generic Name Dose Route Start Last Admin Trade Name Freq PRN Reason Stop Dose Admin Acetaminophen 650 mg 11/01/24 08:23 11/04/24 02:12 Acetaminophen 325 Mg Tablet PO 650 mg Q4H PRN Administration Mild Pain (1-3) or Fever Albuterol 2.5 mg 11/01/24 15:29 Albuterol Sulfate Neb 2.5 Mg/3 Ml Inh INHALATION Q4HRT PRN shortness of breath Albuterol 1 puff 11/01/24 15:29 Albuterol Sulfate (*Sp) Aerosol 1 Puff INHALATION Q4HRT PRN Wheezing Aspirin 81 mg 11/02/24 09:00 11/04/24 10:38 Aspirin 81 Mg Enteric Tablet PO 81 mg DAILY ALBERTA Administration Azithromycin 500 mg 11/05/24 09:00 Azithromycin 250 Mg Tablet PO 11/05/24 09:01 ONCE ONE Cyclobenzaprine HCl 5 mg 11/01/24 21:00 11/04/24 10:38 Cyclobenzaprine Hcl 5 Mg Tablet PO 5 mg Q12H ALBERTA Administration Enoxaparin Sodium 40 mg 11/03/24 09:00 11/04/24 10:35 Enoxaparin 40 Mg/0.4 Ml Syringe SUB-Q 40 mg DAILY ALBERTA Administration Ferrous Sulfate 325 mg 11/02/24 09:00 11/04/24 10:37 Ferrous Sulfate [address] BY MOUTH 325 mg DAILY ALBERTA Administration Fluticasone Propionate 1 spray 11/01/24 15:29 Fluticasone Propionate 0.05% Na Spr 16 Gm Btl (*Bkc) NASAL BID PRN nasal congestion Gabapentin 300 mg 11/01/24 21:00 11/04/24 10:39 Gabapentin 300 Mg Capsule PO 300 mg Q12H ALBERTA Administration Guaifenesin 1,200 mg 11/01/24 21:00 11/04/24 10:38 Guaifenesin 12 Hr 600 Mg Tabcr PO 1,200 mg Q12H ALBERTA Administration Ceftriaxone Sodium 1 gm in 50 mls @ 100 mls/hr 11/02/24 06:00 11/04/24 06:44 Rocephin 1 Gm/Ns 50 Ml IVPB Infused Q24H ALBERTA Infusion Loratadine 10 mg 11/02/24 09:00 11/04/24 10:39 Loratadine 10 Mg Tablet PO 10 mg DAILY ALBERTA Administration Lovastatin 40 mg 11/01/24 21:00 11/03/24 22:36 Lovastatin 20 Mg Tablet PO 40 mg HS ALBERTA Administration Metoprolol Succinate 25 mg 11/02/24 09:00 11/04/24 10:39 Metoprolol Succinate Ext Rel 25 Mg Tabcr BY MOUTH 25 mg DAILY ALBERTA Administration Miscellaneous Information 1 each 11/01/24 00:01 11/01/24 18:36 Albuterol Nebs And Mdi Home Meds Have Duplicate Prn Indications. Please Clarify XX 12/01/24 00:00 1 each CLARIFY ALBERTA Administration Nicotine 1 patch 11/02/24 18:15 11/04/24 10:32 Nicotine (*Pbkc) 14 Mg Patch TRANSDERM 1 patch DAILY ALBERTA Administration Ondansetron HCl 4 mg 11/01/24 08:23 Ondansetron Inj 4 Mg/2 Ml Vial IV PUSH Q4H PRN Nausea Oxycodone HCl 5 mg 11/01/24 18:01 11/04/24 06:39 Oxycodone Hcl (*Crx) 5 Mg Tab Ir PO 5 mg Q6H PRN Administration Pain 7-10 Pantoprazole Sodium 40 mg 11/02/24 09:00 11/04/24 10:38 Pantoprazole 40 Mg Tablet PO 40 mg Q12HR ALBERTA Administration Prednisone 40 mg 11/04/24 08:00 11/04/24 10:39 Prednisone 20 Mg Tablet PO 40 mg DAILY@0800 ALBERTA Administration Senna/Docusate Sodium 2 tab 11/01/24 18:01 11/02/24 18:42 Senna/Docusate Sodium Tablet PO 2 tab BID PRN Administration Constipation Solifenacin 5 mg 11/01/24 21:00 11/03/24 22:36 Solifenacin 5 Mg Tablet PO 5 mg HS ALBERTA Administration Umeclidinium/Vilanterol 1 puff 11/02/24 08:00 11/04/24 08:03 Umeclidinium/Vilanterol 62.5-25 Mcg Ellipta INHALATION 1 puff DAILYRT ALBERTA Administration Vitamin D 125 mcg 11/02/24 09:00 11/04/24 10:39 Cholecalciferol (Vitamin D3) 125 Mcg (5,000 Units) Tablet PO 125 mcg DAILY ALBERTA Administration Radiology Results: ITS Impressions Chest X-Ray 11/01/24 05:48 Impression: Suspected right upper lobe pneumonia with associated underlying chronic scarring. COPD. Chest CTA 11/01/24 08:00 Impression: No evidence of pulmonary embolus, aortic dissection, or aortic aneurysm. Significant worsening of patchy airspace consolidation and interstitial thickening overload, compatible significant worsening of pneumonia. Central right upper lobe airspace opacity with cavitary or cystic change is again present, which could reflect underlying neoplastic disease or treated disease versus pneumonia. Severe emphysema. ADDENDUM: 11/01/24 0840 2.7 cm enhancing hepatic lesion is partially imaged. Follow-up pre and postcontrast hepatic MR should be considered to better assess this lesion. Upper Quadrant Ultrasound 11/01/24 16:47 IMPRESSION: Findings within segment 4/5 of the liver for which malignancy is suspected. This focus is amenable to percutaneous biopsy. Liver Biopsy Ultrasound 11/02/24 18:52 IMPRESSION: 1. Technically successful ultrasound-guided core biopsy of a hyperechoic lesion within the liver. Labs Labs: Laboratory Results - last 24 hr 11/04/24 05:43 WBC 6.1 RBC 3.51 L Hgb 10.7 L Hct 34.2 L MCV 97.4 MCH 30.5 MCHC 31.3 L RDW 11.9 Plt Count 195 MPV 9.5 Sodium 139 Potassium 4.6 Chloride 101 Carbon Dioxide 35 H Anion Gap 3 L BUN 18 H Creatinine 0.68 L Estim Creat Clear Calc 41 Estimated GFR > 60 Glucose 110 Calcium 9.0 Total Bilirubin 0.3 AST 21 ALT 17 Alkaline Phosphatase 66 Total Protein 6.1 L Albumin 3.1 L
[2024-11-04] MEDS: SENNA/DOCUSATE SODIUM TABLET 2 TAB PO (15:47)
[2024-11-04] MEDS: SOLIFENACIN 5 MG TABLET PO (20:50)
[2024-11-04] MEDS: LOVASTATIN 20 MG TABLET 40 MG PO (20:50)
--- NOTE | 2024-11-04 20:51 | P.PNPL_ITS ---
Progress Note: A&P Assessment and Plan (1) Acute on chronic respiratory failure: Qualifiers: Respiratory failure complication: hypoxia and hypercapnia Qualified Code(s): J96.21 - Acute and chronic respiratory failure with hypoxia; J96.22 - Acute and chronic respiratory failure with hypercapnia Code(s): J96.20 - Acute and chronic respiratory failure, unspecified whether with hypoxia or hypercapnia Status: Acute Assessment and Plan: She is normally only requires oxygen 2 L with exertion and with sleep, this admission required oxygen at rest 2-3 liters/minute. This is due to her acute illness. She has had hypercapnia dating back to 07/07/2019, her highest pCO2 on a blood gas was this past September,September 05, 2024 with a pCO2 of 70.7. She uses oxygen at home 2 L a minute at night. Will wean her oxygen as tolerated and perform a home oxygen evaluation prior to her discharge.She is on 2 L today, saturation 94-97%. (2) Cavitary lesion of lung: Code(s): J98.4 - Other disorders of lung Status: Acute Assessment and Plan: She has had an evolving right upper lobe scar/density over the last several CT scans now with a cavity. I looked at her CT scans from August 31 2024, CTA, October 21 and November 01. The overall lesion is larger and more cavitary. The differential includes malignancy, fungal, non tuberculous and tuberculous mycobacteria, autoimmune, she has Raynaud's an a diagnosis of RA which can cause cavitary lung nodules. In general these resolved on their own without treatment. The patient has been treated for pneumonia multiple times in the last few months. She had liver biopsy today, and if this result is hepatocellular carcinoma, we could do out patient PET scan, or consider further evaluation fo the RUL cavitatory lesion. Would be unlikely to have 2 new primaries, liver & lung; may be a primary of either organ with mets to the other. (3) ILD (interstitial lung disease): Code(s): J84.9 - Interstitial pulmonary disease, unspecified Status: Acute Assessment and Plan: She has had evidence of interstitial lung disease dating back to at least 2018 and she has rheumatoid arthritis so her ILD is related to her autoimmune condition. She has Raynaud phenomenon fingertips associated with RA. (4) History of tobacco abuse: Code(s): Z87.891 - Personal history of nicotine dependence Status: Acute Assessment and Plan: She continues to smoke, smoked 2 days prior to admission. Tobacco cessation was strongly stressed, and of course she can not smoke while she is in the hospital. We discussed tobacco cessation today. Is necessary for her survival. She has recurrent admissions and decompensations that are difficult to manage, jeffery with on-going smoking tobacco. Start Nicotine patches 14 mg tomorrow am November 03. (5) Right upper lobe pneumonia: Qualifiers: Pneumonia type: due to unspecified organism Qualified Code(s): J18.9 - Pneumonia, unspecified organism Code(s): J18.9 - Pneumonia, unspecified organism Status: Acute Assessment and Plan: Recurrent pneumonias, several recent admission. * 09/01/24 modified barium swallow; Trace penetration without aspiration. (6) Pulmonary cachexia due to chronic obstructive pulmonary disease: Code(s): R64 - Cachexia; J44.9 - Chronic obstructive pulmonary disease, unspecified Status: Acute Assessment and Plan: She has pulmonary cachexia due to chronic obstructive pulmonary disease as well as interstitial lung disease. Her smoking also though is increasing her metabolic rate, contributing to her unintentional weight loss. I talked with her about tobacco cessation as a means to help her maintain her body weight. She has supplemental protein drinks ordered. Plan plan: Continue Nicotine patch 14 mg daily. Continue COPD management. Empiric antibiotics; QuantiFERON gold with her cavitary lesion to r/o TB/non tuberculous mycobacteria; she does not really have enough sputum to submit. She has never grown any mycobacteria. Without sputum to submit we are not going to be able to recover fungus, AFB or any other pathogen. We may consider an extended spectrum respiratory panel at some point. Protein supplements. Continue treatment for COPD. She wanted to know about treated for her Raynaud's. She is on metoprolol, BP is on the low side. I am wondering if she could be weaned off her beta valeriano and switched to calclium channel valeriano which would be better for her Raynaud's. Await liver bx results. Subjective Date/time seen: 11/04/24 20:51 Interval history: November 01, 2024; new consult; Melyssa Mccall is a 69-year old woman followed in our practice most recent visit was 10/06/2024, she has recurrent pneumonias, hypertension, hyperlipidemia, SVT, the esophageal ring status post dilation, chronic sinusitis, COPD on home oxygen, chronic hypercapnic hypoxemic respiratory failure. She was in the hospital August 31 through September 07, has been on Levaquin and other antibiotics as an outpatient recently; she saw Dr. Newman in follow-up on October 06 and afterwards had a PFT showing a severe obstructive abnormality, hyperinflation severely decreased diffusion. Her 6 minute walk showed that she did not require supplemental oxygen at rest she does require 2 L a minute with exertion. She says that at home she felt like she just could not catch her breath. She was sweating, coughing and with each intense cough, she had pain initially in the right posterior chest and then it wraps around to the right anterior chest. She cannot expectorate her secretions very easily. Her last cigarette was 2 days prior to admission. She complains of crusting in her nose and scant bleeding from the nose. This may be due to nasal cannula O2. She does not have hemoptysis. She has lost from 137 lb to 90 lb over the last 3 years. She has diffuse aches and pains. She has had no GI symptoms, nose specific sinus complaints, no sore throat or earache. Her saturation on admission is 99% on 2 liters/minute. November 02, 2024; She had the liver biopsy, ready to eat, she feels better, less coughing. She is interested in quitting smoking, and agreed to a nicotine patch. Now on 2 L, sat is 94-97%. November 04, 2024; on 2 L saturation is 95-99%. She feels better compared to admission, not as short of breath, coughing resolved. Liver biopsy results still pending. DATA * sodium 136, potassium 4.0, chloride 98, carbon dioxide 33, BUN 14, , creatinine 0.52, glucose 111k, white blood cell count 7.2 k with 76% awga, hemoglobin 13.1 grams/deciliter, hematocrit 41.1%, platelets 202k, 3 flat troponins, serology negative for influenza A, B, RSV and SARS-CoV-2 * 11/01/[address] = She has a 2.7 cm hepatic lesion. No evidence of pulmonary embolus, aortic dissection, or aortic aneurysm. Significant worsening of patchy airspace consolidation and interstitial thickening overload, compatible significant worsening of pneumonia. Central right upper lobe airspace opacity with cavitary or cystic change is again present, which could reflect underlying neoplastic disease or treated disease versus pneumonia. Severe emphysema. document embedded image Since she was last admitted, she had a PFT & 6MW; * 10/21/24 PFT; severe obstructive abnormality, no change after albuterol; increased RV consistent with hyperinflation from an obstructive abnormality. The diffusing capacity unadjusted for hemoglobin and carboxyhemoglobin is severely decreased and remains severely decreased when adjusted for alveolar volume. In comparison to previous pulmonary function testing on 12/14/2019 there has been a greater than anticipated time dependent decrease in the FVC, FEV1 and diffusing capacity. There has been a greater than anticipated time dependent increase in the functional residual capacity and residual volume with no significant change in the total lung capacity. Clinical correlation is recommended. * 10/21/24 6MW; patient did not require supplemental oxygen at rest, require 2 L with exertion. = = = = = = = = = = = HISTORY = = = = = = = = = = = HISTORY = = = = = = = = = = = 10/27/24 phone call, Dr Newman spoke with the patient. We reviewed her CT scan results, PFT results and 6 minute walk test results. I informed her that she needs no oxygen at rest and 2 L with activity, her PFTs show a severe obstructive abnormality which is worse since 12/14/[address] scan shows worsening right upper lobe mass consistent with atelectasis, mucus or pneumonia. She continues to smoke 10-15 cigarettes a day. I have told her her disease is continuing to progress and that is absolutely necessary for her to quit. She will try to use nicotine patches and behavior modification. She does not wish for Chantix. Patient has 2-3 days of feeling hot and cold, increased mucus production worsening shortness of breath. She is not wheezing. She has no in known exposures to COVID or other sick people. the patient just finished Flagyl and Levaquin about 09/14/2024. The patient has responded to azithromycin in the past And I prescribed a Z-Pasquale. I told the patient to call us if she did not clinically improve. She voiced understanding. 10/21/24; Chest CT without Contrast: Clinical Indication: COPD Technique: Contiguous sections were acquired throughout the chest without intravenous contrast. Dose reduction technique was used on this scan by utilizing automated exposure control and iterative reconstruction technique. The dose-length product (DLP) was 140.62 mGy-cm. COMPARISON: 08/31/2024 Findings: There is no evidence of any significant mediastinal, hilar or axillary lymphadenopathy. There are extensive atherosclerotic calcifications of the aorta and coronary arteries. There is no evidence of pleural or pericardial effusion. Chronic biapical scarring and calcification noted. There is severe emphysema. Irregular consolidation with cystic or cavitary change in the right upper lobe is probably minimally increased in extent from prior exam. Images through the upper abdomen reveal no abnormalities. Impression: Irregular right upper lobe consolidation with cystic or cavitary changes, mildly increased in extent from prior exam. This is compatible with persistent and mildly worsening pneumonia. Underlying neoplastic disease not completely excluded. Severe emphysema stable biapical scarring and pleural calcification the lung apices. 10/21/24: This is a pulmonary function test with pre and post-bronchodilator spirometry, plethysmography and diffusing capacity. The test was performed and results interpreted in accordance with the 2019 and 2005 ATS/ERS Task Force guidelines respectively using the Global Lung Function Initiative-2012 reference equations. Patient demonstrated good effort and cooperation. Reproducibility criteria were met. The quality of the pre bronchod ilator spirometry maneuver was Grade A and post bronchodilator spirometry maneuver was Grade A. Of note, patient was very lethargic during the testing and had to wake herself up numerous times. Findings: Spirometry: There is decreased maximal expiratory airflow at all lung volumes with concave expiratory flow tracing. The contour the inspiratory flow tracing is normal. The pre bronchodilator FVC is 2.53 L, 81% predicted. The pre bronchodilator FEV1 is 0.85 L, 36% predicted. The pre bronchodilator FEV1: FVC ratio is 34%. The post bronchodilator FVC is 2.46 L, representing a 3% decrease . The post bronchodilator FEV1 is 0.88 L, representing a 4% increase. The post bronchodilator FEV1: FVC ratio is 36%. Plethysmography: The total lung capacity is 6.36 L, 116% predicted. The func tional residual capacity is 5.05 L, 160% predicted. The residual volume is 3.75 L, 159% predicted. The residual volume: Total lung capacity ratio is 59%. Diffusing capacity: The diffusing capacity unadjusted for hemoglobin and carboxyhemoglobin is 4.2, 19% predicted. The diffusing capacity adjusted for alveolar volume is 1.23, 30% predicted. In comparison to previous pulmonary function testing on 12/14/2019 the post bronchodilator FVC has decreased from 3.45 L to 2.46 L. The post bronchodilator FEV1 is decreased from 1.69 L to 0.88 L. The total lung capacity is unchanged from 6.05 L to 6.36 L. The functional residual capacity is increased from 3.94 L to 5.05 L. The residual volume has increased from 2.92 L to 3.75 L. The diffusing capacity unadjusted for hemoglobin and carboxyhemoglobin is decreased from 6.7 to 4.2. The diffusing capacity adjusted for alveolar volume has decreased from 1.50 to 1.23. Impression: There is a severe obstructive abnormality. There is no significant improvement after inhaling a single dose of albuterol. The increase in residual volume to total lung volume ratio is consistent with hyperinflation from an obstructive abnormality. The diffusing capacity unadjusted for hemoglobin and carboxyhemoglobin is severely decreased and remains severely decreased when adjusted for alveolar volume. In comparison to previous pulmonary function testing on 12/14/2019 there has been a greater than anticipated time dependent decrease in the FVC, FEV1 and diffusing capacity. There has been a greater than anticipated time dependent increase in the functional residual capacity and residual volume with no significant change in the total lung capacity. Clinical correlation is recommended. 10/21/24: This is a 6 minute walk test. The test was performed and interpreted in accordance with the 2014 ERS/ATS task force guidelines. Of note, patient use 2 liters/minute with activity and used a walker for stability Findings: The patient's resting room air oxygen saturation measured by pulse oximetry was 96%, the heart rate was 94 bpm, and the modified Naomi dyspnea score was 0. Patient ambulated using 2 L nasal cannula for 244 meters and oxygen saturation remained 92 to 93%. At the end of the study the heart rate was 100 bpm and the modified Naomi dyspnea score was 2. The patient did not have desaturations at rest on room air and did not have desaturations with ambulation on 2 L nasal cannula.. There are no prior studies for comparison. Collectively this demonstrates she has a severe obstructive abnormality consistent with GOLD grade 3 COPD, with hyperinflation and a severely decreased DLCO and compared to 12/14/2019 there has been significant decrease in the FVC, FEV1 and diffusing capacity with a significant increase in the functional residual capacity and residual volume all consistent with worsening COPD. The patient continues to smoke. The patient needs no oxygen at rest, 2 L with ac tivity. 10/21/[address] scan of the chest from 12/08/2023, 08/02/2024, 08/31/2024 and 10/21/2024 with the radiologist. she has worsening right upper lobe low-attenuation lung nodule consistent with atelectasis, mucous retention or pneumonia in area was previous severe panlobular emphysema. Given the appearance and I rapidity of these changes it is very unlikely that this is cancer. I called the patient to discuss these results with her and left a voice message for her to call the clinic. 10/06/2024: This is the 1st pulmonary clinic encounter following inpatient hospital consultation for COPD with hypercarbic respiratory failure discharged on BiPAP. 69-year-old with a history of hypertension, hyperlipidemia, SVT, the esophageal ring status post dilation, chronic sinusitis, GOLD grade 2 group E COPD on home oxygen and NIV. Patient admitted to [facility] from 08/31/2024 through 09/07/2024 for COPD and pneumonia with hypercarbic respiratory failure. ABG on 08/02/2024 of 7.45/60/128 on 2 L nasal cannula and a blood gas on 09/06/2023 of 7.34/71/ 63 on 2 L nasal cannula. Patient was treated for COPD and pneumonia with Levaquin, Flagyl, DuoNebs and guaifenesin. For her hypercarbic respiratory failure she had [facility] insurance and was approved for BiPAP no rate, IPAP 9, EPAP 4 in 2 L bleed in. This provided adequate oxygenation by overnight oximetry and ABG at the end of the night of 7.40/52/64. She was discharged on Levaquin for 7 days, Flagyl for 5 days, Stiolto Respimat and rescue albuterol. She was to continue guaifenesin 600 p.o. b.i.d., Cornet flutter valve and home O2 assessment demonstrated she required 2 L at rest and 2 L with activity. Plan was for follow-up in the Pulmonary Clinic in 4 weeks for compliance check and to reassess her for CT scan to follow her right upper lobe infiltrate. 09/20/2024: EGD esophagitis was normal. Nonobstructing ring with dilatation. 09/29/2024: PCP office visit note. 2 L nasal cannula saturation 93%. Weight 90 lb. Respiratory medicines include guaifenesin 600 mg p.o. q.12 hours. Albuterol inhaler p.r.n., albuterol nebulizer p.r.n., Stiolto Respimat, Flonase nasal spray 1 b.i.d. p.r.n. Today she tells me that She has had no hospitalizations or exacerbations since discharge on 09/07/2024. Overall the patient has done good. For the last week she has felt well and back close to her normal. She says she is breathing at 95% back to her normal and she is walking more. She says 1 year ago she could walk 4 blocks. Before she got sick she could walk 2 blocks and since leaving the hospital she has gotten stronger and can now walk 1 block. Her appetite has improved and she has gained 1 lb at home. Her weight today is 88.5. The patient is using Stiolto Respimat at 2 puffs q.a.m., rescue albuterol inhaler 1 time a day. Rescue albuterol nebulizer 1 time a day. Guaifenesin 1200 mg p.o. b.i.d.. Flonase 1 spray each nostril once a day. Claritin p.r.n.. She says her sinuses are controlled. as prescribed, the patient is wearing 2 L at oxygen at rest with saturations 92%. The patient is using 2 L with activity with saturations ranging 66-90%. She is using 2 L bleed in at night. The patient continues to smoke and she smoked 5 cigarettes yesterday. she has quit previously and tells me she will quit again. She has nicotine patches at home and will use ease. The patient is taking THC gummies. Patient's CAT score today is 19. The patient is wearing her BiPAP with an over the mouth under the nose mask with 2 L bleed in. the patient tells me she wore the mask more faithfully and said that this did help her during the day and she felt as if she could take deeper breaths. She has had some family stressors and has not worn the machine over the last week or so. Download from [employer], and [employer], 09/04/2024 through 10/03/2024: BiPAP no rate. Inspiratory pressure 9, expiratory pressure 4. Total usage days 53%. U eryn days greater than or equal to 4 hours was 40%. Average usage on days used 5 hours and 25 minutes. AHI 0.5. Apnea index 0.4, hypopnea index 0.1. Central apnea index 0.1. Median leak 0.6. Ninety-fifth percentile leak 10.9. Maximal leak 35.8. Median tidal volume 446. Median respiratory rate 17. Median minute ventilation 7.7. I interpret this download as poor compliance, adequate press ures and low leak. Of note, no usage after 09/26/2024. DATA: 09/07/2024: Home O2 assessment: Rest room air saturation 86%. Rest nasal cannula 1 L saturation 88%. Rest nasal cannula 2 L saturation 91%. Exercise nasal cannula 2 L saturation 90%. Patient requires 2 L with rest and 2 L with activity. 09/07/24: Patient wore her home BiPAP no rate, IPAP 9, EPAP 4 and 2 L bleed in with an over the mouth under the nose mask. She said she wore the mask for 6-1/2 hours and slept well and feels refreshed this morning. Overnight oximetry on these settings with recording duration of 6 hours and 52 minutes, average saturation 92%. Low saturation 87%. Time with saturation less than or equal to 88% was 3 minutes. Oxygen desaturation index 0.6. Patient had ABG at the end of the night on these settings with a pH of 7.40/52/64. 08/31/24: EXAMINATION: CTA chest PE protocol DATE: 08/31/2024 11:02 INDICATION: Shortness of breath TECHNIQUE: Computed tomography (CT) pulmonary angiogram of the chest was performed with 100 mL Omnipaque-350 intravenous contrast. Additional 3D reconstructions utilizing coronal maximum intensity projection (MIP) were performed. Automated exposure control and iterative reconstruction technique were employed. The dose-length product was 151.66 mGy-cm. COMPARISON: 08/02/2024 and 12/08/2023 FINDINGS: No pulmonary embolism. Severe emphysema with chronic partially calcified by apical pleural-parenchymal scarring. There is been some progression of low-attenuation fluid/mucus within several of the cystic airspace in the right upper lobe which are new since 12/08/2023 consistent with pneumonia. Unchanged chronic reticulonodular opacities with a few small calcified nodules in the basilar right middle lobe and lingula consistent with sequela of chronic pneumonia. No pleural effusion. Heart size is normal. Atherosclerotic coronary artery calcific lesion. No pericardial effusion. Thoracic aorta is normal in caliber. No pathologically enlarged thoracic lymphadenopathy. 1 cm cyst and 13 x 5 x 3 mm nonobstructing stone at the upper pole the left kidney. There is scattered cortical scarring in the right kidney consistent with sequela of prior infection or infarction. Additional 2 mm nonobstructing stone at the lower pole of the right kidney. Mild thoracic spondylosis with chronic minimal anterior wedging of a few mid and lower thoracic vertebral bodies. Spinal stimulator leads which terminate at the posterior central canal at the level of T6-T7. IMPRESSION: 1. No pulmonary embolism. 2. Severe emphysema with right upper lobe pneumonia. 3. Bilateral nonobstructing nephrolithiasis. --------- 10/27/2022 EXAMINATION: CT lung screening INDICATION: Personal history of nicotine dependence, current smoker with 50 pack year history COMPARISON: 10/25/2021 FINDINGS: There is severe emphysema. There is a stable 5 mm nodule of the left upper lobe. There is stable 3 mm nodule of the right upper lobe. The lungs are free of acute opacities. No pleural effusion or pneumothorax. There is scarring and calcification of the lung apices. Calcified coronary artery atherosclerosis is noted. No pathologically enlarged thoracic lymph nodes are identified. The heart size is normal. There is mild thoracic spondylosis. IMPRESSION: 1. Lung-RADS category 2: Benign appearance or behavior. Continue annual screening with noncontrast low-dose chest CT in 12 months. 12/19/2019 PULMONARY FUNCTION TESTS Results are reliable and reproducible. Spirometry: FEV1 is 60%, moderately decreased, 1.49 L. FVC is 90% normal. Decreased FEV1% consistent with airflow obstruction. . There is a 14% increase in FEV1 with bronchodilator, 200 ml, which is significant. Lung volumes: Total lung capacity 107% normal. RV/TLC increased 48% and consistent with air trapping. Airway resistance increased 336%. Diffusion: DLCO moderately reduced 35%. Flow volume loop: Scooping of the expiratory limb. IMPRESSION: Moderate obstructive ventilatory impairment with good response to bronchodilator, air trapping, moderate diffusion impairment. This is consistent with COPD. 11/23/2019: Alpha 1 anti trypsin genotype MM. Alpha 1 anti trypsin level 160, normal. Review of Systems Review of Systems: No leg swelling, no GI complaints, no travel, no sick contacts. All systems reviewed & are unremarkable except as noted in HPI and below Review of Systems Review of Systems: All systems reviewed & are unremarkable except as noted in HPI and below Exam Narrative: GEN: Alert, oriented, not in distress. Pleasant, cough is better. HEENT: pupils are equal, EOMI, symmetrical face; oral membranes moist, upper and lower dentures, Mallampati II airway, tacky mucous membranes NECK: Trachea is midline CHEST: Equal air entry, symmetric excursion, decreased breath sounds CV: Regular S1S2 no m/g/r ABD : (+) bowel sounds, soft Extremities : She has thickened skin on her palms, her nails are curved at tips without overt clubbing. No pitting. Hands are slightly cool. She tells me that when she touches cold food, fingers get icy cold, she has pain. She has a typical appearance of Raynaud's. No edema. PSYCH: normal thought and speech, gait is not tested. Objective Data Vital Signs Vital Signs: Vital Signs - 24 hr 11/03/24 20:59 11/03/24 21:13 11/04/24 04:53 Temperature 36.4 C Pulse Rate 84 78 Respiratory Rate 16 18 Blood Pressure 122/50 L Pulse Oximetry 98 98 Oxygen Delivery Nasal Cannula Oxygen Flow Rate 2 11/04/24 05:20 11/04/24 08:00 11/04/24 08:03 Temperature 36.1 C L Pulse Rate 79 85 Respiratory Rate 12 Blood Pressure 116/59 L Pulse Oximetry 100 96 96 Oxygen Delivery Nasal Cannula Nasal Cannula Oxygen Flow Rate 2 2 11/04/24 10:20 11/04/24 10:39 11/04/24 14:00 Temperature 36.1 C L Pulse Rate 85 82 Respiratory Rate 14 Blood Pressure 128/59 L Pulse Oximetry 98 Oxygen Delivery Nasal Cannula Oxygen Flow Rate 2 11/04/24 20:46 Temperature 36.4 C L Pulse Rate 90 Respiratory Rate 16 Blood Pressure 130/59 L Pulse Oximetry 95 Oxygen Delivery Oxygen Flow Rate Intake/Output Intake/Output: Intake & Output 11/01/24 11/02/24 11/03/24 11/04/24 23:59 23:59 23:59 23:59 Intake Total 380 783 766 2060 Output Total 0 Balance 380 032 441 1098 Meds/Results Medications: Active Medications Generic Name Dose Route Start Last Admin Trade Name Freq PRN Reason Stop Dose Admin Acetaminophen 650 mg 11/01/24 08:23 11/04/24 02:12 Acetaminophen 325 Mg Tablet PO 650 mg Q4H PRN Administration Mild Pain (1-3) or Fever Albuterol 2.5 mg 11/01/24 15:29 Albuterol Sulfate Neb 2.5 Mg/3 Ml Inh INHALATION Q4HRT PRN shortness of breath Albuterol 1 puff 11/01/24 15:29 Albuterol Sulfate (*Sp) Aerosol 1 Puff INHALATION Q4HRT PRN Wheezing Aspirin 81 mg 11/02/24 09:00 11/04/24 10:38 Aspirin 81 Mg Enteric Tablet PO 81 mg DAILY ALBERTA Administration Azithromycin 500 mg 11/05/24 09:00 Azithromycin 250 Mg Tablet PO 11/05/24 09:01 ONCE ONE Cyclobenzaprine HCl 5 mg 11/01/24 21:00 11/04/24 10:38 Cyclobenzaprine Hcl 5 Mg Tablet PO 5 mg Q12H ALBERTA Administration Enoxaparin Sodium 40 mg 11/03/24 09:00 11/04/24 10:35 Enoxaparin 40 Mg/0.4 Ml Syringe SUB-Q 40 mg DAILY ALBERTA Administration Ferrous Sulfate 325 mg 11/02/24 09:00 11/04/24 10:37 Ferrous Sulfate [address] BY MOUTH 325 mg DAILY ALBERTA Administration Fluticasone Propionate 1 spray 11/01/24 15:29 Fluticasone Propionate 0.05% Na Spr 16 Gm Btl (*Bkc) NASAL BID PRN nasal congestion Gabapentin 300 mg 11/01/24 21:00 11/04/24 10:39 Gabapentin 300 Mg Capsule PO 300 mg Q12H ALBERTA Administration Guaifenesin 1,200 mg 11/01/24 21:00 11/04/24 10:38 Guaifenesin 12 Hr 600 Mg Tabcr PO 1,200 mg Q12H ALBERTA Administration Ceftriaxone Sodium 1 gm in 50 mls @ 100 mls/hr 11/02/24 06:00 11/04/24 06:44 Rocephin 1 Gm/Ns 50 Ml IVPB Infused Q24H ALBERTA Infusion Loratadine 10 mg 11/02/24 09:00 11/04/24 10:39 Loratadine 10 Mg Tablet PO 10 mg DAILY ALBERTA Administration Lovastatin 40 mg 11/01/24 21:00 11/03/24 22:36 Lovastatin 20 Mg Tablet PO 40 mg HS ALBERTA Administration Metoprolol Succinate 25 mg 11/02/24 09:00 11/04/24 10:39 Metoprolol Succinate Ext Rel 25 Mg Tabcr BY MOUTH 25 mg DAILY ALBERTA Administration Miscellaneous Information 1 each 11/01/24 00:01 11/01/24 18:36 Albuterol Nebs And Mdi Home Meds Have Duplicate Prn Indications. Please Clarify XX 12/01/24 00:00 1 each CLARIFY ALBERTA Administration Nicotine 1 patch 11/02/24 18:15 11/04/24 10:32 Nicotine (*Pbkc) 14 Mg Patch TRANSDERM 1 patch DAILY ALBERTA Administration Ondansetron HCl 4 mg 11/01/24 08:23 Ondansetron Inj 4 Mg/2 Ml Vial IV PUSH Q4H PRN Nausea Oxycodone HCl 5 mg 11/01/24 18:01 11/04/24 15:45 Oxycodone Hcl (*Crx) 5 Mg Tab Ir PO 5 mg Q6H PRN Administration Pain 7-10 Pantoprazole Sodium 40 mg 11/02/24 09:00 11/04/24 10:38 Pantoprazole 40 Mg Tablet PO 40 mg Q12HR ALBERTA Administration Prednisone 40 mg 11/04/24 08:00 11/04/24 10:39 Prednisone 20 Mg Tablet PO 40 mg DAILY@0800 ALBERTA Administration Senna/Docusate Sodium 2 tab 11/01/24 18:01 11/04/24 15:47 Senna/Docusate Sodium Tablet PO 2 tab BID PRN Administration Constipation Solifenacin 5 mg 11/01/24 21:00 11/03/24 22:36 Solifenacin 5 Mg Tablet PO 5 mg HS ALBERTA Administration Umeclidinium/Vilanterol 1 puff 11/02/24 08:00 11/04/24 08:03 Umeclidinium/Vilanterol 62.5-25 Mcg Ellipta INHALATION 1 puff DAILYRT ALBERTA Administration Vitamin D 125 mcg 11/02/24 09:00 11/04/24 10:39 Cholecalciferol (Vitamin D3) 125 Mcg (5,000 Units) Tablet PO 125 mcg DAILY ALBERTA Administration Radiology Results: ITS Impressions Chest X-Ray 11/01/24 05:48 Impression: Suspected right upper lobe pneumonia with associated underlying chronic scarri ng. COPD. Chest CTA 11/01/24 08:00 Impression: No evidence of pulmonary embolus, aortic dissection, or aortic aneurysm. Significant worsening of patchy airspace consolidation and interstitial thickening overload, compatible significant worsening of pneumonia. Central right upper lobe airspace opacity with cavitary or cystic change is again present, which could reflect underlying neoplastic disease or treated disease versus pneumonia. Severe emphysema. ADDENDUM: 11/01/24 0840 2.7 cm enhancing hepatic lesion is partially imaged. Follow-up pre and postcontrast hepatic MR should be considered to better assess this lesion. Upper Quadrant Ultrasound 11/01/24 16:47 IMPRESSION: Findings within segment 4/5 of the liver for which malignancy is suspected. This focus is amenable to percutaneous biopsy. Liver Biopsy Ultrasound 11/02/24 18:52 IMPRESSION: 1. Technically successful ultrasound-guided core biopsy of a hyperechoic lesion within the liver. Labs Labs: Laboratory Results - last 24 hr 11/04/24 05:43 WBC 6.1 RBC 3.51 L Hgb 10.7 L Hct 34.2 L MCV 97.4 MCH 30.5 MCHC 31.3 L RDW 11.9 Plt Count 195 MPV 9.5 Sodium 139 Potassium 4.6 Chloride 101 Carbon Dioxide 35 H Anion Gap 3 L BUN 18 H Creatinine 0.68 L Estim Creat Clear Calc 41 Estimated GFR > 60 Glucose 110 Calcium 9.0 Total Bilirubin 0.3 AST 21 ALT 17 Alkaline Phosphatase 66 Total Protein 6.1 L Albumin 3.1 L
[2024-11-05] MEDS: oxyCODONE HCL (*CRX) 5 MG TAB IR PO ×3 (05:20→17:17)
[2024-11-05 06:00] VITALS: BP 133/79; PULSE 76; RESP 16; TEMP 37; O2SAT 100
[2024-11-05 06:13] LABS: Hematocrit 34.5 % (37.0-47.0); Hemoglobin 10.8 g/dL (12.0-15.0); Mean Corpuscular HGB Conc 31.3 g/dl (32-36); Mean Corpuscular Hemoglobin 30.6 pg (26-34); Mean Corpuscular Volume 97.7 fl (80-100); Platelet Count Result 182 k/mm3 (150-375); Red Blood Count 3.53 M/mm3 (4.2-5.4); White Blood Count 6.0 K/mm3 (4.5-10.0)
[2024-11-05 06:25] LABS: Alanine Aminotransferase 16 U/L (6-35); Albumin Level 3.1 g/dL (3.5-5.1); Alkaline Phosphatase 71 U/L (38-126); Anion Gap 6 mmol/L (4-12); Aspartate Amino Transferase 23 U/L (14-36); Bilirubin,Total 0.2 mg/dL (0.2-1.3); Blood Urea Nitrogen 18 mg/dL (7-17); Calcium 8.9 mg/dL (8.4-10.2); Carbon Dioxide 32 mmol/L (22-30); Chloride 101 mmol/L (98-107); Estimated CRCL calculation 41 ml/min; Estimated Glomerular Filt Rate > 60; Glucose 107 mg/dL (65-110); Potassium 4.3 mmol/L (3.4-5.0); Sodium 139 mmol/L (137-145); Total Protein 6.1 g/dL (6.3-8.2)
[2024-11-05] MEDS: UMECLIDINIUM/VILANTEROL 62.5-25 MCG ELLIPTA 1 PUFF INHALATION (07:46)
[2024-11-05 07:47] VITALS: O2SAT 98
[2024-11-05] MEDS: PANTOPRAZOLE 40 MG TABLET PO ×2 (08:13→21:56)
[2024-11-05] MEDS: LORATADINE 10 MG TABLET PO (08:13)
[2024-11-05] MEDS: ASPIRIN 81 MG ENTERIC TABLET PO (08:13)
[2024-11-05] MEDS: CHOLECALCIFEROL (VITAMIN D3) 125 MCG (5,000 UNITS) TABLET PO (08:13)
[2024-11-05 08:14] VITALS: PULSE 84
[2024-11-05] MEDS: GABAPENTIN 300 MG CAPSULE PO ×2 (08:14→21:56)
[2024-11-05] MEDS: FERROUS SULFATE 325 MG TABLET DR BY MOUTH (08:14)
[2024-11-05] MEDS: METOPROLOL SUCCINATE EXT REL 25 MG TABCR BY MOUTH (08:14)
[2024-11-05] MEDS: CYCLOBENZAPRINE HCL 5 MG TABLET PO ×2 (08:14→21:56)
[2024-11-05] MEDS: guaiFENesin 12 HR 600 MG TABCR 1200 MG PO ×2 (08:14→21:56)
[2024-11-05] MEDS: ENOXAPARIN 40 MG/0.4 ML SYRINGE SUB-Q (08:21)
[2024-11-05] MEDS: AZITHROMYCIN 250 MG TABLET 500 MG PO (08:21)
[2024-11-05] MEDS: NICOTINE (*PBKC) 14 MG PATCH 1 PATCH TRANSDERM (08:21)
[2024-11-05] MEDS: ALBUTEROL SULFATE (*SP) AEROSOL 1 PUFF INHALATION (09:13)
--- NOTE | 2024-11-05 12:02 | PM.IMPN ---
Progress Note: A&P Assessment and Plan (1) Depression with anxiety: Code(s): F41.8 - Other specified anxiety disorders Status: Acute (2) Essential hypertension: Code(s): I10 - Essential (primary) hypertension Status: Chronic (3) Hyperlipidemia, unspecified: Qualifiers: Hyperlipidemia type: unspecified Qualified Code(s): E78.5 - Hyperlipidemia, unspecified Code(s): E78.5 - Hyperlipidemia, unspecified Status: Acute (4) Prediabetes: Code(s): R73.03 - Prediabetes Status: Acute (5) Vitamin D deficiency: Code(s): E55.9 - Vitamin D deficiency, unspecified Status: Acute (6) B12 deficiency: Code(s): E53.8 - Deficiency of other specified B group vitamins Status: Acute (7) Severe protein-calorie malnutrition: Code(s): E43 - Unspecified severe protein-calorie malnutrition Status: Acute (8) Gastroesophageal reflux disease without esophagitis: Code(s): K21.9 - Gastro-esophageal reflux disease without esophagitis Status: Acute (9) Esophageal stricture: Code(s): K22.2 - Esophageal obstruction Status: Acute (10) Adenomatous colon polyp: Code(s): D12.6 - Benign neoplasm of colon, unspecified Status: Acute (11) Peripheral neuropathy: Qualifiers: Peripheral neuropathy type: idiopathic neuropathy, unspecified Qualified Code(s): G60.9 - Hereditary and idiopathic neuropathy, unspecified Code(s): G62.9 - Polyneuropathy, unspecified Status: Acute (12) RLS (restless legs syndrome): Code(s): G25.81 - Restless legs syndrome Status: Acute (13) Right upper lobe pneumonia: Code(s): J18.9 - Pneumonia, unspecified organism Status: Acute (14) Chronic respiratory failure with hypoxia: Code(s): J96.11 - Chronic respiratory failure with hypoxia Status: Acute (15) ILD (interstitial lung disease): Code(s): J84.9 - Interstitial pulmonary disease, unspecified Status: Acute (16) Oxygen dependent: Code(s): Z99.81 - Dependence on supplemental oxygen Status: Acute (17) Recurrent pneumonia: Code(s): J18.9 - Pneumonia, unspecified organism Status: Acute (18) Tobacco abuse: Code(s): Z72.0 - Tobacco use Status: Acute Plan Right upper lobe pneumonia recurrent pneumonia on right upper lobe with persistent consultation since August 02, 2024 which is new since 12/08/2023. Treated with multiple rounds of antibiotics. Recently has been treated with Levaquin and Flagyl. on ceftriaxone and azithromycin. These opacities seem worsened over time with significant cavitation and scarring. pulmonary team on board. sputum culture and Tb tests pending 2.7 cm enhancing hepatic lesion, S/p biopsy 11/02/24. Follow pathologyreport US: segment 4/5 of the liver for which malignancy is suspected Elevated CEA consulted oncology COPD exacerbation Chronic respiratory failure with hypoxia and hypercapnia BiPAP at night solumedrol switched to prednisone Rocephin and azithromycin home inhalers follow culture results pulm team on board Tobacco abuse History of esophageal stricture status post EGD and dilatation Severe calorie malnutrition Hypertension Hyperlipidemia Paroxysmal SVT on beta-valeriano Iron deficiency anemia Restless leg syndrome Fibromyalgia Rheumatoid arthritis RA factor was elevated at 22.4 MICKI screen was negative will check anti CCP Irritable bowel syndrome GERD Interstitial lung disease Anxiety depression DVT prophylaxis Code status full code Patient was seen and examined at bedside. she is feeling fine,denies any chest pain SOB, abd pain,N/V. Underwent biopsy of liver mass on 701/ CEA is elevated, Alpha protein is normal, seen by Dr. Gipson, oncologist suspect malignancy, will follow up on biopsy, Continue Iv Abx for pneumonia. seen by Dr. Tracey concerned patient may have autoimmune disease, patient has cavitatory in RUL and concerning for mycobacterium-Tb test for non tuberculosis mycobacterium, ordered by pulm team and pending. Subjective Date/time seen: 11/05/24 12:02 Interval history: per HPI: This is a 69-year-old female who presents to the ED with shortness of breath and right upper chest pain. She also reports cough which has been ongoing since past few days. It she has underlying COPD continues to smoke. She has been on oxygen 2 L via nasal cannula lactic chronically. No hemoptysis. Does not report any fever or chills. 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 The ED her vitals were stable mild tachycardia oxygen saturation adequate on 2 L oxygen via nasal cannula. Laboratory studies showed WBC 7.2 hemoglobin 13.1 platelet count 202. Sodium 136 potassium 4 chloride 98 BUN 14 creatinine 0.53 bicarbonate 33 blood glucose 111. D-dimer elevated at 1.62. Troponin is negative less than 0.012. Influenza RSV COVID swab was negative. Chest x-ray showed suspected right upper lobe pneumonia with associated underlying chronic scarring with COPD changes. She underwent chest CTA which showed no evidence of PE aortic dissection or aortic aneurysm. Significant worsening of patchy airspace consolidation and interstitial thickening overload compatible with significant worsening of pneumonia. Central right upper lobe airspace opacity with cavitary are cystic changes again present which could reflect underlying neoplastic disease or treated disease versus pneumonia. Severe emphysema was noted. EKG with normal sinus rhythm with nonspecific ST-T changes. She was given ceftriaxone and azithromycin in the ER and is admitted for further treatment. patient was seen and examined at bedside. denies chest pain, abd pain, N/V. breathing is better. discussed about liver mass found on the CT. plan for biopsy. continue Solumedrol, IV Abx for pneumonia vs COPD exacerbation. Patient was seen and examined at bedside. she is feeling fine,denies any chest pain SOB, abd pain,N/V. Underwent biopsy of liver mass yesterday/ CEA elevated Alpha protein pending. oncology team has been consulted. Continue Iv Abx for pneumonia. Tb test ordered by pulm team and pending. Patient was seen and examined at bedside. she is feeling fine,denies any chest pain SOB, abd pain,N/V. Underwent biopsy of liver mass on 701/ CEA is elevated, Alpha protein is normal, seen by Dr. Gipson, oncologist suspect malignancy, will follow up on biopsy, Continue Iv Abx for pneumonia. seen by Dr. Tracey concerned patient may have autoimmune disease, patient has cavitatory in RUL and concerning for mycobacterium-Tb test for non tuberculosis mycobacterium, ordered by pulm team and pending. Exam Narrative: Appears chronically ill and malnourished Patient is comfortable, NAD HEENT: eyes are clear and none icteric LUNGS:CTA HEART: RR S1S2 ABD: BS+, Soft and nontender Lower extremities: no edema SKIN: nonjaundiced Neuro: grossly intact. Objective Data Vital Signs Vital Signs: Vital Signs - 24 hr 11/04/24 14:00 11/04/24 20:15 11/04/24 20:46 Temperature 36.1 C L 36.4 C L Pulse Rate 82 90 Respiratory Rate 14 16 Blood Pressure 128/59 L 130/59 L Pulse Oximetry 98 95 95 Oxygen Delivery Nasal Cannula Oxygen Flow Rate 2 11/04/24 20:49 11/05/24 06:00 11/05/24 07:47 Temperature 37.0 C Pulse Rate 76 Respiratory Rate 16 Blood Pressure 133/79 Pulse Oximetry 94 100 98 Oxygen Delivery Nasal Cannula Nasal Cannula Oxygen Flow Rate 2 2 11/05/24 08:14 Temperature Pulse Rate 84 Respiratory Rate Blood Pressure Pulse Oximetry Oxygen Delivery Oxygen Flow Rate Intake/Output Intake/Output: Intake & Output 11/02/24 11/03/24 11/04/24 11/05/24 23:59 23:59 23:59 23:59 Intake Total 872 463 7994 290 Output Total 0 Balance 685 260 6530 290 Meds/Results Medications: Active Medications Generic Name Dose Route Start Last Admin Trade Name Freq PRN Reason Stop Dose Admin Acetaminophen 650 mg 11/01/24 08:23 11/04/24 02:12 Acetaminophen 325 Mg Tablet PO 650 mg Q4H PRN Administration Mild Pain (1-3) or Fever Albuterol 2.5 mg 11/01/24 15:29 Albuterol Sulfate Neb 2.5 Mg/3 Ml Inh INHALATION Q4HRT PRN shortness of breath Albuterol 1 puff 11/01/24 15:29 11/05/24 09:13 Albuterol Sulfate (*Sp) Aerosol 1 Puff INHALATION 1 puff Q4HRT PRN Administration Wheezing Aspirin 81 mg 11/02/24 09:00 11/05/24 08:13 Aspirin 81 Mg Enteric Tablet PO 81 mg DAILY ALBERTA Administration Cyclobenzaprine HCl 5 mg 11/01/24 21:00 11/05/24 08:14 Cyclobenzaprine Hcl 5 Mg Tablet PO 5 mg Q12H ALBERTA Administration Enoxaparin Sodium 40 mg 11/03/24 09:00 11/05/24 08:21 Enoxaparin 40 Mg/0.4 Ml Syringe SUB-Q 40 mg DAILY ALBERTA Administration Ferrous Sulfate 325 mg 11/02/24 09:00 11/05/24 08:14 Ferrous Sulfate [address] BY MOUTH 325 mg DAILY ALBERTA Administration Fluticasone Propionate 1 spray 11/01/24 15:29 Fluticasone Propionate 0.05% Na Spr 16 Gm Btl (*Bkc) NASAL BID PRN nasal congestion Gabapentin 300 mg 11/01/24 21:00 11/05/24 08:14 Gabapentin 300 Mg Capsule PO 300 mg Q12H ALBERTA Administration Guaifenesin 1,200 mg 11/01/24 21:00 11/05/24 08:14 Guaifenesin 12 Hr 600 Mg Tabcr PO 1,200 mg Q12H ALBERTA Administration Ceftriaxone Sodium 1 gm in 50 mls @ 100 mls/hr 11/02/24 06:00 11/05/24 06:20 Rocephin 1 Gm/Ns 50 Ml IVPB Infused Q24H ALBERTA Infusion Loratadine 10 mg 11/02/24 09:00 11/05/24 08:13 Loratadine 10 Mg Tablet PO 10 mg DAILY ALBERTA Administration Lovastatin 40 mg 11/01/24 21:00 11/04/24 20:50 Lovastatin 20 Mg Tablet PO 40 mg HS ALBERTA Administration Metoprolol Succinate 25 mg 11/02/24 09:00 11/05/24 08:14 Metoprolol Succinate Ext Rel 25 Mg Tabcr BY MOUTH 25 mg DAILY ALBERTA Administration Miscellaneous Information 1 each 11/01/24 00:01 11/01/24 18:36 Albuterol Nebs And Mdi Home Meds Have Duplicate Prn Indications. Please Clarify XX 12/01/24 00:00 1 each CLARIFY ALBERTA Administration Nicotine 1 patch 11/02/24 18:15 11/05/24 08:21 Nicotine (*Pbkc) 14 Mg Patch TRANSDERM 1 patch DAILY ALBERTA Administration Ondansetron HCl 4 mg 11/01/24 08:23 Ondansetron Inj 4 Mg/2 Ml Vial IV PUSH Q4H PRN Nausea Oxycodone HCl 5 mg 11/01/24 18:01 11/05/24 11:06 Oxycodone Hcl (*Crx) 5 Mg Tab Ir PO 5 mg Q6H PRN Administration Pain 7-10 Pantoprazole Sodium 40 mg 11/02/24 09:00 11/05/24 08:13 Pantoprazole 40 Mg Tablet PO 40 mg Q12HR ALBERTA Administration Prednisone 40 mg 11/04/24 08:00 11/05/24 08:13 Prednisone 20 Mg Tablet PO 40 mg DAILY@0800 ALBERTA Administration Senna/Docusate Sodium 2 tab 11/01/24 18:01 11/04/24 15:47 Senna/Docusate Sodium Tablet PO 2 tab BID PRN Administration Constipation Solifenacin 5 mg 11/01/24 21:00 11/04/24 20:50 Solifenacin 5 Mg Tablet PO 5 mg HS ALBERTA Administration Umeclidinium/Vilanterol 1 puff 11/02/24 08:00 11/05/24 07:46 Umeclidinium/Vilanterol 62.5-25 Mcg Ellipta INHALATION 1 puff DAILYRT ALBERTA Administration Vitamin D 125 mcg 11/02/24 09:00 11/05/24 08:13 Cholecalciferol (Vitamin D3) 125 Mcg (5,000 Units) Tablet PO 125 mcg DAILY ALBERTA Administration Radiology Results: ITS Impressions Chest X-Ray 11/01/24 05:48 Impression: Suspected right upper lobe pneumonia with associated underlying chronic scarring. COPD. Chest CTA 11/01/24 08:00 Impression: No evidence of pulmonary embolus, aortic dissection, or aortic aneurysm. Significant worsening of patchy airspace consolidation and interstitial thickening overload, compatible significant worsening of pneumonia. Central right upper lobe airspace opacity with cavitary or cystic change is again present, which could reflect underlying neoplastic disease or treated disease versus pneumonia. Severe emphysema. ADDENDUM: 11/01/24 0840 2.7 cm enhancing hepatic lesion is partially imaged. Follow-up pre and postcontrast hepatic MR should be considered to better assess this lesion. Upper Quadrant Ultrasound 11/01/24 16:47 IMPRESSION: Findings within segment 4/5 of the liver for which malignancy is suspected. This focus is amenable to percutaneous biopsy. Liver Biopsy Ultrasound 11/02/24 18:52 IMPRESSION: 1. Technically successful ultrasound-guided core biopsy of a hyperechoic lesion within the liver. Labs Labs: Laboratory Results - last 24 hr 11/05/24 05:43 WBC 6.0 RBC 3.53 L Hgb 10.8 L Hct 34.5 L MCV 97.7 MCH 30.6 MCHC 31.3 L RDW 11.7 Plt Count 182 MPV 9.4 Sodium 139 Potassium 4.3 Chloride 101 Carbon Dioxide 32 H Anion Gap 6 BUN 18 H Creatinine 0.68 L Estim Creat Clear Calc 41 Estimated GFR > 60 Glucose 107 Calcium 8.9 Total Bilirubin 0.2 AST 23 ALT 16 Alkaline Phosphatase 71 Total Protein 6.1 L Albumin 3.1 L
[2024-11-05 14:00] VITALS: BP 131/61; PULSE 76; RESP 18; TEMP 36.8; O2SAT 98
[2024-11-05 21:55] VITALS: O2SAT 98
[2024-11-05] MEDS: LOVASTATIN 20 MG TABLET 40 MG PO (21:56)
[2024-11-05] MEDS: SOLIFENACIN 5 MG TABLET PO (21:56)
[2024-11-05 22:00] VITALS: BP 130/47; PULSE 79; RESP 18; TEMP 36.4; O2SAT 100
[2024-11-06] VITALS (8 sets, daily range): BP systolic 111–124; BP diastolic 50–62; PULSE 59–89; RESP 18–20; TEMP 36.4–36.9; O2SAT 94–97
--- NOTE | 2024-11-06 03:21 | PC.NURSE ---
I agree with [employer] graduate nurse assessment on 11/05/24.
[2024-11-06] MEDS: oxyCODONE HCL (*CRX) 5 MG TAB IR PO ×4 (04:31→23:18)
[2024-11-06 05:55] LABS: Hematocrit 37.2 % (37.0-47.0); Hemoglobin 11.7 g/dL (12.0-15.0); Mean Corpuscular HGB Conc 31.5 g/dl (32-36); Mean Corpuscular Hemoglobin 30.5 pg (26-34); Mean Corpuscular Volume 96.9 fl (80-100); Platelet Count Result 200 k/mm3 (150-375); Red Blood Count 3.84 M/mm3 (4.2-5.4); White Blood Count 8.1 K/mm3 (4.5-10.0)
[2024-11-06 06:08] LABS: Alanine Aminotransferase 16 U/L (6-35); Albumin Level 3.2 g/dL (3.5-5.1); Alkaline Phosphatase 66 U/L (38-126); Anion Gap 3 mmol/L (4-12); Aspartate Amino Transferase 21 U/L (14-36); Bilirubin,Total 0.2 mg/dL (0.2-1.3); Blood Urea Nitrogen 17 mg/dL (7-17); Calcium 9.3 mg/dL (8.4-10.2); Carbon Dioxide 36 mmol/L (22-30); Chloride 101 mmol/L (98-107); Estimated CRCL calculation 41 ml/min; Estimated Glomerular Filt Rate > 60; Glucose 92 mg/dL (65-110); Potassium 4.3 mmol/L (3.4-5.0); Sodium 140 mmol/L (137-145); Total Protein 6.2 g/dL (6.3-8.2)
[2024-11-06] MEDS: UMECLIDINIUM/VILANTEROL 62.5-25 MCG ELLIPTA 1 PUFF INHALATION (07:52)
[2024-11-06] MEDS: ASPIRIN 81 MG ENTERIC TABLET PO (08:44)
[2024-11-06] MEDS: GABAPENTIN 300 MG CAPSULE PO ×2 (08:44→20:19)
[2024-11-06] MEDS: CHOLECALCIFEROL (VITAMIN D3) 125 MCG (5,000 UNITS) TABLET PO (08:44)
[2024-11-06] MEDS: LORATADINE 10 MG TABLET PO (08:44)
[2024-11-06] MEDS: guaiFENesin 12 HR 600 MG TABCR 1200 MG PO ×2 (08:44→20:19)
[2024-11-06] MEDS: CYCLOBENZAPRINE HCL 5 MG TABLET PO ×2 (08:45→20:19)
[2024-11-06] MEDS: PANTOPRAZOLE 40 MG TABLET PO ×2 (08:45→20:19)
[2024-11-06] MEDS: METOPROLOL SUCCINATE EXT REL 25 MG TABCR BY MOUTH (08:45)
[2024-11-06] MEDS: FERROUS SULFATE 325 MG TABLET DR BY MOUTH (08:45)
[2024-11-06] MEDS: NICOTINE (*PBKC) 14 MG PATCH 1 PATCH TRANSDERM (08:52)
[2024-11-06] MEDS: ENOXAPARIN 40 MG/0.4 ML SYRINGE SUB-Q (08:52)
--- NOTE | 2024-11-06 12:22 | PM.IMPN ---
Progress Note: A&P Assessment and Plan (1) Depression with anxiety: Code(s): F41.8 - Other specified anxiety disorders Status: Acute (2) Essential hypertension: Code(s): I10 - Essential (primary) hypertension Status: Chronic (3) Hyperlipidemia, unspecified: Qualifiers: Hyperlipidemia type: unspecified Qualified Code(s): E78.5 - Hyperlipidemia, unspecified Code(s): E78.5 - Hyperlipidemia, unspecified Status: Acute (4) Prediabetes: Code(s): R73.03 - Prediabetes Status: Acute (5) Vitamin D deficiency: Code(s): E55.9 - Vitamin D deficiency, unspecified Status: Acute (6) B12 deficiency: Code(s): E53.8 - Deficiency of other specified B group vitamins Status: Acute (7) Severe protein-calorie malnutrition: Code(s): E43 - Unspecified severe protein-calorie malnutrition Status: Acute (8) Gastroesophageal reflux disease without esophagitis: Code(s): K21.9 - Gastro-esophageal reflux disease without esophagitis Status: Acute (9) Esophageal stricture: Code(s): K22.2 - Esophageal obstruction Status: Acute (10) Adenomatous colon polyp: Code(s): D12.6 - Benign neoplasm of colon, unspecified Status: Acute (11) Peripheral neuropathy: Qualifiers: Peripheral neuropathy type: idiopathic neuropathy, unspecified Qualified Code(s): G60.9 - Hereditary and idiopathic neuropathy, unspecified Code(s): G62.9 - Polyneuropathy, unspecified Status: Acute (12) RLS (restless legs syndrome): Code(s): G25.81 - Restless legs syndrome Status: Acute (13) Right upper lobe pneumonia: Code(s): J18.9 - Pneumonia, unspecified organism Status: Acute (14) Chronic respiratory failure with hypoxia: Code(s): J96.11 - Chronic respiratory failure with hypoxia Status: Acute (15) ILD (interstitial lung disease): Code(s): J84.9 - Interstitial pulmonary disease, unspecified Status: Acute (16) Oxygen dependent: Code(s): Z99.81 - Dependence on supplemental oxygen Status: Acute (17) Recurrent pneumonia: Code(s): J18.9 - Pneumonia, unspecified organism Status: Acute (18) Tobacco abuse: Code(s): Z72.0 - Tobacco use Status: Acute Plan Right upper lobe pneumonia recurrent pneumonia on right upper lobe with persistent consultation since August 02, 2024 which is new since 12/08/2023. Treated with multiple rounds of antibiotics. Recently has been treated with Levaquin and Flagyl. on ceftriaxone and azithromycin. These opacities seem worsened over time with significant cavitation and scarring. pulmonary team on board. sputum culture and Tb tests pending 2.7 cm enhancing hepatic lesion, S/p biopsy 11/02/24. Follow pathologyreport US: segment 4/5 of the liver for which malignancy is suspected Elevated CEA consulted oncology COPD exacerbation Chronic respiratory failure with hypoxia and hypercapnia BiPAP at night solumedrol switched to prednisone Rocephin and azithromycin home inhalers follow culture results pulm team on board Tobacco abuse History of esophageal stricture status post EGD and dilatation Severe calorie malnutrition Hypertension Hyperlipidemia Paroxysmal SVT on beta-valeriano Iron deficiency anemia Restless leg syndrome Fibromyalgia Rheumatoid arthritis RA factor was elevated at 22.4 MICKI screen was negative will check anti CCP Irritable bowel syndrome GERD Interstitial lung disease Anxiety depression DVT prophylaxis Code status full code Patient was seen and examined at bedside. she is feeling fine,denies any chest pain SOB, abd pain,N/V. Underwent biopsy of liver mass on 701/ CEA is elevated, Alpha protein is normal, seen by Dr. Gipson, oncologist suspect malignancy, will follow up on biopsy, Continue Iv Abx for pneumonia. seen by Dr. Tracey concerned patient may have autoimmune disease, patient has cavitatory in RUL and concerning for mycobacterium-Tb test for non tuberculosis mycobacterium, ordered by pulm team and pending. patient remains clinically stable and has no new complaints Subjective Date/time seen: 11/06/24 12:22 Interval history: per HPI: This is a 69-year-old female who presents to the ED with shortness of breath and right upper chest pain. She also reports cough which has been ongoing since past few days. It she has underlying COPD continues to smoke. She has been on oxygen 2 L via nasal cannula lactic chronically. No hemoptysis. Does not report any fever or chills. 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 The ED her vitals were stable mild tachycardia oxygen saturation adequate on 2 L oxygen via nasal cannula. Laboratory studies showed WBC 7.2 hemoglobin 13.1 platelet count 202. Sodium 136 potassium 4 chloride 98 BUN 14 creatinine 0.53 bicarbonate 33 blood glucose 111. D-dimer elevated at 1.62. Troponin is negative less than 0.012. Influenza RSV COVID swab was negative. Chest x-ray showed suspected right upper lobe pneumonia with associated underlying chronic scarring with COPD changes. She underwent chest CTA which showed no evidence of PE aortic dissection or aortic aneurysm. Significant worsening of patchy airspace consolidation and interstitial thickening overload compatible with significant worsening of pneumonia. Central right upper lobe airspace opacity with cavitary are cystic changes again present which could reflect underlying neoplastic disease or treated disease versus pneumonia. Severe emphysema was noted. EKG with normal sinus rhythm with nonspecific ST-T changes. She was given ceftriaxone and azithromycin in the ER and is admitted for further treatment. patient was seen and examined at bedside. denies chest pain, abd pain, N/V. breathing is better. discussed about liver mass found on the CT. plan for biopsy. continue Solumedrol, IV Abx for pneumonia vs COPD exacerbation. Patient was seen and examined at bedside. she is feeling fine,denies any chest pain SOB, abd pain,N/V. Underwent biopsy of liver mass yesterday/ CEA elevated Alpha protein pending. oncology team has been consulted. Continue Iv Abx for pneumonia. Tb test ordered by pulm team and pending. Patient was seen and examined at bedside. she is feeling fine,denies any chest pain SOB, abd pain,N/V. Underwent biopsy of liver mass on 701/ CEA is elevated, Alpha protein is normal, seen by Dr. Gipson, oncologist suspect malignancy, will follow up on biopsy, Continue Iv Abx for pneumonia. seen by Dr. Tracey concerned patient may have autoimmune disease, patient has cavitatory in RUL and concerning for mycobacterium-Tb test for non tuberculosis mycobacterium, ordered by pulm team and pending. patient remains clinically stable and has no new complaints Review of Systems Review of Systems: - CONSTITUTIONAL: Denies weight loss, fever and chills. - HEENT: Denies changes in vision and hearing - RESPIRATORY: Reports SOB and cough. - CV: Denies palpitations and reports CP. - GI: Denies abdominal pain, nausea, vomiting and diarrhea. - : Denies dysuria and urinary frequency. - MSK: Denies myalgia and joint pain. - SKIN: Denies rash and pruritus. - NEUROLOGICAL: Denies headache and syncope. - PSYCHIATRIC: Denies recent changes in mood. Denies anxiety and depression. Exam Narrative: Appears chronically ill and malnourished Patient is comfortable, NAD HEENT: eyes are clear and none icteric LUNGS:CTA HEART: RR S1S2 ABD: BS+, Soft and nontender Lower extremities: no edema SKIN: nonjaundiced Neuro: grossly intact. Objective Data Vital Signs Vital Signs: Vital Signs - 24 hr 11/05/24 14:00 11/05/24 21:55 11/05/24 22:00 Temperature 36.8 C 36.4 C Pulse Rate 76 79 Respiratory Rate 18 18 Blood Pressure 131/61 130/47 L Pulse Oximetry 98 98 100 Oxygen Delivery Nasal Cannula Oxygen Flow Rate 2 11/06/24 06:00 11/06/24 07:52 11/06/24 08:00 Temperature 36.9 C Pulse Rate 59 L Respiratory Rate 19 Blood Pressure 116/50 L Pulse Oximetry 97 97 97 Oxygen Delivery Nasal Cannula Nasal Cannula Oxygen Flow Rate 2 2 11/06/24 08:45 11/06/24 11:01 Temperature 36.9 C Pulse Rate 60 Respiratory Rate Blood Pressure Pulse Oximetry Oxygen Delivery Oxygen Flow Rate Intake/Output Intake/Output: Intake & Output 11/03/24 11/04/24 11/05/24 11/06/24 23:59 23:59 23:59 23:59 Intake Total 970 1196 770 50 Balance 970 1196 770 50 Meds/Results Medications: Active Medications Generic Name Dose Route Start Last Admin Trade Name Freq PRN Reason Stop Dose Admin Acetaminophen 650 mg 11/01/24 08:23 11/04/24 02:12 Acetaminophen 325 Mg Tablet PO 650 mg Q4H PRN Administration Mild Pain (1-3) or Fever Albuterol 2.5 mg 11/01/24 15:29 Albuterol Sulfate Neb 2.5 Mg/3 Ml Inh INHALATION Q4HRT PRN shortness of breath Albuterol 1 puff 11/01/24 15:29 11/05/24 09:13 Albuterol Sulfate (*Sp) Aerosol 1 Puff INHALATION 1 puff Q4HRT PRN Administration Wheezing Aspirin 81 mg 11/02/24 09:00 11/06/24 08:44 Aspirin 81 Mg Enteric Tablet PO 81 mg DAILY ALBERTA Administration Cyclobenzaprine HCl 5 mg 11/01/24 21:00 11/06/24 08:45 Cyclobenzaprine Hcl 5 Mg Tablet PO 5 mg Q12H ALBERTA Administration Enoxaparin Sodium 40 mg 11/03/24 09:00 11/06/24 08:52 Enoxaparin 40 Mg/0.4 Ml Syringe SUB-Q 40 mg DAILY ALBERTA Administration Ferrous Sulfate 325 mg 11/02/24 09:00 11/06/24 08:45 Ferrous Sulfate [address] BY MOUTH 325 mg DAILY ALBERTA Administration Fluticasone Propionate 1 spray 11/01/24 15:29 Fluticasone Propionate 0.05% Na Spr 16 Gm Btl (*Bkc) NASAL BID PRN nasal congestion Gabapentin 300 mg 11/01/24 21:00 11/06/24 08:44 Gabapentin 300 Mg Capsule PO 300 mg Q12H ALBERTA Administration Guaifenesin 1,200 mg 11/01/24 21:00 11/06/24 08:44 Guaifenesin 12 Hr 600 Mg Tabcr PO 1,200 mg Q12H ALBERTA Administration Ceftriaxone Sodium 1 gm in 50 mls @ 100 mls/hr 11/02/24 06:00 11/06/24 06:39 Rocephin 1 Gm/Ns 50 Ml IVPB Infused Q24H ALBERTA Infusion Loratadine 10 mg 11/02/24 09:00 11/06/24 08:44 Loratadine 10 Mg Tablet PO 10 mg DAILY ALBERTA Administration Lovastatin 40 mg 11/01/24 21:00 11/05/24 21:56 Lovastatin 20 Mg Tablet PO 40 mg HS ALBERTA Administration Metoprolol Succinate 25 mg 11/02/24 09:00 11/06/24 08:45 Metoprolol Succinate Ext Rel 25 Mg Tabcr BY MOUTH 25 mg DAILY ALBERTA Administration Miscellaneous Information 1 each 11/01/24 00:01 11/05/24 16:38 Albuterol Nebs And Mdi Home Meds Have Duplicate Prn Indications. Please Clarify XX 12/01/24 00:00 Not Given [facility] Nicotine 1 patch 11/02/24 18:15 11/06/24 08:52 Nicotine (*Pbkc) 14 Mg Patch TRANSDERM 1 patch DAILY ALBERTA Administration Ondansetron HCl 4 mg 11/01/24 08:23 Ondansetron Inj 4 Mg/2 Ml Vial IV PUSH Q4H PRN Nausea Oxycodone HCl 5 mg 11/01/24 18:01 11/06/24 10:01 Oxycodone Hcl (*Crx) 5 Mg Tab Ir PO 5 mg Q6H PRN Administration Pain 7-10 Pantoprazole Sodium 40 mg 11/02/24 09:00 11/06/24 08:45 Pantoprazole 40 Mg Tablet PO 40 mg Q12HR ALBERTA Administration Prednisone 40 mg 11/04/24 08:00 11/06/24 08:45 Prednisone 20 Mg Tablet PO 40 mg DAILY@0800 ALBERTA Administration Senna/Docusate Sodium 2 tab 11/01/24 18:01 11/04/24 15:47 Senna/Docusate Sodium Tablet PO 2 tab BID PRN Administration Constipation Solifenacin 5 mg 11/01/24 21:00 11/05/24 21:56 Solifenacin 5 Mg Tablet PO 5 mg HS ALBERTA Administration Umeclidinium/Vilanterol 1 puff 11/02/24 08:00 11/06/24 07:52 Umeclidinium/Vilanterol 62.5-25 Mcg Ellipta INHALATION 1 puff DAILYRT ALBERTA Administration Vitamin D 125 mcg 11/02/24 09:00 11/06/24 08:44 Cholecalciferol (Vitamin D3) 125 Mcg (5,000 Units) Tablet PO 125 mcg DAILY ALBERTA Administration Radiology Results: ITS Impressions Chest X-Ray 11/01/24 05:48 Impression: Suspected right upper lobe pneumonia with associated underlying chronic scarring. COPD. Chest CTA 11/01/24 08:00 Impression: No evidence of pulmonary embolus, aortic dissection, or aortic aneurysm. Significant worsening of patchy airspace consolidation and interstitial thickening overload, compatible significant worsening of pneumonia. Central right upper lobe airspace opacity with cavitary or cystic change is again present, which could reflect underlying neoplastic disease or treated disease versus pneumonia. Severe emphysema. ADDENDUM: 11/01/24 0840 2.7 cm enhancing hepatic lesion is partially imaged. Follow-up pre and postcontrast hepatic MR should be considered to better assess this lesion. Upper Quadrant Ultrasound 11/01/24 16:47 IMPRESSION: Findings within segment 4/5 of the liver for which malignancy is suspected. This focus is amenable to percutaneous biopsy. Liver Biopsy Ultrasound 11/02/24 18:52 IMPRESSION: 1. Technically successful ultrasound-guided core biopsy of a hyperechoic lesion within the liver. Labs Labs: Laboratory Results - last 24 hr 11/06/24 05:20 WBC 8.1 RBC 3.84 L Hgb 11.7 L Hct 37.2 MCV 96.9 MCH 30.5 MCHC 31.5 L RDW 11.8 Plt Count 200 MPV 9.3 Sodium 140 Potassium 4.3 Chloride 101 Carbon Dioxide 36 H Anion Gap 3 L BUN 17 Creatinine 0.68 L Estim Creat Clear Calc 41 Estimated GFR > 60 Glucose 92 Calcium 9.3 Total Bilirubin 0.2 AST 21 ALT 16 Alkaline Phosphatase 66 Total Protein 6.2 L Albumin 3.2 L
--- NOTE | 2024-11-06 19:00 | PC.NURSE ---
On 11/06/24, the BLADDER CLEANER, Rosie Josue, provided care and completed [employer] documentation on this patient. I have reviewed the BLADDER CLEANER's documentation and agree with the findings.
[2024-11-06] MEDS: LOVASTATIN 20 MG TABLET 40 MG PO (20:19)
[2024-11-06] MEDS: SOLIFENACIN 5 MG TABLET PO (20:19)
[2024-11-07] MEDS: oxyCODONE HCL (*CRX) 5 MG TAB IR PO ×2 (05:45→11:30)
[2024-11-07 06:00] VITALS: BP 128/60; PULSE 76; RESP 20; TEMP 36.4; O2SAT 100
[2024-11-07 06:20] LABS: Anion Gap 3 mmol/L (4-12); Blood Urea Nitrogen 17 mg/dL (7-17); Calcium 9.1 mg/dL (8.4-10.2); Carbon Dioxide 37 mmol/L (22-30); Chloride 98 mmol/L (98-107); Estimated CRCL calculation 43 ml/min; Estimated Glomerular Filt Rate > 60; Glucose 104 mg/dL (65-110); Magnesium 2.1 mg/dL (1.6-2.3); Potassium 4.7 mmol/L (3.4-5.0); Sodium 138 mmol/L (137-145)
[2024-11-07 08:30] VITALS: PULSE 76
[2024-11-07] MEDS: FERROUS SULFATE 325 MG TABLET DR BY MOUTH (08:30)
[2024-11-07] MEDS: METOPROLOL SUCCINATE EXT REL 25 MG TABCR BY MOUTH (08:30)
[2024-11-07] MEDS: PANTOPRAZOLE 40 MG TABLET PO (08:30)
[2024-11-07] MEDS: guaiFENesin 12 HR 600 MG TABCR 1200 MG PO (08:30)
[2024-11-07] MEDS: CYCLOBENZAPRINE HCL 5 MG TABLET PO (08:30)
[2024-11-07] MEDS: CHOLECALCIFEROL (VITAMIN D3) 125 MCG (5,000 UNITS) TABLET PO (08:30)
[2024-11-07] MEDS: LORATADINE 10 MG TABLET PO (08:31)
[2024-11-07] MEDS: GABAPENTIN 300 MG CAPSULE PO (08:31)
[2024-11-07] MEDS: ASPIRIN 81 MG ENTERIC TABLET PO (08:31)
[2024-11-07] MEDS: NICOTINE (*PBKC) 14 MG PATCH 1 PATCH TRANSDERM (08:34)
[2024-11-07] MEDS: UMECLIDINIUM/VILANTEROL 62.5-25 MCG ELLIPTA 1 PUFF INHALATION (09:04)
--- NOTE | 2024-11-07 10:32 | P.PNPL_ITS ---
Progress Note: A&P Assessment and Plan (1) Acute on chronic respiratory failure: Qualifiers: Respiratory failure complication: hypoxia and hypercapnia Qualified Code(s): J96.21 - Acute and chronic respiratory failure with hypoxia; J96.22 - Acute and chronic respiratory failure with hypercapnia Code(s): J96.20 - Acute and chronic respiratory failure, unspecified whether with hypoxia or hypercapnia Status: Acute Assessment and Plan: Download from [facility], and [facility], 09/04/2024 through 10/03/2024:? BiPAP no rate.? Inspiratory pressure 9, expiratory pressure 4. ?Total usage days 53%. ?Usage days greater than or equal to 4 hours was 40%.? Average usage on days used 5 hours and 25 minutes.? AHI 0.5.? Apnea index 0.4, hypopnea index 0.1.? Central apnea index 0.1.? Median leak 0.6.? Ninety-fifth percentile leak 10.9.? Maximal leak 35.8.? Median tidal volume 446.? Median respiratory rate 17.? Median minute ventilation 7.7.? I interpret this download as poor compliance, adequate pressures and low leak. Of note, no usage after 09/26/2024. Patient has been using no oxygen at rest and 2 L with activity. Continues to try to wear BiPAP at night with 2 L bleed in 10/21/2024: The patient did not have desaturations at rest on room air and did not have desaturations with ambulation on 2 L nasal cannula.. 11/04/24: She is normally only requires oxygen 2 L with exertion and with sleep, this admission required oxygen at rest 2-3 liters/minute. This is due to her acute illness. She has had hypercapnia dating back to 07/07/2019, her highest pCO2 on a blood gas was this past September,September 05, 2024 with a pCO2 of 70.7. She uses oxygen at home 2 L a minute at night. Will wean her oxygen as tolerated and perform a home oxygen evaluation prior to her discharge.She is on 2 L today, saturation 94-97%. 11/07/24: I have been able to decrease the patient to room air today. Patient has pulse oximeter at home. Plan: I have told the patient to adjust her oxygen to maintain saturations 90- 94%. She will do this at rest and with activity during the day. She will continue her BiPAP machine as tolerated at night with 2 L bleed in. She is also using BiPAP during the day. From a pulmonary perspective patient is ready to be discharged on these pulmonary medications: Stiolto Respimat 2.5-2.5 at 2 puffs q.day. Albuterol 2 puffs q.4 hours p.r.n. shortness of breath or wheezing. Albuterol 2.5 mg nebs q.4 hours p.r.n. shortness of breath or wheezing. Guaifenesin 1200 mg p.o. b.i.d. Flonase 1 spray each nostril b.i.d. p.r.n. nasal congestion. Oxygen to maintain sats 90-94%, previously she required no oxygen at rest and 2 L with activity on 10/21/2024 When she naps or sleeps BiPAP no rate, pressures 9/4 with 2 L bleed in. Follow-up in the Pulmonary Clinic with previously scheduled visit on 01/24/2025. Patient will call the clinic should she have any pulmonary issues as an outpatient. Discussed with Dr. Watts, will sign off, call with questions. (2) Cavitary lesion of lung: Code(s): J98.4 - Other disorders of lung Status: Acute Assessment and Plan: She has had an evolving right upper lobe scar/density over the last several CT scans now with a cavity. I looked at her CT scans from August 31 2024, CTA, October 21 and November 01. The overall lesion is larger and more cavitary. The differential includes malignancy, fungal, non tuberculous and tuberculous mycobacteria, autoimmune, she has Raynaud's an a diagnosis of RA which can cause cavitary lung nodules. In general these resolved on their own without treatment. The patient has been treated for pneumonia multiple times in the last few months. She had liver biopsy today, and if this result is hepatocellular carcinoma, we could do out patient PET scan, or consider further evaluation fo the RUL cavitatory lesion. Would be unlikely to have 2 new primaries, liver & lung; may be a primary of either organ with mets to the other. 11/07/2024: I spoke to the pathologist and the final interpretation of her liver biopsy is not expected for 1-2 more days. Plan: Will follow results as an outpatient. oncology has seen the patient during this hospitalization will follow-up as an outpatient. (3) ILD (interstitial lung disease): Code(s): J84.9 - Interstitial pulmonary disease, unspecified Status: Acute Assessment and Plan: She has had evidence of interstitial lung disease dating back to at least 2018 and she has rheumatoid arthritis so her ILD is related to her autoimmune condition. She has Raynaud phenomenon fingertips associated with RA. (4) History of tobacco abuse: Code(s): Z87.891 - Personal history of nicotine dependence Status: Acute Assessment and Plan: She continues to smoke, smoked 2 days prior to admission. Tobacco cessation was strongly stressed, and of course she can not smoke while she is in the hospital. We discussed tobacco cessation today. Is necessary for her survival. She has recurrent admissions and decompensations that are difficult to manage, jeffery with on-going smoking tobacco. Start Nicotine patches 14 mg tomorrow am November 03. 11/07/2024: I reinforced that the patient needs to quit smoking. She will attempt to do this. (5) Right upper lobe pneumonia: Qualifiers: Pneumonia type: due to unspecified organism Qualified Code(s): J18.9 - Pneumonia, unspecified organism Code(s): J18.9 - Pneumonia, unspecified organism Status: Acute Assessment and Plan: Recurrent pneumonias, several recent admission. * 09/01/24 modified barium swallow; Trace penetration without aspiration. 11/07/2024: Patient with lung cancer and large in Lung Mass likely representing recurrent cancer. will continue treatment for possible bacterial infection and she has received 6 days of ceftriaxone and will discharged on Levaquin 750 mg p.o. q.day x4 days. (6) Pulmonary cachexia due to chronic obstructive pulmonary disease: Code(s): R64 - Cachexia; J44.9 - Chronic obstructive pulmonary disease, unspecified Status: Acute Assessment and Plan: 11/04/24: She has pulmonary cachexia due to chronic obstructive pulmonary disease as well as interstitial lung disease. Her smoking also though is increasing her metabolic rate, contributing to her unintentional weight loss. I talked with her about tobacco cessation as a means to help her maintain her body weight. She has supplemental protein drinks ordered. Subjective Date/time seen: 11/07/24 10:32 Interval history: 11/04/24 20:51 Interval history: November 01, 2024; new consult; Melyssa Mccall is a 69-year old woman followed in our practice most recent visit was 10/06/2024, she has recurrent pneumonias, hypertension, hyperlipidemia, SVT, the esophageal ring status post dilation, chronic sinusitis, COPD on home oxygen, chronic hypercapnic hypoxemic respiratory failure. She was in the hospital August 31 through September 07, has been on Levaquin and other antibiotics as an outpatient recently; she saw Dr. Newman in follow-up on October 06 and afterwards had a PFT showing a severe obstructive abnormality, hyperinflation severely decreased diffusion. Her 6 minute walk showed that she did not require supplemental oxygen at rest she does require 2 L a minute with exertion. She says that at home she felt like she just could not catch her breath. She was sweating, coughing and with each intense cough, she had pain initially in the right posterior chest and then it wraps around to the right anterior chest. She cannot expectorate her secretions very easily. Her last cigarette was 2 days prior to admission. She complains of crusting in her nose and scant bleeding from the nose. This may be due to nasal cannula O2. She does not have hemoptysis. She has lost from 137 lb to 90 lb over the last 3 years. She has diffuse aches and pains. She has had no GI symptoms, nose specific sinus complaints, no sore throat or earache. Her saturation on admission is 99% on 2 liters/minute. November 02, 2024; She had the liver biopsy, ready to eat, she feels better, less coughing. She is interested in quitting smoking, and agreed to a nicotine patch. Now on 2 L, sat is 94-97%. November 04, 2024; on 2 L saturation is 95-99%. She feels better compared to admission, not as short of breath, coughing resolved. Liver biopsy results still pending. 11/07/2024: Patient tells me she is breathing 95% back to her baseline. She has no phlegm and no cough. She denies hemoptysis. She is afebrile. S aturations on 2 L 98%. I decreased her to room air and saturations remain 94%. patient states she feels ready to be discharged. DATA * sodium 136, potassium 4.0, chloride 98, carbon dioxide 33, BUN 14, , creatinine 0.52, glucose 111k, white blood cell count 7.2 k with 76% awga, hemoglobin 13.1 grams/deciliter, hematocrit 41.1%, platelets 202k, 3 flat troponins, serology negative for influenza A, B, RSV and SARS-CoV-2 * 11/01/[address] = She has a 2.7 cm hepatic lesion. No evidence of pulmonary embolus, aortic dissection, or aortic aneurysm. Significant worsening of patchy airspace consolidation and interstitial thickening overload, compatible significant worsening of pneumonia. Central right upper lobe airspace opacity with cavitary or cystic change is again present, which could reflect underlying neoplastic disease or treated disease versus pneumonia. Severe emphysema. document embedded image Since she was last admitted, she had a PFT & 6MW; * 10/21/24 PFT; severe obstructive abnormality, no change after albuterol; increased RV consistent with hyperinflation from an obstructive abnormality. The diffusing capacity unadjusted for hemoglobin and carboxyhemoglobin is severely decreased and remains severely decreased when adjusted for alveolar volume. In comparison to previous pulmonary function testing on 12/14/2019 there has been a greater than anticipated time dependent decrease in the FVC, FEV1 and diffusing capacity. There has been a greater than anticipated time dependent increase in the functional residual capacity and residual volume with no significant change in the total lung capacity. Clinical correlation is recommended. * 10/21/24 6MW; patient did not require supplemental oxygen at rest, require 2 L with exertion. = = = = = = = = = = = HISTORY = = = = = = = = = = = HISTORY = = = = = = = = = = = 10/27/24 phone call, Dr Newman spoke with the patient. We reviewed her CT scan results, PFT results and 6 minute walk test results. I informed her that she needs no oxygen at rest and 2 L with activity, her PFTs show a severe obstructive abnormality which is worse since 12/14/[address] scan shows worsening right upper lobe mass consistent with atelectasis, mucus or pneumonia. She continues to smoke 10-15 cigarettes a day. I have told her her disease is continuing to progress and that is absolutely necessary for her to quit. She will try to use nicotine patches and behavior modification. She does not wish for Chantix. Patient has 2-3 days of feeling hot and cold, increased mucus production worsening shortness of breath. She is not wheezing. She has no in known exposures to COVID or other sick people. the patient just finished Flagyl and Levaquin about 09/14/2024. The patient has responded to azithromycin in the past And I prescribed a Z-Pasquale. I told the patient to call us if she did not clinically improve. She voiced understanding. 10/21/24; Chest CT without Contrast: Clinical Indication: COPD Technique: Contiguous sections were acquired throughout the chest without intravenous contrast. Dose reduction technique was used on this scan by utilizing automated exposure control and iterative reconstruction technique. The dose-length product (DLP) was 140.62 mGy-cm. COMPARISON: 08/31/2024 Findings: There is no evidence of any significant mediastinal, hilar or axillary lymphadenopathy. There are extensive atherosclerotic calcifications of the aorta and coronary arteries. There is no evidence of pleural or pericardial effusion. Chronic biapical scarring and calcification noted. There is severe emphysema. Irregular consolidation with cystic or cavitary change in the right upper lobe is probably minimally increased in extent from prior exam. Images through the upper abdomen reveal no abnormalities. Impression: Irregular right upper lobe consolidation with cystic or cavitary changes, mildly increased in extent from prior exam. This is compatible with persistent and mildly worsening pneumonia. Underlying neoplastic disease not completely excluded. Severe emphysema stable biapical scarring and pleural calcification the lung apices. 10/21/24: This is a pulmonary function test with pre and post-bronchodilator spirometry, plethysmography and diffusing capacity. The test was performed and results interpreted in accordance with the 2019 and 2005 ATS/ERS Task Force guidelines respectively using the Global Lung Function Initiative-2012 reference equations. Patient demonstrated good effort and cooperation. Reproducibility criteria were met. The quality of the pre bronchodilator spirometry maneuver was Grade A and post bronchodilator spirometry maneuver was Grade A. Of note, patient was very lethargic during the testing and had to wake herself up numerous times. Findings: Spirometry: There is decreased maximal expiratory airflow at all lung volumes with concave expiratory flow tracing. The contour the inspiratory flow tracing is normal. The pre bronchodilator FVC is 2.53 L, 81% predicted. The pre bronchodilator FEV1 is 0.85 L, 36% predicted. The pre bronchodilator FEV1: FVC ratio is 34%. The post bronchodilator FVC is 2.46 L, representing a 3% decrease. The post bronchodilator FEV1 is 0.88 L, representing a 4% increase. The post bronchodilator FEV1: FVC ratio is 36%. Plethysmography: The total lung capacity is 6.36 L, 116% predicted. The functional residual capacity is 5.05 L, 160% predicted. The residual volume is 3.75 L, 159% predicted. The residual volume: Total lung capacity ratio is 59%. Diffusing capacity: The diffusing capacity unadjusted for hemoglobin and carboxyhemoglobin is 4.2, 19% predicted. The diffusing capacity adjusted for alveolar volume is 1.23, 30% predicted. In comparison to previous pulmonary function testing on 12/14/2019 the post bronchodilator FVC has decreased from 3.45 L to 2.46 L. The post bronchodilator FEV1 is decreased from 1.69 L to 0.88 L. The total lung capacity is unchanged from 6.05 L to 6.36 L. The functional residual capacity is increased from 3.94 L to 5.05 L. The residual volume has increased from 2.92 L to 3.75 L. The diffusing capacity unadjusted for hemoglobin and carboxyhemoglobin is decreased from 6.7 to 4.2. The diffusing capacity adjusted for alveolar volume has decreased from 1.50 to 1.23. Impression: There is a severe obstructive abnormality. There is no significant improvement after inhaling a single dose of albuterol. The increase in residual volume to total lung volume ratio is consistent with hyperinflation from an obstructive abnormality. The diffusing capacity unadjusted for hemoglobin and carboxyhemoglobin is severely decreased and remains severely decreased when adjusted for alveolar volume. In comparison to previous pulmonary function testing on 12/14/2019 there has been a greater than anticipated time dependent decrease in the FVC, FEV1 and diffusing capacity. There has been a greater than anticipated time dependent increase in the functional residual capacity and residual volume with no significant change in the total lung capacity. Clinical correlation is recommended. 10/21/24: This is a 6 minute walk test. The test was performed and interpreted in accordance with the 2014 ERS/ATS task force guidelines. Of note, patient use 2 liters/minute with activity and used a walker for stability Findings: The patient's resting room air oxygen saturation measured by pulse oximetry was 96%, the heart rate was 94 bpm, and the modified Naomi dyspnea score was 0. Patient ambulated using 2 L nasal cannula for 244 meters and oxygen saturation remained 92 to 93%. At the end of the study the heart rate was 100 bpm and the modified Naomi dyspnea score was 2. The patient did not have desaturations at rest on room air and did not have desaturations with ambulation on 2 L nasal cannula.. There are no prior studies for comparison. Collectively this demonstrates she has a severe obstructive abnormality consistent with GOLD grade 3 COPD, with hyperinflation and a severely decreased DLCO and compared to 12/14/2019 there has been significant decrease in the FVC, FEV1 and diffusing capacity with a significant increase in the functional residual capacity and residual volume all consistent with worsening COPD. The patient continues to smoke. The patient needs no oxygen at rest, 2 L with activity. 10/21/[address] scan of the chest from 12/08/2023, 08/02/2024, 08/31/2024 and 10/21/2024 with the radiologist. she has worsening right upper lobe low-attenuation lung nodule consistent with atelectasis, mucous retention or pneumonia in area was previous severe panlobular emphysema. Given the appearance and I rapidity of these changes it is very unlikely that this is cancer. I called the patient to discuss these results with her and left a voice message for her to call the clinic. 10/06/2024: This is the 1st pulmonary clinic encounter following inpatient hospital consultation for COPD with hypercarbic respiratory failure discharged on BiPAP. 69-year-old with a history of hypertension, hyperlipidemia, SVT, the esophageal ring status post dilation, chronic sinusitis, GOLD grade 2 group E COPD on home oxygen and NIV. Patient admitted to [facility] from 08/31/2024 through 09/07/2024 for COPD and pneumonia with hypercarbic respiratory failure. ABG on 08/02/2024 of 7.45/60/128 on 2 L nasal cannula and a blood gas on 09/06/2023 of 7.34/71/ 63 on 2 L nasal cannula. Patient was treated for COPD and pneumonia with Levaquin, Flagyl, DuoNebs and guaifenesin. For her hypercarbic respiratory failure she had [facility] insurance and was approved for BiPAP no rate, IPAP 9, EPAP 4 in 2 L bleed in. This provided adequate oxygenation by overnight oximetry and ABG at the end of the night of 7.40/52/64. She was discharged on Levaquin for 7 days, Flagyl for 5 days, Stiolto Respimat and rescue albuterol. She was to continue guaifenesin 600 p.o. b.i.d., Cornet flutter valve and home O2 assessment demonstrated she required 2 L at rest and 2 L with activity. Plan was for follow-up in the Pulmonary Clinic in 4 weeks for compliance check and to reassess her for CT scan to follow her right upper lobe infiltrate. 09/20/2024: EGD esophagitis was normal. Nonobstructing ring with dilatation. 09/29/2024: PCP office visit note. 2 L nasal cannula saturation 93%. Weight 90 lb. Respiratory medicines include guaifenesin 600 mg p.o. q.12 hours. Albuterol inhaler p.r.n., albuterol nebulizer p.r.n., Stiolto Respimat, Flonase nasal spray 1 b.i.d. p.r.n. Today she tells me that She has had no hospitalizations or exacerbations since discharge on 09/07/2024. Overall the patient has done good. For the last week she has felt well and back close to her normal. She says she is breathing at 95% back to her normal and she is walking more. She says 1 year ago she could walk 4 blocks. Before she got sick she could walk 2 blocks and since leaving the hospital she has gotten stronger and can now walk 1 block. Her appetite has improved and she has gained 1 lb at home. Her weight today is 88.5. The patient is using Stiolto Respimat at 2 puffs q.a.m., rescue albuterol inhaler 1 time a day. Rescue albuterol nebulizer 1 time a day. Guaifenesin 1200 mg p.o. b.i.d.. Flonase 1 spray each nostril once a day. Claritin p.r.n.. She says her sinuses are controlled. as prescribed, the patient is wearing 2 L at oxygen at rest with saturations 92%. The patient is using 2 L with activity with saturations ranging 66-90%. She is using 2 L bleed in at night. The patient continues to smoke and she smoked 5 cigarettes yesterday. she has quit previously and tells me she will quit again. She has nicotine patches at home and will use ease. The patient is taking THC gummies. Patient's CAT score today is 19. The patient is wearing her BiPAP with an over the mouth under the nose mask with 2 L bleed in. the patient tells me she wore the mask more faithfully and said that this did help her during the day and she felt as if she could take deeper breaths. She has had some family stressors and has not worn the machine over the last week or so. Download from [facility], and [facility], 09/04/2024 through 10/03/2024: BiPAP no rate. Inspiratory pressure 9, expiratory pressure 4. Total usage days 53%. Usage days greater than or equal to 4 hours was 40%. Average usage on days used 5 hours and 25 minutes. AHI 0.5. Apnea index 0.4, hypopnea index 0.1. Central apnea index 0.1. Median leak 0.6. Ninety-fifth percentile leak 10.9. Maximal leak 35.8. Median tidal volume 446. Median respiratory rate 17. Median minute ventilation 7.7. I interpret this download as poor compliance, adequate pressures and low leak. Of note, no usage after 09/26/2024. DATA: 09/07/2024: Home O2 assessment: Rest room air saturation 86%. Rest nasal cannula 1 L saturation 88%. Rest nasal cannula 2 L saturation 91%. Exercise nasal cannula 2 L saturation 90%. Patient requires 2 L with rest and 2 L with activity. 09/07/24: Patient wore her home BiPAP no rate, IPAP 9, EPAP 4 and 2 L bleed in with an over the mouth under the nose mask. She said she wore the mask for 6-1/2 hours and slept well and feels refreshed this morning. Overnight oximetry on these settings with recording duration of 6 hours and 52 minutes, average saturation 92%. Low saturation 87%. Time with saturation less than or equal to 88% was 3 minutes. Oxygen desaturation index 0.6. Patient had ABG at the end of the night on these settings with a pH of 7.40/52/64. 08/31/24: EXAMINATION: CTA chest PE protocol DATE: 08/31/2024 11:02 INDICATION: Shortness of breath TECHNIQUE: Computed tomography (CT) pulmonary angiogram of the chest was performed with 100 mL Omnipaque-350 intravenous contrast. Additional 3D reconstructions utilizing coronal maximum intensity projection (MIP) were performed. Automated exposure control and iterative reconstruction technique were employed. The dose-length product was 151.66 mGy-cm. COMPARISON: 08/02/2024 and 12/08/2023 FINDINGS: No pulmonary embolism. Severe emphysema with chronic partially calcified by apical pleural-parenchymal scarring. There is been some progression of low- attenuation fluid/mucus within several of the cystic airspace in the right upper lobe which are new since 12/08/2023 consistent with pneumonia. Unchanged chronic reticulonodular opacities with a few small calcified nodules in the basilar right middle lobe and lingula consistent with sequela of chronic pneumonia. No pleural effusion. Heart size is normal. Atherosclerotic coronary artery calcific lesion. No pericardial effusion. Thoracic aorta is normal in caliber. No pathologically enlarged thoracic lymphadenopathy. 1 cm cyst and 13 x 5 x 3 mm nonobstructing stone at the upper pole the left kidney. There is scattered cortical scarring in the right kidney consistent with sequela of prior infection or infarction. Additional 2 mm nonobstructing stone at the lower pole of the right kidney. Mild thoracic spondylosis with chronic minimal anterior wedging of a few mid and lower thoracic vertebral bodies. Spinal stimulator leads which terminate at the posterior central canal at the level of T6-T7. IMPRESSION: 1. No pulmonary embolism. 2. Severe emphysema with right upper lobe pneumonia. 3. Bilateral nonobstructing nephrolithiasis. --------- 10/27/2022 EXAMINATION: CT lung screening INDICATION: Personal history of nicotine dependence, current smoker with 50 pack year history COMPARISON: 10/25/2021 FINDINGS: There is severe emphysema. There is a stable 5 mm nodule of the left upper lobe. There is stable 3 mm nodule of the right upper lobe. The lungs are free of acute opacities. No pleural effusion or pneumothorax. There is scarring and calcification of the lung apices. Calcified coronary artery atherosclerosis is noted. No pathologically enlarged thoracic lymph nodes are identified. The heart size is normal. There is mild thoracic spondylosis. IMPRESSION: 1. Lung-RADS category 2: Benign appearance or behavior. Continue annual screening with noncontrast low-dose chest CT in 12 months. 12/19/2019 PULMONARY FUNCTION TESTS Results are reliable and reproducible. Spirometry: FEV1 is 60%, moderately decreased, 1.49 L. FVC is 90% normal. Decreased FEV1% consistent with airflow obstruction. . There is a 14% increase in FEV1 with bronchodilator, 200 ml, which is significant. Lung volumes: Total lung capacity 107% normal. RV/TLC increased 48% and consistent with air trapping. Airway resistance increased 336%. Diffusion: DLCO moderately reduced 35%. Flow volume loop: Scooping of the expiratory limb. IMPRESSION: Moderate obstructive ventilatory impairment with good response to bronchodilator, air trapping, moderate diffusion impairment. This is consistent with COPD. 11/23/2019: Alpha 1 anti trypsin genotype MM. Alpha 1 anti trypsin level 160, normal. Review of Systems Constitutional: Constitutional: Reports no additional constitutional complaints Eyes: Eyes: Reports no additional eye complaints ENT: Reports system reviewed and no additional complaints, except as documented Cardiovascular: Cardiovascular: Reports no additional cardiovascular complaints Respiratory: Respiratory: Reports no additional respiratory complaints Gastrointestinal: Gastrointestinal: Reports no additional gastrointestinal complaints Musculoskeletal: Musculoskeletal: Reports no additional musculoskeletal complaints Neurologic: Reports system reviewed and no additional complaints, except as documented Psychiatric: Psychiatric: Reports no additional psychiatric complaints Endocrine: Endocrine: Reports no additional endocrine complaints Hematologic/Lymphatic: Hematologic/Lymphatic: Reports no additional hematologic/lymphatic complaints Allergic/Immunologic: Allergic/Immunologic: Reports no additional allergic/immunologic complaints Exam Const: General: cooperative, healthy appearing and comfortable Orientation/consciousness: oriented to person, oriented to place and oriented to time HENMT: Head: normal to inspection Ears: hearing grossly normal bilaterally Eyes: General: appearance normal, both eyes and all related structures Neck: Neck: normal visual inspection Chest: Chest palpation & inspection: normal inspection of the chest Resp: Effort & Inspection: normal respiratory effort and able to speak in complete sentences Auscultation: no crackles, no rales, no rhonchi, no wheezes and diminished lung sounds Cardio: Jugular venous distension: no JVD GI: Inspection: normal to inspection GI Palp: No abdominal tenderness Skin: General skin exam: normal color Neuro: General: oriented to person, oriented to place and oriented to time Extrem: General: normal to inspection Psych: Appearance: grossly normal Objective Data Vital Signs Vital Signs: Vital Signs - 24 hr 11/06/24 11:01 11/06/24 14:00 11/06/24 20:20 Temperature 36.9 C 36.4 C Pulse Rate 83 89 Respiratory Rate 18 20 Blood Pressure 111/56 L Pulse Oximetry 96 94 Oxygen Delivery Nasal Cannula Oxygen Flow Rate 2 11/06/24 21:16 11/07/24 06:00 11/07/24 08:30 Temperature 36.4 C 36.4 C Pulse Rate 89 76 76 Respiratory Rate 20 20 Blood Pressure 124/62 128/60 Pulse Oximetry 94 100 Oxygen Delivery Oxygen Flow Rate Intake/Output Intake/Output: Intake & Output 11/04/24 11/05/24 11/06/24 11/07/24 23:59 23:59 23:59 23:59 Intake Total 1196 770 770 560 Balance 1196 770 770 560 Meds/Results Medications: Active Medications Generic Name Dose Route Start Last Admin Trade Name Freq PRN Reason Stop Dose Admin Acetaminophen 650 mg 11/01/24 08:23 11/04/24 02:12 Acetaminophen 325 Mg Tablet PO 650 mg Q4H PRN Administration Mild Pain (1-3) or Fever Albuterol 2.5 mg 11/01/24 15:29 Albuterol Sulfate Neb 2.5 Mg/3 Ml Inh INHALATION Q4HRT PRN shortness of breath Albuterol 1 puff 11/01/24 15:29 11/05/24 09:13 Albuterol Sulfate (*Sp) Aerosol 1 Puff INHALATION 1 puff Q4HRT PRN Administration Wheezing Aspirin 81 mg 11/02/24 09:00 11/07/24 08:31 Aspirin 81 Mg Enteric Tablet PO 81 mg DAILY ALBERTA Administration Cyclobenzaprine HCl 5 mg 11/01/24 21:00 11/07/24 08:30 Cyclobenzaprine Hcl 5 Mg Tablet PO 5 mg Q12H ALBERTA Administration Enoxaparin Sodium 40 mg 11/03/24 09:00 11/06/24 08:52 Enoxaparin 40 Mg/0.4 Ml Syringe SUB-Q 40 mg DAILY ALBERTA Administration Ferrous Sulfate 325 mg 11/02/24 09:00 11/07/24 08:30 Ferrous Sulfate [address] BY MOUTH 325 mg DAILY ALBERTA Administration Fluticasone Propionate 1 spray 11/01/24 15:29 Fluticasone Propionate 0.05% Na Spr 16 Gm Btl (*Bkc) NASAL BID PRN nasal congestion Gabapentin 300 mg 11/01/24 21:00 11/07/24 08:31 Gabapentin 300 Mg Capsule PO 300 mg Q12H ALBERTA Administration Guaifenesin 1,200 mg 11/01/24 21:00 11/07/24 08:30 Guaifenesin 12 Hr 600 Mg Tabcr PO 1,200 mg Q12H ALBERTA Administration Ceftriaxone Sodium 1 gm in 50 mls @ 100 mls/hr 11/02/24 06:00 11/07/24 05:44 Rocephin 1 Gm/Ns 50 Ml IVPB 100 mls/hr Q24H ALBERTA Administration Loratadine 10 mg 11/02/24 09:00 11/07/24 08:31 Loratadine 10 Mg Tablet PO 10 mg DAILY ALBERTA Administration Lovastatin 40 mg 11/01/24 21:00 11/06/24 20:19 Lovastatin 20 Mg Tablet PO 40 mg HS ALBERTA Administration Metoprolol Succinate 25 mg 11/02/24 09:00 11/07/24 08:30 Metoprolol Succinate Ext Rel 25 Mg Tabcr BY MOUTH 25 mg DAILY ALBERTA Administration Miscellaneous Information 1 each 11/01/24 00:01 11/05/24 16:38 Albuterol Nebs And Mdi Home Meds Have Duplicate Prn Indications. Please Clarify XX 12/01/24 00:00 Not Given [facility]IFY [facility] Nicotine 1 patch 11/02/24 18:15 11/07/24 08:34 Nicotine (*Pbkc) 14 Mg Patch TRANSDERM 1 patch DAILY ALBERTA Administration Ondansetron HCl 4 mg 11/01/24 08:23 Ondansetron Inj 4 Mg/2 Ml Vial IV PUSH Q4H PRN Nausea Oxycodone HCl 5 mg 11/01/24 18:01 11/07/24 05:45 Oxycodone Hcl (*Crx) 5 Mg Tab Ir PO 5 mg Q6H PRN Administration Pain 7-10 Pantoprazole Sodium 40 mg 11/02/24 09:00 11/07/24 08:30 Pantoprazole 40 Mg Tablet PO 40 mg Q12HR ALBERTA Administration Prednisone 40 mg 11/04/24 08:00 11/07/24 08:30 Prednisone 20 Mg Tablet PO 40 mg DAILY@0800 ALBERTA Administration Senna/Docusate Sodium 2 tab 11/01/24 18:01 11/04/24 15:47 Senna/Docusate Sodium Tablet PO 2 tab BID PRN Administration Constipation Solifenacin 5 mg 11/01/24 21:00 11/06/24 20:19 Solifenacin 5 Mg Tablet PO 5 mg HS ALBERTA Administration Umeclidinium/Vilanterol 1 puff 11/02/24 08:00 11/07/24 09:04 Umeclidinium/Vilanterol 62.5-25 Mcg Ellipta INHALATION 1 puff DAILYRT ALBERTA Administration Vitamin D 125 mcg 11/02/24 09:00 11/07/24 08:30 Cholecalciferol (Vitamin D3) 125 Mcg (5,000 Units) Tablet PO 125 mcg DAILY ALBERTA Administration Radiology Results: ITS Impressions Chest X-Ray 11/01/24 05:48 Impression: Suspected right upper lobe pneumonia with associated underlying chronic scarring. COPD. Chest CTA 11/01/24 08:00 Impression: No evidence of pulmonary embolus, aortic dissection, or aortic aneurysm. Significant worsening of patchy airspace consolidation and interstitial thickening overload, compatible significant worsening of pneumonia. Central right upper lobe airspace opacity with cavitary or cystic change is again present, which could reflect underlying neoplastic disease or treated disease versus pneumonia. Severe emphysema. ADDENDUM: 11/01/24 0840 2.7 cm enhancing hepatic lesion is partially imaged. Follow-up pre and postcontrast hepatic MR should be considered to better assess this lesion. Upper Quadrant Ultrasound 11/01/24 16:47 IMPRESSION: Findings within segment 4/5 of the liver for which malignancy is suspected. This focus is amenable to percutaneous biopsy. Liver Biopsy Ultrasound 11/02/24 18:52 IMPRESSION: 1. Technically successful ultrasound-guided core biopsy of a hyperechoic lesion within the liver. Labs Labs: Laboratory Results - last 24 hr 11/07/24 05:13 Sodium 138 Potassium 4.7 Chloride 98 Carbon Dioxide 37 H Anion Gap 3 L BUN 17 Creatinine 0.65 L Estim Creat Clear Calc 43 Estimated GFR > 60 Glucose 104 Calcium 9.1 Magnesium 2.1
--- NOTE | 2024-11-07 11:44 | P.DS_ITS ---
DS: Admitting Diagnosis Discharge Date 11/07/24 Admitting Diagnosis Shortness of breath DS: Discharge Diagnosis Discharge Diagnosis (1) Depression with anxiety: Code(s): F41.8 - Other specified anxiety disorders Status: Acute (2) Essential hypertension: Code(s): I10 - Essential (primary) hypertension Status: Chronic (3) Hyperlipidemia, unspecified: Qualifiers: Hyperlipidemia type: unspecified Qualified Code(s): E78.5 - Hyperlipidemia, unspecified Code(s): E78.5 - Hyperlipidemia, unspecified Status: Acute (4) Prediabetes: Code(s): R73.03 - Prediabetes Status: Acute (5) Vitamin D deficiency: Code(s): E55.9 - Vitamin D deficiency, unspecified Status: Acute (6) B12 deficiency: Code(s): E53.8 - Deficiency of other specified B group vitamins Status: Acute (7) Severe protein-calorie malnutrition: Code(s): E43 - Unspecified severe protein-calorie malnutrition Status: Acute (8) Gastroesophageal reflux disease without esophagitis: Code(s): K21.9 - Gastro-esophageal reflux disease without esophagitis Status: Acute (9) Esophageal stricture: Code(s): K22.2 - Esophageal obstruction Status: Acute (10) Adenomatous colon polyp: Code(s): D12.6 - Benign neoplasm of colon, unspecified Status: Acute (11) Peripheral neuropathy: Qualifiers: Peripheral neuropathy type: idiopathic neuropathy, unspecified Q ualified Code(s): G60.9 - Hereditary and idiopathic neuropathy, unspecified Code(s): G62.9 - Polyneuropathy, unspecified Status: Acute (12) RLS (restless legs syndrome): Code(s): G25.81 - Restless legs syndrome Status: Acute (13) Right upper lobe pneumonia: Code(s): J18.9 - Pneumonia, unspecified organism Status: Acute (14) Chronic respiratory failure with hypoxia: Code(s): J96.11 - Chronic respiratory failure with hypoxia Status: Acute (15) ILD (interstitial lung disease): Code(s): J84.9 - Interstitial pulmonary disease, unspecified Status: Acute (16) Oxygen dependent: Code(s): Z99.81 - Dependence on supplemental oxygen Status: Acute (17) Recurrent pneumonia: Code(s): J18.9 - Pneumonia, unspecified organism Status: Acute (18) Tobacco abuse: Code(s): Z72.0 - Tobacco use Status: Acute Plan Right upper lobe pneumonia recurrent pneumonia on right upper lobe with persistent consultation since August 02, 2024 which is new since 12/08/2023. Treated with multiple rounds of antibiotics. Recently has been treated with Levaquin and Flagyl. on ceftriaxone and azithromycin. These opacities seem worsened over time with significant cavitation and scarring. pulmonary team on board. sputum culture and Tb tests pending 2.7 cm enhancing hepatic lesion, S/p biopsy 11/02/24. Follow pathologyreport US: segment 4/5 of the liver for which malignancy is suspected Elevated CEA consulted oncology COPD exacerbation Chronic respiratory failure with hypoxia and hypercapnia BiPAP at night solumedrol switched to prednisone Rocephin and azithromycin home inhalers follow culture results pulm team on board Tobacco abuse History of esophageal stricture status post EGD and dilatation Severe calorie malnutrition Hypertension Hyperlipidemia Paroxysmal SVT on beta-valeriano Iron deficiency anemia Restless leg syndrome Fibromyalgia Rheumatoid arthritis RA factor was elevated at 22.4 MICKI screen was negative will check anti CCP Irritable bowel syndrome GERD Interstitial lung disease Anxiety depression DVT prophylaxis Code status full code Patient was seen and examined at bedside. she is feeling fine,denies any chest pain SOB, abd pain,N/V. Underwent biopsy of liver mass on 701/ CEA is elevated, Alpha protein is normal, seen by Dr. Gipson, oncologist suspect malignancy, will follow up on biopsy, Continue Iv Abx for pneumonia. seen by Dr. Tracey concerned patient may have autoimmune disease, patient has cavitatory in RUL and concerning for mycobacterium-Tb test for non tuberculosis mycobacterium, ordered by pulm team and pending. patient remains clinically stable and has no new complaints DS: Summary Hospital Course Hospital Course: Patient was seen and examined at bedside. she is feeling fine,denies any chest pain SOB, abd pain,N/V. Underwent biopsy of liver mass on 701/ CEA is elevated, Alpha protein is normal, seen by Dr. Gipson, oncologist suspect malignancy, will follow up on biopsy, Continue Iv Abx for pneumonia. seen by Dr. Tracey concerned patient may have autoimmune disease, patient has cavitatory in RUL and concerning for mycobacterium-Tb test for non tuberculosis mycobacterium, ordered by pulm team and pending. patient remains clinically stable and has no new complaints. today patient was seen by Dr. Flores, patient is clinically stable and can be discharged today. Time Spent with Patient Time attestation: Total time spent providing and/or coordinating discharge services: Exam 2 Narrative: Appears chronically ill and malnourished Patient is comfortable, NAD HEENT: eyes are clear and none icteric LUNGS:CTA HEART: RR S1S2 ABD: BS+, Soft and nontender Lower extremities: no edema SKIN: nonjaundiced Neuro: grossly intact. DS: Data Data Completed and Pending Pending studies at discharge: Pending at discharge 11/01/24 15:35 Cytology [PTH] Routine 11/02/24 17:20 Surgical [PTH] Routine Labs on day of discharge: Labs from last 24 hours 11/07/24 05:13 Sodium 138 Potassium 4.7 Chloride 98 Carbon Dioxide 37 H Anion Gap 3 L BUN 17 Creatinine 0.65 L Estim Creat Clear Calc 43 Estimated GFR > 60 Glucose 104 Calcium 9.1 Magnesium 2.1 Discharge Plan Discharge Attending physician on discharge: Keeley Simental Consulting providers: Melissa Tracey; Sebastian Gipson; Debbie Franklin; Keeley Simental; Noble Newman; Mike Momin; Valeria Anderson Discharging Clinician: Arnel Watts Patient Disposition: Home Activity: as tolerated Diet: heart healthy Discharge Instructions: patient to follow up with her oncologist and pulmonary doctors as scheduled, patient to follow up with her primary care provider as soon as possible, patient is instructed if any symptoms worsen to go to nearest ER. Patient Instructions: Antibiotic Form Patient Language: Turkish Stand Alone Forms: General Discharge Information Follow-up/Referrals: Sebastian Gipson MD [Physician] - Grace Mondragon DO [Primary Care Provider] - Melissa Tracey MD [Physician] - Discharge Medications: New sennosides-docusate sodium [Senokot-S] 8.6-50 mg Tablet 2 tab-cap PO BID PRN (Reason: Constipation) Qty: 120 0RF nicotine 14 mg/24 hr Patch 24 Hour 1 patch transdermal DAILY Qty: 28 0RF oxycodone 5 mg Tablet 5 mg PO Q4HR PRN (Reason: Pain 7-10) Qty: 15 0RF Continued aspirin [Adult Aspirin Regimen] 81 mg tablet,delayed release (DR/EC) 81 mg PO DAILY cyclobenzaprine 5 mg tablet 5 mg PO Q12H solifenacin [Vesicare] 10 mg tablet 5 mg PO HS albuterol sulfate 2.5 mg /3 mL (0.083 %) solution for nebulization 2.5 mg inhalation Q4-6H PRN (Reason: shortness of breath or wheezing) Qty: 180 3RF Xtampza ER 13.5 mg cap,sprinkl,ER12hr(DONT CRUSH) 13.5 mg PO Q12H albuterol sulfate 90 mcg/actuation HFA aerosol inhaler See Rx Instructions .ROUTE .COMPLEX PRN (Reason: Shortness Of Breath Or Wheezing) Rx Instructions: INHALE 1 PUFF BY MOUTH EVERY 4 HOURS NEEDED FOR SHORTNESS OF BREATH lovastatin 40 mg tablet 40 mg PO HS loratadine 10 mg Tablet 10 mg PO DAILY cholecalciferol (vitamin D3) [Vitamin D3] 125 mcg (5,000 unit) Tablet 125 mcg PO DAILY guaifenesin [Mucinex] 600 mg Tablet Extended Release 12hr 1,200 mg PO Q12H metoprolol succinate 25 mg tablet extended release 24 hr See Rx Instructions .ROUTE .COMPLEX Qty: 90 2RF Dose Instruction: TAKE 1 TABLET BY MOUTH DAILY Rx Instructions: TAKE 1 TABLET BY MOUTH DAILY- AM omeprazole 40 mg capsule,delayed release(DR/EC) 40 mg PO DAILY Qty: 90 1RF Rx Instructions: TAKE 1 CAPSULE BY MOUTH DAILY Stiolto Respimat 2.5-2.5 mcg/actuation mist See Rx Instructions .ROUTE .COMPLEX Qty: 4 11RF Dose Instruction: INHALE 2 PUFFS BY MOUTH DAILY Rx Instructions: INHALE 2 PUFFS BY MOUTH DAILY fluticasone propionate [Flonase Allergy Relief] 50 mcg/actuation spray,suspension 1 spray intranasal BID PRN (Reason: nasal congestion) Qty: 16 3RF Rx Instructions: administer into each nostril gabapentin 300 mg capsule 300 mg PO Q12H Qty: 180 0RF ferrous sulfate [FeroSul] 325 mg (65 mg iron) tablet See Rx Instructions .ROUTE .COMPLEX Qty: 30 3RF Dose Instruction: TAKE 1 TABLET BY MOUTH EVERY MORNING Rx Instructions: TAKE 1 TABLET BY MOUTH EVERY MORNING Date of admission: 11/02/24 10:14 Primary Care Provider: Grace Mondragon Admitting Provider: Vipul Correa Attending physician on admission: Arnel Watts Condition: Stable
[2024-11-07] MEDS: ENOXAPARIN 40 MG/0.4 ML SYRINGE SUB-Q (12:42)
[2024-11-09 09:34] LABS: NIL 0.01 IU/mL; Quantiferon TB Plus, 1T NEGATIVE (NEGATIVE); TB1-NIL 0.01 IU/mL; TB2-NIL 0.01 IU/mL
== END 2024-11-07 13:15 | disposition home or self-care (01) | DRG 193 ==
LOC: ANHED 08:36 → ANH3MEDSUR 08:36
PROVIDERS: Internal Medicine; Internal Medicine Critical Care Medicine; Radiology Diagnostic Radiology; Admitting Provider Internal Medicine; Emergency Provider Student in an Organized Health Care Education/Training Program; PCP Family Medicine; Visit Provider Family Medicine
DX: J18.9 Pneumonia, unspecified organism (principal); E43 Unspecified severe protein-calorie malnutrition; J44.0 Chronic obstructive pulmonary disease with (acute) lower respiratory infection; J96.11 Chronic respiratory failure with hypoxia; I47.10 Supraventricular tachycardia, unspecified; G37.9 Demyelinating disease of central nervous system, unspecified; R64 Cachexia; Z68.1 Body mass index [BMI] 19.9 or less, adult; D50.9 Iron deficiency anemia, unspecified; I10 Essential (primary) hypertension; K58.9 Irritable bowel syndrome, unspecified; K21.9 Gastro-esophageal reflux disease without esophagitis; E78.5 Hyperlipidemia, unspecified; E55.9 Vitamin D deficiency, unspecified; E53.8 Deficiency of other specified B group vitamins; K22.2 Esophageal obstruction; R13.10 Dysphagia, unspecified; R73.03 Prediabetes; Z20.822 Contact with and (suspected) exposure to COVID-19; M54.16 Radiculopathy, lumbar region; M85.80 Other specified disorders of bone density and structure, unspecified site; M19.90 Unspecified osteoarthritis, unspecified site; M06.9 Rheumatoid arthritis, unspecified; M35.9 Systemic involvement of connective tissue, unspecified; M79.7 Fibromyalgia; G25.81 Restless legs syndrome; G62.9 Polyneuropathy, unspecified; F41.9 Anxiety disorder, unspecified; F17.210 Nicotine dependence, cigarettes, uncomplicated; Z99.81 Dependence on supplemental oxygen; Z79.82 Long term (current) use of aspirin; Z79.899 Other long term (current) drug therapy; Z87.11 Personal history of peptic ulcer disease; Z80.0 Family history of malignant neoplasm of digestive organs; Z86.0101 Personal history of adenomatous and serrated colon polyps; Z96.82 Presence of neurostimulator
CPT/HCPCS: 36415; 47000; 71046; 71275; 76705; 76942; 80048; 80053; 82105; 82378; 83735; 84484; 85025; 85027; 85380; 85610; 85652; 85730; 86140; 86200; 86480; 87040; 87070; 87205; 87637; 88104; 88108; 88305; 88307; 88312; 88313; 88342; 93005; 94640; 96365; 96366; 96375; 97161; 97165; 99285; A9270; G0378; J0456; J0696; J1650; J2919; J7512; Q9967

== ENCOUNTER 2024-11-15 11:27 | Outpatient (CLI) | payer MEDICARE, MEDICAID, SELFPAY ==
--- NOTE | ~2024-11-15 | PE_ITS ---
EXAMINATION: PET skull to mid thigh DATE: 11/15/2024 14:01 INDICATION: Staging of hepatocellular carcinoma TECHNIQUE: Blood glucose level was not recorded. 10.566 mCi of 18-fluorodeoxyglucose (18-FDG) was adm inistered i.v. Low dose computed tomography (CT) images were acquired from the base of the brain to t he proximal thighs for attenuation correction and anatomic localization. Positron emission tomography (PET) images were acquired in the same distribution beginning 51 minutes after injection. Images inc luding fused PET/CT images were reconstructed in axial, coronal, and sagittal planes. Automated expos ure control technique was employed. The dose-length product was 481.20mGy-cm. COMPARISON: CT dated 11/01/2024 FINDINGS: Head/neck: There is symmetric increased activity in the oral cavity laryngeal muscles and ocular muscles without CT correlate, likely physiologic. No pathologically enlarged cervical lymphadenopathy or suspicious foci of increased FDG uptake in the visualized head or neck. Chest: Severe emphysema with consolidation with prominent increased FDG uptake throughout much of the right upper lobe consistent with pneumonia. Less dense reticulonodular opacities in the right lower lobe al so with some increased FDG uptake most consistent with pneumonia. Minimal right pleural effusion. Lef t lung is clear. Heart size is normal. Atherosclerotic coronary artery calcific lesions. No pericardi al effusion. There are multiple FDG avid right hilar and mediastinal lymph nodes with SUV values amy uring up to 5.2 more likely reactive related to pneumonia than metastatic. Abdomen/pelvis/proximal thighs: Physiologic renal accumulation and excretion of FDG activity in the kidneys, bladder and along portio ns of ureters. 7 mm nonobstructing stone in the left kidney. 2 mm nonobstructing stone at the lower p ole of the mildly atrophic right kidney. Normal degree and heterogenous pattern of increased uptake t hroughout the liver without radiologic correlate or dominant FDG avid lesion. The right hepatic lobe mass of concern located along the gallbladder fossa is essentially indiscernible both on the noncontr ast CT imaging as well as on the PET imaging with no relative increase or decreased uptake when patrick red with the surrounding liver. The gallbladder, pancreas, spleen and bilateral adrenal glands are no rmal. Mild uptake scattered throughout the bowels without radiologic correlate, also likely physiolog ic. The uterus is not identified and has likely been surgically resected. No other abnormal foci of i ncreased FDG uptake or pathologically enlarged lymphadenopathy in the abdomen, pelvis or proximal thi ghs. Musculoskeletal: There is diffuse mild marrow activity which may be physiologic such as in the setting of anemia given the relatively diffuse distribution in the absence of any corresponding concerning lytic or blastic bone lesions. Spinal stimulator lead extends in a central canal the mid thoracic spine. IMPRESSION: 1. Biopsied mass in the right hepatic lobe essentially indiscernible on both the noncontrast CT image s as well as on PET imaging indicating a relatively low degree of FDG uptake which would decrease sen sitivity for assessment for metastatic disease. 2. Multifocal pneumonia the right lung with consolidation and large portion of the right upper lobe. 3. Multiple mildly FDG avid right hilar and mediastinal lymph nodes which given distribution are like ly reactive related to the pneumonia in the right lung. These are difficult to image on the noncontra st CT images and would consider 3 month follow-up with contrast-enhanced chest CT. 4. Diffuse mild marrow uptake most likely physiologic given the absence of associated lytic or blasti c bone lesions. Reviewed, dictated and finalized at location A. IMPRESSION: 1. Biopsied mass in the right hepatic lobe essentially indiscernible on both th e noncontrast CT images as well as on PET imaging indicating a relatively low d egree of FDG uptake which would decrease sensitivity for assessment for metasta tic disease. 2. Multifocal pneumonia the right lung with consolidation and large portion of the right upper lobe. 3. Multiple mildly FDG avid right hilar and mediastinal lymph nodes which given distribution are likely reactive related to the pneumonia in the right lung. T hese are difficult to image on the noncontrast CT images and would consider 3 m onth follow-up with contrast-enhanced chest CT. 4. Diffuse mild marrow uptake most likely physiologic given the absence of asso ciated lytic or blastic bone lesions.
--- OUTSIDE RECORDS SUMMARY | 2024-11-15 11:40 | XMS_ITS | Continuity of Care Document ---
Author Organization [facility] Address [address] [place] [address] Phone Care Team Providers Care Game Tester Name Role Phone Sherif Doyle MD Unavailable Unavailable Allergies, Adverse Reactions, Alerts Substance Reaction Status Criticality PENICILLIN G POTASSIUM Active No In formation MEPERIDINE HCL Active No Informatio n Medications Medication Instructions Dosage Effective Dates (start - stop) Status Comments METHADOSE 5 MGTABLET tk 2 ts qd - Acti ve Lidoderm 5 % (700 mg/patch) Adhesive Patch - Active Miacalcin 200 unit/Actuation Nasal [place] Aerosol 1 spray each nostril qd - [...] on Encounter [facility], [address], [id number], [place] tel:[phone] [facility] No Information 6 Vivek Gorman. [address] [place] [address], [id number] , [place]. tel:[phone] Offic/outpt E&m Estab Minor 10 [facility], [address] [address], [place], [place], [id number], [place] tel:[phone] [facility] No Information 6 José Luis Sullivan. [address] [facility], [address], [id number] , [place]. tel:[phone] Referring Provider: Nate Ordonez V, [address], [address] . tel:[phone] [facility], [address], [place], [place], [id number], [place] tel:[phone] [facility] No Information 6 José Luis Sullivan. [address], [place], [place], [id number] , [place]. tel: [phone] Referring Provider: Nate Ordonez V, [address], [place], [address] . tel:[phone] [facility], [address], [place], [place], [address], [place] tel:[phone] [facility] No Information 6 José Luis Sullivan. [address], [address], [place], [place], [id number] , [place]. tel: [phone] Referring Provider: Nate Ordonez V, [address], [place], [address] . tel:[phone] Offic/outpt E&m Estab Low-mod [facility], [address], [place], [place], [id number], [place] tel:[phone] [facility] No Information 6 José Luis Sullivan. [address], [address], [place], [place], [id number] , [place]. tel:[phone] Referring Provider: Nate Ordonez V, [address], [place], [address] . tel:[phone] Offic/outpt E&m Estab Low-mod [facility], [address], [place], [place], [id number], [place] tel:[phone] [facility] No Information 6 José Luis Sullivan. [address], [address], [place], [place], [id number] , [place]. tel: [phone] Referring Provider: Nate Ordonez V, [address], [place], [address] . tel:[phone] Offic/outpt E&m Estab Minor 10 [facility], [address], [place], [place], [id number], [place] tel:[phone] [facility] No Information May-0 9-200 6 José Luis Sullivan. [address], [address], [place], [place], [id number] , [place]. tel:[phone] Referring Provider: Nate Ordonez V, [address], [place], [address] . tel:[phone] [facility], [address], [place], [place], [id number], [place] tel:[phone] [facility] No Information May-0 5-200 6 José Luis Sullivan. [address], [address], [place], [place], [id number] , [place]. tel:[phone] Referring Provider: Nate Ordonez V, [address], [place], [address] . tel:[phone] [facility], [address], [place], [place], [address], [place] tel:[phone] [facility] No Information May-0 2-200 6 José Luis Sullivan. [address], [address], [place], [place], [id number] , [place]. tel:[phone] Referring Provider: Nate Ordonez V, [address], [place], [address] . tel:[phone] [facility], [address], [place], [place], [id number], [place] tel:[phone] [facility] No Information Apr-2 8-200 6 Ordonez Nate. [address], [address], [place], [place], [id number] , [place]. tel:[phone] Referring Provider: Nate Ordonez V, [address], [place], [address] . tel:[phone] [facility], [address], [place], [place], [id number], [place] tel:[phone] [facility] No Information Aug- 5-200 6 José Luis Sullivan. [address], [place], [place], [id number] , [place]. tel:[phone] Referring Provider: Nate Ordonez V, [address], [place], [address] . tel:[phone] [facility], [address], [place], [place], [id number], [place] tel:[phone] [facility] NANC[facility] No Information 6 José Luis Sullivan. [address], [place], [place], [id number] , [place]. tel:[phone] Referring Provider: Nate Ordonez V, [address], [place], [address] . tel:[phone] [facility], [address], [place], [place], [address], [place] tel:[phone] [facility] NANCY No Information 200 6 José Luis Sullivan. [address], [place], [id number] , [place]. tel:[phone] Referring Provider: Nate Ordonez V, [address], [place], [address] . tel:[phone] Offic Cons New/estab Mod-hi 60 [facility], [address], [place], [place], [address], [place] tel:[phone] [facility]ANCY No Information 8-200 6 José Luis Sullivan. [address], [facility] [address], [place], [place], [id number] , [place]. tel:[phone] Referring Provider: Nicho Goldstein MD B, [address] [place], [address]. tel:[phone] Family History Family Member Type Diagnosis Age At Onset Gen Fam Hx Problem (finding) Cancer Gen Fam Hx Problem (finding) Stroke Payers Payer name Insurance type Covered green party ID Authorstepha jevon(s) [employer] Of [facility] [id number] Social History Type Description Quantity Date Captured [...]
--- OUTSIDE RECORDS SUMMARY | 2024-11-15 11:40 | XMS_ITS | Clinical Summary ---
Author Organization [facility] Address [address] [place] [address] Care Team Providers Care Agency Legal Counsel Name Role Phone West Pino MD Unavailable [phone] Yvan Jaime MD Unavailable [phone] None, Provider MD Primary Care Provider Unavaila [...] CDT Gender Identity Female 05/09/2021 3:57 PM CLINICAL DOCUMENTATION CLERK Sexual Orientation Straight 05/09/2021 3: 57 PM CLINICAL DOCUMENTATION CLERK Last Filed Vital Signs Vital Sign Reading Time Taken Comments Blood Pressure 106/60 03/28/2022 9:13 AM CLINICAL DOCUMENTATION CLERK Pulse 80 03/28/2022 9:13 AM CLINICAL DOCUMENTATION CLERK Temperature 36.1 C (97 F) 03/28/2022 9:13 AM CLINICAL DOCUMENTATION CLERK Respiratory Rate 20 03/28/2022 9:13 AM CLINICAL DOCUMENTATION CLERK Oxygen Saturation 94% 03/28/2022 9:13 AM CLINICAL DOCUMENTATION CLERK Inhaled Oxygen Concentration - - Weight 52.6 kg (116 lb) 03/28/2022 9:13 AM CLINICAL DOCUMENTATION CLERK Height 167.6 cm (5' 6) 03/28/2022 9:13 AM CLINICAL DOCUMENTATION CLERK Body Mass Index 18.72 03/28/2022 9:13 AM CLINICAL DOCUMENTATION CLERK Plan of Treatment Health Maintenance Due Date [...] this topic Medical Devices Implanted Type Area Procedures Rn Device Identifier Shelf Expiration Date Model / Serial / Lot Stent Bard [place] 6fr X 24cm - [id number] Implanted:Qty : 1 on 05/17/2019 by West Pino MD at [facility] Stent Left: Ureter [employer] 05/12/2023 [id number] / / [id number] Stent Bard [place] 6fr X 24cm - [id number] Implanted:Qty : 1 on 05/17/2019 by West Pino MD at [facility] Stent Right: Ureter [employer] 05/12/2023 [id number] / / [id number] Stent Ureteral Pigtail 6fr 24cm Crv Taper Tip - [id number] Implanted:Qty : 1 on 02/26/2021 by West Pino MD at [facility] Stent Left: Ureter Ripl LANI [id number] 11/28/2023 [id number] Procedures Procedure Name Priority Date/Time Associated Diagnosis Comments MG SCREENING PAIGE DIGI Routine 04/16/2015 3:06 PM CLINICAL DOCUMENTATION CLERK from Last 3 Months or Most Recently Relevant to Health Maintenance Results * MG SCREENING PAIGE DIGI (04/16/2015 3:06 PM CLINICAL DOCUMENTATION CLERK) Anatomical Region Laterality Modality Breast Bilateral Mammography 04/16/2015 3:06 PM CLINICAL DOCUMENTATION CLERK 04/16/2015 3:06 PM CLINICAL DOCUMENTATION CLERK Narrative 04/16/2015 3:24 PM CLINICAL DOCUMENTATION CLERK MELYSSA MCCALL ADMIT/SERVICE DATE: 04/16/15 ACCT: [id number] DISCHARGE DATE: : 1955 SEX: F ORD SITE: [facility] PT TYPE: REG CLI ORDERING MD: MANE RAMIREZ MD STUDY DATE REPORT # ORDER # EXT ORDER ID 04/16/15 [id number] PROC CODE: SCMAMDGB PROCEDURE DESCRIPTION: MG SCREEN [...] - 02/26/2018 MELYSSA MCCALL ADMIT/SERVICE DATE:04/16/15 ACCT: [id number] DISCHARGE DATE: : 1955 SEX: F ORD SITE: [facility] PT TYPE: REG CLI ORDERING MD:MANE RAMIREZ MD STUDY DATE REPORT # ORDER # EXT ORDER ID 04/16/15 [id number] PROC CODE: SCMAMDGB PROCEDURE DESCRIPTION: MG SCREEN [...] 1:01 PM 02/26/2021 3:43 PM Care Teams Agency Legal Counsel Relationship Specialty Start Date End Date None, ProviderMD PCP - General UNKNOWN PHYSICIAN SPECIALTY 03/28/22 West Pino MD UROLOGY 05/03/19 Yvan Jaime MD [address] [place] [address] Surgeon NEUROLOGICAL SURGERY 05/03/19
--- OUTSIDE RECORDS SUMMARY | 2024-11-15 11:40 | XMS_ITS | Clinical Summary ---
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
--- OUTSIDE RECORDS SUMMARY | 2024-11-15 11:40 | XMS_ITS | Referral Summary ---
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
--- OUTSIDE RECORDS SUMMARY | 2024-11-15 11:41 | XMS_ITS | Clinical Summary ---
Author Organization [facility] [employer] Address [address] [facility] [place] [address] Care Team Providers Care Animal Attendant Name Role Phone Tommy King DO Primary Care Provider [phone] Source Comments [facility],non-owned Affiliates and Associated Physician Practices is amultiple site organization consisting of ambulatory clinics and hospital sitesin [place], [place], [place] and [place]. This disclosure is being madepursuant to the Care Everywhere program and may not contain all information available regarding this patient. Last updated 18.[facility] Allergies Active Allergy Reactions Criticality Noted [...] fluticasone propionate (FLONASE) 50 MCG/ACT nasal spray Slick 2 sprays into the nose once daily [...] 36.8 C (98.3 F) 06/12/2021 10:53 AM ROUGE MILLER Respiratory Rate 18 05/23/2021 12:51 PM ROUGE MILLER Oxygen Saturation 91% 08/05/2021 9:59 AM CDT [...] MEDICARE AWV CALENDAR YEAR 2024 INFLUENZA VACCINE (#1) 2025 , 01/06/2020, 01/13/2018, Additional history exists Respiratory Syncytial [...] this topic Medical Devices Implanted Type Area Table And Desk Finisher Device Identifier Shelf Expiration Date Model / Serial / Lot Lead Nrstm 60cm Penta 3mm Pdl 16 [facility] - [id number] Implanted:Qty: 1 on 05/23/2021 by Esau Rose MD at [facility] Back [employer] 10/19/2022 [id number] / [id number] / Slnt Dura Duraseal Pg Trilysine Amine 5 Implanted:Qty: 1 on 05/23/2021 by Esau Rose MD at [facility] Back [employer] Erendira [id number] / / [id number] Gntr Nrstm 1.95inx2.19in [employer] - [id number] Implanted:Qty: 1 on 05/23/2021 by Esau Rose MD at [facility] Left: Back [employer] 03/26/2023 [id number] / [id number] / Insurance MEDICARE MEDICAID - [place] [employer] MANAGED MEDICARE ADV MEDICAID [place] SELF PAY NO INSURANCE Member Subscriber Plan / Payer (Ef fective for All Dates) Name:Melyssa Mccall Member ID:Not on file Relation to Subscriber:Not on file Name:MELYSSA MCCALL Subscriber ID:Not on file (Home) Address: [address] [place] [address] [place] [address] Payer ID:Not on file Group ID:Not on file Type:Self Pay Address: [facility] MANAGED MEDICARE [facility] MEDICARE MEDICAID - OUT OF STATE Care Teams Animal Attendant Relationship Specialty Start Date End Date Tommy King DO PCP - General Internal Medicine 04/23/21
--- OUTSIDE RECORDS SUMMARY | 2024-11-15 11:41 | XMS_ITS | Encounter Summary ---
Author Organization [facility] Address [address] [place] [address] Care Team Providers Care Certified Physician Assistant Name Role Phone Milena Dos Santos MD Primary Care Provider [phone] Tommy King DO Primary Care Provider [phone] West Pino MD Unavailable [phone] Yvan Jaime MD Unavailable [phone] None, Provider Primary Care Provider Unavaila ble Encounter Details Date Type Department Care Team (Latest Contact Info) Description 03/09/2018 Abstract [facility] Michael Mclean MD Social History Tobacco Use Types Packs/Day Years Used Date Smoking Tobacco: Smoker, Current Status Unknown Comments Unknown Sex and Gender Information Value Date Recorded Sex Assigned at Not on file Legal Sex Female 11:35 PM CDT Gender Identity Female 05/09/2021 3:57 PM CARROTER Sexual Orientation Straight 05/09/2021 3: 57 PM CARROTER documented as of this encounter Plan of Treatment Not on file documented as of this encounter Visit Diagnoses Not on filedocumented in this encounter Care Teams Certified Physician Assistant Relationship Specialty Start Date End Date Milena Dos Santos MD [address] [place] [address] PCP - General 06/03/16 04/03/19 Tommy King DO [address] [place] [address] PCP - General INTERNAL MEDICINE 04/04/19 03/27/22 None, [place], PCP - General UNKNOWN PHYSICIAN SPECIALTY 03/28/22 West Pino MD [address] [facility] [address] [place] [address] UROLOGY 05/03/19 Yvan Jaime MD [address] [place] [address] Surgeon NEUROLOGICAL SURGERY 05/03/19 documented as of this encounter
--- OUTSIDE RECORDS SUMMARY | 2024-11-15 11:41 | XMS_ITS | Data Portability ---
Author Organization Claudia GODDARD Address [address] [place] [address] Assessment No assessment recorded. Plan of Treatment Reminders Order Date Submit Date Provider Last Modified By Organization Details Last Modified Time Details Appointments None recorded. Lab rapid strep group A, throat 2016 017 [facility] In-Office Order, Internal Use Only DO Not Attach Compendium DO Not Attach Compendium, Do Not Delete/merge, [id number] 7 17:07:24 HbA1c (hemoglobi n A1c), blood 2015 016 DBA_PATCH_ [id number] [facility], [address] [facility] [address], [address], [place], [address], 6 04:31:39 glucose tolerance test, post-75G, 3 specimens 2015 016 DBA_PATCH_ [id number] [facility], [address] [facility] [address], [address], [place], [address], 6 04:31:39 unlisted lab - vitamin D, 25-hydroxy , total - [facility] 2015 016 JENNIFER [facility], [address] [facility] [address], [address], [place], [address], 6 13:11:27 CBC w/ manual diff 2015 016 [email or web address] [facility], [address], [address], [place], [address], 6 12:15:19 CMP, serum or plasma 2015 016 [email or web address] [facility], [address] [facility] [address], [address], [place], [address], 6 12:15:19 lipid panel, serum 2015 016 [email or web address] [facility], [address] [facility], [address], [place], [address], 6 12:15:19 unlisted lab - compliance drug analysis, ur 2015 016 JENNIFER [facility], [address] [facility], [address], [place], [address], 6 15:09:40 Referral laryngolog y referral - Please call patient to schedule 2015 016 [email or web address] Not available 7 07:56:45 audiologis t referral - Please call patient to schedule [email or web address], [place], [address], 7 13:04:47 plastic surgeon referral - Rt thigh lump/ PATIENT TO SCHEDULE 2015 016 [email or web address] Not available 7 13:17:06 gastroente rologist referral - P:leae call patient to schedujle 2015 016 [email or web address] Jack Griffin MD, [address] [place], [address], 7 10:10:31 Procedures colonoscop y screening (PROC) 2015 016 DBA_PATCH_ [id number] Not available 6 04:32:07 Surgeries None recorded. Imaging MAMMO, screening, digital, bilateral 2015 016 DBA_PATCH_ [id number] [facility] ([facility]), [address] [place], [address], 6 04:31:59 MAMMO, screening, bilateral 2015 016 [facility] ([facility]), [address] [place], [address], 7 10:29:25 bone density, dual photon absorptiom etry 2015 016 [facility] ([facility]), [address] [place], [address], 6 15:34:00 Medication Orders sertraline 100 mg tablet 2016 017 [facility][id number], [address], [place], [id number], 7 17:07:30 nystatin 100,000 unit/mL oral suspension 2016 017 [facility] #34634, [address] [facility], [place], [place], [id number], 7 17:07:31 calcium 600 mg (as carbonate) -vitamin D3 10 mcg (400 unit) capsule 2016 017 [facility] #35497, [address] [facility], [place], [place], [id number], 7 16:54:36 Ventolin HFA 90 mcg/actuat ion aerosol inhaler 2016 017 [facility] #86963, [address] [facility], [place], [place], [id number], 7 16:22:52 Symbicort 160 mcg-4.5 mcg/actuat ion HFA aerosol inhaler 2016 017 [facility] #67027, [address], [place], [place], [id number], 7 16:22:51 albuterol sulfate 2.5 mg/3 mL (0.083 %) solution for nebulizati on 2016 017 [facility] #33272, [address] , [place], [place], [id number], 7 16:22:52 calcium 600 mg (as carbonate) -vitamin D3 10 mcg (400 unit) capsule 2015 016 DBA_PATCH_ [id number] [facility] #84384, [address] , [place], [place], [id number], 6 04:31:45 Patient TargetsNo targets recorded. Patient Instructions Encounter Date Encounter Id Patient Instructions Last Modified By Organization Details Last Modified Time 01/21/2016 [id number] deciding about using medicines to quit smoking [facility] Not available 01/22/2016 15:28:08 Quitting Tobacco : Care Instructions [facility] Not available 01/22/2016 15:28:09 chronic obstructive pulmonary disease (COPD): care instructions [facility] Not available 01/22/2016 15:28:08 learning about copd and how to prevent lung infections [facility] Not available 01/22/2016 15:28:08 03/21/2016 [id number] mammogram: about this test [facility] Not available 03/21/2016 17:27:52 deciding about using medicines to quit smoking [facility] Not available 03/21/2016 17:27:52 Quitting Tobacco : Care Instructions [facility] Not available 03/21/2016 17:27:52 chronic obstructive pulmonary disease (COPD): care instructions [facility] Not available 03/21/2016 17:27:52 learning about copd and how to prevent lung infections [facility] Not available 03/21/2016 17:27:52 learning about high blood sugar [facility] Not available 03/21/2016 17:31:23 05/28/2016 [id number] osteoporosis: care instructions [facility] Not available 05/28/2016 16:22:51 deciding about using medicines to quit smoking [email or web address] Not available 05/28/2016 16:22:51 Quitting Tobacco : Care Instructions jhsieh Not available 05/28/2016 16:22:51 chronic obstructive pulmonary disease (COPD): care instructions jhsieh Not available 05/28/2016 16:22:51 learning about copd and how to prevent lung infections jhsieh Not available 05/28/2016 16:22:51 07/01/2016 [id number] deciding about using medicines to quit smoking [facility] Not available 07/02/2016 09:50:36 Quitting Tobacco : Care Instructions [facility] Not available 07/02/2016 09:50:36 chronic obstructive pulmonary disease (COPD): care instructions [facility] Not available 07/02/2016 09:50:36 learning about copd and how to prevent lung infections [facility] Not available 07/02/2016 09:50:36 11/24/2016 [id number] deciding about using medicines to quit smoking [email or web address] Not available 11/25/2016 11:07:05 Quitting Tobacco : Care Instructions [email or web address] Not available 11/25/2016 11:07:05 chronic obstructive pulmonary disease (COPD): care instructions [email or web address] Not available 11/25/2016 11:07:05 learning about copd and how to prevent lung infections [email or web address] Not available 11/25/2016 11:07:05 Reason for Referral [...] Physician: [facility], Encounter Date: 03/21/2016 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 [place] [address] NG/MG CREAT POTEN TIAL SOURC ES OF [...] TAYLOR CONSU LTATI ON, PLEAS E CALL [phone]. ===== ===== ===== ===== ===== ===== ===== ===== ===== ===== ===== ===== ===== === Not Available [facility] [address], [place], [address], 01/26/2016 15:09:40 01/21/20 16 01/26/2016 drug scree n, urine pdf . Not Available [facility] [address], [place], [address], 01/26/2016 15:09:40 02/04/20 16 02/05/2016 CBC w/ manua l diff WBC 5.7 x10e3 /uL 3.4-10 .8 Not Available [facility] ([facility]) [address] [facility], [place], [address], 02/07/2016 13:11:25 02/04/20 16 02/05/2016 CBC w/ manua l diff RBC 4.19 x10e6 /uL 3.77-5 .28 Not Available [facility] ([facility]) [address] [place], [address], 02/07/2016 13:11:25 02/04/20 16 02/05/2016 CBC w/ manua l diff hemoglobin 12.7 g/dL 11.1-1 5.9 Not Available [facility] ([facility]) [address] [place], [address], 02/07/2016 13:11:25 02/04/20 16 02/05/2016 CBC w/ manua l diff hematocrit 38.8 % 34.0-4 6.6 Not Available [facility] ([facility]) [address] [place], [address], 02/07/2016 13:11:25 02/04/20 16 02/05/2016 CBC w/ manua l diff MCV 93 fL 79-97 Not Available [facility] ([facility]) [address] [place], [address], 02/07/2016 13:11:25 02/04/20 16 02/05/2016 CBC w/ manua l diff MCH 30.3 pg 26.6-3 3.0 Not Available [facility] ([facility]) [address] [facility], [place], [address], 02/07/2016 13:11:25 02/04/20 16 02/05/2016 CBC w/ manua l diff MCHC 32.7 g/dL 31.5-3 5.7 Not Available [facility] ([facility]) [address] [facility], [place], [address], 02/07/2016 13:11:25 02/04/20 16 02/05/2016 CBC w/ manua l diff RDW 14.2 % 12.3-1 5.4 Not Available [facility] ([facility]) [address] [facility], [place], [address], 02/07/2016 13:11:25 02/04/20 16 02/05/2016 CBC w/ manua l diff platelets 148 x10e3 /uL 150-37 9 below low normal Not Available [facility] ([facility]) [address] [place], [address], 02/07/2016 13:11:25 02/04/20 16 02/05/2016 CBC w/ manua l diff neutrophils 75 % Not Available [facility] ([facility]) [address] [facility], [place], [address], 02/07/2016 13:11:25 02/04/20 16 02/05/2016 CBC w/ manua l diff lymphs 16 % Not Available [facility] ([facility]) [address] [place], [address], 02/07/2016 13:11:25 02/04/20 16 02/05/2016 CBC w/ manua l diff monocytes 8 % Not Available [facility] ([facility]) [address] [place], [address], 02/07/2016 13:11:25 02/04/20 16 02/05/2016 CBC w/ manua l diff eos 1 % Not Available [facility] ([facility]) [address] [place], [address], 02/07/2016 13:11:25 02/04/20 16 02/05/2016 CBC w/ manua l diff basos 0 % Not Available [facility] ([facility]) [address] [place], [address], 02/07/2016 13:11:25 02/04/20 16 02/05/2016 CBC w/ manua l diff immature cells [employer] SAL[employer]IVE Not Available [facility] ([facility]) [address] [place], [address], 02/07/2016 13:11:25 02/04/20 16 02/05/2016 CBC w/ manua l diff neutrophils absolute 4.3 x10e3 /uL 1.4-7. 0 Not Available [facility] ([facility]) [address] [place], [address], 02/07/2016 13:11:25 02/04/20 16 02/05/2016 CBC w/ manua l diff lymphs (absolute) 0.9 x10e3 /uL 0.7-3. 1 Not Available [facility] ([facility]) [address] [place], [address], 02/07/2016 13:11:25 02/04/20 16 02/05/2016 CBC w/ manua l diff monocytes(ab solute) 0.5 x10e3 /uL 0.1-0. 9 Not Available [facility] ([facility]) [address] [place] [address], [address], 02/07/2016 13:11:25 02/04/20 16 02/05/2016 CBC w/ manua l diff eos (absolute value) 0.1 x10e3 /uL 0.0-0. 4 Not Available [facility] ([facility]) [address] [facility], [place], [address], 02/07/2016 13:11:25 02/04/20 16 02/05/2016 CBC w/ manua l diff baso(absolut e) 0.0 x10e3 /uL 0.0-0. 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 normal Not Available [facility] ([facility]) [address] [facility], [place], [address], 02/07/2016 13:11:25 02/04/20 16 02/05/2016 CBC w/ manua l diff platelet comment ADEQUA TE adequa te Not Available [facility] ([facility]) [address] [facility], [place], [address], 02/07/2016 13:11:25 02/04/20 16 02/05/2016 CMP, serum or plasm a glucose, serum 115 mg/dL 65-99 above high normal Not Available [facility] ([facility]) [address] [facility] [place], [address], 02/07/2016 13:11:26 02/04/20 16 02/05/2016 CMP, serum or plasm a hemoglobin A1C 5.9 % 4.8-5. 6 above high normal PRE-D IABET ES: 5.7 - 6.4 DIABE ROSE: >6.4 GLYCE ARON CONTR OL FOR ADULT S WITH DIABE ROSE: <7.0 Not Available [facility] ([facility]) [address] [place], [address], 02/07/2016 13:11:26 02/04/20 16 02/05/2016 CMP, serum or plasm a BUN 8 mg/dL 8-27 Not Available [facility] ([facility]) [address] [place], [address], 02/07/2016 13:11:26 02/04/20 16 02/05/2016 CMP, serum or plasm a creatinine, serum 0.85 mg/dL 0.57-1 .00 Not Available [facility] ([facility]) [address] [place], [address], 02/07/2016 13:11:26 02/04/20 16 02/05/2016 CMP, serum or plasm a eGFR if nonafricn AM 74 mL/mi n/1.7 3 >59 Not Available [facility] ([facility]) [address] [place], [address], 02/07/2016 13:11:26 02/04/20 16 02/05/2016 CMP, serum or plasm a eGFR if africn AM 85 mL/mi n/1.7 3 >59 Not Available [facility] ([facility]) [address] [place], [address], 02/07/2016 13:11:26 02/04/20 16 02/05/2016 CMP, serum or plasm a BUN/creatini ne ratio 9 11-26 below low normal Not Available [facility] ([facility]) [address] [place] [address], [address], 02/07/2016 13:11:26 02/04/20 16 02/05/2016 CMP, serum or plasm a sodium, serum 142 mmol/ L 134-14 4 EFF ECTIV E OCTOB ER 2015 THE REFER ENCE INTER NIRMALA FOR SARAH Rodriguez, SERUM WILL BE LYON ING TO: 136 - 144 Not Available [facility] ([facility]) [address] [place], [address], 02/07/2016 13:11:26 02/04/20 16 02/05/2016 CMP, serum [...] YEAR 3.5 - 5.2 Not Available [facility] ([facility]) [address] [place], [address], 02/07/2016 13:11:26 02/04/20 16 02/05/2016 CMP, serum or plasm a chloride, serum 103 mmol/ L 97-108 EFF ECTIV E OCTOB ER 2015 THE REFER ENCE INTER NIRMALA FOR CHLOR SAHIL, SERUM WILL BE LYON ING TO: 97 - 106 Not Available [facility] ([facility]) [address] [place], [address], 02/07/2016 13:11:26 02/04/20 16 02/05/2016 CMP, serum or plasm a carbon dioxide, total 24 mmol/ L 18-29 Not Available [facility] ([facility]) [address] [place], [address], 02/07/2016 13:11:26 02/04/20 16 02/05/2016 CMP, serum or plasm a calcium, serum 8.3 mg/dL 8.7-10 .3 below low normal Not Available [facility] ([facility]) [address] [place], [address], 02/07/2016 13:11:26 02/04/20 16 02/05/2016 CMP, serum or plasm a protein, total, serum 6.2 g/dL 6.0-8. 5 Not Available [facility] ([facility]) [address] [facility] [place], [address], 02/07/2016 13:11:26 02/04/20 16 02/05/2016 CMP, serum or plasm a albumin, serum 3.8 g/dL 3.6-4. 8 Not Available [facility] ([facility]) [address] [facility], [place], [address], 02/07/2016 13:11:26 02/04/20 16 02/05/2016 CMP, serum or plasm a globulin, total 2.4 g/dL 1.5-4. 5 Not Available [facility] ([facility]) [address] [place], [address], 02/07/2016 13:11:26 02/04/20 16 02/05/2016 CMP, serum or plasm a A/G ratio 1.6 1.1-2. 5 Not Available [facility] ([facility]) [address] [facility], [place], [address], 02/07/2016 13:11:26 02/04/20 16 02/05/2016 CMP, serum or plasm a bilirubin, total <0.2 mg/dL 0.0-1. 2 Not Available [facility] ([facility]) [address] [place], [address], 02/07/2016 13:11:26 02/04/20 16 02/05/2016 CMP, serum or plasm a alkaline phosphatase, S 97 IU/L 39-117 Not Available [facility] ([facility]) [address] [place] [address], [place], [address], 02/07/2016 13:11:26 02/04/20 16 02/05/2016 CMP, serum or plasm a AST (SGOT) 15 IU/L 0-40 Not Available [facility] ([facility]) [address] [facility] [place], [address], 02/07/2016 13:11:26 02/04/20 16 02/05/2016 CMP, serum or plasm a ALT (SGPT) 15 IU/L 0-32 Not Available [facility] ([facility]) [address] [facility] [place], [address], 02/07/2016 13:11:26 02/04/20 16 02/05/2016 lipid panel , serum cholesterol, total 201 mg/dL 100-19 9 above high normal Not Available [facility] ([facility]) [address] [facility] [place], [address], 02/07/2016 13:11:26 02/04/20 16 02/05/2016 lipid panel , serum triglyceride s 91 mg/dL 0-149 Not Available [facility] ([facility]) [address] [place], [address], 02/07/2016 13:11:26 02/04/20 16 02/05/2016 lipid panel , serum HDL cholesterol 72 mg/dL >39 ACCOR DING TO ATP-I II GUIDE LINES , HDL-C >59 MG/DL IS CONSI DERED A NEGAT CAMPOS RISK FACTO R FOR CHD. 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 2 LDL/H DL RATIO MEN WOMEN 1/2 AVG.R ISK 1.0 1.5 AVG.R ISK 3.6 3.2 2X AVG.R ISK 6.2 5.0 3X AVG.R ISK 8.0 6.1 Not Available [facility] ([facility]) [address] [facility], [place], [address], 02/07/2016 13:11:26 02/04/20 16 02/07/2016 vitam in D, 25-hy droxy , total , serum vitamin D, 25-hydroxy, serum 37 NG/mL REFER ENCE RANGE : ALL AGES: TARGE T LEVEL S 30 - 100 Not Available [facility] [address] [place] [address], [address], 02/07/2016 13:11:27 04/02/20 16 04/03/2016 gluco se slava ance test, post- 75G, 3 speci mens glucose, fasting 92 mg/dL 65-99 Not Available [facility] ([facility]) [address] [place], [address], 04/03/2016 06:12:40 04/02/20 16 04/03/2016 gluco se slava ance test, post- 75G, 3 speci mens glucose, 1/2 hour TNP TEST NOT PERFO RMED Not Available [facility] ([facility]) [address] [place], [address], 04/03/2016 06:12:40 04/02/20 16 04/03/2016 gluco se slava ance test, post- 75G, 3 speci mens glucose, 1 hour 189 mg/dL 65-199 Not Available [facility] ([facility]) [address] [place], [address], 04/03/2016 06:12:40 04/02/20 16 04/03/2016 gluco se slava ance test, post- 75G, 3 speci mens glucose, 1 1/2 hour TNP TEST NOT PERFO RMED Not Available [facility] ([facility]) [address] [place], [address], 04/03/2016 06:12:40 04/02/20 16 04/03/2016 gluco se slava ance test, post- 75G, 3 speci mens glucose, 2 hour 97 mg/dL 65-139 Not Available [facility] ([facility]) [address] [place], [address], 04/03/2016 06:12:40 04/02/20 16 04/03/2016 gluco se slava ance test, post- 75G, 3 speci mens glucose, 3 hour TNP TEST NOT PERFO RMED Not Available [facility] ([facility]) [address] [place] [address], [address], 04/03/2016 06:12:40 04/02/20 16 04/03/2016 gluco se slava ance test, post- 75G, 3 speci mens glucose, 4 hour TNP TEST NOT PERFO RMED Not Available [facility] ([facility]) [address] [place], [address], 04/03/2016 06:12:40 04/02/20 16 04/03/2016 gluco se slava ance test, post- 75G, 3 speci mens glucose, 5 hour TNP TEST NOT PERFO RMED Not Available [facility] ([facility]) [address] [place], [address], 04/03/2016 06:12:40 04/02/20 16 04/03/2016 gluco se slava ance test, post- 75G, 3 speci mens glucose, 6 hour TNP TEST NOT PERFO RMED Not Available [facility] ([facility]) [address] [facility], [place], [address], 04/03/2016 06:12:40 04/02/20 16 04/03/2016 HbA1c (hemo globi n A1c), blood hemoglobin A1C 6.0 % 4.8-5. 6 above high normal PRE-D IABET ES: 5.7 - 6.4 DIABE ROSE: >6.4 GLYCE ARON CONTR OL FOR ADULT S WITH DIABE ROSE: <7.0 Not Available [facility] ([facility]) [address] [facility], [place], [address], 04/03/2016 06:12:41 01/29/20 16 01/28/2016 bone densi ty, dual photo n absor ptiom etry No observ ation record ed. [email or web address] [facility] [address] [place], [address], 08/20/2016 09:43:33 02/21/20 16 02/21/2016 US, kidne y No observ ation record ed. [email or web address] Not Available 2015 15:40:26 05/21/19 17 05/21/2016 MRI, brain + brain stem, w/wo contr ast No observ ation record ed. strice [facility] [address] [place], [address], 07/03/2016 11:40:04 05/21/19 17 05/21/2016 MRI, cervi taylor spine , w/o contr ast No observ ation record ed. [email or web address] [facility] (Imaging) [address] [place], [address], 05/29/2016 07:28:18 06/03/19 17 06/03/2016 MAMMO , scree uziel, bilat eral No observ ation record ed. [email or web address] Not Available 07/02 15:29:02 06/27/19 17 06/27/2016 XR, chest , 2 view No observ ation record ed. [facility] (Imaging) [address] [place], [address], 07/16/2016 13:29:36 07/04/19 17 6 minut e walk test* No observ ation record ed. [facility] ([facility]) [address] [place], [address], 07/04/2016 12:37:03 Result Notes None recorded. Problems Name Problem SNOMED Code Status Onset Date Resolution Date Notes Provider Name and Address Organization Details Recorded Time Chronic obstructive pulmonary disease 65505278 Active Milena Dos Santos MD Attn: Wilmer bullock,[address] [facility], [place], [address], [facility] 6 15:15:05 Tobacco dependence syndrome 89802658 Active Milena Dos Santos MD Attn: Wilmer bullock,[address] [facility], [place], [address], [facility] 6 15:15:05 Chronic low back pain [id number] Diandra Dos Santos MD Attn: Wilmer bullock,[address] [facility], [place], [address], [facility] 6 15:15:05 Esophageal dysphagia [id number] Diandra Dos Santos MD Attn: Wilmer bullock,[address] [facility], [place], [address], [facility] 6 15:15:05 Dystonia [id number] Diandra Dos Santos MD Attn: Wilmer bullock,[address] [facility], [place], [address], [facility] 6 15:15:05 Osteoporosis [id number] Diandra Gonzalez RN null, [facility] 6 15:14:16 Problem Notes None recorded. Procedures Surgical History Date Name Laterality Status Provider Name and Address Organization Details Recorded Time 05/04/19 15 Mammogram screening completed Judd Valentine MA [facility] 01/21/2016 14:25:00 05/04/19 14 Diagnostic colonoscopy completed Judd Valentine ROSS [facility] 01/21/2016 14:25:00 05/04/19 09 Screening pap smear by phys completed Judd Valentine MA [facility] 01/21/2016 14:25:00 Dilation and Curettage completed Judd Valentine MA [facility] 01/21/2016 14:25:00 Tonsillectomy completed Judd Valentine MA [facility] 01/21/2016 14:25:00 Hysterectomy completed Judd Valentine MA [facility] 01/21/2016 14:25:00 Appendectomy completed Judd Valentine ROSS [facility] 01/21/2016 14:25:00 Imaging Results None recorded. Procedure Notes None recorded. Medical Equipment None Reported. Allergies Allergen ID Allergen Name Allergen Category Reaction Reaction Severity Criticality Documentation Date Start Date Code Code System Note Provider Name and Address Organization Details Recorded Time 31234 Product containin g penicilli n (product) medicatio n Not available Not available Not available 01/21/2016 71734 8001 SNOMED [facility] 6 14:24:59 73781 Demerol medicatio n itching Not available Not available 01/21/2016 08508 1 RxNorm [facility] 6 14:24:59 Medications Name Sig [...] propionate 50 mcg/actuatio n nasal spray,suspen haleigh Antelope 1 spray every day by intranasal route. [...] blood by Pulse oximetry Heart rate Systolic And Diastolic Provider Name and Address Organization Details Last Updated DateTime 7 169.545 cm 85088.4 8 g 19.8 kg/m2 97.9 [degF] 96 % 96 % 85 /min 126/66 mm[Hg] Judd Valentine MA [facility] 7 16:04:46 Date Recorded Body height Body weight Body mass index (BMI) Body temperature Oxygen saturation Oxygen saturation in Arterial blood by Pulse oximetry Heart rate Systolic And Diastolic Provider Name and Address Organization Details Last Updated DateTime 7 169.545 cm 11637.7 g 19.3 kg/m2 98.1 [degF] 92 % 92 % 80 /min 124/68 mm[Hg] Judd Valentine MA [facility] 7 17:15:45 Date Recorded Body height Body mass index (BMI) Body weight Body temperature Oxygen saturation Oxygen saturation in Arterial blood by Pulse oximetry Heart rate Systolic And Diastolic Provider Name and Address Organization Details Last Updated DateTime 7 169.545 cm 20.5 kg/m2 03146.2 9 g 97.7 [degF] 95 % 95 % 90 /min 130/70 mm[Hg] Judd Valentine MA [facility] 7 15:30:39 Date Recorded Body height Heart rate Body weight Oxygen saturation Oxygen saturation in Arterial blood by Pulse oximetry Body mass index (BMI) Body temperature Systolic And Diastolic Provider Name and Address Organization Details Last Updated DateTime 6 169.545 cm 71 /min 84249.3 97789 g 96 % 96 % 18.9 kg/m2 98.3 [degF] 144/70 mm[Hg] Judd Valentine MA [facility] 6 14:25:00 Date Recorded Body height Body weight Body mass index (BMI) Body temperature Oxygen saturation Oxygen saturation in Arterial blood by Pulse oximetry Heart rate Systolic And Diastolic Provider Name and Address Organization Details Last Updated DateTime 6 169.545 cm 77089.7 1 g 19.3 kg/m2 98.3 [degF] 95 % 95 % 88 /min 104/60 mm[Hg] Judd Valentine MA [facility] 6 16:32:19 Social History None recorded. Functional [...] 0.5 mL 07/09/2020 completed Nato Maria null, [facility] 11/07/2020 16:13:26 pneumococcal, unspecified formulation 05/04/2005 completed Judd Valentine [place] null, [place] [facility] 01/21/2016 14:25:00 Past Encounters Encounter ID Performer Location Encounter Start Date Encounter Closed Date Diagnosis/Indication Diagnosis SNOMED-CT Code Diagnosis ICD10 Code Diagnosis Note [id number] MD Asif Colindres (Adult Med) [address] [place] [address] [phone] 0 01/21/2016 13:44:23 01/21/2016 18:02:47 Chronic obstructive pulmonary disease 80293895 J44.9 Tobacco de pendence syndrome 35786040 F17.290 Chronic low back pain 27 7467268 M54.5 Esophageal dysphagia 408 94429 R13.19 Adult heal th examination 946459288 Z00.00 Screening for osteoporosis 779586980 Z13.820 Dystonia 61702842 G24.9 [id number] MD Asif Colindres (Adult Med) [address] [place] [address] [phone] 0 03/21/2016 15:52:50 03/21/2016 17:46:52 Chronic obstructive pulmonary disease 16074816 J44.9 Tobacco de pendence syndrome 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 Chronic low back pain 27 5857757 M54.5 Esophageal dysphagia 408 70544 R13.19 She had upper EGD scopic ex. by a GI specialist and was dilated and recently had unremarkab le colonoscop y ex by GI specialist as well. Osteoporosis 57065458 M8 1.0 Osteopenia 862901155 M85 .9 [id number] MD Asif Colindres (Adult Med) [address] [place] [address] [id number] 0 07/01/2016 15:40:48 07/01/2016 18:04:54 Chronic obstructive pulmonary disease 75595831 J44.9 Will have nurse arrange the 6 minutes walking test to see if she is qualified for the home oxygen, Jennifer won't give such choice on the computer. Tobacco de pendence syndrome 38275685 F17.290 She is on the nicotine patch for quitting cigarettes . [id number] MD Asif Colindres (Adult Med) [address] [place] [address] [id number] 0 11/24/2016 14:30:40 11/24/2016 17:09:34 Pharyngitis 978788858 J02.9 Thrash. Chronic ob structive pulmonary disease 59830470 J44.9 Will have nurse arrange the 6 minutes walking test to see if she is qualified for the home oxygen, Jennifer won't give such choice on the computer. Tobacco de pendence syndrome 97277111 F17.290 She is on the nicotine patch for quitting cigarettes . Pain of mu ltiple joints 13780229 M25.50 Had been on sertraline . Chronic low back pain 27 1161013 M54.5 Same as sertraline . Lumbar radiculopathy 128 972640 M54.16 Health Concerns Section Related Observation LastModified by Organization Detai ls LastModified Time None Recorded Concern Status LastModified by Organization Details LastModified Time None Recorded Advance Directives Directive None Recorded Payers Insurance Date Sequence Insurance Name Policy Number Policy Granados Covered Member ID Granados Member ID Guarantor Name 07/02/2016 2 [place] WHEN MEDICARE OR MEDICARE REPLACEMENT PRIMARY) Melyssa Cal [id number] Melyssa [place] 07/02/2016 2 [place] [facility] Melyssa [place] [id number] Melyssa [place] 11/21/2016 [place] [facility] Melyssa Cal [id number] Melyssa [place] 11/25/2016 1 [place] Melyssa A [place] [id number] Melyssa Cal Notes Date Note Type [...] Milena Dos Santos MD Attn: [address] [place], [address], [facility] 01/21/2016 15:15:32 03/21/2016 text/html She has gone to GI specialist for dilatation of esophageal stricture, her food regurgitaion has resolved and no more aspiration /or pneumonia and has gained weight after the improving appetite and oral intake but still smokes cigarettes. Milena Dos Santos MD Attn: [address] , [place], [address], [facility] 03/21/2016 17:39:07 11/24/2016 text/html She is happy abo ut that her ears can hear well again. and she had benign lump removed on her right thigh, had seen GI doctor for her esophageal dysphagia, still smokes cigarettes , using inhalers, chronic throat sore . Allergic to penicillins and demerol. Milena Dos Santos MD Attn: [address] , [place], [address], [facility] 11/24/2016 17:07:30 OBGyn Episode No OBEpisode recorded.
--- OUTSIDE RECORDS SUMMARY | 2024-11-15 11:41 | XMS_ITS | Encounter Summary ---
Author Organization [facility] MAYRA Nelson [facility] Address [address] [place] [address] Care Team Providers Care Observation Assistant Name Role Phone Unavailable Primary Care Provider Unavailabl e Reason for Referral * Eval and Treat (Routine) - Open Specialty Diagnoses / Procedures Referred By Ayo kenny Referred To Contact Surgery / Oncology Diagnoses Hepatocellular carcinoma (CMS/HCC) Procedures [place] OFFICE/OUTPATIENT ESTABLISHED MOD MDM 30 MIN [place] OFFICE/OUTPATIENT NEW MODERATE MDM 45 MINUTES Sebastian Gipson MD [address] [place] [phone] Phone: tel: fax: Mary Rand MD [address] [facility] [address] [place] [phone] Phone: tel: fax: Referral ID Status Reason Start Date Expiration Date Visits Re quested Visits Authorized [id number] Open 11/14/2024 11/14/2025 1 1 Reason for Visit * Reason Comments Establish Care Cancer Encounter Details Date Type Department Care Team (Late st Contact Info) Description 11/14/2024 4:00 PM CDT Office Visit [facility] Oncology and Hematology - [address] [address] Sebastian Gipson MD [address] [place] [address] Hepatocellular carcinoma (CMS/HCC) (Primary Dx) Social History Tobacco Use Types Packs/Day Years Used Date Smoking Tobacco: Never Smokeless Tobacco: Never Alcohol Use Standard Drinks/Week Comments Never 0 (1 standard drink = 0.6 oz pur e alcohol) Comments Unknown Sex and Gender Information Value Date Recorded Sex Assigned at Not on file Legal Sex Female 11:10 AM CDT Gender Identity Not on file Sexual Orientation Not on file documented as of this encounter Last Filed Vital Signs Vital Sign Reading Time Taken Comments Blood Pressure 135/78 11/14/2024 3:37 PM CDT Pulse 105 11/14/2024 3:37 PM CDT Temperature 38 C (100.4 F) 11/14/2024 3:37 PM CDT Respiratory Rate 15 11/14/2024 3:37 PM CDT Oxygen Saturation 94% 11/14/2024 3:37 PM CDT Inhaled Oxygen Concentration - - Weight 41.4 kg (91 lb 3.2 oz) 11/14/2024 3:37 PM CDT Height 170.2 cm (5' 7) 11/14/2024 3:37 PM CDT Body Mass Index 14.28 11/14/2024 3:37 PM CDT documented in this encounter Progress Notes * Sebastian Gipson MD - 11/14/2024 5:15 PM CDT Hematology-oncology consult Note Requesting Physician Primary Care Physician No primary care provider on file. Problem list There is no problem list on file for this patient. Previous TREATMENT ? Measurable Disease ? Reason for Visit Melyssa Mccall is a 69 y.o. female who was referred for consultation for hepatocellular carcinoma. History of present illness This is a 69-year-old female with history of smoking 1 to 2 pack/day for 50 years duration along with COPD was admitted to the hospital with shortness of breath and 30 pound weight loss in 3 years duration. She has been dealing with frequent pneumonias. CT scan chest was performed that showed worsening of the airspace consolidation consistent with pneumonia along with 2.7 cm hepatic lesion. She denies any history of hepatitis. She used to drink heavy long time ago when she drank on a weekly basis for 7 to 10 years duration. Patient had ultrasound-guided liver biopsy done on November 02, 2024 and pathology report showed hepatocellular carcinoma with severe chronic hepatitis and liver cirrhosis. Alpha-fetoprotein was also checked and came back normal at 2.1. She denies any other complaints. Past Medical History Past Medical History: Diagnosis Date Hyperlipidemia Hypertension Malignant neoplasm (CMS/HCC) Other emphysema (CMS/HCC) Stomach ulcer Surgical History Past Surgical History: Procedure Laterality Date HX HAND SURGERY 2011,2020 HX HYSTERECTOMY 1972 HX SPINAL CORD STIMULATOR IMPLANT 2020 Medications Current Outpatient Medications Medication Sig Dispense Refill Xtampza ER 13.5 mg capsule,sprinkle,ER 12hr tmprr cyclobenzaprine (FLEXERIL) 5 mg Tablet lovastatin (MEVACOR) 40 mg tablet solifenacin (VESICARE) 5 mg Tablet gabapentin (NEURONTIN) 300 mg capsule omeprazole (PriLOSEC) 40 mg Capsule, Delayed Release(E.C.) CHOLECALCIFEROL, VITAMIN D3, ORAL Take by mouth daily. loratadine (CLARITIN ORAL) Take by mouth. fexofenadine HCl (MUCINEX ALLERGY ORAL) Take by mouth. fluticasone propionate (FLONASE BOTH NOSTRIL) Administer in each nostril. albuterol sulfate HFA 90 mcg/actuation aerosol inhaler Take 2 Puffs by inhalation. aspirin (ECOTRIN EC) 81 mg Tablet, Delayed Release (E.C.) Take 81 mg by mouth daily. No current facility-administered medications for this visit. Allergies Allergies Allergen Reactions Penicillins Anaphylaxis and Swelling Meperidine Itching and Rash Sulfamethoxazole-Trimethoprim Other (See Comments) Burned her mouth Immunizations: There is no immunization history on file for this patient. Family History Family History Problem Relation Name Age of Onset Heart Disease Father No Known Problems Mother Lung Cancer Brother Skin Cancer Brother Cancer - Other Sister Rectal cancer that turned into colon,lung cancer etc. Breast Cancer Sister Breast Cancer Sister Leukemia Sister Breast Cancer Sister Lung Cancer Sister Liver Cancer Sister No Known Problems Child Social History Social History Tobacco Use Smoking status: Never Smokeless tobacco: Never Substance Use Topics Alcohol use: Never Review of Systems Constitutional: Patient did not mention fever; no night sweats; poor appetite with tiredness and fatigue and 30 pound weight loss in 3 years duration. 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 No signs of infection or swelling. Eyes: PERRL, conjunctiva normal HEENT: Atraumatic, external ears normal, nose normal, oropharynx moist, no pharyngeal exudates. no sinus tenderness Neck- normal range of motion, no tenderness, supple Respiratory: No respiratory distress, normal breath sounds, no rales, no wheezing Cardiovascular: Normal rate, normal rhythm, no murmurs, no gallops, no rubs GI: Soft, nondistended, normal bowel sounds, nontender, no splenomegaly, no hepatomegaly, no mass, no rebound, no guarding : No costovertebral angle tenderness Musculoskeletal: No edema, no tenderness, no deformities. Back- no tenderness Integument: Well hydrated, no rash, Digits and nails inspection normal Lymphatic: No lymphadenopathy noted Neurologic: Alert & oriented x 3, CN 2-12 normal, normal motor function, normal sensory function, no focal deficits noted Psychiatric: Speech and behavior appropriate ? labs No results found for this or any previous visit (from the past 24 hours). Pathology ? Imaging & Other Studies Performance Status? ECOG performance status 2 Assessment / Plan: ? Hepatocellular carcinoma status post ultrasound-guided liver biopsy done on November 03, 2024 that showed hepatocellular carcinoma with chronic hepatitis with liver cirrhosis. Patient is a 69-year-old female with history of smoking and COPD came into the hospital with shortness of breath and CT chest was performed on November 02, 2023 showed 2.7 cm hepatic lesion which was partially imaged along with worsen ing of the patchy airspace consolidation and interstitial thickening compatible with worsening of pneumonia. There was central right upper lobe airspace opacity with cavitary or cystic changes is present could be underlying pneumonia versus neoplastic process. I have reviewed the pathology report with the patient in detail. MRI of abdomen has been ordered aswell as PET scan which will be done tomorrow. Alpha- fetoprotein was normal. I will also order [employer] ration sequencing. I discussed the management of hepatocellular carcinoma in early stage. Iwill refer her to the surgical oncology while waiting for the MRI and PET scan findings. I will also check hepatitis profile today. We discussed the management and prognosis of early-stage hepatocellular carcinoma as well as management in detail which will include resection versus ablation. I have answered all the questions to patient's satisfaction. Follow-up in 10 days to discuss PET scan, MRI and surgical oncology input. Hyperlipidemia. Patient is on lovastatin. GERD. She is on Prilosec. Thank you very much for allowing me to participate in Melyssacorby Mccall's evaluation and management. Please feel free to contact if I can be of any further assistance in your patient???s care requiring hematology or oncology evaluation. Sincerely, ? ? Sebastian Gipson M.D. cell [employer] COUNSELING She is not a tobacco/nicotine user. Sebastian Gipson MD ,11/14/2024 5:15 PM ? Total time spent 60 minutes, two third of the total time spent counseling patient [id number]. CC:? documented in this encounter Plan of Treatment Scheduled Orders Name Type Priority Associated Diagnoses Orde r Schedule ACUTE HEPATITIS PANEL Lab Routine Hepatocellular carcinoma (CMS/HCC) Ordered: 11/14/2024 MISCELLANEOUS LAB TEST Lab Stat Hepatocellular carcinoma (CMS/HCC) 1 Occurrences starting 11/14/2024 until 11/14/2025 Scheduled Referrals Name Type Priority Associated Diagnoses Orde r Schedule AMB REFERRAL TO SURGICAL ONCOLOGY Outpatient Referral Routine Hepatocellular carcinoma (CMS/HCC) Ordered: 11/14/2024 documented as of this encounter Visit Diagnoses Diagnosis Hepatocellular carcinoma (CMS/HCC)- Primary Malignant neoplasm of liver, primary documented in this encounter
--- OUTSIDE RECORDS SUMMARY | 2024-11-15 11:41 | XMS_ITS | Clinical Summary ---
Author Organization [facility] Dominic novoa [facility] Address [address] [address] Care Team Providers Care Concrete Rubber Name Role Phone Unavailable Primary Care Provider Unavailabl e Allergies Active Allergy Reactions Criticality Noted Date Comments Meperidine Itching,Rash Medium 10/12/2015 Penicillins Anaphylaxis,Swelling High 10/12/2015 Sulfamethoxazole-Trimet hoprim Other (See Comments) 05/23/2021 Burned her mouth Medications albuterol sulfate HFA 90 mcg/actuation aerosol inhaler Take 2 Puffs by inhalation. Active Xtampza ER 13.5 mg capsule,sprinkl e,ER 12hr tmprr 5 Active cyclobenzaprine (FLEXERIL) 5 mg Tablet 5 Active lovastatin (MEVACOR) 40 mg tablet 5 Active solifenacin (VESICARE) 5 mg Tablet 5 Active gabapentin (NEURONTIN) 300 mg capsule 5 Active aspirin (ECOTRIN EC) 81 mg Tablet, Delayed Release (E.C.) Take 81 mg by mouth daily. Active omeprazole (PriLOSEC) 40 mg Capsule, Delayed Release(E.C.) 5 Active CHOLECALCIFEROL , VITAMIN D3, ORAL Take by mouth daily. Active loratadine (CLARITIN ORAL) Take by mouth. Active fexofenadine HCl (MUCINEX ALLERGY ORAL) Take by mouth. A ctive fluticasone propionate (FLONASE BOTH NOSTRIL) Administer in each nostril. Active Active Problems No known active problems Encounters Date Type Department Care Team Description 11/14/2024 4:00 PM CDT Office Visit [facility] Oncology and Hematology - [address] [place] [address] Sebastian Gipson MD Hepatocellular carcinoma (CMS/HCC) (Primary Dx) from Last 3 Months Family History Medical History Relation Name Comments Lung Cancer Brother 1 Skin Cancer Brother 2 No Known Problems Child Heart Disease Father No Known Problems Mother Cancer - Other Sister 1 Rectal cancer that turned into colon,lung cancer etc. Breast Cancer Sister 2 Breast Cancer Sister 3 Leukemia Sister 4 Breast Cancer Sister 5 Liver Cancer Sister 5 Lung Cancer Sister 5 Relation Name Status Comments Brother 1 Brother 2 Alive Child Alive Father Mother Sister 1 Sister 2 Sister 3 Alive Sister 4 Alive Sister 5 Alive Social History Tobacco Use Types Packs/Day [...] Mass Index 14.28 11/14/2024 3:37 PM CDT Plan of Treatment Health Maintenance Due Date Last Done Comments DTAP/TDAP/TD VACCINES (1 - Tdap) 1972 PNEUMOCOCCAL VACCINE 50+ YEA RS (1 of 2 - PCV) 1972 COLORECTAL SCREENING 1998 Colorectal Cancer Screening 1998 FIT-DNA Q 3 years 1998 FIT/FOBT Q 1 year 1998 Flex Sig/CT Colonography Q 5 years 1998 ZOSTER VACCINE (1 of 2) 07/25/2003 RSV VACCINE (60+ or ) (1 - Risk 60-74 years 1-dose series) 2013 BREAST CANCER SCREENING 04/16/2016 04/16/20 15, 04/16/2015, 01/30/2014 OSTEOPOROSIS SCREENING 2018 INFLUENZA VACCINE (#1) 2024 01/13/2018 Insurance [facility] PPO [facility] MEDICAID [id number]
--- OUTSIDE RECORDS SUMMARY | 2024-11-15 11:41 | XMS_ITS | Data Portability ---
Author Organization [employer], Main Office Address [address] [place] [address] Assessment Encounter Date Assessment Date Assessment LastModified by Organization Details LastModified Time 11/20/2022 11/20/2022 This note is dictated and transcribed by [employer]. Correction Officer Supervisor variances may occur. Despite proofreading, typographical errors [...] Recorded Time Metatarsalg ia of right foot 8226244502474 00 Active 2022 Shemar Fairchild DPM [address], [address], [place], [address], [employer] 3 16:36:55 Foot callus 851192511 Active 2022 Shemar Fairchild DPM [address], [address], [place], [address], [employer] 3 16:36:59 Hammer toe 032668068 Active 2022 Shemar Fairchild DPM [address], [address], [place], [address], [employer] 3 16:37:19 Problem Notes None recorded. Procedures Surgical History Date Name Laterality Status Provider Name and Address Organization Details Recorded Time Hysterectomy, Partial completed Joycelyn Bean [facility] 11/20/2022 16:57:02 Appendectomy completed Joycelyn Bean [facility] 11/20/2022 16:57:06 Total hysterectomy completed Joycelyn Bean [facility] 11/20/2022 16:57:18 release of trigger finger completed Joycelyn Bean [facility] 11/20/2022 16:57:28 Tonsillectomy completed Joycelyn Bean [facility] 11/20/2022 16:57:34 Imaging Results None recorded. Procedure Notes None recorded. Medical Equipment None Reported. Allergies Allergen ID Allergen Name Allergen Category Reaction Reaction Severity Criticality Documentation Date Start Date Code Code System Note Provider Name and Address Organization Details Recorded Time 48593 Product containin g penicilli n (product) medicatio n Not available Not available Not available 11/20/2022 66474 8001 SN[facility]ED [facility] 3 16:51:43 02699 meperidin e medicatio n Not available Not available Not available 11/20/2022 6754 RxNorm [facility] 3 16:51:54 56797 sulfadime thoxine Not available Not available Not available Not available 11/20/2022 29854 RxNorm [facility] 3 16:52:05 04913 trimethop rim medicatio n Not available Not available Not available 11/20/2022 85642 RxNorm [facility] 3 16:52:18 Medications Name Sig [...] Body mass index (BMI) Body weight Systolic And Diastolic Provider Name and Address Organization Details Last Updated DateTime 3 81 /min 16 /min 97 % 97 % 167.64 cm 16.9 kg/m2 85954.2 g 142/78 mm[Hg] Joycelyn Bean [facility] [employer] [facility] 3 16:19:04 Date Recorded Body height Body mass index (BMI) Body weight Heart rate Respiratory rate Oxygen saturation Oxygen saturation in Arterial blood by Pulse oximetry Systolic And Diastolic Provider Name and Address Organization Details Last Updated DateTime 3 167.64 cm 16.9 kg/m2 26799.2 g 72 /min 14 /min 97 % 97 % 134/69 mm[Hg] Joycelyn Bean [facility] [employer] [facility] 3 14:02:12 Social History Question Answer Notes LastModified by Organizat ion Details LastModified Time Tobacco Smoking Status Current Every Day Smoker Joycelyn amin [facility] 11/20/2022 16:56:20 What Is Your Level Of [...] SNOMED-CT Code Diagnosis ICD10 Code Diagnosis Note [id number] Shemar Fairchild DPM [facility] [place] [address] [facility] [address] [place] [address] 11/20/2022 16:13:05 11/25/2022 16:43:24 Metatarsalgia of right foot 5412167913 72032 M77.41 sub 3rd metatarsal head, right footas above Foot callus 960050701 L8 4 sub 3rd metatarsal headMildOf floading with metatarsal pad had to functional orthoticse ducated on supportive shoe gearFollow -up in 1 month Hammer toe 265758355 M20 .41 right 2nd 3rd toes mildEducat ed on treatment optionCont inue with conservati ve therapy [id number] Shemar Fairchild DPM [facility] [place] [address] [facility] [address] [place] [address] 12/18/2022 13:48:12 12/18/2022 14:26:06 Hammer toe 663410760 M20.41 right 2nd 3rd toes mildpatien t would like to continue with conservati ve therapyrec ommend silicone sleeves and soft high toe box shoe to prevent wounds infectionF ollow-up as needed Foot callus 025019289 L8 4 sub 3rd metatarsal headresolv ed with offloading Metatarsal ella of right foot 6430237936 88634 M77.41 sub 3rd metatarsal head, right footResolv [...] 12/15/2022 1 [place] Melyssa A Cal [id number] Melyssa A Cal 12/15/2022 2 [place] Melyssa A [place] [id number] Melyssa A Cal 09/04/2022 1 HUMANA - GOLD PLUS (MEDICARE REPLACEMENT/A DVANTAGE - HMO) [id number] Melyssa A Cal [id number] Melyssa A Cal Notes Date Note [...] area. Patient has been seen by another telephone order supervisor to which she has custom orthotics and [...] Fairchild DPM [address], [address], [place], [address], [employer] 11/25/2022 12:13:28 12/18/2022 text/html . Patient is [...] Fairchild DPM [address], [place], [address], [employer] 12/18/2022 14:07:57 OBGyn Episode No OBEpisode recorded.
== END 2024-11-15 11:28 | disposition home or self-care (01) ==
LOC: ANHIMG 11:28
PROVIDERS: PCP Family Medicine; Visit Provider Family Medicine
DX: C22.0 Liver cell carcinoma (principal); J18.9 Pneumonia, unspecified organism; R59.9 Enlarged lymph nodes, unspecified
CPT/HCPCS: 78815; A9552

== ENCOUNTER 2024-11-15 13:58 | Outpatient (CLI) | payer MEDICARE, MEDICAID, SELFPAY ==
--- OUTSIDE RECORDS SUMMARY | 2024-11-15 14:03 | XMS_ITS | Clinical Summary ---
Author Organization [facility] [employer] Address [address] [facility] [place] [address] Care Team Providers Care Supply Chain Business Analyst Name Role Phone Tommy King DO Primary Care Provider [phone] Source Comments [facility],non-owned Affiliates and Associated Physician Practices is amultiple site organization consisting of ambulatory clinics and hospital sitesin [place], [place], [place] and [place]. This disclosure is being madepursuant to the Care Everywhere program and may not contain all information available regarding this patient. Last updated 18.[facility] Allergies Active Allergy Reactions Criticality Noted Date [...] fluticasone propionate (FLONASE) 50 MCG/ACT nasal spray [place] 2 sprays into the nose once [...] 36.8 C (98.3 F) 06/12/2021 10:53 AM RIBBON TIER Respiratory Rate 18 05/23/2021 12:51 PM RIBBON TIER Oxygen Saturation 91% 08/05/2021 9:59 AM [...] this topic Medical Devices Implanted Type Area Construction Code Administrator Device Identifier Shelf Expiration Date Model / Serial / Lot Lead Nrstm 60cm Penta 3mm Pdl 16 [facility] - [id number] Implanted:Qty: 1 on 05/23/2021 by Esau Rose MD [place] [facility] [place] [employer] 10/19/2022 [id number] / [id number] / Slnt Dura Duraseal Pg Trilysine Amine 5 Implanted:Qty: 1 on 05/23/2021 by Esau Rose MD at [facility] [place] Back [employer] Erendira [id number] / / [id number] Gntr Nrstm 1.95inx2.19in [employer] Elt - [id number] Implanted:Qty: 1 on 05/23/2021 by Esau Rose MD at [facility] [facility] [place] Left: Back [employer] 03/26/2023 3660 / [id number] / Insurance MEDICARE MEDICAID - [place] [employer] MANAGED MEDICARE ADV MEDICAID SPEND[place] SELF PAY NO INSURANCE Member Subscriber Plan / Payer (Ef fective for All Dates) Name:Melyssa Mccall Member ID:Not on file Relation to Subscriber:Not on file Name:MELYSSA MCCALL Subscriber ID:Not on file (Home) Address: [address] [place] [address] [place] [address] Payer ID:Not on file Group ID:Not on file Type:Self Pay Address: [facility] MANAGED MEDICARE [facility] MEDICARE MEDICAID - OUT OF STATE Care Teams Supply Chain Business Analyst Relationship Specialty Start Date End Date Tommy King DO PCP - General Internal Medicine 04/23/21
--- OUTSIDE RECORDS SUMMARY | 2024-11-15 14:04 | XMS_ITS | Continuity of Care Document ---
Author Organization [facility] Address [address] [facility] [address] [place] [address] Phone Care Team Providers Care Business Office Technology Instructor Name Role Phone Sherif Doyle MD [...] Patch - Active Miacalcin 200 unit/Actuation Nasal [place] Aerosol 1 spray each nostril qd - [...] Encounter [facility], [address], [id number], [place] tel:[phone] [facility] No Information 6 Vivek Gorman. [address] [place] [address], [id number] , [place]. tel:[phone] Offic/outpt E&m Estab Minor 10 [facility], [address] [address], [place], [place], [id number], [place] tel:[phone] [facility] No Information 6 José Luis Sullivan. [address] [facility], [address], [id number] , [place]. tel:[phone] Referring Provider: Nate Ordonez V, [address], [address] . tel:[phone] [facility], [address], [place], [place], [address], [place] tel:[phone] [facility] No Information 6 José Luis Sullivan. [address], [place], [place], [id number] , [place]. tel: [phone] Referring Provider: Nate Ordonez V, [address], [place], [address] . tel:[phone] [facility], [address], [place], [place], [address], [place] tel:[phone] [facility] No Information 6 José Luis Sullivan. [address], [place], [place], [id number] , [place]. tel: [phone] Referring Provider: Nate Ordonez V, [address], [place], [address] . tel:[phone] Offic/outpt E&m Estab Low-mod [facility], [address], [place], [place], [address], [place] tel:[phone] [facility] No Information 6 José Luis Sullivan. [address], [place], [place], [address] , [place]. tel:[phone] Referring Provider: Nate Ordonez V, [address], [place], [address] . tel:[phone] Offic/outpt E&m Estab Low-mod [facility], [address], [place], [place], [address], [place] tel:[phone] [facility] No Information 6 José Luis Sullivan. [address], [place], [place], [address] , [place]. tel: [phone] Referring Provider: Nate Ordonez V, [address], [place], [address] . tel:[phone] Offic/outpt E&m Estab Minor 10 [facility], [address], [place], [place], [address], [place] tel:[phone] [facility] No Information May-0 9-200 6 José Luis Sullivan. [address], [place], [place], [address] , [place]. tel:[phone] Referring Provider: Nate Ordonez V, [address], [place], [address] . tel:[phone] [facility], [address], [place], [place], [address], [place] tel:[phone] [facility] No Information May-0 5-200 6 José Luis Sullivan. [address], [place], [place], [id number] , [place]. tel:[phone] Referring Provider: Nate Ordonez V, [address], [place], [address] . tel:[phone] [facility], [address], [place], [place], [address], [place] tel:[phone] [facility] No Information May-0 2-200 6 José Luis Sullivan. [address], [place], [place], [id number] , [place]. tel:[phone] Referring Provider: Nate Ordonez V, [address], [place], [address] . tel:[phone] [facility], [address], [place], [place], [id number], [place] tel:[phone] [facility] No Information Apr-2 8-200 6 Ordonez Nate. [address], [place], [place], [id number] , [place]. tel:[phone] Referring Provider: Nate Ordonez V, [address], [place], [address] . tel:[phone] [facility], [address], [place], [place], [address], [place] tel:[phone] [facility] No Information Aug- 5-200 6 José Luis Sullivan. [address], [place], [place], [id number] , [place]. tel:[phone] Referring Provider: Nate Ordonez V, [address], [place], [address] . tel:[phone] [facility], [address], [place], [place], [address], [place] tel:[phone] [facility] NANCY No Information 6 José Luis Sullivan. [address], [place], [place], [address] , [place]. tel:[phone] Referring Provider: Nate Ordonez V, [address], [place], [address] . tel:[phone] [facility], [address], [place], [place], [address], [place] tel:[phone] [facility] NANCY No Information 200 6 José Luis Sullivan. [address], [place], [place], [address] , [place]. tel:[phone] Referring Provider: Nate Ordonez V, [address], [place], [address] . tel:[phone] Offic Cons New/estab Mod-hi 60 [facility], [address], [place], [place], [address], [place] tel:[phone] [facility] NANCY No Information 8-200 6 José Luis Sullivan. [address], [facility] [address], [place], [place], [id number] , [place]. tel:[phone] Referring Provider: Nicho Goldstein MD B, [address] [place], [address]. tel:[phone] Family History Family Member Type Diagnosis Age At Onset Gen Fam Hx Problem (finding) Cancer Gen Fam Hx Problem (finding) Stroke Payers Payer name Insurance type Covered libertarian ID Authorstepha jevon(s) BCBS Of [facility] [id number] Social History Type Description Quantity Date Captured [...]
--- OUTSIDE RECORDS SUMMARY | 2024-11-15 14:04 | XMS_ITS | Clinical Summary ---
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
--- OUTSIDE RECORDS SUMMARY | 2024-11-15 14:04 | XMS_ITS | Clinical Summary ---
Author Organization [facility] Dominic novoa [facility] Address [address] [place] [address] Care Team Providers Care Vice Chancellor Name Role Phone Unavailable Primary Care Provider [...] Description 11/14/2024 4:00 PM CDT Office Visit [facility] Oncology and Hematology - [address] [place] [address] Sebastian Gipson MD Hepatocellular carcinoma [...] 2018 INFLUENZA VACCINE (#1) 2024 01/13/2018 Insurance [facility] PPO [facility] MEDICAID [place]
--- OUTSIDE RECORDS SUMMARY | 2024-11-15 14:04 | XMS_ITS | Encounter Summary ---
Author Organization [facility] MAYRA Nelson [facility] Address [address] [place] [address] Care Team Providers Care Under Sheriff Name Role Phone Unavailable Primary Care Provider Unavailabl e Reason for Referral * Eval and Treat (Routine) - Open Specialty Diagnoses / Procedures Referred By Ayo kenny Referred To Contact Surgery / Oncology Diagnoses Hepatocellular carcinoma (CMS/HCC) Procedures OK OFFICE/OUTPATIENT ESTABLISHED MOD MDM 30 MIN OK OFFICE/OUTPATIENT NEW MODERATE MDM 45 MINUTES Sebastian Gipson MD [address] [place] [address] Phone: tel: fax: Mary Rand MD [address] [facility] [address] [place] [address] Phone: tel: fax: Referral ID Status Reason Start Date Expiration Date Visits Re quested Visits Authorized [id number] Open 11/14/2024 11/14/2025 1 1 Reason for Visit * Reason Comments Establish Care Cancer Encounter Details Date Type Department Care Team (Late st Contact Info) Description 11/14/2024 4:00 PM CDT Office Visit [facility] Oncology and Hematology - [address] Karla Everett [address] [address] Sebastian Gipson MD [address] [place] [address] Hepatocellular carcinoma (CMS/HCC) (Primary Dx) [...] dysuria; no frequency; no hesitancy; no hematuria MICE RAISER: Musculosketetal: Patient did not mention bone pain; [...] of the total time spent counseling patient [id number]. CC:? documented in this encounter Plan of [...]
--- OUTSIDE RECORDS SUMMARY | 2024-11-15 14:04 | XMS_ITS | Referral Summary ---
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
== END 2024-11-15 13:59 | disposition home or self-care (01) ==
PROVIDERS: PCP Family Medicine; Visit Provider Internal Medicine Hematology & Oncology
DX: C22.0 Liver cell carcinoma (principal)
CPT/HCPCS: 36415

== ENCOUNTER 2024-11-19 16:23 | Inpatient (IN) | payer MEDICARE, MEDICAID, SELFPAY ==
[2024-11-19] VITALS (13 sets, daily range): BP systolic 104–112; BP diastolic 55–98; PULSE 102–129; RESP 15–32; TEMP 36.8; O2SAT 96–100; BMI 14.1
--- NOTE | ~2024-11-19 | CT_ITS ---
Clinical Indication: Dyspnea, malignancy, recurrent pneumonia CT Scan of the Chest with Contrast: Technique: Contiguous sections were acquired throughout the chest after intravenous administration of 100 cc of Omnipaque 350. Dose reduction technique was used on this scan by utilizing automated expos ure control and iterative reconstruction technique. The dose-length product (DLP) was 142.88 mGy-cm. COMPARISON: 11/01/2024 Findings: There is no evidence of any significant mediastinal, hilar or axillary lymphadenopathy. There is no f illing defect in the pulmonary arterial tree to suggest pulmonary embolus. There is no evidence of ao rtic dissection or aneurysm. There is no evidence of pleural or pericardial effusion. There is much more extensive and dense right upper lobe consolidation as compared to prior exam, comp atible significant worsening of pneumonia. Elevated atelectasis or underlying neoplasm cannot be excl uded. Questional areas of necrotic change versus bronchiectasis within the areas of consolidation. Th ere is underlying advanced COPD/emphysema with bibasilar mild interstitial prominence. Images through the upper abdomen reveal probable partially imaged splenomegaly. Impression: Significantly worsened right upper lobe consolidation, compatible with worsening pneumonia. Element o f underlying atelectasis or neoplastic disease cannot be excluded. Question where is necrotic change versus bronchiectasis within the areas of consolidation. Underlying advanced COPD/emphysema. Partially imaged probable splenomegaly. No pulmonary embolus, aortic aneurysm, or aortic dissection. Reviewed, dictated and finalized at [facility]. Impression: Significantly worsened right upper lobe consolidation, compatible with worsenin g pneumonia. Element of underlying atelectasis or neoplastic disease cannot be excluded. Question where is necrotic change versus bronchiectasis within the ar eas of consolidation. Underlying advanced COPD/emphysema. Partially imaged probable splenomegaly. No pulmonary embolus, aortic aneurysm, or aortic dissection.
--- NOTE | ~2024-11-19 | XR_ITS ---
EXAMINATION: XR chest 1V portable Exam Date/Time: 11/22/2024 15:15 CDT HISTORY: post bronchoscopy Comparison: 11/22/2024 at 8:46 AM; CTA chest 11/19/2024. RESULT: Lines, tubes, and devices: None. Lungs and pleura: Severe emphysematous change. Stable right upper lobe lobar consolidation. Nodular opacities in the right midlung, also stable. Slightly increased right lung groundglass opacity. Mild right costophrenic angle blunting. Biapical pleural scarring. Right apical pleural calcification. Cardiomediastinal silhouette: Stable. Other: No acute osseous or upper abdominal finding. IMPRESSION: Increased ground glass opacities in right lung which may represent mild edema overlying chronic right upper and mid lung consolidation and severe emphysematous change. Likely small right pleural effusio n. Reviewed, dictated and finalized at [facility]. IMPRESSION: Increased ground glass opacities in right lung which may represent mild edema o verlying chronic right upper and mid lung consolidation and severe emphysematou s change. Likely small right pleural effusion.
--- NOTE | ~2024-11-19 | XR_ITS ---
XR chest 2V 11/22/2024 08:51 Indication: Pneumonia Procedure: 2 view chest Comparison: Comparison to multiple prior studies sequentially, with oldest reviewed study dated 05/2024. Findings: Stable right upper lobe pneumonia. Heart size normal. Coarse interstitial changes are prese nt in the lung bases, likely chronic. Small right pleural effusion. The lungs are hyperinflated which is consistent with, but not diagnostic of chronic obstructive pulmonary disease. There is left apica l pleural thickening/scarring. Impression: 1: Stable right upper lobe pneumonia. Reviewed, dictated and finalized at location A. Impression: 1: Stable right upper lobe pneumonia.
--- NOTE | ~2024-11-19 | XR_ITS ---
Portable chest x-ray Comparison: 11/01/2024 Clinical History: Dyspnea Findings: Marked worsening of right upper lobe consolidation is present, compatible with worsening p neumonia. Underlying COPD pattern present. Cardiomediastinal silhouette is stable. Bones and soft ti ssues are unremarkable. Impression: Marked worsening of right upper lobe pneumonia/consolidation. Underlying COPD. Reviewed, dictated and finalized at location M. Impression: Marked worsening of right upper lobe pneumonia/consolidation. Underlying COPD.
--- OUTSIDE RECORDS SUMMARY | 2024-11-19 16:25 | XMS_ITS | Encounter Summary ---
Author Organization [facility] Address [address] [place] [address] Care Team Providers Care Biofuels Engineering Manager Name Role Phone Unavailable Primary Care Provider Unavailabl e Encounter Details Date Type Department Care Team (Late st Contact Info) Description 11/16/2024 External Device Data [place] ABSTRACTION Provider, Abstract NO ADDRESS ON FILE Social History Tobacco Use Types Packs/Day Years [...] on file documented as of this encounter Plan of Treatment Upcoming Encounters Date Type Department Care Team (Late st Contact Info) Description 12/01/2024 2:00 PM CDT Office Visit [facility] Oncology and Hematology - [address] [facility] [address] [place] [address] Sebastian Gipson MD [address] [facility] [address] [place] [address] 12/05/2024 10:00 AM CDT Office Visit [facility] Surgical Oncology [place] [address] [facility] [address] [place] [address] Mary Rand MD [address] [place] [address] documented as of this encounter Visit Diagnoses Not on filedocumented in this encounter
--- OUTSIDE RECORDS SUMMARY | 2024-11-19 16:25 | XMS_ITS | Encounter Summary ---
Author Organization [facility] Address [address] [place] [address] Care Team Providers Care Magazine Writer Name Role Phone Unavailable Primary Care Provider Unavailabl e Reason for Visit * Reason Onset Date Comments Patient Communication 11/18/2024 Encounter Details Date Type Department Care Team (Late st Contact Info) Description 11/18/2024 Telephone [facility] Surgical Oncology [place] [address] [place] [address] Mary Rand MD [address] [place] [address] Patient Communication Social History Tobacco Use Types Packs/Day Years [...] on file documented as of this encounter Miscellaneous Notes * Telephone Encounter - Jahaira Gutierrez - 11/18/2024 9:57 AM CDT Call placed to patient informed patient that we did try and get her appointment moved up however due to her stimulator Aracelis is unable to perform her MRI patient verbalized understanding and will keep her 12/03/2024 appointment with [facility] imaging. We will see patient on , documented in this encounter Plan of Treatment Upcoming Encounters Date Type Department Care Team (Late st Contact Info) Description 12/01/2024 2:00 PM CDT Office Visit [facility] Oncology and Hematology - [address] [facility] [address] [place] [address] Sebastian Gipson MD [address] [facility] [address] [place] [address] 12/05/2024 10:00 AM CDT Office Visit [facility] Surgical Oncology [place] [address] [place] [address] Mary Rand MD [address] [facility] [address] [place] [address] documented as of this encounter Visit Diagnoses Not on filedocumented in this encounter
--- OUTSIDE RECORDS SUMMARY | 2024-11-19 16:25 | XMS_ITS | Encounter Summary ---
Author Organization [facility] Address [address] [place] [address] Care Team Providers Care Paralegal Instructor Name Role Phone Unavailable Primary Care Provider Unavailabl e Encounter Details Date Type Department Care Team (Late Contact Info) Description 11/15/2024 Orders Only [facility] Oncology and Hematology - [address] [place] [address] Sebastian Gipson MD [address] [place] [address] Social History Tobacco Use Types Packs/Day Years [...] Encounters Date Type Department Care Team (Late Contact Info) Description 12/01/2024 2:00 PM CDT Office Visit [facility] Oncology and Hematology - [address] Jeanne [address] [place] [address] Sebastian Gipson MD [address] [place] [address] 12/05/2024 10:00 AM CDT Office Visit [facility] Surgical Oncology [place] [address] [facility] [address] [place] [address] Mary Rand MD [address] [facility] [address] [place] [address] documented as of this encounter Visit Diagnoses Not on filedocumented in this encounter
--- OUTSIDE RECORDS SUMMARY | 2024-11-19 16:25 | XMS_ITS | Clinical Summary ---
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
--- OUTSIDE RECORDS SUMMARY | 2024-11-19 16:25 | XMS_ITS | Encounter Summary ---
Author Organization [facility] Address [address] [place] [address] Care Team Providers Care Care Management Coordinator Name Role Phone Unavailable Primary Care Provider Unavailabl e Encounter Details Date Type Department Care Team (Late Contact Info) Description 11/18/2024 Orders Only [facility] Gynecologic Oncology [place] [address] [place] [address] Mary Rand MD [address] [place] [address] Hepatocellular carcinoma (CMS/HCC) (Primary Dx) Social History [...] Description 12/01/2024 2:00 PM CDT Office Visit [facility] Oncology and Hematology - [address] [facility] [address] [place] [address] Sebastian Gipson MD [address] [facility] [address] [place] [address] 12/05/2024 10:00 AM CDT Office Visit [facility] Surgical Oncology [place] [address] [place] [address] Mary Rand MD [address] [place] [address] documented as of this encounter Visit Diagnoses Diagnosis Hepatocellular carcinoma (CMS/HCC)- Primary Malignant neoplasm of liver, primary documented in this encounter
--- OUTSIDE RECORDS SUMMARY | 2024-11-19 16:26 | XMS_ITS | Clinical Summary ---
Author Organization [facility] Address [address] [place] [address] Care Team Providers Care Assembler Dc Field Yoke Name Role Phone West Pino MD Unavailable [phone] Yvan Jaime MD Unavailable [phone] None, Provider MD Primary Care Provider Unavaila [...] CDT Gender Identity Female 05/09/2021 3:57 PM [employer] OFFICER Sexual Orientation Straight 05/09/2021 3: 57 PM [employer] OFFICER Last Filed Vital Signs Vital Sign Reading Time Taken Comments Blood Pressure 106/60 03/28/2022 9:13 AM [employer]ICE OFFICER Pulse 80 03/28/2022 9:13 AM [employer]ICE OFFICER Temperature 36.1 C (97 F) 03/28/2022 9:13 AM [employer]ICE OFFICER Respiratory Rate 20 03/28/2022 9:13 AM [employer]ICE OFFICER Oxygen Saturation 94% 03/28/2022 9:13 AM V[employer]ICE OFFICER Inhaled Oxygen Concentration - - Weight 52.6 kg (116 lb) 03/28/2022 9:13 AM [employer]ICE OFFICER Height 167.6 cm (5' 6) 03/28/2022 9:13 AM VICE S[employer]AD POLICE OFFICER Body Mass Index 18.72 03/28/2022 9:13 AM [employer]ICE OFFICER Plan of Treatment Upcoming Encounters Date Type Department Care Team (Late st Contact Info) Description 12/03/2024 9:[address] [facility] [place] [address] Grace Mondragon DO [address] [place] [address] Health Maintenance Due Date Last Done Comments [...] this topic Medical Devices Implanted Type Area Mash Tub Cooker Device Identifier Shelf Expiration Date Model / Serial / Lot Stimulator Lead Implant-2021 Implanted: by Esau Rose MD (Quantity not on file) Lead Implant Spine Thoracic [employer] - DIV GO LANI [id number] PENTA / / Description:T8-T9 Stent Bard Animas 6fr X 24cm - [id number] Implanted:Qty : 1 on 05/17/2019 by West Pino MD at [facility] Stent Left: Ureter [employer] - DIV C R BARD INC 05/12/2023 [id number] / / [id number] Stent Bard Animas 6fr X 24cm - [id number] Implanted:Qty : 1 on 05/17/2019 by West Pino MD at [facility] Stent Right: Ureter [employer] - DIV C R [employer] 05/12/2023 [id number] / / [id number] Stent Ureteral Pigtail 6fr 24cm Crv Taper Tip - [id number] Implanted:Qty : 1 on 02/26/2021 by West Pino MD at [facility] Stent Left: Ureter [employer] LAN[employer] [id number] 11/28/2023 [id number] / / [id number] Stimulator Implant-2021 Implanted:Qty : 1 on 05/23/2021 by Esau Rose MD Stimulator Implant Back [facility] C[facility] - DIV ST FELIPA 3660 PROCLAIM / [id number] / Description:MR CONDITIONAL A T 1.5 T ONLY, NEED REMOTE TO CHECK IMPEDANCE AND TURN OFF STIMULATION, FOLLOW SCAN CONDITIONS IN MOST RECENT MRI TECHNICAL MANUAL Procedures Procedure Name Priority Date/Time Associated Diagnosis Comments MG SCREENING PAIGE DIGI Routine 04/16/2015 3:06 PM VICE [employer]ICE OFFICER from Last 3 Months or Most Recently Relevant to Health Maintenance Results * MG SCREENING PAIGE DIGI (04/16/2015 3:06 PM VICE [employer]ICE OFFICER) Anatomical Region Laterality Modality Breast Bilateral Mammography 04/16/2015 3:06 PM VICE S[employer]AD POLICE OFFICER 04/16/2015 3:06 PM VICE S[employer]AD POLICE OFFICER Narrative 04/16/2015 3:24 PM VICE [employer]ICE OFFICER MELYSSA MCCALL ADMIT/SERVICE DATE: 04/16/15 ACCT: [id number] DISCHARGE DATE: : 1955 SEX: F ORD SITE: [facility] PT TYPE: REG CLI ORDERING MD: MANE RAMIREZ MD STUDY DATE REPORT # ORDER # EXT ORDER ID 04/16/15 [id number] PROC CODE: SCMAMDGB PROCEDURE DESCRIPTION: MG SCREEN [...] - 02/26/2018 MELYSSA MCCALL ADMIT/SERVICE DATE:04/16/15 ACCT: [id number] DISCHARGE DATE: : 1955 SEX: F ORD SITE: [facility] PT TYPE: REG CLI ORDERING MD:MANE RAMIREZ MD STUDY DATE REPORT # ORDER # EXT ORDER ID 04/16/15 [id number] PROC CODE: SCMAMDGB PROCEDURE DESCRIPTION: MG SCREEN [...] Most Recently Relevant to Health Maintenance Insurance MEDICAID [facility] Advance Directives * Full Code (Latest Code Status on File) Date Activated Date Inactivated Comments 02/26/2021 1:01 PM 02/26/2021 3:43 PM Care Teams Assembler Dc Field Yoke Relationship Specialty Start Date End Date None, Provider, PCP - General UNKNOWN PHYSICIAN SPECIALTY 03/28/22 West Pino MD UROLOGY 05/03/19 Yvan Jaime MD [address] [place] [address] Surgeon NEUROLOGICAL SURGERY 05/03/19
--- OUTSIDE RECORDS SUMMARY | 2024-11-19 16:26 | XMS_ITS | Clinical Summary ---
Author Organization [facility] Address [address] [facility] [place] [address] Care Team Providers Care Product/Industry Consultant Name Role Phone Tommy King DO Primary Care Provider [phone] Source Comments [facility],non-owned Affiliates and Associated Physician Practices is amultiple site organization consisting of ambulatory clinics and hospital sitesin [place], [place], [place] and [place]. This disclosure is being madepursuant to the Care Everywhere program and may not contain all information available regarding this patient. Last updated 18.[facility] Allergies Active Allergy Reactions Criticality [...] fluticasone propionate (FLONASE) 50 MCG/ACT nasal spray Weaver 2 sprays into the nose once daily [...] 36.8 C (98.3 F) 06/12/2021 10:53 AM SENIOR ACCOUNT DIRECTOR Respiratory Rate 18 05/23/2021 12:51 PM SENIOR ACCOUNT DIRECTOR Oxygen Saturation 91% 08/05/2021 9:59 AM [...] this topic Medical Devices Implanted Type Area Children'S Lunchroom Supervisor Device Identifier Shelf Expiration Date Model / Serial / Lot Lead Nrstm 60cm Penta 3mm Pdl 16 [facility] - [id number] Implanted:Qty: 1 on 05/23/2021 by Esau Rose MD at [facility] Back Advanced Neuromodulation Systems 10/19/2022 [id number] / [id number] / Slnt Dura Duraseal Pg Trilysine Amine 5 Implanted:Qty: 1 on 05/23/2021 by Esau Rose MD at [facility] Back Inte[employer] Erendira [id number] / / [id number] Gntr Nrstm 1.95inx2.19in Proclaim Elt - [id number] Implanted:Qty: 1 on 05/23/2021 by Esau Rose MD at [facility] Left: Back St [employer] 03/26/2023 3660 / [id number] / Insurance MEDICARE MEDICAID - [place] [employer] MANAGED MEDICARE ADV MEDICAID SPEND[place] SELF PAY NO INSURANCE Member Subscriber Plan / Payer (Ef fective for All Dates) Name:Melyssa Mccall Member ID:Not on file Relation to Subscriber:Not on file Name:MELYSSA MCCALL Subscriber ID:Not on file (Home) Address: [address] [place] [address] [place] [address] Payer ID:Not on file Group ID:Not on file Type:Self Pay Address: [facility] MANAGED MEDICARE [facility] MEDICARE MEDICAID - OUT OF STATE Care Teams Product/Industry Consultant Relationship Specialty Start Date End Date Tommy King DO PCP - General Internal Medicine 04/23/21
--- OUTSIDE RECORDS SUMMARY | 2024-11-19 16:26 | XMS_ITS | Continuity of Care Document ---
Author Organization [facility] Address [address] [facility] [address] [place] [address] Phone Care Team Providers Care Psychologist Engineering Name Role Phone Sherif Doyle MD Unavailable Unavailable Allergies, Adverse Reactions, Alerts Substance Reaction Status Criticality PENICILLIN G POTASSIUM Active No In formation MEPERIDINE HCL Active No Informatio n Medications Medication Instructions Dosage Effective Dates (start - stop) Status Comments METHADOSE 5 MGTABLET tk 2 ts qd - Acti ve Lidoderm 5 % (700 mg/patch) Adhesive Patch - Active Miacalcin 200 unit/Actuation Nasal [place] Aerosol 1 spray each nostril qd [...] Encounter [facility], [address], [id number], [place] tel:[phone] [facility] No Information 6 Vivek Gorman. [address] [place] [address], [id number] , [place]. tel:[phone] Offic/outpt E&m Estab Minor 10 [facility], [address] [place] [address], [place], [id number], [place] tel:[phone] [facility] No Information 6 José Luis Sullivan. [address] [facility], [address], [id number] , [place]. tel:[phone] Referring Provider: Nate Ordonez V, [address], [address] . tel:[phone] [facility], [address], [place], [place], [id number], [place] tel:[phone] [facility] No Information 6 José Luis Sullivan. [address], [address], [place], [place], [id number] , [place]. tel: [phone] Referring Provider: Nate Ordonez V, [address], [place], [address] . tel:[phone] [facility], [address], [place], [place], [id number], [place] tel:[phone] [facility] No Information 6 José Luis Sullivan. [address], [address], [place], [place], [id number] , [place]. tel: [phone] Referring Provider: Nate Ordonez V, [address], [place], [address] . tel:[phone] Offic/outpt E&m Estab Low-mod [facility], [address], [place], [id number], [place] tel:[phone] [facility] No Information 6 José Luis Sullivan. [address], [address], [place], [id number] , [place]. tel:[phone] Referring Provider: Nate Ordonez V, [address], [place], [address] . tel:[phone] Offic/outpt E&m Estab Low-mod [facility], [address], [place], [id number], [place] tel:[phone] [facility] No Information 6 José Luis Sullivan. [address], [address], [place], [place], [id number] , [place]. tel: [phone] Referring Provider: Nate Ordonez V, [address], [place], [address] . tel:[phone] Offic/outpt E&m Estab Minor 10 [facility], [address], [place], [id number], [place] tel:[phone] [facility] No Information May-0 9-200 6 José Luis Sullivan. [address], [address], [place], [place], [id number] , [place]. tel:[phone] Referring Provider: Nate Ordonez V, [address], [place], [address] . tel:[phone] [facility], [address], [place], [place], [id number], [place] tel:[phone] [facility] No Information May-0 5-200 6 José Luis Sullivan. [address], [address], [place], [id number] , [place]. tel:[phone] Referring Provider: Nate Ordonez V, [address], [place], [address] . tel:[phone] [facility], [address], [place], [address], [place] tel:[phone] [facility] No Information May-0 2-200 6 José Luis Sullivan. [address], [address], [place], [place], [id number] , [place]. tel:[phone] Referring Provider: Nate Ordonez V, [address], [place], [address] . tel:[phone] [facility], [address], [place], [place], [address], [place] tel:[phone] [facility] No Information Apr-2 8-200 6 Ordonez Nate. [address], [address], [place], [id number] , [place]. tel:[phone] Referring Provider: Nate Ordonez V, [address], [place], [address] . tel:[phone] [facility], [address], [place], [place], [address], [place] tel:[phone] [facility] No Information Aug- 5-200 6 José Luis Sullivan. [address], [address], [place], [place], [id number] , [place]. tel:[phone] Referring Provider: Nate Ordonez V, [address], [place], [address] . tel:[phone] [facility], [address], [place], [place], [id number], [place] tel:[phone] [facility] NANCY No Information 6 José Luis Sullivan. [address], [address], [place], [place], [id number] , [place]. tel:[phone] Referring Provider: Nate Ordonez V, [address], [place], [address] . tel:[phone] [facility], [address], [place], [place], [address], [place] tel:[phone] [facility] NANCY No Information 200 6 José Luis Sullivan. [address], [address], [place], [place], [address] , [place]. tel:[phone] Referring Provider: Nate Ordonez V, [address], [place], [address] . tel:[phone] Offic Cons New/estab Mod-hi 60 [facility], [address], [place], [place], [address], [place] tel:[phone] [facility] NANCY No Information 8-200 6 José Luis Sullivan. [address], [facility] [address], [place], [place], [id number] , [place]. tel:[phone] Referring Provider: Nicho Goldstein MD B, [address] [place], [address]. tel:[phone] Family History Family Member Type Diagnosis Age At Onset Gen Fam Hx Problem (finding) Cancer Gen Fam Hx Problem (finding) Stroke Payers Payer name Insurance type Covered alliance party ID Authorstepha jevon(s) BCBS Of [facility] [id number] Social History Type Description Quantity Date Captured [...]
--- OUTSIDE RECORDS SUMMARY | 2024-11-19 16:26 | XMS_ITS | Encounter Summary ---
Author Organization [facility] Address [facility] [place] [address] Care Team Providers Care Junction Maker Name Role Phone Milena Dos Santos MD Primary Care Provider [phone] Tommy King DO Primary Care Provider [phone] West Pino MD Unavailable [phone] Yvan Jaime MD Unavailable [phone] None, Provider MD Primary Care Provider Unavaila ble Encounter Details Date Type Department Care Team (Latest Contact Info) Description 03/09/2018 Abstract [facility] Medical Group Michael Mclean MD Social History Tobacco Use Types Packs/Day Years Used Date Smoking Tobacco: Smoker, Current Status Unknown Comments Unknown Sex and Gender Information Value Date Recorded Sex Assigned at Not on file Legal Sex Female 11:35 PM CDT Gender Identity Female 05/09/2021 3:57 PM TRANSPORT PILOT Sexual Orientation Straight 05/09/2021 3: 57 PM TRANSPORT PILOT documented as of this encounter Plan of Treatment Upcoming Encounters Date Type Department Care Team (Late st Contact Info) Description 12/03/2024 9:[address] [facility] [address] Grace Mondragon DO [address] [place] [address] documented as of this encounter Visit Diagnoses Not on filedocumented in this encounter Care Teams Junction Maker Relationship Specialty Start Date End Date Milena Dos Santos MD [address] [place] [address] PCP - General 06/03/16 04/03/19 Tommy King DO [address] [place] [address] PCP - General INTERNAL MEDICINE 04/04/19 03/27/22 None, MD Shena PCP - General UNKNOWN PHYSICIAN SPECIALTY 03/28/22 West Pino MD [address] [place] [address] UROLOGY 05/03/19 Yvan Jaime MD [address] [place] [address] Surgeon NEUROLOGICAL SURGERY 05/03/19 documented as of this encounter
--- OUTSIDE RECORDS SUMMARY | 2024-11-19 16:26 | XMS_ITS | Data Portability ---
Author Organization [facility], Main Office Address [address] [place] [address] Assessment Encounter Date Assessment Date Assessment LastModified by Organization Details LastModified Time 11/20/2022 11/20/2022 This note is dictated and transcribed by [employer]. Sintering Plant Supervisor variances may occur. Despite proofreading, typographical [...] Recorded Time Metatarsalg ia of right foot 6491977323796 00 Active 2022 Shemar Fairchild DPM [address], [address], [place], [address], [facility] 3 16:36:55 Foot callus 344355451 Active 2022 Shemar Fairchild DPM [address], [address], [place], [address], [facility] 3 16:36:59 Hammer toe 571571076 Active 2022 Shemar Fairchild DPM [address], [address], [place], [address], [facility] 3 16:37:19 Problem Notes None recorded. Procedures Surgical History Date Name Laterality Status Provider Name and Address Organization Details Recorded Time Hysterectomy, Partial completed Joycelyn Bean [facility] 11/20/2022 16:57:02 Appendectomy completed Joycelyn Bean [facility] 11/20/2022 16:57:06 Total hysterectomy completed Joycelyn Bean [facility] 11/20/2022 16:57:18 release of trigger finger completed Joycelyn Bean [facility] 11/20/2022 16:57:28 Tonsillectomy completed Joycelyn Bean [facility] 11/20/2022 16:57:34 Imaging Results None recorded. Procedure Notes None recorded. Medical Equipment None Reported. Allergies Allergen ID Allergen Name Allergen Category Reaction Reaction Severity Criticality Documentation Date Start Date Code Code System Note Provider Name and Address Organization Details Recorded Time 40516 Product containin g penicilli n (product) medicatio n Not available Not available Not available 11/20/2022 91090 8001 [facility]ED [facility] 16:51[facility]43 39807 meperidin e medicatio n Not available Not available Not available 11/20/2022 6754 RxNorm [facility] 16:51:54 99187 sulfadime thoxine Not available Not available Not available Not available 11/20/2022 21477 [facility] 16:52:05 10753 trimethop rim medicatio n Not available Not available Not available 11/20/2022 79305 RxNorm [facility] 16:52:18 Medications Name Sig [...] % 97 % 167.64 cm 16.9 kg/m2 51636.2 g 142/78 mm[Hg] Joycelyn Bean [facility] [employer] [facility] 3 16:19:04 Date Recorded Body height Body mass index (BMI) Body weight Heart rate Respiratory rate Oxygen saturation Oxygen saturation in Arterial blood by Pulse oximetry Systolic And Diastolic Provider Name and Address Organization Details Last Updated DateTime 3 167.64 cm 16.9 kg/m2 35981.2 g 72 /min 14 /min 97 % 97 % 134/69 mm[Hg] Joycelyn Bean [facility] [employer] [facility] 3 14:02:12 Social History Question Answer Notes LastModified by Organizat ion Details LastModified Time Tobacco Smoking Status Current Every Day Smoker Joycelyn amin [facility] 11/20/2022 16:56:20 What Is Your [...] SNOMED-CT Code Diagnosis ICD10 Code Diagnosis Note [id number] Shemar Fairchild DPM [facility] [place] [address] [facility] [address] [place] [address] 11/20/2022 16:13:05 11/25/2022 16:43:24 Metatarsalgia of right foot [id number] 76545 M77.41 sub 3rd metatarsal head, right footas above Foot callus 134704439 L8 4 sub 3rd metatarsal headMildOf floading with metatarsal pad had to functional orthoticse ducated on supportive shoe gearFollow -up in 1 month Hammer toe 814234862 M20 .41 right 2nd 3rd toes mildEducat ed on treatment optionCont inue with conservati ve therapy [id number] Shemar Fiarchild DPM [facility] [place] [address] [facility] [address] [place] [address] 12/18/2022 13:48:12 12/18/2022 14:26:06 Hammer toe 643522216 M20.41 right 2nd 3rd toes mildpatien t would like to continue with conservati ve therapyrec ommend silicone sleeves and soft high toe box shoe to prevent wounds infectionF ollow-up as needed Foot callus 246522735 L8 4 sub 3rd metatarsal headresolv ed with offloading Metatarsal ella of right foot 2001298589 58409 M77.41 sub 3rd metatarsal head, right footResolv [...] 12/15/2022 1 [place]a A [place] [id number] M[place]a A [place] 12/15/2022 2 [place] [facility] [place] [id number] [place]a A [place] 09/04/2022 1 [employer] (MEDICARE REPLACEMENT/A DVANTAGE - HMO) [id number] Melyssa A [place] [id number] Melyssa A [place] Notes Date Note [...] area. Patient has been seen by another wood heel cementer to which she has custom orthotics and [...] Fairchild DPM [address], [address], [place], [address], [facility] 11/25/2022 12:13:28 12/18/2022 text/html . Patient is [...] Fairchild DPM [address], [place], [address], [facility] 12/18/2022 14:07:57 OBGyn Episode No OBEpisode recorded.
--- OUTSIDE RECORDS SUMMARY | 2024-11-19 16:26 | XMS_ITS | Referral Summary ---
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
--- OUTSIDE RECORDS SUMMARY | 2024-11-19 16:26 | XMS_ITS | Data Portability ---
Author Organization Claudia GODDARD Address [address] [place] [address] Assessment No assessment recorded. Plan of Treatment Reminders Order Date Submit Date Provider Last Modified By Organization Details Last Modified Time Details Appointments None recorded. Lab rapid strep group A, throat 2016 017 [facility]Office Order, Internal Use Only DO Not Attach Compendium DO Not Attach Compendium, Do Not Delete/merge, [id number] 7 17:07:24 HbA1c (hemoglobi n A1c), blood 2015 016 [id number]_ [id number] [facility], [address] [facility] [address], [address], [place], [address], 6 04:31:39 glucose tolerance test, post-75G, 3 specimens 2015 016 DBA_PATCH_ [id number] [facility], [address] [facility] [address], [place], [address], 6 04:31:39 unlisted lab - vitamin D, 25-hydroxy , total - [facility] 2015 016 JENNIFER [facility], [address] [facility] [address], [address], [place], [address], 6 13:11:27 CBC w/ manual diff 2015 016 [email or web address] [facility], [address], [address], [place], [address], 6 12:15:19 CMP, serum or plasma 2015 016 [email or web address] [facility], [address] [facility] [address], [address], [place], [address], 6 12:15:19 lipid panel, serum 2015 016 [email or web address] [facility], [address] [facility], [address], [place], [address], 6 12:15:19 unlisted lab - compliance drug analysis, ur 2015 016 JENNIFER [facility], [address] [facility], [address], [place], [address], 6 15:09:40 Referral laryngolog y referral - Please call patient to schedule 2015 016 [email or web address] Not available 7 07:56:45 audiologis t referral - Please call patient to schedule [email or web address], [place], [address], 7 13:04:47 plastic surgeon referral - Rt thigh lump/ PATIENT TO SCHEDULE 2015 016 [email or web address] Not available 7 13:17:06 gastroente rologist referral - P:leae call patient to schedujle 2015 016 [email or web address] Jack Griffin MD, [address] [place], [address], 7 10:10:31 Procedures colonoscop y screening (PROC) 2015 016 DBA_PATCH_ [id number] Not available 6 04:32:07 Surgeries None recorded. Imaging MAMMO, screening, digital, bilateral 2015 016 DBA_PATCH_ [id number] [facility] ([facility]), [address] [place], [address], 6 04:31:59 MAMMO, screening, bilateral 2015 016 [facility] ([facility]), [address] [place], [address], 7 10:29:25 bone density, dual photon absorptiom etry 2015 016 [facility] ([facility]), [address] [place], [address], 6 15:34:00 Medication Orders sertraline 100 mg tablet 2016 017 [facility][id number], [address] [place], [place], [id number], 7 17:07:30 nystatin 100,000 unit/mL oral suspension 2016 017 [facility] #86318, [address] [facility], [place], [place], [id number], 7 17:07:31 calcium 600 mg (as carbonate) -vitamin D3 10 mcg (400 unit) capsule 2016 017 [facility] #06592, [address] [facility], [place], [place], [id number], 7 16:54:36 Ventolin HFA 90 mcg/actuat ion aerosol inhaler 2016 017 [facility] #07828, [address] [facility], [place], [place], [id number], 7 16:22:52 Symbicort 160 mcg-4.5 mcg/actuat ion HFA aerosol inhaler 2016 017 [facility] #55722, [address], [place], [place], [id number], 7 16:22:51 albuterol sulfate 2.5 mg/3 mL (0.083 %) solution for nebulizati on 2016 017 [facility] #42928, [address] , [place], [place], [id number], 7 16:22:52 calcium 600 mg (as carbonate) -vitamin D3 10 mcg (400 unit) capsule 2015 016 DBA_PATCH_ [id number] [facility] #48568, [address] , [place], [place], [id number], 6 04:31:45 Patient TargetsNo targets recorded. Patient Instructions Encounter Date Encounter Id Patient Instructions Last Modified By Organization Details Last Modified Time 01/21/2016 [id number] deciding about using medicines to quit smoking [facility] Not available 01/22/2016 15:28:08 Quitting Tobacco : Care Instructions [facility] Not available 01/22/2016 15:28:09 chronic obstructive pulmonary disease (COPD): care instructions [facility] Not available 01/22/2016 15:28:08 learning about copd and how to prevent lung infections [facility] Not available 01/22/2016 15:28:08 03/21/2016 [id number] mammogram: about this test [facility] Not available 03/21/2016 17:27:52 deciding about using medicines to [facility] Not available 03/21/2016 17:27:52 Quitting Tobacco : [facility] Not available 03/21/2016 17:27:52 chronic obstructive pulmonary disease (COPD): care [facility] Not available 03/21/2016 17:27:52 learning about copd and how to prevent lung infections [facility] Not available 03/21/2016 17:27:52 learning about high blood sugar [facility] Not available 03/21/2016 17:31:23 05/28/2016 [id number] osteoporosis: [facility] Not available 05/28/2016 16:22:51 deciding about using medicines to quit smoking [email or web address] Not available 05/28/2016 16:22:51 Quitting Tobacco : Care Instructions [facility] Not available 05/28/2016 16:22:51 chronic obstructive pulmonary disease (COPD): care instructions [facility] Not available 05/28/2016 16:22:51 learning about copd and how to prevent lung infections [facility] Not available 05/28/2016 16:22:51 07/01/2016 [id number] deciding about using medicines to quit smoking [facility] Not available 07/02/2016 09:50:36 Quitting Tobacco : Care Instructions [facility] Not available 07/02/2016 09:50:36 chronic obstructive pulmonary disease (COPD): care instructions [facility] Not available 07/02/2016 09:50:36 learning about copd and how to prevent lung infections [facility] Not available 07/02/2016 09:50:36 11/24/2016 [id number] deciding about using medicines to quit smoking [email or web address] Not available 11/25/2016 11:07:05 Quitting Tobacco : Care Instructions [email or web address] Not available 11/25/2016 11:07:05 chronic obstructive pulmonary disease (COPD): care instructions [email or web address] Not available 11/25/2016 11:07:05 learning about copd and how to prevent lung infections [email or web address] Not available 11/25/2016 11:07:05 Reason for Referral [...] Physician: [facility], Encounter Date: 03/21/2016 [employer] 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 [place]E [address]57 NG/MG CREAT POTEN TIAL SOURC ES OF [...] === Not Available [facility] [address], [place], [address], 01/26/2016 15:09:40 01/21/20 16 01/26/2016 drug scree n, urine pdf . Not Available [facility] [address], [place], [address], 01/26/2016 15:09:40 02/04/20 16 02/05/2016 CBC w/ manua l diff WBC 5.7 x10e3 /uL 3.4-10 .8 Not Available [facility] ([facility]) [address] [facility], [place], [address], 02/07/2016 13:11:25 02/04/20 16 02/05/2016 CBC w/ manua l diff RBC 4.19 x10e6 /uL 3.77-5 .28 Not Available [facility] ([facility]) [address] [place], [address], 02/07/2016 13:11:25 02/04/20 16 02/05/2016 CBC w/ manua l diff hemoglobin 12.7 g/dL 11.1-1 5.9 Not Available [facility] ([facility]) [address] [place], [address], 02/07/2016 13:11:25 02/04/20 16 02/05/2016 CBC w/ manua l diff hematocrit 38.8 % 34.0-4 6.6 Not Available [facility] ([facility]) [address] [place], [address], 02/07/2016 13:11:25 02/04/20 16 02/05/2016 CBC w/ manua l diff MCV 93 fL 79-97 Not Available [facility] ([facility]) [address] [place], [address], 02/07/2016 13:11:25 02/04/20 16 02/05/2016 CBC w/ manua l diff MCH 30.3 pg 26.6-3 3.0 Not Available [facility] ([facility]) [address] [facility], [place], [address], 02/07/2016 13:11:25 02/04/20 16 02/05/2016 CBC w/ manua l diff MCHC 32.7 g/dL 31.5-3 5.7 Not Available [facility] ([facility]) [address] [facility], [place], [address], 02/07/2016 13:11:25 02/04/20 16 02/05/2016 CBC w/ manua l diff RDW 14.2 % 12.3-1 5.4 Not Available [facility] ([facility]) [address] [facility], [place], [address], 02/07/2016 13:11:25 02/04/20 16 02/05/2016 CBC w/ manua l diff platelets 148 x10e3 /uL 150-37 9 below low normal Not Available [facility] ([facility]) [address] [place], [address], 02/07/2016 13:11:25 02/04/20 16 02/05/2016 CBC w/ manua l diff neutrophils 75 % Not Available [facility] ([facility]) [address] [facility], [place], [address], 02/07/2016 13:11:25 02/04/20 16 02/05/2016 CBC w/ manua l diff lymphs 16 % Not Available [facility] ([facility]) [address] [place], [address], 02/07/2016 13:11:25 02/04/20 16 02/05/2016 CBC w/ manua l diff monocytes 8 % Not Available [facility] ([facility]) [address] [place], [address], 02/07/2016 13:11:25 02/04/20 16 02/05/2016 CBC w/ manua l diff eos 1 % Not Available [facility] ([facility]) [address] [place], [address], 02/07/2016 13:11:25 02/04/20 16 02/05/2016 CBC w/ manua l diff basos 0 % Not Available [facility] ([facility]) [address] [place], [address], 02/07/2016 13:11:25 02/04/20 16 02/05/2016 CBC w/ manua l diff immature cells [employer] Not Available [facility] ([facility]) [address] [place], [address], 02/07/2016 13:11:25 02/04/20 16 02/05/2016 CBC w/ manua l diff neutrophils absolute 4.3 x10e3 /uL 1.4-7. 0 Not Available [facility] ([facility]) [address] [place], [address], 02/07/2016 13:11:25 02/04/20 16 02/05/2016 CBC w/ manua l diff lymphs (absolute) 0.9 x10e3 /uL 0.7-3. 1 Not Available [facility] ([facility]) [address] [place], [address], 02/07/2016 13:11:25 02/04/20 16 02/05/2016 CBC w/ manua l diff monocytes(ab solute) 0.5 x10e3 /uL 0.1-0. 9 Not Available [facility] ([facility]) [address] [place] [address], [address], 02/07/2016 13:11:25 02/04/20 16 02/05/2016 CBC w/ manua l diff eos (absolute value) 0.1 x10e3 /uL 0.0-0. 4 Not Available [facility] ([facility]) [address] [facility], [place], [address], 02/07/2016 13:11:25 02/04/20 16 02/05/2016 CBC w/ manua l diff baso(absolut e) 0.0 x10e3 /uL 0.0-0. 2 Not Available [facility] ([facility]) [address] [facility], [place], [address], 02/07/2016 13:11:25 02/04/20 16 02/05/2016 CBC w/ manua l diff NRBC [employer] Not Available [facility] ([facility]) [address] [facility], [place], [address], 02/07/2016 13:11:25 02/04/20 16 02/05/2016 CBC w/ manua l diff differential comment [employer] Not Available [facility] ([facility]) [address] [facility], [place], [address], 02/07/2016 13:11:25 02/04/20 16 02/05/2016 CBC w/ manua l diff RBC comment RBC'S APPEAR NORMAL . normal Not Available [facility] ([facility]) [address] [facility], [place], [address], 02/07/2016 13:11:25 02/04/20 16 02/05/2016 CBC w/ manua l diff platelet comment ADEQUA TE adequa te Not Available [facility] ([facility]) [address] [facility], [place], [address], 02/07/2016 13:11:25 02/04/20 16 02/05/2016 CMP, serum or plasm a glucose, serum 115 mg/dL 65-99 above high normal Not Available [facility] ([facility]) [address] [place], [address], 02/07/2016 13:11:26 02/04/20 16 02/05/2016 CMP, serum or plasm a hemoglobin A1C 5.9 % 4.8-5. 6 above high normal PRE-D IABET ES: 5.7 - 6.4 DIABE ROSE: >6.4 GLYCE ARON CONTR OL FOR ADULT S WITH DIABE ROSE: <7.0 Not Available [facility] ([facility]) [address] [place], [address], 02/07/2016 13:11:26 02/04/20 16 02/05/2016 CMP, serum or plasm a BUN 8 mg/dL 8-27 Not Available [facility] ([facility]) [address] [place], [address], 02/07/2016 13:11:26 02/04/20 16 02/05/2016 CMP, serum or plasm a creatinine, serum 0.85 mg/dL 0.57-1 .00 Not Available [facility] ([facility]) [address] [place], [address], 02/07/2016 13:11:26 02/04/20 16 02/05/2016 CMP, serum or plasm a eGFR if nonafricn AM 74 mL/mi n/1.7 3 >59 Not Available [facility] ([facility]) [address] [place], [address], 02/07/2016 13:11:26 02/04/20 16 02/05/2016 CMP, serum or plasm a eGFR if africn AM 85 mL/mi n/1.7 3 >59 Not Available [facility] ([facility]) [address] [place], [address], 02/07/2016 13:11:26 02/04/20 16 02/05/2016 CMP, serum or plasm a BUN/creatini ne ratio 9 11-26 below low normal Not Available [facility] ([facility]) [address] [place] [address], [address], 02/07/2016 13:11:26 02/04/20 16 02/05/2016 CMP, serum or plasm a sodium, serum 142 mmol/ L 134-14 4 EFF ECTIV E OCTOB ER 2015 THE REFER ENCE INTER NIRMALA FOR SARAH Rodriguez, SERUM WILL BE LYON ING TO: 136 - 144 Not Available [facility] ([facility]) [address] [place], [address], 02/07/2016 13:11:26 02/04/20 16 02/05/2016 CMP, serum [...] YEAR 3.5 - 5.2 Not Available [facility] ([facility]) [address] [place], [address], 02/07/2016 13:11:26 02/04/20 16 02/05/2016 CMP, serum or plasm a chloride, serum 103 mmol/ L 97-108 EFF ECTIV E OCTOB ER 2015 THE REFER ENCE INTER NIRMALA FOR CHLOR SAHIL, SERUM WILL BE LYON ING TO: 97 - 106 Not Available [facility] ([facility]) [address] [place], [address], 02/07/2016 13:11:26 02/04/20 16 02/05/2016 CMP, serum or plasm a carbon dioxide, total 24 mmol/ L 18-29 Not Available [facility] ([facility]) [address] [place], [address], 02/07/2016 13:11:26 02/04/20 16 02/05/2016 CMP, serum or plasm a calcium, serum 8.3 mg/dL 8.7-10 .3 below low normal Not Available [facility] ([facility]) [address] [place], [address], 02/07/2016 13:11:26 02/04/20 16 02/05/2016 CMP, serum or plasm a protein, total, serum 6.2 g/dL 6.0-8. 5 Not Available [facility] ([facility]) [address] [place], [address], 02/07/2016 13:11:26 02/04/20 16 02/05/2016 CMP, serum or plasm a albumin, serum 3.8 g/dL 3.6-4. 8 Not Available [facility] ([facility]) [address] [facility], [place], [address], 02/07/2016 13:11:26 02/04/20 16 02/05/2016 CMP, serum or plasm a globulin, total 2.4 g/dL 1.5-4. 5 Not Available [facility] ([facility]) [address] [place], [address], 02/07/2016 13:11:26 02/04/20 16 02/05/2016 CMP, serum or plasm a A/G ratio 1.6 1.1-2. 5 Not Available [facility] ([facility]) [address] [facility], [place], [address], 02/07/2016 13:11:26 02/04/20 16 02/05/2016 CMP, serum or plasm a bilirubin, total <0.2 mg/dL 0.0-1. 2 Not Available [facility] ([facility]) [address] [place], [address], 02/07/2016 13:11:26 02/04/20 16 02/05/2016 CMP, serum or plasm a alkaline phosphatase, S 97 IU/L 39-117 Not Available [facility] ([facility]) [address] [place] [address], [place], [address], 02/07/2016 13:11:26 02/04/20 16 02/05/2016 CMP, serum or plasm a AST (SGOT) 15 IU/L 0-40 Not Available [facility] ([facility]) [address] [place], [address], 02/07/2016 13:11:26 02/04/20 16 02/05/2016 CMP, serum or plasm a ALT (SGPT) 15 IU/L 0-32 Not Available [facility] ([facility]) [address] [place], [address], 02/07/2016 13:11:26 02/04/20 16 02/05/2016 lipid panel , serum cholesterol, total 201 mg/dL 100-19 9 above high normal Not Available [facility] ([facility]) [address] [place], [address], 02/07/2016 13:11:26 02/04/20 16 02/05/2016 lipid panel , serum triglyceride s 91 mg/dL 0-149 Not Available [facility] ([facility]) [address] [place], [address], 02/07/2016 13:11:26 02/04/20 16 02/05/2016 lipid panel , serum HDL cholesterol 72 mg/dL >39 ACCOR DING TO ATP-I II GUIDE LINES , HDL-C >59 MG/DL IS CONSI DERED A NEGAT CAMPOS RISK FACTO R FOR CHD. Not Available [facility] ([facility]) [address] [place], [address], 02/07/2016 13:11:26 02/04/20 16 02/05/2016 lipid panel , serum VLDL cholesterol taylor 18 mg/dL 5-40 Not Available [facility] ([facility]) [address] [place], [address], 02/07/2016 13:11:26 02/04/20 16 02/05/2016 lipid panel , serum LDL cholesterol calc 111 mg/dL 0-99 above high normal Not Available [facility] ([facility]) [address] [place], [address], 02/07/2016 13:11:26 02/04/20 16 02/05/2016 lipid panel , serum comment: [employer] Not Available [facility] ([facility]) [address] [facility], [place], [address], 02/07/2016 13:11:26 02/04/20 16 02/05/2016 lipid panel , serum LDL/HDL ratio 1.5 ratio _unit s 0.0-3. 2 LDL/H DL RATIO MEN WOMEN 1/2 AVG.R ISK 1.0 1.5 AVG.R ISK 3.6 3.2 2X AVG.R ISK 6.2 5.0 3X AVG.R ISK 8.0 6.1 Not Available [facility] ([facility]) [address] [facility], [place], [address], 02/07/2016 13:11:26 02/04/20 16 02/07/2016 vitam in D, 25-hy droxy , total , serum vitamin D, 25-hydroxy, serum 37 NG/mL REFER ENCE RANGE : ALL AGES: TARGE T LEVEL S 30 - 100 Not Available [facility] [address] [place] [address], [address], 02/07/2016 13:11:27 04/02/20 16 04/03/2016 gluco se slava ance test, post- 75G, 3 speci mens glucose, fasting 92 mg/dL 65-99 Not Available [facility] ([facility]) [address] [place], [address], 04/03/2016 06:12:40 04/02/20 16 04/03/2016 gluco se slava ance test, post- 75G, 3 speci mens glucose, 1/2 hour TNP TEST NOT PERFO RMED Not Available [facility] ([facility]) [address] [place], [address], 04/03/2016 06:12:40 04/02/20 16 04/03/2016 gluco se slava ance test, post- 75G, 3 speci mens glucose, 1 hour 189 mg/dL 65-199 Not Available [facility] ([facility]) [address] [place], [address], 04/03/2016 06:12:40 04/02/20 16 04/03/2016 gluco se slava ance test, post- 75G, 3 speci mens glucose, 1 1/2 hour TNP TEST NOT PERFO RMED Not Available [facility] ([facility]) [address] [place], [address], 04/03/2016 06:12:40 04/02/20 16 04/03/2016 gluco se slava ance test, post- 75G, 3 speci mens glucose, 2 hour 97 mg/dL 65-139 Not Available [facility] ([facility]) [address] [place], [address], 04/03/2016 06:12:40 04/02/20 16 04/03/2016 gluco se slava ance test, post- 75G, 3 speci mens glucose, 3 hour TNP TEST NOT PERFO RMED Not Available [facility] ([facility]) [address] [place] [address], [address], 04/03/2016 06:12:40 04/02/20 16 04/03/2016 gluco se slava ance test, post- 75G, 3 speci mens glucose, 4 hour TNP TEST NOT PERFO RMED Not Available [facility] ([facility]) [address] [place], [address], 04/03/2016 06:12:40 04/02/20 16 04/03/2016 gluco se slava ance test, post- 75G, 3 speci mens glucose, 5 hour TNP TEST NOT PERFO RMED Not Available [facility] ([facility]) [address] [place], [address], 04/03/2016 06:12:40 04/02/20 16 04/03/2016 gluco se slava ance test, post- 75G, 3 speci mens glucose, 6 hour TNP TEST NOT PERFO RMED Not Available [facility] ([facility]) [address] [facility], [place], [address], 04/03/2016 06:12:40 04/02/20 16 04/03/2016 HbA1c (hemo globi n A1c), blood hemoglobin A1C 6.0 % 4.8-5. 6 above high normal PRE-D IABET ES: 5.7 - 6.4 DIABE ROSE: >6.4 GLYCE ARON CONTR OL FOR ADULT S WITH DIABE ROSE: <7.0 Not Available [facility] ([facility]) [address] [facility], [place], [address], 04/03/2016 06:12:41 01/29/20 16 01/28/2016 bone densi ty, dual photo n absor ptiom etry No observ ation record ed. [email or web address] [facility] [address] [place], [address], 08/20/2016 09:43:33 02/21/20 16 02/21/2016 US, kidne y No observ ation record ed. [email or web address] Not Available 2015 15:40:26 05/21/19 17 05/21/2016 MRI, brain + brain stem, w/wo contr ast No observ ation record ed. strice [facility] [address] [place], [address], 07/03/2016 11:40:04 05/21/19 17 05/21/2016 MRI, cervi taylor spine , w/o contr ast No observ ation record ed. [email or web address] [facility] (Imaging) [address] [place], [address], 05/29/2016 07:28:18 06/03/19 17 06/03/2016 MAMMO , scree uziel, bilat eral No observ ation record ed. [email or web address] Not Available 07/02 15:29:02 06/27/19 17 06/27/2016 XR, chest , 2 view No observ ation record ed. [facility] [address] [place], [address], 07/16/2016 13:29:36 07/04/19 17 6 minut e walk test* No observ ation record ed. [facility] [address] [place], [address], 07/04/2016 12:37:03 Result Notes None recorded. Problems Name Problem SNOMED Code Status Onset Date Resolution Date Notes Provider Name and Address Organization Details Recorded Time Chronic obstructive pulmonary disease 92354746 Active Milena Dos Santos MD Attn: Wilmer bullock,[address] [facility], [place], [address], [facility] 6 15:15:05 Tobacco dependence syndrome 14560111 Active Milena Dos Santos MD Attn: Wilmer bullock,[address] [facility], [place], [address], [facility] 6 15:15:05 Chronic low back pain [id number] Diandra Dos Santos MD Attn: Wilmer bullock,[address] [facility], [place], [address], [facility] 6 15:15:05 Esophageal dysphagia [id number] Diandra Dos Santos MD Attn: Wilmer bullock,[address] [facility], [place], [address], [facility] 6 15:15:05 Dystonia [id number] Diandra Dos Santos MD Attn: Wilmer bullock,[address] [facility], [place], [address], [facility] 6 15:15:05 Osteoporosis [id number] Diandra Gonzalez RN null, [facility] 6 15:14:16 Problem Notes None recorded. Procedures Surgical History Date Name Laterality Status Provider Name and Address Organization Details Recorded Time 05/04/19 15 Mammogram screening completed Judd Valentine MA [facility] 01/21/2016 14:25:00 05/04/19 14 Diagnostic colonoscopy completed Judd Valentine ROSS [facility] 01/21/2016 14:25:00 05/04/19 09 Screening pap smear by phys completed Judd Valentine MA [facility] 01/21/2016 14:25:00 Dilation and Curettage completed Judd Valentine MA [facility] 01/21/2016 14:25:00 Tonsillectomy completed Judd Valentine MA [facility] 01/21/2016 14:25:00 Hysterectomy completed Judd Valentine MA [facility] 01/21/2016 14:25:00 Appendectomy completed Judd Valentine ROSS [facility] 01/21/2016 14:25:00 Imaging Results None recorded. Procedure Notes None recorded. Medical Equipment None Reported. Allergies Allergen ID Allergen Name Allergen Category Reaction Reaction Severity Criticality Documentation Date Start Date Code Code System Note Provider Name and Address Organization Details Recorded Time 96195 Product containin g penicilli n (product) medicatio n Not available Not available Not available 01/21/2016 [id number] [facility]ED [facility] 14:24:59 [id number] Demerol medicatio n itching Not available Not available 01/21/2016 [id number] 1 [facility] 14:24:59 Medications Name Sig Start Date [...] propionate 50 mcg/actuatio n nasal spray,suspen haleigh Bonduel 1 spray every day by intranasal route. [...] Details Last Updated DateTime 7 169.545 cm 11454.4 8 g 19.8 kg/m2 97.9 [degF] 96 % 96 % 85 /min 126/66 mm[Hg] Judd Valentine MA [facility] 7 16:04:46 Date Recorded Body height Body weight Body mass index (BMI) Body temperature Oxygen saturation Oxygen saturation in Arterial blood by Pulse oximetry Heart rate Systolic And Diastolic Provider Name and Address Organization Details Last Updated DateTime 7 169.545 cm 09651.7 g 19.3 kg/m2 98.1 [degF] 92 % 92 % 80 /min 124/68 mm[Hg] Judd Valentine MA [facility] 7 17:15:45 Date Recorded Body height Body mass index (BMI) Body weight Body temperature Oxygen saturation Oxygen saturation in Arterial blood by Pulse oximetry Heart rate Systolic And Diastolic Provider Name and Address Organization Details Last Updated DateTime 7 169.545 cm 20.5 kg/m2 87718.2 9 g 97.7 [degF] 95 % 95 % 90 /min 130/70 mm[Hg] Judd Valentine MA [facility] 7 15:30:39 Date Recorded Body height Heart rate Body weight Oxygen saturation Oxygen saturation in Arterial blood by Pulse oximetry Body mass index (BMI) Body temperature Systolic And Diastolic Provider Name and Address Organization Details Last Updated DateTime 6 169.545 cm 71 /min 81108.3 32028 g 96 % 96 % 18.9 kg/m2 98.3 [degF] 144/70 mm[Hg] Judd Valentine MA [facility] 6 14:25:00 Date Recorded Body height Body weight Body mass index (BMI) Body temperature Oxygen saturation Oxygen saturation in Arterial blood by Pulse oximetry Heart rate Systolic And Diastolic Provider Name and Address Organization Details Last Updated DateTime 6 169.545 cm 39971.7 1 g 19.3 kg/m2 98.3 [degF] 95 % 95 % 88 /min 104/60 mm[Hg] Judd Valentine MA [facility] 6 16:32:19 Social History None recorded. Functional [...] an Cancer (sister) Medical History Condition Response COPD Y Muscle, Joint, or Bone Problems Y Acid Reflux (GERD) Y High Cholesterol Y Kidney or Bladder Problems Y Allergies Y Osteoporosis Y Gynecological HistoryNo gynecological history recorded. Obstetrics History GPAL:G 0 P 0 0 0 0 Immunizations Vaccine Type Date Status Note Provider Nam e and Address Organization Details Recorded Time COVID-19 vaccine, vector-nr, rS-Ad26, PF, 0.5 mL 07/09/2020 completed Nato Maria null, [facility] 11/07/2020 16:13:26 pneumococcal, unspecified formulation 05/04/2005 completed Judd Valentine MA null, [place] - [facility] 01/21/2016 14:25:00 Past Encounters Encounter ID Performer Location Encounter Start Date Encounter Closed Date Diagnosis/Indication Diagnosis SNOMED-CT Code Diagnosis ICD10 Code Diagnosis Note [id number] MD Asif Colindres (Adult Med) [address] [place] [address] [phone] 0 01/21/2016 13:44:23 01/21/2016 18:02:47 Chronic obstructive pulmonary disease 72011997 J44.9 Tobacco de pendence syndrome 33287767 F17.290 Chronic low back pain 27 5902028 M54.5 Esophageal dysphagia 408 77139 R13.19 Adult heal th examination 835460628 Z00.00 Screening for osteoporosis 520998484 Z13.820 Dystonia 01039509 G24.9 [id number] MD Asif Colindres (Adult Med) [address] [place] [address] [phone] 03/21/2016 15:52:50 03/21/2016 17:46:52 Chronic obstructive pulmonary disease 28384372 J44.9 Tobacco de pendence syndrome 53055780 F17.290 Osteopenia 630716473 M85 .9 Mass of skin 865140164 R 22.9 Screening for malignant neoplasm of colon 930082469 Z12.11 Hearing disorder 5674822 05 H91.93 Screening mammography 24 614781 Z12.31 Hyperglycemia 36777380 R 73.9 [id number] MD Asif Colindres (Adult Med) [address] [place] [address] [phone] 05/28/2016 15:44:26 05/28/2016 16:35:56 Chronic obstructive pulmonary disease 44673992 J44.9 Tobacco de pendence syndrome 65802694 F17.290 Dystonia 54596014 G24.9 She has been seen by a neurologis t on the rgular basis. Chronic low back pain 27 3839630 M54.5 Esophageal dysphagia 408 33251 R13.19 She had upper EGD scopic ex. by a GI specialist and was dilated and recently had unremarkab le colonoscop y ex by GI specialist as well. Osteoporosis 58553009 M8 1.0 Osteopenia 470705493 M85 .9 [id number] MD Asif Colindres (Adult Med) [address] [place] [address] [phone] 07/01/2016 15:40:48 07/01/2016 18:04:54 Chronic obstructive pulmonary disease 94958981 J44.9 Will have nurse arrange the 6 minutes walking test to see if she is qualified for the home oxygen, Jennifer won't give such choice on the computer. Tobacco de pendence syndrome 48270370 F17.290 She is on the nicotine patch for quitting cigarettes . [id number] MD Asif Colindres (Adult Med) [address] [place] [address] [phone] 11/24/2016 14:30:40 11/24/2016 17:09:34 Pharyngitis 580411676 J02.9 Thrash. Chronic ob structive pulmonary disease 55640973 J44.9 Will have nurse arrange the 6 minutes walking test to see if she is qualified for the home oxygen, Jennifer won't give such choice on the computer. Tobacco de pendence syndrome 76157553 F17.290 She is on the nicotine patch for quitting cigarettes . Pain of mu ltiple joints 64724298 M25.50 Had been on sertraline . Chronic low back pain 27 7868077 M54.5 Same as sertraline . Lumbar radiculopathy 128 075374 M54.16 Health Concerns Section Related Observation LastModified by Organization Detai ls LastModified Time None Recorded Concern Status LastModified by Organization Details LastModified Time None Recorded Advance Directives Directive None Recorded Payers Insurance Date Sequence Insurance Name Policy Number Policy Granados Covered Member ID Granados Member ID Guarantor Name 07/02/2016 2 [place] WHEN MEDICARE OR MEDICARE REPLACEMENT PRIMARY) Melyssa [place] [id number] M[place]ssa [place] 07/02/2016 2 [place] [facility] Melyssa [place] [id number] M[place]ssa [place] 11/21/2016 [place] [facility] Melyssa [place] [id number] Melyssa [place] 11/25/2016 1 [place] Melyssa A [place] [id number] Melyssa [place] Notes Date Note Type [...] Milena Dos Santos MD Attn: Accounting[address] [place], [address], [facility] 01/21/2016 15:15:32 03/21/2016 text/html She has gone to GI specialist for dilatation of esophageal stricture, her food regurgitaion has resolved and no more aspiration /or pneumonia and has gained weight after the improving appetite and oral intake but still smokes cigarettes. Milena Dos Santos MD Attn: [address]ing[address] , [place], [address], [facility] 03/21/2016 17:39:07 11/24/2016 text/html She is happy abo ut that her ears can hear well again. and she had benign lump removed on her right thigh, had seen GI doctor for her esophageal dysphagia, still smokes cigarettes , using inhalers, chronic throat sore . Allergic to penicillins and demerol. Milena Dos Santos MD Attn: Accounting[address] , [place], [address], [facility] 11/24/2016 17:07:30 OBGyn Episode No OBEpisode recorded.
--- OUTSIDE RECORDS SUMMARY | 2024-11-19 16:26 | XMS_ITS | Clinical Summary ---
Author Organization [facility] Dominic bright [facility] Address [address] [place] [address] Care Team Providers Care Director Oracle Database Name Role Phone Unavailable Primary Care Provider [...] Encounters Date Type Department Care Team Description 11/18/2024 Telephone [facility] Surgical Oncology [place] [address] [place] [address] Mary Rand MD Patient Communication 11/18/2024 Orders Only [facility] Gynecologic Oncology [place] [address] [place] [address] Mary Rand MD Hepatocellular carcinoma (CMS/HCC) (Primary Dx) 11/16/2024 External Device Data ST[facility] ABSTRACTION Provider, Abstract 11/16/2024 External Device Data [facility] ABSTRACTION Provider, Abstract 11/16/2024 External Device Data [facility] ABSTRACTION Provider, Abstract 11/15/2024 External Device Data ST[facility] ABSTRACTION Provider, Abstract 11/15/2024 Orders Only [facility] Oncology [facility] [address] [place] [address] Sebastian Gipson MD Hepatocellular carcinoma (CMS/HCC) (Primary Dx) 11/15/2024 Orders Only [facility] Oncology [facility] [address] [place] [address] Sebastian Gipson MD 11/14/2024 4:00 PM CDT Office Visit [facility] Oncology [facility] [address] [place] [address] Sebastian Gipson MD Hepatocellular carcinoma (CMS/HCC) (Primary [...] 11/14/2024 3:37 PM CDT Plan of Treatment Upcoming Encounters Date Type Department Care Team (Late st Contact Info) Description 12/01/2024 2:00 PM CDT Office Visit [facility] Oncology and Hematology - [address] [facility] [address] [place] [address] Sebastian Gipson MD [address] [place] [address] 12/05/2024 10:00 AM CDT Office Visit [facility] Surgical Oncology [place] [address] [place] [address] Mary Rand MD [address] [place] [address] Health Maintenance Due Date Last Done Comments [...] SCREENING 2018 INFLUENZA VACCINE (#1) 2024 01/13/2018 Medical Devices Implanted Type Area Actuarial Technician Device Identifier Shelf Expiration Date Model / Serial / Lot Neuro Stimulator Neuro Stimulator [facility] 3660 / / Description:Leads - 3228 MRI conditional for 1.5T Integrated whole-body transmit coil: JAM = 0.1 W/kg - per JAM limitations would not be able to scan anything using integrated body coil and receive only coil which we will not meet for Spine/Abd, hips, pelvis, and shoulder - OLD LEADS Detachable head transmit-receive coil: Normal operating mode Detachable extremity transmit-receive coil: Normal operating mode 30 minutes total of active scan time person session, 30-minute wait between sessions. PT must bring in remote [place] [place] Procedures Procedure Name Priority Date/Time Associated Diagnosis Comments [facility] N[facility] Routine 11/15/2024 3:18 PM CDT Hepatocellular carcinoma (CMS/HCC) from Last 3 Months Results * [facility] NORMAL BLOOD (11/15/2024 3:18 PM CDT) Pathologist [facility] 11/15/2024 11:00 PM CDT [facility] Comment:See NGS Report for R esults. Blood specimen (specimen) 11/15/2024 3:18 PM CDT 11/15/2024 3:19 PM CDT us Sebastian Gipson MD MOLECULAR ORDERABLES Final Resu lt [facility] [address] [place] [address], [facility] [address], [address] [place] [address] from Last 3 Months Insurance [place]
[2024-11-19] MEDS: IPRATROPIUM 0.5 MG/ALBUTEROL SULFATE 2.5 MG AMPUL.NEB 3 ML 12 ML INHALATION (18:24)
[2024-11-19 18:31] LABS: Alveolar/Arterial O2 Gradient 77.1 mmHg; Fractional Inspired Oxygen 28 %; HCO3 ABG 29.1 mEq/l (22.0-26.0); Oxygen Content ABG 18.4 %vol (16.0-22.0); Oxygen Saturation ABG 95.4 % (95.0-100.0); PCO2 ABG 41.9 mmHg (35.0-45.0); PO2 ABG 73.1 mmHg (80.0-100.0); PO2 FiO2 Ratio Arterial Blood 2.61 %
[2024-11-19 18:34] LABS: Modified Allen's Test Pass; Site Drawn LEFT RADIAL
[2024-11-19 18:35] LABS: Liters per Minute 2.0 LPM
--- NOTE | 2024-11-19 18:40 | ED.GENADULT ---
HPI - General Adult General Chief complaint: Shortness of Breath/Dyspnea <Babatunde Joyner MD - Last Filed: 11/19/24 18:54> Stated complaint: sob, back pain <Babatunde Joyner MD - Last Filed: 11/19/24 18:54> Time Seen by Provider: 11/19/24 17:56 <Babatunde Joyner MD - Last Filed: 11/19/24 18:54> History of Present Illness HPI narrative: This is a 69-year-old female with a history of recurrent pneumonia,, COPD on home oxygen, liver malignancy, possible lung malignancy presenting for worsening difficulty breathing. Patient says her breathing is at baseline has gotten significantly worse today. She has a productive cough. She has had been experiencing subjective fever and chills at home. She denies chest pain, abdominal pain, nausea vomiting or diarrhea. No lower extremity edema. <Babatunde Joyner MD - Last Filed: 11/19/24 18:54> Related Data Home medications: Home Medications ?Medication ?Instructions ?Recorded ?Confirmed ?Last Taken ?Type aspirin 81 mg tablet,delayed 81 mg PO DAILY 06/02/19 11/10/24 10/31/24 History release (Adult Aspirin Regimen) cyclobenzaprine 5 mg tablet 5 mg PO Q12H 01/05/20 11/10/24 10/31/24 History oxycodone myristate 13.5 mg 13.5 mg PO Q12H 11/19/21 11/10/24 10/31/24 History capsule sprinkle extend release 12hr(DON'T CRUSH) (Xtampza ER) solifenacin 10 mg tablet (Vesicare) 5 mg PO HS 02/04/23 11/10/24 10/30/24 History cholecalciferol (vitamin D3) 125 125 mcg PO DAILY 07/24/23 11/10/24 10/31/24 History mcg (5,000 unit) tablet (Vitamin D3) guaifenesin 600 mg tablet, 1,200 mg PO Q12H 07/24/23 11/10/24 10/31/24 History extended release 12 hr (Mucinex) loratadine 10 mg tablet 10 mg PO DAILY 07/24/23 11/10/24 10/31/24 History albuterol sulfate 90 mcg/actuation See Rx Instructions .Route 11/12/24 07/10/25 06/30/25 History aerosol inhaler .COMPLEX PRN Shortness Of Breath Or Wheezing lovastatin 40 mg tablet 40 mg PO HS 08/02/24 11/10/24 10/30/24 History <Babatunde Joyner MD - Last Filed: 11/19/24 18:54> Allergies/adverse reactions: Allergies Allergy/AdvReac Type Severity Reaction Status Date / Time Penicillins Allergy Severe Anaphylaxis Verified 11/19/24 17:33 meperidine Allergy Intermediate Itching Verified 11/19/24 17:33 sulfamethoxazole (From Allergy Intermediate Mouth Verified 11/19/24 17:33 Bactrim) burning/redness trimethoprim (From Bactrim) Allergy Intermediate Mouth Verified 11/19/24 17:33 burning/redness mirtazapine AdvReac Mild Headache Verified 11/19/24 17:33 <Babatunde Joyner MD - Last Filed: 11/19/24 18:54> FOR[facility]LY [facility] Past Medical History Medical History: Medical History Raynaud disease OSWALD (iron deficiency anemia) Osteopenia Liana esophagitis RLS (restless legs syndrome) Esophageal dilatation Chronic narcotic use On home O2 Chronic sinusitis Dysphagia Olecranon bursitis, left elbow PSVT (paroxysmal supraventricular tachycardia) Change in bowel habits Kidney stones Fibromyalgia Rheumatoid arthritis Arthritis Constipation IBS (irritable bowel syndrome) GERD (gastroesophageal reflux disease) Stomach ulcer Wears glasses Ventricular ectopics Lumbar radiculopathy Family history of colon cancer Adenomatous colon polyp Esophageal stricture Urge incontinence ILD (interstitial lung disease) Small amount of interstitial lung disease was seen on base of lungs on chest CT 03/25/2018 which was an abdomen and pelvis CT Essential hypertension Oxygen dependent 2L w/activity, 1 w/rest Collagen vascular disease Hyperlipidemia, unspecified Infectious colitis Mass in neck Thrush Anxiety 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, patient unsure of this diagnosis COPD (chronic obstructive pulmonary disease) Tobacco abuse <Babatunde Joyner MD - Last Filed: 11/19/24 18:54> Surgical History Surgical History: Surgical History History of partial hysterectomy Status post insertion of spinal cord stimulator History of bladder suspension procedure History of appendectomy History of lumbar surgery Spinal cord stimulator implanted 05/23/21 <Babatunde Joyner MD - Last Filed: 11/19/24 18:54> Family History Family History: Family History Mother Patient's mother is , Onset Age: 72 Sibling Carcinoma of colon Ovarian cancer Lung cancer Rectal cancer Family history of malignant neoplasm of breast in first degree relative Father Brain aneurysm Cerebrovascular accident, Onset Age: 54 Other Arthritis COPD (chronic obstructive pulmonary disease) High cholesterol Hypertension Lung disease Neuropathy <Babatunde Joyner MD - Last Filed: 11/19/24 18:54> Social History Social History: Social History Social History: caffeine-coffee/soda Smoking packs per day: 1 Smoking cigarettes per day: 20.0 Years smoked: 60 Smoking pack-years: 60.00 Smoking status: Current every day smoker Second hand tobacco smoke exposure: Yes Additional smoking assessment comments: Using Nicotine patches AT TIMES Alcohol intake: never Substance use: unknown Substance use type: does not use Do You Feel Safe in your Home?: Yes Lack of Transportation: No Lack of Food: Never True Current Housing: I Have Housing Concerned About Future Housing: No Difficulty Paying Gas/Electric Bills: No Difficulty Paying for Meds: No Currently Unemployed: No Education: High School Diploma/GED Difficulty w/ Childcare or Family Care: No Living arrangements: alone Occupation/Education: retired Gender identity (if verbalized by the patient): Female Spiritual care concerns: No <Babatunde Joyner MD - Last Filed: 11/19/24 18:54> Exam Narrative: APPEARANCE: Patient appears chronically unwell, emaciated/cachectic Head: atraumatic. EYES: EOMI, NOSE: Atraumatic NECK: Trachea midline RESPIRATORY: Tachypneic, on 2 L home oxygen, scattered wheezing CARDIOVASCULAR: Tachycardic, no peripheral edema ABDOMINAL: Soft nontender MUSCULOSKELETAl: No obvious deformities NEURO: Alert. Moving 4/4 extremities SKIN:: Warm, dry. Normal color PSYCHIATRIC: Normal affect <Babatunde Joyner MD - Last Filed: 11/19/24 18:54> Course Course Emergency Course: Patient care signed over by previous physician pending CT angiography and admission for acute on chronic hypoxemic respiratory failure and worsening pneumonia. Patient CT scan shows significantly worsening upper lobe consolidation consistent with worsening pneumonia. Underlying neoplastic process not excluded but likely. Emphysematous COPD lungs, no PE or dissection. Patient is broad and on her antibiotic spectrum after discussion with the hospitalist to include vancomycin and cefepime at this time. EKG was obtained that shows normal sinus rhythm. Patient is hemodynamically stable but is mildly tachypneic. Will be admitted to the IMU for continued care. <Ryan Fish MD - Last Filed: 11/19/24 22:01> Vital Signs Vital signs: Vital Signs Temperature 36.8 C 11/19/24 17:26 Pulse Rate 115 H 11/19/24 17:26 Respiratory Rate 24 H 11/19/24 17:26 Blood Pressure 112/98 H 11/19/24 17:26 Pulse Oximetry 96 11/19/24 17:26 Oxygen Delivery Nasal Cannula 11/19/24 17:26 Oxygen Flow Rate 2 11/19/24 17:26 Temperature 36.8 C 11/19/24 17:26 Pulse Rate 129 H 11/19/24 19:30 Respiratory Rate 32 H 11/19/24 19:30 Blood Pressure 112/98 H 11/19/24 17:26 Pulse Oximetry 96 11/19/24 18:30 Oxygen Delivery Nasal Cannula 11/19/24 18:30 Oxygen Flow Rate 2 11/19/24 18:30 <Babatunde Joyner MD - Last Filed: 11/19/24 18:54> Vital Signs Temperature 36.8 C 11/19/24 17:26 Pulse Rate 115 H 11/19/24 17:26 Respiratory Rate 24 H 11/19/24 17:26 Blood Pressure 112/98 H 11/19/24 17:26 Pulse Oximetry 96 11/19/24 17:26 Oxygen Delivery Nasal Cannula 11/19/24 17:26 Oxygen Flow Rate 2 11/19/24 17:26 Temperature 36.8 C 11/19/24 17:26 Pulse Rate 129 H 11/19/24 19:30 Respiratory Rate 32 H 11/19/24 19:30 Blood Pressure 112/98 H 11/19/24 17:26 Pulse Oximetry 96 11/19/24 18:30 Oxygen Delivery Nasal Cannula 11/19/24 18:30 Oxygen Flow Rate 2 11/19/24 18:30 <Ryan Fish MD - Last Filed: 11/19/24 22:01> Medical Decision Making MDM Narrative Medical decision making narrative: -Course: 69-year-old female history of COPD and possible lung cancer presenting for worsening shortness breath and subjective fevers. Patient given a 1 hour breathing treatment a full sepsis workup has been obtained. Patient started on ceftriaxone and doxycycline. Given 30 cc/kilogram bolus. Previous sputum cultures grew out Liana albicans which is a contaminant. X-ray showed significant worsening of her right upper lobe consolidation/mass. The rest of the workup is still pending. Patient will require admission after workup is complete. Kyung has been consulted and is happy to consult on the case. -DDX includes but is not limited to: Pneumonia, COPD, progression of cancer, PE <Babatunde Joyner MD - Last Filed: 11/19/24 18:54> Vital Signs Vital Signs: Vital Signs Temperature 36.8 C 11/19/24 17:26 Pulse Rate 115 H 11/19/24 17:26 Respiratory Rate 24 H 11/19/24 17:26 Blood Pressure 112/98 H 11/19/24 17:26 Pulse Oximetry 96 11/19/24 17:26 Oxygen Delivery Nasal Cannula 11/19/24 17:26 Oxygen Flow Rate 2 11/19/24 17:26 Temperature 36.8 C 11/19/24 17:26 Pulse Rate 129 H 11/19/24 19:30 Respiratory Rate 32 H 11/19/24 19:30 Blood Pressure 112/98 H 11/19/24 17:26 Pulse Oximetry 96 11/19/24 18:30 Oxygen Delivery Nasal Cannula 11/19/24 18:30 Oxygen Flow Rate 2 11/19/24 18:30 <Babatunde Joyner MD - Last Filed: 11/19/24 18:54> Vital Signs Temperature 36.8 C 11/19/24 17:26 Pulse Rate 115 H 11/19/24 17:26 Respiratory Rate 24 H 11/19/24 17:26 Blood Pressure 112/98 H 11/19/24 17:26 Pulse Oximetry 96 11/19/24 17:26 Oxygen Delivery Nasal Cannula 11/19/24 17:26 Oxygen Flow Rate 2 11/19/24 17:26 Temperature 36.8 C 11/19/24 17:26 Pulse Rate 129 H 11/19/24 19:30 Respiratory Rate 32 H 11/19/24 19:30 Blood Pressure 112/98 H 11/19/24 17:26 Pulse Oximetry 96 11/19/24 18:30 Oxygen Delivery Nasal Cannula 11/19/24 18:30 Oxygen Flow Rate 2 11/19/24 18:30 <Ryan Fish MD - Last Filed: 11/19/24 22:01> Lab Data Result diagrams: 11/19/24 18:48 11/19/24 18:48 <Babatunde Joyner MD - Last Filed: 11/19/24 18:54> Labs: Lab Results 11/19/24 11/19/24 Range/Units 18:48 20:32 WBC 9.4 (4.5-10.0) K/mm3 RBC 3.28 L (4.2-5.4) M/mm3 Hgb 9.7 L (12.0-15.0) g/dL Hct 30.8 L (37.0-47.0) % MCV 93.9 (80-100) fl MCH 29.6 (26-34) pg MCHC 31.5 L (32-36) g/dl RDW 12.1 (11.5-14.5) % Plt Count 269 (150-375) k/mm3 MPV 9.5 (7.4-10.4) fl Immature Gran % (Auto) 0.4 (0-0.5) % Neut % (Auto) 84.0 H (45.5-73.1) % Lymph % (Auto) 7.1 L (18.3-44.2) % [place] % (Auto) 6.1 (2.6-8.5) % Eos % (Auto) 2.2 (0-4.4) % Baso % (Auto) 0.2 (0.2-1.2) % Lymph # (Auto) 0.67 L (0.9-3.2) K/mm3 [place] # (Auto) 0.6 (0.1-0.6) K/mm3 Eos # (Auto) 0.2 (0-0.3) K/mm3 Baso # (Auto) 0.0 (0.0-0.1) K/mm3 Abs Immat Gran (auto) 0.04 H (0.00-0.031) K/mm3 Absolute Neuts (auto) 7.9 H (1.3-6.7) K/mm3 Absolute Nucleated RBC 0.000 (0.0-0.012) K/mm3 Nucleated RBC % 0.0 (0.0-0.2) % PT 15.0 H (11.1-14.7) Seconds INR 1.2 APTT 39.4 H (22.3-36.8) Seconds Sodium 133 L (137-145) mmol/L Potassium 3.9 (3.4-5.0) mmol/L Chloride 95 L (98-107) mmol/L Carbon Dioxide 32 H (22-30) mmol/L Anion Gap 6 (4-12) mmol/L BUN 8 D (7-17) mg/dL Creatinine 0.55 L (0.7-1.0) mg/dL Estim Creat Clear Calc 51 ml/min Estimated GFR > 60 (59 - ) Glucose 104 (65-110) mg/dL Lactic Acid 1.2 (0.7-2.0) mmol/L Calcium 9.5 (8.4-10.2) mg/dL Magnesium 1.8 (1.6-2.3) mg/dL Total Bilirubin 0.2 (0.2-1.3) mg/dL AST 43 H (14-36) U/L ALT 22 (6-35) U/L Alkaline Phosphatase 121 (38-126) U/L Troponin I < 0.012 (0.000-0.034) ng/mL Total Protein 6.8 (6.3-8.2) g/dL Albumin 3.1 L (3.5-5.1) g/dL Urine Color Yellow (Yellow) Urine Appearance Clear (Clear) Urine pH 6.5 (5.0-9.0) Ur Specific [place] 1.007 (1.001-1.035) Urine Protein Negative (Negative) mg/dL Urine Glucose (UA) Negative (Negative) mg/dL Urine Ketones Negative (Negative) mg/dL Ur Blood (Man) 1+ H (Negative) Urine Nitrate Negative (Negative) Urine Bilirubin Negative (Negative) Urine Urobilinogen 0.2 (<2.0) mg/dL Add Ur Microanalysis Reviewed Leukocyte Esterase Rfl Trace H (Negative) EARNESTINE/UL Urine RBC 0-2 (0-2) /hpf Urine WBC 0-5 (0-3) /hpf Ur Squamous Epith Cells None seen (Few) /hpf Calcium Oxalate Crystal Present (None) /hpf Urine Bacteria None seen /hpf Urine Casts 0-2 Influenza A (RT-PCR) Negative (Negative) Influenza B (RT-PCR) Negative (Negative) RSV (RT-PCR) Negative (Negative) SARS-CoV-2 RNA (RT-PCR) Negative (Negative) <Babatunde Joyner MD - Last Filed: 11/19/24 18:54> Lab Results 11/19/24 11/19/24 Range/Units 18:48 20:32 WBC 9.4 (4.5-10.0) K/mm3 RBC 3.28 L (4.2-5.4) M/mm3 Hgb 9.7 L (12.0-15.0) g/dL Hct 30.8 L (37.0-47.0) % MCV 93.9 (80-100) fl MCH 29.6 (26-34) pg MCHC 31.5 L (32-36) g/dl RDW 12.1 (11.5-14.5) % Plt Count 269 (150-375) k/mm3 MPV 9.5 (7.4-10.4) fl Immature Gran % (Auto) 0.4 (0-0.5) % Neut % (Auto) 84.0 H (45.5-73.1) % Lymph % (Auto) 7.1 L (18.3-44.2) % [place] % (Auto) 6.1 (2.6-8.5) % Eos % (Auto) 2.2 (0-4.4) % Baso % (Auto) 0.2 (0.2-1.2) % Lymph # (Auto) 0.67 L (0.9-3.2) K/mm3 [place] # (Auto) 0.6 (0.1-0.6) K/mm3 Eos # (Auto) 0.2 (0-0.3) K/mm3 Baso # (Auto) 0.0 (0.0-0.1) K/mm3 Abs Immat Gran (auto) 0.04 H (0.00-0.031) K/mm3 Absolute Neuts (auto) 7.9 H (1.3-6.7) K/mm3 Absolute Nucleated RBC 0.000 (0.0-0.012) K/mm3 Nucleated RBC % 0.0 (0.0-0.2) % PT 15.0 H (11.1-14.7) Seconds INR 1.2 APTT 39.4 H (22.3-36.8) Seconds Sodium 133 L (137-145) mmol/L Potassium 3.9 (3.4-5.0) mmol/L Chloride 95 L (98-107) mmol/L Carbon Dioxide 32 H (22-30) mmol/L Anion Gap 6 (4-12) mmol/L BUN 8 D (7-17) mg/dL Creatinine 0.55 L (0.7-1.0) mg/dL Estim Creat Clear Calc 51 ml/min Estimated GFR > 60 (59 - ) Glucose 104 (65-110) mg/dL Lactic Acid 1.2 (0.7-2.0) mmol/L Calcium 9.5 (8.4-10.2) mg/dL Magnesium 1.8 (1.6-2.3) mg/dL Total Bilirubin 0.2 (0.2-1.3) mg/dL AST 43 H (14-36) U/L ALT 22 (6-35) U/L Alkaline Phosphatase 121 (38-126) U/L Troponin I < 0.012 (0.000-0.034) ng/mL Total Protein 6.8 (6.3-8.2) g/dL Albumin 3.1 L (3.5-5.1) g/dL Urine Color Yellow (Yellow) Urine Appearance Clear (Clear) Urine pH 6.5 (5.0-9.0) Ur Specific [place] 1.007 (1.001-1.035) Urine Protein Negative (Negative) mg/dL Urine Glucose (UA) Negative (Negative) mg/dL Urine Ketones Negative (Negative) mg/dL Ur Blood (Man) 1+ H (Negative) Urine Nitrate Negative (Negative) Urine Bilirubin Negative (Negative) Urine Urobilinogen 0.2 (<2.0) mg/dL Add Ur Microanalysis Reviewed Leukocyte Esterase Rfl Trace H (Negative) EARNESTINE/UL Urine RBC 0-2 (0-2) /hpf Urine WBC 0-5 (0-3) /hpf Ur Squamous Epith Cells None seen (Few) /hpf Calcium Oxalate Crystal Present (None) /hpf Urine Bacteria None seen /hpf Urine Casts 0-2 Influenza A (RT-PCR) Negative (Negative) Influenza B (RT-PCR) Negative (Negative) RSV (RT-PCR) Negative (Negative) SARS-CoV-2 RNA (RT-PCR) Negative (Negative) <Ryan Fish MD - Last Filed: 11/19/24 22:01> ABG Data ABG results: 11/19/24 18:23 Puncture Site Left radial ABG pH 7.459 H ABG pCO2 41.9 ABG pO2 73.1 L ABG PO2/FiO2 Ratio 2.61 ABG HCO3 29.1 H ABG O2 Saturation 95.4 ABG O2 Content 18.4 ABG Base Excess 4.7 A-a Gradient 77.1 Oxyhemoglobin 94.6 Total Hemoglobin 13.8 O2 Delivery Device Nasal cannula O2 Liters/Min 2.0 FiO2 28 <Babatunde Joyner MD - Last Filed: 11/19/24 18:54> 11/19/24 18:23 Puncture Site Left radial ABG pH 7.459 H ABG pCO2 41.9 ABG pO2 73.1 L ABG PO2/FiO2 Ratio 2.61 ABG HCO3 29.1 H ABG O2 Saturation 95.4 ABG O2 Content 18.4 ABG Base Excess 4.7 A-a Gradient 77.1 Oxyhemoglobin 94.6 Total Hemoglobin 13.8 O2 Delivery Device Nasal cannula O2 Liters/Min 2.0 FiO2 28 <Ryan Fish MD - Last Filed: 11/19/24 22:01> Critical Care Time Critical Care Time Critical Care Time: Yes <Ryan Fish MD - Last Filed: 11/19/24 22:01> Total Critical Care Time: 35 <Ryan Fish MD - Last Filed: 11/19/24 22:01> Discharge Plan Discharge Clinical Impression: Acute on chronic hypoxic respiratory failure, Malignancy Right upper lobe pneumonia Qualifiers: Pneumonia type: due to unspecified organism Qualified Code(s): J18.9 - Pneumonia, unspecified organism COPD (chronic obstructive pulmonary disease) Qualifiers: COPD type: unspecified COPD Qualified Code(s): J44.9 - Chronic obstructive pulmonary disease, unspecified <Babatunde Joyner MD - Last Filed: 11/19/24 18:54> Patient Disposition: Still a Patient <Babatunde Joyner MD - Last Filed: 11/19/24 18:54> Condition: Stable <Babatunde Joyner MD - Last Filed: 11/19/24 18:54> Patient Language: Cape Verdean <Babatunde Joyner MD - Last Filed: 11/19/24 18:54> Prescriptions: No Action aspirin [Adult Aspirin Regimen] 81 mg tablet,delayed release (DR/EC) 81 mg PO DAILY cyclobenzaprine 5 mg tablet 5 mg PO Q12H solifenacin [Vesicare] 10 mg tablet 5 mg PO HS albuterol sulfate 2.5 mg /3 mL (0.083 %) solution for nebulization 2.5 mg inhalation Q4-6H PRN (Reason: shortness of breath or wheezing) Qty: 180 3RF Xtampza ER 13.5 mg cap,sprinkl,ER12hr(DONT CRUSH) 13.5 mg PO Q12H albuterol sulfate 90 mcg/actuation HFA aerosol inhaler See Rx Instructions .ROUTE .COMPLEX PRN (Reason: Shortness Of Breath Or Wheezing) Rx Instructions: INHALE 1 PUFF BY MOUTH EVERY 4 HOURS NEEDED FOR SHORTNESS OF BREATH lovastatin 40 mg tablet 40 mg PO HS sennosides-docusate sodium [Senokot-S] 8.6-50 mg Tablet 2 tab-cap PO BID PRN (Reason: Constipation) Qty: 120 0RF nicotine 14 mg/24 hr Patch 24 Hour 1 patch transdermal DAILY Qty: 28 0RF oxycodone 5 mg Tablet 5 mg PO Q4HR PRN (Reason: Pain 7-10) Qty: 15 0RF loratadine 10 mg Tablet 10 mg PO DAILY cholecalciferol (vitamin D3) [Vitamin D3] 125 mcg (5,000 unit) Tablet 125 mcg PO DAILY guaifenesin [Mucinex] 600 mg Tablet Extended Release 12hr 1,200 mg PO Q12H omeprazole 40 mg capsule,delayed release(DR/EC) 40 mg PO DAILY Qty: 90 1RF Rx Instructions: TAKE 1 CAPSULE BY MOUTH DAILY Stiolto Respimat 2.5-2.5 mcg/actuation mist See Rx Instructions .ROUTE .COMPLEX Qty: 4 11RF Dose Instruction: INHALE 2 PUFFS BY MOUTH DAILY Rx Instructions: INHALE 2 PUFFS BY MOUTH DAILY gabapentin 300 mg capsule 300 mg PO Q12H Qty: 180 0RF ferrous sulfate [FeroSul] 325 mg (65 mg iron) tablet See Rx Instructions .ROUTE .COMPLEX Qty: 30 3RF Dose Instruction: TAKE 1 TABLET BY MOUTH EVERY MORNING Rx Instructions: TAKE 1 TABLET BY MOUTH EVERY MORNING metoprolol succinate 25 mg tablet extended release 24 hr See Rx Instructions .ROUTE .COMPLEX Qty: 90 2RF Dose Instruction: TAKE 1 TABLET BY MOUTH DAILY Rx Instructions: TAKE 1 TABLET BY MOUTH DAILY fluticasone propionate 50 mcg/actuation spray,suspension See Rx Instructions .ROUTE .COMPLEX Qty: 48 6RF Dose Instruction: SHAKE LIQUID AND USE 1 SPRAY IN EACH NOSTRIL TWICE DAILY NEEDED FOR NASAL CONGESTION Rx Instructions: SHAKE LIQUID AND USE 1 SPRAY IN EACH NOSTRIL TWICE DAILY NEEDED FOR NASAL CONGESTION <Babatunde Joyner MD - Last Filed: 11/19/24 18:54> Follow-up/Referrals: Grace Monrdagon DO [Primary Care Provider] - <Babatunde Joyner MD - Last Filed: 11/19/24 18:54> Time of Disposition: 22:01 <Babatunde Joyner MD - Last Filed: 11/19/24 18:54> 22:01 <Ryan Fish MD - Last Filed: 11/19/24 22:01>
[2024-11-19] MEDS: SODIUM CHLORIDE 0.9% IV 1,000 ML 999 ML IV CONT (18:47)
[2024-11-19] MEDS: SODIUM CHLORIDE 0.9% IV 300 ML 999 ML IV CONT (18:47)
[2024-11-19 18:55] LABS: Hematocrit 30.8 % (37.0-47.0); Hemoglobin 9.7 g/dL (12.0-15.0); Immature Granulocyte Percent A 0.4 % (0-0.5); Lymphocytes Absolute Auto 0.67 K/mm3 (0.9-3.2); Mean Corpuscular HGB Conc 31.5 g/dl (32-36); Mean Corpuscular Hemoglobin 29.6 pg (26-34); Mean Corpuscular Volume 93.9 fl (80-100); Nucleated Red Blood Cells Absolute Auto 0.000 K/mm3 (0.0-0.012); Nucleated Red Blood Cells Perc 0.0 % (0.0-0.2); Platelet Count Result 269 k/mm3 (150-375); Red Blood Count 3.28 M/mm3 (4.2-5.4); White Blood Count 9.4 K/mm3 (4.5-10.0)
[2024-11-19 19:08] LABS: Alanine Aminotransferase 22 U/L (6-35); Albumin Level 3.1 g/dL (3.5-5.1); Alkaline Phosphatase 121 U/L (38-126); Anion Gap 6 mmol/L (4-12); Aspartate Amino Transferase 43 U/L (14-36); Bilirubin,Total 0.2 mg/dL (0.2-1.3); Blood Urea Nitrogen 8 mg/dL (7-17); Calcium 9.5 mg/dL (8.4-10.2); Carbon Dioxide 32 mmol/L (22-30); Chloride 95 mmol/L (98-107); Estimated CRCL calculation 51 ml/min; Estimated Glomerular Filt Rate > 60; Glucose 104 mg/dL (65-110); Magnesium 1.8 mg/dL (1.6-2.3); Potassium 3.9 mmol/L (3.4-5.0); Sodium 133 mmol/L (137-145); Total Protein 6.8 g/dL (6.3-8.2)
[2024-11-19 19:10] LABS: INR 1.2; Prothrombin Time 15.0 Seconds (11.1-14.7)
[2024-11-19 19:13] LABS: Partial Thromboplastin Time 39.4 Seconds (22.3-36.8)
[2024-11-19 19:20] LABS: Troponin I < 0.012 ng/mL (0.000-0.034)
--- OUTSIDE RECORDS SUMMARY | 2024-11-19 20:14 | XMS_ITS | Clinical Summary ---
Author Organization [facility] Address [address] [place] [address] Care Team Providers Care Patternmaker Name Role Phone West Pino MD Unavailable [phone] Yvan Jaime MD Unavailable [phone] None, Provider MD Primary Care Provider Unavaila [...] CDT Gender Identity Female 05/09/2021 3:57 PM TACK COVERER Sexual Orientation Straight 05/09/2021 3: 57 PM TACK COVERER Last Filed Vital Signs Vital Sign Reading Time Taken Comments Blood Pressure 106/60 03/28/2022 9:13 AM TACK COVERER Pulse 80 03/28/2022 9:13 AM TACK COVERER Temperature 36.1 C (97 F) 03/28/2022 9:13 AM TACK COVERER Respiratory Rate 20 03/28/2022 9:13 AM TACK COVERER Oxygen Saturation 94% 03/28/2022 9:13 AM TACK COVERER Inhaled Oxygen Concentration - - Weight 52.6 kg (116 lb) 03/28/2022 9:13 AM TACK COVERER Height 167.6 cm (5' 6) 03/28/2022 9:13 AM TACK COVERER Body Mass Index 18.72 03/28/2022 9:13 AM TACK COVERER Plan of Treatment Upcoming Encounters Date Type Department Care Team (Late st Contact Info) Description 12/03/2024 9:[address] [facility] [place] [address] Grace Mondragon DO [address] [place] [address] Health Maintenance Due Date Last Done Comments [...] this topic Medical Devices Implanted Type Area Store Protection Specialist Device Identifier Shelf Expiration Date Model / Serial / Lot Stimulator Lead Implant-2021 Implanted: by Esau Rose MD (Quantity not on file) Lead Implant Spine Thoracic [employer] [id number] / / Description:T8-T9 Stent Bard [place] 6fr X 24cm - [id number] Implanted:Qty : 1 on 05/17/2019 by West Pino MD at [facility] Stent Left: Ureter [employer] 05/12/2023 [id number] / / [id number] Stent Bard [place] 6fr X 24cm - [id number] Implanted:Qty : 1 on 05/17/2019 by West Pino MD at [facility] Stent Right: Ureter [employer] 05/12/2023 [id number] / / [id number] Stent Ureteral Pigtail 6fr 24cm Crv Taper Tip - [id number] Implanted:Qty : 1 on 02/26/2021 by West Pino MD at [facility] Stent Left: Ureter [employer] [id number] 11/28/2023 [id number] / / [id number] Stimulator Implant-2021 Implanted:Qty : 1 on 05/23/2021 by Esau Rose MD Stimulator Implant Back [facility] [facility] - DIV [employer] [id number] PROCLAIM / [id number] / Description:MR CONDITIONAL A T 1.5 T ONLY, NEED REMOTE TO CHECK IMPEDANCE AND TURN OFF STIMULATION, FOLLOW SCAN CONDITIONS IN MOST RECENT MRI TECHNICAL MANUAL Procedures Procedure Name Priority Date/Time Associated Diagnosis Comments MG SCREENING PAIGE DIGI Routine 04/16/2015 3:06 PM TACK COVERER from Last 3 Months or Most Recently Relevant to Health Maintenance Results * MG SCREENING PAIGE DIGI (04/16/2015 3:06 PM TACK COVERER) Anatomical Region Laterality Modality Breast Bilateral Mammography 04/16/2015 3:06 PM TACK COVERER 04/16/2015 3:06 PM TACK COVERER Narrative 04/16/2015 3:24 PM TACK COVERER MELYSSA MCCALL ADMIT/SERVICE DATE: 04/16/15 ACCT: [id number] DISCHARGE DATE: : 1955 SEX: F ORD SITE: [facility] PT TYPE: REG CLI ORDERING MD: MANE RAMIREZ MD STUDY DATE REPORT # ORDER # EXT ORDER ID 04/16/15 [id number] PROC CODE: SCMAMDGB PROCEDURE DESCRIPTION: MG SCREEN [...] - 02/26/2018 MELYSSA MCCALL ADMIT/SERVICE DATE:04/16/15 ACCT: [id number] DISCHARGE DATE: : 1955 SEX: F ORD SITE: [facility] PT TYPE: REG CLI ORDERING MD:MANE RAMIREZ MD STUDY DATE REPORT # ORDER # EXT ORDER ID 04/16/15 [id number] PROC CODE: SCMAMDGB PROCEDURE DESCRIPTION: MG SCREEN [...] Recently Relevant to Health Maintenance Insurance MEDICAID [facility] Advance Directives * Full Code (Latest Code Status on File) Date Activated Date Inactivated Comments 02/26/2021 1:01 PM 02/26/2021 3:43 PM Care Teams Patternmaker Relationship Specialty Start Date End Date None, Provider, PCP - General UNKNOWN PHYSICIAN SPECIALTY 03/28/22 West Pino MD UROLOGY 05/03/19 Yvan Jaime MD [address] [place] [id number] Surgeon NEUROLOGICAL SURGERY 05/03/19
--- OUTSIDE RECORDS SUMMARY | 2024-11-19 20:14 | XMS_ITS | Continuity of Care Document ---
Author Organization [facility] Address [address] [facility] [place] [address] Phone Care Team Providers Care Project Structural Engineer Name Role Phone Sherif Doyle MD [...] Patch - Active Miacalcin 200 unit/Actuation Nasal [employer] Aerosol 1 spray each nostril qd - [...] on Encounter [facility], [address], [id number], [place] tel:[phone] [facility] No Information 6 Vivek Gorman. [address] [place] [address], [id number] , [place]. tel:[phone] Offic/outpt E&m Estab Minor 10 [facility], [address] [address], [place], [place], [id number], [place] tel:[phone] [facility] No Information 6 José Luis Sullivan. [address] [facility], [address], [id number] , [place]. tel:[phone] Referring Provider: Nate Ordonez V, [address], [address] . tel:[phone] [facility], [address], [place], [place], [id number], [place] tel:[phone] [facility] No Information 6 José Luis Sullivan. [address], [place], [place], [id number] , [place]. tel: [phone] Referring Provider: Nate Ordonez V, [address], [place], [address] . tel:[phone] [facility], [address], [place], [place], [address], [place] tel:[phone] [facility] No Information 6 José Luis Sullivan. [address], [place], [place], [id number] , [place]. tel: [phone] Referring Provider: Nate Ordonez V, [address], [place], [address] . tel:[phone] Offic/outpt E&m Estab Low-mod [facility], [address], [place], [place], [id number], [place] tel:[phone] [facility] No Information 6 José Luis Sullivan. [address], [place], [id number] , [place]. tel:[phone] Referring Provider: Nate Ordonez V, [address], [place], [address] . tel:[phone] Offic/outpt E&m Estab Low-mod [facility], [address], [place], [place], [address], [place] tel:[phone] [facility] No Information 6 José Luis Sullivan. [address], [place], [place], [address] , [place]. tel: [phone] Referring Provider: Nate Ordonez V, [address], [place], [address] . tel:[phone] Offic/outpt E&m Estab Minor 10 [facility], [address], [place], [place], [id number], [place] tel:[phone] [facility] No Information May-0 9-200 6 José Luis Sullivan. [address], [place], [place], [address] , [place]. tel:[phone] Referring Provider: Nate Ordonez V, [address], [place], [address] . tel:[phone] [facility], [address], [place], [place], [address], [place] tel:[phone] [facility] No Information May-0 5-200 6 José Luis Sullivan. [address], [place], [place], [address] , [place]. tel:[phone] Referring Provider: Nate Ordonez V, [address], [place], [address] . tel:[phone] [facility], [address], [place], [place], [address], [place] tel:[phone] [facility] No Information May-0 2-200 6 José Luis Sullivan. [address], [place], [place], [id number] , [place]. tel:[phone] Referring Provider: Nate Ordonez V, [address], [place], [address] . tel:[phone] [facility], [address], [place], [place], [address], [place] tel:[phone] [facility] No Information Apr-2 8-200 6 Ordonez Nate. [address], [place], [place], [id number] , [place]. tel:[phone] Referring Provider: Nate Ordonez V, [address], [place], [address] . tel:[phone] [facility], [address], [place], [place], [id number], [place] tel:[phone] [facility] No Information Aug- 5-200 6 José Luis Sullivan. [address], [place], [place], [address] , [place]. tel:[phone] Referring Provider: Nate Ordonez V, [address], [place], [address] . tel:[phone] [facility], [address], [place], [place], [address], [place] tel:[phone] [facility] No Information 6 José Luis Sullivan. [address], [place], [place], [id number] , [place]. tel:[phone] Referring Provider: Nate Ordonez V, [address], [place], [address] . tel:[phone] [facility], [address], [place], [place], [address], [place] tel:[phone] [facility] No Information 200 6 José Luis Sullivan. [address], [place], [place], [address] , [place]. tel:[phone] Referring Provider: Nate Ordonez V, [address], [place], [address] . tel:[phone] Offic Cons New/estab Mod-hi 60 [facility], [address], [place], [place], [address], [place] tel:[phone] [facility] No Information 8-200 6 José Luis Sullivan. [address], [facility] [address], [place], [place], [id number] , [place]. tel:[phone] Referring Provider: Nicho Goldstein MD B, [address] [place] [place], [address]. tel:[phone] Family History Family Member Type Diagnosis Age At Onset Gen Fam Hx Problem (finding) Cancer Gen Fam Hx Problem (finding) Stroke Payers Payer name Insurance type Covered green party ID Authorstepha jevon(s) BCBS Of [facility] [id number] Social History Type Description Quantity Date Captured [...]
--- OUTSIDE RECORDS SUMMARY | 2024-11-19 20:14 | XMS_ITS | Encounter Summary ---
Author Organization [facility] Address [address] [place] [address] Care Team Providers Care Mold Maker Helper Name Role Phone Unavailable Primary Care Provider Unavailabl e Encounter Details Date Type Department Care Team (Late Contact Info) Description 11/18/2024 Orders Only [facility] Gynecologic Oncology [place] [address] [place] [address] Mary Rand MD [address] [place] [address] Hepatocellular carcinoma (CMS/HCC) (Primary Dx) [...] Description 12/01/2024 2:00 PM CDT Office Visit [facility] Oncology and Hematology - Lane [address] [facility] [address] [place] [address] Sebastian Gipson MD [address] [facility] [address] [place] [address] 12/05/2024 10:00 AM CDT Office Visit [facility] Surgical Oncology [place] [address] [place] [address] Mary Rand MD [address] [place] [address] documented as of this encounter Visit Diagnoses Diagnosis Hepatocellular carcinoma (CMS/HCC)- Primary Malignant neoplasm of liver, primary documented in this encounter
--- OUTSIDE RECORDS SUMMARY | 2024-11-19 20:14 | XMS_ITS | Encounter Summary ---
Author Organization [facility] Address [facility] [place] [address] Care Team Providers Care Consumer Marketing Manager Name Role Phone Milena Dos Santos MD Primary Care Provider [phone] Tommy King DO Primary Care Provider [phone] [place] MD Unavailable [phone] Yvan Jaime MD Unavailable [phone] None, Provider MD Primary Care Provider Unavaila ble Encounter Details Date Type Department Care Team (Latest Contact Info) Description 03/09/2018 Abstract [facility] Michael Mclean MD Social History Tobacco Use Types Packs/Day Years Used Date Smoking Tobacco: Smoker, Current Status Unknown Comments Unknown Sex and Gender Information Value Date Recorded Sex Assigned at Not on file Legal Sex Female 11:35 PM CDT Gender Identity Female 05/09/2021 3:57 PM FRUIT DUMPER Sexual Orientation Straight 05/09/2021 3: 57 PM FRUIT DUMPER documented as of this encounter Plan of Treatment Upcoming Encounters Date Type Department Care Team (Late st Contact Info) Description 12/03/2024 9:[address] [facility] [place] [address] Grace Mondragon DO [address] [place] [address] documented as of this encounter Visit Diagnoses Not on filedocumented in this encounter Care Teams Consumer Marketing Manager Relationship Specialty Start Date End Date Milena Dos Santos MD [address] [place] [address] PCP - General 06/03/16 04/03/19 Tommy King DO [address] [place] [address] PCP - General INTERNAL MEDICINE 04/04/19 03/27/22 None, MD Shena PCP - General UNKNOWN PHYSICIAN SPECIALTY 03/28/22 [place] MD [address] [place] [address] UROLOGY 05/03/19 Yvan Jaime MD [address] [place] [address] Surgeon NEUROLOGICAL SURGERY 05/03/19 documented as of this encounter
--- OUTSIDE RECORDS SUMMARY | 2024-11-19 20:14 | XMS_ITS | Encounter Summary ---
Author Organization [facility] Address [address] [place] [address] Care Team Providers Care Supervisor Purification Name Role Phone Unavailable Primary Care Provider [...] Description 12/01/2024 2:00 PM CDT Office Visit [facility] Oncology and Hematology - [address] [facility] [address] [place] [address] Sebastian Gipson MD [address] [facility] [address] [place] [address] 12/05/2024 10:00 AM CDT Office Visit [facility] Surgical Oncology [place] [address] [facility] [address] [place] [address] Mary Rand MD [address] [place] [address] documented as of this encounter Visit Diagnoses Not on filedocumented in this encounter
--- OUTSIDE RECORDS SUMMARY | 2024-11-19 20:14 | XMS_ITS | Clinical Summary ---
Author Organization [facility] [employer] Address [address] [facility] [place] [address] Care Team Providers Care Beverage Host Name Role Phone Tommy King DO Primary Care Provider [phone] Source Comments [facility],non-owned Affiliates and Associated Physician Practices is amultiple site organization consisting of ambulatory clinics and hospital sitesin [place], [place], [place] and [place]. This disclosure is being madepursuant to the Care Everywhere program and may not contain all information available regarding this patient. Last updated 18.[facility] Allergies Active Allergy Reactions Criticality Noted [...] fluticasone propionate (FLONASE) 50 MCG/ACT nasal spray [place] 2 sprays into the nose once daily [...] C (98.3 F) 06/12/2021 10:53 AM AUTO CARE CENTER MANAGER Respiratory Rate 18 05/23/2021 12:51 PM AUTO CARE CENTER MANAGER Oxygen Saturation 91% 08/05/2021 9:59 AM CDT [...] this topic Medical Devices Implanted Type Area Managed Care Liaison Device Identifier Shelf Expiration Date Model / Serial / Lot Lead Nrstm 60cm Penta 3mm Pdl 16 [facility] - [id number] Implanted:Qty: 1 on 05/23/2021 by Esau Rose MD at [facility] Back [employer] 10/19/2022 [id number] / [id number] / Slnt Dura Duraseal Pg Trilysine Amine 5 Implanted:Qty: 1 on 05/23/2021 by Esau Rose MD at [facility] Back [employer] Erendira [id number] / / [id number] Gntr Nrstm 1.95inx2.19in [employer] Elt - [id number] Implanted:Qty: 1 on 05/23/2021 by sEau Rose MD at [facility] Left: Back [employer] 03/26/2023 3660 / [id number] / Insurance MEDICARE [place] [employer] MANAGED MEDICARE ADV MEDICAID SPEND[place] SELF PAY NO INSURANCE Member Subscriber Plan / Payer (Ef fective for All Dates) Name:Melyssa Mccall Member ID:Not on file Relation to Subscriber:Not on file Name:MELYSSA MCCALL Subscriber ID:Not on file (Home) Address: [address] [place] [address] [place] [address] Payer ID:Not on file Group ID:Not on file Type:Self Pay Address: [facility] MANAGED MEDICARE [facility] MEDICARE MEDICAID - OUT OF STATE Care Teams Beverage Host Relationship Specialty Start Date End Date Tommy King DO PCP - General Internal Medicine 04/23/21
--- OUTSIDE RECORDS SUMMARY | 2024-11-19 20:14 | XMS_ITS | Referral Summary ---
Author Organization [facility] Address [address] [place] [address] Care Team Providers Care Serging Machine Operator Automatic Name Role Phone Tommy King DO Primary Care Provider [phone] Allergies Active Allergy Reactions Criticality Noted Date [...] on file Legal Sex Female 4:04 AM FOUNTAIN MANAGER Gender Identity Not on file Sexual Orientation Not on file Occupation Industry Job Start Date Job End Date on [employer] Not on file Not on file [...] Treatment Not on [place] [address] MEDICARE IDPA MEDICARE [facility] Address: [address] [address] [place] [address] Care Teams Serging Machine Operator Automatic Relationship Specialty Start Date End Date Tommy King DO PCP - General Internal Medicine 09/11/20
--- OUTSIDE RECORDS SUMMARY | 2024-11-19 20:14 | XMS_ITS | Encounter Summary ---
Author Organization [facility] [employer] [facility] Address [address] [place] [address] Care Team Providers Care Natural Sciences Department Chair Name Role Phone Unavailable Primary Care Provider Unavailabl e Encounter Details Date Type Department Care Team (Late Contact Info) Description 11/15/2024 Orders Only [facility] Oncology and Hematology - [address] [place] [address] Sebastian Gipson MD [address] [place] [address] Social History Tobacco Use Types Packs/Day [...] Description 12/01/2024 2:00 PM CDT Office Visit [facility] Oncology and Hematology - Lane Jeanne [address] [place] [address] Sebastian Gipson MD [address] [place] [address] 12/05/2024 10:00 AM CDT Office Visit [facility] Surgical Oncology [place] [address] [facility] [address] [place] [address] Mary Rand MD [address] [facility] [address] [place] [address] documented as of this encounter Visit Diagnoses Not on filedocumented in this encounter
--- OUTSIDE RECORDS SUMMARY | 2024-11-19 20:14 | XMS_ITS | Clinical Summary ---
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
--- OUTSIDE RECORDS SUMMARY | 2024-11-19 20:14 | XMS_ITS | Encounter Summary ---
Author Organization [facility] Address [address] [place] [address] Care Team Providers Care Associate Broker Name Role Phone Unavailable Primary Care Provider Unavailabl e Reason for Visit * Reason Onset Date Comments Patient Communication 11/18/2024 Encounter Details Date Type Department Care Team (Late st Contact Info) Description 11/18/2024 Telephone [facility] Surgical Oncology [place] [address] [place] [address] Mary Rand MD [address] [place] [address] Patient Communication Social History Tobacco [...] and will keep her 12/03/2024 appointment with [facility]. We will see patient on , documented in this encounter Plan of Treatment Upcoming Encounters Date Type Department Care Team (Late st Contact Info) Description 12/01/2024 2:00 PM CDT Office Visit [facility] Oncology and Hematology - [address] [facility] [address] [place] [address] Sebastian Gipson MD [address] [facility] [address] [place] [address] 12/05/2024 10:00 AM CDT Office Visit [facility] Surgical Oncology [place] [address] [place] [address] Mary Rand MD [address] [place] [address] documented as of this encounter Visit Diagnoses Not on filedocumented in this encounter
--- OUTSIDE RECORDS SUMMARY | 2024-11-19 20:14 | XMS_ITS | Clinical Summary ---
Author Organization [facility] Address [address] [facility] [place] [address] Care Team Providers Care Fire Extinguisher Repairer Inspector Name Role Phone Unavailable Primary Care Provider [...] Type Department Care Team Description 11/18/2024 Telephone [facility] Surgical Oncology [place] [address] [place] [address] Mary Rand MD Patient Communication 11/18/2024 Orders Only [facility] Gynecologic Oncology [place] [address] [place] [address] Mary Rand MD Hepatocellular carcinoma (CMS/HCC) (Primary Dx) 11/16/2024 External Device Data STL ABSTRACTION Provider, Abstract 11/16/2024 External Device Data STL ABSTRACTION Provider, Abstract 11/16/2024 External Device Data STL ABSTRACTION Provider, Abstract 11/15/2024 External Device Data STL ABSTRACTION Provider, Abstract 11/15/2024 Orders Only [facility] Oncology [facility] [address] [place] [address] Sebastian Gipson MD Hepatocellular carcinoma (CMS/HCC) (Primary Dx) 11/15/2024 Orders Only [facility] Oncology [facility] [address] [place] [address] Sebastian Gipson MD 11/14/2024 4:00 PM CDT Office Visit [facility] Oncology [facility] [address] [place] [address] Sebastian Gipson MD Hepatocellular carcinoma (CMS/HCC) (Primary [...] Description 12/01/2024 2:00 PM CDT Office Visit [facility] Oncology and Hematology - [address] [facility] [address] [place] [address] Sebastian Gipson MD [address] [facility] [address] [place] [address] 12/05/2024 10:00 AM CDT Office Visit [facility] Surgical Oncology [place] [address] [facility] [address] [place] [address] Mary Rand MD [address] [facility] [address] [place] [address] Health Maintenance Due Date Last Done Comments [...] 2024 01/13/2018 Medical Devices Implanted Type Area Assessment Coordinator Device Identifier Shelf Expiration Date Model / Serial / Lot Neuro Stimulator Neuro Stimulator [facility] 3660 / / Description:Leads - 3228 MRI [...] between sessions. PT must bring in remote [place] 11/18/24 Procedures Procedure Name Priority Date/Time Associated Diagnosis Comments [facility] NORMAL BLO[facility] Routine 11/15/2024 3:18 PM CDT Hepatocellular carcinoma (CMS/HCC) from Last 3 Months Results * [facility] NORMAL BLOOD (11/15/2024 3:18 PM CDT) Pathologist [facility] 11/15/2024 11:00 PM CDT [facility] Comment:See NGS Report for R esults. Blood specimen (specimen) 11/15/2024 3:18 PM CDT 11/15/2024 3:19 PM CDT us Sebastian Gipson MD MOLECULAR ORDERABLES Final Resu lt [facility] [address] [place] [address], [facility] [address] [place] [address] from Last 3 Months Insurance [place]
[2024-11-19] MEDS: cefTRIAXone 1 GM in SODIUM CHLORIDE 0.9% IV 50 ML 100 ML IVPB (20:27)
[2024-11-19 20:53] LABS: Add Urine Microscopic? YES; Appearance Urine Clear (Clear); Glucose Urine UA Negative (Negative); Leukocyte Esterase Ur Trace LEU/UL (Negative); Need Manual Microscopic Reviewed; Nitrate Urine Negative (Negative); Non Pathogenic Casts 0-2; Specific Grav Ur 1.007 (1.001-1.035)
[2024-11-19] MEDS: DOXYCYCLINE IV 100 MG in SODIUM CHLORIDE 0.9% IV 100 ML IVPB (21:10)
[2024-11-19 21:13] LABS: Influenza A QL RT-PCR Negative (Negative); Influenza B QL RT-PCR Negative (Negative); RSV RNA, RT-PCR Negative (Negative); SARS-CoV-2 RNA PCR Negative (Negative)
--- NOTE | 2024-11-19 21:51 | ECG_ITS ---
Test Date: 2024-11-19 22:02:24 Measurements Intervals [place] Rate: 111 P: 78 NV: 135 QRS: 42 QRSD: 86 T: 76 QT: 319 QTc: 434 Interpretive Statements SINUS TACHYCARDIA ABNORMAL RHYTHM ECG Compared to ECG 11/01/2024 08:05:59 No significant changes Electronically Signed On 11-20-2024 08:16:36 CDT by Noble Harper M.D.
[2024-11-19] MEDS: CEFEPIME 2 GM in SODIUM CHLORIDE 0.9% IV 50 ML 100 ML IVPB (22:12)
[2024-11-19 22:24] LABS: Procalcitonin 0.2 ng/mL
--- NOTE | 2024-11-19 22:39 | ADMGEN ---
This patient, Melyssa Mccall, was admitted to IMU Room 232-01. Patient/family oriented to hospital policies and general routines including ID bracelet, bed and alarms, visiting hours, pain management, procedures, bathroom and other care routines, personal items, smoking policy, room service/diet, and visiting hours. Information on how to activate the Rapid Response Team has been discussed. Patient/Family are encouraged to report perceived risks to care and to ask questions if they do not understand what they are told or what they should do.
[2024-11-19] MEDS: VANCOMYCIN HCL 1,000 MG in SODIUM CHLORIDE 0.9% IV 250 ML 250 MG IVPB (23:12)
[2024-11-19 23:19] LABS: MRSA (PCR) NOT DETECTED (NOT DETECTE)
[2024-11-20] VITALS (28 sets, daily range): BP systolic 99–137; BP diastolic 50–60; PULSE 79–107; RESP 12–22; TEMP 36.6–36.9; O2SAT 93–99
--- NOTE | 2024-11-20 00:27 | PM.IMHP ---
H&P: HPI History of Present Illness Date/Time: 11/19/24 23:50 Chief Complaint: Worsening shortness of breath and cough Narrative: 69-year-old female with extensive past medical history, including but not limited to, recent diagnosis of hepatocellular carcinoma, severe obstructive lung disease on chronic home O2 2 L with recent smoking cessation, iron deficiency anemia, chronic severe protein calorie malnutrition and GERD with prior esophageal stricture requiring dilatation who presented to the ER with worsening cough and shortness of breath. Patient reports that her cough is always productive of yellow to greenish sputum. She reported that after recent hospitalization (11/02/2024 through 11/07/2024) her shortness of breath and cough had improved slightly. But over the last 2 or 3 days she has had worsening cough and shortness of breath. Her sputum production remains the same. She has been having increasing hot flashes and chills which she presumes is due to fever but she did not check her temperature. She was afebrile in the ER. She denies any chest pain or palpitations but did have sinus tachycardia in the ER with heart rate ranging between the low 100s up to 130. She received 30 mL/kilos fluid bolus in the ER with resolution of her tachycardia. Her flu RSV and COVID PCR was negative. Chest x-ray demonstrated worsening right upper lobe pneumonia/consolidation with chronic underlying COPD pattern. With significant worsening in in findings compared to her admission chest x-ray previously on 11/01/2024. Given her recurrent pneumonia CTA was obtained in the ER which demonstrated significantly worsening right upper lobe consolidation compatible with worsening pneumonia with element of underlying atelectasis or neoplasm not excluded. Possible necrotic changes verses bronchiectasis within the areas of consolidation with underlying advanced COPD/emphysema. Imaging also demonstrated probable splenomegaly. The patient reports that she had her outpatient PET scan performed but does not know the results. On my review of the chart patient her PET scan on 11/15/2024 demonstrated biopsied mass of the right hepatic lobe essentially indiscernible on both noncontrast CT images as well as PET scan images indicating a relatively low degree of FDG uptake which would decreased sensitivity for assessment of metastatic disease. PET scan also demonstrated multifocal pneumonia right lung consolidation involving large portion of the right upper lobe with multiple mildly FDG avid fit right hilar and mediastinal lymph nodes which given distribution likely represent reactive lymph nodes in the setting of right pneumonia with recommended 3 month follow-up noncontrast CT to follow. And diffuse bone marrow uptake most likely physiologic given absence of associated lytic or blastic bone lesions. She has not yet had follow-up with Dr. Gipson from Oncology. She does follow with pulmonology and did get the results of her liver biopsy which identified hepatocellular carcinoma from Dr. Tracey. She has chronic severe protein calorie malnutrition but states that her appetite has remained relatively good for her. She has had onset of diarrhea since her last hospitalization and reports loose watery stools any time she eats anything. She denies any bloody stools are mucousy stools. She denies any abdominal pain. She feels like she empties her bladder completely and denies dysuria or changes in urinary frequency. Review of Systems Review of Systems: 12 systems were reviewed with pertinent positives and negatives per HPI. Except as documented in the HPI, all other systems were reviewed and are negative. [facility] Past Medical History Medical History (Updated 11/20/24 @ 02:16 by Ivelisse Man DO) Vitamin D deficiency B12 deficiency Mixed incontinence Liana esophagitis Peripheral neuropathy Raynaud disease OSWALD (iron deficiency anemia) Osteopenia RLS (restless legs syndrome) Chronic narcotic use On home O2 Chronic sinusitis Olecranon bursitis, left elbow PSVT (paroxysmal supraventricular tachycardia) Kidney stones Fibromyalgia Rheumatoid arthritis Constipation IBS (irritable bowel syndrome) GERD (gastroesophageal reflux disease) Lumbar radiculopathy Esophageal stricture Status post dilatation ILD (interstitial lung disease) Small amount of interstitial lung disease was seen on base of lungs on chest CT 03/25/2018 which was an abdomen and pelvis CT Essential hypertension Collagen vascular disease Hyperlipidemia, unspecified Anxiety 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, patient unsure of this diagnosis COPD (chronic obstructive pulmonary disease) With severe obstructive disease noted on recent PFTs October 2024 with significant decompensation compared to prior study Tobacco abuse Quit 08/2024 Surgical History Surgical History (Updated 11/20/24 @ 01:08 by Ivelisse Man DO) History of esophagogastroduodenoscopy (EGD) With history of esophageal dilatation of History of colonoscopy with polypectomy History of partial hysterectomy Status post insertion of spinal cord stimulator History of bladder suspension procedure History of appendectomy History of lumbar surgery Spinal cord stimulator implanted 05/23/21 Family History Family History Mother Patient's mother is , Onset Age: 72 Sibling Carcinoma of colon Ovarian cancer Lung cancer Rectal cancer Family history of malignant neoplasm of breast in first degree relative Father Brain aneurysm Cerebrovascular accident, Onset Age: 54 Other Arthritis COPD (chronic obstructive pulmonary disease) High cholesterol Hypertension Lung disease Neuropathy Social History Social History (Updated 11/20/24 @ 00:51 by Ivelisse Man DO) Social History: The patient reports that she has been since 2007 and lives alone. She has 1 son who lives in [place]. She quit smoking in August 2024 of months prior to that she smoked a pack of cigarettes per day for close to 60 years. She denies any significant alcohol use. Code status: DNR/DNI (she would be okay with pressors if needed for blood pressure support) Healthcare power of state attorney: Cole (son) or Romi (friend) Smoking packs per day: 1 Smoking cigarettes per day: 20.0 Years smoked: 60 Smoking pack-years: 60.00 Smoking status: Former smoker Second hand tobacco smoke exposure: Yes Smoking end date: 08/02/24 Additional smoking assessment comments: Using Nicotine patches AT TIMES Alcohol intake: never Substance use: never Substance use type: does not use Do You Feel Safe in your Home?: Yes Lack of Transportation: No Lack of Food: Never True Current Housing: I Have Housing Concerned About Future Housing: No Difficulty Paying Gas/Electric Bills: No Difficulty Paying for Meds: No Currently Unemployed: No Education: Trade/Vocational Certificate Difficulty w/ Childcare or Family Care: No Living arrangements: alone Occupation/Education: retired Gender identity (if verbalized by the patient): Female Spiritual care concerns: No (BUDDHIST) Meds Home Medications and Allergies Home Medications ?Medication ?Instructions ?Recorded ?Confirmed ?Type aspirin 81 mg tablet,delayed 81 mg PO DAILY 06/02/19 11/19/24 History release (Adult Aspirin Regimen) cyclobenzaprine 5 mg tablet 5 mg PO Q12H 01/05/20 11/19/24 History oxycodone myristate 13.5 mg 13.5 mg PO Q12H 11/19/21 11/19/24 History capsule sprinkle extend release 12hr(DON'T CRUSH) (Xtampza ER) solifenacin 10 mg tablet (Vesicare) 5 mg PO HS 02/04/23 11/19/24 History cholecalciferol (vitamin D3) 125 125 mcg PO DAILY 07/24/23 11/19/24 History mcg (5,000 unit) tablet (Vitamin D3) guaifenesin 600 mg tablet, 1,200 mg PO Q12H 07/24/23 11/19/24 History extended release 12 hr (Mucinex) loratadine 10 mg tablet 10 mg PO DAILY 07/24/23 11/19/24 History albuterol sulfate 90 mcg/actuation See Rx Instructions .Route 03/15/24 11/19/24 History aerosol inhaler .COMPLEX PRN Shortness Of Breath Or Wheezing omeprazole 40 mg capsule,delayed 40 mg PO DAILY #90 caps 06/02/24 11/19/24 Rx release albuterol sulfate 2.5 mg/3 mL 2.5 mg (3 mL) inhalation Q4-6H PRN 06/07/24 11/19/24 Rx (0.083 %) solution for nebulization shortness of breath or wheezing #180 mL tiotropium 2.5 mcg-olodaterol 2.5 See Rx Instructions .Route 06/20/24 11/19/24 Rx mcg/actuation mist for inhalation .COMPLEX #4 grams (Stiolto Respimat) lovastatin 40 mg tablet 40 mg PO HS 08/02/24 11/19/24 History gabapentin 300 mg capsule 300 mg PO Q12H #180 caps 08/29/24 11/19/24 Rx ferrous sulfate 325 mg (65 mg See Rx Instructions .Route 10/17/24 11/19/24 Rx iron) tablet (FeroSul) .COMPLEX #30 tabs sennosides 8.6 mg-docusate sodium 2 tab-cap (2 x 8.6-50 mg) PO BID 11/07/24 11/19/24 Rx 50 mg tablet (Senokot-S) PRN Constipation #120 tabs fluticasone propionate 50 See Rx Instructions .Route 11/16/24 11/19/24 Rx mcg/actuation nasal .COMPLEX #48 grams spray,suspension metoprolol succinate 25 mg See Rx Instructions .Route 11/16/24 11/19/24 Rx tablet,extended release 24 hr .COMPLEX #90 tabs Allergies Allergy/AdvReac Type Severity Reaction Status Date / Time Penicillins Allergy Severe Anaphylaxis Verified 11/19/24 17:33 meperidine Allergy Intermediate Itching Verified 11/19/24 17:33 sulfamethoxazole (From Allergy Intermediate Mouth Verified 11/19/24 17:33 Bactrim) burning/redness trimethoprim (From Bactrim) Allergy Intermediate Mouth Verified 11/19/24 17:33 burning/redness mirtazapine AdvReac Mild Headache Verified 11/19/24 17:33 Vital Signs Vital Signs - 24 hr 11/19/24 17:26 11/19/24 18:26 11/19/24 18:30 Temperature 98.2 F Pulse Rate 115 H 107 H Respiratory Rate 24 H 15 Blood Pressure 112/98 H Pulse Oximetry 96 96 Oxygen Delivery Nasal Cannula Nasal Cannula Oxygen Flow Rate 2 2 11/19/24 19:30 11/19/24 20:45 11/19/24 21:00 Temperature Pulse Rate 129 H 114 H 114 H Respiratory Rate 32 H 32 H 25 H Blood Pressure Pulse Oximetry Oxygen Delivery Oxygen Flow Rate 11/19/24 21:15 11/19/24 21:30 11/19/24 21:45 Temperature Pulse Rate 111 H 110 H 109 H Respiratory Rate 25 H 26 H 26 H Blood Pressure Pulse Oximetry 99 100 Oxygen Delivery Oxygen Flow Rate 11/19/24 22:00 11/19/24 22:23 11/19/24 22:24 Temperature Pulse Rate 116 H 102 H Respiratory Rate 26 H 24 H Blood Pressure 104/58 L Pulse Oximetry 97 96 97 Oxygen Delivery Oxygen Flow Rate 2 11/19/24 22:47 11/20/24 00:17 Temperature 98.3 F Pulse Rate 104 H 90 Respiratory Rate 18 18 Blood Pressure 106/55 L 113/50 L Pulse Oximetry 98 99 Oxygen Delivery Oxygen Flow Rate Exam Narrative: Weight 41.1 kg BMI 14.2 Const: Other: Cachectic, chronically ill-appearing, appears older than stated age, frail HENMT: Other: Temporal wasting, mucous membranes are tacky, posterior oral pharyngeal erythema noted, upper and lower dentures in place Eyes: Other: Pupils are equal and reactive, positive conjunctival pallor, no scleral icterus Neck: Other: No JVD, no lymphadenopathy Resp: Other: Coarse crackles left upper and middle lung hill posteriorly, frequent cough, no accessory muscle use, no tachypnea Cardio: Other: Regular rate, regular rhythm, no murmur, no JVD, 2+ bilateral radial and pedal pulses GI: Other: Soft, nontender, nondistended, normoactive bowel sounds Back/Spine/Pelvis: Other: Mild thoracic kyphosis Skin: Other: Generalized pallor, non jaundice Neuro: Other: Alert oriented x4, speech is clear, no facial asymmetry, no localizing neurologic deficits noted during the course of conversation Extrem: Other: No cyanosis, no edema Psych: Other: Appropriate mood and affect, pleasant and cooperative, judgment and insight intact H&P: Results Labs Labs: Laboratory Tests 11/19/24 18:48 11/19/24 18:48 11/19/24 11/19/24 11/19/24 18:23 18:47 18:48 WBC 9.4 RBC 3.28 L Hgb 9.7 L Hct 30.8 L MCV 93.9 MCH 29.6 MCHC 31.5 L RDW 12.1 Plt Count 269 MPV 9.5 Immature Gran % (Auto) 0.4 Neut % (Auto) 84.0 H Lymph % (Auto) 7.1 L [place] % (Auto) 6.1 Eos % (Auto) 2.2 Baso % (Auto) 0.2 Lymph # (Auto) 0.67 L [place] # (Auto) 0.6 Eos # (Auto) 0.2 Baso # (Auto) 0.0 Abs Immat Gran (auto) 0.04 H Absolute Neuts (auto) 7.9 H Absolute Nucleated RBC 0.000 Nucleated RBC % 0.0 PT 15.0 H INR 1.2 APTT 39.4 H Puncture Site Left radial ABG pH 7.459 H ABG pCO2 41.9 ABG pO2 73.1 L ABG PO2/FiO2 Ratio 2.61 ABG HCO3 29.1 H ABG O2 Saturation 95.4 ABG O2 Content 18.4 ABG Base Excess 4.7 A-a Gradient 77.1 Oxyhemoglobin 94.6 Total Hemoglobin 13.8 O2 Delivery Device Nasal cannula O2 Liters/Min 2.0 FiO2 28 Sodium 133 L Potassium 3.9 Chloride 95 L Carbon Dioxide 32 H Anion Gap 6 BUN 8 D Creatinine 0.55 L Estim Creat Clear Calc 51 Estimated GFR > 60 Glucose 104 Lactic Acid 1.2 Calcium 9.5 Magnesium 1.8 Total Bilirubin 0.2 AST 43 H ALT 22 Alkaline Phosphatase 121 Troponin I < 0.012 Total Protein 6.8 Albumin 3.1 L Procalcitonin 0.2 Urine Color Urine Appearance Urine pH Ur Specific [place] Urine Protein Urine Glucose (UA) Urine Ketones Ur Blood (Man) Urine Nitrate Urine Bilirubin Urine Urobilinogen Add Ur Microanalysis Leukocyte Esterase Rfl Urine RBC Urine WBC Ur Squamous Epith Cells Calcium Oxalate Crystal Urine Bacteria Urine Casts Nasal MRSA (PCR) Influenza A (RT-PCR) Influenza B (RT-PCR) RSV (RT-PCR) SARS-CoV-2 RNA (RT-PCR) 11/19/24 11/19/24 20:32 22:02 WBC RBC Hgb Hct MCV MCH MCHC RDW Plt Count MPV Immature Gran % (Auto) Neut % (Auto) Lymph % (Auto) [place] % (Auto) Eos % (Auto) Baso % (Auto) Lymph # (Auto) [place] # (Auto) Eos # (Auto) Baso # (Auto) Abs Immat Gran (auto) Absolute Neuts (auto) Absolute Nucleated RBC Nucleated RBC % PT INR APTT Puncture Site ABG pH ABG pCO2 ABG pO2 ABG PO2/FiO2 Ratio ABG HCO3 ABG O2 Saturation ABG O2 Content ABG Base Excess A-a Gradient Oxyhemoglobin Total Hemoglobin O2 Delivery Device O2 Liters/Min FiO2 Sodium Potassium Chloride Carbon Dioxide Anion Gap BUN Creatinine Estim Creat Clear Calc Estimated GFR Glucose Lactic Acid Calcium Magnesium Total Bilirubin AST ALT Alkaline Phosphatase Troponin I Total Protein Albumin Procalcitonin Urine Color Yellow Urine Appearance Clear Urine pH 6.5 Ur Specific [place] 1.007 Urine Protein Negative Urine Glucose (UA) Negative Urine Ketones Negative Ur Blood (Man) 1+ H Urine Nitrate Negative Urine Bilirubin Negative Urine Urobilinogen 0.2 Add Ur Microanalysis Reviewed Leukocyte Esterase Rfl Trace H Urine RBC 0-2 Urine WBC 0-5 Ur Squamous Epith Cells None seen Calcium Oxalate Crystal Present Urine Bacteria None seen Urine Casts 0-2 Nasal MRSA (PCR) Not detected Influenza A (RT-PCR) Negative Influenza B (RT-PCR) Negative RSV (RT-PCR) Negative SARS-CoV-2 RNA (RT-PCR) Negative Impressions Chest X-Ray 11/19/24 18:15 Impression: Marked worsening of right upper lobe pneumonia/consolidation. Underlying COPD. Chest CTA 11/19/24 20:19 Impression: Significantly worsened right upper lobe consolidation, compatible with worsening pneumonia. Element of underlying atelectasis or neoplastic disease cannot be excluded. Question where is necrotic change versus bronchiectasis within the areas of consolidation. Underlying advanced COPD/emphysema. Partially imaged probable splenomegaly. No pulmonary embolus, aortic aneurysm, or aortic dissection. EKG: Sinus tachycardia rate 111 QTC 434 All imaging and EKGs personally reviewed and interpreted. And unless stated otherwise agree with radiologic and cardiology interpretation. Assessment and Plan Assessment and plan (1) Persistent pneumonia: Code(s): J18.9 - Pneumonia, unspecified organism Status: Acute (2) COPD (chronic obstructive pulmonary disease): Qualifiers: COPD type: COPD with acute lower respiratory infection Qualified Code(s): J44.0 - Chronic obstructive pulmonary disease with (acute) lower respiratory infection Code(s): J44.9 - Chronic obstructive pulmonary disease, unspecified Status: Acute (3) Chronic respiratory failure with hypoxia and hypercapnia: Code(s): J96.11 - Chronic respiratory failure with hypoxia; J96.12 - Chronic respiratory failure with hypercapnia Status: Acute (4) Acute respiratory alkalosis: Code(s): E87.3 - Alkalosis Status: Acute (5) Hepatocellular carcinoma determined by biopsy of liver: Code(s): C22.0 - Liver cell carcinoma Status: Acute (6) Diarrhea: Qualifiers: Diarrhea type: unspecified type Qualified Code(s): R19.7 - Diarrhea, unspecified Code(s): R19.7 - Diarrhea, unspecified Status: Acute (7) Acute hyponatremia: Code(s): E87.1 - Hypo-osmolality and hyponatremia Status: Acute (8) Pulmonary cachexia due to chronic obstructive pulmonary disease: Code(s): R64 - Cachexia; J44.9 - Chronic obstructive pulmonary disease, unspecified Status: Acute (9) Severe protein-calorie malnutrition: Code(s): E43 - Unspecified severe protein-calorie malnutrition Status: Acute (10) History of tobacco abuse: Code(s): Z87.891 - Personal history of nicotine dependence Status: Acute Plan Patient presented back to the hospital with worsening cough and shortness of breath in the setting of chronic hypoxic hypercapnic respiratory failure and COPD with recent pneumonia. Patient imaging demonstrates worsening infiltrate compared to prior imaging despite completing antibiotic therapy with standard coverage for community-acquired pneumonia. The patient has had persistent pneumonia findings and concern for possible underlying malignancy is still not completely ruled out even with recent PET scan given poor FDG uptake of her hepatocellular carcinoma on PET scan. However given significant worsening in imaging I feel safer to broaden the patient's antibiotic coverage from typical community-acquired coverage up to cefepime and vancomycin. Blood cultures have been obtained and are pending. Will place patient on scheduled nebulizer treatments. She is stable on her home O2 and actually has acute respiratory alkalosis off setting her chronic hypercapnic respiratory failure. Her pCO2 is actually normal at 41 compared to her baseline values of upper 40s to [address] patient on scheduled DuoNeb treatments. Sputum culture and Gram stain have been ordered. Will also check urine Legionella and pneumococcal antigen as well as mycoplasma PCR. Will consult pulmonology for further recommendations. Will check CBC in a.m.. Patient has been having diarrhea since her last hospitalization. Will check C diff PCR to rule out infectious colitis. Patient does have some acute hyponatremia. There may be some component of mild volume depletion given recent diarrhea. Patient did receive 30 mL/kilos fluid bolus in the ER. Will repeat electrolyte panel in a.m. and decide on further fluid administration depending on results. Patient has chronic cachexia likely due to a combination of pulmonary cachexia and protein calorie malnutrition. Her weight is stable compared to last hospitalization. Will check calorie count and provide nutritional supplements. Congratulated the patient on continuing her tobacco cessation efforts. She reports she has not smoked since August. MEDICAL DECISION MAKING NARRATIVE -Spoke with the ED provider in detail regarding patient's evaluation, workup and management -Patient seen and examined at bedside -Collaborated with patient's nurse at the bedside in detail and addressed all concerns -Labs, electrolytes, radiology, investigations and test results reviewed -ED/Consult/Nursing/Ancilliary notes on the chart reviewed and appreciated -Spoke with patient plan was discussed and all questions were answered. Quality VTE Prophylaxis VTE prophylaxis: pharmacologic ordered (Heparin 5000 units subQ q.12h.) Hospitalist MIPS Advance Care Plan I have confirmed that the patient's Advanced Care Plan is present, code status is documented, or surrogate decision maker is listed in patient medical record.: Yes Medication Reconciliation I have utilized all available resources to obtain, update and review the patients current medications (includes all prescriptions, OTC, herbals, cannabis, and nutritional supplements).: Yes
[2024-11-20] MEDS: IPRATROPIUM 0.5 MG/ALBUTEROL SULFATE 2.5 MG AMPUL.NEB 3 ML INHALATION ×4 (02:43→20:11)
[2024-11-20 04:20] LABS: Estimated CRCL calculation 57 ml/min; Estimated Glomerular Filt Rate > 60
[2024-11-20] MEDS: SODIUM CHLOR 3% 15 ML NEB (RESPIRATORY THERAPY) 6 ML INHALATION (04:57)
[2024-11-20 06:34] LABS: Toxigenic C. Diff NEGATIVE (NEGATIVE)
[2024-11-20] MEDS: UMECLIDINIUM/VILANTEROL 62.5-25 MCG ELLIPTA 1 PUFF INHALATION (07:24)
[2024-11-20] MEDS: CYCLOBENZAPRINE HCL 5 MG TABLET PO ×2 (09:14→20:33)
[2024-11-20] MEDS: ASPIRIN 81 MG ENTERIC TABLET PO (09:14)
[2024-11-20] MEDS: SENNA/DOCUSATE SODIUM TABLET 2 TAB PO (09:14)
[2024-11-20] MEDS: GABAPENTIN 300 MG CAPSULE PO ×2 (09:14→20:33)
[2024-11-20] MEDS: FERROUS SULFATE 325 MG TABLET DR BY MOUTH (09:14)
[2024-11-20] MEDS: guaiFENesin 12 HR 600 MG TABCR 1200 MG PO ×2 (09:14→20:33)
[2024-11-20] MEDS: CEFEPIME 2 GM in SODIUM CHLORIDE 0.9% IV 50 ML 100 ML IVPB ×2 (09:15→22:08)
[2024-11-20] MEDS: METOPROLOL SUCCINATE EXT REL 25 MG TABCR PO (09:15)
[2024-11-20] MEDS: LORATADINE 10 MG TABLET PO (09:15)
[2024-11-20] MEDS: PANTOPRAZOLE 40 MG TABLET PO ×2 (09:15→20:33)
[2024-11-20] MEDS: oxyCODONE HCL (*CRX) 10 MG TAB SR 12HR PO ×2 (09:15→20:33)
[2024-11-20] MEDS: CHOLECALCIFEROL (VITAMIN D3) 125 MCG (5,000 UNITS) TABLET PO (09:20)
[2024-11-20] MEDS: SALINE 0.65% NAS SOLN 44 ML BTL 1 SPRAY NASAL ×2 (11:10→16:30)
[2024-11-20] MEDS: FLUTICASONE PROPIONATE 0.05% NA SPR 16 GM BTL (*BKC) 1 SPRAY NASAL ×2 (11:10→20:32)
--- NOTE | 2024-11-20 14:06 | PM.CNPUL ---
Assessment and Plan Assessment and plan (1) Right upper lobe pneumonia: Code(s): J18.9 - Pneumonia, unspecified organism Status: Acute Assessment and Plan: She has significant worsening of RUL infiltrate since admission in early November. This area is much more consolidated. I showed the patient and her [address] scans comparing November 01 and November 19. It is not clear if this is progression of the same process or if she improved then worsened since early November. I saw her near the time of discharge, and she felt and looked better. She may have mucus plugging, less likely something in an airway. We will start with pulmonary hygiene measures and antibiotics, Vanco and Ceftriaxone. She has recurrent pneumonias. * 09/01/24 modified barium swallow; Trace penetration without aspiration. (2) Chronic respiratory failure with hypoxia: Code(s): J96.11 - Chronic respiratory failure with hypoxia Status: Acute Assessment and Plan: Long time use of O2 at home, long standing hypercapnia and hypoxemia however no hypercapnia this admission; this may reflect increased respiratory alkalosis with acute drop in hypercapnia. (3) COPD (chronic obstructive pulmonary disease): Qualifiers: COPD type: unspecified COPD Qualified Code(s): J44.9 - Chronic obstructive pulmonary disease, unspecified Code(s): J44.9 - Chronic obstructive pulmonary disease, unspecified Status: Acute Assessment and Plan: Long standing, advanced, on standard treatment at home, which will continue here with additional treatment for acute worsening due to pneumonia. (4) Oxygen dependent: Code(s): Z99.81 - Dependence on supplemental oxygen Status: Acute Assessment and Plan: Long stnading, O2 need stable at 2 L/min. (5) ILD (interstitial lung disease): Code(s): J84.9 - Interstitial pulmonary disease, unspecified Status: Acute Assessment and Plan: She had minimal evidence of interstitial lung disease dating back to at least 2018 and she has rheumatoid arthritis so her ILD is related to her autoimmune condition. (6) Pulmonary cachexia due to chronic obstructive pulmonary disease: Code(s): R64 - Cachexia; J44.9 - Chronic obstructive pulmonary disease, unspecified Status: Acute Assessment and Plan: She has pulmonary cachexia due to chronic obstructive pulmonary disease as well as interstitial lung disease. She has not smoked since her last admission, early November. Last admission, we provided supplemental protein shakes. (7) History of tobacco abuse: Code(s): Z87.891 - Personal history of nicotine dependence Status: Acute Assessment and Plan: Quit at the last admission. (8) Acute on chronic respiratory failure: Qualifiers: Respiratory failure complication: hypoxia and hypercapnia Qualified Code(s): J96.21 - Acute and chronic respiratory failure with hypoxia; J96.22 - Acute and chronic respiratory failure with hypercapnia Code(s): J96.20 - Acute and chronic respiratory failure, unspecified whether with hypoxia or hypercapnia Status: Resolved Assessment and Plan: She is only only requires oxygen 2 L with exertion and with sleep, this admission required oxygen at rest 2-3 liters/minute. This is due to her acute illness. She has had hypercapnia dating back to 07/07/2019, her highest pCO2 on a blood gas was this past September,September 05, 2024 with a pCO2 of 70.7. She uses oxygen at home 2 L a minute at night. Will wean her oxygen as tolerated and perform a home oxygen evaluation prior to her discharge. (9) Cavitary lesion of lung: Code(s): J98.4 - Other disorders of lung Status: Acute Assessment and Plan: She has had an evolving right upper lobe scar/density over the last several CT scans now with a cavity. I looked at her CT scans from August 31 2024, CTA, October 21 and November 01. The overall lesion is larger and more cavitary. The differential includes malignancy, fungal, non tuberculous and tuberculous mycobacteria, autoimmune, she has Raynaud's an a diagnosis of RA which can cause cavitary lung nodules. In general these resolved on their own without treatment. The patient has been treated for pneumonia multiple times in the last few months. Plan plan: Improve pulmonary hygiene of the right upper lobe which is densely consolidated. I am adding a PEP valve and a vibratory vest both to be used t.i.d. to help move secretions. She will continue to bronchodilator therapy, mucolytics. She requested her pain medication to be re-initiated, Dr. Man has already re-started her oxycodone which is prescribed by her by pain management. If her RUL does not open, it is possible she may need a bronchoscopy, however probably can be avoided. Procalcitonin; if high, this will suggest that she has an infectious cause for her RUL process. History of Present Illness History of Present Illness Consult date: 11/20/24 Requesting physician: Ivelisse Man DO Chief complaint: Acute & chronic hypoxic respiratory failure, Pneum Narrative: Patient was seen November 20, 2024 at 14:00; Room 232, 3 family members present, 2 sisters from out of town and Loulou who lives in [place]. NEW: Melyssa Mccall is 69 years old, was recently in the hospital with acute on chronic respiratory failure in the right upper lobe infiltrate. She was admitted from November 01 through November 07 feeling much better, less short of breath. She had a liver biopsy for a mass, was diagnosed with hepatocellular carcinoma from the biopsy. Results came back after she went home. I saw her at the time of discharge and she did look stable. She was much less short of breath. She tells me that she never completely returned to baseline. She has had a week of fever, chills, with coughing unable to expectorate secretions. She has also had frequent diarrhea about once every 4 hours, no blood in her stools. She has been eating normally. She complains of congestion especially in the right nostril with scant blood from the right nostril. DATA * 11/19/24 CTA; : 11/01/2024 Findings: There is no evidence of any significant mediastinal, hilar or axillary lymphadenopathy. There is no filling defect in the pulmonary arterial tree to suggest pulmonary embolus. There is no evidence of aortic dissection or aneurysm. There is no evidence of pleural or pericardial effusion. There is much more extensive and dense right upper lobe consolidation as compared to prior exam, compatible significant worsening of pneumonia. Elevated atelectasis or underlying neoplasm cannot be excluded. Questionable areas of necrotic change versus bronchiectasis within the areas of consolidation. There is underlying advanced COPD/emphysema with bibasilar mild interstitial prominence. Images through the upper abdomen reveal probable partially imaged splenomegaly. Impression: Significantly worsened right upper lobe consolidation, compatible with worsening pneumonia. Element of underlying atelectasis or neoplastic disease cannot be excluded. Question where is necrotic change versus bronchiectasis within the areas of consolidation. Underlying advanced COPD/emphysema. Partially imaged probable splenomegaly. No pulmonary embolus, aortic aneurysm, or aortic dissection. * 11/15/24; PET; Biopsied mass in the right hepatic lobe essentially indiscernible on both the noncontrast CT images as well as on PET imaging indicating a relatively low degree of FDG uptake which would decrease sensitivity for assessment for metastatic disease. 2. Multifocal pneumonia the right lung with consolidation and large portion of the right upper lobe. 3. Multiple mildly FDG avid right hilar and mediastinal lymph nodes which given distribution are likely reactive related to the pneumonia in the right lung. These are difficult to image on the noncontrast CT images and would consider 3 month follow-up with contrast-enhanced chest CT. 4. Diffuse mild marrow uptake most likely physiologic given the absence of associated lytic or blastic bone lesions. Prior admissions; November 01, 2024; new consult; Melyssa Mccall is a 69-year old woman followed in our practice most recent visit was 10/06/2024, she has recurrent pneumonias, hypertension, hyperlipidemia, SVT, the esophageal ring status post dilation, chronic sinusitis, COPD on home oxygen, chronic hypercapnic hypoxemic respiratory failure. She was in the hospital August 31 through September 07, has been on Levaquin and other antibiotics as an outpatient recently; she saw Dr. Newman in follow-up on October 06 and afterwards had a PFT showing a severe obstructive abnormality, hyperinflation severely decreased diffusion. Her 6 minute walk showed that she did not require supplemental oxygen at rest she does require 2 L a minute with exertion. She says that at home she felt like she just could not catch her breath. She was sweating, coughing and with each intense cough, she had pain initially in the right posterior chest and then it wraps around to the right anterior chest. She cannot expectorate her secretions very easily. Her last cigarette was 2 days prior to admission. She complains of crusting in her nose and scant bleeding from the nose. This may be due to nasal cannula O2. She does not have hemoptysis. She has lost from 137 lb to 90 lb over the last 3 years. She has diffuse aches and pains. She has had no GI symptoms, nose specific sinus complaints, no sore throat or earache. Her saturation on admission is 99% on 2 liters/minute. November 02, 2024; She had the liver biopsy, ready to eat, she feels better, less coughing. She is interested in quitting smoking, and agreed to a nicotine patch. Now on 2 L, sat is 94-97%. November 04, 2024; on 2 L saturation is 95-99%. She feels better compared to admission, not as short of breath, coughing resolved. Liver biopsy results still pending. DATA * sodium 136, potassium 4.0, chloride 98, carbon dioxide 33, BUN 14, , creatinine 0.52, glucose 111k, white blood cell count 7.2 k with 76% awga, hemoglobin 13.1 grams/deciliter, hematocrit 41.1%, platelets 202k, 3 flat troponins, serology negative for influenza A, B, RSV and SARS-CoV-2 * 11/01/[address] = She has a 2.7 cm hepatic lesion. No evidence of pulmonary embolus, aortic dissection, or aortic aneurysm. Significant worsening of patchy airspace consolidation and interstitial thickening overload, compatible significant worsening of pneumonia. Central right upper lobe airspace opacity with cavitary or cystic change is again present, which could reflect underlying neoplastic disease or treated disease versus pneumonia. Severe emphysema. document embedded image Since she was last admitted, she had a PFT & 6MW; * 10/21/24 PFT; severe obstructive abnormality, no change after albuterol; increased RV consistent with hyperinflation from an obstructive abnormality. The diffusing capacity unadjusted for hemoglobin and carboxyhemoglobin is severely decreased and remains severely decreased when adjusted for alveolar volume. In comparison to previous pulmonary function testing on 12/14/2019 there has been a greater than anticipated time dependent decrease in the FVC, FEV1 and diffusing capacity. There has been a greater than anticipated time dependent increase in the functional residual capacity and residual volume with no significant change in the total lung capacity. Clinical correlation is recommended. * 10/21/24 6MW; patient did not require supplemental oxygen at rest, require 2 L with exertion. = = = = = = = = = = = HISTORY = = = = = = = = = = = HISTORY = = = = = = = = = = = 10/27/24 phone call, Dr Newman spoke with the patient. We reviewed her CT scan results, PFT results and 6 minute walk test results. I informed her that she needs no oxygen at rest and 2 L with activity, her PFTs show a severe obstructive abnormality which is worse since 12/14/[address] scan shows worsening right upper lobe mass consistent with atelectasis, mucus or pneumonia. She continues to smoke 10-15 cigarettes a day. I have told her her disease is continuing to progress and that is absolutely necessary for her to quit. She will try to use nicotine patches and behavior modification. She does not wish for Chantix. Patient has 2-3 days of feeling hot and cold, increased mucus production worsening shortness of breath. She is not wheezing. She has no in known exposures to COVID or other sick people. the patient just finished Flagyl and Levaquin about 09/14/2024. The patient has responded to azithromycin in the past And I prescribed a Z-Pasquale. I told the patient to call us if she did not clinically improve. She voiced understanding. 10/21/24; Chest CT without Contrast: Clinical Indication: COPD Technique: Contiguous sections were acquired throughout the chest without intravenous contrast. Dose reduction technique was used on this scan by utilizing automated exposure control and iterative reconstruction technique. The dose-length product (DLP) was 140.62 mGy-cm. COMPARISON: 08/31/2024 Findings: There is no evidence of any significant mediastinal, hilar or axillary lymphadenopathy. There are extensive atherosclerotic calcifications of the aorta and coronary arteries. There is no evidence of pleural or pericardial effusion. Chronic biapical scarring and calcification noted. There is severe emphysema. Irregular consolidation with cystic or cavitary change in the right upper lobe is probably minimally increased in extent from prior exam. Images through the upper abdomen reveal no abnormalities. Impression: Irregular right upper lobe consolidation with cystic or cavitary changes, mildly increased in extent from prior exam. This is compatible with persistent and mildly worsening pneumonia. Underlying neoplastic disease not completely excluded. Severe emphysema stable biapical scarring and pleural calcification the lung apices. 10/21/24: This is a pulmonary function test with pre and post-bronchodilator spirometry, plethysmography and diffusing capacity. The test was performed and results interpreted in accordance with the 2019 and 2005 ATS/ERS Task Force guidelines respectively using the Global Lung Function Initiative-2012 reference equations. Patient demonstrated good effort and cooperation. Reproducibility criteria were met. The quality of the pre bronchodilator spirometry maneuver was Grade A and post bronchodilator spirometry maneuver was Grade A. Of note, patient was very lethargic during the testing and had to wake herself up numerous times. Findings: Spirometry: There is decreased maximal expiratory airflow at all lung volumes with concave expiratory flow tracing. The contour the inspiratory flow tracing is normal. The pre bronchodilator FVC is 2.53 L, 81% predicted. The pre bronchodilator FEV1 is 0.85 L, 36% predicted. The pre bronchodilator FEV1: FVC ratio is 34%. The post bronchodilator FVC is 2.46 L, representing a 3% decrease. The post bronchodilator FEV1 is 0.88 L, representing a 4% increase. The post bronchodilator FEV1: FVC ratio is 36%. Plethysmography: The total lung capacity is 6.36 L, 116% predicted. The functional residual capacity is 5.05 L, 160% predicted. The residual volume is 3.75 L, 159% predicted. The residual volume: Total lung capacity ratio is 59%. Diffusing capacity: The diffusing capacity unadjusted for hemoglobin and carboxyhemoglobin is 4.2, 19% predicted. The diffusing capacity adjusted for alveolar volume is 1.23, 30% predicted. In comparison to previous pulmonary function testing on 12/14/2019 the post bronchodilator FVC has decreased from 3.45 L to 2.46 L. The post bronchodilator FEV1 is decreased from 1.69 L to 0.88 L. The total lung capacity is unchanged from 6.05 L to 6.36 L. The functional residual capacity is increased from 3.94 L to 5.05 L. The residual volume has increased from 2.92 L to 3.75 L. The diffusing capacity unadjusted for hemoglobin and carboxyhemoglobin is decreased from 6.7 to 4.2. The diffusing capacity adjusted for alveolar volume has decreased from 1.50 to 1.23. Impression: There is a severe obstructive abnormality. There is no significant improvement after inhaling a single dose of albuterol. The increase in residual volume to total lung volume ratio is consistent with hyperinflation from an obstructive abnormality. The diffusing capacity unadjusted for hemoglobin and carboxyhemoglobin is severely decreased and remains severely decreased when adjusted for alveolar volume. In comparison to previous pulmonary function testing on 12/14/2019 there has been a greater than anticipated time dependent decrease in the FVC, FEV1 and diffusing capacity. There has been a greater than anticipated time dependent increase in the functional residual capacity and residual volume with no significant change in the total lung capacity. Clinical correlation is recommended. 10/21/24: This is a 6 minute walk test. The test was performed and interpreted in accordance with the 2014 ERS/ATS task force guidelines. Of note, patient use 2 liters/minute with activity and used a walker for stability Findings: The patient's resting room air oxygen saturation measured by pulse oximetry was 96%, the heart rate was 94 bpm, and the modified Naomi dyspnea score was 0. Patient ambulated using 2 L nasal cannula for 244 meters and oxygen saturation remained 92 to 93%. At the end of the study the heart rate was 100 bpm and the modified Naomi dyspnea score was 2. The patient did not have desaturations at rest on room air and did not have desaturations with ambulation on 2 L nasal cannula.. There are no prior studies for comparison. Collectively this demonstrates she has a severe obstructive abnormality consistent with GOLD grade 3 COPD, with hyperinflation and a severely decreased DLCO and compared to 12/14/2019 there has been significant decrease in the FVC, FEV1 and diffusing capacity with a significant increase in the functional residual capacity and residual volume all consistent with worsening COPD. The patient continues to smoke. The patient needs no oxygen at rest, 2 L with activity. 10/21/[address] scan of the chest from 12/08/2023, 08/02/2024, 08/31/2024 and 10/21/2024 with the radiologist. she has worsening right upper lobe low-attenuation lung nodule consistent with atelectasis, mucous retention or pneumonia in area was previous severe panlobular emphysema. Given the appearance and I rapidity of these changes it is very unlikely that this is cancer. I called the patient to discuss these results with her and left a voice message for her to call the clinic. 10/06/2024: This is the 1st pulmonary clinic encounter following inpatient hospital consultation for COPD with hypercarbic respiratory failure discharged on BiPAP. 69-year-old with a history of hypertension, hyperlipidemia, SVT, the esophageal ring status post dilation, chronic sinusitis, GOLD grade 2 group E COPD on home oxygen and NIV. Patient admitted to [facility] from 08/31/2024 through 09/07/2024 for COPD and pneumonia with hypercarbic respiratory failure. ABG on 08/02/2024 of 7.45/60/128 on 2 L nasal cannula and a blood gas on 09/06/2023 of 7.34/71/ 63 on 2 L nasal cannula. Patient was treated for COPD and pneumonia with Levaquin, Flagyl, DuoNebs and guaifenesin. For her hypercarbic respiratory failure she had [facility] insurance and was approved for BiPAP no rate, IPAP 9, EPAP 4 in 2 L bleed in. This provided adequate oxygenation by overnight oximetry and ABG at the end of the night of 7.40/52/64. She was discharged on Levaquin for 7 days, Flagyl for 5 days, Stiolto Respimat and rescue albuterol. She was to continue guaifenesin 600 p.o. b.i.d., Cornet flutter valve and home O2 assessment demonstrated she required 2 L at rest and 2 L with activity. Plan was for follow-up in the Pulmonary Clinic in 4 weeks for compliance check and to reassess her for CT scan to follow her right upper lobe infiltrate. 09/20/2024: EGD esophagitis was normal. Nonobstructing ring with dilatation. 09/29/2024: PCP office visit note. 2 L nasal cannula saturation 93%. Weight 90 lb. Respiratory medicines include guaifenesin 600 mg p.o. q.12 hours. Albuterol inhaler p.r.n., albuterol nebulizer p.r.n., Stiolto Respimat, Flonase nasal spray 1 b.i.d. p.r.n. Today she tells me that She has had no hospitalizations or exacerbations since discharge on 09/07/2024. Overall the patient has done good. For the last week she has felt well and back close to her normal. She says she is breathing at 95% back to her normal and she is walking more. She says 1 year ago she could walk 4 blocks. Before she got sick she could walk 2 blocks and since leaving the hospital she has gotten stronger and can now walk 1 block. Her appetite has improved and she has gained 1 lb at home. Her weight today is 88.5. The patient is using Stiolto Respimat at 2 puffs q.a.m., rescue albuterol inhaler 1 time a day. Rescue albuterol nebulizer 1 time a day. Guaifenesin 1200 mg p.o. b.i.d.. Flonase 1 spray each nostril once a day. Claritin p.r.n.. She says her sinuses are controlled. as prescribed, the patient is wearing 2 L at oxygen at rest with saturations 92%. The patient is using 2 L with activity with saturations ranging 66-90%. She is using 2 L bleed in at night. The patient continues to smoke and she smoked 5 cigarettes yesterday. she has quit previously and tells me she will quit again. She has nicotine patches at home and will use ease. The patient is taking THC gummies. Patient's CAT score today is 19. The patient is wearing her BiPAP with an over the mouth under the nose mask with 2 L bleed in. the patient tells me she wore the mask more faithfully and said that this did help her during the day and she felt as if she could take deeper breaths. She has had some family stressors and has not worn the machine over the last week or so. Download from [employer], and [employer], 09/04/2024 through 10/03/2024: BiPAP no rate. Inspiratory pressure 9, expiratory pressure 4. Total usage days 53%. Usage days greater than or equal to 4 hours was 40%. Average usage on days used 5 hours and 25 minutes. AHI 0.5. Apnea index 0.4, hypopnea index 0.1. Central apnea index 0.1. Median leak 0.6. Ninety-fifth percentile leak 10.9. Maximal leak 35.8. Median tidal volume 446. Median respiratory rate 17. Median minute ventilation 7.7. I interpret this download as poor compliance, adequate pressures and low leak. Of note, no usage after 09/26/2024. DATA: 09/07/2024: Home O2 assessment: Rest room air saturation 86%. Rest nasal cannula 1 L saturation 88%. Rest nasal cannula 2 L saturation 91%. Exercise nasal cannula 2 L saturation 90%. Patient requires 2 L with rest and 2 L with activity. 09/07/24: Patient wore her home BiPAP no rate, IPAP 9, EPAP 4 and 2 L bleed in with an over the mouth under the nose mask. She said she wore the mask for 6-1/2 hours and slept well and feels refreshed this morning. Overnight oximetry on these settings with recording duration of 6 hours and 52 minutes, average saturation 92%. Low saturation 87%. Time with saturation less than or equal to 88% was 3 minutes. Oxygen desaturation index 0.6. Patient had ABG at the end of the night on these settings with a pH of 7.40/52/64. 08/31/24: EXAMINATION: CTA chest PE protocol DATE: 08/31/2024 11:02 INDICATION: Shortness of breath TECHNIQUE: Computed tomography (CT) pulmonary angiogram of the chest was performed with 100 mL Omnipaque-350 intravenous contrast. Additional 3D reconstructions utilizing coronal maximum intensity projection (MIP) were performed. Automated exposure control and iterative reconstruction technique were employed. The dose-length product was 151.66 mGy-cm. COMPARISON: 08/02/2024 and 12/08/2023 FINDINGS: No pulmonary embolism. Severe emphysema with chronic partially calcified by apical pleural-parenchymal scarring. There is been some progression of low-attenuation fluid/mucus within several of the cystic airspace in the right upper lobe which are new since 12/08/2023 consistent with pneumonia. Unchanged chronic reticulonodular opacities with a few small calcified nodules in the basilar right middle lobe and lingula consistent with sequela of chronic pneumonia. No pleural effusion. Heart size is normal. Atherosclerotic coronary artery calcific lesion. No pericardial effusion. Thoracic aorta is normal in caliber. No pathologically enlarged thoracic lymphadenopathy. 1 cm cyst and 13 x 5 x 3 mm nonobstructing stone at the upper pole the left kidney. There is scattered cortical scarring in the right kidney consistent with sequela of prior infection or infarction. Additional 2 mm nonobstructing stone at the lower pole of the right kidney. Mild thoracic spondylosis with chronic minimal anterior wedging of a few mid and lower thoracic vertebral bodies. Spinal stimulator leads which terminate at the posterior central canal at the level of T6-T7. IMPRESSION: 1. No pulmonary embolism. 2. Severe emphysema with right upper lobe pneumonia. 3. Bilateral nonobstructing nephrolithiasis. --------- 10/27/2022 EXAMINATION: CT lung screening INDICATION: Personal history of nicotine dependence, current smoker with 50 pack year history COMPARISON: 10/25/2021 FINDINGS: There is severe emphysema. There is a stable 5 mm nodule of the left upper lobe. There is stable 3 mm nodule of the right upper lobe. The lungs are free of acute opacities. No pleural effusion or pneumothorax. There is scarring and calcification of the lung apices. Calcified coronary artery atherosclerosis is noted. No pathologically enlarged thoracic lymph nodes are identified. The heart size is normal. There is mild thoracic spondylosis. IMPRESSION: 1. Lung-RADS category 2: Benign appearance or behavior. Continue annual screening with noncontrast low-dose chest CT in 12 months. 12/19/2019 PULMONARY FUNCTION TESTS Results are reliable and reproducible. Spirometry: FEV1 is 60%, moderately decreased, 1.49 L. FVC is 90% normal. Decreased FEV1% consistent with airflow obstruction. . There is a 14% increase in FEV1 with bronchodilator, 200 ml, which is significant. Lung volumes: Total lung capacity 107% normal. RV/TLC increased 48% and consistent with air trapping. Airway resistance increased 336%. Diffusion: DLCO moderately reduced 35%. Flow volume loop: Scooping of the expiratory limb. IMPRESSION: Moderate obstructive ventilatory impairment with good response to bronchodilator, air trapping, moderate diffusion impairment. This is consistent with COPD. 11/23/2019: Alpha 1 anti trypsin genotype MM. Alpha 1 anti trypsin level 160, normal. Review of Systems Review of Systems: She has had diarrhea without blood least every 4 hours for a week. She has been coughing often, abdomen hurts from excessive coughing. All systems reviewed & are unremarkable except as noted in HPI and below PMFSH Past Medical History Medical History (Updated 11/20/24 @ 02:16 by Ivelisse Man DO) Vitamin D deficiency B12 deficiency Mixed incontinence Liana esophagitis Peripheral neuropathy Raynaud disease OSWALD (iron deficiency anemia) Osteopenia RLS (restless legs syndrome) Chronic narcotic use On home O2 Chronic sinusitis Olecranon bursitis, left elbow PSVT (paroxysmal supraventricular tachycardia) Kidney stones Fibromyalgia Rheumatoid arthritis Constipation IBS (irritable bowel syndrome) GERD (gastroesophageal reflux disease) Lumbar radiculopathy Esophageal stricture Status post dilatation ILD (interstitial lung disease) Small amount of interstitial lung disease was seen on base of lungs on chest CT 03/25/2018 which was an abdomen and pelvis CT Essential hypertension Collagen vascular disease Hyperlipidemia, unspecified Anxiety 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, patient unsure of this diagnosis COPD (chronic obstructive pulmonary disease) With severe obstructive disease noted on recent PFTs October 2024 with significant decompensation compared to prior study Tobacco abuse Quit 08/2024 Surgical History Surgical History (Updated 11/20/24 @ 01:08 by Ivelisse Man DO) History of esophagogastroduodenoscopy (EGD) With history of esophageal dilatation of History of colonoscopy with polypectomy History of partial hysterectomy Status post insertion of spinal cord stimulator History of bladder suspension procedure History of appendectomy History of lumbar surgery Spinal cord stimulator implanted 05/23/21 Family History Family History Mother Patient's mother is , Onset Age: 72 Sibling Carcinoma of colon Ovarian cancer Lung cancer Rectal cancer Family history of malignant neoplasm of breast in first degree relative Father Brain aneurysm Cerebrovascular accident, Onset Age: 54 Other Arthritis COPD (chronic obstructive pulmonary disease) High cholesterol Hypertension Lung disease Neuropathy Social History Social History (Updated 11/20/24 @ 00:51 by Ivelisse Man DO) Social History: The patient reports that she has been since 2007 and lives alone. She has 1 son who lives in [place]. She quit smoking in August 2024 of months prior to that she smoked a pack of cigarettes per day for close to 60 years. She denies any significant alcohol use. Code status: DNR/DNI (she would be okay with pressors if needed for blood pressure support) Healthcare power of civil attorney: Cole (son) or Romi (friend) Smoking packs per day: 1 Smoking cigarettes per day: 20.0 Years smoked: 60 Smoking pack-years: 60.00 Smoking status: Former smoker Second hand tobacco smoke exposure: Yes Smoking end date: 08/02/24 Additional smoking assessment comments: Using Nicotine patches AT TIMES Alcohol intake: never Substance use: never Substance use type: does not use Do You Feel Safe in your Home?: Yes Lack of Transportation: No Lack of Food: Never True Current Housing: I Have Housing Concerned About Future Housing: No Difficulty Paying Gas/Electric Bills: No Difficulty Paying for Meds: No Currently Unemployed: No Education: Trade/Vocational Certificate Difficulty w/ Childcare or Family Care: No Living arrangements: alone Occupation/Education: retired Gender identity (if verbalized by the patient): Female Spiritual care concerns: No Meds Home Medications and Allergies Home Medications ?Medication ?Instructions ?Recorded ?Confirmed ?Type aspirin 81 mg tablet,delayed 81 mg PO DAILY 06/02/19 11/19/24 History release (Adult Aspirin Regimen) cyclobenzaprine 5 mg tablet 5 mg PO Q12H 01/05/20 11/19/24 History oxycodone myristate 13.5 mg 13.5 mg PO Q12H 11/19/21 11/19/24 History capsule sprinkle extend release 12hr(DON'T CRUSH) (Xtampza ER) solifenacin 10 mg tablet (Vesicare) 5 mg PO HS 02/04/23 11/19/24 History cholecalciferol (vitamin D3) 125 125 mcg PO DAILY 07/24/23 11/19/24 History mcg (5,000 unit) tablet (Vitamin D3) guaifenesin 600 mg tablet, 1,200 mg PO Q12H 07/24/23 11/19/24 History extended release 12 hr (Mucinex) loratadine 10 mg tablet 10 mg PO DAILY 07/24/23 11/19/24 History albuterol sulfate 90 mcg/actuation See Rx Instructions .Route 03/15/24 11/19/24 History aerosol inhaler .COMPLEX PRN Shortness Of Breath Or Wheezing omeprazole 40 mg capsule,delayed 40 mg PO DAILY #90 caps 06/02/24 11/19/24 Rx release albuterol sulfate 2.5 mg/3 mL 2.5 mg (3 mL) inhalation Q4-6H PRN 06/07/24 11/19/24 Rx (0.083 %) solution for nebulization shortness of breath or wheezing #180 mL tiotropium 2.5 mcg-olodaterol 2.5 See Rx Instructions .Route 06/20/24 11/19/24 Rx mcg/actuation mist for inhalation .COMPLEX #4 grams (Stiolto Respimat) lovastatin 40 mg tablet 40 mg PO HS 08/02/24 11/19/24 History gabapentin 300 mg capsule 300 mg PO Q12H #180 caps 08/29/24 11/19/24 Rx ferrous sulfate 325 mg (65 mg See Rx Instructions .Route 10/17/24 11/19/24 Rx iron) tablet (FeroSul) .COMPLEX #30 tabs sennosides 8.6 mg-docusate sodium 2 tab-cap (2 x 8.6-50 mg) PO BID 11/07/24 11/19/24 Rx 50 mg tablet (Senokot-S) PRN Constipation #120 tabs fluticasone propionate 50 See Rx Instructions .Route 11/16/24 11/19/24 Rx mcg/actuation nasal .COMPLEX #48 grams spray,suspension metoprolol succinate 25 mg See Rx Instructions .Route 11/16/24 11/19/24 Rx tablet,extended release 24 hr .COMPLEX #90 tabs Allergies Allergy/AdvReac Type Severity Reaction Status Date / Time Penicillins Allergy Severe Anaphylaxis Verified 11/19/24 17:33 meperidine Allergy Intermediate Itching Verified 11/19/24 17:33 sulfamethoxazole (From Allergy Intermediate Mouth Verified 11/19/24 17:33 Bactrim) burning/redness trimethoprim (From Bactrim) Allergy Intermediate Mouth Verified 11/19/24 17:33 burning/redness mirtazapine AdvReac Mild Headache Verified 11/19/24 17:33 Vital Signs Vital Signs - 24 hr 11/19/24 17:26 11/19/24 18:26 11/19/24 18:30 Temperature 36.8 C Pulse Rate 115 H 107 H Respiratory Rate 24 H 15 Blood Pressure 112/98 H Pulse Oximetry 96 96 Oxygen Delivery Nasal Cannula Nasal Cannula Oxygen Flow Rate 2 2 11/19/24 19:30 11/19/24 20:45 11/19/24 21:00 Temperature Pulse Rate 129 H 114 H 114 H Respiratory Rate 32 H 32 H 25 H Blood Pressure Pulse Oximetry Oxygen Delivery Oxygen Flow Rate 11/19/24 21:15 11/19/24 21:30 11/19/24 21:45 Temperature Pulse Rate 111 H 110 H 109 H Respiratory Rate 25 H 26 H 26 H Blood Pressure Pulse Oximetry 99 100 Oxygen Delivery Oxygen Flow Rate 11/19/24 22:00 11/19/24 22:23 11/19/24 22:24 Temperature Pulse Rate 116 H 102 H Respiratory Rate 26 H 24 H Blood Pressure 104/58 L Pulse Oximetry 97 96 97 Oxygen Delivery Oxygen Flow Rate 2 11/19/24 22:47 11/20/24 00:00 11/20/24 00:00 Temperature Pulse Rate 104 H 107 H Respiratory Rate 18 Blood Pressure 106/55 L Pulse Oximetry 98 95 Oxygen Delivery Nasal Cannula Oxygen Flow Rate 2 11/20/24 00:17 11/20/24 02:00 11/20/24 02:42 Temperature 36.8 C Pulse Rate 90 91 Respiratory Rate 18 Blood Pressure 113/50 L Pulse Oximetry 99 98 Oxygen Delivery Nasal Cannula Oxygen Flow Rate 2 11/20/24 02:49 11/20/24 02:55 11/20/24 04:00 Temperature Pulse Rate 93 94 91 Respiratory Rate 18 18 Blood Pressure Pulse Oximetry Oxygen Delivery Oxygen Flow Rate 11/20/24 04:00 11/20/24 04:54 11/20/24 04:57 Temperature 36.9 C Pulse Rate 104 H 101 H Respiratory Rate 22 H 22 H Blood Pressure 137/60 Pulse Oximetry 98 99 Oxygen Delivery Nasal Cannula Oxygen Flow Rate 2 11/20/24 05:09 11/20/24 06:00 11/20/24 07:26 Temperature Pulse Rate 103 H 89 Respiratory Rate 22 H Blood Pressure Pulse Oximetry 97 Oxygen Delivery Nasal Cannula Oxygen Flow Rate 2 11/20/24 07:26 11/20/24 07:39 11/20/24 07:52 Temperature 36.6 C Pulse Rate 87 92 92 Respiratory Rate 20 20 12 Blood Pressure 112/52 L Pulse Oximetry 97 Oxygen Delivery Oxygen Flow Rate 11/20/24 08:00 11/20/24 08:00 11/20/24 09:15 Temperature Pulse Rate 104 H 93 Respiratory Rate Blood Pressure Pulse Oximetry 93 Oxygen Delivery Nasal Cannula Oxygen Flow Rate 2 11/20/24 10:00 11/20/24 11:33 11/20/24 12:00 Temperature 36.8 C Pulse Rate 89 82 Respiratory Rate 16 Blood Pressure 99/52 L Pulse Oximetry 93 93 Oxygen Delivery Nasal Cannula Oxygen Flow Rate 2 11/20/24 12:00 11/20/24 13:22 11/20/24 13:30 Temperature Pulse Rate 92 86 97 Respiratory Rate 20 20 Blood Pressure Pulse Oximetry Oxygen Delivery Oxygen Flow Rate Exam Narrative: GEN: Alert, oriented, not in distress. She has nasal cannula O2 at 2 L with saturation 93%. Family at bedside. HEENT: pupils are equal, EOMI, symmetrical face; oral membranes dry, dentures, Mallampati II airway. Nares: dried blood both nares, right side is occluded, not patent with siffing. NECK: Trachea is midline CHEST: Equal air entry, symmetric excursion, decreased breath sounds on right upper lung field. No wheezing. CV: Regular S1S2 no m/g/r ABD : (+) bowel sounds Extremities : no clubbing, cyanosis, or edema. C PSYCH: normal thought and speech, gait is not tested Results Laboratory Findings 11/21/24 03:59 11/21/24 03:59 ABG, PT/INR, D-dimer: ABG ABG pH 7.459 (7.350-7.450) H 11/19/24 18:23 ABG pCO2 41.9 mmHg (35.0-45.0) 11/19/24 18:23 ABG pO2 73.1 mmHg (80.0-100.0) L 11/19/24 18:23 ABG O2 Saturation 95.4 % (95.0-100.0) 11/19/24 18:23 PT/INR, D-dimer PT 15.0 Seconds (11.1-14.7) H 11/19/24 18:48 INR 1.2 11/19/24 18:48 Abnormal lab findings: Abnormal Labs 11/19/24 11/19/24 11/19/24 18:23 18:48 20:32 RBC 3.28 L Hgb 9.7 L Hct 30.8 L MCHC 31.5 L Neut % (Auto) 84.0 H Lymph % (Auto) 7.1 L Lymph # (Auto) 0.67 L Abs Immat Gran (auto) 0.04 H Absolute Neuts (auto) 7.9 H PT 15.0 H APTT 39.4 H ABG pH 7.459 H ABG pO2 73.1 L ABG HCO3 29.1 H Sodium 133 L Chloride 95 L Carbon Dioxide 32 H Creatinine 0.55 L AST 43 H Albumin 3.1 L Ur Blood (Man) 1+ H Leukocyte Esterase Rfl Trace H 11/20/24 03:51 RBC Hgb Hct MCHC Neut % (Auto) Lymph % (Auto) Lymph # (Auto) Abs Immat Gran (auto) Absolute Neuts (auto) PT APTT ABG pH ABG pO2 ABG HCO3 Sodium Chloride Carbon Dioxide Creatinine 0.49 L AST Albumin Ur Blood (Man) Leukocyte Esterase Rfl
[2024-11-20] MEDS: ACETAMINOPHEN 325 MG TABLET 650 MG PO (16:29)
[2024-11-20] MEDS: VANCOMYCIN 750 MG/NS 250 ML 750 MG/250 ML BAG 250 MG IVPB (16:29)
--- NOTE | 2024-11-20 19:41 | P.PNIM_ITS ---
Progress Note: A&P Assessment and Plan (1) Persistent pneumonia: Code(s): J18.9 - Pneumonia, unspecified organism Status: Acute (2) COPD (chronic obstructive pulmonary disease): Qualifiers: COPD type: COPD with acute lower respiratory infection Qualified Code(s): J44.0 - Chronic obstructive pulmonary disease with (acute) lower respiratory infection Code(s): J44.9 - Chronic obstructive pulmonary disease, unspecified Status: Acute (3) Chronic respiratory failure with hypoxia and hypercapnia: Code(s): J96.11 - Chronic respiratory failure with hypoxia; J96.12 - Chronic respiratory failure with hypercapnia Status: Acute (4) Acute respiratory alkalosis: Code(s): E87.3 - Alkalosis Status: Acute (5) Hepatocellular carcinoma determined by biopsy of liver: Code(s): C22.0 - Liver cell carcinoma Status: Acute (6) Diarrhea: Qualifiers: Diarrhea type: unspecified type Qualified Code(s): R19.7 - Diarrhea, unspecified Code(s): R19.7 - Diarrhea, unspecified Status: Acute (7) Acute hyponatremia: Code(s): E87.1 - Hypo-osmolality and hyponatremia Status: Acute (8) Pulmonary cachexia due to chronic obstructive pulmonary disease: Code(s): R64 - Cachexia; J44.9 - Chronic obstructive pulmonary disease, unspecified Status: Acute (9) Severe protein-calorie malnutrition: Code(s): E43 - Unspecified severe protein-calorie malnutrition Status: Acute (10) History of tobacco abuse: Code(s): Z87.891 - Personal history of nicotine dependence Status: Acute Plan Patient presented back to the hospital with worsening cough and shortness of breath in the setting of chronic hypoxic hypercapnic respiratory failure and COPD with recent pneumonia. Patient imaging demonstrates worsening infiltrate compared to prior imaging despite completing antibiotic therapy with standard coverage for community-acquired pneumonia. The patient has had persistent pneumonia findings and concern for possible underlying malignancy is still not completely ruled out even with recent PET scan given poor FDG uptake of her hepatocellular carcinoma on PET scan. However given significant worsening in imaging I feel safer to broaden the patient's antibiotic coverage from typical community-acquired coverage up to cefepime and vancomycin. Blood cultures have been obtained and are pending. Will place patient on scheduled nebulizer treatments. She is stable on her home O2 and actually has acute respiratory alkalosis off setting her chronic hypercapnic respiratory failure. Her pCO2 is actually normal at 41 compared to her baseline values of upper 40s to [address] patient on scheduled DuoNeb treatments. Sputum culture and Gram stain have been ordered. Will also check urine Legionella and pneumococcal antigen as well as mycoplasma PCR. Will consult pulmonology for further recommendations. Will check CBC in a.m.. Patient has been having diarrhea since her last hospitalization. Will check C diff PCR to rule out infectious colitis. Patient does have some acute hyponatremia. There may be some component of mild volume depletion given recent diarrhea. Patient did receive 30 mL/kilos fluid bolus in the ER. Will repeat electrolyte panel in a.m. and decide on further fluid administration depending on results. Patient has chronic cachexia likely due to a combination of pulmonary cachexia and protein calorie malnutrition. Her weight is stable compared to last hospitalization. Will check calorie count and provide nutritional supplements. patient is 69 female with history of severe COPD and chronic respiratory failure on home oxygen, presented to the ER with c/o shortness of breath, productive cough, fever, and chills, chest x-ray showed marked worsening of right upper lobe pneumonia/consolidation to further evaluate patient had CTA of chest which was no pulmonary embolus, aortic aneurysm, or aortic dissection. patient is being treated with zithromax, and Cefepime, patient will be seen by Household Worker and further recommendation to follow. patient is also found to have hepatocellular carcinoma, recently had PET scan, patient is seen by construction accountant and oncologist. Subjective Date/time seen: 11/20/24 19:41 Interval history: Worsening shortness of breath and cough H&P-Narrative: 69-year-old female with extensive past medical history, including but not l imited to, recent diagnosis of hepatocellular carcinoma, severe obstructive lung disease on chronic home O2 2 L with recent smoking cessation, iron deficiency anemia, chronic severe protein calorie malnutrition and GERD with prior esophageal stricture requiring dilatation who presented to the ER with worsening cough and shortness of breath. Patient reports that her cough is always productive of yellow to greenish sputum. She reported that after recent hospitalization (11/02/2024 through 11/07/2024) her shortness of breath and cough had improved slightly. But over the last 2 or 3 days she has had worsening cough and shortness of breath. Her sputum production remains the same. She has been having increasing hot flashes and chills which she presumes is due to fever but she did not check her temperature. She was afebrile in the ER. She denies any chest pain or palpitations but did have sinus tachycardia in the ER with heart rate ranging between the low 100s up to 130. She received 30 mL/kilos fluid bolus in the ER with resolution of her tachycardia. Her flu RSV and COVID PCR was negative. Chest x-ray demonstrated worsening right upper lobe pneumonia/consolidation with chronic underlying COPD pattern. With significant worsening in in findings compared to her admission chest x-ray previously on 11/01/2024. Given her recurrent pneumonia CTA was obtained in the ER which dem onstrated significantly worsening right upper lobe consolidation compatible with worsening pneumonia with element of underlying atelectasis or neoplasm not excluded. Possible necrotic changes verses bronchiectasis within the areas of consolidation with underlying advanced COPD/emphysema. Imaging also demonstrated probable splenomegaly. The patient reports that she had her outpatient PET scan performed but does not know the results. On my review of the chart patient her PET scan on 11/15/2024 demonstrated biopsied mass of the right hepatic lobe essentially indiscernible on both noncontrast CT images as well as PET scan images indicating a relatively low degree of FDG uptake which would decreased sensitivity for assessment of metastatic disease. PET scan also demonstrated multifocal pneumonia right lung consolidation involving large portion of the right upper lobe with multiple mildly FDG avid fit right hilar and mediastinal lymph nodes which given distribution likely represent reactive lymph nodes in the setting of right pneumonia with recommended 3 month follow-up noncontrast CT to follow. And diffuse bone marrow uptake most likely physiologic given absence of associated lytic or blastic bone lesions. She has not yet had follow-up with Dr. Gipson from Oncology. She does follow with pulmonology and did get the results of her liver biopsy which identified hepatocellular carcinoma from Dr. Tracey. She has chronic severe protein calorie malnutrition but states that her appetite has remained relatively good for her. She has had onset of diarrhea since her last hospitalization and reports loose watery stools any time she eats anything. She denies any bloody stools are mucousy stools. She denies any abdominal pain. She feels like she empties her bladder completely and denies dysuria or changes in urinary frequency. patient is 69 female with history of severe COPD and chronic respiratory failure on home oxygen, presented to the ER with c/o shortness of breath, productive cough, fever, and chills, chest x-ray showed marked worsening of right upper lobe pneumonia/consolidation to further evaluate patient had CTA of chest which was no pulmonary embolus, aortic aneurysm, or aortic dissection. patient is being treated with zithromax, and Cefepime, patient will be seen by Household Worker and further recommendation to follow. patient is also found to h ave hepatocellular carcinoma, recently had PET scan, patient is seen by construction accountant and oncologist. Review of Systems Review of Systems: 12 systems were reviewed with pertinent positives and negatives per HPI. Except as documented in the HPI, all other systems were reviewed and are negative. All systems reviewed & are unremarkable except as noted in HPI and below Exam Narrative: Patient is comfortable, NAD HEENT: eyes are clear and none icteric LUNGS:CTA HEART: RR S1S2 ABD: BS+, Soft and nontender Lower extremities: no edema SKIN: nonjaundiced Neuro: grossly intact. Objective Data Vital Signs Vital Signs: Vital Signs - 24 hr 11/19/24 20:45 11/19/24 21:00 11/19/24 21:15 Temperature Pulse Rate 114 H 114 H 111 H Respiratory Rate 32 H 25 H 25 H Blood Pressure Pulse Oximetry 99 Oxygen Delivery Oxygen Flow Rate 11/19/24 21:30 11/19/24 21:45 11/19/24 22:00 Temperature Pulse Rate 110 H 109 H 116 H Respiratory Rate 26 H 26 H 26 H Blood Pressure Pulse Oximetry 100 97 Oxygen Delivery Oxygen Flow Rate 11/19/24 22:23 11/19/24 22:24 11/19/24 22:47 Temperature Pulse Rate 102 H 104 H Respiratory Rate 24 H 18 Blood Pressure 104/58 L 106/55 L Pulse Oximetry 96 97 98 Oxygen Delivery Oxygen Flow Rate 2 11/20/24 00:00 11/20/24 00:00 11/20/24 00:17 Temperature 36.8 C Pulse Rate 107 H 90 Respiratory Rate 18 Blood Pressure 113/50 L Pulse Oximetry 95 99 Oxygen Delivery Nasal Cannula Oxygen Flow Rate 2 11/20/24 02:00 11/20/24 02:42 11/20/24 02:49 Temperature Pulse Rate 91 93 Respiratory Rate 18 Blood Pressure Pulse Oximetry 98 Oxygen Delivery Nasal Cannula Oxygen Flow Rate 2 11/20/24 02:55 11/20/24 04:00 11/20/24 04:00 Temperature Pulse Rate 94 91 Respiratory Rate 18 Blood Pressure Pulse Oximetry 98 Oxygen Delivery Nasal Cannula Oxygen Flow Rate 2 11/20/24 04:54 11/20/24 04:57 11/20/24 05:09 Temperature 36.9 C Pulse Rate 104 H 101 H 103 H Respiratory Rate 22 H 22 H 22 H Blood Pressure 137/60 Pulse Oximetry 99 Oxygen Delivery Oxygen Flow Rate 11/20/24 06:00 11/20/24 07:26 11/20/24 07:26 Temperature Pulse Rate 89 87 Respiratory Rate 20 Blood Pressure Pulse Oximetry 97 Oxygen Delivery Nasal Cannula Oxygen Flow Rate 2 11/20/24 07:39 11/20/24 07:52 11/20/24 08:00 Temperature 36.6 C Pulse Rate 92 92 104 H Respiratory Rate 20 12 Blood Pressure 112/52 L Pulse Oximetry 97 Oxygen Delivery Oxygen Flow Rate 11/20/24 08:00 11/20/24 09:15 11/20/24 10:00 Temperature Pulse Rate 93 89 Respiratory Rate Blood Pressure Pulse Oximetry 93 Oxygen Delivery Nasal Cannula Oxygen Flow Rate 2 11/20/24 11:33 11/20/24 12:00 11/20/24 12:00 Temperature 36.8 C Pulse Rate 82 92 Respiratory Rate 16 Blood Pressure 99/52 L Pulse Oximetry 93 93 Oxygen Delivery Nasal Cannula Oxygen Flow Rate 2 11/20/24 13:22 11/20/24 13:30 11/20/24 14:00 Temperature Pulse Rate 86 97 99 Respiratory Rate 20 20 Blood Pressure Pulse Oximetry Oxygen Delivery Oxygen Flow Rate 11/20/24 16:00 11/20/24 16:00 11/20/24 16:00 Temperature 36.6 C Pulse Rate 96 90 Respiratory Rate 12 Blood Pressure 104/53 L Pulse Oximetry 95 95 Oxygen Delivery Nasal Cannula Oxygen Flow Rate 2 11/20/24 18:00 Temperature Pulse Rate 90 Respiratory Rate Blood Pressure Pulse Oximetry Oxygen Delivery Oxygen Flow Rate Intake/Output Intake/Output: Intake & Output 11/17/24 11/18/24 11/19/24 11/20/24 23:59 23:59 23:59 23:59 Intake Total 1500 1810 Output Total 900 Balance 1500 910 Meds/Results Medications: Active Medications Generic Name Dose Route Start Last Admin Trade Name Freq PRN Reason Stop Dose Admin Acetaminophen 650 mg 11/20/24 15:21 11/20/24 16:29 Acetaminophen 325 Mg Tablet PO 650 mg Q4H PRN Administration Mild Pain (1-3) or Fever Albuterol/Ipratropium 3 ml 11/20/24 02:00 11/20/24 13:22 Ipratropium 0.5 Mg/Albuterol Sulfate 2.5 Mg Ampul.Neb 3 Ml INHALATION 3 ml Q6HRT ALBERTA Administration Aspirin 81 mg 11/20/24 09:00 11/20/24 09:14 Aspirin 81 Mg Enteric Tablet PO 81 mg DAILY ALBERTA Administration Cyclobenzaprine HCl 5 mg 11/20/24 09:00 11/20/24 09:14 Cyclobenzaprine Hcl 5 Mg Tablet PO 5 mg Q12HR ALBERTA Administration Ferrous Sulfate 325 mg 11/20/24 09:00 11/20/24 09:14 Ferrous Sulfate [address] BY MOUTH 325 mg DAILY ALBERTA Administration Fluticasone Propionate 1 spray 11/20/24 10:25 11/20/24 11:10 Fluticasone Propionate 0.05% Na Spr 16 Gm Btl (*Bkc) NASAL 1 spray Q12HR ALBERTA Administration Gabapentin 300 mg 11/20/24 00:45 11/20/24 09:14 Gabapentin 300 Mg Capsule PO 300 mg Q12HR ALBERTA Administration Guaifenesin 1,200 mg 11/20/24 00:45 11/20/24 09:14 Guaifenesin 12 Hr 600 Mg Tabcr PO 1,200 mg Q12HR ALBERTA Administration Heparin Sodium (Porcine) 5,000 units 11/20/24 09:00 11/20/24 09:20 Heparin Sodium 5,000 Units/Ml Vial SUB-Q 5,000 units Q12HR ALBERTA Administration Cefepime HCl 2 gm/ Sodium 50 mls @ 100 mls/hr 11/20/24 10:00 11/20/24 09:45 Chloride IVPB Infused Q12H ALBERTA Infusion Vancomycin HCl 750 mg in 250 mls @ 250 mls/hr 11/20/24 17:00 11/20/24 17:29 Vancomycin 750 Mg/Ns 250 Ml IVPB Infused Q18H ALBERTA Infusion Loratadine 10 mg 11/20/24 09:00 11/20/24 09:15 Loratadine 10 Mg Tablet PO 10 mg DAILY ALBERTA Administration Lovastatin 40 mg 11/20/24 21:00 Lovastatin 20 Mg Tablet PO HS ALBERTA Metoprolol Succinate 25 mg 11/20/24 09:00 11/20/24 09:15 Metoprolol Succinate Ext Rel 25 Mg Tabcr PO 25 mg DAILY ALBERTA Administration Oxycodone HCl 10 mg 11/20/24 09:00 11/20/24 09:15 Oxycodone Hcl (*Crx) 10 Mg Tab Sr 12hr PO 10 mg Q12HR ALBERTA Administration Pantoprazole Sodium 40 mg 11/20/24 09:00 11/20/24 09:15 Pantoprazole 40 Mg Tablet PO 40 mg Q12HR ALBERTA Administration Senna/Docusate Sodium 2 tab 11/20/24 00:25 11/20/24 09:14 Senna/Docusate Sodium Tablet PO 2 tab BID PRN Administration Constipation Sodium Chloride 1 spray 11/20/24 10:20 11/20/24 16:30 Saline 0.65% Jeff Soln 44 Ml Btl NASAL 1 spray Q6HR PRN Administration Congestion Solifenacin 5 mg 11/20/24 21:00 Solifenacin 5 Mg Tablet PO HS ALBERTA Umeclidinium/Vilanterol 1 puff 11/20/24 08:00 11/20/24 07:24 Umeclidinium/Vilanterol 62.5-25 Mcg Ellipta INHALATION 1 puff DAILYRT ALBERTA Administration Vitamin D 125 mcg 11/20/24 09:00 11/20/24 09:20 Cholecalciferol (Vitamin D3) 125 Mcg (5,000 Units) Tablet PO 125 mcg DAILY ALBERTA Administration Radiology Results: ITS Impressions Chest X-Ray 11/19/24 18:15 Impression: Marked worsening of right upper lobe pneumonia/consolidation. Underlying COPD. Chest CTA 11/19/24 20:19 Impression: Significantly worsened right upper lobe consolidation, compatible with worsening pneumonia. Element of underlying atelectasis or neoplastic disease cannot be excluded. Question where is necrotic change versus bronchiectasis within the areas of consolidation. Underlying advanced COPD/emphysema. Partially imaged probable splenomegaly. No pulmonary embolus, aortic aneurysm, or aortic dissection. Labs Labs: Laboratory Results - last 24 hr 11/19/24 11/19/24 11/19/24 18:47 20:32 22:02 Creatinine Estim Creat Clear Calc Estimated GFR Procalcitonin 0.2 Urine Color Yellow Urine Appearance Clear Urine pH 6.5 Ur Specific [place] 1.007 Urine Protein Negative Urine Glucose (UA) Negative Urine Ketones Negative Ur Blood (Man) 1+ H Urine Nitrate Negative Urine Bilirubin Negative Urine Urobilinogen 0.2 Add Ur Microanalysis Reviewed Leukocyte Esterase Rfl Trace H Urine RBC 0-2 Urine WBC 0-5 Ur Squamous Epith Cells None seen Calcium Oxalate Crystal Present Urine Bacteria None seen Urine Casts 0-2 Nasal MRSA (PCR) Not detected C. difficile (PCR) Influenza A (RT-PCR) Negative Influenza B (RT-PCR) Negative RSV (RT-PCR) Negative SARS-CoV-2 RNA (RT-PCR) Negative 11/20/24 11/20/24 03:51 05:11 Creatinine 0.49 L Estim Creat Clear Calc 57 Estimated GFR > 60 Procalcitonin Urine Color Urine Appearance Urine pH Ur Specific [place] Urine Protein Urine Glucose (UA) Urine Ketones Ur Blood (Man) Urine Nitrate Urine Bilirubin Urine Urobilinogen Add Ur Microanalysis Leukocyte Esterase Rfl Urine RBC Urine WBC Ur Squamous Epith Cells Calcium Oxalate Crystal Urine Bacteria Urine Casts Nasal MRSA (PCR) C. difficile (PCR) Negative Influenza A (RT-PCR) Influenza B (RT-PCR) RSV (RT-PCR) SARS-CoV-2 RNA (RT-PCR) Quality VTE Prophylaxis VTE prophylaxis: pharmacologic ordered (Heparin 5000 units subQ q.12h.)
[2024-11-20] MEDS: SOLIFENACIN 5 MG TABLET PO (20:33)
[2024-11-20] MEDS: LOVASTATIN 20 MG TABLET 40 MG PO (20:33)
[2024-11-21] VITALS (22 sets, daily range): BP systolic 110–117; BP diastolic 46–64; PULSE 82–122; RESP 16–20; TEMP 36.6–37; O2SAT 94–99; BMI 15.5
[2024-11-21] MEDS: IPRATROPIUM 0.5 MG/ALBUTEROL SULFATE 2.5 MG AMPUL.NEB 3 ML INHALATION ×4 (01:46→20:52)
[2024-11-21 04:05] LABS: Hematocrit 29.2 % (37.0-47.0); Hemoglobin 8.8 g/dL (12.0-15.0); Mean Corpuscular HGB Conc 30.1 g/dl (32-36); Mean Corpuscular Hemoglobin 29.5 pg (26-34); Mean Corpuscular Volume 98.0 fl (80-100); Platelet Count Result 205 k/mm3 (150-375); Red Blood Count 2.98 M/mm3 (4.2-5.4); White Blood Count 6.5 K/mm3 (4.5-10.0)
[2024-11-21 04:35] LABS: Anion Gap 3 mmol/L (4-12); Blood Urea Nitrogen 7 mg/dL (7-17); Calcium 9.5 mg/dL (8.4-10.2); Carbon Dioxide 33 mmol/L (22-30); Chloride 101 mmol/L (98-107); Estimated CRCL calculation 52 ml/min; Estimated Glomerular Filt Rate > 60; Glucose 119 mg/dL (65-110); Magnesium 1.7 mg/dL (1.6-2.3); Potassium 4.3 mmol/L (3.4-5.0); Sodium 137 mmol/L (137-145)
[2024-11-21 04:58] LABS: Procalcitonin 0.2 ng/mL
[2024-11-21] MEDS: CEFEPIME 2 GM in SODIUM CHLORIDE 0.9% IV 50 ML 100 ML IVPB ×2 (09:12→21:10)
[2024-11-21] MEDS: guaiFENesin 12 HR 600 MG TABCR 1200 MG PO ×2 (09:17→20:20)
[2024-11-21] MEDS: FERROUS SULFATE 325 MG TABLET DR BY MOUTH (09:18)
[2024-11-21] MEDS: METOPROLOL SUCCINATE EXT REL 25 MG TABCR PO (09:18)
[2024-11-21] MEDS: ASPIRIN 81 MG ENTERIC TABLET PO (09:18)
[2024-11-21] MEDS: PANTOPRAZOLE 40 MG TABLET PO ×2 (09:18→20:20)
[2024-11-21] MEDS: CHOLECALCIFEROL (VITAMIN D3) 125 MCG (5,000 UNITS) TABLET PO (09:18)
[2024-11-21] MEDS: CYCLOBENZAPRINE HCL 5 MG TABLET PO ×2 (09:24→20:20)
[2024-11-21] MEDS: oxyCODONE HCL (*CRX) 10 MG TAB SR 12HR PO ×2 (09:24→20:20)
[2024-11-21] MEDS: LORATADINE 10 MG TABLET PO (09:24)
[2024-11-21] MEDS: GABAPENTIN 300 MG CAPSULE PO ×2 (09:24→20:20)
[2024-11-21] MEDS: VANCOMYCIN 750 MG/NS 250 ML 750 MG/250 ML BAG 250 MG IVPB (11:19)
[2024-11-21] MEDS: FLUTICASONE PROPIONATE 0.05% NA SPR 16 GM BTL (*BKC) 1 SPRAY NASAL ×2 (11:21→20:21)
[2024-11-21] MEDS: AZITHROMYCIN IV 500 MG in SODIUM CHLORIDE 0.9% IV 250 ML IVPB (14:00)
[2024-11-21] MEDS: metroNIDAZOLE 500 MG/ISO 100ML 500 MG/100 ML BAG 100 MG IVPB ×2 (16:20→21:43)
--- NOTE | 2024-11-21 17:26 | PM.IMPN ---
Progress Note: A&P Assessment and Plan (1) Persistent pneumonia: Code(s): J18.9 - Pneumonia, unspecified organism Status: Acute (2) COPD (chronic obstructive pulmonary disease): Qualifiers: COPD type: COPD with acute lower respiratory infection Qualified Code(s): J44.0 - Chronic obstructive pulmonary disease with (acute) lower respiratory infection Code(s): J44.9 - Chronic obstructive pulmonary disease, unspecified Status: Acute (3) Chronic respiratory failure with hypoxia and hypercapnia: Code(s): J96.11 - Chronic respiratory failure with hypoxia; J96.12 - Chronic respiratory failure with hypercapnia Status: Acute (4) Acute respiratory alkalosis: Code(s): E87.3 - Alkalosis Status: Acute (5) Hepatocellular carcinoma determined by biopsy of liver: Code(s): C22.0 - Liver cell carcinoma Status: Acute (6) Diarrhea: Qualifiers: Diarrhea type: unspecified type Qualified Code(s): R19.7 - Diarrhea, unspecified Code(s): R19.7 - Diarrhea, unspecified Status: Acute (7) Acute hyponatremia: Code(s): E87.1 - Hypo-osmolality and hyponatremia Status: Acute (8) Pulmonary cachexia due to chronic obstructive pulmonary disease: Code(s): R64 - Cachexia; J44.9 - Chronic obstructive pulmonary disease, unspecified Status: Acute (9) Severe protein-calorie malnutrition: Code(s): E43 - Unspecified severe protein-calorie malnutrition Status: Acute (10) History of tobacco abuse: Code(s): Z87.891 - Personal history of nicotine dependence Status: Acute Plan Patient presented back to the hospital with worsening cough and shortness of breath in the setting of chronic hypoxic hypercapnic respiratory failure and COPD with recent pneumonia. Patient imaging demonstrates worsening infiltrate compared to prior imaging despite completing antibiotic therapy with standard coverage for community-acquired pneumonia. The patient has had persistent pneumonia findings and concern for possible underlying malignancy is still not completely ruled out even with recent PET scan given poor FDG uptake of her hepatocellular carcinoma on PET scan. However given significant worsening in imaging I feel safer to broaden the patient's antibiotic coverage from typical community-acquired coverage up to cefepime and vancomycin. Blood cultures have been obtained and are pending. Will place patient on scheduled nebulizer treatments. She is stable on her home O2 and actually has acute respiratory alkalosis off setting her chronic hypercapnic respiratory failure. Her pCO2 is actually normal at 41 compared to her baseline values of upper 40s to [address] patient on scheduled DuoNeb treatments. Sputum culture and Gram stain have been ordered. Will also check urine Legionella and pneumococcal antigen as well as mycoplasma PCR. Will consult pulmonology for further recommendations. Will check CBC in a.m.. Patient has been having diarrhea since her last hospitalization. Will check C diff PCR to rule out infectious colitis. Patient does have some acute hyponatremia. There may be some component of mild volume depletion given recent diarrhea. Patient did receive 30 mL/kilos fluid bolus in the ER. Will repeat electrolyte panel in a.m. and decide on further fluid administration depending on results. Patient has chronic cachexia likely due to a combination of pulmonary cachexia and protein calorie malnutrition. Her weight is stable compared to last hospitalization. Will check calorie count and provide nutritional supplements. patient is 69 female with history of severe COPD and chronic respiratory failure on home oxygen, presented to the ER with c/o shortness of breath, productive cough, fever, and chills, chest x-ray showed marked worsening of right upper lobe pneumonia/consolidation to further evaluate patient had CTA of chest which was no pulmonary embolus, aortic aneurysm, or aortic dissection. patient is being treated with zithromax, and Cefepime, patient will be seen by Licensed Clinical Social Worker and further recommendation to follow. patient is also found to have hepatocellular carcinoma, recently had PET scan, patient is seen by application spec and oncologist. patient was seen by her saturation diver and reviewed her CT scan of the chest which showed patient pneumonia and consolidation are worsening compared earlier this month on November 01, agree with current treatment plan with Cefepime, further ordered chest PT and pulmonary toilet, also being treated with duo neb, patient stats she feels much better compared to when came. Subjective Date/time seen: 11/21/24 17:26 Interval history: Worsening shortness of breath and cough H&P-Narrative: 69-year-old female with extensive past medical history, including but not limited to, recent diagnosis of hepatocellular carcinoma, severe obstructive lung disease on chronic home O2 2 L with recent smoking cessation, iron deficiency anemia, chronic severe protein calorie malnutrition and GERD with prior esophageal stricture requiring dilatation who presented to the ER with worsening cough and shortness of breath. Patient reports that her cough is always productive of yellow to greenish sputum. She reported that after recent hospitalization (11/02/2024 through 11/07/2024) her shortness of breath and cough had improved slightly. But over the last 2 or 3 days she has had worsening cough and shortness of breath. Her sputum production remains the same. She has been having increasing hot flashes and chills which she presumes is due to fever but she did not check her temperature. She was afebrile in the ER. She denies any chest pain or palpitations but did have sinus tachycardia in the ER with heart rate ranging between the low 100s up to 130. She received 30 mL/kilos fluid bolus in the ER with resolution of her tachycardia. Her flu RSV and COVID PCR was negative. Chest x-ray demonstrated worsening right upper lobe pneumonia/consolidation with chronic underlying COPD pattern. With significant worsening in in findings compared to her admission chest x-ray previously on 11/01/2024. Given her recurrent pneumonia CTA was obtained in the ER which demonstrated significantly worsening right upper lobe consolidation compatible with worsening pneumonia with element of underlying atelectasis or neoplasm not excluded. Possible necrotic changes verses bronchiectasis within the areas of consolidation with underlying advanced COPD/emphysema. Imaging also demonstrated probable splenomegaly. The patient reports that she had her outpatient PET scan performed but does not know the results. On my review of the chart patient her PET scan on 11/15/2024 demonstrated biopsied mass of the right hepatic lobe essentially indiscernible on both noncontrast CT images as well as PET scan images indicating a relatively low degree of FDG uptake which would decreased sensitivity for assessment of metastatic disease. PET scan also demonstrated multifocal pneumonia right lung consolidation involving large portion of the right upper lobe with multiple mildly FDG avid fit right hilar and mediastinal lymph nodes which given distribution likely represent reactive lymph nodes in the setting of right pneumonia with recommended 3 month follow-up noncontrast CT to follow. And diffuse bone marrow uptake most likely physiologic given absence of associated lytic or blastic bone lesions. She has not yet had follow-up with Dr. Gipson from Oncology. She does follow with pulmonology and did get the results of her liver biopsy which identified hepatocellular carcinoma from Dr. Tracey. She has chronic severe protein calorie malnutrition but states that her appetite has remained relatively good for her. She has had onset of diarrhea since her last hospitalization and reports loose watery stools any time she eats anything. She denies any bloody stools are mucousy stools. She denies any abdominal pain. She feels like she empties her bladder completely and denies dysuria or changes in urinary frequency. patient is 69 female with history of severe COPD and chronic respiratory failure on home oxygen, presented to the ER with c/o shortness of breath, productive cough, fever, and chills, chest x-ray showed marked worsening of right upper lobe pneumonia/consolidation to further evaluate patient had CTA of chest which was no pulmonary embolus, aortic aneurysm, or aortic dissection. patient is being treated with zithromax, and Cefepime, patient will be seen by Licensed Clinical Social Worker and further recommendation to follow. patient is also found to have hepatocellular carcinoma, recently had PET scan, patient is seen by application spec and oncologist. patient was seen by her saturation diver and reviewed her CT scan of the chest which showed patient pneumonia and consolidation are worsening compared earlier this month on November 01, agree with current treatment plan with Cefepime, further ordered chest PT and pulmonary toilet, also being treated with duo neb, patient stats she feels much better compared to when came. Review of Systems Review of Systems: 12 systems were reviewed with pertinent positives and negatives per HPI. Except as documented in the HPI, all other systems were reviewed and are negative. All systems reviewed & are unremarkable except as noted in HPI and below Exam Narrative: Patient is comfortable, NAD HEENT: eyes are clear and none icteric LUNGS:CTA HEART: RR S1S2 ABD: BS+, Soft and nontender Lower extremities: no edema SKIN: nonjaundiced Neuro: grossly intact. Objective Data Vital Signs Vital Signs: Vital Signs - 24 hr 11/20/24 18:00 11/20/24 20:00 11/20/24 20:00 Temperature 36.6 C Pulse Rate 90 94 Respiratory Rate 17 Blood Pressure 114/56 L Pulse Oximetry 96 99 Oxygen Delivery Nasal Cannula Oxygen Flow Rate 2 11/20/24 20:00 11/20/24 20:05 11/20/24 20:05 Temperature Pulse Rate 82 79 Respiratory Rate 20 Blood Pressure Pulse Oximetry 99 Oxygen Delivery Nasal Cannula Oxygen Flow Rate 2 11/20/24 22:00 11/20/24 23:44 11/21/24 00:00 Temperature 36.6 C Pulse Rate 87 83 Respiratory Rate 17 Blood Pressure 101/56 L Pulse Oximetry 96 96 Oxygen Delivery Nasal Cannula Oxygen Flow Rate 2 11/21/24 00:00 11/21/24 01:46 11/21/24 01:56 Temperature Pulse Rate 82 95 97 Respiratory Rate 18 18 Blood Pressure Pulse Oximetry Oxygen Delivery Oxygen Flow Rate 11/21/24 02:00 11/21/24 04:00 11/21/24 04:00 Temperature 36.6 C Pulse Rate 111 H 105 H Respiratory Rate 18 Blood Pressure 117/64 Pulse Oximetry 99 99 Oxygen Delivery Nasal Cannula Oxygen Flow Rate 2 11/21/24 04:00 11/21/24 06:00 11/21/24 06:12 Temperature Pulse Rate 116 H 104 H 103 H Respiratory Rate 18 Blood Pressure Pulse Oximetry Oxygen Delivery Oxygen Flow Rate 11/21/24 06:18 11/21/24 08:00 11/21/24 08:00 Temperature 37.0 C Pulse Rate 104 H 110 H 107 H Respiratory Rate 18 18 Blood Pressure 111/49 L Pulse Oximetry 95 Oxygen Delivery Oxygen Flow Rate 11/21/24 09:18 11/21/24 10:00 11/21/24 11:45 Temperature 36.9 C Pulse Rate 122 H 110 H 106 H Respiratory Rate 16 Blood Pressure 112/58 L Pulse Oximetry 98 Oxygen Delivery Oxygen Flow Rate 11/21/24 12:00 11/21/24 14:00 11/21/24 15:00 Temperature Pulse Rate 101 H 93 88 Respiratory Rate 18 Blood Pressure Pulse Oximetry Oxygen Delivery Oxygen Flow Rate 11/21/24 15:15 11/21/24 16:00 11/21/24 16:00 Temperature 36.8 C Pulse Rate 105 H 104 H 106 H Respiratory Rate 20 18 Blood Pressure 116/50 L Pulse Oximetry 97 Oxygen Delivery Oxygen Flow Rate Intake/Output Intake/Output: Intake & Output 11/18/24 11/19/24 11/20/24 11/21/24 23:59 23:59 23:59 23:59 Intake Total 1500 1860 950 Output Total 900 900 Balance 1500 960 50 Meds/Results Medications: Active Medications Generic Name Dose Route Start Last Admin Trade Name Freq PRN Reason Stop Dose Admin Acetaminophen 650 mg 11/20/24 15:21 11/20/24 16:29 Acetaminophen 325 Mg Tablet PO 650 mg Q4H PRN Administration Mild Pain (1-3) or Fever Albuterol/Ipratropium 3 ml 11/20/24 02:00 11/21/24 15:00 Ipratropium 0.5 Mg/Albuterol Sulfate 2.5 Mg Ampul.Neb 3 Ml INHALATION 3 ml Q6HRT ALBERTA Administration Aspirin 81 mg 11/20/24 09:00 11/21/24 09:18 Aspirin 81 Mg Enteric Tablet PO 81 mg DAILY ALBERTA Administration Cyclobenzaprine HCl 5 mg 11/20/24 09:00 11/21/24 09:24 Cyclobenzaprine Hcl 5 Mg Tablet PO 5 mg Q12HR ALBERTA Administration Ferrous Sulfate 325 mg 11/20/24 09:00 11/21/24 09:18 Ferrous Sulfate [address] BY MOUTH 325 mg DAILY ALBERTA Administration Fluticasone Propionate 1 spray 11/20/24 10:25 11/21/24 11:21 Fluticasone Propionate 0.05% Na Spr 16 Gm Btl (*Bkc) NASAL 1 spray Q12HR ALBERTA Administration Gabapentin 300 mg 11/20/24 00:45 11/21/24 09:24 Gabapentin 300 Mg Capsule PO 300 mg Q12HR ALBERTA Administration Guaifenesin 1,200 mg 11/20/24 00:45 11/21/24 09:17 Guaifenesin 12 Hr 600 Mg Tabcr PO 1,200 mg Q12HR ALBERTA Administration Heparin Sodium (Porcine) 5,000 units 11/20/24 09:00 11/21/24 09:24 Heparin Sodium 5,000 Units/Ml Vial SUB-Q 5,000 units Q12HR ALBERTA Administration Cefepime HCl 2 gm/ Sodium 50 mls @ 100 mls/hr 11/20/24 10:00 11/21/24 09:12 Chloride IVPB 100 mls/hr Q12H ALBERTA Administration Azithromycin 500 mg/ Sodium 250 mls @ 250 mls/hr 11/21/24 12:00 11/21/24 14:00 Chloride IVPB 250 mls/hr DAILY ALBERTA Administration Metronidazole 500 mg in 100 mls @ 100 mls/hr 11/21/24 12:00 11/21/24 16:20 Flagyl 500 Mg/Iso Soln 100 Ml IVPB 100 mls/hr Q8H ALBERTA Administration Loratadine 10 mg 11/20/24 09:00 11/21/24 09:24 Loratadine 10 Mg Tablet PO 10 mg DAILY ALBERTA Administration Lovastatin 40 mg 11/20/24 21:00 11/20/24 20:33 Lovastatin 20 Mg Tablet PO 40 mg HS ALBERTA Administration Metoprolol Succinate 25 mg 11/20/24 09:00 11/21/24 09:18 Metoprolol Succinate Ext Rel 25 Mg Tabcr PO 25 mg DAILY ALBERTA Administration Oxycodone HCl 10 mg 11/20/24 09:00 11/21/24 09:24 Oxycodone Hcl (*Crx) 10 Mg Tab Sr 12hr PO 10 mg Q12HR ALBERTA Administration Pantoprazole Sodium 40 mg 11/20/24 09:00 11/21/24 09:18 Pantoprazole 40 Mg Tablet PO 40 mg Q12HR ALBERTA Administration Senna/Docusate Sodium 2 tab 11/20/24 00:25 11/20/24 09:14 Senna/Docusate Sodium Tablet PO 2 tab BID PRN Administration Constipation Sodium Chloride 1 spray 11/20/24 10:20 11/20/24 16:30 Saline 0.65% Jeff Soln 44 Ml Btl NASAL 1 spray Q6HR PRN Administration Congestion Solifenacin 5 mg 11/20/24 21:00 11/20/24 20:33 Solifenacin 5 Mg Tablet PO 5 mg HS ALBERTA Administration Umeclidinium/Vilanterol 1 puff 11/20/24 08:00 11/20/24 07:24 Umeclidinium/Vilanterol 62.5-25 Mcg Ellipta INHALATION 1 puff DAILYRT ALBERTA Administration Vitamin D 125 mcg 11/20/24 09:00 11/21/24 09:18 Cholecalciferol (Vitamin D3) 125 Mcg (5,000 Units) Tablet PO 125 mcg DAILY ALBERTA Administration Radiology Results: ITS Impressions Chest X-Ray 11/19/24 18:15 Impression: Marked worsening of right upper lobe pneumonia/consolidation. Underlying COPD. Chest CTA 11/19/24 20:19 Impression: Significantly worsened right upper lobe consolidation, compatible with worsening pneumonia. Element of underlying atelectasis or neoplastic disease cannot be excluded. Question where is necrotic change versus bronchiectasis within the areas of consolidation. Underlying advanced COPD/emphysema. Partially imaged probable splenomegaly. No pulmonary embolus, aortic aneurysm, or aortic dissection. Labs Labs: Laboratory Results - last 24 hr 11/20/24 11/21/24 11/21/24 03:51 03:59 10:02 WBC 6.5 RBC 2.98 L Hgb 8.8 L Hct 29.2 L MCV 98.0 MCH 29.5 MCHC 30.1 L RDW 12.5 Plt Count 205 MPV 9.4 Sodium 137 Potassium 4.3 Chloride 101 Carbon Dioxide 33 H Anion Gap 3 L BUN 7 Creatinine 0.59 L Estim Creat Clear Calc 52 Estimated GFR > 60 Glucose 119 H Calcium 9.5 Magnesium 1.7 Procalcitonin 0.2 Vancomycin Trough 7.4 L M.pneumoniae IgG Titer 1138 H Quality VTE Prophylaxis VTE prophylaxis: pharmacologic ordered (Heparin 5000 units subQ q.12h.)
--- NOTE | 2024-11-21 17:32 | PM.PNPUL ---
Progress Note: A&P Assessment and Plan (1) Right upper lobe pneumonia: Code(s): J18.9 - Pneumonia, unspecified organism Status: Acute Assessment and Plan: She has significant worsening of RUL infiltrate since admission in early November. This area is much more consolidated. She is not improving with pulmonary hygiene. She has plans for MRI this Thursday and appt with [facility] surgeon next Thursday for hepatocellular carcinoma. Her chest CTs comparing November 01 and November 19 show significant worsening in the right upper lobe, and with normal procalcitonin, I am worried about an endobronchial lesion. The PET scan did not light up in the lung or the liver. She may have mucus plugging or a mass in the airway, or some process compressing the airway from the outside. There is so much consolidation that it is difficult to tell. continue pulmonary hygiene measures, antibiotics; Stop Vanco, Start IV Flagyl and po azithromycin. She has recurrent pneumonias. * 09/01/24 modified barium swallow; Trace penetration without aspiration. She has had an evolving right upper lobe scar/density over the last several CT scans now with a cavity. Comparing CT scans from August 31 2024, CTA, October 21 and November 01. The overall lesion is larger and more cavitary. The differential includes malignancy, fungal, non tuberculous and tuberculous mycobacteria, autoimmune, she has Raynaud's an a diagnosis of RA which can cause cavitary lung nodules. She patient has been treated for pneumonia multiple times in the last few months. This area is worse, and we will plan for a bronchoscopy to remove secretions and determine if she has something occluding the airway. (2) Chronic respiratory failure with hypoxia and hypercapnia: Code(s): J96.11 - Chronic respiratory failure with hypoxia; J96.12 - Chronic respiratory failure with hypercapnia Status: Acute Assessment and Plan: Long time use of O2 at home, long standing hypercapnia and hypoxemia however no hypercapnia this admission; this may reflect increased respiratory alkalosis with acute drop in hypercapnia. She is stable on 2 L/min. She has had hypercapnia dating back to 07/07/2019, her highest pCO2 on a blood gas was this past September,September 05, 2024 with a pCO2 of 70.7. She uses oxygen at home 2 L a minute at night. Will wean her oxygen as tolerated and perform a home oxygen evaluation prior to her discharge. (3) COPD (chronic obstructive pulmonary disease): Qualifiers: COPD type: unspecified COPD Qualified Code(s): J44.9 - Chronic obstructive pulmonary disease, unspecified Code(s): J44.9 - Chronic obstructive pulmonary disease, unspecified Status: Acute Assessment and Plan: Long standing, advanced, on standard treatment at home, which will continue here with additional treatment for acute worsening due to pneumonia. (4) Oxygen dependent: Code(s): Z99.81 - Dependence on supplemental oxygen Status: Acute Assessment and Plan: Long standing, O2 need stable at 2 L/min. (5) Pulmonary cachexia due to chronic obstructive pulmonary disease: Code(s): R64 - Cachexia; J44.9 - Chronic obstructive pulmonary disease, unspecified Status: Acute Assessment and Plan: She has pulmonary cachexia due to chronic obstructive pulmonary disease as well as interstitial lung disease. She has not smoked since her last admission, early November. Last admission, we provided supplemental protein shakes. (6) History of tobacco abuse: Code(s): Z87.891 - Personal history of nicotine dependence Status: Acute Assessment and Plan: She is smoking 2-3 cigarettes a day, not helping. Plan Plan: CXR 2 view in am. Continue pulm hygiene. Bronchoscopy tomorrow in the afternoon. If we can clear the airway, this may improve recovery so that she proceed with MRI Thursday and surgical consultation Thursday @ [facility] for hepatocellular carcinoma. Continue PEP valve and a vibratory vest t.i.d. to help move secretions. She will continue to bronchodilator therapy, mucolytics. Changed antibiotics to stop vanco, start IV Flagyl and oral azithromycin for atypical coverage.She has had recurrent pneumonia. Her son is in [place], recently . Romi asked if it is appropriate to tell her son to come into town. This is a decision he will have to make. She clearly has many processes going on. At this point we know she has a stage I A hepatocellular carcinoma and problems with non resolving pneumonia. We do not have evidence that she has lung cancer. She has a cavitary lesion in the right upper lobe and now has significant consolidation so it is possible there is a malignant process but the PET scan does not suggest malignancy. She has reactive lymph nodes in the chest. We had a shared decision-making discussion, she understands that doing a bronchoscopy will help remove secretions and if there is a mass in the airway we may be able to biopsy and brush. I was very clear that you we cannot remove cancer if we find it. We will not even know what the diagnosis is until samples are sent to pathology. We do not have endobronchial ultrasound or navigational bronchoscopy at our facility. If her process is more challenging and regular bronchoscopy is not beneficial, I told her that we would arrange a transfer to another facility, probably [facility] since this is where Dr. Gipson is affiliated and they have a higher level of pulmonary services. Subjective Date/time seen: 11/21/24 17:32 Interval history: 11/20/2024; new consult; Melyssa Mccall is 69 years old, was recently in the hospital with acute on chronic respiratory failure in the right upper lobe infiltrate. She was admitted from November 01 through November 07 feeling much better, less short of breath. She had a liver biopsy for a mass, was diagnosed with hepatocellular carcinoma from the biopsy. Results came back after she went home. I saw her at the time of discharge and she did look stable. She was much less short of breath. She tells me that she never completely returned to baseline. She has had a week of fever, chills, with coughing unable to expectorate secretions. She has also had frequent diarrhea about once every 4 hours, no blood in her stools. She has been eating normally. She complains of congestion especially in the right nostril with scant blood from the right nostril. 11/21/24; Her closest local friend Romi is here; pt had 3 uses of the vibratory vest, is using the Cornet, and has some secretions coming up. Very few. Not really the response that we wanted. Her secretions are very thick and hard to mobilize. Was smoking 2-3 cig a day prior to this admission. She feels minimally improved since admission. With a negative MRSA swab, vancomycin was stopped. She is now on IV Flagyl and oral azithromycin for atypical coverage. Her procalcitonin is 0.2, low, argues against bacterial infection altogether. On 2 L/min, saturaiton is 93-96%. DATA * 11/19/24 CTA; : 11/01/2024 Findings: There is no evidence of any significant mediastinal, hilar or axillary lymphadenopathy. There is no filling defect in the pulmonary arterial tree to suggest pulmonary embolus. There is no evidence of aortic dissection or aneurysm. There is no evidence of pleural or pericardial effusion. There is much more extensive and dense right upper lobe consolidation as compared to prior exam, compatible significant worsening of pneumonia. Elevated atelectasis or underlying neoplasm cannot be excluded. Questionable areas of necrotic change versus bronchiectasis within the areas of consolidation. There is underlying advanced COPD/emphysema with bibasilar mild interstitial prominence. Images through the upper abdomen reveal probable partially imaged splenomegaly. Impression: Significantly worsened right upper lobe consolidation, compatible with worsening pneumonia. Element of underlying atelectasis or neoplastic disease cannot be excluded. Question where is necrotic change versus bronchiectasis within the areas of consolidation. Underlying advanced COPD/emphysema. Partially imaged probable splenomegaly. No pulmonary embolus, aortic aneurysm, or aortic dissection. * 11/15/24; PET; Biopsied mass in the right hepatic lobe essentially indiscernible on both the noncontrast CT images as well as on PET imaging indicating a relatively low degree of FDG uptake which would decrease sensitivity for assessment for metastatic disease. 2. Multifocal pneumonia the right lung with consolidation and large portion of the right upper lobe. 3. Multiple mildly FDG avid right hilar and mediastinal lymph nodes which given distribution are likely reactive related to the pneumonia in the right lung. These are difficult to image on the noncontrast CT images and would consider 3 month follow-up with contrast-enhanced chest CT. 4. Diffuse mild marrow uptake most likely physiologic given the absence of associated lytic or blastic bone lesions. Prior admissions; November 01, 2024; new consult; Melyssa Mccall is a 69-year old woman followed in our practice most recent visit was 10/06/2024, she has recurrent pneumonias, hypertension, hyperlipidemia, SVT, the esophageal ring status post dilation, chronic sinusitis, COPD on home oxygen, chronic hypercapnic hypoxemic respiratory failure. She was in the hospital August 31 through September 07, has been on Levaquin and other antibiotics as an outpatient recently; she saw Dr. Newman in follow-up on October 06 and afterwards had a PFT showing a severe obstructive abnormality, hyperinflation severely decreased diffusion. Her 6 minute walk showed that she did not require supplemental oxygen at rest she does require 2 L a minute with exertion. She says that at home she felt like she just could not catch her breath. She was sweating, coughing and with each intense cough, she had pain initially in the right posterior chest and then it wraps around to the right anterior chest. She cannot expectorate her secretions very easily. Her last cigarette was 2 days prior to admission. She complains of crusting in her nose and scant bleeding from the nose. This may be due to nasal cannula O2. She does not have hemoptysis. She has lost from 137 lb to 90 lb over the last 3 years. She has diffuse aches and pains. She has had no GI symptoms, nose specific sinus complaints, no sore throat or earache. Her saturation on admission is 99% on 2 liters/minute. November 02, 2024; She had the liver biopsy, ready to eat, she feels better, less coughing. She is interested in quitting smoking, and agreed to a nicotine patch. Now on 2 L, sat is 94-97%. November 04, 2024; on 2 L saturation is 95-99%. She feels better compared to admission, not as short of breath, coughing resolved. Liver biopsy results still pending. DATA * sodium 136, potassium 4.0, chloride 98, carbon dioxide 33, BUN 14, , creatinine 0.52, glucose 111k, white blood cell count 7.2 k with 76% awga, hemoglobin 13.1 grams/deciliter, hematocrit 41.1%, platelets 202k, 3 flat troponins, serology negative for influenza A, B, RSV and SARS-CoV-2 * 11/01/[address] = She has a 2.7 cm hepatic lesion. No evidence of pulmonary embolus, aortic dissection, or aortic aneurysm. Significant worsening of patchy airspace consolidation and interstitial thickening overload, compatible significant worsening of pneumonia. Central right upper lobe airspace opacity with cavitary or cystic change is again present, which could reflect underlying neoplastic disease or treated disease versus pneumonia. Severe emphysema. document embedded image Since she was last admitted, she had a PFT & 6MW; * 10/21/24 PFT; severe obstructive abnormality, no change after albuterol; increased RV consistent with hyperinflation from an obstructive abnormality. The diffusing capacity unadjusted for hemoglobin and carboxyhemoglobin is severely decreased and remains severely decreased when adjusted for alveolar volume. In comparison to previous pulmonary function testing on 12/14/2019 there has been a greater than anticipated time dependent decrease in the FVC, FEV1 and diffusing capacity. There has been a greater than anticipated time dependent increase in the functional residual capacity and residual volume with no significant change in the total lung capacity. Clinical correlation is recommended. * 10/21/24 6MW; patient did not require supplemental oxygen at rest, require 2 L with exertion. = = = = = = = = = = = HISTORY = = = = = = = = = = = HISTORY = = = = = = = = = = = 10/27/24 phone call, Dr Newman spoke with the patient. We reviewed her CT scan results, PFT results and 6 minute walk test results. I informed her that she needs no oxygen at rest and 2 L with activity, her PFTs show a severe obstructive abnormality which is worse since 12/14/[address] scan shows worsening right upper lobe mass consistent with atelectasis, mucus or pneumonia. She continues to smoke 10-15 cigarettes a day. I have told her her disease is continuing to progress and that is absolutely necessary for her to quit. She will try to use nicotine patches and behavior modification. She does not wish for Chantix. Patient has 2-3 days of feeling hot and cold, increased mucus production worsening shortness of breath. She is not wheezing. She has no in known exposures to COVID or other sick people. the patient just finished Flagyl and Levaquin about 09/14/2024. The patient has responded to azithromycin in the past And I prescribed a Z-Pasquale. I told the patient to call us if she did not clinically improve. She voiced understanding. 10/21/24; Chest CT without Contrast: Clinical Indication: COPD Technique: Contiguous sections were acquired throughout the chest without intravenous contrast. Dose reduction technique was used on this scan by utilizing automated exposure control and iterative reconstruction technique. The dose-length product (DLP) was 140.62 mGy-cm. COMPARISON: 08/31/2024 Findings: There is no evidence of any significant mediastinal, hilar or axillary lymphadenopathy. There are extensive atherosclerotic calcifications of the aorta and coronary arteries. There is no evidence of pleural or pericardial effusion. Chronic biapical scarring and calcification noted. There is severe emphysema. Irregular consolidation with cystic or cavitary change in the right upper lobe is probably minimally increased in extent from prior exam. Images through the upper abdomen reveal no abnormalities. Impression: Irregular right upper lobe consolidation with cystic or cavitary changes, mildly increased in extent from prior exam. This is compatible with persistent and mildly worsening pneumonia. Underlying neoplastic disease not completely excluded. Severe emphysema stable biapical scarring and pleural calcification the lung apices. 10/21/24: This is a pulmonary function test with pre and post-bronchodilator spirometry, plethysmography and diffusing capacity. The test was performed and results interpreted in accordance with the 2019 and 2005 ATS/ERS Task Force guidelines respectively using the Global Lung Function Initiative-2012 reference equations. Patient demonstrated good effort and cooperation. Reproducibility criteria were met. The quality of the pre bronchodilator spirometry maneuver was Grade A and post bronchodilator spirometry maneuver was Grade A. Of note, patient was very lethargic during the testing and had to wake herself up numerous times. Findings: Spirometry: There is decreased maximal expiratory airflow at all lung volumes with concave expiratory flow tracing. The contour the inspiratory flow tracing is normal. The pre bronchodilator FVC is 2.53 L, 81% predicted. The pre bronchodilator FEV1 is 0.85 L, 36% predicted. The pre bronchodilator FEV1: FVC ratio is 34%. The post bronchodilator FVC is 2.46 L, representing a 3% decrease. The post bronchodilator FEV1 is 0.88 L, representing a 4% increase. The post bronchodilator FEV1: FVC ratio is 36%. Plethysmography: The total lung capacity is 6.36 L, 116% predicted. The functional residual capacity is 5.05 L, 160% predicted. The residual volume is 3.75 L, 159% predicted. The residual volume: Total lung capacity ratio is 59%. Diffusing capacity: The diffusing capacity unadjusted for hemoglobin and carboxyhemoglobin is 4.2, 19% predicted. The diffusing capacity adjusted for alveolar volume is 1.23, 30% predicted. In comparison to previous pulmonary function testing on 12/14/2019 the post bronchodilator FVC has decreased from 3.45 L to 2.46 L. The post bronchodilator FEV1 is decreased from 1.69 L to 0.88 L. The total lung capacity is unchanged from 6.05 L to 6.36 L. The functional residual capacity is increased from 3.94 L to 5.05 L. The residual volume has increased from 2.92 L to 3.75 L. The diffusing capacity unadjusted for hemoglobin and carboxyhemoglobin is decreased from 6.7 to 4.2. The diffusing capacity adjusted for alveolar volume has decreased from 1.50 to 1.23. Impression: There is a severe obstructive abnormality. There is no significant improvement after inhaling a single dose of albuterol. The increase in residual volume to total lung volume ratio is consistent with hyperinflation from an obstructive abnormality. The diffusing capacity unadjusted for hemoglobin and carboxyhemoglobin is severely decreased and remains severely decreased when adjusted for alveolar volume. In comparison to previous pulmonary function testing on 12/14/2019 there has been a greater than anticipated time dependent decrease in the FVC, FEV1 and diffusing capacity. There has been a greater than anticipated time dependent increase in the functional residual capacity and residual volume with no significant change in the total lung capacity. Clinical correlation is recommended. 10/21/24: This is a 6 minute walk test. The test was performed and interpreted in accordance with the 2014 ERS/ATS task force guidelines. Of note, patient use 2 liters/minute with activity and used a walker for stability Findings: The patient's resting room air oxygen saturation measured by pulse oximetry was 96%, the heart rate was 94 bpm, and the modified Naomi dyspnea score was 0. Patient ambulated using 2 L nasal cannula for 244 meters and oxygen saturation remained 92 to 93%. At the end of the study the heart rate was 100 bpm and the modified Naomi dyspnea score was 2. The patient did not have desaturations at rest on room air and did not have desaturations with ambulation on 2 L nasal cannula.. There are no prior studies for comparison. Collectively this demonstrates she has a severe obstructive abnormality consistent with GOLD grade 3 COPD, with hyperinflation and a severely decreased DLCO and compared to 12/14/2019 there has been significant decrease in the FVC, FEV1 and diffusing capacity with a significant increase in the functional residual capacity and residual volume all consistent with worsening COPD. The patient continues to smoke. The patient needs no oxygen at rest, 2 L with activity. 10/21/[address] scan of the chest from 12/08/2023, 08/02/2024, 08/31/2024 and 10/21/2024 with the radiologist. she has worsening right upper lobe low-attenuation lung nodule consistent with atelectasis, mucous retention or pneumonia in area was previous severe panlobular emphysema. Given the appearance and I rapidity of these changes it is very unlikely that this is cancer. I called the patient to discuss these results with her and left a voice message for her to call the clinic. 10/06/2024: This is the 1st pulmonary clinic encounter following inpatient hospital consultation for COPD with hypercarbic respiratory failure discharged on BiPAP. 69-year-old with a history of hypertension, hyperlipidemia, SVT, the esophageal ring status post dilation, chronic sinusitis, GOLD grade 2 group E COPD on home oxygen and NIV. Patient admitted to [facility] from 08/31/2024 through 09/07/2024 for COPD and pneumonia with hypercarbic respiratory failure. ABG on 08/02/2024 of 7.45/60/128 on 2 L nasal cannula and a blood gas on 09/06/2023 of 7.34/71/ 63 on 2 L nasal cannula. Patient was treated for COPD and pneumonia with Levaquin, Flagyl, DuoNebs and guaifenesin. For her hypercarbic respiratory failure she had [facility] insurance and was approved for BiPAP no rate, IPAP 9, EPAP 4 in 2 L bleed in. This provided adequate oxygenation by overnight oximetry and ABG at the end of the night of 7.40/52/64. She was discharged on Levaquin for 7 days, Flagyl for 5 days, Stiolto Respimat and rescue albuterol. She was to continue guaifenesin 600 p.o. b.i.d., Cornet flutter valve and home O2 assessment demonstrated she required 2 L at rest and 2 L with activity. Plan was for follow-up in the Pulmonary Clinic in 4 weeks for compliance check and to reassess her for CT scan to follow her right upper lobe infiltrate. 09/20/2024: EGD esophagitis was normal. Nonobstructing ring with dilatation. 09/29/2024: PCP office visit note. 2 L nasal cannula saturation 93%. Weight 90 lb. Respiratory medicines include guaifenesin 600 mg p.o. q.12 hours. Albuterol inhaler p.r.n., albuterol nebulizer p.r.n., Stiolto Respimat, Flonase nasal spray 1 b.i.d. p.r.n. Today she tells me that She has had no hospitalizations or exacerbations since discharge on 09/07/2024. Overall the patient has done good. For the last week she has felt well and back close to her normal. She says she is breathing at 95% back to her normal and she is walking more. She says 1 year ago she could walk 4 blocks. Before she got sick she could walk 2 blocks and since leaving the hospital she has gotten stronger and can now walk 1 block. Her appetite has improved and she has gained 1 lb at home. Her weight today is 88.5. The patient is using Stiolto Respimat at 2 puffs q.a.m., rescue albuterol inhaler 1 time a day. Rescue albuterol nebulizer 1 time a day. Guaifenesin 1200 mg p.o. b.i.d.. Flonase 1 spray each nostril once a day. Claritin p.r.n.. She says her sinuses are controlled. as prescribed, the patient is wearing 2 L at oxygen at rest with saturations 92%. The patient is using 2 L with activity with saturations ranging 66-90%. She is using 2 L bleed in at night. The patient continues to smoke and she smoked 5 cigarettes yesterday. she has quit previously and tells me she will quit again. She has nicotine patches at home and will use ease. The patient is taking THC gummies. Patient's CAT score today is 19. The patient is wearing her BiPAP with an over the mouth under the nose mask with 2 L bleed in. the patient tells me she wore the mask more faithfully and said that this did help her during the day and she felt as if she could take deeper breaths. She has had some family stressors and has not worn the machine over the last week or so. Download from [employer], and [employer], 09/04/2024 through 10/03/2024: BiPAP no rate. Inspiratory pressure 9, expiratory pressure 4. Total usage days 53%. Usage days greater than or equal to 4 hours was 40%. Average usage on days used 5 hours and 25 minutes. AHI 0.5. Apnea index 0.4, hypopnea index 0.1. Central apnea index 0.1. Median leak 0.6. Ninety-fifth percentile leak 10.9. Maximal leak 35.8. Median tidal volume 446. Median respiratory rate 17. Median minute ventilation 7.7. I interpret this download as poor compliance, adequate pressures and low leak. Of note, no usage after 09/26/2024. DATA: 09/07/2024: Home O2 assessment: Rest room air saturation 86%. Rest nasal cannula 1 L saturation 88%. Rest nasal cannula 2 L saturation 91%. Exercise nasal cannula 2 L saturation 90%. Patient requires 2 L with rest and 2 L with activity. 09/07/24: Patient wore her home BiPAP no rate, IPAP 9, EPAP 4 and 2 L bleed in with an over the mouth under the nose mask. She said she wore the mask for 6-1/2 hours and slept well and feels refreshed this morning. Overnight oximetry on these settings with recording duration of 6 hours and 52 minutes, average saturation 92%. Low saturation 87%. Time with saturation less than or equal to 88% was 3 minutes. Oxygen desaturation index 0.6. Patient had ABG at the end of the night on these settings with a pH of 7.40/52/64. 08/31/24: EXAMINATION: CTA chest PE protocol DATE: 08/31/2024 11:02 INDICATION: Shortness of breath TECHNIQUE: Computed tomography (CT) pulmonary angiogram of the chest was performed with 100 mL Omnipaque-350 intravenous contrast. Additional 3D reconstructions utilizing coronal maximum intensity projection (MIP) were performed. Automated exposure control and iterative reconstruction technique were employed. The dose-length product was 151.66 mGy-cm. COMPARISON: 08/02/2024 and 12/08/2023 FINDINGS: No pulmonary embolism. Severe emphysema with chronic partially calcified by apical pleural-parenchymal scarring. There is been some progression of low-attenuation fluid/mucus within several of the cystic airspace in the right upper lobe which are new since 12/08/2023 consistent with pneumonia. Unchanged chronic reticulonodular opacities with a few small calcified nodules in the basilar right middle lobe and lingula consistent with sequela of chronic pneumonia. No pleural effusion. Heart size is normal. Atherosclerotic coronary artery calcific lesion. No pericardial effusion. Thoracic aorta is normal in caliber. No pathologically enlarged thoracic lymphadenopathy. 1 cm cyst and 13 x 5 x 3 mm nonobstructing stone at the upper pole the left kidney. There is scattered cortical scarring in the right kidney consistent with sequela of prior infection or infarction. Additional 2 mm nonobstructing stone at the lower pole of the right kidney. Mild thoracic spondylosis with chronic minimal anterior wedging of a few mid and lower thoracic vertebral bodies. Spinal stimulator leads which terminate at the posterior central canal at the level of T6-T7. IMPRESSION: 1. No pulmonary embolism. 2. Severe emphysema with right upper lobe pneumonia. 3. Bilateral nonobstructing nephrolithiasis. --------- 10/27/2022 EXAMINATION: CT lung screening INDICATION: Personal history of nicotine dependence, current smoker with 50 pack year history COMPARISON: 10/25/2021 FINDINGS: There is severe emphysema. There is a stable 5 mm nodule of the left upper lobe. There is stable 3 mm nodule of the right upper lobe. The lungs are free of acute opacities. No pleural effusion or pneumothorax. There is scarring and calcification of the lung apices. Calcified coronary artery atherosclerosis is noted. No pathologically enlarged thoracic lymph nodes are identified. The heart size is normal. There is mild thoracic spondylosis. IMPRESSION: 1. Lung-RADS category 2: Benign appearance or behavior. Continue annual screening with noncontrast low-dose chest CT in 12 months. 12/19/2019 PULMONARY FUNCTION TESTS Results are reliable and reproducible. Spirometry: FEV1 is 60%, moderately decreased, 1.49 L. FVC is 90% normal. Decreased FEV1% consistent with airflow obstruction. . There is a 14% increase in FEV1 with bronchodilator, 200 ml, which is significant. Lung volumes: Total lung capacity 107% normal. RV/TLC increased 48% and consistent with air trapping. Airway resistance increased 336%. Diffusion: DLCO moderately reduced 35%. Flow volume loop: Scooping of the expiratory limb. IMPRESSION: Moderate obstructive ventilatory impairment with good response to bronchodilator, air trapping, moderate diffusion impairment. This is consistent with COPD. 11/23/2019: Alpha 1 anti trypsin genotype MM. Alpha 1 anti trypsin level 160, normal. Review of Systems Review of Systems: All systems reviewed & are unremarkable except as noted in HPI and below Exam Narrative: GEN: Alert, oriented, not in distress. She has nasal cannula O2 at 2 L with saturation 93%. Friend Romi is at bedside. HEENT: pupils are equal, EOMI, symmetrical face; oral membranes dry, dentures, Mallampati II airway. NECK: Trachea is midline CHEST: Equal air entry, symmetric excursion, decreased breath sounds on right upper lung field. No wheezing. CV: Regular S1S2 no m/g/r ABD : (+) bowel sounds Extremities : no clubbing, cyanosis, or edema. PSYCH: normal thought and speech, gait is not tested Objective Data Vital Signs Vital Signs: Vital Signs - 24 hr 11/20/24 18:00 11/20/24 20:00 11/20/24 20:00 Temperature 36.6 C Pulse Rate 90 94 Respiratory Rate 17 Blood Pressure 114/56 L Pulse Oximetry 96 99 Oxygen Delivery Nasal Cannula Oxygen Flow Rate 2 11/20/24 20:00 11/20/24 20:05 11/20/24 20:05 Temperature Pulse Rate 82 79 Respiratory Rate 20 Blood Pressure Pulse Oximetry 99 Oxygen Delivery Nasal Cannula Oxygen Flow Rate 2 11/20/24 22:00 11/20/24 23:44 11/21/24 00:00 Temperature 36.6 C Pulse Rate 87 83 Respiratory Rate 17 Blood Pressure 101/56 L Pulse Oximetry 96 96 Oxygen Delivery Nasal Cannula Oxygen Flow Rate 2 11/21/24 00:00 11/21/24 01:46 11/21/24 01:56 Temperature Pulse Rate 82 95 97 Respiratory Rate 18 18 Blood Pressure Pulse Oximetry Oxygen Delivery Oxygen Flow Rate 11/21/24 02:00 11/21/24 04:00 11/21/24 04:00 Temperature 36.6 C Pulse Rate 111 H 105 H Respiratory Rate 18 Blood Pressure 117/64 Pulse Oximetry 99 99 Oxygen Delivery Nasal Cannula Oxygen Flow Rate 2 11/21/24 04:00 11/21/24 06:00 11/21/24 06:12 Temperature Pulse Rate 116 H 104 H 103 H Respiratory Rate 18 Blood Pressure Pulse Oximetry Oxygen Delivery Oxygen Flow Rate 11/21/24 06:18 11/21/24 08:00 11/21/24 08:00 Temperature 37.0 C Pulse Rate 104 H 110 H 107 H Respiratory Rate 18 18 Blood Pressure 111/49 L Pulse Oximetry 95 Oxygen Delivery Oxygen Flow Rate 11/21/24 09:18 11/21/24 10:00 11/21/24 11:45 Temperature 36.9 C Pulse Rate 122 H 110 H 106 H Respiratory Rate 16 Blood Pressure 112/58 L Pulse Oximetry 98 Oxygen Delivery Oxygen Flow Rate 11/21/24 12:00 11/21/24 14:00 11/21/24 15:00 Temperature Pulse Rate 101 H 93 88 Respiratory Rate 18 Blood Pressure Pulse Oximetry Oxygen Delivery Oxygen Flow Rate 11/21/24 15:15 11/21/24 16:00 11/21/24 16:00 Temperature 36.8 C Pulse Rate 105 H 104 H 106 H Respiratory Rate 20 18 Blood Pressure 116/50 L Pulse Oximetry 97 Oxygen Delivery Oxygen Flow Rate Intake/Output Intake/Output: Intake & Output 11/18/24 11/19/24 11/20/24 11/21/24 23:59 23:59 23:59 23:59 Intake Total 1500 1860 950 Output Total 900 900 Balance 1500 960 50 Meds/Results Medications: Active Medications Generic Name Dose Route Start Last Admin Trade Name Freq PRN Reason Stop Dose Admin Acetaminophen 650 mg 11/20/24 15:21 11/20/24 16:29 Acetaminophen 325 Mg Tablet PO 650 mg Q4H PRN Administration Mild Pain (1-3) or Fever Albuterol/Ipratropium 3 ml 11/20/24 02:00 11/21/24 15:00 Ipratropium 0.5 Mg/Albuterol Sulfate 2.5 Mg Ampul.Neb 3 Ml INHALATION 3 ml Q6HRT ALBERTA Administration Aspirin 81 mg 11/20/24 09:00 11/21/24 09:18 Aspirin 81 Mg Enteric Tablet PO 81 mg DAILY ALBERTA Administration Cyclobenzaprine HCl 5 mg 11/20/24 09:00 11/21/24 09:24 Cyclobenzaprine Hcl 5 Mg Tablet PO 5 mg Q12HR ALBERTA Administration Ferrous Sulfate 325 mg 11/20/24 09:00 11/21/24 09:18 Ferrous Sulfate [address] BY MOUTH 325 mg DAILY ALBERTA Administration Fluticasone Propionate 1 spray 11/20/24 10:25 11/21/24 11:21 Fluticasone Propionate 0.05% Na Spr 16 Gm Btl (*Bkc) NASAL 1 spray Q12HR ALBERTA Administration Gabapentin 300 mg 11/20/24 00:45 11/21/24 09:24 Gabapentin 300 Mg Capsule PO 300 mg Q12HR ALBERTA Administration Guaifenesin 1,200 mg 11/20/24 00:45 11/21/24 09:17 Guaifenesin 12 Hr 600 Mg Tabcr PO 1,200 mg Q12HR ALBERTA Administration Heparin Sodium (Porcine) 5,000 units 11/20/24 09:00 11/21/24 09:24 Heparin Sodium 5,000 Units/Ml Vial SUB-Q 5,000 units Q12HR ALBERTA Administration Cefepime HCl 2 gm/ Sodium 50 mls @ 100 mls/hr 11/20/24 10:00 11/21/24 09:12 Chloride IVPB 100 mls/hr Q12H ALBERTA Administration Azithromycin 500 mg/ Sodium 250 mls @ 250 mls/hr 11/21/24 12:00 11/21/24 14:00 Chloride IVPB 250 mls/hr DAILY ALBERTA Administration Metronidazole 500 mg in 100 mls @ 100 mls/hr 11/21/24 12:00 11/21/24 16:20 Flagyl 500 Mg/Iso Soln 100 Ml IVPB 100 mls/hr Q8H ALBERTA Administration Loratadine 10 mg 11/20/24 09:00 11/21/24 09:24 Loratadine 10 Mg Tablet PO 10 mg DAILY ALBERTA Administration Lovastatin 40 mg 11/20/24 21:00 11/20/24 20:33 Lovastatin 20 Mg Tablet PO 40 mg HS ALBERTA Administration Metoprolol Succinate 25 mg 11/20/24 09:00 11/21/24 09:18 Metoprolol Succinate Ext Rel 25 Mg Tabcr PO 25 mg DAILY ALBERTA Administration Oxycodone HCl 10 mg 11/20/24 09:00 11/21/24 09:24 Oxycodone Hcl (*Crx) 10 Mg Tab Sr 12hr PO 10 mg Q12HR ALBERTA Administration Pantoprazole Sodium 40 mg 11/20/24 09:00 11/21/24 09:18 Pantoprazole 40 Mg Tablet PO 40 mg Q12HR ALBERTA Administration Senna/Docusate Sodium 2 tab 11/20/24 00:25 11/20/24 09:14 Senna/Docusate Sodium Tablet PO 2 tab BID PRN Administration Constipation Sodium Chloride 1 spray 11/20/24 10:20 11/20/24 16:30 Saline 0.65% Jeff Soln 44 Ml Btl NASAL 1 spray Q6HR PRN Administration Congestion Solifenacin 5 mg 11/20/24 21:00 11/20/24 20:33 Solifenacin 5 Mg Tablet PO 5 mg HS ALBERTA Administration Umeclidinium/Vilanterol 1 puff 11/20/24 08:00 11/20/24 07:24 Umeclidinium/Vilanterol 62.5-25 Mcg Ellipta INHALATION 1 puff DAILYRT ALBERTA Administration Vitamin D 125 mcg 11/20/24 09:00 11/21/24 09:18 Cholecalciferol (Vitamin D3) 125 Mcg (5,000 Units) Tablet PO 125 mcg DAILY ALBERTA Administration Radiology Results: ITS Impressions Chest X-Ray 11/19/24 18:15 Impression: Marked worsening of right upper lobe pneumonia/consolidation. Underlying COPD. Chest CTA 11/19/24 20:19 Impression: Significantly worsened right upper lobe consolidation, compatible with worsening pneumonia. Element of underlying atelectasis or neoplastic disease cannot be excluded. Question where is necrotic change versus bronchiectasis within the areas of consolidation. Underlying advanced COPD/emphysema. Partially imaged probable splenomegaly. No pulmonary embolus, aortic aneurysm, or aortic dissection. Labs Labs: Laboratory Results - last 24 hr 11/20/24 11/21/24 11/21/24 03:51 03:59 10:02 WBC 6.5 RBC 2.98 L Hgb 8.8 L Hct 29.2 L MCV 98.0 MCH 29.5 MCHC 30.1 L RDW 12.5 Plt Count 205 MPV 9.4 Sodium 137 Potassium 4.3 Chloride 101 Carbon Dioxide 33 H Anion Gap 3 L BUN 7 Creatinine 0.59 L Estim Creat Clear Calc 52 Estimated GFR > 60 Glucose 119 H Calcium 9.5 Magnesium 1.7 Procalcitonin 0.2 Vancomycin Trough 7.4 L M.pneumoniae IgG Titer 1138 H
[2024-11-21] MEDS: LOVASTATIN 20 MG TABLET 40 MG PO (20:20)
[2024-11-21] MEDS: SOLIFENACIN 5 MG TABLET PO (20:20)
[2024-11-22] VITALS (31 sets, daily range): BP systolic 93–126; BP diastolic 34–54; PULSE 79–104; RESP 16–24; TEMP 36.4–37.3; O2SAT 92–100
[2024-11-22] MEDS: IPRATROPIUM 0.5 MG/ALBUTEROL SULFATE 2.5 MG AMPUL.NEB 3 ML INHALATION ×3 (02:07→20:48)
[2024-11-22 04:14] LABS: Hematocrit 29.4 % (37.0-47.0); Hemoglobin 8.9 g/dL (12.0-15.0); Mean Corpuscular HGB Conc 30.3 g/dl (32-36); Mean Corpuscular Hemoglobin 29.5 pg (26-34); Mean Corpuscular Volume 97.4 fl (80-100); Platelet Count Result 216 k/mm3 (150-375); Red Blood Count 3.02 M/mm3 (4.2-5.4); White Blood Count 6.8 K/mm3 (4.5-10.0)
[2024-11-22 04:39] LABS: Anion Gap 6 mmol/L (4-12); Blood Urea Nitrogen 12 mg/dL (7-17); Calcium 9.3 mg/dL (8.4-10.2); Carbon Dioxide 35 mmol/L (22-30); Chloride 99 mmol/L (98-107); Estimated CRCL calculation 49 ml/min; Estimated Glomerular Filt Rate > 60; Glucose 116 mg/dL (65-110); Magnesium 1.8 mg/dL (1.6-2.3); Potassium 4.8 mmol/L (3.4-5.0); Sodium 140 mmol/L (137-145)
[2024-11-22] MEDS: metroNIDAZOLE 500 MG/ISO 100ML 500 MG/100 ML BAG 100 MG IVPB ×2 (05:52→16:12)
[2024-11-22] MEDS: UMECLIDINIUM/VILANTEROL 62.5-25 MCG ELLIPTA 1 PUFF INHALATION (07:58)
[2024-11-22] MEDS: CYCLOBENZAPRINE HCL 5 MG TABLET PO ×2 (09:33→21:12)
[2024-11-22] MEDS: PANTOPRAZOLE 40 MG TABLET PO ×2 (09:33→21:13)
[2024-11-22] MEDS: CHOLECALCIFEROL (VITAMIN D3) 125 MCG (5,000 UNITS) TABLET PO (09:33)
[2024-11-22] MEDS: METOPROLOL SUCCINATE EXT REL 25 MG TABCR PO (09:33)
[2024-11-22] MEDS: LORATADINE 10 MG TABLET PO (09:33)
[2024-11-22] MEDS: guaiFENesin 12 HR 600 MG TABCR 1200 MG PO ×2 (09:33→21:14)
[2024-11-22] MEDS: FERROUS SULFATE 325 MG TABLET DR BY MOUTH (09:33)
[2024-11-22] MEDS: oxyCODONE HCL (*CRX) 10 MG TAB SR 12HR PO ×2 (09:33→21:12)
[2024-11-22] MEDS: GABAPENTIN 300 MG CAPSULE PO ×2 (09:33→21:13)
[2024-11-22] MEDS: FLUTICASONE PROPIONATE 0.05% NA SPR 16 GM BTL (*BKC) 1 SPRAY NASAL ×2 (09:34→21:11)
[2024-11-22] MEDS: AZITHROMYCIN IV 500 MG in SODIUM CHLORIDE 0.9% IV 250 ML IVPB (09:34)
[2024-11-22] MEDS: CEFEPIME 2 GM in SODIUM CHLORIDE 0.9% IV 50 ML 100 ML IVPB (11:34)
[2024-11-22] MEDS: ALBUTEROL SULFATE NEB 2.5 MG/3 ML INH INHALATION (11:34)
[2024-11-22] MEDS: LACTATED RINGERS 1,000 ML 150 ML IV CONT (12:49)
--- NOTE | 2024-11-22 13:37 | S_PTH ---
PATIENT: Melyssa Mccall LOC: [facility] U#:[id number] AGE/SX: 69/F ROOM: 232 RE11/19/[address]: Arnel Watts MD : [id number] BED: 01 DIS: 11/23/2024 SPEC #: [id number] RECD: 11/23/24 07:09 STATUS: IKER BHAVANA #: [id number] SRI: 11/22/24 13:[address]: Melissa Tracey DEPT: [facility] Surgical RECD BY: Sapna Casiano ENTERED: 11/23/24 07:19 SP TYPE: Surgical OTHR DR: DO Ivelisse Khan DO Tissues: A - Biopsy B - Bronchial Brushing C - Bronchial Washing D - Coyle Tip Procedures: Hematoxylin and Eosin Stain Cell Block PAP Stain Gross and Microscopic Level 4 Cytopathology Cytospin
--- NOTE | 2024-11-22 13:47 | WPDANESEPPF ---
Anes - Initial Pre Proc Eval Procedure: Operation Date: 11/22/24 13:30 Proposed Procedures p Flexible Bronchoscopy - Melissa Tracey MD Date/Time: 11/22/24 13:47 Surgeon: Ivelisse Man DO Pre Op Diagnosis: Acute & chronic hypoxic respiratory failure, Pneum Patient Data Age: 69 Gender: F Height: 1.7 m Weight: 43.7 kg Last Vital Signs Temp 99.2 F 11/22/24 12:43 Pulse 100 11/22/24 12:43 Resp 20 11/22/24 12:43 BP 104/52 L 11/22/24 12:43 Pulse Ox 92 11/22/24 12:43 O2 Del Method Nasal Cannula 11/22/24 12:43 O2 Flow Rate 3 11/22/24 12:43 Allergies Allergy/AdvReac Type Severity Reaction Status Date / Time Penicillins Allergy Severe Anaphylaxis Verified 11/22/24 12:42 meperidine Allergy Intermediate Itching Verified 11/22/24 12:42 sulfamethoxazole (From Allergy Intermediate Mouth Verified 11/22/24 12:42 Bactrim) burning/redness trimethoprim (From Bactrim) Allergy Intermediate Mouth Verified 11/22/24 12:42 burning/redness mirtazapine AdvReac Mild Headache Verified 11/22/24 12:42 Home Medications ?Medication ?Instructions ?Recorded ?Confirmed ?Type aspirin 81 mg tablet,delayed 81 mg PO DAILY 06/02/19 11/19/24 History release (Adult Aspirin Regimen) cyclobenzaprine 5 mg tablet 5 mg PO Q12H 01/05/20 11/19/24 History oxycodone myristate 13.5 mg 13.5 mg PO Q12H 11/19/21 11/19/24 History capsule sprinkle extend release 12hr(DON'T CRUSH) (Xtampza ER) solifenacin 10 mg tablet (Vesicare) 5 mg PO HS 02/04/23 11/19/24 History cholecalciferol (vitamin D3) 125 125 mcg PO DAILY 07/24/23 11/19/24 History mcg (5,000 unit) tablet (Vitamin D3) guaifenesin 600 mg tablet, 1,200 mg PO Q12H 07/24/23 11/19/24 History extended release 12 hr (Mucinex) loratadine 10 mg tablet 10 mg PO DAILY 07/24/23 11/19/24 History albuterol sulfate 90 mcg/actuation See Rx Instructions .Route 03/15/24 11/19/24 History aerosol inhaler .COMPLEX PRN Shortness Of Breath Or Wheezing omeprazole 40 mg capsule,delayed 40 mg PO DAILY #90 caps 06/02/24 11/19/24 Rx release albuterol sulfate 2.5 mg/3 mL 2.5 mg (3 mL) inhalation Q4-6H PRN 06/07/24 11/19/24 Rx (0.083 %) solution for nebulization shortness of breath or wheezing #180 mL tiotropium 2.5 mcg-olodaterol 2.5 See Rx Instructions .Route 06/20/24 11/19/24 Rx mcg/actuation mist for inhalation .COMPLEX #4 grams (Stiolto Respimat) lovastatin 40 mg tablet 40 mg PO HS 08/02/24 11/19/24 History gabapentin 300 mg capsule 300 mg PO Q12H #180 caps 08/29/24 11/19/24 Rx ferrous sulfate 325 mg (65 mg See Rx Instructions .Route 10/17/24 11/19/24 Rx iron) tablet (FeroSul) .COMPLEX #30 tabs sennosides 8.6 mg-docusate sodium 2 tab-cap (2 x 8.6-50 mg) PO BID 11/07/24 11/19/24 Rx 50 mg tablet (Senokot-S) PRN Constipation #120 tabs fluticasone propionate 50 See Rx Instructions .Route 11/16/24 11/19/24 Rx mcg/actuation nasal .COMPLEX #48 grams spray,suspension metoprolol succinate 25 mg See Rx Instructions .Route 11/16/24 11/19/24 Rx tablet,extended release 24 hr .COMPLEX #90 tabs Laboratory Tests 11/20/24 11/22/24 03:51 04:03 WBC 6.8 K/mm3 (4.5-10.0) RBC 3.02 L M/mm3 (4.2-5.4) Hgb 8.9 L g/dL (12.0-15.0) Hct 29.4 L % (37.0-47.0) MCV 97.4 fl (80-100) MCH 29.5 pg (26-34) MCHC 30.3 L g/dl (32-36) RDW 12.5 % (11.5-14.5) Plt Count 216 k/mm3 (150-375) MPV 9.5 fl (7.4-10.4) Sodium 140 mmol/L (137-145) Potassium 4.8 mmol/L (3.4-5.0) Chloride 99 mmol/L (98-107) Carbon Dioxide 35 H mmol/L (22-30) Anion Gap 6 mmol/L (4-12) BUN 12 D mg/dL (7-17) Creatinine 0.64 L mg/dL (0.7-1.0) Estim Creat Clear Calc 49 ml/min Estimated GFR > 60 (59 - ) Glucose 116 H mg/dL (65-110) Calcium 9.3 mg/dL (8.4-10.2) Magnesium 1.8 mg/dL (1.6-2.3) M.pneumoniae IgG Titer 1138 H U/mL (0-99) Patient hx anesthesia problems: none Family hx anesthesia problems: none Results Review: All pre-operative results and documents have been reviewed as part of the pre-operative evaluation. [facility] Past Medical History Medical History Vitamin D deficiency B12 deficiency Mixed incontinence Liana esophagitis Peripheral neuropathy Raynaud disease OSWALD (iron deficiency anemia) Osteopenia RLS (restless legs syndrome) Chronic narcotic use On home O2 Chronic sinusitis Olecranon bursitis, left elbow PSVT (paroxysmal supraventricular tachycardia) Kidney stones Fibromyalgia Rheumatoid arthritis Constipation IBS (irritable bowel syndrome) GERD (gastroesophageal reflux disease) Lumbar radiculopathy Esophageal stricture Status post dilatation ILD (interstitial lung disease) Small amount of interstitial lung disease was seen on base of lungs on chest CT 03/25/2018 which was an abdomen and pelvis CT Essential hypertension Collagen vascular disease Hyperlipidemia, unspecified Anxiety 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, patient unsure of this diagnosis COPD (chronic obstructive pulmonary disease) With severe obstructive disease noted on recent PFTs October 2024 with significant decompensation compared to prior study Tobacco abuse Quit 08/2024 Surgical History Surgical History History of esophagogastroduodenoscopy (EGD) With history of esophageal dilatation of History of colonoscopy with polypectomy History of partial hysterectomy Status post insertion of spinal cord stimulator History of bladder suspension procedure History of appendectomy History of lumbar surgery Spinal cord stimulator implanted 05/23/21 Family History Family History Mother Patient's mother is , Onset Age: 72 Sibling Carcinoma of colon Ovarian cancer Lung cancer Rectal cancer Family history of malignant neoplasm of breast in first degree relative Father Brain aneurysm Cerebrovascular accident, Onset Age: 54 Other Arthritis COPD (chronic obstructive pulmonary disease) High cholesterol Hypertension Lung disease Neuropathy Social History Social History Social History: The patient reports that she has been since 2007 and lives alone. She has 1 son who lives in [place]. She quit smoking in August 2024 of months prior to that she smoked a pack of cigarettes per day for close to 60 years. She denies any significant alcohol use. Code status: DNR/DNI (she would be okay with pressors if needed for blood pressure support) Healthcare power of commercial real estate attorney: Cole (son) or Romi (friend) Smoking packs per day: 1 Smoking cigarettes per day: 20.0 Years smoked: 60 Smoking pack-years: 60.00 Smoking status: Former smoker Second hand tobacco smoke exposure: Yes Smoking end date: 08/02/24 Additional smoking assessment comments: Using Nicotine patches AT TIMES Alcohol intake: never Substance use: never Substance use type: does not use Do You Feel Safe in your Home?: Yes Lack of Transportation: No Lack of Food: Never True Current Housing: I Have Housing Concerned About Future Housing: No Difficulty Paying Gas/Electric Bills: No Difficulty Paying for Meds: No Currently Unemployed: No Education: Trade/Vocational Certificate Difficulty w/ Childcare or Family Care: No Living arrangements: alone Occupation/Education: retired Gender identity (if verbalized by the patient): Female Spiritual care concerns: No Anes - Eval Final PreProcedure Day of Procedure 11/22/24 13:47 Patient weight: normal Lungs: normal air movement Airway: Mallampati scale class II and special considerations (Edentulous. ) Neurological: alert and oriented Last oral intake: >/= 8 hours ASA classification: III Emergent: no Anesthetic plan: proceed Anesthesia type and monitoring: general ETT and standard monitoring Results Review: All pre-operative results and documents have been reviewed as part of the pre-operative evaluation. Complicated pt, now for therapeutic bronch. RUL inf w consolidation. Informed Consent: The patient's anesthetic plan and its attendant risks and benefits were discussed with the patient/family/POA. Questions were solicited and answers provided to the satisfaction of the patient/family/POA.
[2024-11-22] MEDS: LIDOCAINE 2% JELLY 5 ML TUBE 1 APPLIC MUCOUS MEM (14:02)
[2024-11-22] MEDS: LIDO 1%/EPINEPHRINE/PF 1:200,000 30 ML VIAL 8 ML XX (14:26)
[2024-11-22] MEDS: SODIUM CHLORIDE 0.9% IV 500 ML BAG 20 ML IRRIGATION (14:32)
--- NOTE | 2024-11-22 16:34 | PM.IMPN ---
Progress Note: A&P Assessment and Plan (1) Persistent pneumonia: Code(s): J18.9 - Pneumonia, unspecified organism Status: Acute (2) COPD (chronic obstructive pulmonary disease): Qualifiers: COPD type: COPD with acute lower respiratory infection Qualified Code(s): J44.0 - Chronic obstructive pulmonary disease with (acute) lower respiratory infection Code(s): J44.9 - Chronic obstructive pulmonary disease, unspecified Status: Acute (3) Chronic respiratory failure with hypoxia and hypercapnia: Code(s): J96.11 - Chronic respiratory failure with hypoxia; J96.12 - Chronic respiratory failure with hypercapnia Status: Acute (4) Acute respiratory alkalosis: Code(s): E87.3 - Alkalosis Status: Acute (5) Hepatocellular carcinoma determined by biopsy of liver: Code(s): C22.0 - Liver cell carcinoma Status: Acute (6) Diarrhea: Qualifiers: Diarrhea type: unspecified type Qualified Code(s): R19.7 - Diarrhea, unspecified Code(s): R19.7 - Diarrhea, unspecified Status: Acute (7) Acute hyponatremia: Code(s): E87.1 - Hypo-osmolality and hyponatremia Status: Acute (8) Pulmonary cachexia due to chronic obstructive pulmonary disease: Code(s): R64 - Cachexia; J44.9 - Chronic obstructive pulmonary disease, unspecified Status: Acute (9) Severe protein-calorie malnutrition: Code(s): E43 - Unspecified severe protein-calorie malnutrition Status: Acute (10) History of tobacco abuse: Code(s): Z87.891 - Personal history of nicotine dependence Status: Acute Plan Patient presented back to the hospital with worsening cough and shortness of breath in the setting of chronic hypoxic hypercapnic respiratory failure and COPD with recent pneumonia. Patient imaging demonstrates worsening infiltrate compared to prior imaging despite completing antibiotic therapy with standard coverage for community-acquired pneumonia. The patient has had persistent pneumonia findings and concern for possible underlying malignancy is still not completely ruled out even with recent PET scan given poor FDG uptake of her hepatocellular carcinoma on PET scan. However given significant worsening in imaging I feel safer to broaden the patient's antibiotic coverage from typical community-acquired coverage up to cefepime and vancomycin. Blood cultures have been obtained and are pending. Will place patient on scheduled nebulizer treatments. She is stable on her home O2 and actually has acute respiratory alkalosis off setting her chronic hypercapnic respiratory failure. Her pCO2 is actually normal at 41 compared to her baseline values of upper 40s to [address] patient on scheduled DuoNeb treatments. Sputum culture and Gram stain have been ordered. Will also check urine Legionella and pneumococcal antigen as well as mycoplasma PCR. Will consult pulmonology for further recommendations. Will check CBC in a.m.. Patient has been having diarrhea since her last hospitalization. Will check C diff PCR to rule out infectious colitis. Patient does have some acute hyponatremia. There may be some component of mild volume depletion given recent diarrhea. Patient did receive 30 mL/kilos fluid bolus in the ER. Will repeat electrolyte panel in a.m. and decide on further fluid administration depending on results. Patient has chronic cachexia likely due to a combination of pulmonary cachexia and protein calorie malnutrition. Her weight is stable compared to last hospitalization. Will check calorie count and provide nutritional supplements. patient is 69 female with history of severe COPD and chronic respiratory failure on home oxygen, presented to the ER with c/o shortness of breath, productive cough, fever, and chills, chest x-ray showed marked worsening of right upper lobe pneumonia/consolidation to further evaluate patient had CTA of chest which was no pulmonary embolus, aortic aneurysm, or aortic dissection. patient is being treated with zithromax, and Cefepime, patient will be seen by Chuck Wagon Driver and further recommendation to follow. patient is also found to have hepatocellular carcinoma, recently had PET scan, patient is seen by dry cans operator and oncologist. patient was seen by her in service education teacher and reviewed her CT scan of the chest which showed patient pneumonia and consolidation are worsening compared earlier this month on November 01, agreed with current treatment plan with Cefepime, further ordered chest PT and pulmonary toilet, also being treated with duo neb, today patient had bronchoscopy to clear mucus plugs from patient lungs discussed with the in service education teacher, feels she still has lot of mucus, and may need further treatement and recommended patient may benefit going to Tertiary care hospital such [facility], the in service education teacher will communicate with patient's oncologist for possible transfer to [facility], patient stats she feels much better compared to when she arrived, will continue to monitor and further recommendation to follow. Subjective Date/time seen: 11/22/24 16:34 Interval history: Worsening shortness of breath and cough H&P-Narrative: 69-year-old female with extensive past medical history, including but not limited to, recent diagnosis of hepatocellular carcinoma, severe obstructive lung disease on chronic home O2 2 L with recent smoking cessation, iron deficiency anemia, chronic severe protein calorie malnutrition and GERD with prior esophageal stricture requiring dilatation who presented to the ER with worsening cough and shortness of breath. Patient reports that her cough is always productive of yellow to greenish sputum. She reported that after recent hospitalization (11/02/2024 through 11/07/2024) her shortness of breath and cough had improved slightly. But over the last 2 or 3 days she has had worsening cough and shortness of breath. Her sputum production remains the same. She has been having increasing hot flashes and chills which she presumes is due to fever but she did not check her temperature. She was afebrile in the ER. She denies any chest pain or palpitations but did have sinus tachycardia in the ER with heart rate ranging between the low 100s up to 130. She received 30 mL/kilos fluid bolus in the ER with resolution of her tachycardia. Her flu RSV and COVID PCR was negative. Chest x-ray demonstrated worsening right upper lobe pneumonia/consolidation with chronic underlying COPD pattern. With significant worsening in in findings compared to her admission chest x-ray previously on 11/01/2024. Given her recurrent pneumonia CTA was obtained in the ER which demonstrated significantly worsening right upper lobe consolidation compatible with worsening pneumonia with element of underlying atelectasis or neoplasm not excluded. Possible necrotic changes verses bronchiectasis within the areas of consolidation with underlying advanced COPD/emphysema. Imaging also demonstrated probable splenomegaly. The patient reports that she had her outpatient PET scan performed but does not know the results. On my review of the chart patient her PET scan on 11/15/2024 demonstrated biopsied mass of the right hepatic lobe essentially indiscernible on both noncontrast CT images as well as PET scan images indicating a relatively low degree of FDG uptake which would decreased sensitivity for assessment of metastatic disease. PET scan also demonstrated multifocal pneumonia right lung consolidation involving large portion of the right upper lobe with multiple mildly FDG avid fit right hilar and mediastinal lymph nodes which given distribution likely represent reactive lymph nodes in the setting of right pneumonia with recommended 3 month follow-up noncontrast CT to follow. And diffuse bone marrow uptake most likely physiologic given absence of associated lytic or blastic bone lesions. She has not yet had follow-up with Dr. Gipson from Oncology. She does follow with pulmonology and did get the results of her liver biopsy which identified hepatocellular carcinoma from Dr. Tracey. She has chronic severe protein calorie malnutrition but states that her appetite has remained relatively good for her. She has had onset of diarrhea since her last hospitalization and reports loose watery stools any time she eats anything. She denies any bloody stools are mucousy stools. She denies any abdominal pain. She feels like she empties her bladder completely and denies dysuria or changes in urinary frequency. patient is 69 female with history of severe COPD and chronic respiratory failure on home oxygen, presented to the ER with c/o shortness of breath, productive cough, fever, and chills, chest x-ray showed marked worsening of right upper lobe pneumonia/consolidation to further evaluate patient had CTA of chest which was no pulmonary embolus, aortic aneurysm, or aortic dissection. patient is being treated with zithromax, and Cefepime, patient will be seen by Chuck Wagon Driver and further recommendation to follow. patient is also found to have hepatocellular carcinoma, recently had PET scan, patient is seen by dry cans operator and oncologist. patient was seen by her in service education teacher and reviewed her CT scan of the chest which showed patient pneumonia and consolidation are worsening compared earlier this month on November 01, agreed with current treatment plan with Cefepime, further ordered chest PT and pulmonary toilet, also being treated with duo neb, today patient had bronchoscopy to clear mucus plugs from patient lungs discussed with the in service education teacher, feels she still has lot of mucus, and may need further treatement and recommended patient may benefit going to Tertiary care hospital such [facility], the in service education teacher will communicate with patient's oncologist for possible transfer to [facility], patient stats she feels much better compared to when she arrived, will continue to monitor and further recommendation to follow. Review of Systems Review of Systems: 12 systems were reviewed with pertinent positives and negatives per HPI. Except as documented in the HPI, all other systems were reviewed and are negative. All systems reviewed & are unremarkable except as noted in HPI and below Exam Narrative: Patient is comfortable, NAD HEENT: eyes are clear and none icteric LUNGS:CTA HEART: RR S1S2 ABD: BS+, Soft and nontender Lower extremities: no edema SKIN: nonjaundiced Neuro: grossly intact. Objective Data Vital Signs Vital Signs: Vital Signs - 24 hr 11/21/24 18:00 11/21/24 20:00 11/21/24 20:00 Temperature 36.8 C Pulse Rate 108 H 95 Respiratory Rate 18 Blood Pressure 110/46 L Pulse Oximetry 94 97 Oxygen Delivery Nasal Cannula Oxygen Flow Rate 2 11/21/24 20:00 11/21/24 20:52 11/21/24 20:52 Temperature Pulse Rate 92 95 Respiratory Rate 18 Blood Pressure Pulse Oximetry 97 Oxygen Delivery Nasal Cannula Oxygen Flow Rate 2 11/21/24 20:58 11/21/24 22:00 11/22/24 00:00 Temperature Pulse Rate 103 H 103 H Respiratory Rate 18 Blood Pressure Pulse Oximetry 97 Oxygen Delivery Nasal Cannula Oxygen Flow Rate 2 11/22/24 00:00 11/22/24 00:00 11/22/24 02:00 Temperature 36.7 C Pulse Rate 104 H 96 101 H Respiratory Rate 20 Blood Pressure 121/53 L Pulse Oximetry 94 Oxygen Delivery Oxygen Flow Rate 11/22/24 02:07 11/22/24 02:12 11/22/24 04:00 Temperature Pulse Rate 99 95 Respiratory Rate 18 18 Blood Pressure Pulse Oximetry 97 Oxygen Delivery Nasal Cannula Oxygen Flow Rate 3 11/22/24 04:00 11/22/24 04:00 11/22/24 06:00 Temperature 36.9 C Pulse Rate 96 94 88 Respiratory Rate 20 Blood Pressure 103/39 L Pulse Oximetry 95 Oxygen Delivery Oxygen Flow Rate 11/22/24 07:32 11/22/24 07:55 11/22/24 07:55 Temperature 36.9 C Pulse Rate 94 96 96 Respiratory Rate 16 20 20 Blood Pressure 102/44 L Pulse Oximetry 98 92 Oxygen Delivery Nasal Cannula Oxygen Flow Rate 2 11/22/24 08:00 11/22/24 08:05 11/22/24 09:33 Temperature Pulse Rate 96 97 102 H Respiratory Rate 20 Blood Pressure Pulse Oximetry Oxygen Delivery Oxygen Flow Rate 11/22/24 10:00 11/22/24 11:35 11/22/24 11:42 Temperature Pulse Rate 94 91 89 Respiratory Rate 20 20 Blood Pressure Pulse Oximetry Oxygen Delivery Oxygen Flow Rate 11/22/24 11:44 11/22/24 12:00 11/22/24 12:43 Temperature 36.8 C 37.3 C Pulse Rate 89 93 100 Respiratory Rate 20 20 Blood Pressure 118/54 L 104/52 L Pulse Oximetry 100 92 Oxygen Delivery Nasal Cannula Oxygen Flow Rate 3 11/22/24 14:26 11/22/24 14:36 11/22/24 14:46 Temperature 36.6 C Pulse Rate 80 79 82 Respiratory Rate 20 18 20 Blood Pressure 93/45 L 96/48 L 93/47 L Pulse Oximetry 100 100 100 Oxygen Delivery Simple Face Mask Simple Face Mask Simple Face Mask Oxygen Flow Rate 8 8 8 11/22/24 14:56 11/22/24 15:06 11/22/24 15:16 Temperature Pulse Rate 86 84 85 Respiratory Rate 20 24 H 21 H Blood Pressure 111/44 L 105/47 L 106/48 L Pulse Oximetry 100 94 99 Oxygen Delivery Room Air Simple Face Mask Simple Face Mask Oxygen Flow Rate 4 4 11/22/24 15:57 Temperature 36.4 C Pulse Rate 84 Respiratory Rate 18 Blood Pressure 102/48 L Pulse Oximetry 100 Oxygen Delivery Oxygen Flow Rate Intake/Output Intake/Output: Intake & Output 11/19/24 11/20/24 11/21/24 11/22/24 23:59 23:59 23:59 23:59 Intake Total 1500 1860 1740 300 Output Total 900 1100 1100 Balance 1500 960 640 -800 Meds/Results Medications: Active Medications Generic Name Dose Route Start Last Admin Trade Name Elq PRN Reason Stop Dose Admin Acetaminophen 650 mg 11/20/24 15:21 11/20/24 16:29 Acetaminophen 325 Mg Tablet PO 650 mg Q4H PRN Administration Mild Pain (1-3) or Fever Albuterol/Ipratropium 3 ml 11/20/24 02:00 11/22/24 14:24 Ipratropium 0.5 Mg/Albuterol Sulfate 2.5 Mg Ampul.Neb 3 Ml INHALATION Not Given Q6HRT ALBERTA Aspirin 81 mg 11/20/24 09:00 11/21/24 09:18 Aspirin 81 Mg Enteric Tablet PO 81 mg DAILY ALBERTA Administration Cyclobenzaprine HCl 5 mg 11/20/24 09:00 11/22/24 09:33 Cyclobenzaprine Hcl 5 Mg Tablet PO 5 mg Q12HR ALBERTA Administration Ferrous Sulfate 325 mg 11/20/24 09:00 11/22/24 09:33 Ferrous Sulfate [address] BY MOUTH 325 mg DAILY ALBERTA Administration Fluticasone Propionate 1 spray 11/20/24 10:25 11/22/24 09:34 Fluticasone Propionate 0.05% Na Spr 16 Gm Btl (*Bkc) NASAL 1 spray Q12HR ALBERTA Administration Gabapentin 300 mg 11/20/24 00:45 11/22/24 09:33 Gabapentin 300 Mg Capsule PO 300 mg Q12HR ALBERTA Administration Guaifenesin 1,200 mg 11/20/24 00:45 11/22/24 09:33 Guaifenesin 12 Hr 600 Mg Tabcr PO 1,200 mg Q12HR ALBERTA Administration Heparin Sodium (Porcine) 5,000 units 11/20/24 09:00 11/21/24 20:20 Heparin Sodium 5,000 Units/Ml Vial SUB-Q 5,000 units Q12HR ALBERTA Administration Cefepime HCl 2 gm/ Sodium 50 mls @ 100 mls/hr 11/20/24 10:00 11/22/24 11:34 Chloride IVPB 100 mls/hr Q12H ALBERTA Administration Azithromycin 500 mg/ Sodium 250 mls @ 250 mls/hr 11/21/24 12:00 11/22/24 09:34 Chloride IVPB 250 mls/hr DAILY ALBERTA Administration Metronidazole 500 mg in 100 mls @ 100 mls/hr 11/21/24 22:00 11/22/24 16:12 Flagyl 500 Mg/Iso Soln 100 Ml IVPB 100 mls/hr Q8H ALBERTA Administration Loratadine 10 mg 11/20/24 09:00 11/22/24 09:33 Loratadine 10 Mg Tablet PO 10 mg DAILY ALBERTA Administration Lovastatin 40 mg 11/20/24 21:00 11/21/24 20:20 Lovastatin 20 Mg Tablet PO 40 mg HS ALBERTA Administration Metoprolol Succinate 25 mg 11/20/24 09:00 11/22/24 09:33 Metoprolol Succinate Ext Rel 25 Mg Tabcr PO 25 mg DAILY ALBERTA Administration Oxycodone HCl 10 mg 11/20/24 09:00 11/22/24 09:33 Oxycodone Hcl (*Crx) 10 Mg Tab Sr 12hr PO 10 mg Q12HR ALBERTA Administration Pantoprazole Sodium 40 mg 11/20/24 09:00 11/22/24 09:33 Pantoprazole 40 Mg Tablet PO 40 mg Q12HR ALBERTA Administration Senna/Docusate Sodium 2 tab 11/20/24 00:25 11/20/24 09:14 Senna/Docusate Sodium Tablet PO 2 tab BID PRN Administration Constipation Sodium Chloride 1 spray 11/20/24 10:20 11/20/24 16:30 Saline 0.65% Jeff Soln 44 Ml Btl NASAL 1 spray Q6HR PRN Administration Congestion Solifenacin 5 mg 11/20/24 21:00 11/21/24 20:20 Solifenacin 5 Mg Tablet PO 5 mg HS ALBERTA Administration Umeclidinium/Vilanterol 1 puff 11/20/24 08:00 11/22/24 08:00 Umeclidinium/Vilanterol 62.5-25 Mcg Ellipta INHALATION Not Given DAILYRT ALBERTA Vitamin D 125 mcg 11/20/24 09:00 11/22/24 09:33 Cholecalciferol (Vitamin D3) 125 Mcg (5,000 Units) Tablet PO 125 mcg DAILY ALBERTA Administration Radiology Results: ITS Impressions Chest CTA 11/19/24 20:19 Impression: Significantly worsened right upper lobe consolidation, compatible with worsening pneumonia. Element of underlying atelectasis or neoplastic disease cannot be excluded. Question where is necrotic change versus bronchiectasis within the areas of consolidation. Underlying advanced COPD/emphysema. Partially imaged probable splenomegaly. No pulmonary embolus, aortic aneurysm, or aortic dissection. Chest X-Ray 11/22/24 15:28 IMPRESSION: Increased ground glass opacities in right lung which may represent mild edema overlying chronic right upper and mid lung consolidation and severe emphysematous change. Likely small right pleural effusion. Labs Labs: Laboratory Results - last 24 hr 11/22/24 04:03 WBC 6.8 RBC 3.02 L Hgb 8.9 L Hct 29.4 L MCV 97.4 MCH 29.5 MCHC 30.3 L RDW 12.5 Plt Count 216 MPV 9.5 Sodium 140 Potassium 4.8 Chloride 99 Carbon Dioxide 35 H Anion Gap 6 BUN 12 D Creatinine 0.64 L Estim Creat Clear Calc 49 Estimated GFR > 60 Glucose 116 H Calcium 9.3 Magnesium 1.8 Quality VTE Prophylaxis VTE prophylaxis: pharmacologic ordered (Heparin 5000 units subQ q.12h.)
[2024-11-22 17:28] LABS: Appearance Bronchial Fluid Turbid; Color Bronchial Fluid Red; Source Bronchial Fluid Bronchial Washings
[2024-11-22 17:29] LABS: Eosinophils Bronchial Fluid 1 %; Lymphocytes Bronchial Fluid 19 %; Macrophages Bronchial Fluid 4; Monocytes Bronchial Fluid 2 %; Neutrophils Bronchial Fluid 71 %; Other Cells Bronchial Fluid 3 %
[2024-11-22] MEDS: SOLIFENACIN 5 MG TABLET PO (21:12)
[2024-11-22] MEDS: LOVASTATIN 20 MG TABLET 40 MG PO (21:28)
[2024-11-22] MEDS: ACETAMINOPHEN 325 MG TABLET 650 MG PO (23:45)
[2024-11-23] VITALS (17 sets, daily range): BP systolic 94–140; BP diastolic 35–79; PULSE 50–97; RESP 18–24; TEMP 36.3–36.7; O2SAT 91–100
[2024-11-23] MEDS: IPRATROPIUM 0.5 MG/ALBUTEROL SULFATE 2.5 MG AMPUL.NEB 3 ML INHALATION ×3 (01:48→14:01)
[2024-11-23 03:58] LABS: Hematocrit 28.3 % (37.0-47.0); Hemoglobin 8.5 g/dL (12.0-15.0); Mean Corpuscular HGB Conc 30.0 g/dl (32-36); Mean Corpuscular Hemoglobin 29.4 pg (26-34); Mean Corpuscular Volume 97.9 fl (80-100); Platelet Count Result 221 k/mm3 (150-375); Red Blood Count 2.89 M/mm3 (4.2-5.4); White Blood Count 6.2 K/mm3 (4.5-10.0)
[2024-11-23 04:09] LABS: Anion Gap 2 mmol/L (4-12); Blood Urea Nitrogen 11 mg/dL (7-17); Calcium 9.3 mg/dL (8.4-10.2); Carbon Dioxide 37 mmol/L (22-30); Chloride 96 mmol/L (98-107); Estimated CRCL calculation 44 ml/min; Estimated Glomerular Filt Rate > 60; Glucose 108 mg/dL (65-110); Magnesium 2.0 mg/dL (1.6-2.3); Potassium 4.1 mmol/L (3.4-5.0); Sodium 135 mmol/L (137-145)
[2024-11-23] MEDS: UMECLIDINIUM/VILANTEROL 62.5-25 MCG ELLIPTA 1 PUFF INHALATION (08:22)
[2024-11-23] MEDS: guaiFENesin 12 HR 600 MG TABCR 1200 MG PO (08:50)
[2024-11-23] MEDS: GABAPENTIN 300 MG CAPSULE PO (08:50)
[2024-11-23] MEDS: PANTOPRAZOLE 40 MG TABLET PO (08:50)
[2024-11-23] MEDS: FERROUS SULFATE 325 MG TABLET DR BY MOUTH (08:50)
[2024-11-23] MEDS: CYCLOBENZAPRINE HCL 5 MG TABLET PO (08:51)
[2024-11-23] MEDS: CHOLECALCIFEROL (VITAMIN D3) 125 MCG (5,000 UNITS) TABLET PO (08:51)
[2024-11-23] MEDS: LORATADINE 10 MG TABLET PO (08:51)
[2024-11-23] MEDS: ASPIRIN 81 MG ENTERIC TABLET PO (08:51)
[2024-11-23] MEDS: oxyCODONE HCL (*CRX) 10 MG TAB SR 12HR PO (08:51)
[2024-11-23] MEDS: METOPROLOL SUCCINATE EXT REL 25 MG TABCR PO (08:51)
--- NOTE | 2024-11-23 08:58 | PM.PNPUL ---
Progress Note: A&P Assessment and Plan (1) Right upper lobe pneumonia: Code(s): J18.9 - Pneumonia, unspecified organism Status: Acute Assessment and Plan: She has significant worsening of RUL infiltrate since admission in early November. Bronchoscopy Nov 22 was remarkable for thick white tenacious secretions mainly in the right lung, removed, nothing specific back on micro. IgG mycoplasma titer is 1138, high, with normal mycoplasma PCR. Procalcitonin is negative. Normla WBc and no fever. CXR is not better after the bronchoscopy. She has distal secretions. If she has a post obstructive mass, I could not see it during bronchoscopy. She is not improving with pulmonary hygiene. Her chest CTs comparing November 01 and November 19 show significant worsening in the right upper l Continue pulmonary hygiene measures; I stopped antibiotics because I do not think that she has a bacterial infection. he has recurrent pneumonias. She has had an evolving right upper lobe scar/density over the last several CT scans now with a cavity. Comparing CT scans from August 31 2024, CTA, October 21 and November 01. The overall lesion is larger and more cavitary. The differential includes malignancy, fungal, non tuberculous and tuberculous mycobacteria, autoimmune, she has Raynaud's an a diagnosis of RA which can cause cavitary lung nodules. She patient has been treated for pneumonia multiple times in the last few months. This area is worse, and we will plan for a bronchoscopy to remove secretions and determine if she has something occluding the airway. (2) Chronic respiratory failure with hypoxia and hypercapnia: Code(s): J96.11 - Chronic respiratory failure with hypoxia; J96.12 - Chronic respiratory failure with hypercapnia Status: Acute Assessment and Plan: Long time use of O2 at home, long standing hypercapnia and hypoxemia however no hypercapnia this admission; Now on 4 L/min, higher than her baseline/ She has had hypercapnia dating back to 07/07/2019, her highest pCO2 on a blood gas was this past September, September 05, 2024 with a pCO2 of 70.7. She uses oxygen at home 2 L a minute at night. (3) COPD (chronic obstructive pulmonary disease): Qualifiers: COPD type: unspecified COPD Qualified Code(s): J44.9 - Chronic obstructive pulmonary disease, unspecified Code(s): J44.9 - Chronic obstructive pulmonary disease, unspecified Status: Acute Assessment and Plan: Long standing, advanced, on standard treatment at home, which will continue here with additional treatment for acute worsening due to RUL process. (4) Oxygen dependent: Code(s): Z99.81 - Dependence on supplemental oxygen Status: Acute Assessment and Plan: Long standing, now on 4 L/min (5) Pulmonary cachexia due to chronic obstructive pulmonary disease: Code(s): R64 - Cachexia; J44.9 - Chronic obstructive pulmonary disease, unspecified Status: Acute Assessment and Plan: She has pulmonary cachexia due to chronic obstructive pulmonary disease as well as interstitial lung disease. BMI 15. No appetite. Getting calorie counts. Last admission, we provided supplemental protein shakes. (6) History of tobacco abuse: Code(s): Z87.891 - Personal history of nicotine dependence Status: Acute Assessment and Plan: She is smoking 2-3 cigarettes a day, not helping. Plan Plan: Discussed possible transfer to [facility] with the patient. Dr Gipson agrees that this may be helpful, may need higher level pulmonary services. Continue pulm hygiene. Continue PEP valve and a vibratory vest t.i.d. to help move secretions. Pathology samples will not be back until at least tomorrow. I took 3 biopsies in the right lung. Subjective Date/time seen: 11/23/24 08:58 Interval history: 11/20/2024; new consult; Melyssa Mccall is 69 years old, was recently in the hospital with acute on chronic respiratory failure in the right upper lobe infiltrate. She was admitted from November 01 through November 07 feeling much better, less short of breath. She had a liver biopsy for a mass, was diagnosed with hepatocellular carcinoma from the biopsy. Results came back after she went home. I saw her at the time of discharge and she did look stable. She was much less short of breath. She tells me that she never completely returned to baseline. She has had a week of fever, chills, with coughing unable to expectorate secretions. She has also had frequent diarrhea about once every 4 hours, no blood in her stools. She has been eating normally. She complains of congestion especially in the right nostril with scant blood from the right nostril. 11/21/24; Her closest local friend Romi is here; pt had 3 uses of the vibratory vest, is using the Cornet, and has some secretions coming up. Very few. Not really the response that we wanted. Her secretions are very thick and hard to mobilize. Was smoking 2-3 cig a day prior to this admission. She feels minimally improved since admission. With a negative MRSA swab, vancomycin was stopped. She is now on IV Flagyl and oral azithromycin for atypical coverage. Her procalcitonin is 0.2, low, argues against bacterial infection altogether. On 2 L/min, saturation is 93-96%. 11/22/2024; bronchoscopy performed, see separate report. I spoke with Isa Alvarez, and Romi Faith her friend at bedside after the procedure which she tolerated well. 11/23/2024; Patient is sitting up in bed, does not feel good today. Tired. Cannot cough up any secretions. Not hungry. She feels full and does not want to eat. Her labs showed elevated IgG mycoplasma titer from November 20, level is 1138, normal is < 99. Her PCR for mycoplasma is negative. The bronch specimens are showing white blood cells but nothing definitive. She has normal WBC and no fever. I talked with her about transfer to [facility]. Dr Gipson is in agreement that we do not have any additional services that we can offer here. She may need higher level pulmonary services at [facility], and she can see her oncologic surgeon there. She has stage I hepatocellular carcinoma. DATA * 11/19/24 CTA; : 11/01/2024 Findings: There is no evidence of any significant mediastinal, hilar or axillary lymphadenopathy. There is no filling defect in the pulmonary arterial tree to suggest pulmonary embolus. There is no evidence of aortic dissection or aneurysm. There is no evidence of pleural or pericardial effusion. There is much more extensive and dense right upper lobe consolidation as compared to prior exam, compatible significant worsening of pneumonia. Elevated atelectasis or underlying neoplasm cannot be excluded. Questionable areas of necrotic change versus bronchiectasis within the areas of consolidation. There is underlying advanced COPD/emphysema with bibasilar mild interstitial prominence. Images through the upper abdomen reveal probable partially imaged splenomegaly. Impression: Significantly worsened right upper lobe consolidation, compatible with worsening pneumonia. Element of underlying atelectasis or neoplastic disease cannot be excluded. Question where is necrotic change versus bronchiectasis within the areas of consolidation. Underlying advanced COPD/emphysema. Partially imaged probable splenomegaly. No pulmonary embolus, aortic aneurysm, or aortic dissection. * 11/15/24; PET; Biopsied mass in the right hepatic lobe essentially indiscernible on both the noncontrast CT images as well as on PET imaging indicating a relatively low degree of FDG uptake which would decrease sensitivity for assessment for metastatic disease. 2. Multifocal pneumonia the right lung with consolidation and large portion of the right upper lobe. 3. Multiple mildly FDG avid right hilar and mediastinal lymph nodes which given distribution are likely reactive related to the pneumonia in the right lung. These are difficult to image on the noncontrast CT images and would consider 3 month follow-up with contrast-enhanced chest CT. 4. Diffuse mild marrow uptake most likely physiologic given the absence of associated lytic or blastic bone lesions. Prior admissions; November 01, 2024; new consult; Melyssa Mccall is a 69-year old woman followed in our practice most recent visit was 10/06/2024, she has recurrent pneumonias, hypertension, hyperlipidemia, SVT, the esophageal ring status post dilation, chronic sinusitis, COPD on home oxygen, chronic hypercapnic hypoxemic respiratory failure. She was in the hospital August 31 through September 07, has been on Levaquin and other antibiotics as an outpatient recently; she saw Dr. Newman in follow-up on October 06 and afterwards had a PFT showing a severe obstructive abnormality, hyperinflation severely decreased diffusion. Her 6 minute walk showed that she did not require supplemental oxygen at rest she does require 2 L a minute with exertion. She says that at home she felt like she just could not catch her breath. She was sweating, coughing and with each intense cough, she had pain initially in the right posterior chest and then it wraps around to the right anterior chest. She cannot expectorate her secretions very easily. Her last cigarette was 2 days prior to admission. She complains of crusting in her nose and scant bleeding from the nose. This may be due to nasal cannula O2. She does not have hemoptysis. She has lost from 137 lb to 90 lb over the last 3 years. She has diffuse aches and pains. She has had no GI symptoms, nose specific sinus complaints, no sore throat or earache. Her saturation on admission is 99% on 2 liters/minute. November 02, 2024; She had the liver biopsy, ready to eat, she feels better, less coughing. She is interested in quitting smoking, and agreed to a nicotine patch. Now on 2 L, sat is 94-97%. November 04, 2024; on 2 L saturation is 95-99%. She feels better compared to admission, not as short of breath, coughing resolved. Liver biopsy results still pending. DATA * sodium 136, potassium 4.0, chloride 98, carbon dioxide 33, BUN 14, , creatinine 0.52, glucose 111k, white blood cell count 7.2 k with 76% awga, hemoglobin 13.1 grams/deciliter, hematocrit 41.1%, platelets 202k, 3 flat troponins, serology negative for influenza A, B, RSV and SARS-CoV-2 * 11/01/[address] = She has a 2.7 cm hepatic lesion. No evidence of pulmonary embolus, aortic dissection, or aortic aneurysm. Significant worsening of patchy airspace consolidation and interstitial thickening overload, compatible significant worsening of pneumonia. Central right upper lobe airspace opacity with cavitary or cystic change is again present, which could reflect underlying neoplastic disease or treated disease versus pneumonia. Severe emphysema. document embedded image Since she was last admitted, she had a PFT & 6MW; * 10/21/24 PFT; severe obstructive abnormality, no change after albuterol; increased RV consistent with hyperinflation from an obstructive abnormality. The diffusing capacity unadjusted for hemoglobin and carboxyhemoglobin is severely decreased and remains severely decreased when adjusted for alveolar volume. In comparison to previous pulmonary function testing on 12/14/2019 there has been a greater than anticipated time dependent decrease in the FVC, FEV1 and diffusing capacity. There has been a greater than anticipated time dependent increase in the functional residual capacity and residual volume with no significant change in the total lung capacity. Clinical correlation is recommended. * 10/21/24 6MW; patient did not require supplemental oxygen at rest, require 2 L with exertion. = = = = = = = = = = = HISTORY = = = = = = = = = = = HISTORY = = = = = = = = = = = 10/27/24 phone call, Dr Newman spoke with the patient. We reviewed her CT scan results, PFT results and 6 minute walk test results. I informed her that she needs no oxygen at rest and 2 L with activity, her PFTs show a severe obstructive abnormality which is worse since 12/14/[address] scan shows worsening right upper lobe mass consistent with atelectasis, mucus or pneumonia. She continues to smoke 10-15 cigarettes a day. I have told her her disease is continuing to progress and that is absolutely necessary for her to quit. She will try to use nicotine patches and behavior modification. She does not wish for Chantix. Patient has 2-3 days of feeling hot and cold, increased mucus production worsening shortness of breath. She is not wheezing. She has no in known exposures to COVID or other sick people. the patient just finished Flagyl and Levaquin about 09/14/2024. The patient has responded to azithromycin in the past And I prescribed a Z-Pasquale. I told the patient to call us if she did not clinically improve. She voiced understanding. 10/21/24; Chest CT without Contrast: Clinical Indication: COPD Technique: Contiguous sections were acquired throughout the chest without intravenous contrast. Dose reduction technique was used on this scan by utilizing automated exposure control and iterative reconstruction technique. The dose-length product (DLP) was 140.62 mGy-cm. COMPARISON: 08/31/2024 Findings: There is no evidence of any significant mediastinal, hilar or axillary lymphadenopathy. There are extensive atherosclerotic calcifications of the aorta and coronary arteries. There is no evidence of pleural or pericardial effusion. Chronic biapical scarring and calcification noted. There is severe emphysema. Irregular consolidation with cystic or cavitary change in the right upper lobe is probably minimally increased in extent from prior exam. Images through the upper abdomen reveal no abnormalities. Impression: Irregular right upper lobe consolidation with cystic or cavitary changes, mildly increased in extent from prior exam. This is compatible with persistent and mildly worsening pneumonia. Underlying neoplastic disease not completely excluded. Severe emphysema stable biapical scarring and pleural calcification the lung apices. 10/21/24: This is a pulmonary function test with pre and post-bronchodilator spirometry, plethysmography and diffusing capacity. The test was performed and results interpreted in accordance with the 2019 and 2005 ATS/ERS Task Force guidelines respectively using the Global Lung Function Initiative-2012 reference equations. Patient demonstrated good effort and cooperation. Reproducibility criteria were met. The quality of the pre bronchodilator spirometry maneuver was Grade A and post bronchodilator spirometry maneuver was Grade A. Of note, patient was very lethargic during the testing and had to wake herself up numerous times. Findings: Spirometry: There is decreased maximal expiratory airflow at all lung volumes with concave expiratory flow tracing. The contour the inspiratory flow tracing is normal. The pre bronchodilator FVC is 2.53 L, 81% predicted. The pre bronchodilator FEV1 is 0.85 L, 36% predicted. The pre bronchodilator FEV1: FVC ratio is 34%. The post bronchodilator FVC is 2.46 L, representing a 3% decrease. The post bronchodilator FEV1 is 0.88 L, representing a 4% increase. The post bronchodilator FEV1: FVC ratio is 36%. Plethysmography: The total lung capacity is 6.36 L, 116% predicted. The functional residual capacity is 5.05 L, 160% predicted. The residual volume is 3.75 L, 159% predicted. The residual volume: Total lung capacity ratio is 59%. Diffusing capacity: The diffusing capacity unadjusted for hemoglobin and carboxyhemoglobin is 4.2, 19% predicted. The diffusing capacity adjusted for alveolar volume is 1.23, 30% predicted. In comparison to previous pulmonary function testing on 12/14/2019 the post bronchodilator FVC has decreased from 3.45 L to 2.46 L. The post bronchodilator FEV1 is decreased from 1.69 L to 0.88 L. The total lung capacity is unchanged from 6.05 L to 6.36 L. The functional residual capacity is increased from 3.94 L to 5.05 L. The residual volume has increased from 2.92 L to 3.75 L. The diffusing capacity unadjusted for hemoglobin and carboxyhemoglobin is decreased from 6.7 to 4.2. The diffusing capacity adjusted for alveolar volume has decreased from 1.50 to 1.23. Impression: There is a severe obstructive abnormality. There is no significant improvement after inhaling a single dose of albuterol. The increase in residual volume to total lung volume ratio is consistent with hyperinflation from an obstructive abnormality. The diffusing capacity unadjusted for hemoglobin and carboxyhemoglobin is severely decreased and remains severely decreased when adjusted for alveolar volume. In comparison to previous pulmonary function testing on 12/14/2019 there has been a greater than anticipated time dependent decrease in the FVC, FEV1 and diffusing capacity. There has been a greater than anticipated time dependent increase in the functional residual capacity and residual volume with no significant change in the total lung capacity. Clinical correlation is recommended. 10/21/24: This is a 6 minute walk test. The test was performed and interpreted in accordance with the 2014 ERS/ATS task force guidelines. Of note, patient use 2 liters/minute with activity and used a walker for stability Findings: The patient's resting room air oxygen saturation measured by pulse oximetry was 96%, the heart rate was 94 bpm, and the modified Naomi dyspnea score was 0. Patient ambulated using 2 L nasal cannula for 244 meters and oxygen saturation remained 92 to 93%. At the end of the study the heart rate was 100 bpm and the modified Naomi dyspnea score was 2. The patient did not have desaturations at rest on room air and did not have desaturations with ambulation on 2 L nasal cannula.. There are no prior studies for comparison. Collectively this demonstrates she has a severe obstructive abnormality consistent with GOLD grade 3 COPD, with hyperinflation and a severely decreased DLCO and compared to 12/14/2019 there has been significant decrease in the FVC, FEV1 and diffusing capacity with a significant increase in the functional residual capacity and residual volume all consistent with worsening COPD. The patient continues to smoke. The patient needs no oxygen at rest, 2 L with activity. 10/21/[address] scan of the chest from 12/08/2023, 08/02/2024, 08/31/2024 and 10/21/2024 with the radiologist. she has worsening right upper lobe low-attenuation lung nodule consistent with atelectasis, mucous retention or pneumonia in area was previous severe panlobular emphysema. Given the appearance and I rapidity of these changes it is very unlikely that this is cancer. I called the patient to discuss these results with her and left a voice message for her to call the clinic. 10/06/2024: This is the 1st pulmonary clinic encounter following inpatient hospital consultation for COPD with hypercarbic respiratory failure discharged on BiPAP. 69-year-old with a history of hypertension, hyperlipidemia, SVT, the esophageal ring status post dilation, chronic sinusitis, GOLD grade 2 group E COPD on home oxygen and NIV. Patient admitted to [facility] from 08/31/2024 through 09/07/2024 for COPD and pneumonia with hypercarbic respiratory failure. ABG on 08/02/2024 of 7.45/60/128 on 2 L nasal cannula and a blood gas on 09/06/2023 of 7.34/71/ 63 on 2 L nasal cannula. Patient was treated for COPD and pneumonia with Levaquin, Flagyl, DuoNebs and guaifenesin. For her hypercarbic respiratory failure she had [facility] insurance and was approved for BiPAP no rate, IPAP 9, EPAP 4 in 2 L bleed in. This provided adequate oxygenation by overnight oximetry and ABG at the end of the night of 7.40/52/64. She was discharged on Levaquin for 7 days, Flagyl for 5 days, Stiolto Respimat and rescue albuterol. She was to continue guaifenesin 600 p.o. b.i.d., Cornet flutter valve and home O2 assessment demonstrated she required 2 L at rest and 2 L with activity. Plan was for follow-up in the Pulmonary Clinic in 4 weeks for compliance check and to reassess her for CT scan to follow her right upper lobe infiltrate. 09/20/2024: EGD esophagitis was normal. Nonobstructing ring with dilatation. 09/29/2024: PCP office visit note. 2 L nasal cannula saturation 93%. Weight 90 lb. Respiratory medicines include guaifenesin 600 mg p.o. q.12 hours. Albuterol inhaler p.r.n., albuterol nebulizer p.r.n., Stiolto Respimat, Flonase nasal spray 1 b.i.d. p.r.n. Today she tells me that She has had no hospitalizations or exacerbations since discharge on 09/07/2024. Overall the patient has done good. For the last week she has felt well and back close to her normal. She says she is breathing at 95% back to her normal and she is walking more. She says 1 year ago she could walk 4 blocks. Before she got sick she could walk 2 blocks and since leaving the hospital she has gotten stronger and can now walk 1 block. Her appetite has improved and she has gained 1 lb at home. Her weight today is 88.5. The patient is using Stiolto Respimat at 2 puffs q.a.m., rescue albuterol inhaler 1 time a day. Rescue albuterol nebulizer 1 time a day. Guaifenesin 1200 mg p.o. b.i.d.. Flonase 1 spray each nostril once a day. Claritin p.r.n.. She says her sinuses are controlled. as prescribed, the patient is wearing 2 L at oxygen at rest with saturations 92%. The patient is using 2 L with activity with saturations ranging 66-90%. She is using 2 L bleed in at night. The patient continues to smoke and she smoked 5 cigarettes yesterday. she has quit previously and tells me she will quit again. She has nicotine patches at home and will use ease. The patient is taking THC gummies. Patient's CAT score today is 19. The patient is wearing her BiPAP with an over the mouth under the nose mask with 2 L bleed in. the patient tells me she wore the mask more faithfully and said that this did help her during the day and she felt as if she could take deeper breaths. She has had some family stressors and has not worn the machine over the last week or so. Download from [employer], and [employer], 09/04/2024 through 10/03/2024: BiPAP no rate. Inspiratory pressure 9, expiratory pressure 4. Total usage days 53%. Usage days greater than or equal to 4 hours was 40%. Average usage on days used 5 hours and 25 minutes. AHI 0.5. Apnea index 0.4, hypopnea index 0.1. Central apnea index 0.1. Median leak 0.6. Ninety-fifth percentile leak 10.9. Maximal leak 35.8. Median tidal volume 446. Median respiratory rate 17. Median minute ventilation 7.7. I interpret this download as poor compliance, adequate pressures and low leak. Of note, no usage after 09/26/2024. DATA: 09/07/2024: Home O2 assessment: Rest room air saturation 86%. Rest nasal cannula 1 L saturation 88%. Rest nasal cannula 2 L saturation 91%. Exercise nasal cannula 2 L saturation 90%. Patient requires 2 L with rest and 2 L with activity. 09/07/24: Patient wore her home BiPAP no rate, IPAP 9, EPAP 4 and 2 L bleed in with an over the mouth under the nose mask. She said she wore the mask for 6-1/2 hours and slept well and feels refreshed this morning. Overnight oximetry on these settings with recording duration of 6 hours and 52 minutes, average saturation 92%. Low saturation 87%. Time with saturation less than or equal to 88% was 3 minutes. Oxygen desaturation index 0.6. Patient had ABG at the end of the night on these settings with a pH of 7.40/52/64. 08/31/24: EXAMINATION: CTA chest PE protocol DATE: 08/31/2024 11:02 INDICATION: Shortness of breath TECHNIQUE: Computed tomography (CT) pulmonary angiogram of the chest was performed with 100 mL Omnipaque-350 intravenous contrast. Additional 3D reconstructions utilizing coronal maximum intensity projection (MIP) were performed. Automated exposure control and iterative reconstruction technique were employed. The dose-length product was 151.66 mGy-cm. COMPARISON: 08/02/2024 and 12/08/2023 FINDINGS: No pulmonary embolism. Severe emphysema with chronic partially calcified by apical pleural-parenchymal scarring. There is been some progression of low-attenuation fluid/mucus within several of the cystic airspace in the right upper lobe which are new since 12/08/2023 consistent with pneumonia. Unchanged chronic reticulonodular opacities with a few small calcified nodules in the basilar right middle lobe and lingula consistent with sequela of chronic pneumonia. No pleural effusion. Heart size is normal. Atherosclerotic coronary artery calcific lesion. No pericardial effusion. Thoracic aorta is normal in caliber. No pathologically enlarged thoracic lymphadenopathy. 1 cm cyst and 13 x 5 x 3 mm nonobstructing stone at the upper pole the left kidney. There is scattered cortical scarring in the right kidney consistent with sequela of prior infection or infarction. Additional 2 mm nonobstructing stone at the lower pole of the right kidney. Mild thoracic spondylosis with chronic minimal anterior wedging of a few mid and lower thoracic vertebral bodies. Spinal stimulator leads which terminate at the posterior central canal at the level of T6-T7. IMPRESSION: 1. No pulmonary embolism. 2. Severe emphysema with right upper lobe pneumonia. 3. Bilateral nonobstructing nephrolithiasis. --------- 10/27/2022 EXAMINATION: CT lung screening INDICATION: Personal history of nicotine dependence, current smoker with 50 pack year history COMPARISON: 10/25/2021 FINDINGS: There is severe emphysema. There is a stable 5 mm nodule of the left upper lobe. There is stable 3 mm nodule of the right upper lobe. The lungs are free of acute opacities. No pleural effusion or pneumothorax. There is scarring and calcification of the lung apices. Calcified coronary artery atherosclerosis is noted. No pathologically enlarged thoracic lymph nodes are identified. The heart size is normal. There is mild thoracic spondylosis. IMPRESSION: 1. Lung-RADS category 2: Benign appearance or behavior. Continue annual screening with noncontrast low-dose chest CT in 12 months. 12/19/2019 PULMONARY FUNCTION TESTS Results are reliable and reproducible. Spirometry: FEV1 is 60%, moderately decreased, 1.49 L. FVC is 90% normal. Decreased FEV1% consistent with airflow obstruction. . There is a 14% increase in FEV1 with bronchodilator, 200 ml, which is significant. Lung volumes: Total lung capacity 107% normal. RV/TLC increased 48% and consistent with air trapping. Airway resistance increased 336%. Diffusion: DLCO moderately reduced 35%. Flow volume loop: Scooping of the expiratory limb. IMPRESSION: Moderate obstructive ventilatory impairment with good response to bronchodilator, air trapping, moderate diffusion impairment. This is consistent with COPD. 11/23/2019: Alpha 1 anti trypsin genotype MM. Alpha 1 anti trypsin level 160, normal. Review of Systems Review of Systems: All systems reviewed & are unremarkable except as noted in HPI and below Exam Narrative: GEN: Alert, oriented, not in distress. She has nasal cannula O2 at 4 L /minute which is higher today with saturation 91-94%. She was 2 L before bronchoscopy and she was on 2 L until overnight. She looks weak and tired today. HEENT: pupils are equal, EOMI, symmetrical face; oral membranes dry NECK: Trachea is midline CHEST: Equal air entry, symmetric excursion, harsh rhonchi Right upper chest, may indicate more air movement. CV: Regular S1S2 no m/g/r ABD : (+) bowel sounds Extremities : no clubbing, cyanosis, or edema. PSYCH: normal thought and speech Objective Data Vital Signs Vital Signs: Vital Signs - 24 hr 11/22/24 09:33 11/22/24 10:00 11/22/24 11:35 Temperature Pulse Rate 102 H 94 91 Respiratory Rate 20 Blood Pressure Pulse Oximetry Oxygen Delivery Oxygen Flow Rate 11/22/24 11:42 11/22/24 11:44 11/22/24 12:00 Temperature 36.8 C Pulse Rate 89 89 93 Respiratory Rate 20 20 Blood Pressure 118/54 L Pulse Oximetry 100 Oxygen Delivery Oxygen Flow Rate 11/22/24 12:43 11/22/24 14:26 11/22/24 14:36 Temperature 37.3 C 36.6 C Pulse Rate 100 80 79 Respiratory Rate 20 20 18 Blood Pressure 104/52 L 93/45 L 96/48 L Pulse Oximetry 92 100 100 Oxygen Delivery Nasal Cannula Simple Face Mask Simple Face Mask Oxygen Flow Rate 3 8 8 11/22/24 14:46 11/22/24 14:56 11/22/24 15:06 Temperature Pulse Rate 82 86 84 Respiratory Rate 20 20 24 H Blood Pressure 93/47 L 111/44 L 105/47 L Pulse Oximetry 100 100 94 Oxygen Delivery Simple Face Mask Room Air Simple Face Mask Oxygen Flow Rate 8 4 11/22/24 15:16 11/22/24 15:57 11/22/24 20:00 Temperature 36.4 C 36.9 C Pulse Rate 85 84 92 Respiratory Rate 21 H 18 18 Blood Pressure 106/48 L 102/48 L 101/34 L Pulse Oximetry 99 100 99 Oxygen Delivery Simple Face Mask Oxygen Flow Rate 4 11/22/24 20:00 11/22/24 20:48 11/22/24 20:50 Temperature Pulse Rate 87 86 96 Respiratory Rate 20 20 Blood Pressure Pulse Oximetry 97 Oxygen Delivery Oxygen Flow Rate 2 11/22/24 21:00 11/22/24 21:26 11/22/24 22:00 Temperature Pulse Rate 94 Respiratory Rate Blood Pressure Pulse Oximetry 100 92 Oxygen Delivery Nasal Cannula Nasal Cannula Oxygen Flow Rate 3 4 11/22/24 22:00 11/22/24 23:36 11/23/24 00:00 Temperature 36.9 C Pulse Rate 90 Respiratory Rate 18 Blood Pressure 126/49 L Pulse Oximetry 99 98 92 Oxygen Delivery Nasal Cannula Nasal Cannula Oxygen Flow Rate 2 4 11/23/24 00:00 11/23/24 01:48 11/23/24 01:58 Temperature Pulse Rate 90 81 80 Respiratory Rate 20 20 Blood Pressure Pulse Oximetry Oxygen Delivery Oxygen Flow Rate 11/23/24 02:00 11/23/24 04:00 11/23/24 04:00 Temperature 36.6 C Pulse Rate 78 77 Respiratory Rate 20 Blood Pressure 94/35 L Pulse Oximetry 99 97 Oxygen Delivery Nasal Cannula Oxygen Flow Rate 4 11/23/24 04:00 11/23/24 06:00 11/23/24 08:00 Temperature 36.7 C Pulse Rate 76 75 80 Respiratory Rate 24 H Blood Pressure 114/43 L Pulse Oximetry 95 Oxygen Delivery Oxygen Flow Rate 11/23/24 08:22 11/23/24 08:22 11/23/24 08:51 Temperature Pulse Rate 96 96 92 Respiratory Rate 20 20 Blood Pressure Pulse Oximetry 91 Oxygen Delivery Nasal Cannula Oxygen Flow Rate 4 Intake/Output Intake/Output: Intake & Output 11/20/24 11/21/24 11/22/24 11/23/24 23:59 23:59 23:59 23:59 Intake Total 1860 1740 540 250 Output Total 900 1100 1600 200 Balance 960 640 -1060 50 Meds/Results Medications: Active Medications Generic Name Dose Route Start Last Admin Trade Name Freq PRN Reason Stop Dose Admin Acetaminophen 650 mg 11/20/24 15:21 11/22/24 23:45 Acetaminophen 325 Mg Tablet PO 650 mg Q4H PRN Administration Mild Pain (1-3) or Fever Albuterol/Ipratropium 3 ml 11/20/24 02:00 11/23/24 08:22 Ipratropium 0.5 Mg/Albuterol Sulfate 2.5 Mg Ampul.Neb 3 Ml INHALATION 3 ml Q6HRT ALBERTA Administration Aspirin 81 mg 11/20/24 09:00 11/23/24 08:51 Aspirin 81 Mg Enteric Tablet PO 81 mg DAILY ALBERTA Administration Cyclobenzaprine HCl 5 mg 11/20/24 09:00 11/23/24 08:51 Cyclobenzaprine Hcl 5 Mg Tablet PO 5 mg Q12HR ALBERTA Administration Ferrous Sulfate 325 mg 11/20/24 09:00 11/23/24 08:50 Ferrous Sulfate [address] BY MOUTH 325 mg DAILY ALBERTA Administration Fluticasone Propionate 1 spray 11/20/24 10:25 11/22/24 21:11 Fluticasone Propionate 0.05% Na Spr 16 Gm Btl (*Bkc) NASAL 1 spray Q12HR ALBERTA Administration Gabapentin 300 mg 11/20/24 00:45 11/23/24 08:50 Gabapentin 300 Mg Capsule PO 300 mg Q12HR ALBERTA Administration Guaifenesin 1,200 mg 11/20/24 00:45 11/23/24 08:50 Guaifenesin 12 Hr 600 Mg Tabcr PO 1,200 mg Q12HR ALBERTA Administration Heparin Sodium (Porcine) 5,000 units 11/20/24 09:00 11/23/24 08:51 Heparin Sodium 5,000 Units/Ml Vial SUB-Q 5,000 units Q12HR ALBERTA Administration Loratadine 10 mg 11/20/24 09:00 11/23/24 08:51 Loratadine 10 Mg Tablet PO 10 mg DAILY ALBERTA Administration Lovastatin 40 mg 11/20/24 21:00 11/22/24 21:28 Lovastatin 20 Mg Tablet PO 40 mg HS ALBERTA Administration Metoprolol Succinate 25 mg 11/20/24 09:00 11/23/24 08:51 Metoprolol Succinate Ext Rel 25 Mg Tabcr PO 25 mg DAILY ALBERTA Administration Oxycodone HCl 10 mg 11/20/24 09:00 11/23/24 08:51 Oxycodone Hcl (*Crx) 10 Mg Tab Sr 12hr PO 10 mg Q12HR ALBERTA Administration Pantoprazole Sodium 40 mg 11/20/24 09:00 11/23/24 08:50 Pantoprazole 40 Mg Tablet PO 40 mg Q12HR ALBERTA Administration Senna/Docusate Sodium 2 tab 11/20/24 00:25 11/20/24 09:14 Senna/Docusate Sodium Tablet PO 2 tab BID PRN Administration Constipation Sodium Chloride 1 spray 11/20/24 10:20 11/20/24 16:30 Saline 0.65% Jeff Soln 44 Ml Btl NASAL 1 spray Q6HR PRN Administration Congestion Solifenacin 5 mg 11/20/24 21:00 11/22/24 21:12 Solifenacin 5 Mg Tablet PO 5 mg HS ALBERTA Administration Umeclidinium/Vilanterol 1 puff 11/20/24 08:00 11/23/24 08:22 Umeclidinium/Vilanterol 62.5-25 Mcg Ellipta INHALATION 1 puff DAILYRT ALBERTA Administration Vitamin D 125 mcg 11/20/24 09:00 11/23/24 08:51 Cholecalciferol (Vitamin D3) 125 Mcg (5,000 Units) Tablet PO 125 mcg DAILY ALBERTA Administration Radiology Results: ITS Impressions Chest CTA 11/19/24 20:19 Impression: Significantly worsened right upper lobe consolidation, compatible with worsening pneumonia. Element of underlying atelectasis or neoplastic disease cannot be excluded. Question where is necrotic change versus bronchiectasis within the areas of consolidation. Underlying advanced COPD/emphysema. Partially imaged probable splenomegaly. No pulmonary embolus, aortic aneurysm, or aortic dissection. Chest X-Ray 11/22/24 15:28 IMPRESSION: Increased ground glass opacities in right lung which may represent mild edema overlying chronic right upper and mid lung consolidation and severe emphysematous change. Likely small right pleural effusion. Labs Labs: Laboratory Results - last 24 hr 11/20/24 11/22/24 11/23/24 11:07 14:35 03:50 WBC 6.2 RBC 2.89 L Hgb 8.5 L Hct 28.3 L MCV 97.9 MCH 29.4 MCHC 30.0 L RDW 12.5 Plt Count 221 MPV 9.1 Sodium 135 L Potassium 4.1 Chloride 96 L Carbon Dioxide 37 H Anion Gap 2 L BUN 11 Creatinine 0.70 Estim Creat Clear Calc 44 Estimated GFR > 60 Glucose 108 Calcium 9.3 Magnesium 2.0 Bronch Specimen Source Bronchial washings Bronchial Fluid Color Red Bronchial Fluid Appearance Turbid Bronchial Neutrophils 71 Bronchial Lymphocytes 19 Bronchial Monocytes 2 Bronchial Eosinophils 1 Bronchial Macrophages 4 Bronchial Other Cells 3 M. pneumoniae (PCR) Negative
[2024-11-23] MEDS: FLUTICASONE PROPIONATE 0.05% NA SPR 16 GM BTL (*BKC) 1 SPRAY NASAL (09:20)
--- NOTE | 2024-11-23 14:28 | P.TS_ITS ---
Transfer Discharge Sum: Prov Provider Date of admission: 11/19/24 21:57 Primary care physician: Grace Mondragon DO Admitting clinician: Ivelisse Man DO Consults: 11/20/24 Consult to Physician Routine Comment: Left a message with the Doctor Consulting Provider: Melissa Tracey laundry supervisor/MD group to consult: Pulmonology Reason for consultation: Persistent worsening pneumonia Has provider been notified: Yes DS: Admitting Diagnosis Discharge Date 11/23/24 Admitting Diagnosis Worsening shortness of breath and cough DS: Discharge Diagnosis Discharge Diagnosis (1) Persistent pneumonia: Code(s): J18.9 - Pneumonia, unspecified organism Status: Acute (2) COPD (chronic obstructive pulmonary disease): Qualifiers: COPD type: COPD with acute lower respiratory infection Qualified Code(s): J44.0 - Chronic obstructive pulmonary disease with (acute) lower respiratory infection Code(s): J44.9 - Chronic obstructive pulmonary disease, unspecified Status: Acute (3) Chronic respiratory failure with hypoxia and hypercapnia: Code(s): J96.11 - Chronic respiratory failure with hypoxia; J96.12 - Chronic respiratory failure with hypercapnia Status: Chronic (4) Acute respiratory alkalosis: Code(s): E87.3 - Alkalosis Status: Acute (5) Hepatocellular carcinoma determined by biopsy of liver: Code(s): C22.0 - Liver cell carcinoma Status: Acute (6) Diarrhea: Qualifiers: Diarrhea type: unspecified type Qualified Code(s): R19.7 - Diarrhea, unspecified Code(s): R19.7 - Diarrhea, unspecified Status: Acute (7) Acute hyponatremia: Code(s): E87.1 - Hypo-osmolality and hyponatremia Status: Acute (8) Pulmonary cachexia due to chronic obstructive pulmonary disease: Code(s): R64 - Cachexia; J44.9 - Chronic obstructive pulmonary disease, unspecified Status: Chronic (9) Severe protein-calorie malnutrition: Code(s): E43 - Unspecified severe protein-calorie malnutrition Status: Acute (10) History of tobacco abuse: Code(s): Z87.891 - Personal history of nicotine dependence Status: Acute Plan Patient presented back to the hospital with worsening cough and shortness of breath in the setting of chronic hypoxic hypercapnic respiratory failure and COPD with recent pneumonia. Patient imaging demonstrates worsening infiltrate compared to prior imaging despite completing antibiotic therapy with standard coverage for community-acquired pneumonia. The patient has had persistent pneumonia findings and concern for possible underlying malignancy is still not completely ruled out even with recent PET scan given poor FDG uptake of her hepatocellular carcinoma on PET scan. However given significant worsening in imaging I feel safer to broaden the patient's antibiotic coverage from typical community-acquired coverage up to cefepime and vancomycin. Blood cultures have been obtained and are pending. Will place patient on scheduled nebulizer treatments. She is stable on her home O2 and actually has acute respiratory alkalosis off setting her chronic hypercapnic respiratory failure. Her pCO2 is actually normal at 41 compared to her baseline values of upper 40s to [address] patient on scheduled DuoNeb treatments. Sputum culture and Gram stain have been ordered. Will also check urine Legionella and pneumococcal antigen as well as mycoplasma PCR. Will consult pulmonology for further recommendations. Will check CBC in a.m.. Patient has been having diarrhea since her last hospitalization. Will check C diff PCR to rule out infectious colitis. Patient does have some acute hyponatremia. There may be some component of mild volume depletion given recent diarrhea. Patient did receive 30 mL/kilos fluid bolus in the ER. Will repeat electrolyte panel in a.m. and decide on further fluid administration depending on results. Patient has chronic cachexia likely due to a combination of pulmonary cachexia and protein calorie malnutrition. Her weight is stable compared to last hospitalization. Will check calorie count and provide nutritional supplements. patient is 69 female with history of severe COPD and chronic respiratory failure on home oxygen, presented to the ER with c/o shortness of breath, productive cough, fever, and chills, chest x-ray showed marked worsening of right upper lobe pneumonia/consolidation to further evaluate patient had CTA of chest which was no pulmonary embolus, aortic aneurysm, or aortic dissection. patient is being treated with zithromax, and Cefepime, patient will be seen by [employer] and further recommendation to follow. patient is also found to have hepatocellular carcinoma, recently had PET scan, patient is seen by screen operator and oncologist. patient was seen by her garden implement mechanic and reviewed her CT scan of the chest which showed patient pneumonia and consolidation are worsening compared earlier this month on November 01, agreed with current treatment plan with Cefepime, further ordered chest PT and pulmonary toilet, also being treated with duo neb, today patient had bronchoscopy to clear mucus plugs from patient lungs discussed with the garden implement mechanic, feels she still has lot of mucus, and may need further treatement and recommended patient may benefit going to Tertiary care hospital such [facility], the garden implement mechanic will communicate with patient's oncologist for possible transfer to [facility], patient stats she feels much better compared to when she arrived, will continue to monitor and further recommendation to follow. Transfer Discharge Sum: Med Medications Active and Home Medications: Home Medications aspirin 81 mg tablet,delayed release (Adult Aspirin Regimen) 81 mg PO DAILY 06/02/19 [History Confirmed 11/19/24] cyclobenzaprine 5 mg tablet 5 mg PO Q12H 01/05/20 [History Confirmed 11/19/24] oxycodone myristate 13.5 mg capsule sprinkle extend release 12hr(DON'T CRUSH) (Xtampza ER) 13.5 mg PO Q12H 11/19/21 [History Confirmed 11/19/24] solifenacin 10 mg tablet (Vesicare) 5 mg PO HS 02/04/23 [History Confirmed 11/19/24] cholecalciferol (vitamin D3) 125 mcg (5,000 unit) tablet (Vitamin D3) 125 mcg PO DAILY 07/24/23 [History Confirmed 11/19/24] guaifenesin 600 mg tablet, extended release 12 hr (Mucinex) 1,200 mg PO Q12H 07/24/23 [History Confirmed 11/19/24] loratadine 10 mg tablet 10 mg PO DAILY 07/24/23 [History Confirmed 11/19/24] albuterol sulfate 90 mcg/actuation aerosol inhaler See Rx Instructions .Route .COMPLEX PRN Shortness Of Breath Or Wheezing 03/15/24 [History Confirmed 11/19/24] omeprazole 40 mg capsule,delayed release 40 mg PO DAILY #90 caps 06/02/24 [Rx Confirmed 11/19/24] albuterol sulfate 2.5 mg/3 mL (0.083 %) solution for nebulization 2.5 mg (3 mL) inhalation Q4-6H PRN shortness of breath or wheezing #180 mL 06/07/24 [Rx Confirmed 11/19/24] tiotropium 2.5 mcg-olodaterol 2.5 mcg/actuation mist for inhalation (Stiolto Respimat) See Rx Instructions .Route .COMPLEX #4 grams 06/20/24 [Rx Confirmed 11/19/24] lovastatin 40 mg tablet 40 mg PO HS 08/02/24 [History Confirmed 11/19/24] gabapentin 300 mg capsule 300 mg PO Q12H #180 caps 08/29/24 [Rx Confirmed 11/19/24] ferrous sulfate 325 mg (65 mg iron) tablet (FeroSul) See Rx Instructions .Route .COMPLEX #30 tabs 10/17/24 [Rx Confirmed 11/19/24] sennosides 8.6 mg-docusate sodium 50 mg tablet (Senokot-S) 2 tab-cap (2 x 8.6-50 mg) PO BID PRN Constipation #120 tabs 11/07/24 [Rx Confirmed 11/19/24] fluticasone propionate 50 mcg/actuation nasal spray,suspension See Rx Instructions .Route .COMPLEX #48 grams 11/16/24 [Rx Confirmed 11/19/24] metoprolol succinate 25 mg tablet,extended release 24 hr See Rx Instructions .Route .COMPLEX #90 tabs 11/16/24 [Rx Confirmed 11/19/24] Active Medications Acetaminophen (Acetaminophen 325 Mg Tablet) 650 mg PO Q4H PRN PRN Reason: Mild Pain (1-3) or Fever Last Admin: 11/22/24 23:45 Dose: 650 mg Albuterol/Ipratropium (Ipratropium 0.5 Mg/Albuterol Sulfate 2.5 Mg Ampul.Neb 3 Ml) 3 ml INHALATION Q6HRT [facility] Last Admin: 11/23/24 14:01 Dose: 3 ml Aspirin (Aspirin 81 Mg Enteric Tablet) 81 mg PO DAILY [facility] Last Admin: 11/23/24 08:51 Dose: 81 mg Cyclobenzaprine HCl (Cyclobenzaprine Hcl 5 Mg Tablet) 5 mg PO Q12HR [facility] Last Admin: 11/23/24 08:51 Dose: 5 mg Ferrous Sulfate (Ferrous Sulfate [address]) 325 mg BY MOUTH DAILY [facility] Last Admin: 11/23/24 08:50 Dose: 325 mg Fluticasone Propionate (Fluticasone Propionate 0.05% Na Spr 16 Gm Btl (*Bkc)) 1 spray NASAL Q12HR [facility] Last Admin: 11/23/24 09:20 Dose: 1 spray Gabapentin (Gabapentin 300 Mg Capsule) 300 mg PO Q12HR [facility] Last Admin: 11/23/24 08:50 Dose: 300 mg Guaifenesin (Guaifenesin 12 Hr 600 Mg Tabcr) 1,200 mg PO Q12HR [facility] Last Admin: 11/23/24 08:50 Dose: 1,200 mg Heparin Sodium (Porcine) (Heparin Sodium 5,000 Units/Ml Vial) 5,000 units SUB-Q Q12HR [facility] Last Admin: 11/23/24 08:51 Dose: 5,000 units Loratadine (Loratadine 10 Mg Tablet) 10 mg PO DAILY [facility] Last Admin: 11/23/24 08:51 Dose: 10 mg Lovastatin (Lovastatin 20 Mg Tablet) 40 mg PO HS [facility] Last Admin: 11/22/24 21:28 Dose: 40 mg Metoprolol Succinate (Metoprolol Succinate Ext Rel 25 Mg Tabcr) 25 mg PO DAILY [facility] Last Admin: 11/23/24 08:51 Dose: 25 mg Oxycodone HCl (Oxycodone Hcl (*Crx) 10 Mg Tab Sr 12hr) 10 mg PO Q12HR [facility] Last Admin: 11/23/24 08:51 Dose: 10 mg Pantoprazole Sodium (Pantoprazole 40 Mg Tablet) 40 mg PO Q12HR [facility] Last Admin: 11/23/24 08:50 Dose: 40 mg Senna/Docusate Sodium (Senna/Docusate Sodium Tablet) 2 tab PO BID PRN PRN Reason: Constipation Last Admin: 11/20/24 09:14 Dose: 2 tab Sodium Chloride (Saline 0.65% Jeff Soln 44 Ml Btl) 1 spray NASAL Q6HR PRN PRN Reason: Congestion Last Admin: 11/20/24 16:30 Dose: 1 spray Solifenacin (Solifenacin 5 Mg Tablet) 5 mg PO HS [facility] Last Admin: 11/22/24 21:12 Dose: 5 mg Umeclidinium/Vilanterol (Umeclidinium/Vilanterol 62.5-25 Mcg Ellipta) 1 puff INHALATION DAILYRT [facility] Last Admin: 11/23/24 08:22 Dose: 1 puff Vitamin D (Cholecalciferol (Vitamin D3) 125 Mcg (5,000 Units) Tablet) 125 mcg PO DAILY [facility] Last Admin: 11/23/24 08:51 Dose: 125 mcg Transfer Discharge Sum: Hosp Hospital Course Hospital course: Melyssa Mccall is a 69 year old female case discuss with Dr. Kellogg, Hospitalist at [facility] patient is 69 female with history of severe COPD and chronic respiratory failure on home oxygen, presented to the ER with c/o shortness of breath, productive cough, fever, and chills, chest x-ray showed marked worsening of right upper lobe pneumonia/consolidation to further evaluate patient had CTA of chest which was no pulmonary embolus, aortic aneurysm, or aortic dissection. patient is being treated with zithromax, and Cefepime, patient will be seen by Pulmono logist and further recommendation to follow. patient is also found to have hepatocellular carcinoma, recently had PET scan, patient is seen by screen operator and oncologist. patient was seen by her garden implement mechanic and reviewed her CT scan of the chest which showed patient pneumonia and consolidation are worsening compared earlier this month on November 01, agreed with current treatment plan with Cefepime, further ordered chest PT and pulmonary toilet, also being treated with duo neb, today patient had bronchoscopy to clear mucus plugs from patient lungs discussed with the garden implement mechanic, feels she still has lot of mucus, and may need further treatement and recommended patient may benefit going to Tertiary care hospital such [facility], the garden implement mechanic will communicate with patient's oncologist for po ssible transfer to [facility], patient stats she feels much better compared to when she arrived, will continue to monitor and further recommendation to follow. will transfer the patient once a bed is available. Patient Condition: Stable Time Spent with Patient Time attestation: Total time spent providing and/or coordinating transfer services: Exam Narrative: Patient is comfortable, NAD HEENT: eyes are clear and none icteric LUNGS:CTA HEART: RR S1S2 ABD: BS+, Soft and nontender Lower extremities: no edema SKIN: nonjaundiced Neuro: grossly intact. DS: Data Data Completed and Pending Pending studies at discharge: Pending at discharge 11/22/24 13:37 Cytology [PTH] Routine Labs on day of discharge: Labs from last 24 hours 11/23/24 11/22/24 11/20/24 03:50 14:35 11:07 WBC 6.2 RBC 2.89 L Hgb 8.5 L Hct 28.3 L MCV 97.9 MCH 29.4 MCHC 30.0 L RDW 12.5 Plt Count 221 MPV 9.1 Sodium 135 L Potassium 4.1 Chloride 96 L Carbon Dioxide 37 H Anion Gap 2 L BUN 11 Creatinine 0.70 Estim Creat Clear Calc 44 Estimated GFR > 60 Glucose 108 Calcium 9.3 Magnesium 2.0 Bronch Specimen Source Bronchial washings Bronchial Fluid Color Red Bronchial Fluid Appearance Turbid Bronchial Neutrophils 71 Bronchial Lymphocytes 19 Bronchial Monocytes 2 Bronchial Eosinophils 1 Bronchial Macrophages 4 Bronchial Other Cells 3 M. pneumoniae (PCR) Negative Preliminary micro results at discharge 11/20/24 05:11 Sputum Culture - Preliminary Sputum 11/19/24 18:46 Blood Culture - Preliminary Blood 11/19/24 18:42 Blood Culture - Preliminary Blood
== END 2024-11-23 19:05 | disposition short-term general hospital (02) | DRG 193 ==
LOC: ANHED 22:01 → ANHIMU 22:09
PROVIDERS: Internal Medicine Critical Care Medicine; Student in an Organized Health Care Education/Training Program; Admitting Provider Internal Medicine; Emergency Provider Emergency Medicine; PCP Family Medicine; Visit Provider Family Medicine
PROC: 0BJ08ZZ Inspection of Tracheobronchial Tree, Via Natural or Artificial Opening Endoscopic (ICD-10-PCS; CPT 31622; principal; 2024-11-22 13:30)
DX: J18.9 Pneumonia, unspecified organism (principal); E43 Unspecified severe protein-calorie malnutrition; J96.21 Acute and chronic respiratory failure with hypoxia; J96.20 Acute and chronic respiratory failure, unspecified whether with hypoxia or hypercapnia; C22.0 Liver cell carcinoma; Z68.1 Body mass index [BMI] 19.9 or less, adult; E87.3 Alkalosis; E87.1 Hypo-osmolality and hyponatremia; D50.9 Iron deficiency anemia, unspecified; G62.9 Polyneuropathy, unspecified; J43.9 Emphysema, unspecified; K21.9 Gastro-esophageal reflux disease without esophagitis; M06.9 Rheumatoid arthritis, unspecified; R19.7 Diarrhea, unspecified; R91.8 Other nonspecific abnormal finding of lung field; Z99.81 Dependence on supplemental oxygen; Z79.82 Long term (current) use of aspirin; Z88.0 Allergy status to penicillin; Z20.822 Contact with and (suspected) exposure to COVID-19; Z87.891 Personal history of nicotine dependence
CPT/HCPCS: 36415; 36600; 71045; 71046; 71275; 80048; 80053; 80202; 81001; 82565; 82805; 83605; 83735; 84145; 84484; 85018; 85025; 85027; 85610; 85730; 85999; 86738; 87040; 87070; 87101; 87116; 87205; 87206; 87449; 87493; 87581; 87637; 87641; 87899; 88108; 88160; 88305; 93005; 94640; 94667; 94669; 96361; 96365; 96366; 96367; 97162; 99285; A9270; J0330; J0456; J0692; J0696; J1644; J1836; J2003; J2004; J2704; J3373; J7030; J7040; J7050; J7120; Q9967

== ENCOUNTER 2024-12-04 07:33 | Inpatient (IN) | payer MEDICARE, MEDICAID, SELFPAY ==
[2024-12-04] VITALS (32 sets, daily range): BP systolic 100–155; BP diastolic 43–60; PULSE 90–110; RESP 16–29; TEMP 36.6–38.6; O2SAT 90–100
--- NOTE | ~2024-12-04 | XR_ITS ---
XR chest 1V portable 12/07/2024 08:45 Indication: Pneumonia Procedure: AP view of the chest Comparison: Comparison to multiple prior studies sequentially, with oldest reviewed study dated 08/31. Findings: Unchanged right upper lobe pneumonia with adjacent pleural thickening which has developed s shelley 03/04/2025. There are coarse interstitial changes of the right lung base which are slightly impr isabel compared with 12/04/2024. Spinal stimulator leads overlying the mid thoracic spine. There is api taylor pleural thickening/scarring. Impression: 1: Stable complex right upper lobe pneumonia with adjacent loculated effusion/pleural thickening and tenting of the right hilum. Findings compatible with pneumonia, possibly atypical. 2: Slightly improved right upper lobe infiltrates compared with 12/04/2024, possibly resolving pneumo amparo. Reviewed, dictated and finalized at location A. Impression: 1: Stable complex right upper lobe pneumonia with adjacent loculated effusion/p leural thickening and tenting of the right hilum. Findings compatible with pneu monia, possibly atypical. 2: Slightly improved right upper lobe infiltrates compared with 12/04/2024, pos sibly resolving pneumonia.
--- NOTE | ~2024-12-04 | XR_ITS ---
EXAMINATION: XR chest 2V DATE: 12/04/2024 08:14 INDICATION: Weakness TECHNIQUE: frontal view of the chest was obtained. COMPARISON: Chest radiograph dated 11/22/[address] dated 11/19/2024 FINDINGS: Hyperexpansion lungs, flattening of the diaphragm and increased lucency in the left upper lung zone c onsistent with emphysema better appreciated on prior CT. Calcified biapical pleural-parenchymal scarr ing. Persistent consolidation in the right upper lobe with appearance on prior CT most consistent wit h pneumonia. Persistent reticulonodular and groundglass opacity right lower lung zone and streaky opa [place] at the left lung base which could represent asymmetric pulmonary edema, additional pneumonia, atelectasis or some combination thereof. No pneumothorax or definitive pleural effusion. The cardiome diastinal silhouette is normal. Spinal stimulator lead projects of the central canal the mid thoracic spine. IMPRESSION: 1. Emphysema. 2. Unchanged consolidation right upper lung zone consistent with pneumonia. 3. Unchanged opacities in the bilateral lower lung zones, right greater than left which could represe nt additional pneumonia, asymmetric mild pulmonary edema, atelectasis or some combination thereof. Reviewed, dictated and finalized at location A. IMPRESSION: 1. Emphysema. 2. Unchanged consolidation right upper lung zone consistent with pneumonia. 3. Unchanged opacities in the bilateral lower lung zones, right greater than le ft which could represent additional pneumonia, asymmetric mild pulmonary edema, atelectasis or some combination thereof.
--- NOTE | ~2024-12-04 | CT_ITS ---
EXAMINATION: CT brain wo con DATE: 12/04/2024 09:06 INDICATION: Trauma TECHNIQUE: Computed tomography (CT) of the head was performed without intravenous contrast. Sagittal and coronal reconstructions were performed. The mA was adjusted according to patient size. Iterative reconstruction technique was employed. The dose-length product was 756.67 mGy-cm. COMPARISON: head CT dated 04/11/2020 FINDINGS: No fracture. No acute intracranial hemorrhage, acute infarction or abnormal extra axial fluid collect ion. Unchanged small region of cystic encephalomalacia in the right parietal lobe, likely sequela of old infarct. There is mild scattered white matter hypoattenuation consistent with chronic small vesse l ischemic disease. Symmetric prominence of the sulci consistent with mild age-appropriate diffuse ce rebral volume loss. Ventricles are normal and symmetric. No mass/mass effect. The orbits, paranasal s inuses and mastoid air cells are normal. IMPRESSION: 1. 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 No acute intracranial process. 2. Age-related changes including mild diffuse volume loss and mild scattered white matter hypoattenua tion consistent with chronic small vessel ischemic disease. Reviewed, dictated and finalized at location A. IMPRESSION: 1. Chronic cystic encephalomalacia in the right parietal lobe, likely sequela o f chronic infarct. No acute intracranial process. 2. Age-related changes including mild diffuse volume loss and mild scattered wh ite matter hypoattenuation consistent with chronic small vessel ischemic diseas e.
--- NOTE | ~2024-12-04 | CT_ITS ---
EXAMINATION: CT chest abdomen pelvis wo con DATE: 12/04/2024 09:11 INDICATION: Pneumonia. Trauma. TECHNIQUE: Computed tomography (CT) of the chest, abdomen, and pelvis was performed without intraveno us contrast. Automated exposure control and iterative reconstruction technique were employed. The dos e-length product was 270.76 mGy-cm. COMPARISON: Chest CT dated 11/19/[address] abdomen and pelvis dated 08/02/2024 FINDINGS: CHEST CT: Severe emphysema with biapical calcified pleural parenchymal scarring. Unchanged region of consolidat ion with air bronchograms in the right upper lobe which has developed since 08/02/2024 consistent with pneumonia. Again seen is septal line thickening in the right middle and lower lobes with additional p atchy regions of consolidation at the basilar right lower lobe consistent with pneumonia. There are f ew scattered small calcified pulmonary nodules in both lungs along with calcified mediastinal lymph n odes consistent with old granulomatous disease. No pleural effusion. Heart size normal. Atherosclerot ic coronary artery calcification. No pericardial effusion. T7 laminectomy and spinal stimulator lead position in the posterior central canal at the level of T6-T7. Chronic mild anterior wedging of T7. ABDOMEN/PELVIS CT: Splenic calcification consistent with old granulomatous disease. Very subtle 2.7 x 1.5 cm Right hepat ic lobe mass along the gallbladder fossa consistent with biopsy-proven hepatocellular carcinoma The g allbladder, pancreas and bilateral adrenal glands are normal. Mild cortical atrophy at the lower pole of the right kidney likely sequela prior infection or infarction. Bilateral nonobstructing nephrolit hiasis with a couple 1-2 mm stones in the right kidney and 14 x 4 mm stone at the left kidney. Large amount of liquid appearing stool suggestive of diarrhea. No bowel obstruction. The appendix is not vi sualized. No pericecal inflammatory change to suggest acute appendicitis. Bladder is normal. The uter us is not identified and has likely been surgically resected. No free intraperitoneal gas or fluid. N o pathologically enlarged abdominal or pelvic lymphadenopathy. Mild lumbar spondylosis. IMPRESSION: 1. Severe emphysema with multifocal pneumonia in the right lung most prominent in the upper lobe with some interval progression in the right lower lobe. 2. Unchanged 2.7 x 1.5 cm subtle mass in the right hepatic lobe consistent with biopsy-proven hepatoc ellular carcinoma. 3. Bilateral nonobstructing nephrolithiasis. 4. Large amount of stool throughout the colon suggest diarrhea. Reviewed, dictated and finalized at location A. IMPRESSION: 1. Severe emphysema with multifocal pneumonia in the right lung most prominent in the upper lobe with some interval progression in the right lower lobe. 2. Unchanged 2.7 x 1.5 cm subtle mass in the right hepatic lobe consistent with biopsy-proven hepatocellular carcinoma. 3. Bilateral nonobstructing nephrolithiasis. 4. Large amount of stool throughout the colon suggest diarrhea.
--- NOTE | 2024-12-04 07:42 | ECG_ITS ---
Test Date: 2024-12-04 07:38:00 Measurements Intervals [place] Rate: 102 P: 76 W[place]: 126 QRS: 32 QRSD: 95 T: 70 QT: 313 QTc: 409 Interpretive Statements SINUS TACHYCARDIA POSSIBLE LEFT ATRIAL ENLARGEMENT INCOMPLETE RIGHT BUNDLE BRANCH BLOCK BASELINE ARTIFACT- I, II, AVR, AVL, AVF, V1-V6 BORDERLINE ECG Compared to ECG 11/19/2024 22:02:24 No significant changes Electronically Signed On 12-04-2024 08:13:[address] D.O.
[2024-12-04 07:51] LABS: Hematocrit 36.6 % (37.0-47.0); Hemoglobin 11.3 g/dL (12.0-15.0); Immature Granulocyte Percent A 0.3 % (0-0.5); Lymphocytes Absolute Auto 0.43 K/mm3 (0.9-3.2); Mean Corpuscular HGB Conc 30.9 g/dl (32-36); Mean Corpuscular Hemoglobin 29.6 pg (26-34); Mean Corpuscular Volume 95.8 fl (80-100); Nucleated Red Blood Cells Absolute Auto 0.000 K/mm3 (0.0-0.012); Nucleated Red Blood Cells Perc 0.0 % (0.0-0.2); Platelet Count Result 318 k/mm3 (150-375); Red Blood Count 3.82 M/mm3 (4.2-5.4); White Blood Count 11.4 K/mm3 (4.5-10.0)
[2024-12-04 08:02] LABS: Alanine Aminotransferase 20 U/L (6-35); Albumin Level 3.8 g/dL (3.5-5.1); Alkaline Phosphatase 105 U/L (38-126); Anion Gap 8 mmol/L (4-12); Aspartate Amino Transferase 33 U/L (14-36); Bilirubin,Total 0.4 mg/dL (0.2-1.3); Blood Urea Nitrogen 19 mg/dL (7-17); Calcium 10.1 mg/dL (8.4-10.2); Carbon Dioxide 31 mmol/L (22-30); Chloride 97 mmol/L (98-107); Estimated CRCL calculation 29 ml/min; Estimated Glomerular Filt Rate 51; Glucose 137 mg/dL (65-110); Potassium 4.3 mmol/L (3.4-5.0); Sodium 136 mmol/L (137-145); Total Protein 8.3 g/dL (6.3-8.2)
--- OUTSIDE RECORDS SUMMARY | 2024-12-04 08:29 | XMS_ITS | Referral Summary ---
Author Organization [facility] Address [address] [place] [id number] Care Team Providers Care Cryptologic Supervisor Name Role Phone Tommy King DO Primary Care Provider +1- [phone] Encounters Date Type Department Care Team Description 11/23/2024 5:05 AM CDT - 11/23/2024 11:59 PM CDT Hospital Encounter [facility] [address] [place] [address] Discharge Disposition: Discharge to home or self care from Last 3 Months Allergies Active Allergy Reactions Criticality Noted Date [...] of Binge Drinking Not on file 09/01 Comments Unknown Sex and Gender Information Value Date Recorded Sex Assigned at Not on file 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 Gender Identity Not on file Sexual Orientation [...] CDT Plan of Treatment Not on file Procedures Procedure Name Priority Date/Time Associated Diagnosis Comments IGM STAT 11/23/2024 10:45 PM CDT from Last 3 Months Results * IgM (11/23/2024 10:45 PM CDT) Immunoglobulin M 132 40 - 230 mg/dL Blood 11/23/2024 10:4 5 PM CDT 11/24/2024 5:06 AM CDT us Notinfile Unknown LAB BLOOD ORDERABLES Final Res ult [facility] [address] Department [place] [address] from Last 3 Months Insurance MEDICARE [employer] MEDICARE [facility] MEDICARE ADVANTAGE Care Teams Cryptologic Supervisor Relationship Specialty Start Date End Date Tommy King DO PCP - General Internal Medicine 09/11/20
--- OUTSIDE RECORDS SUMMARY | 2024-12-04 08:29 | XMS_ITS | Clinical Summary ---
Author Organization [facility] Address [address] [place] [id number] Care Team Providers Care Manager Of Product Name Role Phone Tommy King DO Primary Care Provider +1- [phone] Allergies Active Allergy Reactions Criticality Noted Date [...] - 11/23/2024 11:59 PM CDT Hospital Encounter [address] [address] Discharge Disposition: Discharge to home or self care from Last 3 Months Surgical History Surgery Date Site/Laterality Comments APPENDECTOMY HYSTERECTOMY Medical History Medical History Date Comments COPD (chronic obstructive pulmonary disease) Esophageal abnormality Hyperlipidemia Urinary incontinence Allergic rhinitis [...] on file 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 Gender Identity Not on file Sexual Orientation [...] 10/05/2020 8:12 AM CDT Plan of Treatment Health Maintenance Due Date Last Done Comments Breast Cancer Screening-Mammogram 1955 Colon Cancer Screening-Colonoscopy 1955 Depression Screening 1955 Fall Risk Assessment 1955 Hepatitis C Screening 1955 Osteoporosis Screening-Bone Density Scan 1955 DTaP/Tdap/Td Vaccine (1 - Tdap) 1964 Hepatitis B Screening 07/25/1971 Well Visit 65+ 2018 Pneumococcal vaccine 65+ (2 of 2 - PPSV23) 03/02/2020 01/06/2020, 05/04/2005 Influenza Vaccine (#1) 2025 0, 02/12/2019, 01/13/2018, Additional history exists Zoster Vaccine Completed 04/24/2018, 01/27/2018 Procedures Procedure Name Priority Date/Time Associated Diagnosis Comments IGM STAT 11/23/2024 10:45 PM CDT from Last 3 Months Results * IgM (11/23/2024 10:45 PM CDT) Immunoglobulin M 132 40 - 230 mg/dL Blood 11/23/2024 10:4 5 PM CDT 11/24/2024 5:06 AM CDT us Notinfile Unknown LAB BLOOD ORDERABLES Final Res ult [facility] [address] Department [place] [address] from Last 3 Months Insurance MEDICARE [id number] [address] [place] [address] MEDICARE [employer] Care Teams Manager Of Product Relationship Specialty Start Date End Date Tommy King DO PCP - General Internal Medicine 09/11/20
--- OUTSIDE RECORDS SUMMARY | 2024-12-04 08:29 | XMS_ITS | Clinical Summary ---
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 ARON MCG/ML >=16 mcg/mL: Resistant Staphylococcus aureus, Methicillin resistant TRIMETHOPRIM/ SULFAMETHOXAZOLE ARON MCG/ML <=10 mcg/mL: Susceptible Staphylococcus aureus, Methicillin resistant RIFAMPIN ARON MCG/ML <=0.5 mcg/mL: Susceptible Comment:Rifampin galdino uld NOT be used alone for antimicrobial therapy. us Vikas Gar DO MICROBIOLOGY - GENERAL ORDERAB LES Final Result [facility]# [id number] 5 [address] [facility] [place] [address] * (ABNORMAL) PROCALCITONIN (11/23/2024 10:45 PM CDT) PROCALCITONIN 0.26(H) <=0.25 ng/mL 11/23/2024 11:54 PM CDT [facility] LABORATORY [facility] Blood Venipuncture / Unknown 11/23/2024 10:45 PM CDT 11/23/2024 10:49 PM CDT Narrative [facility] LABORATORY [facility] - 11/23/2024 11:54 PM CDT The utility of procalcitonin is limited/NOT recommended in certain populations (e.g. newborns, dialysis/ESRD, patients with recent major surgery/trauma/david, liver cirrhosis, viral hepatitis, certain cancers, etc.). Procalcitonin levels MUST be interpreted in the context of the patient's clinical condition and CANNOT be solely relied upon for diagnosis of infection. <0.25 ng/mL: Bacterial infection unlikely, particularly lower respiratory tract infections. <0.5 ng/mL: Low risk for progression to severe sepsis/septic shock. Localized infection possible. Measurements done early (<6 hours) after systemic process starts may still be low. 0.5-2 ng/mL: Moderate risk for progression to severe sepsis/septic shock. >2 ng/mL: High risk for progression to severe sepsis/septic shock. If antibiotics ARE administered, repeat testing is recommended every 2-3 days to help guide antibiotic cessation. Once a decrease of 80% or more has occurred from baseline, discontinuation of antibiotics should strongly be considered in clinically stable patients. Procalcitonin is produced in the setting of systemic inflammation, particularly bacterial infections. It is detectable within 2-4 hours and peaks within 6-24 hours. Vikas Gar DO CHEMISTRY ORDERABLES Final Res ult [facility] LABORATORY [facility]# [id number] [address] [place] [address] * (ABNORMAL) CBC WITH DIFFERENTIAL (11/23/2024 10:45 PM CDT) WBC 7.6 4.0 - 9.8 K/uL 11/23/2024 11:08 PM CDT [facility] LABORATORY SERVICES [facility] RBC 3.11(L) 3.90 - 4.90 M/uL 11/23/2024 11:08 PM CDT [facility] LABORATORY [facility] HEMOGLOBIN 9.3(L) 11.8 - 14.8 g/dL 11/23/2024 11:08 PM CDT [facility] LABORATORY [facility] HEMATOCRIT 30.2(L) 35.5 - 44.0 % 11/23/2024 11:08 PM CDT [facility] LABORATORY [facility] MCV 97.1 82.0 - 99.0 fL 11/23/2024 11:08 PM CDT [facility] LABORATORY SERVICES - [facility] MCH 29.9 27.2 - 32.6 pg 11/23/2024 11:08 PM CDT [facility] LABORATORY SERVICES - [facility] MCHC 30.8(L) 31.5 - 35.5 g/dL 11/23/2024 11:08 PM CDT [facility]ORY SERVICES - [facility] RDW 12.5 11.5 - 14.5 % 11/23/2024 11:08 PM CDT [facility] - [facility] RDW-STDEV 44.3 37.1 - 48.7 fL 11/23/2024 11:08 PM CDT [facility] - [facility] PLATELETS 294 140 - 350 K/uL 11/23/2024 11:08 PM CDT [facility] - [facility] MPV 9.5 9.3 - 12.4 fL 11/23/2024 11:08 PM CDT [facility] - [facility] NEUTROPHILS 70 % 11/23/2024 11:08 PM CDT [facility] - [facility] LYMPHOCYTES 13 % 11/23/2024 11:08 PM CDT [facility] - [facility] MONOCYTES 7 % 11/23/2024 11:08 PM CDT [facility] - [facility] EOSINOPHILS 10 % 11/23/2024 11:08 PM CDT [facility] - [facility] BASOPHILS 0 % 11/23/2024 11:08 PM CDT [facility] - [facility] IMMATURE GRANULOCYTES 1 % 11/23/2024 11:08 PM CDT [facility] - [facility] Comment:IG (Immature Granulo cyte) count includes Metamyelocytes, Myelocytes, and Promyelocytes NEUTROPHIL ABSOLUTE 5.29 1.90 - 7.00 K/uL 11/23/2024 11:08 PM CDT [facility] LABORATORY SERVICES - . [facility] LYMPHOCYTE ABSOLUTE 0.95 0.70 - 4.50 K/uL 11/23/2024 11:08 PM CDT [facility] LABORATORY SERVICES - . [facility] MONOCYTE ABSOLUTE 0.50 0.10 - 1.30 K/uL 11/23/2024 11:08 PM CDT [facility] SERVICES - [facility] EOSINOPHIL ABSOLUTE 0.77(H) 0.00 - 0.70 K/uL 11/23/2024 11:08 PM CDT [facility] LABORATORY SERVICES - [facility] BASOPHILS ABSOLUTE 0.03 0.00 - 0.20 K/uL 11/23/2024 11:08 PM CDT [facility] LABORATORY SERVICES - [facility] IMMATURE GRANULOCYTES ABSOLUTE 0.05(H) 0.00 - 0.03 K/uL 11/23/2024 11:08 PM CDT [facility] LABORATORY SERVICES - [facility] Blood Venipuncture / Unknown 11/23/2024 10:45 PM CDT 11/23/2024 10:49 PM CDT Vikas Gar DO HEMATOLOGY ORDERABLES Final Re sult [facility] CLIA# [id number] [address] [place] [address] * (ABNORMAL) SEDIMENTATION RATE (11/23/2024 10:45 PM CDT) Pathologist [facility] ESR (SEDIMENTATION RATE) 98(H) <=30 mm/Hr 11/23/2024 11:34 PM CDT [facility] LABORATORY SERVICES - [facility] Blood Venipuncture / Unknown 11/23/2024 10:45 PM CDT 11/23/2024 10:49 PM CDT Vikas Gar DO HEMATOLOGY ORDERABLES Final Re sult [facility] CLIA# [id number] [address] [place] [address] * IMMUNOGLOBULINS IGG IGA IGM (11/23/2024 10:45 PM CDT) IGG 1,294 700 - 1,600 mg/dL 11/24/2024 6:56 AM CDT [facility] LABORATORY [facility] IGA 342 70 - 400 mg/dL 11/24/2024 6:56 AM CDT [facility] LABORATORY SERVICES [facility] IGM 132 40 - 230 mg/dL 11/24/2024 6:56 AM CDT [facility] LABORATORY [facility] Comment:Performed by [facility]: [address] , [place] [address]. Blood Venipuncture / Unknown 11/23/2024 10:45 PM CDT 11/23/2024 10:49 PM CDT us Vikas Gar DO CHEMISTRY ORDERABLES Final Res ult [facility] CLIA# [id number] [address] [place] [address] * (ABNORMAL) C-REACTIVE PROTEIN (11/23/2024 10:45 PM CDT) CRP 103.0(H) <5.0 mg/L 11/23/2024 11:42 PM CDT [facility] LABORATORY [facility] Blood Venipuncture / Unknown 11/23/2024 10:45 PM CDT 11/23/2024 10:49 PM CDT us Vikas Gar DO CHEMISTRY ORDERABLES Final Res ult Performing Organization Address [facility]/ZIP Co de Phone Number [facility] CLIA# [id number] [address] [place] [address] * PHOSPHORUS (11/23/2024 10:45 PM CDT) PHOSPHORUS 4.2 2.5 - 4.5 mg/dL 11/23/2024 11:46 PM CDT [facility] LABORATORY [facility] Blood Venipuncture / Unknown 11/23/2024 10:45 PM CDT 11/23/2024 10:49 PM CDT us Vikas Gar DO CHEMISTRY ORDERABLES Final Res ult Performing Organization Address City/[facility]/ZIP Co de Phone Number [facility] CLIA# [id number] [address] [place] [address] * MAGNESIUM LEVEL (11/23/2024 10:45 PM CDT) [facility] MAGNESIUM 2.0 1.6 - 2.4 mg/dL 11/23/2024 11:46 PM CDT [facility] LABORATORY SERVICES [facility] Blood Venipuncture / Unknown 11/23/2024 10:45 PM CDT 11/23/2024 10:49 PM CDT Vikas Gar DO CHEMISTRY ORDERABLES Final Res ult [facility] LABORATORY SERVICES [facility] CLAK# [id number] [address] [place] [address] * (ABNORMAL) BLOOD GAS VENOUS (11/23/2024 10:45 PM CDT) [facility] PH, VENOUS 7.39 7.32 - 7.43 11/23/2024 11:07 PM CDT [facility] LABORATORY SERVICES [facility] PCO2 VENOUS 65(H) 38 - 50 mm Hg 11/23/2024 11:07 PM T [facility] LABORATORY SERVICES [facility] PO2 VENOUS 37 25 - 40 mm Hg 11/23/2024 11:07 PM T [facility] LABORATORY [facility] HCO3 VENOUS 39(H) 22 - 29 mmol/L 11:07 PM [facility] BASE EXCESS VENOUS 11.9 Reference Range Not Established mmol/L 11/23/2024 11:07 PM [facility] HEMOGLOBIN VENOUS 9.8 No Ref Range Estab g/dL 11/23/2024 11:07 PM T [facility] LABORATORY SERVICES - [facility] O2 SAT EST VENOUS 64 40 - 70 % 11/23/2024 11:07 PM T [facility] LABORATORY SERVICES [facility] Blood, venous 11/23/2024 10: 45 PM CDT 11/23/2024 10:49 PM CDT Vikas Gar DO ABG ORDERABLES Final Result [facility] LABORATORY SERVICES - [facility] DIRK# [id number] [address] [place] [address] * (ABNORMAL) COMPREHENSIVE METABOLIC PANEL (11/23/2024 10:45 PM CDT) SODIUM 140 136 - 145 mmol/L 11/23/2024 11:46 PM CDT [facility] LABORATORY SERVICES - [facility] POTASSIUM 5.2(H) 3.5 - 5.0 mmol/L 11/23/2024 11:46 PM CDT [facility] LABORATORY SERVICES - [facility] CHLORIDE 96(L) 98 - 107 mmol/L 11/23/2024 11:46 PM CDT [facility] LABORATORY SERVICES - [facility] CO2 35(H) 22 - 29 mmol/L 11/23/2024 11:46 PM CDT [facility] LABORATORY SERVICES - [facility] CALCIUM 10.0 8.6 - 10.2 mg/dL 11/23/2024 11:46 PM CDT [facility] LABORATORY SERVICES - . [facility] BUN 16 8 - 23 mg/dL 11/23/2024 11:46 PM CDT [facility] LABORATORY SERVICES - . [facility] CREATININE 0.62 0.51 - 0.95 mg/dL 11/23/2024 11:46 PM CDT [facility] LABORATORY SERVICES - . [facility] Comment:The GFR result is no t clinically significant on patients <18 or >70 years of age. GLUCOSE 102(H) 74 - 99 mg/dL 11/23/2024 11:46 PM CDT [facility] LABORATORY SERVICES - . [facility] TOTAL PROTEIN 6.1(L) 6.7 - 8.6 g/dL 11/23/2024 11:46 PM CDT [facility] LABORATORY SERVICES - . [facility] ALBUMIN 2.6(L) 3.5 - 5.2 g/dL 11/23/2024 11:46 PM CDT [facility] LABORATORY SERVICES - [facility] BILIRUBIN TOTAL 0.2 0.0 - 1.1 mg/dL 11/23/2024 11:46 PM CDT [facility] LABORATORY SERVICES - . [facility] ALKALINE PHOSPHATASE 97 35 - 104 U/L 11/23/2024 11:46 PM CDT [facility] LABORATORY [facility] AST 25 <33 U/L 11/23/2024 11:46 PM CDT [facility] ALT 14 <34 U/L 11/23/2024 11:46 PM CDT [facility] GFR >60 mL/min/1.7 3 sq meter 11/23/2024 11:46 PM CDT [facility] Comment:eGFR calculated with 2020 CKD-EPI equation. Vegetarian diet, extremely high or low muscle mass, and may affect results. Cystatin C with Glomerular Filtration Rate is a suitable alternative for these patients. ANION GAP 9 8 - 16 mmol/L 11/23/2024 11:46 PM CDT [facility] Blood Venipuncture / Unknown 11/23/2024 10:45 PM CDT 11/23/2024 10:49 PM CDT Narrative [facility] - 11/23/2024 11:46 PM CDT Samples containing indocyanine green cause interferences on Total and/or Direct Bilirubin and must not be measured. Vikas Gar DO CHEMISTRY ORDERABLES Final Res ult [facility]# [id number] [address] [facility] [address] [address] * BRONCHOSCOPY (11/23/2024 9:51 AM CDT) Abstract Provider PROCEDURE/MINOR SURGICAL ORDER ZELDA Edited Result - Final * [facility] NORMAL BLOOD (11/15/2024 3:18 PM CDT) [facility] 11/15/2024 11:00 PM CDT [facility] Comment:See NGS Report for R esults. 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 11/24/2024 Insurance [id number] [facility] [address] [facility] [place]ICA[place] RX OPTUM RX Member Subscriber Plan / Payer (Ef fective 2024-Present) Name:Melyssa Mccall Relation to Subscriber:Self Name:Melyssa Mccall Payer ID:Not on file Group ID:[id number] Type:RX Medicare Part D [facility] [place] [place] RX MERIDIANRX Medicaid RX PANDYA PLANS (INTERNAL) [facility] Internal Plans Advance Directives For more information, please contact: [phone] * NO CPR (In Event of Cardiopulmonary Arrest) (Latest Code Status on File) Date Activated Date Inactivated Comments 11/25/2024 11:19 AM 11/30/2024 1:43 PM Question Answer Comments Mechanical Ventilation (for respiratory distress) - Invasive (i.e. intubation): No Mechanical Ventilation (for respiratory distress) - Non-Invasive (i.e. BiPAP, CPAP): Yes * Full Code Date Activated Date Inactivated Comments 11/23/2024 9:17 PM 11/25/2024 11:19 AM
--- OUTSIDE RECORDS SUMMARY | 2024-12-04 08:29 | XMS_ITS | Continuity of Care Document ---
Author Organization [facility] Address [address] [place] [address] Phone Care Team Providers Care Spool Fixer Name Role Phone Sherif Doyle MD Unavailable Unavailable Allergies, Adverse Reactions, Alerts Substance Reaction Status Criticality PENICILLIN G POTASSIUM Active No In formation MEPERIDINE HCL Active No Informatio n Medications Medication Instructions Dosage Effective Dates (start - stop) Status Comments METHADOSE 5 MGTABLET tk 2 ts qd - Acti ve Lidoderm 5 % (700 mg/patch) Adhesive Patch - Active Miacalcin 200 unit/Actuation Nasal Holiday Aerosol 1 spray each nostril qd - [...] Encounter [facility], [address], [id number], [place] tel:[phone] [facility] No Information 6 Vivek Gorman. [address] [place] [address], [id number] , [place]. tel:[phone] Offic/outpt E&m Estab Minor 10 [facility], [address] [address], [place], [place], [id number], [place] tel:[phone] [facility] No Information 6 José Luis Sullivan. [address] [facility], [address], [id number] , [place]. tel:[phone] Referring Provider: Nate Ordonez V, [address], [address] . tel:[phone] [facility], [address], [place], [place], [id number], [place] tel:[phone] [facility] No Information 6 José Luis Sullivan. [address], [place], [place], [id number] , [place]. tel: [phone] Referring Provider: Nate Ordonez V, [address], [place], [address] . tel:[phone] [facility], [address], [place], [place], [address], [place] tel:[phone] [facility] No Information 6 José Luis Sullivan. [address], [address], [place], [place], [id number] , [place]. tel: [phone] Referring Provider: Nate Ordonez V, [address], [place], [address] . tel:[phone] Offic/outpt E&m Estab Low-mod [facility], [address], [place], [place], [id number], [place] tel:[phone] [facility] No Information 6 José Luis Sullivan. [address], [address], [place], [place], [id number] , [place]. tel:[phone] Referring Provider: Nate Ordonez V, [address], [place], [address] . tel:[phone] Offic/outpt E&m Estab Low-mod [facility], [address], [place], [place], [address], [place] tel:[phone] [facility] No Information 6 José Luis Sullivan. [address], [address], [place], [place], [id number] , [place]. tel: [phone] Referring Provider: Nate Ordonez V, [address], [place], [address] . tel:[phone] Offic/outpt E&m Estab Minor 10 [facility], [address], [place], [place], [address], [place] tel:[phone] [facility] No Information May-0 9-200 6 José Luis Sullivan. [address], [address], [place], [place], [address] , [place]. tel:[phone] Referring Provider: Nate Ordonez V, [address], [place], [address] . tel:[phone] [facility], [address], [place], [place], [address], [place] tel:[phone] [facility] No Information May-0 5-200 6 José Luis Sullivan. [address], [address], [place], [place], [id number] , [place]. tel:[phone] Referring Provider: Nate Ordonez V, [address], [place], [address] . tel:[phone] [facility], [address], [place], [place], [address], [place] tel:[phone] [facility] No Information May-0 2-200 6 José Luis Sullivan. [address], [address], [place], [place], [address] , [place]. tel:[phone] Referring Provider: Nate Ordonez V, [address], [place], [address] . tel:[phone] [facility], [address], [place], [address], [place] tel:[phone] [facility] No Information Apr-2 8-200 6 Ordonez Nate. [address], [address], [place], [place], [id number] , [place]. tel:[phone] Referring Provider: Nate Ordonez V, [address], [place], [address] . tel:[phone] [facility], [address], [place], [place], [id number], [place] tel:[phone] [facility] No Information Aug- 5-200 6 José Luis Sullivan. [address], [address], [place], [place], [address] , [place]. tel:[phone] Referring Provider: Nate Ordonez V, [address], [place], [address] . tel:[phone] [facility], [address], [place], [place], [address], [place] tel:[phone] [facility] NANCY No Information 6 José Luis Sullivan. [address], [address], [place], [id number] , [place]. tel:[phone] Referring Provider: Nate Ordonez V, [address], [place], [address] . tel:[phone] [facility], [address], [place], [address], [place] tel:[phone] [facility] NANCY No Information 200 6 José Luis Sullivan. [address], [address], [place], [place], [address] , [place]. tel:[phone] Referring Provider: Nate Ordonez V, [address], [place], [address] . tel:[phone] Offic Cons New/estab Mod-hi 60 [facility], [address], [place], [address], [place] tel:[phone] [facility] NANCY No Information 8-200 6 José Luis Sullivan. [address], [facility] [address], [place], [place], [id number] , [place]. tel:[phone] Referring Provider: Nicho Goldstein MD B, [address] [place] [place], [address]. tel:[phone] Family History Family Member Type Diagnosis Age At Onset Gen Fam Hx Problem (finding) Stroke Gen Fam Hx Problem (finding) Cancer Payers Payer name Insurance type Covered democrat ID Authorstepha jevon(s) BCBS Of [facility] [id number] Social History Type Description Quantity Date Captured [...]
--- OUTSIDE RECORDS SUMMARY | 2024-12-04 08:29 | XMS_ITS ---
Author Organization [facility] Address [address] [address] Care Team Providers Care Milk House Worker Name Role Phone Unavailable Primary Care Provider Unavailabl e Active Problems Problem Noted Date Diagnosed Date [...] bladder) 05/14/2018 Chronic obstructive pulmonary disease 05/05/2013 Current Treatment and Therapy Plans No current plan information found. Past Treatment and Therapy Plans No past plan information found. Lifetime Dose Tracking * Chemical Lifetime Dose Automatic Entry Manual Entr y Effective Dose 7 mSv 7 mSv 0 mSv Total DLP 464.72 DLP 464.72 DLP 0 DLP CTDIvol Max 4.44 mGy 4.44 mGy 0 mGy CTDIvol Min 0.04 mGy 0.04 mGy 0 mGy
--- OUTSIDE RECORDS SUMMARY | 2024-12-04 08:29 | XMS_ITS | Clinical Summary ---
Author Organization [facility] The Trade Desk Address [address] [place] [address] Care Team Providers Care Maintenance Truck Driver Name Role Phone Tommy King DO Primary Care Provider [phone] [facility],non-owned Affiliates and Associated Physician Practices is amultiple site organization consisting of ambulatory clinics and hospital sitesin [place], [place], [place] and [place]. This disclosure is being madepursuant to the Care Everywhere program and may not contain all information available regarding this patient. Last updated 18.[facility] Allergies Active Allergy Reactions Criticality [...] by mouth once daily 1 Active hydroCHLOROthiaz ylndsey (HYDRODIURIL) 12.5 MG Take 12.5 mg by [...] fluticasone propionate (FLONASE) 50 MCG/ACT nasal spray Cassel[place] 2 sprays into the nose once daily [...] 36.8 C (98.3 F) 06/12/2021 10:53 AM TOYS INSPECTOR Respiratory Rate 18 05/23/2021 12:51 PM TOYS INSPECTOR Oxygen Saturation 91% 08/05/2021 9:59 AM CDT [...] this topic Medical Devices Implanted Type Area Remote Sensing Engineer Device Identifier Shelf Expiration Date Model / Serial / Lot Lead Nrstm 60cm Penta 3mm Pdl 16 [facility] - [id number] Implanted:Qty: 1 on 05/23/2021 by Esau Rose MD at [facility] Back [employer] 10/19/2022 [id number] / [id number] / Slnt Dura Duraseal Pg Trilysine Amine 5 Implanted:Qty: 1 on 05/23/2021 by Esau Rose MD at [facility] Back [employer] Erendira [id number] / / [id number] Gntr Nrstm 1.95inx2.19in [employer] Elt - [id number] Implanted:Qty: 1 on 05/23/2021 by Esau Rose MD at [facility] Left: Back [employer] 03/26/2023 [id number] / [id number] / Insurance MEDICARE [place] [address] [employer] MANAGED MEDICARE ADV MEDICAID SPEND[place] SELF PAY NO INSURANCE Member Subscriber Plan / Payer (Ef fective for All Dates) Name:Melyssa Mccall Member ID:Not on file Relation to Subscriber:Not on file Name:MELYSSA MCCALL Subscriber ID:Not on file (Home) Address: [address] [place] [address] [place] [address] Payer ID:Not on file Group ID:Not on file Type:Self Pay Address: [facility] MANAGED MEDICARE [facility] [place] [address] MEDICARE MEDICAID - OUT OF STATE Care Teams Maintenance Truck Driver Relationship Specialty Start Date End Date Tommy King DO PCP - General Internal Medicine 04/23/21
--- NOTE | 2024-12-04 08:49 | ED_ITS ---
HPI - General Adult General Chief complaint: Weakness Stated complaint: weakness Time Seen by Provider: 12/04/24 08:17 History of Present Illness HPI narrative: 69-year-old female presenting to the emergency department for evaluation for increased generalized weakness. Patient has had pneumonia for last few months and states she was just recently diagnosed with liver cancer. Patient was just discharged from [facility] on Thursday on linezolid. Patient states she had been feeling improved began having increased generalized weakness last night patient did have multiple falls. Patient did strike her head and states that she injured her lower back and buttock. Patient is going to have follow-up with Dr. Tracey and Dr Gipson Related Data Home Medications ?Medication ?Instructions ?Recorded ?Confirmed ?Last Taken ?Type aspirin 81 mg tablet,delayed 81 mg PO DAILY 06/02/19 12/04/24 10/31/24 History release (Adult Aspirin Regimen) cyclobenzaprine 5 mg tablet 5 mg PO Q12H 01/05/20 12/04/24 10/31/24 History oxycodone myristate 13.5 mg 13.5 mg PO Q12H 11/19/21 12/04/24 10/31/24 History capsule sprinkle extend release 12hr(DON'T CRUSH) (Xtampza ER) solifenacin 10 mg tablet (Vesicare) 5 mg PO HS 02/04/23 12/04/24 10/30/24 History cholecalciferol (vitamin D3) 125 125 mcg PO DAILY 07/24/23 12/04/24 10/31/24 History mcg (5,000 unit) tablet (Vitamin D3) guaifenesin 600 mg tablet, 1,200 mg PO Q12H 07/24/23 12/04/24 10/31/24 History extended release 12 hr (Mucinex) loratadine 10 mg tablet 10 mg PO DAILY 07/24/23 12/04/24 10/31/24 History albuterol sulfate 90 mcg/actuation See Rx Instructions .Route 03/15/24 12/04/24 10/31/24 History aerosol inhaler .COMPLEX PRN Shortness Of Breath Or Wheezing lovastatin 40 mg tablet 40 mg PO HS 08/02/24 12/04/24 10/30/24 History Allergies Allergy/AdvReac Type Severity Reaction Status Date / Time Penicillins Allergy Severe Anaphylaxis Verified 12/04/24 07:43 meperidine Allergy Intermediate Itching Verified 12/04/24 07:43 sulfamethoxazole (From Allergy Intermediate Mouth Verified 12/04/24 07:43 Bactrim) burning/redness trimethoprim (From Bactrim) Allergy Intermediate Mouth Verified 12/04/24 07:43 burning/redness mirtazapine AdvReac Mild Headache Verified 12/04/24 07:43 Review of Systems 2 Review of Systems: All systems reviewed & are unremarkable except as noted in HPI and below PMFSH Past Medical History Medical History Vitamin D deficiency B12 deficiency Mixed incontinence Liana esophagitis Peripheral neuropathy Raynaud disease OSWALD (iron deficiency anemia) Osteopenia RLS (restless legs syndrome) Chronic narcotic use On home O2 Chronic sinusitis Olecranon bursitis, left elbow PSVT (paroxysmal supraventricular tachycardia) Kidney stones Fibromyalgia Rheumatoid arthritis Constipation IBS (irritable bowel syndrome) GERD (gastroesophageal reflux disease) Lumbar radiculopathy Esophageal stricture Status post dilatation ILD (interstitial lung disease) Small amount of interstitial lung disease was seen on base of lungs on chest CT 03/25/2018 which was an abdomen and pelvis CT Essential hypertension Collagen vascular disease Hyperlipidemia, unspecified Anxiety 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, patient unsure of this diagnosis COPD (chronic obstructive pulmonary disease) With severe obstructive disease noted on recent PFTs October 2024 with significant decompensation compared to prior study Tobacco abuse Quit 08/2024 Surgical History Surgical History History of esophagogastroduodenoscopy (EGD) With history of esophageal dilatation of History of colonoscopy with polypectomy History of partial hysterectomy Status post insertion of spinal cord stimulator History of bladder suspension procedure History of appendectomy History of lumbar surgery Spinal cord stimulator implanted 05/23/21 Family History Family History Mother Patient's mother is , Onset Age: 72 Sibling Carcinoma of colon Ovarian cancer Lung cancer Rectal cancer Family history of malignant neoplasm of breast in first degree relative Father Brain aneurysm Cerebrovascular accident, Onset Age: 54 Other Arthritis COPD (chronic obstructive pulmonary disease) High cholesterol Hypertension Lung disease Neuropathy Social History Social History Social History: The patient reports that she has been since 2007 and lives alone. She has 1 son who lives in [place]. She quit smoking in August 2024 of months prior to that she smoked a pack of cigarettes per day for close to 60 years. She denies any significant alcohol use. Code status: DNR/DNI (she would be okay with pressors if needed for blood pressure support) Healthcare power of body trimmer: Cole (son) or Romi (friend) Smoking packs per day: 1 Smoking cigarettes per day: 20.0 Years smoked: 60 Smoking pack-years: 60.00 Smoking status: Former smoker Second hand tobacco smoke exposure: Yes Additional smoking assessment comments: Using Nicotine patches AT TIMES Alcohol intake: never Substance use: never Substance use type: does not use Do You Feel Safe in your Home?: Yes Lack of Transportation: No Lack of Food: Never True Current Housing: I Have Housing Concerned About Future Housing: No Difficulty Paying Gas/Electric Bills: No Difficulty Paying for Meds: No Currently Unemployed: No Education: Trade/Vocational Certificate Difficulty w/ Childcare or Family Care: No Living arrangements: alone Occupation/Education: retired Gender identity (if verbalized by the patient): Female Spiritual care concerns: No Exam 2 Narrative: APPEARANCE: Ill-appearing HEAD: normocephalic, atraumatic. EYES: PERRLA/EOMI, conjunctivae clear. NOSE: Normal no drainage EARS:TMS clear with good light reflex. THROAT: Pharynx clear, no exudate. NECK: Supple. No adenopathy, no masses. RESPIRATORY: Wheeze bilaterally CARDIOVASCULAR: Regular rate and rhythm without murmurs rubs or gallops. ABDOMINAL: Soft, nontender, nondistended, normal bowel sounds MUSCULOSKELETAL: Moves all extremities. Strength/ROM intact, No edema, No calf tenderness. NEURO: Alert. Cranial nerves II through XII intact. Good gait. Good coordination SKIN: Warm, dry. Normal Color Course Vital Signs Vital signs: Vital Signs Temperature 98.8 F 12/04/24 07:32 Pulse Rate 101 H 12/04/24 07:32 Respiratory Rate 20 12/04/24 07:32 Blood Pressure 155/51 H 12/04/24 07:32 Pulse Oximetry 97 12/04/24 07:32 Oxygen Delivery Room Air 08/03/25 07:32 Temperature 101.4 F H 12/04/24 15:55 Pulse Rate 110 H 12/04/24 15:55 Respiratory Rate 22 H 12/04/24 15:55 Blood Pressure 126/43 L 12/04/24 15:55 Pulse Oximetry 94 12/04/24 15:55 Oxygen Delivery High Flow Nasal Cannula 12/04/24 15:28 Oxygen Flow Rate 2 12/04/24 15:28 Medical Decision Making MDM Narrative Medical decision making narrative: 69-year-old female presents emergency department for evaluation for increased generalized weakness. Patient reports she does feel significantly improved after rehydration patient normal orthostatic vital signs. Patient was able to ambulate without any issues. Patient is still currently on antibiotics for pneumonia. Patient is currently afebrile but does have a leukocytosis of 11.4 hemoglobin 11.3. No significant acute abnormalities on the patient's CMP UA had many squamous cells and urine culture was ordered. Head CT was negative for acute abnormality, chest x-ray is unchanged and still consistent with pneumonia. CT scan does show a right-sided pneumonia. This still currently on antibiotics and patient initially stated she wanted to be discharged home. On further discussion patient states she does still feel too weak to be discharged. Patient is post be on the nasal lid. Blood cultures were ordered and patient was started on cefepime and vanc in the emergency department. Patient is scheduled to have outpatient MRI for her hepatocellular carcinoma and then to have follow-up with Dr. Gipson Pulmonology was consulted Dr. Tracey recommended following the procalcitonin, Michelle a with IV antibiotics and they will decide further treatment from that point. Case was discussed with hospitalist patient be expected for admission. Critical Care Procedure Note Authorized and Performed by: Jono Khalil Total critical care time: Approximately 36 minutes Due to a high probability of clinically significant, life threatening deterioration, the patient required my highest level of preparedness to intervene emergently and I personally spent this critical care time directly and personally managing the patient. This critical care time included obtaining a history; examining the patient; pulse oximetry; ordering and review of studies; arranging urgent treatment with development of a management plan; evaluation of patient's response to treatment; frequent reassessment; and, discussions with other providers. This critical care time was performed to assess and manage the high probability of imminent, life-threatening deterioration that could result in multi-organ failure. It was exclusive of separately billable procedures and treating other patients and teaching time. Please see MDM section and the rest of the note for further information on patient assessment and treatment. Differential Diagnosis Differential Diagnosis: Pneumonia, COPD, emphysema, pneumothorax, pulmonary embolism Vital Signs Vital Signs: Vital Signs Temperature 98.8 F 12/04/24 07:32 Pulse Rate 101 H 12/04/24 07:32 Respiratory Rate 20 12/04/24 07:32 Blood Pressure 155/51 H 12/04/24 07:32 Pulse Oximetry 97 12/04/24 07:32 Oxygen Delivery Room Air 12/04/24 07:32 Temperature 101.4 F H 12/04/24 15:55 Pulse Rate 110 H 12/04/24 15:55 Respiratory Rate 22 H 12/04/24 15:55 Blood Pressure 126/43 L 12/04/24 15:55 Pulse Oximetry 94 12/04/24 15:55 Oxygen Delivery High Flow Nasal Cannula 12/04/24 15:28 Oxygen Flow Rate 2 12/04/24 15:28 Lab Data Lab results reviewed: Yes I reviewed the patient's lab results. 12/04/24 07:45 12/04/24 07:45 Labs: Lab Results 12/04/24 12/04/24 Range/Units 07:45 10:05 WBC 11.4 H (4.5-10.0) K/mm3 RBC 3.82 L (4.2-5.4) M/mm3 Hgb 11.3 L (12.0-15.0) g/dL Hct 36.6 L (37.0-47.0) % MCV 95.8 (80-100) fl MCH 29.6 (26-34) pg MCHC 30.9 L (32-36) g/dl RDW 13.2 (11.5-14.5) % Plt Count 318 (150-375) k/mm3 MPV 9.4 (7.4-10.4) fl Immature Gran % (Auto) 0.3 (0-0.5) % Neut % (Auto) 89.7 H (45.5-73.1) % Lymph % (Auto) 3.8 L (18.3-44.2) % [place] % (Auto) 5.5 (2.6-8.5) % Eos % (Auto) 0.3 (0-4.4) % Baso % (Auto) 0.4 (0.2-1.2) % Lymph # (Auto) 0.43 L (0.9-3.2) K/mm3 [place] # (Auto) 0.6 (0.1-0.6) K/mm3 Eos # (Auto) 0.0 (0-0.3) K/mm3 Baso # (Auto) 0.1 (0.0-0.1) K/mm3 Abs Immat Gran (auto) 0.03 (0.00-0.031) K/mm3 Absolute Neuts (auto) 10.3 H (1.3-6.7) K/mm3 Absolute Nucleated RBC 0.000 (0.0-0.012) K/mm3 Nucleated RBC % 0.0 (0.0-0.2) % Sodium 136 L (137-145) mmol/L Potassium 4.3 (3.4-5.0) mmol/L Chloride 97 L (98-107) mmol/L Carbon Dioxide 31 H (22-30) mmol/L Anion Gap 8 (4-12) mmol/L BUN 19 H (7-17) mg/dL Creatinine 1.07 H (0.7-1.0) mg/dL Estim Creat Clear Calc 29 ml/min Estimated GFR 51 L (59 - ) Glucose 137 H (65-110) mg/dL Calcium 10.1 (8.4-10.2) mg/dL Total Bilirubin 0.4 (0.2-1.3) mg/dL AST 33 (14-36) U/L ALT 20 (6-35) U/L Alkaline Phosphatase 105 (38-126) U/L Total Protein 8.3 H (6.3-8.2) g/dL Albumin 3.8 (3.5-5.1) g/dL Procalcitonin 0.2 ng/mL Urine Color Yellow (Yellow) Urine Appearance Clear (Clear) Urine pH 6.5 (5.0-9.0) Ur Specific [place] 1.016 (1.001-1.035) Urine Protein 1+ H (Negative) mg/dL Urine Glucose (UA) Negative (Negative) mg/dL Urine Ketones Negative (Negative) mg/dL Ur Blood (Man) 1+ H (Negative) Urine Nitrate Negative (Negative) Urine Bilirubin Negative (Negative) Urine Urobilinogen 0.2 (<2.0) mg/dL Add Ur Microanalysis Reviewed Leukocyte Esterase Rfl Trace H (Negative) EARNESTINE/UL Urine RBC 11-20 H (0-2) /hpf Urine WBC 0-5 (0-3) /hpf Ur Squamous Epith Cells Many H (Few) /hpf Urine Bacteria None seen /hpf Urine Casts 3-5 Imaging Data Radiologist's impression: Impressions Chest X-Ray 12/04/24 08:26 IMPRESSION: 1. Emphysema. 2. Unchanged consolidation right upper lung zone consistent with pneumonia. 3. Unchanged opacities in the bilateral lower lung zones, right greater than left which could represent additional pneumonia, asymmetric mild pulmonary edema, atelectasis or some combination thereof. Head CT 12/04/24 09:15 IMPRESSION: 1. 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 No acute intracranial process. 2. Age-related changes including mild diffuse volume loss and mild scattered white matter hypoattenuation consistent with chronic small vessel ischemic disease. Chest/Abdomen/Pelvis CT 12/04/24 09:20 IMPRESSION: 1. Severe emphysema with multifocal pneumonia in the right lung most prominent in the upper lobe with some interval progression in the right lower lobe. 2. Unchanged 2.7 x 1.5 cm subtle mass in the right hepatic lobe consistent with biopsy-proven hepatocellular carcinoma. 3. Bilateral nonobstructing nephrolithiasis. 4. Large amount of stool throughout the colon suggest diarrhea. ECG Data EKG #1: EKG Interpretation: normal rate, sinus rhythm, no ectopy, non-specific ST changes, normal QRS, NL axis and no acute changes Critical Care Time Critical Care Time Critical Care Time: Yes Total Critical Care Time: 36 Discharge Plan Discharge Clinical Impression: Pneumonia, Generalized weakness Patient Disposition: Still a Patient Condition: Serious
[2024-12-04] MEDS: ALBUTEROL SULFATE NEB 2.5 MG/3 ML INH 5 MG INHALATION (09:10)
[2024-12-04] MEDS: LACTATED RINGERS 1,000 ML 999 ML IV CONT (09:41)
[2024-12-04 10:25] LABS: Add Urine Microscopic? YES; Appearance Urine Clear (Clear); Glucose Urine UA Negative (Negative); Leukocyte Esterase Ur Trace LEU/UL (Negative); Nitrate Urine Negative (Negative); Specific Grav Ur 1.016 (1.001-1.035)
[2024-12-04 10:31] LABS: Need Manual Microscopic Reviewed
--- NOTE | 2024-12-04 13:12 | PM.IMHP ---
H&P: HPI History of Present Illness Date/Time: 12/04/24 13:12 Chief Complaint: Weakness Narrative: 69 y/o F with PMH of extensive past medical history, including but not limited to, recent diagnosis of hepatocellular carcinoma, severe obstructive lung disease on chronic home O2 2L with recent smoking cessation, iron deficiency anemia, chronic severe protein calorie malnutrition and GERD with prior esophageal stricture requiring dilatation presents here with generalized weakness. The patient presents here from home via EMS for further evaluation of generalized weakness. She reports this has been ongoing for the past 8 months. She denies worsening shortness of breath, worsening cough, fever, chills, body aches, abdominal pain, diarrhea, nausea, or vomiting. The patient is currently on treatment for pneumonia, she is unsure of the names of the 2 medications she is on. She has a history of recurrent pneumonia, severe COPD, chronic respiratory failure on 2L nasal cannula, and hepatocellular carcinoma. She follows with pulmonology at [facility]. Due to the generalized weakness she reports an increase in falls. She reports 3 occurred last night. She is unsure if she had a positive for negative head strike or if she had loss of consciousness. Her most recent admission here was from 11/20/24-11/23/24, she was transferred to [facility] for a higher level of pulmonary care. During this visit the patient was treated for pneumonia and underwent extensive pulmonary toileting. She was also noted to have involving right upper lobe scar/density in the right upper lobe that was now cavitary on the most recent CT. Patient is unsure if she saw infectious disease while at [facility], awaiting records. Initial VS at presentation: 98.8? F, HR 101, R 20, 155/61, and 97% on 3L nasal cannula. ED workup showed: WBC 11.4, hemoglobin 11.3, sodium 136, creatinine 1.07 and GFR 51, glucose 137, procalcitonin pending. UA showed 1+ protein/1+ blood/trace leuk esterase/11-20 RBC and many epithelial cells (likely contaminant). CXR showed emphysema, unchanged consolidation the right upper lobe consistent with pneumonia, unchanged opacities in bilateral lower lung zones with right greater than left which could represent additional pneumonia/asymmetric mild pulmonary edema/atelectasis or some combination there of. CT of the chest/abdomen/pelvis showed severe emphysema with multifocal pneumonia the right upper lobe most prominent in the upper lobe with some interval progression in the right lower lobe, unchanged 2.7 x 1.5 cm subtle mass in the right hepatic lobe consistent with biopsy-proven hepatocellular carcinoma, bilateral nonobstructing nephrolithiasis, and a large amount of stool throughout the colon suggesting diarrhea. Review of Systems Review of Systems: All systems reviewed & are unremarkable except as noted in HPI and below PMFSH Past Medical History Medical History Vitamin D deficiency B12 deficiency Mixed incontinence Liana esophagitis Peripheral neuropathy Raynaud disease OSWALD (iron deficiency anemia) Osteopenia RLS (restless legs syndrome) Chronic narcotic use On home O2 Chronic sinusitis Olecranon bursitis, left elbow PSVT (paroxysmal supraventricular tachycardia) Kidney stones Fibromyalgia Rheumatoid arthritis Constipation IBS (irritable bowel syndrome) GERD (gastroesophageal reflux disease) Lumbar radiculopathy Esophageal stricture Status post dilatation ILD (interstitial lung disease) Small amount of interstitial lung disease was seen on base of lungs on chest CT 03/25/2018 which was an abdomen and pelvis CT Essential hypertension Collagen vascular disease Hyperlipidemia, unspecified Anxiety 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, patient unsure of this diagnosis COPD (chronic obstructive pulmonary disease) With severe obstructive disease noted on recent PFTs October 2024 with significant decompensation compared to prior study Tobacco abuse Quit 08/2024 Surgical History Surgical History History of esophagogastroduodenoscopy (EGD) With history of esophageal dilatation of History of colonoscopy with polypectomy History of partial hysterectomy Status post insertion of spinal cord stimulator History of bladder suspension procedure History of appendectomy History of lumbar surgery Spinal cord stimulator implanted 05/23/21 Family History Family History Mother Patient's mother is , Onset Age: 72 Sibling Carcinoma of colon Ovarian cancer Lung cancer Rectal cancer Family history of malignant neoplasm of breast in first degree relative Father Brain aneurysm Cerebrovascular accident, Onset Age: 54 Other Arthritis COPD (chronic obstructive pulmonary disease) High cholesterol Hypertension Lung disease Neuropathy Social History Social History Social History: The patient reports that she has been since 2007 and lives alone. She has 1 son who lives in [place]. She quit smoking in August 2024 of months prior to that she smoked a pack of cigarettes per day for close to 60 years. She denies any significant alcohol use. Code status: DNR/DNI (she would be okay with pressors if needed for blood pressure support) Healthcare power of workers compensation defense attorney: Cole (son) or Romi (friend) Smoking packs per day: 1 Smoking cigarettes per day: 20.0 Years smoked: 60 Smoking pack-years: 60.00 Smoking status: Former smoker Second hand tobacco smoke exposure: Yes Smoking end date: 08/02/24 Additional smoking assessment comments: Using Nicotine patches AT TIMES Alcohol intake: never Substance use: never Substance use type: does not use Do You Feel Safe in your Home?: Yes Lack of Transportation: No Lack of Food: Never True Current Housing: I Have Housing Concerned About Future Housing: No Difficulty Paying Gas/Electric Bills: No Difficulty Paying for Meds: No Currently Unemployed: No Education: Trade/Vocational Certificate Difficulty w/ Childcare or Family Care: No Living arrangements: alone Occupation/Education: retired Gender identity (if verbalized by the patient): Female Spiritual care concerns: No Meds Home Medications and Allergies Home Medications ?Medication ?Instructions ?Recorded ?Confirmed ?Type aspirin 81 mg tablet,delayed 81 mg PO DAILY 06/02/19 11/19/24 History release (Adult Aspirin Regimen) cyclobenzaprine 5 mg tablet 5 mg PO Q12H 01/05/20 11/19/24 History oxycodone myristate 13.5 mg 13.5 mg PO Q12H 11/19/21 11/19/24 History capsule sprinkle extend release 12hr(DON'T CRUSH) (Xtampza ER) solifenacin 10 mg tablet (Vesicare) 5 mg PO HS 02/04/23 11/19/24 History cholecalciferol (vitamin D3) 125 125 mcg PO DAILY 07/24/23 11/19/24 History mcg (5,000 unit) tablet (Vitamin D3) guaifenesin 600 mg tablet, 1,200 mg PO Q12H 07/24/23 11/19/24 History extended release 12 hr (Mucinex) loratadine 10 mg tablet 10 mg PO DAILY 07/24/23 11/19/24 History albuterol sulfate 90 mcg/actuation See Rx Instructions .Route 03/15/24 11/19/24 History aerosol inhaler .COMPLEX PRN Shortness Of Breath Or Wheezing omeprazole 40 mg capsule,delayed 40 mg PO DAILY #90 caps 06/02/24 11/19/24 Rx release albuterol sulfate 2.5 mg/3 mL 2.5 mg (3 mL) inhalation Q4-6H PRN 06/07/24 11/19/24 Rx (0.083 %) solution for nebulization shortness of breath or wheezing #180 mL tiotropium 2.5 mcg-olodaterol 2.5 See Rx Instructions .Route 06/20/24 11/19/24 Rx mcg/actuation mist for inhalation .COMPLEX #4 grams (Stiolto Respimat) lovastatin 40 mg tablet 40 mg PO HS 08/02/24 11/19/24 History gabapentin 300 mg capsule 300 mg PO Q12H #180 caps 08/29/24 11/19/24 Rx ferrous sulfate 325 mg (65 mg See Rx Instructions .Route 10/17/24 11/19/24 Rx iron) tablet (FeroSul) .COMPLEX #30 tabs sennosides 8.6 mg-docusate sodium 2 tab-cap (2 x 8.6-50 mg) PO BID 11/07/24 11/19/24 Rx 50 mg tablet (Senokot-S) PRN Constipation #120 tabs fluticasone propionate 50 See Rx Instructions .Route 11/16/24 11/19/24 Rx mcg/actuation nasal .COMPLEX #48 grams spray,suspension metoprolol succinate 25 mg See Rx Instructions .Route 11/16/24 11/19/24 Rx tablet,extended release 24 hr .COMPLEX #90 tabs Allergies Allergy/AdvReac Type Severity Reaction Status Date / Time Penicillins Allergy Severe Anaphylaxis Verified 12/04/24 07:43 meperidine Allergy Intermediate Itching Verified 12/04/24 07:43 sulfamethoxazole (From Allergy Intermediate Mouth Verified 12/04/24 07:43 Bactrim) burning/redness trimethoprim (From Bactrim) Allergy Intermediate Mouth Verified 12/04/24 07:43 burning/redness mirtazapine AdvReac Mild Headache Verified 12/04/24 07:43 Vital Signs Vital Signs - 24 hr 12/04/24 07:32 12/04/24 07:39 12/04/24 07:44 Temperature 98.8 F Pulse Rate 101 H 103 H 99 Respiratory Rate 20 19 Blood Pressure 155/51 H 155/51 H Pulse Oximetry 97 90 Oxygen Delivery Room Air Oxygen Flow Rate 12/04/24 07:45 12/04/24 07:46 12/04/24 08:20 Temperature Pulse Rate 98 94 Respiratory Rate 25 H 20 Blood Pressure 127/52 L 100/55 L Pulse Oximetry 99 97 100 Oxygen Delivery Nasal Cannula Oxygen Flow Rate 3 12/04/24 08:37 12/04/24 08:46 12/04/24 09:14 Temperature Pulse Rate 95 94 97 Respiratory Rate 17 18 22 H Blood Pressure 104/57 L 112/55 L 100/60 Pulse Oximetry 100 97 99 Oxygen Delivery Oxygen Flow Rate 12/04/24 09:16 12/04/24 09:31 12/04/24 09:46 Temperature Pulse Rate 97 107 H 109 H Respiratory Rate 17 23 H 23 H Blood Pressure 125/55 L 113/55 L 126/51 L Pulse Oximetry 100 99 96 Oxygen Delivery Oxygen Flow Rate 12/04/24 10:01 12/04/24 10:16 12/04/24 10:31 Temperature Pulse Rate 110 H 104 H 104 H Respiratory Rate 19 19 29 H Blood Pressure 104/55 L 115/52 L 109/52 L Pulse Oximetry 97 98 97 Oxygen Delivery Oxygen Flow Rate 12/04/24 10:46 12/04/24 11:01 12/04/24 11:16 Temperature Pulse Rate 100 97 96 Respiratory Rate 26 H 27 H 29 H Blood Pressure 105/49 L 109/46 L 118/46 L Pulse Oximetry 97 98 98 Oxygen Delivery Oxygen Flow Rate 12/04/24 11:31 12/04/24 11:51 12/04/24 12:03 Temperature Pulse Rate 93 102 H 93 Respiratory Rate 28 H 26 H Blood Pressure 112/48 L 109/55 L 106/51 L Pulse Oximetry 99 94 Oxygen Delivery Oxygen Flow Rate 12/04/24 12:04 12/04/24 12:04 Temperature Pulse Rate 97 102 H Respiratory Rate Blood Pressure 107/52 L 101/46 L Pulse Oximetry Oxygen Delivery Oxygen Flow Rate Exam Const: General: comfortable and no acute distress Other: , female, cachectic, chronically ill-appearing, nontoxic appearance HENMT: Face/Nose/Sinus: Normal nares present Mouth: Yes moist mucous membranes Eyes: General: appearance normal, both eyes and all related structures Sclera: sclerae normal Pupils: Equal, round and reactive pupils present EOM: EOMs intact bilaterally Resp: Effort & Inspection: normal respiratory effort Other: Nasal cannula place, tolerating well. Diminished breath sounds in mid to lower lobes bilaterally. Cardio: Rate: regular rate Rhythm: regular rhythm Other: S1-S2 present without murmur, rub, ectopy GI: Other: Abdomen soft, nondistended, nontender. Normoactive bowel sounds in all quadrants. Skin: General skin exam: normal color and no rashes or lesions noted Wounds: no wounds Neuro: Speech: normal speech Motor exam (neuro): 5/5 motor strength present throughout Sensory Exam: normal sensation Other: Generalized weakness, A&O x4 Extrem: General: normal to inspection Psych: Mental Status: mental status grossly normal Affect: normal affect Other: Good insight and judgment, pleasant H&P: Results Labs Labs: Short CBC 12/04/24 Range/Units 07:45 WBC 11.4 H (4.5-10.0) K/mm3 Hgb 11.3 L (12.0-15.0) g/dL Hct 36.6 L (37.0-47.0) % Plt Count 318 (150-375) k/mm3 BMP 12/04/24 07:45 Sodium 136 L Potassium 4.3 Chloride 97 L Carbon Dioxide 31 H BUN 19 H Creatinine 1.07 H Glucose 137 H Calcium 10.1 Liver Function 12/04/24 Range/Units 07:45 Total Bilirubin 0.4 (0.2-1.3) mg/dL AST 33 (14-36) U/L ALT 20 (6-35) U/L Alkaline Phosphatase 105 (38-126) U/L Albumin 3.8 (3.5-5.1) g/dL Urine 12/04/24 Range/Units 10:05 Urine Color Yellow (Yellow) Urine Appearance Clear (Clear) Urine pH 6.5 (5.0-9.0) Ur Specific [place] 1.016 (1.001-1.035) Urine Protein 1+ H (Negative) mg/dL Urine Glucose (UA) Negative (Negative) mg/dL Assessment and Plan Assessment and plan (1) Generalized weakness: Code(s): R53.1 - Weakness Status: Acute Assessment and Plan: - generalized weakness resulting in increased falls - fall precautions - up with assistance - PT/OT eval and treat - likely multifactorial: chronically ill at baseline, multiple hospitalizations, recurrent PNA, cachexia secondary to severe pulmonary disease (2) Right upper lobe pneumonia: Qualifiers: Pneumonia type: due to unspecified organism Qualified Code(s): J18.9 - Pneumonia, unspecified organism Code(s): J18.9 - Pneumonia, unspecified organism Status: Acute Assessment and Plan: - CT chest/abd/pelvis, 12/04: 1. Severe emphysema with multifocal pneumonia in the right lung most prominent in the upper lobe with some interval progression in the right lower lobe. 2. Unchanged 2.7 x 1.5 cm subtle mass in the right hepatic lobe consistent with biopsy-proven hepatocellular carcinoma. 3. Bilateral nonobstructing nephrolithiasis. 4. Large amount of stool throughout the colon suggest diarrhea. - recent transfer to [facility] on 11/23 and discharged on 11/30 -> requesting records. Discharged home on abx x2 -> patient unsure of names. - pulmonology consulted - check procalcitonin - started on cefepime, doxycycline, and vancomycin on 12/04 - reviewed previous lab work: IgG mycoplasma titer is 1138 on 11/20 with a negative mycoplasma PCR Biopsies from bronchoscopy from 11/23 showed benign respiratory epithelium with inflammation x2, benign bronchial cells and neutrophils x1, and acellular specimen x1 - pulmonary hygiene - WBC 11.4, no fevers since admission, mild tachycardia -> blood cultures obtained on 12/04, follow (3) COPD (chronic obstructive pulmonary disease): Qualifiers: COPD type: unspecified COPD Qualified Code(s): J44.9 - Chronic obstructive pulmonary disease, unspecified Code(s): J44.9 - Chronic obstructive pulmonary disease, unspecified Status: Chronic Assessment and Plan: - continue [facility] - follows with pulmonology outpatient at [facility] (4) Chronic respiratory failure with hypoxia and hypercapnia: Code(s): J96.11 - Chronic respiratory failure with hypoxia; J96.12 - Chronic respiratory failure with hypercapnia Status: Chronic Assessment and Plan: - chronic, advanced - chronic home O2 -> 2L NC, currently requiring 3L (5) Pulmonary cachexia due to chronic obstructive pulmonary disease: Code(s): R64 - Cachexia; J44.9 - Chronic obstructive pulmonary disease, unspecified Status: Chronic Assessment and Plan: - horse trekking guide previously consulted, will consult for this admission. most recent note from 09/06, patient on a heart healthy diet with Ensure Enlive TID and nutrition ice cream BIDS. - BMI 14.6 upon admission (6) Tobacco abuse: Code(s): Z72.0 - Tobacco use Status: Acute Assessment and Plan: - cessation - previously reported smoking during most recent admission in November of 2024 - smoking 2-3 cigarettes per day, reporting cessation at the end of October/early November - offered nicotine patch (7) Essential hypertension: Code(s): I10 - Essential (primary) hypertension Status: Chronic Assessment and Plan: - chronic, currently 101/46 - continue home medications: metoprolol - monitor Plan Patient has hx of diarrhea that was reported during her most recent admission. C diff negative on 11/20. C.diff and stool cultures ordered in the ED due to diarrhea seen on CT. Denying diarrhea at this time. Diet: heart healthy GI Prophylaxis: n/a DVT Prophylaxis: Lovenox SQ IV fluids: 1L bolus -> 150 mL/hr Lines/Tubes: Peripheral IV Code Status: DNR Quality VTE Prophylaxis VTE prophylaxis: pharmacologic ordered Hospitalist MIPS Advance Care Plan I have confirmed that the patient's Advanced Care Plan is present, code status is documented, or surrogate decision maker is listed in patient medical record.: Yes Medication Reconciliation I have utilized all available resources to obtain, update and review the patients current medications (includes all prescriptions, OTC, herbals, cannabis, and nutritional supplements).: Yes
[2024-12-04 13:53] LABS: Procalcitonin 0.2 ng/mL
--- NOTE | 2024-12-04 14:30 | PC.NURSE ---
per micromedex, the vancomycin and lactated ringers can be hung together
[2024-12-04] MEDS: CEFEPIME 1 GM in SODIUM CHLORIDE 0.9% IV 50 ML 100 ML IVPB (14:37)
[2024-12-04] MEDS: IPRATROPIUM 0.5 MG/ALBUTEROL SULFATE 2.5 MG AMPUL.NEB 3 ML INHALATION ×2 (15:20→19:48)
[2024-12-04] MEDS: ACETAMINOPHEN 325 MG TABLET 650 MG PO (16:04)
[2024-12-04] MEDS: VANCOMYCIN HCL 1,000 MG in SODIUM CHLORIDE 0.9% IV 250 ML 250 MG IVPB (16:05)
[2024-12-04] MEDS: LACTATED RINGERS 1,000 ML 150 ML IV CONT (16:05)
--- NOTE | 2024-12-04 16:10 | ADMGEN ---
This patient, Melyssa Mccall, was admitted to Medical Room 345-01. Patient/family oriented to hospital policies and general routines including ID bracelet, bed and alarms, visiting hours, pain management, procedures, bathroom and other care routines, personal items, smoking policy, room service/diet, and visiting hours. Information on how to activate the Rapid Response Team has been discussed. Patient/Family are encouraged to report perceived risks to care and to ask questions if they do not understand what they are told or what they should do.
[2024-12-04] MEDS: DOXYCYCLINE IV 100 MG in SODIUM CHLORIDE 0.9% IV 100 ML IVPB (17:44)
[2024-12-04 18:31] LABS: MRSA (PCR) NOT DETECTED (NOT DETECTE)
[2024-12-05] VITALS (18 sets, daily range): BP systolic 104–149; BP diastolic 40–77; PULSE 90–119; RESP 16–18; TEMP 36.2–36.4; O2SAT 92–99; BMI 14.8
[2024-12-05] MEDS: CEFEPIME 1 GM in SODIUM CHLORIDE 0.9% IV 50 ML 100 ML IVPB ×2 (00:05→11:48)
[2024-12-05] MEDS: IPRATROPIUM 0.5 MG/ALBUTEROL SULFATE 2.5 MG AMPUL.NEB 3 ML INHALATION ×4 (01:47→20:25)
[2024-12-05] MEDS: DOXYCYCLINE IV 100 MG in SODIUM CHLORIDE 0.9% IV 100 ML IVPB (05:55)
[2024-12-05 06:03] LABS: Hematocrit 31.1 % (37.0-47.0); Hemoglobin 9.3 g/dL (12.0-15.0); Immature Granulocyte Percent A 0.7 % (0-0.5); Lymphocytes Absolute Auto 0.62 K/mm3 (0.9-3.2); Mean Corpuscular HGB Conc 29.9 g/dl (32-36); Mean Corpuscular Hemoglobin 29.2 pg (26-34); Mean Corpuscular Volume 97.5 fl (80-100); Nucleated Red Blood Cells Absolute Auto 0.000 K/mm3 (0.0-0.012); Nucleated Red Blood Cells Perc 0.0 % (0.0-0.2); Platelet Count Result 246 k/mm3 (150-375); Red Blood Count 3.19 M/mm3 (4.2-5.4); White Blood Count 11.2 K/mm3 (4.5-10.0)
[2024-12-05 06:27] LABS: Alanine Aminotransferase 18 U/L (6-35); Albumin Level 3.1 g/dL (3.5-5.1); Alkaline Phosphatase 118 U/L (38-126); Anion Gap 4 mmol/L (4-12); Aspartate Amino Transferase 38 U/L (14-36); Bilirubin,Total 0.5 mg/dL (0.2-1.3); Blood Urea Nitrogen 11 mg/dL (7-17); Calcium 9.1 mg/dL (8.4-10.2); Carbon Dioxide 30 mmol/L (22-30); Chloride 98 mmol/L (98-107); Estimated CRCL calculation 44 ml/min; Estimated Glomerular Filt Rate > 60; Glucose 113 mg/dL (65-110); Potassium 3.7 mmol/L (3.4-5.0); Sodium 132 mmol/L (137-145); Total Protein 6.8 g/dL (6.3-8.2)
--- NOTE | 2024-12-05 06:52 | PM.CNPUL ---
Assessment and Plan Assessment and plan (1) Mycobacterial disease, pulmonary: Code(s): A31.0 - Pulmonary mycobacterial infection Status: Acute Assessment and Plan: 10/21/2024: CT scan of the chest reviewed with radiologist and compared to 10/2023, 08/02/2024, 08/31/2024 with worsening right upper lobe low-attenuation lung nodule consistent with atelectasis, mucous retention or pneumonia. 11/01/2024 through 11/07/2024: Admitted to [facility] with a CT scan chest now demonstrating larger right upper lobe consolidation with cavitary lung nodules. Liver biopsy returned for hepatocellular. plan per oncology was for patient to get strong enough to undergo outpatient chemotherapy. 11/03/2024: QuantiFERON gold negative. serologies on 11/01/2024 anti CCP less than 16 11/19/2024 through 11/23/2024: Admitted to [facility] with shortness of breath. CT scan of the chest with worsening right upper lobe infiltrate and progressive cavitary lesions. Treated with pulmonary hygiene, antibiotics, oxygen. 11/22/2024 underwent bronchoscopy to assess for endobronchial lesion or cancer and there was no obstructing mass. Secretions were removed. Biopsies were obtained and were negative for malignancy. Given patient's lack of response she was transferred to [facility] for higher level of care pulmonary, infectious disease and oncology evaluation . Dr. Leonela samson. Transferred on 11/23/2024. 11/24/24: bronchial wash: AFB smear 1+ positive with 4-36 AFB per 1000 field at 400 X. 12/04/2024: Apparently discharged from [facility] on 11/30/24 on 2 antibiotics, Perhaps linezolid. does not sound like any additional procedures were obtained. Presented with weakness and recent falls. She had bilateral wheezes. Room air saturations 97%. 2 L nasal cannula saturation 94%. Temperature was 101.4?. White blood cell count 11.4, creatinine 1.07. Procalcitonin 0.2. MRSA nasal swab PCR negative CT chest abdomen pelvis with unchanged right hepatic lobe carcinoma, severe emphysema worsening right upper lobe consolidations with some new progression in the right lower lobe. Empirically started on cefepime, doxycycline and vancomycin. 12/05/24: Overall the patient tells me she is the same as yesterday. She has rest shortness of breath and dyspnea on exertion. She has cough with no phlegm production. Currently she is on 3 L nasal cannula saturations 94%. White blood cell count 11.2, creatinine 0.68. BNP 1580. procalcitonin increased from 0.2 on 12/04/2024 to 0.7 today. Yesterday she was 2.14 L positive. We etiology of right upper lobe and lower lobe dense consolidations with cavity in the setting of COPD and bronchial wash with AFB smear positive and QuantiFERON gold negative suggests patient has non mycobacterial lung disease. Plan: I have spoken to the hospitalist and he will call the Infectious Disease team at [facility] to see if they are comfortable consult in on this patient. If they are not patient should be transferred to [facility] for Infectious Disease consultation. Patient currently on vancomycin, cefepime and doxycycline for possible bacterial infection and I think this is unlikely given her mild hypoxemia, mild leukocytosis and procalcitonin 0.7. Will defer to Infectious Disease. I will order induced sputum for AFB q.a.m. a.m. x3 days. Discussed with patient and her in the room. discussed with Dr. Huntley (2) COPD (chronic obstructive pulmonary disease): Qualifiers: COPD type: unspecified COPD Qualified Code(s): J44.9 - Chronic obstructive pulmonary disease, unspecified Code(s): J44.9 - Chronic obstructive pulmonary disease, unspecified Status: Chronic Assessment and Plan: Patient with 90 pack year tobacco use, Currently smoking 5 cigarettes a day. 11/23/2019: Alpha 1 anti trypsin genotype MM. ?Alpha 1 anti trypsin level 160, normal. PFTs 12/14/2019 with an FEV1 of 1.49 L, 60% predicted, ratio 49% predicted, positive bronchodilator response, air trapping and severely decreased DLCO that remain moderately decreased when adjusted for alveolar volume. CT scan of the chest 08/31/2024 and 01/15/2021 with severe panlobular emphysema all lung hill. Chronic hypoxemic respiratory failure requiring 1 L at rest, 2 L with activity and 1 L with sleep. Chronic hypercarbic respiratory failure. maintained on Stiolto Respimat. She did not have any help with a trial of breztri as an outpatient. 08/31/2024, white blood cell count 8.1, eosinophils 3% equals 243 per micro L. Currently patient has no evidence of a COPD exacerbation. Plan: I will continue her home regimen of DuoNebs q.6 hours, will add guaifenesin 1200 mg p.o. b.i.d. and Mucomyst nebulizers q.6 hours to help with expectoration. (3) Chronic respiratory failure with hypoxia and hypercapnia: Code(s): J96.11 - Chronic respiratory failure with hypoxia; J96.12 - Chronic respiratory failure with hypercapnia Status: Chronic Assessment and Plan: Patient with chronic hypoxemic respiratory failure prescribed no oxygen at rest but she uses 2 L at rest, 2 L with activity and she is prescribed a noninvasive ventilator at night through [facility]. Patient tells me she is no longer using the noninvasive ventilator at night and would like it removed from her house. Plan: We will talk to [facility] and obtain a recent download to confirm she is not using the machine. I will perform an overnight oximetry on 3 L tonight. (4) Hepatocellular carcinoma: Code(s): C22.0 - Liver cell carcinoma Status: Acute Assessment and Plan: 11/03/2024: Needle biopsy of a liver demonstrated hepatocellular carcinoma. Patient is followed by Oncology with an ultimate plan of her getting strong enough to tolerate outpatient chemotherapy. plan: Patient remains debilitated. Physical therapy has been ordered. History of Present Illness History of Present Illness Consult date: 12/05/24 Chief complaint: pneumonia,generalized weakness Narrative: 69-year-old with a history of hypertension, hyperlipidemia, SVT, the esophageal ring status post dilation, chronic sinusitis, GOLD grade 2 group E COPD on home oxygen and NIV. Patient admitted to [facility] from 08/31/2024 through 09/07/2024 for COPD and pneumonia with hypercarbic respiratory failure. ABG on 08/02/2024 of 7.45/60/128 on 2 L nasal cannula and a blood gas on 09/06/2023 of 7.34/71/ 63 on 2 L nasal cannula.? Patient was treated for COPD and pneumonia with Levaquin, Flagyl, DuoNebs and guaifenesin.? For her hypercarbic respiratory failure she had [facility] insurance and was approved for BiPAP no rate, IPAP 9, EPAP 4 in 2 L bleed in.? This provided adequate oxygenation by overnight oximetry and ABG at the end of the night of 7.40/52/64.? She was discharged on Levaquin for 7 days, Flagyl for 5 days, Stiolto Respimat and rescue albuterol.? She was to continue guaifenesin 600 p.o. b.i.d., Cornet flutter valve and home O2 assessment demonstrated she required 2 L at rest and 2 L with activity.? Plan was for follow-up in the Pulmonary Clinic in 4 weeks for compliance check and to reassess her for CT scan to follow her worsening right upper lobe infiltrate. 09/20/2024: EGD esophagitis was normal.? Nonobstructing ring with dilatation. 09/29/2024: PCP office visit note.? 2 L nasal cannula saturation 93%.? Weight 90 lb.? Respiratory medicines include guaifenesin 600 mg p.o. q.12 hours.? Albuterol inhaler p.r.n., albuterol nebulizer p.r.n., Stiolto Respimat, Flonase nasal spray 1 b.i.d. p.r.n. Clinic on 10/06/2024: stated she had done well and back to her baseline breathing 95% no normal walking more. She could walk 1 block. Had gained 1 lb. Was on Stiolto Respimat wearing 2 L at rest with saturations 92. 2 L with activity saturations ranging 66-90 and 2 L bleed in at night. Continue to smoke 5 cigarettes a day. Cat score was 19. Download compliance with poor compliance at 40% and no usage after 09/26/2024. 10/21/2024: CT scan of the chest reviewed with radiologist and compared to 10/2023, 08/02/2024, 08/31/2024 with worsening right upper lobe low-attenuation lung nodule consistent with atelectasis, mucous retention or pneumonia. PFTs demonstrated severe obstructive abnormality consistent with gold grade 3 group E COPD. with a significant decrease in FVC, FEV1 and diffusing capacity compared to 12/14/2019 and a significant increase in residual volume and functional residual capacity all consistent with worsening COPD. 6 minute walk required no oxygen at rest and 2 L with activity. 11/01/2024 through 11/07/2024: Admitted to [facility] with a CT scan chest now demonstrating larger right upper lobe consolidation with cavitary lung nodules. Liver biopsy returned for hepatocellular. plan per oncology was for patient to get strong enough to undergo outpatient chemotherapy. 11/03/2024: QuantiFERON gold negative. serologies on 11/01/2024 anti CCP less than 16 11/19/2024 through 11/23/2024: Admitted to [facility] with shortness of breath. CT scan of the chest with worsening right upper lobe infiltrate and progressive cavitary lesions. Treated with pulmonary hygiene, antibiotics, oxygen. 11/22/2024 underwent bronchoscopy to assess for endobronchial lesion or cancer and there was no obstructing mass. Secretions were removed. Biopsies were obtained and were negative for malignancy. Given patient's lack of response she was transferred to [facility] for higher level of care pulmonary and oncology treatments. Dr. Leonela samson. Transferred on 11/23/2024. 11/20/2024 IgG mycoplasma titer 1138 with negative mycoplasma PCR. 11/24/24: bronchial wash: AFB smear 1+ positive with 4-36 AFB per 1000 field at 400 X. 12/04/2024: Apparently discharged from [facility] on 11/30/24 on 2 antibiotics, Perhaps linezolid. does not sound like any additional procedures were obtained. Presented with weakness and recent falls. She had bilateral wheezes. Room air saturations 97%. 2 L nasal cannula saturation 94%. Temperature was 101.4?. White blood cell count 11.4, creatinine 1.07. Procalcitonin 0.2. MRSA nasal swab PCR negative CT chest abdomen pelvis with unchanged right hepatic lobe carcinoma, severe emphysema worsening right upper lobe consolidations with some new progression in the right lower lobe. Empirically started on cefepime, doxycycline and vancomycin. 12/05/24: Overall the patient tells me she is the same as yesterday. She has rest shortness of breath and dyspnea on exertion. She has cough with no phlegm production. Currently she is on 3 L nasal cannula saturations 94%. White blood cell count 11.2, creatinine 0.68. BNP 1580. procalcitonin increased from 0.2 on 12/04/2024 to 0.7 today. Yesterday she was 2.14 L positive. DATA: 12/04/2024: EXAMINATION: CT chest abdomen pelvis wo con INDICATION: Pneumonia. Trauma. COMPARISON: Chest CT dated 11/19/[address] abdomen and pelvis dated 08/02/2024 FINDINGS: CHEST CT: Severe emphysema with biapical calcified pleural parenchymal scarring. Unchanged region of consolidation with air bronchograms in the right upper lobe which has developed since 08/02/2024 consistent with pneumonia. Again seen is septal line thickening in the right middle and lower lobes with additional patchy regions of consolidation at the basilar right lower lobe consistent with pneumonia. There are few scattered small calcified pulmonary nodules in both lungs along with calcified mediastinal lymph nodes consistent with old granulomatous disease. No pleural effusion. Heart size normal. Atherosclerotic coronary artery calcification. No pericardial effusion. T7 laminectomy and spinal stimulator lead position in the posterior central canal at the level of T6-T7. Chronic mild anterior wedging of T7. ABDOMEN/PELVIS CT: Splenic calcification consistent with old granulomatous disease. Very subtle 2.7 x 1.5 cm Right hepatic lobe mass along the gallbladder fossa consistent with biopsy-proven hepatocellular carcinoma The gallbladder, pancreas and bilateral adrenal glands are normal. Mild cortical atrophy at the lower pole of the right kidney likely sequela prior infection or infarction. Bilateral nonobstructing nephrolithiasis with a couple 1-2 mm stones in the right kidney and 14 x 4 mm stone at the left kidney. Large amount of liquid appearing stool suggestive of diarrhea. No bowel obstruction. The appendix is not visualized. No pericecal inflammatory change to suggest acute appendicitis. Bladder is normal. The uterus is not identified and has likely been surgically resected. No free intraperitoneal gas or fluid. No pathologically enlarged abdominal or pelvic lymphadenopathy. Mild lumbar spondylosis. IMPRESSION: 1. Severe emphysema with multifocal pneumonia in the right lung most prominent in the upper lobe with some interval progression in the right lower lobe. 2. Unchanged 2.7 x 1.5 cm subtle mass in the right hepatic lobe consistent with biopsy-proven hepatocellular carcinoma. 3. Bilateral nonobstructing nephrolithiasis. 4. Large amount of stool throughout the colon suggest diarrhea. 09/07/2024: Home O2 assessment: Rest room air saturation 86%. Rest nasal cannula 1 L saturation 88%. Rest nasal cannula 2 L saturation 91%. Exercise nasal cannula 2 L saturation 90%. Patient requires 2 L with rest and 2 L with activity. 09/07/24: Patient wore her home BiPAP no rate, IPAP 9, EPAP 4 and 2 L bleed in with an over the mouth under the nose mask. She said she wore the mask for 6-1/2 hours and slept well and feels refreshed this morning. Overnight oximetry on these settings with recording duration of 6 hours and 52 minutes, average saturation 92%. Low saturation 87%. Time with saturation less than or equal to 88% was 3 minutes. Oxygen desaturation index 0.6. ?Patient had ABG at the end of the night on these settings with a pH of 7.40/52/64. 08/31/24: EXAMINATION: CTA chest PE protocol DATE: 08/31/2024 11:02 INDICATION: Shortness of breath TECHNIQUE: Computed tomography (CT) pulmonary angiogram of the chest was performed with 100 mL Omnipaque-350 intravenous contrast. Additional 3D reconstructions utilizing coronal maximum intensity projection (MIP) were performed. Automated exposure control and iterative reconstruction technique were employed. The dose-length product was 151.66 mGy-cm. COMPARISON: 08/02/2024 and 12/08/2023 FINDINGS: No pulmonary embolism. Severe emphysema with chronic partially calcified by apical pleural-parenchymal scarring. There is been some progression of low-attenuation fluid/mucus within several of the cystic airspace in the right upper lobe which are new since 12/08/2023 consistent with pneumonia. Unchanged chronic reticulonodular opacities with a few small calcified nodules in the basilar right middle lobe and lingula consistent with sequela of chronic pneumonia. No pleural effusion. Heart size is normal. Atherosclerotic coronary artery calcific lesion. No pericardial effusion. Thoracic aorta is normal in caliber. No pathologically enlarged thoracic lymphadenopathy. 1 cm cyst and 13 x 5 x 3 mm nonobstructing stone at the upper pole the left kidney. There is scattered cortical scarring in the right kidney consistent with sequela of prior infection or infarction. Additional 2 mm nonobstructing stone at the lower pole of the right kidney. Mild thoracic spondylosis with chronic minimal anterior wedging of a few mid and lower thoracic vertebral bodies. Spinal stimulator leads which terminate at the posterior central canal at the level of T6-T7. IMPRESSION: 1. No pulmonary embolism. 2. Severe emphysema with right upper lobe pneumonia. 3. Bilateral nonobstructing nephrolithiasis. --------- 10/27/2022 EXAMINATION: CT lung screening INDICATION: Personal history of nicotine dependence, current smoker with 50 pack year history COMPARISON: 10/25/2021 FINDINGS: There is severe emphysema. There is a stable 5 mm nodule of the left upper lobe. There is stable 3 mm nodule of the right upper lobe. The lungs are free of acute opacities. No pleural effusion or pneumothorax. There is scarring and calcification of the lung apices. Calcified coronary artery atherosclerosis is noted. No pathologically enlarged thoracic lymph nodes are identified. The heart size is normal. There is mild thoracic spondylosis. IMPRESSION: 1. Lung-RADS category 2: Benign appearance or behavior. Continue annual screening with noncontrast low-dose chest CT in 12 months. 12/19/2019 PULMONARY FUNCTION TESTS Results are reliable and reproducible. Spirometry: FEV1 is 60%, moderately decreased, 1.49 L. FVC is 90% normal. Decreased FEV1% consistent with airflow obstruction. . There is a 14% increase in FEV1 with bronchodilator, 200 ml, which is significant. Lung volumes: Total lung capacity 107% normal. RV/TLC increased 48% and consistent with air trapping. Airway resistance increased 336%. Diffusion: DLCO moderately reduced 35%. Flow volume loop: Scooping of the expiratory limb. IMPRESSION: Moderate obstructive ventilatory impairment with good response to bronchodilator, air trapping, moderate diffusion impairment. This is consistent with COPD. 11/23/2019: Alpha 1 anti trypsin genotype MM. ?Alpha 1 anti trypsin level 160, normal. Review of Systems Constitutional: Constitutional: Reports no additional constitutional complaints Eyes: Eyes: Reports no additional eye complaints ENT: Reports system reviewed and no additional complaints, except as documented Cardiovascular: Cardiovascular: Reports no additional cardiovascular complaints Respiratory: Respiratory: Reports no additional respiratory complaints Gastrointestinal: Gastrointestinal: Reports no additional gastrointestinal complaints Musculoskeletal: Musculoskeletal: Reports no additional musculoskeletal complaints Neurologic: Reports system reviewed and no additional complaints, except as documented Psychiatric: Psychiatric: Reports no additional psychiatric complaints Endocrine: Endocrine: Reports no additional endocrine complaints Hematologic/Lymphatic: Hematologic/Lymphatic: Reports no additional hematologic/lymphatic complaints Allergic/Immunologic: Allergic/Immunologic: Reports no additional allergic/immunologic complaints [facility] Past Medical History Medical History Vitamin D deficiency B12 deficiency Mixed incontinence Liana esophagitis Peripheral neuropathy Raynaud disease OSWALD (iron deficiency anemia) Osteopenia RLS (restless legs syndrome) Chronic narcotic use On home O2 Chronic sinusitis Olecranon bursitis, left elbow PSVT (paroxysmal supraventricular tachycardia) Kidney stones Fibromyalgia Rheumatoid arthritis Constipation IBS (irritable bowel syndrome) GERD (gastroesophageal reflux disease) Lumbar radiculopathy Esophageal stricture Status post dilatation ILD (interstitial lung disease) Small amount of interstitial lung disease was seen on base of lungs on chest CT 03/25/2018 which was an abdomen and pelvis CT Essential hypertension Collagen vascular disease Hyperlipidemia, unspecified Anxiety 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, patient unsure of this diagnosis COPD (chronic obstructive pulmonary disease) With severe obstructive disease noted on recent PFTs October 2024 with significant decompensation compared to prior study Tobacco abuse Quit 08/2024 Surgical History Surgical History History of esophagogastroduodenoscopy (EGD) With history of esophageal dilatation of History of colonoscopy with polypectomy History of partial hysterectomy Status post insertion of spinal cord stimulator History of bladder suspension procedure History of appendectomy History of lumbar surgery Spinal cord stimulator implanted 05/23/21 Family History Family History Mother Patient's mother is , Onset Age: 72 Sibling Carcinoma of colon Ovarian cancer Lung cancer Rectal cancer Family history of malignant neoplasm of breast in first degree relative Father Brain aneurysm Cerebrovascular accident, Onset Age: 54 Other Arthritis COPD (chronic obstructive pulmonary disease) High cholesterol Hypertension Lung disease Neuropathy Social History Social History Social History: The patient reports that she has been since 2007 and lives alone. She has 1 son who lives in [place]. She quit smoking in August 2024 of months prior to that she smoked a pack of cigarettes per day for close to 60 years. She denies any significant alcohol use. Code status: DNR/DNI (she would be okay with pressors if needed for blood pressure support) Healthcare power of erisa attorney: Cole (son) or Romi (friend) Smoking packs per day: 1 Smoking cigarettes per day: 20.0 Years smoked: 60 Smoking pack-years: 60.00 Smoking status: Former smoker Second hand tobacco smoke exposure: Yes Additional smoking assessment comments: Using Nicotine patches AT TIMES Alcohol intake: never Substance use: never Substance use type: does not use Do You Feel Safe in your Home?: Yes Lack of Transportation: No Lack of Food: Never True Current Housing: I Have Housing Concerned About Future Housing: No Difficulty Paying Gas/Electric Bills: No Difficulty Paying for Meds: No Currently Unemployed: No Education: Trade/Vocational Certificate Difficulty w/ Childcare or Family Care: No Living arrangements: alone Occupation/Education: retired Gender identity (if verbalized by the patient): Female Spiritual care concerns: No Meds Home Medications and Allergies Home Medications ?Medication ?Instructions ?Recorded ?Confirmed ?Type aspirin 81 mg tablet,delayed 81 mg PO DAILY 06/02/19 12/04/24 History release (Adult Aspirin Regimen) cyclobenzaprine 5 mg tablet 5 mg PO Q12H 01/05/20 12/04/24 History oxycodone myristate 13.5 mg 13.5 mg PO Q12H 11/19/21 12/04/24 History capsule sprinkle extend release 12hr(DON'T CRUSH) (Xtampza ER) solifenacin 10 mg tablet (Vesicare) 5 mg PO HS 02/04/23 12/04/24 History cholecalciferol (vitamin D3) 125 125 mcg PO DAILY 07/24/23 12/04/24 History mcg (5,000 unit) tablet (Vitamin D3) guaifenesin 600 mg tablet, 1,200 mg PO Q12H 07/24/23 12/04/24 History extended release 12 hr (Mucinex) loratadine 10 mg tablet 10 mg PO DAILY 07/24/23 12/04/24 History albuterol sulfate 90 mcg/actuation See Rx Instructions .Route 03/15/24 12/04/24 History aerosol inhaler .COMPLEX PRN Shortness Of Breath Or Wheezing omeprazole 40 mg capsule,delayed 40 mg PO DAILY #90 caps 06/02/24 12/04/24 Rx release albuterol sulfate 2.5 mg/3 mL 2.5 mg (3 mL) inhalation Q4-6H PRN 06/07/24 12/04/24 Rx (0.083 %) solution for nebulization shortness of breath or wheezing #180 mL tiotropium 2.5 mcg-olodaterol 2.5 See Rx Instructions .Route 06/20/24 12/04/24 Rx mcg/actuation mist for inhalation .COMPLEX #4 grams (Stiolto Respimat) lovastatin 40 mg tablet 40 mg PO HS 08/02/24 12/04/24 History gabapentin 300 mg capsule 300 mg PO Q12H #180 caps 08/29/24 12/04/24 Rx ferrous sulfate 325 mg (65 mg See Rx Instructions .Route 10/17/24 12/04/24 Rx iron) tablet (FeroSul) .COMPLEX #30 tabs sennosides 8.6 mg-docusate sodium 2 tab-cap (2 x 8.6-50 mg) PO BID 11/07/24 12/04/24 Rx 50 mg tablet (Senokot-S) PRN Constipation #120 tabs fluticasone propionate 50 See Rx Instructions .Route 11/16/24 12/04/24 Rx mcg/actuation nasal .COMPLEX #48 grams spray,suspension metoprolol succinate 25 mg See Rx Instructions .Route 11/16/24 12/04/24 Rx tablet,extended release 24 hr .COMPLEX #90 tabs Allergies Allergy/AdvReac Type Severity Reaction Status Date / Time Penicillins Allergy Severe Anaphylaxis Verified 12/04/24 07:43 meperidine Allergy Intermediate Itching Verified 12/04/24 07:43 sulfamethoxazole (From Allergy Intermediate Mouth Verified 12/04/24 07:43 Bactrim) burning/redness trimethoprim (From Bactrim) Allergy Intermediate Mouth Verified 12/04/24 07:43 burning/redness mirtazapine AdvReac Mild Headache Verified 12/04/24 07:43 Vital Signs Vital Signs - 24 hr 12/04/24 07:32 12/04/24 07:39 12/04/24 07:44 Temperature 37.1 C Pulse Rate 101 H 103 H 99 Respiratory Rate 20 19 Blood Pressure 155/51 H 155/51 H Pulse Oximetry 97 90 Oxygen Delivery Room Air Oxygen Flow Rate 12/04/24 07:45 12/04/24 07:46 12/04/24 08:20 Temperature Pulse Rate 98 94 Respiratory Rate 25 H 20 Blood Pressure 127/52 L 100/55 L Pulse Oximetry 99 97 100 Oxygen Delivery Nasal Cannula Oxygen Flow Rate 3 12/04/24 08:37 12/04/24 08:46 12/04/24 09:14 Temperature Pulse Rate 95 94 97 Respiratory Rate 17 18 22 H Blood Pressure 104/57 L 112/55 L 100/60 Pulse Oximetry 100 97 99 Oxygen Delivery Oxygen Flow Rate 12/04/24 09:16 12/04/24 09:31 12/04/24 09:46 Temperature Pulse Rate 97 107 H 109 H Respiratory Rate 17 23 H 23 H Blood Pressure 125/55 L 113/55 L 126/51 L Pulse Oximetry 100 99 96 Oxygen Delivery Oxygen Flow Rate 12/04/24 10:01 12/04/24 10:16 12/04/24 10:31 Temperature Pulse Rate 110 H 104 H 104 H Respiratory Rate 19 19 29 H Blood Pressure 104/55 L 115/52 L 109/52 L Pulse Oximetry 97 98 97 Oxygen Delivery Oxygen Flow Rate 12/04/24 10:46 12/04/24 11:01 12/04/24 11:16 Temperature Pulse Rate 100 97 96 Respiratory Rate 26 H 27 H 29 H Blood Pressure 105/49 L 109/46 L 118/46 L Pulse Oximetry 97 98 98 Oxygen Delivery Oxygen Flow Rate 12/04/24 11:31 12/04/24 11:51 12/04/24 12:03 Temperature Pulse Rate 93 102 H 93 Respiratory Rate 28 H 26 H Blood Pressure 112/48 L 109/55 L 106/51 L Pulse Oximetry 99 94 Oxygen Delivery Oxygen Flow Rate 12/04/24 12:04 12/04/24 12:04 12/04/24 14:28 Temperature Pulse Rate 97 102 H 92 Respiratory Rate 26 H Blood Pressure 107/52 L 101/46 L 124/55 L Pulse Oximetry 99 Oxygen Delivery Oxygen Flow Rate 12/04/24 15:25 12/04/24 15:28 12/04/24 15:30 Temperature Pulse Rate 94 92 Respiratory Rate 20 20 Blood Pressure Pulse Oximetry 94 Oxygen Delivery High Flow Nasal Cannula Oxygen Flow Rate 2 12/04/24 15:55 12/04/24 17:04 12/04/24 19:48 Temperature 38.6 C H 36.8 C Pulse Rate 110 H 90 Respiratory Rate 22 H 16 Blood Pressure 126/43 L Pulse Oximetry 94 Oxygen Delivery Oxygen Flow Rate 12/04/24 19:55 12/04/24 19:55 12/04/24 20:00 Temperature Pulse Rate 90 100 Respiratory Rate 16 Blood Pressure Pulse Oximetry 94 Oxygen Delivery High Flow Nasal Cannula Oxygen Flow Rate 1 12/04/24 21:44 12/05/24 01:29 12/05/24 01:47 Temperature 36.6 C Pulse Rate 106 H 105 H 90 Respiratory Rate 18 16 Blood Pressure 139/45 L Pulse Oximetry 94 Oxygen Delivery Oxygen Flow Rate 12/05/24 01:55 12/05/24 04:40 12/05/24 06:00 Temperature 36.2 C L Pulse Rate 90 93 108 H Respiratory Rate 16 18 Blood Pressure 149/47 H Pulse Oximetry 99 Oxygen Delivery Oxygen Flow Rate Exam Const: General: cooperative and comfortable Orientation/consciousness: oriented to person, oriented to place and oriented to time HENMT: Head: normal to inspection Ears: hearing grossly normal bilaterally Eyes: General: appearance normal, both eyes and all related structures Neck: Neck: normal visual inspection Chest: Chest palpation & inspection: normal inspection of the chest Resp: Effort & Inspection: normal respiratory effort and able to speak in complete sentences Auscultation: no crackles, no rales, no rhonchi, no wheezes and diminished lung sounds Cardio: Jugular venous distension: no JVD GI: Inspection: normal to inspection GI Palp: No abdominal tenderness Skin: General skin exam: normal color Neuro: General: oriented to person, oriented to place and oriented to time Extrem: General: normal to inspection and no edema Psych: Appearance: grossly normal Results Laboratory Findings 12/05/24 05:38 12/05/24 05:38 Abnormal lab findings: Abnormal Labs 12/04/24 12/04/24 12/05/24 07:45 10:05 05:38 WBC 11.4 H 11.2 H RBC 3.82 L 3.19 L Hgb 11.3 L 9.3 L Hct 36.6 L 31.1 L MCHC 30.9 L 29.9 L Immature Gran % (Auto) 0.7 H Neut % (Auto) 89.7 H 84.1 H Lymph % (Auto) 3.8 L 5.5 L [place] % (Auto) 8.9 H Lymph # (Auto) 0.43 L 0.62 L [place] # (Auto) 1.0 H Abs Immat Gran (auto) 0.08 H Absolute Neuts (auto) 10.3 H 9.4 H Sodium 136 L 132 L Chloride 97 L Carbon Dioxide 31 H BUN 19 H Creatinine 1.07 H 0.68 L Estimated GFR 51 L Glucose 137 H 113 H AST 38 H Total Protein 8.3 H Albumin 3.1 L Urine Protein 1+ H Ur Blood (Man) 1+ H Leukocyte Esterase Rfl Trace H Urine RBC 11-20 H Ur Squamous Epith Cells Many H Diagnostic Findings Additional studies: ITS Impressions Chest X-Ray 12/04/24 08:26 IMPRESSION: 1. Emphysema. 2. Unchanged consolidation right upper lung zone consistent with pneumonia. 3. Unchanged opacities in the bilateral lower lung zones, right greater than left which could represent additional pneumonia, asymmetric mild pulmonary edema, atelectasis or some combination thereof. Head CT 12/04/24 09:15 IMPRESSION: 1. 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 No acute intracranial process. 2. Age-related changes including mild diffuse volume loss and mild scattered white matter hypoattenuation consistent with chronic small vessel ischemic disease. Chest/Abdomen/Pelvis CT 12/04/24 09:20
[2024-12-05 07:51] LABS: NT Pro B Type Natriuretic Pept 1580 pg/mL (19.9-100)
[2024-12-05] MEDS: ENOXAPARIN 40 MG/0.4 ML SYRINGE SUB-Q (08:16)
[2024-12-05 08:26] LABS: Procalcitonin 0.7 ng/mL
[2024-12-05] MEDS: guaiFENesin 12 HR 600 MG TABCR 1200 MG PO ×2 (11:49→21:05)
[2024-12-05] MEDS: ACETYLCYSTEINE 20% INHAL SOLN 800 MG/4 ML VIAL 200 MG INHALATION ×2 (15:32→20:25)
--- NOTE | 2024-12-05 15:42 | P.CONS_ITS ---
Assessment and Plan Assessment and plan (1) Mycobacterial disease, pulmonary: Code(s): A31.0 - Pulmonary mycobacterial infection Status: Acute Plan # Persistent, progressive cavitary pneumonia. Initial workup negative for cancer on bronchoscopy specimens. With positive AFB smear. On bronchoscopy. 11/24/2024. Low pretest probability for tPA based on risk factors, including negative quant gold. Atypical mycobacterial disease versus colonization. Consideration for MAC based on most likely statistically followed by m. abscesses and other atypical mycobacterial process. TB not completely rule out. Primary lung cancer not completely ruled out. Secondarily infected inflammatory malignant process possible. No endobronchial lesions noted on bronchoscopy. Underlying COPD, oxygen dependent with active tobacco use up until recently. #Newly diagnosed hepatocellular carcinoma. Recent diagnosis. No chemo yet. #Diarrhea. r/o C diff Plan: Based on persistent and worsening symptoms with progression of lung findings over several months, would consider this an active mycobacterial process. Cannot completely rule out TB. Will confirm with lab if a TB PCR probe could be done. Negative probe would make active TB much less likely. Due to fairly rapid progression, we will give empiric therapy, based on MAC historical susceptibilities. Will need to await on formal speciation and susceptibilities in the setting of other atypical mycobacteria. -Will stop cefepime, doxycycline. -Vancomycin already stopped. -Start is azithromycin, moxifloxacin plus rifampin. -If she has progression or worsening of symptoms including new fever, we will add linezolid and consider broadening back with anti pseudomonal beta-lactam. -Will discuss with Pulmonary. -Will place on airborne isolation until we can confirm not tuberculosis. I have a low suspicion based on pre test probability disease process but cannot rule out completely. -Will check for C diff Discussed with patient and Dr. Yuko Martin d/w Dr Newman d/w nursing this consult was done with telemedicine with audio and visual aids via a HIPPA protected interface. Patient consented to telemedicine. I performed a telemedicine visit in my office in [facility] with the patient who was at [facility] in [place], [place] HPI Data of Consult Date/Time: 12/05/24 15:42 Requesting Physician: Hussein Anderson MD Primary Care Provider: [employer] Family Provider: pneumonia. Persistent. Positive AFB bronch Consult Narrative Reason for consult: pneumonia. Cavitary lesion. Narrative: Melyssa Mccall is a 69 year old female With a history of COPD on home oxygen. Has been on 2 L home oxygen for the past 2 years. She has had follow- up of low-attenuation lung nodule starting at least in December 2023. She had repeat CT scans on 08/02/2024 and again on 08/31. Eventually had worsening respiratory symptoms with a CT scan on 11/01/2024 showing right upper lobe consolidation and cavitary lung nodules. At that point, a liver mass was also noted. Liver mass was biopsied and showed hepatocellular carcinoma. Workup of the lung nodule, she had a quant gold negative. She has not had any real production of sputum or blood. Had anti-inflammatory workup which was negative. She re-presented Lane on 11/19/2024. Worsening shortness of breath. Again the CT was repeated showing progression of the right upper lobe infiltrates. She had a bronchoscopy performed on 11/22. There was no endobronchial lesion. Sputum was sent for AFB. She was transferred to high level of care on 11/23. She was apparently given no oral antibiotics on discharge. She states that she was told at [facility] she was positive for MRSA. His bleed the 1 on the antibiotics with Zyvox. However she had worsening shortness of breath. Came back to the hospital on 12/04. Positive for fever on presentation of 31/12 0.3 C. Was started on cefepime doxycycline and vancomycin. MRSA screen was negative. White/lópez slightly elevated at 11.4. She was on 3 L nasal cannula up from her baseline of 2 L. bronchial wash from 11/24 came back as AFB smear positive. She has never had known history of personal history of TB. No known TB risk factors as far as close contacts. No travel outside the [place]. 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 She believes she has had skin test before for TB but can not be sure. She has never tested positive for any skin test she is aware of. Again her quant gold was negative on 11/03. She has had weight loss. Her baseline weight is 105. Due to persisting/ recurrent pneumonias, weight is down to 94 lb. She does describe some night sweats or recently. Again no productive cough. No hemoptysis. No other sites of pain. Since being on the antibiotics, she has had diarrhea, described as more than 3 watery bowel movements. She had this as well at [facility]. Stopped off of antibiotics. No lactulose use. Review of Systems 2 Review of Systems: As reviewed in HPI. Nothing further [facility] Past Medical History Medical History Vitamin D deficiency B12 deficiency Mixed incontinence Liana esophagitis Peripheral neuropathy Raynaud disease OSWALD (iron deficiency anemia) Osteopenia RLS (restless legs syndrome) Chronic narcotic use On home O2 Chronic sinusitis Olecranon bursitis, left elbow PSVT (paroxysmal supraventricular tachycardia) Kidney stones Fibromyalgia Rheumatoid arthritis Constipation IBS (irritable bowel syndrome) GERD (gastroesophageal reflux disease) Lumbar radiculopathy Esophageal stricture Status post dilatation ILD (interstitial lung disease) Small amount of interstitial lung disease was seen on base of lungs on chest CT 03/25/2018 which was an abdomen and pelvis CT Essential hypertension Collagen vascular disease Hyperlipidemia, unspecified Anxiety 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, patient unsure of this diagnosis COPD (chronic obstructive pulmonary disease) With severe obstructive disease noted on recent PFTs October 2024 with significant decompensation compared to prior study Tobacco abuse Quit 08/2024 Surgical History Surgical History History of esophagogastroduodenoscopy (EGD) With history of esophageal dilatation of History of colonoscopy with polypectomy History of partial hysterectomy Status post insertion of spinal cord stimulator History of bladder suspension procedure History of appendectomy History of lumbar surgery Spinal cord stimulator implanted 05/23/21 Family History Family History Mother Patient's mother is , Onset Age: 72 Sibling Carcinoma of colon Ovarian cancer Lung cancer Rectal cancer Family history of malignant neoplasm of breast in first degree relative Father Brain aneurysm Cerebrovascular accident, Onset Age: 54 Other Arthritis COPD (chronic obstructive pulmonary disease) High cholesterol Hypertension Lung disease Neuropathy Social History Social History Social History: The patient reports that she has been since 2007 and lives alone. She has 1 son who lives in [place]. She quit smoking in August 2024 of months prior to that she smoked a pack of cigarettes per day for close to 60 years. She denies any significant alcohol use. 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: Cole (son) or Romi (friend) Smoking packs per day: 1 Smoking cigarettes per day: 20.0 Years smoked: 60 Smoking pack-years: 60.00 Smoking status: Former smoker Second hand tobacco smoke exposure: Yes Additional smoking assessment comments: Using Nicotine patches AT TIMES Alcohol intake: never Substance use: never Substance use type: does not use Do You Feel Safe in your Home?: Yes Lack of Transportation: No Lack of Food: Never True Current Housing: I Have Housing Concerned About Future Housing: No Difficulty Paying Gas/Electric Bills: No Difficulty Paying for Meds: No Currently Unemployed: No Education: Trade/Vocational Certificate Difficulty w/ Childcare or Family Care: No Living arrangements: alone Occupation/Education: retired Gender identity (if verbalized by the patient): Female Spiritual care concerns: No Meds Home Medications and Allergies Home Medications ?Medication ?Instructions ?Recorded ?Confirmed ?Type aspirin 81 mg tablet,delayed 81 mg PO DAILY 06/02/19 12/04/24 History release (Adult Aspirin Regimen) cyclobenzaprine 5 mg tablet 5 mg PO Q12H 01/05/20 12/04/24 History oxycodone myristate 13.5 mg 13.5 mg PO Q12H 11/19/21 12/04/24 History capsule sprinkle extend release 12hr(DON'T CRUSH) (Xtampza ER) solifenacin 10 mg tablet (Vesicare) 5 mg PO HS 02/04/23 12/04/24 History cholecalciferol (vitamin D3) 125 125 mcg PO DAILY 07/24/23 12/04/24 History mcg (5,000 unit) tablet (Vitamin D3) guaifenesin 600 mg tablet, 1,200 mg PO Q12H 07/24/23 12/04/24 History extended release 12 hr (Mucinex) loratadine 10 mg tablet 10 mg PO DAILY 07/24/23 12/04/24 History albuterol sulfate 90 mcg/actuation See Rx Instructions .Route 03/15/24 12/04/24 History aerosol inhaler .COMPLEX PRN Shortness Of Breath Or Wheezing omeprazole 40 mg capsule,delayed 40 mg PO DAILY #90 caps 06/02/24 12/04/24 Rx release albuterol sulfate 2.5 mg/3 mL 2.5 mg (3 mL) inhalation Q4-6H PRN 06/07/24 12/04/24 Rx (0.083 %) solution for nebulization shortness of breath or wheezing #180 mL tiotropium 2.5 mcg-olodaterol 2.5 See Rx Instructions .Route 06/20/24 12/04/24 Rx mcg/actuation mist for inhalation .COMPLEX #4 grams (Stiolto Respimat) lovastatin 40 mg tablet 40 mg PO HS 08/02/24 12/04/24 History gabapentin 300 mg capsule 300 mg PO Q12H #180 caps 08/29/24 12/04/24 Rx ferrous sulfate 325 mg (65 mg See Rx Instructions .Route 10/17/24 12/04/24 Rx iron) tablet (FeroSul) .COMPLEX #30 tabs sennosides 8.6 mg-docusate sodium 2 tab-cap (2 x 8.6-50 mg) PO BID 11/07/24 12/04/24 Rx 50 mg tablet (Senokot-S) PRN Constipation #120 tabs fluticasone propionate 50 See Rx Instructions .Route 11/16/24 12/04/24 Rx mcg/actuation nasal .COMPLEX #48 grams spray,suspension metoprolol succinate 25 mg See Rx Instructions .Route 11/16/24 12/04/24 Rx tablet,extended release 24 hr .COMPLEX #90 tabs Allergies Allergy/AdvReac Type Severity Reaction Status Date / Time Penicillins Allergy Severe Anaphylaxis Verified 12/04/24 07:43 meperidine Allergy Intermediate Itching Verified 12/04/24 07:43 sulfamethoxazole (From Allergy Intermediate Mouth Verified 12/04/24 07:43 Bactrim) burning/redness trimethoprim (From Bactrim) Allergy Intermediate Mouth Verified 12/04/24 07:43 burning/redness mirtazapine AdvReac Mild Headache Verified 12/04/24 07:43 Vital Signs Vital Signs - 24 hr 12/04/24 15:55 12/04/24 17:04 12/04/24 19:48 Temperature 38.6 C H 36.8 C Pulse Rate 110 H 90 Respiratory Rate 22 H 16 Blood Pressure 126/43 L Pulse Oximetry 94 Oxygen Delivery Oxygen Flow Rate 12/04/24 19:55 12/04/24 19:55 12/04/24 20:00 Temperature Pulse Rate 90 100 Respiratory Rate 16 Blood Pressure Pulse Oximetry 94 Oxygen Delivery High Flow Nasal Cannula Oxygen Flow Rate 1 12/04/24 21:44 12/05/24 01:29 12/05/24 01:47 Temperature 36.6 C Pulse Rate 106 H 105 H 90 Respiratory Rate 18 16 Blood Pressure 139/45 L Pulse Oximetry 94 Oxygen Delivery Oxygen Flow Rate 12/05/24 01:55 12/05/24 04:40 12/05/24 06:00 Temperature 36.2 C L Pulse Rate 90 93 108 H Respiratory Rate 16 18 Blood Pressure 149/47 H Pulse Oximetry 99 Oxygen Delivery Oxygen Flow Rate 12/05/24 07:50 12/05/24 07:50 12/05/24 08:19 Temperature Pulse Rate 102 H 102 H Respiratory Rate 18 18 Blood Pressure Pulse Oximetry 92 93 Oxygen Delivery Nasal Cannula Nasal Cannula Oxygen Flow Rate 2 2 12/05/24 08:19 12/05/24 10:41 12/05/24 12:00 Temperature Pulse Rate 119 H 96 Respiratory Rate Blood Pressure Pulse Oximetry Oxygen Delivery Nasal Cannula Oxygen Flow Rate 3 12/05/24 14:00 12/05/24 14:39 12/05/24 15:33 Temperature 36.2 C L Pulse Rate 90 91 Respiratory Rate 18 18 Blood Pressure 104/40 L Pulse Oximetry 94 Oxygen Delivery Nasal Cannula Oxygen Flow Rate 2 12/05/24 15:33 Temperature Pulse Rate 91 Respiratory Rate 18 Blood Pressure Pulse Oximetry 96 Oxygen Delivery Oxygen Flow Rate 2 Exam 2 Narrative: exam performed with the aid of audio and visual telemedicine. Laying on her side. On nasal cannula. Respiratory rate approximately 18 to 20. No accessory muscles for breathing. Patient is thin. Oriented to person place and time. Able to participate the entire exam. Nonlabored breathing on visualization of telemedicine. No obvious rash. Results Labs 12/05/24 05:38 12/05/24 05:38 Labs: Short CBC 12/05/24 Range/Units 05:38 WBC 11.2 H (4.5-10.0) K/mm3 Hgb 9.3 L (12.0-15.0) g/dL Hct 31.1 L (37.0-47.0) % Plt Count 246 (150-375) k/mm3 BMP 12/05/24 05:38 Sodium 132 L Potassium 3.7 Chloride 98 Carbon Dioxide 30 BUN 11 D Creatinine 0.68 L Glucose 113 H Calcium 9.1 Liver Function 12/05/24 Range/Units 05:38 Total Bilirubin 0.5 (0.2-1.3) mg/dL AST 38 H (14-36) U/L ALT 18 (6-35) U/L Alkaline Phosphatase 118 (38-126) U/L Albumin 3.1 L (3.5-5.1) g/dL
[2024-12-05] MEDS: MOXIFLOXACIN HCL 400 MG TABLET PO (17:23)
[2024-12-05] MEDS: AZITHROMYCIN 500 MG TABLET PO (17:23)
--- NOTE | 2024-12-05 17:56 | P.PNIM_ITS ---
Progress Note: A&P Assessment and Plan (1) Generalized weakness: Code(s): R53.1 - Weakness Status: Acute Assessment and Plan: Chief complaint on admission. Multifactorial. Continue PT and OT. Ambulate with assistance (2) Mycobacterial disease, pulmonary: Code(s): A31.0 - Pulmonary mycobacterial infection Status: Acute Assessment and Plan: Progressive cavitary pneumonia. Bronchoscopy performed on 11/24/2024 with positive AFB smear. Infectious disease consulted, their recommendations have been appreciated. Initial antibiotics cefepime doxycycline and vancomycin have been discontinued. On 12/05/2024 start azithromycin, moxifloxacin, rifampin. Pending TB PCR probe. Airborne isolation (3) COPD (chronic obstructive pulmonary disease): Code(s): J44.9 - Chronic obstructive pulmonary disease, unspecified Status: Acute Assessment and Plan: Pulmonology consulted. On 12 05 24 perform overnight oximetry on 3 L. pulmonary toileting with Mucomyst 200 mg q.6 hours, DuoNeb q.6 hours. (4) Chronic respiratory failure with hypoxia and hypercapnia: Code(s): J96.11 - Chronic respiratory failure with hypoxia; J96.12 - Chronic respiratory failure with hypercapnia Status: Chronic (5) Diarrhea: Qualifiers: Diarrhea type: unspecified type Qualified Code(s): R19.7 - Diarrhea, unspecified Code(s): R19.7 - Diarrhea, unspecified Status: Acute Assessment and Plan: Monitor, check C diff. 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 This is been ongoing for the past 8 months. Worsening shortness of breath as well. Due to the weakness he has had an increase in falls with 3 the night [employer]. Recent admission at [facility], transferred on 11/23/2024 to [facility] for high- level pulmonary care where she received extensive pulmonary toileting and was treated for suspected pneumonia, she reports she was discharged on 2 antibiotics. Admits to having watery bowel movements which she had at [facility] in November as well. On presentation WBC 11.4, neutrophilia, serum creatinine 1.07, procalcitonin 0.2, urinalysis with many squamous cells, nasal MRSA PCR negative, head CT with chronic cystic encephalomalacia in the right parietal lobe, age-related changes including mild diffuse volume loss and mild scattered white matter hypoattenuation consistent with chronic small-vessel ischemic disease. CT chest abdomen pelvis without contrast demonstrating severe emphysema with multifocal pneumonia on the right lung most prominent in the upper lobe with some interval progression in the right lower lobe, unchanged 2.7 x 1.5 cm subtle mass in the right hepatic lobe consistent with biopsy-proven hepatocellular carcinoma, bilateral nonobstructing nephrolithiasis, large amount of stool throughout the colon suggesting diarrhea. ----- Patient would like to be DNR. Lovenox 40 mg subQ q.a.m.. Ambulate with assistance. Saline lock IV. Prior to admission the patient lives at home and uses a cane or walker for daily activities. She uses 2 L supplemental oxygen. Subjective Date/time seen: 12/05/24 17:56 Interval history: Patient feels about the same. She has shortness of breath and a cough with no sputum production. Review of Systems Review of Systems: All systems reviewed & are unremarkable except as noted in HPI and below (Subjective) Exam Const: General: comfortable and no acute distress HENMT: Mouth: Yes moist mucous membranes Eyes: Pupils: Equal, round and reactive pupils present Neck: Neck: supple Resp: Effort & Inspection: normal respiratory effort Auscultation: clear to auscultation bilaterally Cardio: Rate: regular rate Rhythm: regular rhythm GI: Inspection: non-distended GI Palp: Yes Soft to palpation Neuro: Other: No focal deficits Extrem: General: no edema Objective Data Vital Signs Vital Signs: Vital Signs - 24 hr 12/04/24 19:48 12/04/24 19:55 12/04/24 19:55 Temperature Pulse Rate 90 90 Respiratory Rate 16 16 Blood Pressure Pulse Oximetry 94 Oxygen Delivery High Flow Nasal Cannula Oxygen Flow Rate 1 12/04/24 20:00 12/04/24 21:44 12/05/24 01:29 Temperature 97.9 F Pulse Rate 100 106 H 105 H Respiratory Rate 18 Blood Pressure 139/45 L Pulse Oximetry 94 Oxygen Delivery Oxygen Flow Rate 12/05/24 01:47 12/05/24 01:55 12/05/24 04:40 Temperature Pulse Rate 90 90 93 Respiratory Rate 16 16 Blood Pressure Pulse Oximetry Oxygen Delivery Oxygen Flow Rate 12/05/24 06:00 12/05/24 07:50 12/05/24 07:50 Temperature 97.2 F L Pulse Rate 108 H 102 H 102 H Respiratory Rate 18 18 18 Blood Pressure 149/47 H Pulse Oximetry 99 92 Oxygen Delivery Nasal Cannula Oxygen Flow Rate 2 12/05/24 08:19 12/05/24 08:19 12/05/24 10:41 Temperature Pulse Rate 119 H Respiratory Rate Blood Pressure Pulse Oximetry 93 Oxygen Delivery Nasal Cannula Nasal Cannula Oxygen Flow Rate 2 3 12/05/24 12:00 12/05/24 14:00 12/05/24 14:39 Temperature 97.2 F L Pulse Rate 96 90 Respiratory Rate 18 Blood Pressure 104/40 L Pulse Oximetry 94 Oxygen Delivery Nasal Cannula Oxygen Flow Rate 2 12/05/24 15:33 12/05/24 15:33 12/05/24 15:42 Temperature Pulse Rate 91 91 98 Respiratory Rate 18 18 Blood Pressure Pulse Oximetry 96 Oxygen Delivery Oxygen Flow Rate 2 12/05/24 16:00 Temperature Pulse Rate 97 Respiratory Rate Blood Pressure Pulse Oximetry Oxygen Delivery Oxygen Flow Rate Intake/Output Intake/Output: Intake & Output 12/02/24 12/03/24 12/04/24 12/05/24 23:59 23:59 23:59 23:59 Intake Total 2190 560 Output Total 50 Balance 2140 560 Meds/Results Medications: Active Medications Generic Name Dose Route Start Last Admin Trade Name Freq PRN Reason Stop Dose Admin Acetaminophen 650 mg 12/04/24 13:40 12/04/24 16:04 Acetaminophen 325 Mg Tablet PO 650 mg Q6H PRN Administration Mild Pain (1-3) or Fever Acetylcysteine 200 mg 12/05/24 14:00 12/05/24 15:32 Acetylcysteine 20% Inhal Soln 800 Mg/4 Ml Vial INHALATION 200 mg Q6HRT ALBERTA Administration Albuterol/Ipratropium 3 ml 12/04/24 14:00 12/05/24 15:33 Ipratropium 0.5 Mg/Albuterol Sulfate 2.5 Mg Ampul.Neb 3 Ml INHALATION 3 ml Q6HRT ALBERTA Administration Azithromycin 500 mg 12/05/24 14:45 12/05/24 17:23 Azithromycin 500 Mg Tablet PO 500 mg DAILY ALBERTA Administration Enoxaparin Sodium 40 mg 12/05/24 09:00 12/05/24 08:16 Enoxaparin 40 Mg/0.4 Ml Syringe SUB-Q 40 mg DAILY [facility] Administration Guaifenesin 1,200 mg 12/05/24 09:35 12/05/24 11:49 Guaifenesin 12 Hr 600 Mg Tabcr PO 1,200 mg Q12HR ALBERTA Administration Moxifloxacin HCl 400 mg 12/05/24 14:45 12/05/24 17:23 Moxifloxacin Hcl 400 Mg Tablet PO 400 mg QAM ALBERTA Administration Ondansetron HCl 4 mg 12/04/24 13:40 Ondansetron Hcl Odt 4 Mg Tablet PO Q6H PRN Nausea And Vomiting Rifampin 600 mg 12/05/24 14:45 12/05/24 17:23 Rifampin 300 Mg Capsule PO 600 mg DAILY@0600 [facility] Administration Sodium Chloride 6 ml 12/06/24 05:00 Sodium Chlor 3% 15 Ml Neb (Respiratory Therapy) INHALATION 12/08/24 05:01 DAILY@0500 [facility] Radiology Results: ITS Impressions Chest X-Ray 12/04/24 08:26 IMPRESSION: 1. Emphysema. 2. Unchanged consolidation right upper lung zone consistent with pneumonia. 3. Unchanged opacities in the bilateral lower lung zones, right greater than left which could represent additional pneumonia, asymmetric mild pulmonary edema, atelectasis or some combination thereof. Head CT 12/04/24 09:15 IMPRESSION: 1. 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 No acute intracranial process. 2. Age-related changes including mild diffuse volume loss and mild scattered white matter hypoattenuation consistent with chronic small vessel ischemic disease. Chest/Abdomen/Pelvis CT 12/04/24 09:20 IMPRESSION: 1. Severe emphysema with multifocal pneumonia in the right lung most prominent in the upper lobe with some interval progression in the right lower lobe. 2. Unchanged 2.7 x 1.5 cm subtle mass in the right hepatic lobe consistent with biopsy-proven hepatocellular carcinoma. 3. Bilateral nonobstructing nephrolithiasis. 4. Large amount of stool throughout the colon suggest diarrhea. Labs Labs: Laboratory Results - last 24 hr 12/04/24 12/05/24 16:22 05:38 WBC 11.2 H RBC 3.19 L Hgb 9.3 L Hct 31.1 L MCV 97.5 MCH 29.2 MCHC 29.9 L RDW 13.3 Plt Count 246 MPV 9.4 Immature Gran % (Auto) 0.7 H Neut % (Auto) 84.1 H Lymph % (Auto) 5.5 L [place] % (Auto) 8.9 H Eos % (Auto) 0.4 Baso % (Auto) 0.4 Lymph # (Auto) 0.62 L [place] # (Auto) 1.0 H Eos # (Auto) 0.0 Baso # (Auto) 0.1 Abs Immat Gran (auto) 0.08 H Absolute Neuts (auto) 9.4 H Absolute Nucleated RBC 0.000 Nucleated RBC % 0.0 Sodium 132 L Potassium 3.7 Chloride 98 Carbon Dioxide 30 Anion Gap 4 BUN 11 D Creatinine 0.68 L Estim Creat Clear Calc 44 Estimated GFR > 60 Glucose 113 H Calcium 9.1 Total Bilirubin 0.5 AST 38 H ALT 18 Alkaline Phosphatase 118 NT-Pro-B Natriuret Pep 1580 H Total Protein 6.8 Albumin 3.1 L Procalcitonin 0.7 Nasal MRSA (PCR) Not detected
--- NOTE | 2024-12-05 18:04 | PC.NURSE ---
This patient, Melyssa Mccall, was transferred to [facility] on 12/05/24 at 1750. Personal belongings sent with patient. Report given to Shawnee CABAN. Appropriate documentation sent with patient.
--- NOTE | 2024-12-05 18:18 | PC.NURSE ---
This patient, Melyssa Mccall, was received from [[facility] ] on 12/05/24 at 1818. Patient/family oriented to unit policies and routines
--- NOTE | 2024-12-05 18:18 | ADMGEN ---
This patient, Melyssa Mccall, was admitted to 3 [facility] Surg Room 309-01. Patient/family oriented to hospital policies and general routines including ID bracelet, bed and alarms, visiting hours, pain management, procedures, bathroom and other care routines, personal items, smoking policy, room service/diet, and visiting hours. Information on how to activate the Rapid Response Team has been discussed. Patient/Family are encouraged to report perceived risks to care and to ask questions if they do not understand what they are told or what they should do.
[2024-12-05] MEDS: ACETAMINOPHEN 325 MG TABLET 650 MG PO (21:05)
[2024-12-05] MEDS: ONDANSETRON HCL ODT 4 MG TABLET PO (21:06)
[2024-12-06] VITALS (16 sets, daily range): BP systolic 102–131; BP diastolic 43–69; PULSE 55–105; RESP 18–19; TEMP 36.2–36.6; O2SAT 92–100
--- NOTE | 2024-12-06 01:53 | PCRCNOTE ---
0200 tx omitted for apnea link procedure.
[2024-12-06 06:50] LABS: Hematocrit 32.6 % (37.0-47.0); Hemoglobin 10.3 g/dL (12.0-15.0); Immature Granulocyte Percent A 0.5 % (0-0.5); Lymphocytes Absolute Auto 0.40 K/mm3 (0.9-3.2); Mean Corpuscular HGB Conc 31.6 g/dl (32-36); Mean Corpuscular Hemoglobin 29.2 pg (26-34); Mean Corpuscular Volume 92.4 fl (80-100); Nucleated Red Blood Cells Absolute Auto 0.000 K/mm3 (0.0-0.012); Nucleated Red Blood Cells Perc 0.0 % (0.0-0.2); Platelet Count Result 239 k/mm3 (150-375); Red Blood Count 3.53 M/mm3 (4.2-5.4); White Blood Count 8.9 K/mm3 (4.5-10.0)
[2024-12-06 07:09] LABS: Anion Gap 11 mmol/L (4-12); Blood Urea Nitrogen 12 mg/dL (7-17); Calcium 9.4 mg/dL (8.4-10.2); Carbon Dioxide 28 mmol/L (22-30); Chloride 100 mmol/L (98-107); Estimated CRCL calculation 46 ml/min; Estimated Glomerular Filt Rate > 60; Glucose 122 mg/dL (65-110); Magnesium 1.9 mg/dL (1.6-2.3); Potassium 3.6 mmol/L (3.4-5.0); Sodium 139 mmol/L (137-145)
[2024-12-06] MEDS: IPRATROPIUM 0.5 MG/ALBUTEROL SULFATE 2.5 MG AMPUL.NEB 3 ML INHALATION ×3 (08:27→20:23)
[2024-12-06] MEDS: ACETYLCYSTEINE 20% INHAL SOLN 800 MG/4 ML VIAL 200 MG INHALATION ×3 (08:27→20:22)
[2024-12-06] MEDS: guaiFENesin 12 HR 600 MG TABCR 1200 MG PO ×2 (08:43→20:57)
[2024-12-06] MEDS: ENOXAPARIN 40 MG/0.4 ML SYRINGE SUB-Q (08:43)
--- NOTE | 2024-12-06 09:06 | P.PNPL_ITS ---
Progress Note: A&P Assessment and Plan (1) Mycobacterial disease, pulmonary: Code(s): A31.0 - Pulmonary mycobacterial infection Status: Acute Assessment and Plan: 10/21/2024: CT scan of the chest reviewed with radiologist and compared to 10/2023, 08/02/2024, 08/31/2024 with worsening right upper lobe low- attenuation lung nodule consistent with atelectasis, mucous retention or pneumonia. 11/01/2024 through 11/07/2024: Admitted to [facility] with a CT scan chest now demonstrating larger right upper lobe consolidation with cavitary lung nodules. Liver biopsy returned for hepatocellular. plan per oncology was for patient to get strong enough to undergo outpatient chemotherapy. 11/03/2024: QuantiFERON gold negative. serologies on 11/01/2024 anti CCP less than 16 11/19/2024 through 11/23/2024: Admitted to [facility] with shortness of breath. CT scan of the chest with worsening right upper lobe infiltrate and progressive cavitary lesions. Treated with pulmonary hygiene, antibiotics, oxygen. 11/22/2024 underwent bronchoscopy to assess for endobronchial lesion or cancer and there was no obstructing mass. Secretions were removed. Biopsies were obtained and were negative for malignancy. Given patient's lack of response she was transferred to [facility] for higher level of care pulmonary, infectious disease and oncology evaluation . Dr. Leonela samson. Transferred on 11/23/2024. 11/24/24: bronchial wash: AFB smear 1+ positive with 4-36 AFB per 1000 field at 400 X. 12/04/2024: Apparently discharged from [facility] on 11/30/24 on 2 antibiotics, Perhaps linezolid. does not sound like any additional procedures were obtained. Presented with weakness and recent falls. She had bilateral wheezes. Room air saturations 97%. 2 L nasal cannula saturation 94%. Temperature was 101.4?. White blood cell count 11.4, creatinine 1.07. Procalcitonin 0.2. MRSA nasal swab PCR negative CT chest abdomen pelvis with unchanged right hepatic lobe carcinoma, severe emphysema worsening right upper lobe consolidations with some new progression in the right lower lobe. Empirically started on cefepime, doxycycline and vancomycin. 12/05/24: Overall the patient tells me she is the same as yesterday. She has rest shortness of breath and dyspnea on exertion. She has cough with no phlegm production. Currently she is on 3 L nasal cannula saturations 94%. White blood cell count 11.2, creatinine 0.68. BNP 1580. procalcitonin increased from 0.2 on 12/04/2024 to 0.7 today. Yesterday she was 2.14 L positive. We etiology of right upper lobe and lower lobe dense consolidations with cavity in the setting of COPD and bronchial wash with AFB smear positive and QuantiFERON gold negative suggests patient has non mycobacterial lung disease. Plan: I have spoken to the hospitalist and he will call the Infectious Disease team at [facility] to see if they are comfortable consult in on this patient. If they are not patient should be transferred to [facility] for Infectious Disease consultation. Patient currently on vancomycin, cefepime and doxycycline for possible bacterial infection and I think this is unlikely given her mild hypoxemia, mild leukocytosis and procalcitonin 0.7. Will defer to Infectious Disease. I will order induced sputum for AFB q.a.m. a.m. x3 days. Seen by infectious disease consult later in the day and started on azithromycin, moxifloxacin and rifampin. 12/06/24: patient tells me she feels a little bit better. Her cough is looser. Her sweating episodes are less intense. Her dyspnea on exertion is the same. She had 1 episode of hemoptysis this morning. When I enter the room she was on 2 L nasal cannula saturations 97%. I decreased her to 1 L and her saturations were 92%. afebrile. White blood cell count 8.9, creatinine 0.66. Plan: Continue azithromycin, moxifloxacin and rifampin per ID. Patient with 1 episode of hemoptysis and will discontinue her low-dose aspirin. Discussed with Dr. Huntley (2) COPD (chronic obstructive pulmonary disease): Qualifiers: COPD type: unspecified COPD Qualified Code(s): J44.9 - Chronic obstructive pulmonary disease, unspecified Code(s): J44.9 - Chronic obstructive pulmonary disease, unspecified Status: Chronic Assessment and Plan: Patient with 90 pack year tobacco use, Currently smoking 5 cigarettes a day. 11/23/2019: Alpha 1 anti trypsin genotype MM. ?Alpha 1 anti trypsin level 160, normal. PFTs 12/14/2019 with an FEV1 of 1.49 L, 60% predicted, ratio 49% predicted, positive bronchodilator response, air trapping and severely decreased DLCO that remain moderately decreased when adjusted for alveolar volume. CT scan of the chest 08/31/2024 and 01/15/2021 with severe panlobular emphysema all lung hill. Chronic hypoxemic respiratory failure requiring 1 L at rest, 2 L with activity and 1 L with sleep. Chronic hypercarbic respiratory failure. maintained on Stiolto Respimat. She did not have any help with a trial of breztri as an outpatient. 08/31/2024, white blood cell count 8.1, eosinophils 3% equals 243 per micro L. Currently patient has no evidence of a COPD exacerbation. Plan: I will continue her home regimen of DuoNebs q.6 hours, will add guaifenesin 1200 mg p.o. b.i.d. and Mucomyst nebulizers q.6 hours to help with expectoration. 12/06/24: Patient with no wheezing, shortness of breath dyspnea on exertion stable Plan: I will continue DuoNebs q.6 hours, guaifenesin 1200 mg p.o. b.i.d. and Mucomyst nebulizers q.6 hours to help with expectoration. (3) Chronic respiratory failure with hypoxia and hypercapnia: Code(s): J96.11 - Chronic respiratory failure with hypoxia; J96.12 - Chronic respiratory failure with hypercapnia Status: Chronic Assessment and Plan: 12/05/24: Patient with chronic hypoxemic respiratory failure prescribed no oxygen at rest but she uses 2 L at rest, 2 L with activity and she is prescribed a noninvasive ventilator at night through [facility] [place]. Patient tells me she is no longer using the noninvasive ventilator at night and would like it removed from her house. Plan: We will talk to [facility] [place] and obtain a recent download to confirm she is not using the machine. I will perform an overnight oximetry on 3 L tonight. Later in the day obtained download from 10/01/2024 to 10/30/2024. patient is on BiPAP no rate IPAP 9, EPAP 4. Usage days total 3%. Usage days greater than or equal to 4 hours is 0. Average usage on days used is 2 hours and 18 minutes. AHI 0.4. Median leak 0.0. I interpret this download as total noncompliance, adequate pressures and low leak. 12/06/24: Patient tells me she cannot tolerate home BiPAP. Download confirms she is noncompliant. Patient had an overnight oximetry on 3 L with recording duration of 7 hours and 20 minutes, average saturation 97%, low saturation 85%, time with saturation less than or equal to 88% was 0 minutes. Oxygen desaturation index 1.0. Plan: Continue 3 L nasal cannula at night. (4) Hepatocellular carcinoma: Code(s): C22.0 - Liver cell carcinoma Status: Acute Assessment and Plan: 11/03/2024: Needle biopsy of a liver demonstrated hepatocellular carcinoma. Patient is followed by Oncology with an ultimate plan of her getting strong enough to tolerate outpatient chemotherapy. 12/05/24: plan: Patient remains debilitated. Physical therapy has been ordered. Subjective Date/time seen: 12/06/24 09:06 Interval history: 12/05/2024: This is a new pulmonary consult for pneumonia 69-year-old with a history of hypertension, hyperlipidemia, SVT, the esophageal ring status post dilation, chronic sinusitis, GOLD grade 2 group E COPD on home oxygen and NIV. Patient admitted to [facility] from 08/31/2024 through 09/07/2024 for COPD and pneumonia with hypercarbic respiratory failure. ABG on 08/02/2024 of 7.45/60/128 on 2 L nasal cannula and a blood gas on 09/06/2023 of 7.34/71/ 63 on 2 L nasal cannula.? Patient was treated for COPD and pneumonia with Levaquin, Flagyl, DuoNebs and guaifenesin.? For her hypercarbic respiratory failure she had [facility] insurance and was approved for BiPAP no rate, IPAP 9, EPAP 4 in 2 L bleed in.? This provided adequate oxygenation by overnight oximetry and ABG at the end of the night of 7.40/52/64.? She was discharged on Levaquin for 7 days, Flagyl for 5 days, Stiolto Respimat and rescue albuterol.? She was to continue guaifenesin 600 p.o. b.i.d., Cornet flutter valve and home O2 assessment demonstrated she required 2 L at rest and 2 L with activity.? Plan was for fo llow-up in the Pulmonary Clinic in 4 weeks for compliance check and to reassess her for CT scan to follow her worsening right upper lobe infiltrate. 09/20/2024: EGD esophagitis was normal.? Nonobstructing ring with dilatation. 09/29/2024: PCP office visit note.? 2 L nasal cannula saturation 93%.? Weight 90 lb.? Respiratory medicines include guaifenesin 600 mg p.o. q.12 hours.? Albuterol inhaler p.r.n., albuterol nebulizer p.r.n., Stiolto Respimat, Flonase nasal spray 1 b.i.d. p.r.n. Clinic on 10/06/2024: stated she had done well and back to her baseline b reathing 95% no normal walking more. She could walk 1 block. Had gained 1 lb. Was on Stiolto Respimat wearing 2 L at rest with saturations 92. 2 L with activity saturations ranging 66-90 and 2 L bleed in at night. Continue to smoke 5 cigarettes a day. Cat score was 19. Download compliance with poor compliance at 40% and no usage after 09/26/2024. 10/21/2024: CT scan of the chest reviewed with radiologist and compared to 10/2023, 08/02/2024, 08/31/2024 with worsening right upper lobe low- attenuation lung nodule consistent with atelectasis, mucous retention or pneumonia. PFTs demonstrated severe obstructive abnormality consistent with gold grade 3 group E COPD. with a significant decrease in FVC, FEV1 and diffusing capacity compared to 12/14/2019 and a significant increase in residual volume and functional residual capacity all consistent with worsening COPD. 6 minute walk required no oxygen at rest and 2 L with activity. 11/01/2024 through 11/07/2024: Admitted to [facility] with a CT scan chest now demonstrating larger right upper lobe consolidation with cavitary lung nodules. Liver biopsy returned for hepatocellular. plan per oncology was for patient to get strong enough to undergo outpatient chemotherapy. 11/03/2024: QuantiFERON gold negative. serologies on 11/01/2024 anti CCP less than 16 11/19/2024 through 11/23/2024: Admitted to [facility] with shortness of breath. CT scan of the chest with worsening right upper lobe infiltrate and progressive cavitary lesions. Treated with pulmonary hygiene, antibiotics, oxygen. 11/22/2024 underwent bronchoscopy to assess for endobronchial lesion or cancer and there was no obstructing mass. Secretions were removed. Biopsies were obtained and were negative for malignancy. Given patient's lack of response she was transferred to [facility] for higher level of care pulmonary and oncology treatments. Dr. Leonela samson. Transferred on 11/23/2024. 11/20/2024 IgG mycoplasma titer 1138 with negative mycoplasma PCR. 11/24/24: bronchial wash: AFB smear 1+ positive with 4-36 AFB per 1000 field at 400 X. 12/04/2024: Apparently discharged from [facility] on 11/30/24 on 2 antibiotics, Perhaps linezolid. does not sound like any additional procedures were obtained. Presented with weakness and recent falls. She had bilateral wheezes. Room air saturations 97%. 2 L nasal cannula saturation 94%. Temperature was 101.4?. White blood cell count 11.4, creatinine 1.07. Procalcitonin 0.2. MRSA nasal swab PCR negative CT chest abdomen pelvis with unchanged right hepatic lobe carcinoma, severe emphysema worsening right upper lobe consolidations with some new progression in the right lower lobe. Empirically started on cefepime, doxycycline and vancomycin. 12/05/24: Overall the patient tells me she is the same as yesterday. She has rest shortness of breath and dyspnea on exertion. She has cough with no phlegm production. Currently she is on 3 L nasal cannula saturations 94%. White blood cell count 11.2, creatinine 0.68. BNP 1580. procalcitonin increased from 0.2 on 12/04/2024 to 0.7 today. Yesterday she was 2.14 L positive. Seen by infectious disease consult later in the day and started on azithromycin, moxifloxacin and rifampin. Later in the day obtained download from 10/01/2024 to 10/30/2024. patient is on BiPAP no rate IPAP 9, EPAP 4. Usage days total 3%. Usage days greater than or equal to 4 hours is 0. Average usage on days used is 2 hours and 18 minutes. AHI 0.4. Median leak 0.0. I interpret this download as total noncompliance, adequate pressures and low leak. 12/06/24: patient tells me she feels a little bit better. Her cough is looser. Her sweating episodes are less intense. Her dyspnea on exertion is the same. She had 1 episode of hemoptysis this morning. When I enter the room she was on 2 L nasal cannula saturations 97%. I decreased her to 1 L and her saturations were 92%. White blood cell count 8.9, creatinine 0.66. Patient had an overnight oximetry on 3 L with recording duration of 7 hours and 20 minutes, average saturation 97%, low saturation 85%, time with saturation less than or equal to 88% was 0 minutes. Oxygen desaturation index 1.0. DATA: 12/04/2024: EXAMINATION: CT chest abdomen pelvis wo con INDICATION: Pneumonia. Trauma. COMPARISON: Chest CT dated 11/19/[address] abdomen and pelvis dated 08/02/2024 FINDINGS: CHEST CT: Severe emphysema with biapical calcified pleural parenchymal scarring. Unchanged region of consolidation with air bronchograms in the right upper lobe which has developed since 08/02/2024 consistent with pneumonia. Again seen is septal line thickening in the right middle and lower lobes with additional patchy regions of consolidation at the basilar right lower lobe consistent with pneumonia. There a re few scattered small calcified pulmonary nodules in both lungs along with calcified mediastinal lymph nodes consistent with old granulomatous disease. No pleural effusion. Heart size normal. Atherosclerotic coronary artery calcification. No pericardial effusion. T7 laminectomy and spinal stimulator lead position in the posterior central canal at the level of T6-T7. Chronic mild anterior wedging of T7. ABDOMEN/PELVIS CT: Splenic calcification consistent with old granulomatous disease. Very subtle 2.7 x 1.5 cm Right hepatic lobe mass along the gallbladder fossa consistent with biopsy-proven hepatocellular carcinoma The gallbladder, pancreas and bilateral adrenal glands are normal. Mild cortical atrophy at the lower pole of the right kidney likely sequela prior infection or infarction. Bilateral nonobstructing nephrolithiasis with a couple 1-2 mm stones in the right kidney and 14 x 4 mm stone at the left kidney. Large amount of liquid appearing stool suggestive of diarrhea. No bowel obstruction. The appendix is not visualized. No pericecal inflammatory change to suggest acute appendicitis. Bladder is normal. The uterus is not identified and has likely been surgically resected. No free intraperitoneal gas or fluid. No pathologically enlarged abdominal or pelvic lymphadenopathy. Mild lumbar spondylosis. IMPRESSION: 1. Severe emphysema with multifocal pneumonia in the right lung most prominent in the upper lobe with some interval progression in the right lower lobe. 2. Unchanged 2.7 x 1.5 cm subtle mass in the right hepatic lobe consistent with biopsy-proven hepatocellular carcinoma. 3. Bilateral nonobstructing nephrolithiasis. 4. Large amount of stool throughout the colon suggest diarrhea. 09/07/2024: Home O2 assessment: Rest room air saturation 86%. Rest nasal cannula 1 L saturation 88%. Rest nasal cannula 2 L saturation 91%. Exercise nasal cannula 2 L saturation 90%. Patient requires 2 L with rest and 2 L with activity. 09/07/24: Patient wore her home BiPAP no rate, IPAP 9, EPAP 4 and 2 L bleed in with an over the mouth under the nose mask. She said she wore the mask for 6-1/2 hours and slept well and feels refreshed this morning. Overnight oximetry on these settings with recording duration of 6 hours and 52 minutes, average saturation 92%. Low saturation 87%. Time with saturation less than or equal to 88% was 3 minutes. Oxygen desaturation index 0.6. ?Patient had ABG at the end of the night on these settings with a pH of 7.40/52/64. 08/31/24: EXAMINATION: CTA chest PE protocol DATE: 08/31/2024 11:02 INDICATION: Shortness of breath TECHNIQUE: Computed tomography (CT) pulmonary angiogram of the chest was performed with 100 mL Omnipaque-350 intravenous contrast. Additional 3D reconstructions utilizing coronal maximum intensity projection (MIP) were performed. Automated exposure control and iterative reconstruction technique were employed. The dose-length product was 151.66 mGy-cm. COMPARISON: 08/02/2024 and 12/08/2023 FINDINGS: No pulmonary embolism. Severe emphysema with chronic partially calcified by apical pleural-parenchymal scarring. There is been some progression of low- attenuation fluid/mucus within several of the cystic airspace in the right upper lobe which are new since 12/08/2023 consistent with pneumonia. Unchanged chronic reticulonodular opacities with a few small calcified nodules in the basilar right middle lobe and lingula consistent with sequela of chronic pneumonia. No pleural effusion. Heart size is normal. Atherosclerotic coronary artery calcific lesion. No pericardial effusion. Thoracic aorta is normal in caliber. No pathologically enlarged thoracic lymphadenopathy. 1 cm cyst and 13 x 5 x 3 mm nonobstructing stone at the upper pole the left kidney. There is scattered cortical scarring in the right kidney consistent with sequela of prior infection or infarction. Additional 2 mm nonobstructing stone at the lower pole of the right kidney. Mild thoracic spondylosis with chronic minimal anterior wedging of a few mid and lower thoracic vertebral bodies. Spinal stimulator leads which terminate at the posterior central canal at the level of T6-T7. IMPRESSION: 1. No pulmonary embolism. 2. Severe emphysema with right upper lobe pneumonia. 3. Bilateral nonobstructing nephrolithiasis. --------- 10/27/2022 EXAMINATION: CT lung screening INDICATION: Personal history of nicotine dependence, current smoker with 50 pack year history COMPARISON: 10/25/2021 FINDINGS: There is severe emphysema. There is a stable 5 mm nodule of the left upper lobe. There is stable 3 mm nodule of the right upper lobe. The lungs are free of acute opacities. No pleural effusion or pneumothorax. There is scarring and calcification of the lung apices. Calcified coronary artery atherosclerosis is noted. No pathologically enlarged thoracic lymph nodes are identified. The heart size is normal. There is mild thoracic spondylosis. IMPRESSION: 1. Lung-RADS category 2: Benign appearance or behavior. Continue annual screening with noncontrast low-dose chest CT in 12 months. 12/19/2019 PULMONARY FUNCTION TESTS Results are reliable and reproducible. Spirometry: FEV1 is 60%, moderately decreased, 1.49 L. FVC is 90% normal. Decreased FEV1% consistent with airflow obstruction. . There is a 14% increase in FEV1 with bronchodilator, 200 ml, which is significant. Lung volumes: Total lung capacity 107% normal. RV/TLC increased 48% and consistent with air trapping. Airway resistance increased 336%. Diffusion: DLCO moderately reduced 35%. Flow volume loop: Scooping of the expiratory limb. IMPRESSION: Moderate obstructive ventilatory impairment with good response to bronchodilator, air trapping, moderate diffusion impairment. This is consistent with COPD. 11/23/2019: Alpha 1 anti trypsin genotype MM. ?Alpha 1 anti trypsin level 160, normal. Review of Systems Constitutional: Constitutional: Reports no additional constitutional complaints Eyes: Eyes: Reports no additional eye complaints ENT: Reports system reviewed and no additional complaints, except as documented Cardiovascular: Cardiovascular: Reports no additional cardiovascular complaints Respiratory: Respiratory: Reports no additional respiratory complaints Gastrointestinal: Gastrointestinal: Reports no additional gastrointestinal complaints Musculoskeletal: Musculoskeletal: Reports no additional musculoskeletal complaints Neurologic: Reports system reviewed and no additional complaints, except as documented Psychiatric: Psychiatric: Reports no additional psychiatric complaints Endocrine: Endocrine: Reports no additional endocrine complaints Hematologic/Lymphatic: Hematologic/Lymphatic: Reports no additional hematologic/lymphatic complaints Allergic/Immunologic: Allergic/Immunologic: Reports no additional allergic/immunologic complaints Exam Const: General: cooperative and comfortable Orientation/consciousness: oriented to person, oriented to place and oriented to time HENMT: Head: normal to inspection Ears: hearing grossly normal bilaterally Eyes: General: appearance normal, both eyes and all related structures Neck: Neck: normal visual inspection Chest: Chest palpation & inspection: normal inspection of the chest Resp: Effort & Inspection: normal respiratory effort and able to speak in complete sentences Auscultation: no crackles, no rales, no rhonchi, no wheezes and diminished lung sounds Cardio: Jugular venous distension: no JVD GI: Inspection: normal to inspection Skin: General skin exam: normal color Neuro: General: oriented to person, oriented to place and oriented to time Extrem: General: normal to inspection and no edema Psych: Appearance: grossly normal Objective Data Vital Signs Vital Signs: Vital Signs - 24 hr 12/05/24 10:41 12/05/24 12:00 12/05/24 14:00 Temperature 36.2 C L Pulse Rate 96 90 Respiratory Rate 18 Blood Pressure 104/40 L Pulse Oximetry 94 Oxygen Delivery Nasal Cannula Oxygen Flow Rate 3 12/05/24 14:39 12/05/24 15:33 12/05/24 15:33 Temperature Pulse Rate 91 91 Respiratory Rate 18 18 Blood Pressure Pulse Oximetry 96 Oxygen Delivery Nasal Cannula Oxygen Flow Rate 2 2 12/05/24 15:42 12/05/24 16:00 12/05/24 20:00 Temperature Pulse Rate 98 97 Respiratory Rate Blood Pressure Pulse Oximetry 94 Oxygen Delivery Nasal Cannula Oxygen Flow Rate 2 12/05/24 20:00 12/05/24 20:25 12/05/24 20:35 Temperature Pulse Rate 91 96 Respiratory Rate 18 Blood Pressure Pulse Oximetry 92 Oxygen Delivery Oxygen Flow Rate 2 12/05/24 20:40 12/05/24 22:00 12/05/24 22:06 Temperature 36.4 C Pulse Rate 96 98 Respiratory Rate 18 18 Blood Pressure 137/77 Pulse Oximetry 95 94 Oxygen Delivery Oxygen Flow Rate 3 12/06/24 00:00 12/06/24 04:00 12/06/24 05:24 Temperature Pulse Rate 88 98 96 Respiratory Rate 18 Blood Pressure Pulse Oximetry Oxygen Delivery Oxygen Flow Rate 12/06/24 06:00 12/06/24 08:34 12/06/24 08:40 Temperature 36.6 C Pulse Rate 92 75 75 Respiratory Rate 18 18 18 Blood Pressure 131/69 Pulse Oximetry 96 Oxygen Delivery Oxygen Flow Rate 12/06/24 08:41 Temperature Pulse Rate Respiratory Rate Blood Pressure Pulse Oximetry 100 Oxygen Delivery Nasal Cannula Oxygen Flow Rate 2 Intake/Output Intake/Output: Intake & Output 12/03/24 12/04/24 12/05/24 12/06/24 23:59 23:59 23:59 23:59 Intake Total 2190 560 400 Output Total 50 Balance 2140 560 400 Meds/Results Medications: Active Medications Generic Name Dose Route Start Last Admin Trade Name Freq PRN Reason Stop Dose Admin Acetaminophen 650 mg 12/04/24 13:40 12/05/24 21:05 Acetaminophen 325 Mg Tablet PO 650 mg Q6H PRN Administration Mild Pain (1-3) or Fever Acetylcysteine 200 mg 12/05/24 14:00 12/06/24 08:27 Acetylcysteine 20% Inhal Soln 800 Mg/4 Ml Vial INHALATION 200 mg Q6HRT ALBERTA Administration Albuterol/Ipratropium 3 ml 12/04/24 14:00 12/06/24 08:27 Ipratropium 0.5 Mg/Albuterol Sulfate 2.5 Mg Ampul.Neb 3 Ml INHALATION 3 ml Q6HRT ALBERTA Administration Azithromycin 500 mg 12/05/24 14:45 12/05/24 17:23 Azithromycin 500 Mg Tablet PO 500 mg DAILY [facility] Administration Enoxaparin Sodium 40 mg 12/05/24 09:00 12/06/24 08:43 Enoxaparin 40 Mg/0.4 Ml Syringe SUB-Q 40 mg DAILY ALBERTA Administration Guaifenesin 1,200 mg 12/05/24 09:35 12/06/24 08:43 Guaifenesin 12 Hr 600 Mg Tabcr PO 1,200 mg Q12HR ALBERTA Administration Moxifloxacin HCl 400 mg 12/05/24 14:45 12/05/24 17:23 Moxifloxacin Hcl 400 Mg Tablet PO 400 mg QAM [facility] Administration Ondansetron HCl 4 mg 12/04/24 13:40 12/05/24 21:06 Ondansetron Hcl Odt 4 Mg Tablet PO 4 mg Q6H PRN Administration Nausea And Vomiting Rifampin 600 mg 12/05/24 14:45 12/05/24 17:23 Rifampin 300 Mg Capsule PO 600 mg DAILY@0600 [facility] Administration Sodium Chloride 6 ml 12/06/24 05:00 Sodium Chlor 3% 15 Ml Neb (Respiratory Therapy) INHALATION 12/08/24 05:01 DAILY@0500 [facility] Radiology Results: ITS Impressions Chest X-Ray 12/04/24 08:26 IMPRESSION: 1. Emphysema. 2. Unchanged consolidation right upper lung zone consistent with pneumonia. 3. Unchanged opacities in the bilateral lower lung zones, right greater than left which could represent additional pneumonia, asymmetric mild pulmonary edema, atelectasis or some combination thereof. Head CT 12/04/24 09:15 IMPRESSION: 1. 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 No acute intracranial process. 2. Age-related changes including mild diffuse volume loss and mild scattered white matter hypoattenuation consistent with chronic small vessel ischemic disease. Chest/Abdomen/Pelvis CT 12/04/24 09:20 IMPRESSION: 1. Severe emphysema with multifocal pneumonia in the right lung most prominent in the upper lobe with some interval progression in the right lower lobe. 2. Unchanged 2.7 x 1.5 cm subtle mass in the right hepatic lobe consistent with biopsy-proven hepatocellular carcinoma. 3. Bilateral nonobstructing nephrolithiasis. 4. Large amount of stool throughout the colon suggest diarrhea. Labs Labs: Laboratory Results - last 24 hr 12/06/24 06:23 WBC 8.9 RBC 3.53 L Hgb 10.3 L Hct 32.6 L MCV 92.4 D MCH 29.2 MCHC 31.6 L RDW 13.2 Plt Count 239 MPV 9.7 Immature Gran % (Auto) 0.5 Neut % (Auto) 80.8 H Lymph % (Auto) 4.5 L [place] % (Auto) 10.4 H Eos % (Auto) 3.6 Baso % (Auto) 0.2 Lymph # (Auto) 0.40 L [place] # (Auto) 0.9 H Eos # (Auto) 0.3 Baso # (Auto) 0.0 Abs Immat Gran (auto) 0.04 H Absolute Neuts (auto) 7.2 H Absolute Nucleated RBC 0.000 Nucleated RBC % 0.0 Sodium 139 Potassium 3.6 Chloride 100 Carbon Dioxide 28 Anion Gap 11 BUN 12 Creatinine 0.66 L Estim Creat Clear Calc 46 Estimated GFR > 60 Glucose 122 H Calcium 9.4 Magnesium 1.9
[2024-12-06] MEDS: MOXIFLOXACIN HCL 400 MG TABLET PO (11:31)
[2024-12-06] MEDS: AZITHROMYCIN 500 MG TABLET PO (11:32)
[2024-12-06] MEDS: ONDANSETRON HCL ODT 4 MG TABLET PO (12:39)
--- NOTE | 2024-12-06 14:29 | WPDINFPN2 ---
Progress Note: A&P Assessment and Plan (1) Mycobacterial disease, pulmonary: Code(s): A31.0 - Pulmonary mycobacterial infection Status: Acute Plan # Persistent, progressive cavitary pneumonia. Initial workup negative for cancer on bronchoscopy specimens. With positive AFB smear. On bronchoscopy. 11/24/2024. Low pretest probability for tPA based on risk factors, including negative quant gold. Atypical mycobacterial disease versus colonization. Consideration for MAC based on most likely statistically followed by m. abscesses and other atypical mycobacterial process. TB not completely rule out. Primary lung cancer not completely ruled out. Secondarily infected inflammatory malignant process possible. No endobronchial lesions noted on bronchoscopy. Underlying COPD, oxygen dependent with active tobacco use up until recently. #Newly diagnosed hepatocellular carcinoma. Recent diagnosis. No chemo yet. #Diarrhea. r/o C diff Plan: Based on persistent and worsening symptoms with progression of lung findings over several months, would consider this an active mycobacterial process. Cannot completely rule out TB. No TB PCR probe could be done on 11/22 specimen. Negative probe would make active TB much less likely. Due to fairly rapid progression, we will give empiric therapy, based on MAC historical susceptibilities. Will need to await on formal speciation and susceptibilities in the setting of other atypical mycobacteria. Continue azithromycin, moxifloxacin plus rifampin. discussed drug reactions and side effects. Discussed with lab. Unable to set up PCR testing on the 11/22 specimen. We will follow-up on 12/06 induced sputum. Dyspnea positive, will see if reference of setup PCR for TB. Anticipating she will go home on 3 drug regimen for empiric therapy, she continues to improve. Will set up outpatient follow-up with me via telemedicine as well as following drug toxicities with CMP, especially considering underlying newly diagnosed hepatocellular carcinoma. Will follow-up on drug tolerance/ side effects and consider treatment goals with overall direction of care. Follow-up C diff and GI panel. Hold any empiric C diff therapy. Maintain airborne isolation although low likelihood TB. Will discuss options if she goes home versus skilled setting as far as any precautions. She is home, I do not believe she would need to pursue any isolation precautions. Discussed with patient, Dr. Huntley and Dr. Newman this consult was done with telemedicine with audio and visual aids via a HIPPA protected interface. Patient consented to telemedicine. I performed a telemedicine visit in my office in [facility] with the patient who was at [facility] in [place], [place] Subjective Date/time seen: 12/06/24 14:29 Interval history: she feels a bit better today. Had induced sputum this morning still having some cough. Was able to wean down to [address] Newman. No fevers. Still having some loose stools. GI workup including C diff pending. Noted some orange urine consistent with rifampin use. no other side effects. Review of Systems Review of Systems: As reviewed in HPI. Nothing further Exam Narrative: examined via the aid of audio and visual telemedicine. Still on nasal cannula. Nonlabored breathing. Respiratory rate approximately 18. Very pleasant. Alert oriented x3. No rash. No icterus. No jaundice obvious from present ir perspective at bedside or my visual exam on video. Objective Data Vital Signs Vital Signs: Vital Signs - 24 hr 12/05/24 14:39 12/05/24 15:33 12/05/24 15:33 Temperature Pulse Rate 91 91 Respiratory Rate 18 18 Blood Pressure Pulse Oximetry 96 Oxygen Delivery Nasal Cannula Oxygen Flow Rate 2 2 12/05/24 15:42 12/05/24 16:00 12/05/24 20:00 Temperature Pulse Rate 98 97 Respiratory Rate Blood Pressure Pulse Oximetry 94 Oxygen Delivery Nasal Cannula Oxygen Flow Rate 2 12/05/24 20:00 12/05/24 20:25 12/05/24 20:35 Temperature Pulse Rate 91 96 Respiratory Rate 18 Blood Pressure Pulse Oximetry 92 Oxygen Delivery Oxygen Flow Rate 2 12/05/24 20:40 12/05/24 22:00 12/05/24 22:06 Temperature 36.4 C Pulse Rate 96 98 Respiratory Rate 18 18 Blood Pressure 137/77 Pulse Oximetry 95 94 Oxygen Delivery Oxygen Flow Rate 3 12/06/24 00:00 12/06/24 04:00 12/06/24 05:24 Temperature Pulse Rate 88 98 96 Respiratory Rate 18 Blood Pressure Pulse Oximetry Oxygen Delivery Oxygen Flow Rate 12/06/24 06:00 12/06/24 08:00 12/06/24 08:00 Temperature 36.6 C Pulse Rate 92 105 H Respiratory Rate 18 Blood Pressure 131/69 Pulse Oximetry 96 92 Oxygen Delivery Nasal Cannula Oxygen Flow Rate 2 12/06/24 08:34 12/06/24 08:40 12/06/24 08:41 Temperature Pulse Rate 75 75 Respiratory Rate 18 18 Blood Pressure Pulse Oximetry 100 Oxygen Delivery Nasal Cannula Oxygen Flow Rate 2 12/06/24 12:00 Temperature Pulse Rate 99 Respiratory Rate Blood Pressure Pulse Oximetry Oxygen Delivery Oxygen Flow Rate Intake/Output Intake/Output: Intake & Output 12/03/24 12/04/24 12/05/24 12/06/24 23:59 23:59 23:59 23:59 Intake Total 2190 560 1760 Output Total 50 Balance 2140 560 1760 Meds/Results Medications: Active Medications Generic Name Dose Route Start Last Admin Trade Name Freq PRN Reason Stop Dose Admin Acetaminophen 650 mg 12/04/24 13:40 12/05/24 21:05 Acetaminophen 325 Mg Tablet PO 650 mg Q6H PRN Administration Mild Pain (1-3) or Fever Acetylcysteine 200 mg 12/05/24 14:00 12/06/24 14:08 Acetylcysteine 20% Inhal Soln 800 Mg/4 Ml Vial INHALATION 200 mg Q6HRT ALBERTA Administration Albuterol/Ipratropium 3 ml 12/04/24 14:00 12/06/24 14:08 Ipratropium 0.5 Mg/Albuterol Sulfate 2.5 Mg Ampul.Neb 3 Ml INHALATION 3 ml Q6HRT ALBERTA Administration Azithromycin 500 mg 12/05/24 14:45 12/06/24 11:32 Azithromycin 500 Mg Tablet PO 500 mg DAILY ALBERTA Administration Enoxaparin Sodium 40 mg 12/05/24 09:00 12/06/24 08:43 Enoxaparin 40 Mg/0.4 Ml Syringe SUB-Q 40 mg DAILY ALBERTA Administration Guaifenesin 1,200 mg 12/05/24 09:35 12/06/24 08:43 Guaifenesin 12 Hr 600 Mg Tabcr PO 1,200 mg Q12HR ALBERTA Administration Moxifloxacin HCl 400 mg 12/05/24 14:45 12/06/24 11:31 Moxifloxacin Hcl 400 Mg Tablet PO 400 mg QAM ALBERTA Administration Ondansetron HCl 4 mg 12/04/24 13:40 12/06/24 12:39 Ondansetron Hcl Odt 4 Mg Tablet PO 4 mg Q6H PRN Administration Nausea And Vomiting Rifampin 600 mg 12/05/24 14:45 12/06/24 11:31 Rifampin 300 Mg Capsule PO 600 mg DAILY@0600 ALBERTA Administration Sodium Chloride 6 ml 12/06/24 05:00 12/06/24 13:06 Sodium Chlor 3% 15 Ml Neb (Respiratory Therapy) INHALATION 12/08/24 05:01 Not Given DAILY@0500 [facility] Radiology Results: ITS Impressions Chest X-Ray 12/04/24 08:26 IMPRESSION: 1. Emphysema. 2. Unchanged consolidation right upper lung zone consistent with pneumonia. 3. Unchanged opacities in the bilateral lower lung zones, right greater than left which could represent additional pneumonia, asymmetric mild pulmonary edema, atelectasis or some combination thereof. Head CT 12/04/24 09:15 IMPRESSION: 1. 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 No acute intracranial process. 2. Age-related changes including mild diffuse volume loss and mild scattered white matter hypoattenuation consistent with chronic small vessel ischemic disease. Chest/Abdomen/Pelvis CT 12/04/24 09:20 IMPRESSION: 1. Severe emphysema with multifocal pneumonia in the right lung most prominent in the upper lobe with some interval progression in the right lower lobe. 2. Unchanged 2.7 x 1.5 cm subtle mass in the right hepatic lobe consistent with biopsy-proven hepatocellular carcinoma. 3. Bilateral nonobstructing nephrolithiasis. 4. Large amount of stool throughout the colon suggest diarrhea. Labs Labs: Laboratory Results - last 24 hr 12/06/24 06:23 WBC 8.9 RBC 3.53 L Hgb 10.3 L Hct 32.6 L MCV 92.4 D MCH 29.2 MCHC 31.6 L RDW 13.2 Plt Count 239 MPV 9.7 Immature Gran % (Auto) 0.5 Neut % (Auto) 80.8 H Lymph % (Auto) 4.5 L [place] % (Auto) 10.4 H Eos % (Auto) 3.6 Baso % (Auto) 0.2 Lymph # (Auto) 0.40 L [place] # (Auto) 0.9 H Eos # (Auto) 0.3 Baso # (Auto) 0.0 Abs Immat Gran (auto) 0.04 H Absolute Neuts (auto) 7.2 H Absolute Nucleated RBC 0.000 Nucleated RBC % 0.0 Sodium 139 Potassium 3.6 Chloride 100 Carbon Dioxide 28 Anion Gap 11 BUN 12 Creatinine 0.66 L Estim Creat Clear Calc 46 Estimated GFR > 60 Glucose 122 H Calcium 9.4 Magnesium 1.9
--- NOTE | 2024-12-06 16:18 | P.PNIM_ITS ---
Progress Note: A&P Assessment and Plan (1) Generalized weakness: Code(s): R53.1 - Weakness Status: Acute Assessment and Plan: Chief complaint on admission. Multifactorial. Continue PT and OT. Ambulate with assistance (2) Mycobacterial disease, pulmonary: Code(s): A31.0 - Pulmonary mycobacterial infection Status: Acute Assessment and Plan: Progressive cavitary pneumonia. Bronchoscopy performed on 11/24/2024 with positive AFB smear. Infectious disease consulted, their recommendations have been appreciated. Initial antibiotics cefepime doxycycline and vancomycin have been discontinued. On 12/05/2024 start azithromycin, moxifloxacin, rifampin. Airborne isolation. TB PCR probe could not be processed on previous sputum culture. We have sputum induction x3. First sample processing from 12/06/2024. (3) COPD (chronic obstructive pulmonary disease): Code(s): J44.9 - Chronic obstructive pulmonary disease, unspecified Status: Acute Assessment and Plan: 12/06/2024 overnight oximetry on 3 L completed. Pulmonology recommendations noted. Continue DuoNebs q.6 hours, guaifenesin 1200 mg p.o. b.i.d. and Mucomyst nebulizers q.6 hours. This appears to work well, her shortness of breath is improved, junky airway secretions have improved. (4) Chronic respiratory failure with hypoxia and hypercapnia: Code(s): J96.11 - Chronic respiratory failure with hypoxia; J96.12 - Chronic respiratory failure with hypercapnia Status: Chronic Assessment and Plan: Continue 3 L nasal cannula at night, 1-2 L at rest, during the day. (5) Diarrhea: Qualifiers: Diarrhea type: unspecified type Qualified Code(s): R19.7 - Diarrhea, un specified Code(s): R19.7 - Diarrhea, unspecified Status: Acute Assessment and Plan: Has only had 1 bowel movement since admission, loose stool on 12/06/2024, Stool studies and C diff PCR samples taken from that. 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 This is been ongoing for the past 8 months. Worsening shortness of breath as well. Due to the weakness he has had an increase in falls with 3 the night [employer]. Recent admission at [facility], transferred on 11/23/2024 to [facility] for high- level pulmonary care where she received extensive pulmonary toileting and was treated for suspected pneumonia, she reports she was discharged on 2 antibiotics. Admits to having watery bowel movements which she had at [facility] in November as well. On presentation WBC 11.4, neutrophilia, serum creatinine 1.07, procalcitonin 0.2, urinalysis with many squamous cells, nasal MRSA PCR negative, head CT with chronic cystic encephalomalacia in the right parietal lobe, age-related changes including mild diffuse volume loss and mild scattered white matter hypoattenuation consistent with chronic small-vessel ischemic disease. CT chest abdomen pelvis without contrast demonstrating severe emphysema with multifocal pneumonia on the right lung most prominent in the upp er lobe with some interval progression in the right lower lobe, unchanged 2.7 x 1.5 cm subtle mass in the right hepatic lobe consistent with biopsy-proven hepatocellular carcinoma, bilateral nonobstructing nephrolithiasis, large amount of stool throughout the colon suggesting diarrhea. ----- Patient would like to be DNR. Lovenox 40 mg subQ q.a.m. on hold starting 12/07/2024 due to hemoptysis. Ambulate with assistance. PT/OT evaluations. Saline lock IV. Prior to admission the patient lives at home and uses a cane or walker for daily activities. Subjective Date/time seen: 12/06/24 16:18 Interval history: No major acute overnight events. Patient had blood-tinged sputum this morning. She feels her shortness of breath is improved, still has exertional dyspnea. Review of Systems Review of Systems: All systems reviewed & are unremarkable except as noted in HPI and below (Subjective) Exam Const: General: comfortable and no acute distress HENMT: Mouth: Yes moist mucous membranes Eyes: Pupils: Equal, round and reactive pupils present Neck: Neck: supple Resp: Effort & Inspection: normal respiratory effort Other: Rhonchi right upper lobe, decreased air intake Cardio: Rate: regular rate Rhythm: regular rhythm GI: Inspection: non-distended GI Palp: Yes Soft to palpation Neuro: Other: No focal deficits Extrem: General: no edema Objective Data Vital Signs Vital Signs: Vital Signs - 24 hr 12/05/24 20:00 12/05/24 20:00 12/05/24 20:25 Temperature Pulse Rate 91 96 Respiratory Rate 18 Blood Pressure Pulse Oximetry 94 Oxygen Delivery Nasal Cannula Oxygen Flow Rate 2 12/05/24 20:35 12/05/24 20:40 12/05/24 22:00 Temperature 97.6 F Pulse Rate 96 98 Respiratory Rate 18 18 Blood Pressure 137/77 Pulse Oximetry 92 95 Oxygen Delivery Oxygen Flow Rate 2 12/05/24 22:06 12/06/24 00:00 12/06/24 04:00 Temperature Pulse Rate 88 98 Respiratory Rate Blood Pressure Pulse Oximetry 94 Oxygen Delivery Oxygen Flow Rate 3 12/06/24 05:24 12/06/24 06:00 12/06/24 08:00 Temperature 97.9 F Pulse Rate 96 92 105 H Respiratory Rate 18 18 Blood Pressure 131/69 Pulse Oximetry 96 Oxygen Delivery Oxygen Flow Rate 12/06/24 08:00 12/06/24 08:34 12/06/24 08:40 Temperature Pulse Rate 75 75 Respiratory Rate 18 18 Blood Pressure Pulse Oximetry 92 Oxygen Delivery Nasal Cannula Oxygen Flow Rate 2 12/06/24 08:41 12/06/24 12:00 12/06/24 14:00 Temperature 97.1 F L Pulse Rate 99 91 Respiratory Rate 18 Blood Pressure 111/43 L Pulse Oximetry 100 93 Oxygen Delivery Nasal Cannula Oxygen Flow Rate 2 12/06/24 16:00 Temperature Pulse Rate 105 H Respiratory Rate Blood Pressure Pulse Oximetry Oxygen Delivery Oxygen Flow Rate Intake/Output Intake/Output: Intake & Output 12/03/24 12/04/24 12/05/24 12/06/24 23:59 23:59 23:59 23:59 Intake Total 2190 560 1760 Output Total 50 Balance 2140 560 1760 Meds/Results Medications: Active Medications Generic Name Dose Route Start Last Admin Trade Name Freq PRN Reason Stop Dose Admin Acetaminophen 650 mg 12/04/24 13:40 12/05/24 21:05 Acetaminophen 325 Mg Tablet PO 650 mg Q6H PRN Administration Mild Pain (1-3) or Fever Acetylcysteine 200 mg 12/05/24 14:00 12/06/24 14:08 Acetylcysteine 20% Inhal Soln 800 Mg/4 Ml Vial INHALATION 200 mg Q6HRT ALBERTA Administration Albuterol/Ipratropium 3 ml 12/04/24 14:00 12/06/24 14:08 Ipratropium 0.5 Mg/Albuterol Sulfate 2.5 Mg Ampul.Neb 3 Ml INHALATION 3 ml Q6HRT ALBERTA Administration Azithromycin 500 mg 12/05/24 14:45 12/06/24 11:32 Azithromycin 500 Mg Tablet PO 500 mg DAILY [facility] Administration Enoxaparin Sodium 40 mg 12/05/24 09:00 12/06/24 08:43 Enoxaparin 40 Mg/0.4 Ml Syringe SUB-Q 40 mg DAILY [facility] Administration Guaifenesin 1,200 mg 12/05/24 09:35 12/06/24 08:43 Guaifenesin 12 Hr 600 Mg Tabcr PO 1,200 mg Q12HR ALBERTA Administration Lovastatin 40 mg 12/06/24 21:00 Lovastatin 20 Mg Tablet PO [facility] Moxifloxacin HCl 400 mg 12/05/24 14:45 12/06/24 11:31 Moxifloxacin Hcl 400 Mg Tablet PO 400 mg QAM [facility] Administration Non-Formulary Medication 5 mg 12/06/24 21:00 Solifenacin [Vesicare] PO 01/05/25 20:59 [facility] Ondansetron HCl 4 mg 12/04/24 13:40 12/06/24 12:39 Ondansetron Hcl Odt 4 Mg Tablet PO 4 mg Q6H PRN Administration Nausea And Vomiting Rifampin 600 mg 12/05/24 14:45 12/06/24 11:31 Rifampin 300 Mg Capsule PO 600 mg DAILY@0600 [facility] Administration Sodium Chloride 6 ml 12/06/24 05:00 12/06/24 13:06 Sodium Chlor 3% 15 Ml Neb (Respiratory Therapy) INHALATION 12/08/24 05:01 Not Given DAILY@0500 [facility] Radiology Results: ITS Impressions Chest X-Ray 12/04/24 08:26 IMPRESSION: 1. Emphysema. 2. Unchanged consolidation right upper lung zone consistent with pneumonia. 3. Unchanged opacities in the bilateral lower lung zones, right greater than l eft which could represent additional pneumonia, asymmetric mild pulmonary edema, atelectasis or some combination thereof. Head CT 12/04/24 09:15 IMPRESSION: 1. 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 No acute intracranial process. 2. Age-related changes including mild diffuse volume loss and mild scattered white matter hypoattenuation consistent with chronic small vessel ischemic disease. Chest/Abdomen/Pelvis CT 12/04/24 09:20 IMPRESSION: 1. Severe emphysema with multifocal pneumonia in the right lung most prominent in the upper lobe with some interval progression in the right lower lobe. 2. Unchanged 2.7 x 1.5 cm subtle mass in the right hepatic lobe consistent with biopsy-proven hepatocellular carcinoma. 3. Bilateral nonobstructing nephrolithiasis. 4. Large amount of stool throughout the colon suggest diarrhea. Labs Labs: Laboratory Results - last 24 hr 12/06/24 06:23 WBC 8.9 RBC 3.53 L Hgb 10.3 L Hct 32.6 L MCV 92.4 D MCH 29.2 MCHC 31.6 L RDW 13.2 Plt Count 239 MPV 9.7 Immature Gran % (Auto) 0.5 Neut % (Auto) 80.8 H Lymph % (Auto) 4.5 L [place] % (Auto) 10.4 H Eos % (Auto) 3.6 Baso % (Auto) 0.2 Lymph # (Auto) 0.40 L [place] # (Auto) 0.9 H Eos # (Auto) 0.3 Baso # (Auto) 0.0 Abs Immat Gran (auto) 0.04 H Absolute Neuts (auto) 7.2 H Absolute Nucleated RBC 0.000 Nucleated RBC % 0.0 Sodium 139 Potassium 3.6 Chloride 100 Carbon Dioxide 28 Anion Gap 11 BUN 12 Creatinine 0.66 L Estim Creat Clear Calc 46 Estimated GFR > 60 Glucose 122 H Calcium 9.4 Magnesium 1.9
[2024-12-06] MEDS: SOLIFENACIN 5 MG TABLET PO (20:57)
[2024-12-06] MEDS: LOVASTATIN 20 MG TABLET 40 MG PO (20:57)
[2024-12-06] MEDS: ACETAMINOPHEN 325 MG TABLET 650 MG PO (21:01)
[2024-12-07] VITALS (15 sets, daily range): BP systolic 113–140; BP diastolic 52–68; PULSE 77–109; RESP 15–26; TEMP 36.4–37.1; O2SAT 94–100
--- NOTE | 2024-12-07 02:19 | ECG_ITS ---
Test Date: 2024-12-07 02:28:54 Measurements Intervals Cable Rate: 163 P: 0 ME: 0 QRS: 49 QRSD: 82 T: 67 QT: 273 QTc: 451 Interpretive Statements ATRIAL FIBRILLATION WITH RAPID VENTRICULAR RESPONSE POSSIBLE RIGHT VENTRICULAR CONDUCTION DELAY ABNORMAL ECG Compared to ECG 12/04/2024 07:38:00 SINUS RHYTHM NO LONGER PRESENT Electronically Signed On 12-07-2024 06:22:[address] D.O.
[2024-12-07 03:01] LABS: Hematocrit 32.6 % (37.0-47.0); Hemoglobin 10.1 g/dL (12.0-15.0); Immature Granulocyte Percent A 0.8 % (0-0.5); Lymphocytes Absolute Auto 0.67 K/mm3 (0.9-3.2); Mean Corpuscular HGB Conc 31.0 g/dl (32-36); Mean Corpuscular Hemoglobin 28.9 pg (26-34); Mean Corpuscular Volume 93.1 fl (80-100); Nucleated Red Blood Cells Absolute Auto 0.000 K/mm3 (0.0-0.012); Nucleated Red Blood Cells Perc 0.0 % (0.0-0.2); Platelet Count Result 220 k/mm3 (150-375); Red Blood Count 3.50 M/mm3 (4.2-5.4); White Blood Count 6.6 K/mm3 (4.5-10.0)
[2024-12-07 03:16] LABS: Alanine Aminotransferase 21 U/L (6-35); Albumin Level 3.3 g/dL (3.5-5.1); Alkaline Phosphatase 143 U/L (38-126); Anion Gap 7 mmol/L (4-12); Aspartate Amino Transferase 31 U/L (14-36); Bilirubin,Total 1.4 mg/dL (0.2-1.3); Blood Urea Nitrogen 20 mg/dL (7-17); Calcium 9.2 mg/dL (8.4-10.2); Carbon Dioxide 28 mmol/L (22-30); Chloride 98 mmol/L (98-107); Estimated CRCL calculation 50 ml/min; Estimated Glomerular Filt Rate > 60; Glucose 118 mg/dL (65-110); Magnesium 1.9 mg/dL (1.6-2.3); Potassium 3.2 mmol/L (3.4-5.0); Sodium 133 mmol/L (137-145); Total Protein 7.0 g/dL (6.3-8.2)
[2024-12-07 03:27] LABS: Troponin I 0.024 ng/mL (0.000-0.034)
--- NOTE | 2024-12-07 03:46 | PC.NURSE ---
This patient, Melyssa Mccall, was received from [ [phone] ] on 12/07/24 at 0346 in ICU 4. Report received from Willian CABAN. Patient/family oriented to unit policies and routines
[2024-12-07] MEDS: SODIUM CHLORIDE 0.9% IV 1,000 ML 999 ML IV CONT (05:34)
[2024-12-07] MEDS: guaiFENesin 12 HR 600 MG TABCR 1200 MG PO ×2 (08:47→20:03)
[2024-12-07] MEDS: AZITHROMYCIN 500 MG TABLET PO (08:47)
[2024-12-07] MEDS: POTASSIUM CHLORIDE 20 MEQ ER TABLET 40 MEQ PO (09:00)
[2024-12-07] MEDS: MOXIFLOXACIN HCL 400 MG TABLET PO (09:01)
[2024-12-07 09:16] LABS: Toxigenic C. Diff NEGATIVE (NEGATIVE)
[2024-12-07] MEDS: IPRATROPIUM 0.5 MG/ALBUTEROL SULFATE 2.5 MG AMPUL.NEB 3 ML INHALATION (10:00)
[2024-12-07] MEDS: ACETYLCYSTEINE 20% INHAL SOLN 800 MG/4 ML VIAL 200 MG INHALATION ×3 (10:00→20:30)
--- NOTE | 2024-12-07 11:00 | P.PNPL_ITS ---
Progress Note: A&P Assessment and Plan (1) Mycobacterial disease, pulmonary: Code(s): A31.0 - Pulmonary mycobacterial infection Status: Acute Assessment and Plan: 10/21/2024: CT scan of the chest reviewed with radiologist and compared to 10/2023, 08/02/2024, 08/31/2024 with worsening right upper lobe low- attenuation lung nodule consistent with atelectasis, mucous retention or pneumonia. 11/01/2024 through 11/07/2024: Admitted to [facility] with a CT scan chest now demonstrating larger right upper lobe consolidation with cavitary lung nodules. Liver biopsy returned for hepatocellular. plan per oncology was for patient to get strong enough to undergo outpatient chemotherapy. 11/03/2024: QuantiFERON gold negative. serologies on 11/01/2024 anti CCP less than 16 11/19/2024 through 11/23/2024: Admitted to [facility] with shortness of breath. CT scan of the chest with worsening right upper lobe infiltrate and progressive cavitary lesions. Treated with pulmonary hygiene, antibiotics, oxygen. 11/22/2024 underwent bronchoscopy to assess for endobronchial lesion or cancer and there was no obstructing mass. Secretions were removed. Biopsies were obtained and were negative for malignancy. Given patient's lack of response she was transferred to [facility] for higher level of care pulmonary, infectious disease and oncology evaluation . Dr. Leonela samson. Transferred on 11/23/2024. 11/24/24: bronchial wash: AFB smear 1+ positive with 4-36 AFB per 1000 field at 400 X. 12/04/2024: Apparently discharged from [facility] on 11/30/24 on 2 antibiotics, Perhaps linezolid. does not sound like any additional procedures were obtained. Presented with weakness and recent falls. She had bilateral wheezes. Room air saturations 97%. 2 L nasal cannula saturation 94%. Temperature was 101.4?. White blood cell count 11.4, creatinine 1.07. Procalcitonin 0.2. MRSA nasal swab PCR negative CT chest abdomen pelvis with unchanged right hepatic lobe carcinoma, severe emphysema worsening right upper lobe consolidations with some new progression in the right lower lobe. Empirically started on cefepime, doxycycline and vancomycin. 12/05/24: Overall the patient tells me she is the same as yesterday. She has rest shortness of breath and dyspnea on exertion. She has cough with no phlegm production. Currently she is on 3 L nasal cannula saturations 94%. White blood cell count 11.2, creatinine 0.68. BNP 1580. procalcitonin increased from 0.2 on 12/04/2024 to 0.7 today. Yesterday she was 2.14 L positive. We etiology of right upper lobe and lower lobe dense consolidations with cavity in the setting of COPD and bronchial wash with AFB smear positive and QuantiFERON gold negative suggests patient has non mycobacterial lung disease. Plan: I have spoken to the hospitalist and he will call the Infectious Disease team at [facility] to see if they are comfortable consult in on this patient. If they are not patient should be transferred to [facility] for Infectious Disease consultation. Patient currently on vancomycin, cefepime and doxycycline for possible bacterial infection and I think this is unlikely given her mild hypoxemia, mild leukocytosis and procalcitonin 0.7. Will defer to Infectious Disease. I will order induced sputum for AFB q.a.m. a.m. x3 days. Seen by infectious disease consult later in the day and started on azithromycin, moxifloxacin and rifampin. 12/06/24: patient tells me she feels a little bit better. Her cough is looser. Her sweating episodes are less intense. Her dyspnea on exertion is the same. She had 1 episode of hemoptysis this morning. When I enter the room she was on 2 L nasal cannula saturations 97%. I decreased her to 1 L and her saturations were 92%. afebrile. White blood cell count 8.9, creatinine 0.66. Plan: Continue azithromycin, moxifloxacin and rifampin per ID. Patient with 1 episode of hemoptysis and will discontinue her low-dose aspirin and lovenox. 12/07/24: patient developed AFib with RVR last night and transferred to the ICU. Amiodarone was ordered but the patient broke to normal sinus rhythm he and did not receive amiodarone. The patient does not remember this event and says that she was sleeping and had no change in her respiratory status. Currently the patient states that she is breathing at her baseline. No hemoptysis. She did have 1 sweat last night but was afebrile. She has less cough but more phlegm production the nebulized DuoNebs and Mucomyst are helping her expectorate. Currently she is on 1 L with saturations 97%. White blood cell count 6.6, creatinine 0.6, her weight is 43 kilos. Plan: Plan: Continue azithromycin, moxifloxacin and rifampin per ID. Discussed with Dr. Haddad (2) COPD (chronic obstructive pulmonary disease): Qualifiers: COPD type: unspecified COPD Qualified Code(s): J44.9 - Chronic obstructive pulmonary disease, unspecified Code(s): J44.9 - Chronic obstructive pulmonary disease, unspecified Status: Chronic Assessment and Plan: Patient with 90 pack year tobacco use, Currently smoking 5 cigarettes a day. 11/23/2019: Alpha 1 anti trypsin genotype MM. ?Alpha 1 anti trypsin level 160, normal. PFTs 12/14/2019 with an FEV1 of 1.49 L, 60% predicted, ratio 49% predicted, positive bronchodilator response, air trapping and severely decreased DLCO that remain moderately decreased when adjusted for alveolar volume. CT scan of the chest 08/31/2024 and 01/15/2021 with severe panlobular emphysema all lung hill. Chronic hypoxemic respiratory failure requiring 1 L at rest, 2 L with activity and 1 L with sleep. Chronic hypercarbic respiratory failure. maintained on Stiolto Respimat. She did not have any help with a trial of breztri as an outpatient. 08/31/2024, white blood cell count 8.1, eosinophils 3% equals 243 per micro L. Currently patient has no evidence of a COPD exacerbation. Plan: I will continue her home regimen of DuoNebs q.6 hours, will add guaifenesin 1200 mg p.o. b.i.d. and Mucomyst nebulizers q.6 hours to help with expectoration. 12/06/24: Patient with no wheezing, shortness of breath dyspnea on exertion stable Plan: I will continue DuoNebs q.6 hours, guaifenesin 1200 mg p.o. b.i.d. and Mucomyst nebulizers q.6 hours to help with expectoration. 12/07/24: Patient with AFib RVR last night plan: I will discontinue albuterol and place the patient on ipratropium nebulizers q.6 hours, continue Mucomyst nebulizers q.6 hours and guaifenesin 1200 p.o. b.i.d.. (3) Chronic respiratory failure with hypoxia and hypercapnia: Code(s): J96.11 - Chronic respiratory failure with hypoxia; J96.12 - Chronic respiratory failure with hypercapnia Status: Chronic Assessment and Plan: 12/05/24: Patient with chronic hypoxemic respiratory failure prescribed no oxygen at rest but she uses 2 L at rest, 2 L with activity and she is prescribed a noninvasive ventilator at night through [facility]. Patient tells me she is no longer using the noninvasive ventilator at night and would like it removed from her house. Plan: We will talk to [facility] and obtain a recent download to confirm she is not using the machine. I will perform an overnight oximetry on 3 L tonight. Later in the day obtained download from 10/01/2024 to 10/30/2024. patient is on BiPAP no rate IPAP 9, EPAP 4. Usage days total 3%. Usage days greater than or equal to 4 hours is 0. Average usage on days used is 2 hours and 18 minutes. AHI 0.4. Median leak 0.0. I interpret this download as total noncompliance, adequate pressures and low leak. 12/06/24: Patient tells me she cannot tolerate home BiPAP. Download confirms she is noncompliant. Patient had an overnight oximetry on 3 L with recording duration of 7 hours and 20 minutes, average saturation 97%, low saturation 85%, time with saturation less than or equal to 88% was 0 minutes. Oxygen desaturation index 1.0. Plan: Continue 3 L nasal cannula at night. (4) Hepatocellular carcinoma: Code(s): C22.0 - Liver cell carcinoma Status: Acute Assessment and Plan: 11/03/2024: Needle biopsy of a liver demonstrated hepatocellular carcinoma. Patient is followed by Oncology with an ultimate plan of her getting strong enough to tolerate outpatient chemotherapy. 12/05/24: plan: Patient remains debilitated. Physical therapy has been ordered. Subjective Date/time seen: 12/07/24 11:00 Interval history: 12/05/2024: This is a new pulmonary consult for pneumonia 69-year-old with a history of hypertension, hyperlipidemia, SVT, the esophageal ring status post dilation, chronic sinusitis, GOLD grade 2 group E COPD on home oxygen and NIV. Patient admitted to [facility] from 08/31/2024 through 09/07/2024 for COPD and pneumonia with hypercarbic respiratory failure. ABG on 08/02/2024 of 7.45/60/128 on 2 L nasal cannula and a blood gas on 09/06/2023 of 7.34/71/ 63 on 2 L nasal cannula.? Patient was treated for COPD and pneumonia with Levaquin, Flagyl, DuoNebs and guaifenesin.? For her hypercarbic respiratory failure she had [facility] insurance and was approved for BiPAP no rate, IPAP 9, EPAP 4 in 2 L bleed in.? This provided adequate oxygenation by overnight oximetry and ABG at the end of the night of 7.40/52/64.? She was discharged on Levaquin for 7 days, Flagyl for 5 days, Stiolto Respimat and rescue albuterol.? She was to continue guaifenesin 600 p.o. b.i.d., Cornet flutter valve and home O2 assessment demonstrated she required 2 L at rest and 2 L with activity.? Plan was for follow-up in the Pulmonary Clinic in 4 weeks for compliance check and to reassess her for CT scan to follow her worsening right upper lobe infiltrate. 09/20/2024: EGD esophagitis was normal.? Nonobstructing ring with dilatation. 09/29/2024: PCP office visit note.? 2 L nasal cannula saturation 93%.? Weight 90 lb.? Respiratory medicines include guaifenesin 600 mg p.o. q.12 hours.? Albuterol inhaler p.r.n., albuterol nebulizer p.r.n., Stiolto Respimat, Flonase nasal spray 1 b.i.d. p.r.n. Clinic on 10/06/2024: stated she had done well and back to her baseline breathing 95% no normal walking more. She could walk 1 block. Had gained 1 lb. Was on Stiolto Respimat wearing 2 L at rest with saturations 92. 2 L with activity saturations ranging 66-90 and 2 L bleed in at night. Continue to smoke 5 cigarettes a day. Cat score was 19. Download compliance with poor compliance at 40% and no usage after 09/26/2024. 10/21/2024: CT scan of the chest reviewed with radiologist and compared to 10/2023, 08/02/2024, 08/31/2024 with worsening right upper lobe low- attenuation lung nodule consistent with atelectasis, mucous retention or pneumonia. PFTs demonstrated severe obstructive abnormality consistent with gold grade 3 group E COPD. with a significant decrease in FVC, FEV1 and diffusing capacity compared to 12/14/2019 and a significant increase in residual volume and functional residual capacity all consistent with worsening COPD. 6 minute walk required no oxygen at rest and 2 L with activity. 11/01/2024 through 11/07/2024: Admitted to [facility] with a CT scan chest now demonstrating larger right upper lobe consolidation with cavitary lung nodules. Liver biopsy returned for hepatocellular. plan per oncology was for patient to get strong enough to undergo outpatient chemotherapy. 11/03/2024: QuantiFERON gold negative. serologies on 11/01/2024 anti CCP less than 16 11/19/2024 through 11/23/2024: Admitted to [facility] with shortness of breath. CT scan of the chest with worsening right upper lobe infiltrate and progressive cavitary lesions. Treated with pulmonary hygiene, antibiotics, oxygen. 11/22/2024 underwent bronchoscopy to assess for endobronchial lesion or cancer and there was no obstructing mass. Secretions were removed. Biopsies were obtained and were negative for malignancy. Given patient's lack of response she was transferred to [facility] for higher level of care pulmonary and oncology treatments. Dr. Leonela samson. Transferred on 11/23/2024. 11/20/2024 IgG mycoplasma titer 1138 with negative mycoplasma PCR. 11/24/24: bronchial wash: AFB smear 1+ positive with 4-36 AFB per 1000 field at 400 X. 12/04/2024: Apparently discharged from [facility] on 11/30/24 on 2 antibiotics, Perhaps linezolid. does not sound like any additional procedures were obtained. Presented with weakness and recent falls. She had bilateral wheezes. Room air saturations 97%. 2 L nasal cannula saturation 94%. Temperature was 101.4?. White blood cell count 11.4, creatinine 1.07. Procalcitonin 0.2. MRSA nasal swab PCR negative CT chest abdomen pelvis with unchanged right hepatic lobe carcinoma, severe emphysema worsening right upper lobe consolidations with some new progression in the right lower lobe. Empirically started on cefepime, doxycycline and vancomycin. 12/05/24: Overall the patient tells me she is the same as yesterday. She has rest shortness of breath and dyspnea on exertion. She has cough with no phlegm production. Currently she is on 3 L nasal cannula saturations 94%. White blood cell count 11.2, creatinine 0.68. BNP 1580. procalcitonin increased from 0.2 on 12/04/2024 to 0.7 today. Yesterday she was 2.14 L positive. Seen by infectious disease consult later in the day and started on azithromycin, moxifloxacin and rifampin. Later in the day obtained download from 10/01/2024 to 10/30/2024. patient is on BiPAP no rate IPAP 9, EPAP 4. Usage days total 3%. Usage days greater than or equal to 4 hours is 0. Average usage on days used is 2 hours and 18 minutes. AHI 0.4. Median leak 0.0. I interpret this download as total noncompliance, adequate pressures and low leak. 12/06/24: patient tells me she feels a little bit better. Her cough is looser. Her sweating episodes are less intense. Her dyspnea on exertion is the same. She had 1 episode of hemoptysis this morning. When I enter the room she was on 2 L nasal cannula saturations 97%. I decreased her to 1 L and her saturations were 92%. White blood cell count 8.9, creatinine 0.66. Patient had an overnight oximetry on 3 L with recording duration of 7 hours and 20 minutes, average saturation 97%, low saturation 85%, time with saturation less than or equal to 88% was 0 minutes. Oxygen desaturation index 1.0. 12/07/24: patient developed AFib with RVR last night and transferred to the ICU. Amiodarone was ordered but the patient broke to normal sinus rhythm he and did not receive amiodarone. The patient does not remember this event and says that she was sleeping and had no change in her respiratory status. Currently the patient states that she is breathing at her baseline. She did have 1 sweat last night but was afebrile. She has less cough but more phlegm production the nebulized DuoNebs and Mucomyst are helping her expectorate. Currently she is on 1 L with saturations 97%. White blood cell count 6.6, creatinine 0.6, her weight is 43 kilos. DATA: 12/04/2024: EXAMINATION: CT chest abdomen pelvis wo con INDICATION: Pneumonia. Trauma. COMPARISON: Chest CT dated 11/19/[address] abdomen and pelvis dated 08/02/2024 FINDINGS: CHEST CT: Severe emphysema with biapical calcified pleural parenchymal scarring. Unchanged region of consolidation with air bronchograms in the right upper lobe which has developed since 08/02/2024 consistent with pneumonia. Again seen is septal line thickening in the right middle and lower lobes with additional patchy regions of consolidation at the basilar right lower lobe consistent with pneumonia. There are few scattered small calcified pulmonary nodules in both lungs along with calcified mediastinal lymph nodes consistent with old granulomatous disease. No pleural effusion. Heart size normal. Atherosclerotic coronary artery calcification. No pericardial effusion. T7 laminectomy and spinal stimulator lead position in the posterior central canal at the level of T6-T7. Chronic mild anterior wedging of T7. ABDOMEN/PELVIS CT: Splenic calcification consistent with old granulomatous disease. Very subtle 2.7 x 1.5 cm Right hepatic lobe mass along the gallbladder fossa consistent with biopsy-proven hepatocellular carcinoma The gallbladder, pancreas and bilateral adrenal glands are normal. Mild cortical atrophy at the lower pole of the right kidney likely sequela prior infection or infarction. Bilateral nonobstructing nephrolithiasis with a couple 1-2 mm stones in the right kidney and 14 x 4 mm stone at the left kidney. Large amount of liquid appearing stool suggestive of diarrhea. No bowel obstruction. The appendix is not visualized. No pericecal inflammatory change to suggest acute appendicitis. Bladder is normal. The uterus is not identified and has likely been surgically resected. No free intraperitoneal gas or fluid. No pathologically enlarged abdominal or pelvic lymphadenopathy. Mild lumbar spondylosis. IMPRESSION: 1. Severe emphysema with multifocal pneumonia in the right lung most prominent in the upper lobe with some interval progression in the right lower lobe. 2. Unchanged 2.7 x 1.5 cm subtle mass in the right hepatic lobe consistent with biopsy-proven hepatocellular carcinoma. 3. Bilateral nonobstructing nephrolithiasis. 4. Large amount of stool throughout the colon suggest diarrhea. 09/07/2024: Home O2 assessment: Rest room air saturation 86%. Rest nasal cannula 1 L saturation 88%. Rest nasal cannula 2 L saturation 91%. Exercise nasal cannula 2 L saturation 90%. Patient requires 2 L with rest and 2 L with activity. 09/07/24: Patient wore her home BiPAP no rate, IPAP 9, EPAP 4 and 2 L bleed in with an over the mouth under the nose mask. She said she wore the mask for 6-1/2 hours and slept well and feels refreshed this morning. Overnight oximetry on these settings with recording duration of 6 hours and 52 minutes, average saturation 92%. Low saturation 87%. Time with saturation less than or equal to 88% was 3 minutes. Oxygen desaturation index 0.6. ?Patient had ABG at the end of the night on these settings with a pH of 7.40/52/64. 08/31/24: EXAMINATION: CTA chest PE protocol DATE: 08/31/2024 11:02 INDICATION: Shortness of breath TECHNIQUE: Computed tomography (CT) pulmonary angiogram of the chest was performed with 100 mL Omnipaque-350 intravenous contrast. Additional 3D reconstructions utilizing coronal maximum intensity projection (MIP) were performed. Automated exposure control and iterative reconstruction technique were employed. The dose-length product was 151.66 mGy-cm. COMPARISON: 08/02/2024 and 12/08/2023 FINDINGS: No pulmonary embolism. Severe emphysema with chronic partially calcified by apical pleural-parenchymal scarring. There is been some progression of low-attenuation fluid/mucus within several of the cystic airspace in the right upper lobe which are new since 12/08/2023 consistent with pneumonia. Unchanged chronic reticulonodular opacities with a few small calcified nodules in the basilar right middle lobe and lingula consistent with sequela of chronic pneumonia. No pleural effusion. Heart size is normal. Atherosclerotic coronary artery calcific lesion. No pericardial effusion. Thoracic aorta is normal in caliber. No pathologically enlarged thoracic lymphadenopathy. 1 cm cyst and 13 x 5 x 3 mm nonobstructing stone at the upper pole the left kidney. There is scattered cortical scarring in the right kidney consistent with sequela of prior infection or infarction. Additional 2 mm nonobstructing stone at the lower pole of the right kidney. Mild thoracic spondylosis with chronic minimal anterior wedging of a few mid and lower thoracic vertebral bodies. Spinal stimulator leads which terminate at the posterior central canal at the level of T6-T7. IMPRESSION: 1. No pulmonary embolism. 2. Severe emphysema with right upper lobe pneumonia. 3. Bilateral nonobstructing nephrolithiasis. --------- 10/27/2022 EXAMINATION: CT lung screening INDICATION: Personal history of nicotine dependence, current smoker with 50 pack year history COMPARISON: 10/25/2021 FINDINGS: There is severe emphysema. There is a stable 5 mm nodule of the left upper lobe. There is stable 3 mm nodule of the right upper lobe. The lungs are free of acute opacities. No pleural effusion or pneumothorax. There is scarring and calcification of the lung apices. Calcified coronary artery atherosclerosis is noted. No pathologically enlarged thoracic lymph nodes are identified. The heart size is normal. There is mild thoracic spondylosis. IMPRESSION: 1. Lung-RADS category 2: Benign appearance or behavior. Continue annual screening with noncontrast low-dose chest CT in 12 months. 12/19/2019 PULMONARY FUNCTION TESTS Results are reliable and reproducible. Spirometry: FEV1 is 60%, moderately decreased, 1.49 L. FVC is 90% normal. Decreased FEV1% consistent with airflow obstruction. . There is a 14% increase in FEV1 with bronchodilator, 200 ml, which is significant. Lung volumes: Total lung capacity 107% normal. RV/TLC increased 48% and consistent with air trapping. Airway resistance increased 336%. Diffusion: DLCO moderately reduced 35%. Flow volume loop: Scooping of the expiratory limb. IMPRESSION: Moderate obstructive ventilatory impairment with good response to bronchodilator, air trapping, moderate diffusion impairment. This is consistent with COPD. 11/23/2019: Alpha 1 anti trypsin genotype MM. ?Alpha 1 anti trypsin level 160, normal. Review of Systems Constitutional: Constitutional: Reports no additional constitutional complaints Eyes: Eyes: Reports no additional eye complaints ENT: Reports system reviewed and no additional complaints, except as documented Cardiovascular: Cardiovascular: Reports no additional cardiovascular complaints Respiratory: Respiratory: Reports no additional respiratory complaints Gastrointestinal: Gastrointestinal: Reports no additional gastrointestinal complaints Musculoskeletal: Musculoskeletal: Reports no additional musculoskeletal complaints Neurologic: Reports system reviewed and no additional complaints, except as documented Psychiatric: Psychiatric: Reports no additional psychiatric complaints Endocrine: Endocrine: Reports no additional endocrine complaints Hematologic/Lymphatic: Hematologic/Lymphatic: Reports no additional hematologic/lymphatic complaints Allergic/Immunologic: Allergic/Immunologic: Reports no additional allergic/immunologic complaints Exam Const: General: cooperative and comfortable Orientation/consciousness: orie nted to person, oriented to place and oriented to time HENMT: Head: normal to inspection Ears: hearing grossly normal bilaterally Eyes: General: appearance normal, both eyes and all related structures Neck: Neck: normal visual inspection Chest: Chest palpation & inspection: normal inspection of the chest Resp: Effort & Inspection: normal respiratory effort and able to speak in complete sentences Auscultation: no crackles, no rales, no rhonchi, no wheezes and diminished lung sounds Cardio: Jugular venous distension: no JVD GI: Inspection: normal to inspection Skin: General skin exam: normal color Neuro: General: oriented to person, oriented to place and oriented to time Extrem: General: normal to inspection and no edema Psych: Appearance: grossly normal Objective Data Vital Signs Vital Signs: Vital Signs - 24 hr 12/06/24 12:00 12/06/24 14:00 12/06/24 16:00 Temperature 36.2 C L Pulse Rate 99 91 105 H Respiratory Rate 18 Blood Pressure 111/43 L Pulse Oximetry 93 Oxygen Delivery Oxygen Flow Rate 12/06/24 20:00 12/06/24 20:00 12/06/24 20:23 Temperature Pulse Rate 55 L 98 72 Respiratory Rate 19 18 Blood Pressure Pulse Oximetry 95 Oxygen Delivery Nasal Cannula Oxygen Flow Rate 2 12/06/24 20:37 12/06/24 20:38 12/06/24 21:01 Temperature 36.2 C L Pulse Rate 78 55 L Respiratory Rate 18 19 Blood Pressure 102/43 L Pulse Oximetry 96 95 Oxygen Delivery Nasal Cannula Oxygen Flow Rate 2 12/07/24 00:00 12/07/24 04:00 12/07/24 04:00 Temperature Pulse Rate 100 83 Respiratory Rate Blood Pressure Pulse Oximetry 100 Oxygen Delivery Nasal Cannula Oxygen Flow Rate 2 12/07/24 08:00 12/07/24 08:00 Temperature Pulse Rate 78 78 Respiratory Rate 26 H Blood Pressure 118/63 Pulse Oximetry 99 99 Oxygen Delivery Nasal Cannula Oxygen Flow Rate 2 Intake/Output Intake/Output: Intake & Output 12/04/24 12/05/24 12/06/24 12/07/24 23:59 23:59 23:59 23:59 Intake Total 2190 560 2117 50 Output Total 50 Balance 2140 560 2117 50 Meds/Results Medications: Active Medications Generic Name Dose Route Start Last Admin Trade Name Freq PRN Reason Stop Dose Admin Acetaminophen 650 mg 12/04/24 13:40 12/06/24 21:01 Acetaminophen 325 Mg Tablet PO 650 mg Q6H PRN Administration Mild Pain (1-3) or Fever Acetylcysteine 200 mg 12/05/24 14:00 12/07/24 02:41 Acetylcysteine 20% Inhal Soln 800 Mg/4 Ml Vial INHALATION Not Given Q6HRT ALBERTA Azithromycin 500 mg 12/05/24 14:45 12/07/24 08:47 Azithromycin 500 Mg Tablet PO 500 mg DAILY ALBERTA Administration Enoxaparin Sodium 40 mg 12/05/24 09:00 12/06/24 08:43 Enoxaparin 40 Mg/0.4 Ml Syringe SUB-Q 40 mg DAILY ALBERTA Administration Guaifenesin 1,200 mg 12/05/24 09:35 12/07/24 08:47 Guaifenesin 12 Hr 600 Mg Tabcr PO 1,200 mg Q12HR ALBERTA Administration Ipratropium [place] 0.5 mg 12/07/24 14:00 Ipratropium Br 0.02% Inh Soln 0.5 Mg/2.5 Ml Vial INHALATION Q6HRT ALBERTA Lovastatin 40 mg 12/06/24 21:00 12/06/24 20:57 Lovastatin 20 Mg Tablet PO 40 mg HS ALBERTA Administration Moxifloxacin HCl 400 mg 12/05/24 14:45 12/07/24 09:01 Moxifloxacin Hcl 400 Mg Tablet PO 400 mg QAM ALBERTA Administration Ondansetron HCl 4 mg 12/04/24 13:40 12/06/24 12:39 Ondansetron Hcl Odt 4 Mg Tablet PO 4 mg Q6H PRN Administration Nausea And Vomiting Rifampin 600 mg 12/05/24 14:45 12/07/24 06:18 Rifampin 300 Mg Capsule PO 600 mg DAILY@0600 [facility] INCLUDES THE [facility] Administration Sodium Chloride 6 ml 12/06/24 05:00 12/07/24 04:16 Sodium Chlor 3% 15 Ml Neb (Respiratory Therapy) INHALATION 12/08/24 05:01 Not Given DAILY@0500 COUNT INCLUDES THE [facility] Solifenacin 5 mg 12/06/24 21:00 12/06/24 20:57 Solifenacin 5 Mg Tablet PO 5 mg HS ALBERTA Administration Radiology Results: ITS Impressions Head CT 12/04/24 09:15 IMPRESSION: 1. 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 No acute intracranial process. 2. Age-related changes including mild diffuse volume loss and mild scattered white matter hypoattenuation consistent with chronic small vessel ischemic disease. Chest/Abdomen/Pelvis CT 12/04/24 09:20 IMPRESSION: 1. Severe emphysema with multifocal pneumonia in the right lung most prominent in the upper lobe with some interval progression in the right lower lobe. 2. Unchanged 2.7 x 1.5 cm subtle mass in the right hepatic lobe consistent with biopsy-proven hepatocellular carcinoma. 3. Bilateral nonobstructing nephrolithiasis. 4. Large amount of stool throughout the colon suggest diarrhea. Chest X-Ray 12/07/24 09:09 Impression: 1: Stable complex right upper lobe pneumonia with adjacent loculated effusion/pleural thickening and tenting of the right hilum. Findings compatible with pneumonia, possibly atypical. 2: Slightly improved right upper lobe infiltrates compared with 12/04/2024, possibly resolving pneumonia. Labs Labs: Laboratory Results - last 24 hr 12/06/24 12/07/24 11:16 02:57 WBC 6.6 RBC 3.50 L Hgb 10.1 L Hct 32.6 L MCV 93.1 MCH 28.9 MCHC 31.0 L RDW 13.2 Plt Count 220 MPV 9.5 Immature Gran % (Auto) 0.8 H Neut % (Auto) 70.9 Lymph % (Auto) 10.2 L [place] % (Auto) 11.5 H Eos % (Auto) 6.1 H Baso % (Auto) 0.5 Lymph # (Auto) 0.67 L [place] # (Auto) 0.8 H Eos # (Auto) 0.4 H Baso # (Auto) 0.0 Abs Immat Gran (auto) 0.05 H Absolute Neuts (auto) 4.7 Absolute Nucleated RBC 0.000 Nucleated RBC % 0.0 Sodium 133 L Potassium 3.2 L Chloride 98 Carbon Dioxide 28 Anion Gap 7 BUN 20 H Creatinine 0.60 L Estim Creat Clear Calc 50 Estimated GFR > 60 Glucose 118 H Calcium 9.2 Phosphorus 4.3 Magnesium 1.9 Total Bilirubin 1.4 H AST 31 ALT 21 Alkaline Phosphatase 143 H Troponin I 0.024 Total Protein 7.0 Albumin 3.3 L C. difficile (PCR) Negative
[2024-12-07] MEDS: ACETAMINOPHEN 325 MG TABLET 650 MG PO ×2 (11:26→20:02)
--- NOTE | 2024-12-07 13:01 | PM.IMPN ---
Progress Note: A&P Assessment and Plan (1) Generalized weakness: Code(s): R53.1 - Weakness Status: Acute Assessment and Plan: Chief complaint on admission. Multifactorial. Continue PT and OT. Ambulate with assistance (2) Mycobacterial disease, pulmonary: Code(s): A31.0 - Pulmonary mycobacterial infection Status: Acute Assessment and Plan: Progressive cavitary pneumonia. Bronchoscopy performed on 11/24/2024 with positive AFB smear. Infectious disease consulted, their recommendations have been appreciated. Initial antibiotics cefepime doxycycline and vancomycin have been discontinued. -On 12/05/2024 antibiotics were switched to azithromycin, moxifloxacin, rifampin. Airborne isolation. Per Infectious Disease TB PCR probe could not be processed on previous sputum culture. We have sputum induction x3. First sample processing from 12/06/2024. (3) COPD (chronic obstructive pulmonary disease): Code(s): J44.9 - Chronic obstructive pulmonary disease, unspecified Status: Acute Assessment and Plan: 12/06/2024 overnight oximetry on 3 L completed. Pulmonology recommendations noted. Continue DuoNebs q.6 hours, guaifenesin 1200 mg p.o. b.i.d. and Mucomyst nebulizers q.6 hours. This appears to work well, her shortness of breath is improved, junky airway secretions have improved. -add Cinthia Swartz (4) Chronic respiratory failure with hypoxia and hypercapnia: Code(s): J96.11 - Chronic respiratory failure with hypoxia; J96.12 - Chronic respiratory failure with hypercapnia Status: Chronic Assessment and Plan: Currently on 2-3 L nasal cannula which she normally uses at home (5) Diarrhea: Qualifiers: Diarrhea type: unspecified type Qualified Code(s): R19.7 - Diarrhea, unspecified Code(s): R19.7 - Diarrhea, unspecified Status: Acute Assessment and Plan: Has only had 1 bowel movement since admission, loose stool on 12/06/2024, Stool culture pending -: C diff PCR negative (6) Hepatocellular carcinoma: Code(s): C22.0 - Liver cell carcinoma Status: Acute Assessment and Plan: 11/03/2024: Needle biopsy of a liver demonstrated hepatocellular carcinoma. Patient is followed by Oncology with an ultimate plan of her getting strong enough to tolerate outpatient chemotherapy. 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 This is been ongoing for the past 8 months. Worsening shortness of breath as well. Due to the weakness he has had an increase in falls with 3 the night [employer]. Recent admission at [facility], transferred on 11/23/2024 to [facility] for high-level pulmonary care where she received extensive pulmonary toileting and was treated for suspected pneumonia, she reports she was discharged on 2 antibiotics. Admits to having watery bowel movements which she had at [facility] in November as well. On presentation WBC 11.4, neutrophilia, serum creatinine 1.07, procalcitonin 0.2, urinalysis with many squamous cells, nasal MRSA PCR negative, head CT with chronic cystic encephalomalacia in the right parietal lobe, age-related changes including mild diffuse volume loss and mild scattered white matter hypoattenuation consistent with chronic small-vessel ischemic disease. CT chest abdomen pelvis without contrast demonstrating severe emphysema with multifocal pneumonia on the right lung most prominent in the upper lobe with some interval progression in the right lower lobe, unchanged 2.7 x 1.5 cm subtle mass in the right hepatic lobe consistent with biopsy-proven hepatocellular carcinoma, bilateral nonobstructing nephrolithiasis, large amount of stool throughout the colon suggesting diarrhea. ----- Code status: DNR. DVT prophylaxis: Lovenox 40 mg subQ q.a.m. on hold starting 12/07/2024 due to hemoptysis. Diet: Heart healthy with supplements PT/OT to evaluate, Ambulate with assistance. Prior to admission the patient lives at home and uses a cane or walker for daily activities. Subjective Date/time seen: 12/07/24 13:01 Interval history: Patient being seen for hospitalist group 69-year-old female admitted on 12/05/2024 with generalized weakness, pneumonia, found to have right upper lobe consolidation with cavitary lung nodules. Hepatocellular cancer on liver biopsy. Patient seen and examined for the hospitalist group. Remains on 2 L nasal cannula (her home oxygen requirement) with adequate O2 sats. Complains of cough with clear sputum. Denies any shortness of breath, abdominal pain, nausea, vomiting. Patient denies any chest pain. Urine output has been adequate, afebrile and hemodynamically stable. Patient was transferred to IMU status overnight due to AFib RVR, not resolve with having bowel movement and before she could be started on amiodarone infusion Review of Systems Review of Systems: All systems reviewed & are unremarkable except as noted in HPI and below Exam Narrative: General: Pleasant female in no acute distress HEENT:? Pupils equal and reactive, sclera is clear Neck:? Some Respiratory:? Coarse breath sounds an upper and lower regions of the right lung, adequate air entry, no wheezing Cardiac:? S1-S2 is normal, regular rate and rhythm Abdomen:? Soft, nontender, nondistended, normoactive bowel sounds Extremities:? No edema, palpable pedal pulses Neuro:? Patient is awake, alert, oriented, nonfocal Skin:? Warm and dry, no lesions noted Psych:? Normal mentation and affect Objective Data Vital Signs Vital Signs: Vital Signs - 24 hr 12/06/24 14:00 12/06/24 16:00 12/06/24 20:00 Temperature 97.1 F L Pulse Rate 91 105 H 55 L Respiratory Rate 18 19 Blood Pressure 111/43 L Pulse Oximetry 93 95 Oxygen Delivery Nasal Cannula Oxygen Flow Rate 2 12/06/24 20:00 12/06/24 20:23 12/06/24 20:37 Temperature Pulse Rate 98 72 78 Respiratory Rate 18 18 Blood Pressure Pulse Oximetry Oxygen Delivery Oxygen Flow Rate 12/06/24 20:38 12/06/24 21:01 12/07/24 00:00 Temperature 97.1 F L Pulse Rate 55 L 100 Respiratory Rate 19 Blood Pressure 102/43 L Pulse Oximetry 96 95 Oxygen Delivery Nasal Cannula Oxygen Flow Rate 2 12/07/24 04:00 12/07/24 04:00 12/07/24 08:00 Temperature Pulse Rate 83 78 Respiratory Rate 26 H Blood Pressure 118/63 Pulse Oximetry 100 99 Oxygen Delivery Nasal Cannula Oxygen Flow Rate 2 12/07/24 08:00 12/07/24 11:25 12/07/24 12:00 Temperature 97.8 F Pulse Rate 78 90 82 Respiratory Rate 22 H 21 H Blood Pressure 118/63 113/52 L Pulse Oximetry 99 94 96 Oxygen Delivery Nasal Cannula Oxygen Flow Rate 2 Intake/Output Intake/Output: Intake & Output 12/04/24 12/05/24 12/06/24 12/07/24 23:59 23:59 23:59 23:59 Intake Total 2190 560 2117 50 Output Total 50 Balance 2140 560 2117 50 Meds/Results Medications: Active Medications Generic Name Dose Route Start Last Admin Trade Name Freq PRN Reason Stop Dose Admin Acetaminophen 650 mg 12/04/24 13:40 12/07/24 11:26 Acetaminophen 325 Mg Tablet PO 650 mg Q6H PRN Administration Mild Pain (1-3) or Fever Acetylcysteine 200 mg 12/05/24 14:00 12/07/24 02:41 Acetylcysteine 20% Inhal Soln 800 Mg/4 Ml Vial INHALATION Not Given Q6HRT ALBERTA Azithromycin 500 mg 12/05/24 14:45 12/07/24 08:47 Azithromycin 500 Mg Tablet PO 500 mg DAILY ALBERTA Administration Enoxaparin Sodium 40 mg 12/05/24 09:00 12/06/24 08:43 Enoxaparin 40 Mg/0.4 Ml Syringe SUB-Q 40 mg DAILY ALBERTA Administration Guaifenesin 1,200 mg 12/05/24 09:35 12/07/24 08:47 Guaifenesin 12 Hr 600 Mg Tabcr PO 1,200 mg Q12HR ALBERTA Administration Ipratropium [place] 0.5 mg 12/07/24 14:00 Ipratropium Br 0.02% Inh Soln 0.5 Mg/2.5 Ml Vial INHALATION Q6HRT ALBERTA Lovastatin 40 mg 12/06/24 21:00 12/06/24 20:57 Lovastatin 20 Mg Tablet PO 40 mg HS ALBERTA Administration Moxifloxacin HCl 400 mg 12/05/24 14:45 12/07/24 09:01 Moxifloxacin Hcl 400 Mg Tablet PO 400 mg QAM ALBERTA Administration Ondansetron HCl 4 mg 12/04/24 13:40 12/06/24 12:39 Ondansetron Hcl Odt 4 Mg Tablet PO 4 mg Q6H PRN Administration Nausea And Vomiting Rifampin 600 mg 12/05/24 14:45 12/07/24 06:18 Rifampin 300 Mg Capsule PO 600 mg DAILY@0600 [facility] Administration Sodium Chloride 6 ml 12/06/24 05:00 12/07/24 04:16 Sodium Chlor 3% 15 Ml Neb (Respiratory Therapy) INHALATION 12/08/24 05:01 Not Given DAILY@0500 [facility] Solifenacin 5 mg 12/06/24 21:00 12/06/24 20:57 Solifenacin 5 Mg Tablet PO 5 mg HS ALBERTA Administration Radiology Results: ITS Impressions Head CT 12/04/24 09:15 IMPRESSION: 1. 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 No acute intracranial process. 2. Age-related changes including mild diffuse volume loss and mild scattered white matter hypoattenuation consistent with chronic small vessel ischemic disease. Chest/Abdomen/Pelvis CT 12/04/24 09:20 IMPRESSION: 1. Severe emphysema with multifocal pneumonia in the right lung most prominent in the upper lobe with some interval progression in the right lower lobe. 2. Unchanged 2.7 x 1.5 cm subtle mass in the right hepatic lobe consistent with biopsy-proven hepatocellular carcinoma. 3. Bilateral nonobstructing nephrolithiasis. 4. Large amount of stool throughout the colon suggest diarrhea. Chest X-Ray 12/07/24 09:09 Impression: 1: Stable complex right upper lobe pneumonia with adjacent loculated effusion/pleural thickening and tenting of the right hilum. Findings compatible with pneumonia, possibly atypical. 2: Slightly improved right upper lobe infiltrates compared with 12/04/2024, possibly resolving pneumonia. Labs Labs: Laboratory Results - last 24 hr 12/06/24 12/07/24 11:16 02:57 WBC 6.6 RBC 3.50 L Hgb 10.1 L Hct 32.6 L MCV 93.1 MCH 28.9 MCHC 31.0 L RDW 13.2 Plt Count 220 MPV 9.5 Immature Gran % (Auto) 0.8 H Neut % (Auto) 70.9 Lymph % (Auto) 10.2 L [place] % (Auto) 11.5 H Eos % (Auto) 6.1 H Baso % (Auto) 0.5 Lymph # (Auto) 0.67 L [place] # (Auto) 0.8 H Eos # (Auto) 0.4 H Baso # (Auto) 0.0 Abs Immat Gran (auto) 0.05 H Absolute Neuts (auto) 4.7 Absolute Nucleated RBC 0.000 Nucleated RBC % 0.0 Sodium 133 L Potassium 3.2 L Chloride 98 Carbon Dioxide 28 Anion Gap 7 BUN 20 H Creatinine 0.60 L Estim Creat Clear Calc 50 Estimated GFR > 60 Glucose 118 H Calcium 9.2 Phosphorus 4.3 Magnesium 1.9 Total Bilirubin 1.4 H AST 31 ALT 21 Alkaline Phosphatase 143 H Troponin I 0.024 Total Protein 7.0 Albumin 3.3 L C. difficile (PCR) Negative Quality VTE Prophylaxis VTE prophylaxis: pharmacologic ordered
[2024-12-07] MEDS: LOPERAMIDE HCL 2 MG CAPSULE PO (14:00)
--- NOTE | 2024-12-07 14:22 | WPDINFPN2 ---
Progress Note: A&P Assessment and Plan (1) Mycobacterial disease, pulmonary: Code(s): A31.0 - Pulmonary mycobacterial infection Status: Acute Plan # Persistent, progressive cavitary pneumonia. Initial workup negative for cancer on bronchoscopy specimens. With positive AFB smear. On bronchoscopy. 11/22/2024. Low pretest probability for TB based on risk factors, including negative quant gold. Atypical mycobacterial disease versus colonization. Consideration for MAC based on most likely statistically followed by m. abscesses and other atypical mycobacterial process. TB not completely rule out. Primary lung cancer not completely ruled out. Secondarily infected inflammatory malignant process possible. No endobronchial lesions noted on bronchoscopy. Underlying COPD, oxygen dependent with active tobacco use up until recently. -No TB PCR probe could be done on 11/22 specimen. Negative probe would make active TB much less likely. -Due to fairly rapid progression, we will give empiric therapy, based on MAC historical susceptibilities. -Will need to await on formal speciation and susceptibilities in the setting of other atypical mycobacteria. #Newly diagnosed hepatocellular carcinoma. Recent diagnosis. No chemo yet. #Diarrhea. r/o C diff----PCR negative Plan: Maintain azithromycin, moxifloxacin plus rifampin. Reviewed QTc. no issues. d/w POA--Romi. d/w ICU staff and Dr Yrn HIGGINBOTHAM for imodium d/c contact isolation AFB x 3--can be every 8 hours. 1 more sample Maintain airborne isolation although low likelihood TB. Will discuss options if she goes home versus skilled setting as far as any precautions. She is home, I do not believe she would need to pursue any isolation precautions. this consult was done with telemedicine with audio and visual aids via a HIPPA protected interface. Patient consented to telemedicine. I performed a telemedicine visit in my office in [facility] with the patient who was at [facility] in [place], [place] Subjective Date/time seen: 12/07/24 14:22 Interval history: Went into afib overnight. transfer to ICU. out of afib after BM. Still with loose stools. C diff pcr negative. on 2L. no worsening resp distress. Exam Narrative: examined via the aid of audio and visual telemedicine. In ICU. on nasal cannula. Nonlabored breathing. Respiratory rate approximately 20. Alert oriented x3. No rash. No icterus. No jaundice obvious from presentor perspective at bedside or my visual exam on video. Objective Data Vital Signs Vital Signs: Vital Signs - 24 hr 12/06/24 16:00 12/06/24 20:00 12/06/24 20:00 Temperature Pulse Rate 105 H 55 L 98 Respiratory Rate 19 Blood Pressure Pulse Oximetry 95 Oxygen Delivery Nasal Cannula Oxygen Flow Rate 2 12/06/24 20:23 12/06/24 20:37 12/06/24 20:38 Temperature Pulse Rate 72 78 Respiratory Rate 18 18 Blood Pressure Pulse Oximetry 96 Oxygen Delivery Nasal Cannula Oxygen Flow Rate 2 12/06/24 21:01 12/07/24 00:00 12/07/24 04:00 Temperature 36.2 C L Pulse Rate 55 L 100 Respiratory Rate 19 Blood Pressure 102/43 L Pulse Oximetry 95 100 Oxygen Delivery Nasal Cannula Oxygen Flow Rate 2 12/07/24 04:00 12/07/24 08:00 12/07/24 08:00 Temperature Pulse Rate 83 78 78 Respiratory Rate 26 H Blood Pressure 118/63 Pulse Oximetry 99 99 Oxygen Delivery Nasal Cannula Oxygen Flow Rate 2 12/07/24 08:00 12/07/24 10:00 12/07/24 10:10 Temperature Pulse Rate 77 82 86 Respiratory Rate 20 20 Blood Pressure Pulse Oximetry Oxygen Delivery Oxygen Flow Rate 12/07/24 11:25 12/07/24 12:00 12/07/24 12:00 Temperature 36.6 C Pulse Rate 90 82 85 Respiratory Rate 22 H 21 H Blood Pressure 118/63 113/52 L Pulse Oximetry 94 96 96 Oxygen Delivery Nasal Cannula Oxygen Flow Rate 2 12/07/24 12:00 Temperature Pulse Rate 86 Respiratory Rate Blood Pressure Pulse Oximetry Oxygen Delivery Oxygen Flow Rate Intake/Output Intake/Output: Intake & Output 12/04/24 12/05/24 12/06/24 12/07/24 23:59 23:59 23:59 23:59 Intake Total 2190 560 2117 410 Output Total 50 Balance 2140 560 2117 410 Meds/Results Medications: Active Medications Generic Name Dose Route Start Last Admin Trade Name Freq PRN Reason Stop Dose Admin Acetaminophen 650 mg 12/04/24 13:40 12/07/24 11:26 Acetaminophen 325 Mg Tablet PO 650 mg Q6H PRN Administration Mild Pain (1-3) or Fever Acetylcysteine 200 mg 12/05/24 14:00 12/07/24 10:00 Acetylcysteine 20% Inhal Soln 800 Mg/4 Ml Vial INHALATION 200 mg Q6HRT ALBERTA Administration Azithromycin 500 mg 12/05/24 14:45 12/07/24 08:47 Azithromycin 500 Mg Tablet PO 500 mg DAILY ALBERTA Administration Benzonatate 100 mg 12/07/24 17:00 Benzonatate 100 Mg Capsule PO 12/10/24 16:59 TID ALBERTA Enoxaparin Sodium 40 mg 12/05/24 09:00 12/06/24 08:43 Enoxaparin 40 Mg/0.4 Ml Syringe SUB-Q 40 mg DAILY ALBERTA Administration Guaifenesin 1,200 mg 12/05/24 09:35 12/07/24 08:47 Guaifenesin 12 Hr 600 Mg Tabcr PO 1,200 mg Q12HR [facility] Administration Ipratropium [place] 0.5 mg 12/07/24 14:00 Ipratropium Br 0.02% Inh Soln 0.5 Mg/2.5 Ml Vial INHALATION Q6HRT [facility] Loperamide HCl 2 mg 12/07/24 13:27 12/07/24 14:00 Loperamide Hcl 2 Mg Capsule PO 2 mg PRN PRN Administration Diarrhea Lovastatin 40 mg 12/06/24 21:00 12/06/24 20:57 Lovastatin 20 Mg Tablet PO 40 mg HS [facility] Administration Moxifloxacin HCl 400 mg 12/05/24 14:45 12/07/24 09:01 Moxifloxacin Hcl 400 Mg Tablet PO 400 mg QAM ALBERTA Administration Ondansetron HCl 4 mg 12/04/24 13:40 12/06/24 12:39 Ondansetron Hcl Odt 4 Mg Tablet PO 4 mg Q6H PRN Administration Nausea And Vomiting Rifampin 600 mg 12/05/24 14:45 12/07/24 06:18 Rifampin 300 Mg Capsule PO 600 mg DAILY@0600 [facility] Administration Sodium Chloride 6 ml 12/06/24 05:00 12/07/24 04:16 Sodium Chlor 3% 15 Ml Neb (Respiratory Therapy) INHALATION 12/08/24 05:01 Not Given DAILY@0500 [facility] Solifenacin 5 mg 12/06/24 21:00 12/06/24 20:57 Solifenacin 5 Mg Tablet PO 5 mg HS [facility] Administration Radiology Results: ITS Impressions Head CT 12/04/24 09:15 IMPRESSION: 1. 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 No acute intracranial process. 2. Age-related changes including mild diffuse volume loss and mild scattered white matter hypoattenuation consistent with chronic small vessel ischemic disease. Chest/Abdomen/Pelvis CT 12/04/24 09:20 IMPRESSION: 1. Severe emphysema with multifocal pneumonia in the right lung most prominent in the upper lobe with some interval progression in the right lower lobe. 2. Unchanged 2.7 x 1.5 cm subtle mass in the right hepatic lobe consistent with biopsy-proven hepatocellular carcinoma. 3. Bilateral nonobstructing nephrolithiasis. 4. Large amount of stool throughout the colon suggest diarrhea. Chest X-Ray 12/07/24 09:09 Impression: 1: Stable complex right upper lobe pneumonia with adjacent loculated effusion/pleural thickening and tenting of the right hilum. Findings compatible with pneumonia, possibly atypical. 2: Slightly improved right upper lobe infiltrates compared with 12/04/2024, possibly resolving pneumonia. Labs Labs: Laboratory Results - last 24 hr 12/06/24 12/07/24 11:16 02:57 WBC 6.6 RBC 3.50 L Hgb 10.1 L Hct 32.6 L MCV 93.1 MCH 28.9 MCHC 31.0 L RDW 13.2 Plt Count 220 MPV 9.5 Immature Gran % (Auto) 0.8 H Neut % (Auto) 70.9 Lymph % (Auto) 10.2 L [place] % (Auto) 11.5 H Eos % (Auto) 6.1 H Baso % (Auto) 0.5 Lymph # (Auto) 0.67 L [place] # (Auto) 0.8 H Eos # (Auto) 0.4 H Baso # (Auto) 0.0 Abs Immat Gran (auto) 0.05 H Absolute Neuts (auto) 4.7 Absolute Nucleated RBC 0.000 Nucleated RBC % 0.0 Sodium 133 L Potassium 3.2 L Chloride 98 Carbon Dioxide 28 Anion Gap 7 BUN 20 H Creatinine 0.60 L Estim Creat Clear Calc 50 Estimated GFR > 60 Glucose 118 H Calcium 9.2 Phosphorus 4.3 Magnesium 1.9 Total Bilirubin 1.4 H AST 31 ALT 21 Alkaline Phosphatase 143 H Troponin I 0.024 Total Protein 7.0 Albumin 3.3 L C. difficile (PCR) Negative
[2024-12-07] MEDS: IPRATROPIUM BR 0.02% INH SOLN 0.5 MG/2.5 ML VIAL INHALATION ×2 (14:54→20:30)
[2024-12-07] MEDS: BENZONATATE 100 MG CAPSULE PO (17:24)
[2024-12-07] MEDS: SOLIFENACIN 5 MG TABLET PO (20:03)
[2024-12-07] MEDS: LOVASTATIN 20 MG TABLET 40 MG PO (20:03)
--- NOTE | 2024-12-07 20:14 | ECG_ITS ---
Test Date: 2024-12-07 20:22:41 Measurements Intervals [place] Rate: 89 P: 75 CT: 122 QRS: 54 QRSD: 85 T: 67 QT: 370 QTc: 451 Interpretive Statements SINUS RHYTHM POSSIBLE LEFT ATRIAL ENLARGEMENT CONSIDER RIGHT VENTRICULAR CONDUCTION DELAY BASELINE ARTIFACT- I, II, III, AVR, AVL, AVF, V1-V6 BORDERLINE ECG Compared to ECG 12/07/2024 02:28:54 Atrial fibrillation no longer present Electronically Signed On 12-08-2024 06:27:[address] D.O.
[2024-12-08] VITALS (12 sets, daily range): BP systolic 129–141; BP diastolic 58–69; PULSE 80–99; RESP 20–23; TEMP 36.3–36.5; O2SAT 93–100
[2024-12-08] MEDS: ACETYLCYSTEINE 20% INHAL SOLN 800 MG/4 ML VIAL 200 MG INHALATION ×2 (02:09→08:31)
[2024-12-08] MEDS: IPRATROPIUM BR 0.02% INH SOLN 0.5 MG/2.5 ML VIAL INHALATION ×2 (02:09→08:31)
[2024-12-08 04:18] LABS: Hematocrit 31.6 % (37.0-47.0); Hemoglobin 9.6 g/dL (12.0-15.0); Immature Granulocyte Percent A 0.7 % (0-0.5); Lymphocytes Absolute Auto 0.61 K/mm3 (0.9-3.2); Mean Corpuscular HGB Conc 30.4 g/dl (32-36); Mean Corpuscular Hemoglobin 28.9 pg (26-34); Mean Corpuscular Volume 95.2 fl (80-100); Nucleated Red Blood Cells Absolute Auto 0.000 K/mm3 (0.0-0.012); Nucleated Red Blood Cells Perc 0.0 % (0.0-0.2); Platelet Count Result 225 k/mm3 (150-375); Red Blood Count 3.32 M/mm3 (4.2-5.4); White Blood Count 7.5 K/mm3 (4.5-10.0)
[2024-12-08 04:45] LABS: Anion Gap 7 mmol/L (4-12); Blood Urea Nitrogen 11 mg/dL (7-17); Calcium 8.4 mg/dL (8.4-10.2); Carbon Dioxide 25 mmol/L (22-30); Chloride 105 mmol/L (98-107); Estimated CRCL calculation 52 ml/min; Estimated Glomerular Filt Rate > 60; Glucose 96 mg/dL (65-110); Magnesium 1.7 mg/dL (1.6-2.3); Potassium 4.1 mmol/L (3.4-5.0); Sodium 137 mmol/L (137-145)
[2024-12-08] MEDS: BENZONATATE 100 MG CAPSULE PO (08:39)
[2024-12-08] MEDS: AZITHROMYCIN 500 MG TABLET PO (08:39)
[2024-12-08] MEDS: MOXIFLOXACIN HCL 400 MG TABLET PO (08:40)
[2024-12-08] MEDS: guaiFENesin 12 HR 600 MG TABCR 1200 MG PO (08:40)
[2024-12-08] MEDS: LOPERAMIDE HCL 2 MG CAPSULE PO (09:07)
--- NOTE | 2024-12-08 10:03 | PM.PNPUL ---
Progress Note: A&P Assessment and Plan (1) Mycobacterial disease, pulmonary: Code(s): A31.0 - Pulmonary mycobacterial infection Status: Acute Assessment and Plan: 10/21/2024: CT scan of the chest reviewed with radiologist and compared to 10/2023, 08/02/2024, 08/31/2024 with worsening right upper lobe low-attenuation lung nodule consistent with atelectasis, mucous retention or pneumonia. 11/01/2024 through 11/07/2024: Admitted to [facility] with a CT scan chest now demonstrating larger right upper lobe consolidation with cavitary lung nodules. Liver biopsy returned for hepatocellular. plan per oncology was for patient to get strong enough to undergo outpatient chemotherapy. 11/03/2024: QuantiFERON gold negative. serologies on 11/01/2024 anti CCP less than 16 11/19/2024 through 11/23/2024: Admitted to [facility] with shortness of breath. CT scan of the chest with worsening right upper lobe infiltrate and progressive cavitary lesions. Treated with pulmonary hygiene, antibiotics, oxygen. 11/22/2024 underwent bronchoscopy to assess for endobronchial lesion or cancer and there was no obstructing mass. Secretions were removed. Biopsies were obtained and were negative for malignancy. Given patient's lack of response she was transferred to [facility] for higher level of care pulmonary, infectious disease and oncology evaluation . Dr. Leonela samson. Transferred on 11/23/2024. 11/24/24: bronchial wash: AFB smear 1+ positive with 4-36 AFB per 1000 field at 400 X. 12/04/2024: Apparently discharged from [facility] on 11/30/24 on 2 antibiotics, Perhaps linezolid. does not sound like any additional procedures were obtained. Presented with weakness and recent falls. She had bilateral wheezes. Room air saturations 97%. 2 L nasal cannula saturation 94%. Temperature was 101.4?. White blood cell count 11.4, creatinine 1.07. Procalcitonin 0.2. MRSA nasal swab PCR negative CT chest abdomen pelvis with unchanged right hepatic lobe carcinoma, severe emphysema worsening right upper lobe consolidations with some new progression in the right lower lobe. Empirically started on cefepime, doxycycline and vancomycin. 12/05/24: Overall the patient tells me she is the same as yesterday. She has rest shortness of breath and dyspnea on exertion. She has cough with no phlegm production. Currently she is on 3 L nasal cannula saturations 94%. White blood cell count 11.2, creatinine 0.68. BNP 1580. procalcitonin increased from 0.2 on 12/04/2024 to 0.7 today. Yesterday she was 2.14 L positive. We etiology of right upper lobe and lower lobe dense consolidations with cavity in the setting of COPD and bronchial wash with AFB smear positive and QuantiFERON gold negative suggests patient has non mycobacterial lung disease. Plan: I have spoken to the hospitalist and he will call the Infectious Disease team at [facility] to see if they are comfortable consult in on this patient. If they are not patient should be transferred to [facility] for Infectious Disease consultation. Patient currently on vancomycin, cefepime and doxycycline for possible bacterial infection and I think this is unlikely given her mild hypoxemia, mild leukocytosis and procalcitonin 0.7. Will defer to Infectious Disease. I will order induced sputum for AFB q.a.m. a.m. x3 days. Seen by infectious disease consult later in the day and started on azithromycin, moxifloxacin and rifampin. 12/06/24: patient tells me she feels a little bit better. Her cough is looser. Her sweating episodes are less intense. Her dyspnea on exertion is the same. She had 1 episode of hemoptysis this morning. When I enter the room she was on 2 L nasal cannula saturations 97%. I decreased her to 1 L and her saturations were 92%. afebrile. White blood cell count 8.9, creatinine 0.66. Plan: Continue azithromycin, moxifloxacin and rifampin per ID. Patient with 1 episode of hemoptysis and will discontinue her low-dose aspirin and lovenox. 12/07/24: patient developed AFib with RVR last night and transferred to the ICU. Amiodarone was ordered but the patient broke to normal sinus rhythm he and did not receive amiodarone. The patient does not remember this event and says that she was sleeping and had no change in her respiratory status. Currently the patient states that she is breathing at her baseline. No hemoptysis. She did have 1 sweat last night but was afebrile. She has less cough but more phlegm production the nebulized DuoNebs and Mucomyst are helping her expectorate. Currently she is on 1 L with saturations 97%. White blood cell count 6.6, creatinine 0.6, her weight is 43 kilos. chest x-ray with continued right upper lobe consolidation and tenting with no change and possible mild improvement in the right upper lobe infiltrate. Plan: Plan: Continue azithromycin, moxifloxacin and rifampin per ID. 12/08/2024: 12/08/2024: Patient tells me she is feeling wonderful today. Better than she has in the last month. She has no shortness of breath at rest. She is producing green phlegm that is improving. When I enter the room she was on 3 L nasal cannula saturations 99%. decreased her to room air and saturations were 93%. She is afebrile. She had no cardiac arrhythmias overnight. She has no hemoptysis. White blood cell count 7.5, creatinine 0.55, she is afebrile. sputum AFB 8/5 smear negative. Sputum AFB 8 /6 and 8/7 pending. Plan: continue azithromycin, moxifloxacin and rifampin all started 12/05/24 per ID. (2) COPD (chronic obstructive pulmonary disease): Qualifiers: COPD type: unspecified COPD Qualified Code(s): J44.9 - Chronic obstructive pulmonary disease, unspecified Code(s): J44.9 - Chronic obstructive pulmonary disease, unspecified Status: Chronic Assessment and Plan: Patient with 90 pack year tobacco use, Currently smoking 5 cigarettes a day. 11/23/2019: Alpha 1 anti trypsin genotype MM. ?Alpha 1 anti trypsin level 160, normal. PFTs 12/14/2019 with an FEV1 of 1.49 L, 60% predicted, ratio 49% predicted, positive bronchodilator response, air trapping and severely decreased DLCO that remain moderately decreased when adjusted for alveolar volume. CT scan of the chest 08/31/2024 and 01/15/2021 with severe panlobular emphysema all lung hill. Chronic hypoxemic respiratory failure requiring 1 L at rest, 2 L with activity and 1 L with sleep. Chronic hypercarbic respiratory failure. maintained on Stiolto Respimat. She did not have any help with a trial of breztri as an outpatient. 08/31/2024, white blood cell count 8.1, eosinophils 3% equals 243 per micro L. Currently patient has no evidence of a COPD exacerbation. Plan: I will continue her home regimen of DuoNebs q.6 hours, will add guaifenesin 1200 mg p.o. b.i.d. and Mucomyst nebulizers q.6 hours to help with expectoration. 12/06/24: Patient with no wheezing, shortness of breath dyspnea on exertion stable Plan: I will continue DuoNebs q.6 hours, guaifenesin 1200 mg p.o. b.i.d. and Mucomyst nebulizers q.6 hours to help with expectoration. 12/07/24: Patient with AFib RVR last night plan: I will discontinue albuterol and place the patient on ipratropium nebulizers q.6 hours, continue Mucomyst nebulizers q.6 hours and guaifenesin 1200 p.o. b.i.d.. 12/08/24: Patient is feeling well today. Plan: while she is in the hospital she says she is expectorating better with the ipratropium nebulizer. I will continue this while in the hospital and discontinue Mucomyst nebulizer. I will continue guaifenesin 1200 mg p.o. b.i.d.. From a COPD perspective patient is ready to be discharged on these pulmonary medicines Stiolto Respimat 2.5-2.5 at 2 puffs q.a.m.. Rescue Albuterol 2 puffs q.4 hours p.r.n. shortness of breath or wheezing Rescue Albuterol 2.5 mg nebs q.4 hours p.r.n. shortness of breath or wheezing guaifenesin 1200 mg p.o. b.i.d. oxygen to maintain saturations 90 94% at home at rest and with activity. Last home O2 assessment was no oxygen at rest and 2 L with activity. 3 L oxygen when she naps and sleeps. Follow-up in the Pulmonary Clinic on her previously scheduled appointment on 01/04/2025 at 1:[address] Huntley, will sign off, call with questions. (3) Chronic respiratory failure with hypoxia and hypercapnia: Code(s): J96.11 - Chronic respiratory failure with hypoxia; J96.12 - Chronic respiratory failure with hypercapnia Status: Chronic Assessment and Plan: 12/05/24: Patient with chronic hypoxemic respiratory failure prescribed no oxygen at rest but she uses 2 L at rest, 2 L with activity and she is prescribed a noninvasive ventilator at night through [facility]. Patient tells me she is no longer using the noninvasive ventilator at night and would like it removed from her house. Plan: We will talk to [facility] and obtain a recent download to confirm she is not using the machine. I will perform an overnight oximetry on 3 L tonight. Later in the day obtained download from 10/01/2024 to 10/30/2024. patient is on BiPAP no rate IPAP 9, EPAP 4. Usage days total 3%. Usage days greater than or equal to 4 hours is 0. Average usage on days used is 2 hours and 18 minutes. AHI 0.4. Median leak 0.0. I interpret this download as total noncompliance, adequate pressures and low leak. 12/06/24: Patient tells me she cannot tolerate home BiPAP. Download confirms she is noncompliant. Patient had an overnight oximetry on 3 L with recording duration of 7 hours and 20 minutes, average saturation 97%, low saturation 85%, time with saturation less than or equal to 88% was 0 minutes. Oxygen desaturation index 1.0. Plan: Continue 3 L nasal cannula at night. (4) Hepatocellular carcinoma: Code(s): C22.0 - Liver cell carcinoma Status: Acute Assessment and Plan: 11/03/2024: Needle biopsy of a liver demonstrated hepatocellular carcinoma. Patient is followed by Oncology with an ultimate plan of her getting strong enough to tolerate outpatient chemotherapy. 12/05/24: plan: Patient remains debilitated. Physical therapy has been ordered. Subjective Date/time seen: 12/08/24 10:03 Interval history: 12/05/2024: This is a new pulmonary consult for pneumonia 69-year-old with a history of hypertension, hyperlipidemia, SVT, the esophageal ring status post dilation, chronic sinusitis, GOLD grade 2 group E COPD on home oxygen and NIV. Patient admitted to [facility] from 08/31/2024 through 09/07/2024 for COPD and pneumonia with hypercarbic respiratory failure. ABG on 08/02/2024 of 7.45/60/128 on 2 L nasal cannula and a blood gas on 09/06/2023 of 7.34/71/ 63 on 2 L nasal cannula.? Patient was treated for COPD and pneumonia with Levaquin, Flagyl, DuoNebs and guaifenesin.? For her hypercarbic respiratory failure she had [facility] insurance and was approved for BiPAP no rate, IPAP 9, EPAP 4 in 2 L bleed in.? This provided adequate oxygenation by overnight oximetry and ABG at the end of the night of 7.40/52/64.? She was discharged on Levaquin for 7 days, Flagyl for 5 days, Stiolto Respimat and rescue albuterol.? She was to continue guaifenesin 600 p.o. b.i.d., Cornet flutter valve and home O2 assessment demonstrated she required 2 L at rest and 2 L with activity.? Plan was for follow-up in the Pulmonary Clinic in 4 weeks for compliance check and to reassess her for CT scan to follow her worsening right upper lobe infiltrate. 09/20/2024: EGD esophagitis was normal.? Nonobstructing ring with dilatation. 09/29/2024: PCP office visit note.? 2 L nasal cannula saturation 93%.? Weight 90 lb.? Respiratory medicines include guaifenesin 600 mg p.o. q.12 hours.? Albuterol inhaler p.r.n., albuterol nebulizer p.r.n., Stiolto Respimat, Flonase nasal spray 1 b.i.d. p.r.n. Clinic on 10/06/2024: stated she had done well and back to her baseline breathing 95% no normal walking more. She could walk 1 block. Had gained 1 lb. Was on Stiolto Respimat wearing 2 L at rest with saturations 92. 2 L with activity saturations ranging 66-90 and 2 L bleed in at night. Continue to smoke 5 cigarettes a day. Cat score was 19. Download compliance with poor compliance at 40% and no usage after 09/26/2024. 10/21/2024: CT scan of the chest reviewed with radiologist and compared to 10/2023, 08/02/2024, 08/31/2024 with worsening right upper lobe low-attenuation lung nodule consistent with atelectasis, mucous retention or pneumonia. PFTs demonstrated severe obstructive abnormality consistent with gold grade 3 group E COPD. with a significant decrease in FVC, FEV1 and diffusing capacity compared to 12/14/2019 and a significant increase in residual volume and functional residual capacity all consistent with worsening COPD. 6 minute walk required no oxygen at rest and 2 L with activity. 11/01/2024 through 11/07/2024: Admitted to [facility] with a CT scan chest now demonstrating larger right upper lobe consolidation with cavitary lung nodules. Liver biopsy returned for hepatocellular. plan per oncology was for patient to get strong enough to undergo outpatient chemotherapy. 11/03/2024: QuantiFERON gold negative. serologies on 11/01/2024 anti CCP less than 16 11/19/2024 through 11/23/2024: Admitted to [facility] with shortness of breath. CT scan of the chest with worsening right upper lobe infiltrate and progressive cavitary lesions. Treated with pulmonary hygiene, antibiotics, oxygen. 11/22/2024 underwent bronchoscopy to assess for endobronchial lesion or cancer and there was no obstructing mass. Secretions were removed. Biopsies were obtained and were negative for malignancy. Given patient's lack of response she was transferred to [facility] for higher level of care pulmonary and oncology treatments. Dr. Leonela samson. Transferred on 11/23/2024. 11/20/2024 IgG mycoplasma titer 1138 with negative mycoplasma PCR. 11/24/24: bronchial wash: AFB smear 1+ positive with 4-36 AFB per 1000 field at 400 X. 12/04/2024: Apparently discharged from [facility] on 11/30/24 on 2 antibiotics, Perhaps linezolid. does not sound like any additional procedures were obtained. Presented with weakness and recent falls. She had bilateral wheezes. Room air saturations 97%. 2 L nasal cannula saturation 94%. Temperature was 101.4?. White blood cell count 11.4, creatinine 1.07. Procalcitonin 0.2. MRSA nasal swab PCR negative CT chest abdomen pelvis with unchanged right hepatic lobe carcinoma, severe emphysema worsening right upper lobe consolidations with some new progression in the right lower lobe. Empirically started on cefepime, doxycycline and vancomycin. 12/05/24: Overall the patient tells me she is the same as yesterday. She has rest shortness of breath and dyspnea on exertion. She has cough with no phlegm production. Currently she is on 3 L nasal cannula saturations 94%. White blood cell count 11.2, creatinine 0.68. BNP 1580. procalcitonin increased from 0.2 on 12/04/2024 to 0.7 today. Yesterday she was 2.14 L positive. Seen by infectious disease consult later in the day and started on azithromycin, moxifloxacin and rifampin. Later in the day obtained download from 10/01/2024 to 10/30/2024. patient is on BiPAP no rate IPAP 9, EPAP 4. Usage days total 3%. Usage days greater than or equal to 4 hours is 0. Average usage on days used is 2 hours and 18 minutes. AHI 0.4. Median leak 0.0. I interpret this download as total noncompliance, adequate pressures and low leak. 12/06/24: patient tells me she feels a little bit better. Her cough is looser. Her sweating episodes are less intense. Her dyspnea on exertion is the same. She had 1 episode of hemoptysis this morning. When I enter the room she was on 2 L nasal cannula saturations 97%. I decreased her to 1 L and her saturations were 92%. White blood cell count 8.9, creatinine 0.66. Patient had an overnight oximetry on 3 L with recording duration of 7 hours and 20 minutes, average saturation 97%, low saturation 85%, time with saturation less than or equal to 88% was 0 minutes. Oxygen desaturation index 1.0. 12/07/24: patient developed AFib with RVR last night and transferred to the ICU. Amiodarone was ordered but the patient broke to normal sinus rhythm he and did not receive amiodarone. The patient does not remember this event and says that she was sleeping and had no change in her respiratory status. Currently the patient states that she is breathing at her baseline. She did have 1 sweat last night but was afebrile. She has less cough but more phlegm production the nebulized DuoNebs and Mucomyst are helping her expectorate. Currently she is on 1 L with saturations 97%. White blood cell count 6.6, creatinine 0.6, her weight is 43 kilos. chest x-ray with continued right upper lobe consolidation and tenting with no change and possible mild improvement in the right upper lobe infiltrate. 12/08/2024: Patient tells me she is feeling wonderful today. Better than she has in the last month. She has no shortness of breath at rest. She is producing green phlegm that is improving. When I enter the room she was on 3 L nasal cannula saturations 99%. decreased her to room air and saturations were 93%. She is afebrile. She had no cardiac arrhythmias overnight. She has no hemoptysis. White blood cell count 7.5, creatinine 0.55, she is afebrile. DATA: 12/04/2024: EXAMINATION: CT chest abdomen pelvis wo con INDICATION: Pneumonia. Trauma. COMPARISON: Chest CT dated 11/19/[address] abdomen and pelvis dated 08/02/2024 FINDINGS: CHEST CT: Severe emphysema with biapical calcified pleural parenchymal scarring. Unchanged region of consolidation with air bronchograms in the right upper lobe which has developed since 08/02/2024 consistent with pneumonia. Again seen is septal line thickening in the right middle and lower lobes with additional patchy regions of consolidation at the basilar right lower lobe consistent with pneumonia. There are few scattered small calcified pulmonary nodules in both lungs along with calcified mediastinal lymph nodes consistent with old granulomatous disease. No pleural effusion. Heart size normal. Atherosclerotic coronary artery calcification. No pericardial effusion. T7 laminectomy and spinal stimulator lead position in the posterior central canal at the level of T6-T7. Chronic mild anterior wedging of T7. ABDOMEN/PELVIS CT: Splenic calcification consistent with old granulomatous disease. Very subtle 2.7 x 1.5 cm Right hepatic lobe mass along the gallbladder fossa consistent with biopsy-proven hepatocellular carcinoma The gallbladder, pancreas and bilateral adrenal glands are normal. Mild cortical atrophy at the lower pole of the right kidney likely sequela prior infection or infarction. Bilateral nonobstructing nephrolithiasis with a couple 1-2 mm stones in the right kidney and 14 x 4 mm stone at the left kidney. Large amount of liquid appearing stool suggestive of diarrhea. No bowel obstruction. The appendix is not visualized. No pericecal inflammatory change to suggest acute appendicitis. Bladder is normal. The uterus is not identified and has likely been surgically resected. No free intraperitoneal gas or fluid. No pathologically enlarged abdominal or pelvic lymphadenopathy. Mild lumbar spondylosis. IMPRESSION: 1. Severe emphysema with multifocal pneumonia in the right lung most prominent in the upper lobe with some interval progression in the right lower lobe. 2. Unchanged 2.7 x 1.5 cm subtle mass in the right hepatic lobe consistent with biopsy-proven hepatocellular carcinoma. 3. Bilateral nonobstructing nephrolithiasis. 4. Large amount of stool throughout the colon suggest diarrhea. 09/07/2024: Home O2 assessment: Rest room air saturation 86%. Rest nasal cannula 1 L saturation 88%. Rest nasal cannula 2 L saturation 91%. Exercise nasal cannula 2 L saturation 90%. Patient requires 2 L with rest and 2 L with activity. 09/07/24: Patient wore her home BiPAP no rate, IPAP 9, EPAP 4 and 2 L bleed in with an over the mouth under the nose mask. She said she wore the mask for 6-1/2 hours and slept well and feels refreshed this morning. Overnight oximetry on these settings with recording duration of 6 hours and 52 minutes, average saturation 92%. Low saturation 87%. Time with saturation less than or equal to 88% was 3 minutes. Oxygen desaturation index 0.6. ?Patient had ABG at the end of the night on these settings with a pH of 7.40/52/64. 08/31/24: EXAMINATION: CTA chest PE protocol DATE: 08/31/2024 11:02 INDICATION: Shortness of breath TECHNIQUE: Computed tomography (CT) pulmonary angiogram of the chest was performed with 100 mL Omnipaque-350 intravenous contrast. Additional 3D reconstructions utilizing coronal maximum intensity projection (MIP) were performed. Automated exposure control and iterative reconstruction technique were employed. The dose-length product was 151.66 mGy-cm. COMPARISON: 08/02/2024 and 12/08/2023 FINDINGS: No pulmonary embolism. Severe emphysema with chronic partially calcified by apical pleural-parenchymal scarring. There is been some progression of low-attenuation fluid/mucus within several of the cystic airspace in the right upper lobe which are new since 12/08/2023 consistent with pneumonia. Unchanged chronic reticulonodular opacities with a few small calcified nodules in the basilar right middle lobe and lingula consistent with sequela of chronic pneumonia. No pleural effusion. Heart size is normal. Atherosclerotic coronary artery calcific lesion. No pericardial effusion. Thoracic aorta is normal in caliber. No pathologically enlarged thoracic lymphadenopathy. 1 cm cyst and 13 x 5 x 3 mm nonobstructing stone at the upper pole the left kidney. There is scattered cortical scarring in the right kidney consistent with sequela of prior infection or infarction. Additional 2 mm nonobstructing stone at the lower pole of the right kidney. Mild thoracic spondylosis with chronic minimal anterior wedging of a few mid and lower thoracic vertebral bodies. Spinal stimulator leads which terminate at the posterior central canal at the level of T6-T7. IMPRESSION: 1. No pulmonary embolism. 2. Severe emphysema with right upper lobe pneumonia. 3. Bilateral nonobstructing nephrolithiasis. --------- 10/27/2022 EXAMINATION: CT lung screening INDICATION: Personal history of nicotine dependence, current smoker with 50 pack year history COMPARISON: 10/25/2021 FINDINGS: There is severe emphysema. There is a stable 5 mm nodule of the left upper lobe. There is stable 3 mm nodule of the right upper lobe. The lungs are free of acute opacities. No pleural effusion or pneumothorax. There is scarring and calcification of the lung apices. Calcified coronary artery atherosclerosis is noted. No pathologically enlarged thoracic lymph nodes are identified. The heart size is normal. There is mild thoracic spondylosis. IMPRESSION: 1. Lung-RADS category 2: Benign appearance or behavior. Continue annual screening with noncontrast low-dose chest CT in 12 months. 12/19/2019 PULMONARY FUNCTION TESTS Results are reliable and reproducible. Spirometry: FEV1 is 60%, moderately decreased, 1.49 L. FVC is 90% normal. Decreased FEV1% consistent with airflow obstruction. . There is a 14% increase in FEV1 with bronchodilator, 200 ml, which is significant. Lung volumes: Total lung capacity 107% normal. RV/TLC increased 48% and consistent with air trapping. Airway resistance increased 336%. Diffusion: DLCO moderately reduced 35%. Flow volume loop: Scooping of the expiratory limb. IMPRESSION: Moderate obstructive ventilatory impairment with good response to bronchodilator, air trapping, moderate diffusion impairment. This is consistent with COPD. 11/23/2019: Alpha 1 anti trypsin genotype MM. ?Alpha 1 anti trypsin level 160, normal. Review of Systems Constitutional: Constitutional: Reports no additional constitutional complaints Eyes: Eyes: Reports no additional eye complaints ENT: Reports system reviewed and no additional complaints, except as documented Cardiovascular: Cardiovascular: Reports no additional cardiovascular complaints Respiratory: Respiratory: Reports no additional respiratory complaints Gastrointestinal: Gastrointestinal: Reports no additional gastrointestinal complaints Musculoskeletal: Musculoskeletal: Reports no additional musculoskeletal complaints Neurologic: Reports system reviewed and no additional complaints, except as documented Psychiatric: Psychiatric: Reports no additional psychiatric complaints Endocrine: Endocrine: Reports no additional endocrine complaints Hematologic/Lymphatic: Hematologic/Lymphatic: Reports no additional hematologic/lymphatic complaints Allergic/Immunologic: Allergic/Immunologic: Reports no additional allergic/immunologic complaints Exam Const: General: cooperative and comfortable Orientation/consciousness: oriented to person, oriented to place and oriented to time HENMT: Head: normal to inspection Ears: hearing grossly normal bilaterally Eyes: General: appearance normal, both eyes and all related structures Neck: Neck: normal visual inspection Chest: Chest palpation & inspection: normal inspection of the chest Resp: Effort & Inspection: normal respiratory effort and able to speak in complete sentences Auscultation: crackles, no rales, no rhonchi, no wheezes and diminished lung sounds Other: Crackles right Cardio: Jugular venous distension: no JVD GI: Inspection: normal to inspection Skin: General skin exam: normal color Neuro: General: oriented to person, oriented to place and oriented to time Extrem: General: normal to inspection and no edema Psych: Appearance: grossly normal Objective Data Vital Signs Vital Signs: Vital Signs - 24 hr 12/07/24 10:10 12/07/24 11:25 12/07/24 12:00 Temperature 36.6 C Pulse Rate 86 90 82 Respiratory Rate 20 22 H 21 H Blood Pressure 118/63 113/52 L Pulse Oximetry 94 96 Oxygen Delivery Oxygen Flow Rate Fraction of Inspired Oxygen 12/07/24 12:00 12/07/24 12:00 12/07/24 14:50 Temperature Pulse Rate 85 86 Respiratory Rate Blood Pressure Pulse Oximetry 96 98 Oxygen Delivery Nasal Cannula Nasal Cannula Oxygen Flow Rate 2 1 Fraction of Inspired Oxygen 12/07/24 14:55 12/07/24 15:05 12/07/24 16:00 Temperature Pulse Rate 81 84 83 Respiratory Rate 19 15 Blood Pressure Pulse Oximetry 96 Oxygen Delivery Nasal Cannula Oxygen Flow Rate 2 Fraction of Inspired Oxygen 12/07/24 16:00 12/07/24 16:00 12/07/24 20:00 Temperature 36.4 C Pulse Rate 83 88 87 Respiratory Rate 22 H 21 H Blood Pressure 119/54 L Pulse Oximetry 96 95 Oxygen Delivery Nasal Cannula Oxygen Flow Rate 2 Fraction of Inspired Oxygen 12/07/24 20:00 12/07/24 20:00 12/07/24 20:30 Temperature 37.1 C Pulse Rate 87 87 91 Respiratory Rate 21 H 20 Blood Pressure 140/68 Pulse Oximetry 95 Oxygen Delivery Oxygen Flow Rate Fraction of Inspired Oxygen 12/07/24 20:31 12/07/24 20:40 12/08/24 00:00 Temperature Pulse Rate 91 109 H 80 Respiratory Rate 24 H 20 20 Blood Pressure 129/58 L Pulse Oximetry 99 100 Oxygen Delivery Nasal Cannula Oxygen Flow Rate 3 Fraction of Inspired Oxygen 32 12/08/24 00:00 12/08/24 02:10 12/08/24 02:11 Temperature Pulse Rate 80 87 87 Respiratory Rate 20 20 Blood Pressure Pulse Oximetry 100 Oxygen Delivery Nasal Cannula Oxygen Flow Rate 3 Fraction of Inspired Oxygen 32 12/08/24 02:20 12/08/24 04:00 12/08/24 04:00 Temperature 36.3 C L Pulse Rate 83 84 84 Respiratory Rate 20 23 H Blood Pressure 141/68 H Pulse Oximetry 99 Oxygen Delivery Oxygen Flow Rate Fraction of Inspired Oxygen 12/08/24 07:26 12/08/24 08:00 12/08/24 08:00 Temperature 36.5 C Pulse Rate 98 98 98 Respiratory Rate 22 H 22 H Blood Pressure 129/69 Pulse Oximetry 96 96 Oxygen Delivery Nasal Cannula Oxygen Flow Rate 2 Fraction of Inspired Oxygen 32 12/08/24 08:35 12/08/24 08:35 12/08/24 08:50 Temperature Pulse Rate 97 99 Respiratory Rate 21 H 20 Blood Pressure Pulse Oximetry 100 Oxygen Delivery Nasal Cannula Oxygen Flow Rate 3 Fraction of Inspired Oxygen 12/08/24 09:14 Temperature Pulse Rate Respiratory Rate Blood Pressure Pulse Oximetry 93 Oxygen Delivery Room Air Oxygen Flow Rate Fraction of Inspired Oxygen Intake/Output Intake/Output: Intake & Output 12/05/24 12/06/24 12/07/24 12/08/24 23:59 23:59 23:59 23:59 Intake Total 560 2117 650 500 Output Total 100 200 Balance 560 2117 550 300 Meds/Results Medications: Active Medications Generic Name Dose Route Start Last Admin Trade Name Freq PRN Reason Stop Dose Admin Acetaminophen 650 mg 12/04/24 13:40 12/07/24 20:02 Acetaminophen 325 Mg Tablet PO 650 mg Q6H PRN Administration Mild Pain (1-3) or Fever Acetylcysteine 200 mg 12/05/24 14:00 12/08/24 08:31 Acetylcysteine 20% Inhal Soln 800 Mg/4 Ml Vial INHALATION 200 mg Q6HRT ALBERTA Administration Azithromycin 500 mg 12/05/24 14:45 12/08/24 08:39 Azithromycin 500 Mg Tablet PO 500 mg DAILY ALBERTA Administration Benzonatate 100 mg 12/07/24 17:00 12/08/24 08:39 Benzonatate 100 Mg Capsule PO 12/10/24 16:59 100 mg TID ALBERTA Administration Enoxaparin Sodium 40 mg 12/05/24 09:00 12/06/24 08:43 Enoxaparin 40 Mg/0.4 Ml Syringe SUB-Q 40 mg DAILY ALBERTA Administration Guaifenesin 1,200 mg 12/05/24 09:35 12/08/24 08:40 Guaifenesin 12 Hr 600 Mg Tabcr PO 1,200 mg Q12HR ALBERTA Administration Ipratropium [place] 0.5 mg 12/07/24 14:00 12/08/24 08:31 Ipratropium Br 0.02% Inh Soln 0.5 Mg/2.5 Ml Vial INHALATION 0.5 mg Q6HRT ALBERTA Administration Loperamide HCl 2 mg 12/07/24 13:27 12/08/24 09:07 Loperamide Hcl 2 Mg Capsule PO 2 mg PRN PRN Administration Diarrhea Lovastatin 40 mg 12/06/24 21:00 12/07/24 20:03 Lovastatin 20 Mg Tablet PO 40 mg HS ALBERTA Administration Moxifloxacin HCl 400 mg 12/05/24 14:45 12/08/24 08:40 Moxifloxacin Hcl 400 Mg Tablet PO 400 mg QAM ALBERTA Administration Ondansetron HCl 4 mg 12/04/24 13:40 12/06/24 12:39 Ondansetron Hcl Odt 4 Mg Tablet PO 4 mg Q6H PRN Administration Nausea And Vomiting Rifampin 600 mg 12/05/24 14:45 12/08/24 05:24 Rifampin 300 Mg Capsule PO 600 mg DAILY@0600 ALBERTA Administration Solifenacin 5 mg 12/06/24 21:00 12/07/24 20:03 Solifenacin 5 Mg Tablet PO 5 mg HS ALBERTA Administration Radiology Results: ITS Impressions Head CT 12/04/24 09:15 IMPRESSION: 1. 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 No acute intracranial process. 2. Age-related changes including mild diffuse volume loss and mild scattered white matter hypoattenuation consistent with chronic small vessel ischemic disease. Chest/Abdomen/Pelvis CT 12/04/24 09:20 IMPRESSION: 1. Severe emphysema with multifocal pneumonia in the right lung most prominent in the upper lobe with some interval progression in the right lower lobe. 2. Unchanged 2.7 x 1.5 cm subtle mass in the right hepatic lobe consistent with biopsy-proven hepatocellular carcinoma. 3. Bilateral nonobstructing nephrolithiasis. 4. Large amount of stool throughout the colon suggest diarrhea. Chest X-Ray 12/07/24 09:09 Impression: 1: Stable complex right upper lobe pneumonia with adjacent loculated effusion/pleural thickening and tenting of the right hilum. Findings compatible with pneumonia, possibly atypical. 2: Slightly improved right upper lobe infiltrates compared with 12/04/2024, possibly resolving pneumonia. Labs Labs: Laboratory Results - last 24 hr 12/08/24 04:13 WBC 7.5 RBC 3.32 L Hgb 9.6 L Hct 31.6 L MCV 95.2 MCH 28.9 MCHC 30.4 L RDW 13.3 Plt Count 225 MPV 9.4 Immature Gran % (Auto) 0.7 H Neut % (Auto) 77.1 H Lymph % (Auto) 8.1 L [place] % (Auto) 8.8 H Eos % (Auto) 4.8 H Baso % (Auto) 0.5 Lymph # (Auto) 0.61 L [place] # (Auto) 0.7 H Eos # (Auto) 0.4 H Baso # (Auto) 0.0 Abs Immat Gran (auto) 0.05 H Absolute Neuts (auto) 5.8 Absolute Nucleated RBC 0.000 Nucleated RBC % 0.0 Sodium 137 Potassium 4.1 Chloride 105 Carbon Dioxide 25 Anion Gap 7 BUN 11 D Creatinine 0.55 L Estim Creat Clear Calc 52 Estimated GFR > 60 Glucose 96 Calcium 8.4 Phosphorus 4.2 Magnesium 1.7
--- NOTE | 2024-12-08 13:59 | P.DS_ITS ---
DS: Admitting Diagnosis Discharge Date 12/08/2024 Admitting Diagnosis Weakness DS: Discharge Diagnosis Discharge Diagnosis (1) Mycobacterial disease, pulmonary: Code(s): A31.0 - Pulmonary mycobacterial infection Status: Acute DS: Summary Hospital Course Hospital Course: 69-year-old female with a PMH of severe COPD with chronic hypoxic and hypercarbic respiratory failure on 2 L nasal cannula (follows with [place] pulmonology), recent smoking cessation, iron deficiency anemia, chronic severe protein calorie malnutrition, GERD, prior esophageal stricture requiring dilatation, recent diagnosis 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 This is been ongoing for the past 8 months. Worsening shortness of breath as well. Due to the weakness he has had an increase in falls with 3 the night ACUTE DIALYSIS NURSE. Recent admission at [facility], transferred on 11/23/2024 to [facility] for high- level pulmonary care where she received extensive pulmonary toileting and was treated for suspected pneumonia, she reports she was discharged on 2 anti biotics. Admits to having watery bowel movements which she had at [facility] in November as well. On presentation WBC 11.4, neutrophilia, serum creatinine 1.07, procalcitonin 0.2, urinalysis with many squamous cells, nasal MRSA PCR negative, head CT with chronic cystic encephalomalacia in the right parietal lobe, age-related changes including mild diffuse volume loss and mild scattered white matter hypoattenuation consistent with chronic small-vessel ischemic disease. CT chest abdomen pelvis without contrast demonstrating severe emphysema with multifocal pneumonia on the right lung most prominent in the upper lobe with some interval progression in the right lower lobe, unchanged 2.7 x 1.5 cm subtle mass in the right hepatic lobe consistent with biopsy-proven hepatocellular carcinoma, bilateral nonobstructing nephrolithiasis, large amount of stool throughout the colon suggesting diarrhea. ----- C diff resulted negative. Diarrhea resolved. Patient worked with PT and OT. Suggested she return home with home health, she does not have a PCP so care coordinators working with the patient on getting that set up. Patient did want to return home regardless. Patient did not want to wear her noninvasive ventilator anymore. Pulmonology consultation completed. She had overnight oximetry 3 L. Advised by pulmonology to use 3 L while she naps and sleeps and use nasal cannula to maintain saturation 90 94% at home with rest and activity. The patient was breathing much better after pulmonary toilet. She is discharged on Stiolto Respimat 2 puffs q.a.m., rescue albuterol inhaler and nebulizers, guaifenesin 1200 mg p.o. b.i.d.. She does have a follow-up in the pulmonology clinic on 01/04/2025. For hepatocellular carcinoma she had a needle biopsy on 11/03/2024. She follows with Oncology and they hope to initiate chemotherapy when she is stronger. When she presented on a previous admission she had a bronchoscopy performed and bronchial wash on 11/24/2024 demonstrated AFB smear 1+ positive with 4-36 AFB per 1000 feel that 400 X. This was noted on this return admission therefore Infectious Disease tele medicine was consulted. She has progressive cavitary pneumonia in the right upper lobe. A TB PCR probe was unable to be performed on that sample from 11/24/2024. She had 3 sputum induction on 12/06, 12/07, 12/08. AFB smear on 12/06 negative. She was taken off of isolation precautions. Initially she was placed on cefepime doxycycline and vancomycin, those were changed to Azithromycin moxifloxacin rifampin all started on 12/05/2024 per ID. Over the next few days the patient's symptomatology improved greatly. She will be following up with them in the outpatient setting and is discharged on the antibiotics aforementioned. Repeat EKG ordered to assess QTC status after some time. The patient is discharged to home in stable condition on 12/08/2024. She is independent in her ADLs at home, uses a cane or walker. She lives at home alone and has a neighbor who checks on her often. She is confident to return home even if home health cannot be set up, does not want to stay any longer or be discharged to a longterm facility. She reports she will follow-up with pulmonology Infectious Disease and her new primary care. Time Spent with Patient Time attestation: Total time spent providing and/or coordinating discharge services: DS: Data Data Completed and Pending Labs on day of discharge: Labs from last 24 hours 12/08/24 04:13 WBC 7.5 RBC 3.32 L Hgb 9.6 L Hct 31.6 L MCV 95.2 MCH 28.9 MCHC 30.4 L RDW 13.3 Plt Count 225 MPV 9.4 Immature Gran % (Auto) 0.7 H Neut % (Auto) 77.1 H Lymph % (Auto) 8.1 L [place] % (Auto) 8.8 H Eos % (Auto) 4.8 H Baso % (Auto) 0.5 Lymph # (Auto) 0.61 L [place] # (Auto) 0.7 H Eos # (Auto) 0.4 H Baso # (Auto) 0.0 Abs Immat Gran (auto) 0.05 H Absolute Neuts (auto) 5.8 Absolute Nucleated RBC 0.000 Nucleated RBC % 0.0 Sodium 137 Potassium 4.1 Chloride 105 Carbon Dioxide 25 Anion Gap 7 BUN 11 D Creatinine 0.55 L Estim Creat Clear Calc 52 Estimated GFR > 60 Glucose 96 Calcium 8.4 Phosphorus 4.2 Magnesium 1.7 Preliminary micro results at discharge 12/07/24 03:21 Acid Fast Bacilli Culture - Preliminary Sputum 12/04/24 12:52 Blood Culture - Preliminary Blood 12/04/24 13:02 Blood Culture - Preliminary Blood 12/06/24 05:33 Acid Fast Bacilli Culture - Preliminary Sputum Discharge Plan Discharge Attending physician on discharge: Hawa Huntley Consulting providers: Ej Neves; Melissa Tracey; Shiv Dixon Discharging Clinician: Hawa Huntley Anticipated Discharge Date/Time: 12/08/24 14:22 Patient Disposition: Home Activity: september shower Diet: as tolerated Discharge Instructions: Continue oxygen via nasal cannula to maintain a oxygen saturation between 90 94% at rest and with activity. Use 3 L when sleeping and napping. Follow-up with primary care, pulmonology on December 04, 2024, infectious disease with Dr. Dixon. Check EKG in 3 days Patient Instructions: Antibiotic Form Patient Language: Croatian Stand Alone Forms: General Discharge Information Follow-up/Referrals: Melissa Tracey MD [Physician] - (She has an appointment on 01/04/2025 scheduled) Shiv Dixon MD [Physician] - (Tele infectious disease follow-up) PHYSICIAN,CONFECTIONERY LABORATORY MANAGER [Primary Care Provider] - 12/15/24 Discharge Medications: New azithromycin 500 mg Tablet 500 mg PO 3XW Qty: 30 0RF moxifloxacin 400 mg Tablet 400 mg PO QAM Qty: 30 0RF rifampin 300 mg Capsule 600 mg PO 3XW Qty: 60 0RF Continued aspirin [Adult Aspirin Regimen] 81 mg tablet,delayed release (DR/EC) 81 mg PO DAILY solifenacin [Vesicare] 10 mg tablet 5 mg PO HS albuterol sulfate 2.5 mg /3 mL (0.083 %) solution for nebulization 2.5 mg inhalation Q4-6H PRN (Reason: shortness of breath or wheezing) Qty: 180 3RF Xtampza ER 13.5 mg cap,sprinkl,ER12hr(DONT CRUSH) 13.5 mg PO Q12H albuterol sulfate 90 mcg/actuation HFA aerosol inhaler See Rx Instructions .ROUTE .COMPLEX PRN (Reason: Shortness Of Breath Or Wheezing) Rx Instructions: INHALE 1 PUFF BY MOUTH EVERY 4 HOURS NEEDED FOR SHORTNESS OF BREATH lovastatin 40 mg tablet 40 mg PO HS sennosides-docusate sodium [Senokot-S] 8.6-50 mg Tablet 2 tab-cap PO BID PRN (Reason: Constipation) Qty: 120 0RF loratadine 10 mg Tablet 10 mg PO DAILY cholecalciferol (vitamin D3) [Vitamin D3] 125 mcg (5,000 unit) Tablet 125 mcg PO DAILY guaifenesin [Mucinex] 600 mg Tablet Extended Release 12hr 1,200 mg PO Q12H omeprazole 40 mg capsule,delayed release(DR/EC) 40 mg PO DAILY Qty: 90 1RF Rx Instructions: TAKE 1 CAPSULE BY MOUTH DAILY Stiolto Respimat 2.5-2.5 mcg/actuation mist See Rx Instructions .ROUTE .COMPLEX Qty: 4 11RF Dose Instruction: INHALE 2 PUFFS BY MOUTH DAILY Rx Instructions: INHALE 2 PUFFS BY MOUTH DAILY gabapentin 300 mg capsule 300 mg PO Q12H Qty: 180 0RF ferrous sulfate [FeroSul] 325 mg (65 mg iron) tablet See Rx Instructions .ROUTE .COMPLEX Qty: 30 3RF Dose Instruction: TAKE 1 TABLET BY MOUTH EVERY MORNING Rx Instructions: TAKE 1 TABLET BY MOUTH EVERY MORNING metoprolol succinate 25 mg tablet extended release 24 hr See Rx Instructions .ROUTE .COMPLEX Qty: 90 2RF Dose Instruction: TAKE 1 TABLET BY MOUTH DAILY Rx Instructions: TAKE 1 TABLET BY MOUTH DAILY fluticasone propionate 50 mcg/actuation spray,suspension See Rx Instructions .ROUTE .COMPLEX Qty: 48 6RF Dose Instruction: SHAKE LIQUID AND USE 1 SPRAY IN EACH NOSTRIL TWICE DAILY NEEDED FOR NASAL CONGESTION Rx Instructions: SHAKE LIQUID AND USE 1 SPRAY IN EACH NOSTRIL TWICE DAILY NEEDED FOR NASAL CONGESTION Held cyclobenzaprine 5 mg tablet 5 mg PO Q12H Hold Instructions: Hold until you see your PCP. Other Ambulatory Orders: CA 12 lead EKG (Routine) Timeframe: 3 Days Location: Determined by Patient Ordered By: Hawa Huntley Date of admission: 12/05/24 09:56 Primary Care Provider: PHYSICIAN,CONFECTIONERY LABORATORY MANAGER Admitting Provider: Hussein Anderson Attending physician on admission: Hussein Anderson Condition: Improved
== END 2024-12-08 14:22 | disposition home or self-care (01) | DRG 177 ==
LOC: ANHED 08:29 → ANH3MEDSUR 14:27 → ANH3MED 14:42 → ANHICU 12-07 10:04 → ANH3MEDSUR 12-09 13:44 → ANH3MED 12-09 13:44
PROVIDERS: Internal Medicine; Internal Medicine Pulmonary Disease; Student in an Organized Health Care Education/Training Program; Admitting Provider General Practice; Emergency Provider Emergency Medicine; Visit Provider General Practice
DX: A31.0 Pulmonary mycobacterial infection (principal); E43 Unspecified severe protein-calorie malnutrition; C22.0 Liver cell carcinoma; I47.10 Supraventricular tachycardia, unspecified; J44.0 Chronic obstructive pulmonary disease with (acute) lower respiratory infection; J96.11 Chronic respiratory failure with hypoxia; J96.12 Chronic respiratory failure with hypercapnia; Z68.1 Body mass index [BMI] 19.9 or less, adult; J18.8 Other pneumonia, unspecified organism; I10 Essential (primary) hypertension; I48.91 Unspecified atrial fibrillation; I73.00 Raynaud's syndrome without gangrene; D50.9 Iron deficiency anemia, unspecified; E55.9 Vitamin D deficiency, unspecified; E53.8 Deficiency of other specified B group vitamins; E78.5 Hyperlipidemia, unspecified; K58.9 Irritable bowel syndrome, unspecified; K21.9 Gastro-esophageal reflux disease without esophagitis; M35.9 Systemic involvement of connective tissue, unspecified; M54.16 Radiculopathy, lumbar region; M79.7 Fibromyalgia; M06.9 Rheumatoid arthritis, unspecified; M85.80 Other specified disorders of bone density and structure, unspecified site; G25.81 Restless legs syndrome; G62.9 Polyneuropathy, unspecified; R29.6 Repeated falls; F41.9 Anxiety disorder, unspecified; Z79.82 Long term (current) use of aspirin; Z79.899 Other long term (current) drug therapy; Z99.81 Dependence on supplemental oxygen; Z87.442 Personal history of urinary calculi; Z87.891 Personal history of nicotine dependence; Z96.82 Presence of neurostimulator
CPT/HCPCS: 36415; 70450; 71045; 71046; 71250; 74176; 80048; 80053; 81001; 83735; 83880; 84100; 84145; 84484; 85025; 87040; 87045; 87046; 87427; 87493; 87641; 93005; 94640; 94762; 96361; 96365; 96366; 96367; 96372; 97162; 97165; 97530; 97535; 99285; A9270; G0378; J0692; J1650; J3373; J7030; J7050; J7120

== ENCOUNTER 2025-03-02 15:00 | Inpatient (IN) | payer MEDICARE, MEDICAID, SELFPAY ==
--- OUTSIDE RECORDS SUMMARY | 2006-01-26 09:13 | XMS_ITS | Continuity of Care Document ---
Author Organization [facility] Address [address] [facility] [address] [place] [address] Phone Care Team Providers Care Fire Battalion Chief Name Role Phone Sherif Doyle MD Unavailable Unavailable Allergies, Adverse Reactions, Alerts Substance Reaction Status Criticality PENICILLIN G POTASSIUM Active No In formation MEPERIDINE HCL Active No Informatio n Medications Medication Instructions Dosage Effective Dates (start - stop) Status Comments METHADOSE 5 MGTABLET tk 2 ts qd - Acti ve Lidoderm 5 % (700 mg/patch) Adhesive Patch - Active Miacalcin 200 unit/Actuation Nasal Kelly Aerosol 1 spray each nostril qd - [...] on Encounter [facility], [address], [id number], [place] tel:[phone] [facility] No Information 6 Vivek Gorman. [address] [place] [address], [id number] , [place]. tel:[phone] Offic/outpt E&m Estab Minor 10 [facility], [address] [address], [place], [address], [place] tel:[phone] [facility] No Information 6 José Luis Sullivan. [address] [facility], [address], [id number] , [place]. tel:[phone] Referring Provider: Nate Ordonez V, [address], [address] . tel:[phone] [facility], [address], [place], [address], [place] tel:[phone] [facility] No Information 6 José Luis Sullivan. [address], [place], [place], [address] , [place]. tel: [phone] Referring Provider: Nate Ordonez V, [address], [place], [address] . tel:[phone] [facility], [address], [place], [place], [address], [place] tel:[phone] [facility] No Information 6 José Luis Sullivan. [address], [place], [place], [address] , [place]. tel: [phone] Referring Provider: Nate Ordonez V, [address], [place], [address] . tel:[phone] Offic/outpt E&m Estab Low-mod [facility], [address], [place], [address], [place] tel:[phone] [facility] No Information 6 José Luis Sullivan. [address], [place], [place], [address] , [place]. [phone] Referring Provider: Nate Ordonez V, [address], [place], [address] . tel:[phone] Offic/outpt E&m Estab Low-mod [facility], [address], [place], [place], [address], [place] tel:[phone] [facility] No Information 6 José Luis uSllivan. [address], [place], [address] , [place]. tel: [phone] Referring Provider: Nate Ordonez V, [address], [place], [address] . tel:[phone] Offic/outpt E&m Estab Minor 10 [facility], [address], [place], [place], [address], [place] tel:[phone] [facility] No Information May-0 9-200 6 José Luis Sullivan. [address], [place], [address] , [place]. tel:[phone] Referring Provider: Nate Ordonez V, [address], [place], [address] . tel:[phone] [facility], [address], [place], [place], [address], [place] tel:[phone] [facility] No Information May-0 5-200 6 José Luis Sullivan. [address], [place], [place], [address] , [place]. tel:[phone] Referring Provider: Nate Ordonez V, [address], [place], [address] . tel:[phone] [facility], [address], [place], [place], [address], [place] tel:[phone] [facility] No Information May-0 2-200 6 José Luis Sullivan. [address], [place], [address] , [place]. tel:[phone] Referring Provider: Nate Ordonez V, [address], [place], [address] . tel:[phone] [facility], [address], [place], [place], [address], [place] tel:[phone] [facility] No Information Apr-2 8-200 6 Ordonez Nate. [address], [place], [place], [address] , [place]. tel:[phone] Referring Provider: Nate Ordonez V, [address], [place], [address] . tel:[phone] [facility], [address], [place], [place], [address], [place] tel:[phone] [facility] No Information Aug- 5-200 6 José Luis Sullivan. [address], [place], [place], [address] , [place]. tel:[phone] Referring Provider: Nate Ordonez V, [address], [place], [address] . tel:[phone] [facility], [address], [place], [address], [place] tel:[phone] [facility] No Information 6 José Luis Sullivan. [address], [place], [place], [address] , [place]. tel:[phone] Referring Provider: Nate Ordonez V, [address], [place], [address] . tel:[phone] [facility], [address], [place], [place], [address], [place] tel:[phone] [facility] No Information 200 6 José Luis Sullivan. [address], [place], [place], [address] , [place]. tel:[phone] Referring Provider: Nate Ordonez V, [address], [place], [address] . tel:[phone] Offic Cons New/estab Mod-hi 60 [facility], [address], [place], [address], [place] tel:[phone] [facility] No Information 8-200 6 José Luis Sullivan. [address], [facility] [address], [place], [place], [address] , [place]. tel:[phone] Referring Provider: Nicho Goldstein MD B, [address] [place], [address]. tel:[phone] Family History Family Member Type Diagnosis Age At Onset Gen Fam Hx Problem (finding) Cancer Gen Fam Hx Problem (finding) Stroke Payers Payer name Insurance type Covered democrat ID Authorstepha jevon(s) BCBS Of [facility] [id number] Social History Type Description Quantity Date Captured [...]
[2025-03-02] VITALS (7 sets, daily range): BP systolic 90–132; BP diastolic 46–73; PULSE 78–98; RESP 15–20; TEMP 36.7–38; O2SAT 98–100; BMI 14.6; BMI 15.5
--- NOTE | ~2025-03-02 | XR_ITS ---
EXAMINATION: XR chest 1V portable COMPARISON: No comparisons available. HISTORY: cough FINDINGS: COPD changes There are bilateral infiltrates more prominent in the right upper lobe with abnormal thickening of the right lung apex incompletely evaluated, neoplasm is not excluded No pneumothorax. Heart is normal size. Mediastinal and hilar contours are within normal limits. Bony thorax no acute abnormality. Miscellaneous: None Impression: Bilateral pneumonia. Thickening of the right lung apex incompletely characterized but improved compared to the previous study. If there is concern for neoplasm contrast-enhanced CT is recommended Reviewed, dictated and finalized at location P. Impression: Bilateral pneumonia. Thickening of the right lung apex incompletely characteriz ed but improved compared to the previous study. If there is concern for neoplas m contrast-enhanced CT is recommended
--- NOTE | ~2025-03-02 | XR_ITS ---
Examination: XR chest 2V Clinical History: pneumonia Comparison: X-ray and CTA chest 03/02/2025 Technique: PA and Lateral Findings: Cardiomediastinal silhouette normal size and configuration. Emphysema and hyperinflation. Right upper lobe volume loss, scarring, airspace disease, and cavitary lesion. No acute bony abnormality. Spinal stimulator leads. IMPRESSION: 1. No significant change or worsening. Reviewed, dictated and finalized at location R. IMPROVEMENT CONTRACTOR
--- NOTE | ~2025-03-02 | CT_ITS ---
CTA chest PE protocol HISTORY:SOB, cancer, abnormal chest xr . COMPARISON: 12/04/2024 TECHNIQUE: Following the noncontrasted therapeutic radiologist, axial images of the thorax were obtained following infusion of 100 cc of Isovue 370. Post-processing on an independent workstation was performed to reconstruct MIP images for evaluation of the thoracic vasculature. FINDINGS: There is no pulmonary embolism, aortic dissection, thoracic aneurysm or pericardial fluid. Diffuse centrilobular emphysema and bronchiectasis particularly in the right upper lobe is again noted. There are airspace opacities within the right upper lobe grossly unchanged. There is cavitation like lesion within this area measuring 3.3 x 2.5 cm which is unchanged. No pleural effusion or pneumothorax is noted. There is no axillary, mediastinal or hilar adenopathy. Limited evaluation of the upper abdomen demonstrates no gross abnormalities. Review of bone windows demonstrates no osteoblastic or lytic lesions. IMPRESSION: There is no pulmonary embolism, aortic dissection, pericardial fluid or thoracic aneurysm. Airspace opacities within the right upper lobe is grossly unchanged. Cavitation lesion within this area is unchanged measuring 3.3 x 2.5 cm. This may represent atypical pneumonia however malignancy cannot be excluded. All CT scans at this facility are performed using low dose modulation techniques as appropriate to perform exam including the following: automated exposure control; use of iterative reconstruction technique; adjustment of the mA and/or kV according to patient size (this includes techniques or standardized protocols for targeted exams where dose is matched to indication/reason for exam). Reviewed, dictated and finalized at location S. IMPRESSION: There is no pulmonary embolism, aortic dissection, pericardial fluid or thoraci c aneurysm. Airspace opacities within the right upper lobe is grossly unchanged. Cavitation lesion within this area is unchanged measuring 3.3 x 2.5 cm. This may represen t atypical pneumonia however malignancy cannot be excluded. All CT scans at this facility are performed using low dose modulation techniqu es as appropriate to perform exam including the following: automated exposure c ontrol; use of iterative reconstruction technique; adjustment of the mA and/or kV according to patient size (this includes techniques or standardized protocol s for targeted exams where dose is matched to indication/reason for exam).
--- OUTSIDE RECORDS SUMMARY | 2025-03-02 15:23 | XMS_ITS | Clinical Summary ---
Author Organization [facility] Address [address] [place] [id number] Care Team Providers Care Telegrapher Agent Name Role Phone Tommy Kingian Primary Care Provider Allergies Active Allergy Reactions Criticality Noted Date [...] on file Legal Sex Female 4:04 AM CERTIFIED NURSES' AIDE Gender Identity Not on file Sexual [...] Pneumococcal vaccine 65+ (2 of 2 - PPSV23, PCV20, or PCV21) 03/02/2020 01/06/2020, 05/04/2005 Influenza Vaccine (#1) 2025 0, 02/12/2019, 01/13/2018, Additional history exists Zoster Vaccine Completed 04/24/2018, 01/27/2018 Insurance MEDICARE [place] MEDICARE [facility] [phone] MEDICARE ADVANTAGE Care Teams Telegrapher Agent Relationship Specialty Start Date End Date Tommy King DO PCP - General Internal Medicine 09/11/20
--- OUTSIDE RECORDS SUMMARY | 2025-03-02 15:23 | XMS_ITS | Clinical Summary ---
Author Organization [facility] [employer] Address [address] [place] [address] Care Team Providers Care Production Director Name Role Phone Tommy King DO Primary Care Provider [phone] Source Comments [facility],non-owned Affiliates and Associated Physician Practices is amultiple site organization consisting of ambulatory clinics and hospital sitesin [place], [place], [place] and [place]. This disclosure is being madepursuant to the Care Everywhere program and may not contain all information available regarding this patient. Last updated 18.[facility] Allergies Active Allergy Reactions [...] fluticasone propionate (FLONASE) 50 MCG/ACT nasal spray Leona 2 sprays into the nose once daily [...] 36.8 C (98.3 F) 06/12/2021 10:53 AM COMPOSITE SCIENCE TEACHER Respiratory Rate 18 05/23/2021 12:51 PM COMPOSITE SCIENCE TEACHER Oxygen Saturation 91% 08/05/2021 9:59 AM CDT [...] 1972 ZOSTER VACCINE (1 of 2) 07/25/2003 DEPRESSION SCREENING 05/04/2024 MEDICARE AWV CALENDAR YEAR 2024 COVID-19 VACCINE (3 - 2024- season) 2025 02/28/2021, 07/09/2020 INFLUENZA VACCINE (#1) 2025 , 01/06/2020, 01/13/2018, [...] this topic Medical Devices Implanted Type Area Youth Accommodation Support Worker Device Identifier Shelf Expiration Date Model / Serial / Lot Lead Nrstm 60cm Penta 3mm Pdl 16 [facility] - [id number] Implanted:Qty: 1 on 05/23/2021 by Esau Rose MD at [facility] Back [employer] 10/19/2022 [id number] / [id number] / Slnt Dura Duraseal Pg Trilysine Amine 5 Implanted:Qty: 1 on 05/23/2021 by Esau Rose MD at [facility] Back [employer] Erendira [id number] / / [id number] Gntr Nrstm 1.95inx2.19in [employer] - [id number] Implanted:Qty: 1 on 05/23/2021 by Esau Rose MD at [facility] Left: Back [employer] 03/26/2023 [id number] / [id number] / Insurance MEDICARE MEDICAID - [place] [employer] MANAGED MEDICARE ADV MEDICAID SPEND[place] SELF PAY NO INSURANCE Member Subscriber Plan / Payer (Ef fective for All Dates) Name:Melyssa Mccall Member ID:Not on file Relation to Subscriber:Not on file Name:MELYSSA MCCALL Subscriber ID:Not on file (Home) Address: [address] [place] [address] [place] [address] Payer ID:Not on file Group ID:Not on file Type:Self Pay Address: [facility] MANAGED MEDICARE PENDING SALE TO [facility] MEDICARE MEDICAID - OUT OF STATE Care Teams Production Director Relationship Specialty Start Date End Date Tommy King DO PCP - General Internal Medicine 04/23/21
--- OUTSIDE RECORDS SUMMARY | 2025-03-02 15:23 | XMS_ITS | Clinical Summary ---
[facility] Organization [facility] Address [address] [place] [address] Care Team Providers Care Dogman/Woman Name Role Phone Unavailable Primary Care Provider [...] mg by mouth 2 times daily. Active Active Problems Problem Noted Date Diagnosed [...] Encounters Date Type Department Care Team Description 01/31/2025 External Device Data STL ABSTRACTION Provider, Abstract 01/03/2025 External Device Data STL ABSTRACTION Provider, Abstract 12/29/2024 Telephone [facility] Surgical On[facility] [place] [id number] [place] [address] Mary Rand MD Needs Appointment 12/28/2024 Telephone [facility] Surgical Oncology [place] [address] [facility] [facility] [address] [place] [address] Mary Rand MD Appointment Correction 12/27/2024 External Device Data STL ABSTRACTION Provider, Abstract 12/21/2024 External Device Data STL ABSTRACTION Provider, Abstract 12/20/2024 External Device Data STL ABSTRACTION Provider, Abstract 11/23/2024 8:09 PM CDT - 11/30/2024 11:33 AM CDT Hospital Encounter [facility] Telemetry [address] [place] [address] Marco A Kellogg, Vikas Nelson, Shiv De La Rosa, Himanshu Alanis MD Chronic obstructive pulmonary disease Discharge Disposition: Home or Self Care from Last 3 Months Family History Medical [...] drink = 0.6 oz pur e alcohol) Feeling Safe Answer Date Recorded Are you in a relationship wi th someone who hurts you emotionally and/or physically? No 11/23/2024 Food Insecurity Answer Date Recorded Patient needs follow up regardin 11/23/2024 Transportation Needs Answer Date Record ed Patient needs follow up regardin 11/23/2024 Utility Needs Answer Date Recorded Patient needs follow up regardin 11/23/2024 Comments Unknown Sex and Gender Information Value [...] 11/24/2024 12:00 PM CDT Plan of Treatment Health Maintenance Due Date Last Done Comments DTAP/TDAP/TD VACCINES (1 - Tdap) 1972 PNEUMOCOCCAL VACCINE 50+ YEA RS (1 of 2 - PCV) 1972 COLORECTAL SCREENING 1998 Colorectal Cancer Screening 1998 FIT-DNA Q 3 years 1998 FIT/FOBT Q 1 year 1998 Flex Sig/CT Colonography Q 5 years 1998 RSV VACCINE (60+ or ) (1 - Risk 50-74 years 1-dose series) 07/25/2003 ZOSTER VACCINE (1 of 2) 07/25/2003 BREAST CANCER SCREENING 04/16/2016 04/16/20 15, 04/16/2015, 01/30/2014 OSTEOPOROSIS SCREENING 2018 INFLUENZA VACCINE (#1) 2024 01/13/2018 Medical Devices Implanted Type Area Steward/Stewardess Third Device Identifier Shelf Expiration Date Model / Serial / Lot Neuro Stimulator Neuro Stimulator [employer] CardiaLen [id number] / / Description:Leads - 3228 MRI [...] Comments TELEMETRY REPORT 12/01/2024 4:28 PM CDT from Last 3 Months Results * TELEMETRY REPORT (12/01/2024 4:28 PM CDT) us Provider Scanning ECG ORDERABLES Final Result from Last 3 Months Insurance [facility] PPO SNP [facility] MEDICAID [place] [facility] PPO [facility] MEDICAID [place] RX [employer] RX Member Subscriber Plan / Payer (Ef fective 2024-Present) Name:Melyssa Mccall Marilyn Relation to Subscriber:Self Name:Melyssa Mccall Payer ID:Not on file Group ID:[id number] Type:RX Medicare Part D Address: [address] RX [place] Medicaid RX PANDYA PLANS (INTERNAL) [facility] Plans Advance Directives For more information, please contact: [phone] * NO CPR (In Event of Cardiopulmonary [...]
--- OUTSIDE RECORDS SUMMARY | 2025-03-02 15:23 | XMS_ITS ---
[facility] Address [address] [place] [place] [address] Care Team Providers Care Supervisor Boiler Repair Name Role Phone Unavailable Primary Care Provider [...]
[2025-03-02 16:30] LABS: Influenza A QL RT-PCR Negative (Negative); Influenza B QL RT-PCR Negative (Negative); RSV RNA, RT-PCR Negative (Negative); SARS-CoV-2 RNA PCR Negative (Negative)
--- NOTE | 2025-03-02 18:01 | ED.GENADULT ---
HPI - General Adult General Chief complaint: Upper Respiratory Infection <NANCY Membreno - Last Filed: 03/02/25 23:43> Stated complaint: Cold/Flu or Pneumonia-short of breath/cough <NANCY Membreno - Last Filed: 03/02/25 23:43> Time Seen by Provider: 03/02/25 17:13 <NANCY Mebmreno - Last Filed: 03/02/25 23:43> <NANCY Membreno - Last Filed: 03/02/25 23:43> Source: patient <NANCY Membreno - Last Filed: 03/02/25 23:43> Mode of arrival: ambulatory <NANCY Membreno - Last Filed: 03/02/25 23:43> Limitations: no limitations <NANCY Membreno - Last Filed: 03/02/25 23:43> History of Present Illness HPI narrative: Patient is a 69 year old female with PMH of COPD on 3L DE and a recent diagnosis of hepatocellular carcinoma presenting with URI symptoms that started approximately 2-3 weeks ago. Symptoms on onset included both nocturnal and diurnal diaphoresis which then progressed to congestion, a productive cough with occasional yellow-green sputum, sinus pain, and increased dyspnea compared to her baseline. She endorses fevers for the last week although she has not measured as well as a decrease in appetite noting increased weight loss since the summer. She denies hemoptysis and chest pain. She also began to experience diarrhea and occasional abdominal pain a few days ago which has continued intermittently every day since. She denies hematochezia, melena, dysuria, dizziness or LOC. Patient continues to smoke 10-15 cigarettes/day <NANCY Membreno - Last Filed: 03/02/25 23:43> Related Data Home medications: Home Medications ?Medication ?Instructions ?Recorded ?Confirmed ?Last Taken ?Type aspirin 81 mg tablet,delayed 81 mg PO DAILY 06/02/19 03/02/25 02/16/25 History release (Adult Aspirin Regimen) cyclobenzaprine 5 mg tablet 5 mg PO Q12H 01/05/20 03/02/25 02/16/25 History Held on 12/08/24. Instructions: Hold until you see your PCP. oxycodone myristate 13.5 mg 13.5 mg PO Q12H 11/19/21 03/02/25 02/16/25 History capsule sprinkle extend release 12hr(DON'T CRUSH) (Xtampza ER) solifenacin 10 mg tablet (Vesicare) 5 mg PO HS 02/04/23 03/02/25 02/16/25 History cholecalciferol (vitamin D3) 125 125 mcg PO DAILY 07/24/23 03/02/25 02/16/25 History mcg (5,000 unit) tablet (Vitamin D3) guaifenesin 600 mg tablet, 1,200 mg PO Q12H 07/24/23 03/02/25 02/16/25 History extended release 12 hr (Mucinex) loratadine 10 mg tablet 10 mg PO DAILY 07/24/23 03/02/25 02/16/25 History albuterol sulfate 90 mcg/actuation See Rx Instructions .Route 03/15/24 03/02/25 02/16/25 History aerosol inhaler .COMPLEX PRN Shortness Of Breath Or Wheezing <NANCY Membreno - Last Filed: 03/02/25 23:43> Allergies/adverse reactions: Allergies Allergy/AdvReac Type Severity Reaction Status Date / Time Penicillins Allergy Severe Anaphylaxis Verified 03/02/25 23:30 meperidine Allergy Intermediate Itching Verified 03/02/25 23:30 sulfamethoxazole (From Allergy Intermediate Mouth Verified 03/02/25 23:30 Bactrim) burning/redness trimethoprim (From Bactrim) Allergy Intermediate Mouth Verified 03/02/25 23:30 burning/redness mirtazapine AdvReac Mild Headache Verified 03/02/25 23:30 <NANCY Membreno - Last Filed: 03/02/25 23:43> Review of Systems Review of Systems: All systems reviewed & are unremarkable except as noted in HPI and below <NANCY Membreno - Last Filed: 03/02/25 23:43> PMFSH Past Medical History Medical History: Medical History Vitamin D deficiency B12 deficiency Mixed incontinence Liana esophagitis Peripheral neuropathy Raynaud disease OSWALD (iron deficiency anemia) Osteopenia RLS (restless legs syndrome) Chronic narcotic use On home O2 Chronic sinusitis Olecranon bursitis, left elbow PSVT (paroxysmal supraventricular tachycardia) Kidney stones Fibromyalgia Rheumatoid arthritis Constipation IBS (irritable bowel syndrome) GERD (gastroesophageal reflux disease) Lumbar radiculopathy Esophageal stricture Status post dilatation ILD (interstitial lung disease) Small amount of interstitial lung disease was seen on base of lungs on chest CT 03/25/2018 which was an abdomen and pelvis CT Essential hypertension Collagen vascular disease Hyperlipidemia, unspecified Anxiety 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, patient unsure of this diagnosis COPD (chronic obstructive pulmonary disease) With severe obstructive disease noted on recent PFTs October 2024 with significant decompensation compared to prior study Tobacco abuse Quit 08/2024 <NANCY Membreno - Last Filed: 03/02/25 23:43> Surgical History Surgical History: Surgical History History of esophagogastroduodenoscopy (EGD) With history of esophageal dilatation of History of colonoscopy with polypectomy History of partial hysterectomy Status post insertion of spinal cord stimulator History of bladder suspension procedure History of appendectomy History of lumbar surgery Spinal cord stimulator implanted 05/23/21 <NANCY Membreno - Last Filed: 03/02/25 23:43> Family History Family History: Family History Mother Patient's mother is , Onset Age: 72 Sibling Carcinoma of colon Ovarian cancer Lung cancer Rectal cancer Family history of malignant neoplasm of breast in first degree relative Father Brain aneurysm Cerebrovascular accident, Onset Age: 54 Other Arthritis COPD (chronic obstructive pulmonary disease) High cholesterol Hypertension Lung disease Neuropathy <NANCY Membreno - Last Filed: 03/02/25 23:43> Social History Social History: Social History Social History: The patient reports that she has been since 2007 and lives alone. She has 1 son who lives in [place]. She quit smoking in August 2024 of months prior to that she smoked a pack of cigarettes per day for close to 60 years. She denies any significant alcohol use. Code status: DNR/DNI (she would be okay with pressors if needed for blood pressure support) Healthcare power of regulatory attorney: Cole (son) or Romi (friend) Smoking packs per day: 0.5 Smoking cigarettes per day: 10.0 Years smoked: 60 Smoking pack-years: 30.00 Smoking status: Heavy tobacco smoker Tobacco type: cigarettes Second hand tobacco smoke exposure: Yes Additional smoking assessment comments: Using Nicotine patches AT TIMES Alcohol intake: never Substance use: never Substance use type: does not use Do You Feel Safe in your Home?: Yes Lack of Transportation: No Lack of Food: Never True Current Housing: I Have Housing Concerned About Future Housing: No Difficulty Paying Gas/Electric Bills: No Difficulty Paying for Meds: No Currently Unemployed: No Education: Trade/Vocational Certificate Difficulty w/ Childcare or Family Care: No Living arrangements: alone Occupation/Education: retired Gender identity (if verbalized by the patient): Female Spiritual care concerns: No <NANCY Membreno - Last Filed: 03/02/25 23:43> Exam Narrative: GENERAL: Cachectic, poorly nourished, no acute distress. HEAD: Normocephalic, atraumatic. EYES: PERRLA and EOMI. ENT: Nares clear, no rhinorrhea or epistaxis. Mucous membranes moist. Oropharynx without tonsillar hypertrophy exudate or other lesions. Bilateral TMs pearly ocasio non-bulging NECK: Supple. No adenopathy or masses. No carotid bruits or JVD CHEST: Decreased lung sounds in all hill. No respiratory distress, 3L at baseline. No wheezes rales or rhonchi HEART: Regular rate and rhythm. No murmur heard. Normal peripheral pulses. ABDOMEN: Suprapubic tenderness and decreased bowel sounds in all quadrants. EXTREMITIES: Normal range of motion. No edema. SKIN: Warm, dry, no rash. NEURO: No focal deficits. Alert and oriented x3. PSYCH: Normal mood and affect <NANCY Membreno - Last Filed: 03/02/25 23:43> Course Course Emergency Course: <NANCY Membreno - Last Filed: 03/02/25 23:43> CHRONOMETER ASSEMBLER/PA Physician Supervision This visit was performed by both a physician and an APC. I performed all aspects of the MDM as documented. <Ryan Fish MD - Last Filed: 03/03/25 03:54> Vital Signs Vital signs: Vital Signs Temperature 38.0 C H 03/02/25 15:15 Pulse Rate 98 03/02/25 15:15 Respiratory Rate 20 03/02/25 15:15 Blood Pressure 103/46 L 03/02/25 15:15 Pulse Oximetry 98 03/02/25 15:15 Oxygen Delivery Nasal Cannula 03/02/25 15:15 Oxygen Flow Rate 3 03/02/25 15:15 Temperature 36.7 C 03/02/25 23:27 Pulse Rate 85 03/02/25 23:27 Respiratory Rate 16 03/02/25 23:27 Blood Pressure 132/50 L 03/02/25 23:27 Pulse Oximetry 98 03/02/25 23:27 Oxygen Delivery Nasal Cannula 03/02/25 15:35 Oxygen Flow Rate 3 03/02/25 15:35 <NANCY Membreno - Last Filed: 03/02/25 23:43> Vital Signs Temperature 38.0 C H 03/02/25 15:15 Pulse Rate 98 03/02/25 15:15 Respiratory Rate 20 03/02/25 15:15 Blood Pressure 103/46 L 03/02/25 15:15 Pulse Oximetry 98 03/02/25 15:15 Oxygen Delivery Nasal Cannula 03/02/25 15:15 Oxygen Flow Rate 3 03/02/25 15:15 Temperature 36.7 C 03/02/25 23:27 Pulse Rate 85 03/02/25 23:27 Respiratory Rate 16 03/02/25 23:27 Blood Pressure 132/50 L 03/02/25 23:27 Pulse Oximetry 98 03/02/25 23:27 Oxygen Delivery Nasal Cannula 03/02/25 15:35 Oxygen Flow Rate 3 03/02/25 15:35 <Ryan Fish MD - Last Filed: 03/03/25 03:54> Medical Decision Making MDM Narrative Medical decision making narrative: Patient presented with URI symptoms stating that she has been fighting bilateral pneumonia on and off for the last year. CXR confirmed bilateral pneumonia and suggested further imaging due to not being able to rule out a neoplasm. Patient was diagnosed with hepatocellular carcinoma in November. CT showed airspace opacities within the right upper lobe that were grossly unchanged compared to her last visit in December. Cavitation lesion within this area is unchanged measuring 3.[address] read suggests this may represent atypical pneumonia however malignancy cannot be excluded. No leukocytosis, normal lactic, mildly elevated neutrophils, positive for UTI, and a mild fever of 100.4. Patient dropped to 88% while on 3L while being ambulated to the restroom. Oxygen improved once she was back in bed. Patient admitted to med surg for continued antibiotic therapy and observation. Started on ceftriaxone, azithromycin, and vanc and given Tylenol for mild fever while in ED. Hospitalist recommended getting pulm and ID on board. Prior to going upstairs patient was slightly hypotensive, administered 1000ml NS. <NANCY Membreno - Last Filed: 03/02/25 23:43> Vital Signs Vital Signs: Vital Signs Temperature 38.0 C H 03/02/25 15:15 Pulse Rate 98 03/02/25 15:15 Respiratory Rate 20 03/02/25 15:15 Blood Pressure 103/46 L 03/02/25 15:15 Pulse Oximetry 98 03/02/25 15:15 Oxygen Delivery Nasal Cannula 03/02/25 15:15 Oxygen Flow Rate 3 03/02/25 15:15 Temperature 36.7 C 03/02/25 23:27 Pulse Rate 85 03/02/25 23:27 Respiratory Rate 16 03/02/25 23:27 Blood Pressure 132/50 L 03/02/25 23:27 Pulse Oximetry 98 03/02/25 23:27 Oxygen Delivery Nasal Cannula 03/02/25 15:35 Oxygen Flow Rate 3 03/02/25 15:35 <NANCY Membreno - Last Filed: 03/02/25 23:43> Vital Signs Temperature 38.0 C H 03/02/25 15:15 Pulse Rate 98 03/02/25 15:15 Respiratory Rate 20 03/02/25 15:15 Blood Pressure 103/46 L 03/02/25 15:15 Pulse Oximetry 98 03/02/25 15:15 Oxygen Delivery Nasal Cannula 03/02/25 15:15 Oxygen Flow Rate 3 03/02/25 15:15 Temperature 36.7 C 03/02/25 23:27 Pulse Rate 85 03/02/25 23:27 Respiratory Rate 16 03/02/25 23:27 Blood Pressure 132/50 L 03/02/25 23:27 Pulse Oximetry 98 03/02/25 23:27 Oxygen Delivery Nasal Cannula 03/02/25 15:35 Oxygen Flow Rate 3 03/02/25 15:35 <Ryan Fish MD - Last Filed: 03/03/25 03:54> Lab Data Lab results reviewed: Yes I reviewed the patient's lab results. <NANCY Membreno - Last Filed: 03/02/25 23:43> Result diagrams: 03/02/25 18:24 03/02/25 18:24 <NANCY Membreno - Last Filed: 03/02/25 23:43> Labs: Lab Results 03/02/25 03/02/25 03/02/25 Range/Units 15:47 18:24 19:39 WBC 6.3 (4.5-10.0) K/mm3 RBC 3.85 L (4.2-5.4) M/mm3 Hgb 10.4 L (12.0-15.0) g/dL Hct 32.9 L (37.0-47.0) % MCV 85.5 (80-100) fl MCH 27.0 (26-34) pg MCHC 31.6 L (32-36) g/dl RDW 13.4 (11.5-14.5) % Plt Count 215 (150-375) k/mm3 MPV 8.5 (7.4-10.4) fl Immature Gran % (Auto) 0.5 (0-0.5) % Neut % (Auto) 76.7 H (45.5-73.1) % Lymph % (Auto) 12.1 L (18.3-44.2) % Sumner % (Auto) 9.9 H (2.6-8.5) % Eos % (Auto) 0.5 (0-4.4) % Baso % (Auto) 0.3 (0.2-1.2) % Lymph # (Auto) 0.77 L (0.9-3.2) K/mm3 Sumner # (Auto) 0.6 (0.1-0.6) K/mm3 Eos # (Auto) 0.0 (0-0.3) K/mm3 Baso # (Auto) 0.0 (0.0-0.1) K/mm3 Abs Immat Gran (auto) 0.03 (0.00-0.031) K/mm3 Absolute Neuts (auto) 4.9 (1.3-6.7) K/mm3 Absolute Nucleated RBC 0.000 (0.0-0.012) K/mm3 Nucleated RBC % 0.0 (0.0-0.2) % Sodium 132 L (137-145) mmol/L Potassium 3.8 (3.4-5.0) mmol/L Chloride 96 L (98-107) mmol/L Carbon Dioxide 31 H (22-30) mmol/L Anion Gap 5 (4-12) mmol/L BUN 10 (7-17) mg/dL Creatinine 0.64 L (0.7-1.0) mg/dL Estim Creat Clear Calc 49 ml/min Estimated GFR > 60 (59 - ) Glucose 107 (65-110) mg/dL Lactic Acid 0.8 (0.7-2.0) mmol/L Calcium 8.8 (8.4-10.2) mg/dL Total Bilirubin 0.4 (0.2-1.3) mg/dL AST 25 (14-36) U/L ALT 10 (6-35) U/L Alkaline Phosphatase 133 H (38-126) U/L Total Protein 7.3 (6.3-8.2) g/dL Albumin 3.4 L (3.5-5.1) g/dL Urine Color Yellow (Yellow) Urine Appearance Cloudy H (Clear) Urine pH 6.0 (5.0-9.0) Ur Specific [place] 1.011 (1.001-1.035) Urine Protein Trace (Negative) mg/dL Urine Glucose (UA) Negative (Negative) mg/dL Urine Ketones Negative (Negative) mg/dL Ur Blood (Man) 1+ H (Negative) Urine Nitrate Positive H (Negative) Urine Bilirubin Negative (Negative) Urine Urobilinogen 1.0 (<2.0) mg/dL Leukocyte Esterase Rfl 2+ H (Negative) EARNESTINE/UL Urine RBC 3-5 H (0-2) /hpf Urine WBC >100 H (0-3) /hpf Ur Squamous Epith Cells Few (Few) /hpf Urine Bacteria 4+ H /hpf Urine Casts 0-2 Influenza A (RT-PCR) Negative (Negative) Influenza B (RT-PCR) Negative (Negative) RSV (RT-PCR) Negative (Negative) SARS-CoV-2 RNA (RT-PCR) Negative (Negative) <NANCY Membreno - Last Filed: 03/02/25 23:43> Lab Results 03/02/25 03/02/25 03/02/25 Range/Units 15:47 18:24 19:39 WBC 6.3 (4.5-10.0) K/mm3 RBC 3.85 L (4.2-5.4) M/mm3 Hgb 10.4 L (12.0-15.0) g/dL Hct 32.9 L (37.0-47.0) % MCV 85.5 (80-100) fl MCH 27.0 (26-34) pg MCHC 31.6 L (32-36) g/dl RDW 13.4 (11.5-14.5) % Plt Count 215 (150-375) k/mm3 MPV 8.5 (7.4-10.4) fl Immature Gran % (Auto) 0.5 (0-0.5) % Neut % (Auto) 76.7 H (45.5-73.1) % Lymph % (Auto) 12.1 L (18.3-44.2) % Sumner % (Auto) 9.9 H (2.6-8.5) % Eos % (Auto) 0.5 (0-4.4) % Baso % (Auto) 0.3 (0.2-1.2) % Lymph # (Auto) 0.77 L (0.9-3.2) K/mm3 Sumner # (Auto) 0.6 (0.1-0.6) K/mm3 Eos # (Auto) 0.0 (0-0.3) K/mm3 Baso # (Auto) 0.0 (0.0-0.1) K/mm3 Abs Immat Gran (auto) 0.03 (0.00-0.031) K/mm3 Absolute Neuts (auto) 4.9 (1.3-6.7) K/mm3 Absolute Nucleated RBC 0.000 (0.0-0.012) K/mm3 Nucleated RBC % 0.0 (0.0-0.2) % Sodium 132 L (137-145) mmol/L Potassium 3.8 (3.4-5.0) mmol/L Chloride 96 L (98-107) mmol/L Carbon Dioxide 31 H (22-30) mmol/L Anion Gap 5 (4-12) mmol/L BUN 10 (7-17) mg/dL Creatinine 0.64 L (0.7-1.0) mg/dL Estim Creat Clear Calc 49 ml/min Estimated GFR > 60 (59 - ) Glucose 107 (65-110) mg/dL Lactic Acid 0.8 (0.7-2.0) mmol/L Calcium 8.8 (8.4-10.2) mg/dL Total Bilirubin 0.4 (0.2-1.3) mg/dL AST 25 (14-36) U/L ALT 10 (6-35) U/L Alkaline Phosphatase 133 H (38-126) U/L Total Protein 7.3 (6.3-8.2) g/dL Albumin 3.4 L (3.5-5.1) g/dL Urine Color Yellow (Yellow) Urine Appearance Cloudy H (Clear) Urine pH 6.0 (5.0-9.0) Ur Specific [place] 1.011 (1.001-1.035) Urine Protein Trace (Negative) mg/dL Urine Glucose (UA) Negative (Negative) mg/dL Urine Ketones Negative (Negative) mg/dL Ur Blood (Man) 1+ H (Negative) Urine Nitrate Positive H (Negative) Urine Bilirubin Negative (Negative) Urine Urobilinogen 1.0 (<2.0) mg/dL Leukocyte Esterase Rfl 2+ H (Negative) EARNESTINE/UL Urine RBC 3-5 H (0-2) /hpf Urine WBC >100 H (0-3) /hpf Ur Squamous Epith Cells Few (Few) /hpf Urine Bacteria 4+ H /hpf Urine Casts 0-2 Influenza A (RT-PCR) Negative (Negative) Influenza B (RT-PCR) Negative (Negative) RSV (RT-PCR) Negative (Negative) SARS-CoV-2 RNA (RT-PCR) Negative (Negative) <Ryan A. Torossian, MD - Last Filed: 03/03/25 03:54> Imaging Data Attestation: I personally reviewed and interpreted this imaging study as follows: <NANCY Membreno - Last Filed: 03/02/25 23:43> Radiologist's impression: ITS Impressions Chest X-Ray 03/02/25 16:00 Impression: Bilateral pneumonia. Thickening of the right lung apex incompletely characterized but improved compared to the previous study. If there is concern for neoplasm contrast-enhanced CT is recommended Chest CTA 03/02/25 19:42 IMPRESSION: There is no pulmonary embolism, aortic dissection, pericardial fluid or thoracic aneurysm. Airspace opacities within the right upper lobe is grossly unchanged. Cavitation lesion within this area is unchanged measuring 3.3 x 2.5 cm. This may represent atypical pneumonia however malignancy cannot be excluded. All CT scans at this facility are performed using low dose modulation techniques as appropriate to perform exam including the following: automated exposure control; use of iterative reconstruction technique; adjustment of the mA and/or kV according to patient size (this includes techniques or standardized protocols for targeted exams where dose is matched to indication/reason for exam). <NANCY Membreno - Last Filed: 03/02/25 23:43> Critical Care Time Critical Care Time Critical Care Time: No <NANCY Membreno - Last Filed: 03/02/25 23:43> Yes <Ryan Fish MD - Last Filed: 03/03/25 03:54> Total Critical Care Time: 35 <Ryan Fish MD - Last Filed: 03/03/25 03:54> Discharge Plan Discharge Clinical Impression: Persistent pneumonia, Hypoxemia requiring supplemental oxygen Urinary tract infection Qualifiers: Urinary tract infection type: site unspecified Hematuria presence: with hematuria Qualified Code(s): N39.0 - Urinary tract infection, site not specified <NANCY Membreno - Last Filed: 03/02/25 23:43> Patient Disposition: Still a Patient <NANCY Membreno - Last Filed: 03/02/25 23:43> Condition: Stable <NANCY Membreno - Last Filed: 03/02/25 23:43>
--- OUTSIDE RECORDS SUMMARY | 2025-03-02 18:21 | XMS_ITS | Clinical Summary ---
Author Organization [facility] Address [address] [place] [id number] Care Team Providers Care Pattern Puncher Name Role Phone Tommy Kingian Primary Care [...] on file Legal Sex Female 4:04 AM ENDO TECH Gender Identity Not on file Sexual Orientation [...] Completed 04/24/2018, 01/27/2018 Insurance MEDICARE ID[place] MEDICARE [facility] Address: [address] [address] [place] [address] [facility] Care Teams Pattern Puncher Relationship Specialty Start Date End Date Tommy King DO PCP - General Internal Medicine 09/11/20
--- OUTSIDE RECORDS SUMMARY | 2025-03-02 18:21 | XMS_ITS | Clinical Summary ---
Author Organization [facility] Address [address] [place] [address] Care Team Providers Care Theatrical Scenic Designer Name Role Phone West Pino MD Unavailable Yvan Jaime MD Unavailable [phone] None, Provider MD Primary Care Provider Unavaila [...] bladder) 05/14/2018 Chronic obstructive pulmonary disease 05/05/2013 Resolved Problems Problem Noted Date Diagnosed [...] CDT Gender Identity Female 05/09/2021 3:57 PM YARDING AND FOLDING MACHINE OPERATOR Sexual Orientation Straight 05/09/2021 3: 57 PM YARDING AND FOLDING MACHINE OPERATOR Last Filed Vital Signs Vital Sign Reading Time Taken Comments Blood Pressure 106/60 03/28/2022 9:13 AM YARDING AND FOLDING MACHINE OPERATOR Pulse 80 03/28/2022 9:13 AM YARDING AND FOLDING MACHINE OPERATOR Temperature 36.1 C (97 F) 03/28/2022 9:13 AM YARDING AND FOLDING MACHINE OPERATOR Respiratory Rate 20 03/28/2022 9:13 AM YARDING AND FOLDING MACHINE OPERATOR Oxygen Saturation 94% 03/28/2022 9:13 AM YARDING AND FOLDING MACHINE OPERATOR Inhaled Oxygen Concentration - - Weight 52.6 kg (116 lb) 03/28/2022 9:13 AM YARDING AND FOLDING MACHINE OPERATOR Height 167.6 cm (5' 6) 03/28/2022 9:13 AM YARDING AND FOLDING MACHINE OPERATOR Body Mass Index 18.72 03/28/2022 9:13 AM YARDING AND FOLDING MACHINE OPERATOR Plan of Treatment Health Maintenance Due Date Last Done Comments Colorectal Cancer Screening Colonoscopy (10 Years) 1955 Hepatitis C 07/25/1971 DTaP, Tdap and Td Vaccines (1 - Tdap) 1972 Hepatitis A Vaccines (1 of 2 - Risk 2-dose series) 1972 RSV Immunization or 60+ Years (1 - Risk 60-74 years 1-dose series) 2013 Mammogram Screening 04/16/2017 04/16/2015, 4 Annual Medicare Wellness Visit 2018 Dexa Scan (General) 2018 Pneumococcal Vaccine: 50+ Years (2 of 2 - PPSV23, PCV20, or PCV21) 03/02/2020 01/06/2020 COVID-19 Vaccine (2 - season) 2025 07/09/2020 Influenza Adult (#1) 2025 02/12/2019, 01/13/2018, 02/13/2015, Additional history exists Zoster [...] this topic Medical Devices Implanted Type Area Quality Lab Assoc Device Identifier Shelf Expiration Date Model / Serial / Lot Stimulator Lead Implant-2021 Implanted: by Esau Rose MD (Quantity not on file) Lead Implant Spine Thoracic [employer] - DIV GO LANI 3228 PENTA / / Description:T8-T9 Stent Bard Vowinckel 6fr X 24cm - [id number] Implanted:Qty : 1 on 05/17/2019 by West Pino MD at [facility] Stent Left: Ureter [employer] - DIV C R [employer]ARD INC 05/12/2023 [id number] / / [id number] Stent Bard Vowinckel 6fr X 24cm - [id number] Implanted:Qty : 1 on 05/17/2019 by West Pino MD at [facility] Stent Right: Ureter [employer] - DIV C R [employer] 05/12/2023 [id number] / / [id number] Stent Ureteral Pigtail 6fr 24cm Crv Taper Tip - [id number] Implanted:Qty : 1 on 02/26/2021 by West Pino MD at [facility] Stent Left: Ureter [employer] LANI [id number] 11/28/2023 [id number] / / [id number] Stimulator Implant-2021 Implanted:Qty : 1 on 05/23/2021 by Esau Rose MD Stimulator Implant Back [facility] [facility] - DIV ST FEL[facility]A 3660 PROCLAIM / [id number] / Description:MR CONDITIONAL A T 1.5 T ONLY, NEED REMOTE TO CHECK IMPEDANCE AND TURN OFF STIMULATION, FOLLOW SCAN CONDITIONS IN MOST RECENT MRI TECHNICAL MANUAL Procedures Procedure Name Priority Date/Time Associated Diagnosis Comments MG SCREENING PAIGE DIGI Routine 04/16/2015 3:06 PM YARDING AND FOLDING MACHINE OPERATOR from Last 3 Months or Most Recently Relevant to Health Maintenance Results * MG SCREENING PAIGE DIGI (04/16/2015 3:06 PM YARDING AND FOLDING MACHINE OPERATOR) Anatomical Region Laterality Modality Breast Bilateral Mammography 04/16/2015 3:06 PM YARDING AND FOLDING MACHINE OPERATOR 04/16/2015 3:06 PM YARDING AND FOLDING MACHINE OPERATOR Narrative 04/16/2015 3:24 PM YARDING AND FOLDING MACHINE OPERATOR MELYSSA MCCALL ADMIT/SERVICE DATE: 04/16/15 ACCT: [id number] DISCHARGE DATE: : 1955 SEX: F ORD SITE: [facility] PT TYPE: REG CLI ORDERING MD: MANE RAMIREZ MD STUDY DATE REPORT # ORDER # EXT ORDER ID 04/16/15 [id number] PROC CODE: SCMAMDGB PROCEDURE DESCRIPTION: MG SCREEN [...] - 02/26/2018 MELYSSA MCCALL ADMIT/SERVICE DATE:04/16/15 ACCT: [id number] DISCHARGE DATE: : 1955 SEX: F ORD SITE: [facility] PT TYPE: REG CLI ORDERING MD:MANE RAMIREZ MD STUDY DATE REPORT # ORDER # EXT ORDER ID 04/16/15 [id number] PROC CODE: SCMAMDGB PROCEDURE DESCRIPTION: MG SCREEN [...] Recently Relevant to Health Maintenance Insurance MEDICAID UHC MEDICARE Advance Directives * Full Code (Latest Code Status on File) Date Activated Date Inactivated Comments 02/26/2021 1:01 PM 02/26/2021 3:43 PM Care Teams Theatrical Scenic Designer Relationship Specialty Start Date End Date None, Provider, PCP - General UNKNOWN PHYSICIAN SPECIALTY 03/28/22 West Pino MD UROLOGY 05/03/19 Yvan Jaime MD [address] [place] [id number] Surgeon NEUROLOGICAL SURGERY 05/03/19
--- OUTSIDE RECORDS SUMMARY | 2025-03-02 18:21 | XMS_ITS | Clinical Summary ---
[facility] Address [address] [place] [address] Care Team Providers Care Manager Intel Name Role Phone Unavailable Primary Care Provider [...] Data STL ABSTRACTION Provider, Abstract 12/29/2024 Telephone [facility] Surgical Oncology [place] [id number] [place] [address] Mary Rand MD Needs Appointment 12/28/2024 Telephone [facility] Surgical Oncology [place] [address] [facility] [address] [place] [address] Mary Rand MD Appointment Correction 12/27/2024 External Device Data STL ABSTRACTION Provider, Abstract 12/21/2024 External Device Data STL ABSTRACTION Provider, Abstract 12/20/2024 External Device Data STL ABSTRACTION Provider, Abstract 11/23/2024 8:09 PM CDT - 11/30/2024 11:33 AM CDT Hospital Encounter [facility] Telemetry [address] [place] [address] Marco A Kellogg, Vikas Nelson, Shiv De [...] 2024 01/13/2018 Medical Devices Implanted Type Area Stack Matcher Device Identifier Shelf Expiration Date Model / Serial / Lot Neuro Stimulator Neuro Stimulator GRACE [facility] Drizly 3660 / / Description:Leads - 3228 MRI [...] Final Result from Last 3 Months Insurance [facility] PPO SNP [facility] MEDICAID [place] [facility] PPO [facility] MEDICAID [place] RX OPTUM RX Member Subscriber Plan / Payer (Ef fective 2024-Present) Name:Melyssa Mccall Marilyn Relation to Subscriber:Self Name:Melyssa Mccall Payer ID:Not on file Group ID:[id number] Type:RX Medicare Part D Address: JOHNIE LUCAS RX [place] Medicaid RX PANDYA PLANS (INTERNAL) [facility] Plans Advance Directives For more information, please contact: [phone] * NO CPR (In Event of Cardiopulmonary [...]
--- OUTSIDE RECORDS SUMMARY | 2025-03-02 18:21 | XMS_ITS | Clinical Summary ---
Author Organization [facility] [place] Address [address] [place] [address] Care Team Providers Care Wheel Truing Machine Tender Name Role Phone Tommy King DO Primary Care Provider [phone] Source Comments [facility],non-owned Affiliates and Associated Physician Practices is amultiple site organization consisting of ambulatory clinics and hospital sitesin [place], [place], [place] and [place]. This disclosure is being madepursuant to the Care Everywhere program and may not contain all information available regarding this patient. Last updated 18.[facility] Allergies Active Allergy Reactions Criticality [...] fluticasone propionate (FLONASE) 50 MCG/ACT nasal spray [place] 2 sprays into the nose once daily [...] 36.8 C (98.3 F) 06/12/2021 10:53 AM PRINCIPAL PROGRAMMER Respiratory Rate 18 05/23/2021 12:51 PM PRINCIPAL PROGRAMMER Oxygen Saturation 91% 08/05/2021 9:59 AM CDT [...] this topic Medical Devices Implanted Type Area Desk Editor Device Identifier Shelf Expiration Date Model / Serial / Lot Lead Nrstm 60cm Penta 3mm Pdl 16 [facility] - [id number] Implanted:Qty: 1 on 05/23/2021 by Esau Rose MD at [facility] Back Advanced Neuromodulation Systems 10/19/2022 [id number] / [id number] / Slnt Dura Duraseal Pg Trilysine Amine 5 Implanted:Qty: 1 on 05/23/2021 by Esau Rose MD at [facility] Back Integra [employer] Erendira [id number] / / [id number] Gntr Nrstm 1.95inx2.19in Proclaim Elt - [id number] Implanted:Qty: 1 on 05/23/2021 by Esau Rose MD at [facility] Left: Back [employer] 03/26/2023 3660 / [id number] / Insurance MEDICARE MEDICAID - [place] UHC MANAGED MEDICARE ADV MEDICAID [place] SELF PAY NO INSURANCE Member Subscriber Plan / Payer (Ef fective for All Dates) Name:Melyssa Mccall Member ID:Not on file Relation to Subscriber:Not on file Name:MELYSSA MCCALL Subscriber ID:Not on file (Home) Address: [address] [place] [address] [place] [address] Payer ID:Not on file Group ID:Not on file Type:Self Pay Address: [facility] MANAGED MEDICARE [facility] MEDICARE MEDICAID - OUT OF STATE Care Teams Wheel Truing Machine Tender Relationship Specialty Start Date End Date Tommy King DO PCP - General Internal Medicine 04/23/21
--- OUTSIDE RECORDS SUMMARY | 2025-03-02 18:21 | XMS_ITS | Encounter Summary ---
Author Organization [facility] Address [facility] [place] [address] Care Team Providers Care Avionics Electronics Technician Name Role Phone Milena Dos Santos MD Primary Care Provider [phone] Tommy King DO Primary Care Provider [phone] West Pino MD Unavailable [phone] Yvan Jaime MD Unavailable [phone] None, Provider MD Primary Care Provider Unavaila ble Encounter Details Date Type Department Care Team (Latest Contact Info) Description 03/09/2018 Abstract [facility] Michael Mclean MD Social History Tobacco Use Types Packs/Day Years Used Date Smoking Tobacco: Smoker, Current Status Unknown Comments Unknown Sex and Gender Information Value Date Recorded Sex Assigned at Not on file Legal Sex Female 11:35 PM CDT Gender Identity Female 05/09/2021 3:57 PM BREAKER OFF Sexual Orientation Straight 05/09/2021 3: 57 PM BREAKER OFF documented as of this encounter Plan of Treatment Not on file documented as of this encounter Visit Diagnoses Not on filedocumented in this encounter Care Teams Avionics Electronics Technician Relationship Specialty Start Date End Date Milena Dos Santos MD [address] [place] [address] PCP - General 06/03/16 04/03/19 Tommy King DO [address] [place] [address] PCP - General INTERNAL MEDICINE 04/04/19 03/27/22 None, Provider, PCP - General UNKNOWN PHYSICIAN SPECIALTY 03/28/22 West Pino MD [address] [facility] [address] [place] [address] UROLOGY 05/03/19 Yvan Jaime MD [address] [place] [address] Surgeon NEUROLOGICAL SURGERY 05/03/19 documented as of this encounter
[2025-03-02 18:35] LABS: Hematocrit 32.9 % (37.0-47.0); Hemoglobin 10.4 g/dL (12.0-15.0); Immature Granulocyte Percent A 0.5 % (0-0.5); Lymphocytes Absolute Auto 0.77 K/mm3 (0.9-3.2); Mean Corpuscular HGB Conc 31.6 g/dl (32-36); Mean Corpuscular Hemoglobin 27.0 pg (26-34); Mean Corpuscular Volume 85.5 fl (80-100); Nucleated Red Blood Cells Absolute Auto 0.000 K/mm3 (0.0-0.012); Nucleated Red Blood Cells Perc 0.0 % (0.0-0.2); Platelet Count Result 215 k/mm3 (150-375); Red Blood Count 3.85 M/mm3 (4.2-5.4); White Blood Count 6.3 K/mm3 (4.5-10.0)
[2025-03-02 18:50] LABS: Alanine Aminotransferase 10 U/L (6-35); Albumin Level 3.4 g/dL (3.5-5.1); Alkaline Phosphatase 133 U/L (38-126); Anion Gap 5 mmol/L (4-12); Aspartate Amino Transferase 25 U/L (14-36); Bilirubin,Total 0.4 mg/dL (0.2-1.3); Blood Urea Nitrogen 10 mg/dL (7-17); Calcium 8.8 mg/dL (8.4-10.2); Carbon Dioxide 31 mmol/L (22-30); Chloride 96 mmol/L (98-107); Estimated CRCL calculation 49 ml/min; Estimated Glomerular Filt Rate > 60; Glucose 107 mg/dL (65-110); Potassium 3.8 mmol/L (3.4-5.0); Sodium 132 mmol/L (137-145); Total Protein 7.3 g/dL (6.3-8.2)
--- NOTE | 2025-03-02 19:10 | PC.NURSE ---
Pt ambulated to bathroom on 3L o2 via NC. Upon pts arrival back to room with this RN, pt was noticeably short of breath and was saturating at 88% on 3L o2 via NC.
[2025-03-02] MEDS: ACETAMINOPHEN 325 MG TABLET 650 MG PO (19:38)
[2025-03-02 20:09] LABS: Add Urine Microscopic? YES; Appearance Urine Cloudy (Clear); Glucose Urine UA Negative (Negative); Leukocyte Esterase Ur 2+ LEU/UL (Negative); Nitrate Urine Positive (Negative); Non Pathogenic Casts 0-2; Specific Grav Ur 1.011 (1.001-1.035)
[2025-03-02] MEDS: cefTRIAXone 1 GM in SODIUM CHLORIDE 0.9% IV 50 ML 100 ML IVPB (22:12)
[2025-03-02] MEDS: AZITHROMYCIN IV 500 MG in SODIUM CHLORIDE 0.9% IV 250 ML IVPB (22:13)
[2025-03-02] MEDS: SODIUM CHLORIDE 0.9% IV 1,000 ML 999 ML IV CONT (22:36)
[2025-03-02] MEDS: VANCOMYCIN 1,250 MG/NS 250 ML 1,250 MG/250 ML BAG 166.67 MG IVPB (22:44)
--- NOTE | 2025-03-02 23:28 | ADMGEN ---
This patient, Melyssa Mccall, was admitted to 3 [facility] Surg Room 325-02. Patient/family oriented to hospital policies and general routines including ID bracelet, bed and alarms, visiting hours, pain management, procedures, bathroom and other care routines, personal items, smoking policy, room service/diet, and visiting hours. Information on how to activate the Rapid Response Team has been discussed. Patient/Family are encouraged to report perceived risks to care and to ask questions if they do not understand what they are told or what they should do. patient on 3 LNC, denies pain, c/o slight belly ache.IV abx running on arrival. patient has telemetry box on.
[2025-03-02 23:31] LABS: MRSA (PCR) NOT DETECTED (NOT DETECTE)
[2025-03-03] VITALS (13 sets, daily range): BP systolic 92–119; BP diastolic 40–80; PULSE 60–80; RESP 14–20; TEMP 36.6–37; O2SAT 94–100; BMI 15.5
[2025-03-03 06:20] LABS: Hematocrit 33.1 % (37.0-47.0); Hemoglobin 10.2 g/dL (12.0-15.0); Immature Granulocyte Percent A 0.6 % (0-0.5); Lymphocytes Absolute Auto 0.68 K/mm3 (0.9-3.2); Mean Corpuscular HGB Conc 30.8 g/dl (32-36); Mean Corpuscular Hemoglobin 27.1 pg (26-34); Mean Corpuscular Volume 88.0 fl (80-100); Nucleated Red Blood Cells Absolute Auto 0.000 K/mm3 (0.0-0.012); Nucleated Red Blood Cells Perc 0.0 % (0.0-0.2); Platelet Count Result 191 k/mm3 (150-375); Red Blood Count 3.76 M/mm3 (4.2-5.4); White Blood Count 5.1 K/mm3 (4.5-10.0)
[2025-03-03 06:39] LABS: Alanine Aminotransferase 9 U/L (6-35); Albumin Level 3.2 g/dL (3.5-5.1); Alkaline Phosphatase 120 U/L (38-126); Anion Gap 3 mmol/L (4-12); Aspartate Amino Transferase 20 U/L (14-36); Bilirubin,Total 0.1 mg/dL (0.2-1.3); Blood Urea Nitrogen 11 mg/dL (7-17); Calcium 8.6 mg/dL (8.4-10.2); Carbon Dioxide 33 mmol/L (22-30); Chloride 101 mmol/L (98-107); Estimated CRCL calculation 45 ml/min; Estimated Glomerular Filt Rate > 60; Glucose 103 mg/dL (65-110); Potassium 4.0 mmol/L (3.4-5.0); Sodium 137 mmol/L (137-145); Total Protein 6.8 g/dL (6.3-8.2)
[2025-03-03] MEDS: PANTOPRAZOLE 40 MG TABLET PO ×2 (07:54→16:45)
[2025-03-03] MEDS: METOPROLOL SUCCINATE EXT REL 25 MG TABCR BY MOUTH (07:55)
[2025-03-03] MEDS: GABAPENTIN 300 MG CAPSULE PO ×2 (07:55→20:12)
[2025-03-03] MEDS: FERROUS SULFATE 325 MG TABLET BY MOUTH (07:55)
[2025-03-03] MEDS: LORATADINE 10 MG TABLET PO (07:55)
[2025-03-03] MEDS: oxyCODONE HCL (*CRX) 10 MG TAB SR 12HR PO ×2 (07:55→20:13)
[2025-03-03] MEDS: ASPIRIN 81 MG ENTERIC TABLET PO (07:55)
[2025-03-03] MEDS: guaiFENesin 12 HR 600 MG TABCR 1200 MG PO ×3 (08:00→20:12)
[2025-03-03] MEDS: UMECLIDINIUM/VILANTEROL 62.5-25 MCG ELLIPTA 1 PUFF INHALATION (08:13)
--- NOTE | 2025-03-03 08:35 | PM.IMHP ---
H&P: HPI History of Present Illness Date/Time: 03/03/25 08:35 Chief Complaint: Shortness of breath Narrative: Ms. Phil carreon peak all cases 69 years old female who is a smoker with past medical history of COPD on home 3 L oxygen who was recently diagnosed with hepatocellular carcinoma came to the emergency room with complaint of having sore throat cough shortness of breath going on for the last few days. Patient shortness of breath gradually getting worse so she said the ER. In the emergency room patient was given IV fluids IV antibiotics chest x-ray and CT scan shows possible pneumonia. Patient UA was also found to be abnormal. Patient was transferred to floor for further evaluation treatment. At present time patient still have mild shortness of breath. However denies chest pain. Patient denies any nausea vomiting or diarrhea at present. Patient complains of having been urination. Patient is not in respiratory distress. Review of Systems Review of Systems: All systems reviewed & are unremarkable except as noted in HPI and below (the history and physical examination.) [facility] Past Medical History Medical History Vitamin D deficiency B12 deficiency Mixed incontinence Liana esophagitis Peripheral neuropathy Raynaud disease OSWALD (iron deficiency anemia) Osteopenia RLS (restless legs syndrome) Chronic narcotic use On home O2 Chronic sinusitis Olecranon bursitis, left elbow PSVT (paroxysmal supraventricular tachycardia) Kidney stones Fibromyalgia Rheumatoid arthritis Constipation IBS (irritable bowel syndrome) GERD (gastroesophageal reflux disease) Lumbar radiculopathy Esophageal stricture Status post dilatation ILD (interstitial lung disease) Small amount of interstitial lung disease was seen on base of lungs on chest CT 03/25/2018 which was an abdomen and pelvis CT Essential hypertension Collagen vascular disease Hyperlipidemia, unspecified Anxiety 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, patient unsure of this diagnosis COPD (chronic obstructive pulmonary disease) With severe obstructive disease noted on recent PFTs October 2024 with significant decompensation compared to prior study Tobacco abuse Quit 08/2024 Surgical History Surgical History History of esophagogastroduodenoscopy (EGD) With history of esophageal dilatation of History of colonoscopy with polypectomy History of partial hysterectomy Status post insertion of spinal cord stimulator History of bladder suspension procedure History of appendectomy History of lumbar surgery Spinal cord stimulator implanted 05/23/21 Family History Family History Mother Patient's mother is , Onset Age: 72 Sibling Carcinoma of colon Ovarian cancer Lung cancer Rectal cancer Family history of malignant neoplasm of breast in first degree relative Father Brain aneurysm Cerebrovascular accident, Onset Age: 54 Other Arthritis COPD (chronic obstructive pulmonary disease) High cholesterol Hypertension Lung disease Neuropathy Social History Social History Social History: The patient reports that she has been since 2007 and lives alone. She has 1 son who lives in [place]. She quit smoking in August 2024 of months prior to that she smoked a pack of cigarettes per day for close to 60 years. She denies any significant alcohol use. Code status: DNR/DNI (she would be okay with pressors if needed for blood pressure support) Healthcare power of associate programmer analyst: Cole (son) or Romi (friend) Smoking packs per day: 0.5 Smoking cigarettes per day: 10.0 Years smoked: 60 Smoking pack-years: 30.00 Smoking status: Heavy tobacco smoker Tobacco type: cigarettes Second hand tobacco smoke exposure: Yes Additional smoking assessment comments: Using Nicotine patches AT TIMES Alcohol intake: never Substance use: never Substance use type: does not use Do You Feel Safe in your Home?: Yes Lack of Transportation: No Lack of Food: Never True Current Housing: I Have Housing Concerned About Future Housing: No Difficulty Paying Gas/Electric Bills: No Difficulty Paying for Meds: No Currently Unemployed: No Education: Trade/Vocational Certificate Difficulty w/ Childcare or Family Care: No Living arrangements: alone Occupation/Education: retired Gender identity (if verbalized by the patient): Female Spiritual care concerns: No Meds Home Medications and Allergies Home Medications ?Medication ?Instructions ?Recorded ?Confirmed ?Type aspirin 81 mg tablet,delayed 81 mg PO DAILY 06/02/19 03/02/25 History release (Adult Aspirin Regimen) cyclobenzaprine 5 mg tablet 5 mg PO Q12H 01/05/20 03/02/25 History Held on 12/08/24. Instructions: Hold until you see your PCP. oxycodone myristate 13.5 mg 13.5 mg PO Q12H 11/19/21 03/02/25 History capsule sprinkle extend release 12hr(DON'T CRUSH) (Xtampza ER) solifenacin 10 mg tablet (Vesicare) 5 mg PO HS 02/04/23 03/02/25 History cholecalciferol (vitamin D3) 125 125 mcg PO DAILY 07/24/23 03/02/25 History mcg (5,000 unit) tablet (Vitamin D3) guaifenesin 600 mg tablet, 1,200 mg PO Q12H 07/24/23 03/02/25 History extended release 12 hr (Mucinex) loratadine 10 mg tablet 10 mg PO DAILY 07/24/23 03/02/25 History albuterol sulfate 90 mcg/actuation See Rx Instructions .Route 03/15/24 03/02/25 History aerosol inhaler .COMPLEX PRN Shortness Of Breath Or Wheezing omeprazole 40 mg capsule,delayed 40 mg PO DAILY #90 caps 06/02/24 03/02/25 Rx release albuterol sulfate 2.5 mg/3 mL 2.5 mg (3 mL) inhalation Q4-6H PRN 06/07/24 03/02/25 Rx (0.083 %) solution for nebulization shortness of breath or wheezing #180 mL tiotropium 2.5 mcg-olodaterol 2.5 See Rx Instructions .Route 06/20/24 03/02/25 Rx mcg/actuation mist for inhalation .COMPLEX #4 grams (Stiolto Respimat) gabapentin 300 mg capsule 300 mg PO Q12H #180 caps 08/29/24 03/02/25 Rx ferrous sulfate 325 mg (65 mg See Rx Instructions .Route 10/17/24 03/02/25 Rx iron) tablet (FeroSul) .COMPLEX #30 tabs sennosides 8.6 mg-docusate sodium 2 tab-cap (2 x 8.6-50 mg) PO BID 11/07/24 03/02/25 Rx 50 mg tablet (Senokot-S) PRN Constipation #120 tabs fluticasone propionate 50 See Rx Instructions .Route 11/16/24 03/02/25 Rx mcg/actuation nasal .COMPLEX #48 grams spray,suspension metoprolol succinate 25 mg See Rx Instructions .Route 11/16/24 03/02/25 Rx tablet,extended release 24 hr .COMPLEX #90 tabs moxifloxacin 400 mg tablet 400 mg PO QAM #30 tabs 12/08/24 03/02/25 Rx rifampin 300 mg capsule 600 mg (2 x 300 mg) PO 3XW #60 caps 12/08/24 03/02/25 Rx lovastatin 40 mg tablet 40 mg PO HS #90 tabs 12/28/24 03/02/25 Rx Allergies Allergy/AdvReac Type Severity Reaction Status Date / Time Penicillins Allergy Severe Anaphylaxis Verified 03/02/25 23:30 meperidine Allergy Intermediate Itching Verified 03/02/25 23:30 sulfamethoxazole (From Allergy Intermediate Mouth Verified 03/02/25 23:30 Bactrim) burning/redness trimethoprim (From Bactrim) Allergy Intermediate Mouth Verified 03/02/25 23:30 burning/redness mirtazapine AdvReac Mild Headache Verified 03/02/25 23:30 Vital Signs Vital Signs - 24 hr 03/02/25 15:15 03/02/25 15:35 03/02/25 18:27 Temperature 38.0 C H Pulse Rate 98 87 Respiratory Rate 20 15 Blood Pressure 103/46 L 123/60 Pulse Oximetry 98 98 100 Oxygen Delivery Nasal Cannula Nasal Cannula Oxygen Flow Rate 3 3 03/02/25 19:42 03/02/25 21:28 03/02/25 22:53 Temperature 36.7 C Pulse Rate 82 82 78 Respiratory Rate 19 18 18 Blood Pressure 124/57 L 90/73 L 119/57 L Pulse Oximetry 100 100 100 Oxygen Delivery Oxygen Flow Rate 03/02/25 23:27 03/03/25 04:00 03/03/25 05:50 Temperature 36.7 C 37.0 C Pulse Rate 85 60 76 Respiratory Rate 16 14 Blood Pressure 132/50 L 119/56 L Pulse Oximetry 98 100 Oxygen Delivery Oxygen Flow Rate 03/03/25 07:55 03/03/25 08:19 Temperature Pulse Rate 80 Respiratory Rate Blood Pressure Pulse Oximetry 94 Oxygen Delivery Nasal Cannula Oxygen Flow Rate 3 Exam Narrative: GENERAL: Cachectic, poorly nourished, no acute distress. HEAD: Normocephalic, atraumatic. EYES: PERRLA and EOMI. ENT: Nares clear, no rhinorrhea or epistaxis. Mucous membranes moist. Oropharynx without tonsillar hypertrophy exudate or other lesions. Bilateral TMs pearly ocasio non-bulging NECK: Supple. No adenopathy or masses. No carotid bruits or JVD CHEST: Decreased lung sounds in all hill. No respiratory distress, 3L at baseline. No wheezes rales or rhonchi HEART: Regular rate and rhythm. No murmur heard. Normal peripheral pulses. ABDOMEN: Suprapubic tenderness and decreased bowel sounds in all quadrants. EXTREMITIES: Normal range of motion. No edema. SKIN: Warm, dry, no rash. NEURO: No focal deficits. Alert and oriented x3. PSYCH: Normal mood and affect H&P: Results Labs Labs: Short CBC 03/02/25 03/03/25 Range/Units 18:24 05:59 WBC 6.3 5.1 (4.5-10.0) K/mm3 Hgb 10.4 L 10.2 L (12.0-15.0) g/dL Hct 32.9 L 33.1 L (37.0-47.0) % Plt Count 215 191 (150-375) k/mm3 BMP 03/02/25 03/03/25 18:24 05:59 Sodium 132 L 137 Potassium 3.8 4.0 Chloride 96 L 101 Carbon Dioxide 31 H 33 H BUN 10 11 Creatinine 0.64 L 0.70 Glucose 107 103 Calcium 8.8 8.6 Liver Function 03/02/25 03/03/25 Range/Units 18:24 05:59 Total Bilirubin 0.4 0.1 L (0.2-1.3) mg/dL AST 25 20 (14-36) U/L ALT 10 9 (6-35) U/L Alkaline Phosphatase 133 H 120 (38-126) U/L Albumin 3.4 L 3.2 L (3.5-5.1) g/dL Urine 03/02/25 Range/Units 19:39 Urine Color Yellow (Yellow) Urine Appearance Cloudy H (Clear) Urine pH 6.0 (5.0-9.0) Ur Specific [place] 1.011 (1.001-1.035) Urine Protein Trace (Negative) mg/dL Urine Glucose (UA) Negative (Negative) mg/dL Assessment and Plan Assessment and plan (1) Essential hypertension: Code(s): I10 - Essential (primary) hypertension Status: Chronic Assessment and Plan: Stable on current medications will continue current treatment. (2) Urinary tract infection: Qualifiers: Hematuria presence: with hematuria Urinary tract infection type: site unspecified Qualified Code(s): N39.0 - Urinary tract infection, site not specified; R31.9 - Hematuria, unspecified Code(s): N39.0 - Urinary tract infection, site not specified Status: Acute Assessment and Plan: Blood culture and urine culture. Continue with IV antibiotic (3) COPD (chronic obstructive pulmonary disease): Qualifiers: COPD type: unspecified COPD Qualified Code(s): J44.9 - Chronic obstructive pulmonary disease, unspecified Code(s): J44.9 - Chronic obstructive pulmonary disease, unspecified Status: Chronic Assessment and Plan: Continue with oxygen IV antibiotic. Pulmonary consult (4) Right upper lobe pneumonia: Code(s): J18.9 - Pneumonia, unspecified organism Status: Acute Assessment and Plan: Continue with IV antibiotics. Follow closely. Pulmonary consult (5) Cavitary lesion of lung: Code(s): J98.4 - Other disorders of lung Status: Acute Assessment and Plan: Pulmonary consult. Continue IV antibiotics Plan Patient is admitted as a full admission. Will follow culture and continue with antibiotics. Pulmonary consult. DVT prophylaxis pharmacological ordered. Quality VTE Prophylaxis VTE prophylaxis: pharmacologic ordered
[2025-03-03 08:45] LABS: NT Pro B Type Natriuretic Pept 122 pg/mL (19.9-100)
[2025-03-03 08:59] LABS: CRP 11.4 mg/dL (<1.0)
[2025-03-03] MEDS: ENOXAPARIN 40 MG/0.4 ML SYRINGE SUB-Q (09:19)
--- NOTE | 2025-03-03 10:11 | PCRCNOTE ---
STAT ABG ordered but Dr. Newman is in room and has weaned Fi02. Asked to wait to get ABG.
--- NOTE | 2025-03-03 10:38 | PCRCNOTE ---
difficult stick. Asking another RT to collect ABG.
[2025-03-03 11:00] LABS: Alveolar/Arterial O2 Gradient 41.1 mmHg; Fractional Inspired Oxygen 24 %; HCO3 ABG 30.3 mEq/l (22.0-26.0); Oxygen Content ABG 14.0 %vol (16.0-22.0); Oxygen Saturation ABG 94.2 % (95.0-100.0); PCO2 ABG 49.5 mmHg (35.0-45.0); PO2 ABG 71.1 mmHg (80.0-100.0); PO2 FiO2 Ratio Arterial Blood 2.96 %
[2025-03-03 11:08] LABS: Modified Allen's Test Pass; Site Drawn RIGHT RADIAL
[2025-03-03 11:09] LABS: Liters per Minute 1.0 LPM
--- NOTE | 2025-03-03 11:10 | PCRCNOTE ---
called Dr. Mon per his request with ABG results. No changes made.
[2025-03-03] MEDS: FLUTICASONE PROPIONATE 0.05% NA SPR 16 GM BTL (*BKC) 1 SPRAY NASAL (11:21)
[2025-03-03 11:33] LABS: Procalcitonin 0.2 ng/mL
--- NOTE | 2025-03-03 12:01 | PM.CNPUL ---
Assessment and Plan Assessment and plan (1) Mycobacterial disease, pulmonary: Code(s): A31.0 - Pulmonary mycobacterial infection Status: Acute Assessment and Plan: 10/21/2024: CT scan of the chest reviewed with radiologist and compared to 10/2023, 08/02/2024, 08/31/2024 with worsening right upper lobe low-attenuation lung nodule consistent with atelectasis, mucous retention or pneumonia. 11/01/2024 through 11/07/2024: Admitted to [facility] with a CT scan chest now demonstrating larger right upper lobe consolidation with cavitary lung nodules. Liver biopsy returned for hepatocellular. plan per oncology was for patient to get strong enough to undergo outpatient chemotherapy. 11/03/2024: QuantiFERON gold negative. serologies on 11/01/2024 anti CCP less than 16 11/19/2024 through 11/23/2024: Admitted to [facility] with shortness of breath. CT scan of the chest with worsening right upper lobe infiltrate and progressive cavitary lesions. Treated with pulmonary hygiene, antibiotics, oxygen. 11/22/2024 underwent bronchoscopy to assess for endobronchial lesion or cancer and there was no obstructing mass. Secretions were removed. Biopsies were obtained and were negative for malignancy. Given patient's lack of response she was transferred to [facility] for higher level of care pulmonary, infectious disease and oncology evaluation . Dr. Leonela samson. Transferred on 11/23/2024. 11/24/24: bronchial wash: AFB smear 1+ positive with 4-36 AFB per 1000 field at 400 X. 12/04/2024: Apparently discharged from [facility] on 11/30/24 on 2 antibiotics, Perhaps linezolid. does not sound like any additional procedures were obtained. Presented with weakness and recent falls. She had bilateral wheezes. Room air saturations 97%. 2 L nasal cannula saturation 94%. Temperature was 101.4?. White blood cell count 11.4, creatinine 1.07. Procalcitonin 0.2. MRSA nasal swab PCR negative CT chest abdomen pelvis with unchanged right hepatic lobe carcinoma, severe emphysema worsening right upper lobe consolidations with some new progression in the right lower lobe. Empirically started on cefepime, doxycycline and vancomycin. 12/05/24: Seen by infectious disease consult later in the day and started on azithromycin, moxifloxacin and rifampin. Sputums collected on 12/06/2024 was negative for AFB smear and culture at 6 weeks. Sputum 12/07/2024 was negative smear and negative culture at 6 weeks. Sputum on 12/08/2024 is negative smear culture says pending. Today the patient tells me that she has had a slow continual decline since 12/08/2024. She took her medicines until the prescriptions ran out and currently does not know if she is taking azithromycin, moxifloxacin or rifampin. She tells me she has had no contact or follow up with Infectious Disease team. 03/03/25: Patient tells me she has a continued slow decline since 12/08/2024 with daily night sweats with wet clothes, cough and phlegm production, low activity. CT scan of the chest compared with 12/04/2022 shows improved consolidation in the anterior and posterior segments of the right upper lobe with continued right upper lobe lateral consolidations with no change. Continued right upper lobe thick-walled cavity with no change. Right lower lobe infiltrate had improved and the nodule in the right lower lobe it decreased from 19 mm to 13 mm. Plan: Infectious Disease consult has been placed for recommendation regarding treatment of possible AFB lung disease. (2) COPD (chronic obstructive pulmonary disease): Qualifiers: COPD type: unspecified COPD Qualified Code(s): J44.9 - Chronic obstructive pulmonary disease, unspecified Code(s): J44.9 - Chronic obstructive pulmonary disease, unspecified Status: Chronic Assessment and Plan: GOLD grade 2 group E COPD Patient with 90 pack year tobacco use, Currently smoking 1-10 cigarettes a day. 11/23/2019: Alpha 1 anti trypsin genotype MM. ?Alpha 1 anti trypsin level 160, normal. PFTs 12/14/2019 with an FEV1 of 1.49 L, 60% predicted, ratio 49% predicted, positive bronchodilator response, air trapping and severely decreased DLCO that remain moderately decreased when adjusted for alveolar volume. CT scan of the chest 08/31/2024 and 01/15/2021 with severe panlobular emphysema all lung hill. Chronic hypoxemic respiratory failure prescribed no oxygen at rest, 2 L with activity and 3 L with sleep. Patient is using 3 L continuously. Chronic hypercarbic respiratory failure and she cannot tolerate home BiPAP.. maintained on Stiolto Respimat. She did not have any help with a trial of breztri as an outpatient. 08/31/2024, white blood cell count 8.1, eosinophils 3% equals 243 per micro L. 03/02/2025: White blood cell count 6.3, eosinophils 0.5% equals 32/uL. 03/03/2025: Patient says she is unchanged from yesterday. Her breathing maybe is a little bit better. She continues to have cough with minimal phlegm production. When I enter the room she was on 3 L nasal cannula saturations 100%. I decreased her to 1 L nasal cannula her saturations were 97%. White blood cell count 5.1, creatinine 0.7. CRP 11.4, procalcitonin 0.2, BNP 122. Patient had an ABG on 1 L with saturation 7.40/49.5/71. Currently patient has no evidence of a COPD exacerbation. Patient was started on vancomycin, ceftriaxone and azithromycin. Plan: Patient has difficulty expectorating her phlegm. I will place her on DuoNebs q.6 hours, Mucomyst q.6 hours, guaifenesin 1200 mg p.o. q.day and Cornet flutter valve. Continue Claritin. Her CT scan is improved and I am not convinced there is evidence of a new bacterial infection. Will defer on antibiotics to ID team. Goal saturation 90-94%. (3) Chronic respiratory failure with hypoxia and hypercapnia: Code(s): J96.11 - Chronic respiratory failure with hypoxia; J96.12 - Chronic respiratory failure with hypercapnia Status: Chronic Assessment and Plan: Patient with chronic hypoxemic respiratory failure prescribed no oxygen at rest, 2 L with activity and 3 L with sleep. Patient tells me she is using 3 L continuously. She is prescribed a noninvasive ventilator With BiPAP at night through [facility]. last admission, Patient tells me she is no longer using the noninvasive ventilator at night and would like it removed from her house. 12/06/24: Patient had an overnight oximetry on 3 L with recording duration of 7 hours and 20 minutes, average saturation 97%, low saturation 85%, time with saturation less than or equal to 88% was 0 minutes. Oxygen desaturation index 1.0. 03/03/25: When I enter the room she was on 3 L nasal cannula saturations 100%. I decreased her to 1 L nasal cannula her saturations were 97%. Current ABG on 1 L 7.40/49.5/71.1. plan: Goal saturation 90-94%. Wean oxygen accordingly during the day. Patient should wear 3 L nasal cannula at night. Currently she is on 1 L. no evidence of hypercarbic respiratory failure that would require BiPAP her noninvasive ventilation at this time. (4) Hepatocellular carcinoma: Code(s): C22.0 - Liver cell carcinoma Status: Acute Assessment and Plan: 11/03/2024: Needle biopsy of a liver demonstrated hepatocellular carcinoma. Patient is followed by Oncology with an ultimate plan of her getting strong enough to tolerate outpatient chemotherapy. 03/03/25: Patient has had no oncology follow-up. Will discuss with hospitalist regarding imaging to assess if the hepatocellular carcinoma is worse now and the need for oncology follow-up as an inpatient. History of Present Illness History of Present Illness Consult date: 03/03/25 Chief complaint: Bilateral pneumonia and UTI Narrative: 69-year-old with a history of hypertension, hyperlipidemia, SVT, the esophageal ring status post dilation, chronic sinusitis, GOLD grade 2 group E COPD on home oxygen and NIV. Patient admitted to [facility] from 08/31/2024 through 09/07/2024 for COPD and pneumonia with hypercarbic respiratory failure. ABG on 08/02/2024 of 7.45/60/128 on 2 L nasal cannula and a blood gas on 09/06/2023 of 7.34/71/ 63 on 2 L nasal cannula.? Patient was treated for COPD and pneumonia with Levaquin, Flagyl, DuoNebs and guaifenesin.? For her hypercarbic respiratory failure she had [facility] insurance and was approved for BiPAP no rate, IPAP 9, EPAP 4 in 2 L bleed in.? This provided adequate oxygenation by overnight oximetry and ABG at the end of the night of 7.40/52/64.? She was discharged on Levaquin for 7 days, Flagyl for 5 days, Stiolto Respimat and rescue albuterol.? She was to continue guaifenesin 600 p.o. b.i.d., Cornet flutter valve and home O2 assessment demonstrated she required 2 L at rest and 2 L with activity.? Plan was for follow-up in the Pulmonary Clinic in 4 weeks for compliance check and to reassess her for CT scan to follow her worsening right upper lobe infiltrate. 09/20/2024: EGD esophagitis was normal.? Nonobstructing ring with dilatation. 09/29/2024: PCP office visit note.? 2 L nasal cannula saturation 93%.? Weight 90 lb.? Respiratory medicines include guaifenesin 600 mg p.o. q.12 hours.? Albuterol inhaler p.r.n., albuterol nebulizer p.r.n., Stiolto Respimat, Flonase nasal spray 1 b.i.d. p.r.n. Clinic on 10/06/2024: stated she had done well and back to her baseline breathing 95% no normal walking more. She could walk 1 block. Had gained 1 lb. Was on Stiolto Respimat wearing 2 L at rest with saturations 92. 2 L with activity saturations ranging 66-90 and 2 L bleed in at night. Continue to smoke 5 cigarettes a day. Cat score was 19. Download compliance with poor compliance at 40% and no usage after 09/26/2024. 10/21/2024: CT scan of the chest reviewed with radiologist and compared to 10/2023, 08/02/2024, 08/31/2024 with worsening right upper lobe low-attenuation lung nodule consistent with atelectasis, mucous retention or pneumonia. PFTs demonstrated severe obstructive abnormality consistent with gold grade 3 group E COPD. with a significant decrease in FVC, FEV1 and diffusing capacity compared to 12/14/2019 and a significant increase in residual volume and functional residual capacity all consistent with worsening COPD. 6 minute walk required no oxygen at rest and 2 L with activity. 11/01/2024 through 11/07/2024: Admitted to [facility] with a CT scan chest now demonstrating larger right upper lobe consolidation with cavitary lung nodules. Liver biopsy returned for hepatocellular. plan per oncology was for patient to get strong enough to undergo outpatient chemotherapy. 11/03/2024: QuantiFERON gold negative. serologies on 11/01/2024 anti CCP less than 16 11/19/2024 through 11/23/2024: Admitted to [facility] with shortness of breath. CT scan of the chest with worsening right upper lobe infiltrate and progressive cavitary lesions. Treated with pulmonary hygiene, antibiotics, oxygen. 11/22/2024 underwent bronchoscopy to assess for endobronchial lesion or cancer and there was no obstructing mass. Secretions were removed. Biopsies were obtained and were negative for malignancy. Given patient's lack of response she was transferred to [facility] for higher level of care pulmonary and oncology treatments. Dr. Leonela samson. Transferred on 11/23/2024. 11/20/2024 IgG mycoplasma titer 1138 with negative mycoplasma PCR. 11/24/24: bronchial wash: AFB smear 1+ positive with 4-36 AFB per 1000 field at 400 X. . 12/04/2024 Through 12/08/2024: Admitted to [facility]: Apparently discharged from [facility] on 11/30/24 on 2 antibiotics, Perhaps linezolid. does not sound like any additional procedures were obtained. Presented with weakness and recent falls. She had bilateral wheezes. Room air saturations 97%. 2 L nasal cannula saturation 94%. Temperature was 101.4?. White blood cell count 11.4, creatinine 1.07. Procalcitonin 0.2. MRSA nasal swab PCR negative CT chest abdomen pelvis with unchanged right hepatic lobe carcinoma, severe emphysema worsening right upper lobe consolidations with some new progression in the right lower lobe. Empirically started on cefepime, doxycycline and vancomycin. seen by infectious disease consult and started on azithromycin, moxifloxacin and rifampin. No evidence of COPD exacerbation. Could not tolerate nocturnal BiPAP. Too debilitated for hepatocellular carcinoma chemotherapy. On 12/08/2024 she was feeling better than she had in the last month with no shortness of breath at rest green phlegm production was improving. Room air saturations were 93%. discharged on azithromycin 500 3 times a week, moxifloxacin 400 mg p.o. q.day, rifampin 300 mg 3 times a week. Stiolto Respimat 2.5-2.5 2 puffs q.day, Flonase, rescue albuterol. Sputums collected on 12/06/2024 was negative for AFB smear and culture at 6 weeks. Sputum 12/07/2024 was negative smear and negative culture at 6 weeks. Sputum on 12/08/2024 is negative smear culture says pending. Today the patient tells me that she has had a slow continual decline since 12/08/2024. She took her medicines until the prescriptions ran out and currently does not know if she is taking azithromycin, moxifloxacin or rifampin. She tells me she has had no contact or follow up with Infectious Disease team. She tells me she has had no contact or follow up with Oncology team for her pad a cellular carcinoma. The patient tells me she has nightly night sweats where her clothes are wet, worsening cough with phlegm, she is fatigued with low energy and has dyspnea on exertion room to room. These symptoms progressed and she presented to the emergency department on 03/02/2025. Blood pressure 103/46, heart rate 98, respirations 20, 3 L nasal cannula saturation 98%. White blood cell count 6.3 with eosinophils 0.5%. Creatinine 0.64, lactic acid 0.8, MRSA swab negative, COVID influenza are her SV RT PCR assay negative, UA consistent with a UTI not positive nitrates, leukocyte esterase 2+, greater than without 100 white blood cells, 4+ bacteria. CT scan of the chest compared with 12/04/2022 shows improved consolidation in the anterior and posterior segments of the right upper lobe with continued right upper lobe lateral consolidations with no change. Continued right upper lobe thick-walled cavity with no change. Right lower lobe infiltrate had improved and the nodule in the right lower lobe it decreased from 19 mm to 13 mm. Patient was started on vancomycin, ceftriaxone and azithromycin. 03/03/2025: Patient says she is unchanged from yesterday. Her breathing maybe is a little bit better. She continues to have cough with minimal phlegm production. When I enter the room she was on 3 L nasal cannula saturations 100%. I decreased her to 1 L nasal cannula her saturations were 97%. White blood cell count 5.1, creatinine 0.7. CRP 11.4, procalcitonin 0.2, BNP 122. Patient had an ABG on 1 L with saturation 7.40/49.5/71. DATA: 03/02/25: CTA chest PE protocol HISTORY:SOB, cancer, abnormal chest xr . COMPARISON: 12/04/2024 TECHNIQUE: Following the noncontrasted administrative support manager, axial images of the thorax were obtained following infusion of 100 cc of Isovue 370. Post-processing on an independent workstation was performed to reconstruct MIP images for evaluation of the thoracic vasculature. FINDINGS: There is no pulmonary embolism, aortic dissection, thoracic aneurysm or pericardial fluid. Diffuse centrilobular emphysema and bronchiectasis particularly in the right upper lobe is again noted. There are airspace opacities within the right upper lobe grossly unchanged. There is cavitation like lesion within this area measuring 3.3 x 2.5 cm which is unchanged. No pleural effusion or pneumothorax is noted. There is no axillary, mediastinal or hilar adenopathy. Limited evaluation of the upper abdomen demonstrates no gross abnormalities. Review of bone windows demonstrates no osteoblastic or lytic lesions. IMPRESSION: There is no pulmonary embolism, aortic dissection, pericardial fluid or thoracic aneurysm. Airspace opacities within the right upper lobe is grossly unchanged. Cavitation lesion within this area is unchanged measuring 3.3 x 2.5 cm. This may represent atypical pneumonia however malignancy cannot be excluded. 12/04/2024: EXAMINATION: CT chest abdomen pelvis wo con INDICATION: Pneumonia. Trauma. COMPARISON: Chest CT dated 11/19/[address] abdomen and pelvis dated 08/02/2024 FINDINGS: CHEST CT: Severe emphysema with biapical calcified pleural parenchymal scarring. Unchanged region of consolidation with air bronchograms in the right upper lobe which has developed since 08/02/2024 consistent with pneumonia. Again seen is septal line thickening in the right middle and lower lobes with additional patchy regions of consolidation at the basilar right lower lobe consistent with pneumonia. There are few scattered small calcified pulmonary nodules in both lungs along with calcified mediastinal lymph nodes consistent with old granulomatous disease. No pleural effusion. Heart size normal. Atherosclerotic coronary artery calcification. No pericardial effusion. T7 laminectomy and spinal stimulator lead position in the posterior central canal at the level of T6-T7. Chronic mild anterior wedging of T7. ABDOMEN/PELVIS CT: Splenic calcification consistent with old granulomatous disease. Very subtle 2.7 x 1.5 cm Right hepatic lobe mass along the gallbladder fossa consistent with biopsy-proven hepatocellular carcinoma The gallbladder, pancreas and bilateral adrenal glands are normal. Mild cortical atrophy at the lower pole of the right kidney likely sequela prior infection or infarction. Bilateral nonobstructing nephrolithiasis with a couple 1-2 mm stones in the right kidney and 14 x 4 mm stone at the left kidney. Large amount of liquid appearing stool suggestive of diarrhea. No bowel obstruction. The appendix is not visualized. No pericecal inflammatory change to suggest acute appendicitis. Bladder is normal. The uterus is not identified and has likely been surgically resected. No free intraperitoneal gas or fluid. No pathologically enlarged abdominal or pelvic lymphadenopathy. Mild lumbar spondylosis. IMPRESSION: 1. Severe emphysema with multifocal pneumonia in the right lung most prominent in the upper lobe with some interval progression in the right lower lobe. 2. Unchanged 2.7 x 1.5 cm subtle mass in the right hepatic lobe consistent with biopsy-proven hepatocellular carcinoma. 3. Bilateral nonobstructing nephrolithiasis. 4. Large amount of stool throughout the colon suggest diarrhea. 09/07/2024: Home O2 assessment: Rest room air saturation 86%. Rest nasal cannula 1 L saturation 88%. Rest nasal cannula 2 L saturation 91%. Exercise nasal cannula 2 L saturation 90%. Patient requires 2 L with rest and 2 L with activity. 09/07/24: Patient wore her home BiPAP no rate, IPAP 9, EPAP 4 and 2 L bleed in with an over the mouth under the nose mask. She said she wore the mask for 6-1/2 hours and slept well and feels refreshed this morning. Overnight oximetry on these settings with recording duration of 6 hours and 52 minutes, average saturation 92%. Low saturation 87%. Time with saturation less than or equal to 88% was 3 minutes. Oxygen desaturation index 0.6. ?Patient had ABG at the end of the night on these settings with a pH of 7.40/52/64. 08/31/24: EXAMINATION: CTA chest PE protocol DATE: 08/31/2024 11:02 INDICATION: Shortness of breath TECHNIQUE: Computed tomography (CT) pulmonary angiogram of the chest was performed with 100 mL Omnipaque-350 intravenous contrast. Additional 3D reconstructions utilizing coronal maximum intensity projection (MIP) were performed. Automated exposure control and iterative reconstruction technique were employed. The dose-length product was 151.66 mGy-cm. COMPARISON: 08/02/2024 and 12/08/2023 FINDINGS: No pulmonary embolism. Severe emphysema with chronic partially calcified by apical pleural-parenchymal scarring. There is been some progression of low-attenuation fluid/mucus within several of the cystic airspace in the right upper lobe which are new since 12/08/2023 consistent with pneumonia. Unchanged chronic reticulonodular opacities with a few small calcified nodules in the basilar right middle lobe and lingula consistent with sequela of chronic pneumonia. No pleural effusion. Heart size is normal. Atherosclerotic coronary artery calcific lesion. No pericardial effusion. Thoracic aorta is normal in caliber. No pathologically enlarged thoracic lymphadenopathy. 1 cm cyst and 13 x 5 x 3 mm nonobstructing stone at the upper pole the left kidney. There is scattered cortical scarring in the right kidney consistent with sequela of prior infection or infarction. Additional 2 mm nonobstructing stone at the lower pole of the right kidney. Mild thoracic spondylosis with chronic minimal anterior wedging of a few mid and lower thoracic vertebral bodies. Spinal stimulator leads which terminate at the posterior central canal at the level of T6-T7. IMPRESSION: 1. No pulmonary embolism. 2. Severe emphysema with right upper lobe pneumonia. 3. Bilateral nonobstructing nephrolithiasis. --------- 10/27/2022 EXAMINATION: CT lung screening INDICATION: Personal history of nicotine dependence, current smoker with 50 pack year history COMPARISON: 10/25/2021 FINDINGS: There is severe emphysema. There is a stable 5 mm nodule of the left upper lobe. There is stable 3 mm nodule of the right upper lobe. The lungs are free of acute opacities. No pleural effusion or pneumothorax. There is scarring and calcification of the lung apices. Calcified coronary artery atherosclerosis is noted. No pathologically enlarged thoracic lymph nodes are identified. The heart size is normal. There is mild thoracic spondylosis. IMPRESSION: 1. Lung-RADS category 2: Benign appearance or behavior. Continue annual screening with noncontrast low-dose chest CT in 12 months. 12/19/2019 PULMONARY FUNCTION TESTS Results are reliable and reproducible. Spirometry: FEV1 is 60%, moderately decreased, 1.49 L. FVC is 90% normal. Decreased FEV1% consistent with airflow obstruction. . There is a 14% increase in FEV1 with bronchodilator, 200 ml, which is significant. Lung volumes: Total lung capacity 107% normal. RV/TLC increased 48% and consistent with air trapping. Airway resistance increased 336%. Diffusion: DLCO moderately reduced 35%. Flow volume loop: Scooping of the expiratory limb. IMPRESSION: Moderate obstructive ventilatory impairment with good response to bronchodilator, air trapping, moderate diffusion impairment. This is consistent with COPD. 11/23/2019: Alpha 1 anti trypsin genotype MM. ?Alpha 1 anti trypsin level 160, normal. Review of Systems Constitutional: Constitutional: Reports no additional constitutional complaints Eyes: Eyes: Reports no additional eye complaints ENT: Reports system reviewed and no additional complaints, except as documented Cardiovascular: Cardiovascular: Reports no additional cardiovascular complaints Respiratory: Respiratory: Reports no additional respiratory complaints Gastrointestinal: Gastrointestinal: Reports no additional gastrointestinal complaints Musculoskeletal: Musculoskeletal: Reports no additional musculoskeletal complaints Neurologic: Reports system reviewed and no additional complaints, except as documented Psychiatric: Psychiatric: Reports no additional psychiatric complaints Endocrine: Endocrine: Reports no additional endocrine complaints Hematologic/Lymphatic: Hematologic/Lymphatic: Reports no additional hematologic/lymphatic complaints Allergic/Immunologic: Allergic/Immunologic: Reports no additional allergic/immunologic complaints [facility] Past Medical History Medical History Vitamin D deficiency B12 deficiency Mixed incontinence Liana esophagitis Peripheral neuropathy Raynaud disease OSWALD (iron deficiency anemia) Osteopenia RLS (restless legs syndrome) Chronic narcotic use On home O2 Chronic sinusitis Olecranon bursitis, left elbow PSVT (paroxysmal supraventricular tachycardia) Kidney stones Fibromyalgia Rheumatoid arthritis Constipation IBS (irritable bowel syndrome) GERD (gastroesophageal reflux disease) Lumbar radiculopathy Esophageal stricture Status post dilatation ILD (interstitial lung disease) Small amount of interstitial lung disease was seen on base of lungs on chest CT 03/25/2018 which was an abdomen and pelvis CT Essential hypertension Collagen vascular disease Hyperlipidemia, unspecified Anxiety 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, patient unsure of this diagnosis COPD (chronic obstructive pulmonary disease) With severe obstructive disease noted on recent PFTs October 2024 with significant decompensation compared to prior study Tobacco abuse Quit 08/2024 Surgical History Surgical History History of esophagogastroduodenoscopy (EGD) With history of esophageal dilatation of History of colonoscopy with polypectomy History of partial hysterectomy Status post insertion of spinal cord stimulator History of bladder suspension procedure History of appendectomy History of lumbar surgery Spinal cord stimulator implanted 05/23/21 Family History Family History Mother Patient's mother is , Onset Age: 72 Sibling Carcinoma of colon Ovarian cancer Lung cancer Rectal cancer Family history of malignant neoplasm of breast in first degree relative Father Brain aneurysm Cerebrovascular accident, Onset Age: 54 Other Arthritis COPD (chronic obstructive pulmonary disease) High cholesterol Hypertension Lung disease Neuropathy Social History Social History Social History: The patient reports that she has been since 2007 and lives alone. She has 1 son who lives in [place]. She quit smoking in August 2024 of months prior to that she smoked a pack of cigarettes per day for close to 60 years. She denies any significant alcohol use. Code status: DNR/DNI (she would be okay with pressors if needed for blood pressure support) Healthcare power of mergers and acquisitions attorney: Cole (son) or Romi (friend) Smoking packs per day: 0.5 Smoking cigarettes per day: 10.0 Years smoked: 60 Smoking pack-years: 30.00 Smoking status: Heavy tobacco smoker Tobacco type: cigarettes Second hand tobacco smoke exposure: Yes Additional smoking assessment comments: Using Nicotine patches AT TIMES Alcohol intake: never Substance use: never Substance use type: does not use Do You Feel Safe in your Home?: Yes Lack of Transportation: No Lack of Food: Never True Current Housing: I Have Housing Concerned About Future Housing: No Difficulty Paying Gas/Electric Bills: No Difficulty Paying for Meds: No Currently Unemployed: No Education: Trade/Vocational Certificate Difficulty w/ Childcare or Family Care: No Living arrangements: alone Occupation/Education: retired Gender identity (if verbalized by the patient): Female Spiritual care concerns: No Meds Home Medications and Allergies Home Medications ?Medication ?Instructions ?Recorded ?Confirmed ?Type aspirin 81 mg tablet,delayed 81 mg PO DAILY 06/02/19 03/02/25 History release (Adult Aspirin Regimen) cyclobenzaprine 5 mg tablet 5 mg PO Q12H 01/05/20 03/02/25 History Held on 12/08/24. Instructions: Hold until you see your PCP. oxycodone myristate 13.5 mg 13.5 mg PO Q12H 11/19/21 03/02/25 History capsule sprinkle extend release 12hr(DON'T CRUSH) (Xtampza ER) solifenacin 10 mg tablet (Vesicare) 5 mg PO HS 02/04/23 03/02/25 History cholecalciferol (vitamin D3) 125 125 mcg PO DAILY 07/24/23 03/02/25 History mcg (5,000 unit) tablet (Vitamin D3) guaifenesin 600 mg tablet, 1,200 mg PO Q12H 07/24/23 03/02/25 History extended release 12 hr (Mucinex) loratadine 10 mg tablet 10 mg PO DAILY 07/24/23 03/02/25 History albuterol sulfate 90 mcg/actuation See Rx Instructions .Route 03/15/24 03/02/25 History aerosol inhaler .COMPLEX PRN Shortness Of Breath Or Wheezing omeprazole 40 mg capsule,delayed 40 mg PO DAILY #90 caps 06/02/24 03/02/25 Rx release albuterol sulfate 2.5 mg/3 mL 2.5 mg (3 mL) inhalation Q4-6H PRN 06/07/24 03/02/25 Rx (0.083 %) solution for nebulization shortness of breath or wheezing #180 mL tiotropium 2.5 mcg-olodaterol 2.5 See Rx Instructions .Route 06/20/24 03/02/25 Rx mcg/actuation mist for inhalation .COMPLEX #4 grams (Stiolto Respimat) gabapentin 300 mg capsule 300 mg PO Q12H #180 caps 08/29/24 03/02/25 Rx ferrous sulfate 325 mg (65 mg See Rx Instructions .Route 10/17/24 03/02/25 Rx iron) tablet (FeroSul) .COMPLEX #30 tabs sennosides 8.6 mg-docusate sodium 2 tab-cap (2 x 8.6-50 mg) PO BID 11/07/24 03/02/25 Rx 50 mg tablet (Senokot-S) PRN Constipation #120 tabs fluticasone propionate 50 See Rx Instructions .Route 11/16/24 03/02/25 Rx mcg/actuation nasal .COMPLEX #48 grams spray,suspension metoprolol succinate 25 mg See Rx Instructions .Route 11/16/24 03/02/25 Rx tablet,extended release 24 hr .COMPLEX #90 tabs moxifloxacin 400 mg tablet 400 mg PO QAM #30 tabs 12/08/24 03/02/25 Rx rifampin 300 mg capsule 600 mg (2 x 300 mg) PO 3XW #60 caps 12/08/24 03/02/25 Rx lovastatin 40 mg tablet 40 mg PO HS #90 tabs 12/28/24 03/02/25 Rx Allergies Allergy/AdvReac Type Severity Reaction Status Date / Time Penicillins Allergy Severe Anaphylaxis Verified 03/02/25 23:30 meperidine Allergy Intermediate Itching Verified 03/02/25 23:30 sulfamethoxazole (From Allergy Intermediate Mouth Verified 03/02/25 23:30 Bactrim) burning/redness trimethoprim (From Bactrim) Allergy Intermediate Mouth Verified 03/02/25 23:30 burning/redness mirtazapine AdvReac Mild Headache Verified 03/02/25 23:30 Vital Signs Vital Signs - 24 hr 03/02/25 15:15 03/02/25 15:35 03/02/25 18:27 Temperature 38.0 C H Pulse Rate 98 87 Respiratory Rate 20 15 Blood Pressure 103/46 L 123/60 Pulse Oximetry 98 98 100 Oxygen Delivery Nasal Cannula Nasal Cannula Oxygen Flow Rate 3 3 03/02/25 19:42 03/02/25 21:28 03/02/25 22:53 Temperature 36.7 C Pulse Rate 82 82 78 Respiratory Rate 19 18 18 Blood Pressure 124/57 L 90/73 L 119/57 L Pulse Oximetry 100 100 100 Oxygen Delivery Oxygen Flow Rate 03/02/25 23:27 03/03/25 04:00 03/03/25 05:50 Temperature 36.7 C 37.0 C Pulse Rate 85 60 76 Respiratory Rate 16 14 Blood Pressure 132/50 L 119/56 L Pulse Oximetry 98 100 Oxygen Delivery Oxygen Flow Rate 03/03/25 07:55 03/03/25 08:00 03/03/25 08:19 Temperature Pulse Rate 80 80 Respiratory Rate Blood Pressure Pulse Oximetry 94 Oxygen Delivery Nasal Cannula Oxygen Flow Rate 3 Exam Const: General: cooperative and comfortable Orientation/consciousness: oriented to person, oriented to place and oriented to time Other: Cachectic HENMT: Head: normal to inspection Ears: hearing grossly normal bilaterally Eyes: General: appearance normal, both eyes and all related structures Neck: Neck: normal visual inspection Chest: Chest palpation & inspection: normal inspection of the chest Resp: Effort & Inspection: normal respiratory effort and able to speak in complete sentences Auscultation: no crackles, no rales, no rhonchi, no wheezes and diminished lung sounds Other: decreased breath sounds throughout no wheezes. Cardio: Jugular venous distension: no JVD GI: Inspection: normal to inspection GI Palp: No abdominal tenderness Skin: General skin exam: normal color Neuro: General: oriented to person, oriented to place and oriented to time Extrem: General: normal to inspection Psych: Appearance: grossly normal Results Laboratory Findings 03/03/25 05:59 03/03/25 05:59 ABG, PT/INR, D-dimer: ABG ABG pH 7.404 (7.350-7.450) 03/03/25 10:23 ABG pCO2 49.5 mmHg (35.0-45.0) H 03/03/25 10:23 ABG pO2 71.1 mmHg (80.0-100.0) L 03/03/25 10:23 ABG O2 Saturation 94.2 % (95.0-100.0) L 03/03/25 10:23 Abnormal lab findings: Abnormal Labs 03/02/25 03/02/25 03/03/25 18:24 19:39 05:59 RBC 3.85 L 3.76 L Hgb 10.4 L 10.2 L Hct 32.9 L 33.1 L MCHC 31.6 L 30.8 L Immature Gran % (Auto) 0.6 H Neut % (Auto) 76.7 H Lymph % (Auto) 12.1 L 13.4 L [place] % (Auto) 9.9 H 11.4 H Lymph # (Auto) 0.77 L 0.68 L ABG pCO2 ABG pO2 ABG HCO3 ABG O2 Saturation ABG O2 Content Total Hemoglobin Sodium 132 L Chloride 96 L Carbon Dioxide 31 H 33 H Anion Gap 3 L Creatinine 0.64 L Total Bilirubin 0.1 L Alkaline Phosphatase 133 H C-Reactive Protein 11.4 H NT-Pro-B Natriuret Pep 122 H Albumin 3.4 L 3.2 L Urine Appearance Cloudy H Ur Blood (Man) 1+ H Urine Nitrate Positive H Leukocyte Esterase Rfl 2+ H Urine RBC 3-5 H Urine WBC >100 H Urine Bacteria 4+ H 03/03/25 10:23 RBC Hgb Hct MCHC Immature Gran % (Auto) Neut % (Auto) Lymph % (Auto) [place] % (Auto) Lymph # (Auto) ABG pCO2 49.5 H ABG pO2 71.1 L ABG HCO3 30.3 H ABG O2 Saturation 94.2 L ABG O2 Content 14.0 L Total Hemoglobin 10.6 L Sodium Chloride Carbon Dioxide Anion Gap Creatinine Total Bilirubin Alkaline Phosphatase C-Reactive Protein NT-Pro-B Natriuret Pep Albumin Urine Appearance Ur Blood (Man) Urine Nitrate Leukocyte Esterase Rfl Urine RBC Urine WBC Urine Bacteria Diagnostic Findings Additional studies: ITS Impressions Chest X-Ray 03/02/25 16:00 Impression: Bilateral pneumonia. Thickening of the right lung apex incompletely characterized but improved compared to the previous study. If there is concern for neoplasm contrast-enhanced CT is recommended Chest CTA 03/02/25 19:42
--- NOTE | 2025-03-03 13:38 | P.CDI_ITS ---
CDI Query Clarification Request BMI: 15.5 Nutritional Diagnostic Statement: Please refer to the comprehensive nutrition assessment for further information. If you agree with diagnosis of Severe protein calorie malnutrition related to increased energy needs in the setting of chronic illness (COPD) and inadequate energy intake as evidenced by poor po intake for greater than 1 month, a low BMI of 15.5, and NFPE findings for severe subcutaneous fat loss and severe muscle wasting. Please specify severity if known: * Mild * Moderate * Severe * Other/Unknown
--- NOTE | 2025-03-03 13:50 | WPDIDCN ---
Assessment and Plan Assessment and plan (1) Pneumonia: Code(s): J18.9 - Pneumonia, unspecified organism Status: Acute Plan # acute fever with acute exacerbation of COPD. Possible viral versus bacterial. Quad test for COVID influenza and RSV negative. Awaiting expanded respiratory panel. Awaiting the urine Legionella antigen. With underlying history of MAC. Status post brief introduction of 3 drug therapy which patient stopped after running out of her 1st refill. CT imaging from a December without much change. -- with pyuria. Although asymptomatic # hepatocellular carcinoma. Plan: Continue ceftriaxone and azithromycin. MRSA nares negative so can stop vancomycin in the setting of no worsening respiratory status. Follow oxygen demands. I would suggest we retry 3 drug therapy at discharge with azithromycin, moxifloxacin and rifampin. Residual mycin and right flank pain can be given 3 times weekly. I will arrange follow-up again with her in the outpatient setting once she is discharged. Otherwise will follow her here make any recommendations. We will follow urine culture patient currently not having symptoms so not clear will have to adjust her antibiotics based on any urine culture growth. exam and interview done via telemedicine with the patient at [facility] in [facility] and me in my location in [place], [place]. Patient consented to telemedicine. Via audio and visual interface with protected platform. HPI Data of Consult Date/Time: 03/03/25 13:50 Requesting Physician: Raya Haddad MD Primary Care Provider: Grace Mondragon DO Consult Narrative Reason for consult: Pneumonia Narrative: Melyssa Mccall is a 69 year old female no new me from previous admission in December. That time, with concern for MAC infection. We elected to start her on 3 drug regimen. She was eventually transferred to [facility] with underlying history of hepatocellular carcinoma which was newly diagnosed. She states she took all the medications prescribed to her and ran out and stop taking the medication likely about 1 month ago. No change in her oxygen demands during that time. More acutely, she started noticing increased shortness of breath the last 2-3 days prior to admission. Coming in with worsening wheezing. She has pyuria on her urinalysis but no urinary tract complaints. She was having subjective fevers at home. Here, she was started on ceftriaxone azithromycin and vancomycin. CT scan reviewed by pulmonology. Appreciate their input. No clear worsening disease from A high concerns. Patient states she would have any obvious to issues with her JOCELYNE therapy which Was azithromycin, rifampin and moxifloxacin. [facility] Past Medical History Medical History Vitamin D deficiency B12 deficiency Mixed incontinence Liana esophagitis Peripheral neuropathy Raynaud disease OSWALD (iron deficiency anemia) Osteopenia RLS (restless legs syndrome) Chronic narcotic use On home O2 Chronic sinusitis Olecranon bursitis, left elbow PSVT (paroxysmal supraventricular tachycardia) Kidney stones Fibromyalgia Rheumatoid arthritis Constipation IBS (irritable bowel syndrome) GERD (gastroesophageal reflux disease) Lumbar radiculopathy Esophageal stricture Status post dilatation ILD (interstitial lung disease) Small amount of interstitial lung disease was seen on base of lungs on chest CT 03/25/2018 which was an abdomen and pelvis CT Essential hypertension Collagen vascular disease Hyperlipidemia, unspecified Anxiety 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, patient unsure of this diagnosis COPD (chronic obstructive pulmonary disease) With severe obstructive disease noted on recent PFTs October 2024 with significant decompensation compared to prior study Tobacco abuse Quit 08/2024 Surgical History Surgical History History of esophagogastroduodenoscopy (EGD) With history of esophageal dilatation of History of colonoscopy with polypectomy History of partial hysterectomy Status post insertion of spinal cord stimulator History of bladder suspension procedure History of appendectomy History of lumbar surgery Spinal cord stimulator implanted 05/23/21 Family History Family History Mother Patient's mother is , Onset Age: 72 Sibling Carcinoma of colon Ovarian cancer Lung cancer Rectal cancer Family history of malignant neoplasm of breast in first degree relative Father Brain aneurysm Cerebrovascular accident, Onset Age: 54 Other Arthritis COPD (chronic obstructive pulmonary disease) High cholesterol Hypertension Lung disease Neuropathy Social History Social History Social History: The patient reports that she has been since 2007 and lives alone. She has 1 son who lives in [place]. She quit smoking in August 2024 of months prior to that she smoked a pack of cigarettes per day for close to 60 years. She denies any significant alcohol use. Code status: DNR/DNI (she would be okay with pressors if needed for blood pressure support) Healthcare power of criminal attorney: Cole (son) or Romi (friend) Smoking packs per day: 0.5 Smoking cigarettes per day: 10.0 Years smoked: 60 Smoking pack-years: 30.00 Smoking status: Heavy tobacco smoker Tobacco type: cigarettes Second hand tobacco smoke exposure: Yes Additional smoking assessment comments: Using Nicotine patches AT TIMES Alcohol intake: never Substance use: never Substance use type: does not use Do You Feel Safe in your Home?: Yes Lack of Transportation: No Lack of Food: Never True Current Housing: I Have Housing Concerned About Future Housing: No Difficulty Paying Gas/Electric Bills: No Difficulty Paying for Meds: No Currently Unemployed: No Education: Trade/Vocational Certificate Difficulty w/ Childcare or Family Care: No Living arrangements: alone Occupation/Education: retired Gender identity (if verbalized by the patient): Female Spiritual care concerns: No Meds Home Medications and Allergies Home Medications ?Medication ?Instructions ?Recorded ?Confirmed ?Type aspirin 81 mg tablet,delayed 81 mg PO DAILY 06/02/19 03/02/25 History release (Adult Aspirin Regimen) cyclobenzaprine 5 mg tablet 5 mg PO Q12H 01/05/20 03/02/25 History Held on 12/08/24. Instructions: Hold until you see your PCP. oxycodone myristate 13.5 mg 13.5 mg PO Q12H 11/19/21 03/02/25 History capsule sprinkle extend release 12hr(DON'T CRUSH) (Xtampza ER) solifenacin 10 mg tablet (Vesicare) 5 mg PO HS 02/04/23 03/02/25 History cholecalciferol (vitamin D3) 125 125 mcg PO DAILY 07/24/23 03/02/25 History mcg (5,000 unit) tablet (Vitamin D3) guaifenesin 600 mg tablet, 1,200 mg PO Q12H 07/24/23 03/02/25 History extended release 12 hr (Mucinex) loratadine 10 mg tablet 10 mg PO DAILY 07/24/23 03/02/25 History albuterol sulfate 90 mcg/actuation See Rx Instructions .Route 03/15/24 03/02/25 History aerosol inhaler .COMPLEX PRN Shortness Of Breath Or Wheezing omeprazole 40 mg capsule,delayed 40 mg PO DAILY #90 caps 06/02/24 03/02/25 Rx release albuterol sulfate 2.5 mg/3 mL 2.5 mg (3 mL) inhalation Q4-6H PRN 06/07/24 03/02/25 Rx (0.083 %) solution for nebulization shortness of breath or wheezing #180 mL tiotropium 2.5 mcg-olodaterol 2.5 See Rx Instructions .Route 06/20/24 03/02/25 Rx mcg/actuation mist for inhalation .COMPLEX #4 grams (Stiolto Respimat) gabapentin 300 mg capsule 300 mg PO Q12H #180 caps 08/29/24 03/02/25 Rx ferrous sulfate 325 mg (65 mg See Rx Instructions .Route 10/17/24 03/02/25 Rx iron) tablet (FeroSul) .COMPLEX #30 tabs sennosides 8.6 mg-docusate sodium 2 tab-cap (2 x 8.6-50 mg) PO BID 11/07/24 03/02/25 Rx 50 mg tablet (Senokot-S) PRN Constipation #120 tabs fluticasone propionate 50 See Rx Instructions .Route 11/16/24 03/02/25 Rx mcg/actuation nasal .COMPLEX #48 grams spray,suspension metoprolol succinate 25 mg See Rx Instructions .Route 11/16/24 03/02/25 Rx tablet,extended release 24 hr .COMPLEX #90 tabs moxifloxacin 400 mg tablet 400 mg PO QAM #30 tabs 12/08/24 03/02/25 Rx rifampin 300 mg capsule 600 mg (2 x 300 mg) PO 3XW #60 caps 12/08/24 03/02/25 Rx lovastatin 40 mg tablet 40 mg PO HS #90 tabs 12/28/24 03/02/25 Rx Allergies Allergy/AdvReac Type Severity Reaction Status Date / Time Penicillins Allergy Severe Anaphylaxis Verified 03/02/25 23:30 meperidine Allergy Intermediate Itching Verified 03/02/25 23:30 sulfamethoxazole (From Allergy Intermediate Mouth Verified 03/02/25 23:30 Bactrim) burning/redness trimethoprim (From Bactrim) Allergy Intermediate Mouth Verified 03/02/25 23:30 burning/redness mirtazapine AdvReac Mild Headache Verified 03/02/25 23:30 Vital Signs Vital Signs - 24 hr 03/02/25 15:15 03/02/25 15:35 03/02/25 18:27 Temperature 38.0 C H Pulse Rate 98 87 Respiratory Rate 20 15 Blood Pressure 103/46 L 123/60 Pulse Oximetry 98 98 100 Oxygen Delivery Nasal Cannula Nasal Cannula Oxygen Flow Rate 3 3 03/02/25 19:42 03/02/25 21:28 03/02/25 22:53 Temperature 36.7 C Pulse Rate 82 82 78 Respiratory Rate 19 18 18 Blood Pressure 124/57 L 90/73 L 119/57 L Pulse Oximetry 100 100 100 Oxygen Delivery Oxygen Flow Rate 03/02/25 23:27 03/03/25 04:00 03/03/25 05:50 Temperature 36.7 C 37.0 C Pulse Rate 85 60 76 Respiratory Rate 16 14 Blood Pressure 132/50 L 119/56 L Pulse Oximetry 98 100 Oxygen Delivery Oxygen Flow Rate 03/03/25 07:55 03/03/25 08:00 03/03/25 08:19 Temperature Pulse Rate 80 80 Respiratory Rate Blood Pressure Pulse Oximetry 94 Oxygen Delivery Nasal Cannula Oxygen Flow Rate 3 03/03/25 12:00 Temperature Pulse Rate 60 Respiratory Rate Blood Pressure Pulse Oximetry Oxygen Delivery Oxygen Flow Rate Exam Narrative: via telemedicine. On supplemental oxygen. Her baseline is 2-3 L. No conversational dyspnea although she does have coughing which does interrupt her conversation and will lead to some shortness of breath after each cough. Thin. Alert and oriented to person place and time. No obvious rash. Results Labs 03/03/25 05:59 03/03/25 05:59 Labs: Short CBC 03/02/25 03/03/25 Range/Units 18:24 05:59 WBC 6.3 5.1 (4.5-10.0) K/mm3 Hgb 10.4 L 10.2 L (12.0-15.0) g/dL Hct 32.9 L 33.1 L (37.0-47.0) % Plt Count 215 191 (150-375) k/mm3 BMP 03/02/25 03/03/25 18:24 05:59 Sodium 132 L 137 Potassium 3.8 4.0 Chloride 96 L 101 Carbon Dioxide 31 H 33 H BUN 10 11 Creatinine 0.64 L 0.70 Glucose 107 103 Calcium 8.8 8.6 Liver Function 03/02/25 03/03/25 Range/Units 18:24 05:59 Total Bilirubin 0.4 0.1 L (0.2-1.3) mg/dL AST 25 20 (14-36) U/L ALT 10 9 (6-35) U/L Alkaline Phosphatase 133 H 120 (38-126) U/L Albumin 3.4 L 3.2 L (3.5-5.1) g/dL Urine 03/02/25 Range/Units 19:39 Urine Color Yellow (Yellow) Urine Appearance Cloudy H (Clear) Urine pH 6.0 (5.0-9.0) Ur Specific [place] 1.011 (1.001-1.035) Urine Protein Trace (Negative) mg/dL Urine Glucose (UA) Negative (Negative) mg/dL
--- NOTE | 2025-03-03 15:34 | PCRCNOTE ---
Window of time for administration has passed. See next scheduled administration.
[2025-03-03] MEDS: ACETAMINOPHEN 325 MG TABLET 650 MG PO (16:49)
[2025-03-03] MEDS: cefTRIAXone 1 GM in SODIUM CHLORIDE 0.9% IV 50 ML 100 ML IVPB (20:11)
[2025-03-03] MEDS: LOVASTATIN 20 MG TABLET 40 MG PO (20:12)
[2025-03-03] MEDS: SOLIFENACIN 5 MG TABLET PO (20:13)
[2025-03-03] MEDS: ACETYLCYSTEINE 20% INHAL SOLN 800 MG/4 ML VIAL 200 MG INHALATION (20:57)
[2025-03-03] MEDS: IPRATROPIUM 0.5 MG/ALBUTEROL SULFATE 2.5 MG (BASE) AMPUL.NEB 3 ML INHALATION (20:58)
[2025-03-03] MEDS: AZITHROMYCIN IV 500 MG in SODIUM CHLORIDE 0.9% IV 250 ML IVPB (21:06)
[2025-03-04] VITALS (18 sets, daily range): BP systolic 98–118; BP diastolic 42–51; PULSE 70–81; RESP 16–20; TEMP 36.6–37.6; O2SAT 97–100
[2025-03-04] MEDS: IPRATROPIUM 0.5 MG/ALBUTEROL SULFATE 2.5 MG (BASE) AMPUL.NEB 3 ML INHALATION ×4 (03:03→20:08)
[2025-03-04] MEDS: ACETYLCYSTEINE 20% INHAL SOLN 800 MG/4 ML VIAL 200 MG INHALATION ×4 (03:03→20:08)
[2025-03-04] MEDS: UMECLIDINIUM/VILANTEROL 62.5-25 MCG ELLIPTA 1 PUFF INHALATION (08:48)
--- NOTE | 2025-03-04 09:56 | P.PNIM_ITS ---
Progress Note: A&P Assessment and Plan (1) Right upper lobe pneumonia: Code(s): J18.9 - Pneumonia, unspecified organism Status: Acute Assessment and Plan: Continue with IV antibiotics. Follow closely. Pulmonary consult (2) COPD (chronic obstructive pulmonary disease): Qualifiers: COPD type: unspecified COPD Qualified Code(s): J44.9 - Chronic obstructive pulmonary disease, unspecified Code(s): J44.9 - Chronic obstructive pulmonary disease, unspecified Status: Chronic Assessment and Plan: Continue with oxygen IV antibiotic. Pulmonary consult noted. (3) Essential hypertension: Code(s): I10 - Essential (primary) hypertension Status: Chronic Assessment and Plan: Stable on current medications will continue current treatment. (4) Urinary tract infection: Qualifiers: Hematuria presence: with hematuria Urinary tract infection type: site unspecified Qualified Code(s): N39.0 - Urinary tract infection, site not specified; R31.9 - Hematuria, unspecified Code(s): N39.0 - Urinary tract infection, site not specified Status: Acute Assessment and Plan: Blood culture and urine culture. Continue with IV antibiotic (5) Cavitary lesion of lung: Code(s): J98.4 - Other disorders of lung Status: Acute Assessment and Plan: Pulmonary consult. Continue IV antibiotics Plan Patient is admitted as a full admission. Will follow culture and continue with antibiotics. Pulmonary consult. DVT prophylaxis pharmacological ordered. Subjective Date/time seen: 03/04/25 09:56 Interval history: Patient was seen during the morning rounds today. Patient is feeling slightly better. Decreased shortness of breath. No chest pain. Review of Systems Review of Systems: All systems reviewed & are unremarkable except as noted in HPI and below (the history and physical examination.) Exam Narrative: GENERAL: Cachectic, poorly nourished, no acute distress. HEAD: Normocephalic, atraumatic. EYES: PERRLA and EOMI. ENT: Nares clear, no rhinorrhea or epistaxis. Mucous membranes moist. Oropharynx without tonsillar hypertrophy exudate or other lesions. Bilateral TMs pearly ocasio non-bulging NECK: Supple. No adenopathy or masses. No carotid bruits or JVD CHEST: Decreased lung sounds in all hill. No respiratory distress, 3L at baseline. No wheezes rales or rhonchi HEART: Regular rate and rhythm. No murmur heard. Normal peripheral pulses. ABDOMEN: Suprapubic tenderness and decreased bowel sounds in all quadrants. EXTREMITIES: Normal range of motion. No edema. SKIN: Warm, dry, no rash. NEURO: No focal deficits. Alert and oriented x3. PSYCH: Normal mood and affect Objective Data Vital Signs Vital Signs: Vital Signs - 24 hr 03/03/25 12:00 03/03/25 14:00 03/03/25 16:00 Temperature 36.8 C Pulse Rate 60 71 60 Respiratory Rate 18 Blood Pressure 92/80 L Pulse Oximetry 98 Oxygen Delivery Oxygen Flow Rate 03/03/25 20:00 03/03/25 20:00 03/03/25 20:50 Temperature Pulse Rate 60 Respiratory Rate Blood Pressure Pulse Oximetry 96 99 Oxygen Delivery Nasal Cannula Nasal Cannula Oxygen Flow Rate 2 2 03/03/25 20:57 03/03/25 21:13 03/03/25 21:21 Temperature 36.6 C Pulse Rate 70 74 69 Respiratory Rate 20 20 16 Blood Pressure 104/40 L Pulse Oximetry 100 Oxygen Delivery Oxygen Flow Rate 03/04/25 00:00 03/04/25 03:03 03/04/25 03:15 Temperature Pulse Rate 70 79 76 Respiratory Rate 20 20 Blood Pressure Pulse Oximetry Oxygen Delivery Oxygen Flow Rate 03/04/25 04:00 03/04/25 05:47 03/04/25 08:48 Temperature 36.6 C Pulse Rate 77 74 78 Respiratory Rate 16 20 Blood Pressure 118/51 L Pulse Oximetry 100 Oxygen Delivery Oxygen Flow Rate 03/04/25 08:48 03/04/25 08:55 Temperature Pulse Rate 78 76 Respiratory Rate 20 20 Blood Pressure Pulse Oximetry 98 Oxygen Delivery Nasal Cannula Oxygen Flow Rate 2 Intake/Output Intake/Output: Intake & Output 03/01/25 03/02/25 03/03/25 03/04/25 23:59 23:59 23:59 23:59 Intake Total 50 1000 350 Output Total 1050 1100 Balance 50 -50 -750 Meds/Results Medications: Active Medications Generic Name Dose Route Start Last Admin Trade Name Freq PRN Reason Stop Dose Admin Acetaminophen 650 mg 03/02/25 21:11 03/03/25 16:49 Acetaminophen 325 Mg Tablet PO 650 mg Q4H PRN Administration Mild Pain (1-3) or Fever Acetylcysteine 200 mg 03/03/25 14:00 03/04/25 08:47 Acetylcysteine 20% Inhal Soln 800 Mg/4 Ml Vial INHALATION 200 mg Q6HRT ALBERTA Administration Albuterol/Ipratropium 3 ml 03/03/25 14:00 03/04/25 08:47 Ipratropium 0.5 Mg/Albuterol Sulfate 2.5 Mg (Base) Ampul.Neb 3 Ml INHALATION 3 ml Q6HRT ALBERTA Administration Aspirin 81 mg 03/03/25 09:00 03/03/25 07:55 Aspirin 81 Mg Enteric Tablet PO 81 mg DAILY ALBERTA Administration Enoxaparin Sodium 40 mg 03/03/25 09:00 03/03/25 09:19 Enoxaparin 40 Mg/0.4 Ml Syringe SUB-Q 40 mg DAILY ALBERTA Administration Ferrous Sulfate 325 mg 03/03/25 09:00 03/03/25 07:55 Ferrous Sulfate 325 Mg Tablet BY MOUTH 325 mg DAILY ALBERTA Administration Fluticasone Propionate 1 spray 03/03/25 09:00 03/03/25 11:21 Fluticasone Propionate 0.05% Na Spr 16 Gm Btl (*Bkc) NASAL 1 spray Q12HR PRN Administration Nasal Congestion Gabapentin 300 mg 03/03/25 09:00 03/03/25 20:12 Gabapentin 300 Mg Capsule PO 300 mg Q12HR ALBERTA Administration Guaifenesin 1,200 mg 03/03/25 09:00 03/03/25 20:12 Guaifenesin 12 Hr 600 Mg Tabcr PO 1,200 mg Q12HR ALBERTA Administration Guaifenesin 1,200 mg 03/03/25 11:45 03/03/25 20:12 Guaifenesin 12 Hr 600 Mg Tabcr PO Not Given Q12HR ALBERTA Ceftriaxone Sodium 1 gm/ 50 mls @ 100 mls/hr 03/03/25 21:00 03/03/25 21:07 Sodium Chloride IVPB Infused Q24H ALBERTA Infusion Azithromycin 500 mg/ Sodium 250 mls @ 250 mls/hr 03/03/25 22:00 03/03/25 21:06 Chloride IVPB 03/06/25 22:59 250 mls/hr Q24H ALBERTA Administration Loratadine 10 mg 03/03/25 09:00 03/03/25 07:55 Loratadine 10 Mg Tablet PO 10 mg DAILY ALBERTA Administration Lovastatin 40 mg 03/03/25 21:00 03/03/25 20:12 Lovastatin 20 Mg Tablet PO 40 mg HS ALBERTA Administration Metoprolol Succinate 25 mg 03/03/25 09:00 03/03/25 07:55 Metoprolol Succinate Ext Rel 25 Mg Tabcr BY MOUTH 25 mg DAILY ALBERTA Administration Oxycodone HCl 10 mg 03/03/25 09:00 03/03/25 20:13 Oxycodone Hcl (*Crx) 10 Mg Tab Sr 12hr PO 10 mg Q12HR ALBERTA Administration Pantoprazole Sodium 40 mg 03/03/25 09:00 03/03/25 16:45 Pantoprazole 40 Mg Tablet PO 40 mg BID ALBERTA Administration Senna/Docusate Sodium 2 tab 03/03/25 04:30 Senna/Docusate Sodium Tablet PO BID PRN Constipation Solifenacin 5 mg 03/03/25 21:00 03/03/25 20:13 Solifenacin 5 Mg Tablet PO 5 mg HS ALBERTA Administration Umeclidinium/Vilanterol 1 puff 03/03/25 08:00 03/04/25 08:48 Umeclidinium/Vilanterol 62.5-25 Mcg Ellipta INHALATION 1 puff DAILYRT ALBERTA Administration Vitamin D 125 mcg 03/04/25 09:00 Cholecalciferol (Vitamin D3) 125 Mcg (5,000 Units) Tablet PO DAILY [facility] Radiology Results: ITS Impressions Chest X-Ray 03/02/25 16:00 Impression: Bilateral pneumonia. Thickening of the right lung apex incompletely characterized but improved compared to the previous study. If there is concern for neoplasm contrast-enhanced CT is recommended Chest CTA 03/02/25 19:42 IMPRESSION: There is no pulmonary embolism, aortic dissection, pericardial fluid or thoracic aneurysm. Airspace opacities within the right upper lobe is grossly unchanged. Cavitation lesion within this area is unchanged measuring 3.3 x 2.5 cm. This may represent atypical pneumonia however malignancy cannot be excluded. All CT scans at this facility are performed using low dose modulation techniques as appropriate to perform exam including the following: automated exposure control; use of iterative reconstruction technique; adjustment of the mA and/or kV according to patient size (this includes techniques or standardized protocols for targeted exams where dose is matched to indication/reason for exam). Labs Labs: Laboratory Results - last 24 hr 03/03/25 03/03/25 05:59 10:23 Puncture Site Right radial ABG pH 7.404 ABG pCO2 49.5 H ABG pO2 71.1 L ABG PO2/FiO2 Ratio 2.96 ABG HCO3 30.3 H ABG O2 Saturation 94.2 L ABG O2 Content 14.0 L ABG Base Excess 4.7 A-a Gradient 41.1 Oxyhemoglobin 93.7 Total Hemoglobin 10.6 L O2 Delivery Device Nasal cannula O2 Liters/Min 1.0 FiO2 24 Procalcitonin 0.2 Quality VTE Prophylaxis VTE prophylaxis: pharmacologic ordered
[2025-03-04] MEDS: guaiFENesin 12 HR 600 MG TABCR 1200 MG PO ×2 (09:57→20:32)
[2025-03-04] MEDS: CHOLECALCIFEROL (VITAMIN D3) 125 MCG (5,000 UNITS) TABLET PO (09:57)
[2025-03-04] MEDS: FERROUS SULFATE 325 MG TABLET BY MOUTH (09:57)
[2025-03-04] MEDS: oxyCODONE HCL (*CRX) 10 MG TAB SR 12HR PO ×2 (09:57→20:32)
[2025-03-04] MEDS: GABAPENTIN 300 MG CAPSULE PO ×2 (09:58→20:32)
[2025-03-04] MEDS: METOPROLOL SUCCINATE EXT REL 25 MG TABCR BY MOUTH (09:58)
[2025-03-04] MEDS: ASPIRIN 81 MG ENTERIC TABLET PO (09:58)
[2025-03-04] MEDS: ENOXAPARIN 40 MG/0.4 ML SYRINGE SUB-Q (09:58)
[2025-03-04] MEDS: LORATADINE 10 MG TABLET PO (09:58)
[2025-03-04] MEDS: PANTOPRAZOLE 40 MG TABLET PO ×2 (09:58→16:29)
[2025-03-04] MEDS: BENZOCAINE/MENTHOL (*BKC) 18 EA LOZENGE 1 LOZENGE PO (15:26)
[2025-03-04] MEDS: ACETAMINOPHEN 325 MG TABLET 650 MG PO (19:37)
[2025-03-04] MEDS: LOVASTATIN 20 MG TABLET 40 MG PO (20:32)
[2025-03-04] MEDS: SOLIFENACIN 5 MG TABLET PO (20:32)
[2025-03-04] MEDS: cefTRIAXone 1 GM in SODIUM CHLORIDE 0.9% IV 50 ML 100 ML IVPB (20:36)
[2025-03-04] MEDS: AZITHROMYCIN IV 500 MG in SODIUM CHLORIDE 0.9% IV 250 ML IVPB (21:59)
[2025-03-05] VITALS (18 sets, daily range): BP systolic 102–125; BP diastolic 46–54; PULSE 71–89; RESP 15–20; TEMP 36.2–36.9; O2SAT 95–100
[2025-03-05] MEDS: ACETYLCYSTEINE 20% INHAL SOLN 800 MG/4 ML VIAL 200 MG INHALATION ×4 (02:13→20:03)
[2025-03-05] MEDS: IPRATROPIUM 0.5 MG/ALBUTEROL SULFATE 2.5 MG (BASE) AMPUL.NEB 3 ML INHALATION ×4 (02:13→20:03)
--- NOTE | 2025-03-05 02:52 | PC.NURSE ---
Daylight Savings Time For Daylight Savings Time Ending in the Fall - Clocks are moved back. For Daylight Savings Time Beginning in the Spring - Clocks are moved ahead. For [facility], the time of change occurs at 0200 hrs. Time is taken from the observer gravity prospecting. This entry on the patient's chart recognizes the change in time reflected during documentation. Example: 2 entries for vital signs may be charted for 0200 hrs.
[2025-03-05 06:22] LABS: Hematocrit 30.7 % (37.0-47.0); Hemoglobin 9.0 g/dL (12.0-15.0); Mean Corpuscular HGB Conc 29.3 g/dl (32-36); Mean Corpuscular Hemoglobin 27.2 pg (26-34); Mean Corpuscular Volume 92.7 fl (80-100); Platelet Count Result 143 k/mm3 (150-375); Red Blood Count 3.31 M/mm3 (4.2-5.4); White Blood Count 4.4 K/mm3 (4.5-10.0)
[2025-03-05 06:36] LABS: Alanine Aminotransferase 9 U/L (6-35); Albumin Level 3.1 g/dL (3.5-5.1); Alkaline Phosphatase 105 U/L (38-126); Anion Gap 2 mmol/L (4-12); Aspartate Amino Transferase 18 U/L (14-36); Bilirubin,Total 0.2 mg/dL (0.2-1.3); Blood Urea Nitrogen 12 mg/dL (7-17); Calcium 8.8 mg/dL (8.4-10.2); Carbon Dioxide 36 mmol/L (22-30); Chloride 100 mmol/L (98-107); Estimated CRCL calculation 41 ml/min; Estimated Glomerular Filt Rate > 60; Glucose 109 mg/dL (65-110); Potassium 4.8 mmol/L (3.4-5.0); Sodium 138 mmol/L (137-145); Total Protein 6.7 g/dL (6.3-8.2)
[2025-03-05] MEDS: oxyCODONE HCL (*CRX) 10 MG TAB SR 12HR PO ×2 (09:02→20:43)
[2025-03-05] MEDS: GABAPENTIN 300 MG CAPSULE PO ×2 (09:02→20:43)
[2025-03-05] MEDS: LORATADINE 10 MG TABLET PO (09:03)
[2025-03-05] MEDS: METOPROLOL SUCCINATE EXT REL 25 MG TABCR BY MOUTH (09:03)
[2025-03-05] MEDS: CHOLECALCIFEROL (VITAMIN D3) 125 MCG (5,000 UNITS) TABLET PO (09:03)
[2025-03-05] MEDS: guaiFENesin 12 HR 600 MG TABCR 1200 MG PO ×2 (09:03→20:43)
[2025-03-05] MEDS: FERROUS SULFATE 325 MG TABLET BY MOUTH (09:03)
[2025-03-05] MEDS: PANTOPRAZOLE 40 MG TABLET PO ×2 (09:03→16:22)
[2025-03-05] MEDS: ASPIRIN 81 MG ENTERIC TABLET PO (09:04)
[2025-03-05] MEDS: ENOXAPARIN 40 MG/0.4 ML SYRINGE SUB-Q (09:06)
[2025-03-05] MEDS: UMECLIDINIUM/VILANTEROL 62.5-25 MCG ELLIPTA 1 PUFF INHALATION (09:18)
--- NOTE | 2025-03-05 10:02 | PM.IMPN ---
Progress Note: A&P Assessment and Plan (1) Right upper lobe pneumonia: Code(s): J18.9 - Pneumonia, unspecified organism Status: Acute Assessment and Plan: Continue with IV antibiotics. Follow closely. Pulmonary consult noted. Repeat x-ray no significant changes. (2) COPD (chronic obstructive pulmonary disease): Qualifiers: COPD type: unspecified COPD Qualified Code(s): J44.9 - Chronic obstructive pulmonary disease, unspecified Code(s): J44.9 - Chronic obstructive pulmonary disease, unspecified Status: Chronic Assessment and Plan: Breathing is better. Continue with oxygen IV antibiotic. Pulmonary consult noted. (3) Essential hypertension: Code(s): I10 - Essential (primary) hypertension Status: Chronic Assessment and Plan: Stable on current medications will continue current treatment. (4) Urinary tract infection: Qualifiers: Hematuria presence: with hematuria Urinary tract infection type: site unspecified Qualified Code(s): N39.0 - Urinary tract infection, site not specified; R31.9 - Hematuria, unspecified Code(s): N39.0 - Urinary tract infection, site not specified Status: Acute Assessment and Plan: Blood culture and urine culture. Continue with IV antibiotic (5) Cavitary lesion of lung: Code(s): J98.4 - Other disorders of lung Status: Acute Assessment and Plan: Pulmonary consult. Continue IV antibiotics Plan Patient is admitted as a full admission. Will follow culture and continue with antibiotics. Pulmonary consult. DVT prophylaxis pharmacological ordered. Subjective Date/time seen: 03/05/25 10:02 Interval history: Patient was seen during the morning rounds today. No new overnight complaints. Patient is feeling slightly better. Decreased shortness of breath. No chest pain. Review of Systems Review of Systems: All systems reviewed & are unremarkable except as noted in HPI and below (the history and physical examination.) Exam Narrative: GENERAL: Cachectic, poorly nourished, no acute distress. HEAD: Normocephalic, atraumatic. EYES: PERRLA and EOMI. ENT: Nares clear, no rhinorrhea or epistaxis. Mucous membranes moist. Oropharynx without tonsillar hypertrophy exudate or other lesions. Bilateral TMs pearly ocasio non-bulging NECK: Supple. No adenopathy or masses. No carotid bruits or JVD CHEST: Decreased lung sounds in all hill. No respiratory distress, 3L at baseline. No wheezes rales or rhonchi HEART: Regular rate and rhythm. No murmur heard. Normal peripheral pulses. ABDOMEN: Suprapubic tenderness and decreased bowel sounds in all quadrants. EXTREMITIES: Normal range of motion. No edema. SKIN: Warm, dry, no rash. NEURO: No focal deficits. Alert and oriented x3. PSYCH: Normal mood and affect Objective Data Vital Signs Vital Signs: Vital Signs - 24 hr 03/04/25 12:00 03/04/25 13:06 03/04/25 13:12 Temperature Pulse Rate 74 75 76 Respiratory Rate 20 20 Blood Pressure Pulse Oximetry Oxygen Delivery Oxygen Flow Rate 03/04/25 14:00 03/04/25 19:41 03/04/25 19:54 Temperature 37.6 C H 36.8 C Pulse Rate 81 77 81 Respiratory Rate 18 16 18 Blood Pressure 102/42 L 98/51 L Pulse Oximetry 99 98 99 Oxygen Delivery Nasal Cannula Oxygen Flow Rate 2 03/04/25 20:00 03/04/25 20:10 03/04/25 20:16 Temperature Pulse Rate 78 80 80 Respiratory Rate 20 20 Blood Pressure Pulse Oximetry 97 Oxygen Delivery Nasal Cannula Oxygen Flow Rate 2 03/05/25 00:00 03/05/25 02:14 03/05/25 02:23 Temperature Pulse Rate 76 72 75 Respiratory Rate 20 20 Blood Pressure Pulse Oximetry Oxygen Delivery Oxygen Flow Rate 03/05/25 04:00 03/05/25 04:40 03/05/25 08:00 Temperature 36.2 C L Pulse Rate 74 71 87 Respiratory Rate 15 Blood Pressure 110/46 L Pulse Oximetry 100 98 Oxygen Delivery Nasal Cannula Oxygen Flow Rate 2 03/05/25 08:00 03/05/25 09:03 03/05/25 09:20 Temperature Pulse Rate 82 87 89 Respiratory Rate 18 Blood Pressure Pulse Oximetry Oxygen Delivery Oxygen Flow Rate 03/05/25 09:21 03/05/25 09:26 Temperature Pulse Rate 82 Respiratory Rate 18 Blood Pressure Pulse Oximetry 95 Oxygen Delivery Nasal Cannula Oxygen Flow Rate 2 Intake/Output Intake/Output: Intake & Output 03/02/25 03/03/25 03/04/25 03/05/25 23:59 23:59 23:59 22:59 Intake Total 50 1250 1070 590 Output Total 1050 2300 900 Balance 50 200 -1230 -310 Meds/Results Medications: Active Medications Generic Name Dose Route Start Last Admin Trade Name Freq PRN Reason Stop Dose Admin Acetaminophen 650 mg 03/02/25 21:11 03/04/25 19:37 Acetaminophen 325 Mg Tablet PO 650 mg Q4H PRN Administration Mild Pain (1-3) or Fever Acetylcysteine 200 mg 03/03/25 14:00 03/05/25 09:18 Acetylcysteine 20% Inhal Soln 800 Mg/4 Ml Vial INHALATION 200 mg Q6HRT ALBERTA Administration Albuterol/Ipratropium 3 ml 03/03/25 14:00 03/05/25 09:18 Ipratropium 0.5 Mg/Albuterol Sulfate 2.5 Mg (Base) Ampul.Neb 3 Ml INHALATION 3 ml Q6HRT ALBERTA Administration Aspirin 81 mg 03/03/25 09:00 03/05/25 09:04 Aspirin 81 Mg Enteric Tablet PO 81 mg DAILY ALBERTA Administration Benzocaine 1 lozenge 03/04/25 13:48 03/04/25 15:26 Benzocaine/Menthol (*Bkc) 18 Ea Lozenge PO 1 lozenge Q6HR PRN Administration Sore Throat Enoxaparin Sodium 40 mg 03/03/25 09:00 03/05/25 09:06 Enoxaparin 40 Mg/0.4 Ml Syringe SUB-Q 40 mg DAILY ALBERTA Administration Ferrous Sulfate 325 mg 03/03/25 09:00 03/05/25 09:03 Ferrous Sulfate 325 Mg Tablet BY MOUTH 325 mg DAILY ALBERTA Administration Fluticasone Propionate 1 spray 03/03/25 09:00 03/03/25 11:21 Fluticasone Propionate 0.05% Na Spr 16 Gm Btl (*Bkc) NASAL 1 spray Q12HR PRN Administration Nasal Congestion Gabapentin 300 mg 03/03/25 09:00 03/05/25 09:02 Gabapentin 300 Mg Capsule PO 300 mg Q12HR ALBERTA Administration Guaifenesin 1,200 mg 03/03/25 09:00 03/05/25 09:03 Guaifenesin 12 Hr 600 Mg Tabcr PO 1,200 mg Q12HR ALBERTA Administration Ceftriaxone Sodium 1 gm/ 50 mls @ 100 mls/hr 03/03/25 21:00 03/04/25 20:36 Sodium Chloride IVPB 100 mls/hr Q24H ALBERTA Administration Azithromycin 500 mg/ Sodium 250 mls @ 250 mls/hr 03/03/25 22:00 03/04/25 21:59 Chloride IVPB 03/06/25 22:59 250 mls/hr Q24H ALBERTA Administration Loratadine 10 mg 03/03/25 09:00 03/05/25 09:03 Loratadine 10 Mg Tablet PO 10 mg DAILY ALBERTA Administration Lovastatin 40 mg 03/03/25 21:00 03/04/25 20:32 Lovastatin 20 Mg Tablet PO 40 mg HS ALBERTA Administration Metoprolol Succinate 25 mg 03/03/25 09:00 03/05/25 09:03 Metoprolol Succinate Ext Rel 25 Mg Tabcr BY MOUTH 25 mg DAILY ALBERTA Administration Oxycodone HCl 10 mg 03/03/25 09:00 03/05/25 09:02 Oxycodone Hcl (*Crx) 10 Mg Tab Sr 12hr PO 10 mg Q12HR ALBERTA Administration Pantoprazole Sodium 40 mg 03/03/25 09:00 03/05/25 09:03 Pantoprazole 40 Mg Tablet PO 40 mg BID ALBERTA Administration Senna/Docusate Sodium 2 tab 03/03/25 04:30 Senna/Docusate Sodium Tablet PO BID PRN Constipation Solifenacin 5 mg 03/03/25 21:00 03/04/25 20:32 Solifenacin 5 Mg Tablet PO 5 mg HS ALBERTA Administration Umeclidinium/Vilanterol 1 puff 03/03/25 08:00 03/05/25 09:18 Umeclidinium/Vilanterol 62.5-25 Mcg Ellipta INHALATION 1 puff DAILYRT ALBERTA Administration Vitamin D 125 mcg 03/04/25 09:00 03/05/25 09:03 Cholecalciferol (Vitamin D3) 125 Mcg (5,000 Units) Tablet PO 125 mcg DAILY ALBERTA Administration Radiology Results: ITS Impressions Chest CTA 03/02/25 19:42 IMPRESSION: There is no pulmonary embolism, aortic dissection, pericardial fluid or thoracic aneurysm. Airspace opacities within the right upper lobe is grossly unchanged. Cavitation lesion within this area is unchanged measuring 3.3 x 2.5 cm. This may represent atypical pneumonia however malignancy cannot be excluded. All CT scans at this facility are performed using low dose modulation techniques as appropriate to perform exam including the following: automated exposure control; use of iterative reconstruction technique; adjustment of the mA and/or kV according to patient size (this includes techniques or standardized protocols for targeted exams where dose is matched to indication/reason for exam). Chest X-Ray 03/05/25 09:25 IMPRESSION: 1. No significant change or worsening. Labs Labs: Laboratory Results - last 24 hr 03/05/25 05:57 WBC 4.4 L RBC 3.31 L Hgb 9.0 L Hct 30.7 L MCV 92.7 D MCH 27.2 MCHC 29.3 L RDW 13.4 Plt Count 143 L MPV 8.9 Sodium 138 Potassium 4.8 Chloride 100 Carbon Dioxide 36 H Anion Gap 2 L BUN 12 Creatinine 0.77 Estim Creat Clear Calc 41 Estimated GFR > 60 Glucose 109 Calcium 8.8 Total Bilirubin 0.2 AST 18 ALT 9 Alkaline Phosphatase 105 Total Protein 6.7 Albumin 3.1 L Quality VTE Prophylaxis VTE prophylaxis: pharmacologic ordered
[2025-03-05] MEDS: BENZOCAINE/MENTHOL (*BKC) 18 EA LOZENGE 1 LOZENGE PO ×2 (10:54→16:24)
[2025-03-05] MEDS: ACETAMINOPHEN 325 MG TABLET 650 MG PO (10:57)
[2025-03-05] MEDS: cefTRIAXone 1 GM in SODIUM CHLORIDE 0.9% IV 50 ML 100 ML IVPB (20:43)
[2025-03-05] MEDS: SOLIFENACIN 5 MG TABLET PO (20:43)
[2025-03-05] MEDS: LOVASTATIN 20 MG TABLET 40 MG PO (20:43)
[2025-03-05] MEDS: AZITHROMYCIN IV 500 MG in SODIUM CHLORIDE 0.9% IV 250 ML IVPB (21:34)
[2025-03-06] VITALS (19 sets, daily range): BP systolic 100–102; BP diastolic 45–50; PULSE 18–120; RESP 16–77; TEMP 36.3–36.8; O2SAT 93–100
[2025-03-06] MEDS: ACETYLCYSTEINE 20% INHAL SOLN 800 MG/4 ML VIAL 200 MG INHALATION ×4 (03:13→20:14)
[2025-03-06] MEDS: IPRATROPIUM 0.5 MG/ALBUTEROL SULFATE 2.5 MG (BASE) AMPUL.NEB 3 ML INHALATION ×4 (03:13→20:14)
[2025-03-06] MEDS: UMECLIDINIUM/VILANTEROL 62.5-25 MCG ELLIPTA 1 PUFF INHALATION (08:09)
[2025-03-06] MEDS: guaiFENesin 12 HR 600 MG TABCR 1200 MG PO ×2 (08:14→20:06)
[2025-03-06] MEDS: CHOLECALCIFEROL (VITAMIN D3) 125 MCG (5,000 UNITS) TABLET PO (08:14)
[2025-03-06] MEDS: FERROUS SULFATE 325 MG TABLET BY MOUTH (08:14)
[2025-03-06] MEDS: oxyCODONE HCL (*CRX) 10 MG TAB SR 12HR PO ×2 (08:14→20:06)
[2025-03-06] MEDS: GABAPENTIN 300 MG CAPSULE PO ×2 (08:14→20:05)
[2025-03-06] MEDS: ASPIRIN 81 MG ENTERIC TABLET PO (08:14)
[2025-03-06] MEDS: LORATADINE 10 MG TABLET PO (08:15)
[2025-03-06] MEDS: METOPROLOL SUCCINATE EXT REL 25 MG TABCR BY MOUTH (08:15)
[2025-03-06] MEDS: PANTOPRAZOLE 40 MG TABLET PO ×2 (08:16→16:29)
[2025-03-06] MEDS: ENOXAPARIN 40 MG/0.4 ML SYRINGE SUB-Q (08:17)
[2025-03-06 08:33] LABS: Hematocrit 31.8 % (37.0-47.0); Hemoglobin 9.3 g/dL (12.0-15.0); Immature Granulocyte Percent A 0.5 % (0-0.5); Lymphocytes Absolute Auto 1.23 K/mm3 (0.9-3.2); Mean Corpuscular HGB Conc 29.2 g/dl (32-36); Mean Corpuscular Hemoglobin 27.0 pg (26-34); Mean Corpuscular Volume 92.4 fl (80-100); Nucleated Red Blood Cells Absolute Auto 0.000 K/mm3 (0.0-0.012); Nucleated Red Blood Cells Perc 0.0 % (0.0-0.2); Platelet Count Result 175 k/mm3 (150-375); Red Blood Count 3.44 M/mm3 (4.2-5.4); White Blood Count 5.6 K/mm3 (4.5-10.0)
[2025-03-06 08:44] LABS: Alanine Aminotransferase 12 U/L (6-35); Albumin Level 3.1 g/dL (3.5-5.1); Alkaline Phosphatase 129 U/L (38-126); Anion Gap 7 mmol/L (4-12); Aspartate Amino Transferase 21 U/L (14-36); Bilirubin,Total 0.2 mg/dL (0.2-1.3); Blood Urea Nitrogen 11 mg/dL (7-17); Calcium 8.7 mg/dL (8.4-10.2); Carbon Dioxide 29 mmol/L (22-30); Chloride 99 mmol/L (98-107); Estimated CRCL calculation 46 ml/min; Estimated Glomerular Filt Rate > 60; Glucose 154 mg/dL (65-110); Magnesium 2.0 mg/dL (1.6-2.3); Potassium 4.7 mmol/L (3.4-5.0); Sodium 135 mmol/L (137-145); Total Protein 6.4 g/dL (6.3-8.2)
[2025-03-06 08:59] LABS: Hypochromasia 1+; Schistocytes None Seen
--- NOTE | 2025-03-06 14:37 | PM.IMPN ---
Progress Note: A&P Assessment and Plan (1) Right upper lobe pneumonia: Code(s): J18.9 - Pneumonia, unspecified organism Status: Acute (2) COPD (chronic obstructive pulmonary disease): Qualifiers: COPD type: unspecified COPD Qualified Code(s): J44.9 - Chronic obstructive pulmonary disease, unspecified Code(s): J44.9 - Chronic obstructive pulmonary disease, unspecified Status: Chronic (3) Essential hypertension: Code(s): I10 - Essential (primary) hypertension Status: Chronic (4) Urinary tract infection: Qualifiers: Hematuria presence: with hematuria Urinary tract infection type: site unspecified Qualified Code(s): N39.0 - Urinary tract infection, site not specified; R31.9 - Hematuria, unspecified Code(s): N39.0 - Urinary tract infection, site not specified Status: Acute (5) Cavitary lesion of lung: Code(s): J98.4 - Other disorders of lung Status: Acute Plan 69 years old female who is a smoker with past medical history of COPD on home 3 L oxygen who was recently diagnosed with hepatocellular carcinoma came to the emergency room with complaint of having sore throat cough shortness of breath going on for the last few days. CTA chest was negative for pulmonary embolism, aortic dissection, pericardial fluid or thoracic aneurysm.Airspace opacities within the right upper lobe is grossly unchanged. Cavitation lesion within this area is unchanged measuring 3.3 x 2.5 cm. This may represent atypical pneumonia however malignancy cannot be excluded. 1. Acute on chronic respiratory failure: Continue with O2 support Pulmonary and ID following Continue with ceftriaxone, azithromycin Continue with bronchodilators Further recommendations from ID and Pulmonary 2. Klebsiella UTI: Continue with ceftriaxone 3. DVT prophylaxis: Lovenox 4. Code status: Modified 5. Disposition: Pending improvement Time Spent With Patient Time: 39 mins Subjective Date/time seen: 03/06/25 14:37 Interval history: No acute events overnight Review of Systems Review of Systems: All systems reviewed & are unremarkable except as noted in HPI and below Exam Narrative: GENERAL: Cachectic, poorly nourished, no acute distress. HEAD: Normocephalic, atraumatic. EYES: PERRLA and EOMI. ENT: Nares clear, no rhinorrhea or epistaxis. Mucous membranes moist. Oropharynx without tonsillar hypertrophy exudate or other lesions. Bilateral TMs pearly ocasio non-bulging NECK: Supple. No adenopathy or masses. No carotid bruits or JVD CHEST: Decreased lung sounds in all hill. No respiratory distress, 3L at baseline. No wheezes rales or rhonchi HEART: Regular rate and rhythm. No murmur heard. Normal peripheral pulses. ABDOMEN: Suprapubic tenderness and decreased bowel sounds in all quadrants. EXTREMITIES: Normal range of motion. No edema. SKIN: Warm, dry, no rash. NEURO: No focal deficits. Alert and oriented x3. PSYCH: Normal mood and affect Objective Data Vital Signs Vital Signs: Vital Signs - 24 hr 03/05/25 16:00 03/05/25 20:00 03/05/25 20:04 Temperature Pulse Rate 74 77 77 Respiratory Rate 18 Blood Pressure Pulse Oximetry 98 Oxygen Delivery Nasal Cannula Oxygen Flow Rate 2 03/05/25 20:04 03/05/25 20:10 03/06/25 00:00 Temperature 98.4 F Pulse Rate 77 77 81 Respiratory Rate 18 18 Blood Pressure 125/54 L Pulse Oximetry 98 Oxygen Delivery Oxygen Flow Rate 03/06/25 03:14 03/06/25 03:17 03/06/25 04:00 Temperature Pulse Rate 120 H 120 H 82 Respiratory Rate 18 18 Blood Pressure Pulse Oximetry 94 Oxygen Delivery Nasal Cannula Oxygen Flow Rate 2 03/06/25 05:12 03/06/25 07:55 03/06/25 07:55 Temperature 97.4 F L Pulse Rate 77 84 84 Respiratory Rate 16 18 18 Blood Pressure 102/46 L Pulse Oximetry 98 93 Oxygen Delivery Nasal Cannula Oxygen Flow Rate 2 03/06/25 08:01 03/06/25 08:05 03/06/25 08:15 Temperature Pulse Rate 76 85 80 Respiratory Rate 18 Blood Pressure Pulse Oximetry Oxygen Delivery Oxygen Flow Rate 03/06/25 08:21 03/06/25 12:05 Temperature Pulse Rate 80 87 Respiratory Rate 16 Blood Pressure Pulse Oximetry 98 Oxygen Delivery Nasal Cannula Oxygen Flow Rate 2 Intake/Output Intake/Output: Intake & Output 03/03/25 03/04/25 03/05/25 03/06/25 23:59 23:59 22:59 23:59 Intake Total 1250 1120 1620 1020 Output Total 1050 2300 900 Balance 200 -4127 640 3817 Meds/Results Medications: Active Medications Generic Name Dose Route Start Last Admin Trade Name Freq PRN Reason Stop Dose Admin Acetaminophen 650 mg 03/02/25 21:11 03/05/25 10:57 Acetaminophen 325 Mg Tablet PO 650 mg Q4H PRN Administration Mild Pain (1-3) or Fever Acetylcysteine 200 mg 03/03/25 14:00 03/06/25 13:57 Acetylcysteine 20% Inhal Soln 800 Mg/4 Ml Vial INHALATION 200 mg Q6HRT ALBERTA Administration Albuterol/Ipratropium 3 ml 03/03/25 14:00 03/06/25 13:58 Ipratropium 0.5 Mg/Albuterol Sulfate 2.5 Mg (Base) Ampul.Neb 3 Ml INHALATION 3 ml Q6HRT ALBERTA Administration Aspirin 81 mg 03/03/25 09:00 03/06/25 08:14 Aspirin 81 Mg Enteric Tablet PO 81 mg DAILY ALBERTA Administration Azithromycin 500 mg 03/13/25 09:00 Azithromycin 500 Mg Tablet PO WEEKLY [facility] Benzocaine 1 lozenge 03/04/25 13:48 03/05/25 16:24 Benzocaine/Menthol (*Bkc) 18 Ea Lozenge PO 1 lozenge Q6HR PRN Administration Sore Throat Docusate Sodium 100 mg 03/06/25 21:00 Docusate Sodium 100 Mg Capsule PO Q12HR [facility] Enoxaparin Sodium 40 mg 03/03/25 09:00 03/06/25 08:17 Enoxaparin 40 Mg/0.4 Ml Syringe SUB-Q 40 mg DAILY [facility] Administration Ferrous Sulfate 325 mg 03/03/25 09:00 03/06/25 08:14 Ferrous Sulfate 325 Mg Tablet BY MOUTH 325 mg DAILY [facility] Administration Fluticasone Propionate 1 spray 03/03/25 09:00 03/03/25 11:21 Fluticasone Propionate 0.05% Na Spr 16 Gm Btl (*Bkc) NASAL 1 spray Q12HR PRN Administration Nasal Congestion Gabapentin 300 mg 03/03/25 09:00 03/06/25 08:14 Gabapentin 300 Mg Capsule PO 300 mg Q12HR ALBERTA Administration Guaifenesin 1,200 mg 03/03/25 09:00 03/06/25 08:14 Guaifenesin 12 Hr 600 Mg Tabcr PO 1,200 mg Q12HR ALBERTA Administration Ceftriaxone Sodium 1 gm/ 50 mls @ 100 mls/hr 03/03/25 21:00 03/05/25 21:15 Sodium Chloride IVPB Infused Q24H ALBERTA Infusion Loratadine 10 mg 03/03/25 09:00 03/06/25 08:15 Loratadine 10 Mg Tablet PO 10 mg DAILY ALBERTA Administration Lovastatin 40 mg 03/03/25 21:00 03/05/25 20:43 Lovastatin 20 Mg Tablet PO 40 mg HS ALBERTA Administration Metoprolol Succinate 25 mg 03/03/25 09:00 03/06/25 08:15 Metoprolol Succinate Ext Rel 25 Mg Tabcr BY MOUTH 25 mg DAILY ALBERTA Administration Moxifloxacin HCl 400 mg 03/07/25 09:00 Moxifloxacin Hcl 400 Mg Tablet PO QAM ALBERTA Oxycodone HCl 10 mg 03/03/25 09:00 03/06/25 08:14 Oxycodone Hcl (*Crx) 10 Mg Tab Sr 12hr PO 10 mg Q12HR ALBERTA Administration Pantoprazole Sodium 40 mg 03/03/25 09:00 03/06/25 08:16 Pantoprazole 40 Mg Tablet PO 40 mg BID ALBERTA Administration Rifampin 600 mg 03/06/25 14:35 Rifampin 300 Mg Capsule PO MOWEFR ALBERTA Senna/Docusate Sodium 2 tab 03/03/25 04:30 Senna/Docusate Sodium Tablet PO BID PRN Constipation Solifenacin 5 mg 03/03/25 21:00 03/05/25 20:43 Solifenacin 5 Mg Tablet PO 5 mg HS ALBERTA Administration Umeclidinium/Vilanterol 1 puff 03/03/25 08:00 03/06/25 08:09 Umeclidinium/Vilanterol 62.5-25 Mcg Ellipta INHALATION 1 puff DAILYRT ALBERTA Administration Vitamin D 125 mcg 03/04/25 09:00 03/06/25 08:14 Cholecalciferol (Vitamin D3) 125 Mcg (5,000 Units) Tablet PO 125 mcg DAILY ALBERTA Administration Radiology Results: ITS Impressions Chest CTA 03/02/25 19:42 IMPRESSION: There is no pulmonary embolism, aortic dissection, pericardial fluid or thoracic aneurysm. Airspace opacities within the right upper lobe is grossly unchanged. Cavitation lesion within this area is unchanged measuring 3.3 x 2.5 cm. This may represent atypical pneumonia however malignancy cannot be excluded. All CT scans at this facility are performed using low dose modulation techniques as appropriate to perform exam including the following: automated exposure control; use of iterative reconstruction technique; adjustment of the mA and/or kV according to patient size (this includes techniques or standardized protocols for targeted exams where dose is matched to indication/reason for exam). Chest X-Ray 03/05/25 09:25 IMPRESSION: 1. No significant change or worsening. Labs Labs: Laboratory Results - last 24 hr 03/04/25 03/06/25 06:16 08:28 WBC 5.6 RBC 3.44 L Hgb 9.3 L Hct 31.8 L MCV 92.4 MCH 27.0 MCHC 29.2 L RDW 13.4 Plt Count 175 MPV 9.1 Immature Gran % (Auto) 0.5 Neut % (Auto) 67.0 Lymph % (Auto) 21.9 Morrison % (Auto) 6.6 Eos % (Auto) 3.6 Baso % (Auto) 0.4 Lymph # (Auto) 1.23 Morrison # (Auto) 0.4 Eos # (Auto) 0.2 Baso # (Auto) 0.0 Abs Immat Gran (auto) 0.03 Absolute Neuts (auto) 3.8 Absolute Nucleated RBC 0.000 Band Neutrophils % Not Reportable Nucleated RBC % 0.0 Platelet Estimate Adequate Hypochromasia 1+ Schistocytes None seen Sodium 135 L Potassium 4.7 Chloride 99 Carbon Dioxide 29 Anion Gap 7 BUN 11 Creatinine 0.68 L Estim Creat Clear Calc 46 Estimated GFR > 60 Glucose 154 H Calcium 8.7 Magnesium 2.0 Total Bilirubin 0.2 AST 21 ALT 12 Alkaline Phosphatase 129 H Total Protein 6.4 Albumin 3.1 L M.pneumoniae IgM Titer <770 Quality VTE Prophylaxis VTE prophylaxis: pharmacologic ordered
[2025-03-06] MEDS: ACETAMINOPHEN 325 MG TABLET 650 MG PO (15:05)
[2025-03-06] MEDS: AZITHROMYCIN 500 MG TABLET PO (15:05)
[2025-03-06] MEDS: DOCUSATE SODIUM 100 MG CAPSULE PO (20:05)
[2025-03-06] MEDS: cefTRIAXone 1 GM in SODIUM CHLORIDE 0.9% IV 50 ML 100 ML IVPB (20:05)
[2025-03-06] MEDS: LOVASTATIN 20 MG TABLET 40 MG PO (20:06)
[2025-03-06] MEDS: SOLIFENACIN 5 MG TABLET PO (20:06)
[2025-03-07] VITALS (9 sets, daily range): BP systolic 100; BP diastolic 52; PULSE 70–77; RESP 18–20; TEMP 37.1; O2SAT 93–98
[2025-03-07] MEDS: IPRATROPIUM 0.5 MG/ALBUTEROL SULFATE 2.5 MG (BASE) AMPUL.NEB 3 ML INHALATION ×2 (02:55→07:50)
[2025-03-07] MEDS: ACETYLCYSTEINE 20% INHAL SOLN 800 MG/4 ML VIAL 200 MG INHALATION ×2 (02:55→07:50)
[2025-03-07] MEDS: ACETAMINOPHEN 325 MG TABLET 650 MG PO (03:25)
[2025-03-07 06:05] LABS: Hematocrit 33.4 % (37.0-47.0); Hemoglobin 9.7 g/dL (12.0-15.0); Immature Granulocyte Percent A 0.6 % (0-0.5); Lymphocytes Absolute Auto 0.94 K/mm3 (0.9-3.2); Mean Corpuscular HGB Conc 29.0 g/dl (32-36); Mean Corpuscular Hemoglobin 27.0 pg (26-34); Mean Corpuscular Volume 93.0 fl (80-100); Nucleated Red Blood Cells Absolute Auto 0.000 K/mm3 (0.0-0.012); Nucleated Red Blood Cells Perc 0.0 % (0.0-0.2); Platelet Count Result 210 k/mm3 (150-375); Red Blood Count 3.59 M/mm3 (4.2-5.4); White Blood Count 7.1 K/mm3 (4.5-10.0)
[2025-03-07 06:35] LABS: Blood Urea Nitrogen 13 mg/dL (7-17); Calcium 9.4 mg/dL (8.4-10.2); Carbon Dioxide > 40 mmol/L (22-30); Chloride 94 mmol/L (98-107); Estimated CRCL calculation 37 ml/min; Estimated Glomerular Filt Rate > 60; Glucose 110 mg/dL (65-110); Potassium 5.4 mmol/L (3.4-5.0); Sodium 137 mmol/L (137-145)
[2025-03-07 06:48] LABS: Hypochromasia 1+; Schistocytes None Seen
[2025-03-07] MEDS: UMECLIDINIUM/VILANTEROL 62.5-25 MCG ELLIPTA 1 PUFF INHALATION (07:50)
[2025-03-07] MEDS: oxyCODONE HCL (*CRX) 10 MG TAB SR 12HR PO (08:43)
[2025-03-07] MEDS: guaiFENesin 12 HR 600 MG TABCR 1200 MG PO (08:43)
[2025-03-07] MEDS: DOCUSATE SODIUM 100 MG CAPSULE PO (08:43)
[2025-03-07] MEDS: GABAPENTIN 300 MG CAPSULE PO (08:43)
[2025-03-07] MEDS: CHOLECALCIFEROL (VITAMIN D3) 125 MCG (5,000 UNITS) TABLET PO (08:43)
[2025-03-07] MEDS: LORATADINE 10 MG TABLET PO (08:43)
[2025-03-07] MEDS: FERROUS SULFATE 325 MG TABLET BY MOUTH (08:44)
[2025-03-07] MEDS: ASPIRIN 81 MG ENTERIC TABLET PO (08:44)
[2025-03-07] MEDS: MOXIFLOXACIN HCL 400 MG TABLET PO (08:44)
[2025-03-07] MEDS: PANTOPRAZOLE 40 MG TABLET PO (08:44)
[2025-03-07] MEDS: ENOXAPARIN 40 MG/0.4 ML SYRINGE SUB-Q (08:44)
[2025-03-07] MEDS: METOPROLOL SUCCINATE EXT REL 25 MG TABCR BY MOUTH (08:45)
[2025-03-07] MEDS: BENZOCAINE/MENTHOL (*BKC) 18 EA LOZENGE 1 LOZENGE PO (12:30)
--- NOTE | 2025-03-07 12:35 | P.DS_ITS ---
DS: Admitting Diagnosis Discharge Date 08/03/2010 in 5 Admitting Diagnosis Acute on chronic respiratory failure DS: Discharge Diagnosis Discharge Diagnosis (1) Mycobacterial disease, pulmonary: Code(s): A31.0 - Pulmonary mycobacterial infection Status: Acute (2) Chronic respiratory failure with hypoxia and hypercapnia: Code(s): J96.11 - Chronic respiratory failure with hypoxia; J96.12 - Chronic respiratory failure with hypercapnia Status: Chronic (3) COPD (chronic obstructive pulmonary disease): Qualifiers: COPD type: COPD with acute lower respiratory infection Qualified Code(s): J44.0 - Chronic obstructive pulmonary disease with (acute) lower respiratory infection Code(s): J44.9 - Chronic obstructive pulmonary disease, unspecified Status: Acute (4) Hepatocellular carcinoma determined by biopsy of liver: Code(s): C22.0 - Liver cell carcinoma Status: Acute Plan Continue taking azithromycin 500 mg 3 times a week, rifampin 600 mg 3 times awake and moxifloxacin 400 mg daily. Primary care physician follow-up. ID follow-up DS: Summary Hospital Course Reason for hospitalization: Acute on chronic hypoxic respiratory failure Hospital Course: Patient is a 69 years old female with a history of MAC who is a smoker with past medical history of COPD on home 3 L oxygen who was recently diagnosed with hepatocellular carcinoma came to the emergency room with complaint of having sore throat cough shortness of breath going on for the last few days. CTA chest was negative for pulmonary embolism, aortic dissection, pericardial fluid or thoracic aneurysm.Airspace opacities within the right upper lobe is grossly unchanged. Cavitation lesion within this area is unchanged measuring 3.3 x 2.5 cm. This may represent atypical pneumonia however malignancy cannot be excluded. Patient is on 2-3 L nasal cannula. Symptoms improved. ID consulted and she is started on azithromycin 500 mg 3 times a week, rifampin 600 mg 3 times a week and daily moxifloxacin 400 mg. Id will follow her as outpatient. Primary care physician follow-up. Patient was evaluated prior to leaving and issue was hemodynamically stable. Time Spent with Patient Time attestation: Total time spent providing and/or coordinating discharge services: Exam Narrative: GENERAL: Cachectic, poorly nourished, no acute distress. HEAD: Normocephalic, atraumatic. EYES: PERRLA and EOMI. ENT: Nares clear, no rhinorrhea or epistaxis. Mucous membranes moist. Oropharynx without tonsillar hypertrophy exudate or other lesions. Bilateral TMs pearly ocasio non-bulging NECK: Supple. No adenopathy or masses. No carotid bruits or JVD CHEST: Decreased lung sounds in all hill. No respiratory distress, 3L at baseline. No wheezes rales or rhonchi HEART: Regular rate and rhythm. No murmur heard. Normal peripheral pulses. ABDOMEN: Suprapubic tenderness and decreased bowel sounds in all quadrants. EXTREMITIES: Normal range of motion. No edema. SKIN: Warm, dry, no rash. NEURO: No focal deficits. Alert and oriented x3. PSYCH: Normal mood and affect DS: Data Data Completed and Pending Labs on day of discharge: Labs from last 24 hours 03/07/25 03/04/25 03/03/25 05:45 06:16 10:31 WBC 7.1 RBC 3.59 L Hgb 9.7 L Hct 33.4 L MCV 93.0 MCH 27.0 MCHC 29.0 L RDW 13.4 Plt Count 210 MPV 9.1 Immature Gran % (Auto) 0.6 H Neut % (Auto) 76.4 H Lymph % (Auto) 13.2 L Webster % (Auto) 7.0 Eos % (Auto) 2.4 Baso % (Auto) 0.4 Lymph # (Auto) 0.94 Webster # (Auto) 0.5 Eos # (Auto) 0.2 Baso # (Auto) 0.0 Abs Immat Gran (auto) 0.04 H Absolute Neuts (auto) 5.5 Absolute Nucleated RBC 0.000 Band Neutrophils % Not Reportable Nucleated RBC % 0.0 Platelet Estimate Adequate Hypochromasia 1+ Schistocytes None seen Sodium 137 Potassium 5.4 H Chloride 94 L Carbon Dioxide > 40 H Anion Gap BUN 13 Creatinine 0.86 Estim Creat Clear Calc 37 Estimated GFR > 60 Glucose 110 Calcium 9.4 Chlamy pneumoniae PCR Not detected Adenovirus (PCR) Not detected B. pertussis DNA (PCR) Not detected B.parapertussis DNA PCR Not detected Coronavirus OC43 (PCR) Not detected Coronavirus HKU1 (PCR) Not detected Coronavirus 229E (PCR) Not detected Coronavirus NL63 (PCR) Not detected Human Metapneumovir PCR Not detected Influenza A (H1) PCR Not detected Influ A (H1/09) PCR Not detected Influenza A (H3) PCR Not detected Influenza Type A (PCR) Not detected Influenza Type B (PCR) Not detected M.pneumoniae IgM Titer <770 M. pneumoniae (PCR) Not detected Parainfluenza 1 (PCR) Not detected Parainfluenza 2 (PCR) Not detected Parainfluenza 3 (PCR) Not detected Parainfluenza 4 (PCR) Not detected RSV (PCR) Not detected Entero/Rhino (PCR) Not detected SARS-CoV-2 (PCR) Not detected Preliminary micro results at discharge 03/03/25 12:48 Legionella Culture - Preliminary Sputum 03/02/25 18:24 Blood Culture - Preliminary Blood 03/02/25 18:28 Blood Culture - Preliminary Blood Discharge Plan Discharge Attending physician on discharge: Andreia Luong Consulting providers: Noble Newman; Charlee Hills; Andreia Luong Discharging Clinician: Andreia Luong Anticipated Discharge Date/Time: 03/07/25 12:27 Patient Disposition: Home Activity: unlimited Diet: as tolerated Wound Care Instructions: follow printed instructions Discharge Instructions: Start taking Zithromax in 500 mg 3 times a week Start taking rifampin 600 mg 3 times a week Start taking moxifloxacin 400 mg daily Please see your primary care physician soon Please make an appointment to follow-up with his infectious disease doctor Patient Instructions: Antibiotic Form, How to Stop Smoking (DC) Patient Language: Japanese Stand Alone Forms: General Discharge Information Follow-up/Referrals: Grace Mondragon DO [Primary Care Provider, [facility]] - 1 Week Discharge Medications: New azithromycin 500 mg Tablet 500 mg PO MoWeFr Qty: 60 0RF Continued aspirin [Adult Aspirin Regimen] 81 mg tablet,delayed release (DR/EC) 81 mg PO DAILY cyclobenzaprine 5 mg tablet 5 mg PO Q12H solifenacin [Vesicare] 10 mg tablet 5 mg PO HS albuterol sulfate 2.5 mg /3 mL (0.083 %) solution for nebulization 2.5 mg inhalation Q4-6H PRN (Reason: shortness of breath or wheezing) Qty: 180 3RF rifampin 300 mg Capsule 600 mg PO 3XW Qty: 60 0RF Xtampza ER 13.5 mg cap,sprinkl,ER12hr(DONT CRUSH) 13.5 mg PO Q12H albuterol sulfate 90 mcg/actuation HFA aerosol inhaler See Rx Instructions .ROUTE .COMPLEX PRN (Reason: Shortness Of Breath Or Wheezing) Rx Instructions: INHALE 1 PUFF BY MOUTH EVERY 4 HOURS NEEDED FOR SHORTNESS OF BREATH sennosides-docusate sodium [Senokot-S] 8.6-50 mg Tablet 2 tab-cap PO BID PRN (Reason: Constipation) Qty: 120 0RF loratadine 10 mg Tablet 10 mg PO DAILY cholecalciferol (vitamin D3) [Vitamin D3] 125 mcg (5,000 unit) Tablet 125 mcg PO DAILY guaifenesin [Mucinex] 600 mg Tablet Extended Release 12hr 1,200 mg PO Q12H omeprazole 40 mg capsule,delayed release(DR/EC) 40 mg PO DAILY Qty: 90 1RF Rx Instructions: TAKE 1 CAPSULE BY MOUTH DAILY Stiolto Respimat 2.5-2.5 mcg/actuation mist See Rx Instructions .ROUTE .COMPLEX Qty: 4 11RF Dose Instruction: INHALE 2 PUFFS BY MOUTH DAILY Rx Instructions: INHALE 2 PUFFS BY MOUTH DAILY gabapentin 300 mg capsule 300 mg PO Q12H Qty: 180 0RF ferrous sulfate [FeroSul] 325 mg (65 mg iron) tablet See Rx Instructions .ROUTE .COMPLEX Qty: 30 3RF Dose Instruction: TAKE 1 TABLET BY MOUTH EVERY MORNING Rx Instructions: TAKE 1 TABLET BY MOUTH EVERY MORNING metoprolol succinate 25 mg tablet extended release 24 hr See Rx Instructions .ROUTE .COMPLEX Qty: 90 2RF Dose Instruction: TAKE 1 TABLET BY MOUTH DAILY Rx Instructions: TAKE 1 TABLET BY MOUTH DAILY fluticasone propionate 50 mcg/actuation spray,suspension See Rx Instructions .ROUTE .COMPLEX Qty: 48 6RF Dose Instruction: SHAKE LIQUID AND USE 1 SPRAY IN EACH NOSTRIL TWICE DAILY NEEDED FOR NASAL CONGESTION Rx Instructions: SHAKE LIQUID AND USE 1 SPRAY IN EACH NOSTRIL TWICE DAILY NEEDED FOR NASAL CONGESTION lovastatin 40 mg tablet 40 mg PO HS Qty: 90 1RF moxifloxacin 400 mg Tablet 400 mg PO QAM Qty: 60 0RF Date of admission: 03/04/25 17:50 Primary Care Provider: Grace Mondragon Admitting Provider: Raya Haddad Attending physician on admission: Raya Haddad Condition: Stable
== END 2025-03-07 14:00 | disposition home or self-care (01) | DRG 193 ==
LOC: ANHED 18:19 → ANH3MEDSUR 22:29
PROVIDERS: Internal Medicine; Internal Medicine Pulmonary Disease; Nurse Practitioner; Nurse Practitioner Family; Admitting Provider Internal Medicine; PCP Family Medicine; Visit Provider Student in an Organized Health Care Education/Training Program
DX: J18.9 Pneumonia, unspecified organism (principal); J96.21 Acute and chronic respiratory failure with hypoxia; J96.22 Acute and chronic respiratory failure with hypercapnia; J44.1 Chronic obstructive pulmonary disease with (acute) exacerbation; C22.0 Liver cell carcinoma; J44.0 Chronic obstructive pulmonary disease with (acute) lower respiratory infection; N39.0 Urinary tract infection, site not specified; R64 Cachexia; Z68.1 Body mass index [BMI] 19.9 or less, adult; E44.0 Moderate protein-calorie malnutrition; A31.0 Pulmonary mycobacterial infection; I10 Essential (primary) hypertension; Z91.148 Patient's other noncompliance with medication regimen for other reason; B96.1 Klebsiella pneumoniae [K. pneumoniae] as the cause of diseases classified elsewhere; Z66 Do not resuscitate; E55.9 Vitamin D deficiency, unspecified; E53.8 Deficiency of other specified B group vitamins; D50.9 Iron deficiency anemia, unspecified; G25.81 Restless legs syndrome; K21.9 Gastro-esophageal reflux disease without esophagitis; E78.5 Hyperlipidemia, unspecified; G62.9 Polyneuropathy, unspecified; M85.80 Other specified disorders of bone density and structure, unspecified site; K58.9 Irritable bowel syndrome, unspecified; M54.16 Radiculopathy, lumbar region; Z20.822 Contact with and (suspected) exposure to COVID-19; F41.9 Anxiety disorder, unspecified; J32.8 Other chronic sinusitis; J98.4 Other disorders of lung; F17.210 Nicotine dependence, cigarettes, uncomplicated; Z96.82 Presence of neurostimulator; Z99.81 Dependence on supplemental oxygen; Z79.891 Long term (current) use of opiate analgesic; Z79.51 Long term (current) use of inhaled steroids; Z79.2 Long term (current) use of antibiotics; Z87.19 Personal history of other diseases of the digestive system
CPT/HCPCS: 36415; 36600; 71045; 71046; 71275; 80048; 80053; 81001; 82805; 83605; 83735; 83880; 84145; 85018; 85025; 85027; 86140; 86738; 87040; 87077; 87086; 87186; 87449; 87637; 87641; 87899; 94640; 96365; 99285; A9270; G0378; J0456; J0696; J1650; J3373; J7030; J7050; Q9967

== ENCOUNTER 2025-03-11 16:43 | Emergency (ER) | payer MEDICARE, MEDICAID, SELFPAY ==
--- OUTSIDE RECORDS SUMMARY | 2006-01-26 08:13 | XMS_ITS | Continuity of Care Document ---
Author Organization [facility] Address [address] [facility] [address] [place] [address] Phone Care Team Providers Care Building Trades Instructor Name Role Phone Sherif Doyle MD Unavailable Unavailable Allergies, Adverse Reactions, Alerts Substance Reaction Status Criticality PENICILLIN G POTASSIUM Active No In formation MEPERIDINE HCL Active No Informatio n Medications Medication Instructions Dosage Effective Dates (start - stop) Status Comments METHADOSE 5 MGTABLET tk 2 ts qd - Acti ve Lidoderm 5 % (700 mg/patch) Adhesive Patch - Active Miacalcin 200 unit/Actuation Nasal Thayer Aerosol 1 spray each nostril qd - Active ONE A DAY VITAMIN TABLET 1 t po qd - Active AMITRIPTYLINE HCL 10MGTABLET tk 1 t qd - Active NASACORT (unknown strength) 4-8 sprays qd Not Available - Active Aciphex 20 mg Tab tk 1 t po qd - Active Zanaflex 4 mg Tab tk 1 t po tid - Active Keppra 500 mg Tab 1 t po bid - Active Procedures Procedure Date Offic/outpt E&m Estab Minor 06 Misc Service Nerv Conduc Stdy Ea Nerv; Donna 06 Nerv Conduc Study Ea Nerv; Sen 06 H - Reflex H - Reflex Offic/outpt E&m Estab Low-mod 6 Offic/outpt E&m Estab Low-mod 6 Offic/outpt E&m Estab Minor 10 06 Phys Therap Re-eval Therap 1/> Areas/15 Min; Exerc Applic Modal 1/> Areas; Elec S Applic Modal 1/> Areas; Elec S Therap 1/> Areas/15 Min; Exerc Applic Modal 1/> Areas; Ultras Applic Modal 1/> Areas; Elec S 06 Therap 1/> Areas/15 Min; Exerc Applic Modal 1/> Areas; Ultras Man Ther Tech-1/> Regions-ea 06 Therap 1/> Areas/15 Min; Exerc 06 Therap 1/> Area/15 Min; Balnc/ Applic Modal 1/> Areas; Elec S 06 Therap 1/> Areas/15 Min; Exerc Applic Modal 1/> Areas; Elec S Man Ther Tech-1/> Regions-ea 06 Phys Therap Eval Applic Modal 1/> Areas; Ultras Applic Modal 1/> Areas; Elec S Offic Cons New/estab Mod-hi 60 06 Advance Directives Directive Yes / No Effective Date File Name No Information Encounters Encounter Description Practice Location Reason(s) For Visit Diagnoses Date Provider Providers Copied on Encounter [facility], [address], [id number], [place] tel:[phone] [facility] No Information 6 Vivek Gorman. [address] [place] [address], [id number] , [place]. tel:[phone] Offic/outpt E&m Estab Minor 10 [facility], [address] [address], [place], [place], [id number], [place] tel:[phone] [facility] No Information 6 José Luis Sullivan. [address] [facility], [address], [id number] , [place]. tel:[phone] Referring Provider: Nate Ordonez V, [address], [address] . tel:[phone] [facility], [address], [place], [place], [address], [place] tel:[phone] [facility] No Information 6 José Luis Sullivan. [address], [place], [place], [id number] , [place]. tel: [phone] Referring Provider: Nate Ordonez V, [address], [place], [address] . tel:[phone] [facility], [address], [place], [address], [place] tel:[phone] [facility] No Information 6 José Luis Sullivan. [address], [place], [place], [address] , [place]. tel: [phone] Referring Provider: Nate Ordonez V, [address], [place], [address] . tel:[phone] Offic/outpt E&m Estab Low-mod [facility], [address], [place], [place], [address], [place] tel:[phone] [facility] No Information 6 José Luis Sullivan. [address], [address], [place], [address] , [place]. tel:[phone] Referring Provider: Nate Ordonez V, [address], [place], [address] . tel:[phone] Offic/outpt E&m Estab Low-mod [facility], [address], [place], [place], [address], [place] tel:[phone] [facility] No Information 6 José Luis Sullivan. [address], [address], [place], [address] , [place]. tel: [phone] Referring Provider: Nate Ordonez V, [address], [place], [address] . tel:[phone] Offic/outpt E&m Estab Minor 10 [facility], [address], [place], [address], [place] tel:[phone] [facility] No Information May-0 9-200 6 José Luis Sullivan. [address], [address], [place], [place], [address] , [place]. tel:[phone] Referring Provider: Nate Ordonez V, [address], [place], [address] . tel:[phone] [facility], [address], [place], [address], [place] tel:[phone] [facility] No Information May-0 5-200 6 José Luis Sullivan. [address], [place], [address] , [place]. tel:[phone] Referring Provider: Nate Ordonez V, [address], [place], [address] . tel:[phone] [facility], [address], [place], [address], [place] tel:[phone] [facility] No Information May-0 2-200 6 José Luis Sullivan. [address], [place], [address] , [place]. tel:[phone] Referring Provider: Nate Ordonez V, [address], [place], [address] . tel:[phone] [facility], [address], [place], [address], [place] tel:[phone] [facility] No Information Apr-2 8-200 6 Ordonez Nate. [address], [place], [address] , [place]. tel:[phone] Referring Provider: Nate Ordonez V, [address], [place], [address] . tel:[phone] [facility], [address], [place], [address], [place] tel:[phone] [facility] No Information Aug- 5-200 6 José Luis Sullivan. [address], [place], [id number] , [place]. tel:[phone] Referring Provider: Nate Ordonez V, [address], [place], [address] . tel:[phone] [facility], [address], [place], [address], [place] tel:[phone] [facility] No Information 6 José Luis Sullivan. [address], [place], [place], [address] , [place]. tel:[phone] Referring Provider: Nate Ordonez V, [address], [place], [address] . tel:[phone] [facility], [address], [place], [address], [place] tel:[phone] [facility] No Information 200 6 José Luis Sullivan. [address], [place], [address] , [place]. tel:[phone] Referring Provider: Nate Ordonez V, [address], [place], [address] . tel:[phone] Offic Cons New/estab Mod-hi 60 [facility], [address], [place], [address], [place] tel:[phone] [facility] No Information 8-200 6 José Luis Sullivan. [address], [facility] [address], [place], [address] , [place]. tel:[phone] Referring Provider: Nicho Goldstein MD B, [address] [place] [place], [address]. tel:[phone] Family History Family Member Type Diagnosis Age At Onset Gen Fam Hx Problem (finding) Cancer Gen Fam Hx Problem (finding) Stroke Payers Payer name Insurance type Covered green party ID Authorstepha jevon(s) BCBS Of [facility] [id number] Social History Type Description Quantity Date Captured Comments Sex Female Smoking Status No Information Chief Complaint And Reason For Visit No Information Reason For Referral Reason For Referral No Information History Of Present Illness Encounter Date Complaint History Of Prese nt Illness No Information Functional Status Date Functional Assessmen t No Information Instructions Date Instruction Additional Infor mation No Information Assessments Type Assessment Date No Information Patient Care Teams Name Effective Dates (start - stop) Status Members No Information
--- NOTE | ~2025-03-11 | XR_ITS ---
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 Findings: There are chronic changes noted bilaterally with hyperexpansion of the lungs with focal infiltrate in the right upper lobe and thickening of the right lung apex. No pneumothorax. Heart is normal size. Mediastinal and hilar contours are within normal limits. Bony thorax no acute abnormality. Impression: Probable right upper lobe bronchopneumonia superimposed on chronic lung disease. Underlying mass is not excluded. Follow-up recommended to assess improvement. Reviewed, dictated and finalized at location P. TRIC DISTRIBUTION CHECKER Impression: Probable right upper lobe bronchopneumonia superimposed on chronic lung disease . Underlying mass is not excluded. Follow-up recommended to assess improvement.
[2025-03-11 16:49] VITALS: BP 122/43; PULSE 79; RESP 18; TEMP 37.1; O2SAT 96
--- NOTE | 2025-03-11 17:31 | ED.URI ---
HPI - URI/Sore Throat General Chief Complaint: Upper Respiratory Infection Stated Complaint: I have a cold, flu, or pneumonia Time Seen by Provider: 03/11/25 17:10 Source: patient Mode of arrival: ambulatory Limitations: no limitations History of Present Illness HPI Narrative: This is a 69 year old female that presents to the ER for cold symptoms. Ongoing over the last couple of days. Reports productive cough, congestion, subjective fevers, chills. Reports shortness of breath. Related Data Home Medications ?Medication ?Instructions ?Recorded ?Confirmed ?Last Taken ?Type aspirin 81 mg tablet,delayed 81 mg PO DAILY 06/02/19 03/02/25 02/16/25 History release (Adult Aspirin Regimen) cyclobenzaprine 5 mg tablet 5 mg PO Q12H 01/05/20 03/02/25 02/16/25 History oxycodone myristate 13.5 mg 13.5 mg PO Q12H 11/19/21 03/02/25 02/16/25 History capsule sprinkle extend release 12hr(DON'T CRUSH) (Xtampza ER) solifenacin 10 mg tablet (Vesicare) 5 mg PO HS 02/04/23 03/02/25 02/16/25 History cholecalciferol (vitamin D3) 125 125 mcg PO DAILY 07/24/23 03/02/25 02/16/25 History mcg (5,000 unit) tablet (Vitamin D3) guaifenesin 600 mg tablet, 1,200 mg PO Q12H 07/24/23 03/02/25 02/16/25 History extended release 12 hr (Mucinex) loratadine 10 mg tablet 10 mg PO DAILY 07/24/23 03/02/25 02/16/25 History albuterol sulfate 90 mcg/actuation See Rx Instructions .Route 03/15/24 03/02/25 02/16/25 History aerosol inhaler .COMPLEX PRN Shortness Of Breath Or Wheezing Allergies Allergy/AdvReac Type Severity Reaction Status Date / Time Penicillins Allergy Severe Anaphylaxis Verified 03/02/25 23:30 meperidine Allergy Intermediate Itching Verified 03/02/25 23:30 sulfamethoxazole (From Allergy Intermediate Mouth Verified 03/02/25 23:30 Bactrim) burning/redness trimethoprim (From Bactrim) Allergy Intermediate Mouth Verified 10/30/25 23:30 burning/redness mirtazapine AdvReac Mild Headache Verified 03/02/25 23:30 Review of Systems Review of Systems: All systems reviewed & are unremarkable except as noted in HPI and below PMFSH Past Medical History Medical History Vitamin D deficiency B12 deficiency Mixed incontinence Liana esophagitis Peripheral neuropathy Raynaud disease OSWALD (iron deficiency anemia) Osteopenia RLS (restless legs syndrome) Chronic narcotic use On home O2 Chronic sinusitis Olecranon bursitis, left elbow PSVT (paroxysmal supraventricular tachycardia) Kidney stones Fibromyalgia Rheumatoid arthritis Constipation IBS (irritable bowel syndrome) GERD (gastroesophageal reflux disease) Lumbar radiculopathy Esophageal stricture Status post dilatation ILD (interstitial lung disease) Small amount of interstitial lung disease was seen on base of lungs on chest CT 03/25/2018 which was an abdomen and pelvis CT Essential hypertension Collagen vascular disease Hyperlipidemia, unspecified Anxiety 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, patient unsure of this diagnosis COPD (chronic obstructive pulmonary disease) With severe obstructive disease noted on recent PFTs October 2024 with significant decompensation compared to prior study Tobacco abuse Quit 08/2024 Surgical History Surgical History History of esophagogastroduodenoscopy (EGD) With history of esophageal dilatation of History of colonoscopy with polypectomy History of partial hysterectomy Status post insertion of spinal cord stimulator History of bladder suspension procedure History of appendectomy History of lumbar surgery Spinal cord stimulator implanted 05/23/21 Family History Family History Mother Patient's mother is , Onset Age: 72 Sibling Carcinoma of colon Ovarian cancer Lung cancer Rectal cancer Family history of malignant neoplasm of breast in first degree relative Father Brain aneurysm Cerebrovascular accident, Onset Age: 54 Other Arthritis COPD (chronic obstructive pulmonary disease) High cholesterol Hypertension Lung disease Neuropathy Social History Social History Social History: The patient reports that she has been since 2007 and lives alone. She has 1 son who lives in [place]. She quit smoking in August 2024 of months prior to that she smoked a pack of cigarettes per day for close to 60 years. She denies any significant alcohol use. Code status: DNR/DNI (she would be okay with pressors if needed for blood pressure support) Healthcare power of claim attorney: Cole (son) or Romi (friend) Smoking packs per day: 0.5 Smoking cigarettes per day: 10.0 Years smoked: 60 Smoking pack-years: 30.00 Tobacco type: cigarettes Second hand tobacco smoke exposure: Yes Additional smoking assessment comments: Using Nicotine patches AT TIMES Alcohol intake: never Substance use: never Substance use type: does not use Do You Feel Safe in your Home?: Yes Lack of Transportation: No Lack of Food: Never True Current Housing: I Have Housing Concerned About Future Housing: No Difficulty Paying Gas/Electric Bills: No Difficulty Paying for Meds: No Currently Unemployed: No Education: Trade/Vocational Certificate Difficulty w/ Childcare or Family Care: No Living arrangements: alone Occupation/Education: retired Gender identity (if verbalized by the patient): Female Spiritual care concerns: No Exam Narrative: GENERAL: Chronically ill-appearing, well-nourished, and in no acute distress. HEAD: Normocephalic, atraumatic. EYES: EOMI. ENT: Nares clear, no rhinorrhea or epistaxis. Mucous membranes moist. Oropharynx without tonsillar hypertrophy exudate or other lesions. Bilateral TMs pearly ocasio non-bulging NECK: Supple. No adenopathy or masses. CHEST: Clear to auscultation. No respiratory distress. No wheezes rales or rhonchi HEART: Regular rate and rhythm. No murmur heard. Normal peripheral pulses. EXTREMITIES: Normal range of motion. No edema. SKIN: Warm, dry, no rash. NEURO: No focal deficits. Alert and oriented x3. PSYCH: Normal mood and affect Course Vital Signs Vital signs: Vital Signs Temperature 98.8 F 03/11/25 16:49 Pulse Rate 79 03/11/25 16:49 Respiratory Rate 18 03/11/25 16:49 Blood Pressure 122/43 L 03/11/25 16:49 Pulse Oximetry 96 03/11/25 16:49 Oxygen Delivery Room Air 03/11/25 16:49 Temperature 98.8 F 03/11/25 16:49 Pulse Rate 70 03/11/25 19:18 Respiratory Rate 18 03/11/25 19:18 Blood Pressure 144/63 H 03/11/25 19:18 Pulse Oximetry 98 03/11/25 19:18 Oxygen Delivery Room Air 03/11/25 16:49 MDM - URI/Sore Throat MDM Narrative Medical decision making narrative: Patient presents to the ER for cough, subjective fevers. She is afebrile and nontoxic appearing. Her vitals are stable. CBC without leukocytosis. Hemoglobin is stable. Metabolic panel without concerning findings. Influenza, RSV COVID screens are negative. Chest x-ray showing chronic findings of MAC infection. Instructed to have continued follow-up with her PCP and Infectious Disease and take her antibiotics as prescribed. She was given warnings to return to the ER Differential Diagnosis Differential diagnosis: Likely upper respiratory infection, sinusitis, viral infection, bronchitis, influenza and other (pneumonia) Lab Data Attestation: I reviewed the patient's lab results. 03/11/25 17:41 03/11/25 17:41 Labs: Lab Results 03/11/25 03/11/25 Range/Units 17:15 17:41 WBC 6.4 (4.5-10.0) K/mm3 RBC 3.57 L (4.2-5.4) M/mm3 Hgb 9.7 L (12.0-15.0) g/dL Hct 32.1 L (37.0-47.0) % MCV 89.9 (80-100) fl MCH 27.2 (26-34) pg MCHC 30.2 L (32-36) g/dl RDW 13.5 (11.5-14.5) % Plt Count 245 (150-375) k/mm3 MPV 8.9 (7.4-10.4) fl Immature Gran % (Auto) 0.5 (0-0.5) % Neut % (Auto) 72.9 (45.5-73.1) % Lymph % (Auto) 16.3 L (18.3-44.2) % Nuckolls % (Auto) 7.8 (2.6-8.5) % Eos % (Auto) 1.9 (0-4.4) % Baso % (Auto) 0.6 (0.2-1.2) % Lymph # (Auto) 1.04 (0.9-3.2) K/mm3 Nuckolls # (Auto) 0.5 (0.1-0.6) K/mm3 Eos # (Auto) 0.1 (0-0.3) K/mm3 Baso # (Auto) 0.0 (0.0-0.1) K/mm3 Abs Immat Gran (auto) 0.03 (0.00-0.031) K/mm3 Absolute Neuts (auto) 4.7 (1.3-6.7) K/mm3 Absolute Nucleated RBC 0.000 (0.0-0.012) K/mm3 Nucleated RBC % 0.0 (0.0-0.2) % Sodium 137 (137-145) mmol/L Potassium 4.2 (3.4-5.0) mmol/L Chloride 103 (98-107) mmol/L Carbon Dioxide 29 (22-30) mmol/L Anion Gap 5 (4-12) mmol/L BUN 8 D (7-17) mg/dL Creatinine 0.70 (0.7-1.0) mg/dL Estim Creat Clear Calc Not Reportable Estimated GFR > 60 (59 - ) Glucose 109 (65-110) mg/dL Calcium 8.8 (8.4-10.2) mg/dL Total Bilirubin 0.2 (0.2-1.3) mg/dL AST 24 (14-36) U/L ALT 12 (6-35) U/L Alkaline Phosphatase 109 (38-126) U/L Total Protein 7.6 (6.3-8.2) g/dL Albumin 3.6 (3.5-5.1) g/dL Influenza A (RT-PCR) Negative (Negative) Influenza B (RT-PCR) Negative (Negative) RSV (RT-PCR) Negative (Negative) SARS-CoV-2 RNA (RT-PCR) Negative (Negative) Imaging Data My impression: Chest x-ray: Chronic, stable findings ECG Data EKG #1: ECG completion date: 03/11/25 EKG Interpretation: normal rate, sinus rhythm, no ST changes and normal QT Critical Care Time Critical Care Time Critical Care Time: No Discharge Plan Discharge Clinical Impression: Mycobacterium avium infection COPD (chronic obstructive pulmonary disease) Qualifiers: COPD type: unspecified COPD Qualified Code(s): J44.9 - Chronic obstructive pulmonary disease, unspecified Patient Disposition: Home Condition: Stable Instructions: Antibiotic Form, COPD (Chronic Obstructive Pulmonary Disease) (ED) Additional Instructions: Return to the emergency department for worsening symptoms, or any other concerns Remain well-hydrated, get plenty of rest. Take Tylenol or Motrin [id number] for pain as needed. Continue your antibiotics as prescribed Follow up with primary care doctor and infectious disease as directed Patient Language: Upper Sorbian Prescriptions: No Action aspirin [Adult Aspirin Regimen] 81 mg tablet,delayed release (DR/EC) 81 mg PO DAILY cyclobenzaprine 5 mg tablet 5 mg PO Q12H solifenacin [Vesicare] 10 mg tablet 5 mg PO HS albuterol sulfate 2.5 mg /3 mL (0.083 %) solution for nebulization 2.5 mg inhalation Q4-6H PRN (Reason: shortness of breath or wheezing) Qty: 180 3RF rifampin 300 mg Capsule 600 mg PO 3XW Qty: 60 0RF Xtampza ER 13.5 mg cap,sprinkl,ER12hr(DONT CRUSH) 13.5 mg PO Q12H albuterol sulfate 90 mcg/actuation HFA aerosol inhaler See Rx Instructions .ROUTE .COMPLEX PRN (Reason: Shortness Of Breath Or Wheezing) Rx Instructions: INHALE 1 PUFF BY MOUTH EVERY 4 HOURS NEEDED FOR SHORTNESS OF BREATH sennosides-docusate sodium [Senokot-S] 8.6-50 mg Tablet 2 tab-cap PO BID PRN (Reason: Constipation) Qty: 120 0RF azithromycin 500 mg Tablet 500 mg PO MoWeFr Qty: 60 0RF moxifloxacin 400 mg Tablet 400 mg PO QAM Qty: 60 0RF loratadine 10 mg Tablet 10 mg PO DAILY cholecalciferol (vitamin D3) [Vitamin D3] 125 mcg (5,000 unit) Tablet 125 mcg PO DAILY guaifenesin [Mucinex] 600 mg Tablet Extended Release 12hr 1,200 mg PO Q12H omeprazole 40 mg capsule,delayed release(DR/EC) 40 mg PO DAILY Qty: 90 1RF Rx Instructions: TAKE 1 CAPSULE BY MOUTH DAILY Stiolto Respimat 2.5-2.5 mcg/actuation mist See Rx Instructions .ROUTE .COMPLEX Qty: 4 11RF Dose Instruction: INHALE 2 PUFFS BY MOUTH DAILY Rx Instructions: INHALE 2 PUFFS BY MOUTH DAILY gabapentin 300 mg capsule 300 mg PO Q12H Qty: 180 0RF ferrous sulfate [FeroSul] 325 mg (65 mg iron) tablet See Rx Instructions .ROUTE .COMPLEX Qty: 30 3RF Dose Instruction: TAKE 1 TABLET BY MOUTH EVERY MORNING Rx Instructions: TAKE 1 TABLET BY MOUTH EVERY MORNING metoprolol succinate 25 mg tablet extended release 24 hr See Rx Instructions .ROUTE .COMPLEX Qty: 90 2RF Dose Instruction: TAKE 1 TABLET BY MOUTH DAILY Rx Instructions: TAKE 1 TABLET BY MOUTH DAILY fluticasone propionate 50 mcg/actuation spray,suspension See Rx Instructions .ROUTE .COMPLEX Qty: 48 6RF Dose Instruction: SHAKE LIQUID AND USE 1 SPRAY IN EACH NOSTRIL TWICE DAILY NEEDED FOR NASAL CONGESTION Rx Instructions: SHAKE LIQUID AND USE 1 SPRAY IN EACH NOSTRIL TWICE DAILY NEEDED FOR NASAL CONGESTION lovastatin 40 mg tablet 40 mg PO HS Qty: 90 1RF Follow-up/Referrals: Grace Mondragon DO [Primary Care Provider, Family Practice]
--- NOTE | 2025-03-11 17:32 | ECG_ITS ---
Test Date: 2025-03-11 17:44:20 Measurements Intervals Jesse Rate: 71 P: 77 NJ: 151 QRS: 41 QRSD: 93 T: 60 QT: 401 QTc: 436 Interpretive Statements SINUS RHYTHM NORMAL ECG Compared to ECG 12/07/2024 20:22:41 No significant changes Electronically Signed On 03-12-2025 08:35:32 STEM TEACHER by Silas Campoverde M.D.
[2025-03-11 17:48] LABS: Hematocrit 32.1 % (37.0-47.0); Hemoglobin 9.7 g/dL (12.0-15.0); Immature Granulocyte Percent A 0.5 % (0-0.5); Lymphocytes Absolute Auto 1.04 K/mm3 (0.9-3.2); Mean Corpuscular HGB Conc 30.2 g/dl (32-36); Mean Corpuscular Hemoglobin 27.2 pg (26-34); Mean Corpuscular Volume 89.9 fl (80-100); Nucleated Red Blood Cells Absolute Auto 0.000 K/mm3 (0.0-0.012); Nucleated Red Blood Cells Perc 0.0 % (0.0-0.2); Platelet Count Result 245 k/mm3 (150-375); Red Blood Count 3.57 M/mm3 (4.2-5.4); White Blood Count 6.4 K/mm3 (4.5-10.0)
[2025-03-11 17:58] LABS: Influenza A QL RT-PCR Negative (Negative); Influenza B QL RT-PCR Negative (Negative); RSV RNA, RT-PCR Negative (Negative); SARS-CoV-2 RNA PCR Negative (Negative)
[2025-03-11 18:02] LABS: Alanine Aminotransferase 12 U/L (6-35); Albumin Level 3.6 g/dL (3.5-5.1); Alkaline Phosphatase 109 U/L (38-126); Anion Gap 5 mmol/L (4-12); Aspartate Amino Transferase 24 U/L (14-36); Bilirubin,Total 0.2 mg/dL (0.2-1.3); Blood Urea Nitrogen 8 mg/dL (7-17); Calcium 8.8 mg/dL (8.4-10.2); Carbon Dioxide 29 mmol/L (22-30); Chloride 103 mmol/L (98-107); Estimated Glomerular Filt Rate > 60; Glucose 109 mg/dL (65-110); Potassium 4.2 mmol/L (3.4-5.0); Sodium 137 mmol/L (137-145); Total Protein 7.6 g/dL (6.3-8.2)
--- OUTSIDE RECORDS SUMMARY | 2025-03-11 18:09 | XMS_ITS | Clinical Summary ---
[facility] Organization [facility] Address [address] [address] Care Team Providers Care Template Reproduction Technician Name Role Phone Unavailable Primary Care Provider [...] Encounters Date Type Department Care Team Description 03/07/2025 External Device Data STL ABSTRACTION Provider, Abstract 03/07/2025 External Device Data STL ABSTRACTION Provider, Abstract 01/31/2025 External Device Data STL ABSTRACTION Provider, Abstract 01/03/2025 External Device Data STL ABSTRACTION Provider, Abstract 12/29/2024 [facility] Surgical Oncology [place] [address] [place] [address] Mary Rand MD Needs Appointment 12/28/2024 Telephone [facility] Surgical Oncology [place] [address] [place] [address] Mary Rand MD Appointment Correction 12/27/2024 External Device Data STL ABSTRACTION Provider, Abstract 12/21/2024 External Device Data STL ABSTRACTION Provider, Abstract 12/20/2024 External Device Data STL ABSTRACTION Provider, Abstract from Last 3 Months Family History Medical [...] 2024 01/13/2018 Medical Devices Implanted Type Area Production Assembly Supervisor Device Identifier Shelf Expiration Date Model / Serial / Lot Neuro Stimulator Neuro Stimulator [facility] 3660 / / Description:Leads - 3228 MRI [...] between sessions. PT must bring in remote [place] [place]18/24 [place] [facility] PPO SNP MCR [place] RX OPTUM RX Member Subscriber Plan / Payer (Ef fective 2024-Present) Name:Melyssa Mccall Relation to Subscriber:Self Name:Melyssa Mccall Payer ID:Not on file Group ID:[id number] Type:RX Medicare Part D Address: [address]IE LUCAS RX [place] Medicaid RX PANDYA PLANS (INTERNAL) [facility] Plans Advance Directives For more information, please contact: [phone] * NO CPR (In Event of Cardiopulmonary [...]
--- OUTSIDE RECORDS SUMMARY | 2025-03-11 18:09 | XMS_ITS | Clinical Summary ---
Author Organization [facility] Address [address] [place] [id number] Care Team Providers Care Hide Mill Man Name Role Phone Tommy Kingian Primary Care [...] on file Legal Sex Female 4:04 AM CULLET CRUSHER Gender Identity Not on file Sexual Orientation [...] Completed 04/24/2018, 01/27/2018 Insurance MEDICARE IDPA MEDICARE [facility] Care Teams Hide Mill Man Relationship Specialty Start Date End Date Tommy King DO PCP - General Internal Medicine 09/11/20
--- OUTSIDE RECORDS SUMMARY | 2025-03-11 18:09 | XMS_ITS | Encounter Summary ---
Author Organization [facility] Address [facility] [place] [address] Care Team Providers Care Verifier Name Role Phone Milena Dos Santos MD Primary Care Provider [phone] Tommy King DO Primary Care Provider [phone] West Pino MD Unavailable [phone] Yvan Jaime MD Unavailable [phone] None, Provider MD Primary Care Provider Unavaila ble Encounter Details Date Type Department Care Team (Latest Contact Info) Description 03/09/2018 Abstract [facility] Medical [facility] Michael Mclean MD Social History Tobacco Use Types Packs/Day Years Used Date Smoking Tobacco: Smoker, Current Status Unknown Comments Unknown Sex and Gender Information Value Date Recorded Sex Assigned at Not on file Legal Sex Female 11:35 PM CDT Gender Identity Female 05/09/2021 3:57 PM FIELD INSURANCE SALES MANAGER Sexual Orientation Straight 05/09/2021 3: 57 PM FIELD INSURANCE SALES MANAGER documented as of this encounter Plan of Treatment Not on file documented as of this encounter Visit Diagnoses Not on filedocumented in this encounter Care Teams Verifier Relationship Specialty Start Date End Date Milena Dos Santos MD [address] [place] [address] PCP - General 06/03/16 04/03/19 Tommy King DO [address] [place] [address] PCP - General INTERNAL MEDICINE 04/04/19 03/27/22 None, Provider, PCP - General UNKNOWN PHYSICIAN SPECIALTY 03/28/22 West Pino MD [address] [facility] [address] [place] [address] UROLOGY 05/03/19 Yvan Jaime MD [address] [place] [address] Surgeon NEUROLOGICAL SURGERY 05/03/19 documented as of this encounter
--- OUTSIDE RECORDS SUMMARY | 2025-03-11 18:09 | XMS_ITS | Clinical Summary ---
Author Organization [facility] [employer] Address [address] [place] [address] Care Team Providers Care Dough Mixer Name Role Phone Tommy King DO Primary Care Provider [phone] Source Comments [facility],non-owned Affiliates and Associated Physician Practices is amultiple site organization consisting of ambulatory clinics and hospital sitesin [place], [place], [place] and [place]. This disclosure is being madepursuant to the Care Everywhere program and may not contain all information available regarding this patient. Last updated 18.[facility] Allergies Active Allergy Reactions Criticality Noted Date [...] fluticasone propionate (FLONASE) 50 MCG/ACT nasal spray [place] 2 sprays into the nose once daily [...] 36.8 C (98.3 F) 06/12/2021 10:53 AM ANIMAL DOCTOR Respiratory Rate 18 05/23/2021 12:51 PM ANIMAL DOCTOR Oxygen Saturation 91% 08/05/2021 9:59 AM CDT [...] this topic Medical Devices Implanted Type Area Education Officer Device Identifier Shelf Expiration Date Model / Serial / Lot Lead Nrstm 60cm Penta 3mm Pdl 16 [facility] - [id number] Implanted:Qty: 1 on 05/23/2021 by Esau Rose MD at [facility] Back Advanced Neuromodulation Systems 10/19/2022 [id number] / [id number] / Slnt Dura Duraseal Pg Trilysine Amine 5 Implanted:Qty: 1 on 05/23/2021 by Esau Rose MD at [facility] Back [employer] Erendira [id number] / / [id number] Gntr Nrstm 1.95inx2.19in Proclaim Elt - [id number] Implanted:Qty: 1 on 05/23/2021 by Esau Rose MD at [facility] Left: Back [employer] 03/26/2023 3660 / [id number] / Insurance MEDIC[place] [address] UHC MANAGED MEDICARE ADV MEDICAID [place] SELF PAY NO INSURANCE Member Subscriber Plan / Payer (Ef fective for All Dates) Name:Melyssa Mccall Member ID:Not on file Relation to Subscriber:Not on file Name:MELYSSA MCCALL Subscriber ID:Not on file (Home) Address: [address] [place] [address] [place] [address] Payer ID:Not on file Group ID:Not on file Type:Self Pay Address: [facility] MANAGED MEDICARE [place] [address] MEDICARE MEDICAID - OUT OF STATE Care Teams Dough Mixer Relationship Specialty Start Date End Date Tommy King DO PCP - General Internal Medicine 04/23/21
--- OUTSIDE RECORDS SUMMARY | 2025-03-11 18:09 | XMS_ITS ---
Author Organization [facility] Address [address] [place] [address] Care Team Providers Care Gold Blower Name Role Phone Unavailable Primary Care Provider [...]
--- OUTSIDE RECORDS SUMMARY | 2025-03-11 18:09 | XMS_ITS | Clinical Summary ---
Author Organization [facility] Address [address] [place] [address] Care Team Providers Care Telephone Operator Name Role Phone West Pino MD Unavailable [phone] Yvan Jaime MD Unavailable [phone] None, Provider MD Primary Care Provider Unavaila [...] CDT Gender Identity Female 05/09/2021 3:57 PM CERTIFED REFRIGERATION OPERATOR Sexual Orientation Straight 05/09/2021 3: 57 PM CERTIFED REFRIGERATION OPERATOR Last Filed Vital Signs Vital Sign Reading Time Taken Comments Blood Pressure 106/60 03/28/2022 9:13 AM CERTIFED REFRIGERATION OPERATOR Pulse 80 03/28/2022 9:13 AM CERTIFED REFRIGERATION OPERATOR Temperature 36.1 C (97 F) 03/28/2022 9:13 AM CERTIFED REFRIGERATION OPERATOR Respiratory Rate 20 03/28/2022 9:13 AM CERTIFED REFRIGERATION OPERATOR Oxygen Saturation 94% 03/28/2022 9:13 AM CERTIFED REFRIGERATION OPERATOR Inhaled Oxygen Concentration - - Weight 52.6 kg (116 lb) 03/28/2022 9:13 AM CERTIFED REFRIGERATION OPERATOR Height 167.6 cm (5' 6) 03/28/2022 9:13 AM CERTIFED REFRIGERATION OPERATOR Body Mass Index 18.72 03/28/2022 9:13 AM CERTIFED REFRIGERATION OPERATOR Plan of Treatment Health Maintenance Due [...] this topic Medical Devices Implanted Type Area Rail Maintenance Worker Device Identifier Shelf Expiration Date Model / Serial / Lot Stimulator Lead Implant-2021 Implanted: by Esau Rose MD (Quantity not on file) Lead Implant Spine Thoracic [employer] DIV [employer] LANI 3228 PENTA / / Description:T8-T9 Stent [place] 6fr X 24cm - [id number] Implanted:Qty : 1 on 05/17/2019 by West Pino MD at [facility] Stent Left: Ureter [employer] C [employer] 05/12/2023 [id number] / / [id number] Stent [place] 6fr X 24cm - [id number] Implanted:Qty : 1 on 05/17/2019 by West Pino MD at [facility] Stent Right: Ureter [employer] 05/12/2023 [id number] / / [id number] Stent Ureteral Pigtail 6fr 24cm Crv Taper Tip - [id number] Implanted:Qty : 1 on 02/26/2021 by West Pino MD at [facility] Stent Left: Ureter [employer] [id number] 11/28/2023 [id number] / / [id number] Stimulator Implant-2021 Implanted:Qty : 1 on 05/23/2021 by Esau Rose MD Stimulator Implant Back [facility] DIV [facility] 3660 PROCLAIM / [id number] / Description:MR CONDITIONAL A T 1.5 T ONLY, NEED REMOTE TO CHECK IMPEDANCE AND TURN OFF STIMULATION, FOLLOW SCAN CONDITIONS IN MOST RECENT MRI TECHNICAL MANUAL Procedures Procedure Name Priority Date/Time Associated Diagnosis Comments MG SCREENING PAIGE DIGI Routine 04/16/2015 3:06 PM CERTIFED REFRIGERATION OPERATOR from Last 3 Months or Most Recently Relevant to Health Maintenance Results * MG SCREENING PAIGE DIGI (04/16/2015 3:06 PM CERTIFED REFRIGERATION OPERATOR) Anatomical Region Laterality Modality Breast Bilateral Mammography 04/16/2015 3:06 PM CERTIFED REFRIGERATION OPERATOR 04/16/2015 3:06 PM CERTIFED REFRIGERATION OPERATOR Narrative 04/16/2015 3:24 PM CERTIFED REFRIGERATION OPERATOR MELYSSA MCCALL ADMIT/SERVICE DATE: 04/16/15 ACCT: [id number] DISCHARGE DATE: : 1955 SEX: F ORD SITE: [facility] PT TYPE: REG CLI ORDERING MD: MANE RAMIREZ MD STUDY DATE REPORT # ORDER # EXT ORDER ID 04/16/15 [id number] PROC CODE: SCMAMDGB PROCEDURE DESCRIPTION: MG SCREEN [...] - 02/26/2018 MELYSSA MCCALL ADMIT/SERVICE DATE:04/16/15 ACCT: [id number] DISCHARGE DATE: : 1955 SEX: F ORD SITE: [facility] PT TYPE: REG CLI ORDERING MD:MANE RAMIREZ MD STUDY DATE REPORT # ORDER # EXT ORDER ID 04/16/15 [id number] PROC CODE: SCMAMDGB PROCEDURE DESCRIPTION: MG SCREEN [...] 1:01 PM 02/26/2021 3:43 PM Care Teams Telephone Operator Relationship Specialty Start Date End Date None, Provider, PCP - General UNKNOWN PHYSICIAN SPECIALTY 03/28/22 West Pino MD UROLOGY 05/03/19 Yvan Jaime MD [address] [place] [address] Surgeon NEUROLOGICAL SURGERY 05/03/19
--- OUTSIDE RECORDS SUMMARY | 2025-03-11 18:09 | XMS_ITS | Data Portability ---
Author Organization Claudia GODDARD Address [address] [place] [address] Assessment No assessment recorded. Plan of Treatment Reminders Order Date Submit Date Provider Last Modified By Organization Details Last Modified Time Details Appointments None recorded. Lab rapid strep group A, throat 2016 017 [facility] In-Office Order, Internal Use Only DO Not Attach Compendium DO Not Attach Compendium, Do Not Delete/merge, [id number] 7 17:07:24 HbA1c (hemoglobi n A1c), blood 2015 016 DBA_PATCH_ [id number] [facility], [address] [facility] [address], [address], [place], [address], 6 04:31:39 glucose tolerance test, post-75G, 3 specimens 2015 016 DBA_PATCH_ [id number] [facility], [address] [facility] [address], [address], [place], [address], 6 04:31:39 unlisted lab - vitamin D, 25-hydroxy , total - [facility] 2015 016 JENNIFER [facility], [address] [facility] [address], [address], [place], [address], 6 13:11:27 CBC w/ manual diff 2015 016 [email or web address] [facility], [address], [address], [place], [address], 6 12:15:19 CMP, serum or plasma 2015 016 [email or web address] [facility], [address] [facility] [address], [address], [place], [address], 6 12:15:19 lipid panel, serum 2015 016 [email or web address] [facility], [address] [facility], [address], [place], [address], 6 12:15:19 unlisted lab - compliance drug analysis, ur 2015 016 JENNIFER [facility], [address] [facility], [address], [place], [address], 6 15:09:40 Referral laryngolog y referral - Please call patient to schedule 2015 016 [email or web address] Not available 7 07:56:45 audiologis t referral - Please call patient to schedule 2015 [email or web address], [place], [address], 7 13:04:47 plastic surgeon referral - Rt thigh lump/ PATIENT TO SCHEDULE 2015 016 [email or web address] Not available 7 13:17:06 gastroente rologist referral - P:leae call patient to schedujle 2015 016 [email or web address] Jack Griffin MD, [address] [place], [address], 7 10:10:31 Procedures colonoscop y screening (PROC) 2015 016 DBA_PATCH_ [id number] Not available 6 04:32:07 Surgeries None recorded. Imaging MAMMO, screening, digital, bilateral 2015 016 DBA_PATCH_ [id number] [facility] ([facility]), [address] [place], [address], 6 04:31:59 MAMMO, screening, bilateral 2015 016 [facility] ([facility]), [address] [place], [address], 7 10:29:25 bone density, dual photon absorptiom etry 2015 016 [facility] ([facility]), [address] [place], [address], 6 15:34:00 Medication Orders sertraline [address] [facility][id number], [address] [place], [place], [id number], 7 17:07:30 nystatin 100,000 unit/mL oral suspension [address] [facility] #[id number], [address] [facility], [place], [place], [id number], 7 17:07:31 calcium 600 mg (as carbonate) -vitamin D3 10 mcg (400 unit) capsule 2016 017 [facility] #[id number], [address] [facility], [place], [place], [id number], 7 16:54:36 Ventolin HFA 90 mcg/actuat ion aerosol inhaler [address] [facility] #84768, [address] [facility], [place], [place], [id number], 7 16:22:52 Symbicort 160 mcg-4.5 mcg/actuat ion HFA aerosol inhaler 2016 017 [facility] #27406, [address], [place], [place], [id number], 7 16:22:51 albuterol sulfate 2.5 mg/3 mL (0.083 %) solution for nebulizati on 2016 017 [facility] #68170, [address] , [place], [place], [id number], 7 16:22:52 calcium 600 mg (as carbonate) -vitamin D3 10 mcg (400 unit) capsule 2015 016 DBA_PATCH_ [id number] [facility] #74102, [address] , [place], [place], [id number], 6 04:31:45 Patient TargetsNo targets recorded. Patient Instructions Encounter Date Encounter Id Patient Instructions Last Modified By Organization Details Last Modified Time 01/21/2016 [id number] deciding about using medicines to quit smoking [facility] Not available 01/22/2016 15:28:08 Quitting Tobacco : Care Instructions [facility] Not available 01/22/2016 15:28:09 chronic obstructive pulmonary disease (COPD): care instructions [facility] Not available 01/22/2016 15:28:08 learning about copd and how to prevent lung infections [facility] Not available 01/22/2016 15:28:08 03/21/2016 [id number] mammogram: about this test [facility] Not available 03/21/2016 17:27:52 deciding about using medicines to quit smoking [facility] Not available 03/21/2016 17:27:52 Quitting Tobacco : Care Instructions [facility] Not available 03/21/2016 17:27:52 chronic obstructive pulmonary disease (COPD): care instructions [facility] Not available 03/21/2016 17:27:52 learning about copd and how to prevent lung infections [facility] Not available 03/21/2016 17:27:52 learning about high blood sugar [facility] Not available 03/21/2016 17:31:23 05/28/2016 [id number] osteoporosis: care instructions [facility] Not available 05/28/2016 16:22:51 deciding about using medicines to quit smoking [email or web address] Not available 05/28/2016 16:22:51 Quitting Tobacco : Care Instructions [email or web address] Not available 05/28/2016 16:22:51 chronic obstructive pulmonary disease (COPD): care instructions jhsieh Not available 05/28/2016 16:22:51 learning about copd and how to prevent lung infections [email or web address] Not available 05/28/2016 16:22:51 07/01/2016 [id number] deciding about using medicines to quit smoking [facility] Not available 07/02/2016 09:50:36 Quitting Tobacco : Care Instructions [facility] Not available 07/02/2016 09:50:36 chronic obstructive pulmonary disease (COPD): care instructions [facility] Not available 07/02/2016 09:50:36 learning about copd and how to prevent lung infections [facility] Not available 07/02/2016 09:50:36 11/24/2016 [id number] deciding about using medicines to quit smoking [email or web address] Not available 11/25/2016 11:07:05 Quitting Tobacco : Care Instructions [email or web address] Not available 11/25/2016 11:07:05 chronic obstructive pulmonary disease (COPD): care instructions Not available 11/25/2016 11:07:05 learning about copd and how to prevent lung infections [email or web address] Not available 11/25/2016 11:07:05 Reason for Referral [...] Physician: [facility], Encounter Date: 03/21/2016 Backhaul Driver Referral for Hea ring disorder Please [...] DO Not Attach Compendium, Do Not Delete/merge, [id number] 11/24/2016 16:23:51 01/21/20 16 01/26/2016 drug scree [...] RIPTI ON MEDIC [place]ION . [place]E [address] NG/MG CREAT POTEN TIAL SOURC ES OF [...] ===== === Not Available [facility] [address], [place], [address], 01/26/2016 15:09:40 01/21/20 16 01/26/2016 drug scree n, urine pdf . Not Available [facility] [address], [place], [address], 01/26/2016 15:09:40 02/04/20 16 02/05/2016 CBC w/ manua l diff WBC 5.7 x10e3 /uL 3.4-10 .8 Not Available [facility] ([facility]) [address] [facility], [place], [address], 02/07/2016 13:11:25 02/04/20 16 02/05/2016 CBC w/ manua l diff RBC 4.19 x10e6 /uL 3.77-5 .28 Not Available [facility] ([facility]) [address] [place], [address], 02/07/2016 13:11:25 02/04/20 16 02/05/2016 CBC w/ manua l diff hemoglobin 12.7 g/dL 11.1-1 5.9 Not Available [facility] ([facility]) [address] [place], [address], 02/07/2016 13:11:25 02/04/20 16 02/05/2016 CBC w/ manua l diff hematocrit 38.8 % 34.0-4 6.6 Not Available [facility] ([facility]) [address] [place], [address], 02/07/2016 13:11:25 02/04/20 16 02/05/2016 CBC w/ manua l diff MCV 93 fL 79-97 Not Available [facility] ([facility]) [address] [place], [address], 02/07/2016 13:11:25 02/04/20 16 02/05/2016 CBC w/ manua l diff MCH 30.3 pg 26.6-3 3.0 Not Available [facility] ([facility]) [address] [facility], [place], [address], 02/07/2016 13:11:25 02/04/20 16 02/05/2016 CBC w/ manua l diff MCHC 32.7 g/dL 31.5-3 5.7 Not Available [facility] ([facility]) [address] [facility], [place], [address], 02/07/2016 13:11:25 02/04/20 16 02/05/2016 CBC w/ manua l diff RDW 14.2 % 12.3-1 5.4 Not Available [facility] ([facility]) [address] [facility], [place], [address], 02/07/2016 13:11:25 02/04/20 16 02/05/2016 CBC w/ manua l diff platelets 148 x10e3 /uL 150-37 9 below low normal Not Available [facility] ([facility]) [address] [place], [address], 02/07/2016 13:11:25 02/04/20 16 02/05/2016 CBC w/ manua l diff neutrophils 75 % Not Available [facility] ([facility]) [address] [facility], [place], [address], 02/07/2016 13:11:25 02/04/20 16 02/05/2016 CBC w/ manua l diff lymphs 16 % Not Available [facility] ([facility]) [address] [place], [address], 02/07/2016 13:11:25 02/04/20 16 02/05/2016 CBC w/ manua l diff monocytes 8 % Not Available [facility] ([facility]) [address] [place], [address], 02/07/2016 13:11:25 02/04/20 16 02/05/2016 CBC w/ manua l diff eos 1 % Not Available [facility] ([facility]) [address] [place], [address], 02/07/2016 13:11:25 02/04/20 16 02/05/2016 CBC w/ manua l diff basos 0 % Not Available [facility] ([facility]) [address] [place], [address], 02/07/2016 13:11:25 02/04/20 16 02/05/2016 CBC w/ manua l diff immature cells [employer]AY[employer] Not Available [facility] ([facility]) [address] [place], [address], 02/07/2016 13:11:25 02/04/20 16 02/05/2016 CBC w/ manua l diff neutrophils absolute 4.3 x10e3 /uL 1.4-7. 0 Not Available [facility] ([facility]) [address] [place], [address], 02/07/2016 13:11:25 02/04/20 16 02/05/2016 CBC w/ manua l diff lymphs (absolute) 0.9 x10e3 /uL 0.7-3. 1 Not Available [facility] ([facility]) [address] [place], [address], 02/07/2016 13:11:25 02/04/20 16 02/05/2016 CBC w/ manua l diff monocytes(ab solute) 0.5 x10e3 /uL 0.1-0. 9 Not Available [facility] ([facility]) [address] [place] [address], [address], 02/07/2016 13:11:25 02/04/20 16 02/05/2016 CBC w/ manua l diff eos (absolute value) 0.1 x10e3 /uL 0.0-0. 4 Not Available [facility] ([facility]) [address] [facility], [place], [address], 02/07/2016 13:11:25 02/04/20 16 02/05/2016 CBC w/ manua l diff baso(absolut e) 0.0 x10e3 /uL 0.0-0. 2 Not Available [facility] ([facility]) [address] [facility], [place], [address], 02/07/2016 13:11:25 02/04/20 16 02/05/2016 CBC w/ manua l diff NRBC [employer] Not Available [facility] ([facility]) [address] [facility], [place], [address], 02/07/2016 13:11:25 02/04/20 16 02/05/2016 CBC w/ manua l diff differential comment [employer] Not Available [facility] ([facility]) [address] [facility], [place], [address], 02/07/2016 13:11:25 02/04/20 16 02/05/2016 CBC w/ manua l diff RBC comment RBC'S APPEAR NORMAL . normal Not Available [facility] ([facility]) [address] [facility], [place], [address], 02/07/2016 13:11:25 02/04/20 16 02/05/2016 CBC w/ manua l diff platelet comment ADEQUA TE adequa te Not Available [facility] ([facility]) [address] [facility], [place], [address], 02/07/2016 13:11:25 02/04/20 16 02/05/2016 CMP, serum or plasm a glucose, serum 115 mg/dL 65-99 above high normal Not Available [facility] ([facility]) [address] [facility] [place] [place], [address], 02/07/2016 13:11:26 02/04/20 16 02/05/2016 CMP, serum or plasm a hemoglobin A1C 5.9 % 4.8-5. 6 above high normal PRE-D IABET ES: 5.7 - 6.4 DIABE ROSE: >6.4 GLYCE ARON CONTR OL FOR ADULT S WITH DIABE ROSE: <7.0 Not Available [facility] ([facility]) [address] [place], [address], 02/07/2016 13:11:26 02/04/20 16 02/05/2016 CMP, serum or plasm a BUN 8 mg/dL 8-27 Not Available [facility] ([facility]) [address] [place], [address], 02/07/2016 13:11:26 02/04/20 16 02/05/2016 CMP, serum or plasm a creatinine, serum 0.85 mg/dL 0.57-1 .00 Not Available [facility] ([facility]) [address] [place], [address], 02/07/2016 13:11:26 02/04/20 16 02/05/2016 CMP, serum or plasm a eGFR if nonafricn AM 74 mL/mi n/1.7 3 >59 Not Available [facility] ([facility]) [address] [place], [address], 02/07/2016 13:11:26 02/04/20 16 02/05/2016 CMP, serum or plasm a eGFR if africn AM 85 mL/mi n/1.7 3 >59 Not Available [facility] ([facility]) [address] [place], [address], 02/07/2016 13:11:26 02/04/20 16 02/05/2016 CMP, serum or plasm a BUN/creatini ne ratio 9 11-26 below low normal Not Available [facility] ([facility]) [address] [place] [address], [address], 02/07/2016 13:11:26 02/04/20 16 02/05/2016 CMP, serum or plasm a sodium, serum 142 mmol/ L 134-14 4 EFF ECTIV E OCTOB ER 2015 THE REFER ENCE INTER NIRMALA FOR SARAH Rodriguez, SERUM WILL BE LYON ING TO: 136 - 144 Not Available [facility] ([facility]) [address] [place], [address], 02/07/2016 13:11:26 02/04/20 16 02/05/2016 CMP, serum [...] YEAR 3.5 - 5.2 Not Available [facility] ([facility]) [address] [place], [address], 02/07/2016 13:11:26 02/04/20 16 02/05/2016 CMP, serum or plasm a chloride, serum 103 mmol/ L 97-108 EFF ECTIV E OCTOB ER 2015 THE REFER ENCE INTER NIRMALA FOR CHLOR SAHIL, SERUM WILL BE LYON ING TO: 97 - 106 Not Available [facility] ([facility]) [address] [place], [address], 02/07/2016 13:11:26 02/04/20 16 02/05/2016 CMP, serum or plasm a carbon dioxide, total 24 mmol/ L 18-29 Not Available [facility] ([facility]) [address] [place], [address], 02/07/2016 13:11:26 02/04/20 16 02/05/2016 CMP, serum or plasm a calcium, serum 8.3 mg/dL 8.7-10 .3 below low normal Not Available [facility] ([facility]) [address] [place], [address], 02/07/2016 13:11:26 02/04/20 16 02/05/2016 CMP, serum or plasm a protein, total, serum 6.2 g/dL 6.0-8. 5 Not Available [facility] ([facility]) [address] [facility] [place], [address], 02/07/2016 13:11:26 02/04/20 16 02/05/2016 CMP, serum or plasm a albumin, serum 3.8 g/dL 3.6-4. 8 Not Available [facility] ([facility]) [address] [facility], [place], [address], 02/07/2016 13:11:26 02/04/20 16 02/05/2016 CMP, serum or plasm a globulin, total 2.4 g/dL 1.5-4. 5 Not Available [facility] ([facility]) [address] [place], [address], 02/07/2016 13:11:26 02/04/20 16 02/05/2016 CMP, serum or plasm a A/G ratio 1.6 1.1-2. 5 Not Available [facility] ([facility]) [address] [facility], [place], [address], 02/07/2016 13:11:26 02/04/20 16 02/05/2016 CMP, serum or plasm a bilirubin, total <0.2 mg/dL 0.0-1. 2 Not Available [facility] ([facility]) [address] [place], [address], 02/07/2016 13:11:26 02/04/20 16 02/05/2016 CMP, serum or plasm a alkaline phosphatase, S 97 IU/L 39-117 Not Available [facility] ([facility]) [address] [place] [address], [place], [address], 02/07/2016 13:11:26 02/04/20 16 02/05/2016 CMP, serum or plasm a AST (SGOT) 15 IU/L 0-40 Not Available [facility] ([facility]) [address] [facility] [place], [address], 02/07/2016 13:11:26 02/04/20 16 02/05/2016 CMP, serum or plasm a ALT (SGPT) 15 IU/L 0-32 Not Available [facility] ([facility]) [address] [facility] [place] [place], [address], 02/07/2016 13:11:26 02/04/20 16 02/05/2016 lipid panel , serum cholesterol, total 201 mg/dL 100-19 9 above high normal Not Available [facility] ([facility]) [address] [facility] [place] [place], [address], 02/07/2016 13:11:26 02/04/20 16 02/05/2016 lipid panel , serum triglyceride s 91 mg/dL 0-149 Not Available [facility] ([facility]) [address] [place], [address], 02/07/2016 13:11:26 02/04/20 16 02/05/2016 lipid panel , serum HDL cholesterol 72 mg/dL >39 ACCOR DING TO ATP-I II GUIDE LINES , HDL-C >59 MG/DL IS CONSI DERED A NEGAT CAMPOS RISK FACTO R FOR CHD. Not Available [facility] ([facility]) [address] [place], [address], 02/07/2016 13:11:26 02/04/20 16 02/05/2016 lipid panel , serum VLDL cholesterol taylor 18 mg/dL 5-40 Not Available [facility] ([facility]) [address] [place], [address], 02/07/2016 13:11:26 02/04/20 16 02/05/2016 lipid panel , serum LDL cholesterol calc 111 mg/dL 0-99 above high normal Not Available [facility] ([facility]) [address] [place], [address], 02/07/2016 13:11:26 02/04/20 16 02/05/2016 lipid panel , serum comment: [employer] LAY[employer] Not Available [facility] ([facility]) [address] [facility], [place], [address], 02/07/2016 13:11:26 02/04/20 16 02/05/2016 lipid panel , serum LDL/HDL ratio 1.5 ratio _unit s 0.0-3. 2 LDL/H DL RATIO MEN WOMEN 1/2 AVG.R ISK 1.0 1.5 AVG.R ISK 3.6 3.2 2X AVG.R ISK 6.2 5.0 3X AVG.R ISK 8.0 6.1 Not Available [facility] ([facility]) [address] [facility], [place], [address], 02/07/2016 13:11:26 02/04/20 16 02/07/2016 vitam in D, 25-hy droxy , total , serum vitamin D, 25-hydroxy, serum 37 NG/mL REFER ENCE RANGE : ALL AGES: TARGE T LEVEL S 30 - 100 Not Available [facility] [address] [place] [address], [address], 02/07/2016 13:11:27 04/02/20 16 04/03/2016 gluco se slava ance test, post- 75G, 3 speci mens glucose, fasting 92 mg/dL 65-99 Not Available [facility] ([facility]) [address] [place], [address], 04/03/2016 06:12:40 04/02/20 16 04/03/2016 gluco se slava ance test, post- 75G, 3 speci mens glucose, 1/2 hour TNP TEST NOT PERFO RMED Not Available [facility] ([facility]) [address] [place], [address], 04/03/2016 06:12:40 04/02/20 16 04/03/2016 gluco se slava ance test, post- 75G, 3 speci mens glucose, 1 hour 189 mg/dL 65-199 Not Available [facility] ([facility]) [address] [place], [address], 04/03/2016 06:12:40 04/02/20 16 04/03/2016 gluco se slava ance test, post- 75G, 3 speci mens glucose, 1 1/2 hour TNP TEST NOT PERFO RMED Not Available [facility] ([facility]) [address] [place], [address], 04/03/2016 06:12:40 04/02/20 16 04/03/2016 gluco se slava ance test, post- 75G, 3 speci mens glucose, 2 hour 97 mg/dL 65-139 Not Available [facility] ([facility]) [address] [place], [address], 04/03/2016 06:12:40 04/02/20 16 04/03/2016 gluco se slava ance test, post- 75G, 3 speci mens glucose, 3 hour TNP TEST NOT PERFO RMED Not Available [facility] ([facility]) [address] [place] [address], [address], 04/03/2016 06:12:40 04/02/20 16 04/03/2016 gluco se slava ance test, post- 75G, 3 speci mens glucose, 4 hour TNP TEST NOT PERFO RMED Not Available [facility] ([facility]) [address] [place], [address], 04/03/2016 06:12:40 04/02/20 16 04/03/2016 gluco se slava ance test, post- 75G, 3 speci mens glucose, 5 hour TNP TEST NOT PERFO RMED Not Available [facility] ([facility]) [address] [place], [address], 04/03/2016 06:12:40 04/02/20 16 04/03/2016 gluco se slava ance test, post- 75G, 3 speci mens glucose, 6 hour TNP TEST NOT PERFO RMED Not Available [facility] ([facility]) [address] [facility], [place], [address], 04/03/2016 06:12:40 04/02/20 16 04/03/2016 HbA1c (hemo globi n A1c), blood hemoglobin A1C 6.0 % 4.8-5. 6 above high normal PRE-D IABET ES: 5.7 - 6.4 DIABE ROSE: >6.4 GLYCE ARON CONTR OL FOR ADULT S WITH DIABE ROSE: <7.0 Not Available [facility] ([facility]) [address] [facility], [place], [address], 04/03/2016 06:12:41 01/29/20 16 01/28/2016 bone densi ty, dual photo n absor ptiom etry No observ ation record ed. [email or web address] [facility] [address] [place], [address], 08/20/2016 09:43:33 02/21/20 16 02/21/2016 US, kidne y No observ ation record ed. [email or web address] Not Available 2015 15:40:26 05/21/19 17 05/21/2016 MRI, brain + brain stem, w/wo contr ast No observ ation record ed. strice [facility] [address] [place], [address], 07/03/2016 11:40:04 05/21/19 17 05/21/2016 MRI, cervi taylor spine , w/o contr ast No observ ation record ed. [email or web address] [facility] (Imaging) [address] [place], [address], 05/29/2016 07:28:18 06/03/19 17 06/03/2016 MAMMO , scree uziel, bilat eral No observ ation record ed. [email or web address] Not Available 07/02 15:29:02 06/27/19 17 06/27/2016 XR, chest , 2 view No observ ation record ed. [facility] (Imaging) [address] [place], [address], 07/16/2016 13:29:36 07/04/19 17 6 minut e walk test* No observ ation record ed. [facility] ([facility]) [address] [place], [address], 07/04/2016 12:37:03 Result Notes None recorded. Problems Name Problem SNOMED Code Status Onset Date Resolution Date Notes Provider Name and Address Organization Details Recorded Time Chronic obstructive pulmonary disease 10011127 Active Milena Dos Santos MD Attn: Wilmer bullock,[address], [place], [address], [facility] 15:15:05 Tobacco dependence syndrome 99831091 Active Milena Dos Santos MD Attn: Wilmer bullock,[address], [place], [address], [facility] 15:15:05 Chronic low back pain [id number] Diandra Dos Santos MD Attn: Wilmer bullock,[address], [place], [address], [facility] 15:15:05 Esophageal dysphagia [id number] Diandra Dos Santos MD Attn: Wilmer bullock,[address], [place], [address], [facility] 15:15:05 Dystonia [id number] Diandra Dos Santos MD Attn: Wilmer bullock,[address], [place], [address], [facility] 15:15:05 Osteoporosis [id number] Diandra Gonzalez RN null, [facility] 6 15:14:16 Problem Notes None recorded. Procedures Surgical History Date Name Laterality Status Provider Name and Address Organization Details Recorded Time 05/04/19 15 Mammogram screening completed Judd Valentine MA [facility] 01/21/2016 14:25:00 05/04/19 14 Diagnostic colonoscopy completed Judd Valentine ROSS [facility] 01/21/2016 14:25:00 05/04/19 09 Screening pap smear by phys completed Judd Valentine MA [facility] 01/21/2016 14:25:00 Dilation and Curettage completed Judd Valentine MA [facility] 01/21/2016 14:25:00 Tonsillectomy completed Judd Valentine MA [facility] 01/21/2016 14:25:00 Hysterectomy completed Judd Valentine MA [facility] 01/21/2016 14:25:00 Appendectomy completed Judd Valentine [facility] 01/21/2016 14:25:00 Imaging Results None recorded. Procedure Notes None recorded. Medical Equipment None Reported. Allergies Allergen ID Allergen Name Allergen Category Reaction Reaction Severity Criticality Documentation Date Start Date Code Code System Note Provider Name and Address Organization Details Recorded Time 63132 Product containin g penicilli n (product) medicatio n Not available Not available Not available 01/21/2016 60726 8001 [facility]ED [facility] 14:24:59 36987 Demerol medicatio n itching Not available Not available 01/21/2016 48282 1 RxNorm [facility] 14:24:59 Medications Name Sig [...] propionate 50 mcg/actuatio n nasal spray,suspen [place] 1 spray every day by intranasal route. [...] Details Last Updated DateTime 7 169.545 cm 06071.4 8 g 19.8 kg/m2 97.9 [degF] 96 % 96 % 85 /min 126/66 mm[Hg] Judd Valentine MA [facility] [facility] 7 16:04:46 Date Recorded Body height Body weight Body mass index (BMI) Body temperature Oxygen saturation Oxygen saturation in Arterial blood by Pulse oximetry Heart rate Systolic And Diastolic Provider Name and Address Organization Details Last Updated DateTime 7 169.545 cm 47827.7 g 19.3 kg/m2 98.1 [degF] 92 % 92 % 80 /min 124/68 mm[Hg] Judd Valentine MA [facility] 7 17:15:45 Date Recorded Body height Body mass index (BMI) Body weight Body temperature Oxygen saturation Oxygen saturation in Arterial blood by Pulse oximetry Heart rate Systolic And Diastolic Provider Name and Address Organization Details Last Updated DateTime 7 169.545 cm 20.5 kg/m2 20123.2 9 g 97.7 [degF] 95 % 95 % 90 /min 130/70 mm[Hg] Judd Valentine MA [facility] 7 15:30:39 Date Recorded Body height Heart rate Body weight Oxygen saturation Oxygen saturation in Arterial blood by Pulse oximetry Body mass index (BMI) Body temperature Systolic And Diastolic Provider Name and Address Organization Details Last Updated DateTime 6 169.545 cm 71 /min 52250.3 87819 g 96 % 96 % 18.9 kg/m2 98.3 [degF] 144/70 mm[Hg] Judd Valentine MA [facility] 6 14:25:00 Date Recorded Body height Body weight Body mass index (BMI) Body temperature Oxygen saturation Oxygen saturation in Arterial blood by Pulse oximetry Heart rate Systolic And Diastolic Provider Name and Address Organization Details Last Updated DateTime 6 169.545 cm 57359.7 1 g 19.3 kg/m2 98.3 [degF] 95 % 95 % 88 /min 104/60 mm[Hg] Judd Valentine MA [facility] 6 16:32:19 Social History None recorded. Functional [...] alcohol [email or web address] Not available 01/20 14:25:00 Sister Malignant neoplasm of breast suspected [email or web address] Not available 01/20 14:25:00 Notes:Colon Cancer [...] 0.5 mL 07/09/2020 completed Nato Maria null, [facility] 11/07/2020 16:13:26 pneumococcal, unspecified formulation 05/04/2005 completed Judd Valentine MA null, [place] [facility] 01/21/2016 14:25:00 Past Encounters Encounter ID Performer Location Encounter Start Date Encounter Closed Date Diagnosis/Indication Diagnosis SNOMED-CT Code Diagnosis ICD10 Code Diagnosis IMO Codes Diagnosis Note [id number] MD Asif Colindres (Adult Med) [address] [place] [address] 01/21/2016 13:44:23 01/21/2016 18:02:47 Chronic obstructive pulmonary disease 10679224 J44.9 Tobacco de pendence syndrome 22012059 F17.290 Chronic low back pain 27 1604429 M54.5 Esophageal dysphagia 408 54697 R13.19 Adult [facility] th examination 953445818 Z00.00 Screening for osteoporosis 439674373 Z13.820 Dystonia 94767644 G24.9 [id number] MD Asif Colindres (Adult Med) [address] [place] [phone] 03/21/2016 15:52:50 03/21/2016 17:46:52 Chronic obstructive pulmonary disease 41581925 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 Chronic low back pain 27 5731121 M54.5 Esophageal dysphagia 408 07636 R13.19 She had upper EGD scopic ex. by a GI specialist and was dilated and recently had unremarkab le colonoscop y ex by GI specialist as well. Osteoporosis 11744660 M8 1.0 Osteopenia 413805029 M85 .9 [id number] [facility] [address] [place] [phone] 07/01/2016 15:40:48 07/01/2016 18:04:54 Chronic obstructive pulmonary disease 80217020 J44.9 Will have nurse arrange the 6 minutes walking test to see if she is qualified for the home oxygen, Jennifer won't give such choice on the computer. Tobacco de pendence syndrome 23001769 F17.290 She is on the nicotine patch for quitting cigarettes . [id number] MD Asif Colindres (Adult Med) [address] [place] [phone] 11/24/2016 14:30:40 11/24/2016 17:09:34 Pharyngitis 582569909 J02.9 Thrash. Chronic ob structive pulmonary disease 40008918 J44.9 Will have nurse arrange the 6 minutes walking test to see if she is qualified for the home oxygen, Jennifer won't give such choice on the computer. Tobacco de pendence syndrome 60373746 F17.290 She is on the nicotine patch for quitting cigarettes . Pain of mu ltiple joints 88907427 M25.50 Had been on sertraline . Chronic low back pain 27 5144870 M54.5 Same as sertraline . Lumbar radiculopathy 128 147479 M54.16 Health Concerns Section Related Observation LastModified by Organization Detai ls LastModified Time None Recorded Concern Status LastModified by Organization Details LastModified Time None Recorded Advance Directives Directive None Recorded Payers Insurance Date Sequence Insurance Name Policy Number Policy Granados Covered Member ID Granados Member ID Guarantor Name 07/02/2016 2 [place] WHEN MEDICARE OR MEDICARE REPLACEMENT PRIMARY) Melyssa Cal [id number] Melyssa [place] 07/02/2016 2 [place] [facility] [place] [id number] Melyssa [place] 11/21/2016 [place] [facility] Melyssa [place] [id number] Melyssa [place] 11/25/2016 1 [place] Melyssa A [place] [id number] Melyssa Cal Notes Date Note Type [...] Milena Dos Santos MD Attn: Accounting[address] [place], [address], [facility] 01/21/2016 15:15:32 03/21/2016 text/html ROS as noted in the HPI She has gone to GI specialist for dilatation of esophageal stricture, her food regurgitaion has resolved and no more aspiration /or pneumonia and has gained weight after the improving appetite and oral intake but still smokes cigarettes. Milena Dos Santos MD Attn: [address] [facility], [place], [address], [facility] [place] 03/21/2016 17:39:07 11/24/2016 text/html ROS as noted in the HPI She is happy about that her ears can hear well again. and she had benign lump removed on her right thigh, had seen GI doctor for her esophageal dysphagia, still smokes cigarettes , using inhalers, chronic throat sore . Allergic to penicillins and demerol. Milena Dos Santos MD Attn: [address] [facility], [place], [address], [facility] 11/24/2016 17:07:30 OBGyn Episode No OBEpisode recorded.
[2025-03-11 19:18] VITALS: BP 144/63; PULSE 70; RESP 18; O2SAT 98
[2025-03-11 19:59] VITALS: O2SAT 97
== END 2025-03-11 20:00 | disposition home or self-care (01) ==
PROVIDERS: Emergency Provider Physician Assistant; PCP Family Medicine
DX: A31.0 Pulmonary mycobacterial infection (principal); J44.9 Chronic obstructive pulmonary disease, unspecified; Z79.82 Long term (current) use of aspirin; E55.9 Vitamin D deficiency, unspecified; E53.8 Deficiency of other specified B group vitamins; I73.00 Raynaud's syndrome without gangrene; Z99.81 Dependence on supplemental oxygen; K21.9 Gastro-esophageal reflux disease without esophagitis; I10 Essential (primary) hypertension; E78.5 Hyperlipidemia, unspecified; Z87.891 Personal history of nicotine dependence; Z20.822 Contact with and (suspected) exposure to COVID-19
CPT/HCPCS: 36415; 71046; 80053; 85025; 87637; 93005; 99283